=== PATIENT | female | born 1960 | race Caucasian/White ===

== ENCOUNTER 2024-08-19 13:23 | Inpatient (IN) | payer OTHER, SELFPAY ==
[2024-08-19 13:25] VITALS: BP 119/79; PULSE 82; RESP 16; TEMP 37.1; O2SAT 96; BMI 40.3
--- NOTE | 2024-08-19 13:25 | ED_ITS ---
HPI - Psych General Chief Complaint: Psychiatric Symptoms Stated Complaint: depression Time Seen by Provider: 08/19/24 13:39 Source: patient, RN notes reviewed and old records reviewed Mode of arrival: ambulatory History of Present Illness ED Provider: Shirin Santana PA-C [facility] Narrative: 64-year-old female with a past medical history anxiety, asplenia, bipolar, CVA, COPD on chronic 4L NC, depression, DVT, fibromyalgia, GERD, PE, HLD, HTN, presenting to the ED complaining of increasing depression with suicide ideations and plan to overdose on pills x few weeks. Patient was evaluated at [facility] on 08/15/2024, medically cleared, evaluated by CARDIAC EXERCISE PHYSIOLOGIST and made voluntary inpatient bed search, however was bed searching from home and told to come to [facility] as we have a bed available. Denies homicidal ideations, auditory/visual hallucinations, EtOH or illicit drug use. Related Data Allergies Allergy/AdvReac Type Severity Reaction Status Date / Time Penicillins Allergy Mild RASH Unverified 08/19/24 13:28 Review of Systems Review of Systems: Yes all other systems are reviewed and are negative Constitutional: Constitutional: Reports as per HPI [facility] Past Medical History Attestation statement: The following information was validated with the patient. Source: old records reviewed Social History Social History Advance Directives: Yes Advance Directives Information Provided: Yes Advance Directives on File: No Physical Exam Vital Signs: Vital Signs: Last Vital Signs Temp 98.8 F 08/19/24 13:25 Pulse 82 08/19/24 13:25 Resp 16 08/19/24 13:25 BP 119/79 08/19/24 13:25 Pulse Ox 96 08/19/24 13:25 O2 Del Method Nasal Cannula 08/19/24 13:25 Oxygen Flow Rate 4 08/19/24 13:25 BMI result Body Mass Index 40.3 Const: General: cooperative, healthy appearing and no acute distress Orientation/consciousness: patient oriented x3 Limitations: no limitations HEENT: Head: Yes normal to inspection and Yes atraumatic Ears: hearing grossly normal bilaterally General nose exam: Normal external nose present Face and sinus: Yes normal facial exam Eyes: General: appearance normal, both eyes and all related structures EOM: EOMs intact bilaterally Neck: Neck: Yes normal visual inspection and Yes no meningeal signs Resp: Effort & Inspection: normal respiratory effort and no respiratory distress Auscultation: clear to auscultation bilaterally Cardio: Rate: regular rate Heart sounds: S1 normal heart sound present and S2 normal heart sound present Skin: Rashes: no rashes Wounds: no wounds Neuro: General: patient oriented x3, tone normal, no meningeal signs and CN's II-XI intact bilaterally Cranial nerves: Yes CN's II-XII intact bilaterally Gait exam (Neuro): Normal gait present Extrem: General: Yes normal to inspection Psych: Thought content: Suicidality present, no homicidality and Depressive thoughts present Course Course Course Narrative: This is a rapid medical exam performed by Ree Cummings NP: Additional HPI, ROS, PE not included below will be deferred to primary provider. Patient is a 64-year-old female presenting with complaint of depression. Meds managed by PCP. Admits to thoughts of suicidal ideation, denies homicidal ideation. States has been thinking about often recently. On O2 @ 4lpm at baseline. Plan: patient is expected on [facility] psych unit, chargemaster analyst aware of plan -[id number]-- ED care transferred to [facility] pending Inpatient [facility] transfer Medical Decision Making Medical Decision Making [facility] Narrative: 64-year-old female with a past medical history anxiety, asplenia, bipolar, CVA, COPD on chronic 4L NC, depression, DVT, fibromyalgia, GERD, PE, HLD, HTN, presenting to the ED complaining of increasing depression with suicide ideations and plan to overdose on pills x few weeks. On exam vital signs stable, NAD, nontoxic appearing, + SI with plan, depressed. Patient has [facility] psych bed available on our unit. Medically cleared a few days ago at [facility], records reviewed Laura Tran & agree with medical clearance. Low suspicion for organic causes. Plan: Inpatient admission Physician observation initiated at 13:52 pending patient transfer to inpatient unit Please refer to course for remaining clinical decision making, interpretation of labs/imaging results, and discussions with consultants and/or family members. Differential Diagnosis Differential Diagnoses: The differential diagnosis associated with the presentation includes As above Admission/Observation Consideration of admission/observation: Escalation of care including admission/observation considered Consult Healthcare Provider Management of the patient was discussed with: Behavioral Health Provider Lab Data [facility] Lab Attestation statement: I reviewed the patient's lab results. Independent Historian Clinical information obtained from an independent historian. History obtained from or confirmed by: Other External Record Review External record reviewed: Inpatient record, Office record, Outpatient record, Prior outpatient labs, Prior outpatient radiology, Primary care record and Outside ED record Tests considered The following testing was considered but not selected: As above Social Determinants Patient?s care significantly limited by Social Determinants of Health including: Problems related to primary support group and Other Social Determinant of Health Discharge Plan Discharge Clinical Impression: Suicidal ideation, Depression Patient Disposition: Admitted As Inpatient Print Language: Armenian
[2024-08-19 17:14] VITALS: BP 129/74; PULSE 78; RESP 16; TEMP 5445.5; TEMP 9834; O2SAT 94
[2024-08-19 17:16] VITALS: BMI 38.3
--- OUTSIDE RECORDS SUMMARY | 2024-08-19 17:39 | XMS_ITS | Encounter Summary ---
Author Organization [facility] Address [address] [place] [address] Care Team Providers Care Vibratory Pile Driver Name Role Phone Unavailable Primary Care Provider Unavailabl e Encounter Details Date Type Department Care Team (Latest Contact Info) Description 12/09/2021 Abstract [facility] CONVERSIONS Dental, Provider, DDS Social History Tobacco Use Types Packs/Day Years Used Date Smoking Tobacco: Never Assessed Comments Unknown Sex and Gender Information Value Date Recorded Sex Assigned at Choose not to disclose 3:52 PM EST Legal Sex Female 8:33 PM EDT Gender Identity Choose not to disclose 3 3:52 PM EST Sexual Orientation Choose not to disclose 2022 3:52 PM EST documented as of this encounter Plan of Treatment Not on file documented as of this encounter Visit Diagnoses Not on filedocumented in this encounter
--- OUTSIDE RECORDS SUMMARY | 2024-08-19 17:39 | XMS_ITS | Clinical Summary ---
Author Organization [facility] Address [address] [place] [address] Care Team Providers Care Design Verification Engineer Name Role Phone Unavailable Primary Care Provider Unavailabl e Allergies Active Allergy Reactions Criticality Noted Date Comments Penicillins Rash Low 06/02/2024 Medications ASPIRIN 81 MG chewable tablet 1 tablet in the morning. Active atorvastatin (Lipitor) 80 MG tablet 9 Active bumetanide (Bumex) 1 MG tablet 3 Active FLUoxetine (PROzac) 20 MG capsule Take 20 mg by mouth Once per day. 4 Active gabapentin (Neurontin) 300 MG capsule 7 Active melatonin 3 MG tablet Take by mouth. Activ e metFORMIN (Glucophage) 500 MG tablet Take 500 mg by mouth with breakfast and with evening meal. Active metoprolol succinate XL (Toprol-XL) 25 MG 24 hr tablet 4 Active OXcarbazepine (Trileptal) 300 MG tablet Take 300 mg by mouth 2 times daily. 3 Active pantoprazole (ProtoNix) 40 MG EC tablet Take 40 mg by mouth Once per day. 4 Active potassium chloride ER (Micro-K) 10 MEQ ER capsule Take 10 mEq by mouth 2 times daily. Active QUEtiapine XR (SEROquel XR) 200 MG 24 hr tablet 9 Active traMADol (Ultram) 50 MG tablet Take 50 mg by mouth. 4 Active apixaban (Eliquis) 5 MG tablet Take 5 mg by mouth 2 times daily. Active tiZANidine (Zanaflex) 4 MG capsule Take 4 mg by mouth 3 times daily. Active clonazePAM (KlonoPIN) 1 MG tablet Take by mouth 2 times daily. Active phenazopyridine (Pyridium) 200 MG tablet Take 200 mg by mouth if needed in the morning, at noon, and at bedtime for bladder spasms. Active Encounters Date Type Department Care Team Description 06/02/2024 10:00 AM EST Office Visit [facility] [address] [place] [address] Darleen Adams LLD from Last 3 Months Social History Tobacco Use Types Packs/Day Years Used Date Smoking Tobacco: Never Assessed Comments Unknown Sex and Gender Information Value Date Recorded Sex Assigned at Choose not to disclose 3:52 PM EST Legal Sex Female 8:33 PM EDT Gender Identity Choose not to disclose 3:52 PM EST Sexual Orientation Choose not to disclose 2022 3:52 PM EST Last Filed Vital Signs Vital Sign Reading Time Taken Comments Blood Pressure 112/91 09/07/2021 11:00 AM EDT Pulse - - Temperature - - Respiratory Rate - - Oxygen Saturation - - Inhaled Oxygen Concentration - - Weight - - Height - - Body Mass Index - - Plan of Treatment Health Maintenance Due Date Last Done Comments CT Colonography 1962 Colonoscopy 1962 Colorectal Cancer Screening 1962 Depression Screening 1962 FIT DNA/Cologuard 1962 FIT 1962 FOBT 1962 HIV Screening 1962 Lipid Panel 1962 SDOH Screening 1962 Sigmoidoscopy 1962 Meningococcal B Vaccine (1 of 4 - Increased Risk) 1972 Alcohol/Substance Use Screening 1974 Tobacco Screening 1974 Hepatitis C Screening 1980 Pap Smear 1983 Cervical Cancer Screening 1992 HPV/Cotest 1992 Mammogram 2002 Zoster Vaccines (1 of 2) 2012 Dental X-Ray: Full Mouth 04/16/2015 04/15/2012, 11/23 Dental X-Ray: Bitewings 06/09/2022 06/08/20 21, 04/15/2012, 12/11/2003 Dental Oral Exam 06/11/2022 12/09/2021, , 04/23/2012, Additional history exists Dental Prophylaxis 06/11/2022 12/09/2021, 1 08/09/2020, 04/23/2012 RSV Patients and Patients Aged 60 years or older (1 - Risk 60-74 years 1-dose series) 2022 Meningococcal Vaccine (2 - Risk 2-dose series) 06/29/2023 05/04/2023 COVID-19 Vaccine ( season) 2024 04/05/2023, 04/29/2021, 08/03/2020, Additional history exists Influenza Vaccine (#1) 2024 , 04/04/2022, 04/29/2021, Additional history exists DTaP/Tdap/Td Vaccines (3 - Td or Tdap) 08/09/2028 08/09/2018, 05/12/2008 HIB Vaccines Completed 05/04/2023 Pneumococcal Vaccine: 50+ Years Completed 05/04/2023, 04/21/2017, 06/25/2007 Pneumococcal Vaccine: Pediatrics (0 to 5 Years) and At-Risk Patients (6 to 49) Years) Completed 05/04/2023, 04/21/2017, 06/25/2007 HPV Vaccines Aged Out No longer eligi ble based on patient's age to complete this topic Hepatitis A Vaccines Aged Out No long er eligible based on patient's age to complete this topic Hepatitis B Vaccines Aged Out No long er eligible based on patient's age to complete this topic IPV Vaccines Aged Out No longer eligi ble based on patient's age to complete this topic RSV under 20 months Aged Out No longe r eligible based on patient's age to complete this topic Rotavirus Vaccines Aged Out No longer eligible based on patient's age to complete this topic Procedures Procedure Name Priority Date/Time Associated Diagnosis Comments CASE PRESENTATION, DETAILED AND EXTENSIVE TREATMENT PLANNING Routine 06/02/2024 10:00 AM EST LIMITED ORAL EVALUATION - PROBLEM FOCUSED Routine 06/02/2024 10:00 AM EST PROPHYLAXIS - ADULT Routine 12/09/2021 1 2:00 AM EDT PERIODIC ORAL EVALUATION - ESTABLISHED PATIENT Routine 12/09/2021 12:00 AM EDT BITEWINGS - 2 RADIOGRAPHIC IMAGES Routine 06/08/2021 12:00 AM EST INTRAORAL - COMPLETE SERIES OF RADIOGRAPHIC IMAGES Routine 04/15/2012 12:00 AM EDT from Last 3 Months or Most Recently Relevant to Health Maintenance Insurance [facility] MEDICA[facility] STAND ADULT
--- OUTSIDE RECORDS SUMMARY | 2024-08-19 17:39 | XMS_ITS | Encounter Summary ---
Author Organization [facility] Address [address] [place] [address] Care Team Providers Care Director Of Medical Staff Services Name Role Phone Unavailable Primary Care Provider Unavailabl e Encounter Details Date Type Department Care Team (Latest Contact Info) Description 06/08/2021 Abstract [facility] CONVERSIONS Dental, Provider, DDS Social [...]
--- OUTSIDE RECORDS SUMMARY | 2024-08-19 17:39 | XMS_ITS | Clinical Summary ---
Author Organization [facility] Address [address] [place] [address] Care Team Providers Care Interpretive Program Coordinator Name Role Phone Eleazar Gleason MD Primary Care Provider [phone] Allergies Active Allergy Reactions Criticality Noted Date Comments Ciprofloxacin High 06/28/2021 Other reaction(s): OTHER, Rash Skin peeled off back Penicillins Rash High 12/20/2017 remote Sertraline 12/31/2022 Medications Medication Sig Dispensed Refills Start Date End Date Status triamcinolone (KENALOG) 0.5 % cream 0 Active traMADol (ULTRAM) 50 MG tablet Take 50 mg by mouth. 0 01/09/2024 Ac tive terconazole (TERAZOL 3) 0.8 % vaginal cream Insert 1 applicatorful every day by vaginal route as directed for 7 days. 0 Active sucralfate (CARAFATE) 1 g tablet 0 Active QUEtiapine (SEROquel XR) 200 MG 24 hr tablet 0 05/09/2023 Active potassium chloride (MICRO-K) 10 MEQ CR capsule Take 1 capsule (10 mEq total) by mouth. 0 Active polyethylene glycol (GLYCOLAX) 17 GM/SCOOP powder Take 17 g by mouth. 0 11/07/2023 Active pantoprazole (PROTONIX) 40 MG tablet Take 1 tablet (40 mg total) by mouth daily. 0 11/07/2023 Active OXcarbazepine (TRILEPTAL) 300 MG tablet Take 1 tablet (300 mg total) by mouth 2 (two) times a day. 0 01/09/2024 Active nicotine (NICODERM CQ) 21 MG/24HR Place 1 patch onto the skin. 0 11/07/2023 Active metoprolol succinate (TOPROL-XL) 24 hr tablet 25 mg 0 01/09/2024 Active melatonin 3 MG TABS tablet Take by mouth. 0 Active LORazepam (ATIVAN) 1 MG tablet 0 11/06/2023 Active gabapentin (NEURONTIN) 300 MG capsule 0 08/07/2022 Active Fluticasone-Umeclid in-Vilant (Trelegy Ellipta) 100-62.5-25 MCG/ACT AEPB INHALE 1 PUFF INTO THE LUNGS EVERY 24 HOURS. DOSES SHOULD BE TAKEN AT LEAST 24 HOURS APART. 0 09/05/2023 Active acetaminophen (TYLENOL EXTRA STRENGTH) 500 MG tablet Take 1 tablet (500 mg total) by mouth every 6 (six) hours as needed. 0 Active albuterol (Ventolin HFA) 108 (90 Base) MCG/ACT inhaler 0 Active apixaban (Eliquis) 5 MG TABS tablet 0 05/09/2023 Active Aspirin 81 MG CAPS Take 81 mg by mouth. 0 01/09/2024 Active atorvastatin (LIPITOR) tablet 80 mg 0 04/23/2019 Active bumetanide (BUMEX) 1 MG tablet 0 10/19/2022 Active Cholecalciferol 50 MCG (2000 UT) TABS Take by mouth. 0 Ac tive divalproex (DEPAKOTE) 500 MG 24 hr tablet Take 1 tablet (500 mg total) by mouth every night at bedtime. 0 Active FLUoxetine (PROzac) 20 MG capsule Take 1 capsule (20 mg total) by mouth daily. 0 07/29/2023 Active metFORMIN (GLUCOPHAGE) tablet 500 mg Take 1 tablet (500 mg total) by mouth 2 (two) times a day with meals. 0 Active Active Problems Problem Noted Date Diagnosed Date Iron deficiency anemia, unspecified 04/14/2024 Social History Tobacco Use Types Packs/Day Years Used Date Smoking Tobacco: Never Assessed Sex and Gender Information Value Date Recorded Sex Assigned at Not on file Gender Identity Not on file Sexual Orientation Not on file Job Start Date Occupation Industry Not on file Not on file Not on file Last Filed Vital Signs Vital Sign Reading Time Taken Comments Blood Pressure 143/78 04/18/2024 11:10 AM EDT Pulse 88 04/18/2024 11:10 AM EDT Temperature 36.3 ??C (97.3 ??F) 04/18/2024 11:10 AM E DT Respiratory Rate 18 04/18/2024 11:10 AM EDT Oxygen Saturation 96% 04/18/2024 11:10 AM EDT Inhaled Oxygen Concentration - - Weight - - Height - - Body Mass Index - - Plan of Treatment Health Maintenance Due Date Last Done Comments Hepatitis C Screening 1962 COVID-19 Vaccine (#1) 01/05/1963 Depression Screening 1974 Preventative Health Evaluation 1980 Cervical Cancer Screening (Pap Smear) 1983 Colon Cancer Screening (Colonoscopy) 2007 Breast Cancer Screening (Mammogram) 2012 Shingrix-Zoster Vaccine (1 of 2) 2012 DTap / Tdap / Td (2 - Td or Tdap) 05/12/2018 05/12/2008 Influenza Vaccine (#1) 2024 3, 04/04/2022, 04/29/2021, Additional history exists RSV Adult > 60+ Yrs or (1 - 1-dose 75+ series) 2037 Pneumococcal Vaccine Aged Out 05/04/2023, 04/21/2017, 06/25/2007 No longer eligible based on patient's age to complete this topic Hepatitis B Vaccines Aged Out No long er eligible based on patient's age to complete this topic RSV Ped < 20 months Aged Out No longe r eligible based on patient's age to complete this topic Care Teams Interpretive Program Coordinator Relationship Specialty Start Date End Date Eelazar Gleason MD PCP - General Rheumatology 04/11/24
--- OUTSIDE RECORDS SUMMARY | 2024-08-19 17:40 | XMS_ITS ---
Author Organization [facility] Address [address] [place] [address] Care Team Providers Care Hospitality Workers Name Role Phone Dede Pimentel OR FIRST ASSIST REGISTERED NURSE Primary Care Provider [phone] Program of [facility] the Elderly Status:Enrolled (Active) Start date:09/24/2023 Enrollment date:09/24/2023 Related social drivers of health:Housing Instability, Financial Risk, Transportation, Social Isolation, Food Risk Overview This episode will track PACE documentation. Case Team Name Relationship Phone Dede Pimentel OR FIRST ASSIST REGISTERED NURSE Nurse Practitioner [phone] Reji Weems Recreational Therapist Sandy Keith RN Frame Table Operator Jesi Larkin RN Specialty Cook Horace Nagy RD Dietitian Arnav Thomas PT Physical Therapist Ady Briseno [facility] Mariah Le Pan Puller Priyanka Duarte OT Occupational Therapist Charisse Ramos RN Registered Nurse Yaritza Oden MD Primary Care Provider [phone] Continued Care and Services Coordination
--- OUTSIDE RECORDS SUMMARY | 2024-08-19 17:40 | XMS_ITS | Encounter Summary ---
Author Organization [facility] Address [address] [place] [address] Care Team Providers Care Director Of Safety Name Role Phone Eleazar Gleason MD Primary Care Provider [phone]- [phone] Encounter Details Date Type Department Care Team (Latest Contact Info) Description 04/14/2024 10:30 AM EDT Hospital Encounter TH HISTORIC ENCOUNTERS EASTERN CONVERSION ONLY Iron deficiency anemia, unspecified Social History Tobacco Use Types Packs/Day Years Used Date Smoking Tobacco: Every Day Smokeless Tobacco: Never Comments:Packs per day : 6 Calculated quantity/packs per year: 2190 Alcohol Use Standard Drinks/Week Comments Not Currently 1 (1 standard drink = 0.6 oz pur e alcohol) Comments Unknown Sex and Gender Information Value Date Recorded Sex Assigned at Not on file Legal Sex Female 11:06 AM EDT Gender Identity Not on file Sexual Orientation Not on file documented as of this encounter Progress Notes [...] appetite for lunch. Aware of 30minute post internal medicine nurse observation period for first infusion. 1300 - Observation period completed - patient with no issues noted - IV flushed and removed intact - patient has next appt in place. Stable upon discharge - [employer] van here for ride home. documented in this encounter Plan of Treatment Upcoming Encounters Date Type Department Care Team (Late st Contact Info) Description 08/25/2024 9:00 AM EST PACE Attendance/Day Center [facility] [address] [place] [phone] 08/27/2024 9:00 AM EST [facility] Attend[facility] [place] [facility] [address] [place] [phone] 09/01/2024 9:00 AM EDT PACE Attendance[facility] [facility] [place] [facility] [address] [place] [phone] 09/03/2024 9:00 AM EDT [facility] [place] [facility] [address] [place] [phone] 09/08/2024 9:00 AM EDT PACE Attendance/[facility] [place] [facility] [place] [facility] [address] [place] [phone] 09/10/2024 9:00 AM EDT PACE Attendance[facility] [place] [facility] [address] [place] [phone] 09/15/2024 9:00 AM EDT PACE Attendance/Day [facility] [place] [facility] [address] [place] [phone] 09/17/2024 9:00 AM EDT PACE Attendance/Day Center [facility] [address] [place] [phone] 09/22/2024 9:00 AM EDT [facility] [address] [place] [phone] 09/24/2024 9:00 AM EDT [facility] Day Center [address] [place] [address] 09/29/2024 9:00 AM EDT PACE Attendance/Day Center [facility] Day [facility] [address] [place] [address] 09/29/2024 11:00 AM EDT Appointment [facility] CT Scan [address] [place] [address] 10/01/2024 9:00 AM EDT PACE Attendance/Day Center [facility] Day [facility] [address] [place] [address] 10/06/2024 9:00 AM EDT [facility] Day Center [address] [place] [address] 10/06/2024 11:00 AM EDT Appointment [facility] Ultrasound [address] [place] [address] 10/08/2024 9:00 AM EDT [facility] Day Center [address] [place] [address] 10/13/2024 9:00 AM EDT [facility] Day Center [address] [place] [address] 10/15/2024 9:00 AM EDT [facility] Day Center [address] [place] [address] 10/20/2024 9:00 AM EDT PACE Attendance/Day Center [facility] Day Center [address] [place] [address] 10/22/2024 9:00 AM EDT PACE Attendance[facility] [place] [facility] [address] [place] [address] 10/27/2024 9:00 AM EDT P[facility] Attend[facility] [place] [facility] [address] [place] [phone] 10/29/2024 9:00 AM EDT [facility] [place] [facility] [address] [place] [phone] 11/03/2024 9:00 AM EDT [facility] [place] [facility] [address] [place] [phone] 11/05/2024 9:00 AM EDT [facility] [place] [facility] [address] [place] [phone] 11/10/2024 9:00 AM EDT [facility] [place] [facility] [address] [place] [phone] 11/10/2024 9:45 AM EDT Office Visit [facility] [address] [place] [phone] Gemini Simmons MD [address] [facility] [address] [place] [phone] 11/12/2024 9:00 AM EDT PACE Attendance/Day Center [facility] [address] [place] [phone] 11/17/2024 9:00 AM EDT PACE Attendance/Day Center [facility] [address] [place] [phone] 11/19/2024 9:00 AM EDT P[facility] Attendance[facility] [place] [facility] [address] [place] [phone] 11/24/2024 9:00 AM EDT P[facility] Attendance[facility] [place] [facility] [address] [place] [address] 11/26/2024 9:00 AM EDT P[facility] Attendance[facility] [place] [facility] [address] [place] [address] 12/01/2024 9:00 AM EDT [facility] [place] [facility] [address] [place] [phone] 12/03/2024 9:00 AM EDT [facility] Att[facility] [place] [facility] [address] [place] [phone] 12/08/2024 9:00 AM EDT [facility] Att[facility] [place] [facility] [address] [place] [phone] 12/10/2024 9:00 AM EDT [facility] Att[facility] [place] [facility] [address] [place] [phone] 12/15/2024 9:00 AM EDT [facility] Att[facility] [place] [facility] [address] [place] [phone] 12/17/2024 9:00 AM EDT [facility] [place] [facility] [address] [place] [phone] 12/22/2024 9:00 AM EDT [facility] Att[facility] [place] [facility] [address] [place] [phone] 12/24/2024 9:00 AM EDT [facility] Att[facility] [place] [facility] [address] [place] [phone] 12/29/2024 9:00 AM EDT [facility] Att[facility] [place] [facility] [address] [place] [phone] 12/31/2024 9:00 AM EDT P[facility] Attendance[facility] [place] [facility] [facility] [address] [place] [address] 01/05/2025 9:00 AM EDT [facility] [place] [facility] [facility] [address] [place] [address] 01/07/2025 9:00 AM EDT [facility] [place] [facility] [address] [place] [address] 01/12/2025 9:00 AM EDT [facility] Att[facility] [place] [facility] [address] [place] [address] 01/14/2025 9:00 AM EDT [facility] Attend[facility] [place] [facility] [facility] [address] [place] [address] 01/19/2025 9:00 AM EDT [facility] [place] [facility] [address] [place] [phone] 01/21/2025 9:00 AM EDT [facility] Att[facility] [place] [facility] [address] [place] [phone] 01/26/2025 9:00 AM EDT [facility] [place] [facility] [address] [place] [phone] 01/28/2025 9:00 AM EDT [facility] Att[facility] [place] [facility] [address] [place] [phone] 02/02/2025 9:00 AM EDT [facility] Att[facility] [place] [facility] [address] [place] [phone] 02/04/2025 9:00 AM EDT [facility] Attend[facility] [place] [facility] [address] [place] [phone] 02/09/2025 9:00 AM EDT [facility] Attend[facility] [place] [facility] [address] [place] [phone] 02/11/2025 9:00 AM EDT [facility] Attend[facility] [place] [facility] [address] [place] [phone] 02/16/2025 9:00 AM EDT [facility] Att[facility] [place] [facility] [address] [place] [phone] 02/18/2025 9:00 AM EDT [facility] Attend[facility] [place] [facility] [address] [place] [phone] 02/23/2025 9:00 AM EDT [facility] Attend[facility] [place] [facility] [address] [place] [phone] 02/25/2025 9:00 AM EDT [facility] Attend[facility] [place] [facility] [address] [place] [phone] 03/02/2025 9:00 AM EDT [facility] Attend[facility] [place] [facility] [address] [place] [phone] 03/04/2025 9:00 AM EDT [facility] Att[facility] [place] [facility] [address] [place] [phone] 03/09/2025 9:00 AM EDT [facility] Attend[facility] [place] [facility] [address] [place] [phone] 03/11/2025 9:00 AM EDT [facility] Attend[facility] [place] [facility] [address] [place] [phone] 03/16/2025 9:00 AM EDT [facility] Attend[facility] [place] [facility] [address] [place] [phone] 03/18/2025 9:00 AM EDT [facility] Attend[facility] [place] [facility] [address] [place] [phone] 03/23/2025 9:00 AM EDT [facility] Attendance[facility] [place] [facility] [address] [place] [address] 03/25/2025 9:00 AM EDT [facility] Attend[facility] [place] [facility] [address] [place] [address] 03/30/2025 9:00 AM EDT [facility] Attend[facility] [place] [facility] [address] [place] [phone] 04/01/2025 9:00 AM EDT [facility] Att[facility] [place] [facility] [address] [place] [phone] 04/06/2025 9:00 AM EDT [facility] Attend[facility] [place] [facility] [address] [place] [phone] 04/08/2025 9:00 AM EDT [facility] Attend[facility] [place] [facility] [address] [place] [phone] 04/13/2025 9:00 AM EDT [facility] Attend[facility] [place] [facility] [address] [place] [phone] 04/15/2025 9:00 AM EDT [facility] Attend[facility] [place] [facility] [address] [place] [phone] 04/20/2025 9:00 AM EDT [facility] Attend[facility] [place] [facility] [address] [place] [phone] 04/22/2025 9:00 AM EDT [facility] Attend[facility] [place] [facility] [address] [place] [phone] 04/27/2025 9:00 AM EST P[facility] Attendance[facility] [place] [facility] [address] [place] [phone] 04/29/2025 9:00 AM EST P[facility] Attendance[facility] [place] [facility] [address] [place] [address] 05/04/2025 9:00 AM EST [facility] Attend[facility] [place] [facility] [facility] [address] [place] [address] 05/06/2025 9:00 AM EST P[facility] Attend[facility] [place] [facility] [facility] [address] [place] [address] 05/11/2025 9:00 AM EST P[facility] Att[facility] [place] [facility] [address] [place] [phone] 05/13/2025 9:00 AM EST [facility] [place] [facility] [address] [place] [phone] 05/18/2025 9:00 AM EST P[facility] Attend[facility] [place] [facility] [address] [place] [phone] 05/20/2025 9:00 AM EST P[facility] Attend[facility] [place] [facility] [address] [place] [phone] 05/25/2025 9:00 AM EST P[facility] Attend[facility] [place] [facility] [address] [place] [phone] 05/27/2025 9:00 AM EST P[facility] Attend[facility] [place] [facility] [address] [place] [phone] 06/01/2025 9:00 AM EST P[facility] Att[facility] [place] [facility] [address] [place] [phone] 06/03/2025 9:00 AM EST P[facility] Att[facility] [place] [facility] [address] [place] [phone] 06/08/2025 9:00 AM EST [facility] [place] [facility] [address] [place] [address] 06/10/2025 9:00 AM EST P[facility] Attendance[facility] [place] [facility] [facility] [address] [place] [address] 06/15/2025 9:00 AM EST P[facility] Attend[facility] [place] [facility] [address] [place] [address] 06/17/2025 9:00 AM EST P[facility] Attend[facility] [place] [facility] [address] [place] [address] 06/22/2025 9:00 AM EST [facility] Attend[facility] [place] [facility] [address] [place] [phone] 06/24/2025 9:00 AM EST [facility] Att[facility] [place] [facility] [address] [place] [phone] 06/29/2025 9:00 AM EST [facility] Att[facility] [place] [facility] [address] [place] [phone] 07/01/2025 9:00 AM EST [facility] Att[facility] [place] [facility] [address] [place] [phone] 07/06/2025 9:00 AM EST [facility] Att[facility] [place] [facility] [address] [place] [phone] 2025 9:00 AM EST [facility] Attend[facility] [place] [facility] [address] [place] [phone] 07/13/2025 9:00 AM EST [facility] Attend[facility] [place] [facility] [address] [place] [address] 07/15/2025 9:00 AM EST [facility] Attend[facility] [place] [facility] [address] [place] [address] 07/20/2025 9:00 AM EST [facility] [place] [facility] [address] [place] [phone] 07/22/2025 9:00 AM EST P[facility] Attendance[facility] [place] [facility] [address] [place] [phone] 07/27/2025 9:00 AM EST [facility] [place] [facility] [address] [place] [phone] 07/29/2025 9:00 AM EST [facility] [address] [address] 08/03/2025 9:00 AM EST [facility] [address] [phone] documented as of this encounter Procedures Procedure Name Priority Date/Time Associated Diagnosis Comments ..MISCELLANEOUS REFERENCE LAB TEST 04/14/2024 documented in this encounter Results * Miscellaneous reference lab test (04/14/2024) us Provider Onbase LAB BLOOD ORDERABLES Final Re sult documented in this encounter Visit Diagnoses Diagnosis Iron deficiency anemia, unspecified documented in this encounter Care Teams Director Of Safety Relationship Specialty Start Date End Date Eleazar Gleason MD [phone] [address] PCP - General 04/11/24 05/01/24 documented as of this encounter
--- OUTSIDE RECORDS SUMMARY | 2024-08-19 17:40 | XMS_ITS | Encounter Summary ---
Author Organization [facility] Address [address] [place] [address] Care Team Providers Care Bus And Rail Operator Name Role Phone Eleazar Gleason MD Primary Care Provider [phone] Encounter Details Date Type Department Care Team (Late Contact Info) Description 04/16/2024 11:39 AM EDT Hospital Encounter TH HISTORIC ENCOUNTERS EASTERN CONVERSION ONLY Wale Pimentel, TAYA [address] [facility] [address] [place] [address] Social History Tobacco Use Types Packs/Day Years [...] on file documented as of this encounter Plan of Treatment Upcoming Encounters Date Type Department Care Team (Late Contact Info) Description 08/25/2024 9:00 AM EST PACE Attendance/Day Center [employer] [facility] [address] [place] [phone] 08/27/2024 9:00 AM EST PACE Attendance/Day Center [employer] [facility] [address] [place] [address] 09/01/2024 9:00 AM EDT PACE Attendance/Day Center [facility] [place] [facility] [address] [place] [address] 09/03/2024 9:00 AM EDT [facility] [place] [facility] [address] [place] [address] 09/08/2024 9:00 AM EDT [facility] [address] [place] [address] 09/10/2024 9:00 AM EDT [facility] [place] [facility] [address] [place] [phone] 09/15/2024 9:00 AM EDT [facility] [address] [place] [phone] 09/17/2024 9:00 AM EDT [facility] [address] [place] [phone] 09/22/2024 9:00 AM EDT [facility] [place] [facility] [address] [place] [phone] 09/24/2024 9:00 AM EDT [facility] [place] [facility] [address] [place] [phone] 09/29/2024 9:00 AM EDT [facility] [place] [facility] [address] [place] [address] 09/29/2024 11:00 AM EDT Appointment [facility] CT Scan [address] [place] [address] 10/01/2024 9:00 AM EDT [facility] [place] [facility] [address] [place] [phone] 10/06/2024 9:00 AM EDT [facility] [place] [facility] [address] [place] [address] 10/06/2024 11:00 AM EDT Appointment [address] [phone] 10/08/2024 9:00 AM EDT [facility] [address] [place] [phone] 10/13/2024 9:00 AM EDT [facility] [place] [facility] [address] [place] [address] 10/15/2024 9:00 AM EDT [facility] [address] [place] [phone] 10/20/2024 9:00 AM EDT [facility] [address] [place] [phone] 10/22/2024 9:00 AM EDT [facility] [place] [facility] [address] [place] [phone] 10/27/2024 9:00 AM EDT [facility] [place] [facility] [address] [place] [phone] 10/29/2024 9:00 AM EDT [facility] [place] [facility] [address] [place] [phone] 11/03/2024 9:00 AM EDT [place] Att[place] [employer] [facility] [place] [facility] [address] [place] [phone] 11/05/2024 9:00 AM EDT [place] [employer] [facility] [place] [facility] [address] [place] [phone] 11/10/2024 9:00 AM EDT [facility] [place] [facility] [address] [place] [phone] 11/10/2024 9:45 AM EDT Office Visit [facility] [address] [place] [address] Gemini Simmons MD [address] [facility] [address] [place] [address] 11/12/2024 9:00 AM EDT PACE Attendance/[place] [employer] [facility] [place] [facility] [address] [place] [phone] 11/17/2024 9:00 AM EDT [facility] [place] [facility] [address] [place] [phone] 11/19/2024 9:00 AM EDT [facility] [place] [facility] [address] [place] [phone] 11/24/2024 9:00 AM EDT [facility] [place] [facility] [address] [place] [phone] 11/26/2024 9:00 AM EDT [facility] [place] [facility] [address] [place] [phone] 12/01/2024 9:00 AM EDT [facility] [place] [facility] [address] [place] [phone] 12/03/2024 9:00 AM EDT [facility] [place] [facility] [address] [place] [phone] 12/08/2024 9:00 AM EDT [facility] [place] [facility] [address] [place] [phone] 12/10/2024 9:00 AM EDT [facility] [place] [facility] [address] [place] [phone] 12/15/2024 9:00 AM EDT PACE Attendance/[facility] [place] [facility] [place] [facility] [address] [place] [address] 12/17/2024 9:00 AM EDT P[facility] Attendance[facility] [facility] [place] [facility] [address] [place] [address] 12/22/2024 9:00 AM EDT [facility] Attendance[facility] [place] [facility] [place] [facility] [address] [place] [address] 12/24/2024 9:00 AM EDT [facility] Att[facility] [place] [facility] [place] [facility] [address] [place] [phone] 12/29/2024 9:00 AM EDT [facility] Att[facility] [facility] [place] [facility] [address] [place] [phone] 12/31/2024 9:00 AM EDT P[facility] Att[facility]ance[facility] [facility] [place] [facility] [address] [place] [phone] 01/05/2025 9:00 AM EDT P[facility] Attendance[facility] [place] [facility] [address] [place] [phone] 01/07/2025 9:00 AM EDT [facility] Att[facility] [place] [facility] [place] [facility] [address] [place] [phone] 01/12/2025 9:00 AM EDT [facility] Att[facility] [place] [facility] [address] [place] [address] 01/14/2025 9:00 AM EDT P[facility] Attendance[facility] [place] [facility] [address] [place] [address] 01/19/2025 9:00 AM EDT [facility] Att[facility] [place] [facility] [place] [facility] [address] [place] [phone] 01/21/2025 9:00 AM EDT P[facility] Attendance[facility] [place] [facility] [address] [place] [address] 01/26/2025 9:00 AM EDT P[facility] Attendance[facility] [place] [facility] [place] [facility] [address] [place] [address] 01/28/2025 9:00 AM EDT P[facility] Attend[facility] [place] [facility] [place] [facility] [address] [place] [address] 02/02/2025 9:00 AM EDT [facility] Att[facility] [facility] [place] [facility] [address] [place] [phone] 02/04/2025 9:00 AM EDT PACE Attendance[facility] [facility] [place] [facility] [address] [place] [address] 02/09/2025 9:00 AM EDT P[facility] Attendance[facility] [place] [facility] [place] [facility] [address] [place] [phone] 02/11/2025 9:00 AM EDT P[facility] Attend[facility] [place] [facility] [place] [facility] [address] [place] [phone] 02/16/2025 9:00 AM EDT P[facility] Attendance[facility] [facility] [place] [facility] [address] [place] [phone] 02/18/2025 9:00 AM EDT P[facility] Attend[facility] [place] [facility] [place] [facility] [address] [place] [address] 02/23/2025 9:00 AM EDT P[facility] Attendance[facility] [place] [facility] [address] [place] [address] 02/25/2025 9:00 AM EDT P[facility] Att[facility] [place] [facility] [address] [place] [address] 03/02/2025 9:00 AM EDT PACE Attendance[facility] [place] [facility] [place] [facility] [address] [place] [address] 03/04/2025 9:00 AM EDT PACE Attendance[facility] [place] [facility] [place] [facility] [address] [place] [address] 03/09/2025 9:00 AM EDT P[facility] Attendance[facility] [place] [facility] [place] [facility] [address] [place] [address] 03/11/2025 9:00 AM EDT P[facility] Attend[facility] [place] [facility] [place] [facility] [address] [place] [phone] 03/16/2025 9:00 AM EDT P[place] Attendance[facility] [facility] [place] [facility] [address] [place] [address] 03/18/2025 9:00 AM EDT P[facility] Attendance[facility] [facility] [place] [facility] [address] [place] [address] 03/23/2025 9:00 AM EDT PACE Attendance[facility] [facility] [place] [facility] [address] [place] [phone] 03/25/2025 9:00 AM EDT P[place] Attendance[facility] [facility] [place] [facility] [address] [place] [phone] 03/30/2025 9:00 AM EDT PACE Attendance[facility] [facility] [place] [facility] [address] [place] [address] 04/01/2025 9:00 AM EDT P[facility] Attendance[facility] [place] [facility] [address] [place] [address] 04/06/2025 9:00 AM EDT P[facility] Attend[facility] [place] [facility] [address] [place] [phone] 04/08/2025 9:00 AM EDT P[facility] Attend[facility] [place] [facility] [address] [place] [address] 04/13/2025 9:00 AM EDT PACE Attendance[facility] [place] [facility] [address] [place] [address] 04/15/2025 9:00 AM EDT PACE Attendance[facility] [place] [facility] [address] [place] [address] 04/20/2025 9:00 AM EDT P[facility] Attend[facility] [place] [facility] [address] [place] [address] 04/22/2025 9:00 AM EDT P[facility] Attendance[facility] [place] [facility] [address] [place] [address] 04/27/2025 9:00 AM EST PACE Attendance[facility] [place] [facility] [address] [place] [address] 04/29/2025 9:00 AM EST P[facility] Attend[facility] [place] [facility] [place] [facility] [address] [place] [address] 05/04/2025 9:00 AM EST P[facility] Attend[facility] [place] [facility] [address] [place] [phone] 05/06/2025 9:00 AM EST PACE Attendance[facility] [place] [facility] [address] [place] [address] 05/11/2025 9:00 AM EST PACE Attendance[facility] [place] [facility] [address] [place] [address] 05/13/2025 9:00 AM EST PACE Attendance[facility] [place] [facility] [place] [facility] [address] [place] [address] 05/18/2025 9:00 AM EST PACE Attendance[facility] [place] [facility] [address] [place] [address] 05/20/2025 9:00 AM EST PACE Attendance[facility] [place] [facility] [address] [place] [address] 05/25/2025 9:00 AM EST P[facility] Attend[facility] [place] [facility] [place] [facility] [address] [place] [phone] 05/27/2025 9:00 AM EST PACE Attend[facility] [place] [facility] [place] [facility] [address] [place] [phone] 06/01/2025 9:00 AM EST P[facility] Attend[facility] [place] [facility] [place] [facility] [address] [place] [address] 06/03/2025 9:00 AM EST [facility] [place] [facility] [address] [place] [address] 06/08/2025 9:00 AM EST PACE Attendance[facility] [place] [facility] [place] [facility] [address] [place] [phone] 06/10/2025 9:00 AM EST PACE Attend[facility] [place] [facility] [address] [place] [address] 06/15/2025 9:00 AM EST P[facility] Attend[facility] [place] [facility] [address] [place] [address] 06/17/2025 9:00 AM EST PACE Attend[facility] [place] [facility] [place] [facility] [address] [place] [phone] 06/22/2025 9:00 AM EST P[facility] Attend[facility] [place] [facility] [address] [place] [phone] 06/24/2025 9:00 AM EST P[facility] Attend[facility] [place] [facility] [address] [place] [phone] 06/29/2025 9:00 AM EST PACE Attendance[facility] [place] [facility] [address] [place] [address] 07/01/2025 9:00 AM EST PACE Attendance[facility] [place] [facility] [address] [place] [address] 07/06/2025 9:00 AM EST P[facility] Attend[facility] [place] [facility] [address] [place] [address] 2025 9:00 AM EST PACE Attendance[facility] [place] [facility] [address] [place] [address] 07/13/2025 9:00 AM EST P[facility] Att[facility] [place] [facility] [address] [place] [phone] 07/15/2025 9:00 AM EST P[facility] Attend[facility] [place] [facility] [place] [facility] [address] [place] [address] 07/20/2025 9:00 AM EST PACE Attend[facility] [place] [facility] [address] [place] [address] 07/22/2025 9:00 AM EST P[facility] Attend[facility] [place] [facility] [place] [facility] [address] [place] [phone] 07/27/2025 9:00 AM EST PACE Attend[facility] [place] [facility] [address] [place] [address] 07/29/2025 9:00 AM EST PACE Attendance[facility] [place] [facility] [address] [place] [address] 08/03/2025 9:00 AM EST PACE Attend[facility] [place] [facility] [address] [place] [address] documented as of this encounter Procedures Procedure [...] PM EDT Narrative 04/16/2024 3:54 PM EDT [facility] Diagnostic Imaging Department [address] [place] [address] Patient: ??LUCILA GRFIFITHS ?/Age/Sex: 1960 - 63 - F Unit#: ??[id number] ? Location/Status: ??SPDIGEN/REG CLI ? Mnemonic/Ordering Site: ??SPINCERFLX/SPDI Ordering Physician: ??WALE PIMENTEL CR Spine Cervica W Obl Flex [...] C3-4 due to facet hypertrophy. Dictating Physician: ??BERTA MOCK MD Electronically Signed by: ??BERTA MOCK MD Dic Date/Time: ??04/16/24 1549 Sign date/Time: ??04/16/24 1557 Procedure Note Berta Mock MD - 04/22/2024 [facility] Diagnostic Imaging Department [address] [place] [address] Patient: LUCILA GRIFFITHS D.O.B./Age/Sex: 1960 - 63 - F Unit#: [id number] Location/Status: SPDIGEN/REG CLI Mnemonic/Ordering Site: SPINCERFLX/SPDI Ordering [...] Date/Time: 04/16/24 1549 Sign date/Time: 04/16/24 1554 us Wale Pimentel NP IMG XR PROCEDURES Final Resul t * CR SHOULDER LT MIN 2 VIEW (04/16/2024 3:49 PM EDT) Anatomical Region Laterality Modality Radiographic Edith ging 04/16/2024 12:2 2 PM EDT Narrative 04/16/2024 3:49 PM EDT [facility] Diagnostic Imaging Department [address] [place] [address] Patient: ??LUCILA GRIFFITHS ?/Age/Sex: 1960 - 63 - F Unit#: ??[id number] ? Location/Status: ??SPDIGEN/REG CLI ? Mnemonic/Ordering Site: ??SHOULDLT/SPDI Ordering Physician: ??WALE PIMENTEL CR Shoulder LT Min 2 View [...] No evidence of fracture. 2. Calcific tendinitis. [id number] Dictating Physician: ??BERTA MOCK MD Electronically Signed by: ??BERTA MOCK MD Dic Date/Time: ??04/16/24 1548 Sign date/Time: ??04/16/24 1549 Procedure Note Berta Mock MD - 04/22/2024 [facility] Diagnostic Imaging Department [address] [place], [place] [id number] Patient: DOMTYSONLUCILA Pichardo /Age/Sex: 1960 - 63 - F Unit#: [id number] Location/Status: SPDIGEN/REG CLI Mnemonic/Ordering Site: SHOULDLT/SPDI Ordering [...] No evidence of fracture. 2. Calcific tendinitis. [id number] Dictating Physician: BERTA MOCK MD Electronically Signed by: BERTA MOCK MD Dic Date/Time: 04/16/241547 Sign date/Time: 04/16/241548 Wale Pimentel ENGINEER CHIEF IMG XR PROCEDURES Final Resul t documented in this encounter Visit Diagnoses Not on filedocumented in this encounter Care Teams Bus And Rail Operator Relationship Specialty Start Date End Date Eleazar Gleason MD [address] [address] PCP - General 04/11/24 05/01/24 documented as of this encounter
--- OUTSIDE RECORDS SUMMARY | 2024-08-19 17:41 | XMS_ITS | Clinical Summary ---
Author Organization [facility] Address [address] [place] [address] Care Team Providers Care Sanitary Aide Name Role Phone Wale Pimentel FOUNDER / CEO Primary Care Provider [phone] Allergies Active Allergy Reactions Criticality Noted Date Comments Ciprofloxacin Other High 06/28/2021 Skin peeled off back Other reaction(s): OTHER, Rash Skin peeled off back Penicillins Rash High 12/20/2017 remote Sertraline 12/31/2022 Medications acetaminophen (TYLENOL) 500 mg tablet Take 1 tablet (500 mg total) by mouth every 6 hours as needed. Active albuterol HFA (PROAIR HFA ; PROVENTIL HFA ; VENTOLIN HFA) 90 mcg/actuation inhaler 2 inhalation inhaled 4 times per day prn shortness of breath or wheezing Active apixaban (ELIQUIS) 5 mg tablet 1 tab by mouth 2 times per day 3 Active aspirin 81 mg chewable tablet 1 tab chewed in the mouth daily 4 Active atorvastatin (LIPITOR) 80 mg tablet 1 tab by mouth every day at bedtime 9 Active bumetanide (BUMEX) 1 mg tablet 3 Active cholecalcifero l (VITAMIN D-3) 50 mcg (2,000 unit) tablet 3 tabs by mouth daily Active cyclobenzaprin e (FLEXERIL) 10 mg tablet Take 1 tablet (10 mg total) by mouth 3 (three) times a day if needed. Active FLUoxetine (PROzac) 20 mg capsule Take 1 capsule (20 mg total) by mouth 1 (one) time each day. 4 Active fluticasone-um eclidinium-bernardo anterol (Trelegy Ellipta) 100-62.5-25 mcg inhaler INHALE 1 PUFF INTO THE LUNGS EVERY 24 HOURS. DOSES SHOULD BE TAKEN AT LEAST 24 HOURS APART. 4 Active gabapentin (NEURONTIN) 300 mg capsule 3 Active ipratropium-al buteroL (DUONEB) 0.5-2.5 mg/3 mL nebulizer solution Inhale 3 mL by mouth. 4 Active lactulose (CHRONULAC) solution Take by mouth. 4 Active LORazepam (ATIVAN) 1 mg tablet 4 Active melatonin 3 mg tablet 1 tab by mouth every day at bedtime Active metoprolol succinate (TOPROL-XL) 25 mg 24 hr tablet 1 tab by mouth daily 4 Active nicotine (NICODERM CQ) 21 mg/24 hr 1 patch onto the skin every 24 hours, in a.m. 4 Active OXcarbazepine (TRILEPTAL) 300 mg tablet Take 1 tablet (300 mg total) by mouth 2 (two) times a day. 4 Active pantoprazole (PROTONIX) 40 mg EC tablet Take 1 tablet (40 mg total) by mouth 1 (one) time each day. 4 Active polyethylene glycol (MIRALAX) 17 gram packet Take 17 g by mouth daily. 4 Active QUEtiapine (SEROquel) 200 mg tablet Take 1 tablet (200 mg total) by mouth 2 (two) times a day. Active potassium chloride (MICRO-K) 10 mEq CR capsule 1 tab by mouth 2 times per day Active guaiFENesin (MUCINEX) 600 mg 12 hr tablet Take 2 tablets (1,200 mg total) by mouth 2 (two) times a day. Active metFORMIN (GLUCOPHAGE) 500 mg tablet 1 tab by mouth 1 time per day in the evening with meals Active clonazePAM (KlonoPIN) 1 mg tablet 1 tab by mouth every 8 hours 5 Active ferrous sulfate 325 mg (65 mg iron) EC tablet 1 tab by mouth every other day 5 Active traMADoL (ULTRAM) 50 mg tablet every morning and early afternoon 4 Active phenazopyridin e (PYRIDIUM) 100 mg tablet Take 1 tablet (100 mg total) by mouth 3 (three) times a day if needed for bladder spasms. Active acetaminophen (TYLENOL) 500 mg tablet 2 tabs by mouth every 8 hours prn pain Active bumetanide (BUMEX) 2 mg tablet 1 tab QAM Active calcium carbonate-marian thicone (Kayli-[place] Heartburn-Gas) 750-80 mg tablet,chewabl e Chew. chew 2 tabs after mid-day meal, every day Active cyclobenzaprin e (FLEXERIL) 10 mg tablet 1 tab by mouth 2 times per day Active estradioL (ESTRACE) 0.01 % (0.1 mg/gram) vaginal cream 0.5 applicatorful as directed 2 times per week Active gabapentin (NEURONTIN) 600 mg tablet 1 in afternoon, 1 in evening Active lactulose (CHRONULAC) solution lactulose) 20 gram/30 mL solution, oral 30 mL by mouth daily until large bowel movement Active methenamine hippurate (HIPREX) 1 gram tablet 1 tab by mouth every morning Active OXcarbazepine (TRILEPTAL) 300 mg tablet 1.5 tabs by mouth every evening Active prazosin (MINIPRESS) 1 mg capsule 1 cap by mouth every day at bedtime Active QUEtiapine (SEROquel) 100 mg tablet 1.5 tabs each evening Active QUEtiapine XR (SEROquel XR) 200 mg 24 hr tablet 1 tab by mouth every day at bedtime Do not crush, chew, or split. Active Active Problems Problem Noted Date Diagnosed Date Urinary, incontinence, stress female 07/30/2024 Tendonitis of left rotator cuff 07/30/2024 Pain in left shoulder 07/30/2024 Type 2 diabetes mellitus with hypoglycemia 07/30 Osteoarthritis of feet, bilateral 07/30/2024 Overview (07/30/2024): Osteoarthritis, Bilateral Feet Osteoarthritis of ankles, bilateral 07/30/2024 Overview (07/30/2024): Osteoarthritis, Bilateral Feet & Ankles Solitary lung nodule 07/30/2024 Hypertensive heart disease with congestive heart failure 07/30/2024 Overview (07/30/2024): Hypertension with CHF Hematuria, microscopic 07/30/2024 Malabsorption 07/30/2024 Pain in back 07/30/2024 Injury of left rotator cuff 07/30/2024 Plantar fascial fibromatosis 07/30/2024 Bilateral lower extremity edema 07/30/2024 Dysphonia 07/30/2024 Paradoxical vocal fold motion disorder Oral lesion 07/30/2024 DDD (degenerative disc disease), cervical 2024 Radiculopathy, cervical 07/30/2024 Multiple nodules of lung 07/30/2024 Smokes cigarettes 07/30/2024 Overview (07/30/2024): Smoker, Cigarettes, Current Blood in stool 07/30/2024 Dysphagia 07/30/2024 Abdominal pain 07/30/2024 Post-menopause bleeding 07/30/2024 Depression with anxiety 07/30/2024 Conversion disorder 07/30/2024 Overview (07/30/2024): Conversion Disorder with Pseudoseizures Post-traumatic stress disorder, acute 07/30/2024 Sinus tachycardia 07/30/2024 Iron deficiency anemia 07/30/2024 Abnormal mammogram 07/30/2024 Mass of right breast 07/30/2024 Overview (07/30/2024): Nodule, Right Breast Other specified disorders of bone density and structure, multiple sites 07/30/2024 Overview (07/30/2024): DEXA: Z13.820, M85.89 Paroxysmal atrial fibrillation 01/29/2024 Congestive heart failure 01/29/2024 Overview (07/30/2024): CHF, Chronic Diastolic Hypertensive disorder 01/29/2024 Overview (04/17/2024): Last Assessment & Plan: Continue metoprolol with holding parameters. Hyperlipidemia 01/29/2024 Overview (04/17/2024): Last Assessment & Plan: Continue atorvastatin. Obesity 01/29/2024 Overview (07/30/2024): Obesity, Severe Prediabetes 01/29/2024 Edentulous 01/29/2024 Constipation 01/29/2024 GERD (gastroesophageal reflux disease) Schatzki's ring 01/29/2024 Leukocytosis (leucocytosis) 01/29/2024 Recurrent UTI 01/29/2024 Incontinent of urine 01/29/2024 Atrophic vaginitis 01/29/2024 Migraine 01/29/2024 Dementia 01/29/2024 Overview (07/30/2024): Dementia, Mild Bipolar 1 disorder 01/29/2024 Overview (04/17/2024): Last Assessment & Plan: Continue home medication. Anxiety 01/29/2024 Fibromyalgia 01/29/2024 Dupuytren's contracture of right hand 01/29/2024 Trigger finger 01/29/2024 Overview (07/30/2024): Trigger Finger/Flexor Tendonitis, Third Digit, Right Hand Hearing loss 01/29/2024 Chronic respiratory failure with hypoxia 024 Oxygen dependent 01/29/2024 Suicidal ideations 01/29/2024 Conversion disorder with attacks or seizures 11/2023 Vocal cord dysfunction 10/28/2023 Complex regional pain syndrome I 02/05/2023 Overview (04/17/2024): Last Assessment & Plan: Per Ortho: CRPS, Trigger secondary to MCP hyperextension RT On Prednisone 20 mg daily x 30 days until 02/10 Gait instability 02/04/2023 Overview (04/17/2024): Last Assessment & Plan: Obtain PT OT evaluation for the patient. Rehab pending Recurrent bouts of chest pain, no EKG or troponin changes Negative stress test and myocardial perfusion scan 2021, echo done 2022 @ [facility] Tobacco use disorder 11/23/2022 Overview (04/17/2024): Last Assessment & Plan: Recidivism now smoking half pack per day. Approximately 5 minutes of dedicated tobacco cessation counseling provided. Patient will use Nicotrol nicotine replacement therapy but declines use of alternative nicotine replacement modalities and Chantix. JOSEPH (obstructive sleep apnea) 06/28/2021 Overview (04/17/2024): Followed at [facility] sleep program. Last Assessment & Plan: Congratulated on ongoing compliance COPD with acute exacerbation 05/04/2021 Overview (04/17/2024): Last Assessment & Plan: Improving on current treatment. She is status post 3 days of azithromycin 500 mg. Patient presented with acute shortness of breath and productive cough concerning for COPD exacerbation. Breath sounds significantly improved Repeat COVID test negative Respiratory viral panel is pending. Sputum culture, nl vianca Patient anti-coagulated due to history of VTE therefore unlikely that PE is contributing to hypoxia. Repeat chest x-ray showed no pathology Echo showed no evidence for significant systolic dysfunction or other explanation for hypoxia. -Continue DuoNeb's and albuterol nebulizers -Continue prednisone 40 mg p.o. x5 days -S/P azithromycin 500 mg x 3 days. CXR no PNA, so no indication currently to broaden Abx -Cont Mucinex Chronic obstructive pulmonary disease 12/17/2018 Overview (04/17/2024): PFT 08/05/2021: FEV1 1.56 L or 63% predicted Last Assessment & Plan: Continue the inhalers. Smoking cessation encouraged Nicotine patch as well as nicotine gum. Encounters Date Type Department Care Team Description 07/23/2024 Lab Requisition [facility] - Main Lab [address] [facility] [place] [address] Elvira Damon MD Hematuria, unspecified 2024 9:45 AM EST Office Visit [facility] - [place] [address] [facility] [address] [place] [address] Gemini Simmons MD JOSEPH (obstructive sleep apnea) (Primary Dx); Chronic obstructive pulmonary disease, unspecified COPD type ([facility]/HCC); Tobacco use disorder 07/04/2024 Lab Requisition [facility] - Main Lab [address] [place] [address] Wale Pimentel NP Encounter for general adult medical examination without abnormal findings; Encounter for screening mammogram for malignant neoplasm of breast; Encounter for screening for osteoporosis; Other specified disorders of bone density and structure, multiple sites; Encounter for screening for malignant neoplasm of colon from Last 3 Months Immunizations Name Administration Dates Next Due Influenza Quadrivalent, 0.5m l, preservative free (Fluarix; FluLaval; Fluzone) ages 6mo and older (Afluria) 3yo and older 03/21/2023,04/04/2022,04/29/2021,10/16,04/27/2015 Influenza trivalent, 0.5mL, preservative free (Fluarix; FluLaval; Fluzone) ages 6mo and older (Afluria) 3 years and older 05/19/2014,03/26/2013 Influenza trivalent, with pr eservative (Fluzone; Afluria) 6mo and older 04/21/2017,03/20/2012,03/20/2011,04/26 Influenza, Unspecified 06/26/2024 Meningococcal MCV4P 05/04/2023 Pneumococcal conjugate 13 va lent (Prevnar 13, PCV13) 2mo and older 05/04/2023 Pneumococcal conjugate 20 va lent (Prevnar 20, PCV 20) 2mo and older 05/04/2023 Pneumococcal polysaccharide 23 valent (Pneumovax 23) 2yo and older 04/21/2017,06/25/2007 Td Tetanus diptheria (Tdvax) 7yo and older 08/09/2018 Tdap Tetanus diptheria acell ular pertussis (Boostrix; Adacel) 7yo and older 05/12/2008 Medical History Medical History Date Comments History of esophageal stricture Wears dentures History of deep vein thrombosis History of pulmonary embolism History of falling History of CVA (cerebrovascular accident) Social History Tobacco Use Types Packs/Day Years Used Date Smoking Tobacco: Every Day Smokeless Tobacco: Never Tobacco Cessation:Ready to Q uit: Not Asked; Counseling Given: Not Answered Comments:Packs per day : 6 Calculated quantity/packs per year: 2190 Alcohol Use Standard Drinks/Week Comments Not Currently 1 (1 standard drink = 0.6 oz pur e alcohol) Comments Unknown Sex and Gender Information Value Date Recorded Sex Assigned at Not on file Legal Sex Female 11:06 AM EDT Gender Identity Not on file Sexual Orientation Not on file Obstetrics History Last Filed Vital Signs Vital Sign Reading Time Taken Comments Blood Pressure 134/58 07/09/2024 3:16 PM EST Pulse 82 07/09/2024 3:16 PM EST Sitti ng Temperature 36.8 ??C (98.2 ??F) 07/09/2024 3:16 PM ES T Respiratory Rate 18 07/09/2024 3:16 PM EST Oxygen Saturation 90% 07/09/2024 3:16 PM EST Inhaled Oxygen Concentration - - Weight 113 kg (249 lb) 2024 9:56 AM EST Height 168.9 cm (5' 6.5 ) 2024 9:56 AM EST Body Mass Index 39.59 2024 9:56 AM EST Plan of Treatment Upcoming Encounters Date Type Department Care Team (Late st Contact Info) Description 08/25/2024 9:00 AM EST P[facility] Attendance[facility] [place] [facility] [address] [address] 08/27/2024 9:00 AM EST [facility] [address] [address] 09/01/2024 9:00 AM EDT [facility] Attend[facility] [facility] [place] [facility] [address] [place] [phone] 09/03/2024 9:00 AM EDT [place] Attendance[place] [facility] [place] [address] [address] 09/08/2024 9:00 AM EDT [facility] [place] [facility] [address] [address] 09/10/2024 9:00 AM EDT [facility] [place] [facility] [address] [place] [address] 09/15/2024 9:00 AM EDT [facility] [place] [facility] [address] [place] [address] 09/17/2024 9:00 AM EDT [facility] P[facility] Day Center [address] [place] [address] 09/22/2024 9:00 AM EDT [facility] [place] [facility] [address] [place] [address] 09/24/2024 9:00 AM EDT PACE Attendance/Day Center [facility] Day Center [address] [place] [address] 09/29/2024 9:00 AM EDT [facility] PACE Day Center [address] [place] [address] 09/29/2024 11:00 AM EDT Appointment [facility] CT Scan [address] [place] [address] 10/01/2024 9:00 AM EDT PACE Attendance/Day Center [facility] Day Center [address] [place] [address] 10/06/2024 9:00 AM EDT [facility] [place] [facility] [address] [place] [address] 10/06/2024 11:00 AM EDT Appointment [facility] Ultrasound [address] [place] [address] 10/08/2024 9:00 AM EDT [facility] P[facility] Day Center [address] [place] [address] 10/13/2024 9:00 AM EDT PACE Attendance[facility] [facility] [place] [facility] [address] [place] [address] 10/15/2024 9:00 AM EDT PACE Attendance[facility] [facility] [place] [facility] [address] [place] [phone] 10/20/2024 9:00 AM EDT PACE Attendance[facility] [facility] [place] [facility] [address] [place] [phone] 10/22/2024 9:00 AM EDT [facility] [place] [facility] [address] [place] [phone] 10/27/2024 9:00 AM EDT [facility] [place] [facility] [address] [place] [phone] 10/29/2024 9:00 AM EDT [facility] [place] [facility] [address] [place] [phone] 11/03/2024 9:00 AM EDT [facility] [place] [facility] [address] [place] [phone] 11/05/2024 9:00 AM EDT [facility] [place] [facility] [address] [place] [address] 11/10/2024 9:00 AM EDT [facility] [employer] [place] [facility] [address] [place] [phone] 11/10/2024 9:45 AM EDT Office Visit [facility] [address] [address] Gemini Simmons MD [address] [address] 11/12/2024 9:00 AM EDT [facility] [place] [facility] [address] [place] [address] 11/17/2024 9:00 AM EDT PACE Attendance[facility] [facility] [place] [facility] [address] [place] [address] 11/19/2024 9:00 AM EDT PACE Attendance[facility] [facility] [place] [facility] [address] [place] [phone] 11/24/2024 9:00 AM EDT PACE Attendance[facility] [facility] [place] [facility] [address] [place] [address] 11/26/2024 9:00 AM EDT P[facility] Attendance[facility] [facility] [place] [facility] [address] [place] [phone] 12/01/2024 9:00 AM EDT P[facility] Attendance[facility] [facility] [place] [facility] [address] [place] [address] 12/03/2024 9:00 AM EDT PACE Attendance[facility] [facility] [place] [facility] [address] [place] [address] 12/08/2024 9:00 AM EDT P[facility] Attendance[facility] [facility] [place] [facility] [address] [place] [address] 12/10/2024 9:00 AM EDT [facility] Attendance[facility] [place] [facility] [address] [place] [address] 12/15/2024 9:00 AM EDT [facility] Attend[facility] [place] [facility] [address] [place] [phone] 12/17/2024 9:00 AM EDT [facility] Attend[facility] [place] [facility] [address] [place] [phone] 12/22/2024 9:00 AM EDT [facility] Attend[facility] [place] [facility] [address] [place] [address] 12/24/2024 9:00 AM EDT [facility] Attend[facility] [place] [facility] [address] [place] [phone] 12/29/2024 9:00 AM EDT [facility] Attend[facility] [place] [facility] [address] [place] [address] 12/31/2024 9:00 AM EDT PACE Attendance[facility] [place] [facility] [place] [facility] [address] [place] [address] 01/05/2025 9:00 AM EDT P[facility] Attendance[facility] [facility] [place] [facility] [address] [place] [address] 01/07/2025 9:00 AM EDT P[facility] Attendance[facility] [facility] [place] [facility] [address] [place] [phone] 01/12/2025 9:00 AM EDT [facility] Attend[facility] [place] [facility] [address] [place] [phone] 01/14/2025 9:00 AM EDT [facility] Attend[facility] [place] [facility] [address] [place] [phone] 01/19/2025 9:00 AM EDT [facility]end[facility] [place] [facility] [address] [place] [phone] 01/21/2025 9:00 AM EDT [facility] [place] [facility] [address] [place] [address] 01/26/2025 9:00 AM EDT [facility] [place] [facility] [address] [place] [address] 01/28/2025 9:00 AM EDT [facility] [place] [facility] [address] [place] [address] 02/02/2025 9:00 AM EDT [facility] Attend[facility] [place] [facility] [address] [place] [address] 02/04/2025 9:00 AM EDT [facility] [place] [facility] [address] [place] [address] 02/09/2025 9:00 AM EDT [facility] [place] [facility] [address] [place] [address] 02/11/2025 9:00 AM EDT [facility]end[facility] [place] [facility] [address] [place] [address] 02/16/2025 9:00 AM EDT PACE Attendance[facility] [place] [facility] [address] [place] [phone] 02/18/2025 9:00 AM EDT P[facility] Attend[facility] [place] [facility] [address] [place] [phone] 02/23/2025 9:00 AM EDT [facility]end[facility] [place] [facility] [address] [place] [address] 02/25/2025 9:00 AM EDT [facility] [place] [facility] [address] [place] [phone] 03/02/2025 9:00 AM EDT [facility] [place] [facility] [address] [place] [address] 03/04/2025 9:00 AM EDT [facility] Att[facility] [place] [facility] [address] [place] [address] 03/09/2025 9:00 AM EDT [facility] [place] [facility] [address] [place] [phone] 03/11/2025 9:00 AM EDT PACE Attendance[facility] [place] [facility] [address] [place] [address] 03/16/2025 9:00 AM EDT PACE Attendance[facility] [place] [facility] [address] [place] [address] 03/18/2025 9:00 AM EDT P[facility] Attendance[facility] [place] [facility] [address] [place] [address] 03/23/2025 9:00 AM EDT P[facility] Attendance[facility] [facility] [place] [facility] [address] [place] [address] 03/25/2025 9:00 AM EDT P[facility] Attendance[facility] [place] [facility] [address] [place] [address] 03/30/2025 9:00 AM EDT PACE Attendance[facility] [place] [facility] [address] [place] [address] 04/01/2025 9:00 AM EDT PACE Attendance[facility] [place] [facility] [address] [place] [phone] 04/06/2025 9:00 AM EDT P[facility] Attend[facility] [facility] [place] [facility] [address] [place] [phone] 04/08/2025 9:00 AM EDT P[facility] Attend[facility] [facility] [place] [facility] [address] [place] [address] 04/13/2025 9:00 AM EDT P[facility]end[facility] [place] [facility] [address] [place] [address] 04/15/2025 9:00 AM EDT [facility] [place] [facility] [address] [place] [address] 04/20/2025 9:00 AM EDT [facility]end[facility] [place] [facility] [address] [place] [address] 04/22/2025 9:00 AM EDT [facility] Attendance[facility] [place] [facility] [address] [place] [address] 04/27/2025 9:00 AM EST [facility] Attend[facility] [place] [facility] [address] [place] [address] 04/29/2025 9:00 AM EST [facility] [place] [facility] [address] [place] [address] 05/04/2025 9:00 AM EST [facility] [place] [facility] [address] [place] [address] 05/06/2025 9:00 AM EST [facility] [place] [facility] [address] [place] [address] 05/11/2025 9:00 AM EST [facility] [place] [facility] [address] [place] [address] 05/13/2025 9:00 AM EST [facility] [place] [facility] [address] [place] [phone] 05/18/2025 9:00 AM EST [facility] Attend[facility] [place] [facility] [address] [place] [address] 05/20/2025 9:00 AM EST [facility] Attend[facility] [place] [facility] [address] [place] [address] 05/25/2025 9:00 AM EST [facility] Attend[facility] [place] [facility] [address] [place] [address] 05/27/2025 9:00 AM EST [facility] [place] [facility] [address] [place] [address] 06/01/2025 9:00 AM EST [facility] [place] [facility] [address] [place] [address] 06/03/2025 9:00 AM EST [facility] [place] [facility] [address] [place] [phone] 06/08/2025 9:00 AM EST [facility] [place] [facility] [address] [place] [phone] 06/10/2025 9:00 AM EST PACE Attend[facility] [place] [facility] [address] [place] [phone] 06/15/2025 9:00 AM EST [facility] [place] [facility] [address] [place] [phone] 06/17/2025 9:00 AM EST PACE Attend[facility] [place] [facility] [address] [place] [phone] 06/22/2025 9:00 AM EST PACE Attendance[facility] [place] [facility] [address] [place] [phone] 06/24/2025 9:00 AM EST [facility] [place] [facility] [address] [place] [phone] 06/29/2025 9:00 AM EST [facility] [place] [facility] [address] [place] [phone] 07/01/2025 9:00 AM EST PACE Attendance/Day [facility] [address] [place] [phone] 07/06/2025 9:00 AM EST [facility] Attend[facility] [address] [place] [phone] 2025 9:00 AM EST [facility] [address] [place] [phone] 07/13/2025 9:00 AM EST [facility] [address] [place] [phone] 07/15/2025 9:00 AM EST [facility] [address] [place] [phone] 07/20/2025 9:00 AM EST [facility] Att[facility] [address] [place] [phone] 07/22/2025 9:00 AM EST [facility] [address] [place] [phone] 07/27/2025 9:00 AM EST [facility] Att[facility] [address] [place] [phone] 07/29/2025 9:00 AM EST [facility] Att[facility] [address] [place] [phone] 08/03/2025 9:00 AM EST [facility] Att[facility] [place] [facility] [address] [place] [phone] Health Maintenance Due Date Last Done Comments Diabetes: Annual Foot Exam 1972 Diabetes: Annual Retina Eye Exam 1972 Meningococcal B Vacine (1 of 5 - Increased Risk) 1972 Cervical Cancer Screening: Pap Smear 1983 Zoster Vaccines (1 of 2) 2012 RSV Immunization Patients 60+ Years Old (1 - Risk 60-74 years 1-dose series) 2022 Meningococcal ACWY Vaccine (2 - Risk 2-dose series) 06/29/2023 05/04/2023 Colorectal Cancer Screening: Colonoscopy 01/17/2024 HIV Screening 01/17/2024 Hepatitis C Screening 01/17/2024 Lung Cancer Screening (Low Dose CT) 01/17/2024 Social Influencers of Health Screening 01/17/2024 COVID-19 Vaccine ( season) 2024 04/05/2023, 04/29/2021, 08/03/2020, Additional history exists Depression Screening 07/31/2024 07/31/2023 Diabetes: Annual Urine Albumin-Creatinine Ratio (uACR) 07/31/2024 Diabetes: Blood Sugar Control Test (HGBA1C) 09/14/2024 03/17/2024 Diabetes: Annual GFR (Glomerular Filtration Rate) 06/04/2025 06/04/2024, 11/04/2023, 11/03/2023, Additional history exists Hypertension/CHF/CAD Annual BMP Blood Test 06/04/2025 06/04/2024, 11/04/2023, 11/03/2023, Additional history exists Breast Cancer Screening 03/26/2026 03/26/2024 DTaP,Tdap,and Td Vaccines (3 - Td or Tdap) 08/09/2028 08/09/2018, 05/12/2008 Cholesterol Screening (Lipid Panel) 09/25/2028 09/26/2023 HIB Vaccines Completed 05/04/2023 Pneumococcal Vaccine: 50+ Years Completed 05/04/2023, 05/04/2023, 04/21/2017, Additional history exists Pneumococcal Vaccine: Pediatrics (0 to 5 Years) and At-Risk Patients (6 to 64 Years) Completed 05/04/2023, 05/04/2023, 04/21/2017, Additional history exists Influenza Vaccine Completed 06/26/2024, , 04/04/2022, Additional history exists HPV Vaccines Aged Out No longer eligi [...] on patient's age to complete this topic MMR Vaccines Aged Out No longer eligi ble based on patient's age to complete this topic RSV Immunization Patients Under 20 months Aged Out No longer eligible based on patient's age to complete this topic Varicella Vaccines Aged Out No longer eligible based on patient's age to complete this topic Procedures Procedure Name Priority Date/Time Associated Diagnosis Comments TISSUE EXAM Routine 07/22/2024 Hematuria, unspecified FERNANDEZ URINE CULTURE TUBE Routine 07/04/2024 8:00 AM EST Encounter for general adult medical examination without abnormal findings Encounter for screening mammogram for malignant neoplasm of breast Encounter for screening for osteoporosis Other specified disorders of bone density and structure, multiple sites Encounter for screening for malignant neoplasm of colon URINALYSIS WITH REFLEX MICROSCOPIC AND CULTURE Routine 07/04/2024 8:00 AM EST Encounter for general adult medical examination without abnormal findings Encounter for screening mammogram for malignant neoplasm of breast Encounter for screening for osteoporosis Other specified disorders of bone density and structure, multiple sites Encounter for screening for malignant neoplasm of colon URINALYSIS WITH REFLEX MICROSCOPIC AND CULTURE Routine 07/04/2024 8:00 AM EST Encounter for general adult medical examination without abnormal findings Encounter for screening mammogram for malignant neoplasm of breast Encounter for screening for osteoporosis Other specified disorders of bone density and structure, multiple sites Encounter for screening for malignant neoplasm of colon CULTURE URINE Routine 07/04/2024 8:00 AM EST Encounter for general adult medical examination without abnormal findings Encounter for screening mammogram for malignant neoplasm of breast Encounter for screening for osteoporosis Other specified disorders of bone density and structure, multiple sites Encounter for screening for malignant neoplasm of colon HM ANNUAL BMP BLOOD TEST Routine 06/04/2024 SHAHRIAR SCREENING DIGITAL Routine 03/26/2024 3:43 PM EDT Encounter for screening mammogram for malignant neoplasm of breast HEMOGLOBIN A1C Routine 03/17/2024 LIPID PANEL Routine 09/26/2023 from Last 3 Months or Most Recently Relevant to Health Maintenance Results * Tissue Exam (07/22/2024) Final Diagnosis Endometrium, biopsy: - Scant superficial strips of endometrial epithelium with tubal change. (See note.) Note: In the appropriate clinical setting, the morphologic findings in this scant biopsy would support a diagnosis of endometrial atrophy. However, the scant material received may not be fully senior account representative of the endometrium. Clinical correlation is recommended. 07/24/2024 11:07 AM [facility] Clinical Information Hematuria (? PMB) 07/24/2024 11:07 AM [facility] Gross Description A. Endometrium, biopsy: Labeled with the patient's name and information. Received in formalin is an approximately 0.2 x 0.1 x 0.1 cm aggregate of soft to mucoid, white tissue fragments, which is wrapped in paper and submitted in toto in one cassette, multiple pieces, x2. Please note: Small tissue fragments may not survive processing. [email or web address]/[email or web address] 07/24/2024 11:07 AM [facility] Disclaimer Unless otherwise specified, all tissue is 10% NB formalin fixed and paraffin embedded. 07/24/2024 11:07 AM [facility] Tissue Endometrial structure / Unknown 07/22/2024 07/23/2024 7:03 AM EST us Elvira Damon MD LAB PATHOLOGY ORDERABLES Final Result [facility] [address] [place] [address], * (ABNORMAL) Urinalysis with reflex microscopic and culture (07/04/2024 8:00 AM EST) Specific [place] Urine 1.036(H) 1.003 - 1.030 LAB URINALYSIS - AUTOMATED METHOD 07/04/2024 2:20 PM [facility] pH, Urine 8.0 5.0 - 8.0 pH LAB URINALYSIS - AUTOMATED METHOD 07/04/2024 2:20 PM [facility] Leukocytes, Urine Moderate(A) Negative LAB URINALYSIS - AUTOMATED METHOD 07/04/2024 2:20 PM [facility] Nitrite, Urine Positive(A) Negative LAB URINALYSIS - AUTOMATED METHOD 07/04/2024 2:20 PM [facility] Protein, Urine 100(A) <=Trace mg/dL LAB URINALYSIS - AUTOMATED METHOD 07/04/2024 2:20 PM [facility] Glucose, Urine Negative Negative mg/dL LAB URINALYSIS - AUTOMATED METHOD 07/04/2024 2:20 PM [facility] Ketones, Urine Trace(A) Negative mg/dL LAB URINALYSIS - AUTOMATED METHOD 07/04/2024 2:20 PM [facility] Urobilinogen , Urine 1.0 0.2 - 1.0 mg/dL LAB URINALYSIS - AUTOMATED METHOD 07/04/2024 2:20 PM [facility] Bilirubin, Urine Negative Negative LAB URINALYSIS - AUTOMATED METHOD 07/04/2024 2:20 PM [facility] Blood, Urine Trace(A) Negative LAB URINALYSIS - AUTOMATED METHOD 07/04/2024 2:20 PM [facility] RBC, Urine 14.3(H) 0 - 4 /HPF LAB URINALYSIS - AUTOMATED METHOD 07/04/2024 2:20 PM [facility] WBC, Urine 295.7(H) 0 - 4 /HPF LAB URINALYSIS - AUTOMATED METHOD 07/04/2024 2:20 PM [facility] Squamous Epithelial, Urine 64(H) 0 - 60 /LPF LAB URINALYSIS - AUTOMATED METHOD 07/04/2024 2:20 PM [facility] Crystals, Urine LT TRIPLE PHOSPHATE /LPF LAB URINALYSIS - AUTOMATED METHOD 07/04/2024 2:20 PM [facility] Bacteria, Urine Many(A) Negative /HPF LAB URINALYSIS - AUTOMATED METHOD 07/04/2024 2:20 PM [facility] Hyaline Casts, Urine 4.2(H) 0 - 3 /LPF LAB URINALYSIS - AUTOMATED METHOD 07/04/2024 2:20 PM [facility] Urine Urine specimen obtained by clean catch procedure / Unknown 07/04/2024 8:00 AM EST 07/04/2024 1:35 PM EST [facility] LAB URINE ORDERABLES Final Re sult Performing Organization Address [facility]/ZIP Co de Phone Number [facility] [address] [place] [address], [place] [phone] * Fernandez urine culture tube (07/04/2024 8:00 AM EST) Extra Tube Hold for add-ons. 07/04/2024 3:02 PM EST [facility] Comment:Auto resulted. Urine Urine specimen obtained by clean catch procedure / Unknown 07/04/2024 8:00 AM EST 07/04/2024 1:35 PM EST [facility] LAB URINE ORDERABLES Final Re sult Performing Organization Address [facility]/ZIP Co de Phone Number [facility] [address] [place] [address], [place] [phone] * (ABNORMAL) Culture urine (07/04/2024 8:00 AM EST) Culture, Urine >100,000 CFU/mL Proteus mirabilis(A ) ANNETTA 07/06/2024 11:50 AM EST [facility] Comment: Edited result: Previously reported as Proteus species on 07/05/2024 at 0924 EST. Urine Urine specimen obtained by clean catch procedure / Unknown 07/04/2024 8:00 AM EST 07/04/2024 2:20 PM EST Narrative Organism Antibiotic Method Susceptibility Proteus mirabilis Ampicillin/Sulbactam ANNETTA 16 ug/ml: Intermediate Proteus mirabilis Piperacillin/Tazobactam ANNETTA <=4 ug/ml: Susceptible Proteus mirabilis Cefazolin (Urine) ANNETTA 8 ug/ml: Susceptible Proteus mirabilis Cefoxitin ANNETTA 8 ug/ml: Susceptible Proteus mirabilis Ceftazidime ANNETTA <=0.5 ug/ml: Susceptible Proteus mirabilis Ceftriaxone ANNETTA <=0.25 ug/ml: Susceptible Proteus mirabilis Cefepime ANNETTA <=0.12 ug/ml: Susceptible Proteus mirabilis Meropenem ANNETTA 1 ug/ml: Susceptible Proteus mirabilis Amikacin ANNETTA 4 ug/ml: Susceptible Proteus mirabilis Gentamicin ANNETTA <=1 ug/ml: Susceptible Proteus mirabilis Ciprofloxacin ANNETTA <=0.06 ug/ml: Susceptible Proteus mirabilis Levofloxacin ANNETTA <=0.12 ug/ml: Susceptible Proteus mirabilis Nitrofurantoin ANNETTA 128 ug/ml: Resistant Proteus mirabilis Trimethoprim/Sulfamethoxazole ANNETTA >=320 ug/ml: Resistant Wale Pimentel FOUNDER / CEO LAB MICROBIOLOGY - GENERAL OR DERABLES Final Result [facility] [address] [place] [address], * Annual BMP Blood Test (06/04/2024) Annual [facility] Blood Test Abstracted Historical Provider HEALTH MAINTENANCE Final Result * SHAHRIAR SCREENING DIGITAL (03/26/2024 3:43 PM EDT) Anatomical Region Laterality Modality Mammography 03/12/2024 11:1 8 AM EDT Narrative 03/26/2024 3:43 PM EDT [facility] Diagnostic Imaging Department [address] [place] [address] Patient: ??LUCILA GRIFFITHS ?/Age/Sex: 1960 - 63 - F Unit#: ??[id number] ? Location/Status: ??SPDIMAM/REG CLI ? Mnemonic/Ordering Site: ??DIGSC/SPMAM Ordering Physician: ??WALE PIMENTEL [facility] Screening Digital - 03/12/24 - 1133 Report Status:Signed EXAM: [facility] Screening Digital EXAM DATE AND TIME: 03/12/2024 11:34 AM HISTORY: ??Screening. Previous left breast biopsy, pathology benign. Mother had breast carcinoma at age 60. COMPARISON: ??No outside comparison imaging has been located on this patient. TECHNIQUE: Bilateral digital breast tomosynthesis was performed in the CC and MLO projections. Computer aided detection with [employer] 3D 3.1 was employed. TISSUE DENSITY: b. There are scattered areas of fibroglandular density. FINDINGS: An 8 mm circumscribed nodule is seen in the upper outer right breast (9-10:00, approximately 9 cm from nipple) without associated microcalcifications, most likely a lymph node. Targeted ultrasound is recommended to confirm. No grouped microcalcifications or areas of architectural distortion are seen. The skin and vascularity are unremarkable. IMPRESSION: 1. 8 mm right breast nodule, possibly a lymph node, for which targeted ultrasound is recommended. The patient will be called back. 2. No mammographic evidence of malignancy is seen in the left breast. BI-RADS: ??Category 0: Incomplete - Need Additional Imaging Evaluation RECOMMENDATION(S): 1: Ultrasound follow-up RIGHT Mammogram performed at [facility] [place] [address] Dictating Physician: ??BERTA MOCK MD Electronically Signed by: ??BERTA MOCK MD Dic Date/Time: ??03/26/241539 Sign date/Time: ??03/26/24 1543 Procedure Note Berta Mock MD - 04/22/2024 [facility] Diagnostic Imaging Department [address] [place] [id number] Patient: LUCILA GRIFFITHS [place] /Age/Sex: 1960 - 63 - F Unit#: [id number] Location/Status: [facility] CLI Mnemonic/Ordering Site: [facility] Ordering Physician: WALE PIMENTEL [facility] Screening Digital - 03/12/24 - 1133 Report Status:Signed EXAM: [facility] Screening Digital EXAM DATE AND TIME: 03/12/2024 11:34 AM HISTORY: Screening. Previous left breast biopsy, pathology benign. Motherhad breast carcinoma at age 60. COMPARISON: No outside comparison imaging has been located on thispatient. TECHNIQUE: Bilateral digital breast tomosynthesis was performed in the CCand MLO projections. Computer aided detection with [employer] 3D 3.1was employed. TISSUE DENSITY: b. There are scattered areas of fibroglandular density. FINDINGS: An 8 mm circumscribed nodule is seen in the upper outer right breast(9-10:00, approximately 9 cm from nipple) without associated microcalcifications,most likely a lymph node. Targeted ultrasound is recommended to confirm. No grouped microcalcifications or areas of architectural distortion areseen. The skin and vascularity are unremarkable. IMPRESSION: 1. 8 mm right breast nodule, possibly a lymph node, for which targeted ultrasound is recommended. The patient will be called back. 2. No mammographic evidence of malignancy is seen in the left breast. BI-RADS: Category 0: Incomplete - Need Additional Imaging Evaluation RECOMMENDATION(S): 1: Ultrasound follow-up RIGHT Mammogram performed at [facility] [place] [address] Dictating Physician: BERTA MOCK MD Electronically Signed by: BERTA MOCK MD Dic Date/Time: 03/26/241539 Sign date/Time: 03/26/241542 Wale Pimentel FOUNDER / CEO IMG BI PROCEDURES Final Resul t * (ABNORMAL) Hemoglobin A1c (03/17/2024) Pathologist [facility] [place] Hemoglobin A1C 6.7(A) <=5.7 % Blood Venous blood specimen / Unknown Result [facility] Historical Provider LAB BLOOD ORDERABLES Claire l Result * (ABNORMAL) Lipid panel (09/26/2023) Pathologist [facility] [place] LDL/HDL Ratio 2 <=5 Triglycerides 73 <=150 mg/dL Cholesterol 89 <=200 mg/dL HDL 45(A) >=50 mg/dL LDL Cholesterol 29 <=100 mg/dL Blood Venous blood specimen / Unknown Historical Provider LAB BLOOD ORDERABLES Claire l Result from Last 3 Months or Most Recently Relevant to Health Maintenance Insurance [facility] * Guarantor: [employer] Account Type Relation to Patient Date of Phone B[place] [address] [facility] Advance Directives Documents on File Type Date Recorded 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 Do not modify or discontinue any currently active code status orders. Care Teams Sanitary Aide Relationship Specialty Start Date End Date Wale Pimentel NP [address] [address] PCP - General Family Medicine 05/02/24
--- OUTSIDE RECORDS SUMMARY | 2024-08-19 17:41 | XMS_ITS | Encounter Summary ---
Author Organization [facility] Address [address] [place] [address] Care Team Providers Care Hhas Name Role Phone Pimentel, Dedejennifer Lopez CLINICAL DOCUMENTATION SPEC Primary Care Provider [phone] Encounter Details Date Type Department Care Team (Late Contact Info) Description 07/23/2024 Lab Requisition [facility] [address] [facility] [place] [id number] Elvira Damon MD 299 [facility] [address] [place] [id number] Hematuria, unspecified Social History Tobacco Use Types Packs/Day Years Used Date Smoking Tobacco: Every Day Smokeless Tobacco: Never Alcohol Use Standard Drinks/Week [...] 08/25/2024 9:00 AM EST PACE Attendance/Day Center [facility] [address] [place] [phone] 08/27/2024 9:00 AM EST PACE Attendance/Day Center [facility] [address] [phone] 09/01/2024 9:00 AM EDT PACE Attendance/Day Center [facility] [place] [facility] [address] [place] [address] 09/03/2024 9:00 AM EDT [facility] [address] [place] [address] 09/08/2024 9:00 AM EDT [facility] [address] [place] [address] 09/10/2024 9:00 AM EDT [facility] Day [facility] [address] [place] [phone] 09/15/2024 9:00 AM EDT [facility] [address] [place] [phone] 09/17/2024 9:00 AM EDT [facility] [address] [place] [phone] 09/22/2024 9:00 AM EDT [facility] [address] [place] [phone] 09/24/2024 9:00 AM EDT [facility] [address] [place] [phone] 09/29/2024 9:00 AM EDT [facility] [place] [facility] [address] [place] [phone] 09/29/2024 11:00 AM EDT Appointment [facility] CT Scan [address] [place] [address] 10/01/2024 9:00 AM EDT [facility] [address] [place] [phone] 10/06/2024 9:00 AM EDT P[place] Attendance[place] [facility] [place] [facility] [address] [place] [phone] 10/06/2024 11:00 AM EDT Appointment [address] [phone] 10/08/2024 9:00 AM EDT [facility] [address] [place] [phone] 10/13/2024 9:00 AM EDT [facility] [place] [facility] [address] [place] [phone] 10/15/2024 9:00 AM EDT [facility] [place] [facility] [address] [place] [phone] 10/20/2024 9:00 AM EDT [facility] [place] [facility] [address] [place] [phone] 10/22/2024 9:00 AM EDT [facility] [place] [facility] [address] [place] [phone] 10/27/2024 9:00 AM EDT [facility] [place] [facility] [address] [place] [phone] 10/29/2024 9:00 AM EDT [facility] [place] [facility] [address] [place] [phone] 11/03/2024 9:00 AM EDT [facility] [place] [facility] [address] [place] [phone] 11/05/2024 9:00 AM EDT [facility] [facility] [place] [facility] [address] [place] [phone] 11/10/2024 9:00 AM EDT [facility] [place] [facility] [address] [place] [phone] 11/10/2024 9:45 AM EDT Office Visit [facility] [address] [place] [address] Gemini Simmons MD [address] [facility] [address] [place] [address] 11/12/2024 9:00 AM EDT [facility] [place] [facility] [address] [place] [phone] 11/17/2024 9:00 AM EDT [facility] [place] [facility] [address] [place] [phone] 11/19/2024 9:00 AM EDT [facility] [place] [facility] [address] [place] [phone] 11/24/2024 9:00 AM EDT [facility] [place] [facility] [address] [place] [phone] 11/26/2024 9:00 AM EDT [facility] [place] [facility] [address] [place] [phone] 12/01/2024 9:00 AM EDT [facility] [place] [facility] [address] [place] [phone] 12/03/2024 9:00 AM EDT [place] [facility] [place] [facility] [address] [place] [phone] 12/08/2024 9:00 AM EDT PACE Attendance[facility] [place] [facility] [address] [place] [phone] 12/10/2024 9:00 AM EDT [place] [facility] [place] [facility] [address] [place] [phone] 12/15/2024 9:00 AM EDT PACE Attendance[facility] [facility] [place] [facility] [address] [place] [phone] 12/17/2024 9:00 AM EDT [facility] [facility] [place] [facility] [facility] [address] [place] [phone] 12/22/2024 9:00 AM EDT [facility] [place] [facility] [place] [facility] [address] [place] [phone] 12/24/2024 9:00 AM EDT [facility] [place] [facility] [facility] [address] [place] [phone] 12/29/2024 9:00 AM EDT [facility] [facility] [place] [facility] [facility] [address] [place] [phone] 12/31/2024 9:00 AM EDT [facility] [facility] [place] [facility] [facility] [address] [place] [phone] 01/05/2025 9:00 AM EDT [facility] [facility] [place] [facility] [address] [place] [phone] 01/07/2025 9:00 AM EDT [facility] Att[facility] [place] [facility] [address] [place] [phone] 01/12/2025 9:00 AM EDT [facility] [place] [facility] [address] [place] [phone] 01/14/2025 9:00 AM EDT [facility] [place] [facility] [address] [place] [phone] 01/19/2025 9:00 AM EDT [facility] [place] [facility] [address] [place] [phone] 01/21/2025 9:00 AM EDT [facility] [place] [facility] [address] [place] [phone] 01/26/2025 9:00 AM EDT [facility] [place] [facility] [address] [place] [phone] 01/28/2025 9:00 AM EDT [facility] [place] [facility] [address] [place] [phone] 02/02/2025 9:00 AM EDT [facility] Att[facility] [place] [facility] [place] [facility] [address] [place] [phone] 02/04/2025 9:00 AM EDT [facility] [place] [facility] [address] [place] [phone] 02/09/2025 9:00 AM EDT [facility] Att[facility] [place] [facility] [address] [place] [phone] 02/11/2025 9:00 AM EDT [facility] Att[facility] [place] [facility] [address] [place] [phone] 02/16/2025 9:00 AM EDT [facility] [place] [facility] [address] [place] [phone] 02/18/2025 9:00 AM EDT [facility] [place] [facility] [address] [place] [phone] 02/23/2025 9:00 AM EDT [facility] [place] [facility] [address] [place] [phone] 02/25/2025 9:00 AM EDT [facility] [place] [facility] [address] [place] [phone] 03/02/2025 9:00 AM EDT [facility] [place] [facility] [address] [place] [address] 03/04/2025 9:00 AM EDT [facility] [place] [facility] [address] [place] [address] 03/09/2025 9:00 AM EDT [facility] Att[facility] [place] [facility] [address] [place] [phone] 03/11/2025 9:00 AM EDT [facility] Att[facility] [place] [facility] [address] [place] [phone] 03/16/2025 9:00 AM EDT P[facility] Attendance[facility] [place] [facility] [place] [facility] [address] [place] [phone] 03/18/2025 9:00 AM EDT [facility] Att[facility] [place] [facility] [address] [place] [phone] 03/23/2025 9:00 AM EDT [facility] Att[facility] [place] [facility] [address] [place] [phone] 03/25/2025 9:00 AM EDT [facility] [place] [facility] [address] [place] [phone] 03/30/2025 9:00 AM EDT [facility] [place] [facility] [address] [place] [phone] 04/01/2025 9:00 AM EDT [facility] [place] [facility] [address] [place] [phone] 04/06/2025 9:00 AM EDT [facility] [place] [facility] [address] [place] [phone] 04/08/2025 9:00 AM EDT [facility] Att[facility] [place] [facility] [address] [place] [phone] 04/13/2025 9:00 AM EDT [facility] Attend[facility] [place] [facility] [address] [place] [address] 04/15/2025 9:00 AM EDT [facility] Attend[facility] [place] [facility] [address] [place] [address] 04/20/2025 9:00 AM EDT P[facility] Attendance[facility] [place] [facility] [address] [place] [phone] 04/22/2025 9:00 AM EDT [facility] Att[facility] [place] [facility] [address] [place] [phone] 04/27/2025 9:00 AM EST P[facility] Attend[facility] [place] [facility] [address] [place] [phone] 04/29/2025 9:00 AM EST [facility] [place] [facility] [address] [place] [phone] 05/04/2025 9:00 AM EST [facility] [place] [facility] [address] [place] [phone] 05/06/2025 9:00 AM EST [facility] [place] [facility] [address] [place] [address] 05/11/2025 9:00 AM EST [facility] Attend[facility] [place] [facility] [address] [place] [address] 05/13/2025 9:00 AM EST [facility] Att[facility] [place] [facility] [facility] [address] [place] [phone] 05/18/2025 9:00 AM EST [facility] [place] [facility] [address] [place] [phone] 05/20/2025 9:00 AM EST P[facility] Attendance[facility] [place] [facility] [address] [place] [phone] 05/25/2025 9:00 AM EST [facility] Attend[facility] [place] [facility] [address] [place] [phone] 05/27/2025 9:00 AM EST P[facility] Attend[facility] [place] [facility] [address] [place] [address] 06/01/2025 9:00 AM EST [facility] Att[facility] [place] [facility] [address] [place] [phone] 06/03/2025 9:00 AM EST [facility] [place] [facility] [address] [place] [address] 06/08/2025 9:00 AM EST [facility] [place] [facility] [address] [place] [phone] 06/10/2025 9:00 AM EST [facility] Att[facility] [place] [facility] [address] [place] [phone] 06/15/2025 9:00 AM EST [facility] Att[facility] [place] [facility] [address] [place] [address] 06/17/2025 9:00 AM EST P[facility] Attend[facility] [place] [facility] [address] [place] [phone] 06/22/2025 9:00 AM EST P[facility] Attend[facility] [place] [facility] [address] [place] [address] 06/24/2025 9:00 AM EST [facility] Attend[facility] [place] [facility] [address] [place] [address] 06/29/2025 9:00 AM EST P[facility] Attend[facility] [place] [facility] [address] [place] [address] 07/01/2025 9:00 AM EST [facility] [place] [facility] [address] [place] [phone] 07/06/2025 9:00 AM EST [facility] [place] [facility] [address] [place] [phone] 2025 9:00 AM EST [facility] Attend[facility] [place] [facility] [address] [place] [phone] 07/13/2025 9:00 AM EST [facility] [place] [facility] [address] [place] [phone] 07/15/2025 9:00 AM EST P[facility] Attend[facility] [place] [facility] [address] [place] [phone] 07/20/2025 9:00 AM EST [facility] [place] [facility] [address] [place] [phone] 07/22/2025 9:00 AM EST [facility] [place] [facility] [address] [place] [phone] 07/27/2025 9:00 AM EST P[facility] Att[facility] [place] [facility] [address] [place] [phone] 07/29/2025 9:00 AM EST PACE Attendance[facility] [place] [facility] [address] [place] [phone] 08/03/2025 9:00 AM EST P[facility] Attendance[facility] [place] [facility] [address] [place] [phone] documented as of this encounter Procedures Procedure Name Priority Date/Time Associated Diagnosis Comments TISSUE EXAM Routine 07/22/2024 Hematuria, unspecified documented in this encounter Results * Tissue Exam (07/22/2024) Final Diagnosis Endometrium, biopsy: - Scant superficial strips of endometrial epithelium with tubal change. (See note.) Note: In the appropriate clinical setting, the morphologic findings in this scant biopsy would support a diagnosis of endometrial atrophy. However, the scant material received may not be fully customer relations representative of the endometrium. Clinical correlation is recommended. 07/24/2024 11:07 AM [facility] Clinical Information Hematuria (? PMB) 07/24/2024 11:07 AM [facility] Gross Description A. Endometrium, biopsy: Labeled with the patient's name and information. Received in formalin is an approximately 0.2 x 0.1 x 0.1 cm aggregate of soft to mucoid, white tissue fragments, which is wrapped in paper and submitted in toto in one cassette, multiple pieces, x2. Please note: Small tissue fragments may not survive processing. [email or web address] 07/24/2024 11:07 AM [facility] Disclaimer Unless otherwise specified, all tissue is 10% NB formalin fixed and paraffin embedded. 07/24/2024 11:07 AM [facility] Tissue Endometrial structure / Unknown 07/22/2024 07/23/2024 7:03 AM EST us Elvira Damon MD LAB PATHOLOGY ORDERABLES Final Result [facility] [address] [place] [address], documented in this encounter Visit Diagnoses Diagnosis Hematuria, unspecified documented in this encounter Care Teams Hhas Relationship Specialty Start Date End Date Dede Pimentel NP [address] [address] PCP - General Family Medicine 05/02/24 documented as of this encounter
--- OUTSIDE RECORDS SUMMARY | 2024-08-19 17:41 | XMS_ITS | Encounter Summary ---
Author Organization [facility] Address [address] [place] [address] Care Team Providers Care Customer Service Representative Teller Name Role Phone Eleazar Gleason MD Primary Care Provider [phone] Encounter Details Date Type Department Care Team [...] by Dr. Gleason. She was transported by [employer] and arrives three hours early for herappointment. [...] comfortably watching TV in the recliner. 1144- Lisa carrillo, programmed to infuse over 30 minutes per protocol. Patient reminded of signs/symptoms of infusion reaction to be aware of. The call estrada is located in reach. 1228- Patient completed the remainder of the infusion without any difficulty. She is feeling well for discharge. No further appointments booked as the order is now complete. Patient will follow up with Dr. Gleason as scheduled at [facility]. She left the unit stable, ambulatory using rolling walker accompanied by the [facility] staff who has returned to pick patient up. documented in this encounter Plan of Treatment Upcoming Encounters Date Type Department Care Team (Late st Contact Info) Description 08/25/2024 9:00 AM EST PACE Attendance/Day Center [facility] PACE Day Center [address] [place] [address] 08/27/2024 9:00 AM EST PACE Attendance/Day Center [facility] PACE Day Center [address] [place] [address] 09/01/2024 9:00 AM EDT PACE Attendance/Day Center [facility] PACE Day [address] [address] 09/03/2024 9:00 AM EDT PACE Attendance/Day Center [facility] P[facility] Day Center [address] [place] [address] 09/08/2024 9:00 AM EDT PACE Attendance/Day Center [facility] PACE Day Center [address] [place] [address] 09/10/2024 9:00 AM EDT PACE Attendance/Day Center [facility] PACE Day [address] [address] 09/15/2024 9:00 AM EDT PACE Attendance/Day Center [facility] PACE Day [address] [address] 09/17/2024 9:00 AM EDT [facility] Day Center [address] [place] [address] 09/22/2024 9:00 AM EDT [facility] [place] [facility] [address] [place] [address] 09/24/2024 9:00 AM EDT [facility] Day Center [address] [place] [address] 09/29/2024 9:00 AM EDT [facility] P[facility] Day Center [address] [place] [address] 09/29/2024 11:00 AM EDT Appointment [facility] CT Scan [address] [place] [address] 10/01/2024 9:00 AM EDT [facility] P[facility] Day Center [address] [place] [address] 10/06/2024 9:00 AM EDT [facility] PACE Day [address] [address] 10/06/2024 11:00 AM EDT Appointment [facility] Ultrasound [address] [place] [address] 10/08/2024 9:00 AM EDT [facility] Day Center [address] [place] [address] 10/13/2024 9:00 AM EDT [facility] P[facility] Day Center [address] [place] [address] 10/15/2024 9:00 AM EDT [facility] P[facility] Day Center [address] [place] [address] 10/20/2024 9:00 AM EDT [facility] P[facility] Day Center [address] [place] [address] 10/22/2024 9:00 AM EDT [facility] [place] [facility] [address] [place] [address] 10/27/2024 9:00 AM EDT [facility] P[facility] Day Center [address] [place] [address] 10/29/2024 9:00 AM EDT [facility] P[facility] Day Center [address] [place] [address] 11/03/2024 9:00 AM EDT [facility] PACE Day [address] [address] 11/05/2024 9:00 AM EDT [facility] PACE Day [address] [address] 11/10/2024 9:00 AM EDT [facility] PACE Day [address] [address] 11/10/2024 9:45 AM EDT Office Visit [facility] [address] [address] Gemini Simmons MD [address] [address] 11/12/2024 9:00 AM EDT [facility] [place] [facility] [address] [place] [address] 11/17/2024 9:00 AM EDT [facility] [place] [facility] [address] [place] [address] 11/19/2024 9:00 AM EDT [facility] P[facility] Day Center [address] [place] [address] 11/24/2024 9:00 AM EDT PACE Attendance[place] [facility] [place] [address] [place] [address] 11/26/2024 9:00 AM EDT PACE Attendance[place] [facility] [place] [address] [place] [address] 12/01/2024 9:00 AM EDT PACE Attendance[place] [facility] [place] [address] [place] [address] 12/03/2024 9:00 AM EDT PACE Attendance[place] [facility] [place] [address] [place] [address] 12/08/2024 9:00 AM EDT PACE Attendance[place] [facility] [place] [address] [place] [address] 12/10/2024 9:00 AM EDT PACE Attendance[place] [facility] [place] [address] [place] [address] 12/15/2024 9:00 AM EDT PACE Attendance[place] [facility] [place] [address] [place] [address] 12/17/2024 9:00 AM EDT PACE Attendance[place] [facility] [place] [address] [place] [address] 12/22/2024 9:00 AM EDT P[facility] Attendance[facility] [place] [facility] [place] [facility] [address] [place] [address] 12/24/2024 9:00 AM EDT P[facility] Attendance[facility] [place] [facility] [place] [facility] [address] [place] [address] 12/29/2024 9:00 AM EDT PACE Attendance[facility] [facility] [place] [facility] [facility] [address] [place] [address] 12/31/2024 9:00 AM EDT PACE Attendance[facility] [facility] [place] [facility] [facility] [address] [place] [address] 01/05/2025 9:00 AM EDT P[facility] Attendance[facility] [facility] [place] [facility] [facility] [address] [place] [address] 01/07/2025 9:00 AM EDT P[facility] Attendance[facility] [facility] [place] [facility] [facility] [address] [place] [address] 01/12/2025 9:00 AM EDT PACE Attendance[place] [facility] [place] [address] [place] [address] 01/14/2025 9:00 AM EDT PACE Attendance[place] [facility] [place] [facility] [address] [place] [address] 01/19/2025 9:00 AM EDT PACE Attendance[place] [facility] [place] [address] [place] [address] 01/21/2025 9:00 AM EDT P[facility] Attendance[facility] [place] [facility] [place] [facility] [address] [place] [address] 01/26/2025 9:00 AM EDT P[facility] Attendance[facility] [place] [facility] [place] [facility] [address] [place] [address] 01/28/2025 9:00 AM EDT P[facility] Attendance[facility] [facility] [place] [facility] [address] [place] [address] 02/02/2025 9:00 AM EDT P[facility] Attendance[facility] [facility] [place] [facility] [facility] [address] [place] [address] 02/04/2025 9:00 AM EDT PACE Attendance[facility] [facility] [place] [facility] [address] [place] [address] 02/09/2025 9:00 AM EDT PACE Attendance[place] [facility] [place] [address] [place] [address] 02/11/2025 9:00 AM EDT PACE Attendance[place] [facility] [place] [address] [place] [address] 02/16/2025 9:00 AM EDT PACE Attendance[place] [facility] [place] [address] [place] [address] 02/18/2025 9:00 AM EDT PACE Attendance[place] [facility] [place] [address] [place] [address] 02/23/2025 9:00 AM EDT PACE Attendance[place] [facility] [place] [facility] [address] [place] [address] 02/25/2025 9:00 AM EDT PACE Attendance[place] [facility] [place] [address] [place] [address] 03/02/2025 9:00 AM EDT PACE Attendance[place] [facility] [place] [address] [place] [address] 03/04/2025 9:00 AM EDT PACE Attendance[place] [facility] [place] [address] [place] [address] 03/09/2025 9:00 AM EDT PACE Attendance[place] [facility] [place] [address] [place] [address] 03/11/2025 9:00 AM EDT P[facility] Attendance[facility] [place] [facility] [address] [place] [address] 03/16/2025 9:00 AM EDT P[facility] Attendance[facility] [facility] [place] [facility] [address] [place] [address] 03/18/2025 9:00 AM EDT PACE Attendance[facility] [place] [facility] [place] [facility] [address] [place] [address] 03/23/2025 9:00 AM EDT P[facility] Attendance[facility] [place] [facility] [place] [facility] [address] [place] [address] 03/25/2025 9:00 AM EDT P[facility] Attendance[facility] [place] [facility] [place] [facility] [address] [place] [address] 03/30/2025 9:00 AM EDT P[facility] Attendance[facility] [place] [facility] [address] [place] [address] 04/01/2025 9:00 AM EDT PACE Attendance[place] [facility] [place] [address] [place] [address] 04/06/2025 9:00 AM EDT PACE Attendance[place] [facility] [place] [facility] [facility] [address] [place] [address] 04/08/2025 9:00 AM EDT PACE Attendance[facility] [place] [facility] [place] [facility] [address] [place] [address] 04/13/2025 9:00 AM EDT PACE Attendance[facility] [place] [facility] [place] [facility] [address] [place] [address] 04/15/2025 9:00 AM EDT PACE Attendance[facility] [place] [facility] [place] [facility] [facility] [address] [place] [address] 04/20/2025 9:00 AM EDT P[facility] Attendance[facility] [facility] [place] [facility] [facility] [address] [place] [address] 04/22/2025 9:00 AM EDT P[facility] Attendance[facility] [facility] [place] [facility] [facility] [address] [place] [address] 04/27/2025 9:00 AM EST [facility] [place] [facility] [address] [place] [address] 04/29/2025 9:00 AM EST PACE Attendance/[place] [facility] [place] [facility] [facility] [address] [place] [address] 05/04/2025 9:00 AM EST PACE Attendance[facility] [facility] [place] [facility] [address] [place] [address] 05/06/2025 9:00 AM EST PACE Attendance[facility] [place] [facility] [place] [facility] [address] [place] [address] 05/11/2025 9:00 AM EST PACE Attendance[facility] [facility] [place] [facility] [facility] [address] [place] [address] 05/13/2025 9:00 AM EST PACE Attendance[facility] [place] [facility] [facility] [address] [place] [address] 05/18/2025 9:00 AM EST PACE Attendance[facility] [facility] [place] [facility] [facility] [address] [place] [address] 05/20/2025 9:00 AM EST PACE Attendance[facility] [place] [facility] [place] [facility] [facility] [address] [place] [address] 05/25/2025 9:00 AM EST PACE Attendance[facility] [place] [facility] [place] [facility] [facility] [address] [place] [address] 05/27/2025 9:00 AM EST PACE Attendance[facility] [facility] [place] [facility] [facility] [address] [place] [address] 06/01/2025 9:00 AM EST PACE Attendance[facility] [facility] [place] [facility] [facility] [address] [place] [address] 06/03/2025 9:00 AM EST P[place] Attendance[facility] [facility] [place] [facility] [address] [place] [address] 06/08/2025 9:00 AM EST P[place] Attendance[facility] [facility] [place] [facility] [facility] [address] [place] [address] 06/10/2025 9:00 AM EST P[place] Attendance[facility] [facility] [place] [facility] [facility] [address] [place] [address] 06/15/2025 9:00 AM EST [facility] [place] [facility] [address] [place] [address] 06/17/2025 9:00 AM EST PACE Attendance[facility] [facility] [place] [facility] [facility] [address] [place] [address] 06/22/2025 9:00 AM EST [facility] [place] [facility] [address] [place] [address] 06/24/2025 9:00 AM EST PACE Attendance[facility] [facility] [place] [facility] [facility] [address] [place] [address] 06/29/2025 9:00 AM EST [facility] [place] [facility] [address] [place] [address] 07/01/2025 9:00 AM EST [facility] [place] [facility] [address] [place] [address] 07/06/2025 9:00 AM EST PACE Attendance[facility] [facility] [place] [facility] [facility] [address] [place] [address] 2025 9:00 AM EST PACE Attendance[facility] [facility] [place] [facility] [facility] [address] [place] [address] 07/13/2025 9:00 AM EST PACE Attendance/[place] [facility] [place] [facility] [address] [place] [address] 07/15/2025 9:00 AM EST PACE Attendance/Day [place] [email or web address] [place] [facility] [address] [place] [address] 07/20/2025 9:00 AM EST PACE Attendance/[place] [facility] [place] [facility] [address] [place] [address] 07/22/2025 9:00 AM EST PACE Attendance[facility] [facility] [place] [facility] [facility] [address] [place] [address] 07/27/2025 9:00 AM EST PACE Attendance/[place] [email or web address] [place] [facility] [address] [place] [address] 07/29/2025 9:00 AM EST PACE Attendance[place] [email or web address] [place] [facility] [address] [place] [address] 08/03/2025 9:00 AM EST PACE Attendance/Day [place] [facility] [place] [facility] [address] [place] [address] documented as of this encounter Visit Diagnoses Not on filedocumented in this encounter Care Teams Customer Service Representative Teller Relationship Specialty Start Date End Date Eleazar Gleason MD [address] [address] PCP - General 04/11/24 05/01/24 documented as of this encounter
--- OUTSIDE RECORDS SUMMARY | 2024-08-19 17:41 | XMS_ITS | Encounter Summary ---
Author Organization [facility] Address [address] [place] [address] Care Team Providers Care Gem Stone Cutter Name Role Phone Dede Pimentel BANDER OPERATOR Primary Care Provider [phone] Encounter Details Date Type Department Care Team (Late Contact Info) Description 07/04/2024 Lab Requisition [facility] - Main Lab [address] [facility] [place] [address] Dede Pimentel NP [address] [address] Encounter for general adult medical examination without abnormal findings; Encounter for screening mammogram for malignant neoplasm of breast; Encounter for screening for osteoporosis; Other specified disorders of bone density and structure, multiple sites; Encounter for screening for malignant neoplasm of colon Social History Tobacco Use Types Packs/Day Years [...] Description 08/25/2024 9:00 AM EST PACE Attendance/Day [facility] [address] [place] [phone] 08/27/2024 9:00 AM EST PACE Attendance/[place] [facility] [place] [facility] [address] [place] [address] 09/01/2024 9:00 AM EDT PACE Attendance/Day Center [facility] [place] [facility] [address] [place] [address] 09/03/2024 9:00 AM EDT PACE Attendance/[place] [place] [facility] [address] [place] [address] 09/08/2024 9:00 AM EDT [place] Attendance[place] [facility] [facility] [address] [place] [phone] 09/10/2024 9:00 AM EDT [facility] [address] [place] [address] 09/15/2024 9:00 AM EDT PACE Attendance[place] [facility] [facility] [address] [place] [phone] 09/17/2024 9:00 AM EDT PACE Attendance/[place] [facility] [place] [facility] [address] [place] [address] 09/22/2024 9:00 AM EDT PACE Attendance[place] [facility] [facility] [address] [place] [phone] 09/24/2024 9:00 AM EDT PACE Attendance[place] [facility] [facility] [address] [place] [address] 09/29/2024 9:00 AM EDT P[place] Attendance[place] [address] [place] [address] 09/29/2024 11:00 AM EDT Appointment [facility] CT Scan [address] [place] [address] 10/01/2024 9:00 AM EDT PACE Attendance/Day Center [facility] [place] [facility] [address] [place] [address] 10/06/2024 9:00 AM EDT [facility] [place] [facility] [address] [place] [address] 10/06/2024 11:00 AM EDT Appointment [address] [address] 10/08/2024 9:00 AM EDT [facility] [place] [facility] [address] [place] [address] 10/13/2024 9:00 AM EDT [facility] [place] [facility] [address] [place] [phone] 10/15/2024 9:00 AM EDT [facility] [place] [facility] [address] [place] [address] 10/20/2024 9:00 AM EDT [facility] [place] [facility] [address] [place] [phone] 10/22/2024 9:00 AM EDT [facility] [place] [facility] [address] [place] [phone] 10/27/2024 9:00 AM EDT PACE Attendance/Day Center [facility] [place] [facility] [address] [place] [address] 10/29/2024 9:00 AM EDT PACE Attendance[place] [facility] [place] [facility] [address] [place] [address] 11/03/2024 9:00 AM EDT P[place] Att[place] [facility] [address] [place] [address] 11/05/2024 9:00 AM EDT P[place] Att[place] [facility] [address] [place] [phone] 11/10/2024 9:00 AM EDT PACE Attendance/Day [facility] [place] [facility] [address] [place] [phone] 11/10/2024 9:45 AM EDT Office Visit [facility] [address] [place] [address] Gemini Simmons MD [address] [facility] [address] [place] [address] 11/12/2024 9:00 AM EDT PACE Attendance/Day [place] [facility] [place] [address] [place] [phone] 11/17/2024 9:00 AM EDT [facility] [place] [facility] [address] [place] [phone] 11/19/2024 9:00 AM EDT [facility] [place] [address] [place] [phone] 11/24/2024 9:00 AM EDT [facility] [place] [address] [place] [address] 11/26/2024 9:00 AM EDT [facility] [place] [facility] [address] [place] [address] 12/01/2024 9:00 AM EDT [facility] [place] [facility] [address] [place] [address] 12/03/2024 9:00 AM EDT [facility] [place] [facility] [address] [place] [phone] 12/08/2024 9:00 AM EDT [facility] [place] [facility] [address] [place] [address] 12/10/2024 9:00 AM EDT [place] Attendance[place] [facility] [place] [address] [place] [address] 12/15/2024 9:00 AM EDT [place] Attendance[place] [facility] [place] [address] [place] [address] 12/17/2024 9:00 AM EDT P[place] Attendance[place] [facility] [place] [address] [place] [address] 12/22/2024 9:00 AM EDT P[place] Attendance[place] [facility] [place] [address] [place] [address] 12/24/2024 9:00 AM EDT P[place] Attendance[place] [facility] [place] [address] [place] [address] 12/29/2024 9:00 AM EDT P[place] Attendance[place] [facility] [place] [address] [place] [address] 12/31/2024 9:00 AM EDT PACE Attendance[facility] [facility] [place] [address] [place] [address] 01/05/2025 9:00 AM EDT PACE Attendance[place] [facility] [place] [address] [place] [address] 01/07/2025 9:00 AM EDT [place]ACE Attendance[place] [facility] [place] [address] [place] [address] 01/12/2025 9:00 AM EDT PACE Attendance[place] [facility] [place] [address] [place] [address] 01/14/2025 9:00 AM EDT PACE Attendance[facility] [facility] [place] [address] [place] [phone] 01/19/2025 9:00 AM EDT P[place] Attendance[facility] [facility] [place] [address] [place] [address] 01/21/2025 9:00 AM EDT P[place] Attendance[place] [facility] [place] [address] [place] [address] 01/26/2025 9:00 AM EDT PACE Attendance[place] [facility] [place] [address] [place] [address] 01/28/2025 9:00 AM EDT P[place] Attendance[facility] [facility] [place] [address] [place] [address] 02/02/2025 9:00 AM EDT P[place] Attendance[facility] [facility] [place] [address] [place] [address] 02/04/2025 9:00 AM EDT PACE Attendance[facility] [facility] [place] [address] [place] [address] 02/09/2025 9:00 AM EDT PACE Attendance[facility] [facility] [place] [facility] [address] [place] [address] 02/11/2025 9:00 AM EDT PACE Attendance[facility] [facility] [place] [facility] [address] [place] [address] 02/16/2025 9:00 AM EDT PACE Attendance[place] [facility] [place] [address] [place] [address] 02/18/2025 9:00 AM EDT PACE Attendance[facility] [facility] [place] [address] [place] [address] 02/23/2025 9:00 AM EDT PACE Attendance[facility] [facility] [place] [address] [place] [address] 02/25/2025 9:00 AM EDT PACE Attendance/[place] [facility] [place] [address] [place] [address] 03/02/2025 9:00 AM EDT PACE Attendance[facility] [facility] [place] [address] [place] [address] 03/04/2025 9:00 AM EDT P[place] Attendance[facility] [facility] [place] [address] [place] [address] 03/09/2025 9:00 AM EDT PACE Attendance[facility] [facility] [place] [address] [place] [address] 03/11/2025 9:00 AM EDT P[place] Attendance[facility] [facility] [place] [address] [place] [phone] 03/16/2025 9:00 AM EDT PACE Attendance/[place] [facility] [place] [address] [place] [address] 03/18/2025 9:00 AM EDT PACE Attendance[facility] [facility] [place] [address] [place] [address] 03/23/2025 9:00 AM EDT PACE Attendance[facility] [facility] [place] [address] [place] [address] 03/25/2025 9:00 AM EDT PACE Attendance[facility] [facility] [place] [address] [place] [address] 03/30/2025 9:00 AM EDT PACE Attendance[facility] [facility] [place] [address] [place] [address] 04/01/2025 9:00 AM EDT PACE Attendance[facility] [facility] [place] [address] [place] [address] 04/06/2025 9:00 AM EDT PACE Attendance[facility] [facility] [place] [address] [place] [address] 04/08/2025 9:00 AM EDT PACE Attendance[facility] [facility] [place] [address] [place] [address] 04/13/2025 9:00 AM EDT PACE Attendance[facility] [facility] [place] [address] [place] [address] 04/15/2025 9:00 AM EDT PACE Attendance[facility] [facility] [place] [address] [place] [address] 04/20/2025 9:00 AM EDT PACE Attendance[facility] [facility] [place] [address] [place] [address] 04/22/2025 9:00 AM EDT PACE Attendance[facility] [facility] [place] [address] [place] [address] 04/27/2025 9:00 AM EST PACE Attendance[facility] [facility] [place] [address] [place] [address] 04/29/2025 9:00 AM EST PACE Attendance[facility] [facility] [place] [address] [place] [address] 05/04/2025 9:00 AM EST PACE Attendance[facility] [facility] [place] [address] [place] [address] 05/06/2025 9:00 AM EST PACE Attendance/[place] [facility] [place] [address] [place] [address] 05/11/2025 9:00 AM EST PACE Attendance[facility] [facility] [place] [address] [place] [address] 05/13/2025 9:00 AM EST [facility] [place] [facility] [address] [place] [address] 05/18/2025 9:00 AM EST PACE Attendance[facility] [facility] [place] [address] [place] [address] 05/20/2025 9:00 AM EST PACE Attendance[place] [facility] [place] [address] [place] [address] 05/25/2025 9:00 AM EST PACE Attendance[facility] [facility] [place] [address] [place] [address] 05/27/2025 9:00 AM EST PACE Attendance[place] [facility] [place] [facility] [address] [place] [address] 06/01/2025 9:00 AM EST PACE Attendance/[place] [facility] [place] [address] [place] [address] 06/03/2025 9:00 AM EST PACE Attendance[facility] [facility] [place] [address] [place] [address] 06/08/2025 9:00 AM EST PACE Attendance[facility] [facility] [place] [address] [place] [address] 06/10/2025 9:00 AM EST PACE Attend[place] [facility] [place] [address] [place] [address] 06/15/2025 9:00 AM EST PACE Attendance[facility] [facility] [place] [address] [place] [address] 06/17/2025 9:00 AM EST P[place] Attend[place] [facility] [place] [address] [place] [address] 06/22/2025 9:00 AM EST PACE Attendance[place] [facility] [place] [address] [place] [address] 06/24/2025 9:00 AM EST PACE Attendance[place] [facility] [place] [address] [place] [address] 06/29/2025 9:00 AM EST PACE Attendance[facility] [facility] [place] [address] [place] [address] 07/01/2025 9:00 AM EST PACE Attendance[facility] [facility] [place] [address] [place] [address] 07/06/2025 9:00 AM EST [facility] [place] [facility] [address] [place] [phone] 2025 9:00 AM EST P[facility]end[facility] [place] [facility] [address] [place] [address] 07/13/2025 9:00 AM EST PACE Attendance[facility] [facility] [place] [address] [place] [address] 07/15/2025 9:00 AM EST PACE Attendance[facility] [facility] [place] [address] [place] [address] 07/20/2025 9:00 AM EST PACE Attend[place] [facility] [place] [facility] [address] [place] [phone] 07/22/2025 9:00 AM EST PACE Attendance[facility] [facility] [place] [facility] [address] [place] [address] 07/27/2025 9:00 AM EST PACE Attendance[place] [facility] [place] [facility] [address] [place] [address] 07/29/2025 9:00 AM EST PACE Attendance[place] [facility] [place] [address] [place] [address] 08/03/2025 9:00 AM EST PACE Attendance/Day Center [facility] Day Center [address] [place] [address] documented as of this encounter Procedures Procedure Name Priority Date/Time Associated Diagnosis Comments URINALYSIS WITH REFLEX MICROSCOPIC AND CULTURE Routine 07/04/2024 8:00 AM EST Encounter for general adult medical examination without abnormal findings Encounter for screening mammogram for malignant neoplasm of breast Encounter for screening for osteoporosis Other specified disorders of bone density and structure, multiple sites Encounter for screening for malignant neoplasm of colon FERNANDEZ URINE CULTURE TUBE Routine 07/04/2024 8:00 [...] for screening for malignant neoplasm of colon documented in this encounter Results * (ABNORMAL) Culture urine (07/04/2024 8:00 AM EST) Culture, Urine >100,000 CFU/mL Proteus mirabilis(A ) ANNETTA 07/06/2024 11:50 AM EST [facility] Comment: Edited result: Previously reported [...] Proteus mirabilis Trimethoprim/Sulfamethoxazole ANNETTA >=320 ug/ml: Resistant Dede Pimentel LAB MICROBIOLOGY - GENERAL OR DERABLES Final Result Performing Organization Address City/[facility]/ZIP Co de Phone Number [facility] [address] [place] [address], [place] [phone] * Fernandez urine culture tube (07/04/2024 8:00 AM EST) Extra Tube Hold for add-ons. 07/04/2024 3:02 PM EST [facility] Comment:Auto resulted. Urine Urine specimen obtained by clean catch procedure / Unknown 07/04/2024 8:00 AM EST 07/04/2024 1:35 PM EST Dede Pimentel BANDER OPERATOR LAB URINE ORDERABLES Final Re sult Performing Organization Address [facility]/ZIP Co de Phone Number [facility] [address] [place] [address], [place] [phone] * (ABNORMAL) Urinalysis with reflex microscopic and culture (07/04/2024 8:00 AM EST) Specific [place] Urine 1.036(H) 1.003 - 1.030 LAB URINALYSIS - AUTOMATED METHOD 07/04/2024 2:20 PM [facility] pH, Urine 8.0 5.0 - 8.0 pH LAB URINALYSIS - AUTOMATED METHOD 07/04/2024 2:20 PM [facility] Leukocytes, Urine Moderate(A) Negative LAB URINALYSIS - AUTOMATED METHOD 07/04/2024 2:20 PM [facility] Nitrite, Urine Positive(A) Negative LAB URINALYSIS - AUTOMATED METHOD 07/04/2024 2:20 PM [facility] Protein, Urine 100(A) <=Trace mg/dL LAB URINALYSIS - AUTOMATED METHOD 07/04/2024 2:20 PM [facility] Glucose, Urine Negative Negative mg/dL LAB URINALYSIS - AUTOMATED METHOD 07/04/2024 2:20 PM [facility] Ketones, Urine Trace(A) Negative mg/dL LAB URINALYSIS - AUTOMATED METHOD 07/04/2024 2:20 PM [facility] Urobilinogen , Urine 1.0 0.2 - 1.0 mg/dL LAB URINALYSIS - AUTOMATED METHOD 07/04/2024 2:20 PM [facility] Bilirubin, Urine Negative Negative LAB URINALYSIS - AUTOMATED METHOD 07/04/2024 2:20 PM [facility] Blood, Urine Trace(A) Negative LAB URINALYSIS - AUTOMATED METHOD 07/04/2024 2:20 PM [facility] RBC, Urine 14.3(H) 0 - 4 /HPF LAB URINALYSIS - AUTOMATED METHOD 07/04/2024 2:20 PM [facility] WBC, Urine 295.7(H) 0 - 4 /HPF LAB URINALYSIS - AUTOMATED METHOD 07/04/2024 2:20 PM EST [facility] Squamous Epithelial, Urine 64(H) 0 - 60 /LPF LAB URINALYSIS - AUTOMATED METHOD 07/04/2024 2:20 PM [facility] Crystals, Urine LT TRIPLE PHOSPHATE /LPF LAB URINALYSIS - AUTOMATED METHOD 07/04/2024 2:20 PM [facility] Bacteria, Urine Many(A) Negative /HPF LAB URINALYSIS - AUTOMATED METHOD 07/04/2024 2:20 PM [facility] Hyaline Casts, Urine 4.2(H) 0 - 3 /LPF LAB URINALYSIS - AUTOMATED METHOD 07/04/2024 2:20 PM [facility] Urine Urine specimen obtained by clean catch procedure / Unknown 07/04/2024 8:00 AM EST 07/04/2024 1:35 PM EST Dede Pimentel NP LAB URINE ORDERABLES Final Re sult [facility] [address] [place] [address], [place] [phone] documented in this encounter Visit Diagnoses Diagnosis Encounter for general adult medical examination without abnormal findings Encounter for screening mammogram for malignant neoplasm of breast Encounter for screening for osteoporosis Other specified disorders of bone density and structure, multiple sites Encounter for screening for malignant neoplasm of colon documented in this encounter Care Teams Gem Stone Cutter Relationship Specialty Start Date End Date Dede Pimentel NP [address] [place] [phone] PCP - General Family Medicine 05/02/24 documented as of this encounter
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
--- NOTE | 2024-08-19 18:31 | PC.NURSE ---
No nurse to nurse obtained as pt was a direct admit from her home.
[2024-08-19 20:00] VITALS: BP 143/84; PULSE 85; RESP 18; TEMP 35.8; O2SAT 96
[2024-08-19 20:14] LABS: Alanine Aminotransferase 25 U/L (0-31); Albumin Level 4.3 g/dL (3.5-5.0); Alkaline Phosphatase 123 U/L (39-117); Anion Gap 13 (12-20); Aspartate Amino Transferase 33 U/L (5-31); Bilirubin Total 0.5 mg/dL (0.0-1.0); Blood Urea Nitrogen 16 mg/dL (9-16); Calcium 10.2 mg/dL (8.4-10.2); Carbon Dioxide 30 mmol/L (22-29); Chloride 101 mmol/L (96-108); Creatinine Clr Calc Pharmacy 77.9; Estimated Glomerular Filt Rate > 60; Glucose Random 118 mg/dL (60-115); Potassium 3.8 mmol/L (3.3-5.1); Sodium 140 mmol/L (135-145); Total Protein 8.7 g/dL (6.5-8.0)
[2024-08-19] MEDS: Apixaban 5 MG TABLET PO (22:30)
[2024-08-19] MEDS: Gabapentin 300 MG CAPSULE 600 MG PO (22:30)
[2024-08-19] MEDS: OXcarbazepine 300 MG TABLET 600 MG PO (22:30)
[2024-08-19] MEDS: Potassium Chloride ER 10 MEQ TABLET.ER PO (22:30)
[2024-08-19] MEDS: LORazepam 1 MG TABLET PO (22:31)
[2024-08-19] MEDS: Melatonin 3 MG TABLET PO (22:31)
[2024-08-19] MEDS: Atorvastatin Calcium 80 MG TABLET PO (22:31)
[2024-08-19] MEDS: Cyclobenzaprine HCl 10 MG TABLET PO (22:31)
[2024-08-19] MEDS: traZODone HCL 50 MG TABLET PO (22:32)
[2024-08-19] MEDS: QUEtiapine Fumarate 50 MG TABLET 150 MG PO (22:32)
[2024-08-20] MEDS: Omeprazole 20 MG CAPSULE.DR PO (06:04)
[2024-08-20 08:00] VITALS: BP 123/69; PULSE 96; RESP 18; TEMP 36.5; O2SAT 92
[2024-08-20] MEDS: Albuterol/Iprat 2.5/0.5MG 3 ML AMPUL.NEB INHALE ×3 (08:35→20:10)
[2024-08-20 08:36] VITALS: PULSE 85; RESP 18; O2SAT 96
[2024-08-20] MEDS: LORazepam 1 MG TABLET PO ×3 (08:50→20:56)
[2024-08-20] MEDS: Potassium Chloride ER 10 MEQ TABLET.ER PO ×2 (08:50→20:55)
[2024-08-20] MEDS: metFORMIN HCl 500 MG TABLET PO (08:51)
[2024-08-20] MEDS: Gabapentin 300 MG CAPSULE 600 MG PO ×3 (08:51→20:54)
[2024-08-20] MEDS: Metoprolol Succinate ER 25 MG TAB.ER.24H PO (08:51)
[2024-08-20] MEDS: FLUoxetine HCl 20 MG CAPSULE PO (08:52)
[2024-08-20] MEDS: Cholecalciferol (Vitamin D3) 25 MCG TABLET PO (08:52)
[2024-08-20] MEDS: Cyclobenzaprine HCl 10 MG TABLET PO ×2 (08:52→20:54)
[2024-08-20] MEDS: OXcarbazepine 300 MG TABLET 600 MG PO ×2 (08:53→20:53)
[2024-08-20] MEDS: Aspirin 81 MG TAB.CHEW PO (08:53)
[2024-08-20] MEDS: Apixaban 5 MG TABLET PO ×2 (08:55→20:56)
[2024-08-20] MEDS: Bumetanide 1 MG TABLET PO (08:55)
[2024-08-20] MEDS: polyethylene glycoL 3350 17 GM POWD.PACK PO (08:56)
[2024-08-20] MEDS: Nicotine 21 MG PATCH.TD24 TRANSDERMA (08:58)
[2024-08-20] MEDS: Fluticasone/Umeclidinium/Vilanterol 100/62.5/25 BLST.W.DEV 1 PUFF INHALE (08:58)
[2024-08-20 09:34] LABS: Estimated Average Glucose 108 mg/dL; Hemoglobin A1C 134.0252 umol/L; Hemoglobin A1c % 5.4 % (<6.0); Total Hemoglobin (HGBA1C) 3728.0197 umol/L
[2024-08-20 09:49] LABS: Cholesterol 124 mg/dL (<200); HDL Cholesterol 48 mg/dL (>40); LDL Cholesterol Calculated 50 mg/dL (<100); Triglycerides 130 mg/dL (<150)
[2024-08-20 10:02] LABS: Thyroid Stimulating Hormone 0.82 uIU/mL (0.32-4.0)
[2024-08-20 10:20] LABS: Folate 11.2 ng/mL (> or = 4.0); Vitamin B12 365 pg/mL (200-900)
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
[2024-08-20 14:33] VITALS: PULSE 85; RESP 18; O2SAT 92
--- NOTE | 2024-08-20 15:41 | MHC.CLN ---
NUTRITION CONSULT FOR REPORTED WEIGHT LOSS. REPORTS WEIGHT LOSS SINCE JUNE. NO REPORTED CONCERNS WITH CURRENT APPETITE OF INTAKE. LIMITED PO DOC SHOWS GOOD INTAKE AT MEALS. BMI=38.3, OBESE. DIET=DIABETIC 2000 KCALS. NO ADDITIONAL NUTRITION INTERVENTIONS AT THIS TIME.
[2024-08-20 20:00] VITALS: BP 130/77; PULSE 89; RESP 16; TEMP 36.6; O2SAT 92
[2024-08-20 20:12] VITALS: PULSE 76; RESP 18; O2SAT 94
[2024-08-20 20:53] VITALS: BP 130/77
[2024-08-20] MEDS: Prazosin HCL 1 MG CAPSULE 2 MG PO (20:53)
[2024-08-20] MEDS: Atorvastatin Calcium 80 MG TABLET PO (20:55)
[2024-08-20] MEDS: QUEtiapine Fumarate 400 MG TABLET PO (20:56)
[2024-08-20] MEDS: traZODone HCL 50 MG TABLET PO (20:56)
[2024-08-20] MEDS: Melatonin 3 MG TABLET PO (20:57)
[2024-08-21] MEDS: Omeprazole 20 MG CAPSULE.DR PO (06:25)
[2024-08-21 08:00] VITALS: BP 121/69; PULSE 77; RESP 19; TEMP 36.8; O2SAT 94
[2024-08-21] MEDS: Albuterol/Iprat 2.5/0.5MG 3 ML AMPUL.NEB INHALE (08:48)
[2024-08-21 08:51] VITALS: PULSE 76; RESP 16; O2SAT 96
[2024-08-21] MEDS: Fluticasone/Umeclidinium/Vilanterol 100/62.5/25 BLST.W.DEV 1 PUFF INHALE (09:17)
[2024-08-21] MEDS: Cholecalciferol (Vitamin D3) 25 MCG TABLET PO (09:18)
[2024-08-21] MEDS: Nicotine 14 MG PATCH.TD24 TRANSDERMA (09:18)
[2024-08-21] MEDS: Gabapentin 300 MG CAPSULE 600 MG PO ×3 (09:18→20:12)
[2024-08-21] MEDS: Apixaban 5 MG TABLET PO ×2 (09:18→20:11)
[2024-08-21] MEDS: Metoprolol Succinate ER 25 MG TAB.ER.24H PO (09:19)
[2024-08-21] MEDS: Aspirin 81 MG TAB.CHEW PO (09:19)
[2024-08-21] MEDS: metFORMIN HCl 500 MG TABLET PO (09:19)
[2024-08-21] MEDS: OXcarbazepine 300 MG TABLET 600 MG PO ×2 (09:19→20:10)
[2024-08-21] MEDS: Cyclobenzaprine HCl 10 MG TABLET PO ×2 (09:19→20:52)
[2024-08-21] MEDS: FLUoxetine HCl 20 MG CAPSULE PO (09:19)
[2024-08-21] MEDS: Potassium Chloride ER 10 MEQ TABLET.ER PO ×2 (09:20→20:11)
[2024-08-21] MEDS: LORazepam 1 MG TABLET PO ×3 (09:20→20:11)
[2024-08-21] MEDS: Bumetanide 1 MG TABLET PO (09:20)
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
[2024-08-21 13:26] VITALS: BMI 38.9
[2024-08-21 20:00] VITALS: BP 123/71; PULSE 82; RESP 18; TEMP 36.4; O2SAT 94
[2024-08-21] MEDS: QUEtiapine Fumarate 400 MG TABLET PO (20:11)
[2024-08-21 20:12] VITALS: BP 123/71
[2024-08-21] MEDS: Melatonin 3 MG TABLET PO (20:12)
[2024-08-21] MEDS: Prazosin HCL 1 MG CAPSULE 2 MG PO (20:12)
[2024-08-21] MEDS: Atorvastatin Calcium 80 MG TABLET PO (20:12)
[2024-08-21] MEDS: traZODone HCL 50 MG TABLET PO (20:51)
[2024-08-22] MEDS: Omeprazole 20 MG CAPSULE.DR PO (06:12)
[2024-08-22 08:46] VITALS: BP 111/55; PULSE 82; RESP 17; TEMP 36.3; O2SAT 91
[2024-08-22] MEDS: Aspirin 81 MG TAB.CHEW PO (08:56)
[2024-08-22] MEDS: Potassium Chloride ER 10 MEQ TABLET.ER PO ×2 (08:56→20:04)
[2024-08-22] MEDS: Bumetanide 1 MG TABLET PO (08:57)
[2024-08-22] MEDS: OXcarbazepine 300 MG TABLET 600 MG PO ×2 (08:57→20:05)
[2024-08-22] MEDS: Apixaban 5 MG TABLET PO ×2 (08:57→20:05)
[2024-08-22] MEDS: metFORMIN HCl 500 MG TABLET PO (08:57)
[2024-08-22] MEDS: Gabapentin 300 MG CAPSULE 600 MG PO ×2 (08:57→14:16)
[2024-08-22] MEDS: Cyclobenzaprine HCl 10 MG TABLET PO ×2 (08:57→20:04)
[2024-08-22] MEDS: Cholecalciferol (Vitamin D3) 25 MCG TABLET PO (08:58)
[2024-08-22] MEDS: LORazepam 1 MG TABLET PO ×3 (08:58→20:05)
[2024-08-22] MEDS: FLUoxetine HCl 20 MG CAPSULE PO (08:59)
[2024-08-22] MEDS: Fluticasone/Umeclidinium/Vilanterol 100/62.5/25 BLST.W.DEV 1 PUFF INHALE (08:59)
[2024-08-22] MEDS: Nicotine 14 MG PATCH.TD24 TRANSDERMA (09:06)
[2024-08-22] MEDS: polyethylene glycoL 3350 17 GM POWD.PACK PO (09:07)
[2024-08-22] MEDS: Metoprolol Succinate ER 25 MG TAB.ER.24H PO (09:09)
--- NOTE | 2024-08-22 11:13 | PC.RT ---
pt in no resp distres. on oxygen in room sleeping. Pt nebs to be dc'd and only use prn albuterol inhaler as ordered with treangelogy daily. Spoke wit Dr. Walker
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
[2024-08-22] MEDS: Albuterol Sulfate 90 MCG 8 GM INHALER 2 PUFF INHALE (14:54)
[2024-08-22 20:00] VITALS: BP 126/70; PULSE 82; RESP 18; TEMP 36.2; O2SAT 94
[2024-08-22 20:04] VITALS: BP 120/70
[2024-08-22] MEDS: Melatonin 3 MG TABLET PO (20:04)
[2024-08-22] MEDS: Prazosin HCL 1 MG CAPSULE 2 MG PO (20:04)
[2024-08-22] MEDS: traZODone HCL 50 MG TABLET PO (20:04)
[2024-08-22] MEDS: Gabapentin 400 MG CAPSULE 800 MG PO (20:05)
[2024-08-22] MEDS: QUEtiapine Fumarate 400 MG TABLET PO (20:05)
[2024-08-22] MEDS: Atorvastatin Calcium 80 MG TABLET PO (20:05)
[2024-08-23] MEDS: Omeprazole 20 MG CAPSULE.DR PO (06:28)
[2024-08-23 08:00] VITALS: PULSE 77; TEMP 36.6; O2SAT 97
[2024-08-23] MEDS: Fluticasone/Umeclidinium/Vilanterol 100/62.5/25 BLST.W.DEV 1 PUFF INHALE (09:46)
[2024-08-23] MEDS: FLUoxetine HCl 20 MG CAPSULE PO (09:50)
[2024-08-23] MEDS: Gabapentin 400 MG CAPSULE 800 MG PO ×3 (09:50→21:13)
[2024-08-23 09:51] VITALS: BP 111/90
[2024-08-23] MEDS: OXcarbazepine 300 MG TABLET 600 MG PO ×2 (09:51→21:14)
[2024-08-23] MEDS: Cholecalciferol (Vitamin D3) 25 MCG TABLET PO (09:51)
[2024-08-23] MEDS: Bumetanide 1 MG TABLET PO (09:51)
[2024-08-23] MEDS: Cyclobenzaprine HCl 10 MG TABLET PO ×2 (09:51→21:13)
[2024-08-23] MEDS: LORazepam 1 MG TABLET PO ×3 (09:51→21:14)
[2024-08-23 09:52] VITALS: BP 102/60; PULSE 88
[2024-08-23] MEDS: Metoprolol Succinate ER 25 MG TAB.ER.24H PO (09:52)
[2024-08-23] MEDS: Aspirin 81 MG TAB.CHEW PO (09:55)
[2024-08-23] MEDS: metFORMIN HCl 500 MG TABLET PO (09:55)
[2024-08-23] MEDS: Potassium Chloride ER 10 MEQ TABLET.ER PO ×2 (09:55→21:13)
[2024-08-23] MEDS: Apixaban 5 MG TABLET PO ×2 (09:55→21:13)
[2024-08-23] MEDS: polyethylene glycoL 3350 17 GM POWD.PACK PO (09:56)
[2024-08-23] MEDS: Nicotine 14 MG PATCH.TD24 TRANSDERMA (09:56)
[2024-08-23 15:42] VITALS: PULSE 77; RESP 18; TEMP 36.6; O2SAT 97
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
[2024-08-23] MEDS: QUEtiapine Fumarate 400 MG TABLET PO (21:13)
[2024-08-23] MEDS: Prazosin HCL 1 MG CAPSULE 2 MG PO (21:14)
[2024-08-23] MEDS: traZODone HCL 50 MG TABLET PO (21:14)
[2024-08-23] MEDS: Atorvastatin Calcium 80 MG TABLET PO (21:14)
[2024-08-23] MEDS: Melatonin 3 MG TABLET PO (21:14)
[2024-08-24] MEDS: Omeprazole 20 MG CAPSULE.DR PO (06:23)
[2024-08-24 06:25] VITALS: BP 131/71; PULSE 76; RESP 16; TEMP 36.9; O2SAT 92
[2024-08-24 09:00] VITALS: BP 149/84; PULSE 96; RESP 18; TEMP 36.5; O2SAT 90
[2024-08-24 09:12] VITALS: BP 149/84
[2024-08-24] MEDS: Bumetanide 1 MG TABLET PO (09:12)
[2024-08-24 09:13] VITALS: BP 149/84; PULSE 96
[2024-08-24] MEDS: Cyclobenzaprine HCl 10 MG TABLET PO ×2 (09:13→20:26)
[2024-08-24] MEDS: Metoprolol Succinate ER 25 MG TAB.ER.24H PO (09:13)
[2024-08-24] MEDS: OXcarbazepine 300 MG TABLET 600 MG PO ×2 (09:13→20:22)
[2024-08-24] MEDS: metFORMIN HCl 500 MG TABLET PO (09:13)
[2024-08-24] MEDS: LORazepam 1 MG TABLET PO ×3 (09:13→20:22)
[2024-08-24] MEDS: Potassium Chloride ER 10 MEQ TABLET.ER PO ×2 (09:13→20:22)
[2024-08-24] MEDS: Aspirin 81 MG TAB.CHEW PO (09:14)
[2024-08-24] MEDS: Apixaban 5 MG TABLET PO ×2 (09:14→20:22)
[2024-08-24] MEDS: Cholecalciferol (Vitamin D3) 25 MCG TABLET PO (09:14)
[2024-08-24] MEDS: FLUoxetine HCl 20 MG CAPSULE PO (09:14)
[2024-08-24] MEDS: Gabapentin 400 MG CAPSULE 800 MG PO ×3 (09:14→20:22)
[2024-08-24] MEDS: Fluticasone/Umeclidinium/Vilanterol 100/62.5/25 BLST.W.DEV 1 PUFF INHALE (09:17)
[2024-08-24] MEDS: Nicotine 14 MG PATCH.TD24 TRANSDERMA (09:18)
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
[2024-08-24] MEDS: traZODone HCL 25 MG HALFTAB 12.5 MG PO ×2 (15:32→20:22)
[2024-08-24 19:48] VITALS: BP 122/70; PULSE 80; RESP 16; TEMP 36.4; O2SAT 94
[2024-08-24] MEDS: Prazosin HCL 1 MG CAPSULE 2 MG PO (20:22)
[2024-08-24] MEDS: Atorvastatin Calcium 80 MG TABLET PO (20:23)
[2024-08-24] MEDS: Melatonin 3 MG TABLET PO (20:23)
[2024-08-24] MEDS: QUEtiapine Fumarate 400 MG TABLET PO (20:23)
[2024-08-25] MEDS: Omeprazole 20 MG CAPSULE.DR PO (05:56)
[2024-08-25 08:00] VITALS: BP 130/64; PULSE 75; RESP 16; TEMP 36.3; O2SAT 97
[2024-08-25] MEDS: Fluticasone/Umeclidinium/Vilanterol 100/62.5/25 BLST.W.DEV 1 PUFF INHALE (08:00)
[2024-08-25] MEDS: polyethylene glycoL 3350 17 GM POWD.PACK PO (08:02)
[2024-08-25] MEDS: traZODone HCL 25 MG HALFTAB 12.5 MG PO ×3 (08:04→20:25)
[2024-08-25] MEDS: metFORMIN HCl 500 MG TABLET PO (08:04)
[2024-08-25] MEDS: OXcarbazepine 300 MG TABLET 600 MG PO ×2 (08:04→20:25)
[2024-08-25] MEDS: FLUoxetine HCl 20 MG CAPSULE PO (08:04)
[2024-08-25] MEDS: LORazepam 1 MG TABLET PO ×3 (08:04→20:25)
[2024-08-25] MEDS: Gabapentin 400 MG CAPSULE 800 MG PO ×3 (08:04→20:25)
[2024-08-25] MEDS: Cyclobenzaprine HCl 10 MG TABLET PO ×2 (08:04→20:25)
[2024-08-25] MEDS: Aspirin 81 MG TAB.CHEW PO (08:05)
[2024-08-25] MEDS: Metoprolol Succinate ER 25 MG TAB.ER.24H PO (08:05)
[2024-08-25] MEDS: Bumetanide 1 MG TABLET PO (08:05)
[2024-08-25] MEDS: Cholecalciferol (Vitamin D3) 25 MCG TABLET PO (08:05)
[2024-08-25] MEDS: Apixaban 5 MG TABLET PO ×2 (08:05→20:25)
[2024-08-25] MEDS: Potassium Chloride ER 10 MEQ TABLET.ER PO ×2 (08:05→20:25)
[2024-08-25] MEDS: Nicotine 14 MG PATCH.TD24 TRANSDERMA (08:09)
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
[2024-08-25] MEDS: Acetaminophen 325 MG TABLET 650 MG PO ×2 (14:37→20:25)
[2024-08-25 19:50] VITALS: BP 138/80; PULSE 80; RESP 18; TEMP 36.9; O2SAT 96
[2024-08-25] MEDS: Atorvastatin Calcium 80 MG TABLET PO (20:24)
[2024-08-25] MEDS: QUEtiapine Fumarate 400 MG TABLET PO (20:24)
[2024-08-25] MEDS: Prazosin HCL 1 MG CAPSULE 2 MG PO (20:25)
[2024-08-25] MEDS: Melatonin 3 MG TABLET PO (20:26)
[2024-08-26] MEDS: Omeprazole 20 MG CAPSULE.DR PO (06:09)
[2024-08-26 07:55] VITALS: BP 143/78; PULSE 85; RESP 18; TEMP 36.4; O2SAT 94
[2024-08-26] MEDS: traZODone HCL 25 MG HALFTAB 12.5 MG PO ×3 (08:36→21:05)
[2024-08-26] MEDS: FLUoxetine HCl 20 MG CAPSULE PO (08:36)
[2024-08-26] MEDS: metFORMIN HCl 500 MG TABLET PO (08:36)
[2024-08-26] MEDS: Potassium Chloride ER 10 MEQ TABLET.ER PO ×2 (08:36→21:04)
[2024-08-26] MEDS: Apixaban 5 MG TABLET PO ×2 (08:36→21:05)
[2024-08-26] MEDS: Cyclobenzaprine HCl 10 MG TABLET PO ×2 (08:37→21:04)
[2024-08-26] MEDS: Metoprolol Succinate ER 25 MG TAB.ER.24H PO (08:37)
[2024-08-26] MEDS: Aspirin 81 MG TAB.CHEW PO (08:37)
[2024-08-26] MEDS: Bumetanide 1 MG TABLET PO (08:37)
[2024-08-26] MEDS: OXcarbazepine 300 MG TABLET 600 MG PO ×2 (08:37→21:05)
[2024-08-26] MEDS: Nicotine 14 MG PATCH.TD24 TRANSDERMA (08:38)
[2024-08-26] MEDS: LORazepam 1 MG TABLET PO ×3 (08:38→21:05)
[2024-08-26] MEDS: Gabapentin 400 MG CAPSULE 800 MG PO ×3 (08:38→21:04)
[2024-08-26] MEDS: Acetaminophen 325 MG TABLET 650 MG PO ×3 (08:38→21:03)
[2024-08-26] MEDS: Cholecalciferol (Vitamin D3) 25 MCG TABLET PO (08:38)
[2024-08-26] MEDS: polyethylene glycoL 3350 17 GM POWD.PACK PO (08:39)
[2024-08-26] MEDS: Fluticasone/Umeclidinium/Vilanterol 100/62.5/25 BLST.W.DEV 1 PUFF INHALE (08:47)
[2024-08-26 09:37] LABS: Creatinine Clr Calc Pharmacy 94.9; Estimated Glomerular Filt Rate > 60
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
[2024-08-26 20:00] VITALS: BP 124/77; PULSE 72; RESP 18; TEMP 36.4; O2SAT 95
[2024-08-26] MEDS: QUEtiapine Fumarate 400 MG TABLET PO (21:04)
[2024-08-26] MEDS: Prazosin HCL 1 MG CAPSULE 2 MG PO (21:04)
[2024-08-26] MEDS: Atorvastatin Calcium 80 MG TABLET PO (21:05)
[2024-08-26] MEDS: Melatonin 3 MG TABLET PO (21:05)
[2024-08-26] MEDS: Throat Lozenge, Medicated LOZENGE 1 LOZENGE MUCOUS MEM (21:42)
[2024-08-27 07:55] VITALS: BP 145/70; PULSE 75; RESP 18; TEMP 37; O2SAT 94
[2024-08-27] MEDS: Apixaban 5 MG TABLET PO ×2 (08:14→20:37)
[2024-08-27] MEDS: LORazepam 1 MG TABLET PO ×3 (08:15→20:38)
[2024-08-27] MEDS: OXcarbazepine 300 MG TABLET 600 MG PO ×2 (08:15→20:39)
[2024-08-27] MEDS: Metoprolol Succinate ER 25 MG TAB.ER.24H PO (08:15)
[2024-08-27] MEDS: Cyclobenzaprine HCl 10 MG TABLET PO ×2 (08:15→20:38)
[2024-08-27] MEDS: Aspirin 81 MG TAB.CHEW PO (08:15)
[2024-08-27] MEDS: FLUoxetine HCl 20 MG CAPSULE PO (08:15)
[2024-08-27] MEDS: Potassium Chloride ER 10 MEQ TABLET.ER PO ×2 (08:16→20:39)
[2024-08-27] MEDS: metFORMIN HCl 500 MG TABLET PO (08:16)
[2024-08-27] MEDS: Acetaminophen 325 MG TABLET 650 MG PO ×3 (08:16→20:36)
[2024-08-27] MEDS: Gabapentin 400 MG CAPSULE 800 MG PO ×3 (08:16→20:38)
[2024-08-27] MEDS: traZODone HCL 25 MG HALFTAB 12.5 MG PO ×3 (08:16→20:40)
[2024-08-27] MEDS: Cholecalciferol (Vitamin D3) 25 MCG TABLET PO (08:16)
[2024-08-27] MEDS: Fluticasone/Umeclidinium/Vilanterol 100/62.5/25 BLST.W.DEV 1 PUFF INHALE (08:17)
[2024-08-27] MEDS: Bumetanide 1 MG TABLET PO (08:17)
[2024-08-27] MEDS: Nicotine 14 MG PATCH.TD24 TRANSDERMA (08:17)
[2024-08-27] MEDS: polyethylene glycoL 3350 17 GM POWD.PACK PO (08:18)
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
[2024-08-27] MEDS: LORazepam 0.5 MG TABLET PO (12:43)
[2024-08-27 20:00] VITALS: BP 113/64; PULSE 75; RESP 16; TEMP 36.6; O2SAT 95
[2024-08-27] MEDS: Atorvastatin Calcium 80 MG TABLET PO (20:37)
[2024-08-27] MEDS: Prazosin HCL 1 MG CAPSULE 2 MG PO (20:39)
[2024-08-27] MEDS: Melatonin 3 MG TABLET PO (20:39)
[2024-08-27] MEDS: QUEtiapine Fumarate 400 MG TABLET PO (20:40)
[2024-08-27] MEDS: Throat Lozenge, Medicated LOZENGE 1 LOZENGE MUCOUS MEM (21:47)
[2024-08-28] MEDS: Omeprazole 20 MG CAPSULE.DR PO (06:06)
[2024-08-28 08:24] VITALS: BP 141/67; PULSE 82; RESP 18; TEMP 36.8; O2SAT 93
[2024-08-28] MEDS: Nicotine 14 MG PATCH.TD24 TRANSDERMA (08:29)
[2024-08-28] MEDS: polyethylene glycoL 3350 17 GM POWD.PACK PO (08:29)
[2024-08-28] MEDS: LORazepam 1 MG TABLET PO ×3 (08:31→20:11)
[2024-08-28] MEDS: traZODone HCL 25 MG HALFTAB 12.5 MG PO ×3 (08:31→20:12)
[2024-08-28] MEDS: Cholecalciferol (Vitamin D3) 25 MCG TABLET PO (08:32)
[2024-08-28] MEDS: OXcarbazepine 300 MG TABLET 600 MG PO ×2 (08:32→20:11)
[2024-08-28] MEDS: Gabapentin 400 MG CAPSULE 800 MG PO ×3 (08:32→20:10)
[2024-08-28] MEDS: Acetaminophen 325 MG TABLET 650 MG PO ×3 (08:33→20:10)
[2024-08-28] MEDS: Aspirin 81 MG TAB.CHEW PO (08:33)
[2024-08-28] MEDS: Bumetanide 1 MG TABLET PO (08:34)
[2024-08-28] MEDS: FLUoxetine HCl 20 MG CAPSULE PO (08:35)
[2024-08-28] MEDS: Potassium Chloride ER 10 MEQ TABLET.ER PO ×2 (08:35→20:11)
[2024-08-28] MEDS: Apixaban 5 MG TABLET PO ×2 (08:35→20:08)
[2024-08-28] MEDS: Cyclobenzaprine HCl 10 MG TABLET PO ×2 (08:36→20:09)
[2024-08-28] MEDS: Metoprolol Succinate ER 25 MG TAB.ER.24H PO (08:36)
[2024-08-28] MEDS: metFORMIN HCl 500 MG TABLET PO (08:36)
[2024-08-28] MEDS: Fluticasone/Umeclidinium/Vilanterol 100/62.5/25 BLST.W.DEV 1 PUFF INHALE (08:52)
[2024-08-28 10:00] VITALS: BMI 40.2
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
[2024-08-28 20:00] VITALS: BP 122/76; PULSE 74; RESP 16; TEMP 36.8; O2SAT 95
[2024-08-28] MEDS: Atorvastatin Calcium 80 MG TABLET PO (20:08)
[2024-08-28] MEDS: Prazosin HCL 1 MG CAPSULE 2 MG PO (20:11)
[2024-08-28] MEDS: Melatonin 3 MG TABLET PO (20:11)
[2024-08-28] MEDS: QUEtiapine Fumarate 400 MG TABLET PO (20:12)
[2024-08-29] MEDS: Omeprazole 20 MG CAPSULE.DR PO (06:02)
[2024-08-29 08:10] VITALS: BP 131/67; PULSE 82; RESP 16; TEMP 36.5; O2SAT 93
[2024-08-29] MEDS: Nicotine 14 MG PATCH.TD24 TRANSDERMA (08:14)
[2024-08-29] MEDS: polyethylene glycoL 3350 17 GM POWD.PACK PO (08:14)
[2024-08-29] MEDS: Fluticasone/Umeclidinium/Vilanterol 100/62.5/25 BLST.W.DEV 1 PUFF INHALE (08:14)
[2024-08-29] MEDS: traZODone HCL 25 MG HALFTAB 12.5 MG PO ×2 (08:16→14:34)
[2024-08-29] MEDS: Cholecalciferol (Vitamin D3) 25 MCG TABLET PO (08:16)
[2024-08-29] MEDS: OXcarbazepine 300 MG TABLET 600 MG PO ×2 (08:16→20:03)
[2024-08-29] MEDS: Acetaminophen 325 MG TABLET 650 MG PO ×3 (08:16→20:03)
[2024-08-29] MEDS: Gabapentin 400 MG CAPSULE 800 MG PO ×3 (08:18→20:02)
[2024-08-29] MEDS: Potassium Chloride ER 10 MEQ TABLET.ER PO ×2 (08:18→20:03)
[2024-08-29] MEDS: Apixaban 5 MG TABLET PO ×2 (08:19→20:03)
[2024-08-29] MEDS: FLUoxetine HCl 20 MG CAPSULE PO (08:19)
[2024-08-29] MEDS: Cyclobenzaprine HCl 10 MG TABLET PO ×2 (08:19→20:02)
[2024-08-29] MEDS: Aspirin 81 MG TAB.CHEW PO (08:19)
[2024-08-29] MEDS: Metoprolol Succinate ER 25 MG TAB.ER.24H PO (08:20)
[2024-08-29] MEDS: LORazepam 1 MG TABLET PO ×3 (08:20→20:03)
[2024-08-29] MEDS: metFORMIN HCl 500 MG TABLET PO (08:20)
[2024-08-29] MEDS: Bumetanide 1 MG TABLET PO (08:21)
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
[2024-08-29 12:46] LABS: Appearance Urine Clear; Color Urine Yellow; Glucose Urine UA Negative (Negative); Leukocyte Esterase Urine Negative (Negative); Nitrite Urine Negative (Negative); Specific Gravity - Urine 1.015 (1.005-1.025); UMIC TRIGGER UACC YES; Urine Blood Small (1+) (Negative); Urine Ketones Negative (Negative); Urine Protein Negative (Neg-Trace)
[2024-08-29 12:51] LABS: Bacteria Urine Trace (None Seen); Hyaline Casts Urine 0-2 /LPF (0-2); WBC Urine 0-5 /HPF (0-5)
[2024-08-29 19:20] LABS: Influenza A PCR NEGATIVE (Negative); Influenza B PCR NEGATIVE (Negative); Resp Syncy Virus RNA Qual PCR NEGATIVE (Negative); SARS COV2 PCR INHOUSE NEGATIVE (Negative)
[2024-08-29 19:49] VITALS: BP 132/71; PULSE 70; RESP 18; TEMP 36.1; O2SAT 95
[2024-08-29] MEDS: Melatonin 3 MG TABLET PO (20:03)
[2024-08-29] MEDS: QUEtiapine Fumarate 400 MG TABLET PO (20:03)
[2024-08-29] MEDS: traZODone HCL 25 MG HALFTAB PO (20:03)
[2024-08-29] MEDS: Atorvastatin Calcium 80 MG TABLET PO (20:03)
[2024-08-29] MEDS: Prazosin HCL 1 MG CAPSULE 2 MG PO (20:03)
[2024-08-30] MEDS: Omeprazole 20 MG CAPSULE.DR PO (05:39)
[2024-08-30 08:53] VITALS: BP 135/72; PULSE 80; RESP 16; TEMP 37; O2SAT 93
[2024-08-30] MEDS: Nicotine 14 MG PATCH.TD24 TRANSDERMA (08:58)
[2024-08-30] MEDS: Acetaminophen 325 MG TABLET 650 MG PO ×3 (08:59→20:17)
[2024-08-30] MEDS: Metoprolol Succinate ER 25 MG TAB.ER.24H PO (08:59)
[2024-08-30] MEDS: Apixaban 5 MG TABLET PO ×2 (09:00→20:19)
[2024-08-30] MEDS: Bumetanide 1 MG TABLET PO (09:00)
[2024-08-30] MEDS: FLUoxetine HCl 20 MG CAPSULE PO (09:00)
[2024-08-30] MEDS: Potassium Chloride ER 10 MEQ TABLET.ER PO ×2 (09:00→20:16)
[2024-08-30] MEDS: OXcarbazepine 300 MG TABLET 600 MG PO ×2 (09:00→20:19)
[2024-08-30] MEDS: Gabapentin 400 MG CAPSULE 800 MG PO ×3 (09:00→20:19)
[2024-08-30] MEDS: Cholecalciferol (Vitamin D3) 25 MCG TABLET PO (09:00)
[2024-08-30] MEDS: Aspirin 81 MG TAB.CHEW PO (09:00)
[2024-08-30] MEDS: metFORMIN HCl 500 MG TABLET PO (09:01)
[2024-08-30] MEDS: Cyclobenzaprine HCl 10 MG TABLET PO ×2 (09:01→20:20)
[2024-08-30] MEDS: traZODone HCL 25 MG HALFTAB 12.5 MG PO ×2 (09:02→14:38)
[2024-08-30] MEDS: LORazepam 1 MG TABLET PO ×3 (09:02→20:16)
[2024-08-30] MEDS: polyethylene glycoL 3350 17 GM POWD.PACK PO (09:03)
[2024-08-30] MEDS: Fluticasone/Umeclidinium/Vilanterol 100/62.5/25 BLST.W.DEV 1 PUFF INHALE (09:22)
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
[2024-08-30 20:00] VITALS: BP 119/63; PULSE 77; TEMP 36.7; O2SAT 95
[2024-08-30] MEDS: Prazosin HCL 1 MG CAPSULE 2 MG PO (20:19)
[2024-08-30] MEDS: QUEtiapine Fumarate 400 MG TABLET PO (20:19)
[2024-08-30] MEDS: Melatonin 3 MG TABLET PO (20:19)
[2024-08-30] MEDS: traZODone HCL 25 MG HALFTAB PO (20:19)
[2024-08-30] MEDS: Atorvastatin Calcium 80 MG TABLET PO (20:19)
[2024-08-31] MEDS: Omeprazole 20 MG CAPSULE.DR PO (05:56)
[2024-08-31 08:44] VITALS: BP 120/81; PULSE 70; RESP 18; TEMP 36.4; O2SAT 96
[2024-08-31] MEDS: Fluticasone/Umeclidinium/Vilanterol 100/62.5/25 BLST.W.DEV 1 PUFF INHALE (09:05)
[2024-08-31] MEDS: metFORMIN HCl 500 MG TABLET PO (09:07)
[2024-08-31] MEDS: traZODone HCL 25 MG HALFTAB 12.5 MG PO ×2 (09:07→14:05)
[2024-08-31] MEDS: Cholecalciferol (Vitamin D3) 25 MCG TABLET PO (09:08)
[2024-08-31] MEDS: Cyclobenzaprine HCl 10 MG TABLET PO ×2 (09:08→20:06)
[2024-08-31] MEDS: Aspirin 81 MG TAB.CHEW PO (09:08)
[2024-08-31] MEDS: Gabapentin 400 MG CAPSULE 800 MG PO ×3 (09:08→20:07)
[2024-08-31] MEDS: OXcarbazepine 300 MG TABLET 600 MG PO ×2 (09:08→20:08)
[2024-08-31] MEDS: Apixaban 5 MG TABLET PO ×2 (09:08→20:08)
[2024-08-31] MEDS: LORazepam 1 MG TABLET PO ×3 (09:08→20:09)
[2024-08-31] MEDS: FLUoxetine HCl 20 MG CAPSULE PO (09:08)
[2024-08-31] MEDS: Metoprolol Succinate ER 25 MG TAB.ER.24H PO (09:08)
[2024-08-31] MEDS: Acetaminophen 325 MG TABLET 650 MG PO ×3 (09:08→20:09)
[2024-08-31] MEDS: Bumetanide 1 MG TABLET PO (09:09)
[2024-08-31] MEDS: Potassium Chloride ER 10 MEQ TABLET.ER PO ×2 (09:09→20:05)
[2024-08-31] MEDS: Nicotine 14 MG PATCH.TD24 TRANSDERMA (09:12)
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
[2024-08-31 20:00] VITALS: BP 141/62; PULSE 72; RESP 16; TEMP 36.4; O2SAT 93
[2024-08-31] MEDS: Atorvastatin Calcium 80 MG TABLET PO (20:04)
[2024-08-31] MEDS: Prazosin HCL 1 MG CAPSULE 2 MG PO (20:05)
[2024-08-31] MEDS: Melatonin 3 MG TABLET PO (20:05)
[2024-08-31] MEDS: traZODone HCL 25 MG HALFTAB PO (20:09)
[2024-08-31] MEDS: QUEtiapine Fumarate 400 MG TABLET PO (20:10)
[2024-09-01] MEDS: Omeprazole 20 MG CAPSULE.DR PO (05:55)
[2024-09-01 08:33] VITALS: BP 130/63; PULSE 80; RESP 15; TEMP 36.9; O2SAT 94
[2024-09-01] MEDS: Fluticasone/Umeclidinium/Vilanterol 100/62.5/25 BLST.W.DEV 1 PUFF INHALE (08:34)
[2024-09-01] MEDS: Nicotine 14 MG PATCH.TD24 TRANSDERMA (08:34)
[2024-09-01] MEDS: Aspirin 81 MG TAB.CHEW PO (08:35)
[2024-09-01] MEDS: Potassium Chloride ER 10 MEQ TABLET.ER PO (08:35)
[2024-09-01] MEDS: Acetaminophen 325 MG TABLET 650 MG PO (08:35)
[2024-09-01] MEDS: Bumetanide 1 MG TABLET PO (08:35)
[2024-09-01] MEDS: Cholecalciferol (Vitamin D3) 25 MCG TABLET PO (08:36)
[2024-09-01] MEDS: LORazepam 1 MG TABLET PO (08:36)
[2024-09-01] MEDS: traZODone HCL 25 MG HALFTAB 12.5 MG PO (08:36)
[2024-09-01] MEDS: Gabapentin 400 MG CAPSULE 800 MG PO (08:36)
[2024-09-01] MEDS: FLUoxetine HCl 20 MG CAPSULE PO (08:36)
[2024-09-01] MEDS: OXcarbazepine 300 MG TABLET 600 MG PO (08:36)
[2024-09-01] MEDS: Apixaban 5 MG TABLET PO (08:36)
[2024-09-01] MEDS: Cyclobenzaprine HCl 10 MG TABLET PO (08:38)
[2024-09-01] MEDS: Metoprolol Succinate ER 25 MG TAB.ER.24H PO (08:38)
[2024-09-01] MEDS: polyethylene glycoL 3350 17 GM POWD.PACK PO (08:38)
[2024-09-01] MEDS: metFORMIN HCl 500 MG TABLET PO (08:40)
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
== END 2024-09-01 11:00 | DRG 885 ==
LOC: HO.ED 15:26 → HO.PGERI 16:54
PROVIDERS: Psychiatry & Neurology Psychiatry; Registered Nurse; Admitting Provider Social Worker; Emergency Provider Emergency Medicine; PCP Nurse Practitioner Family; Visit Provider Social Worker
DX: F31.9 Bipolar disorder, unspecified (principal); F17.210 Nicotine dependence, cigarettes, uncomplicated; J44.9 Chronic obstructive pulmonary disease, unspecified; M79.7 Fibromyalgia; Z71.6 Tobacco abuse counseling; Z20.822 Contact with and (suspected) exposure to COVID-19; Z79.01 Long term (current) use of anticoagulants; Z99.81 Dependence on supplemental oxygen; Z79.82 Long term (current) use of aspirin; Z79.84 Long term (current) use of oral hypoglycemic drugs; Z79.899 Other long term (current) drug therapy
CPT/HCPCS: 0241U; 36415; 80053; 80061; 81001; 82565; 82607; 82746; 83036; 84443; 99285

== ENCOUNTER → 2024-08-19 16:28 | Outpatient (BNV) | payer OTHER, SELFPAY | PROVIDERS: Admitting Provider Social Worker; Emergency Provider Emergency Medicine; PCP Nurse Practitioner Family; Visit Provider Psychiatry & Neurology Psychiatry | DX: F31.9 Bipolar disorder, unspecified (principal) | CPT/HCPCS: 99222 ==

== ENCOUNTER 2024-09-26 14:00 | Inpatient (IN) | payer OTHER, SELFPAY ==
--- NOTE | ~2024-09-26 | XR_ITS ---
EXAMINATION: XR CHEST CLINICAL INFORMATION: sob COMPARISON: February 10, 2009 is not available on PACS. TECHNIQUE: Frontal view of the chest was obtained. FINDINGS: Blunting of the costophrenic angles bilaterally. Elevated right hemidiaphragm /lung volume loss, right lung. No pneumothorax. Cardiomediastinal silhouette margins are indistinct in the inferior margin. Heart silhouette is not enlarged. Mild multilevel thoracic spondylosis noted fully evaluated due to the patient's body habitus. XR/XR chest 1V IMPRESSION: Bilateral pleural effusions, right greater than left. Electronically signed by: Jacob Suarez MD 10/02/2024 07:14 AM EDT
[2024-09-26 14:08] VITALS: BP 126/78; BP 129/77; PULSE 70; PULSE 84; RESP 14; TEMP 36.8; O2SAT 93; O2SAT 98; BMI 40.4
--- NOTE | 2024-09-26 14:16 | ECG_ITS ---
Test Reason : check qt Blood Pressure : */* mmHG Vent. Rate : 68 BPM Atrial Rate : 68 BPM P-R Int : 176 ms QRS Dur : 92 ms QT Int : 420 ms P-R-T Axes : 58 71 62 degrees QTcB Int : 446 ms Normal sinus rhythm Normal ECG When compared with ECG of 10-Feb-2009 15:22, T wave inversion no longer evident in Inferior leads Referred By: Ama Eastman Electronically Signed By: TYLER العراقي
--- NOTE | 2024-09-26 14:16 | ED_ITS ---
HPI - General Adult General Chief complaint: Psychiatric Symptoms Stated complaint: DEPRESSION,SI,COOPERATIVE PER EMS Time Seen by Provider: 09/26/24 14:08 Source: patient and EMS Mode of arrival: EMS Limitations: no limitations History of Present Illness ED Provider: Ama Eastman PA-C HPI narrative: Patient is a 64 year old assigned female at with a history of bipolar disorder and COPD on oxygen, presenting to the emergency department today with depression and suicidal ideation with a plan. Patient states that she was recently here for depression and discharged to [facility] but she is having even worsening depression and is feeling suicidal now. Patient states that she is having intermittent burning with urination. Patient denies any dizziness, lightheadedness, abdominal pain, nausea, vomiting, fever, chills, blurry vision, double vision, loss of vision, chest pain, difficulty breathing, shortness of breath, back pain, night sweats, increased urinary frequency, increased urinary urgency, blood in her urine or stool, syncope or a near syncopal episode, recent trauma or falls, bowel incontinence, bladder incontinence, or any other complaints at this time. Relieving factors: none Exacerbating factors: none Associated symptoms: denies other symptoms Related Data Home Medications ?Medication ?Instructions ?Recorded ?Confirmed lorazepam 1 mg tablet 1 mg PO TID 08/19/24 09/26/24 atorvastatin 80 mg tablet 40 mg PO BEDTIME 09/26/24 09/26/24 bumetanide 1 mg tablet 2 mg PO DAILY 09/26/24 09/26/24 cefpodoxime 100 mg tablet 100 mg PO BID 09/26/24 09/26/24 cholecalciferol (vitamin D3) 25 50 mcg PO DAILY 09/26/24 09/26/24 mcg (1,000 unit) tablet estradiol 0.01% (0.1 mg/gram) 1 g vaginal 2XW 09/26/24 09/26/24 vaginal cream ferrous sulfate 325 mg (65 mg 325 mg PO DAILY 09/26/24 09/26/24 iron) tablet,delayed release methenamine hippurate 1,000 mg PO DAILY 09/26/24 09/26/24 oxcarbazepine 300 mg tablet 600 mg PO BID 09/26/24 09/26/24 potassium chloride 10 mEq 10 meq PO 1XD 09/26/24 09/26/24 tablet,extended release(part/cryst) trazodone 50 mg tablet 25 mg PO TIDWMEAL 09/26/24 09/26/24 Previous Rx's ?Medication ?Instructions ?Recorded acetaminophen 325 mg tablet 650 mg (2 x 325 mg) PO Q6H PRN 09/01/24 Headache/Pain, Scale 1-10 #0 tabs acetaminophen 325 mg tablet 650 mg (2 x 325 mg) PO TID #0 tabs 09/01/24 albuterol sulfate 90 mcg/actuation 2 puff inhalation Q4H PRN 09/01/24 aerosol inhaler (Ventolin HFA) Shortness Of Breath/Wheezing #0 grams apixaban 5 mg tablet (Eliquis) 5 mg PO BID #0 tabs 09/01/24 aspirin 81 mg chewable tablet 81 mg PO DAILY #0 tabs 09/01/24 cyclobenzaprine 10 mg tablet 10 mg PO BID #0 tabs 09/01/24 fluoxetine 20 mg capsule 20 mg PO DAILY #0 caps 09/01/24 fluticasone fur. 100 mcg-umeclid 1 inh inhalation RDAILY #0 ea 09/01/24 62.5 mcg-vilant 25 mcg inhalat.powder (Trelegy Ellipta) gabapentin 400 mg capsule 800 mg (2 x 400 mg) PO TID #0 caps 09/01/24 melatonin 3 mg tablet 3 mg PO BEDTIME #0 tabs 09/01/24 metformin 500 mg tablet 500 mg PO DAILY #0 tabs 09/01/24 metoprolol succinate 25 mg 25 mg PO DAILY #0 tabs 09/01/24 tablet,extended release 24 hr nicotine 14 mg/24 hr daily 14 mg transdermal DAILY #0 ea 09/01/24 transdermal patch prazosin 1 mg capsule 2 mg PO BEDTIME #0 caps 09/01/24 quetiapine 400 mg tablet 400 mg PO BEDTIME #0 tabs 09/01/24 Allergies Allergy/AdvReac Type Severity Reaction Status Date / Time sertraline [From Zoloft] Allergy Intermediate Nausea and Verified 09/26/24 14:12 Vomiting Penicillins Allergy Mild RASH Verified 09/26/24 14:12 ciprofloxacin AdvReac Intermediate Nausea and Verified 09/26/24 14:12 Vomiting Review of Systems 2 Constitutional: Constitutional: Reports no additional constitutional complaints, Denies chills, Denies fever(s) and Denies night sweats Eyes: Eyes: Reports no additional eye complaints, Denies blurry vision, Denies change in vision, Denies diplopia, Denies eye discharge, Denies loss of vision and Denies eye pain ENT: Denies dizziness Cardiovascular: Cardiovascular: Reports no additional cardiovascular complaints, Denies chest pain, Denies lightheadedness, Denies Loss of Consciousness and Denies dyspnea Respiratory: Respiratory: Reports no additional respiratory complaints and Denies dyspnea Gastrointestinal: Gastrointestinal: Reports no additional gastrointestinal complaints, Denies abdominal pain, Denies melena, Denies hematochezia, Denies change in bowel habits and Denies change in stool character Genitourinary: Genitourinary: Denies hematuria, Denies urinary frequency, Reports dysuria (intermittent), Denies urinary incontinence, Denies urinary hesitancy and Denies urinary urgency Musculoskeletal: Musculoskeletal: Reports no additional musculoskeletal complaints, Denies numbness and Denies tingling Neurologic: Denies dizziness, Denies loss of vision, Denies numbness and Denies tingling Psychiatric: Psychiatric: Reports depression, Denies homicidal ideation and Reports suicidal ideation Endocrine: Endocrine: Reports no additional endocrine complaints Hematologic/Lymphatic: Hematologic/Lymphatic: Reports no additional hematologic/lymphatic complaints Allergic/Immunologic: Allergic/Immunologic: Reports no additional allergic/immunologic complaints PMFSH Past Medical History Attestation statement: The following information was validated with the patient. Source: old records reviewed and nursing notes reviewed Social History Social History Household Members: None Housing: Apartment Do you presently have visiting nurse or other home services: Yes Patient Tobacco Use Status: Current everyday Tobacco user Tobacco use type: Cigarette Cigarette Packs Per Day: 0.5 Cigarettes Per Day: 10.0 Years Smoked: 45 Smoked in Last 30 Days: Yes e-Cigarette/Vaping Use: Never Used Patient Interested in Nicotine Replacement: Yes Patient Given Instructions on How to Stop Smoking: Yes Date Education Initiated: 09/27/24 Second Hand Smoke Exposure: Yes Use of substances other than those prescribed or required for medical reasons: No Substance Use Type: Prescription Drugs Currently Displaying Signs/Symptoms of Drug Intoxication Withdrawal: No Any prior treatment program specific to substance use: No Have you been hit, kicked, punched, or otherwise hurt by someone within the past year? If so, by whom?: No Do you feel safe in your current relationship?: No Current Relationship Is there a partner from a previous relationship who is making you feel unsafe now?: No Are you made to feel afraid or neglected: No Spiritual Healthcare Practices: none reported [facility] Practices: none reported Cultural Healthcare Practices: none reported Advance Directives: Yes Advance Directives Information Provided: Yes Advance Directives on File: Yes Advance Directives Date on File: 09/02/24 Do you have thoughts of harming others: None Do you have a plan to hurt others: No Plan Recently lost weight without trying: No How much weight loss: Not applicable Eating poorly because of decreased appetite: No Nutrition screen score: 0 Nutrition Risks: No Nutritional Risk Patient : No : No Poor oral hygiene: Yes service: No Sexual orientation: Straight/Heterosexual Physical Exam ED Vital Signs: Vital Signs - 24 hr 09/26/24 16:58 09/26/24 20:29 Temperature 97.4 F 97.6 F Pulse Rate 70 70 Respiratory Rate 16 18 Blood Pressure 127/86 124/74 Pulse Oximetry 95 93 Oxygen Delivery Method Nasal Cannula Room Air Oxygen Flow Rate 3 BMI result Body Mass Index 40.4 Const General: cooperative, no acute distress, alert and awake Nutritional Appearance: well nourished Orientation/consciousness: patient oriented x3 Limitations: no limitations HENMT Head: Yes normal to inspection and Yes atraumatic Ears: hearing grossly normal bilaterally and external ears normal General nose exam: Normal external nose present, no nasal discharge noted and no epistaxis Face and sinus: Yes normal facial exam, No abrasion and No laceration Mouth: Normal oral and palatal mucosa present, no drooling and no muffled voice Eyes General: appearance normal, both eyes and all related structures Periorbital: periorbital findings normal Eyelids: Yes eyelids normal Conjunctivae: conjunctivae normal Pupils: Equal, round and reactive pupils present EOM: EOMs intact bilaterally Neck Neck: Yes normal visual inspection, Yes full ROM and Yes no lymphadenopathy Chest Chest palpation & inspection: normal inspection of the chest Resp Effort & Inspection: normal respiratory effort and able to speak in complete sentences GI Inspection: Yes normal to inspection Neuro General: patient oriented x3, moves all extremities and CN's II-XI intact bilaterally Cranial nerves: Yes Equal, round and reactive pupils present Cognition (Neuro): normal cognition Extrem General: Yes normal to inspection, Yes full ROM and Yes capillary refill normal Psych Appearance: grossly normal Mental Status: mental status grossly normal Affect: Sad affect present Attitude: Guarded attititude/behavior present Thought content: Suicidality present Medications Administered Generic Name Dose Route Start Last Admin Trade Name Freq PRN Reason Stop Dose Admin Acetaminophen 650 mg 09/26/24 15:10 09/27/24 09:58 Acetaminophen 325 Mg Tablet PO 650 mg Q6H PRN Administration Headache/Pain, Scale 1-10 Apixaban 5 mg 09/26/24 21:00 09/27/24 09:33 Apixaban 5 Mg Tablet PO 5 mg BID AMIRAH Administration Aspirin 81 mg 09/27/24 09:00 09/27/24 09:29 Aspirin 81 Mg Tab.Chew PO 81 mg DAILY MAIRAH Administration Atorvastatin Calcium 40 mg 09/26/24 21:00 09/26/24 23:46 Atorvastatin Calcium 40 Mg Tablet PO 40 mg BEDTIME AMIRAH Administration Bumetanide 2 mg 09/27/24 09:00 09/27/24 09:32 Bumetanide 1 Mg Tablet PO 2 mg DAILY AMIRAH Administration Protocol Cefuroxime Axetil 250 mg 09/26/24 21:00 09/27/24 09:29 Cefuroxime Axetil 250 Mg Tablet PO 250 mg BID AMIRAH Administration Cyclobenzaprine HCl 10 mg 09/26/24 21:00 09/27/24 09:30 Cyclobenzaprine Hcl 10 Mg Tablet PO 10 mg BID AMIRAH Administration Ferrous Sulfate 324 mg 09/27/24 09:00 09/27/24 09:33 Ferrous Sulfate 324 Mg Tablet.Dr PO 324 mg DAILY AMIRAH Administration Fluoxetine HCl 20 mg 09/27/24 09:00 09/27/24 09:31 Fluoxetine Hcl 20 Mg Capsule PO 20 mg DAILY AMIRAH Administration Fluticasone/Umeclidinium/Vilanterol 1 puff 09/27/24 08:00 09/27/24 09:33 Fluticasone/Umeclidinium/Vilanterol 100/62.5/25 Blst.W.Dev INHALE 1 puff RDAILY AMIRAH Administration Gabapentin 800 mg 09/26/24 21:00 09/27/24 09:29 Gabapentin 400 Mg Capsule PO 800 mg TID AMIRAH Administration Hydroxyzine HCl 25 mg 09/26/24 21:24 09/27/24 10:30 Hydroxyzine Hcl 25 Mg Tablet PO 25 mg Q6H PRN Administration mild anxiety Lorazepam 1 mg 09/26/24 21:00 09/27/24 09:29 Lorazepam 1 Mg Tablet PO 1 mg TID AMIRAH Administration Melatonin 3 mg 09/26/24 21:00 09/26/24 23:42 Melatonin 3 Mg Tablet PO 3 mg BEDTIME AMIRAH Administration Metformin HCl 500 mg 09/27/24 09:00 09/27/24 09:32 Metformin Hcl 500 Mg Tablet PO 500 mg DAILY AMIRAH Administration Methenamine Hippurate 1 gm 09/27/24 09:00 09/27/24 09:32 Methenamine Hippurate 1 Gm Tablet PO 1 gm DAILY AMIRAH Administration Metoprolol Succinate 25 mg 09/27/24 09:00 09/27/24 09:29 Metoprolol Succinate Er 25 Mg Tab.Er.24h PO 25 mg DAILY AMIRAH Administration Protocol Oxcarbazepine 600 mg 09/26/24 21:00 09/27/24 09:28 Oxcarbazepine 300 Mg Tablet PO 600 mg BID AMIRAH Administration Potassium Chloride 10 meq 09/27/24 09:00 09/27/24 09:33 Potassium Chloride Er 10 Meq Tablet.Er PO 10 meq DAILY AMIRAH Administration Prazosin HCl 2 mg 09/26/24 21:00 09/26/24 23:44 Prazosin Hcl 1 Mg Capsule PO 2 mg BEDTIME AMIRAH Administration Protocol Quetiapine Fumarate 400 mg 09/26/24 21:00 09/26/24 23:42 Quetiapine Fumarate 400 Mg Tablet PO 400 mg BEDTIME AMIRAH Administration Trazodone HCl 25 mg 09/26/24 17:00 09/27/24 12:13 Trazodone Hcl 25 Mg Halftab PO 25 mg TIDWM AMIRAH Administration Vitamin D 50 mcg 09/27/24 09:00 09/27/24 09:31 Cholecalciferol (Vitamin D3) 25 Mcg Tablet PO 50 mcg DAILY AMIRAH Administration Discontinued Medications Generic Name Dose Route Start Last Admin Trade Name Freq PRN Reason Stop Dose Admin Influenza Virus Vaccine 0.5 ml 09/27/24 01:03 09/27/24 10:23 Flu Vacc [id number](6mos Up)/Pf 0.5 Ml Syringe IM 09/27/24 01:04 0.5 ml .ONCE ONE Administration Medical Decision Making Medical Decision Making MDM Narrative: Patient is a 64 year old assigned female at with a history of bipolar disorder and COPD on oxygen, presenting to the emergency department today with depression and suicidal ideation with a plan. Patient's physical exam was as noted in the physical exam portion of this note. Patient's blood work was unremarkable. Patient's urine showed no acute process. Patient's EKG was unremarkable. I explained my physical exam findings as well as all test results to the patient. I answered all questions asked by the patient. Patient is awaiting CARE team evaluation. Patient placed in observation pending CARE team evaluation and ultimate disposition decision. Patient was evaluated by the CARE team who recommended psychiatry consult for geriatric psychiatric admission. 09/26/20242114 ---> Psychiatry agreed to admission. Observation ended at 2114 with patient's final disposition of admission to psychiatric inpatient level of care. Differential Diagnosis Differential Diagnoses: The differential diagnosis associated with the presentation includes SI Depression Admission/Observation Consideration of admission/observation: Escalation of care including admission/observation considered Patient admitted to the psychiatric team. Consult Healthcare Provider Management of the patient was discussed with: Behavioral Health Provider (spoke to the CARE team as noted in the MDM Rationale portion of this note. ) Lab Data [facility] Lab Attestation statement: I reviewed the patient's lab results. My interpretation of these results are in the MDM Rationale portion of this note. 09/26/24 14:45 09/26/24 22:14 Labs: Lab Results 09/26/24 09/26/24 09/26/24 Range/Units 14:28 14:36 14:45 WBC 8.4 (4.8-10.8) X10*3/uL RBC 4.42 (4.20-5.50) X10*6/uL Hgb 14.4 (12.0-16.0) g/dl Hct 43.2 (37.0-47.0) % MCV 97.7 (80.0-98.0) fL MCH 32.6 (27.0-33.0) pg MCHC 33.3 (31.0-35.0) g/dl RDW 13.4 (11.0-16.0) % Plt Count 388 (160-400) X10*3/uL MPV 9.2 L (9.4-12.3) fL Immature Gran % (Auto) 0.2 (0.0-0.4) % Neut % (Auto) 63.7 (45-73) % Lymph % (Auto) 25.5 (20-40) % [place] % (Auto) 8.1 (2-11) % Eos % (Auto) 1.7 (0-4) % Baso % (Auto) 0.8 (0-2) % Lymph # (Auto) 2.1 (1.2-4.9) X10*3/uL [place] # (Auto) 0.7 (0.1-1.2) X10*3/uL Eos # (Auto) 0.1 (0.0-0.4) X10*3/uL Baso # (Auto) 0.1 (0.0-0.2) X10*3/uL Abs Immat Gran (auto) 0.02 (0.00-0.03) X10*3/uL Absolute Neuts (auto) 5.3 (2.0-8.3) x10*3/uL Absolute Nucleated RBC 0.000 (0.0-0.012) X10*3/uL Nucleated RBC % (auto) 0.0 (0.0-0.2) /100WBC Sodium 140 (135-145) mmol/L Potassium 4.1 (3.3-5.1) mmol/L Chloride 104 (96-108) mmol/L Carbon Dioxide 29 (22-29) mmol/L Anion Gap 11 L (12-20) BUN 12 (9-16) mg/dL Creatinine 0.85 (0.5-1.4) mg/dL Estim Creat Clear Calc 90.7 Estimated GFR > 60 Random Glucose 95 (60-115) mg/dL Calcium 10.0 (8.4-10.2) mg/dL Total Bilirubin 0.3 (0.0-1.0) mg/dL AST 32 H (5-31) U/L ALT 18 (0-31) U/L Alkaline Phosphatase 111 (39-117) U/L Total Protein 7.8 (6.5-8.0) g/dL Albumin 4.4 (3.5-5.0) g/dL Urine Color Yellow Urine Appearance Clear Urine pH 5.5 (5.0-9.0) Ur Specific [place] 1.010 (1.005-1.025) Urine Protein Negative (Neg-Trace) mg/dL Urine Glucose (UA) Negative (Negative) mg/dL Urine Ketones Negative (Negative) mg/dL Urine Blood Small (1+) H (Negative) Urine Nitrite Negative (Negative) Ur Leukocyte Esterase Negative (Negative) Urine RBC 0-2 (0-2) /HPF Urine WBC 0-5 (0-5) /HPF Ur Squamous Epith Cells 0-2 (0-2) /HPF Urine Bacteria None Seen (None Seen) Hyaline Casts 0-2 (0-2) /LPF Salicylates < 5.0 L (15-30) mg/dL Urine Opiates Screen Not Detected (Not Detect) Ur Buprenorphine Scrn Not Detected (Not Detect) ng/mL Ur Oxycodone Screen Not Detected (Not Detect) ng/mL Urine Methadone Screen Not Detected (Not Detect) ng/mL Urine Fentanyl Screen Not Detected (Not Detect) Acetaminophen < 3 (<30) mcg/mL Ur Barbiturates Screen Not Detected (Not Detect) Ur Phencyclidine Scrn Not Detected (Not Detect) Ur Amphetamines Screen Not Detected (Not Detect) U Benzodiazepines Scrn Not Detected (Not Detect) Urine Cocaine Screen Not Detected (Not Detect) U Marijuana (THC) Screen Not Detected (Not Detect) Ethyl Alcohol < 10 mg/dL COVID-19 (CHRISTINE) Negative (Negative) COVID-19 Clin Com See Note Independent Interpretation I performed an independent interpretation of an: EKG Interpretation: I independently interpreted this EKG and am in agreement with the below findings: Vent. Rate: 68 BPM Atrial Rate: 68 BPM P-R Int: 176 ms QRS Dur: 92 ms QT Int: 420 ms P-R-T Axes: 58 71 62 degrees QTcB Int: 446 ms Normal sinus rhythm When compared with ECG of 10-Feb-2009 15:22, T wave inversion no longer evident in Inferior leads DD/ [id number] Discharge Plan Discharge Clinical Impression: Depression Patient Disposition: Admitted As Inpatient Interventions: Admission Worksheet (ED) Last Done: 09/26/24 23:23 Discharge Date/Time: 09/26/24 23:32
[2024-09-26 14:44] LABS: Appearance Urine Clear; Color Urine Yellow; Glucose Urine UA Negative (Negative); Leukocyte Esterase Urine Negative (Negative); Nitrite Urine Negative (Negative); PH 5.5 (5.0-9.0); UMIC TRIGGER UA YES; Urine Blood Small (1+) (Negative); Urine Ketones Negative (Negative); Urine Protein Negative (Neg-Trace)
[2024-09-26 14:49] LABS: MANUAL DIFF FLAG NO
[2024-09-26 14:50] LABS: Basophils Absolute Auto 0.1 X10*3/uL (0.0-0.2); Basophils Percent Auto 0.8 % (0-2); Eosinophils Absolute Auto 0.1 X10*3/uL (0.0-0.4); Eosinophils Percent Auto 1.7 % (0-4); Hematocrit 43.2 % (37.0-47.0); Hemoglobin 14.4 g/dl (12.0-16.0); Imm Gran Abs Auto 0.02 X10*3/uL (0.00-0.03); Imm Gran Pct Auto 0.2 % (0.0-0.4); Lymphocytes Absolute Auto 2.1 X10*3/uL (1.2-4.9); Lymphocytes Percent Auto 25.5 % (20-40); Mean Corpuscular HGB Conc 33.3 g/dl (31.0-35.0); Mean Corpuscular Hemoglobin 32.6 pg (27.0-33.0); Mean Corpuscular Volume 97.7 fL (80.0-98.0); Mean Platelet Volume 9.2 fL (9.4-12.3); Monocytes Absolute Auto 0.7 X10*3/uL (0.1-1.2); Monocytes Percent Auto 8.1 % (2-11); Neutrophils Absolute Auto 5.3 x10*3/uL (2.0-8.3); Neutrophils Percent Auto 63.7 % (45-73); Platelet Count 388 X10*3/uL (160-400); Red Blood Count 4.42 X10*6/uL (4.20-5.50); Red Cell Distribution Width 13.4 % (11.0-16.0); White Blood Count 8.4 X10*3/uL (4.8-10.8)
[2024-09-26 14:51] LABS: Bacteria Urine None Seen (None Seen); Hyaline Casts Urine 0-2 /LPF (0-2); RBC Urine 0-2 /HPF (0-2); Squamous Epithelial Cell Urine 0-2 /HPF (0-2); WBC Urine 0-5 /HPF (0-5)
[2024-09-26 14:56] LABS: COVID-19 Test Negative (Negative); IDNOW Serial# 58CA691E
[2024-09-26 15:16] LABS: Acetaminophen LAB < 3 mcg/mL (<30); Alanine Aminotransferase 18 U/L (0-31); Albumin Level 4.4 g/dL (3.5-5.0); Alkaline Phosphatase 111 U/L (39-117); Anion Gap 11 (12-20); Aspartate Amino Transferase 32 U/L (5-31); Bilirubin Total 0.3 mg/dL (0.0-1.0); Blood Urea Nitrogen 12 mg/dL (9-16); Carbon Dioxide 29 mmol/L (22-29); Chloride 104 mmol/L (96-108); Creatinine Clr Calc Pharmacy 90.7; Estimated Glomerular Filt Rate > 60; Ethanol < 10 mg/dL; Glucose Random 95 mg/dL (60-115); Potassium 4.1 mmol/L (3.3-5.1); Salicylate < 5.0 mg/dL (15-30); Sodium 140 mmol/L (135-145); Total Protein 7.8 g/dL (6.5-8.0)
[2024-09-26 15:23] LABS: Amphetamine Screen Urine Not Detected (Not Detect); Barbiturates, Urine Not Detected (Not Detect); Benzodiazepines Screen Urine Not Detected (Not Detect); Buprenorphine Scr Not Detected (Not Detect); Cannabinoid Screen Urine Not Detected (Not Detect); Cocaine Screen Urine Not Detected (Not Detect); Fentanyl, urine Not Detected (Not Detect); Methadone Screen, Urine Not Detected (Not Detect); Opiate Screen Urine Not Detected (Not Detect); Oxycodone Screen Urine Not Detected (Not Detect); Phencyclidine Screen Urine Not Detected (Not Detect)
--- OUTSIDE RECORDS SUMMARY | 2024-09-26 16:35 | XMS_ITS | Clinical Summary ---
Author Organization [employer] [facility] Address [address] [place] [address] Care Team Providers Care Pesticide Chemist Name Role Phone Unavailable Primary Care Provider [...] and at bedtime for bladder spasms. Active Social History Tobacco Use Types Packs/Day Years [...] Vaccine: 50+ Years Completed 05/04/2023, 04/21/2017, 06/25/2007 HPV Vaccines Aged [...] Procedure Name Priority Date/Time Associated Diagnosis Comments PROPHYLAXIS - ADULT Routine 12/09/2021 1 2:00 AM EDT PERIODIC ORAL EVALUATION - ESTABLISHED PATIENT Routine 12/09/2021 12:00 AM EDT BITEWINGS - 2 RADIOGRAPHIC IMAGES Routine 06/08/2021 12:00 AM EST INTRAORAL - COMPLETE SERIES OF RADIOGRAPHIC IMAGES Routine 04/15/2012 12:00 AM EDT from Last 3 Months or Most Recently Relevant to Health Maintenance Insurance [facility] MEDICAID STAND ADULT
--- OUTSIDE RECORDS SUMMARY | 2024-09-26 16:36 | XMS_ITS | Encounter Summary ---
Author Organization [facility] Address [address] [place] [address] Care Team Providers Care Asphalt Dauber Name Role Phone Dede Pimentel ARBORIST Primary Care Provider [phone] Encounter Details Date Type Department Care Team (Late Contact Info) Description 07/23/[address] [facility] [address] [facility] [place] [address] Elvira Damon MD 299 [facility] [address] [place] [address] Hematuria, unspecified Social History Tobacco Use Types [...] Department Care Team (Late Contact Info) Description 09/29/2024 9:00 AM EDT PACE Attendance/Day [facility] Day [place] [address] [place] [address] 09/29/2024 11:00 AM EDT Appointment [facility] CT Scan [address] [place] [address] 09/30/2024 10:30 AM EDT PACE Home Care / PACE Home Visit [facility] [address] [place] [address] Cheryle Pryor 10/01/2024 9:00 AM EDT P[facility] Attendance/Day [place] [facility] [place] [facility] [address] [place] [address] 10/03/2024 10:30 AM EDT PACE Home Care / PACE Home Visit [facility] [place] [facility] [address] [place] [address] Jhoana Grijalva 10/06/2024 9:00 AM EDT [facility] [place] [facility] [address] [place] [address] 10/06/2024 11:00 AM EDT Appointment [facility] Ultrasound [address] [place] [address] 10/07/2024 10:30 AM EDT PACE Home Care / PACE Home Visit [facility]nn [facility] [place] [facility] [address] [place] [address] Cheryle Pryor 10/08/2024 9:00 AM EDT P[place] Attendance/[place] [facility] [place] [facility] [facility] [address] [place] [address] 10/10/2024 10:30 AM EDT PACE Home Care / PACE Home Visit [facility] [place] [facility] [address] [place] [phone] Jhoana Grijalva 10/13/2024 9:00 AM EDT P[place] Attendance/[place] [facility] [place] [facility] [address] [place] [address] 10/14/2024 10:30 AM EDT PACE Home Care / PACE Home Visit [facility] [place] [facility] [address] [place] [phone] Cheryle Pryor 10/15/2024 9:00 AM EDT [place] Att[facility] [place] [facility] [address] [place] [address] 10/17/2024 10:30 AM EDT PACE Home Care / PACE Home Visit [facility] [place] [facility] [address] [place] [phone] Jhoana Grijalva 10/20/2024 9:00 AM EDT [place] Att[place] [facility] [place] [facility] [address] [place] [address] 10/21/2024 10:30 AM EDT PACE Home Care / PACE Home Visit [facility] [place] [facility] [address] [place] [address] Cheryle Pryor 10/22/2024 9:00 AM EDT P[place] Attendance[place] [facility] [place] [address] [place] [address] 10/24/2024 10:30 AM EDT PACE Home Care / PACE Home Visit [facility] [place] [facility] [address] [place] [phone] Jhoana Grijalva 10/27/2024 9:00 AM EDT [place] [facility] [place] [facility] [address] [place] [phone] 10/28/2024 10:30 AM EDT PACE Home Care / [facility] [place] [facility] [address] [place] [phone] Cheryle Pryor 10/29/2024 9:00 AM EDT [place] Att[place] [facility] [place] [facility] [facility] [address] [place] [address] 10/31/2024 10:30 AM EDT PACE Home Care / PACE Home Visit [facility] [place] [facility] [address] [place] [address] Jhoana Grijalva 11/03/2024 9:00 AM EDT PACE Attendance[place] [facility] [place] [address] [place] [address] 11/04/2024 10:30 AM EDT PACE Home Care / PACE Home Visit [facility] [place] [facility] [address] [place] [phone] Cheryle Pryor 11/05/2024 9:00 AM EDT PACE Attendance/[place] [facility] [place] Day [address] [address] 11/07/2024 10:30 AM EDT PACE Home Care / PACE Home Visit [facility] [place] [facility] [address] [place] [phone] Jhoana Grijalva 11/10/2024 9:00 AM EDT PACE Attendance/[place] [facility] [place] Day [address] [address] 11/10/2024 9:45 AM EDT Office Visit [facility] [address] [address] Gemini Simmons MD [address] [facility] [address] [address] 11/11/2024 10:30 AM EDT PACE Home Care / PACE Home Visit [facility]nn [facility] [place] [facility] [address] [place] [phone] Cheryle Pryor 11/12/2024 9:00 AM EDT P[place] Attendance[place] [facility] [place] [address] [place] [address] 11/14/2024 10:30 AM EDT PACE Home Care / PACE Home Visit [facility] [place] [facility] [address] [place] [address] Jhoaan Grijalva 11/17/2024 9:00 AM EDT P[place] Attendance[place] [facility] [place] [address] [place] [address] 11/18/2024 10:30 AM EDT PACE Home Care / PACE Home Visit [facility] [place] [facility] [address] [place] [phone] Cheryle Pryor 11/19/2024 9:00 AM EDT [place] Attendance[place] [facility] [place] [address] [place] [address] 11/21/2024 10:30 AM EDT PACE Home Care / PACE Home Visit [facility] [place] [facility] [address] [place] [phone] Jhoana Grijalva 11/24/2024 9:00 AM EDT P[place] Attendance[place] [facility] [place] [address] [place] [address] 11/26/2024 9:00 AM EDT P[place] Attendance[place] [facility] [place] [address] [place] [address] 12/01/2024 9:00 AM EDT [place] [facility] [place] [facility] [facility] [address] [place] [phone] 12/03/2024 9:00 AM EDT [place] [facility] [place] [facility] [address] [place] [address] 12/08/2024 9:00 AM EDT [place] [facility] [place] [facility] [address] [place] [address] 12/10/2024 9:00 AM EDT [facility] Att[place] [facility] [place] [facility] [facility] [address] [place] [address] 12/15/2024 9:00 AM EDT [facility] Att[facility] [facility] [place] [facility] [facility] [address] [place] [address] 12/17/2024 9:00 AM EDT P[place] Attendance/[place] [facility] [place] [address] [place] [address] 12/22/2024 9:00 AM EDT P[place] Attendance[facility] [facility] [place] [facility] [address] [place] [address] 12/24/2024 9:00 AM EDT P[place] Attendance[facility] [facility] [place] [facility] [address] [place] [address] 12/29/2024 9:00 AM EDT P[place] Attendance[facility] [facility] [place] [facility] [address] [place] [address] 12/31/2024 9:00 AM EDT [facility] Att[facility] [facility] [place] [facility] [facility] [address] [place] [address] 01/05/2025 9:00 AM EDT [place] [facility] [place] [facility] [address] [place] [address] 01/07/2025 9:00 AM EDT [place] Att[place] [facility] [place] [facility] [facility] [address] [place] [address] 01/12/2025 9:00 AM EDT [facility] Att[facility] [facility] [place] [facility] [facility] [address] [place] [address] 01/14/2025 9:00 AM EDT [facility] Att[facility] [facility] [place] [facility] [address] [place] [address] 01/19/2025 9:00 AM EDT [facility] Att[facility] [facility] [place] [facility] [facility] [address] [place] [address] 01/21/2025 9:00 AM EDT [facility] Att[facility] [facility] [place] [facility] [facility] [address] [place] [address] 01/26/2025 9:00 AM EDT [place] Att[place] [facility] [place] [facility] [facility] [address] [place] [address] 01/28/2025 9:00 AM EDT [place] [facility] [facility] [place] [facility] [facility] [address] [place] [address] 02/02/2025 9:00 AM EDT [facility] [facility] [place] [facility] [facility] [address] [place] [address] 02/04/2025 9:00 AM EDT [place] [facility] [place] [facility] [facility] [address] [place] [address] 02/09/2025 9:00 AM EDT [place] [facility] [facility] [place] [facility] [address] [place] [address] 02/11/2025 9:00 AM EDT [place] [facility] [facility] [place] [facility] [facility] [address] [place] [address] 02/16/2025 9:00 AM EDT [place] [facility] [facility] [place] [facility] [facility] [address] [place] [address] 02/18/2025 9:00 AM EDT [place] Att[place] [facility] [place] [facility] [address] [place] [address] 02/23/2025 9:00 AM EDT [place] Att[place] [facility] [place] [facility] [address] [place] [address] 02/25/2025 9:00 AM EDT [facility] Att[facility] [place] [facility] [address] [place] [address] 03/02/2025 9:00 AM EDT [facility] Att[facility] [facility] [place] [facility] [facility] [address] [place] [address] 03/04/2025 9:00 AM EDT P[place] Attendance[facility] [facility] [place] [facility] [facility] [address] [place] [address] 03/09/2025 9:00 AM EDT P[place] Attendance[facility] [facility] [place] [facility] [address] [place] [address] 03/11/2025 9:00 AM EDT P[place] Attendance[facility] [facility] [place] [facility] [address] [place] [address] 03/16/2025 9:00 AM EDT P[place] Attendance[facility] [facility] [place] [facility] [address] [place] [address] 03/18/2025 9:00 AM EDT P[place] Attendance[facility] [facility] [place] [facility] [facility] [address] [place] [address] 03/23/2025 9:00 AM EDT P[place] Attendance[facility] [facility] [place] [facility] [address] [place] [address] 03/25/2025 9:00 AM EDT P[facility] Att[facility] [place] [facility] [address] [place] [address] 03/30/2025 9:00 AM EDT [facility] Att[facility] [facility] [place] [facility] [address] [place] [address] 04/01/2025 9:00 AM EDT [facility] Att[facility] [facility] [place] [facility] [facility] [address] [place] [address] 04/06/2025 9:00 AM EDT P[facility] Attendance[facility] [place] [facility] [address] [place] [address] 04/08/2025 9:00 AM EDT P[place] Attendance/[place] [facility] [place] [facility] [facility] [address] [place] [address] 04/13/2025 9:00 AM EDT P[place] Attendance[facility] [facility] [place] [facility] [facility] [address] [place] [address] 04/15/2025 9:00 AM EDT P[place] Attendance[facility] [facility] [place] [facility] [facility] [address] [place] [address] 04/20/2025 9:00 AM EDT P[place] Attendance[facility] [facility] [place] [facility] [address] [place] [address] 04/22/2025 9:00 AM EDT P[place] Attendance/[place] [facility] [place] [facility] [address] [place] [address] 04/27/2025 9:00 AM EST P[place] Attendance[facility] [facility] [place] [facility] [address] [place] [address] 04/29/2025 9:00 AM EST [place] Attendance[facility] [facility] [place] [facility] [address] [place] [address] 05/04/2025 9:00 AM EST P[place] Attendance[facility] [facility] [place] [address] [place] [address] 05/06/2025 9:00 AM EST [facility] [facility] [place] [facility] [address] [place] [address] 05/11/2025 9:00 AM EST [facility] [facility] [place] [facility] [address] [place] [address] 05/13/2025 9:00 AM EST [facility] Attendance[facility] [facility] [place] [facility] [address] [place] [address] 05/18/2025 9:00 AM EST [facility] Att[facility] [facility] [place] [facility] [address] [place] [address] 05/20/2025 9:00 AM EST [place] [facility] [place] [facility] [address] [place] [address] 05/25/2025 9:00 AM EST [place] Att[place] [facility] [place] [facility] [facility] [address] [place] [address] 05/27/2025 9:00 AM EST [place] [facility] [place] [facility] [facility] [address] [place] [address] 06/01/2025 9:00 AM EST [facility] [place] [facility] [address] [place] [address] 06/03/2025 9:00 AM EST [facility] [facility] [place] [facility] [address] [place] [address] 06/08/2025 9:00 AM EST [facility] [facility] [place] [facility] [address] [place] [address] 06/10/2025 9:00 AM EST [facility] [facility] [place] [facility] [address] [place] [address] 06/15/2025 9:00 AM EST [facility] [facility] [place] [facility] [address] [place] [address] 06/17/2025 9:00 AM EST [facility] [facility] [facility] [place] [facility] [address] [place] [address] 06/22/2025 9:00 AM EST [facility] Att[facility] [facility] [place] [facility] [address] [place] [address] 06/24/2025 9:00 AM EST [facility] Att[facility] [facility] [place] [facility] [address] [place] [address] 06/29/2025 9:00 AM EST [facility] Att[facility] [facility] [place] [facility] [address] [place] [address] 07/01/2025 9:00 AM EST [facility] Att[facility] [facility] [place] [facility] [address] [place] [address] 07/06/2025 9:00 AM EST [facility] [place] [facility] [address] [place] [address] 2025 9:00 AM EST P[facility] Att[facility] [place] [facility] [address] [place] [address] 07/13/2025 9:00 AM EST [facility] [place] [facility] [address] [place] [address] 07/15/2025 9:00 AM EST [facility] [place] [facility] [address] [place] [address] 07/20/2025 9:00 AM EST [facility] [place] [facility] [address] [place] [address] 07/22/2025 9:00 AM EST P[facility] Att[facility] [facility] [place] [facility] [address] [place] [address] 07/27/2025 9:00 AM EST P[facility] Att[place] [facility] [place] [facility] [facility] [address] [place] [address] 07/29/2025 9:00 AM EST PACE Attendance/[facility] [place] [facility] [place] [facility] [address] [place] [address] 08/03/2025 9:00 AM EST PACE Attendance/[facility] [place] [facility] [place] [facility] [address] [place] [address] documented as of this encounter Procedures Procedure [...] scant material received may not be fully mortician supplies sales representative of the endometrium. Clinical correlation is recommended. 07/24/2024 11:07 AM [facility] Clinical Information Hematuria (? PMB) 07/24/2024 11:07 AM [facility] Gross Description A. Endometrium, biopsy: Labeled with the patient's name and information. Received in formalin is an approximately 0.2 x 0.1 x 0.1 cm aggregate of soft to mucoid, white tissue fragments, which is wrapped in paper and submitted in toto in one cassette, multiple pieces, x2. Please note: Small tissue fragments may not survive processing. [email or web address] 07/24/2024 11:07 AM [facility] Disclaimer Unless otherwise specified, all tissue is 10% NB formalin fixed and paraffin embedded. 07/24/2024 11:07 AM [facility] Tissue Endometrial structure / Unknown 07/22/2024 07/23/2024 7:03 AM EST us Elvira Damon MD LAB PATHOLOGY ORDERABLES Final Result [facility] [address] [place] [address], documented in this encounter Visit Diagnoses Diagnosis Hematuria, unspecified documented in this encounter Care Teams Asphalt Dauber Relationship Specialty Start Date End Date Dede Pimentel NP [address] [address] PCP - General Family Medicine 05/02/24 documented as of this encounter
--- OUTSIDE RECORDS SUMMARY | 2024-09-26 16:36 | XMS_ITS | Encounter Summary ---
Author Organization [facility] Address [address] [place] [address] Care Team Providers Care Learning Program Manager Name Role Phone Dede Pimentel AUT[employer]TER Primary Care Provider [phone] Reason for Visit * Reason Comments Semi-Annual Assessment Encounter Details Date Type Department Care Team (Late st Contact Info) Description 09/26/2024 12:00 PM EDT PACE Assessment [facility] [address] [place] [phone] Dede Pimentel NP [address] [address] Social History Tobacco Use Types Packs/Day Years [...] on file documented as of this encounter Last Filed Vital Signs Vital Sign Reading Time Taken Comments Blood Pressure - - Pulse - - Temperature - - Respiratory Rate - - Oxygen Saturation - - Inhaled Oxygen Concentration - - Weight 108 kg (238 lb 9.6 oz) 09/26/2024 12:37 P M EDT Height - - Body Mass Index 39.71 09/03/2024 1:00 PM EDT documented in this encounter Plan of Treatment Upcoming Encounters Date Type Department Care Team (Late st Contact Info) Description 09/29/2024 9:00 AM EDT P[facility] Attendance[facility] [place] [facility] [address] [place] [address] 09/29/2024 11:00 AM EDT Appointment [facility] CT Scan [address] [place] [address] 09/30/2024 10:30 AM EDT PACE Home Care / PACE Home Visit [facility] [address] [place] [address] Cheryle Pryor 10/01/2024 9:00 AM EDT [facility] [place] [facility] [address] [place] [address] 10/03/2024 10:30 AM EDT PACE Home Care / PACE Home Visit [facility] [address] [place] [address] Jhoana Grijalva 10/06/2024 9:00 AM EDT [facility] [place] [facility] [address] [place] [address] 10/06/2024 11:00 AM EDT Appointment [facility] Ultrasound [address] [place] [address] 10/07/2024 10:30 AM EDT PACE Home Care / [facility] [address] [place] [address] Cheryle Pryor 10/08/2024 9:00 AM EDT PACE Attendance[facility] [facility] [place] [facility] [address] [place] [address] 10/10/2024 10:30 AM EDT PACE Home Care / PACE Home Visit [facility] [address] [place] [address] Jhoana Grijalva 10/13/2024 9:00 AM EDT P[facility] Attendance[facility] [facility] [place] [facility] [address] [place] [phone] 10/14/2024 10:30 AM EDT PACE Home Care / PACE Home Visit [facility] [address] [place] [address] Cheryle Pryor 10/15/2024 9:00 AM EDT P[facility] Attendance[facility] [facility] [place] [facility] [address] [place] [address] 10/17/2024 10:30 AM EDT PACE Home Care / PACE Home Visit [facility] [address] [place] [phone] Jhoana Grijalva 10/20/2024 9:00 AM EDT P[facility] Attendance[facility] [facility] [place] [facility] [address] [place] [phone] 10/21/2024 10:30 AM EDT PACE Home Care / PACE Home Visit [facility] [address] [place] [address] Cheryle Pryor 10/22/2024 9:00 AM EDT P[facility] Attendance[facility] [facility] [place] [facility] [address] [place] [phone] 10/24/2024 10:30 AM EDT PACE Home Care / PACE Home Visit [facility] [address] [place] [address] Jhoana Grijalva 10/27/2024 9:00 AM EDT [facility] [place] [facility] [address] [place] [phone] 10/28/2024 10:30 AM EDT PACE Home Care / PACE Home Visit [facility] [address] [place] [address] Cheryle Pryor 10/29/2024 9:00 AM EDT P[facility] Attendance[facility] [facility] [place] [facility] [address] [place] [address] 10/31/2024 10:30 AM EDT PACE Home Care / PACE Home Visit [facility] [address] [place] [address] Jhoana Grijalva 11/03/2024 9:00 AM EDT [facility] Attendance[facility] [facility] [place] [facility] [address] [place] [phone] 11/04/2024 10:30 AM EDT PACE Home Care / PACE Home Visit [facility] [address] [place] [address] Cheryle Pryor 11/05/2024 9:00 AM EDT P[facility] Attendance[facility] [facility] [place] [facility] [address] [place] [address] 11/07/2024 10:30 AM EDT PACE Home Care / PACE Home Visit [facility] [address] [place] [phone] Jhoana Grijalva 11/10/2024 9:00 AM EDT P[place] Attendance[facility] [facility] [place] [facility] [address] [place] [phone] 11/10/2024 9:45 AM EDT Office Visit [address] [address] Gemini Simmons MD [address] [facility] [address] [place] [address] 11/11/2024 10:30 AM EDT PACE Home Care / PACE Home Visit [facility] [address] [place] [phone] Cheryle Pryor 11/12/2024 9:00 AM EDT [facility] Attendance[facility] [facility] [place] [facility] [address] [place] [address] 11/14/2024 10:30 AM EDT PACE Home Care / PACE Home Visit [facility] [address] [place] [address] Jhoana Grijavla 11/17/2024 9:00 AM EDT P[facility] Attendance[facility] [facility] [place] [facility] [address] [place] [address] 11/18/2024 10:30 AM EDT PACE Home Care / PACE Home Visit [facility] [address] [place] [phone] Cheryle Pryor 11/19/2024 9:00 AM EDT P[facility] Attendance[facility] [facility] [place] [facility] [address] [place] [phone] 11/21/2024 10:30 AM EDT PACE Home Care / PACE Home Visit [facility] [address] [place] [phone] Jhoana Grijalva 11/24/2024 9:00 AM EDT [facility] [place] [facility] [address] [place] [address] 11/26/2024 9:00 AM EDT [facility] [place] [facility] [address] [place] [address] 12/01/2024 9:00 AM EDT [facility] [place] [facility] [address] [place] [address] 12/03/2024 9:00 AM EDT P[facility] Attendance[facility] [facility] [place] [facility] [address] [place] [address] 12/08/2024 9:00 AM EDT P[facility] Attendance[facility] [place] [facility] [address] [place] [address] 12/10/2024 9:00 AM EDT P[facility] Attendance[facility] [place] [facility] [address] [place] [address] 12/15/2024 9:00 AM EDT P[facility] Attendance[facility] [facility] [place] [facility] [address] [place] [address] 12/17/2024 9:00 AM EDT P[facility] Attendance[facility] [facility] [place] [facility] [address] [place] [phone] 12/22/2024 9:00 AM EDT P[facility] Attendance[facility] [facility] [place] [facility] [address] [place] [address] 12/24/2024 9:00 AM EDT P[facility] Attendance[facility] [facility] [place] [facility] [address] [place] [phone] 12/29/2024 9:00 AM EDT P[facility] Attendance[facility] [place] [facility] [address] [place] [address] 12/31/2024 9:00 AM EDT [facility] [place] [facility] [address] [place] [phone] 01/05/2025 9:00 AM EDT [facility] [place] [facility] [address] [place] [phone] 01/07/2025 9:00 AM EDT [facility] [place] [facility] [address] [place] [phone] 01/12/2025 9:00 AM EDT [facility] [place] [facility] [address] [place] [address] 01/14/2025 9:00 AM EDT [facility] [place] [facility] [address] [place] [address] 01/19/2025 9:00 AM EDT [facility] [place] [facility] [address] [place] [address] 01/21/2025 9:00 AM EDT P[facility] Attendance[facility] [place] [facility] [address] [place] [phone] 01/26/2025 9:00 AM EDT P[facility] Attendance[facility] [place] [facility] [address] [place] [phone] 01/28/2025 9:00 AM EDT P[facility] Attendance[facility] [place] [facility] [address] [place] [address] 02/02/2025 9:00 AM EDT [facility] [place] [facility] [address] [place] [phone] 02/04/2025 9:00 AM EDT [facility] [place] [facility] [address] [place] [address] 02/09/2025 9:00 AM EDT [facility] [place] [facility] [address] [place] [address] 02/11/2025 9:00 AM EDT [facility] [place] [facility] [address] [place] [address] 02/16/2025 9:00 AM EDT [facility] [place] [facility] [address] [place] [address] 02/18/2025 9:00 AM EDT P[facility] Attendance[facility] [place] [facility] [address] [place] [address] 02/23/2025 9:00 AM EDT P[facility] Attendance[facility] [place] [facility] [address] [place] [address] 02/25/2025 9:00 AM EDT P[facility] Attendance[facility] [place] [facility] [address] [place] [address] 03/02/2025 9:00 AM EDT P[facility] Attendance[facility] [place] [facility] [address] [place] [phone] 03/04/2025 9:00 AM EDT P[facility] Attendance[facility] [place] [facility] [address] [place] [address] 03/09/2025 9:00 AM EDT P[facility] Attendance[facility] [place] [facility] [address] [place] [phone] 03/11/2025 9:00 AM EDT P[facility] Attendance[facility] [place] [facility] [address] [place] [address] 03/16/2025 9:00 AM EDT P[facility] Attendance[facility] [place] [facility] [address] [place] [phone] 03/18/2025 9:00 AM EDT P[facility] Attendance[facility] [place] [facility] [address] [place] [address] 03/23/2025 9:00 AM EDT [facility] [place] [facility] [address] [place] [address] 03/25/2025 9:00 AM EDT [facility] [place] [facility] [address] [place] [address] 03/30/2025 9:00 AM EDT [facility] [place] [facility] [address] [place] [address] 04/01/2025 9:00 AM EDT P[facility] Attendance[facility] [place] [facility] [address] [place] [address] 04/06/2025 9:00 AM EDT P[facility] Attendance[facility] [place] [facility] [address] [place] [address] 04/08/2025 9:00 AM EDT P[facility] Attendance[facility] [place] [facility] [address] [place] [address] 04/13/2025 9:00 AM EDT P[facility] Attendance[facility] [place] [facility] [address] [place] [address] 04/15/2025 9:00 AM EDT P[facility] Attendance[facility] [facility] [place] [facility] [address] [place] [address] 04/20/2025 9:00 AM EDT P[facility] Attendance[facility] [facility] [place] [facility] [address] [place] [address] 04/22/2025 9:00 AM EDT P[facility] Attendance[facility] [facility] [place] [facility] [address] [place] [address] 04/27/2025 9:00 AM EST [facility] [place] [facility] [address] [place] [address] 04/29/2025 9:00 AM EST [facility] [place] [facility] [address] [place] [phone] 05/04/2025 9:00 AM EST [facility] [place] [facility] [address] [place] [address] 05/06/2025 9:00 AM EST [facility] [place] [facility] [address] [place] [address] 05/11/2025 9:00 AM EST [facility] [place] [facility] [address] [place] [address] 05/13/2025 9:00 AM EST [facility] [place] [facility] [address] [place] [address] 05/18/2025 9:00 AM EST [facility] [place] [facility] [address] [place] [address] 05/20/2025 9:00 AM EST [facility] [place] [facility] [address] [place] [address] 05/25/2025 9:00 AM EST [facility] [place] [facility] [address] [place] [address] 05/27/2025 9:00 AM EST [facility] [place] [facility] [address] [place] [address] 06/01/2025 9:00 AM EST [facility] [place] [facility] [address] [place] [address] 06/03/2025 9:00 AM EST [facility] [place] [facility] [address] [place] [address] 06/08/2025 9:00 AM EST [facility] [place] [facility] [address] [place] [address] 06/10/2025 9:00 AM EST [facility] [place] [facility] [address] [place] [address] 06/15/2025 9:00 AM EST [facility] [place] [facility] [address] [place] [address] 06/17/2025 9:00 AM EST [facility] Attend[facility] [place] [facility] [address] [place] [address] 06/22/2025 9:00 AM EST [facility] Att[facility] [place] [facility] [address] [place] [address] 06/24/2025 9:00 AM EST [facility] Att[facility] [place] [facility] [address] [place] [address] 06/29/2025 9:00 AM EST [facility] Att[facility] [place] [facility] [address] [place] [address] 07/01/2025 9:00 AM EST [facility] [place] [facility] [address] [place] [phone] 07/06/2025 9:00 AM EST [facility] [place] [facility] [address] [place] [phone] 2025 9:00 AM EST [facility] [place] [facility] [address] [place] [phone] 07/13/2025 9:00 AM EST [facility] [place] [facility] [address] [place] [address] 07/15/2025 9:00 AM EST [facility] [place] [facility] [address] [place] [address] 07/20/2025 9:00 AM EST [facility] Att[facility] [place] [facility] [address] [place] [address] 07/22/2025 9:00 AM EST P[facility] Att[facility] [place] [facility] [address] [place] [address] 07/27/2025 9:00 AM EST PACE Attendance/Day Center [facility] [address] [place] [address] 07/29/2025 9:00 AM EST [facility] [address] [address] 08/03/2025 9:00 AM EST PACE Attendance/Day Center [address] [address] documented as of this encounter Visit Diagnoses Not on filedocumented in this encounter Care Teams Learning Program Manager Relationship Specialty Start Date End Date Dede Pimentel NP [address] [place] [address] PCP - General Family Medicine 05/02/24 documented as of this encounter
--- OUTSIDE RECORDS SUMMARY | 2024-09-26 16:36 | XMS_ITS | Encounter Summary ---
Author Organization [facility] Address [address] [place] [address] Care Team Providers Care Test Skein Winder Name Role Phone Dede Pimentel NP Primary Care Provider [phone] Reason for Referral * Consultation (Routine) - Closed Specialty Diagnoses / Procedures Referred By Genesis gomez Referred To Contact Behavioral Health Diagnoses Suicidal ideation Dede Pimentel NP [address] [facility], [place] [address] [place] [address] Phone: tel: fax: Referral ID Status Reason Start Date Expiration Date V isits Requested Visits Authorized [id number] Closed Consult and Treat 08/26/2024 08/26/2025 1 1 Encounter Details Date Type Department Care Team (Late st Contact Info) Description 08/26/2024 PACE Admissions [facility] [place] [address] [place] [id number] Jennifer Keller, RN Suicidal ideation (Primary Dx) Social History Tobacco Use Types Packs/Day Years [...] as of this encounter Progress Notes * Jennifer Keller RN - 08/26/2024 2:32 PM ESTAddended by: JENNIFER KELLER on: 09/03/2024 04:23 PM Modules accepted: Orders * Jennifer Keller RN - 08/26/2024 2:32 PM ESTAddended by: JENNIFER KELLER on: 09/26/2024 12:01 PM Modules accepted: Orders * Jennifer Keller RN - 08/26/2024 2:32 PM EST Late entry for admission on 08/19/2024. documented in this encounter Plan of Treatment Upcoming Encounters Date Type Department Care Team (Late st Contact Info) Description 09/29/2024 9:00 AM EDT [facility] [address] [place] [phone] 09/29/2024 11:00 AM EDT Appointment [facility] CT Scan [address] [place] [address] 09/30/2024 10:30 AM EDT PACE Home Care / [facility] In Home Nursing and Aide Services [address] [place] [phone] Cheryle Pryor 10/01/2024 9:00 AM EDT [facility] [address] [address] 10/03/2024 10:30 AM EDT PACE Home Care / PACE Home Visit Kaitlynn [facility] In Home Nursing and Aide Services [address] [place] [address] Jhoana Grijalva 10/06/2024 9:00 AM EDT [facility] Att[place]ance[facility] [facility] [place] [facility] [address] [place] [address] 10/06/2024 11:00 AM EDT Appointment [address] [address] 10/07/2024 10:30 AM EDT PACE Home Care / PACE Home [place] [facility] [place] [facility] [address] [place] [address] Cheryle Pryor 10/08/2024 9:00 AM EDT [facility] Attendance[place] [facility] [place] [facility] [address] [place] [address] 10/10/2024 10:30 AM EDT PACE Home Care / PACE Home [place] [facility] [place] [facility] [address] [place] [phone] Jhoana Grijalva 10/13/2024 9:00 AM EDT PACE Attendance/[place] [facility] [place] [facility] [address] [place] [address] 10/14/2024 10:30 AM EDT PACE Home Care / PACE Home [place] [facility] [place] [facility] [address] [place] [phone] Cheryle Pryor 10/15/2024 9:00 AM EDT [facility] Att[facility]ance[facility] [facility] [place] [facility] [address] [place] [address] 10/17/2024 10:30 AM EDT PACE Home Care / [facility] [place] [facility] [place] [facility] [address] [place] [address] Jhoana Grijalva 10/20/2024 9:00 AM EDT [facility] Attendance[place] [facility] [place] [facility] [address] [place] [address] 10/21/2024 10:30 AM EDT PACE Home Care / PACE Home [place] [facility] [place] [facility] [address] [place] [address] Cheryle Pryor 10/22/2024 9:00 AM EDT [facility] Att[facility]ance[place] [facility] [place] [facility] [address] [place] [address] 10/24/2024 10:30 AM EDT PACE Home Care / PACE Home [place] [facility] [place] [facility] [address] [place] [address] Jhoana Grijalva 10/27/2024 9:00 AM EDT [facility] Attendance[place] [facility] [place] [facility] [address] [place] [address] 10/28/2024 10:30 AM EDT PACE Home Care / PACE Home Visit [facility] [place] [facility] [address] [place] [address] Cheryle Pryor 10/29/2024 9:00 AM EDT [place] Att[place]ance[place] [facility] [place] [facility] [address] [place] [phone] 10/31/2024 10:30 AM EDT PACE Home Care / PACE Home [place] [facility] [place] [facility] [address] [place] [phone] Jhoana Grijalva 11/03/2024 9:00 AM EDT [place] Att[place]ance[place] [facility] [place] [facility] [address] [place] [address] 11/04/2024 10:30 AM EDT PACE Home Care / [place] [facility] [place] [facility] [address] [place] [phone] Cheryle Pryor 11/05/2024 9:00 AM EDT [facility] Attendance[facility] [facility] [place] [facility] [address] [place] [address] 11/07/2024 10:30 AM EDT PACE Home Care / PACE Home [place] [facility] [place] [facility] [address] [place] [phone] Jhoana Grijalva 11/10/2024 9:00 AM EDT PACE Attendance[facility] [facility] [place] [facility] [address] [place] [phone] 11/10/2024 9:45 AM EDT Office Visit [facility] [address] [place] [phone] Gemini Simmons MD [address] [facility] [address] [place] [address] 11/11/2024 10:30 AM EDT PACE Home Care / PACE Home [place] [facility] [place] [facility] [address] [place] [phone] Cheryle Pryor 11/12/2024 9:00 AM EDT PACE Attendance[facility] [facility] [place] [facility] [address] [place] [address] 11/14/2024 10:30 AM EDT PACE Home Care / PACE Home [place] [facility] [place] [facility] [address] [place] [phone] Jhoana Grijalva 11/17/2024 9:00 AM EDT P[facility] Attendance[facility] [facility] [place] [facility] [address] [place] [phone] 11/18/2024 10:30 AM EDT PACE Home Care / PACE Home [place] [facility] [place] [facility] [address] [place] [phone] Cheryle Pryor 11/19/2024 9:00 AM EDT P[facility] Attendance[facility] [facility] [place] [facility] [address] [place] [address] 11/21/2024 10:30 AM EDT PACE Home Care / PACE Home [place] [facility] [place] [facility] [address] [place] [address] Jhoana Grijalva 11/24/2024 9:00 AM EDT [facility] Attendance[facility] [facility] [place] [facility] [address] [place] [address] 11/26/2024 9:00 AM EDT [facility] Attendance[place] [facility] [place] [facility] [address] [place] [address] 12/01/2024 9:00 AM EDT [facility] Attendance[place] [facility] [place] [facility] [address] [place] [address] 12/03/2024 9:00 AM EDT [facility] Attendance[facility] [facility] [place] [facility] [address] [place] [address] 12/08/2024 9:00 AM EDT [facility] Attendance[place] [facility] [place] [facility] [address] [place] [phone] 12/10/2024 9:00 AM EDT [facility] Attendance[place] [facility] [place] [facility] [address] [place] [address] 12/15/2024 9:00 AM EDT P[facility] Attendance[facility] [facility] [place] [facility] [address] [place] [address] 12/17/2024 9:00 AM EDT [facility] Attendance[place] [facility] [place] [facility] [address] [place] [phone] 12/22/2024 9:00 AM EDT [facility] Attendance[facility] [facility] [place] [facility] [address] [place] [address] 12/24/2024 9:00 AM EDT [facility] Att[facility]ance[facility] [place] [facility] [address] [place] [address] 12/29/2024 9:00 AM EDT P[facility] Attendance[facility] [facility] [place] [facility] [address] [place] [address] 12/31/2024 9:00 AM EDT [facility] Attendance[facility] [facility] [place] [facility] [place] [facility] [address] [place] [address] 01/05/2025 9:00 AM EDT P[facility] Attendance[facility] [facility] [place] [facility] [address] [place] [address] 01/07/2025 9:00 AM EDT P[facility] Attendance[facility] [facility] [place] [facility] [place] [facility] [address] [place] [address] 01/12/2025 9:00 AM EDT [facility] Attendance[facility] [facility] [place] [facility] [place] [facility] [address] [place] [address] 01/14/2025 9:00 AM EDT P[facility] Attendance[facility] [facility] [place] [address] [place] [address] 01/19/2025 9:00 AM EDT P[facility] Attendance[facility] [facility] [place] [facility] [address] [place] [address] 01/21/2025 9:00 AM EDT [facility] Attendance[facility] [facility] [place] [facility] [place] [facility] [address] [place] [address] 01/26/2025 9:00 AM EDT [facility] Attendance[facility] [place] [facility] [place] [facility] [address] [place] [address] 01/28/2025 9:00 AM EDT P[facility] Attendance[facility] [facility] [place] [facility] [address] [place] [address] 02/02/2025 9:00 AM EDT [facility] Attendance[facility] [facility] [place] [facility] [place] [facility] [address] [place] [address] 02/04/2025 9:00 AM EDT P[facility] Attendance[facility] [facility] [place] [facility] [place] [facility] [address] [place] [address] 02/09/2025 9:00 AM EDT P[facility] Attendance[facility] [place] [facility] [place] [facility] [address] [place] [address] 02/11/2025 9:00 AM EDT P[facility] Attendance[facility] [facility] [place] [facility] [address] [place] [address] 02/16/2025 9:00 AM EDT P[facility] Attendance[facility] [facility] [place] [facility] [place] [facility] [address] [place] [address] 02/18/2025 9:00 AM EDT PACE Attendance[facility] [facility] [place] [facility] [address] [place] [address] 02/23/2025 9:00 AM EDT PACE Attendance/[facility] [place] [facility] [place] [facility] [address] [place] [address] 02/25/2025 9:00 AM EDT PACE Attendance[facility] [facility] [place] [facility] [address] [place] [address] 03/02/2025 9:00 AM EDT P[facility] Attendance[facility] [facility] [place] [facility] [address] [place] [address] 03/04/2025 9:00 AM EDT [facility] Attendance[facility] [facility] [place] [facility] [address] [place] [address] 03/09/2025 9:00 AM EDT [facility] Attendance[facility] [facility] [place] [facility] [address] [place] [address] 03/11/2025 9:00 AM EDT [facility] Attendance[facility] [facility] [place] [facility] [address] [place] [address] 03/16/2025 9:00 AM EDT P[facility] Attendance[facility] [facility] [place] [facility] [address] [place] [address] 03/18/2025 9:00 AM EDT [facility] Attendance[facility] [facility] [place] [facility] [address] [place] [address] 03/23/2025 9:00 AM EDT [facility] Attendance[facility] [facility] [place] [facility] [address] [place] [address] 03/25/2025 9:00 AM EDT [facility] Attendance[facility] [facility] [place] [facility] [address] [place] [address] 03/30/2025 9:00 AM EDT P[facility] Attendance/[place] [facility] [place] [facility] [address] [place] [address] 04/01/2025 9:00 AM EDT [facility] Attendance[facility] [facility] [place] [facility] [address] [place] [address] 04/06/2025 9:00 AM EDT [facility] Attendance[facility] [facility] [place] [facility] [address] [place] [address] 04/08/2025 9:00 AM EDT [facility] Attendance[facility] [facility] [place] [facility] [address] [place] [address] 04/13/2025 9:00 AM EDT [facility] Attendance[facility] [facility] [place] [facility] [address] [place] [address] 04/15/2025 9:00 AM EDT [facility] Attendance[facility] [facility] [place] [facility] [address] [place] [address] 04/20/2025 9:00 AM EDT [facility] Attendance[facility] [facility] [place] [facility] [address] [place] [address] 04/22/2025 9:00 AM EDT [facility] Attendance[facility] [facility] [place] [facility] [place] [facility] [address] [place] [address] 04/27/2025 9:00 AM EST [facility] Attendance[facility] [facility] [place] [facility] [place] [facility] [address] [place] [address] 04/29/2025 9:00 AM EST [facility] Attendance[facility] [facility] [place] [facility] [address] [place] [address] 05/04/2025 9:00 AM EST [facility] Attendance[facility] [facility] [place] [facility] [address] [place] [address] 05/06/2025 9:00 AM EST PACE Attendance/[place] [facility] [place] [address] [place] [address] 05/11/2025 9:00 AM EST P[facility] Attendance[facility] [facility] [place] [facility] [address] [place] [address] 05/13/2025 9:00 AM EST [facility] Attendance[facility] [facility] [place] [facility] [address] [place] [address] 05/18/2025 9:00 AM EST [facility] Attendance[facility] [facility] [place] [facility] [address] [place] [address] 05/20/2025 9:00 AM EST [facility] Attendance[facility] [facility] [place] [facility] [address] [place] [address] 05/25/2025 9:00 AM EST [facility] Attendance[facility] [facility] [place] [facility] [address] [place] [address] 05/27/2025 9:00 AM EST [facility] Attendance[facility] [facility] [place] [facility] [address] [place] [address] 06/01/2025 9:00 AM EST [facility] Attendance[facility] [facility] [place] [facility] [address] [place] [address] 06/03/2025 9:00 AM EST [facility] Attendance[facility] [facility] [place] [facility] [address] [place] [address] 06/08/2025 9:00 AM EST [facility] Attendance[facility] [facility] [place] [facility] [address] [place] [address] 06/10/2025 9:00 AM EST [facility] Attendance[facility] [facility] [place] [facility] [address] [place] [address] 06/15/2025 9:00 AM EST [facility] Attend[facility] [facility] [place] [facility] [address] [place] [address] 06/17/2025 9:00 AM EST [facility] [facility] [place] [facility] [address] [place] [address] 06/22/2025 9:00 AM EST [facility] [facility] [place] [facility] [address] [place] [address] 06/24/2025 9:00 AM EST [facility]end[facility] [place] [facility] [place] [facility] [address] [place] [address] 06/29/2025 9:00 AM EST [facility] Attendance[facility] [facility] [place] [facility] [address] [place] [address] 07/01/2025 9:00 AM EST [facility] Attend[place] [facility] [place] [facility] [address] [place] [address] 07/06/2025 9:00 AM EST [facility] Attend[place] [facility] [place] [facility] [address] [place] [address] 2025 9:00 AM EST [facility] Attend[facility] [facility] [place] [facility] [address] [place] [address] 07/13/2025 9:00 AM EST [facility] Attend[facility] [place] [facility] [place] [facility] [address] [place] [address] 07/15/2025 9:00 AM EST [facility] [place] [facility] [address] [place] [address] 07/20/2025 9:00 AM EST [facility] Attend[facility] [facility] [place] [facility] [address] [place] [address] 07/22/2025 9:00 AM EST [facility] [facility] [place] [facility] [address] [place] [address] 07/27/2025 9:00 AM EST [facility] [place] [facility] [address] [address] 07/29/2025 9:00 AM EST [facility] Attendance[facility] [facility] [place] [facility] [address] [place] [address] 08/03/2025 9:00 AM EST [facility] Attend[facility] [facility] [place] [address] [address] Scheduled Referrals Name Type Priority Associated Diagnoses Orde r Schedule PACE Admisssion Outpatient Referral Routine Suicidal ideation Ordered: 09/03/2024 documented as of this encounter Visit Diagnoses Diagnosis Suicidal ideation- Primary documented in this encounter Orders PACE Service Orderables Count Last Ordered Date First Ordered Date [facility] 1 documented in this encounter Care Teams Test Skein Winder Relationship Specialty Start Date End Date Dede Pimentel NP [address] [place] [address] PCP - General Family Medicine 05/02/24 documented as of this encounter
--- OUTSIDE RECORDS SUMMARY | 2024-09-26 16:36 | XMS_ITS ---
Author Organization [facility] Address [address] [place] [address] Care Team Providers Care Marketing Project Lead Name Role Phone Dede Pimentel AUTHORIZATION REPRESENTATIVE Primary Care Provider [phone] Program of [facility]-Inclusive [facility] for the Elderly Status:Enrolled (Active) Start date:09/24/2023 Enrollment date:09/24/2023 Related social drivers of health:Housing Instability, Financial Risk, Transportation, Social Isolation, Food Risk Related service episodes:[facility] Home Health Aide Services (Active) Overview This episode will track PACE documentation. Case Team Name Relationship Phone Dede Pimentel AUTHORIZATION REPRESENTATIVE Nurse Practitioner Reji Weems Recreational Therapist Sandy Keith RN Health Policy Manager Jesi Larkin FINANCIAL SERVICE REP Wash Tub Machine Operator Horace Nagy RD Dietitian Arnav Thomas PT Physical Therapist Ad[facility] Social Worker Julio CEBALLOSW Condenser Tube Tender Mariah Le Condenser Tube Tender Kenneth Castellon Spiritual Care Priyanka Duarte OT Occupational Therapist Charisse Ramos RN Registered Nurse Yaritza Oden MD Primary Care Provider [phone] Continued Care and Services Coordination
--- OUTSIDE RECORDS SUMMARY | 2024-09-26 16:36 | XMS_ITS | Clinical Summary ---
Author Organization [facility] Address [address] [place] [address] Care Team Providers Care Windows Desktop Support Name Role Phone Wale Pimentel MGMT CONSULTANT Primary Care Provider Allergies Active Allergy Reactions Criticality Noted Date Comments Ciprofloxacin Other High 06/28/2021 Skin peeled off back Other reaction(s): OTHER, Rash Skin peeled off back Penicillins Rash High 12/20/2017 remote Sertraline 12/31/2022 Medications ipratropium-albut Darnell (DUONEB) 0.5-2.5 mg/3 mL nebulizer solution Inhale 3 mL by mouth. 024 Active gabapentin (NEURONTIN) 800 mg tabletIndications :neuropathic pain Take 1 tablet (800 mg total) by mouth 3 (three) times a day for 28 days. 3 TIMES DAILY 84 each 025 2024 Active OXcarbazepine (TRILEPTAL) 300 mg tabletIndications :Conversion disorder with attacks or seizures,Bipolar 1 disorder (CMS/HCC) Take 2 tablets (600 mg total) by mouth 2 (two) times a day for 28 days. 112 each 025 2024 Active QUEtiapine XR (SEROquel XR) 200 mg 24 hr tabletIndications :Bipolar 1 disorder (CMS/HCC) Take 2 tablets (400 mg total) by mouth at bedtime for 28 days. 56 each 2024 Active prazosin (MINIPRESS) 1 mg capsuleIndication s:Post-traumatic stress disorder, acute Take 2 capsules (2 mg total) by mouth at bedtime for 28 days. 1 cap by mouth every day at bedtime 56 each 2024 Active apixaban (ELIQUIS) 5 mg tabletIndications :Sinus tachycardia Take 1 tablet (5 mg total) by mouth 2 (two) times a day for 28 days. 56 each 2024 Active aspirin 81 mg chewable tabletIndications :Congestive heart failure, unspecified HF chronicity, unspecified heart failure type (CMS/HCC),Sinus tachycardia,Cereb rovascular accident (CVA), unspecified mechanism (CMS/HCC) Chew 1 tablet (81 mg total) 1 (one) time each day for 28 days. 1 tab chewed in the mouth daily 28 each 2024 Active metoprolol succinate (TOPROL-XL) 25 mg 24 hr tabletIndications :Sinus tachycardia Take 1 tablet (25 mg total) by mouth 1 (one) time each day for 28 days. Do not crush or chew. 56 tablet 2024 Active melatonin 3 mg tabletIndications :Insomnia, unspecified type Take 1 tablet (3 mg total) by mouth at bedtime for 28 days. 1 tab by mouth every day at bedtime 28 each 2024 Active nicotine (NICODERM CQ) 21 mg/24 hrIndications:Tob acco use disorder Place 1 patch on the skin 1 (one) time each day at the same time for 28 days. 1 patch onto the skin every 24 hours, in a.m. 28 patch 2024 Active potassium chloride (MICRO-K) 10 mEq CR capsuleIndication s:Hypertensive heart disease with congestive heart failure, unspecified heart failure type (CMS/HCC) Take 1 capsule (10 mEq total) by mouth 1 (one) time each day for 28 days. 1 tab by mouth 2 times per day 28 each 2024 Active methenamine hippurate (HIPREX) 1 gram tabletIndications :Recurrent UTI Take 1 tablet (1 g total) by mouth 1 (one) time each day in the morning for 28 days. 1 tab by mouth every morning 28 each 2024 Active FLUoxetine (PROzac) 20 mg capsuleIndication s:Bipolar 1 disorder (CMS/HCC) Take 1 capsule (20 mg total) by mouth 1 (one) time each day for 28 days. 28 capsule 2024 Active ferrous sulfate 325 mg (65 mg iron) EC tabletIndications :Iron deficiency anemia, unspecified iron deficiency anemia type Take 1 tablet (325 mg total) by mouth 1 (one) time each day with breakfast for 28 days. 1 tab by mouth every other day 28 each 2024 Active bumetanide (BUMEX) 2 mg tabletIndications :Congestive heart failure, unspecified HF chronicity, unspecified heart failure type (CMS/HCC) Take 1 tablet (2 mg total) by mouth 1 (one) time each day in the morning for 28 days. 1 tab QAM 28 each 2024 Active atorvastatin (LIPITOR) 40 mg tabletIndications :Cerebrovascular accident (CVA), unspecified mechanism (CMS/HCC) Take 1 tablet (40 mg total) by mouth at bedtime for 28 days. 28 each 2024 Active acetaminophen (TYLENOL) 500 mg tabletIndications :Osteoarthritis of both ankles, unspecified osteoarthritis type Take 1 tablet (500 mg total) by mouth 3 (three) times a day before meals for 28 days. 30 tablet 2024 Active metFORMIN (GLUCOPHAGE) 500 mg tabletIndications :Type 2 diabetes mellitus with hypoglycemia without coma, without long-term current use of insulin (CMS/HCC) Take 1 tablet (500 mg total) by mouth 1 (one) time each day with breakfast for 28 days. 1 tab by mouth 1 time per day in the evening with meals each 5 Active traZODone (DESYREL) 50 mg tabletIndications :I need 11 refills. This is a re-order for a script that did not go through yesterday, for [place]. Please have these mailed to the Center by tomorrow. Attn: Carole Aquino LPN Take 0.5 tablets (25 mg total) by mouth 3 (three) times a day with meals for 28 days. 42 each 025 2024 Active LORazepam (ATIVAN) 1 mg tabletIndications :Bipolar 1 disorder (CMS/HCC),Depress ion with anxiety,Anxiety Take 1 tablet (1 mg total) by mouth 3 (three) times a day before meals for 49 doses. Max Daily Amount: 3 mg 49 each Active cholecalciferol (Vitamin D3) 50 mcg (2,000 unit) capsuleIndication s:Vitamin D deficiency Take 3 capsules (6,000 Units total) by mouth 1 (one) time each day. 84 each 2025 Active estradioL (ESTRACE) 0.01 % (0.1 mg/gram) vaginal creamIndications: Post-menopausal atrophic vaginitis Insert 2 g into the vagina 2 (two) times a week. 0.5 applicatorful as directed 2 times per week 42.5 g Active albuterol HFA (PROAIR HFA ; PROVENTIL HFA ; VENTOLIN HFA) 90 mcg/actuation inhalerIndication s:Chronic respiratory failure with hypoxia Inhale 2 puffs by mouth every 6 (six) hours if needed for wheezing or shortness of breath. 6.7 g 025 2024 Active fluticasone-umecl idinium-vilantero l (Trelegy Ellipta) 100-62.5-25 mcg inhalerIndication s:Chronic respiratory failure with hypoxia Inhale 1 puff (100 mcg total) by mouth 1 (one) time each day. Rinse mouth with water after use to reduce aftertaste and incidence of candidiasis. Do not swallow. 1 each 025 2025 Active cefpodoxime (VANTIN) 100 mg tabletIndications :Dysuria Take 1 tablet (100 mg total) by mouth 2 (two) times a day for 7 days. 14 tablet 025 2024 Active acetaminophen (TYLENOL) 500 mg tablet Take 1 tablet (500 mg total) by mouth every 6 hours as needed. 2024 Discontinued(R eorder) albuterol HFA (PROAIR HFA ; PROVENTIL HFA ; VENTOLIN HFA) 90 mcg/actuation inhaler 2 inhalation inhaled 4 times per day prn shortness of breath or wheezing 2024 Discontinued(R eorder) apixaban (ELIQUIS) 5 mg tablet 1 tab by mouth 2 times per day 023 2024 Discontinued(R eorder) aspirin 81 mg chewable tablet 1 tab chewed in the mouth daily 024 2024 Discontinued(R eorder) atorvastatin (LIPITOR) 80 mg tablet 1 tab by mouth every day at bedtime 019 2024 Discontinued(R eorder) bumetanide (BUMEX) 1 mg tablet 023 2024 Discontinued cholecalciferol (VITAMIN D-3) 50 mcg (2,000 unit) tablet 3 tabs by mouth daily 2024 Discontinued(T herapy completed) cyclobenzaprine (FLEXERIL) 10 mg tablet Take 1 tablet (10 mg total) by mouth 3 (three) times a day if needed. 2024 Discontinued(P rescriber Discontinued) FLUoxetine (PROzac) 20 mg capsule Take 1 capsule (20 mg total) by mouth 1 (one) time each day. 024 2024 Discontinued(R eorder) fluticasone-umecl idinium-vilantero l (Trelegy Ellipta) 100-62.5-25 mcg inhaler INHALE 1 PUFF INTO THE LUNGS EVERY 24 HOURS. DOSES SHOULD BE TAKEN AT LEAST 24 HOURS APART. 024 2024 Discontinued(R eorder) gabapentin (NEURONTIN) 300 mg capsule 023 2024 Discontinued(P rescriber Discontinued) lactulose (CHRONULAC) solution Take by mouth. 2024 Discontinued(T herapy completed) LORazepam (ATIVAN) 1 mg tablet 2024 Discontinued(R eorder) melatonin 3 mg tablet 1 tab by mouth every day at bedtime 2024 Discontinued(R eorder) metoprolol succinate (TOPROL-XL) 25 mg 24 hr tablet 1 tab by mouth daily 2024 Discontinued(R eorder) nicotine (NICODERM CQ) 21 mg/24 hr 1 patch onto the skin every 24 hours, in a.m. 2024 Discontinued(R eorder) OXcarbazepine (TRILEPTAL) 300 mg tablet Take 1 tablet (300 mg total) by mouth 2 (two) times a day. 2024 Discontinued(R eorder) pantoprazole (PROTONIX) 40 mg EC tablet Take 1 tablet (40 mg total) by mouth 1 (one) time each day. 2024 Discontinued(P rescriber Discontinued) polyethylene glycol (MIRALAX) 17 gram packet Take 17 g by mouth daily. 2024 Discontinued(T herapy completed) QUEtiapine (SEROquel) 200 mg tablet Take 1 tablet (200 mg total) by mouth 2 (two) times a day. 2024 Discontinued(P rescriber Discontinued) potassium chloride (MICRO-K) 10 mEq CR capsule 1 tab by mouth 2 times per day 2024 Discontinued(R eorder) guaiFENesin (MUCINEX) 600 mg 12 hr tablet Take 2 tablets (1,200 mg total) by mouth 2 (two) times a day. 2024 Discontinued(T herapy completed) metFORMIN (GLUCOPHAGE) 500 mg tablet 1 tab by mouth 1 time per day in the evening with meals 2024 Discontinued(R eorder) clonazePAM (KlonoPIN) 1 mg tablet 1 tab by mouth every 8 hours 2024 Discontinued(P rescriber Discontinued) ferrous sulfate 325 mg (65 mg iron) EC tablet 1 tab by mouth every other day 025 2024 Discontinued(R eorder) traMADoL (ULTRAM) 50 mg tablet every morning and early afternoon 024 2024 Discontinued(P rescriber Discontinued) phenazopyridine (PYRIDIUM) 100 mg tablet Take 1 tablet (100 mg total) by mouth 3 (three) times a day if needed for bladder spasms. 2024 Discontinued(T herapy completed) acetaminophen (TYLENOL) 500 mg tablet 2 tabs by mouth every 8 hours prn pain 2024 Discontinued(D uplicate order) bumetanide (BUMEX) 2 mg tablet 1 tab QAM 2024 Discontinued(R eorder) calcium carbonate-simethi cone ([place] Heartburn-Gas) 750-80 mg tablet,chewable Chew. chew 2 tabs after mid-day meal, every day 2024 Discontinued(P rescriber Discontinued) cyclobenzaprine (FLEXERIL) 10 mg tablet 1 tab by mouth 2 times per day 2024 Discontinued(P rescriber Discontinued) estradioL (ESTRACE) 0.01 % (0.1 mg/gram) vaginal cream 0.5 applicatorful as directed 2 times per week 2024 Discontinued(R eorder) gabapentin (NEURONTIN) 600 mg tablet 1 in afternoon, 1 in evening 2024 Discontinued(R eorder) lactulose (CHRONULAC) solution lactulose) 20 gram/30 mL solution, oral 30 mL by mouth daily until large bowel movement 2024 Discontinued(P rescriber Discontinued) methenamine hippurate (HIPREX) 1 gram tablet 1 tab by mouth every morning 2024 Discontinued(R eorder) OXcarbazepine (TRILEPTAL) 300 mg tablet 1.5 tabs by mouth every evening 2024 Discontinued(T herapy completed) prazosin (MINIPRESS) 1 mg capsule 1 cap by mouth every day at bedtime 2024 Discontinued(R eorder) QUEtiapine (SEROquel) 100 mg tablet 1.5 tabs each evening 2024 Discontinued(P rescriber Discontinued) QUEtiapine XR (SEROquel XR) 200 mg 24 hr tablet 1 tab by mouth every day at bedtime Do not crush, chew, or split. 2024 Discontinued(R eorder) traZODone (DESYREL) 50 mg tabletIndications :Bipolar 1 disorder (CMS/HCC) Take 1 tablet (50 mg total) by mouth at bedtime for 28 days. 28 each 025 2024 Discontinued(R eorder) LORazepam (ATIVAN) 1 mg tabletIndications :Anxiety Take 1 tablet (1 mg total) by mouth 3 (three) times a day before meals for 28 days. Max Daily Amount: 3 mg 30 tablet 5 025 2024 Discontinued(R eorder) ketorolac 30 mg/mL injectionIndicati ons:Fibromyalgia Inject 1 mL (30 mg total) into the shoulder, thigh, or buttocks 1 (one) time for 1 dose. 1 mL 025 2024 traZODone (DESYREL) 50 mg tabletIndications :Bipolar 1 disorder (CMS/HCC) Take 0.5 tablets (25 mg total) by mouth 2 (two) times daily after breakfast and lunch for 28 days. 30 tablet 025 2024 Discontinued traZODone (DESYREL) 50 mg tabletIndications :Bipolar 1 disorder (CMS/HCC) Take 1 tablet (50 mg total) by mouth at bedtime for 28 days. 28 each 025 2024 Discontinued traZODone (DESYREL) 50 mg tabletIndications :Bipolar 1 disorder (CMS/HCC) Take 0.5 tablets (25 mg total) by mouth 3 (three) times a day with meals for 28 days. 42 each 025 2024 Discontinued(R eorder) phenazopyridine (PYRIDIUM) 100 mg tabletIndications :Dysuria Take 1 tablet (100 mg total) by mouth 3 (three) times a day with meals for 3 days. 9 each 025 2024 Hospital, Clinic, or Other Facility Administered Medication Ordered Dose Route Frequency Start Date End Date Status methylPREDNISolone sodium succ (SOLU-Medrol) injection 125 mgIndications:Fibr omyalgia 125 mg IM Once 09/03/2024 Active traZODone (DESYREL) tablet 25 mgIndications:Bipo lar 1 disorder (CMS/HCC) 25 mg oral 2 times daily with meals 09/02/2024 5 Discontinued Active Problems Problem Noted Date Diagnosed Date Encounter for medication management 09/04/20242023 Assessment & Plan (09/04/2024 3:45 PM EDT): Almost 4 hours spent on getting short-fill and 28-day cycle, with Carole Aquino LPN who does home medication management. Her recent hospital d/c med list was checked and current meds updated. Urinary, incontinence, stress female 07/30/2024 Tendonitis of left rotator cuff 07/30/2024 Pain in left shoulder 07/30/2024 Type 2 diabetes mellitus with hypoglycemia 07/30 Assessment & Plan (09/04/2024 3:45 PM EDT): Fairly well managed A1C, continue current management. Assessment & Plan (09/12/2024 8:30 PM EDT): This is a chronic condition which does not need any change in current symptom management. Continue to monitor, and treat if needed. Orders: metFORMIN (GLUCOPHAGE) 500 mg tablet; Take 1 tablet (500 mg total) by mouth 1 (one) time each day with breakfast for 28 days. 1 tab by mouth 1 time per day in the evening with meals Osteoarthritis of feet, bilateral 07/30/2024 Overview (07/30/2024): Osteoarthritis, Bilateral Feet Osteoarthritis of ankles, bilateral 07/30/2024 Overview (07/30/2024): Osteoarthritis, Bilateral Feet & Ankles Assessment & Plan (09/12/2024 8:30 PM EDT): This is a chronic condition which does not need any current change in symptom management. Continue to monitor, and treat if needed. Orders: acetaminophen (TYLENOL) 500 mg tablet; Take 1 tablet (500 mg total) by mouth 3 (three) times a day before meals for 28 days. Solitary lung nodule 07/30/2024 Hypertensive heart disease with congestive heart failure 07/30/2024 Overview (07/30/2024): Hypertension with CHF Assessment & Plan (09/12/2024 8:30 PM EDT): Patient is currently asymptomatic and stable. Continue current management. Monitor and treat as appropriate. Orders: potassium chloride (MICRO-K) 10 mEq CR capsule; Take 1 capsule (10 mEq total) by mouth 1 (one) time each day for 28 days. 1 tab by mouth 2 times per day Hematuria, microscopic 07/30/2024 Malabsorption 07/30/2024 Pain in back 07/30/2024 Injury of left rotator cuff 07/30/2024 Plantar fascial fibromatosis 07/30/2024 Bilateral lower extremity edema 07/30/2024 Dysphonia 07/30/2024 Paradoxical vocal fold motion disorder Oral lesion 07/30/2024 Assessment & Plan (09/04/2024 3:45 PM EDT): No lesion palpated except normal size sublingual lymphatic tissue, left of lingual frenulum. Lower gum: edentulous. No cervical LAD. DDD (degenerative disc disease), cervical 2024 Radiculopathy, cervical 07/30/2024 Multiple nodules of lung 07/30/2024 Smokes cigarettes 07/30/2024 Overview (07/30/2024): Smoker, Cigarettes, Current Blood in stool 07/30/2024 Dysphagia 07/30/2024 Abdominal pain 07/30/2024 Post-menopause bleeding 07/30/2024 Depression with anxiety 07/30/2024 Assessment & Plan (09/04/2024 3:45 PM EDT): No change in medications. Assessment & Plan (09/12/2024 8:30 PM EDT): Patient is currently asymptomatic and stable. Continue current management. Monitor and treat as appropriate. 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 Continue to monitor. Orders: prazosin (MINIPRESS) 1 mg capsule; Take 2 capsules (2 mg total) by mouth at bedtime for 28 days. 1 cap by mouth every day at bedtime Sinus tachycardia 07/30/2024 Assessment & Plan (09/12/2024 8:30 PM EDT): This condition is part of patient's history. Continue to monitor. Orders: apixaban (ELIQUIS) 5 mg tablet; Take 1 tablet (5 mg total) by mouth 2 (two) times a day for 28 days. aspirin 81 mg chewable tablet; Chew 1 tablet (81 mg total) 1 (one) time each day for 28 days. 1 tab chewed in the mouth daily metoprolol succinate (TOPROL-XL) 25 mg 24 hr tablet; Take 1 tablet (25 mg total) by mouth 1 (one) time each day for 28 days. Do not crush or chew. Iron deficiency anemia 07/30/2024 Assessment & Plan (09/12/2024 8:30 PM EDT): This medical problem is currently asymptomatic, but adequately treated, and closely monitored, with labs and acute visits as needed. Assessment & Plan (09/12/2024 8:30 PM EDT): Patient is currently asymptomatic and stable. Continue current management. Monitor and treat as appropriate. Orders: ferrous sulfate 325 mg (65 mg iron) EC tablet; Take 1 tablet (325 mg total) by mouth 1 (one) time each day with breakfast for 28 days. 1 tab by mouth every other day Abnormal mammogram 07/30/2024 Mass of right breast 07/30/2024 Overview (07/30/2024): Nodule, Right Breast Other specified disorders of bone density and structure, multiple sites 07/30/2024 Overview (07/30/2024): DEXA: Z13.820, M85.89 Paroxysmal atrial fibrillation 01/29/2024 Assessment & Plan (09/12/2024 8:30 PM EDT): Patient is currently asymptomatic and stable. She is anticoagulated and rate controlled. Continue current management. Monitor and change treatment as appropriate. Congestive heart failure 01/29/2024 Overview (07/30/2024): CHF, Chronic Diastolic Assessment & Plan (09/12/2024 8:30 PM EDT): Patient is currently asymptomatic and stable. Continue current management. Monitor and treat as appropriate. Orders: aspirin 81 mg chewable tablet; Chew 1 tablet (81 mg total) 1 (one) time each day for 28 days. 1 tab chewed in the mouth daily bumetanide (BUMEX) 2 mg tablet; Take 1 tablet (2 mg total) by mouth 1 (one) time each day in the morning for 28 days. 1 tab QAM Hypertensive disorder 01/29/2024 Overview (04/17/2024): Last Assessment & Plan: Continue metoprolol with holding parameters. Hyperlipidemia 01/29/2024 Overview (04/17/2024): Last Assessment & Plan: Continue atorvastatin. Assessment & Plan (09/12/2024 8:30 PM EDT): This is a chronic condition which does not need any current change in symptom management. Continue to monitor, and treat if needed. Obesity 01/29/2024 Overview (07/30/2024): Obesity, Severe Prediabetes 01/29/2024 Edentulous 01/29/2024 Constipation 01/29/2024 GERD (gastroesophageal reflux disease) Schatzki's ring 01/29/2024 Leukocytosis (leucocytosis) 01/29/2024 Recurrent UTI 01/29/2024 Assessment & Plan (09/12/2024 8:30 PM EDT): Patient is currently asymptomatic and stable. Continue current management. Monitor and treat as appropriate. Orders: methenamine hippurate (HIPREX) 1 gram tablet; Take 1 tablet (1 g total) by mouth 1 (one) time each day in the morning for 28 days. 1 tab by mouth every morning Incontinent of urine 01/29/2024 Atrophic vaginitis 01/29/2024 Migraine 01/29/2024 Assessment & Plan (09/04/2024 3:45 PM EDT): Requested 'the shots' which worked for her about 6 weeks ago. Dementia 01/29/2024 Overview (07/30/2024): Dementia, Mild Bipolar 1 disorder 01/29/2024 Overview (04/17/2024): Last Assessment & Plan: Continue home medication. Assessment & Plan (09/04/2024 3:45 PM EDT): New dose: Orders: traZODone (DESYREL) 50 mg tablet; Take 0.5 tablets (25 mg total) by mouth 3 (three) times a day with meals for 28 days. Assessment & Plan (09/12/2024 8:30 PM EDT): This medical problem is currently asymptomatic, but adequately treated, and closely monitored, with acute visits as needed. Orders: OXcarbazepine (TRILEPTAL) 300 mg tablet; Take 2 tablets (600 mg total) by mouth 2 (two) times a day for 28 days. QUEtiapine XR (SEROquel XR) 200 mg 24 hr tablet; Take 2 tablets (400 mg total) by mouth at bedtime for 28 days. traZODone (DESYREL) 50 mg tablet; Take 1 tablet (50 mg total) by mouth at bedtime for 28 days. traZODone (DESYREL) tablet 25 mg FLUoxetine (PROzac) 20 mg capsule; Take 1 capsule (20 mg total) by mouth 1 (one) time each day for 28 days. Anxiety 01/29/2024 Assessment & Plan (09/12/2024 8:30 PM EDT): This is a chronic condition which does not need any current change in symptom management. Continue to monitor, and treat if needed. Orders: LORazepam (ATIVAN) 1 mg tablet; Take 1 tablet (1 mg total) by mouth 3 (three) times a day before meals for 28 days. Max Daily Amount: 3 mg Fibromyalgia 01/29/2024 Assessment & Plan (09/03/2024 3:54 PM EDT): Orders: methylPREDNISolone sodium succ (SOLU-Medrol) injection 125 mg ketorolac 30 mg/mL injection; Inject 1 mL (30 mg total) into the shoulder, thigh, or buttocks 1 (one) time for 1 dose. Dupuytren's contracture of right hand 01/29/2024 Trigger finger 01/29/2024 Overview (07/30/2024): Trigger Finger/Flexor Tendonitis, Third Digit, Right Hand Hearing loss 01/29/2024 Chronic respiratory failure with hypoxia 024 Oxygen dependent 01/29/2024 Suicidal ideations 01/29/2024 Assessment & Plan (09/04/2024 3:45 PM EDT): None present currently; will be increasing seroquel dose if needed. Conversion disorder with attacks or seizures 11/2023 Assessment & Plan (09/12/2024 8:30 PM EDT): Patient is currently asymptomatic and stable. Continue current management. Monitor and treat as appropriate. Orders: OXcarbazepine (TRILEPTAL) 300 mg tablet; Take 2 tablets (600 mg total) by mouth 2 (two) times a day for 28 days. Vocal cord dysfunction 10/28/2023 Complex regional pain syndrome I 02/05/2023 Overview (04/17/2024): Last Assessment & Plan: Per Ortho: CRPS, Trigger secondary to MCP hyperextension RT On Prednisone 20 mg daily x 30 days until 02/10 Assessment & Plan (09/12/2024 8:30 PM EDT): Will defer to PCP to manage this if the condition recurs or worsens, in the future. Suggest increasing gabapentin if needed. Orders: gabapentin (NEURONTIN) 800 mg tablet; Take 1 tablet (800 mg total) by mouth 3 (three) times a day for 28 days. 3 TIMES DAILY Gait instability 02/04/2023 Overview (04/17/2024): Last Assessment & Plan: Obtain PT OT evaluation for the patient. Rehab pending Recurrent bouts of chest pain, no EKG or troponin changes Negative stress test and myocardial perfusion scan 2021, echo done 2022 @ [facility] [place] Tobacco use disorder 11/23/2022 Overview (04/17/2024): Last Assessment & Plan: Recidivism now smoking half pack per day. Approximately 5 minutes of dedicated tobacco cessation counseling provided. Patient will use Nicotrol nicotine replacement therapy but declines use of alternative nicotine replacement modalities and Chantix. Assessment & Plan (09/12/2024 8:30 PM EDT): This is a chronic condition which PAR does not wish to stop. Continue to monitor, encourage and treat if she is agreeable. Orders: nicotine (NICODERM CQ) 21 mg/24 hr; Place 1 patch on the skin 1 (one) time each day at the same time for 28 days. 1 patch onto the skin every 24 hours, in a.m. JOSEPH (obstructive sleep apnea) 06/28/2021 Overview (04/17/2024): Followed at [facility] sleep program. Last Assessment & Plan: Congratulated [...] indication currently to broaden Abx -Cont Mucinex Assessment & Plan (09/04/2024 3:45 PM EDT): Quiescent currently. Chronic obstructive pulmonary disease 12/17/2018 Overview (04/17/2024): PFT 08/05/2021: FEV1 1.56 L or 63% predicted Last Assessment & Plan: Continue the inhalers. Smoking cessation encouraged Nicotine patch as well as nicotine gum. Encounters Date Type Department Care Team Description 09/26/2024 12:30 PM EDT [facility]ICO[facility] [address] [place] [phone] Naila Kinney, LOUISE Adult general medical examination (Primary Dx) 09/26/2024 12:00 PM EDT [facility] [address] [place] [phone] Wale Pimentel NP 09/26/2024 10:30 AM EDT [facility] Home Care / [facility] Home Visit Kaitlynn NICOLE [facility] [address] [place] [phone] Jhoana Grijalva 09/25/2024 Telephone Kaitlynn NICOLE MA Social Work [address] [place] [phone] Beverly Loera LCSW 09/19/2024 10:00 AM EDT [facility] / [facility] Home Visit Kaitlynn NICOLE MA [facility] [address] [place] [address] [phone] Jhoana Grijalva 09/17/2024 10:00 AM EDT PACE External Visit Kaitlynn NICOLE [address] [address] Type 2 diabetes mellitus with hypoglycemia without coma, without long-term current use of insulin (CMS/HCC); Edentulous 09/12/2024 10:00 AM EDT PACE Home Care / PACE Home Visit Kaitlynn NICOLE [place] [facility] [address] [place] [phone] Jhoana Grijalva 09/10/2024 [facility]phone [facility] Social Work [address] [place] [phone] Beverly Loera LCSW 09/09/2024 10:00 AM EDT PACE Home Care / PACE Home Visit Kaitlynn NICOLE [place] [facility] [address] [place] [phone] Shawna Lebron 09/08/2024 11:00 AM EDT Clinical Support [facility] [address] [place] [phone] Sandy Keith RN 09/05/2024 10:00 AM EDT PACE Home Care / PACE Home Visit Kaitlynn NICOLE [place] [facility] [address] [place] [phone] Jhoana Grijalva 09/05/2024 [facility]phone [facility] Social Work [address] [place] [phone] Mariah Adams 09/03/2024 1:00 PM EDT PACE [facility] Nutrition Services [address] [place] [phone] Debi Nagy, ROWENA Type 2 diabetes mellitus with hypoglycemia without coma, without long-term current use of insulin (CMS/HCC) (Primary Dx) 09/03/2024 12:00 PM EDT Office Visit [facility] [place] [facility] [address] [place] [phone] Yaritza Oden MD Type 2 diabetes mellitus with hypoglycemia without coma, without long-term current use of insulin (CMS/HCC) (Primary Dx); Oral lesion; Ill-fitting dentures; Chronic migraine with aura without status migrainosus, not intractable; Fibromyalgia; Bipolar 1 disorder (CMS/HCC); COPD with acute exacerbation (CMS/HCC); Suicidal ideations; Depression with anxiety; Encounter for medication management 09/02/2024 10:00 AM EDT PACE Home Care / PACE Home Visit Kaitlynn NICOLE [place] [facility] [address] [place] [phone] Shawna Lebron 09/01/2024 1:30 PM EDT [facility] [address] [place] [phone] Yaritza Oden MD Complex regional pain syndrome type 1 of both lower extremities (Primary Dx); Paroxysmal atrial fibrillation ([facility]); Hypertensive heart disease with congestive heart failure, unspecified heart failure type ([facility]); Conversion disorder with attacks or seizures; Congestive heart failure, unspecified HF chronicity, unspecified heart failure type ([facility]); Bipolar 1 disorder ([facility]); Recurrent UTI; Osteoarthritis of both ankles, unspecified osteoarthritis type; Other iron deficiency anemia; Hyperlipidemia, unspecified hyperlipidemia type; Anxiety; Post-traumatic stress disorder, acute; Tobacco use disorder; Type 2 diabetes mellitus with hypoglycemia without coma, without long-term current use of insulin ([facility]); Depression with anxiety; Sinus tachycardia; Cerebrovascular accident (CVA), unspecified mechanism ([facility]); Insomnia, unspecified type; Iron deficiency anemia, unspecified iron deficiency anemia type 09/01/2024 10:45 AM EDT [facility] Physical Therapy [address] [place] [phone] Arnav Thomas PT 08/29/2024 10:00 AM EST PACE Home Care / PACE Home Visit Kaitlynn [facility] In Home Nursing and Aide Services [address] [place] [phone] Jhoana Grijalva 08/26/2024 PACE Admissions [facility] Clinic [address] [place] [phone] Jennifer Pacheco RN Suicidal ideation (Primary Dx) 08/26/2024 Telephone [facility] [address] [place] [address] Jennifer Pacheco RN 07/23/[address] [facility] [address] [place] [address] Elvira Damon MD Hematuria, unspecified 2024 9:45 AM EST Office Visit Pulmonolgy - [place] [address] [facility] [address] [place] [address] Gemini Simmons MD JOSEPH (obstructive sleep apnea) (Primary Dx); Chronic obstructive pulmonary disease, unspecified COPD type (CMS/HCC); Tobacco use disorder 07/04/[address] [facility] [address] [place] [address] Wale Pimentel NP Encounter for [...] Sign Reading Time Taken Comments Blood Pressure 146/89 09/26/2024 12:20 PM EDT Pulse 75 09/26/2024 12:20 PM EDT Temperature 37 ??C (98.6 ??F) 09/26/2024 12:20 PM EDT Respiratory Rate 18 07/09/2024 3:16 PM EST Oxygen Saturation 92% 09/26/2024 12:48 PM EDT Inhaled Oxygen Concentration - - Weight 108 kg (238 lb 9.6 oz) 09/26/2024 12:37 P M EDT Height 165.1 cm (5' 5 ) 09/03/2024 1:00 PM EDT Body Mass Index 39.71 09/03/2024 1:00 PM EDT Plan of Treatment Upcoming Encounters Date Type Department Care Team (Late st Contact Info) Description 09/29/2024 9:00 AM EDT PACE Attendance/Day Center [facility] [address] [place] [address] 09/29/2024 11:00 AM EDT Appointment [facility] CT Scan [address] [place] [address] 09/30/2024 10:30 AM EDT PACE Home Care / PACE Home Visit Kaitlynn NICOLE [place] [facility] [address] [place] [phone] Cheryle Pryor 10/01/2024 9:00 AM EDT PACE Attendance/Day [place] [facility] [place] [facility] [address] [place] [phone] 10/03/2024 10:30 AM EDT PACE Home Care / PACE Home Visit Kaitlynn NICOLE [place] [facility] [address] [place] [phone] Jhoana Grijalva 10/06/2024 9:00 AM EDT PACE Attendance/[place] [facility] [place] [facility] [address] [place] [phone] 10/06/2024 11:00 AM EDT Appointment [address] [phone] 10/07/2024 10:30 AM EDT PACE Home Care / PACE Home Visit Kaitlynn NICOLE [place] [facility] [address] [place] [phone] Cheryle Pryor 10/08/2024 9:00 AM EDT PACE Attendance/[place] [facility] [place] [facility] [address] [place] [phone] 10/10/2024 10:30 AM EDT PACE Home Care / PACE Home Visit Kaitlynn NICOLE [place] [facility] [address] [place] [phone] Jhoana Grijalva 10/13/2024 9:00 AM EDT PACE Attendance/Day Center [facility] [address] [place] [phone] 10/14/2024 10:30 AM EDT PACE Home Care / PACE Home Visit Kaitlynn NICOLE [place] [facility] [address] [place] [phone] Cheryle Pryor 10/15/2024 9:00 AM EDT PACE Attendance/[place] [facility] [place] [facility] [address] [place] [address] 10/17/2024 10:30 AM EDT PACE Home Care / PACE Home Visit Kaitlynn NICOLE [place] [facility] [address] [place] [phone] Jhoana Grijalva 10/20/2024 9:00 AM EDT PACE Attendance/[place] [facility] [place] [facility] [address] [place] [address] 10/21/2024 10:30 AM EDT PACE Home Care / PACE Home Visit Kaitlynn NICOLE [place] [facility] [address] [place] [phone] Cheryle Pryor 10/22/2024 9:00 AM EDT PACE Attendance/[place] [facility] [place] [facility] [address] [place] [phone] 10/24/2024 10:30 AM EDT PACE Home Care / PACE Home Visit Kaitlynn NICOLE [place] [facility] [address] [place] [phone] Jhoana Grijalva 10/27/2024 9:00 AM EDT P[facility] Attendance/[place] [facility] [place] [facility] [address] [place] [phone] 10/28/2024 10:30 AM EDT PACE Home Care / PACE Home Visit Kaitlynn NICOLE [place] [facility] [address] [place] [phone] Cheryle Pryor 10/29/2024 9:00 AM EDT P[facility] Attendance/[place] [facility] [place] [facility] [address] [place] [phone] 10/31/2024 10:30 AM EDT PACE Home Care / PACE Home Visit Kaitlynn NICOLE [place] [facility] [address] [place] [phone] Jhoana Grijalva 11/03/2024 9:00 AM EDT P[facility] Attendance/[place] [facility] [place] [facility] [address] [place] [address] 11/04/2024 10:30 AM EDT PACE Home Care / PACE Home Visit Kaitlynn NICOLE [place] [facility] [address] [place] [phone] Cheryle Pryor 11/05/2024 9:00 AM EDT PACE Attendance/[place] [facility] [place] [facility] [address] [place] [phone] 11/07/2024 10:30 AM EDT PACE Home Care / PACE Home Visit Kaitlynn NICOLE [place] [facility] [address] [place] [phone] Jhoana Grijalva 11/10/2024 9:00 AM EDT PACE [facility]endance/[facility] [place] [facility] [address] [place] [phone] 11/10/2024 9:45 AM EDT Office Visit [facility] [address] [facility] [address] [phone] Gemini Simmons MD [address] [facility] [address] [address] 11/11/2024 10:30 AM EDT PACE Home Care / PACE Home Visit Kaitlynn NICOLE [place] [facility] [address] [place] [phone] Cheryle Pryor 11/12/2024 9:00 AM EDT PACE Attendance/[place] [facility] [place] [facility] [address] [place] [phone] 11/14/2024 10:30 AM EDT PACE Home Care / PACE Home Visit Kaitlynn NICOLE [place] [facility] [address] [place] [phone] Jhoana Grijalva 11/17/2024 9:00 AM EDT [facility] Att[facility] [place] [facility] [place] [facility] [address] [place] [address] 11/18/2024 10:30 AM EDT PACE Home Care / [facility] Home Visit [facility] [place] [facility] [address] [place] [phone] Cheryle Pryor 11/19/2024 9:00 AM EDT [facility] Att[facility] [facility] [place] [facility] [address] [place] [phone] 11/21/2024 10:30 AM EDT PACE Home Care / [facility] Home Visit [facility] [place] [facility] [address] [place] [phone] Jhoana Grijalva 11/24/2024 9:00 AM EDT [facility] Attendance[facility] [facility] [place] [facility] [address] [place] [phone] 11/26/2024 9:00 AM EDT [facility] Attendance[facility] [facility] [place] [facility] [address] [place] [phone] 12/01/2024 9:00 AM EDT [facility] Att[place] [facility] [place] [facility] [address] [place] [phone] 12/03/2024 9:00 AM EDT [facility] Att[place] [facility] [place] [facility] [address] [place] [phone] 12/08/2024 9:00 AM EDT [facility] Att[place] [facility] [place] [facility] [address] [place] [phone] 12/10/2024 9:00 AM EDT [facility] Att[facility] [facility] [place] [facility] [address] [place] [phone] 12/15/2024 9:00 AM EDT [facility] Att[facility]ance[facility] [place] [facility] [address] [place] [address] 12/17/2024 9:00 AM EDT [facility] Attendance[facility] [facility] [place] [facility] [address] [place] [address] 12/22/2024 9:00 AM EDT [facility] Attendance/[place] [facility] [place] [facility] [address] [place] [address] 12/24/2024 9:00 AM EDT [facility] Attendance/[place] [facility] [place] [facility] [address] [place] [address] 12/29/2024 9:00 AM EDT [facility] Attendance/[place] [facility] [place] [facility] [address] [place] [address] 12/31/2024 9:00 AM EDT [facility] Attendance/[place] [facility] [place] [facility] [address] [place] [address] 01/05/2025 9:00 AM EDT [facility] [place] [facility] [address] [place] [phone] 01/07/2025 9:00 AM EDT [facility] Attendance/[place] [facility] [place] [facility] [address] [place] [phone] 01/12/2025 9:00 AM EDT [facility] Att[facility] [place] [facility] [address] [place] [address] 01/14/2025 9:00 AM EDT [facility] Att[facility] [place] [facility] [place] [facility] [address] [place] [address] 01/19/2025 9:00 AM EDT [facility] Att[facility]ance[facility] [facility] [place] [facility] [address] [place] [address] 01/21/2025 9:00 AM EDT [facility] Att[facility] [place] [facility] [address] [place] [address] 01/26/2025 9:00 AM EDT [facility] Attendance/[place] [facility] [place] [facility] [address] [place] [address] 01/28/2025 9:00 AM EDT [facility] Attendance/[place] [facility] [place] [facility] [address] [place] [address] 02/02/2025 9:00 AM EDT [facility] Attendance/[place] [facility] [place] [facility] [address] [place] [address] 02/04/2025 9:00 AM EDT [facility] Attendance/[place] [facility] [place] [facility] [address] [place] [address] 02/09/2025 9:00 AM EDT P[facility] Attendance/[place] [facility] [place] [facility] [address] [place] [phone] 02/11/2025 9:00 AM EDT P[facility] Attendance/[place] [facility] [place] [facility] [address] [place] [phone] 02/16/2025 9:00 AM EDT P[facility] Attendance/[place] [facility] [place] [facility] [address] [place] [phone] 02/18/2025 9:00 AM EDT P[facility] Attendance/[place] [facility] [place] [facility] [address] [place] [address] 02/23/2025 9:00 AM EDT P[facility] Attendance/[place] [facility] [place] [facility] [address] [place] [address] 02/25/2025 9:00 AM EDT P[facility] Attendance/[place] [facility] [place] [facility] [address] [place] [address] 03/02/2025 9:00 AM EDT P[facility] Attendance/[place] [facility] [place] [facility] [address] [place] [address] 03/04/2025 9:00 AM EDT P[facility] Attendance/[place] [facility] [place] [facility] [address] [place] [address] 03/09/2025 9:00 AM EDT P[facility] Attendance/[place] [facility] [place] [facility] [address] [place] [address] 03/11/2025 9:00 AM EDT P[facility] Attendance/[place] [facility] [place] [facility] [address] [place] [address] 03/16/2025 9:00 AM EDT P[facility] Attendance/[place] [facility] [place] [facility] [address] [place] [address] 03/18/2025 9:00 AM EDT P[facility] Attendance/[place] [facility] [place] [facility] [address] [place] [phone] 03/23/2025 9:00 AM EDT P[facility] Attendance/[place] [facility] [place] [facility] [address] [place] [phone] 03/25/2025 9:00 AM EDT P[facility] Attendance/[place] [facility] [place] [facility] [address] [place] [phone] 03/30/2025 9:00 AM EDT P[facility] Attendance/[place] [facility] [place] [facility] [address] [place] [address] 04/01/2025 9:00 AM EDT P[facility] Attendance/[place] [facility] [place] [facility] [address] [place] [address] 04/06/2025 9:00 AM EDT [facility] Att[facility] [place] [facility] [address] [place] [address] 04/08/2025 9:00 AM EDT P[facility] Attendance/[place] [facility] [place] [facility] [address] [place] [address] 04/13/2025 9:00 AM EDT [facility] Attendance[facility] [facility] [place] [facility] [address] [place] [phone] 04/15/2025 9:00 AM EDT [facility] Att[facility] [facility] [place] [facility] [address] [place] [phone] 04/20/2025 9:00 AM EDT [facility] Att[place] [facility] [place] [facility] [address] [place] [phone] 04/22/2025 9:00 AM EDT [facility] Att[facility] [facility] [place] [facility] [address] [place] [phone] 04/27/2025 9:00 AM EST [facility] [facility] [place] [facility] [address] [place] [phone] 04/29/2025 9:00 AM EST [facility] Att[facility] [facility] [place] [facility] [address] [place] [phone] 05/04/2025 9:00 AM EST P[facility] [place] [facility] [address] [place] [phone] 05/06/2025 9:00 AM EST [facility] Att[facility] [facility] [place] [facility] [address] [place] [phone] 05/11/2025 9:00 AM EST [facility] [place] [facility] [address] [place] [phone] 05/13/2025 9:00 AM EST [facility] [place] [facility] [address] [place] [phone] 05/18/2025 9:00 AM EST [facility] Att[facility] [place] [facility] [address] [place] [phone] 05/20/2025 9:00 AM EST [facility] Att[facility] [place] [facility] [address] [place] [address] 05/25/2025 9:00 AM EST [facility] Att[facility] [place] [facility] [address] [place] [address] 05/27/2025 9:00 AM EST [facility] Att[facility] [place] [facility] [address] [place] [address] 06/01/2025 9:00 AM EST [facility] Attend[facility] [place] [facility] [address] [place] [phone] 06/03/2025 9:00 AM EST P[facility]endance/[facility] [place] [facility] [address] [place] [phone] 06/08/2025 9:00 AM EST [facility] Attend[facility] [place] [facility] [address] [place] [phone] 06/10/2025 9:00 AM EST [facility] [place] [facility] [address] [place] [phone] 06/15/2025 9:00 AM EST [facility] [place] [facility] [address] [place] [address] 06/17/2025 9:00 AM EST [facility] [place] [facility] [address] [place] [phone] 06/22/2025 9:00 AM EST [facility] [place] [facility] [address] [place] [phone] 06/24/2025 9:00 AM EST [facility] [place] [facility] [address] [place] [phone] 06/29/2025 9:00 AM EST [facility] [place] [facility] [address] [place] [address] 07/01/2025 9:00 AM EST [facility] Attend[facility] [place] [facility] [address] [place] [address] 07/06/2025 9:00 AM EST [facility] [place] [facility] [address] [place] [address] 2025 9:00 AM EST [facility] [place] [facility] [address] [place] [phone] 07/13/2025 9:00 AM EST [facility] [place] [facility] [address] [place] [phone] 07/15/2025 9:00 AM EST [facility] [place] [facility] [address] [place] [phone] 07/20/2025 9:00 AM EST [facility] [place] [facility] [address] [place] [phone] 07/22/2025 9:00 AM EST [facility] [place] [facility] [address] [place] [address] 07/27/2025 9:00 AM EST [facility] [place] [facility] [address] [place] [phone] 07/29/2025 9:00 AM EST [facility] [place] [facility] [address] [place] [phone] 08/03/2025 9:00 AM EST [facility] [place] [facility] [address] [place] [address] Health Maintenance Due Date Last Done Comments Diabetes: Annual Foot Exam 1972 Diabetes: Annual Retina Eye Exam 1972 Meningococcal B Vacine (1 of 5 - Increased Risk) 1972 Cervical Cancer Screening: Pap Smear 1983 Zoster Vaccines (1 of 2) 2012 RSV Immunization Adult Patients (1 - Risk 60-74 years 1-dose series) [...] HM ANNUAL BMP BLOOD TEST Routine 06/04/2024 ELLIOT SCREENING DIGITAL Routine 03/26/2024 3:43 PM EDT [...] scant material received may not be fully sales representative door to door of the endometrium. Clinical correlation is recommended. 07/24/2024 11:07 AM [facility] Clinical Information Hematuria (? PMB) 07/24/2024 11:07 AM EST [facility] Gross Description A. Endometrium, biopsy: Labeled with the patient's name and information. Received in formalin is an approximately 0.2 x 0.1 x 0.1 cm aggregate of soft to mucoid, white tissue fragments, which is wrapped in paper and submitted in toto in one cassette, multiple pieces, x2. Please note: Small tissue fragments may not survive processing. [email or web address]/JAYLEEN 07/24/2024 11:07 AM [facility] Disclaimer Unless otherwise specified, all tissue is 10% NB formalin fixed and paraffin embedded. 07/24/2024 11:07 AM [facility] Tissue Endometrial structure / Unknown 07/22/2024 07/23/2024 7:03 AM EST us Elvira Damon MD LAB PATHOLOGY ORDERABLES Final Result [facility] [address] [place] [address], * (ABNORMAL) Urinalysis with reflex microscopic and culture (07/04/2024 8:00 AM EST) Specific [place] Urine 1.036(H) 1.003 - 1.030 LAB URINALYSIS - AUTOMATED METHOD 07/04/2024 2:20 PM [facility] pH, Urine 8.0 5.0 - 8.0 pH LAB URINALYSIS - AUTOMATED METHOD 07/04/2024 2:20 PM [facility] Leukocytes, Urine Moderate(A) Negative LAB URINALYSIS - AUTOMATED METHOD 07/04/2024 2:20 PM [facility] Nitrite, Urine Positive(A) Negative LAB URINALYSIS - AUTOMATED METHOD 07/04/2024 2:20 PM [facility] Protein, Urine 100(A) <=Trace mg/dL LAB URINALYSIS - AUTOMATED METHOD 07/04/2024 2:20 PM [facility] Glucose, Urine Negative Negative mg/dL LAB URINALYSIS - AUTOMATED METHOD 07/04/2024 2:20 PM [facility] Ketones, Urine Trace(A) Negative mg/dL LAB URINALYSIS - AUTOMATED METHOD 07/04/2024 2:20 PM [facility] Urobilinogen , Urine 1.0 0.2 - 1.0 mg/dL LAB URINALYSIS - AUTOMATED METHOD 07/04/2024 2:20 PM [facility] Bilirubin, Urine Negative Negative LAB URINALYSIS - AUTOMATED METHOD 07/04/2024 2:20 PM [facility] Blood, Urine Trace(A) Negative LAB URINALYSIS - AUTOMATED METHOD 07/04/2024 2:20 PM [facility] RBC, Urine 14.3(H) 0 - 4 /HPF LAB URINALYSIS - AUTOMATED METHOD 07/04/2024 2:20 PM [facility] WBC, Urine 295.7(H) 0 - 4 /HPF LAB URINALYSIS - AUTOMATED METHOD 07/04/2024 2:20 PM [facility] Squamous Epithelial, Urine 64(H) 0 - 60 /LPF LAB URINALYSIS - AUTOMATED METHOD 07/04/2024 2:20 PM [facility] Crystals, Urine LT TRIPLE PHOSPHATE /LPF LAB URINALYSIS - AUTOMATED METHOD 07/04/2024 2:20 PM [facility] Bacteria, Urine Many(A) Negative /HPF LAB URINALYSIS - AUTOMATED METHOD 07/04/2024 2:20 PM [facility] Hyaline Casts, Urine 4.2(H) 0 - 3 /LPF LAB URINALYSIS - AUTOMATED METHOD 07/04/2024 2:20 PM [facility] Urine Urine specimen obtained by clean catch procedure / Unknown 07/04/2024 8:00 AM EST 07/04/2024 1:35 PM EST Wale Somersa [employer] CONSULTANT LAB URINE ORDERABLES Final Re sult Performing Organization Address City/[facility]/ZIP Co de Phone Number [facility] [address] [place] [address], [place] [phone] * Fernandez urine culture tube (07/04/2024 8:00 AM EST) Extra Tube Hold for add-ons. 07/04/2024 3:02 PM EST [facility] Comment:Auto resulted. Urine Urine specimen obtained by clean catch procedure / Unknown 07/04/2024 8:00 AM EST 07/04/2024 1:[address] [place] [facility] Pimentel MGMT CONSULTANT LAB URINE ORDERABLES Final Re sult Performing Organization Address City/[facility]/ZIP Co de Phone Number [facility] [address] [place] [address], [place] [phone] * (ABNORMAL) Culture urine (07/04/2024 8:00 AM EST) Culture, Urine >100,000 CFU/mL Proteus mirabilis(A ) ANNETTA 07/06/2024 11:50 AM EST [facility] ([facility]) [facility] Comment: Edited result: Previously reported [...] Trimethoprim/Sulfamethoxazole ANNETTA >=320 ug/ml: Resistant Wale Pimentel MGMT CONSULTANT LAB MICROBIOLOGY - GENERAL OR DERABLES Final Result [facility] [address] [place] [address], [place] [phone] * Annual BMP Blood Test (06/04/2024) [facility] Annual BMP Blood Test Abstracted Historical Provider HEALTH MAINTENANCE Final Result * [facility] SCREENING DIGITAL (03/26/2024 3:43 PM EDT) Anatomical Region Laterality Modality Mammography 03/12/2024 11:1 8 AM EDT Narrative 03/26/2024 3:43 PM EDT [facility] Diagnostic Imaging Department [address] [place] [address] [id number] Patient: ??AYELUCILA Pichardo ?/Age/Sex: 1960 - Unit#: ??[id number] ? Location/Status: ??SPDIMAM/REG CLI ? Mnemonic/Ordering Site: ??DIGSC/SPMAM Ordering Physician: ??WALE PIMENTEL Elliot Screening Digital - 03/12/24 - 1133 Report Status:Signed EXAM: [facility] Screening Digital EXAM DATE AND TIME: 03/12/2024 11:34 AM HISTORY: ??Screening. Previous left breast biopsy, pathology benign. Mother had breast carcinoma at age 60. COMPARISON: ??No outside comparison imaging has been located on this patient. TECHNIQUE: Bilateral digital breast tomosynthesis was performed in the CC and MLO projections. Computer aided detection with Relify 3D 3.1 was employed. TISSUE DENSITY: b. [...] Mammogram performed at [facility] [address] [place] [address] Dictating Physician: ??BERTA MOCK MD Electronically Signed by: ??BERTA MOCK MD Dic Date/Time: ??03/26/24 154 Sign date/Time: ??03/26/24 154 Procedure Note Berta Mock MD - 04/22/2024 [facility] Diagnostic Imaging Department [address] [place] [address] Patient: LUCILA GRIFFITHS Marino Peterson/Age/Sex: 1960 - 63 - F Unit#: [id number] Location/Status: [facility] CLI Mnemonic/[facility]ing [facility]: [facility]ician: WALE PIMENTEL [facility] Screening Digital - 03/12/24 - 1133 Report Status:Signed EXAM: [facility] Screening Digital EXAM DATE AND TIME: 03/12/2024 11:34 AM HISTORY: Screening. Previous left breast biopsy, pathology benign. Motherhad breast carcinoma at age 60. COMPARISON: No outside comparison imaging has been located on thispatient. TECHNIQUE: Bilateral digital breast tomosynthesis was performed in the CCand MLO projections. Computer aided detection with Relify 3D 3.1was employed. TISSUE DENSITY: b. There [...] Mammogram performed at [facility] [place] [address] Dictating Physician: BERTA MOCK MD Electronically Signed by: BERTA MOCK MD Dic Date/Time: 03/26/24 1540 Sign date/Time: 03/26/24 1543 Wale Pimentel NP IMG BI PROCEDURES Final Resul t * (ABNORMAL) Hemoglobin A1c (03/17/2024) Hemoglobin A1C 6.7(A) <=5.7 % Blood Venous blood specimen / Unknown Historical Provider LAB BLOOD ORDERABLES Claire l Result * (ABNORMAL) Lipid panel (09/26/2023) LDL/HDL Ratio 2 <=5 Triglycerides 73 <=150 mg/dL Cholesterol 89 <=200 mg/dL HDL 45(A) >=50 mg/dL LDL Cholesterol 29 <=100 mg/dL Blood Venous blood specimen / Unknown Historical Provider LAB BLOOD ORDERABLES Claire l Result from Last 3 Months or Most Recently Relevant to Health Maintenance Insurance [employer] * Guarantor: PACE Account Type Relation to Patient Date of Phone Billing Address [place] [id number] [place] [address] HEALTH Advance Directives Documents on File Type Date Recorded 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 Care Teams Windows Desktop Support Relationship Specialty Start Date End Date Wale Pimentel NP [address] [address] PCP - General Family Medicine 05/02/24
--- OUTSIDE RECORDS SUMMARY | 2024-09-26 16:36 | XMS_ITS | Encounter Summary ---
Author Organization [facility] Address [address] [place] [address] Care Team Providers Care Makeup Instructor Name Role Phone Dede Pimentel [employer] Primary Care Provider Encounter Details Date Type Department Care Team (Late st Contact Info) Description 09/26/2024 10:30 AM EDT [facility] Home Visit [facility]lynn [facility] [address] [place] [address] Jhoana Grijalva Social History Tobacco Use Types Packs/Day Years [...] [facility]nn [facility] [place] [facility] [address] [place] [address] 09/29/2024 11:00 AM EDT Appointment [facility] CT Scan [address] [place] [address] 09/30/2024 10:30 AM EDT [facility] Home [facility] / [facility] Home Visit Kaitlynn [facility] [place] [facility] [address] [place] [address] Cheryle Pryor 10/01/2024 9:00 AM EDT [facility] Attend[facility] [place] [facility] [place] [facility] [address] [place] [address] 10/03/2024 10:30 AM EDT [facility] / [facility] Home [place] Kaitlynn NICO[facility] [place] [facility] [address] [place] [address] Jhoana Grijalva 10/06/2024 9:00 AM EDT [facility] Att[facility] [facility] [place] [facility] [address] [place] [address] 10/06/2024 11:00 AM EDT Appointment [facility] Ultrasound [address] [place] [address] 10/07/2024 10:30 AM EDT [facility] Home [facility] / [facility] Home [place] Kaitlynn NICO[facility] [place] [facility] [address] [place] [address] Cheryle Pryor 10/08/2024 9:00 AM EDT [facility] Attend[facility] [facility] [place] [facility] [address] [place] [address] 10/10/2024 10:30 AM EDT [facility] Home [facility] / P[facility] Home [place] Kaitlynn [facility] [place] [facility] [address] [place] [address] Jhoana Grijalva 10/13/2024 9:00 AM EDT [facility] [facility] [place] [facility] [address] [place] [address] 10/14/2024 10:30 AM EDT [facility] Home [facility] / [facility] Home [place] Kaitlynn [facility]ICO[facility] [place] [facility] [address] [place] [phone] Cheryle Pryor 10/15/2024 9:00 AM EDT [facility] Att[facility] [facility] [place] [facility] [address] [place] [address] 10/17/2024 10:30 AM EDT [facility] Home [facility] / [facility] Home [place] Kaitlynn [facility]ICO[facility] [place] [facility] [address] [place] [address] Jhoana Grijalva 10/20/2024 9:00 AM EDT [facility] [place] [facility] [address] [place] [address] 10/21/2024 10:30 AM EDT [facility] Home [facility] / P[facility] Home [place] Kaitlynn [facility] [place] [facility] [address] [place] [phone] Cheryle Pryor 10/22/2024 9:00 AM EDT [facility] Attend[facility] [facility] [place] [facility] [address] [place] [address] 10/24/2024 10:30 AM EDT [facility] Home [facility] / P[facility] Home Visit Kaitlynn NICO[facility] [place] [facility] [address] [place] [address] Jhoana Grijalva 10/27/2024 9:00 AM EDT [facility] Attend[facility] [facility] [place] [facility] [address] [place] [address] 10/28/2024 10:30 AM EDT [facility] Home [facility] / [facility] Home [place] Kaitlynn [facility]ICO[facility] [place] [facility] [address] [place] [phone] Cheryle Pryor 10/29/2024 9:00 AM EDT [facility] [facility] [place] [facility] [address] [place] [address] 10/31/2024 10:30 AM EDT [facility] Home [facility] / [facility] Home [place] Kaitlynn [facility] [place] [facility] [address] [place] [phone] Jhoana Grijalva 11/03/2024 9:00 AM EDT [facility] [place] [facility] [address] [place] [address] 11/04/2024 10:30 AM EDT [facility] Home [facility] / [facility] Home Visit Kaitlynn [facility]ICO[facility] [place] [facility] [address] [place] [phone] Cheryle Pryor 11/05/2024 9:00 AM EDT [facility] [place] [facility] [address] [place] [address] 11/07/2024 10:30 AM EDT [facility] Home [facility] / [facility] Home [place] Kaitlynn [facility]ICO[facility] [place] [facility] [address] [place] [phone] Jhoana Grijalva 11/10/2024 9:00 AM EDT [facility] [place] [facility] [address] [address] 11/10/2024 9:45 AM EDT Office Visit [facility] [address] [address] Gemini Simmons MD [address] [facility] [address] [place] [address] 11/11/2024 10:30 AM EDT [facility] Home [facility] / [facility] Home [place] Kaitlynn NICO[facility] [place] [facility] [address] [place] [address] Cheryle Pryor 11/12/2024 9:00 AM EDT [facility] [place] [facility] [address] [place] [address] 11/14/2024 10:30 AM EDT [facility] Home [facility] / [facility] [place] [facility] [address] [place] [address] Jhoana Grijalva 11/17/2024 9:00 AM EDT [facility] [place] [facility] [address] [place] [address] 11/18/2024 10:30 AM EDT [facility] Home [facility] / [facility] [place] [facility] [address] [place] [address] Cheryle Pryor 11/19/2024 9:00 AM EDT [facility] [place] [facility] [address] [place] [address] 11/21/2024 10:30 AM EDT [facility] Home [facility] / P[facility] Home [place] Kaitlynn [facility]ICO[facility] [place] [facility] [address] [place] [phone] Jhoana Grijalva 11/24/2024 9:00 AM EDT [facility] [place] [facility] [address] [place] [address] 11/26/2024 9:00 AM EDT [facility] [place] [facility] [address] [place] [phone] 12/01/2024 9:00 AM EDT [facility] [place] [facility] [address] [place] [address] 12/03/2024 9:00 AM EDT [facility] [place] [facility] [address] [place] [phone] 12/08/2024 9:00 AM EDT [facility] [place] [facility] [address] [place] [address] 12/10/2024 9:00 AM EDT [facility] [place] [facility] [address] [place] [address] 12/15/2024 9:00 AM EDT [facility] Attendance[facility] [place] [facility] [address] [place] [address] 12/17/2024 9:00 AM EDT [facility] Att[facility] [place] [facility] [address] [place] [address] 12/22/2024 9:00 AM EDT [facility] Att[facility] [place] [facility] [place] [facility] [address] [place] [address] 12/24/2024 9:00 AM EDT [facility] Att[facility] [place] [facility] [address] [place] [address] 12/29/2024 9:00 AM EDT [facility] Attend[facility] [place] [facility] [address] [place] [address] 12/31/2024 9:00 AM EDT [facility] [place] [facility] [address] [place] [address] 01/05/2025 9:00 AM EDT [facility] Att[facility] [place] [facility] [address] [place] [address] 01/07/2025 9:00 AM EDT [facility] [place] [facility] [address] [place] [address] 01/12/2025 9:00 AM EDT [facility] Att[facility] [place] [facility] [address] [place] [address] 01/14/2025 9:00 AM EDT [facility] [place] [facility] [place] [facility] [address] [place] [address] 01/19/2025 9:00 AM EDT [facility] Att[facility] [place] [facility] [address] [place] [address] 01/21/2025 9:00 AM EDT [facility] Att[facility] [place] [facility] [address] [place] [address] 01/26/2025 9:00 AM EDT [facility] Att[facility] [place] [facility] [address] [place] [address] 01/28/2025 9:00 AM EDT [facility] Att[facility] [facility] [place] [facility] [address] [place] [address] 02/02/2025 9:00 AM EDT [facility] Attend[facility] [facility] [place] [facility] [address] [place] [address] 02/04/2025 9:00 AM EDT [facility] [facility] [place] [facility] [address] [place] [address] 02/09/2025 9:00 AM EDT [facility] [facility] [place] [facility] [address] [place] [address] 02/11/2025 9:00 AM EDT [facility] [facility] [place] [facility] [address] [place] [address] 02/16/2025 9:00 AM EDT [facility] Attend[facility] [place] [facility] [address] [place] [address] 02/18/2025 9:00 AM EDT [facility] [place] [facility] [address] [place] [address] 02/23/2025 9:00 AM EDT [facility] [place] [facility] [address] [place] [address] 02/25/2025 9:00 AM EDT [facility] [place] [facility] [address] [place] [address] 03/02/2025 9:00 AM EDT [facility] [place] [facility] [address] [place] [address] 03/04/2025 9:00 AM EDT [facility] [place] [facility] [address] [place] [address] 03/09/2025 9:00 AM EDT [facility] [place] [facility] [address] [place] [address] 03/11/2025 9:00 AM EDT [facility] [place] [facility] [address] [place] [address] 03/16/2025 9:00 AM EDT [facility] Attend[facility] [place] [facility] [place] [facility] [address] [place] [address] 03/18/2025 9:00 AM EDT [facility] [place] [facility] [address] [place] [address] 03/23/2025 9:00 AM EDT [facility] [place] [facility] [address] [place] [address] 03/25/2025 9:00 AM EDT [facility] [place] [facility] [address] [place] [address] 03/30/2025 9:00 AM EDT [facility] [place] [facility] [address] [place] [address] 04/01/2025 9:00 AM EDT [facility] [place] [facility] [address] [place] [address] 04/06/2025 9:00 AM EDT [facility] [place] [facility] [address] [place] [address] 04/08/2025 9:00 AM EDT [facility] [place] [facility] [address] [place] [address] 04/13/2025 9:00 AM EDT [facility] Attend[facility] [place] [facility] [address] [place] [address] 04/15/2025 9:00 AM EDT [facility] [place] [place] [facility] [address] [place] [address] 04/20/2025 9:00 AM EDT [facility] [place] [place] [facility] [address] [place] [address] 04/22/2025 9:00 AM EDT [facility] [place] [place] [facility] [address] [place] [address] 04/27/2025 9:00 AM EST [facility] [place] [place] [facility] [address] [place] [address] 04/29/2025 9:00 AM EST [facility] [place] [facility] [address] [place] [address] 05/04/2025 9:00 AM EST [facility] [place] [facility] [address] [place] [address] 05/06/2025 9:00 AM EST [facility] [place] [facility] [address] [place] [address] 05/11/2025 9:00 AM EST [facility] [place] [facility] [address] [place] [address] 05/13/2025 9:00 AM EST [facility] [place] [facility] [address] [place] [address] 05/18/2025 9:00 AM EST [facility] [place] [facility] [address] [place] [address] 05/20/2025 9:00 AM EST [facility] [place] [facility] [address] [place] [address] 05/25/2025 9:00 AM EST [facility] [place] [facility] [address] [place] [address] 05/27/2025 9:00 AM EST [facility] [place] [facility] [address] [place] [address] 06/01/2025 9:00 AM EST [facility] [place] [facility] [address] [place] [address] 06/03/2025 9:00 AM EST [facility] [place] [facility] [address] [place] [address] 06/08/2025 9:00 AM EST [facility] [place] [facility] [address] [place] [address] 06/10/2025 9:00 AM EST [facility] [place] [facility] [address] [place] [address] 06/15/2025 9:00 AM EST [facility] [place] [facility] [address] [place] [address] 06/17/2025 9:00 AM EST [facility] [place] [facility] [address] [place] [address] 06/22/2025 9:00 AM EST [facility] [place] [facility] [address] [place] [address] 06/24/2025 9:00 AM EST [facility] [place] [facility] [address] [place] [address] 06/29/2025 9:00 AM EST [facility] [place] [facility] [address] [place] [address] 07/01/2025 9:00 AM EST [facility] [place] [facility] [address] [place] [address] 07/06/2025 9:00 AM EST [facility] [place] [facility] [address] [place] [address] 2025 9:00 AM EST [facility] [place] [facility] [address] [place] [address] 07/13/2025 9:00 AM EST [facility] [place] [facility] [address] [place] [address] 07/15/2025 9:00 AM EST [facility] [place] [facility] [address] [place] [address] 07/20/2025 9:00 AM EST [facility] [place] [facility] [address] [place] [address] 07/22/2025 9:00 AM EST [facility] [place] [facility] [address] [place] [address] 07/27/2025 9:00 AM EST [facility] [place] [facility] [address] [place] [address] 07/29/2025 9:00 AM EST [facility] [place] [facility] [address] [place] [address] 08/03/2025 9:00 AM EST [facility] [place] [facility] [address] [place] [phone] documented as of this encounter Visit Diagnoses Not on filedocumented in this encounter Care Teams Makeup Instructor Relationship Specialty Start Date End Date Dede Pimentel NP [address] [address] PCP - General Family Medicine 05/02/24 documented as of this encounter
--- OUTSIDE RECORDS SUMMARY | 2024-09-26 16:36 | XMS_ITS | Encounter Summary ---
Author Organization [facility] Address [address] [place] [address] Care Team Providers Care Director Summer Sessions Name Role Phone Dede Pimentel WHOLESALE DIAMOND BROKER Primary Care Provider [phone] Reason for Visit * Reason Comments Semi-Annual Assessment Encounter Details Date Type Department Care Team (Latest Contact Info) Description 09/26/2024 12:30 PM EDT PACE Assessment [facility] [address] [place] [id number] Naila Kinney RN Adult general medical examination (Primary Dx) Social History Tobacco Use Types [...] ??F) 09/26/2024 12:20 PM EDT Respiratory Rate - - Oxygen Saturation 92% 09/26/2024 12:48 PM EDT Inhaled Oxygen Concentration - - Weight 108 kg (238 lb 9.6 oz) 09/26/2024 12:20 P M EDT Height - - Body Mass Index 39.71 09/03/2024 1:00 PM EDT documented in this encounter Progress Notes * Naila Kinney RN - 09/26/2024 12:30 PM EDT Par seen in the clinic with provider, semi-annual assessment completed documented in this encounter Plan of Treatment Upcoming Encounters Date Type Department Care Team (Late st Contact Info) Description 09/29/2024 9:00 AM EDT PACE Attendance/Day Center [facility] [place] [facility] [address] [place] [address] 09/29/2024 11:00 AM EDT Appointment [facility] Scan [address] [place] [address] 09/30/2024 10:30 AM EDT PACE Home Care / P[facility] Home Visit [facility] [address] [place] [address] Cheryle Pryor 10/01/2024 9:00 AM EDT PACE Attendance/Day [facility] [place] [facility] [address] [place] [address] 10/03/2024 10:30 AM EDT PACE Home Care / PACE Home Visit [facility] [place] [facility] [address] [place] [address] Jhoana Grijalva 10/06/2024 9:00 AM EDT PACE Attendance/[place] [employer] [place] [facility] [address] [place] [address] 10/06/2024 11:00 AM EDT Appointment [facility] [address] [place] [address] 10/07/2024 10:30 AM EDT PACE Home Care / [facility] [place] [facility] [address] [place] [address] Cheryle Pryor 10/08/2024 9:00 AM EDT [place] Att[facility]ance[facility] [facility] [place] [facility] [address] [place] [address] 10/10/2024 10:30 AM EDT PACE Home Care / [facility] [place] [facility] [address] [place] [address] Jhoana Grijalva 10/13/2024 9:00 AM EDT [facility] [facility] [place] [facility] [address] [place] [address] 10/14/2024 10:30 AM EDT PACE Home Care / [facility] [place] [facility] [address] [place] [address] Cheryle Pryor 10/15/2024 9:00 AM EDT [facility] [facility] [facility] [place] [facility] [address] [place] [address] 10/17/2024 10:30 AM EDT PACE Home Care / [facility] [place] [facility] [address] [place] [address] Jhoana Grijalva 10/20/2024 9:00 AM EDT [place] Att[place] [facility] [place] [facility] [address] [place] [address] 10/21/2024 10:30 AM EDT PACE Home Care / [facility] [place] [facility] [address] [place] [address] Cheryle Pryor 10/22/2024 9:00 AM EDT [facility] [place] [facility] [address] [place] [address] 10/24/2024 10:30 AM EDT PACE Home Care / PACE Home Visit [facility] [place] [facility] [address] [place] [address] Jhoana Grijalva 10/27/2024 9:00 AM EDT P[place] Attendance[facility] [facility] [place] [facility] [address] [place] [address] 10/28/2024 10:30 AM EDT PACE Home Care / PACE Home Visit [facility] [place] [facility] [address] [place] [address] Cheryle Pryor 10/29/2024 9:00 AM EDT PACE Attendance[facility] [facility] [place] [facility] [address] [place] [address] 10/31/2024 10:30 AM EDT PACE Home Care / P[facility] Home [facility] [place] [facility] [address] [place] [address] Jhoana Grijalva 11/03/2024 9:00 AM EDT P[place] Attendance[facility] [facility] [place] [facility] [address] [place] [address] 11/04/2024 10:30 AM EDT PACE Home Care / PACE Home Visit [facility] [place] [facility] [address] [place] [address] Cheryle Pryor 11/05/2024 9:00 AM EDT [place] Attendance[facility] [facility] [place] [facility] [address] [place] [address] 11/07/2024 10:30 AM EDT PACE Home Care / PACE Home Visit [facility] [place] [facility] [address] [place] [address] Jhoana Grijalva 11/10/2024 9:00 AM EDT [facility] Attendance[facility] [facility] [place] [facility] [address] [place] [address] 11/10/2024 9:45 AM EDT Office Visit [facility] [address] [place] [address] Gemini Simmons MD [address] [facility] [address] [place] [address] 11/11/2024 10:30 AM EDT PACE Home Care / PACE Home Visit [facility] [place] [facility] [address] [place] [address] Cheryle Pryor 11/12/2024 9:00 AM EDT [place] [facility] [place] [facility] [address] [place] [address] 11/14/2024 10:30 AM EDT PACE Home Care / [facility] [place] [facility] [address] [place] [address] Jhoana Grijalva 11/17/2024 9:00 AM EDT [place] Att[facility] [facility] [place] [facility] [address] [place] [address] 11/18/2024 10:30 AM EDT PACE Home Care / [facility] [place] [facility] [address] [place] [address] Cheryle Pryor 11/19/2024 9:00 AM EDT [facility] Att[facility] [place] [facility] [address] [place] [address] 11/21/2024 10:30 AM EDT PACE Home Care / [facility] [place] [facility] [address] [place] [address] Jhoana Grijalva 11/24/2024 9:00 AM EDT [facility] [place] [facility] [address] [place] [address] 11/26/2024 9:00 AM EDT [facility] Att[facility] [place] [facility] [address] [place] [address] 12/01/2024 9:00 AM EDT [facility] Att[facility] [facility] [place] [facility] [address] [place] [address] 12/03/2024 9:00 AM EDT [facility] Att[facility] [facility] [place] [facility] [address] [place] [address] 12/08/2024 9:00 AM EDT [place] Att[facility] [facility] [place] [facility] [address] [place] [address] 12/10/2024 9:00 AM EDT [facility] Att[facility] [facility] [place] [facility] [facility] [address] [place] [address] 12/15/2024 9:00 AM EDT [facility] Att[facility] [place] [facility] [address] [place] [address] 12/17/2024 9:00 AM EDT [facility] Att[facility] [place] [facility] [address] [place] [address] 12/22/2024 9:00 AM EDT [facility] Att[facility] [place] [facility] [address] [place] [address] 12/24/2024 9:00 AM EDT [facility] Att[facility] [facility] [place] [facility] [address] [place] [address] 12/29/2024 9:00 AM EDT [facility] Att[facility] [place] [facility] [address] [place] [address] 12/31/2024 9:00 AM EDT [facility] Att[facility] [place] [facility] [address] [place] [address] 01/05/2025 9:00 AM EDT [facility] Attendance[facility] [place] [facility] [place] [facility] [address] [place] [address] 01/07/2025 9:00 AM EDT [facility] Attendance[facility] [place] [facility] [place] [facility] [address] [place] [address] 01/12/2025 9:00 AM EDT [facility] Attendance[facility] [place] [facility] [address] [place] [address] 01/14/2025 9:00 AM EDT P[facility] Attendance[facility] [place] [facility] [address] [place] [address] 01/19/2025 9:00 AM EDT P[facility] Attendance[facility] [place] [facility] [address] [place] [address] 01/21/2025 9:00 AM EDT P[place] Attendance[facility] [facility] [place] [facility] [address] [place] [address] 01/26/2025 9:00 AM EDT P[facility] Attendance[facility] [place] [facility] [address] [place] [address] 01/28/2025 9:00 AM EDT P[facility] Attendance[facility] [place] [facility] [address] [place] [address] 02/02/2025 9:00 AM EDT [facility] [place] [facility] [address] [place] [address] 02/04/2025 9:00 AM EDT [facility] Att[facility] [place] [facility] [address] [place] [address] 02/09/2025 9:00 AM EDT [facility] Attend[facility] [place] [facility] [address] [place] [address] 02/11/2025 9:00 AM EDT P[facility] Attendance[facility] [place] [facility] [address] [place] [address] 02/16/2025 9:00 AM EDT P[facility] Attendance[facility] [place] [facility] [address] [place] [address] 02/18/2025 9:00 AM EDT P[facility] Attendance[facility] [place] [facility] [address] [place] [address] 02/23/2025 9:00 AM EDT P[facility] Attendance[facility] [place] [facility] [address] [place] [address] 02/25/2025 9:00 AM EDT [facility] Attend[facility] [place] [facility] [address] [place] [address] 03/02/2025 9:00 AM EDT P[facility] Attend[facility] [facility] [place] [facility] [address] [place] [address] 03/04/2025 9:00 AM EDT P[place] Attendance[facility] [facility] [place] [facility] [address] [place] [address] 03/09/2025 9:00 AM EDT P[facility] Attendance[facility] [place] [facility] [address] [place] [address] 03/11/2025 9:00 AM EDT [facility] Att[facility] [place] [facility] [address] [place] [address] 03/16/2025 9:00 AM EDT [facility] Att[facility] [place] [facility] [address] [place] [address] 03/18/2025 9:00 AM EDT [facility] Att[facility] [place] [facility] [address] [place] [address] 03/23/2025 9:00 AM EDT P[facility] Attendance[facility] [place] [facility] [address] [place] [address] 03/25/2025 9:00 AM EDT [facility] Attend[facility] [place] [facility] [address] [place] [address] 03/30/2025 9:00 AM EDT [facility] Att[facility] [place] [facility] [address] [place] [address] 04/01/2025 9:00 AM EDT P[facility] Attendance[facility] [place] [facility] [address] [place] [address] 04/06/2025 9:00 AM EDT P[facility] Attendance[facility] [place] [facility] [address] [place] [address] 04/08/2025 9:00 AM EDT P[facility] Attendance[facility] [place] [facility] [address] [place] [address] 04/13/2025 9:00 AM EDT P[facility] Attendance[facility] [place] [facility] [address] [place] [address] 04/15/2025 9:00 AM EDT [facility] Att[facility] [place] [facility] [address] [place] [address] 04/20/2025 9:00 AM EDT [facility] Attend[facility] [place] [facility] [address] [place] [address] 04/22/2025 9:00 AM EDT [facility] Att[facility] [place] [facility] [address] [place] [address] 04/27/2025 9:00 AM EST [facility] Attend[facility] [place] [facility] [address] [place] [address] 04/29/2025 9:00 AM EST [facility] Att[facility] [place] [facility] [address] [place] [address] 05/04/2025 9:00 AM EST [facility] Att[facility] [place] [facility] [address] [place] [address] 05/06/2025 9:00 AM EST [facility] Att[facility] [place] [facility] [address] [place] [address] 05/11/2025 9:00 AM EST [facility] Att[facility] [place] [facility] [address] [place] [address] 05/13/2025 9:00 AM EST P[facility] Attendance[facility] [place] [facility] [address] [place] [address] 05/18/2025 9:00 AM EST P[facility] Attendance[facility] [place] [facility] [address] [place] [address] 05/20/2025 9:00 AM EST [facility] [place] [facility] [address] [place] [address] 05/25/2025 9:00 AM EST [facility] [place] [facility] [address] [place] [address] 05/27/2025 9:00 AM EST [facility] [place] [facility] [address] [place] [address] 06/01/2025 9:00 AM EST [facility] Att[facility] [place] [facility] [address] [place] [address] 06/03/2025 9:00 AM EST [facility] [place] [facility] [address] [place] [address] 06/08/2025 9:00 AM EST P[facility] Attend[facility] [place] [facility] [address] [place] [address] 06/10/2025 9:00 AM EST P[facility] Attend[facility] [place] [facility] [address] [place] [address] 06/15/2025 9:00 AM EST P[facility] Attend[facility] [place] [facility] [address] [place] [address] 06/17/2025 9:00 AM EST P[facility] Attend[facility] [place] [facility] [address] [place] [address] 06/22/2025 9:00 AM EST P[facility] Att[facility] [place] [facility] [address] [place] [address] 06/24/2025 9:00 AM EST P[facility] Att[facility] [place] [facility] [address] [place] [address] 06/29/2025 9:00 AM EST [facility] Att[facility] [place] [facility] [address] [place] [address] 07/01/2025 9:00 AM EST [facility] [place] [facility] [address] [place] [address] 07/06/2025 9:00 AM EST P[facility] Attend[facility] [place] [facility] [address] [place] [address] 2025 9:00 AM EST P[facility] Attend[facility] [place] [facility] [address] [place] [address] 07/13/2025 9:00 AM EST P[facility] Attendance[facility] [place] [facility] [address] [place] [address] 07/15/2025 9:00 AM EST P[place] Attend[place] [facility] [place] [facility] [facility] [address] [address] 07/20/2025 9:00 AM EST PACE Attendance[facility] [facility] [place] [facility] [address] [place] [address] 07/22/2025 9:00 AM EST PACE Attendance/Day Center [facility] Day [address] [address] 07/27/2025 9:00 AM EST PACE Attendance/Day Center [facility] [place] [facility] [address] [address] 07/29/2025 9:00 AM EST PACE Attendance/Day Center [facility] [address] [address] 08/03/2025 9:00 AM EST PACE Attendance/Day Center [facility] [address] [address] documented as of this encounter Visit Diagnoses Diagnosis Adult general medical examination- Primary Unspecified general medical examination documented in this encounter Care Teams Director Summer Sessions Relationship Specialty Start Date End Date Dede Pimentel NP [address] [place] [address] PCP - General Family Medicine 05/02/24 documented as of this encounter
--- OUTSIDE RECORDS SUMMARY | 2024-09-26 16:36 | XMS_ITS | Encounter Summary ---
Author Organization [facility] Address [address] [place] [address] Care Team Providers Care Certified Medical Assistant Name Role Phone Eleazar Gleason MD Primary Care Provider [phone]- [phone] Encounter Details Date Type Department Care Team (Late st Contact Info) Description 04/16/2024 11:39 AM EDT Hospital Encounter TH HISTORIC ENCOUNTERS EASTERN CONVERSION ONLY Wale Pimentel, TAYA [address] [facility] [address] [place] [address] Social History Tobacco Use Types Packs/Day Years [...] 09/29/2024 9:00 AM EDT [facility] P[facility] Day Center [address] [place] [address] 09/29/2024 11:00 AM EDT Appointment [facility] CT Scan [address] [place] [address] 09/30/2024 10:30 AM EDT PACE Home Care / PACE Home Visit [facility] [address] [place] [address] Cheryle Pryor 10/01/2024 9:00 AM EDT PACE Attendance/[place] [facility] [place] [address] [place] [address] 10/03/2024 10:30 AM EDT PACE Home Care / PACE Home Visit [facility] [place] [facility] [address] [place] [address] Jhoana Girjalva 10/06/2024 9:00 AM EDT [facility] [place] [facility] [address] [place] [address] 10/06/2024 11:00 AM EDT Appointment [facility] Ultrasound [address] [place] [address] 10/07/2024 10:30 AM EDT PACE Home Care / [facility] [address] [place] [address] Cheryle Pryor 10/08/2024 9:00 AM EDT PACE Attendance/[place] [facility] [place] [address] [place] [address] 10/10/2024 10:30 AM EDT PACE Home Care / PACE Home Visit [facility] [place] [facility] [address] [place] [address] Jhoana Grijalva 10/13/2024 9:00 AM EDT PACE Attendance/[place] [facility] [place] [address] [place] [address] 10/14/2024 10:30 AM EDT PACE Home Care / [facility] [place] [facility] [address] [place] [address] Cheryle Pryor 10/15/2024 9:00 AM EDT [facility] [facility] [place] [facility] [address] [place] [address] 10/17/2024 10:30 AM EDT PACE Home Care / PACE Home Visit [facility] [place] [facility] [address] [place] [phone] Jhoana Grijalva 10/20/2024 9:00 AM EDT [facility] [place] [facility] [address] [place] [address] 10/21/2024 10:30 AM EDT PACE Home Care / PACE Home Visit [facility] [place] [facility] [address] [place] [phone] Cheryle Pryor 10/22/2024 9:00 AM EDT PACE Attendance/[place] [facility] [place] [facility] [place] [facility] [address] [place] [phone] 10/24/2024 10:30 AM EDT PACE Home Care / PACE Home Visit [facility] [place] [facility] [address] [place] [phone] Jhoana Grijalva 10/27/2024 9:00 AM EDT [facility] Att[facility] [place] [facility] [address] [place] [address] 10/28/2024 10:30 AM EDT PACE Home Care / [facility] [place] [facility] [address] [place] [phone] Cheryle Pryor 10/29/2024 9:00 AM EDT [facility] Att[facility] [place] [facility] [address] [place] [address] 10/31/2024 10:30 AM EDT PACE Home Care / PACE Home Visit [facility] [place] [facility] [address] [place] [phone] Jhoana Grijalva 11/03/2024 9:00 AM EDT PACE Attendance/[place] [facility] [place] [address] [place] [phone] 11/04/2024 10:30 AM EDT PACE Home Care / PACE Home Visit [facility] [place] [facility] [address] [place] [phone] Cheryle Pryor 11/05/2024 9:00 AM EDT PACE Attendance/Day [place] [facility] [place] Day [address] [address] 11/07/2024 10:30 AM EDT PACE Home Care / PACE Home Visit [facility] [place] [facility] [address] [place] [phone] Jhoana Grijalva 11/10/2024 9:00 AM EDT [facility] [place] [place] [address] [address] 11/10/2024 9:45 AM EDT Office Visit [facility] [address] [address] Gemini Simmons MD [address] [facility] [address] [facility] [address] [place] [address] 11/11/2024 10:30 AM EDT PACE Home Care / PACE Home Visit [facility] [place] [facility] [address] [place] [phone] Cheryle Pryor 11/12/2024 9:00 AM EDT P[place] Attendance/[place] [facility] [place] [address] [place] [phone] 11/14/2024 10:30 AM EDT PACE Home Care / [facility] [place] [facility] [address] [place] [phone] Jhoana Grijalva 11/17/2024 9:00 AM EDT [facility] [facility] [place] [facility] [facility] [address] [place] [phone] 11/18/2024 10:30 AM EDT PACE Home Care / [facility] [place] [facility] [address] [place] [phone] Cheryle Pryor 11/19/2024 9:00 AM EDT [facility] [facility] [facility] [place] [address] [place] [phone] 11/21/2024 10:30 AM EDT PACE Home Care / [facility] [place] [facility] [address] [place] [phone] Jhoana Grijalva 11/24/2024 9:00 AM EDT [facility] Att[facility] [place] [address] [place] [phone] 11/26/2024 9:00 AM EDT [facility] Attendance[facility] [facility] [place] [facility] [address] [place] [phone] 12/01/2024 9:00 AM EDT [place] [facility] [facility] [place] [facility] [address] [place] [phone] 12/03/2024 9:00 AM EDT [facility] [facility] [place] [facility] [address] [place] [phone] 12/08/2024 9:00 AM EDT [facility] [place] [facility] [address] [place] [phone] 12/10/2024 9:00 AM EDT [facility] [place] [facility] [facility] [address] [place] [address] 12/15/2024 9:00 AM EDT [facility] Attend[facility] [place] [facility] [facility] [address] [place] [address] 12/17/2024 9:00 AM EDT PACE Attendance/[place] [facility] [place] [address] [place] [address] 12/22/2024 9:00 AM EDT [facility] [place] [facility] [facility] [address] [place] [address] 12/24/2024 9:00 AM EDT P[facility] Attendance[facility] [facility] [place] [facility] [address] [place] [address] 12/29/2024 9:00 AM EDT P[facility] Attendance[facility] [place] [facility] [facility] [address] [place] [address] 12/31/2024 9:00 AM EDT [facility] [place] [facility] [address] [place] [phone] 01/05/2025 9:00 AM EDT PACE Attendance/[place] [facility] [place] [facility] [address] [place] [address] 01/07/2025 9:00 AM EDT [facility] Att[facility] [place] [facility] [facility] [address] [place] [address] 01/12/2025 9:00 AM EDT [facility] Att[facility] [place] [facility] [address] [place] [address] 01/14/2025 9:00 AM EDT [facility] Att[facility] [place] [facility] [facility] [address] [place] [address] 01/19/2025 9:00 AM EDT [facility] Att[facility] [place] [facility] [facility] [address] [place] [address] 01/21/2025 9:00 AM EDT P[place] Attendance/[place] [facility] [place] [address] [place] [address] 01/26/2025 9:00 AM EDT P[place] Attendance/[place] [facility] [place] [facility] [facility] [address] [place] [address] 01/28/2025 9:00 AM EDT PACE Attendance/[place] [facility] [place] [facility] [address] [place] [address] 02/02/2025 9:00 AM EDT P[place] Attendance/[place] [facility] [place] [facility] [address] [place] [address] 02/04/2025 9:00 AM EDT P[place] Attendance/[place] [facility] [place] [facility] [address] [place] [address] 02/09/2025 9:00 AM EDT P[place] Attendance[facility] [facility] [place] [facility] [address] [place] [phone] 02/11/2025 9:00 AM EDT P[place] Attendance[facility] [facility] [place] [facility] [address] [place] [address] 02/16/2025 9:00 AM EDT P[place] Attendance[facility] [facility] [place] [facility] [facility] [address] [place] [address] 02/18/2025 9:00 AM EDT [facility] Att[facility] [place] [facility] [facility] [address] [place] [address] 02/23/2025 9:00 AM EDT [facility] Att[facility] [place] [facility] [facility] [address] [place] [address] 02/25/2025 9:00 AM EDT [facility] Att[facility] [place] [facility] [facility] [address] [place] [address] 03/02/2025 9:00 AM EDT P[place] Attendance[facility] [facility] [place] [facility] [address] [place] [address] 03/04/2025 9:00 AM EDT P[place] Attendance[facility] [facility] [place] [facility] [address] [place] [address] 03/09/2025 9:00 AM EDT P[place] Attendance/[place] [facility] [place] [facility] [place] [facility] [address] [place] [address] 03/11/2025 9:00 AM EDT P[place] Attendance[facility] [facility] [place] [facility] [address] [place] [address] 03/16/2025 9:00 AM EDT P[place] Attendance[facility] [facility] [place] [facility] [address] [place] [address] 03/18/2025 9:00 AM EDT P[place] Attendance[facility] [place] [facility] [address] [place] [address] 03/23/2025 9:00 AM EDT P[place] Attendance[facility] [place] [facility] [place] [facility] [address] [place] [address] 03/25/2025 9:00 AM EDT P[place] Attendance[facility] [place] [facility] [address] [place] [address] 03/30/2025 9:00 AM EDT P[place] Attendance[facility] [place] [facility] [address] [place] [address] 04/01/2025 9:00 AM EDT P[place] Attendance[facility] [facility] [place] [facility] [place] [facility] [address] [place] [address] 04/06/2025 9:00 AM EDT P[place] Attendance[place] [facility] [place] [facility] [address] [place] [address] 04/08/2025 9:00 AM EDT [facility] Att[facility] [place] [facility] [address] [place] [address] 04/13/2025 9:00 AM EDT [facility] [facility] [place] [facility] [address] [place] [phone] 04/15/2025 9:00 AM EDT [facility] Att[facility] [place] [facility] [facility] [address] [place] [address] 04/20/2025 9:00 AM EDT [facility] Att[facility] [place] [facility] [facility] [address] [place] [address] 04/22/2025 9:00 AM EDT [facility] [place] [facility] [address] [place] [phone] 04/27/2025 9:00 AM EST [facility] [place] [facility] [address] [place] [address] 04/29/2025 9:00 AM EST [facility] [place] [facility] [address] [place] [address] 05/04/2025 9:00 AM EST [facility] [place] [facility] [address] [place] [address] 05/06/2025 9:00 AM EST [facility] [place] [facility] [address] [place] [address] 05/11/2025 9:00 AM EST [facility] [place] [facility] [address] [place] [address] 05/13/2025 9:00 AM EST [facility] [place] [facility] [place] [facility] [address] [place] [address] 05/18/2025 9:00 AM EST [facility] [place] [facility] [address] [place] [address] 05/20/2025 9:00 AM EST [facility] [place] [facility] [facility] [address] [place] [address] 05/25/2025 9:00 AM EST [facility] [place] [facility] [facility] [address] [place] [address] 05/27/2025 9:00 AM EST [facility] [place] [facility] [address] [place] [address] 06/01/2025 9:00 AM EST [facility] [place] [facility] [address] [place] [address] 06/03/2025 9:00 AM EST [facility] [place] [facility] [address] [place] [address] 06/08/2025 9:00 AM EST [facility] [place] [facility] [address] [place] [address] 06/10/2025 9:00 AM EST [facility] [place] [facility] [address] [place] [address] 06/15/2025 9:00 AM EST [facility] [place] [facility] [address] [place] [address] 06/17/2025 9:00 AM EST [facility] [place] [facility] [address] [place] [address] 06/22/2025 9:00 AM EST [facility] [place] [facility] [address] [place] [address] 06/24/2025 9:00 AM EST [facility] [place] [facility] [address] [place] [address] 06/29/2025 9:00 AM EST [facility] Attend[facility] [place] [facility] [address] [place] [address] 07/01/2025 9:00 AM EST [facility] [place] [facility] [address] [place] [address] 07/06/2025 9:00 AM EST [facility] [place] [facility] [address] [place] [phone] 2025 9:00 AM EST [facility] [place] [facility] [address] [place] [address] 07/13/2025 9:00 AM EST [facility] [place] [facility] [address] [place] [phone] 07/15/2025 9:00 AM EST [facility] [place] [facility] [address] [place] [address] 07/20/2025 9:00 AM EST [facility] [place] [facility] [address] [place] [address] 07/22/2025 9:00 AM EST [facility] [place] [facility] [address] [place] [address] 07/27/2025 9:00 AM EST [facility] [place] [facility] [address] [place] [address] 07/29/2025 9:00 AM EST [facility] Att[facility] [facility] [place] [facility] [address] [place] [address] 08/03/2025 9:00 AM EST [facility] [facility] [place] [facility] [address] [place] [address] documented as of this encounter [...] PM EDT Narrative 04/16/2024 3:54 PM EDT [facility] Diagnostic Imaging Department [address] [place] [address] Patient: ??LUCILA GRIFFITHS ?/Age/Sex: 1960 - 63 - F Unit#: ??[id number] ? Location/Status: ??SPDIGEN/REG CLI ? 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 Location/Status: ??SPDIGEN/REG CLI ? Mnemonic/Ordering Site: ??[facility] Ordering Physician: ??WALE PIMENTEL CR Shoulder LT Min 2 View - 04/16/24 - 1230 Report Status:Signed History: Left shoulder pain since [...] No evidence of fracture. 2. Calcific tendinitis. [id number] Dictating Physician: ??BERTA MOCK MD Electronically Signed by: ??BERTA MOCK MD Dic Date/Time: ??04/16/24 1548 Sign date/Time: ??04/16/24 1549 Procedure Note Berta Mock MD - 04/22/2024 [facility] Diagnostic Imaging Department [address] [place], [place] [id number] Patient: LUCILA GRIFFITHS /Age/Sex: 1960 - 63 - F Unit#: [id number] Location/Status: SPDIGEN/REG CLI Mnemonic/Ordering Site: [facility] Ordering [...] No evidence of fracture. 2. Calcific tendinitis. [id number] Dictating Physician: BERTA MOCK MD Electronically Signed by: BERTA MOCK MD Dic Date/Time: 04/16/241547 Sign date/Time: 04/16/241548 Wale Pimentel DIRECTOR OF HOME [employer]CONOM[employer] IMG XR PROCEDURES Final Resul t documented in this encounter Visit Diagnoses Not on filedocumented in this encounter Care Teams Certified Medical Assistant Relationship Specialty Start Date End Date Eleazar Gleason MD [address] [address] PCP - General 04/11/24 05/01/24 documented as of this encounter
--- OUTSIDE RECORDS SUMMARY | 2024-09-26 16:36 | XMS_ITS | Clinical Summary ---
Author Organization [facility] Address [address] [place] [address] Care Team Providers Care Administrative Job Titles Name Role Phone Eleazar Gleason MD Primary Care Provider [phone]- [phone] Allergies Active Allergy Reactions Criticality Noted Date [...] age to complete this topic Care Teams Administrative Job Titles Relationship Specialty Start Date End Date Eleazar Gleason MD PCP - General Rheumatology 04/11/24
--- OUTSIDE RECORDS SUMMARY | 2024-09-26 16:36 | XMS_ITS | Encounter Summary ---
Author Organization [facility] Address [address] [place] [address] Care Team Providers Care Winder Contort Operator Name Role Phone Eleazar Gleason MD Primary Care Provider [phone] Encounter Details Date Type Department Care Team [...] by Dr. Gleason. She was transported by [employer] and arrives three hours early for herappointment. [...] up with Dr. Gleason as scheduled at [facility]. She left the unit stable, ambulatory using rolling walker accompanied by the [facility] staff who has returned to pick patient up. documented in this encounter Plan of Treatment Upcoming Encounters Date Type Department Care Team (Late st Contact Info) Description 09/29/2024 9:00 AM EDT PACE Attendance/Day Center [facility] Day Center [address] [place] [address] 09/29/2024 11:00 AM EDT Appointment [facility] CT Scan [address] [place] [address] 09/30/2024 10:30 AM EDT PACE Home Care / [facility] [address] [place] [address] Cheryle Pryor 10/01/2024 9:00 AM EDT PACE Attendance/Day Center [facility] Day Center [address] [place] [address] 10/03/2024 10:30 AM EDT PACE Home Care / PACE Home Visit [facility] In [facility] [address] [place] [phone] Jhoana Grijalva 10/06/2024 9:00 AM EDT PACE Attendance/[place] [facility] [place] [facility] [facility] [address] [place] [address] 10/06/2024 11:00 AM EDT Appointment [facility] Ultrasound [address] [place], [place] [address] [place] [address] 10/07/2024 10:30 AM EDT PACE Home Care / P[place] [facility] [place] [facility] [place] [facility] [address] [place] [phone] Cheryle Pryor 10/08/2024 9:00 AM EDT PACE Attendance/[place] [facility] [place] [address] [place] [phone] 10/10/2024 10:30 AM EDT PACE Home Care / PACE Home [place] [facility] [place] [facility] [address] [place] [phone] Jhoana Grijalva 10/13/2024 9:00 AM EDT [facility] [place] [facility] [address] [place] [phone] 10/14/2024 10:30 AM EDT PACE Home Care / P[place] Home [place] [facility] [place] [facility] [address] [place] [address] Cheryle Pryor 10/15/2024 9:00 AM EDT PACE Attendance/[place] [facility] [place] [facility] [address] [place] [address] 10/17/2024 10:30 AM EDT PACE Home Care / P[place] Home [place] [facility] [place] [facility] [address] [place] [address] Jhoana Grijalva 10/20/2024 9:00 AM EDT PACE Att[facility]ance[facility] [facility] [place] [facility] [address] [place] [address] 10/21/2024 10:30 AM EDT PACE Home Care / [facility] [place] [facility] [place] [facility] [address] [place] [address] Cheryle Pryor 10/22/2024 9:00 AM EDT PACE Attendance/[place] [facility] [place] [facility] [address] [place] [address] 10/24/2024 10:30 AM EDT PACE Home Care / [facility] [place] [facility] [place] [facility] [address] [place] [phone] Jhoana Grijalva 10/27/2024 9:00 AM EDT PACE Attendance[facility] [facility] [place] [facility] [address] [place] [address] 10/28/2024 10:30 AM EDT PACE Home Care / [facility] [place] [facility] [place] [facility] [address] [place] [phone] Cheryle Pryor 10/29/2024 9:00 AM EDT PACE Attendance[facility] [facility] [place] [facility] [address] [place] [phone] 10/31/2024 10:30 AM EDT PACE Home Care / P[place] Home [place] [facility] [place] [facility] [address] [place] [phone] Jhoana Grijalva 11/03/2024 9:00 AM EDT PACE Att[place]ance[facility] [facility] [place] [facility] [address] [place] [phone] 11/04/2024 10:30 AM EDT PACE Home Care / [place] [facility] [place] [facility] [place] [facility] [address] [place] [phone] Cheryle Pryor 11/05/2024 9:00 AM EDT P[place] Att[place]ance[facility] [facility] [place] [facility] [address] [place] [phone] 11/07/2024 10:30 AM EDT PACE Home Care / PACE Home [place] [facility] [place] [facility] [address] [place] [phone] Jhoana Grijalva 11/10/2024 9:00 AM EDT PACE Attendance/[place] [facility] [place] [address] [place] [phone] 11/10/2024 9:45 AM EDT Office Visit [facility] [address] [place] [address] Gemini Simmons MD [address] [facility] [address] [place] [address] 11/11/2024 10:30 AM EDT PACE Home Care / PACE Home [place] [facility] [place] [facility] [address] [place] [phone] Cheryle Pryor 11/12/2024 9:00 AM EDT PACE Attendance[place] [facility] [place] [facility] [address] [place] [phone] 11/14/2024 10:30 AM EDT PACE Home Care / P[place] Home [place] [facility] [place] [facility] [address] [place] [phone] Jhoana Grijalva 11/17/2024 9:00 AM EDT PACE Attendance/[place] [facility] [place] [facility] [address] [place] [phone] 11/18/2024 10:30 AM EDT PACE Home Care / PACE Home [place] [facility] [place] [facility] [address] [place] [phone] Cheryle Pryor 11/19/2024 9:00 AM EDT PACE Attendance/[place] [facility] [place] [facility] [address] [place] [phone] 11/21/2024 10:30 AM EDT PACE Home Care / [place] [facility] [place] [facility] [place] [facility] [address] [place] [address] Jhoana Grijalva 11/24/2024 9:00 AM EDT P[place] Attendance[place] [facility] [place] [facility] [address] [place] [address] 11/26/2024 9:00 AM EDT PACE Attendance[facility] [facility] [place] [facility] [address] [place] [address] 12/01/2024 9:00 AM EDT P[place] Attendance[place] [facility] [place] [facility] [address] [place] [phone] 12/03/2024 9:00 AM EDT P[facility] Attendance[facility] [facility] [place] [facility] [address] [place] [address] 12/08/2024 9:00 AM EDT P[place] Att[place]ance[facility] [facility] [place] [facility] [address] [place] [address] 12/10/2024 9:00 AM EDT P[place] Attendance[facility] [facility] [place] [facility] [address] [place] [address] 12/15/2024 9:00 AM EDT P[facility] Attendance[facility] [facility] [place] [facility] [address] [place] [phone] 12/17/2024 9:00 AM EDT P[facility] Attendance[facility] [facility] [place] [facility] [facility] [address] [place] [address] 12/22/2024 9:00 AM EDT P[place] Att[place]ance[facility] [facility] [place] [facility] [address] [place] [address] 12/24/2024 9:00 AM EDT [place] Att[place] [facility] [place] [facility] [address] [place] [phone] 12/29/2024 9:00 AM EDT P[facility] Attendance[facility] [facility] [place] [facility] [address] [place] [address] 12/31/2024 9:00 AM EDT P[facility] Attendance[facility] [facility] [place] [facility] [facility] [address] [place] [address] 01/05/2025 9:00 AM EDT PACE Attendance[facility] [facility] [place] [address] [place] [address] 01/07/2025 9:00 AM EDT P[facility] Attendance[facility] [place] [facility] [place] [facility] [facility] [address] [place] [address] 01/12/2025 9:00 AM EDT P[place] Attendance/[place] [facility] [place] [address] [place] [address] 01/14/2025 9:00 AM EDT P[place] Attendance[facility] [facility] [place] [address] [place] [address] 01/19/2025 9:00 AM EDT P[facility] Attendance[facility] [facility] [place] [address] [place] [phone] 01/21/2025 9:00 AM EDT P[facility] Att[place] [facility] [place] [facility] [address] [place] [address] 01/26/2025 9:00 AM EDT P[facility] Attendance[facility] [facility] [place] [facility] [facility] [address] [place] [address] 01/28/2025 9:00 AM EDT P[facility] Attendance[facility] [facility] [place] [facility] [address] [place] [address] 02/02/2025 9:00 AM EDT P[facility] Attendance[facility] [facility] [place] [facility] [facility] [address] [place] [address] 02/04/2025 9:00 AM EDT P[facility] Attendance[facility] [facility] [place] [facility] [facility] [address] [place] [address] 02/09/2025 9:00 AM EDT PACE Attendance/[place] [facility] [place] [facility] [address] [place] [address] 02/11/2025 9:00 AM EDT P[place] Attendance[facility] [facility] [place] [address] [place] [address] 02/16/2025 9:00 AM EDT P[place] Attendance[facility] [facility] [place] [facility] [address] [place] [address] 02/18/2025 9:00 AM EDT P[place] Attendance[facility] [facility] [place] [facility] [address] [place] [address] 02/23/2025 9:00 AM EDT PACE Attendance[facility] [facility] [place] [facility] [address] [place] [address] 02/25/2025 9:00 AM EDT P[place] Attendance[facility] [facility] [place] [facility] [address] [place] [address] 03/02/2025 9:00 AM EDT PACE Attendance[facility] [facility] [place] [facility] [address] [place] [address] 03/04/2025 9:00 AM EDT P[place] Attendance[facility] [facility] [place] [address] [place] [address] 03/09/2025 9:00 AM EDT P[place] Attendance[facility] [facility] [place] [address] [place] [address] 03/11/2025 9:00 AM EDT PACE Attendance/[place] [facility] [place] [facility] [address] [place] [address] 03/16/2025 9:00 AM EDT PACE Attendance/Day [place] [facility] [place] Day [facility] [address] [place] [address] 03/18/2025 9:00 AM EDT P[place] Attendance/[place] [facility] [place] [address] [place] [address] 03/23/2025 9:00 AM EDT P[place] Attendance[facility] [facility] [place] [address] [place] [address] 03/25/2025 9:00 AM EDT P[place] Attendance[facility] [facility] [place] [address] [place] [address] 03/30/2025 9:00 AM EDT P[place] Attendance/[place] [facility] [place] [address] [place] [address] 04/01/2025 9:00 AM EDT PACE Attendance/[place] [facility] [place] [facility] [address] [place] [address] 04/06/2025 9:00 AM EDT PACE Attendance/[place] [facility] [place] [facility] [address] [place] [address] 04/08/2025 9:00 AM EDT PACE Attendance/[place] [facility] [place] [facility] [address] [place] [phone] 04/13/2025 9:00 AM EDT PACE Attendance/[place] [facility] [place] [address] [place] [address] 04/15/2025 9:00 AM EDT PACE Attendance/[place] [facility] [place] [address] [place] [address] 04/20/2025 9:00 AM EDT P[place] Attendance[facility] [place] [facility] [place] [facility] [address] [place] [address] 04/22/2025 9:00 AM EDT PACE Attendance/[place] [facility] [place] [address] [place] [address] 04/27/2025 9:00 AM EST P[facility] Attendance/[facility] [place] [facility] [place] [facility] [address] [place] [address] 04/29/2025 9:00 AM EST P[place] Attendance[facility] [facility] [place] [facility] [address] [place] [address] 05/04/2025 9:00 AM EST [place] Att[place] [facility] [place] [facility] [address] [place] [address] 05/06/2025 9:00 AM EST P[place] Attend[place] [facility] [place] [facility] [address] [place] [address] 05/11/2025 9:00 AM EST PACE Attendance[facility] [place] [facility] [place] [facility] [address] [place] [address] 05/13/2025 9:00 AM EST PACE Attend[facility] [facility] [place] [facility] [address] [place] [address] 05/18/2025 9:00 AM EST [facility] [facility] [place] [address] [place] [address] 05/20/2025 9:00 AM EST P[facility] Attendance[facility] [facility] [place] [facility] [address] [place] [address] 05/25/2025 9:00 AM EST P[place] Att[place] [facility] [place] [facility] [address] [place] [address] 05/27/2025 9:00 AM EST P[place] [facility] [place] [facility] [address] [place] [address] 06/01/2025 9:00 AM EST P[place] Att[place] [facility] [place] [facility] [address] [place] [address] 06/03/2025 9:00 AM EST P[place] Attend[place] [facility] [place] [address] [place] [address] 06/08/2025 9:00 AM EST P[place] Att[place] [facility] [place] [facility] [address] [place] [address] 06/10/2025 9:00 AM EST P[place] Attend[place] [facility] [place] [facility] [address] [place] [address] 06/15/2025 9:00 AM EST P[place] Attend[place] [facility] [place] [facility] [address] [place] [address] 06/17/2025 9:00 AM EST P[place] Attend[place] [facility] [place] [facility] [address] [place] [address] 06/22/2025 9:00 AM EST P[facility] Att[place] [facility] [place] [facility] [address] [place] [address] 06/24/2025 9:00 AM EST [facility] [place] [facility] [address] [place] [address] 06/29/2025 9:00 AM EST [facility] [place] [facility] [address] [place] [address] 07/01/2025 9:00 AM EST P[facility] Attendance[facility] [facility] [place] [facility] [facility] [address] [place] [address] 07/06/2025 9:00 AM EST P[facility] Attend[place] [facility] [place] [facility] [address] [place] [address] 2025 9:00 AM EST P[facility] Att[place] [facility] [place] [facility] [address] [place] [address] 07/13/2025 9:00 AM EST P[facility] [place] [facility] [address] [place] [address] 07/15/2025 9:00 AM EST PACE Attendance[facility] [place] [facility] [address] [place] [address] 07/20/2025 9:00 AM EST PACE [facility] [place] [facility] [address] [place] [address] 07/22/2025 9:00 AM EST PACE Att[facility] [place] [facility] [place] [address] [place] [address] 07/27/2025 9:00 AM EST PACE Attendance[facility] [facility] [place] [address] [address] 07/29/2025 9:00 AM EST P[facility] [place] [facility] [address] [address] 08/03/2025 9:00 AM EST P[facility] [place] [address] [address] documented as of this encounter Visit Diagnoses Not on filedocumented in this encounter Care Teams Winder Contort Operator Relationship Specialty Start Date End Date Eleazar Gleason MD [phone] [id number] PCP - General 04/11/24 05/01/24 documented as of this encounter
--- OUTSIDE RECORDS SUMMARY | 2024-09-26 16:36 | XMS_ITS | Encounter Summary ---
Author Organization [facility] Address [address] [place] [address] Care Team Providers Care City Director Name Role Phone Dede Pimentel FRAME ASSEMBLER Primary Care Provider [phone] Encounter Details Date Type Department Care Team (Late st Contact Info) Description 07/04/[address] [facility] Lab [address] [place] [address] Dede Pimentel NP 200 [facility] [address] [place], [place] [id number] Encounter for general adult medical examination without [...] 09/29/2024 9:00 AM EDT [facility] [place] [facility] [address] [place] [address] 09/29/2024 11:00 AM EDT Appointment [facility] CT Scan [address] [place] [address] 09/30/2024 10:30 AM EDT PACE Home Care / [facility] [place] [facility] [address] [place] [address] Cheryle Pryor 10/01/2024 9:00 AM EDT [facility] [place] [facility] [address] [place] [phone] 10/03/2024 10:30 AM EDT PACE Home Care / [facility] [place] [facility] [place] [facility] [address] [place] [address] Jhoana Grijalva 10/06/2024 9:00 AM EDT PACE [facility] [place] [facility] [address] [place] [address] 10/06/2024 11:00 AM EDT Appointment [facility] Ultrasound [address] [place] [address] 10/07/2024 10:30 AM EDT PACE Home Care / [facility] [place] [facility] [place] [facility] [address] [place] [address] Cheryle Pryor 10/08/2024 9:00 AM EDT [facility]ACE [facility] [place] [facility] [address] [place] [address] 10/10/2024 10:30 AM EDT PACE Home Care / [facility] [place] [facility] [address] [place] [phone] Jhoana Grijalva 10/13/2024 9:00 AM EDT PACE Attendance/Day [place] [facility]nn [place]ICO[place] [address] [place] [address] 10/14/2024 10:30 AM EDT PACE Home Care / PACE Home Visit [facility]aitlynn NICO[facility] [place] [facility] [address] [place] [phone] Cheryle Pryor 10/15/2024 9:00 AM EDT PACE Attendance/[place] [address] [place] [phone] 10/17/2024 10:30 AM EDT PACE Home Care / PACE Home Visit [facility]aitlynn NICO[facility] [place] [facility] [address] [place] [phone] Jhoana Grijalva 10/20/2024 9:00 AM EDT PACE Attendance/[place] [address] [place] [phone] 10/21/2024 10:30 AM EDT PACE Home Care / PACE Home Visit [facility]ait[facility]nn [facility]ICO[facility] [place] [facility] [address] [place] [phone] Cheryle Pryor 10/22/2024 9:00 AM EDT PACE Attendance/[place] [address] [place] [phone] 10/24/2024 10:30 AM EDT PACE Home Care / PACE Home Visit [facility]aitlynn NICO[facility] [place] [facility] [address] [place] [phone] Jhoana Grijalva 10/27/2024 9:00 AM EDT PACE Attendance[facility] [facility] [place] [facility] [address] [place] [phone] 10/28/2024 10:30 AM EDT PACE Home Care / PACE Home Visit [facility]aitlynn NICO[facility] [place] [facility] [address] [place] [phone] Cheryle Pryor 10/29/2024 9:00 AM EDT PACE Attendance/[place] [address] [place] [phone] 10/31/2024 10:30 AM EDT PACE Home Care / PACE Home Visit [facility]ait[facility]nn NICO[facility] [place] [facility] [address] [place] [phone] Jhoana Grijalva 11/03/2024 9:00 AM EDT PACE Attendance/[place] [address] [place] [phone] 11/04/2024 10:30 AM EDT PACE Home Care / PACE Home Visit [place]aitlynn NICO[facility] [place] [facility] [address] [place] [phone] Cheryle Pryor 11/05/2024 9:00 AM EDT PACE Attendance/[place] [address] [place] [phone] 11/07/2024 10:30 AM EDT PACE Home Care / PACE Home Visit [facility] [place] [facility] [address] [place] [phone] Jhoana Grijalva 11/10/2024 9:00 AM EDT PACE Attendance/[place] [address] [place] [phone] 11/10/2024 9:45 AM EDT Office Visit [facility] [address] [address] Gemini Simmons MD [address] [place] [address] 11/11/2024 10:30 AM EDT PACE Home Care / PACE Home Visit [facility]nn [facility]ICO[facility] [place] [facility] [address] [place] [phone] Cheryle Pryor 11/12/2024 9:00 AM EDT PACE Attendance/[place] [address] [place] [address] 11/14/2024 10:30 AM EDT PACE Home Care / PACE Home Visit [facility]nn [place]ICO[facility] [place] [facility] [address] [place] [phone] Jhoana Grijalva 11/17/2024 9:00 AM EDT PACE Attendance/[place] [address] [place] [phone] 11/18/2024 10:30 AM EDT PACE Home Care / PACE Home Visit [facility]nn [place]ICO[facility] [place] [facility] [address] [place] [phone] Cheryle Pryor 11/19/2024 9:00 AM EDT PACE Attendance/[place] [address] [place] [phone] 11/21/2024 10:30 AM EDT PACE Home Care / PACE Home Visit [place]nn [place]ICO[facility] [place] [facility] [address] [place] [phone] Jhoana Grijalva 11/24/2024 9:00 AM EDT PACE Attendance[place] [address] [place] [phone] 11/26/2024 9:00 AM EDT PACE Attendance/[place] [address] [place] [phone] 12/01/2024 9:00 AM EDT PACE Attendance[facility] [facility] [place] [facility] [address] [place] [phone] 12/03/2024 9:00 AM EDT P[place] Attendance[facility] [facility] [place] [facility] [address] [place] [phone] 12/08/2024 9:00 AM EDT P[place] Attendance[facility] [facility] [place] [facility] [address] [place] [address] 12/10/2024 9:00 AM EDT P[place] Attendance[facility] [facility] [place] [address] [place] [address] 12/15/2024 9:00 AM EDT P[place] Attendance[facility] [facility] [place] [facility] [address] [place] [address] 12/17/2024 9:00 AM EDT P[place] Attendance[facility] [facility] [place] [facility] [address] [place] [address] 12/22/2024 9:00 AM EDT PACE Attendance/[place] [address] [place] [address] 12/24/2024 9:00 AM EDT PACE Attendance[facility] [facility] [place] [facility] [address] [place] [address] 12/29/2024 9:00 AM EDT P[place] Attendance[facility] [facility] [place] [facility] [address] [place] [address] 12/31/2024 9:00 AM EDT P[place] Attendance[facility] [facility] [place] [facility] [address] [place] [phone] 01/05/2025 9:00 AM EDT PACE Attendance[facility] [facility] [place] [facility] [facility] [address] [place] [address] 01/07/2025 9:00 AM EDT PACE Attendance[facility] [facility] [place] [facility] [address] [place] [address] 01/12/2025 9:00 AM EDT PACE Attendance[facility] [facility] [place] [facility] [facility] [address] [place] [address] 01/14/2025 9:00 AM EDT P[facility] Attendance[facility] [place] [facility] [facility] [address] [place] [address] 01/19/2025 9:00 AM EDT PACE Attendance[facility] [place] [facility] [facility] [address] [place] [address] 01/21/2025 9:00 AM EDT PACE Attendance/[place] [place] [place] [facility] [address] [place] [address] 01/26/2025 9:00 AM EDT PACE Attendance[facility] [facility] [place] [facility] [facility] [address] [place] [address] 01/28/2025 9:00 AM EDT PACE Attendance/[place] [place] [address] [place] [address] 02/02/2025 9:00 AM EDT PACE Attendance/[place] [address] [place] [address] 02/04/2025 9:00 AM EDT P[place] Attendance[facility] [place] [facility] [place] [facility] [address] [place] [address] 02/09/2025 9:00 AM EDT P[place] Attendance[facility] [facility] [place] [facility] [address] [place] [address] 02/11/2025 9:00 AM EDT PACE Attendance[facility] [place] [facility] [address] [place] [address] 02/16/2025 9:00 AM EDT P[place] Attendance[facility] [place] [facility] [address] [place] [address] 02/18/2025 9:00 AM EDT PACE Attendance[facility] [place] [facility] [place] [facility] [address] [place] [address] 02/23/2025 9:00 AM EDT PACE Attendance[facility] [place] [facility] [address] [place] [address] 02/25/2025 9:00 AM EDT PACE Attendance/[place] [address] [place] [address] 03/02/2025 9:00 AM EDT PACE Attendance/[place] [address] [place] [address] 03/04/2025 9:00 AM EDT PACE Attendance/[place] [address] [place] [address] 03/09/2025 9:00 AM EDT PACE Attendance/[place] [facility] [address] [place] [address] 03/11/2025 9:00 AM EDT PACE Attendance/[place] [place] [place] [facility] [address] [place] [address] 03/16/2025 9:00 AM EDT PACE Attendance/[place] [place] [place] [facility] [address] [place] [address] 03/18/2025 9:00 AM EDT PACE Attendance/[place] [facility] [address] [place] [address] 03/23/2025 9:00 AM EDT PACE Attendance/[place] [facility] [address] [place] [address] 03/25/2025 9:00 AM EDT PACE Attendance/[place] [address] [place] [address] 03/30/2025 9:00 AM EDT PACE Attendance/[facility] [place] [facility] [place] [facility] [address] [place] [phone] 04/01/2025 9:00 AM EDT PACE Attendance/Day Center [facility] [place] [facility] [address] [place] [address] 04/06/2025 9:00 AM EDT PACE Attendance/[facility] [place] [facility] [address] [place] [address] 04/08/2025 9:00 AM EDT PACE Attendance/[facility] [place] [facility] [address] [place] [address] 04/13/2025 9:00 AM EDT P[place] Attendance[facility] [place] [facility] [address] [place] [address] 04/15/2025 9:00 AM EDT PACE Attendance/[facility] [place] [facility] [address] [place] [address] 04/20/2025 9:00 AM EDT [facility] [place] [facility] [address] [place] [address] 04/22/2025 9:00 AM EDT PACE Attendance/Day [place] [place] [facility] [address] [place] [address] 04/27/2025 9:00 AM EST PACE Attendance[facility] [place] [facility] [address] [place] [address] 04/29/2025 9:00 AM EST PACE Attendance[facility] [facility] [place] [facility] [address] [place] [address] 05/04/2025 9:00 AM EST PACE Attendance[facility] [place] [facility] [address] [place] [address] 05/06/2025 9:00 AM EST P[facility] Attendance[facility] [place] [facility] [facility] [address] [place] [address] 05/11/2025 9:00 AM EST P[place] Attendance[facility] [place] [facility] [address] [place] [address] 05/13/2025 9:00 AM EST PACE Attendance[facility] [place] [facility] [facility] [address] [place] [address] 05/18/2025 9:00 AM EST PACE Attendance/[facility] [place] [facility] [address] [place] [address] 05/20/2025 9:00 AM EST PACE Attendance[facility] [place] [facility] [facility] [address] [place] [address] 05/25/2025 9:00 AM EST [facility] [place] [facility] [address] [place] [address] 05/27/2025 9:00 AM EST [facility] [place] [facility] [address] [place] [address] 06/01/2025 9:00 AM EST PACE Attendance[facility] [place] [facility] [address] [place] [address] 06/03/2025 9:00 AM EST P[facility] Attendance[facility] [place] [facility] [address] [place] [address] 06/08/2025 9:00 AM EST PACE Attendance[facility] [place] [facility] [facility] [address] [place] [address] 06/10/2025 9:00 AM EST [facility] Attend[facility] [place] [facility] [address] [place] [address] 06/15/2025 9:00 AM EST P[facility] Attendance[facility] [place] [facility] [address] [place] [address] 06/17/2025 9:00 AM EST PACE Attendance[facility] [place] [facility] [address] [place] [address] 06/22/2025 9:00 AM EST PACE Attendance[facility] [place] [facility] [address] [place] [address] 06/24/2025 9:00 AM EST PACE Attendance[facility] [place] [facility] [facility] [address] [place] [address] 06/29/2025 9:00 AM EST PACE Attendance[facility] [place] [facility] [address] [place] [address] 07/01/2025 9:00 AM EST PACE Attendance[facility] [place] [facility] [address] [place] [address] 07/06/2025 9:00 AM EST PACE Attend[facility] [place] [facility] [address] [place] [address] 2025 9:00 AM EST PACE Attendance[facility] [place] [facility] [address] [place] [address] 07/13/2025 9:00 AM EST PACE Attendance[facility] [place] [facility] [address] [place] [address] 07/15/2025 9:00 AM EST P[facility] Attend[facility] [place] [facility] [address] [place] [address] 07/20/2025 9:00 AM EST PACE Attendance[facility] [place] [facility] [address] [place] [address] 07/22/2025 9:00 AM EST P[facility] Att[facility] [place] [facility] [address] [place] [address] 07/27/2025 9:00 AM EST PACE Attend[facility] [place] [facility] [address] [place] [phone] 07/29/2025 9:00 AM EST P[place] Attend[facility] [facility] [place] [facility] [address] [place] [address] 08/03/2025 9:00 AM EST LOWELL Attendance/Day Center [facility] [address] [place] [phone] documented as of this encounter Procedures Procedure [...] mirabilis(A ) ANNETTA 07/06/2024 11:50 AM EST [facility] Comment: Edited result: Previously reported as [...] Trimethoprim/Sulfamethoxazole ANNETTA >=320 ug/ml: Resistant Dede Pimentel FRAME ASSEMBLER LAB MICROBIOLOGY - GENERAL OR DERABLES Final Result Performing Organization Address City/[facility]/ZIP Co de Phone Number [facility] [address] [place] [address], [place] [phone] * Fernandez urine culture tube (07/04/2024 8:00 AM EST) Extra Tube Hold for add-ons. 07/04/2024 3:02 PM EST [facility] Comment:Auto resulted. Urine Urine specimen obtained by clean catch procedure / Unknown 07/04/2024 8:00 AM EST 07/04/2024 1:35 PM EST Dede Pimentel FRAME ASSEMBLER LAB URINE ORDERABLES Final Re sult Performing Organization Address City/[facility]/ZIP Co de Phone Number [facility] [address] [place] [address], [place] [phone] * (ABNORMAL) Urinalysis with reflex microscopic and culture (07/04/2024 8:00 AM EST) Specific [place] Urine 1.036(H) 1.003 - 1.030 LAB URINALYSIS [...] 2:20 PM [facility] Squamous Epithelial, Urine 64(H) [...] 8:00 AM EST 07/04/2024 1:35 PM EST us Dede Pimentel NP LAB URINE ORDERABLES Final Re sult [facility] [address] [place] [address], documented in this encounter Visit Diagnoses Diagnosis Encounter for general adult medical examination without abnormal findings Encounter for screening mammogram for malignant neoplasm of breast Encounter for screening for osteoporosis Other specified disorders of bone density and structure, multiple sites Encounter for screening for malignant neoplasm of colon documented in this encounter Care Teams City Director Relationship Specialty Start Date End Date Dede Pimentel NP [address] [facility] [address] [place] [address] PCP - General Family Medicine 05/02/24 documented as of this encounter
--- OUTSIDE RECORDS SUMMARY | 2024-09-26 16:36 | XMS_ITS ---
Author Organization [facility] Address [address] [place] [address] Care Team Providers Care Wholesale Loan Processor Name Role Phone Dede Pimentel GEOLOGICAL ENGINEERING TEACHER Primary Care Provider [phone] [facility] Status:Enrolled (Active) Start date:08/23/2024 Related program episode:Program of All-Inclusive Care for the Elderly (Active) Continued Care and Services Coordination
--- OUTSIDE RECORDS SUMMARY | 2024-09-26 16:36 | XMS_ITS | Encounter Summary ---
Author Organization [facility] Address [address] [place] [address] Care Team Providers Care Purchasing Contracting Clerk Name Role Phone Eleazar Gleason MD Primary Care Provider [phone] Encounter Details Date Type Department Care Team [...] appetite for lunch. Aware of 30minute post digital media coordinator observation period for first infusion. 1300 - Observation period completed - patient with no issues noted - IV flushed and removed intact - patient has next appt in place. Stable upon discharge - [employer] transport van here for ride home. documented in this encounter Plan of Treatment Upcoming Encounters Date Type Department Care Team (Late st Contact Info) Description 09/29/2024 9:00 AM EDT [facility] [employer] [facility] [address] [place] [phone] 09/29/2024 11:00 AM EDT Appointment [facility] CT Scan [address] [place] [address] 09/30/2024 10:30 AM EDT PACE Home Care / PACE Home Visit [facility] [place] [facility] [address] [place] [phone] Cheryle Pryor 10/01/2024 9:00 AM EDT [facility] [employer] [place] [employer] Day [address] [address] 10/03/2024 10:30 AM EDT PACE Home Care / [facility] [address] [place] [phone] Jhoana Grijalva 10/06/2024 9:00 AM EDT [facility] [employer] Day [address] [address] 10/06/2024 11:00 AM EDT Appointment [facility] Ultrasound [address] [place] [address] 10/07/2024 10:30 AM EDT PACE Home Care / PACE Home Visit [facility] [place] [facility] [address] [place] [address] Cheryle Pryor 10/08/2024 9:00 AM EDT [facility] Att[facility] [place] [facility] [place] [facility] [address] [place] [phone] 10/10/2024 10:30 AM EDT PACE Home Care / PACE Home Visit [facility] [place] [facility] [address] [place] [phone] Jhaona Grijalva 10/13/2024 9:00 AM EDT [facility] [place] [facility] [address] [place] [address] 10/14/2024 10:30 AM EDT PACE Home Care / PACE Home Visit [facility] [place] [facility] [address] [place] [phone] Cheryle Pryor 10/15/2024 9:00 AM EDT P[facility] Attendance[facility] [facility] [place] [facility] [address] [place] [phone] 10/17/2024 10:30 AM EDT PACE Home Care / PACE Home Visit [facility] [place] [facility] [address] [place] [phone] Jhoana Grijalva 10/20/2024 9:00 AM EDT [facility] [facility] [facility] [place] [facility] [address] [place] [phone] 10/21/2024 10:30 AM EDT PACE Home Care / [facility] [place] [facility] [address] [place] [phone] Cheryle Pryor 10/22/2024 9:00 AM EDT [facility] [facility] [place] [facility] [address] [place] [address] 10/24/2024 10:30 AM EDT PACE Home Care / [facility] [place] [facility] [address] [place] [phone] Jhoana Grijalva 10/27/2024 9:00 AM EDT [facility] [facility] [place] [facility] [address] [place] [phone] 10/28/2024 10:30 AM EDT PACE Home Care / PACE Home Visit [facility] [place] [facility] [address] [place] [phone] Cheryle Pryor 10/29/2024 9:00 AM EDT P[place] Att[place] [facility] [place] [facility] [address] [place] [phone] 10/31/2024 10:30 AM EDT PACE Home Care / PACE Home Visit [facility] [place] [facility] [address] [place] [phone] Jhoana Grijalva 11/03/2024 9:00 AM EDT [facility] Attendance[facility] [facility] [place] [facility] [place] [facility] [address] [place] [phone] 11/04/2024 10:30 AM EDT PACE Home Care / [facility] [place] [facility] [address] [place] [phone] Cheryle Pryor 11/05/2024 9:00 AM EDT [place] [facility] [place] [facility] [address] [place] [address] 11/07/2024 10:30 AM EDT PACE Home Care / [facility] [place] [facility] [address] [place] [phone] Jhoana Grijalva 11/10/2024 9:00 AM EDT [facility] Att[facility] [facility] [place] [facility] [address] [place] [address] 11/10/2024 9:45 AM EDT Office Visit [facility] [address] [place] [address] Gemini Simmons MD [address] [facility] [address] [place] [address] 11/11/2024 10:30 AM EDT PACE Home Care / PACE Home Visit [facility] [place] [facility] [address] [place] [phone] Cheryle Pryor 11/12/2024 9:00 AM EDT [place] [facility] [place] [facility] [address] [place] [phone] 11/14/2024 10:30 AM EDT PACE Home Care / [facility] [place] [facility] [address] [place] [phone] Jhoana Grijalva 11/17/2024 9:00 AM EDT [place] [facility] [place] [facility] [address] [place] [phone] 11/18/2024 10:30 AM EDT PACE Home Care / [facility] [place] [facility] [address] [place] [phone] Cheryle Pryor 11/19/2024 9:00 AM EDT [facility] [facility] [place] [facility] [address] [place] [phone] 11/21/2024 10:30 AM EDT PACE Home Care / [facility] [place] [facility] [address] [place] [phone] Jhoana Grijalva 11/24/2024 9:00 AM EDT [facility] [facility] [place] [facility] [address] [place] [address] 11/26/2024 9:00 AM EDT [facility] [facility] [place] [facility] [address] [place] [address] 12/01/2024 9:00 AM EDT [place] [facility] [facility] [place] [facility] [address] [place] [address] 12/03/2024 9:00 AM EDT [facility] [facility] [place] [facility] [address] [place] [address] 12/08/2024 9:00 AM EDT [facility] [facility] [place] [facility] [address] [place] [address] 12/10/2024 9:00 AM EDT [facility] [facility] [place] [facility] [address] [place] [phone] 12/15/2024 9:00 AM EDT [facility] [facility] [place] [facility] [address] [place] [phone] 12/17/2024 9:00 AM EDT [facility] [facility] [place] [facility] [address] [place] [address] 12/22/2024 9:00 AM EDT [facility] [facility] [place] [facility] [address] [place] [phone] 12/24/2024 9:00 AM EDT [facility] [facility] [facility] [place] [facility] [address] [place] [phone] 12/29/2024 9:00 AM EDT [facility] [facility] [place] [facility] [address] [place] [phone] 12/31/2024 9:00 AM EDT [facility] Attendance[facility] [facility] [place] [facility] [facility] [address] [place] [address] 01/05/2025 9:00 AM EDT [facility] Attendance[facility] [facility] [place] [facility] [place] [facility] [address] [place] [address] 01/07/2025 9:00 AM EDT [facility] Attend[facility] [facility] [place] [facility] [place] [facility] [address] [place] [address] 01/12/2025 9:00 AM EDT [facility] Att[facility] [facility] [place] [facility] [place] [facility] [address] [place] [address] 01/14/2025 9:00 AM EDT [facility] Att[facility] [facility] [place] [facility] [address] [place] [address] 01/19/2025 9:00 AM EDT [facility] Attendance[facility] [facility] [place] [facility] [place] [facility] [address] [place] [address] 01/21/2025 9:00 AM EDT [facility] [place] [facility] [place] [facility] [place] [facility] [address] [place] [address] 01/26/2025 9:00 AM EDT [facility] [place] [facility] [place] [facility] [address] [place] [address] 01/28/2025 9:00 AM EDT [facility] [place] [facility] [place] [facility] [place] [facility] [address] [place] [address] 02/02/2025 9:00 AM EDT [facility] [place] [facility] [address] [place] [address] 02/04/2025 9:00 AM EDT [facility] [facility] [place] [facility] [address] [place] [address] 02/09/2025 9:00 AM EDT [facility] [place] [facility] [address] [place] [address] 02/11/2025 9:00 AM EDT [facility] [place] [facility] [address] [place] [address] 02/16/2025 9:00 AM EDT [facility] [place] [facility] [address] [place] [address] 02/18/2025 9:00 AM EDT [facility] [facility] [place] [facility] [address] [place] [address] 02/23/2025 9:00 AM EDT [facility] [facility] [place] [facility] [address] [place] [address] 02/25/2025 9:00 AM EDT [facility] [facility] [place] [facility] [address] [place] [address] 03/02/2025 9:00 AM EDT [facility] [facility] [facility] [place] [facility] [address] [place] [phone] 03/04/2025 9:00 AM EDT [facility] [facility] [place] [facility] [address] [place] [phone] 03/09/2025 9:00 AM EDT [facility] [place] [facility] [address] [place] [address] 03/11/2025 9:00 AM EDT [facility] [facility] [place] [facility] [address] [place] [phone] 03/16/2025 9:00 AM EDT [facility] [place] [facility] [address] [place] [address] 03/18/2025 9:00 AM EDT [facility] [place] [facility] [address] [place] [address] 03/23/2025 9:00 AM EDT [facility] [place] [facility] [address] [place] [address] 03/25/2025 9:00 AM EDT [facility] [facility] [place] [facility] [address] [place] [address] 03/30/2025 9:00 AM EDT [facility] [facility] [place] [facility] [address] [place] [address] 04/01/2025 9:00 AM EDT [facility] [facility] [place] [facility] [address] [place] [address] 04/06/2025 9:00 AM EDT [facility] [facility] [place] [facility] [address] [place] [address] 04/08/2025 9:00 AM EDT [facility] [facility] [place] [facility] [address] [place] [phone] 04/13/2025 9:00 AM EDT [facility] [facility] [place] [facility] [address] [place] [phone] 04/15/2025 9:00 AM EDT [facility] [facility] [place] [facility] [address] [place] [address] 04/20/2025 9:00 AM EDT [facility] [facility] [place] [facility] [address] [place] [phone] 04/22/2025 9:00 AM EDT [facility] [facility] [place] [facility] [address] [place] [phone] 04/27/2025 9:00 AM EST [facility] [place] [facility] [address] [place] [address] 04/29/2025 9:00 AM EST [facility] [place] [facility] [facility] [address] [place] [address] 05/04/2025 9:00 AM EST [facility] [place] [facility] [address] [place] [phone] 05/06/2025 9:00 AM EST [facility] [facility] [place] [facility] [address] [place] [phone] 05/11/2025 9:00 AM EST [facility] [facility] [place] [facility] [address] [place] [address] 05/13/2025 9:00 AM EST [facility] [place] [facility] [address] [place] [phone] 05/18/2025 9:00 AM EST P[facility] Attendance[facility] [facility] [place] [facility] [address] [place] [phone] 05/20/2025 9:00 AM EST [facility] [place] [facility] [address] [place] [phone] 05/25/2025 9:00 AM EST [facility] [place] [facility] [address] [place] [address] 05/27/2025 9:00 AM EST [facility] [facility] [place] [facility] [address] [place] [address] 06/01/2025 9:00 AM EST [facility] [facility] [place] [facility] [address] [place] [address] 06/03/2025 9:00 AM EST [facility] [place] [facility] [address] [place] [phone] 06/08/2025 9:00 AM EST [facility] [place] [facility] [address] [place] [address] 06/10/2025 9:00 AM EST [facility] [place] [facility] [address] [place] [address] 06/15/2025 9:00 AM EST [facility] [place] [facility] [address] [place] [address] 06/17/2025 9:00 AM EST P[facility] Attendance[facility] [facility] [place] [facility] [address] [place] [address] 06/22/2025 9:00 AM EST P[facility] Attend[facility] [facility] [place] [facility] [address] [place] [address] 06/24/2025 9:00 AM EST P[facility] Attend[facility] [facility] [place] [facility] [address] [place] [address] 06/29/2025 9:00 AM EST P[facility] [place] [facility] [address] [place] [address] 07/01/2025 9:00 AM EST [facility] [place] [facility] [address] [place] [address] 07/06/2025 9:00 AM EST [facility] [place] [facility] [address] [place] [address] 2025 9:00 AM EST [facility] [place] [facility] [address] [place] [address] 07/13/2025 9:00 AM EST [facility] [place] [facility] [address] [place] [address] 07/15/2025 9:00 AM EST [facility] [place] [facility] [address] [place] [address] 07/20/2025 9:00 AM EST [place] [facility] [place] [facility] [address] [place] [address] 07/22/2025 9:00 AM EST [place] [facility] [place] [facility] [address] [place] [address] 07/27/2025 9:00 AM EST [place] [facility] [place] [facility] [address] [place] [address] 07/29/2025 9:00 AM EST [place] [facility] [place] [facility] [address] [place] [phone] 08/03/2025 9:00 AM EST [facility] [employer] [place] [facility] [address] [address] documented as of this encounter Procedures Procedure Name Priority Date/Time Associated Diagnosis Comments ..MISCELLANEOUS REFERENCE LAB TEST 04/14/2024 documented in this encounter Results * Miscellaneous reference lab test (04/14/2024) us Provider Onbase MD LAB BLOOD ORDERABLES Final Re sult documented in this encounter Visit Diagnoses Diagnosis Iron deficiency anemia, unspecified documented in this encounter Care Teams Purchasing Contracting Clerk Relationship Specialty Start Date End Date Eleazar Gleason MD [phone] [address] PCP - General 04/11/24 05/01/24 documented as of this encounter
--- OUTSIDE RECORDS SUMMARY | 2024-09-26 16:36 | XMS_ITS | Encounter Summary ---
Author Organization [facility] Address [address] [place] [address] Care Team Providers Care Machine Sorter Name Role Phone Dede Pimentel NP Primary Care Provider [phone] Encounter Details Date Type Department Care Team (Late st Contact Info) Description 09/25/2024 Telephone Method [place] Social Work [address] [place] [address] Beverly Felix LCSW Social History Tobacco Use Types Packs/Day Years [...] as of this encounter Progress Notes * Beverly Felix LCSW - 09/25/2024 2:34 PM EDT Phone to max after she cancelled the day center this week and missed scheduled counseling session. Max explained that she had been worried upon hearing news of viral infections at the day center (recently) and didn't want to risk getting ill. States she does plan to attend next week (mentioning that she had previously agreed to twice a week attendance) and has a f/u clinic appt tomorrow as well. Max sounded at baseline, no SI elicited and related she is ???hanging in there?? but has been very fatigued and sleeping excessively. Emotional support provided and max expressed appreciation for thecheck-in phone call. documented in this encounter Plan of Treatment Upcoming Encounters Date Type Department Care Team (Late st Contact Info) Description 09/29/2024 9:00 AM EDT [facility] Attendance[facility] [facility] [place] [facility] [address] [place] [address] 09/29/2024 11:00 AM EDT Appointment [facility] CT Scan [address] [place] [address] 09/30/2024 10:30 AM EDT PACE Home Care / [facility] Home [place] [facility] [place] [facility] [address] [place] [address] Cheryle Pryor 10/01/2024 9:00 AM EDT [facility] Att[facility] [place] [facility] [address] [place] [address] 10/03/2024 10:30 AM EDT PACE Home Care / [facility] [place] [facility] [address] [place] [address] Jhoana Grijalva 10/06/2024 9:00 AM EDT [place] Attendance[place] [facility] [place] [facility] [facility] [address] [place] [address] 10/06/2024 11:00 AM EDT Appointment [facility] Ultrasound [address] [place] [address] 10/07/2024 10:30 AM EDT PACE Home Care / [facility] [place] [facility] [address] [place] [address] Cheryle Pryor 10/08/2024 9:00 AM EDT [facility] Attendance[facility] [place] [facility] [address] [place] [address] 10/10/2024 10:30 AM EDT PACE Home Care / [facility] [place] [facility] [address] [place] [address] Jhoana Grijalva 10/13/2024 9:00 AM EDT [facility] Att[facility] [place] [facility] [place] [facility] [address] [place] [address] 10/14/2024 10:30 AM EDT PACE Home Care / [facility] [place] [facility] [address] [place] [phone] Cheryle Pryor 10/15/2024 9:00 AM EDT [facility] Att[facility] [place] [facility] [place] [facility] [address] [place] [address] 10/17/2024 10:30 AM EDT PACE Home Care / [facility] [place] [facility] [address] [place] [phone] Jhoana Grijalva 10/20/2024 9:00 AM EDT [facility] Att[facility] [place] [facility] [address] [place] [phone] 10/21/2024 10:30 AM EDT PACE Home Care / [facility] [address] [place] [phone] Cheryle Pryor 10/22/2024 9:00 AM EDT [facility] Att[facility] [place] [facility] [address] [place] [phone] 10/24/2024 10:30 AM EDT PACE Home Care / [facility] [place] [facility] [address] [place] [phone] Jhoana Grijalva 10/27/2024 9:00 AM EDT [facility] Att[facility] [place] [facility] [address] [place] [phone] 10/28/2024 10:30 AM EDT PACE Home Care / [facility] [address] [place] [phone] Cheryle Pryor 10/29/2024 9:00 AM EDT [facility] Att[facility] [place] [facility] [address] [place] [phone] 10/31/2024 10:30 AM EDT PACE Home Care / [facility] [place] [facility] [address] [place] [phone] Jhoana Grijalva 11/03/2024 9:00 AM EDT [facility] Att[facility] [place] [facility] [address] [place] [phone] 11/04/2024 10:30 AM EDT PACE Home Care / [facility] [address] [place] [phone] Cheryle Pryor 11/05/2024 9:00 AM EDT [facility] Att[facility] [place] [facility] [place] [facility] [address] [place] [phone] 11/07/2024 10:30 AM EDT PACE Home Care / [facility] [address] [place] [phone] Jhoana Grijalva 11/10/2024 9:00 AM EDT [facility] Att[facility] [facility] [place] [facility] [address] [place] [phone] 11/10/2024 9:45 AM EDT Office Visit [facility] [address] [place] [phone] Gemini Simmons MD [address] [place] [address] 11/11/2024 10:30 AM EDT PACE Home Care / [facility] [place] [facility] [address] [place] [phone] Cheryle Pryor 11/12/2024 9:00 AM EDT [facility] [place] [facility] [place] [facility] [address] [place] [phone] 11/14/2024 10:30 AM EDT PACE Home Care / [facility] [place] [facility] [address] [place] [phone] Jhoana Grijalva 11/17/2024 9:00 AM EDT [facility] Att[facility] [facility] [place] [facility] [address] [place] [phone] 11/18/2024 10:30 AM EDT PACE Home Care / [facility] [address] [place] [phone] Cheryle Pryor 11/19/2024 9:00 AM EDT [facility] Att[facility] [facility] [place] [facility] [address] [place] [phone] 11/21/2024 10:30 AM EDT PACE Home Care / [facility] [address] [place] [phone] Jhoana Grijalva 11/24/2024 9:00 AM EDT PACE Attendance/[facility] [address] [place] [phone] 11/26/2024 9:00 AM EDT [facility] Att[facility] [facility] [place] [facility] [address] [place] [address] 12/01/2024 9:00 AM EDT [facility] Att[facility] [facility] [place] [facility] [address] [place] [address] 12/03/2024 9:00 AM EDT [facility] [place] [facility] [address] [place] [address] 12/08/2024 9:00 AM EDT [facility] [place] [facility] [address] [place] [address] 12/10/2024 9:00 AM EDT [facility] [place] [facility] [address] [place] [phone] 12/15/2024 9:00 AM EDT [facility] [place] [facility] [address] [place] [address] 12/17/2024 9:00 AM EDT [facility] Att[facility] [place] [facility] [address] [place] [phone] 12/22/2024 9:00 AM EDT [facility] Att[facility] [facility] [place] [facility] [address] [place] [phone] 12/24/2024 9:00 AM EDT [facility] Att[facility] [place] [facility] [address] [place] [address] 12/29/2024 9:00 AM EDT [facility] [place] [facility] [address] [place] [phone] 12/31/2024 9:00 AM EDT [facility] [place] [facility] [address] [place] [phone] 01/05/2025 9:00 AM EDT [facility] Att[facility] [place] [facility] [address] [place] [address] 01/07/2025 9:00 AM EDT [facility] Att[facility] [place] [facility] [address] [place] [address] 01/12/2025 9:00 AM EDT [facility] Att[facility] [facility] [place] [facility] [address] [place] [address] 01/14/2025 9:00 AM EDT [facility] Att[facility] [facility] [place] [facility] [address] [place] [phone] 01/19/2025 9:00 AM EDT [facility] Att[facility] [place] [facility] [address] [place] [address] 01/21/2025 9:00 AM EDT [facility] Att[facility] [place] [facility] [address] [place] [phone] 01/26/2025 9:00 AM EDT [facility] Att[facility] [place] [facility] [address] [place] [phone] 01/28/2025 9:00 AM EDT [facility] Att[facility] [facility] [place] [facility] [address] [place] [phone] 02/02/2025 9:00 AM EDT [facility] Att[facility] [place] [facility] [address] [place] [address] 02/04/2025 9:00 AM EDT [facility] Att[facility] [place] [facility] [address] [place] [phone] 02/09/2025 9:00 AM EDT [facility] Att[facility] [place] [facility] [address] [place] [phone] 02/11/2025 9:00 AM EDT [facility] Att[facility] [place] [facility] [address] [place] [address] 02/16/2025 9:00 AM EDT [facility] Att[facility] [place] [facility] [address] [place] [address] 02/18/2025 9:00 AM EDT [facility] Att[facility] [place] [facility] [address] [place] [address] 02/23/2025 9:00 AM EDT [facility] Attend[facility] [place] [facility] [address] [place] [address] 02/25/2025 9:00 AM EDT [facility] Att[facility] [place] [facility] [address] [place] [address] 03/02/2025 9:00 AM EDT [facility] Att[facility] [place] [facility] [address] [place] [address] 03/04/2025 9:00 AM EDT [facility] Att[facility] [place] [facility] [address] [place] [address] 03/09/2025 9:00 AM EDT [facility] Att[facility] [place] [facility] [address] [place] [phone] 03/11/2025 9:00 AM EDT [facility] Att[facility] [place] [facility] [address] [place] [address] 03/16/2025 9:00 AM EDT [facility] Attend[facility] [place] [facility] [address] [place] [address] 03/18/2025 9:00 AM EDT [facility] Attendance[facility] [place] [facility] [address] [place] [address] 03/23/2025 9:00 AM EDT [facility] Att[facility] [place] [facility] [address] [place] [address] 03/25/2025 9:00 AM EDT [facility] Attend[facility] [place] [facility] [address] [place] [address] 03/30/2025 9:00 AM EDT [facility] Att[facility] [place] [facility] [address] [place] [address] 04/01/2025 9:00 AM EDT [facility] Att[facility] [place] [facility] [address] [place] [address] 04/06/2025 9:00 AM EDT [facility] [place] [facility] [address] [place] [phone] 04/08/2025 9:00 AM EDT [facility] [place] [facility] [address] [place] [address] 04/13/2025 9:00 AM EDT [facility] Att[facility] [place] [facility] [address] [place] [address] 04/15/2025 9:00 AM EDT [facility] Att[facility] [place] [facility] [address] [place] [address] 04/20/2025 9:00 AM EDT [facility] Attendance[facility] [place] [facility] [address] [place] [address] 04/22/2025 9:00 AM EDT PACE Attendance/Day Center [facility] [address] [place] [address] 04/27/2025 9:00 AM EST PACE Attendance/Day [facility] [address] [place] [address] 04/29/2025 9:00 AM EST PACE Attendance/[facility] [place] [facility] [address] [place] [address] 05/04/2025 9:00 AM EST [facility] Attendance[facility] [place] [facility] [place] [facility] [address] [place] [phone] 05/06/2025 9:00 AM EST [facility] Att[facility] [place] [facility] [address] [place] [address] 05/11/2025 9:00 AM EST [facility] [place] [facility] [address] [place] [address] 05/13/2025 9:00 AM EST [facility] [place] [facility] [address] [place] [address] 05/18/2025 9:00 AM EST [facility] [place] [facility] [address] [place] [phone] 05/20/2025 9:00 AM EST [facility] Att[facility] [place] [facility] [address] [place] [address] 05/25/2025 9:00 AM EST [facility] [place] [facility] [address] [place] [address] 05/27/2025 9:00 AM EST [facility] [place] [facility] [address] [place] [address] 06/01/2025 9:00 AM EST [facility] Att[facility] [place] [facility] [address] [place] [address] 06/03/2025 9:00 AM EST [facility] Att[facility] [place] [facility] [address] [place] [address] 06/08/2025 9:00 AM EST [facility] Att[facility] [place] [facility] [address] [place] [address] 06/10/2025 9:00 AM EST [facility] Att[facility] [place] [facility] [address] [place] [address] 06/15/2025 9:00 AM EST [facility] [place] [facility] [address] [place] [address] 06/17/2025 9:00 AM EST [facility] [place] [facility] [address] [place] [address] 06/22/2025 9:00 AM EST [facility] [place] [facility] [address] [place] [address] 06/24/2025 9:00 AM EST [facility] [place] [facility] [address] [place] [address] 06/29/2025 9:00 AM EST [facility] [place] [facility] [address] [place] [address] 07/01/2025 9:00 AM EST [facility] [place] [facility] [address] [place] [phone] 07/06/2025 9:00 AM EST [facility] [place] [facility] [address] [place] [address] 2025 9:00 AM EST [facility] [place] [facility] [address] [place] [address] 07/13/2025 9:00 AM EST [facility] [place] [facility] [address] [place] [address] 07/15/2025 9:00 AM EST [facility] Attendance[facility] [place] [facility] [address] [place] [address] 07/20/2025 9:00 AM EST [facility] [place] [facility] [address] [place] [address] 07/22/2025 9:00 AM EST [facility] [place] [facility] [address] [place] [address] 07/27/2025 9:00 AM EST [facility] Day [address] [address] 07/29/2025 9:00 AM EST [facility] [place] [facility] [address] [place] [phone] 08/03/2025 9:00 AM EST [facility] [place] [facility] [address] [address] documented as of this encounter Visit Diagnoses Not on filedocumented in this encounter Care Teams Machine Sorter Relationship Specialty Start Date End Date Dede Pimentel NP [address] [place] [phone] PCP - General Family Medicine 05/02/24 documented as of this encounter
--- OUTSIDE RECORDS SUMMARY | 2024-09-26 16:36 | XMS_ITS | Encounter Summary ---
Author Organization [facility] Address [address] [place] [address] Care Team Providers Care Media Center Assistant Name Role Phone Unavailable Primary Care Provider [...]
--- OUTSIDE RECORDS SUMMARY | 2024-09-26 16:36 | XMS_ITS | Encounter Summary ---
Author Organization [employer] [facility] Address [address] [place] [address] Care Team Providers Care Vocational Ed Instructor Name Role Phone Unavailable Primary Care Provider [...]
--- NOTE | 2024-09-26 16:52 | PC.NURSE ---
pt transitioned to ED6 as pt is on 3L via NC baseline making O2 tubing a ligature risk. pt currently speaking w/ care team at this time. 1:1 sitter present.
[2024-09-26 16:58] VITALS: BP 127/86; PULSE 70; RESP 16; TEMP 36.3; O2SAT 95
[2024-09-26] MEDS: traZODone HCL 25 MG HALFTAB PO (17:02)
--- NOTE | 2024-09-26 17:09 | PC.NURSE ---
care team consult evaluation complete. upon assessment, pt a&ox4. vss and up to date. pt currently on 3L via NC. pt reports 3L-4L via NC is her baseline d/t hx COPD. no sob/wob noted. respirations even/unlabored. lung sounds CTA. walker baseline. pt reports increased depression and SI w/ a plan for approximately 3 weeks. pt reports constant thoughts of harming herself recently but overwhelming thoughts have worsened within the past few days. pt reports having a specific plan but declining to tell this RN what specific plan is. denies previous attempts. denies HI/AV/VH/ETOH/substance use. care team report/plan pending. medication administered per provider order. pt calm/cooperative/pleasant. 1:1 sitter present. plan of care ongoing. call estrada placed within reach.
--- NOTE | 2024-09-26 17:22 | PC.NURSE ---
pt pending psychiatry consult at this time - possible [facility] admission. pt notified/aware of plan at this time. 1:1 sitter remains present.
--- NOTE | 2024-09-26 17:37 | MHC.CARE ---
CARE team assessment complete, plan is for inpatient [facility] placement.
[2024-09-26 20:29] VITALS: BP 124/74; PULSE 70; RESP 18; TEMP 36.4; O2SAT 93
[2024-09-26 22:32] LABS: Alanine Aminotransferase 14 U/L (0-31); Alkaline Phosphatase 105 U/L (39-117); Anion Gap 10 (12-20); Aspartate Amino Transferase 23 U/L (5-31); Bilirubin Total 0.2 mg/dL (0.0-1.0); Blood Urea Nitrogen 17 mg/dL (9-16); Calcium 9.7 mg/dL (8.4-10.2); Carbon Dioxide 32 mmol/L (22-29); Chloride 104 mmol/L (96-108); Creatinine Clr Calc Pharmacy 73.4; Estimated Glomerular Filt Rate 53; Glucose Random 93 mg/dL (60-115); Potassium 3.8 mmol/L (3.3-5.1); Sodium 142 mmol/L (135-145); Total Protein 7.2 g/dL (6.5-8.0)
[2024-09-26 23:40] VITALS: BP 154/89; PULSE 75; RESP 16; TEMP 36.6; O2SAT 94
[2024-09-26] MEDS: Melatonin 3 MG TABLET PO (23:42)
[2024-09-26] MEDS: QUEtiapine Fumarate 400 MG TABLET PO (23:42)
[2024-09-26] MEDS: Apixaban 5 MG TABLET PO (23:42)
[2024-09-26] MEDS: LORazepam 1 MG TABLET PO (23:43)
[2024-09-26] MEDS: Gabapentin 400 MG CAPSULE 800 MG PO (23:43)
[2024-09-26] MEDS: OXcarbazepine 300 MG TABLET 600 MG PO (23:44)
[2024-09-26] MEDS: Prazosin HCL 1 MG CAPSULE 2 MG PO (23:44)
[2024-09-26] MEDS: Cyclobenzaprine HCl 10 MG TABLET PO (23:45)
[2024-09-26] MEDS: cefuroxime axetiL 250 MG TABLET PO (23:45)
[2024-09-26] MEDS: Atorvastatin Calcium 40 MG TABLET PO (23:46)
--- NOTE | 2024-09-27 01:55 | PC.ADMIT ---
Pt is a 64 year old , white, Romanian speaking female who was sent to the [facility] for evaluation after disclosing worsening depression and thoughts of suicide to her daughter, who contacted her PACE social media marketer, who passed it along to her PCP, who then questioned the pt about it during their appointment today. Pt is not previously known to the CARE team however has a history of inpatient psychiatric admissions at this facility, most recently in July 2024. She has a documented diagnosis of Bipolar Depression. Patient utilizing oxygen 3l continuously. On arrival to unit patient was pleasant and cooperative. Patient reports anxiety 9/10 with depression 9/10. Patient reporting suicidal ideation with a plan that she states she prefers to not discuss with staff. Patient has been placed on 1:1 due to SI and oxygen tubing/walker. Patient denies any HI or AH/VH. Patient walks ok at home with a walker. Patient does not drink alcohol or use street drugs, Skin check done, patient has bilateral pitting +1 edema in lower extremities. Patient cooperative with nurse with intake questions. Patient signed in CV.
[2024-09-27 09:00] VITALS: BP 138/88; PULSE 69; TEMP 36.4; O2SAT 90
[2024-09-27] MEDS: OXcarbazepine 300 MG TABLET 600 MG PO ×2 (09:28→20:49)
[2024-09-27 09:29] VITALS: BP 138/88; PULSE 69
[2024-09-27] MEDS: Metoprolol Succinate ER 25 MG TAB.ER.24H PO (09:29)
[2024-09-27] MEDS: Gabapentin 400 MG CAPSULE 800 MG PO ×3 (09:29→20:48)
[2024-09-27] MEDS: cefuroxime axetiL 250 MG TABLET PO ×2 (09:29→20:51)
[2024-09-27] MEDS: Aspirin 81 MG TAB.CHEW PO (09:29)
[2024-09-27] MEDS: LORazepam 1 MG TABLET PO ×3 (09:29→20:51)
[2024-09-27] MEDS: Cyclobenzaprine HCl 10 MG TABLET PO ×2 (09:30→20:50)
[2024-09-27] MEDS: FLUoxetine HCl 20 MG CAPSULE PO (09:31)
[2024-09-27] MEDS: Cholecalciferol (Vitamin D3) 25 MCG TABLET 50 MCG PO (09:31)
[2024-09-27] MEDS: metFORMIN HCl 500 MG TABLET PO (09:32)
[2024-09-27] MEDS: traZODone HCL 25 MG HALFTAB PO ×3 (09:32→17:07)
[2024-09-27] MEDS: Methenamine Hippurate 1 GM TABLET PO (09:32)
[2024-09-27] MEDS: Bumetanide 1 MG TABLET 2 MG PO (09:32)
[2024-09-27] MEDS: Ferrous Sulfate 324 MG TABLET.DR PO (09:33)
[2024-09-27] MEDS: Apixaban 5 MG TABLET PO ×2 (09:33→20:52)
[2024-09-27] MEDS: Potassium Chloride ER 10 MEQ TABLET.ER PO (09:33)
[2024-09-27] MEDS: Fluticasone/Umeclidinium/Vilanterol 100/62.5/25 BLST.W.DEV 1 PUFF INHALE (09:33)
[2024-09-27] MEDS: Acetaminophen 325 MG TABLET 650 MG PO (09:58)
[2024-09-27] MEDS: Flu Vacc TS2024-25(6mos up)/PF 0.5 ML SYRINGE IM (10:23)
[2024-09-27] MEDS: hydrOXYzine HCL 25 MG TABLET PO (10:30)
[2024-09-27 13:40] LABS: Estimated Average Glucose 108 mg/dL; Hemoglobin A1C 143.2727 umol/L; Hemoglobin A1c % 5.4 % (<6.0); Total Hemoglobin (HGBA1C) 3977.8649 umol/L
[2024-09-27 13:43] LABS: Cholesterol 136 mg/dL (<200); HDL Cholesterol 49 mg/dL (>40); LDL Cholesterol Calculated 60 mg/dL (<100); Triglycerides 137 mg/dL (<150)
--- NOTE | 2024-09-27 15:55 | HO.PSYADMNOT ---
HPI Date of Service: 09/27/24 Chief Complaint: SI Sources of Information: patient interviewed, chart reviewed and crisis/core team assessment reviewed HPI Subjective Notes: Fall Warning and Conditional Voluntary Narrative: Pt is a 64 yo female, with hx of Bipolar disorder, recently dc'd from , self presents for SI. Pt says she was feeling good when she was discharged a few weeks ago; she's not sure why but started to become depressed with return of negative self talk. Depressed worsened and she developed SI with a plan that she will not reveal. She wanted to stay safe so she self-presented. Pt reports continued adherence with medications. Pt considers it possible she became lonely these past weeks since unable to go to her day program. Denies AVH. patient seen at 4pm on 09/27/24 Past Psychiatric History: She reported that she was diagnosed of bipolar depression in her 20s and she had several admissions into the hospital a certain point she was admitted at [facility] where she received ECT and here more than 25 years ago. She denies substance abuse but she is a heavy smoker half a pack of cigarettes every day. The patient is COPD oxygen dependent. Medical Evaluation Reviewed: Hospitalist Analisaal Pending [facility] Family History: deferred Social History: lives alone with her cat good relationship w/ children Substance History: denies Trauma History: deferred Diagnostics Vital Signs (24Hr): Vital Signs - 24 hr 09/26/24 16:58 09/26/24 20:29 09/26/24 23:40 Temperature 97.4 F 97.6 F 98 F Pulse Rate 70 70 75 Respiratory Rate 16 18 16 Blood Pressure 127/86 124/74 154/89 H Pulse Oximetry 95 93 94 Oxygen Delivery Method Nasal Cannula Room Air Nasal Cannula Oxygen Flow Rate 3 3 09/27/24 09:00 09/27/24 09:29 Temperature 97.6 F Pulse Rate 69 69 Respiratory Rate Blood Pressure 138/88 138/88 Pulse Oximetry 90 L Oxygen Delivery Method Nasal Cannula Oxygen Flow Rate 3 BMI result Body Mass Index 40.4 Labs 09/26/24 14:45 09/26/24 22:14 Labs: Laboratory Results - last 48 hr 09/26/24 09/26/24 09/26/24 14:28 14:36 14:45 WBC 8.4 RBC 4.42 Hgb 14.4 Hct 43.2 MCV 97.7 MCH 32.6 MCHC 33.3 RDW 13.4 Plt Count 388 MPV 9.2 L Immature Gran % (Auto) 0.2 Neut % (Auto) 63.7 Lymph % (Auto) 25.5 [place] % (Auto) 8.1 Eos % (Auto) 1.7 Baso % (Auto) 0.8 Lymph # (Auto) 2.1 Victoria # (Auto) 0.7 Eos # (Auto) 0.1 Baso # (Auto) 0.1 Abs Immat Gran (auto) 0.02 Absolute Neuts (auto) 5.3 Absolute Nucleated RBC 0.000 Nucleated RBC % (auto) 0.0 Sodium 140 Potassium 4.1 Chloride 104 Carbon Dioxide 29 Anion Gap 11 L BUN 12 Creatinine 0.85 Estim Creat Clear Calc 90.7 Estimated GFR > 60 Random Glucose 95 Estimat Average Glucose Hemoglobin A1c % Calcium 10.0 Total Bilirubin 0.3 AST 32 H ALT 18 Alkaline Phosphatase 111 Total Protein 7.8 Albumin 4.4 Triglycerides Cholesterol LDL Cholesterol, Calc HDL Cholesterol Urine Color Yellow Urine Appearance Clear Urine pH 5.5 Ur Specific [place] 1.010 Urine Protein Negative Urine Glucose (UA) Negative Urine Ketones Negative Urine Blood Small (1+) H Urine Nitrite Negative Ur Leukocyte Esterase Negative Urine RBC 0-2 Urine WBC 0-5 Ur Squamous Epith Cells 0-2 Urine Bacteria None Seen Hyaline Casts 0-2 Salicylates < 5.0 L Urine Opiates Screen Not Detected Ur Buprenorphine Scrn Not Detected Ur Oxycodone Screen Not Detected Urine Methadone Screen Not Detected Urine Fentanyl Screen Not Detected Acetaminophen < 3 Ur Barbiturates Screen Not Detected Ur Phencyclidine Scrn Not Detected Ur Amphetamines Screen Not Detected U Benzodiazepines Scrn Not Detected Urine Cocaine Screen Not Detected U Marijuana (THC) Screen Not Detected Ethyl Alcohol < 10 COVID-19 (CHRISTINE) Negative COVID-19 Clin Com See Note 09/26/24 09/27/24 09/27/24 22:14 13:20 13:21 WBC RBC Hgb Hct MCV MCH MCHC RDW Plt Count MPV Immature Gran % (Auto) Neut % (Auto) Lymph % (Auto) Victoria % (Auto) Eos % (Auto) Baso % (Auto) Lymph # (Auto) [place] # (Auto) Eos # (Auto) Baso # (Auto) Abs Immat Gran (auto) Absolute Neuts (auto) Absolute Nucleated RBC Nucleated RBC % (auto) Sodium 142 Potassium 3.8 Chloride 104 Carbon Dioxide 32 H Anion Gap 10 L BUN 17 H Creatinine 1.05 Estim Creat Clear Calc 73.4 Estimated GFR 53 Random Glucose 93 Estimat Average Glucose 108 Hemoglobin A1c % 5.4 Calcium 9.7 Total Bilirubin 0.2 AST 23 ALT 14 Alkaline Phosphatase 105 Total Protein 7.2 Albumin 4.0 Triglycerides 137 Cholesterol 136 LDL Cholesterol, Calc 60 HDL Cholesterol 49 Urine Color Urine Appearance Urine pH Ur Specific [place] Urine Protein Urine Glucose (UA) Urine Ketones Urine Blood Urine Nitrite Ur Leukocyte Esterase Urine RBC Urine WBC Ur Squamous Epith Cells Urine Bacteria Hyaline Casts Salicylates Urine Opiates Screen Ur Buprenorphine Scrn Ur Oxycodone Screen Urine Methadone Screen Urine Fentanyl Screen Acetaminophen Ur Barbiturates Screen Ur Phencyclidine Scrn Ur Amphetamines Screen U Benzodiazepines Scrn Urine Cocaine Screen U Marijuana (THC) Screen Ethyl Alcohol COVID-19 (CHRISTINE) COVID-19 Clin Com Meds/Allergies Meds Home Medications ?Medication ?Instructions ?Recorded ?Confirmed ?Type lorazepam 1 mg tablet 1 mg PO TID 08/19/24 09/26/24 History atorvastatin 80 mg tablet 40 mg PO BEDTIME 09/26/24 09/26/24 History bumetanide 1 mg tablet 2 mg PO DAILY 09/26/24 09/26/24 History cefpodoxime 100 mg tablet 100 mg PO BID 09/26/24 09/26/24 History cholecalciferol (vitamin D3) 25 50 mcg PO DAILY 09/26/24 09/26/24 History mcg (1,000 unit) tablet estradiol 0.01% (0.1 mg/gram) 1 g vaginal 2XW 09/26/24 09/26/24 History vaginal cream ferrous sulfate 325 mg (65 mg 325 mg PO DAILY 09/26/24 09/26/24 History iron) tablet,delayed release methenamine hippurate 1,000 mg PO DAILY 09/26/24 09/26/24 History oxcarbazepine 300 mg tablet 600 mg PO BID 09/26/24 09/26/24 History potassium chloride 10 mEq 10 meq PO 1XD 09/26/24 09/26/24 History tablet,extended release(part/cryst) trazodone 50 mg tablet 25 mg PO TIDWMEAL 09/26/24 09/26/24 History Allergies Allergies Allergy/AdvReac Type Severity Reaction Status Date / Time sertraline [From Zoloft] Allergy Intermediate Nausea and Verified 09/26/24 14:12 Vomiting Penicillins Allergy Mild RASH Verified 09/26/24 14:12 ciprofloxacin AdvReac Intermediate Nausea and Verified 09/26/24 14:12 Vomiting Mental Status Exam Mental Status Exam Narrative: Pt is alert and oriented; behavior is cooperative, friendly and calm; patient is not in distress; dressed in hospital attire with unkempt hair but adequate hygiene; mood is described as depressed and affect congruent, somewhat downcast; eye contact appropriate; Speech is normal rate, volume and prosody and not pressured; some psychomotor retardation present; thought process is organized and goal directed; Thought content is on depression; otherwise pertinent to relevant topics and without any delusional content, paranoid ideations or grandiosity; +SI; no HI; Denies AVH and there is no evidence of perceptual disturbance. Patients insight and judgment impaired. Assessment & Plan Assessment & Plan (1) Bipolar disorder: Status: Acute Code(s): F31.9 - Bipolar disorder, unspecified Plan Pt is a 64 yo female, with hx of Bipolar disorder, recently dc'd from , self presents for SI. Pt says she was feeling good when she was discharged a few weeks ago; she's not sure why but started to become depressed with return of negative self talk. Depressed worsened and she developed SI with a plan that she will not reveal. She wanted to stay safe so she self-presented. Pt reports continued adherence with medications. Pt considers it possible she became lonely these past weeks since unable to go to her day program. Denies AVH. formulation/clinical reasoning: not sure trigger for return of depression discussed medication options, risks/side-effects and pt decided on Wellbutrin trial over prozac increase plan: CV q15 Start Wellbutrin XL 150mg continue home meds on home 02 Patient educated on: diagnosis and medication risk/benefits Informed Consent: understands Reason for continued inpatient stay Substantial Risk for: rapid decompensation Statement Statement: I have reviewed the history and physical and performed a pertinent examination on my patient. No changes have occurred unless specified. If the History and Physical was not performed prior to admission, the Hospitalist's service will be consulted for completing the admission physical. Time Spent With Patient Time: Total time managing care of this patient today ____ minutes.
[2024-09-27] MEDS: Nicotine Polacrilex Lozenge 4 MG LOZENGE BUCCAL (19:12)
[2024-09-27 20:40] VITALS: BP 118/74; PULSE 80; RESP 18; TEMP 36.4; O2SAT 94
[2024-09-27] MEDS: Prazosin HCL 1 MG CAPSULE 2 MG PO (20:49)
[2024-09-27] MEDS: Melatonin 3 MG TABLET PO (20:50)
[2024-09-27] MEDS: Atorvastatin Calcium 40 MG TABLET PO (20:51)
[2024-09-27] MEDS: QUEtiapine Fumarate 400 MG TABLET PO (20:51)
[2024-09-28 09:26] VITALS: BP 136/80; PULSE 85; RESP 16; TEMP 36.4; O2SAT 95
[2024-09-28] MEDS: Fluticasone/Umeclidinium/Vilanterol 100/62.5/25 BLST.W.DEV 1 PUFF INHALE (09:27)
[2024-09-28] MEDS: Bumetanide 1 MG TABLET 2 MG PO (09:28)
[2024-09-28] MEDS: Aspirin 81 MG TAB.CHEW PO (09:28)
[2024-09-28] MEDS: FLUoxetine HCl 20 MG CAPSULE PO (09:29)
[2024-09-28] MEDS: LORazepam 1 MG TABLET PO ×3 (09:29→20:48)
[2024-09-28] MEDS: cefuroxime axetiL 250 MG TABLET PO ×2 (09:29→20:48)
[2024-09-28] MEDS: Methenamine Hippurate 1 GM TABLET PO (09:30)
[2024-09-28] MEDS: Metoprolol Succinate ER 25 MG TAB.ER.24H PO (09:30)
[2024-09-28] MEDS: OXcarbazepine 300 MG TABLET 600 MG PO ×2 (09:31→20:50)
[2024-09-28] MEDS: Apixaban 5 MG TABLET PO ×2 (09:32→20:50)
[2024-09-28] MEDS: traZODone HCL 25 MG HALFTAB PO ×3 (09:32→17:11)
[2024-09-28] MEDS: buPROPion HCl XL 150 MG TAB.ER.24H PO (09:32)
[2024-09-28] MEDS: metFORMIN HCl 500 MG TABLET PO (09:33)
[2024-09-28] MEDS: Cyclobenzaprine HCl 10 MG TABLET PO ×2 (09:34→20:50)
[2024-09-28] MEDS: Cholecalciferol (Vitamin D3) 25 MCG TABLET 50 MCG PO (09:34)
[2024-09-28] MEDS: Potassium Chloride ER 10 MEQ TABLET.ER PO (09:35)
[2024-09-28] MEDS: Gabapentin 400 MG CAPSULE 800 MG PO ×3 (09:35→20:49)
[2024-09-28] MEDS: Ferrous Sulfate 324 MG TABLET.DR PO (09:35)
[2024-09-28] MEDS: Nicotine 21 MG PATCH.TD24 TRANSDERMA (09:49)
[2024-09-28] MEDS: hydrOXYzine HCL 25 MG TABLET PO (12:32)
--- NOTE | 2024-09-28 15:03 | P.PNPSI_ITS ---
Subjective Subjective Date of Service: 09/28/24 Reason For Visit: SI Interim History: Met with patient; discussed with team still depressed but says mood a little better; SI less frequent, waning. Says feeling Jumpy inside today and agrees it might be due to Wellbutrin; however, she wants to remain on it and see if she adjusts to it Mental Status Exam Mental Status Exam Narrative: Pt is alert and oriented; behavior is cooperative, friendly and calm; patient is not in distress; dressed in hospital attire with unkempt hair but adequate hygiene; mood is described as depressed and affect congruent, somewhat downcast; eye contact appropriate; Speech is normal rate, volume and prosody and not pressured; some psychomotor retardation present; thought process is organized and goal directed; Thought content is on depression; otherwise pertinent to relevant topics and without any delusional content, paranoid ideations or grandiosity; +SI, but less; no HI; Denies AVH and there is no evidence of perceptual disturbance. Patients insight and judgment impaired. Diagnostics Vital Signs (24Hr): Vital Signs - 24 hr 09/27/24 20:40 09/28/24 09:26 Temperature 97.5 F 97.6 F Pulse Rate 80 85 Respiratory Rate 18 16 Blood Pressure 118/74 136/80 Pulse Oximetry 94 95 Oxygen Delivery Method Room Air Nasal Cannula Oxygen Flow Rate 3 BMI result Body Mass Index 40.4 Labs 09/26/24 14:45 09/26/24 22:14 Labs: Laboratory Results - last 48 hr 09/26/24 09/26/24 09/26/24 14:28 14:45 22:14 Sodium 140 142 Potassium 4.1 3.8 Chloride 104 104 Carbon Dioxide 29 32 H Anion Gap 11 L 10 L BUN 12 17 H Creatinine 0.85 1.05 Estim Creat Clear Calc 90.7 73.4 Estimated GFR > 60 53 Random Glucose 95 93 Estimat Average Glucose Hemoglobin A1c % Calcium 10.0 9.7 Total Bilirubin 0.3 0.2 AST 32 H 23 ALT 18 14 Alkaline Phosphatase 111 105 Total Protein 7.8 7.2 Albumin 4.4 4.0 Triglycerides Cholesterol LDL Cholesterol, Calc HDL Cholesterol Salicylates < 5.0 L Urine Opiates Screen Not Detected Ur Buprenorphine Scrn Not Detected Ur Oxycodone Screen Not Detected Urine Methadone Screen Not Detected Urine Fentanyl Screen Not Detected Acetaminophen < 3 Ur Barbiturates Screen Not Detected Ur Phencyclidine Scrn Not Detected Ur Amphetamines Screen Not Detected U Benzodiazepines Scrn Not Detected Urine Cocaine Screen Not Detected U Marijuana (THC) Screen Not Detected Ethyl Alcohol < 10 09/27/24 09/27/24 13:20 13:21 Sodium Potassium Chloride Carbon Dioxide Anion Gap BUN Creatinine Estim Creat Clear Calc Estimated GFR Random Glucose Estimat Average Glucose 108 Hemoglobin A1c % 5.4 Calcium Total Bilirubin AST ALT Alkaline Phosphatase Total Protein Albumin Triglycerides 137 Cholesterol 136 LDL Cholesterol, Calc 60 HDL Cholesterol 49 Salicylates Urine Opiates Screen Ur Buprenorphine Scrn Ur Oxycodone Screen Urine Methadone Screen Urine Fentanyl Screen Acetaminophen Ur Barbiturates Screen Ur Phencyclidine Scrn Ur Amphetamines Screen U Benzodiazepines Scrn Urine Cocaine Screen U Marijuana (THC) Screen Ethyl Alcohol Medications Medications Current Medications Acetaminophen (Acetaminophen 325 Mg Tablet) 650 mg PO Q6H PRN PRN Reason: Headache/Pain, Scale 1-10 Last Admin: 09/27/24 09:58 Dose: 650 mg Al Hydroxide/Mg Hydroxide (Magnesium Hydrox/Alum Hydrox 30 Ml Oral.Susp) 30 ml PO Q6H PRN PRN Reason: Heartburn/Nausea Albuterol Sulfate (Albuterol Sulfate 90 Mcg 8 Gm Inhaler) 2 puff INHALE Q4H PRN PRN Reason: Shortness Of Breath/Wheezing Apixaban (Apixaban 5 Mg Tablet) 5 mg PO BID [facility] Last Admin: 09/28/24 09:32 Dose: 5 mg Aspirin (Aspirin 81 Mg Tab.Chew) 81 mg PO DAILY [facility] Last Admin: 09/28/24 09:28 Dose: 81 mg Atorvastatin Calcium (Atorvastatin Calcium 40 Mg Tablet) 40 mg PO BEDTIME [facility] Last Admin: 09/27/24 20:51 Dose: 40 mg Bumetanide (Bumetanide 1 Mg Tablet) 2 mg PO DAILY [facility]; Protocol Last Admin: 09/28/24 09:28 Dose: 2 mg Bupropion HCl (Bupropion Hcl Xl 150 Mg Tab.Er.24h) 150 mg PO DAILY [facility] Last Admin: 09/28/24 09:32 Dose: 150 mg Cefuroxime Axetil (Cefuroxime Axetil 250 Mg Tablet) 250 mg PO BID [facility] Last Admin: 09/28/24 09:29 Dose: 250 mg Cyclobenzaprine HCl (Cyclobenzaprine Hcl 10 Mg Tablet) 10 mg PO BID [facility] Last Admin: 09/28/24 09:34 Dose: 10 mg Ferrous Sulfate (Ferrous Sulfate 324 Mg Tablet.Dr) 324 mg PO DAILY [facility] Last Admin: 09/28/24 09:35 Dose: 324 mg Fluoxetine HCl (Fluoxetine Hcl 20 Mg Capsule) 20 mg PO DAILY [facility] Last Admin: 09/28/24 09:29 Dose: 20 mg Fluticasone/Umeclidinium/Vilanterol (Fluticasone/Umeclidinium/Vilanterol 100/62.5/25 Blst.W.Dev) 1 puff INHALE RDAILY [facility] Last Admin: 09/28/24 09:27 Dose: 1 puff Gabapentin (Gabapentin 400 Mg Capsule) 800 mg PO TID [facility] Last Admin: 09/28/24 14:34 Dose: 800 mg Hydroxyzine HCl (Hydroxyzine Hcl 25 Mg Tablet) 25 mg PO Q6H PRN PRN Reason: mild anxiety Last Admin: 09/28/24 12:32 Dose: 25 mg Lorazepam (Lorazepam 1 Mg Tablet) 1 mg PO TID [facility] Last Admin: 09/28/24 14:34 Dose: 1 mg Magnesium Hydroxide (Milk Of Magnesia 30 Ml Oral.Susp) 30 ml PO DAILY PRN PRN Reason: Constipation Melatonin (Melatonin 3 Mg Tablet) 3 mg PO BEDTIME [facility] Last Admin: 09/27/24 20:50 Dose: 3 mg Metformin HCl (Metformin Hcl 500 Mg Tablet) 500 mg PO DAILY [facility] Last Admin: 09/28/24 09:33 Dose: 500 mg Methenamine Hippurate (Methenamine Hippurate 1 Gm Tablet) 1 gm PO DAILY [facility] Last Admin: 09/28/24 09:30 Dose: 1 gm Metoprolol Succinate (Metoprolol Succinate Er 25 Mg Tab.Er.24h) 25 mg PO DAILY [facility]; Protocol Last Admin: 09/28/24 09:30 Dose: 25 mg Nicotine (Nicotine 21 Mg Patch.Td24) 21 mg TRANSDERMA DAILY PRN PRN Reason: smoking cessation Last Admin: 09/28/24 09:49 Dose: 21 mg Nicotine Polacrilex (Nicotine Polacrilex Lozenge 4 Mg Lozenge) 4 mg BUCCAL Q2H PRN PRN Reason: Nicotine Cravings Last Admin: 09/27/24 19:12 Dose: 4 mg Oxcarbazepine (Oxcarbazepine 300 Mg Tablet) 600 mg PO BID [facility] Last Admin: 09/28/24 09:31 Dose: 600 mg Potassium Chloride (Potassium Chloride Er 10 Meq Tablet.Er) 10 meq PO DAILY [facility] Last Admin: 09/28/24 09:35 Dose: 10 meq Prazosin HCl (Prazosin Hcl 1 Mg Capsule) 2 mg PO BEDTIME [facility]; Protocol Last Admin: 09/27/24 20:49 Dose: 2 mg Quetiapine Fumarate (Quetiapine Fumarate 400 Mg Tablet) 400 mg PO BEDTIME AMIRAH Last Admin: 09/27/24 20:51 Dose: 400 mg Trazodone HCl (Trazodone Hcl 25 Mg Halftab) 25 mg PO TIDWM [facility] Last Admin: 09/28/24 12:22 Dose: 25 mg Vitamin D (Cholecalciferol (Vitamin D3) 25 Mcg Tablet) 50 mcg PO DAILY [facility] Last Admin: 09/28/24 09:34 Dose: 50 mcg Allergies Allergies Allergy/AdvReac Type Severity Reaction Status Date / Time sertraline [From Zoloft] Allergy Intermediate Nausea and Verified 09/26/24 14:12 Vomiting Penicillins Allergy Mild RASH Verified 09/26/24 14:12 ciprofloxacin AdvReac Intermediate Nausea and Verified 09/26/24 14:12 Vomiting Assessment & Plan Assessment & Plan (1) Bipolar disorder: Status: Acute Code(s): F31.9 - Bipolar disorder, unspecified Plan Pt is a 64 yo female, with hx of Bipolar disorder, recently dc'd from , self presents for SI. Pt says she was feeling good when she was discharged a few weeks ago; she's not sure why but started to become depressed with return of negative self talk. Depressed worsened and she developed SI with a plan that she will not reveal. She wanted to stay safe so she self-presented. Pt reports continued adherence with medications. Pt considers it possible she became lonely these past weeks since unable to go to her day program. Denies AVH. formulation/clinical reasoning: not sure trigger for return of depression discussed medication options, risks/side-effects and pt decided on Wellbutrin trial over prozac increase Hospital course: 09/28 still depressed but says mood a little better; SI less frequent, waning. Says feeling Jumpy inside today and agrees it might be due to Wellbutrin; however, she wants to remain on it and see if she adjusts to it plan: CV q15 Continue Wellbutrin XL 150mg continue home meds on home 02 Patient educated on: diagnosis and medication risk/benefits Informed Consent: understands Reason for continued inpatient stay Substantial Risk for: rapid decompensation Time Spent With Patient Time: Total time managing care of this patient today ____ minutes.
[2024-09-28 19:25] VITALS: BP 135/67; PULSE 77; RESP 18; TEMP 36.1; O2SAT 95
[2024-09-28 20:49] VITALS: BP 120/79
[2024-09-28] MEDS: QUEtiapine Fumarate 400 MG TABLET PO (20:49)
[2024-09-28] MEDS: Prazosin HCL 1 MG CAPSULE 2 MG PO (20:49)
[2024-09-28] MEDS: Atorvastatin Calcium 40 MG TABLET PO (20:50)
[2024-09-28] MEDS: Melatonin 3 MG TABLET PO (20:51)
[2024-09-29 07:49] VITALS: BP 118/74; PULSE 83; RESP 16; TEMP 36.4; O2SAT 93
[2024-09-29] MEDS: Fluticasone/Umeclidinium/Vilanterol 100/62.5/25 BLST.W.DEV 1 PUFF INHALE (08:15)
[2024-09-29] MEDS: Gabapentin 400 MG CAPSULE 800 MG PO ×3 (08:15→20:39)
[2024-09-29] MEDS: LORazepam 1 MG TABLET PO ×3 (08:16→20:40)
[2024-09-29] MEDS: Cyclobenzaprine HCl 10 MG TABLET PO ×2 (08:16→20:40)
[2024-09-29] MEDS: Apixaban 5 MG TABLET PO ×2 (08:16→20:40)
[2024-09-29] MEDS: Cholecalciferol (Vitamin D3) 25 MCG TABLET 50 MCG PO (08:16)
[2024-09-29] MEDS: buPROPion HCl XL 150 MG TAB.ER.24H PO (08:16)
[2024-09-29] MEDS: Methenamine Hippurate 1 GM TABLET PO (08:17)
[2024-09-29] MEDS: Ferrous Sulfate 324 MG TABLET.DR PO (08:18)
[2024-09-29] MEDS: OXcarbazepine 300 MG TABLET 600 MG PO ×2 (08:18→20:40)
[2024-09-29] MEDS: traZODone HCL 25 MG HALFTAB PO ×3 (08:18→17:03)
[2024-09-29] MEDS: Aspirin 81 MG TAB.CHEW PO (08:19)
[2024-09-29] MEDS: metFORMIN HCl 500 MG TABLET PO (08:20)
[2024-09-29] MEDS: FLUoxetine HCl 20 MG CAPSULE PO (08:20)
[2024-09-29] MEDS: Metoprolol Succinate ER 25 MG TAB.ER.24H PO (08:21)
[2024-09-29] MEDS: cefuroxime axetiL 250 MG TABLET PO ×2 (08:21→20:39)
[2024-09-29] MEDS: Potassium Chloride ER 10 MEQ TABLET.ER PO (08:22)
[2024-09-29] MEDS: Nicotine 21 MG PATCH.TD24 TRANSDERMA (08:58)
[2024-09-29] MEDS: Lidocaine 4 % Patch ADH..PATCH 1 PATCH TRANSDERMA (11:22)
[2024-09-29] MEDS: hydrOXYzine HCL 25 MG TABLET PO (13:20)
--- NOTE | 2024-09-29 14:54 | P.PNPSI_ITS ---
Subjective Subjective Date of Service: 09/29/24 Reason For Visit: SI Interim History: in bed, 1:1 at bedside. states she is still suicidal, won't divulge plan. c/o low back pain, agreeable to have lidocaine patch added. per staff, taking meds. SI not at this particular moment. social, visible, slept about 7+ hours. Mental Status Exam Mental Status Exam Narrative: calm, cooperative, pleasant. adequately dressed and groomed. no PMA/PMR. speech nml rate, amount, loudness, tone, latency. thoughts linear and logical, affect constricted, normo-intense, non-labile. mood depressed. +SI, refuses to divulge plan. no HI/AVH expressed. Diagnostics Vital Signs (24Hr): Vital Signs - 24 hr 09/28/24 19:25 09/28/24 20:49 09/29/24 07:49 Temperature 96.9 F 97.5 F Pulse Rate 77 83 Respiratory Rate 18 16 Blood Pressure 135/67 120/79 118/74 Pulse Oximetry 95 93 Oxygen Delivery Method Nasal Cannula Room Air Oxygen Flow Rate 3 BMI result Body Mass Index 40.4 Labs 09/26/24 14:45 09/26/24 22:14 Medications Medications Current Medications Acetaminophen (Acetaminophen 325 Mg Tablet) 650 mg PO Q6H PRN PRN Reason: Headache/Pain, Scale 1-10 Last Admin: 09/27/24 09:58 Dose: 650 mg Al Hydroxide/Mg Hydroxide (Magnesium Hydrox/Alum Hydrox 30 Ml Oral.Susp) 30 ml PO Q6H PRN PRN Reason: Heartburn/Nausea Albuterol Sulfate (Albuterol Sulfate 90 Mcg 8 Gm Inhaler) 2 puff INHALE Q4H PRN PRN Reason: Shortness Of Breath/Wheezing Apixaban (Apixaban 5 Mg Tablet) 5 mg PO BID [facility] Last Admin: 09/29/24 08:16 Dose: 5 mg Aspirin (Aspirin 81 Mg Tab.Chew) 81 mg PO DAILY [facility] Last Admin: 09/29/24 08:19 Dose: 81 mg Atorvastatin Calcium (Atorvastatin Calcium 40 Mg Tablet) 40 mg PO BEDTIME [facility] Last Admin: 09/28/24 20:50 Dose: 40 mg Bumetanide (Bumetanide 1 Mg Tablet) 2 mg PO DAILY [facility]; Protocol Last Admin: 09/29/24 08:19 Dose: Not Given Bupropion HCl (Bupropion Hcl Xl 150 Mg Tab.Er.24h) 150 mg PO DAILY [facility] Last Admin: 09/29/24 08:16 Dose: 150 mg Cefuroxime Axetil (Cefuroxime Axetil 250 Mg Tablet) 250 mg PO BID [facility] Last Admin: 09/29/24 08:21 Dose: 250 mg Cyclobenzaprine HCl (Cyclobenzaprine Hcl 10 Mg Tablet) 10 mg PO BID [facility] Last Admin: 09/29/24 08:16 Dose: 10 mg Ferrous Sulfate (Ferrous Sulfate 324 Mg Tablet.Dr) 324 mg PO DAILY [facility] Last Admin: 09/29/24 08:18 Dose: 324 mg Fluoxetine HCl (Fluoxetine Hcl 20 Mg Capsule) 20 mg PO DAILY [facility] Last Admin: 09/29/24 08:20 Dose: 20 mg Fluticasone/Umeclidinium/Vilanterol (Fluticasone/Umeclidinium/Vilanterol 100/62.5/25 Blst.W.Dev) 1 puff INHALE RDAILY [facility] Last Admin: 09/29/24 08:15 Dose: 1 puff Gabapentin (Gabapentin 400 Mg Capsule) 800 mg PO TID [facility] Last Admin: 09/29/24 08:15 Dose: 800 mg Hydroxyzine HCl (Hydroxyzine Hcl 25 Mg Tablet) 25 mg PO Q6H PRN PRN Reason: mild anxiety Last Admin: 09/29/24 13:20 Dose: 25 mg Lidocaine (Lidocaine 4 % Patch Adh..Patch) 1 patch TRANSDERMA DAILY [facility]; Protocol Last Admin: 09/29/24 11:22 Dose: 1 patch Lorazepam (Lorazepam 1 Mg Tablet) 1 mg PO TID [facility] Last Admin: 09/29/24 08:16 Dose: 1 mg Magnesium Hydroxide (Milk Of Magnesia 30 Ml Oral.Susp) 30 ml PO DAILY PRN PRN Reason: Constipation Melatonin (Melatonin 3 Mg Tablet) 3 mg PO BEDTIME [facility] Last Admin: 09/28/24 20:51 Dose: 3 mg Metformin HCl (Metformin Hcl 500 Mg Tablet) 500 mg PO DAILY [facility] Last Admin: 09/29/24 08:20 Dose: 500 mg Methenamine Hippurate (Methenamine Hippurate 1 Gm Tablet) 1 gm PO DAILY [facility] Last Admin: 09/29/24 08:17 Dose: 1 gm Metoprolol Succinate (Metoprolol Succinate Er 25 Mg Tab.Er.24h) 25 mg PO DAILY [facility]; Protocol Last Admin: 09/29/24 08:21 Dose: 25 mg Nicotine (Nicotine 21 Mg Patch.Td24) 21 mg TRANSDERMA DAILY [facility] Nicotine Polacrilex (Nicotine Polacrilex Lozenge 4 Mg Lozenge) 4 mg BUCCAL Q2H PRN PRN Reason: Nicotine Cravings Last Admin: 09/27/24 19:12 Dose: 4 mg Oxcarbazepine (Oxcarbazepine 300 Mg Tablet) 600 mg PO BID [facility] Last Admin: 09/29/24 08:18 Dose: 600 mg Potassium Chloride (Potassium Chloride Er 10 Meq Tablet.Er) 10 meq PO DAILY [facility] Last Admin: 09/29/24 08:22 Dose: 10 meq Prazosin HCl (Prazosin Hcl 1 Mg Capsule) 2 mg PO BEDTIME [facility]; Protocol Last Admin: 09/28/24 20:49 Dose: 2 mg Quetiapine Fumarate (Quetiapine Fumarate 400 Mg Tablet) 400 mg PO BEDTIME [facility] Last Admin: 09/28/24 20:49 Dose: 400 mg Trazodone HCl (Trazodone Hcl 25 Mg Halftab) 25 mg PO TIDWM [facility] Last Admin: 09/29/24 12:05 Dose: 25 mg Vitamin D (Cholecalciferol (Vitamin D3) 25 Mcg Tablet) 50 mcg PO DAILY [facility] Last Admin: 09/29/24 08:16 Dose: 50 mcg Allergies Allergies Allergy/AdvReac Type Severity Reaction Status Date / Time sertraline [From Zoloft] Allergy Intermediate Nausea and Verified 09/26/24 14:12 Vomiting Penicillins Allergy Mild RASH Verified 09/26/24 14:12 ciprofloxacin AdvReac Intermediate Nausea and Verified 09/26/24 14:12 Vomiting Assessment & Plan Assessment & Plan (1) Bipolar disorder: Status: Acute Code(s): F31.9 - Bipolar disorder, unspecified Plan Pt is a 64 yo female, with hx of Bipolar disorder, recently dc'd from , self presents for SI. Pt says she was feeling good when she was discharged a few weeks ago; she's not sure why but started to become depressed with return of negative self talk. Depressed worsened and she developed SI with a plan that she will not reveal. She wanted to stay safe so she self-presented. Pt reports continued adherence with medications. Pt considers it possible she became lonely these past weeks since unable to go to her day program. Denies AVH. formulation/clinical reasoning: not sure trigger for return of depression discussed medication options, risks/side-effects and pt decided on Wellbutrin trial over prozac increase Hospital course: 09/27: start Wellbutrin XL 150mg. continue home meds. on home . 09/28: still depressed but says mood a little better; SI less frequent, waning. Says feeling Jumpy inside today and agrees it might be due to Wellbutrin; however, she wants to remain on it and see if she adjusts to it. 09/29: depressed, endorsing SI but won't divulge plan. continue current mgmt. T/C increase in wellbutrin to 300 mg daily after 3 doses. risk of Sz reviewed with pt. Reason for continued inpatient stay Substantial Risk for: harm to self and inability to function Time Spent With Patient Time: Total time managing care of this patient today __25__ minutes.
[2024-09-29 19:50] VITALS: BP 101/62; PULSE 75; RESP 16; TEMP 36.8; O2SAT 95
[2024-09-29] MEDS: Prazosin HCL 1 MG CAPSULE 2 MG PO (20:39)
[2024-09-29] MEDS: QUEtiapine Fumarate 400 MG TABLET PO (20:40)
[2024-09-29] MEDS: Atorvastatin Calcium 40 MG TABLET PO (20:41)
[2024-09-29] MEDS: Melatonin 3 MG TABLET PO (20:41)
[2024-09-30 07:50] VITALS: BP 111/58; PULSE 69; RESP 18; TEMP 36.4; O2SAT 95
[2024-09-30 09:35] VITALS: BP 111/58
[2024-09-30] MEDS: Bumetanide 1 MG TABLET 2 MG PO (09:35)
[2024-09-30] MEDS: Gabapentin 400 MG CAPSULE 800 MG PO ×3 (09:35→20:07)
[2024-09-30] MEDS: LORazepam 1 MG TABLET PO ×3 (09:36→20:08)
[2024-09-30] MEDS: Apixaban 5 MG TABLET PO ×2 (09:36→20:07)
[2024-09-30] MEDS: Methenamine Hippurate 1 GM TABLET PO (09:36)
[2024-09-30] MEDS: FLUoxetine HCl 20 MG CAPSULE PO (09:36)
[2024-09-30] MEDS: Cyclobenzaprine HCl 10 MG TABLET PO ×2 (09:37→20:08)
[2024-09-30] MEDS: Ferrous Sulfate 324 MG TABLET.DR PO (09:37)
[2024-09-30] MEDS: metFORMIN HCl 500 MG TABLET PO (09:37)
[2024-09-30] MEDS: traZODone HCL 25 MG HALFTAB PO ×3 (09:37→16:33)
[2024-09-30] MEDS: buPROPion HCl XL 150 MG TAB.ER.24H PO (09:38)
[2024-09-30] MEDS: OXcarbazepine 300 MG TABLET 600 MG PO ×2 (09:38→20:09)
[2024-09-30] MEDS: Aspirin 81 MG TAB.CHEW PO (09:38)
[2024-09-30] MEDS: cefuroxime axetiL 250 MG TABLET PO ×2 (09:38→20:08)
[2024-09-30] MEDS: Potassium Chloride ER 10 MEQ TABLET.ER PO (09:38)
[2024-09-30 09:39] VITALS: BP 111/58; PULSE 69
[2024-09-30] MEDS: Cholecalciferol (Vitamin D3) 25 MCG TABLET 50 MCG PO (09:39)
[2024-09-30] MEDS: Metoprolol Succinate ER 25 MG TAB.ER.24H PO (09:39)
[2024-09-30] MEDS: Fluticasone/Umeclidinium/Vilanterol 100/62.5/25 BLST.W.DEV 1 PUFF INHALE (09:40)
[2024-09-30] MEDS: Lidocaine 4 % Patch ADH..PATCH 1 PATCH TRANSDERMA (09:42)
[2024-09-30] MEDS: Nicotine 21 MG PATCH.TD24 TRANSDERMA (09:43)
[2024-09-30] MEDS: hydrOXYzine HCL 25 MG TABLET PO (12:02)
--- NOTE | 2024-09-30 13:49 | P.PNPSI_ITS ---
Subjective Subjective Date of Service: 09/30/24 Reason For Visit: SI Interim History: in bed resting, O2 on, sitter at bedside. remains depressed, no SI today. states her son paid her friends so she no longer has her debts to them hanging over her head. they were paid yesterday. pt unable to link her admission to the pressure she received last week from them for their money back. doesn't know what we can do for her or what needs to change for her to discharge. agreeable to increase wellbutrin to 300 mg daily as of tomorrow. per staff, on 1:1 for O2. anx/dep 7. sedated in afternoon. B/L LE edema, refusing bumex and TEDS. Mental Status Exam Mental Status Exam Narrative: calm, cooperative, pleasant. adequately dressed and groomed. general PMR. speech nml rate, amount, loudness. decr tone, incr latency. thoughts linear and logical, affect constricted, normo-intense, non-labile. mood depressed. no SI. no HI/AVH expressed. Diagnostics Vital Signs (24Hr): Vital Signs - 24 hr 09/29/24 19:50 09/30/24 07:50 09/30/24 09:35 Temperature 98.2 F 97.6 F Pulse Rate 75 69 Respiratory Rate 16 18 Blood Pressure 101/62 111/58 L 111/58 L Pulse Oximetry 95 95 Oxygen Delivery Method Nasal Cannula Room Air 09/30/24 09:39 Temperature Pulse Rate 69 Respiratory Rate Blood Pressure 111/58 L Pulse Oximetry Oxygen Delivery Method BMI result Body Mass Index 40.4 Labs 09/26/24 14:45 09/26/24 22:14 Medications Medications Current Medications Acetaminophen (Acetaminophen 325 Mg Tablet) 650 mg PO Q6H PRN PRN Reason: Headache/Pain, Scale 1-10 Last Admin: 09/27/24 09:58 Dose: 650 mg Al Hydroxide/Mg Hydroxide (Magnesium Hydrox/Alum Hydrox 30 Ml Oral.Susp) 30 ml PO Q6H PRN PRN Reason: Heartburn/Nausea Albuterol Sulfate (Albuterol Sulfate 90 Mcg 8 Gm Inhaler) 2 puff INHALE Q4H PRN PRN Reason: Shortness Of Breath/Wheezing Apixaban (Apixaban 5 Mg Tablet) 5 mg PO BID [facility] Last Admin: 09/30/24 09:36 Dose: 5 mg Aspirin (Aspirin 81 Mg Tab.Chew) 81 mg PO DAILY [facility] Last Admin: 09/30/24 09:38 Dose: 81 mg Atorvastatin Calcium (Atorvastatin Calcium 40 Mg Tablet) 40 mg PO BEDTIME [facility] Last Admin: 09/29/24 20:41 Dose: 40 mg Bumetanide (Bumetanide 1 Mg Tablet) 2 mg PO DAILY [facility]; Protocol Last Admin: 09/30/24 09:35 Dose: 2 mg Bupropion HCl (Bupropion Hcl Xl 300 Mg Tab.Er.24h) 300 mg PO DAILY [facility] Cefuroxime Axetil (Cefuroxime Axetil 250 Mg Tablet) 250 mg PO BID [facility] Last Admin: 09/30/24 09:38 Dose: 250 mg Cyclobenzaprine HCl (Cyclobenzaprine Hcl 10 Mg Tablet) 10 mg PO BID [facility] Last Admin: 09/30/24 09:37 Dose: 10 mg Ferrous Sulfate (Ferrous Sulfate 324 Mg Tablet.Dr) 324 mg PO DAILY [facility] Last Admin: 09/30/24 09:37 Dose: 324 mg Fluoxetine HCl (Fluoxetine Hcl 20 Mg Capsule) 20 mg PO DAILY [facility] Last Admin: 09/30/24 09:36 Dose: 20 mg Fluticasone/Umeclidinium/Vilanterol (Fluticasone/Umeclidinium/Vilanterol 100/62.5/25 Blst.W.Dev) 1 puff INHALE RDAILY [facility] Last Admin: 09/30/24 09:40 Dose: 1 puff Gabapentin (Gabapentin 400 Mg Capsule) 800 mg PO TID [facility] Last Admin: 09/30/24 09:35 Dose: 800 mg Hydroxyzine HCl (Hydroxyzine Hcl 25 Mg Tablet) 25 mg PO Q6H PRN PRN Reason: mild anxiety Last Admin: 09/30/24 12:02 Dose: 25 mg Lidocaine (Lidocaine 4 % Patch Adh..Patch) 1 patch TRANSDERMA DAILY [facility]; Protocol Last Admin: 09/30/24 09:42 Dose: 1 patch Lorazepam (Lorazepam 1 Mg Tablet) 1 mg PO TID [facility] Last Admin: 09/30/24 09:36 Dose: 1 mg Magnesium Hydroxide (Milk Of Magnesia 30 Ml Oral.Susp) 30 ml PO DAILY PRN PRN Reason: Constipation Melatonin (Melatonin 3 Mg Tablet) 3 mg PO BEDTIME [facility] Last Admin: 09/29/24 20:41 Dose: 3 mg Metformin HCl (Metformin Hcl 500 Mg Tablet) 500 mg PO DAILY [facility] Last Admin: 09/30/24 09:37 Dose: 500 mg Methenamine Hippurate (Methenamine Hippurate 1 Gm Tablet) 1 gm PO DAILY [facility] Last Admin: 09/30/24 09:36 Dose: 1 gm Metoprolol Succinate (Metoprolol Succinate Er 25 Mg Tab.Er.24h) 25 mg PO DAILY [facility]; Protocol Last Admin: 09/30/24 09:39 Dose: 25 mg Nicotine (Nicotine 21 Mg Patch.Td24) 21 mg TRANSDERMA DAILY [facility] Last Admin: 09/30/24 09:43 Dose: 21 mg Nicotine Polacrilex (Nicotine Polacrilex Lozenge 4 Mg Lozenge) 4 mg BUCCAL Q2H PRN PRN Reason: Nicotine Cravings Last Admin: 09/27/24 19:12 Dose: 4 mg Oxcarbazepine (Oxcarbazepine 300 Mg Tablet) 600 mg PO BID [facility] Last Admin: 09/30/24 09:38 Dose: 600 mg Potassium Chloride (Potassium Chloride Er 10 Meq Tablet.Er) 10 meq PO DAILY [facility] Last Admin: 09/30/24 09:38 Dose: 10 meq Prazosin HCl (Prazosin Hcl 1 Mg Capsule) 2 mg PO BEDTIME [facility]; Protocol Last Admin: 09/29/24 20:39 Dose: 2 mg Quetiapine Fumarate (Quetiapine Fumarate 400 Mg Tablet) 400 mg PO BEDTIME [facility] Last Admin: 09/29/24 20:40 Dose: 400 mg Trazodone HCl (Trazodone Hcl 25 Mg Halftab) 25 mg PO TIDWM [facility] Last Admin: 09/30/24 12:00 Dose: 25 mg Vitamin D (Cholecalciferol (Vitamin D3) 25 Mcg Tablet) 50 mcg PO DAILY [facility] Last Admin: 09/30/24 09:39 Dose: 50 mcg Allergies Allergies Allergy/AdvReac Type Severity Reaction Status Date / Time sertraline [From Zoloft] Allergy Intermediate Nausea and Verified 09/26/24 14:12 Vomiting Penicillins Allergy Mild RASH Verified 09/26/24 14:12 ciprofloxacin AdvReac Intermediate Nausea and Verified 09/26/24 14:12 Vomiting Assessment & Plan Assessment & Plan (1) Bipolar disorder: Status: Acute Code(s): F31.9 - Bipolar disorder, unspecified Plan Pt is a 64 yo female, with hx of Bipolar disorder, recently dc'd from [facility], self presents for SI. Pt says she was feeling good when she was discharged a few weeks ago; she's not sure why but started to become depressed with return of negative self talk. Depressed worsened and she developed SI with a plan that she will not reveal. She wanted to stay safe so she self-presented. Pt reports continued adherence with medications. Pt considers it possible she became lonely these past weeks since unable to go to her day program. Denies AVH. formulation/clinical reasoning: not sure trigger for return of depression discussed medication options, risks/side-effects and pt decided on Wellbutrin trial over prozac increase Hospital course: 09/27: start Wellbutrin XL 150mg. continue home meds. on home . 09/28: still depressed but says mood a little better; SI less frequent, waning. Says feeling Jumpy inside today and agrees it might be due to Wellbutrin; however, she wants to remain on it and see if she adjusts to it. 09/29: depressed, endorsing SI but won't divulge plan. continue current mgmt. T/C increase in wellbutrin to 300 mg daily after 3 doses. risk of Sz reviewed with pt. 09/30: remains depressed, denies SI. increase wellbutrin tomorrow. unable to identify goals for discharge. sedated in afternoon, per staff. self-defeating behaviors such as refusing diuretic and TEDS while having B/L LE edema. Reason for continued inpatient stay Substantial Risk for: harm to self, inability to function and rapid decompensation Time Spent With Patient Time: Total time managing care of this patient today _25___ minutes.
[2024-09-30 20:00] VITALS: BP 109/67; PULSE 78; RESP 16; TEMP 37.2; O2SAT 96
[2024-09-30] MEDS: Atorvastatin Calcium 40 MG TABLET PO (20:08)
[2024-09-30] MEDS: Prazosin HCL 1 MG CAPSULE 2 MG PO (20:08)
[2024-09-30] MEDS: Melatonin 3 MG TABLET PO (20:08)
[2024-09-30] MEDS: QUEtiapine Fumarate 400 MG TABLET PO (20:09)
[2024-09-30 23:12] VITALS: RESP 16; O2SAT 96
[2024-10-01] VITALS (7 sets, daily range): BP systolic 112–126; BP diastolic 70–71; PULSE 69–72; RESP 14–16; TEMP 36.6–36.9; O2SAT 90–97
[2024-10-01] MEDS: buPROPion HCl XL 300 MG TAB.ER.24H PO (09:25)
[2024-10-01] MEDS: Gabapentin 400 MG CAPSULE 800 MG PO ×3 (09:25→20:37)
[2024-10-01] MEDS: Ferrous Sulfate 324 MG TABLET.DR PO (09:25)
[2024-10-01] MEDS: Bumetanide 1 MG TABLET 2 MG PO (09:25)
[2024-10-01] MEDS: Methenamine Hippurate 1 GM TABLET PO (09:26)
[2024-10-01] MEDS: LORazepam 1 MG TABLET PO ×3 (09:26→20:36)
[2024-10-01] MEDS: Potassium Chloride ER 10 MEQ TABLET.ER PO (09:26)
[2024-10-01] MEDS: FLUoxetine HCl 20 MG CAPSULE PO (09:26)
[2024-10-01] MEDS: Apixaban 5 MG TABLET PO ×2 (09:27→20:39)
[2024-10-01] MEDS: Cholecalciferol (Vitamin D3) 25 MCG TABLET 50 MCG PO (09:27)
[2024-10-01] MEDS: Cyclobenzaprine HCl 10 MG TABLET PO ×2 (09:27→20:37)
[2024-10-01] MEDS: metFORMIN HCl 500 MG TABLET PO (09:28)
[2024-10-01] MEDS: traZODone HCL 25 MG HALFTAB PO ×3 (09:28→17:37)
[2024-10-01] MEDS: Aspirin 81 MG TAB.CHEW PO (09:28)
[2024-10-01] MEDS: Metoprolol Succinate ER 25 MG TAB.ER.24H PO (09:28)
[2024-10-01] MEDS: OXcarbazepine 300 MG TABLET 600 MG PO ×2 (09:29→20:38)
[2024-10-01] MEDS: cefuroxime axetiL 250 MG TABLET PO ×2 (09:29→20:39)
[2024-10-01] MEDS: Fluticasone/Umeclidinium/Vilanterol 100/62.5/25 BLST.W.DEV 1 PUFF INHALE (09:30)
[2024-10-01] MEDS: Nicotine 21 MG PATCH.TD24 TRANSDERMA (09:30)
[2024-10-01] MEDS: Lidocaine 4 % Patch ADH..PATCH 1 PATCH TRANSDERMA (09:30)
--- NOTE | 2024-10-01 09:52 | PC.NURSE ---
Lucila was complaining of squeezing mid epigastric pain radiating to her back. Vitals stable. She denies sweating, nausea, vomiting or diarrhea. 02 92% on 3L. Sylvester Cheng MD made aware. Placed on 4L and 02 94%.
--- NOTE | 2024-10-01 11:24 | HO.PSYCHPN ---
Subjective Subjective Date of Service: 10/01/24 Reason For Visit: SI Interim History: up and about this morning. O2 on, ambulating with walker. reports mood is a little better, denies SI. most recent SI yesterday. planning to attend [facility], considering discharge sometime next week. per staff, remains on 1:1. dep 7 anx 7. taking meds. attending groups. more visible, pleasant, bright. slept 8 hours. how long does someone stay in the hospital when they are suicidal? Mental Status Exam Mental Status Exam Narrative: calm, cooperative, pleasant. adequately dressed and groomed. general PMR. speech nml rate, amount, loudness, latency. decr tone. thoughts linear and logical, affect flexible, normo-intense, non-labile. mood a little better. no SI. no HI/AVH expressed. Diagnostics Vital Signs (24Hr): Vital Signs - 24 hr 09/30/24 20:00 09/30/24 23:12 10/01/24 07:42 Temperature 98.9 F 97.8 F Pulse Rate 78 69 Respiratory Rate 16 16 14 Blood Pressure 109/67 126/70 Pulse Oximetry 96 96 95 Oxygen Delivery Method Nasal Cannula Nasal Cannula Room Air Oxygen Flow Rate 3 10/01/24 09:25 10/01/24 09:28 10/01/24 09:52 Temperature Pulse Rate 69 Respiratory Rate Blood Pressure 126/70 126/70 Pulse Oximetry 92 Oxygen Delivery Method Nasal Cannula Oxygen Flow Rate 3 10/01/24 09:56 Temperature Pulse Rate Respiratory Rate Blood Pressure Pulse Oximetry 94 Oxygen Delivery Method Nasal Cannula Oxygen Flow Rate 4 BMI result Body Mass Index 40.4 Labs 09/26/24 14:45 09/26/24 22:14 Medications Medications Current Medications Acetaminophen (Acetaminophen 325 Mg Tablet) 650 mg PO Q6H PRN PRN Reason: Headache/Pain, Scale 1-10 Last Admin: 09/27/24 09:58 Dose: 650 mg Al Hydroxide/Mg Hydroxide (Magnesium Hydrox/Alum Hydrox 30 Ml Oral.Susp) 30 ml PO Q6H PRN PRN Reason: Heartburn/Nausea Albuterol Sulfate (Albuterol Sulfate 90 Mcg 8 Gm Inhaler) 2 puff INHALE Q4H PRN PRN Reason: Shortness Of Breath/Wheezing Apixaban (Apixaban 5 Mg Tablet) 5 mg PO BID [facility] Last Admin: 10/01/24 09:27 Dose: 5 mg Aspirin (Aspirin 81 Mg Tab.Chew) 81 mg PO DAILY [facility] Last Admin: 10/01/24 09:28 Dose: 81 mg Atorvastatin Calcium (Atorvastatin Calcium 40 Mg Tablet) 40 mg PO BEDTIME [facility] Last Admin: 09/30/24 20:08 Dose: 40 mg Bumetanide (Bumetanide 1 Mg Tablet) 2 mg PO DAILY [facility]; Protocol Last Admin: 10/01/24 09:25 Dose: 2 mg Bupropion HCl (Bupropion Hcl Xl 300 Mg Tab.Er.24h) 300 mg PO DAILY [facility] Last Admin: 10/01/24 09:25 Dose: 300 mg Cefuroxime Axetil (Cefuroxime Axetil 250 Mg Tablet) 250 mg PO BID [facility] Last Admin: 10/01/24 09:29 Dose: 250 mg Cyclobenzaprine HCl (Cyclobenzaprine Hcl 10 Mg Tablet) 10 mg PO BID [facility] Last Admin: 10/01/24 09:27 Dose: 10 mg Ferrous Sulfate (Ferrous Sulfate 324 Mg Tablet.Dr) 324 mg PO DAILY [facility] Last Admin: 10/01/24 09:25 Dose: 324 mg Fluoxetine HCl (Fluoxetine Hcl 20 Mg Capsule) 20 mg PO DAILY [facility] Last Admin: 10/01/24 09:26 Dose: 20 mg Fluticasone/Umeclidinium/Vilanterol (Fluticasone/Umeclidinium/Vilanterol 100/62.5/25 Blst.W.Dev) 1 puff INHALE RDAILY [facility] Last Admin: 10/01/24 09:30 Dose: 1 puff Gabapentin (Gabapentin 400 Mg Capsule) 800 mg PO TID [facility] Last Admin: 10/01/24 09:25 Dose: 800 mg Hydroxyzine HCl (Hydroxyzine Hcl 25 Mg Tablet) 25 mg PO Q6H PRN PRN Reason: mild anxiety Last Admin: 09/30/24 12:02 Dose: 25 mg Lidocaine (Lidocaine 4 % Patch Adh..Patch) 1 patch TRANSDERMA DAILY [facility]; Protocol Last Admin: 10/01/24 09:30 Dose: 1 patch Lorazepam (Lorazepam 1 Mg Tablet) 1 mg PO TID [facility] Last Admin: 10/01/24 09:26 Dose: 1 mg Magnesium Hydroxide (Milk Of Magnesia 30 Ml Oral.Susp) 30 ml PO DAILY PRN PRN Reason: Constipation Melatonin (Melatonin 3 Mg Tablet) 3 mg PO BEDTIME [facility] Last Admin: 09/30/24 20:08 Dose: 3 mg Metformin HCl (Metformin Hcl 500 Mg Tablet) 500 mg PO DAILY [facility] Last Admin: 10/01/24 09:28 Dose: 500 mg Methenamine Hippurate (Methenamine Hippurate 1 Gm Tablet) 1 gm PO DAILY [facility] Last Admin: 10/01/24 09:26 Dose: 1 gm Metoprolol Succinate (Metoprolol Succinate Er 25 Mg Tab.Er.24h) 25 mg PO DAILY [facility]; Protocol Last Admin: 10/01/24 09:28 Dose: 25 mg Nicotine (Nicotine 21 Mg Patch.Td24) 21 mg TRANSDERMA DAILY [facility] Last Admin: 10/01/24 09:30 Dose: 21 mg Nicotine Polacrilex (Nicotine Polacrilex Lozenge 4 Mg Lozenge) 4 mg BUCCAL Q2H PRN PRN Reason: Nicotine Cravings Last Admin: 09/27/24 19:12 Dose: 4 mg Oxcarbazepine (Oxcarbazepine 300 Mg Tablet) 600 mg PO BID [facility] Last Admin: 10/01/24 09:29 Dose: 600 mg Potassium Chloride (Potassium Chloride Er 10 Meq Tablet.Er) 10 meq PO DAILY [facility] Last Admin: 10/01/24 09:26 Dose: 10 meq Prazosin HCl (Prazosin Hcl 1 Mg Capsule) 2 mg PO BEDTIME [facility]; Protocol Last Admin: 09/30/24 20:08 Dose: 2 mg Quetiapine Fumarate (Quetiapine Fumarate 400 Mg Tablet) 400 mg PO BEDTIME [facility] Last Admin: 09/30/24 20:09 Dose: 400 mg Trazodone HCl (Trazodone Hcl 25 Mg Halftab) 25 mg PO TIDWM [facility] Last Admin: 10/01/24 09:28 Dose: 25 mg Vitamin D (Cholecalciferol (Vitamin D3) 25 Mcg Tablet) 50 mcg PO DAILY [facility] Last Admin: 10/01/24 09:27 Dose: 50 mcg Allergies Allergies Allergy/AdvReac Type Severity Reaction Status Date / Time sertraline [From Zoloft] Allergy Intermediate Nausea and Verified 09/26/24 14:12 Vomiting Penicillins Allergy Mild RASH Verified 09/26/24 14:12 ciprofloxacin AdvReac Intermediate Nausea and Verified 09/26/24 14:12 Vomiting Assessment & Plan Assessment & Plan (1) Bipolar disorder: Status: Acute Code(s): F31.9 - Bipolar disorder, unspecified Plan Pt is a 64 yo female, with hx of Bipolar disorder, recently dc'd from [facility], self presents for SI. Pt says she was feeling good when she was discharged a few weeks ago; she's not sure why but started to become depressed with return of negative self talk. Depressed worsened and she developed SI with a plan that she will not reveal. She wanted to stay safe so she self-presented. Pt reports continued adherence with medications. Pt considers it possible she became lonely these past weeks since unable to go to her day program. Denies AVH. formulation/clinical reasoning: not sure trigger for return of depression discussed medication options, risks/side-effects and pt decided on Wellbutrin trial over prozac increase Hospital course: 09/27: start Wellbutrin XL 150mg. continue home meds. on home . 09/28: still depressed but says mood a little better; SI less frequent, waning. Says feeling Jumpy inside today and agrees it might be due to Wellbutrin; however, she wants to remain on it and see if she adjusts to it. 09/29: depressed, endorsing SI but won't divulge plan. continue current mgmt. T/C increase in wellbutrin to 300 mg daily after 3 doses. risk of Sz reviewed with pt. 09/30: remains depressed, denies SI. increase wellbutrin tomorrow. unable to identify goals for discharge. sedated in afternoon, per staff. self-defeating behaviors such as refusing diuretic and TEDS while having B/L LE edema. 10/01: mood a little better, denies SI. no problems with wellbutrin dosing increase today. PHP intake next sunday. planning to DC sometime next week. Reason for continued inpatient stay Substantial Risk for: harm to self, inability to function and rapid decompensation Time Spent With Patient Time: Total time managing care of this patient today _25___ minutes.
[2024-10-01] MEDS: hydrOXYzine HCL 25 MG TABLET PO (12:18)
[2024-10-01] MEDS: Acetaminophen 325 MG TABLET 650 MG PO (15:50)
--- NOTE | 2024-10-01 17:28 | PC.NURSE ---
Lucila was reporting not feeling good. Upon vital assessment, her 02 was 90% on 4L. Jefferson Dennis MD was made aware of 02 and placed a hospitalist consult.
--- NOTE | 2024-10-01 18:37 | PM.EVENT ---
Event Note Date of Service: 10/01/24 Event Note: 64-year-old female with history of COPD with chronic hypoxemic hypercapnic respiratory failure on 3-4 L admitted to adult Psychiatry with consult placed hospitalist service due to shortness of breath. The patient reports for the last several hours, she has been increasingly short of breath both at rest and with exertion. She also has pleuritic chest pain. Denies any chest pressure. She states she has had a dry cough intermittently. No fevers, chills, sore throat, congestion, abdominal pain, nausea, vomiting, diarrhea. She has been increasing her oxygen on her own up to 6 L due to the shortness of breath. She does endorse anxiety. On exam, patient is in no distress, respirations are even and unlabored. There is reproducible tenderness to palpation across the anterior chest. Lungs are clear to auscultation though slightly diminished in the right lower lobe. COPD without any acute exacerbation. Patient should be monitored using retainer protocol for oxygen administration. Discussed with nursing staff and patient that oxygen level should be kept between 88-92% to avoid worsening hypercapnia. We will check chest x-ray though suspect this will be negative for any acute cardiopulmonary abnormality though may have some possible basilar atelectasis. At this time no steroids indicated. Antibiotics not indicated. Recommend incentive spirometry. Time Spent With Patient Time: Total time managing care of this patient today ____ minutes.
[2024-10-01] MEDS: Prazosin HCL 1 MG CAPSULE 2 MG PO (20:36)
[2024-10-01] MEDS: Melatonin 3 MG TABLET PO (20:38)
[2024-10-01] MEDS: QUEtiapine Fumarate 400 MG TABLET PO (20:38)
[2024-10-01] MEDS: Atorvastatin Calcium 40 MG TABLET PO (20:39)
[2024-10-02 07:00] VITALS: BMI 37.6
[2024-10-02] MEDS: Gabapentin 400 MG CAPSULE 800 MG PO ×3 (08:56→20:39)
[2024-10-02] MEDS: Cholecalciferol (Vitamin D3) 25 MCG TABLET 50 MCG PO (08:57)
[2024-10-02] MEDS: Cyclobenzaprine HCl 10 MG TABLET PO ×2 (08:57→20:39)
[2024-10-02] MEDS: Potassium Chloride ER 10 MEQ TABLET.ER PO (08:57)
[2024-10-02] MEDS: metFORMIN HCl 500 MG TABLET PO (08:57)
[2024-10-02] MEDS: OXcarbazepine 300 MG TABLET 600 MG PO ×2 (08:57→20:41)
[2024-10-02] MEDS: cefuroxime axetiL 250 MG TABLET PO ×2 (08:57→20:39)
[2024-10-02] MEDS: FLUoxetine HCl 20 MG CAPSULE PO (08:58)
[2024-10-02] MEDS: traZODone HCL 25 MG HALFTAB PO ×3 (08:58→17:56)
[2024-10-02] MEDS: buPROPion HCl XL 300 MG TAB.ER.24H PO (08:58)
[2024-10-02] MEDS: Methenamine Hippurate 1 GM TABLET PO (08:58)
[2024-10-02] MEDS: Ferrous Sulfate 324 MG TABLET.DR PO (08:58)
[2024-10-02] MEDS: Apixaban 5 MG TABLET PO ×2 (08:58→20:38)
[2024-10-02] MEDS: Aspirin 81 MG TAB.CHEW PO (08:58)
[2024-10-02] MEDS: LORazepam 1 MG TABLET PO ×3 (08:58→20:40)
[2024-10-02 09:00] VITALS: BP 124/79; PULSE 79; RESP 17; TEMP 36.8; O2SAT 90
[2024-10-02 09:02] VITALS: BP 124/79
[2024-10-02] MEDS: Bumetanide 1 MG TABLET 2 MG PO (09:02)
[2024-10-02 09:03] VITALS: BP 124/79; PULSE 79
[2024-10-02] MEDS: Metoprolol Succinate ER 25 MG TAB.ER.24H PO (09:03)
[2024-10-02] MEDS: Fluticasone/Umeclidinium/Vilanterol 100/62.5/25 BLST.W.DEV 1 PUFF INHALE (09:04)
[2024-10-02] MEDS: Lidocaine 4 % Patch ADH..PATCH 1 PATCH TRANSDERMA (09:05)
[2024-10-02] MEDS: Nicotine 21 MG PATCH.TD24 TRANSDERMA (09:07)
--- NOTE | 2024-10-02 10:32 | HO.PSYCHPN ---
Subjective Subjective Date of Service: 10/02/24 Reason For Visit: SI Interim History: in bed with 1:1 at bedside. pleasant, calm, cooperative. reports she slept well last night, no medication side effects. c/o back pain, will put lidocaine patch on this morning. planning for DC next week and to F/U at [facility] next sunday. per staff, taking meds. O2 92% on 4LNC. seen by hospitalist for low O2. c/o SI last night, won't divulge plan. Mental Status Exam Mental Status Exam Narrative: calm, cooperative, pleasant. adequately dressed and groomed. general PMR. speech nml rate, amount, loudness, latency. decr tone. thoughts linear and logical, affect flexible, normo-intense, non-labile. mood not assessed. no SI/HI/AVH expressed to MD; per staff, endorsing SI and refusing to divulge plan last night. Diagnostics Vital Signs (24Hr): Vital Signs - 24 hr 10/01/24 17:28 10/01/24 20:30 10/02/24 09:00 Temperature 98.4 F 98.3 F Pulse Rate 72 79 Respiratory Rate 16 17 Blood Pressure 112/71 124/79 Pulse Oximetry 90 L 97 90 L Oxygen Delivery Method Nasal Cannula Room Air Nasal Cannula Oxygen Flow Rate 4 3 10/02/24 09:02 10/02/24 09:03 Temperature Pulse Rate 79 Respiratory Rate Blood Pressure 124/79 124/79 Pulse Oximetry Oxygen Delivery Method Oxygen Flow Rate BMI result Body Mass Index 40.4 Labs 09/26/24 14:45 09/26/24 22:14 Imaging Radiology Impressions: ITS Impressions Chest X-Ray 10/01/24 19:20 IMPRESSION: Bilateral pleural effusions, right greater than left. Electronically signed by: Jacob Suarez MD 10/02/2024 07:14 AM EDT RP Medications Medications Current Medications Acetaminophen (Acetaminophen 325 Mg Tablet) 650 mg PO Q6H PRN PRN Reason: Headache/Pain, Scale 1-10 Last Admin: 10/01/24 15:50 Dose: 650 mg Al Hydroxide/Mg Hydroxide (Magnesium Hydrox/Alum Hydrox 30 Ml Oral.Susp) 30 ml PO Q6H PRN PRN Reason: Heartburn/Nausea Albuterol Sulfate (Albuterol Sulfate 90 Mcg 8 Gm Inhaler) 2 puff INHALE Q4H PRN PRN Reason: Shortness Of Breath/Wheezing Apixaban (Apixaban 5 Mg Tablet) 5 mg PO BID [facility] Last Admin: 10/02/24 08:58 Dose: 5 mg Aspirin (Aspirin 81 Mg Tab.Chew) 81 mg PO DAILY [facility] Last Admin: 10/02/24 08:58 Dose: 81 mg Atorvastatin Calcium (Atorvastatin Calcium 40 Mg Tablet) 40 mg PO BEDTIME [facility] Last Admin: 10/01/24 20:39 Dose: 40 mg Bumetanide (Bumetanide 1 Mg Tablet) 2 mg PO DAILY [facility]; Protocol Last Admin: 10/02/24 09:02 Dose: 2 mg Bupropion HCl (Bupropion Hcl Xl 300 Mg Tab.Er.24h) 300 mg PO DAILY [facility] Last Admin: 10/02/24 08:58 Dose: 300 mg Cefuroxime Axetil (Cefuroxime Axetil 250 Mg Tablet) 250 mg PO BID [facility] Last Admin: 10/02/24 08:57 Dose: 250 mg Cyclobenzaprine HCl (Cyclobenzaprine Hcl 10 Mg Tablet) 10 mg PO BID [facility] Last Admin: 10/02/24 08:57 Dose: 10 mg Ferrous Sulfate (Ferrous Sulfate 324 Mg Tablet.Dr) 324 mg PO DAILY [facility] Last Admin: 10/02/24 08:58 Dose: 324 mg Fluoxetine HCl (Fluoxetine Hcl 20 Mg Capsule) 20 mg PO DAILY [facility] Last Admin: 10/02/24 08:58 Dose: 20 mg Fluticasone/Umeclidinium/Vilanterol (Fluticasone/Umeclidinium/Vilanterol 100/62.5/25 Blst.W.Dev) 1 puff INHALE RDAILY [facility] Last Admin: 10/02/24 09:04 Dose: 1 puff Gabapentin (Gabapentin 400 Mg Capsule) 800 mg PO TID [facility] Last Admin: 10/02/24 08:56 Dose: 800 mg Hydroxyzine HCl (Hydroxyzine Hcl 25 Mg Tablet) 25 mg PO Q6H PRN PRN Reason: mild anxiety Last Admin: 10/01/24 12:18 Dose: 25 mg Lidocaine (Lidocaine 4 % Patch Adh..Patch) 1 patch TRANSDERMA DAILY [facility]; Protocol Last Admin: 10/02/24 09:05 Dose: 1 patch Lorazepam (Lorazepam 1 Mg Tablet) 1 mg PO TID [facility] Last Admin: 10/02/24 08:58 Dose: 1 mg Magnesium Hydroxide (Milk Of Magnesia 30 Ml Oral.Susp) 30 ml PO DAILY PRN PRN Reason: Constipation Melatonin (Melatonin 3 Mg Tablet) 3 mg PO BEDTIME [facility] Last Admin: 10/01/24 20:38 Dose: 3 mg Metformin HCl (Metformin Hcl 500 Mg Tablet) 500 mg PO DAILY [facility] Last Admin: 10/02/24 08:57 Dose: 500 mg Methenamine Hippurate (Methenamine Hippurate 1 Gm Tablet) 1 gm PO DAILY [facility] Last Admin: 10/02/24 08:58 Dose: 1 gm Metoprolol Succinate (Metoprolol Succinate Er 25 Mg Tab.Er.24h) 25 mg PO DAILY [facility]; Protocol Last Admin: 10/02/24 09:03 Dose: 25 mg Nicotine (Nicotine 21 Mg Patch.Td24) 21 mg TRANSDERMA DAILY [facility] Last Admin: 10/02/24 09:07 Dose: 21 mg Nicotine Polacrilex (Nicotine Polacrilex Lozenge 4 Mg Lozenge) 4 mg BUCCAL Q2H PRN PRN Reason: Nicotine Cravings Last Admin: 09/27/24 19:12 Dose: 4 mg Oxcarbazepine (Oxcarbazepine 300 Mg Tablet) 600 mg PO BID [facility] Last Admin: 10/02/24 08:57 Dose: 600 mg Potassium Chloride (Potassium Chloride Er 10 Meq Tablet.Er) 10 meq PO DAILY [facility] Last Admin: 10/02/24 08:57 Dose: 10 meq Prazosin HCl (Prazosin Hcl 1 Mg Capsule) 2 mg PO BEDTIME [facility]; Protocol Last Admin: 10/01/24 20:36 Dose: 2 mg Quetiapine Fumarate (Quetiapine Fumarate 400 Mg Tablet) 400 mg PO BEDTIME [facility] Last Admin: 10/01/24 20:38 Dose: 400 mg Trazodone HCl (Trazodone Hcl 25 Mg Halftab) 25 mg PO TIDWM [facility] Last Admin: 10/02/24 08:58 Dose: 25 mg Vitamin D (Cholecalciferol (Vitamin D3) 25 Mcg Tablet) 50 mcg PO DAILY [facility] Last Admin: 10/02/24 08:57 Dose: 50 mcg Allergies Allergies Allergy/AdvReac Type Severity Reaction Status Date / Time sertraline [From Zoloft] Allergy Intermediate Nausea and Verified 09/26/24 14:12 Vomiting Penicillins Allergy Mild RASH Verified 09/26/24 14:12 ciprofloxacin AdvReac Intermediate Nausea and Verified 09/26/24 14:12 Vomiting Assessment & Plan Assessment & Plan (1) Bipolar disorder: Status: Acute Code(s): F31.9 - Bipolar disorder, unspecified Plan Pt is a 64 yo female, with hx of Bipolar disorder, recently dc'd from [facility], self presents for SI. Pt says she was feeling good when she was discharged a few weeks ago; she's not sure why but started to become depressed with return of negative self talk. Depressed worsened and she developed SI with a plan that she will not reveal. She wanted to stay safe so she self-presented. Pt reports continued adherence with medications. Pt considers it possible she became lonely these past weeks since unable to go to her day program. Denies AVH. formulation/clinical reasoning: not sure trigger for return of depression discussed medication options, risks/side-effects and pt decided on Wellbutrin trial over prozac increase Hospital course: 09/27: start Wellbutrin XL 150mg. continue home meds. on home . 09/28: still depressed but says mood a little better; SI less frequent, waning. Says feeling Jumpy inside today and agrees it might be due to Wellbutrin; however, she wants to remain on it and see if she adjusts to it. 09/29: depressed, endorsing SI but won't divulge plan. continue current mgmt. T/C increase in wellbutrin to 300 mg daily after 3 doses. risk of Sz reviewed with pt. 09/30: remains depressed, denies SI. increase wellbutrin tomorrow. unable to identify goals for discharge. sedated in afternoon, per staff. self-defeating behaviors such as refusing diuretic and TEDS while having B/L LE edema. 10/01: mood a little better, denies SI. no problems with wellbutrin dosing increase today. PHP intake next sunday. planning to DC sometime next week. 10/02: seen by hospitalist for borderline O2 sats on 4LNC. no evidence of COPD exacerbation, plan made for incentive spirometry. reports slept well last night. plan to continue regimen into next week, then discharge to PHP intake on sunday. per staff, endorsing SI last night and refusing to divulge plan. Reason for continued inpatient stay Substantial Risk for: harm to self, inability to function and rapid decompensation Time Spent With Patient Time: Total time managing care of this patient today __25__ minutes.
[2024-10-02] MEDS: hydrOXYzine HCL 25 MG TABLET PO (14:32)
[2024-10-02 15:58] VITALS: O2SAT 95
[2024-10-02 20:15] VITALS: BP 128/70; PULSE 81; RESP 14; TEMP 36.4; O2SAT 94
[2024-10-02] MEDS: Atorvastatin Calcium 40 MG TABLET PO (20:38)
[2024-10-02] MEDS: Melatonin 3 MG TABLET PO (20:40)
[2024-10-02] MEDS: QUEtiapine Fumarate 400 MG TABLET PO (20:41)
[2024-10-02] MEDS: Prazosin HCL 1 MG CAPSULE 2 MG PO (20:42)
[2024-10-02] MEDS: Acetaminophen 325 MG TABLET 650 MG PO (20:48)
[2024-10-03 07:25] VITALS: BP 105/51; PULSE 69; RESP 14; TEMP 36.6; O2SAT 93
[2024-10-03 08:48] LABS: Creatinine Clr Calc Pharmacy 110.6; Estimated Glomerular Filt Rate > 60
[2024-10-03] MEDS: Fluticasone/Umeclidinium/Vilanterol 100/62.5/25 BLST.W.DEV 1 PUFF INHALE (09:06)
[2024-10-03] MEDS: OXcarbazepine 300 MG TABLET 600 MG PO ×2 (09:08→20:10)
[2024-10-03 09:09] VITALS: BP 125/63
[2024-10-03] MEDS: cefuroxime axetiL 250 MG TABLET PO ×2 (09:09→20:10)
[2024-10-03] MEDS: Cyclobenzaprine HCl 10 MG TABLET PO ×2 (09:09→20:10)
[2024-10-03] MEDS: metFORMIN HCl 500 MG TABLET PO (09:09)
[2024-10-03] MEDS: Bumetanide 1 MG TABLET 2 MG PO (09:09)
[2024-10-03] MEDS: Potassium Chloride ER 10 MEQ TABLET.ER PO (09:09)
[2024-10-03 09:10] VITALS: BP 125/73; PULSE 65
[2024-10-03] MEDS: Ferrous Sulfate 324 MG TABLET.DR PO (09:10)
[2024-10-03] MEDS: Metoprolol Succinate ER 25 MG TAB.ER.24H PO (09:10)
[2024-10-03] MEDS: traZODone HCL 25 MG HALFTAB PO ×3 (09:10→16:59)
[2024-10-03] MEDS: Aspirin 81 MG TAB.CHEW PO (09:10)
[2024-10-03] MEDS: Methenamine Hippurate 1 GM TABLET PO (09:10)
[2024-10-03] MEDS: Apixaban 5 MG TABLET PO ×2 (09:10→20:11)
[2024-10-03] MEDS: LORazepam 1 MG TABLET PO ×3 (09:10→20:11)
[2024-10-03] MEDS: FLUoxetine HCl 20 MG CAPSULE PO (09:10)
[2024-10-03] MEDS: buPROPion HCl XL 300 MG TAB.ER.24H PO (09:10)
[2024-10-03] MEDS: Cholecalciferol (Vitamin D3) 25 MCG TABLET 50 MCG PO (09:10)
[2024-10-03] MEDS: Gabapentin 400 MG CAPSULE 800 MG PO ×3 (09:10→20:09)
[2024-10-03] MEDS: Nicotine 21 MG PATCH.TD24 TRANSDERMA (09:14)
[2024-10-03] MEDS: Lidocaine 4 % Patch ADH..PATCH 1 PATCH TRANSDERMA (09:16)
--- NOTE | 2024-10-03 12:19 | P.PNPSI_ITS ---
Subjective Subjective Date of Service: 10/03/24 Reason For Visit: SI Interim History: in bed, calm, cooperative. asking about sunday discharge. denies SI. mood improving. c/o low back pain, still has lidocaine patch on. instructed to use 12 on and 12 off. willing to try capsaicin. per staff, depression low, anxiety 7. slept 8 hours. Mental Status Exam Mental Status Exam Narrative: calm, cooperative, pleasant. adequately dressed and groomed. general PMR. speech nml rate, amount, loudness, latency. decr tone. thoughts linear and logical, affect flexible, normo-intense, non-labile. mood improved. denies SI. no HI/AVH expressed. Diagnostics Vital Signs (24Hr): Vital Signs - 24 hr 10/02/24 15:58 10/02/24 20:15 10/03/24 07:25 Temperature 97.5 F 97.8 F Pulse Rate 81 69 Respiratory Rate 14 14 Blood Pressure 128/70 105/51 L Pulse Oximetry 95 94 93 Oxygen Delivery Method Nasal Cannula Room Air Room Air Oxygen Flow Rate 3 10/03/24 09:09 10/03/24 09:10 Temperature Pulse Rate 65 Respiratory Rate Blood Pressure 125/63 125/73 Pulse Oximetry Oxygen Delivery Method Oxygen Flow Rate BMI result Body Mass Index 37.6 Labs 09/26/24 14:45 10/03/24 08:08 Labs: Laboratory Results - last 48 hr 10/03/24 08:08 Creatinine 0.67 Estim Creat Clear Calc 110.6 Estimated GFR > 60 Imaging Radiology Impressions: ITS Impressions Chest X-Ray 10/01/24 19:20 IMPRESSION: Bilateral pleural effusions, right greater than left. Electronically signed by: Jacob Suarez MD 10/02/2024 07:14 AM EDT RP Medications Medications Current Medications Acetaminophen (Acetaminophen 325 Mg Tablet) 650 mg PO Q6H PRN PRN Reason: Headache/Pain, Scale 1-10 Last Admin: 10/02/24 20:48 Dose: 650 mg Al Hydroxide/Mg Hydroxide (Magnesium Hydrox/Alum Hydrox 30 Ml Oral.Susp) 30 ml PO Q6H PRN PRN Reason: Heartburn/Nausea Albuterol Sulfate (Albuterol Sulfate 90 Mcg 8 Gm Inhaler) 2 puff INHALE Q4H PRN PRN Reason: Shortness Of Breath/Wheezing Apixaban (Apixaban 5 Mg Tablet) 5 mg PO BID [facility] Last Admin: 10/03/24 09:10 Dose: 5 mg Aspirin (Aspirin 81 Mg Tab.Chew) 81 mg PO DAILY [facility] Last Admin: 10/03/24 09:10 Dose: 81 mg Atorvastatin Calcium (Atorvastatin Calcium 40 Mg Tablet) 40 mg PO BEDTIME [facility] Last Admin: 10/02/24 20:38 Dose: 40 mg Bumetanide (Bumetanide 1 Mg Tablet) 2 mg PO DAILY [facility]; Protocol Last Admin: 10/03/24 09:09 Dose: 2 mg Bupropion HCl (Bupropion Hcl Xl 300 Mg Tab.Er.24h) 300 mg PO DAILY [facility] Last Admin: 10/03/24 09:10 Dose: 300 mg Cefuroxime Axetil (Cefuroxime Axetil 250 Mg Tablet) 250 mg PO BID [facility] Last Admin: 10/03/24 09:09 Dose: 250 mg Cyclobenzaprine HCl (Cyclobenzaprine Hcl 10 Mg Tablet) 10 mg PO BID [facility] Last Admin: 10/03/24 09:09 Dose: 10 mg Ferrous Sulfate (Ferrous Sulfate 324 Mg Tablet.Dr) 324 mg PO DAILY [facility] Last Admin: 10/03/24 09:10 Dose: 324 mg Fluoxetine HCl (Fluoxetine Hcl 20 Mg Capsule) 20 mg PO DAILY [facility] Last Admin: 10/03/24 09:10 Dose: 20 mg Fluticasone/Umeclidinium/Vilanterol (Fluticasone/Umeclidinium/Vilanterol 100/62.5/25 Blst.W.Dev) 1 puff INHALE RDAILY [facility] Last Admin: 10/03/24 09:06 Dose: 1 puff Gabapentin (Gabapentin 400 Mg Capsule) 800 mg PO TID [facility] Last Admin: 10/03/24 09:10 Dose: 800 mg Hydroxyzine HCl (Hydroxyzine Hcl 25 Mg Tablet) 25 mg PO Q6H PRN PRN Reason: mild anxiety Last Admin: 10/02/24 14:32 Dose: 25 mg Lidocaine (Lidocaine 4 % Patch Adh..Patch) 1 patch TRANSDERMA DAILY [facility]; Protocol Last Admin: 10/03/24 09:16 Dose: 1 patch Lorazepam (Lorazepam 1 Mg Tablet) 1 mg PO TID [facility] Last Admin: 10/03/24 09:10 Dose: 1 mg Magnesium Hydroxide (Milk Of Magnesia 30 Ml Oral.Susp) 30 ml PO DAILY PRN PRN Reason: Constipation Melatonin (Melatonin 3 Mg Tablet) 3 mg PO BEDTIME [facility] Last Admin: 10/02/24 20:40 Dose: 3 mg Metformin HCl (Metformin Hcl 500 Mg Tablet) 500 mg PO DAILY [facility] Last Admin: 10/03/24 09:09 Dose: 500 mg Methenamine Hippurate (Methenamine Hippurate 1 Gm Tablet) 1 gm PO DAILY [facility] Last Admin: 10/03/24 09:10 Dose: 1 gm Metoprolol Succinate (Metoprolol Succinate Er 25 Mg Tab.Er.24h) 25 mg PO DAILY [facility]; Protocol Last Admin: 10/03/24 09:10 Dose: 25 mg Nicotine (Nicotine 21 Mg Patch.Td24) 21 mg TRANSDERMA DAILY [facility] Last Admin: 10/03/24 09:14 Dose: 21 mg Nicotine Polacrilex (Nicotine Polacrilex Lozenge 4 Mg Lozenge) 4 mg BUCCAL Q2H PRN PRN Reason: Nicotine Cravings Last Admin: 09/27/24 19:12 Dose: 4 mg Oxcarbazepine (Oxcarbazepine 300 Mg Tablet) 600 mg PO BID [facility] Last Admin: 10/03/24 09:08 Dose: 600 mg Potassium Chloride (Potassium Chloride Er 10 Meq Tablet.Er) 10 meq PO DAILY [facility] Last Admin: 10/03/24 09:09 Dose: 10 meq Prazosin HCl (Prazosin Hcl 1 Mg Capsule) 2 mg PO BEDTIME [facility]; Protocol Last Admin: 10/02/24 20:42 Dose: 2 mg Quetiapine Fumarate (Quetiapine Fumarate 400 Mg Tablet) 400 mg PO BEDTIME [facility] Last Admin: 10/02/24 20:41 Dose: 400 mg Trazodone HCl (Trazodone Hcl 25 Mg Halftab) 25 mg PO TIDWM [facility] Last Admin: 10/03/24 09:10 Dose: 25 mg Vitamin D (Cholecalciferol (Vitamin D3) 25 Mcg Tablet) 50 mcg PO DAILY [facility] Last Admin: 10/03/24 09:10 Dose: 50 mcg Allergies Allergies Allergy/AdvReac Type Severity Reaction Status Date / Time sertraline [From Zoloft] Allergy Intermediate Nausea and Verified 09/26/24 14:12 Vomiting Penicillins Allergy Mild RASH Verified 09/26/24 14:12 ciprofloxacin AdvReac Intermediate Nausea and Verified 09/26/24 14:12 Vomiting Assessment & Plan Assessment & Plan (1) Bipolar disorder: Status: Acute Code(s): F31.9 - Bipolar disorder, unspecified Plan Pt is a 64 yo female, with hx of Bipolar disorder, recently dc'd from [facility], self presents for SI. Pt says she was feeling good when she was discharged a few weeks ago; she's not sure why but started to become depressed with return of negative self talk. Depressed worsened and she developed SI with a plan that she will not reveal. She wanted to stay safe so she self-presented. Pt reports continued adherence with medications. Pt considers it possible she became lonely these past weeks since unable to go to her day program. Denies AVH. formulation/clinical reasoning: not sure trigger for return of depression discussed medication options, risks/side-effects and pt decided on Wellbutrin trial over prozac increase Hospital course: 09/27: start Wellbutrin XL 150mg. continue home meds. on home . 09/28: still depressed but says mood a little better; SI less frequent, waning. Says feeling Jumpy inside today and agrees it might be due to Wellbutrin; however, she wants to remain on it and see if she adjusts to it. 09/29: depressed, endorsing SI but won't divulge plan. continue current mgmt. T/C increase in wellbutrin to 300 mg daily after 3 doses. risk of Sz reviewed with pt. 09/30: remains depressed, denies SI. increase wellbutrin tomorrow. unable to identify goals for discharge. sedated in afternoon, per staff. self-defeating behaviors such as refusing diuretic and TEDS while having B/L LE edema. 10/01: mood a little better, denies SI. no problems with wellbutrin dosing increase today. PHP intake next sunday. planning to DC sometime next week. 10/02: seen by hospitalist for borderline O2 sats on 4LNC. no evidence of COPD exacerbation, plan made for incentive spirometry. reports slept well last night. plan to continue regimen into next week, then discharge to PHP intake on sunday. per staff, endorsing SI last night and refusing to divulge plan. 10/03: denies SI. asking for sunday discharge. sleeping well. will continue current mgmt and plan for sunday. Reason for continued inpatient stay Substantial Risk for: harm to self, inability to function and rapid decompensation Time Spent With Patient Time: Total time managing care of this patient today __25__ minutes.
[2024-10-03] MEDS: hydrOXYzine HCL 25 MG TABLET PO (16:59)
[2024-10-03 19:45] VITALS: BP 118/52; PULSE 78; RESP 18; TEMP 37.3; O2SAT 97
[2024-10-03 20:09] VITALS: BP 118/52
[2024-10-03] MEDS: Prazosin HCL 1 MG CAPSULE 2 MG PO (20:09)
[2024-10-03] MEDS: QUEtiapine Fumarate 400 MG TABLET PO (20:10)
[2024-10-03] MEDS: Melatonin 3 MG TABLET PO (20:10)
[2024-10-03] MEDS: Atorvastatin Calcium 40 MG TABLET PO (20:11)
[2024-10-03] MEDS: Capsaicin 0.025% Cream 60 GM TUBE 1 APPL TOPICAL (20:49)
[2024-10-04 08:35] VITALS: BP 124/63; PULSE 74; RESP 14; TEMP 36.7; O2SAT 92
[2024-10-04] MEDS: Capsaicin 0.025% Cream 60 GM TUBE 1 APPL TOPICAL ×2 (09:58→21:02)
[2024-10-04 09:59] VITALS: BP 124/63
[2024-10-04] MEDS: Cyclobenzaprine HCl 10 MG TABLET PO ×2 (09:59→20:58)
[2024-10-04] MEDS: Methenamine Hippurate 1 GM TABLET PO (09:59)
[2024-10-04] MEDS: Bumetanide 1 MG TABLET 2 MG PO (09:59)
[2024-10-04] MEDS: buPROPion HCl XL 300 MG TAB.ER.24H PO (09:59)
[2024-10-04] MEDS: LORazepam 1 MG TABLET PO ×3 (09:59→20:59)
[2024-10-04] MEDS: Nicotine 21 MG PATCH.TD24 TRANSDERMA (10:01)
[2024-10-04] MEDS: OXcarbazepine 300 MG TABLET 600 MG PO ×2 (10:02→20:57)
[2024-10-04] MEDS: Apixaban 5 MG TABLET PO ×2 (10:02→20:57)
[2024-10-04] MEDS: metFORMIN HCl 500 MG TABLET PO (10:03)
[2024-10-04] MEDS: Potassium Chloride ER 10 MEQ TABLET.ER PO (10:03)
[2024-10-04] MEDS: FLUoxetine HCl 20 MG CAPSULE PO (10:03)
[2024-10-04] MEDS: cefuroxime axetiL 250 MG TABLET PO ×2 (10:03→20:58)
[2024-10-04] MEDS: Gabapentin 400 MG CAPSULE 800 MG PO ×3 (10:03→20:59)
[2024-10-04] MEDS: Ferrous Sulfate 324 MG TABLET.DR PO (10:03)
[2024-10-04] MEDS: Aspirin 81 MG TAB.CHEW PO (10:03)
[2024-10-04 10:04] VITALS: BP 124/63; PULSE 74
[2024-10-04] MEDS: traZODone HCL 25 MG HALFTAB PO ×3 (10:04→16:46)
[2024-10-04] MEDS: Acetaminophen 325 MG TABLET 650 MG PO (10:04)
[2024-10-04] MEDS: Metoprolol Succinate ER 25 MG TAB.ER.24H PO (10:04)
[2024-10-04] MEDS: Cholecalciferol (Vitamin D3) 25 MCG TABLET 50 MCG PO (10:04)
[2024-10-04] MEDS: Fluticasone/Umeclidinium/Vilanterol 100/62.5/25 BLST.W.DEV 1 PUFF INHALE (10:05)
--- NOTE | 2024-10-04 17:27 | HO.PSYCHPN ---
Subjective Subjective Date of Service: 10/04/24 Reason For Visit: SI Interim History: doing well. both son and daughter visited yesterday. they agreed to visit her at her apartment more often after discharge. capsaicin worked well. planning for sunday discharge. Mental Status Exam Mental Status Exam Narrative: calm, cooperative, pleasant. adequately dressed and groomed. less PMR. speech nml rate, amount, loudness, latency. decr tone. thoughts linear and logical, affect flexible, normo-intense, non-labile. mood improved. denies SI. no HI/AVH expressed. Diagnostics Vital Signs (24Hr): Vital Signs - 24 hr 10/03/24 19:45 10/03/24 20:09 10/04/24 08:35 Temperature 99.1 F 98.0 F Pulse Rate 78 74 Respiratory Rate 18 14 Blood Pressure 118/52 L 118/52 L 124/63 Pulse Oximetry 97 92 Oxygen Delivery Method Nasal Cannula Nasal Cannula Oxygen Flow Rate 3 3 10/04/24 09:59 10/04/24 10:04 Temperature Pulse Rate 74 Respiratory Rate Blood Pressure 124/63 124/63 Pulse Oximetry Oxygen Delivery Method Oxygen Flow Rate BMI result Body Mass Index 37.6 Labs 09/26/24 14:45 10/03/24 08:08 Labs: Laboratory Results - last 48 hr 10/03/24 08:08 Creatinine 0.67 Estim Creat Clear Calc 110.6 Estimated GFR > 60 Imaging Radiology Impressions: ITS Impressions Chest X-Ray 10/01/24 19:20 IMPRESSION: Bilateral pleural effusions, right greater than left. Electronically signed by: Jacob Suarez MD 10/02/2024 07:14 AM EDT Medications Medications Current Medications Acetaminophen (Acetaminophen 325 Mg Tablet) 650 mg PO Q6H PRN PRN Reason: Headache/Pain, Scale 1-10 Last Admin: 10/04/24 10:04 Dose: 650 mg Al Hydroxide/Mg Hydroxide (Magnesium Hydrox/Alum Hydrox 30 Ml Oral.Susp) 30 ml PO Q6H PRN PRN Reason: Heartburn/Nausea Albuterol Sulfate (Albuterol Sulfate 90 Mcg 8 Gm Inhaler) 2 puff INHALE Q4H PRN PRN Reason: Shortness Of Breath/Wheezing Apixaban (Apixaban 5 Mg Tablet) 5 mg PO BID PENDING SALE TO [facility] Last Admin: 10/04/24 10:02 Dose: 5 mg Aspirin (Aspirin 81 Mg Tab.Chew) 81 mg PO DAILY PENDING SALE TO [facility] Last Admin: 10/04/24 10:03 Dose: 81 mg Atorvastatin Calcium (Atorvastatin Calcium 40 Mg Tablet) 40 mg PO BEDTIME PENDING SALE TO [facility] Last Admin: 10/03/24 20:11 Dose: 40 mg Bumetanide (Bumetanide 1 Mg Tablet) 2 mg PO DAILY PENDING SALE TO [facility]; Protocol Last Admin: 10/04/24 09:59 Dose: 2 mg Bupropion HCl (Bupropion Hcl Xl 300 Mg Tab.Er.24h) 300 mg PO DAILY PENDING SALE TO [facility] Last Admin: 10/04/24 09:59 Dose: 300 mg Capsaicin (Capsaicin 0.025% Cream 60 Gm Tube) 1 appl TOPICAL QID PRN; Protocol PRN Reason: low back pain Last Admin: 10/04/24 09:58 Dose: 1 appl Cefuroxime Axetil (Cefuroxime Axetil 250 Mg Tablet) 250 mg PO BID PENDING SALE TO [facility] Last Admin: 10/04/24 10:03 Dose: 250 mg Cyclobenzaprine HCl (Cyclobenzaprine Hcl 10 Mg Tablet) 10 mg PO BID PENDING SALE TO [facility] Last Admin: 10/04/24 09:59 Dose: 10 mg Ferrous Sulfate (Ferrous Sulfate 324 Mg Tablet.Dr) 324 mg PO DAILY PENDING SALE TO [facility] Last Admin: 10/04/24 10:03 Dose: 324 mg Fluoxetine HCl (Fluoxetine Hcl 20 Mg Capsule) 20 mg PO DAILY PENDING SALE TO [facility] Last Admin: 10/04/24 10:03 Dose: 20 mg Fluticasone/Umeclidinium/Vilanterol (Fluticasone/Umeclidinium/Vilanterol 100/62.5/25 Blst.W.Dev) 1 puff INHALE RDAILY PENDING SALE TO [facility] Last Admin: 10/04/24 10:05 Dose: 1 puff Gabapentin (Gabapentin 400 Mg Capsule) 800 mg PO TID PENDING SALE TO [facility] Last Admin: 10/04/24 15:26 Dose: 800 mg Hydroxyzine HCl (Hydroxyzine Hcl 25 Mg Tablet) 25 mg PO Q6H PRN PRN Reason: mild anxiety Last Admin: 10/03/24 16:59 Dose: 25 mg Lidocaine (Lidocaine 4 % Patch Adh..Patch) 1 patch TRANSDERMA DAILY PENDING SALE TO [facility]; Protocol Last Admin: 10/04/24 10:05 Dose: Not Given Lorazepam (Lorazepam 1 Mg Tablet) 1 mg PO TID PENDING SALE TO [facility] Last Admin: 10/04/24 15:26 Dose: 1 mg Magnesium Hydroxide (Milk Of Magnesia 30 Ml Oral.Susp) 30 ml PO DAILY PRN PRN Reason: Constipation Melatonin (Melatonin 3 Mg Tablet) 3 mg PO BEDTIME PENDING SALE TO [facility] Last Admin: 10/03/24 20:10 Dose: 3 mg Metformin HCl (Metformin Hcl 500 Mg Tablet) 500 mg PO DAILY PENDING SALE TO [facility] Last Admin: 10/04/24 10:03 Dose: 500 mg Methenamine Hippurate (Methenamine Hippurate 1 Gm Tablet) 1 gm PO DAILY PENDING SALE TO [facility] Last Admin: 10/04/24 09:59 Dose: 1 gm Metoprolol Succinate (Metoprolol Succinate Er 25 Mg Tab.Er.24h) 25 mg PO DAILY PENDING SALE TO [facility]; Protocol Last Admin: 10/04/24 10:04 Dose: 25 mg Nicotine (Nicotine 21 Mg Patch.Td24) 21 mg TRANSDERMA DAILY PENDING SALE TO [facility] Last Admin: 10/04/24 10:01 Dose: 21 mg Nicotine Polacrilex (Nicotine Polacrilex Lozenge 4 Mg Lozenge) 4 mg BUCCAL Q2H PRN PRN Reason: Nicotine Cravings Last Admin: 09/27/24 19:12 Dose: 4 mg Oxcarbazepine (Oxcarbazepine 300 Mg Tablet) 600 mg PO BID PENDING SALE TO [facility] Last Admin: 10/04/24 10:02 Dose: 600 mg Potassium Chloride (Potassium Chloride Er 10 Meq Tablet.Er) 10 meq PO DAILY PENDING SALE TO [facility] Last Admin: 10/04/24 10:03 Dose: 10 meq Prazosin HCl (Prazosin Hcl 1 Mg Capsule) 2 mg PO BEDTIME PENDING SALE TO [facility]; Protocol Last Admin: 10/03/24 20:09 Dose: 2 mg Quetiapine Fumarate (Quetiapine Fumarate 400 Mg Tablet) 400 mg PO BEDTIME PENDING SALE TO [facility] Last Admin: 10/03/24 20:10 Dose: 400 mg Trazodone HCl (Trazodone Hcl 25 Mg Halftab) 25 mg PO TIDWM PENDING SALE TO [facility] Last Admin: 10/04/24 16:46 Dose: 25 mg Vitamin D (Cholecalciferol (Vitamin D3) 25 Mcg Tablet) 50 mcg PO DAILY PENDING SALE TO [facility] Last Admin: 10/04/24 10:04 Dose: 50 mcg Allergies Allergies Allergy/AdvReac Type Severity Reaction Status Date / Time sertraline [From Zoloft] Allergy Intermediate Nausea and Verified 09/26/24 14:12 Vomiting Penicillins Allergy Mild RASH Verified 09/26/24 14:12 ciprofloxacin AdvReac Intermediate Nausea and Verified 09/26/24 14:12 Vomiting Assessment & Plan Assessment & Plan (1) Bipolar disorder: Status: Acute Code(s): F31.9 - Bipolar disorder, unspecified Plan Pt is a 64 yo female, with hx of Bipolar disorder, recently dc'd from [facility], self presents for SI. Pt says she was feeling good when she was discharged a few weeks ago; she's not sure why but started to become depressed with return of negative self talk. Depressed worsened and she developed SI with a plan that she will not reveal. She wanted to stay safe so she self-presented. Pt reports continued adherence with medications. Pt considers it possible she became lonely these past weeks since unable to go to her day program. Denies AVH. formulation/clinical reasoning: not sure trigger for return of depression discussed medication options, risks/side-effects and pt decided on Wellbutrin trial over prozac increase Hospital course: 09/27: start Wellbutrin XL 150mg. continue home meds. on home . 09/28: still depressed but says mood a little better; SI less frequent, waning. Says feeling Jumpy inside today and agrees it might be due to Wellbutrin; however, she wants to remain on it and see if she adjusts to it. 09/29: depressed, endorsing SI but won't divulge plan. continue current mgmt. T/C increase in wellbutrin to 300 mg daily after 3 doses. risk of Sz reviewed with pt. 09/30: remains depressed, denies SI. increase wellbutrin tomorrow. unable to identify goals for discharge. sedated in afternoon, per staff. self-defeating behaviors such as refusing diuretic and TEDS while having B/L LE edema. 10/01: mood a little better, denies SI. no problems with wellbutrin dosing increase today. PHP intake next sunday. planning to DC sometime next week. 10/02: seen by hospitalist for borderline O2 sats on 4LNC. no evidence of COPD exacerbation, plan made for incentive spirometry. reports slept well last night. plan to continue regimen into next week, then discharge to PHP intake on sunday. per staff, endorsing SI last night and refusing to divulge plan. 10/03: denies SI. asking for sunday discharge. sleeping well. will continue current mgmt and plan for sunday. 10/04: continues well. discharge sunday. Reason for continued inpatient stay Substantial Risk for: inability to function and rapid decompensation Time Spent With Patient Time: Total time managing care of this patient today ____ minutes.
--- NOTE | 2024-10-04 17:45 | PC.NURSE ---
Pt reported sneezing and congestion to this automobile service writer, who reported this to Dr. Cheng. Answer pending.
[2024-10-04 18:47] VITALS: BP 111/68; PULSE 80; RESP 16; TEMP 36.7; O2SAT 95
[2024-10-04] MEDS: Melatonin 3 MG TABLET PO (20:57)
[2024-10-04] MEDS: QUEtiapine Fumarate 400 MG TABLET PO (20:57)
[2024-10-04 20:58] VITALS: BP 133/73
[2024-10-04] MEDS: Atorvastatin Calcium 40 MG TABLET PO (20:58)
[2024-10-04] MEDS: Prazosin HCL 1 MG CAPSULE 2 MG PO (20:58)
[2024-10-04] MEDS: hydrOXYzine HCL 25 MG TABLET PO (21:17)
[2024-10-05 07:43] VITALS: BP 105/53; PULSE 65; RESP 16; TEMP 36.5; O2SAT 92
[2024-10-05 09:37] VITALS: BP 124/58
[2024-10-05] MEDS: Potassium Chloride ER 10 MEQ TABLET.ER PO (09:39)
[2024-10-05] MEDS: Cholecalciferol (Vitamin D3) 25 MCG TABLET 50 MCG PO (09:39)
[2024-10-05] MEDS: cefuroxime axetiL 250 MG TABLET PO ×2 (09:39→20:23)
[2024-10-05] MEDS: traZODone HCL 25 MG HALFTAB PO ×3 (09:39→17:03)
[2024-10-05] MEDS: metFORMIN HCl 500 MG TABLET PO (09:40)
[2024-10-05] MEDS: Gabapentin 400 MG CAPSULE 800 MG PO ×3 (09:40→20:23)
[2024-10-05] MEDS: Bumetanide 1 MG TABLET 2 MG PO (09:40)
[2024-10-05] MEDS: Aspirin 81 MG TAB.CHEW PO (09:40)
[2024-10-05] MEDS: Methenamine Hippurate 1 GM TABLET PO (09:40)
[2024-10-05] MEDS: Cyclobenzaprine HCl 10 MG TABLET PO ×2 (09:40→20:23)
[2024-10-05] MEDS: LORazepam 1 MG TABLET PO ×3 (09:40→20:22)
[2024-10-05] MEDS: FLUoxetine HCl 20 MG CAPSULE PO (09:40)
[2024-10-05] MEDS: OXcarbazepine 300 MG TABLET 600 MG PO ×2 (09:40→20:23)
[2024-10-05] MEDS: Metoprolol Succinate ER 25 MG TAB.ER.24H PO (09:41)
[2024-10-05] MEDS: buPROPion HCl XL 300 MG TAB.ER.24H PO (09:41)
[2024-10-05] MEDS: Ferrous Sulfate 324 MG TABLET.DR PO (09:41)
[2024-10-05] MEDS: Apixaban 5 MG TABLET PO ×2 (09:41→20:22)
[2024-10-05] MEDS: Lidocaine 4 % Patch ADH..PATCH 1 PATCH TRANSDERMA (09:44)
[2024-10-05] MEDS: Fluticasone/Umeclidinium/Vilanterol 100/62.5/25 BLST.W.DEV 1 PUFF INHALE (09:44)
[2024-10-05] MEDS: Nicotine 21 MG PATCH.TD24 TRANSDERMA (09:47)
[2024-10-05] MEDS: Capsaicin 0.025% Cream 60 GM TUBE 1 APPL TOPICAL (12:02)
--- NOTE | 2024-10-05 12:05 | PM.PSYDC ---
DS: Providers Provider Date of Service: 10/05/24 Date of admission: 09/26/24 21:25 Date of discharge: 10/06/24 Primary care physician: Kate Omalley Consults: 10/01/24 17:35 Consult to Hospitalist Routine Comment: Consulting Provider: [facility] Hospitalists Reason For Exam: on home 02; destating to 90 DS: Diagnosis Discharge Diagnosis (1) Bipolar disorder: Status: Acute DS: Medications Discharge Medications Home Medications: Home Medications ?Medication ?Instructions ?Recorded ?Confirmed lorazepam 1 mg tablet 1 mg PO TID 08/19/24 09/26/24 atorvastatin 80 mg tablet 40 mg PO BEDTIME 09/26/24 09/26/24 bumetanide 1 mg tablet 2 mg PO DAILY 09/26/24 09/26/24 cefpodoxime 100 mg tablet 100 mg PO BID 09/26/24 09/26/24 cholecalciferol (vitamin D3) 25 50 mcg PO DAILY 09/26/24 09/26/24 mcg (1,000 unit) tablet estradiol 0.01% (0.1 mg/gram) 1 g vaginal 2XW 09/26/24 09/26/24 vaginal cream ferrous sulfate 325 mg (65 mg 325 mg PO DAILY 09/26/24 09/26/24 iron) tablet,delayed release methenamine hippurate 1,000 mg PO DAILY 09/26/24 09/26/24 oxcarbazepine 300 mg tablet 600 mg PO BID 09/26/24 09/26/24 potassium chloride 10 mEq 10 meq PO 1XD 09/26/24 09/26/24 tablet,extended release(part/cryst) trazodone 50 mg tablet 25 mg PO TIDWMEAL 09/26/24 09/26/24 Previous Rx's ?Medication ?Instructions ?Recorded acetaminophen 325 mg tablet 650 mg (2 x 325 mg) PO Q6H PRN 09/01/24 Headache/Pain, Scale 1-10 #0 tabs acetaminophen 325 mg tablet 650 mg (2 x 325 mg) PO TID #0 tabs 09/01/24 albuterol sulfate 90 mcg/actuation 2 puff inhalation Q4H PRN 09/01/24 aerosol inhaler (Ventolin HFA) Shortness Of Breath/Wheezing #0 grams apixaban 5 mg tablet (Eliquis) 5 mg PO BID #0 tabs 09/01/24 aspirin 81 mg chewable tablet 81 mg PO DAILY #0 tabs 09/01/24 cyclobenzaprine 10 mg tablet 10 mg PO BID #0 tabs 09/01/24 fluoxetine 20 mg capsule 20 mg PO DAILY #0 caps 09/01/24 fluticasone fur. 100 mcg-umeclid 1 inh inhalation RDAILY #0 ea 09/01/24 62.5 mcg-vilant 25 mcg inhalat.powder (Trelegy Ellipta) gabapentin 400 mg capsule 800 mg (2 x 400 mg) PO TID #0 caps 09/01/24 melatonin 3 mg tablet 3 mg PO BEDTIME #0 tabs 09/01/24 metformin 500 mg tablet 500 mg PO DAILY #0 tabs 09/01/24 metoprolol succinate 25 mg 25 mg PO DAILY #0 tabs 09/01/24 tablet,extended release 24 hr nicotine 14 mg/24 hr daily 14 mg transdermal DAILY #0 ea 09/01/24 transdermal patch prazosin 1 mg capsule 2 mg PO BEDTIME #0 caps 09/01/24 quetiapine 400 mg tablet 400 mg PO BEDTIME #0 tabs 09/01/24 bupropion HCl 300 mg 24 hr tablet, 300 mg PO DAILY 30 days #30 tabs 10/05/24 extended release capsaicin 0.025 % topical cream 1 appl topical QID PRN low back 10/05/24 pain 30 days #50 grams hydroxyzine HCl 25 mg tablet 25 mg PO BID PRN mild anxiety 30 10/05/24 days #60 tabs lidocaine 4 % topical patch 1 patch transdermal DAILY 30 days 10/05/24 (Lidocaine Pain Relief) #30 ea Mental Status Exam Mental Status Exam Narrative: calm, cooperative, pleasant. adequately dressed and groomed. less PMR. speech nml rate, amount, loudness, latency. decr tone. thoughts linear and logical, affect flexible, normo-intense, non-labile. mood tired. denies SI/HI/AVH. Data Data Completed and Pending Completed studies during hospitalization [Text1]: 10/03/24 08:08 Creatinine 0.67 Estim Creat Clear Calc 110.6 Estimated GFR > 60 Imaging Diagnostic Imaging Impressions Chest X-Ray 10/01/24 19:20 IMPRESSION: Bilateral pleural effusions, right greater than left. Electronically signed by: Jacob Suarez MD 10/02/2024 07:14 AM EDT RP DS: Summary Hospital Course Hospital Course: per 09/27 admission note: HPI Subjective Notes: Fall Warning and Conditional Voluntary Narrative: Pt is a 64 yo female, with hx of Bipolar disorder, recently [facility]'d from [facility], self presents for SI. Pt says she was feeling good when she was discharged a few weeks ago; she's not sure why but started to become depressed with return of negative self talk. Depressed worsened and she developed SI with a plan that she will not reveal. She wanted to stay safe so she self-presented. Pt reports continued adherence with medications. Pt considers it possible she became lonely these past weeks since unable to go to her day program. Denies AVH. patient seen at 4pm on 09/27/24 Past Psychiatric History: She reported that she was diagnosed of bipolar depression in her 20s and she had several admissions into the hospital a certain point she was admitted at [facility] where she received ECT and here more than 25 years ago. She denies substance abuse but she is a heavy smoker half a pack of cigarettes every day. The patient is COPD oxygen dependent. Medical Evaluation Reviewed: Hospitalist Homero Pending [facility] Family History: deferred Social History: lives alone with her cat good relationship w/ children Substance History: denies Trauma History: deferred Precis: Pt is a 64 yo female, with hx of Bipolar disorder, recently dc'd from [facility], self presents for SI. Pt says she was feeling good when she was discharged a few weeks ago; she's not sure why but started to become depressed with return of negative self talk. Depressed worsened and she developed SI with a plan that she will not reveal. She wanted to stay safe so she self-presented. Pt reports continued adherence with medications. Pt considers it possible she became lonely these past weeks since unable to go to her day program. Denies AVH. formulation/clinical reasoning: not sure trigger for return of depression discussed medication options, risks/side-effects and pt decided on Wellbutrin trial over prozac increase Hospital course: 09/27: start Wellbutrin XL 150mg. continue home meds. on home . 09/28: still depressed but says mood a little better; SI less frequent, waning. Says feeling Jumpy inside today and agrees it might be due to Wellbutrin; however, she wants to remain on it and see if she adjusts to it. 09/29: depressed, endorsing SI but won't divulge plan. continue current mgmt. T/C increase in wellbutrin to 300 mg daily after 3 doses. risk of Sz reviewed with pt. 09/30: remains depressed, denies SI. increase wellbutrin tomorrow. unable to identify goals for discharge. sedated in afternoon, per staff. self-defeating behaviors such as refusing diuretic and TEDS while having B/L LE edema. 10/01: mood a little better, denies SI. no problems with wellbutrin dosing increase today. PHP intake next sunday. planning to DC sometime next week. 10/02: seen by hospitalist for borderline O2 sats on 4LNC. no evidence of COPD exacerbation, plan made for incentive spirometry. reports slept well last night. plan to continue regimen into next week, then discharge to PHP intake on sunday. per staff, endorsing SI last night and refusing to divulge plan. 10/03: denies SI. asking for sunday discharge. sleeping well. will continue current mgmt and plan for sunday. 10/04: continues well. discharge sunday. 10/05: meds reviewed and reconciled. safe, stable. discharge tomorrow as per plan. 10/06: stable overnight. discharged as per plan. Time Spent with Patient Time attestation: Total time managing care of this patient today __35__ minutes. Discharge Plan Discharge Anticipated Discharge Date/Time: 10/06/24 11:00 Patient Disposition: Home, Self-Care Discharge Diagnosis: Depressive Disorder Referrals: Partial Hospitalization Program (PHP) [Other] - 10/10/24 8:00 am ([facility] the hospital campus in a building behind the main hospital. Follow the silver signs to Center for and enter the brick building attached to the red trailer from [address]. ) Lina Szymanski (Psychiatry) [Other] - 10/14/24 4:00 pm (TELEHEALTH APPOINTMENT) Visiting Nurse Services [Other] - 1 Week (*You will be set up with a nurse that will come to the home for medication management. Please discuss any questions or concerns with your social services specialist through the program [facility]. ) Dede Pimentel NP [Nurse Practitioner] - 1 Week (10-06-24 Please contact your primary care provider to schedule a follow up appt within 7-10 days of discharge. We attempted to call on your behalf and reached voicemail.) Discharge Medications: New hydroxyzine HCl 25 mg Tablet 25 mg PO BID PRN (Reason: mild anxiety) 30 Days Qty: 60 0RF capsaicin 0.025 % Cream 1 appl topical QID PRN (Reason: low back pain) 30 Days Qty: 50 0RF Protocol: Apply to: Apply to: low back bupropion HCl 300 mg Tablet Extended Release 24 Hr 300 mg PO DAILY 30 Days Qty: 30 0RF lidocaine [Lidocaine Pain Relief] 4 % Adhesive Patch,Medicated 1 patch transdermal DAILY 30 Days Qty: 30 0RF Protocol: Apply to: Apply to: low back Continued lorazepam 1 mg tablet 1 mg PO TID cyclobenzaprine 10 mg Tablet 10 mg PO BID Qty: 0 0RF acetaminophen 325 mg Tablet 650 mg PO TID Qty: 0 0RF nicotine 14 mg/24 hr Patch 24 Hour 14 mg transdermal DAILY Qty: 0 0RF prazosin 1 mg Capsule 2 mg PO BEDTIME Qty: 0 0RF Protocol: Hold for SBP< HOLD for SBP < : 90 gabapentin 400 mg Capsule 800 mg PO TID Qty: 0 0RF aspirin 81 mg Tablet,Chewable 81 mg PO DAILY Qty: 0 0RF metoprolol succinate 25 mg Tablet Extended Release 24 Hr 25 mg PO DAILY Qty: 0 0RF Protocol: Hold for SBP/HR < HOLD for SBP < : 90 HOLD for HR < : 60 albuterol sulfate [Ventolin HFA] 90 mcg/actuation Hfa Aerosol Inhaler 2 puff inhalation Q4H PRN (Reason: Shortness Of Breath/Wheezing) Qty: 0 0RF fluoxetine 20 mg Capsule 20 mg PO DAILY Qty: 0 0RF quetiapine 400 mg Tablet 400 mg PO BEDTIME Qty: 0 0RF Eliquis 5 mg Tablet 5 mg PO BID Qty: 0 0RF Trelegy Ellipta 100-62.5-25 mcg Blister With Device 1 inh inhalation RDAILY Qty: 0 0RF metformin 500 mg Tablet 500 mg PO DAILY Qty: 0 0RF melatonin 3 mg Tablet 3 mg PO BEDTIME Qty: 0 0RF atorvastatin 80 mg tablet 40 mg PO BEDTIME trazodone 50 mg tablet 25 mg PO TIDWMEAL oxcarbazepine 300 mg tablet 600 mg PO BID bumetanide 1 mg tablet 2 mg PO DAILY Protocol: Hold for SBP< HOLD for SBP < : 90 potassium chloride 10 mEq tablet,ER particles/crystals 10 meq PO 1XD cholecalciferol (vitamin D3) 25 mcg (1,000 unit) tablet 50 mcg PO DAILY estradiol 0.01 % (0.1 mg/gram) Cream 1 g VAGINAL 2XW ferrous sulfate 325 mg (65 mg iron) Tablet,Delayed Release (Dr/Ec) 325 mg PO DAILY methenamine hippurate tablet 1,000 mg PO DAILY Discontinued acetaminophen 325 mg Tablet 650 mg PO Q6H PRN (Reason: Headache/Pain, Scale 1-10) Qty: 0 0RF cefpodoxime 100 mg Tablet 100 mg PO BID Rx Instructions: must administer with a meal/food Discharge Orders: Discharge Order (Routine); Ordered 10/06/24 Ordered By: Sylvester Cheng Diet: Diabetic diet Activity on Discharge: As tolerated Stand Alone Forms: Patient Portal Discharge page, Community Support Print Language: Unable To Collect Care Plan Goals: remain safe and stable in the outpatient treatment setting Health Concerns: none Plan of Treatment: take medications as prescribed, attend appointments as scheduled Assessment: not at imminent risk of harm to self or others Discharge Date/Time: 10/06/24 10:57
[2024-10-05] MEDS: hydrOXYzine HCL 25 MG TABLET PO ×2 (17:04→23:18)
[2024-10-05 20:00] VITALS: BP 114/71; PULSE 74; RESP 16; TEMP 37; O2SAT 96
[2024-10-05] MEDS: Melatonin 3 MG TABLET PO (20:22)
[2024-10-05] MEDS: QUEtiapine Fumarate 400 MG TABLET PO (20:22)
[2024-10-05] MEDS: Atorvastatin Calcium 40 MG TABLET PO (20:22)
[2024-10-05] MEDS: Prazosin HCL 1 MG CAPSULE 2 MG PO (20:25)
[2024-10-06 07:33] LABS: Glucose, Whole Blood 96 mg/dL (60-115)
[2024-10-06 08:15] VITALS: BP 131/70; PULSE 65; RESP 16; TEMP 36.6; O2SAT 94
[2024-10-06] MEDS: Fluticasone/Umeclidinium/Vilanterol 100/62.5/25 BLST.W.DEV 1 PUFF INHALE (09:01)
[2024-10-06] MEDS: cefuroxime axetiL 250 MG TABLET PO (09:03)
[2024-10-06] MEDS: FLUoxetine HCl 20 MG CAPSULE PO (09:03)
[2024-10-06] MEDS: Gabapentin 400 MG CAPSULE 800 MG PO (09:03)
[2024-10-06 09:04] VITALS: BP 131/70
[2024-10-06] MEDS: Aspirin 81 MG TAB.CHEW PO (09:04)
[2024-10-06] MEDS: Bumetanide 1 MG TABLET 2 MG PO (09:04)
[2024-10-06 09:05] VITALS: BP 131/70; PULSE 65
[2024-10-06] MEDS: traZODone HCL 25 MG HALFTAB PO (09:05)
[2024-10-06] MEDS: Metoprolol Succinate ER 25 MG TAB.ER.24H PO (09:05)
[2024-10-06] MEDS: Potassium Chloride ER 10 MEQ TABLET.ER PO (09:06)
[2024-10-06] MEDS: Cholecalciferol (Vitamin D3) 25 MCG TABLET 50 MCG PO (09:06)
[2024-10-06] MEDS: OXcarbazepine 300 MG TABLET 600 MG PO (09:06)
[2024-10-06] MEDS: Apixaban 5 MG TABLET PO (09:07)
[2024-10-06] MEDS: Cyclobenzaprine HCl 10 MG TABLET PO (09:07)
[2024-10-06] MEDS: Methenamine Hippurate 1 GM TABLET PO (09:08)
[2024-10-06] MEDS: metFORMIN HCl 500 MG TABLET PO (09:08)
[2024-10-06] MEDS: Ferrous Sulfate 324 MG TABLET.DR PO (09:08)
[2024-10-06] MEDS: LORazepam 1 MG TABLET PO (09:08)
[2024-10-06] MEDS: buPROPion HCl XL 300 MG TAB.ER.24H PO (09:08)
[2024-10-06] MEDS: Nicotine 21 MG PATCH.TD24 TRANSDERMA (09:10)
[2024-10-06] MEDS: Lidocaine 4 % Patch ADH..PATCH 1 PATCH TRANSDERMA (09:11)
[2024-10-06] MEDS: Capsaicin 0.025% Cream 60 GM TUBE 1 APPL TOPICAL (09:18)
[2024-10-06] MEDS: hydrOXYzine HCL 25 MG TABLET PO (10:24)
== END 2024-10-06 10:57 | disposition home or self-care (01) | DRG 885 ==
LOC: HO.ED 16:31 → HO.PADLT16 22:10
PROVIDERS: Physician Assistant Medical; Student in an Organized Health Care Education/Training Program; Admitting Provider Psychiatry & Neurology Psychiatry; Emergency Provider Emergency Medicine; Visit Provider Psychiatry & Neurology Psychiatry
DX: F31.30 Bipolar disorder, current episode depressed, mild or moderate severity, unspecified (principal); R45.851 Suicidal ideations; J96.12 Chronic respiratory failure with hypercapnia; J96.11 Chronic respiratory failure with hypoxia; F17.210 Nicotine dependence, cigarettes, uncomplicated; Z71.6 Tobacco abuse counseling; Z23 Encounter for immunization; Z20.822 Contact with and (suspected) exposure to COVID-19; J44.9 Chronic obstructive pulmonary disease, unspecified; Z99.81 Dependence on supplemental oxygen; Z79.82 Long term (current) use of aspirin; Z79.899 Other long term (current) drug therapy
CPT/HCPCS: 36415; 71045; 80053; 80061; 80143; 80179; 80307; 81001; 82565; 82947; 83036; 85025; 87635; 90656; 93005; 99285; S9485

== ENCOUNTER → 2024-09-26 14:16 | Outpatient (BNV) | payer OTHER, SELFPAY | PROVIDERS: Emergency Provider Emergency Medicine; Visit Provider Internal Medicine | DX: Z13.6 Encounter for screening for cardiovascular disorders (principal) | CPT/HCPCS: 93010 ==

== ENCOUNTER 2024-09-26 21:25 | Outpatient (BNV) | payer OTHER, SELFPAY | END 2024-10-01 19:20 | PROVIDERS: Admitting Provider Psychiatry & Neurology Psychiatry; Emergency Provider Emergency Medicine; Visit Provider Radiology Diagnostic Radiology | DX: J90 Pleural effusion, not elsewhere classified (principal) | CPT/HCPCS: 71045 ==

== ENCOUNTER → 2024-09-26 21:25 | Outpatient (BNV) | payer OTHER, SELFPAY | PROVIDERS: Admitting Provider Psychiatry & Neurology Psychiatry; Emergency Provider Emergency Medicine; Visit Provider Psychiatry & Neurology Psychiatry | DX: F31.4 Bipolar disorder, current episode depressed, severe, without psychotic features (principal) | CPT/HCPCS: 90792; 99231; 99232 ==

== ENCOUNTER 2024-10-16 13:15 | Emergency (ER) | payer OTHER, SELFPAY ==
--- NOTE | ~2024-10-16 | XR_ITS ---
EXAMINATION: XR KNEE, LEFT CLINICAL INFORMATION: fall COMPARISON: None available. TECHNIQUE: Four views of the left knee. FINDINGS: Chondrocalcinosis in the menisci, bilaterally. Joint space narrowing involving the femoral-tibial tibiopatellar joint spaces. Marginal osteophyte formation and medial femoral condyle centimeter. No acute cortical disruption or malalignment. No suprapatellar bursa joint effusion. Osteopenia versus osteoporosis. XR/XR knee LT 3V IMPRESSION: Tricompartmental osteoarthrosis. No acute fracture or dislocation. Consider CPPD. Electronically signed by: Jacob Suarez MD 10/16/2024 02:38 PM EDT
--- NOTE | ~2024-10-16 | XR_ITS ---
EXAMINATION: XR SHOULDER, LEFT CLINICAL INFORMATION: fall COMPARISON: None available. TECHNIQUE: AP external rotation, Grashey, scapular Y, and axillary views of the left shoulder. FINDINGS: Normal bone mineralization. No fracture, dislocation, or suspicious bone lesion. Normal alignment. The glenohumeral joint demonstrates mild degenerative arthritis. The AC joint demonstrates minimal spurring. There is a type II acromion. No undersurface spurring. The subacromial space is preserved. Mild calcification of the infraspinatus tendon abutting the footplate attachment. Remainder of the soft tissue and bony structures appear normal. XR/XR shoulder LT min 2V IMPRESSION: 1. No acute bony abnormality. 2. Mild calcific tendinopathy of the infraspinatus tendon. 3. Mild degenerative arthritis in the common femoral joint. Electronically signed by: Celestine Fischer MD 10/16/2024 02:40 PM EDT
--- NOTE | ~2024-10-16 | CT_ITS ---
EXAMINATION: CT CERVICAL SPINE WITHOUT CONTRAST CLINICAL INFORMATION: Fall, neck pain. COMPARISON: None available. TECHNIQUE: Spiral CT imaging of the cervical spine performed in axial plane without contrast. Multiplanar reformatted images were constructed from the axial data set. This CT examination was performed using dose optimization techniques as appropriate, variously including the following: *Automated exposure control *Adjustment of mA and/or kV according to patient size (this includes techniques or standardized protocols for targeted exams where dose is matched to indication/reason for exam; i.e. extremities or head) *Use of iterative reconstruction technique FINDINGS: CORONAL ALIGNMENT: -There is a mild right convex scoliosis. SAGITTAL ALIGNMENT: -Minimal straightening of the normal lordosis. -No subluxations. C1-C2 AND CRANIOCERVICAL JUNCTION: -Intact and normally aligned. Moderate degenerative arthritis of the atlantoaxial joint. VERTEBRAL BODIES AND FACETS: -No fracture, compression deformity, or traumatic malalignment. No suspicious bone lesion. -Normal facet alignment. There is partial fusion of the left C3-4 facets. Mild multilevel degenerative facet changes bilaterally. DISCS: -Mild to moderate diffuse disc space degeneration most significant at C4-5, C5-6, and C6-7. CENTRAL CANAL: -No evidence of high-grade central canal narrowing or large disc herniation allowing for modality limitations. PREVERTEBRAL AND PARAVERTEBRAL SOFT TISSUES: -No prevertebral or paraspinous soft tissue swelling or abnormal fluid collection. -Normal-appearing thyroid gland. -Mild carotid bulb calcifications bilaterally. -There appears to be some ingested food material within the superior esophagus. This could be on the basis of reflux or obstruction. LUNG APICES: -Clear bilaterally without pneumothorax. CT/CT cervical spine wo IV con IMPRESSION: 1. No CT evidence of acute cervical spine fracture or injury. 2. Mild to moderate degenerative spondylosis, and mild right convex scoliosis. 3. There appears to be retained food within the superior esophagus. This could be on the basis of reflux or obstruction. Electronically signed by: Celestine Fischer MD 10/16/2024 02:50 PM EDT
--- NOTE | ~2024-10-16 | CT_ITS ---
EXAMINATION: CT HEAD WITHOUT CONTRAST CLINICAL INFORMATION: fall ?HS COMPARISON: February 10, 2009 is not available on PACS system. TECHNIQUE: Contiguous axial imaging was performed from the skull base to vertex without intravenous administration of contrast. This CT examination was performed using dose optimization techniques as appropriate, variously including the following: *Automated exposure control *Adjustment of mA and/or kV according to patient size (this includes techniques or standardized protocols for targeted exams where dose is matched to indication/reason for exam; i.e. extremities or head) *Use of iterative reconstruction technique DLP: 1394 mGy-cm FINDINGS: No acute intracranial hemorrhage, mass effect, midline shift, hydrocephalus or herniation. Multifocal old lacunar infarcts, basal ganglia, extracapsular, siddiqui radiata and cerebellar hemispheres. Fernandez-white matter differentiation is normal. Prominence of the extra-axial CSF spaces cerebral sulci and ventricles. No acute fracture, bony calvarium. 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 Retention cysts versus polyp, left ethmoid cells. Tympanic cavities and mastoid cells are aerated. CT/CT head/brain wo IV con IMPRESSION: No acute fracture, calvarium. No acute intracranial hemorrhage. Small vessel occlusive disease. Global cerebral atrophy. Electronically signed by: Jacob Suarez MD 10/16/2024 02:41 PM EDT
--- NOTE | ~2024-10-16 | XR_ITS ---
EXAMINATION: XR RIBS, LEFT CLINICAL INFORMATION: fall COMPARISON: October 01, 2024. TECHNIQUE: 3 views of the left ribs were obtained. FINDINGS: Opacity in the mid to lower right hemithorax with a horizontal line pattern. No pneumothorax. Prominence of the interstitial markings. No cortical disruption in the ribs of the left hemithorax No gross of opacity in the left lung. Cardiomediastinal silhouette size is normal. Mild multilevel thoracic spondylosis. Mild S-shaped curvature of the thoracic spine. Degenerative changes in the right acromioclavicular joint. Elevated left shoulder with respect to the opposite side. Vascular clips in the left upper abdomen and likely right upper quadrant abdomen. XR/XR ribs LT min 3V w CXR1V IMPRESSION: Right-sided pleural effusion, moderate volume with likely associated airspace disease right lower lung lobe/right middle lung lobe. Recommend follow-up until resolution. No acute rib fracture, left hemithorax. No pneumothorax. Electronically signed by: Jacob Suarez MD 10/16/2024 02:36 PM EDT
[2024-10-16 13:23] VITALS: BP 101/53; PULSE 76; RESP 16; TEMP 36.4; O2SAT 96; BMI 38.7
--- NOTE | 2024-10-16 13:23 | ED_ITS ---
HPI - Fall General Chief Complaint: Fall Stated Complaint: Chest Pain, Shortness of Breath Related Data Home Medications ?Medication ?Instructions ?Recorded ?Confirmed lorazepam 1 mg tablet 1 mg PO TID 08/19/24 10/14/24 atorvastatin 80 mg tablet 40 mg PO BEDTIME 09/26/24 10/14/24 estradiol 0.01% (0.1 mg/gram) 1 g vaginal 2XW 09/26/24 10/14/24 vaginal cream ferrous sulfate 325 mg (65 mg 325 mg PO DAILY 09/26/24 10/14/24 iron) tablet,delayed release methenamine hippurate 1 g PO DAILY 09/26/24 10/14/24 oxcarbazepine 300 mg tablet 600 mg PO BID 09/26/24 10/14/24 potassium chloride 10 mEq 10 meq PO BID 09/26/24 10/14/24 tablet,extended release(part/cryst) trazodone 50 mg tablet 25 mg PO TIDWMEAL 09/26/24 10/14/24 acetaminophen 500 mg tablet 500 mg PO TID 10/14/24 10/14/24 albuterol sulfate 90 mcg/actuation 2 puff inhalation Q6H PRN 10/14/24 10/14/24 aerosol inhaler (Ventolin HFA) Shortness Of Breath/Wheezing bumetanide 2 mg tablet 2 mg PO DAILY 10/14/24 10/14/24 cholecalciferol (vitamin D3) 50 50 mcg PO DAILY 10/14/24 10/14/24 mcg (2,000 unit) capsule (Vitamin D3) gabapentin 800 mg tablet 800 mg PO TID 10/14/24 10/14/24 hydroxyzine HCl 25 mg tablet 25 mg PO Q6H PRN Itching 10/14/24 10/14/24 metaxalone 800 mg tablet 800 mg PO TID 10/14/24 10/14/24 nicotine 21 mg/24 hr daily 1 patch transdermal DAILY 10/14/24 10/14/24 transdermal patch ondansetron 4 mg disintegrating 8 mg PO Q8H PRN Nausea 10/14/24 10/14/24 tablet phenazopyridine 99.5 mg tablet 99.5 mg PO TID 10/14/24 10/14/24 polyethylene glycol 3350 17 gram 17 g PO DAILY 10/14/24 10/14/24 oral powder packet Previous Rx's ?Medication ?Instructions ?Recorded apixaban 5 mg tablet (Eliquis) 5 mg PO BID #0 tabs 09/01/24 aspirin 81 mg chewable tablet 81 mg PO DAILY #0 tabs 09/01/24 cyclobenzaprine 10 mg tablet 10 mg PO BID #0 tabs 09/01/24 fluoxetine 20 mg capsule 20 mg PO DAILY #0 caps 09/01/24 fluticasone fur. 100 mcg-umeclid 1 inh inhalation RDAILY #0 ea 09/01/24 62.5 mcg-vilant 25 mcg inhalat.powder (Trelegy Ellipta) melatonin 3 mg tablet 3 mg PO BEDTIME #0 tabs 09/01/24 metformin 500 mg tablet 500 mg PO DAILY #0 tabs 09/01/24 metoprolol succinate 25 mg 25 mg PO DAILY #0 tabs 09/01/24 tablet,extended release 24 hr prazosin 1 mg capsule 2 mg PO BEDTIME #0 caps 09/01/24 quetiapine 400 mg tablet 400 mg PO BEDTIME #0 tabs 09/01/24 bupropion HCl 300 mg 24 hr tablet, 300 mg PO DAILY 30 days #30 tabs 10/05/24 extended release capsaicin 0.025 % topical cream 1 appl topical QID PRN low back 10/05/24 pain 30 days #50 grams lidocaine 4 % topical patch 1 patch transdermal DAILY 30 days 10/05/24 (Lidocaine Pain Relief) #30 ea Allergies Allergy/AdvReac Type Severity Reaction Status Date / Time sertraline [From Zoloft] Allergy Intermediate Nausea and Verified 10/16/24 13:26 Vomiting Penicillins Allergy Mild RASH Verified 10/16/24 13:26 ciprofloxacin AdvReac Intermediate Nausea and Verified 10/16/24 13:26 Vomiting PMFSH Past Medical History Medical History (Updated 10/17/24 @ 09:27 by HALLEY Almeida) Ruptured spleen delivery delivered CHF (congestive heart failure) Type II diabetes mellitus History of falling Fibromyalgia O2 dependent COPD (chronic obstructive pulmonary disease) CVA (cerebral vascular accident) Bipolar disorder Surgical History (Updated 10/14/24 @ 11:56 by Loren Spencer RN) History of cholecystectomy Social History Social History Household Members: None Housing: Apartment Do you presently have visiting nurse or other home services: Yes Comment: 1:1 Patient Tobacco Use Status: Current everyday Tobacco user Tobacco use type: Cigarette Cigarette Packs Per Day: 0.5 Cigarettes Per Day: 8 Years Smoked: 45 e-Cigarette/Vaping Use: Never Used Second Hand Smoke Exposure: Yes Substance Use Type: Prescription Drugs Advance Directives: Yes Advance Directives on File: Yes Advance Directives Date on File: 09/02/24 Do you have a plan to hurt others: No Plan service: No Sexual orientation: Straight/Heterosexual Physical Exam 2 Vital Signs: Vital Signs: Last Vital Signs Temp 97.5 F 10/16/24 13:23 Pulse 76 10/16/24 13:23 Resp 16 10/16/24 13:23 BP 101/53 L 10/16/24 13:23 Pulse Ox 96 10/16/24 13:23 O2 Del Method Room Air 10/16/24 13:23 BMI result Body Mass Index 38.7 Course Course Course Narrative: This is a Rapid Medical Exam performed in triage by Shirin Santana PA-C. Full HPI, ROS and PE to be performed by primary ED provider. 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 Unknown head trauma, denies LOC. Admits to DEJESUS, L breast/chest wall pain, L arm pain & L knee pain. was using walking. Takes Eliquis PE: In wheelchair. No appreciable deformities to extremities. Left arm with reproducible tenderness, limited ROM secondary to pain. Nonfocal. Plan: EKG, labs, UA, orthostatics, CT, x-rays Medical Decision Making Lab Data 10/16/24 13:38 10/16/24 13:38 Labs: Lab Results 10/16/24 Range/Units 13:38 WBC 8.0 (4.8-10.8) X10*3/uL RBC 4.30 (4.20-5.50) X10*6/uL Hgb 13.8 (12.0-16.0) g/dl Hct 41.9 (37.0-47.0) % MCV 97.4 (80.0-98.0) fL MCH 32.1 (27.0-33.0) pg MCHC 32.9 (31.0-35.0) g/dl RDW 13.9 (11.0-16.0) % Plt Count 362 (160-400) X10*3/uL MPV 9.1 L (9.4-12.3) fL Immature Gran % (Auto) 0.4 (0.0-0.4) % Neut % (Auto) 61.4 (45-73) % Lymph % (Auto) 29.5 (20-40) % [place] % (Auto) 5.6 (2-11) % Eos % (Auto) 2.3 (0-4) % Baso % (Auto) 0.8 (0-2) % Lymph # (Auto) 2.4 (1.2-4.9) X10*3/uL [place] # (Auto) 0.5 (0.1-1.2) X10*3/uL Eos # (Auto) 0.2 (0.0-0.4) X10*3/uL Baso # (Auto) 0.1 (0.0-0.2) X10*3/uL Abs Immat Gran (auto) 0.03 (0.00-0.03) X10*3/uL Absolute Neuts (auto) 4.9 (2.0-8.3) x10*3/uL Absolute Nucleated RBC 0.000 (0.0-0.012) X10*3/uL Nucleated RBC % (auto) 0.0 (0.0-0.2) /100WBC Sodium 139 (135-145) mmol/L Potassium 4.0 (3.3-5.1) mmol/L Chloride 106 (96-108) mmol/L Carbon Dioxide 27 (22-29) mmol/L Anion Gap 10 L (12-20) BUN 12 (9-16) mg/dL Creatinine 0.88 (0.5-1.4) mg/dL Estim Creat Clear Calc 82.8 Estimated GFR > 60 Random Glucose 103 (60-115) mg/dL Calcium 9.7 (8.4-10.2) mg/dL Magnesium 1.9 (1.6-2.6) mg/dL Total Bilirubin 0.3 (0.0-1.0) mg/dL Direct Bilirubin 0.1 (0.0-0.5) mg/dL AST 24 (5-31) U/L ALT 20 (0-31) U/L Alkaline Phosphatase 98 (39-117) U/L Troponin I High Sens < 2.7 (<3.5-17.0) ng/L Total Protein 7.2 (6.5-8.0) g/dL Albumin 4.1 (3.5-5.0) g/dL Discharge Plan Discharge Clinical Impression: Dizziness, Fall Patient Disposition: Left W/O Completing Treatment Prescriptions: No Action bumetanide 2 mg Tablet 2 mg PO DAILY gabapentin 800 mg Tablet 800 mg PO TID nicotine 21 mg/24 hr Patch 24 Hour 1 patch TRANSDERMAL DAILY phenazopyridine 99.5 mg Tablet 99.5 mg PO TID Rx Instructions: Take for 5 days for urinary pain. acetaminophen 500 mg Tablet 500 mg PO TID Rx Instructions: Three times a day before meals. metaxalone 800 mg Tablet 800 mg PO TID polyethylene glycol 3350 17 gram Powder In Packet 17 g PO DAILY cholecalciferol (vitamin D3) [Vitamin D3] 50 mcg (2,000 unit) Capsule 50 mcg PO DAILY Rx Instructions: Take three capsules daily for a total dose of 6000 units. hydroxyzine HCl 25 mg tablet 25 mg PO Q6H PRN (Reason: Itching) ondansetron 4 mg Tablet,Disintegrating 8 mg PO Q8H PRN (Reason: Nausea) Rx Instructions: Take 2 tablets every 8 hours if needed for up to 7 days. albuterol sulfate [Ventolin HFA] 90 mcg/actuation HFA aerosol inhaler 2 puff inhalation Q6H PRN (Reason: Shortness Of Breath/Wheezing) lorazepam 1 mg tablet 1 mg PO TID Rx Instructions: Take before meals. Max daily amount 3 mg. cyclobenzaprine 10 mg Tablet 10 mg PO BID Qty: 0 0RF prazosin 1 mg Capsule 2 mg PO BEDTIME Qty: 0 0RF Protocol: Hold for SBP< HOLD for SBP < : 90 aspirin 81 mg Tablet,Chewable 81 mg PO DAILY Qty: 0 0RF metoprolol succinate 25 mg Tablet Extended Release 24 Hr 25 mg PO DAILY Qty: 0 0RF Protocol: Hold for SBP/HR < HOLD for SBP < : 90 HOLD for HR < : 60 fluoxetine 20 mg Capsule 20 mg PO DAILY Qty: 0 0RF quetiapine 400 mg Tablet 400 mg PO BEDTIME Qty: 0 0RF Eliquis 5 mg Tablet 5 mg PO BID Qty: 0 0RF Trelegy Ellipta 100-62.5-25 mcg Blister With Device 1 inh inhalation RDAILY Qty: 0 0RF metformin 500 mg Tablet 500 mg PO DAILY Qty: 0 0RF Rx Instructions: Take with evening meal. melatonin 3 mg Tablet 3 mg PO BEDTIME Qty: 0 0RF atorvastatin 80 mg tablet 40 mg PO BEDTIME trazodone 50 mg tablet 25 mg PO TIDWMEAL oxcarbazepine 300 mg tablet 600 mg PO BID potassium chloride 10 mEq tablet,ER particles/crystals 10 meq PO BID estradiol 0.01 % (0.1 mg/gram) Cream 1 g VAGINAL 2XW Rx Instructions: Apply as directed 2 times a week. ferrous sulfate 325 mg (65 mg iron) Tablet,Delayed Release (Dr/Ec) 325 mg PO DAILY methenamine hippurate tablet 1 g PO DAILY capsaicin 0.025 % Cream 1 appl topical QID PRN (Reason: low back pain) 30 Days Qty: 50 0RF Protocol: Apply to: Apply to: low back bupropion HCl 300 mg Tablet Extended Release 24 Hr 300 mg PO DAILY 30 Days Qty: 30 0RF lidocaine [Lidocaine Pain Relief] 4 % Adhesive Patch,Medicated 1 patch transdermal DAILY 30 Days Qty: 30 0RF Protocol: Apply to: Apply to: low back Discharge Date/Time: 10/16/24 21:31
--- NOTE | 2024-10-16 13:25 | ECG_ITS ---
Test Reason : CP Blood Pressure : */* mmHG Vent. Rate : 68 BPM Atrial Rate : 68 BPM P-R Int : 182 ms QRS Dur : 100 ms QT Int : 402 ms P-R-T Axes : 49 19 16 degrees QTcB Int : 427 ms Normal sinus rhythm Inferior infarct , age undetermined Cannot rule out Anterior infarct , age undetermined Abnormal ECG When compared with ECG of 26-Sep-2024 14:56, Minimal criteria for Anterior infarct are now Present Inferior infarct is now Present Nonspecific T wave abnormality, worse in Anterolateral leads Referred By: Shirin Santana Electronically Signed By: TYLER العراقي
[2024-10-16 13:45] LABS: MANUAL DIFF FLAG NO
[2024-10-16 13:50] LABS: Basophils Absolute Auto 0.1 X10*3/uL (0.0-0.2); Basophils Percent Auto 0.8 % (0-2); Eosinophils Absolute Auto 0.2 X10*3/uL (0.0-0.4); Eosinophils Percent Auto 2.3 % (0-4); Hematocrit 41.9 % (37.0-47.0); Hemoglobin 13.8 g/dl (12.0-16.0); Imm Gran Abs Auto 0.03 X10*3/uL (0.00-0.03); Imm Gran Pct Auto 0.4 % (0.0-0.4); Lymphocytes Absolute Auto 2.4 X10*3/uL (1.2-4.9); Lymphocytes Percent Auto 29.5 % (20-40); Mean Corpuscular HGB Conc 32.9 g/dl (31.0-35.0); Mean Corpuscular Hemoglobin 32.1 pg (27.0-33.0); Mean Corpuscular Volume 97.4 fL (80.0-98.0); Mean Platelet Volume 9.1 fL (9.4-12.3); Monocytes Absolute Auto 0.5 X10*3/uL (0.1-1.2); Monocytes Percent Auto 5.6 % (2-11); Neutrophils Absolute Auto 4.9 x10*3/uL (2.0-8.3); Neutrophils Percent Auto 61.4 % (45-73); Platelet Count 362 X10*3/uL (160-400); Red Cell Distribution Width 13.9 % (11.0-16.0)
[2024-10-16 14:02] LABS: Alanine Aminotransferase 20 U/L (0-31); Albumin Level 4.1 g/dL (3.5-5.0); Alkaline Phosphatase 98 U/L (39-117); Anion Gap 10 (12-20); Aspartate Amino Transferase 24 U/L (5-31); Bilirubin Direct 0.1 mg/dL (0.0-0.5); Bilirubin Total 0.3 mg/dL (0.0-1.0); Blood Urea Nitrogen 12 mg/dL (9-16); Calcium 9.7 mg/dL (8.4-10.2); Carbon Dioxide 27 mmol/L (22-29); Chloride 106 mmol/L (96-108); Creatinine Clr Calc Pharmacy 82.8; Estimated Glomerular Filt Rate > 60; Glucose Random 103 mg/dL (60-115); Magnesium 1.9 mg/dL (1.6-2.6); Sodium 139 mmol/L (135-145); Total Protein 7.2 g/dL (6.5-8.0)
[2024-10-16 14:09] LABS: Troponin-I High Sensitivity < 2.7 ng/L (<3.5-17.0)
--- NOTE | 2024-10-16 14:56 | MHC.CM.ED ---
Received telephone call from Juan C Ramos. Priyanka letting ER know patient is active with their program. Priyanka can be reached via telephone at [phone] with any questions or concerns.
--- OUTSIDE RECORDS SUMMARY | 2024-10-16 21:18 | XMS_ITS | Encounter Summary ---
Author Organization [facility] Address [address] [place] [address] Care Team Providers Care Engineering Tech Name Role Phone Dede Pimentel GANG DRILL OPERATOR Primary Care Provider [phone] Encounter Details Date Type Department Care Team (Late st Contact Info) Description 10/14/2024 Community Care Management [facility] [address] [place] [phone] Carole Aquino LPN Social History Tobacco Use Types Packs/Day Years [...] as of this encounter Progress Notes * Carole Aquino LPN - 10/14/2024 2:24 PM EDT Received call from Loren at partial inpt program inquiring reconciliation of PAR's current medications. Noting that PAR has had multiple medication changes over past few weeks with in patient stay and discharge. This nurse printed medication schedule from [facility], reconciled with [facility] then confirmed with PCP. After reviewing with PCP faxed as requested to [phone] documented in this encounter Plan of Treatment Upcoming Encounters Date Type Department Care Team (Late st Contact Info) Description 10/17/2024 7:30 AM EDT PACE Home Care / [facility] [address] [place] [phone] Shawna Lebron 10/17/2024 9:00 AM EDT Consult [facility] [place] [address] [place] [phone] 10/18/2024 7:30 AM EDT PACE Home Care / [facility] [address] [place] [phone] Jhoana Grijalva 10/19/2024 7:30 AM EDT PACE Home Care / [facility] [place] [facility] [address] [place] [phone] Jhoana Grijalva 10/20/2024 7:30 AM EDT PACE Home Care / [facility] [place] [facility] [address] [place] [phone] Cheryle Pryor 10/20/2024 9:00 AM EDT [facility] [facility] [place] [facility] [address] [place] [phone] 10/20/2024 9:00 AM EDT Consult [facility] [place] [address] [place] [phone] 10/21/2024 7:30 AM EDT PACE Home Care / [facility] [place] [facility] [address] [place] [phone] Cheryle Pryor 10/21/2024 9:00 AM EDT Consult [facility] [place] [address] [place] [address] 10/21/2024 10:30 AM EDT PACE Home Care / [facility] [place] [facility] [address] [place] [address] Cheryle Pryor 10/22/2024 7:30 AM EDT PACE Home Care / [facility] [place] [facility] [address] [place] [address] Shawna Lebron 10/22/2024 9:00 AM EDT P[facility] Att[facility] [facility] [place] [facility] [address] [place] [address] 10/22/2024 9:00 AM EDT Consult [facility] [place] [address] [place] [phone] 10/23/2024 7:30 AM EDT PACE Home Care / [facility] [place] [facility] [address] [place] [phone] Cheryle Pryor 10/23/2024 9:00 AM EDT Consult [facility] [place] [address] [place] [phone] 10/24/2024 7:30 AM EDT PACE Home Care / [facility] [place] [facility] [address] [place] [address] Shawna Lebron 10/24/2024 9:00 AM EDT Consult [facility] [place] [address] [place] [phone] 10/25/2024 7:30 AM EDT PACE Home Care / [facility] [place] [facility] [address] [place] [address] Cheryle Pryor 10/26/2024 7:15 AM EDT PACE Home Care / [facility] [place] [facility] [address] [place] [address] Cheryle Pryor 10/27/2024 7:30 AM EDT PACE Home Care / [facility] [address] [place] [phone] Cheryle Pryor 10/27/2024 9:00 AM EDT P[facility] [place] [facility] [address] [place] [phone] 10/28/2024 7:30 AM EDT PACE Home Care / [facility] [address] [place] [phone] Cheryle Pryor 10/28/2024 10:30 AM EDT PACE Home Care / [facility] [place] [facility] [address] [place] [phone] Cheryle Pryor 10/29/2024 7:30 AM EDT PACE Home Care / [facility] [place] [facility] [address] [place] [phone] Shawna Lebron 10/29/2024 9:00 AM EDT [facility] [place] [facility] [address] [place] [phone] 10/30/2024 7:30 AM EDT PACE Home Care / [facility] [address] [place] [phone] Cheryle Pryor 10/31/2024 7:30 AM EDT PACE Home Care / [facility] [place] [facility] [address] [place] [phone] Shawna Lebron 10/31/2024 10:30 AM EDT PACE Home Care / [facility] [place] [facility] [address] [place] [phone] Jhoana Grijalva 11/01/2024 7:30 AM EDT PACE Home Care / [facility] [place] [facility] [address] [place] [phone] Jhoana Grijalva 11/02/2024 7:30 AM EDT PACE Home Care / [facility] [place] [facility] [address] [place] [phone] Jhoana Grijalva 11/03/2024 7:30 AM EDT PACE Home Care / [facility] [facility] [place] [facility] [address] [place] [phone] Cheryle Pryor 11/03/2024 9:00 AM EDT [facility] [facility] [place] [facility] [address] [place] [phone] 11/04/2024 7:30 AM EDT PACE Home Care / [facility] [place] [facility] [address] [place] [phone] Cheryle Pryor 11/04/2024 10:30 AM EDT PACE Home Care / [facility] [place] [facility] [address] [place] [phone] Cheryle Pryor 11/05/2024 7:30 AM EDT PACE Home Care / [facility] [place] [facility] [address] [place] [phone] Shawna Lebron 11/05/2024 9:00 AM EDT [facility] [facility] [place] [facility] [address] [place] [phone] 11/06/2024 7:30 AM EDT PACE Home Care / [facility] [place] [facility] [address] [place] [phone] Cheryle Pryor 11/06/2024 10:00 AM EDT Clinical Support [facility] [address] [place] [address] 11/07/2024 7:30 AM EDT PACE Home Care / [facility] [address] [place] [phone] Shawna Lebron 11/07/2024 10:30 AM EDT PACE Home Care / [facility] [address] [place] [phone] Jhoana Grijalva 11/08/2024 7:30 AM EDT PACE Home Care / [facility] [address] [place] [phone] Cheryle Pryor 11/09/2024 7:30 AM EDT PACE Home Care / [facility] [address] [place] [phone] Cheryle Pryor 11/10/2024 7:30 AM EDT PACE Home Care / [facility] [address] [place] [phone] Cheryle Pryor 11/10/2024 9:00 AM EDT P[facility] [place] [facility] [address] [place] [phone] 11/10/2024 9:45 AM EDT Office Visit [facility] [address] [phone] Gemini Simmons MD [address] [facility] [address] [facility] [address] [place] [phone] 11/11/2024 7:30 AM EDT PACE Home Care / [facility] [address] [place] [address] Cheryle Pryor 11/11/2024 10:30 AM EDT PACE Home Care / [facility] [place] [facility] [address] [place] [phone] Cheryle Pryor 11/12/2024 7:30 AM EDT PACE Home Care / [facility] [place] [facility] [address] [place] [address] Shawna Lebron 11/12/2024 9:00 AM EDT P[facility] Att[facility] [place] [facility] [address] [place] [phone] 11/13/2024 7:30 AM EDT PACE Home Care / [facility] [place] [facility] [address] [place] [phone] Cheryle Pryor 11/14/2024 7:30 AM EDT PACE Home Care / [facility] [place] [facility] [address] [place] [phone] Shawna Lebron 11/14/2024 10:30 AM EDT PACE Home Care / [facility] [place] [facility] [address] [place] [phone] Jhoana Grijalva 11/15/2024 7:30 AM EDT PACE Home Care / [facility] [place] [facility] [address] [place] [phone] Jhoana Grijalva 11/16/2024 7:30 AM EDT PACE Home Care / [facility] [place] [facility] [address] [place] [phone] Jhoana Grijalva 11/17/2024 7:30 AM EDT PACE Home Care / [facility] [place] [facility] [address] [place] [phone] Cheryle Pryor 11/17/2024 9:00 AM EDT [facility] [facility] [place] [facility] [address] [place] [phone] 11/18/2024 7:30 AM EDT PACE Home Care / [facility] [place] [facility] [address] [place] [phone] Cheryle Pryor 11/18/2024 10:30 AM EDT PACE Home Care / [facility] [place] [facility] [address] [place] [phone] Cheryle Pryor 11/19/2024 7:30 AM EDT PACE Home Care / [facility] [place] [facility] [address] [place] [phone] Shawna Lebron 11/19/2024 9:00 AM EDT [facility] [place] [facility] [address] [place] [phone] 11/20/2024 7:30 AM EDT PACE Home Care / [facility] [place] [facility] [address] [place] [phone] Cheryle Pryor 11/21/2024 7:30 AM EDT PACE Home Care / [facility] [place] [facility] [address] [place] [phone] Shawna Lebron 11/21/2024 10:30 AM EDT PACE Home Care / [facility] [place] [facility] [address] [place] [phone] Jhoana Grijalva 11/22/2024 7:30 AM EDT PACE Home Care / [facility] [place] [facility] [address] [place] [phone] Cheryle Pryor 11/23/2024 7:30 AM EDT PACE Home Care / [facility] [place] [facility] [address] [place] [phone] Cheryle Pryor 11/24/2024 7:30 AM EDT PACE Home Care / [facility] [place] [facility] [address] [place] [phone] Cheryle Pryor 11/24/2024 9:00 AM EDT P[facility] [place] [facility] [address] [place] [phone] 11/25/2024 7:30 AM EDT PACE Home Care / [facility] [place] [facility] [address] [place] [phone] Cheryle Pryor 11/25/2024 10:30 AM EDT PACE Home Care / [facility] [place] [facility] [address] [place] [phone] Cheryle Pryor 11/26/2024 7:30 AM EDT PACE Home Care / [facility] [place] [facility] [address] [place] [phone] Shawna Lebron 11/26/2024 9:00 AM EDT [facility] [place] [facility] [address] [place] [phone] 11/27/2024 7:30 AM EDT PACE Home Care / [facility] [place] [facility] [address] [place] [phone] Cheryle Pryor 11/28/2024 7:30 AM EDT PACE Home Care / [facility] [place] [facility] [address] [place] [phone] Shawna Lebron 11/28/2024 10:30 AM EDT PACE Home Care / [facility] [place] [facility] [address] [place] [phone] Jhoana Grijalva 11/29/2024 7:30 AM EDT PACE Home Care / [facility] [place] [facility] [address] [place] [phone] Jhoana Grijalva 11/30/2024 7:30 AM EDT PACE Home Care / [facility] [place] [facility] [address] [place] [phone] Jhoana Grijalva 12/01/2024 7:30 AM EDT PACE Home Care / [facility] [place] [facility] [address] [place] [phone] Cheryle Pryor 12/01/2024 9:00 AM EDT [facility] [facility] [place] [facility] [address] [place] [phone] 12/02/2024 7:30 AM EDT PACE Home Care / [facility] [place] [facility] [address] [place] [phone] Cheryle Pryor 12/03/2024 7:30 AM EDT PACE Home Care / [facility] [place] [facility] [address] [place] [phone] Shawna Lebron 12/03/2024 9:00 AM EDT [facility] [facility] [place] [facility] [address] [place] [phone] 12/04/2024 7:30 AM EDT PACE Home Care / [facility] [place] [facility] [address] [place] [phone] Cheryle Pryor 12/05/2024 7:30 AM EDT PACE Home Care / [facility] [place] [facility] [address] [place] [address] Shawna Lebron 12/05/2024 10:30 AM EDT PACE Home Care / [facility] [place] [facility] [address] [place] [address] Jhoana Grijalva 12/06/2024 7:30 AM EDT PACE Home Care / [facility] [address] [place] [address] Cheryle Pryor 12/07/2024 7:30 AM EDT PACE Home Care / [facility] [place] [facility] [address] [place] [address] Cheryle Pryor 12/08/2024 9:00 AM EDT [facility] [place] [facility] [address] [place] [phone] 12/10/2024 9:00 AM EDT [facility] [place] [facility] [address] [place] [phone] 12/15/2024 9:00 AM EDT [facility] [place] [facility] [address] [place] [phone] 12/17/2024 9:00 AM EDT [facility] [place] [facility] [address] [place] [phone] 12/22/2024 9:00 AM EDT [facility] [place] [facility] [address] [place] [phone] 12/24/2024 9:00 AM EDT [facility] [place] [facility] [address] [place] [phone] 12/29/2024 9:00 AM EDT P[facility] [place] [facility] [address] [place] [address] 12/31/2024 9:00 AM EDT [facility] [place] [facility] [address] [place] [address] 01/05/2025 9:00 AM EDT [facility] [place] [facility] [address] [place] [address] 01/07/2025 9:00 AM EDT P[facility] [place] [facility] [address] [place] [address] 01/12/2025 9:00 AM EDT P[facility] [place] [facility] [address] [place] [phone] 01/14/2025 9:00 AM EDT P[facility] [place] [facility] [address] [place] [address] 01/19/2025 9:00 AM EDT P[facility] [place] [facility] [address] [place] [phone] 01/21/2025 9:00 AM EDT P[facility] [place] [facility] [address] [place] [phone] 01/26/2025 9:00 AM EDT P[facility] [place] [facility] [address] [place] [address] 01/28/2025 9:00 AM EDT P[facility] [place] [facility] [address] [place] [address] 02/02/2025 9:00 AM EDT [facility] [place] [facility] [address] [place] [phone] 02/04/2025 9:00 AM EDT P[facility] [place] [facility] [address] [place] [address] 02/09/2025 9:00 AM EDT P[facility] Att[facility] [place] [facility] [address] [place] [address] 02/11/2025 9:00 AM EDT [facility] [place] [facility] [address] [place] [address] 02/16/2025 9:00 AM EDT [facility] [place] [facility] [address] [place] [phone] 02/18/2025 9:00 AM EDT [facility] Att[facility] [place] [facility] [address] [place] [phone] 02/23/2025 9:00 AM EDT [facility] [place] [facility] [address] [place] [phone] 02/25/2025 9:00 AM EDT [facility] [place] [facility] [address] [place] [phone] 03/02/2025 9:00 AM EDT [facility] [place] [facility] [address] [place] [phone] 03/04/2025 9:00 AM EDT P[facility] Att[facility] [place] [facility] [address] [place] [phone] 03/09/2025 9:00 AM EDT P[facility] [place] [facility] [address] [place] [phone] 03/11/2025 9:00 AM EDT P[facility] Att[facility] [place] [facility] [address] [place] [phone] 03/16/2025 9:00 AM EDT P[facility] Att[facility] [place] [facility] [address] [place] [address] 03/18/2025 9:00 AM EDT P[facility] Attend[facility] [place] [facility] [address] [place] [address] 03/23/2025 9:00 AM EDT P[facility] Attend[facility] [place] [facility] [address] [place] [address] 03/25/2025 9:00 AM EDT P[facility] [place] [facility] [address] [place] [address] 03/30/2025 9:00 AM EDT P[facility] [place] [facility] [address] [place] [address] 04/01/2025 9:00 AM EDT P[facility] [place] [facility] [address] [place] [address] 04/06/2025 9:00 AM EDT P[facility] [place] [facility] [address] [place] [phone] 04/08/2025 9:00 AM EDT P[facility] [place] [facility] [address] [place] [address] 04/13/2025 9:00 AM EDT P[facility] [place] [facility] [address] [place] [address] 04/15/2025 9:00 AM EDT P[facility] Att[facility] [place] [facility] [address] [place] [address] 04/20/2025 9:00 AM EDT [facility] Att[facility] [place] [facility] [address] [place] [address] 04/22/2025 9:00 AM EDT [facility] Att[facility] [place] [facility] [address] [place] [address] 04/27/2025 9:00 AM EST [facility] [place] [facility] [address] [place] [address] 04/29/2025 9:00 AM EST [facility] Att[facility] [place] [facility] [address] [place] [address] 05/04/2025 9:00 AM EST [facility] [place] [facility] [address] [place] [address] 05/06/2025 9:00 AM EST [facility] [place] [facility] [address] [place] [phone] 05/11/2025 9:00 AM EST [facility] [place] [facility] [address] [place] [phone] 05/13/2025 9:00 AM EST [facility] [place] [facility] [address] [place] [phone] 05/18/2025 9:00 AM EST [facility] [place] [facility] [address] [place] [phone] 05/20/2025 9:00 AM EST [facility] [place] [facility] [address] [place] [phone] 05/25/2025 9:00 AM EST [facility] [place] [facility] [address] [place] [phone] 05/27/2025 9:00 AM EST [facility] [place] [facility] [address] [place] [phone] 06/01/2025 9:00 AM EST [facility] [place] [facility] [address] [place] [address] 06/03/2025 9:00 AM EST [facility] [place] [facility] [address] [place] [address] 06/08/2025 9:00 AM EST [facility] [place] [facility] [address] [place] [address] 06/10/2025 9:00 AM EST [facility] Att[facility] [place] [facility] [address] [place] [address] 06/15/2025 9:00 AM EST [facility] Att[facility] [place] [facility] [address] [place] [phone] 06/17/2025 9:00 AM EST PACE Attendance/[facility] [place] [facility] [address] [place] [phone] 06/22/2025 9:00 AM EST PACE Att[facility] [place] [facility] [address] [place] [phone] 06/24/2025 9:00 AM EST P[facility] [place] [facility] [address] [place] [phone] 06/29/2025 9:00 AM EST P[facility] [place] [facility] [address] [place] [phone] 07/01/2025 9:00 AM EST [facility] [place] [facility] [address] [place] [phone] 07/06/2025 9:00 AM EST [facility] [place] [facility] [address] [place] [phone] 2025 9:00 AM EST [facility] [place] [facility] [address] [place] [address] 07/13/2025 9:00 AM EST [facility] [place] [facility] [address] [place] [phone] 07/15/2025 9:00 AM EST [facility] [place] [facility] [address] [place] [phone] 07/20/2025 9:00 AM EST P[facility] [place] [facility] [address] [place] [phone] 07/22/2025 9:00 AM EST PACE Att[facility] [facility] [place] [facility] [address] [place] [phone] 07/27/2025 9:00 AM EST P[facility] [place] [facility] [place] [facility] [address] [place] [phone] 07/29/2025 9:00 AM EST P[facility] [place] [facility] [place] [facility] [address] [place] [phone] 08/03/2025 9:00 AM EST PACE Attendance/Day [place] [email or web address] [place] [facility] [address] [place] [phone] documented as of this encounter Visit Diagnoses Not on filedocumented in this encounter Care Teams Engineering Tech Relationship Specialty Start Date End Date Dede Pimentel NP [address] [place] [phone] PCP - General Family Medicine 05/02/24 documented as of this encounter
--- OUTSIDE RECORDS SUMMARY | 2024-10-16 21:18 | XMS_ITS | Encounter Summary ---
Author Organization [facility] Address [address] [place] [address] Care Team Providers Care Adobe Layer Name Role Phone Dede Pimentel INTER[employer] MARKETING INTERN Primary Care Provider [phone] Encounter Details Date Type Department Care Team (Late Contact Info) Description 10/06/2024 Telephone [facility] [place] [facility] [address] [place] [address] Dede Pimentel NP 200 [facility] 1 [place], [place] [id number] Social History Tobacco Use Types Packs/Day Years [...] Department Care Team (Late Contact Info) Description 10/17/2024 7:30 AM EDT PACE Home Care / [facility] [address] [place] [address] Shawna Lebron 10/17/2024 9:00 AM EDT Consult [facility] [address] [place] [address] 10/18/2024 7:30 AM EDT PACE Home Care / [facility] [address] [place] [phone] Jhoana Grijalva 10/19/2024 7:30 AM EDT PACE Home Care / [facility] [place] [facility] [address] [place] [phone] Jhoana Grijalva 10/20/2024 7:30 AM EDT PACE Home Care / [facility] [address] [place] [phone] Cheryle Pryor 10/20/2024 9:00 AM EDT [facility] [place] [facility] [address] [place] [address] 10/20/2024 9:00 AM EDT Consult [facility] [place] [address] [place] [phone] 10/21/2024 7:30 AM EDT PACE Home Care / [facility] [address] [place] [phone] Cheryle Pryor 10/21/2024 9:00 AM EDT Consult [facility] [place] [address] [place] [phone] 10/21/2024 10:30 AM EDT PACE Home Care / [facility] [address] [place] [address] Cheryle Pryor 10/22/2024 7:30 AM EDT PACE Home Care / [facility] [address] [place] [address] Shawna Lebron 10/22/2024 9:00 AM EDT P[facility] [facility] [place] [facility] [address] [place] [address] 10/22/2024 9:00 AM EDT Consult [facility] [place] [address] [place] [phone] 10/23/2024 7:30 AM EDT PACE Home Care / [facility] [place] [facility] [address] [place] [phone] Cheryle Pryor 10/23/2024 9:00 AM EDT Consult [facility] [address] [place] [phone] 10/24/2024 7:30 AM EDT PACE Home Care / [facility] [address] [place] [phone] Shawna Lebron 10/24/2024 9:00 AM EDT Consult [facility] [place] [address] [place] [phone] 10/25/2024 7:30 AM EDT PACE Home Care / [facility] [place] [facility] [address] [place] [phone] Cheryle Pryor 10/26/2024 7:15 AM EDT PACE Home Care / [facility] [address] [place] [phone] Cheryle Pryor 10/27/2024 7:30 AM EDT PACE Home Care / [facility] [place] [facility] [address] [place] [phone] Cheryle Pryor 10/27/2024 9:00 AM EDT [facility] [facility] [place] [facility] [address] [place] [address] 10/28/2024 7:30 AM EDT PACE Home Care / [facility] [address] [place] [address] Cheryle Pryor 10/28/2024 10:30 AM EDT PACE Home Care / [facility] [address] [place] [address] Cheryle Pryor 10/29/2024 7:30 AM EDT PACE Home Care / [facility] [address] [place] [address] Shawna Lebron 10/29/2024 9:00 AM EDT [facility] [place] [facility] [address] [place] [address] 10/30/2024 7:30 AM EDT PACE Home Care / [facility] [address] [place] [phone] Cheryle Pryor 10/31/2024 7:30 AM EDT PACE Home Care / [facility] [address] [place] [phone] Shawna Lebron 10/31/2024 10:30 AM EDT PACE Home Care / [facility] [address] [place] [address] Jhoana Grijalva 11/01/2024 7:30 AM EDT PACE Home Care / [facility] [address] [place] [address] Jhoana Grijalva 11/02/2024 7:30 AM EDT PACE Home Care / [facility] [address] [place] [phone] Jhoana Grijalva 11/03/2024 7:30 AM EDT PACE Home Care / [facility] [address] [place] [phone] Cheryle Pryor 11/03/2024 9:00 AM EDT [facility] [facility] [place] [facility] [address] [place] [phone] 11/04/2024 7:30 AM EDT PACE Home Care / [facility] [address] [place] [phone] Cheryle Pryor 11/04/2024 10:30 AM EDT PACE Home Care / [facility] [address] [place] [phone] Cheryle Pryor 11/05/2024 7:30 AM EDT PACE Home Care / [facility] [address] [place] [phone] Shawna Lebron 11/05/2024 9:00 AM EDT [facility] [place] [facility] [address] [place] [phone] 11/06/2024 7:30 AM EDT PACE Home Care / [facility] [address] [place] [phone] Cheryle Pryor 11/06/2024 10:00 AM EDT Clinical Support [facility] [address] [place] [phone] 11/07/2024 7:30 AM EDT PACE Home Care / [facility] [address] [place] [phone] Shawna Lebron 11/07/2024 10:30 AM EDT PACE Home Care / [facility] [address] [place] [phone] Jhoana Grijalva 11/08/2024 7:30 AM EDT PACE Home Care / [facility] [address] [place] [phone] Cheryle Pryor 11/09/2024 7:30 AM EDT PACE Home Care / [facility] [place] [facility] [address] [place] [phone] Cheryle Pryor 11/10/2024 7:30 AM EDT PACE Home Care / [facility] [place] [facility] [address] [place] [phone] Cheryle Pryor 11/10/2024 9:00 AM EDT [facility] [facility] [place] [facility] [address] [place] [phone] 11/10/2024 9:45 AM EDT Office Visit [facility] [address] [facility] [address] [address] [place] [phone] Gemini Simmons MD [address] [facility] [address] [address] 11/11/2024 7:30 AM EDT PACE Home Care / [facility] [place] [facility] [address] [place] [phone] Cheryle Pryor 11/11/2024 10:30 AM EDT PACE Home Care / [facility] [address] [place] [phone] Cheryle Pryor 11/12/2024 7:30 AM EDT PACE Home Care / [facility] [address] [place] [address] Shawna Lebron 11/12/2024 9:00 AM EDT P[facility] Att[facility] [place] [facility] [address] [place] [address] 11/13/2024 7:30 AM EDT PACE Home Care / [facility] [address] [place] [phone] Cheryle Pryor 11/14/2024 7:30 AM EDT PACE Home Care / [facility] [address] [place] [phone] Shawna Lebron 11/14/2024 10:30 AM EDT PACE Home Care / [facility] [address] [place] [phone] Jhoana Grijalva 11/15/2024 7:30 AM EDT PACE Home Care / [facility] [address] [place] [phone] Jhoana Grijalva 11/16/2024 7:30 AM EDT PACE Home Care / [facility] [address] [place] [phone] Jhoana Grijalva 11/17/2024 7:30 AM EDT PACE Home Care / [facility] [address] [place] [phone] Cheryle Pryor 11/17/2024 9:00 AM EDT P[facility] [facility] [place] [facility] [address] [place] [phone] 11/18/2024 7:30 AM EDT PACE Home Care / [facility] [address] [place] [phone] Cheryle Pryor 11/18/2024 10:30 AM EDT PACE Home Care / [facility] [address] [place] [phone] Cheryle Pryor 11/19/2024 7:30 AM EDT PACE Home Care / [facility] [address] [place] [phone] Shawna Lebron 11/19/2024 9:00 AM EDT P[place] Att[facility] [facility] [place] [facility] [address] [place] [phone] 11/20/2024 7:30 AM EDT PACE Home Care / [facility] [address] [place] [phone] Cheryle Pryor 11/21/2024 7:30 AM EDT PACE Home Care / [facility] [address] [place] [phone] Shawna Lebron 11/21/2024 10:30 AM EDT PACE Home Care / [facility] [address] [place] [phone] Jhoana Grijalva 11/22/2024 7:30 AM EDT PACE Home Care / [facility] [facility] [place] [facility] [address] [place] [phone] Cheryle Pryor 11/23/2024 7:30 AM EDT PACE Home Care / [facility] [address] [place] [phone] Cheryle Pryor 11/24/2024 7:30 AM EDT PACE Home Care / [facility] [facility] Visit [facility] [address] [place] [phone] Cheryle Pryor 11/24/2024 9:00 AM EDT [facility] [facility] [place] [facility] [address] [place] [address] 11/25/2024 7:30 AM EDT PACE Home Care / [facility] [address] [place] [phone] Cheryle Pryor 11/25/2024 10:30 AM EDT PACE Home Care / [facility] [address] [place] [phone] Cheryle Pryor 11/26/2024 7:30 AM EDT PACE Home Care / [facility] [address] [place] [phone] Shawna Lebron 11/26/2024 9:00 AM EDT P[facility] Attendance[facility] [facility] [place] [facility] [address] [place] [phone] 11/27/2024 7:30 AM EDT PACE Home Care / [facility] [address] [place] [phone] Cheryle Pryor 11/28/2024 7:30 AM EDT PACE Home Care / [facility] [address] [place] [phone] Shawna Lebron 11/28/2024 10:30 AM EDT PACE Home Care / [facility] [address] [place] [phone] Jhoana Grijalva 11/29/2024 7:30 AM EDT PACE Home Care / [facility] [address] [place] [phone] Jhoana Grijalva 11/30/2024 7:30 AM EDT PACE Home Care / [facility] [address] [place] [phone] Jhoana Grijalva 12/01/2024 7:30 AM EDT PACE Home Care / [facility] [address] [place] [phone] Cheryle Pryor 12/01/2024 9:00 AM EDT [facility] [place] [facility] [address] [place] [phone] 12/02/2024 7:30 AM EDT PACE Home Care / [facility] [address] [place] [phone] Cheryle Pryor 12/03/2024 7:30 AM EDT PACE Home Care / [facility] [address] [place] [phone] Shawna Lebron 12/03/2024 9:00 AM EDT [facility] [facility] [place] [facility] [address] [place] [phone] 12/04/2024 7:30 AM EDT PACE Home Care / [facility] [address] [place] [phone] Cheryle Pryor 12/05/2024 7:30 AM EDT PACE Home Care / [facility] [address] [place] [phone] Shawna Lebron 12/05/2024 10:30 AM EDT PACE Home Care / [facility] [address] [place] [phone] Jhoana Grijalva 12/06/2024 7:30 AM EDT PACE Home Care / [facility] [address] [place] [address] Cheryle Pryor 12/07/2024 7:30 AM EDT PACE Home Care / [facility] [address] [place] [address] Cheryle Pryor 12/08/2024 9:00 AM EDT [facility] [facility] [place] [facility] [address] [place] [address] 12/10/2024 9:00 AM EDT [facility] [facility] [facility] [place] [facility] [address] [place] [address] 12/15/2024 9:00 AM EDT P[place] Att[facility] [facility] [place] [facility] [address] [place] [phone] 12/17/2024 9:00 AM EDT P[place] [facility] [facility] [place] [facility] [address] [place] [phone] 12/22/2024 9:00 AM EDT [facility] [facility] [facility] [place] [facility] [address] [place] [phone] 12/24/2024 9:00 AM EDT P[facility] Att[facility] [facility] [place] [facility] [address] [place] [address] 12/29/2024 9:00 AM EDT P[facility] Att[facility] [place] [facility] [address] [place] [phone] 12/31/2024 9:00 AM EDT P[facility] Att[facility] [place] [facility] [address] [place] [address] 01/05/2025 9:00 AM EDT [facility] Att[facility] [place] [facility] [address] [place] [address] 01/07/2025 9:00 AM EDT [facility] [place] [facility] [address] [place] [address] 01/12/2025 9:00 AM EDT [facility] [place] [facility] [address] [place] [address] 01/14/2025 9:00 AM EDT [facility] [place] [facility] [address] [place] [phone] 01/19/2025 9:00 AM EDT [facility] [place] [facility] [address] [place] [phone] 01/21/2025 9:00 AM EDT [facility] [place] [facility] [address] [place] [phone] 01/26/2025 9:00 AM EDT [facility] [place] [facility] [address] [place] [phone] 01/28/2025 9:00 AM EDT [facility] [place] [facility] [address] [place] [phone] 02/02/2025 9:00 AM EDT [facility] [place] [facility] [address] [place] [phone] 02/04/2025 9:00 AM EDT [facility] [place] [facility] [address] [place] [phone] 02/09/2025 9:00 AM EDT [facility] [place] [facility] [address] [place] [phone] 02/11/2025 9:00 AM EDT P[facility] Attend[facility] [facility] [place] [facility] [address] [place] [phone] 02/16/2025 9:00 AM EDT [facility] [place] [facility] [address] [place] [phone] 02/18/2025 9:00 AM EDT [facility] [place] [facility] [address] [place] [phone] 02/23/2025 9:00 AM EDT [facility] [place] [facility] [address] [place] [address] 02/25/2025 9:00 AM EDT [facility] [place] [facility] [address] [place] [phone] 03/02/2025 9:00 AM EDT [facility] [place] [facility] [address] [place] [phone] 03/04/2025 9:00 AM EDT [facility] [place] [facility] [address] [place] [phone] 03/09/2025 9:00 AM EDT [facility] [place] [facility] [address] [place] [phone] 03/11/2025 9:00 AM EDT [facility] [place] [facility] [address] [place] [phone] 03/16/2025 9:00 AM EDT [facility] [place] [facility] [address] [place] [phone] 03/18/2025 9:00 AM EDT [facility] [place] [facility] [address] [place] [phone] 03/23/2025 9:00 AM EDT [facility] [place] [facility] [address] [place] [phone] 03/25/2025 9:00 AM EDT [facility] [place] [facility] [address] [place] [address] 03/30/2025 9:00 AM EDT [facility] [place] [facility] [address] [place] [phone] 04/01/2025 9:00 AM EDT [facility] [place] [facility] [address] [place] [phone] 04/06/2025 9:00 AM EDT [facility] [place] [facility] [address] [place] [phone] 04/08/2025 9:00 AM EDT [facility] [place] [facility] [address] [place] [phone] 04/13/2025 9:00 AM EDT [facility] [place] [facility] [address] [place] [phone] 04/15/2025 9:00 AM EDT [facility] [place] [facility] [address] [place] [phone] 04/20/2025 9:00 AM EDT [facility] [place] [facility] [address] [place] [phone] 04/22/2025 9:00 AM EDT [facility] [place] [facility] [address] [place] [phone] 04/27/2025 9:00 AM EST [facility] [place] [facility] [address] [place] [phone] 04/29/2025 9:00 AM EST [facility] [place] [facility] [address] [place] [phone] 05/04/2025 9:00 AM EST [facility] [place] [facility] [address] [place] [address] 05/06/2025 9:00 AM EST [facility] [place] [facility] [address] [place] [address] 05/11/2025 9:00 AM EST [facility] [place] [facility] [address] [place] [address] 05/13/2025 9:00 AM EST P[facility] [place] [facility] [address] [place] [phone] 05/18/2025 9:00 AM EST [facility] [place] [facility] [address] [place] [phone] 05/20/2025 9:00 AM EST PACE Att[facility] [place] [facility] [address] [place] [phone] 05/25/2025 9:00 AM EST P[facility] [place] [facility] [address] [place] [phone] 05/27/2025 9:00 AM EST P[facility] [place] [facility] [address] [place] [phone] 06/01/2025 9:00 AM EST P[facility] [place] [facility] [address] [place] [phone] 06/03/2025 9:00 AM EST PACE [facility] [place] [facility] [address] [place] [phone] 06/08/2025 9:00 AM EST P[facility] [place] [facility] [address] [place] [phone] 06/10/2025 9:00 AM EST P[facility] [place] [facility] [address] [place] [address] 06/15/2025 9:00 AM EST [facility] [place] [facility] [address] [place] [address] 06/17/2025 9:00 AM EST P[facility] [place] [facility] [address] [place] [address] 06/22/2025 9:00 AM EST P[facility] [place] [facility] [address] [place] [address] 06/24/2025 9:00 AM EST P[facility] [place] [facility] [address] [place] [phone] 06/29/2025 9:00 AM EST P[facility] [place] [facility] [address] [place] [phone] 07/01/2025 9:00 AM EST P[facility] [place] [facility] [address] [place] [phone] 07/06/2025 9:00 AM EST P[facility] [facility] [place] [facility] [address] [place] [phone] 2025 9:00 AM EST [facility] [place] [facility] [address] [place] [address] 07/13/2025 9:00 AM EST P[facility] [place] [facility] [address] [place] [address] 07/15/2025 9:00 AM EST PACE Att[facility] [place] [facility] [address] [place] [address] 07/20/2025 9:00 AM EST PACE Attend[facility] [place] [facility] [address] [place] [address] 07/22/2025 9:00 AM EST PACE Attendance/Day Center [facility] [place] [facility] [address] [place] [phone] 07/27/2025 9:00 AM EST PACE [facility] [address] [place] [phone] 07/29/2025 9:00 AM EST PACE [facility] [place] [facility] [address] [address] 08/03/2025 9:00 AM EST PACE Att[facility]ance[facility] [place] [employer] [address] [address] documented as of this encounter Visit Diagnoses Not on filedocumented in this encounter Care Teams Adobe Layer Relationship Specialty Start Date End Date Dede Pimentel NP [address] [place] [id number] PCP - General Family Medicine 05/02/24 documented as of this encounter
--- OUTSIDE RECORDS SUMMARY | 2024-10-16 21:18 | XMS_ITS | Encounter Summary ---
Author Organization [facility] Address [address] [place] [address] Care Team Providers Care [employer] Hand Name Role Phone Dede Pimentel [employer] Primary Care Provider [phone] Encounter Details Date Type Department Care Team (Late st Contact Info) Description 10/13/2024 7:30 AM EDT PACE Home Care / P[facility] Home Visit [facility] [address] [place] [phone] Cheryle Pryor Social History Tobacco Use Types Packs/Day Years [...] [place] [facility] [address] [place] [phone] Shawna Lebron 10/17/2024 9:00 AM EDT Consult [facility] [place] [address] [place] [address] 10/18/2024 7:30 AM EDT PACE Home Care / [facility] [address] [place] [phone] Jhoana Grijalva 10/19/2024 7:30 AM EDT PACE Home Care / [facility] Home Visit [facility] [place] [facility] [address] [place] [phone] Jhoana Grijalva 10/20/2024 7:30 AM EDT PACE Home Care / [facility] Home Visit [facility] [place] [facility] [address] [place] [phone] Cheryle Pryor 10/20/2024 9:00 AM EDT P[facility] Attend[facility] [address] [place] [phone] 10/20/2024 9:00 AM EDT Consult [facility] [place] [address] [place] [phone] 10/21/2024 7:30 AM EDT PACE Home Care / [facility] Home Visit [facility] [address] [place] [phone] Cheryle Pryor 10/21/2024 9:00 AM EDT Consult [facility] [place] [address] [place] [phone] 10/21/2024 10:30 AM EDT PACE Home Care / [facility] [address] [place] [phone] Cheryle Pryor 10/22/2024 7:30 AM EDT PACE Home Care / [facility] Visit [facility] [place] [facility] [address] [place] [phone] Shawna Lebron 10/22/2024 9:00 AM EDT PACE Attendance[facility] [place] [facility] [address] [place] [address] 10/22/2024 9:00 AM EDT Consult [facility] [place] [address] [place] [phone] 10/23/2024 7:30 AM EDT PACE Home Care / PACE Home Visit [facility] [place] [facility] [address] [place] [phone] Cheryle Pryor 10/23/2024 9:00 AM EDT Consult [facility] [place] [address] [place] [phone] 10/24/2024 7:30 AM EDT PACE Home Care / PACE Home Visit [facility] [place] [facility] [address] [place] [phone] Shawna Lebron 10/24/2024 9:00 AM EDT Consult [facility] [address] [place] [phone] 10/25/2024 7:30 AM EDT PACE Home Care / PACE Home Visit [facility] [place] [facility] [address] [place] [phone] Cheryle Pryor 10/26/2024 7:15 AM EDT PACE Home Care / PACE Home Visit [facility] [place] [facility] [address] [place] [phone] Cheryle Pryor 10/27/2024 7:30 AM EDT PACE Home Care / [facility] [address] [place] [phone] Cheryle Pryor 10/27/2024 9:00 AM EDT PACE Attendance[facility] [place] [facility] [address] [place] [phone] 10/28/2024 7:30 AM EDT PACE Home Care / [facility] Visit [facility] [address] [place] [phone] Cheryle Pryor 10/28/2024 10:30 AM EDT PACE Home Care / [facility] [place] [facility] [address] [place] [phone] Cheryle Pryor 10/29/2024 7:30 AM EDT PACE Home Care / [facility] Home Visit [facility] [place] [facility] [address] [place] [phone] Shawna Lebron 10/29/2024 9:00 AM EDT PACE Attendance[facility] [place] [facility] [address] [place] [phone] 10/30/2024 7:30 AM EDT PACE Home Care / [facility] [address] [place] [phone] Cheryle Pryor 10/31/2024 7:30 AM EDT PACE Home Care / [facility] [address] [place] [phone] Shawna Lebron 10/31/2024 10:30 AM EDT PACE Home Care / [facility] Home Visit [facility] [place] [facility] [address] [place] [phone] Jhoana Grijalva 11/01/2024 7:30 AM EDT PACE Home Care / [facility] Visit [facility] [address] [place] [phone] Jhoana Grijalva 11/02/2024 7:30 AM EDT PACE Home Care / [facility] Visit [facility] [address] [place] [phone] Jhoana Grijalva 11/03/2024 7:30 AM EDT PACE Home Care / PACE Home Visit [facility] [address] [place] [phone] Cheryle Pryor 11/03/2024 9:00 AM EDT P[facility] Attendance[facility] [place] [facility] [address] [place] [address] 11/04/2024 7:30 AM EDT PACE Home Care / PACE Home Visit [facility] [address] [place] [phone] Cheryle Pryor 11/04/2024 10:30 AM EDT PACE Home Care / PACE Home Visit [facility] [address] [place] [phone] Cheryle Pryor 11/05/2024 7:30 AM EDT PACE Home Care / PACE Home Visit [facility] [place] [facility] [address] [place] [phone] Shawna Lebron 11/05/2024 9:00 AM EDT PACE Attendance[facility] [place] [facility] [address] [place] [phone] 11/06/2024 7:30 AM EDT PACE Home Care / PACE Home Visit [facility] [address] [place] [phone] Cheryle Pryor 11/06/2024 10:00 AM EDT Clinical Support [facility] [place] [address] [place] [address] 11/07/2024 7:30 AM EDT PACE Home Care / PACE Home Visit [facility] [address] [place] [phone] Shawna Lebron 11/07/2024 10:30 AM EDT PACE Home Care / PACE Home Visit [facility] [address] [place] [address] Jhoana Grijalva 11/08/2024 7:30 AM EDT PACE Home Care / PACE Home Visit [facility] [address] [place] [address] Cheryle Pryor 11/09/2024 7:30 AM EDT PACE Home Care / PACE Home Visit [facility] [address] [place] [phone] Cheryle Pryor 11/10/2024 7:30 AM EDT PACE Home Care / PACE Home Visit [facility] [address] [place] [phone] Cheryle Pryor 11/10/2024 9:00 AM EDT PACE Attendance[facility] [place] [facility] [address] [place] [phone] 11/10/2024 9:45 AM EDT Office Visit [facility] [address] [place] [phone] Gemini Simmons MD [address] [address] 11/11/2024 7:30 AM EDT PACE Home Care / PACE Home Visit [facility] [address] [place] [phone] Cheryle Pryor 11/11/2024 10:30 AM EDT PACE Home Care / PACE Home Visit [facility] [place] [facility] [address] [place] [phone] Cheryle Pryor 11/12/2024 7:30 AM EDT PACE Home Care / PACE Home Visit [facility] [address] [place] [phone] Shawna Lebron 11/12/2024 9:00 AM EDT PACE Attendance[facility] [place] [facility] [address] [place] [phone] 11/13/2024 7:30 AM EDT PACE Home Care / PACE Home Visit [facility] [address] [place] [phone] Cheryle Pryor 11/14/2024 7:30 AM EDT PACE Home Care / PACE Home Visit [facility] [address] [place] [phone] Shawna Lebron 11/14/2024 10:30 AM EDT PACE Home Care / PACE Home Visit [facility] [address] [place] [phone] Jhoana Grijalva 11/15/2024 7:30 AM EDT PACE Home Care / PACE Home Visit [facility] [address] [place] [phone] Jhoana Grijalva 11/16/2024 7:30 AM EDT PACE Home Care / PACE Home Visit [facility] [address] [place] [phone] Jhoana Grijalva 11/17/2024 7:30 AM EDT PACE Home Care / [facility] [address] [place] [phone] Cheryle Pryor 11/17/2024 9:00 AM EDT PACE Attendance[facility] [place] [facility] [address] [place] [phone] 11/18/2024 7:30 AM EDT PACE Home Care / [facility] [address] [place] [phone] Cheryle Pryor 11/18/2024 10:30 AM EDT PACE Home Care / [facility] [place] [facility] [address] [place] [phone] Cheryle Pryor 11/19/2024 7:30 AM EDT PACE Home Care / [facility] Visit [facility] [place] [facility] [address] [place] [phone] Shawna Lebron 11/19/2024 9:00 AM EDT PACE Attendance[facility] [place] [facility] [address] [place] [phone] 11/20/2024 7:30 AM EDT PACE Home Care / [facility] Visit [facility] [place] [facility] [address] [place] [phone] Cheryle Pryor 11/21/2024 7:30 AM EDT PACE Home Care / [facility] Visit [facility] [address] [place] [phone] Shawna Lebron 11/21/2024 10:30 AM EDT PACE Home Care / [facility] Visit [facility] [place] [facility] [address] [place] [phone] Jhoana Grijalva 11/22/2024 7:30 AM EDT PACE Home Care / [facility] Visit [facility] [place] [facility] [address] [place] [phone] Cheryle Pryor 11/23/2024 7:30 AM EDT PACE Home Care / [facility] Visit [facility] [address] [place] [phone] Cheryle Pryor 11/24/2024 7:30 AM EDT PACE Home Care / [facility] Visit [facility] [place] [facility] [address] [place] [phone] Cheryle Pryor 11/24/2024 9:00 AM EDT PACE Attendance[facility] [place] [facility] [address] [place] [address] 11/25/2024 7:30 AM EDT PACE Home Care / PACE Home Visit [facility] [address] [place] [phone] Cheryle Pryor 11/25/2024 10:30 AM EDT PACE Home Care / PACE Home Visit [facility] [address] [place] [phone] Cheryle Pryor 11/26/2024 7:30 AM EDT PACE Home Care / PACE Home Visit [facility] [address] [place] [phone] Shawna Lebron 11/26/2024 9:00 AM EDT PACE Attendance/[facility] [place] [facility] [address] [place] [phone] 11/27/2024 7:30 AM EDT PACE Home Care / PACE Home Visit [facility] [address] [place] [phone] Cheryle Pryor 11/28/2024 7:30 AM EDT PACE Home Care / PACE Home Visit [facility] [address] [place] [phone] Shawna Lebron 11/28/2024 10:30 AM EDT PACE Home Care / PACE Home Visit [facility] [address] [place] [phone] Jhoana Grijalva 11/29/2024 7:30 AM EDT PACE Home Care / PACE Home Visit [facility] [address] [place] [phone] Jhoana Grijalva 11/30/2024 7:30 AM EDT PACE Home Care / [facility] Visit [facility] [address] [place] [address] Jhoana Grijalva 12/01/2024 7:30 AM EDT PACE Home Care / [facility] Visit [facility] [address] [place] [address] Cheryle Pryor 12/01/2024 9:00 AM EDT [facility] Attend[facility] [place] [facility] [address] [place] [address] 12/02/2024 7:30 AM EDT PACE Home Care / [facility] Visit [facility] [address] [place] [phone] Cheryle Pryor 12/03/2024 7:30 AM EDT PACE Home Care / [facility] Home Visit [facility] [address] [place] [phone] Shawna Lebron 12/03/2024 9:00 AM EDT PACE Attendance[facility] [place] [facility] [address] [place] [address] 12/04/2024 7:30 AM EDT PACE Home Care / [facility] Visit [facility] [address] [place] [phone] Cheryle Pryor 12/05/2024 7:30 AM EDT PACE Home Care / [facility] Home Visit [facility] [address] [place] [phone] Shawna Lebron 12/05/2024 10:30 AM EDT PACE Home Care / [facility] [address] [place] [phone] Jhoana Grijalva 12/06/2024 7:30 AM EDT PACE Home Care / [facility] [address] [place] [address] Cheryle Pryor 12/07/2024 7:30 AM EDT PACE Home Care / PACE Home Visit [facility] [address] [place] [address] Cheryle Pryor 12/08/2024 9:00 AM EDT [facility] Att[facility] [place] [facility] [address] [place] [address] 12/10/2024 9:00 AM EDT P[facility] Att[facility] [place] [facility] [address] [place] [phone] 12/15/2024 9:00 AM EDT P[facility] [address] [place] [phone] 12/17/2024 9:00 AM EDT [facility] [place] [facility] [address] [place] [phone] 12/22/2024 9:00 AM EDT P[facility] [place] [facility] [address] [place] [address] 12/24/2024 9:00 AM EDT P[facility] Att[facility] [place] [facility] [address] [place] [phone] 12/29/2024 9:00 AM EDT P[facility] Att[facility] [place] [facility] [address] [place] [phone] 12/31/2024 9:00 AM EDT P[facility] Att[facility] [place] [facility] [address] [place] [phone] 01/05/2025 9:00 AM EDT P[facility] Attend[facility] [place] [facility] [address] [place] [phone] 01/07/2025 9:00 AM EDT PACE Attendance[facility] [place] [facility] [address] [place] [address] 01/12/2025 9:00 AM EDT P[facility] Att[facility] [place] [facility] [address] [place] [address] 01/14/2025 9:00 AM EDT PACE Attendance[facility] [place] [facility] [address] [place] [address] 01/19/2025 9:00 AM EDT PACE Attendance[facility] [place] [facility] [address] [place] [phone] 01/21/2025 9:00 AM EDT PACE Attendance[facility] [place] [facility] [address] [place] [address] 01/26/2025 9:00 AM EDT PACE Attendance[facility] [place] [facility] [address] [place] [address] 01/28/2025 9:00 AM EDT P[facility] [place] [facility] [address] [place] [address] 02/02/2025 9:00 AM EDT P[facility] Att[facility] [place] [facility] [address] [place] [phone] 02/04/2025 9:00 AM EDT P[facility] Att[facility] [place] [facility] [address] [place] [address] 02/09/2025 9:00 AM EDT P[facility] Attend[facility] [place] [facility] [address] [place] [address] 02/11/2025 9:00 AM EDT P[facility] Att[facility] [place] [facility] [address] [place] [phone] 02/16/2025 9:00 AM EDT P[facility] Attendance[facility] [place] [facility] [address] [place] [address] 02/18/2025 9:00 AM EDT P[facility] Attend[facility] [place] [facility] [address] [place] [address] 02/23/2025 9:00 AM EDT P[facility] Attend[facility] [place] [facility] [address] [place] [address] 02/25/2025 9:00 AM EDT P[facility] Attend[facility] [place] [facility] [address] [place] [address] 03/02/2025 9:00 AM EDT P[facility] Attendance[facility] [place] [facility] [address] [place] [phone] 03/04/2025 9:00 AM EDT P[facility] Attend[facility] [place] [facility] [address] [place] [address] 03/09/2025 9:00 AM EDT P[facility] Attend[facility] [place] [facility] [address] [place] [address] 03/11/2025 9:00 AM EDT P[facility] Attend[facility] [place] [facility] [address] [place] [address] 03/16/2025 9:00 AM EDT [facility] [place] [facility] [address] [place] [address] 03/18/2025 9:00 AM EDT [facility] [place] [facility] [address] [place] [address] 03/23/2025 9:00 AM EDT [facility] Att[facility] [place] [facility] [address] [place] [address] 03/25/2025 9:00 AM EDT [facility] Att[facility] [place] [facility] [address] [place] [address] 03/30/2025 9:00 AM EDT P[facility] Attendance[facility] [place] [facility] [address] [place] [address] 04/01/2025 9:00 AM EDT P[facility] Attend[facility] [place] [facility] [address] [place] [address] 04/06/2025 9:00 AM EDT P[facility] Attend[facility] [place] [facility] [address] [place] [address] 04/08/2025 9:00 AM EDT P[facility] Attend[facility] [place] [facility] [address] [place] [address] 04/13/2025 9:00 AM EDT P[facility] Attend[facility] [place] [facility] [address] [place] [address] 04/15/2025 9:00 AM EDT P[facility] Attend[facility] [place] [facility] [address] [place] [address] 04/20/2025 9:00 AM EDT P[facility] Attend[facility] [place] [facility] [address] [place] [address] 04/22/2025 9:00 AM EDT [facility] [place] [facility] [address] [place] [address] 04/27/2025 9:00 AM EST [facility] [place] [facility] [address] [place] [address] 04/29/2025 9:00 AM EST [facility] [place] [facility] [address] [place] [address] 05/04/2025 9:00 AM EST [facility] [place] [facility] [address] [place] [address] 05/06/2025 9:00 AM EST [facility] [place] [facility] [address] [place] [address] 05/11/2025 9:00 AM EST [facility] [place] [facility] [address] [place] [address] 05/13/2025 9:00 AM EST [facility] [place] [facility] [address] [place] [address] 05/18/2025 9:00 AM EST [facility] [place] [facility] [address] [place] [address] 05/20/2025 9:00 AM EST [facility] [place] [facility] [address] [place] [address] 05/25/2025 9:00 AM EST [facility] [place] [facility] [address] [place] [address] 05/27/2025 9:00 AM EST [facility] [place] [facility] [address] [place] [phone] 06/01/2025 9:00 AM EST [facility] [place] [facility] [address] [place] [address] 06/03/2025 9:00 AM EST [facility] [place] [facility] [address] [place] [address] 06/08/2025 9:00 AM EST [facility] Att[facility] [place] [facility] [address] [place] [address] 06/10/2025 9:00 AM EST [facility] Att[facility] [place] [facility] [address] [place] [address] 06/15/2025 9:00 AM EST P[facility] Attend[facility] [place] [facility] [address] [place] [address] 06/17/2025 9:00 AM EST P[facility] Attend[facility] [place] [facility] [address] [place] [address] 06/22/2025 9:00 AM EST P[facility] Att[facility] [place] [facility] [address] [place] [address] 06/24/2025 9:00 AM EST P[facility] Att[facility] [place] [facility] [address] [place] [address] 06/29/2025 9:00 AM EST [facility] [place] [facility] [address] [place] [address] 07/01/2025 9:00 AM EST [facility] [place] [facility] [address] [place] [address] 07/06/2025 9:00 AM EST [facility] [place] [facility] [address] [place] [address] 2025 9:00 AM EST P[facility] Attend[facility] [place] [facility] [address] [place] [phone] 07/13/2025 9:00 AM EST P[facility] Att[facility] [place] [facility] [address] [place] [address] 07/15/2025 9:00 AM EST P[facility] Att[facility] [facility] [place] [facility] [address] [place] [address] 07/20/2025 9:00 AM EST PACE Attend[facility] [facility] [place] [facility] [address] [place] [address] 07/22/2025 9:00 AM EST PACE Attendance/Day Center [facility] [place] [facility] [address] [place] [address] 07/27/2025 9:00 AM EST [facility] [place] [facility] [address] [place] [address] 07/29/2025 9:00 AM EST [facility] [place] [facility] [address] [address] 08/03/2025 9:00 AM EST P[facility] Day [address] [address] documented as of this encounter Visit Diagnoses Not on filedocumented in this encounter Care Teams [employer] Hand Relationship Specialty Start Date End Date Dede Pimentel NP [address] [place] [id number] PCP - General Family Medicine 05/02/24 documented as of this encounter
--- OUTSIDE RECORDS SUMMARY | 2024-10-16 21:18 | XMS_ITS | Encounter Summary ---
Author Organization [employer] [facility] Address [address] [place] [address] Care Team Providers Care Deputy Court Clerk Name Role Phone Unavailable Primary Care Provider [...]
--- OUTSIDE RECORDS SUMMARY | 2024-10-16 21:18 | XMS_ITS | Encounter Summary ---
Author Organization [employer] [facility] Address [address] [place] [address] Care Team Providers Care Toll Testboard Worker Name Role Phone Unavailable Primary Care Provider [...]
--- OUTSIDE RECORDS SUMMARY | 2024-10-16 21:18 | XMS_ITS | Encounter Summary ---
Author Organization [facility] Address [address] [place] [address] Care Team Providers Care Retail Zone Specialist Name Role Phone Dede Pimentel WAREHOUSE ASSISTANT Primary Care Provider [phone] Encounter Details Date Type Department Care Team (Late st Contact Info) Description 10/14/2024 7:30 AM EDT PACE Home Care / PACE Home Visit [facility] [address] [place] [phone] Cheryle Pryor Social History Tobacco Use Types [...] [place] [facility] [address] [place] [phone] Shawna Lebron 10/17/2024 9:00 AM EDT Consult [facility] [place] [address] [place] [address] 10/18/2024 7:30 AM EDT PACE Home Care / [facility] Home Visit [facility] [place] [facility] [address] [place] [phone] Jhoana Grijalva 10/19/2024 7:30 AM EDT PACE Home Care / [facility] Home Visit [facility] [place] [facility] [address] [place] [phone] Jhoana Grijalva 10/20/2024 7:30 AM EDT PACE Home Care / [facility] Home Visit [facility] [place] [facility] [address] [place] [phone] Cheryle Pryor 10/20/2024 9:00 AM EDT [facility] Att[facility] [facility] [place] [facility] [address] [place] [phone] 10/20/2024 9:00 AM EDT Consult [facility] [place] [address] [place] [phone] 10/21/2024 7:30 AM EDT PACE Home Care / [facility] Visit [facility] [place] [facility] [address] [place] [phone] Cheryle Pryor 10/21/2024 9:00 AM EDT Consult [facility] [place] [address] [place] [phone] 10/21/2024 10:30 AM EDT PACE Home Care / [facility] [place] [facility] [address] [place] [phone] Cheryle Pryor 10/22/2024 7:30 AM EDT PACE Home Care / [facility] Home Visit [facility] [place] [facility] [address] [place] [phone] Shawna Lebron 10/22/2024 9:00 AM EDT PACE Attendance[facility] [place] [facility] [address] [place] [address] 10/22/2024 9:00 AM EDT Consult [facility] [place] [address] [place] [phone] 10/23/2024 7:30 AM EDT PACE Home Care / PACE Home Visit [facility] [place] [facility] [address] [place] [phone] Cheryle Pryor 10/23/2024 9:00 AM EDT Consult [facility] [place] [address] [place] [phone] 10/24/2024 7:30 AM EDT PACE Home Care / PACE Home Visit [facility] [place] [facility] [address] [place] [phone] Shawna Lebron 10/24/2024 9:00 AM EDT Consult [facility] [address] [place] [phone] 10/25/2024 7:30 AM EDT PACE Home Care / PACE Home Visit [facility] [place] [facility] [address] [place] [phone] Cheryle Pryor 10/26/2024 7:15 AM EDT PACE Home Care / PACE Home Visit [facility] [place] [facility] [address] [place] [phone] Cheryle Pryor 10/27/2024 7:30 AM EDT PACE Home Care / [facility] [place] [facility] [address] [place] [phone] Cheryle Pryor 10/27/2024 9:00 AM EDT PACE Attendance[facility] [place] [facility] [address] [place] [phone] 10/28/2024 7:30 AM EDT PACE Home Care / [facility] Home Visit [facility] [place] [facility] [address] [place] [phone] Cheryle Pryor 10/28/2024 10:30 AM EDT PACE Home Care / [facility] [place] [facility] [address] [place] [phone] Cheryle Pryor 10/29/2024 7:30 AM EDT PACE Home Care / [facility] Home Visit [facility] [place] [facility] [address] [place] [phone] Shawna Lebron 10/29/2024 9:00 AM EDT PACE Attendance[facility] [place] [facility] [address] [place] [phone] 10/30/2024 7:30 AM EDT PACE Home Care / [facility] [place] [facility] [address] [place] [phone] Cheryle Pryor 10/31/2024 7:30 AM EDT PACE Home Care / [facility] [place] [facility] [address] [place] [phone] Shawna Lebron 10/31/2024 10:30 AM EDT PACE Home Care / [facility] Home Visit [facility] [place] [facility] [address] [place] [phone] Jhoana Grijalva 11/01/2024 7:30 AM EDT PACE Home Care / [facility] Visit [facility] [place] [facility] [address] [place] [phone] Jhoana Grijalva 11/02/2024 7:30 AM EDT PACE Home Care / [facility] Visit [facility] [place] [facility] [address] [place] [phone] Jhoana Grijalva 11/03/2024 7:30 AM EDT PACE Home Care / PACE Home Visit [facility] [place] [facility] [address] [place] [phone] Cheryle Pryor 11/03/2024 9:00 AM EDT P[facility] Attendance[facility] [facility] [place] [facility] [address] [place] [address] 11/04/2024 7:30 AM EDT PACE Home Care / PACE Home Visit [facility] [place] [facility] [address] [place] [phone] Cheryle Pryor 11/04/2024 10:30 AM EDT PACE Home Care / PACE Home Visit [facility] [place] [facility] [address] [place] [phone] Cheryle Pryor 11/05/2024 7:30 AM EDT PACE Home Care / PACE Home Visit [facility] [place] [facility] [address] [place] [phone] Shawna Lebron 11/05/2024 9:00 AM EDT P[facility] Attend[facility] [place] [facility] [address] [place] [phone] 11/06/2024 7:30 AM EDT PACE Home Care / PACE Home Visit [facility] [place] [facility] [address] [place] [phone] Cheryle Pryor 11/06/2024 10:00 AM EDT Clinical Support [facility] [place] [address] [place] [address] 11/07/2024 7:30 AM EDT PACE Home Care / PACE Home Visit [facility] [place] [facility] [address] [place] [phone] Shawna Lebron 11/07/2024 10:30 AM EDT PACE Home Care / PACE Home Visit [facility] [place] [facility] [address] [place] [address] Jhoana Grijalva 11/08/2024 7:30 AM EDT PACE Home Care / PACE Home Visit [facility] [place] [facility] [address] [place] [address] Cheryle Pryor 11/09/2024 7:30 AM EDT PACE Home Care / PACE Home Visit [facility] [place] [facility] [address] [place] [phone] Cheryle Pryor 11/10/2024 7:30 AM EDT PACE Home Care / PACE Home Visit [facility] [place] [facility] [address] [place] [phone] Cheryle Pryor 11/10/2024 9:00 AM EDT PACE Attendance[facility] [place] [facility] [address] [place] [phone] 11/10/2024 9:45 AM EDT Office Visit [facility] [address] [place] [phone] Gemini Simmons MD [address] [address] 11/11/2024 7:30 AM EDT PACE Home Care / PACE Home Visit [facility] [place] [facility] [address] [place] [phone] Cheryle Pryor 11/11/2024 10:30 AM EDT PACE Home Care / PACE Home Visit [facility] [place] [facility] [address] [place] [phone] Cheryle Pryor 11/12/2024 7:30 AM EDT PACE Home Care / PACE Home Visit [facility] [place] [facility] [address] [place] [phone] Shawna Lebron 11/12/2024 9:00 AM EDT PACE Attendance[facility] [place] [facility] [address] [place] [phone] 11/13/2024 7:30 AM EDT PACE Home Care / PACE Home Visit [facility] [place] [facility] [address] [place] [phone] Cheryle Pryor 11/14/2024 7:30 AM EDT PACE Home Care / PACE Home Visit [facility] [place] [facility] [address] [place] [phone] Shawna Lebron 11/14/2024 10:30 AM EDT PACE Home Care / PACE Home Visit [facility] [place] [facility] [address] [place] [phone] Jhoana Grijalva 11/15/2024 7:30 AM EDT PACE Home Care / PACE Home Visit [facility] [place] [facility] [address] [place] [phone] Jhoana Grijalva 11/16/2024 7:30 AM EDT PACE Home Care / PACE Home Visit [facility] [place] [facility] [address] [place] [phone] Jhoana Grijalav 11/17/2024 7:30 AM EDT PACE Home Care / [facility] [place] [facility] [address] [place] [phone] Cheryle Pryor 11/17/2024 9:00 AM EDT PACE Attendance[facility] [facility] [place] [facility] [address] [place] [phone] 11/18/2024 7:30 AM EDT PACE Home Care / [facility] [place] [facility] [address] [place] [phone] Cheryle Pryor 11/18/2024 10:30 AM EDT PACE Home Care / [facility] Visit [facility] [place] [facility] [address] [place] [phone] Cheryle Pryor 11/19/2024 7:30 AM EDT PACE Home Care / [facility] Visit [facility] [place] [facility] [address] [place] [phone] Shawna Lebron 11/19/2024 9:00 AM EDT PACE Attendance[facility] [facility] [place] [address] [place] [phone] 11/20/2024 7:30 AM EDT PACE Home Care / [facility] Home Visit [facility] [place] [facility] [address] [place] [phone] Cheryle Pryor 11/21/2024 7:30 AM EDT PACE Home Care / [facility] Visit [facility] [place] [facility] [address] [place] [phone] Shawna Lebron 11/21/2024 10:30 AM EDT PACE Home Care / [facility] Visit [facility] [place] [facility] [address] [place] [phone] Jhoana Grijalva 11/22/2024 7:30 AM EDT PACE Home Care / [facility] Visit [facility] [place] [facility] [address] [place] [phone] Cheryle Pryor 11/23/2024 7:30 AM EDT PACE Home Care / [facility] Visit [facility] [place] [facility] [address] [place] [phone] Cheryle Pryor 11/24/2024 7:30 AM EDT PACE Home Care / [facility] Visit [facility] [place] [facility] [address] [place] [phone] Cheryle Pryor 11/24/2024 9:00 AM EDT PACE Attendance[facility] [facility] [place] [address] [place] [address] 11/25/2024 7:30 AM EDT PACE Home Care / PACE Home Visit [facility] [place] [facility] [address] [place] [phone] Cheryle Pryor 11/25/2024 10:30 AM EDT PACE Home Care / PACE Home Visit [facility] [place] [facility] [address] [place] [phone] Cheryle Pryor 11/26/2024 7:30 AM EDT PACE Home Care / PACE Home Visit [facility] [place] [facility] [address] [place] [phone] Shawna Lebron 11/26/2024 9:00 AM EDT PACE Attendance/[place] [facility] [place] [facility] [address] [place] [phone] 11/27/2024 7:30 AM EDT PACE Home Care / PACE Home Visit [facility] [place] [facility] [address] [place] [phone] Cheryle Pryor 11/28/2024 7:30 AM EDT PACE Home Care / PACE Home Visit [facility] [place] [facility] [address] [place] [phone] Shawna Lebron 11/28/2024 10:30 AM EDT PACE Home Care / PACE Home Visit [facility] [place] [facility] [address] [place] [phone] Jhoana Grijalva 11/29/2024 7:30 AM EDT PACE Home Care / PACE Home Visit [facility] [place] [facility] [address] [place] [phone] Jhoana Grijalva 11/30/2024 7:30 AM EDT PACE Home Care / [facility] [place] [facility] [address] [place] [address] Jhoana Grijalva 12/01/2024 7:30 AM EDT PACE Home Care / [facility] Visit [facility] [place] [facility] [address] [place] [address] Cheryle Pryor 12/01/2024 9:00 AM EDT P[facility] Attend[facility] [place] [facility] [address] [place] [address] 12/02/2024 7:30 AM EDT PACE Home Care / [facility] Visit [facility] [place] [facility] [address] [place] [phone] Cheryle Pryor 12/03/2024 7:30 AM EDT PACE Home Care / [facility] Home Visit [facility] [place] [facility] [address] [place] [phone] Shawna Lebron 12/03/2024 9:00 AM EDT PACE Attendance[facility] [place] [facility] [place] [facility] [address] [place] [address] 12/04/2024 7:30 AM EDT PACE Home Care / [facility] Visit [facility] [place] [facility] [address] [place] [phone] Cheryle Pryor 12/05/2024 7:30 AM EDT PACE Home Care / [facility] Home Visit [facility] [place] [facility] [address] [place] [phone] Shawna Lebron 12/05/2024 10:30 AM EDT PACE Home Care / [facility] Visit [facility] [place] [facility] [address] [place] [phone] Jhoana Grijalva 12/06/2024 7:30 AM EDT PACE Home Care / [facility] [place] [facility] [address] [place] [address] Cheryle Pryor 12/07/2024 7:30 AM EDT PACE Home Care / PACE Home Visit [facility] [address] [place] [address] Cheryle Pryor 12/08/2024 9:00 AM EDT [facility] Att[facility] [place] [facility] [address] [place] [address] 12/10/2024 9:00 AM EDT P[facility] [place] [facility] [address] [place] [phone] 12/15/2024 9:00 AM EDT P[facility] Attend[facility] [place] [facility] [address] [place] [address] 12/17/2024 9:00 AM EDT P[facility] Att[facility] [place] [facility] [address] [place] [address] 12/22/2024 9:00 AM EDT P[facility] Att[facility] [place] [facility] [address] [place] [phone] 12/24/2024 9:00 AM EDT P[facility] Attend[facility] [place] [facility] [address] [place] [address] 12/29/2024 9:00 AM EDT P[facility] Att[facility] [place] [facility] [address] [place] [address] 12/31/2024 9:00 AM EDT P[facility] Attend[facility] [place] [facility] [address] [place] [address] 01/05/2025 9:00 AM EDT P[facility] Att[facility] [place] [facility] [address] [place] [address] 01/07/2025 9:00 AM EDT PACE Attendance[facility] [place] [facility] [address] [place] [address] 01/12/2025 9:00 AM EDT P[facility] Attend[facility] [place] [facility] [address] [place] [address] 01/14/2025 9:00 AM EDT PACE Attendance[facility] [place] [facility] [address] [place] [address] 01/19/2025 9:00 AM EDT PACE Attendance[facility] [place] [facility] [address] [place] [address] 01/21/2025 9:00 AM EDT PACE Attendance[facility] [place] [facility] [address] [place] [address] 01/26/2025 9:00 AM EDT PACE Attendance[facility] [place] [facility] [address] [place] [address] 01/28/2025 9:00 AM EDT P[facility] Att[facility] [place] [facility] [address] [place] [address] 02/02/2025 9:00 AM EDT P[facility] [place] [facility] [address] [place] [address] 02/04/2025 9:00 AM EDT P[facility] Att[facility] [place] [facility] [address] [place] [address] 02/09/2025 9:00 AM EDT P[facility] Attend[facility] [place] [facility] [address] [place] [address] 02/11/2025 9:00 AM EDT P[facility] Att[facility] [place] [facility] [address] [place] [address] 02/16/2025 9:00 AM EDT PACE Attendance[facility] [place] [facility] [address] [place] [address] 02/18/2025 9:00 AM EDT PACE Attendance[facility] [place] [facility] [address] [place] [address] 02/23/2025 9:00 AM EDT PACE Attendance[facility] [place] [facility] [address] [place] [address] 02/25/2025 9:00 AM EDT P[facility] Attendance[facility] [place] [facility] [address] [place] [address] 03/02/2025 9:00 AM EDT PACE Attendance[facility] [place] [facility] [address] [place] [address] 03/04/2025 9:00 AM EDT PACE Attendance[facility] [place] [facility] [address] [place] [address] 03/09/2025 9:00 AM EDT PACE Attendance[facility] [place] [facility] [address] [place] [address] 03/11/2025 9:00 AM EDT PACE Attendance[facility] [place] [facility] [address] [place] [address] 03/16/2025 9:00 AM EDT P[facility] Att[facility] [place] [facility] [address] [place] [address] 03/18/2025 9:00 AM EDT P[facility] Attend[facility] [place] [facility] [address] [place] [address] 03/23/2025 9:00 AM EDT P[facility] Attend[facility] [place] [facility] [address] [place] [address] 03/25/2025 9:00 AM EDT P[facility] Attend[facility] [place] [facility] [address] [place] [address] 03/30/2025 9:00 AM EDT PACE Attendance[facility] [place] [facility] [address] [place] [address] 04/01/2025 9:00 AM EDT PACE Attendance[facility] [place] [facility] [address] [place] [address] 04/06/2025 9:00 AM EDT PACE Attendance[facility] [place] [facility] [address] [place] [address] 04/08/2025 9:00 AM EDT PACE Attend[facility] [place] [facility] [address] [place] [address] 04/13/2025 9:00 AM EDT PACE Attendance[facility] [place] [facility] [address] [place] [address] 04/15/2025 9:00 AM EDT PACE Attendance[facility] [place] [facility] [address] [place] [address] 04/20/2025 9:00 AM EDT PACE Attendance[facility] [place] [facility] [address] [place] [address] 04/22/2025 9:00 AM EDT P[facility] Att[facility] [place] [facility] [address] [place] [address] 04/27/2025 9:00 AM EST PACE Attend[facility] [place] [facility] [address] [place] [address] 04/29/2025 9:00 AM EST PACE Att[facility] [place] [facility] [address] [place] [address] 05/04/2025 9:00 AM EST P[facility] [place] [facility] [address] [place] [address] 05/06/2025 9:00 AM EST P[facility] [place] [facility] [address] [place] [address] 05/11/2025 9:00 AM EST P[facility] [place] [facility] [address] [place] [address] 05/13/2025 9:00 AM EST P[facility] [place] [facility] [address] [place] [address] 05/18/2025 9:00 AM EST P[facility] [place] [facility] [address] [place] [address] 05/20/2025 9:00 AM EST P[facility] Attend[facility] [place] [facility] [address] [place] [address] 05/25/2025 9:00 AM EST P[facility] [place] [facility] [address] [place] [address] 05/27/2025 9:00 AM EST P[facility] Att[facility] [place] [facility] [address] [place] [address] 06/01/2025 9:00 AM EST P[facility] Attend[facility] [place] [facility] [address] [place] [address] 06/03/2025 9:00 AM EST PACE Attend[facility] [place] [facility] [address] [place] [address] 06/08/2025 9:00 AM EST PACE Attend[facility] [place] [facility] [address] [place] [address] 06/10/2025 9:00 AM EST PACE Attend[facility] [place] [facility] [address] [place] [address] 06/15/2025 9:00 AM EST PACE Attendance[facility] [place] [facility] [address] [place] [address] 06/17/2025 9:00 AM EST PACE Attend[facility] [place] [facility] [address] [place] [address] 06/22/2025 9:00 AM EST PACE Attend[facility] [place] [facility] [address] [place] [address] 06/24/2025 9:00 AM EST PACE Attend[facility] [place] [facility] [address] [place] [address] 06/29/2025 9:00 AM EST PACE Att[facility] [place] [facility] [address] [place] [address] 07/01/2025 9:00 AM EST PACE Att[facility] [place] [facility] [address] [place] [address] 07/06/2025 9:00 AM EST PACE Att[facility] [place] [facility] [address] [place] [address] 2025 9:00 AM EST PACE Attend[facility] [facility] [place] [facility] [address] [place] [address] 07/13/2025 9:00 AM EST PACE Attend[facility] [facility] [place] [facility] [address] [place] [address] 07/15/2025 9:00 AM EST PACE Attend[facility] [facility] [place] [facility] [address] [place] [address] 07/20/2025 9:00 AM EST PACE Attend[place] [facility] [place] [facility] [address] [place] [address] 07/22/2025 9:00 AM EST PACE Attendance/Day Center [facility] [employer] [facility] [place] [facility] [address] [place] [address] 07/27/2025 9:00 AM EST P[facility] [place] [facility] [address] [place] [address] 07/29/2025 9:00 AM EST PACE [facility]end[facility] [place] [facility] [address] [address] 08/03/2025 9:00 AM EST PACE [facility] Day [address] [address] documented as of this encounter Visit Diagnoses Not on filedocumented in this encounter Care Teams Retail Zone Specialist Relationship Specialty Start Date End Date Dede Pimentel NP [address] [place] [id number] PCP - General Family Medicine 05/02/24 documented as of this encounter
--- OUTSIDE RECORDS SUMMARY | 2024-10-16 21:18 | XMS_ITS | Encounter Summary ---
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 DRIER OPERATOR Primary Care Provider [phone] Encounter Details Date Type Department Care Team (Late st Contact Info) Description 10/11/2024 7:00 AM EDT PACE Home Care / P[facility] Home Visit [facility] [address] [place] [phone] Cheryle Pryor Social History Tobacco Use Types [...] [place] [facility] [address] [place] [phone] Shawna Lebron 10/17/2024 9:00 AM EDT Consult [facility] [address] [place] [address] 10/18/2024 7:30 AM EDT PACE Home Care / [facility] Home Visit [facility] [address] [place] [phone] Jhoana Grijalva 10/19/2024 7:30 AM EDT PACE Home Care / [facility] Home Visit [facility] [address] [place] [phone] Jhoana Grijalva 10/20/2024 7:30 AM EDT PACE Home Care / [facility] Home Visit [facility] [address] [place] [phone] Cheryle Pryor 10/20/2024 9:00 AM EDT P[facility] Attend[facility] [place] [facility] [address] [place] [phone] 10/20/2024 9:00 AM EDT Consult [facility] [place] [address] [place] [phone] 10/21/2024 7:30 AM EDT PACE Home Care / [facility] Home Visit [facility] [address] [place] [phone] Cheryle Pryor 10/21/2024 9:00 AM EDT Consult [facility] [place] [address] [place] [phone] 10/21/2024 10:30 AM EDT PACE Home Care / [facility] Visit [facility] [place] [facility] [address] [place] [phone] Cheryle Pryor 10/22/2024 7:30 AM EDT PACE Home Care / [facility] Visit [facility] [address] [place] [phone] Shawna Lebron 10/22/2024 9:00 AM EDT PACE Attendance[facility] [place] [facility] [address] [place] [address] 10/22/2024 9:00 AM EDT Consult [facility] [place] [address] [place] [phone] 10/23/2024 7:30 AM EDT PACE Home Care / PACE Home Visit [facility] [address] [place] [phone] Cheryle Pryor 10/23/2024 9:00 AM EDT Consult [facility] [place] [address] [place] [phone] 10/24/2024 7:30 AM EDT PACE Home Care / PACE Home Visit [facility] [address] [place] [phone] Shawna Lebron 10/24/2024 9:00 AM EDT Consult [facility] [address] [place] [phone] 10/25/2024 7:30 AM EDT PACE Home Care / PACE Home Visit [facility] [address] [place] [phone] Cheryle Pryor 10/26/2024 7:15 AM EDT PACE Home Care / PACE Home Visit [facility] [address] [place] [phone] Cheryle Pryor 10/27/2024 7:30 AM EDT PACE Home Care / [facility] [address] [place] [phone] Cheryle Pryor 10/27/2024 9:00 AM EDT PACE Attendance[facility] [place] [facility] [address] [place] [phone] 10/28/2024 7:30 AM EDT PACE Home Care / [facility] Visit [facility] [place] [facility] [address] [place] [phone] Cheryle Pryor 10/28/2024 10:30 AM EDT PACE Home Care / [facility] [address] [place] [phone] Cheryle Pryor 10/29/2024 7:30 AM EDT PACE Home Care / [facility] Home Visit [facility] [place] [facility] [address] [place] [phone] Shawna Lebron 10/29/2024 9:00 AM EDT PACE Attendance[facility] [place] [facility] [address] [place] [phone] 10/30/2024 7:30 AM EDT PACE Home Care / [facility] [address] [place] [phone] Cheryle Pryor 10/31/2024 7:30 AM EDT PACE Home Care / [facility] Visit [facility] [place] [facility] [address] [place] [phone] Shawna Lebron 10/31/2024 10:30 AM EDT PACE Home Care / [facility] Home Visit [facility] [place] [facility] [address] [place] [phone] Jhoana Grijalva 11/01/2024 7:30 AM EDT PACE Home Care / [facility] Visit [facility] [place] [facility] [address] [place] [phone] Jhoana Grijalva 11/02/2024 7:30 AM EDT PACE Home Care / [facility] Visit [facility] [place] [facility] [address] [place] [phone] Jhoana Grijalva 11/03/2024 7:30 AM EDT PACE Home Care / PACE Home Visit [facility] [place] [facility] [address] [place] [phone] Cheryle Pryor 11/03/2024 9:00 AM EDT P[facility] Attendance[facility] [place] [facility] [address] [place] [address] 11/04/2024 7:30 AM EDT PACE Home Care / PACE Home Visit [facility] [address] [place] [phone] Cheryle Pryor 11/04/2024 10:30 AM EDT PACE Home Care / PACE Home Visit [facility] [place] [facility] [address] [place] [phone] Cheryle Pryor 11/05/2024 7:30 AM EDT PACE Home Care / PACE Home Visit [facility] [place] [facility] [address] [place] [phone] Shawna Lebron 11/05/2024 9:00 AM EDT P[facility] Attend[facility] [place] [facility] [address] [place] [phone] 11/06/2024 7:30 AM EDT PACE Home Care / PACE Home Visit [facility] [address] [place] [phone] Cheryle Pryor 11/06/2024 10:00 AM EDT Clinical Support [facility] [place] [address] [place] [address] 11/07/2024 7:30 AM EDT PACE Home Care / PACE Home Visit [facility] [address] [place] [phone] Shawna Lebron 11/07/2024 10:30 AM EDT PACE Home Care / PACE Home Visit [facility] [address] [place] [address] Jhoana Grijalva 11/08/2024 7:30 AM EDT PACE Home Care / PACE Home Visit [facility] [address] [place] [address] Cheryle Pryor 11/09/2024 7:30 AM EDT PACE Home Care / PACE Home Visit [facility] [address] [place] [phone] Cheryle Pryor 11/10/2024 7:30 AM EDT PACE Home Care / PACE Home Visit [facility] [address] [place] [phone] Cheryle Pryor 11/10/2024 9:00 AM EDT P[facility] Attend[facility] [place] [facility] [address] [place] [phone] 11/10/2024 9:45 AM EDT Office Visit [facility] [address] [place] [phone] Gemini Simmons MD [address] [address] 11/11/2024 7:30 AM EDT PACE Home Care / PACE Home Visit [facility] [address] [place] [phone] Cheryle Pryor 11/11/2024 10:30 AM EDT PACE Home Care / PACE Home Visit [facility] [address] [place] [phone] Cheryle Pryor 11/12/2024 7:30 AM EDT PACE Home Care / PACE Home Visit [facility] [address] [place] [phone] Shawna Lebron 11/12/2024 9:00 AM EDT PACE Attendance[facility] [place] [facility] [address] [place] [phone] 11/13/2024 7:30 AM EDT PACE Home Care / PACE Home Visit [facility] [address] [place] [phone] Cheryle Pryor 11/14/2024 7:30 AM EDT PACE Home Care / PACE Home Visit [facility] [address] [place] [phone] Shawna Lebron 11/14/2024 10:30 AM EDT PACE Home Care / PACE Home Visit [facility] [address] [place] [phone] Jhoana Grijalva 11/15/2024 7:30 AM EDT PACE Home Care / PACE Home Visit [facility] [address] [place] [phone] Jhoana Grijalva 11/16/2024 7:30 AM EDT PACE Home Care / PACE Home Visit [facility] [place] [facility] [address] [place] [phone] Jhoana Grijalva 11/17/2024 7:30 AM EDT PACE Home Care / [facility] [address] [place] [phone] Cheryle Pryor 11/17/2024 9:00 AM EDT PACE Attendance[facility] [place] [facility] [address] [place] [phone] 11/18/2024 7:30 AM EDT PACE Home Care / [facility] [address] [place] [phone] Cheryle Pryor 11/18/2024 10:30 AM EDT PACE Home Care / [facility] Visit [facility] [place] [facility] [address] [place] [phone] Cheryle Pryor 11/19/2024 7:30 AM EDT PACE Home Care / [facility] Home Visit [facility] [place] [facility] [address] [place] [phone] Shawna Lebron 11/19/2024 9:00 AM EDT P[facility] Attendance[facility] [place] [facility] [address] [place] [phone] 11/20/2024 7:30 AM EDT PACE Home Care / P[facility] Home Visit [facility] [place] [facility] [address] [place] [phone] Cheryle Pryor 11/21/2024 7:30 AM EDT PACE Home Care / [facility] Home Visit [facility] [place] [facility] [address] [place] [phone] Shawna Lebron 11/21/2024 10:30 AM EDT PACE Home Care / [facility] Home Visit [facility] [place] [facility] [address] [place] [phone] Jhoana Grijalva 11/22/2024 7:30 AM EDT PACE Home Care / [facility] Home Visit [facility] [place] [facility] [address] [place] [phone] Cheryle Pryor 11/23/2024 7:30 AM EDT PACE Home Care / [facility] Home Visit [facility] [place] [facility] [address] [place] [phone] Cheryle Pryor 11/24/2024 7:30 AM EDT PACE Home Care / P[facility] Home Visit [facility] [place] [facility] [address] [place] [phone] Cheryle Pryor 11/24/2024 9:00 AM EDT PACE Attendance[facility] [place] [facility] [address] [place] [address] 11/25/2024 7:30 AM EDT PACE Home Care / PACE Home Visit [facility] [address] [place] [phone] Cheryle Pryor 11/25/2024 10:30 AM EDT PACE Home Care / PACE Home Visit [facility] [address] [place] [phone] Cheryle Pryor 11/26/2024 7:30 AM EDT PACE Home Care / PACE Home Visit [facility] [address] [place] [phone] Shawna Lebron 11/26/2024 9:00 AM EDT P[facility] Attendance[facility] [place] [facility] [address] [place] [phone] 11/27/2024 7:30 AM EDT PACE Home Care / PACE Home Visit [facility] [address] [place] [phone] Cheryle Pryor 11/28/2024 7:30 AM EDT PACE Home Care / PACE Home Visit [facility] [address] [place] [phone] Shawna Lebron 11/28/2024 10:30 AM EDT PACE Home Care / PACE Home Visit [facility] [address] [place] [phone] Jhoana Grijalva 11/29/2024 7:30 AM EDT PACE Home Care / PACE Home Visit [facility] [address] [place] [phone] Jhoana Grijalva 11/30/2024 7:30 AM EDT PACE Home Care / [facility] Visit [facility] [address] [place] [address] Jhoana Grijalva 12/01/2024 7:30 AM EDT PACE Home Care / [facility] Visit [facility] [address] [place] [address] Cheryle Pryor 12/01/2024 9:00 AM EDT P[facility] Att[facility] [place] [facility] [address] [place] [address] 12/02/2024 7:30 AM EDT PACE Home Care / [facility] Home Visit [facility] [address] [place] [phone] Cheryle Pryor 12/03/2024 7:30 AM EDT PACE Home Care / [facility] Home Visit [facility] [address] [place] [phone] Shawna Lebron 12/03/2024 9:00 AM EDT P[facility] Attendance[facility] [place] [facility] [address] [place] [address] 12/04/2024 7:30 AM EDT PACE Home Care / [facility] Home Visit [facility] [address] [place] [phone] Cheryle Pryor 12/05/2024 7:30 AM EDT PACE Home Care / [facility] Home Visit [facility] [address] [place] [phone] Shawna Lebron 12/05/2024 10:30 AM EDT PACE Home Care / [facility] Visit [facility] [address] [place] [phone] Jhoana Grijalva 12/06/2024 7:30 AM EDT PACE Home Care / [facility] Visit [facility] [address] [place] [address] Cheryle Pryor 12/07/2024 7:30 AM EDT PACE Home Care / PACE Home Visit [facility] [address] [place] [address] Cheryle Pryor 12/08/2024 9:00 AM EDT [facility] [place] [facility] [address] [place] [address] 12/10/2024 9:00 AM EDT P[facility] [place] [facility] [address] [place] [phone] 12/15/2024 9:00 AM EDT P[facility] [place] [facility] [address] [place] [phone] 12/17/2024 9:00 AM EDT P[facility] Att[facility] [place] [facility] [address] [place] [phone] 12/22/2024 9:00 AM EDT P[facility] Att[facility] [place] [facility] [address] [place] [phone] 12/24/2024 9:00 AM EDT P[facility] Att[facility] [place] [facility] [address] [place] [phone] 12/29/2024 9:00 AM EDT P[facility] [place] [facility] [address] [place] [phone] 12/31/2024 9:00 AM EDT P[facility] [place] [facility] [address] [place] [phone] 01/05/2025 9:00 AM EDT P[facility] [place] [facility] [address] [place] [phone] 01/07/2025 9:00 AM EDT P[facility] Attend[facility] [place] [facility] [address] [place] [address] 01/12/2025 9:00 AM EDT P[facility] Att[facility] [place] [facility] [address] [place] [address] 01/14/2025 9:00 AM EDT P[facility] Attendance[facility] [place] [facility] [address] [place] [address] 01/19/2025 9:00 AM EDT P[facility] Attend[facility] [place] [facility] [address] [place] [phone] 01/21/2025 9:00 AM EDT P[facility] Attend[facility] [place] [facility] [address] [place] [address] 01/26/2025 9:00 AM EDT P[facility] Attend[facility] [place] [facility] [address] [place] [phone] 01/28/2025 9:00 AM EDT P[facility] [place] [facility] [address] [place] [phone] 02/02/2025 9:00 AM EDT [facility] [place] [facility] [address] [place] [phone] 02/04/2025 9:00 AM EDT [facility] [place] [facility] [address] [place] [address] 02/09/2025 9:00 AM EDT [facility] [place] [facility] [address] [place] [address] 02/11/2025 9:00 AM EDT [facility] [place] [facility] [address] [place] [phone] 02/16/2025 9:00 AM EDT P[facility] Attendance[facility] [place] [facility] [address] [place] [address] 02/18/2025 9:00 AM EDT P[facility] Attend[facility] [place] [facility] [address] [place] [address] 02/23/2025 9:00 AM EDT P[facility] Attend[facility] [place] [facility] [address] [place] [address] 02/25/2025 9:00 AM EDT P[facility] [place] [facility] [address] [place] [address] 03/02/2025 9:00 AM EDT P[facility] Attend[facility] [place] [facility] [address] [place] [phone] 03/04/2025 9:00 AM EDT P[facility] Attend[facility] [place] [facility] [address] [place] [address] 03/09/2025 9:00 AM EDT P[facility] Attend[facility] [place] [facility] [address] [place] [phone] 03/11/2025 9:00 AM EDT PACE Attendance[facility] [place] [facility] [address] [place] [phone] 03/16/2025 9:00 AM EDT P[facility] Att[facility] [place] [facility] [address] [place] [address] 03/18/2025 9:00 AM EDT P[facility] Att[facility] [place] [facility] [address] [place] [address] 03/23/2025 9:00 AM EDT P[facility] Att[facility] [place] [facility] [address] [place] [address] 03/25/2025 9:00 AM EDT P[facility] [place] [facility] [address] [place] [address] 03/30/2025 9:00 AM EDT P[facility] Attend[facility] [place] [facility] [address] [place] [address] 04/01/2025 9:00 AM EDT P[facility] Att[facility] [place] [facility] [address] [place] [address] 04/06/2025 9:00 AM EDT P[facility] Att[facility] [place] [facility] [address] [place] [address] 04/08/2025 9:00 AM EDT P[facility] Att[facility] [place] [facility] [address] [place] [phone] 04/13/2025 9:00 AM EDT P[facility] Att[facility] [place] [facility] [address] [place] [address] 04/15/2025 9:00 AM EDT P[facility] Att[facility] [place] [facility] [address] [place] [phone] 04/20/2025 9:00 AM EDT P[facility] Attend[facility] [place] [facility] [address] [place] [address] 04/22/2025 9:00 AM EDT [facility] [place] [facility] [address] [place] [phone] 04/27/2025 9:00 AM EST P[facility] [place] [facility] [address] [place] [address] 04/29/2025 9:00 AM EST [facility] [place] [facility] [address] [place] [phone] 05/04/2025 9:00 AM EST P[facility] [place] [facility] [address] [place] [address] 05/06/2025 9:00 AM EST [facility] [place] [facility] [address] [place] [address] 05/11/2025 9:00 AM EST P[facility] [place] [facility] [address] [place] [address] 05/13/2025 9:00 AM EST P[facility] [place] [facility] [address] [place] [address] 05/18/2025 9:00 AM EST P[facility] Att[facility] [place] [facility] [address] [place] [address] 05/20/2025 9:00 AM EST P[facility] Attend[facility] [place] [facility] [address] [place] [address] 05/25/2025 9:00 AM EST P[facility] Attend[facility] [place] [facility] [address] [place] [phone] 05/27/2025 9:00 AM EST P[facility] [place] [facility] [address] [place] [phone] 06/01/2025 9:00 AM EST PACE Attend[facility] [place] [facility] [address] [place] [address] 06/03/2025 9:00 AM EST PACE Att[facility] [place] [facility] [address] [place] [address] 06/08/2025 9:00 AM EST PACE Attend[facility] [place] [facility] [address] [place] [address] 06/10/2025 9:00 AM EST PACE Att[facility] [place] [facility] [address] [place] [address] 06/15/2025 9:00 AM EST PACE Attend[facility] [place] [facility] [address] [place] [address] 06/17/2025 9:00 AM EST PACE Attend[facility] [place] [facility] [address] [place] [address] 06/22/2025 9:00 AM EST PACE Attend[facility] [place] [facility] [address] [place] [address] 06/24/2025 9:00 AM EST PACE Att[facility] [place] [facility] [address] [place] [address] 06/29/2025 9:00 AM EST P[facility] [place] [facility] [address] [place] [address] 07/01/2025 9:00 AM EST PACE [facility] [place] [facility] [address] [place] [address] 07/06/2025 9:00 AM EST P[facility] [place] [facility] [address] [place] [phone] 2025 9:00 AM EST P[facility] Att[facility] [place] [facility] [address] [place] [phone] 07/13/2025 9:00 AM EST PACE Att[facility] [facility] [place] [facility] [address] [place] [address] 07/15/2025 9:00 AM EST PACE Att[facility] [place] [facility] [address] [place] [address] 07/20/2025 9:00 AM EST PACE Att[facility] [facility] [place] [facility] [address] [place] [address] 07/22/2025 9:00 AM EST PACE Attendance/Day [place] [employer] [place] [facility] [address] [place] [address] 07/27/2025 9:00 AM EST P[facility] [place] [facility] [address] [place] [address] 07/29/2025 9:00 AM EST PACE [facility] [place] [facility] [address] [address] 08/03/2025 9:00 AM EST PACE Attendance/[facility] Day [address] [address] documented as of this encounter Visit Diagnoses Not on filedocumented in this encounter Care Teams Laborer Tin Can Relationship Specialty Start Date End Date Dede Pimentel NP [address] [place] [id number] PCP - General Family Medicine 05/02/24 documented as of this encounter
--- OUTSIDE RECORDS SUMMARY | 2024-10-16 21:18 | XMS_ITS | Encounter Summary ---
Author Organization [facility] Address [address] [place] [address] Care Team Providers Care Cosmetic Chemist Name Role Phone Dede Pimentel CHIEF ENGINEER Primary Care Provider Reason for Visit * Reason Comments Diarrhea Nausea Encounter Details Date Type Department Care Team (Late st Contact Info) Description 10/13/2024 11:00 AM EDT [facility] [address] [place] [address] Sandy Keith RN Arrived Social History Tobacco Use Types Packs/Day Years [...] Sign Reading Time Taken Comments Blood Pressure 142/86 10/13/2024 8:15 PM EDT Pulse 82 10/13/2024 8:15 PM EDT Temperature 36.7 ??C (98 ??F) 10/13/2024 8:15 PM EDT Respiratory Rate 16 10/13/2024 8:15 PM EDT Oxygen Saturation 95% 10/13/2024 8:15 PM EDT Inhaled Oxygen Concentration - - Weight - - Height - - Body Mass Index - - documented in this encounter Progress Notes * Sandy Keith RN - 10/13/2024 11:00 AM EDT Par seen in home for assessment and to deliver Zofran. Daughter called clinic to report NVD. Par reports NVD since yesterday. Vomited x4 since yesterday. Able to keep fluids down this morning. [id number] qh x2 days left with par. Educated on med indications and instructions on times to take. Verbalized understanding. Flat affect but answering questions appropriately. Educated on importance of keeping hydrated, bland diet and when to contact clinic. Verbalized understanding. Par reports not getting any sleep last night dt frequent bathroom trips. Plan was to rest today. VSS. Denies pain. Wearing 02 as ordered. Using RW with steady gait. Denies dizziness, SOB. VSS. Plan to continue monitoringat MLOM. documented in this encounter Plan of Treatment Upcoming Encounters Date Type Department Care Team (Late st Contact Info) Description 10/17/2024 7:30 AM EDT PACE Home Care / PACE Home Visit [facility] [address] [place] [phone] Shawna Lebron 10/17/2024 9:00 AM EDT Consult [facility] [place] [address] [place] [phone] 10/18/2024 7:30 AM EDT PACE Home Care / PACE Home Visit [facility] [address] [place] [phone] Jhoana Grijalva 10/19/2024 7:30 AM EDT PACE Home Care / PACE Home Visit [facility] [address] [place] [phone] Jhoana Grijalva 10/20/2024 7:30 AM EDT PACE Home [facility] / [facility] [address] [place] [address] Cheryle Pryor 10/20/2024 9:00 AM EDT [facility] [place] [facility] [address] [place] [address] 10/20/2024 9:00 AM EDT Consult [facility] [address] [place] [address] 10/21/2024 7:30 AM EDT PACE Home Care / [facility] [address] [place] [phone] Cheryle Pryor 10/21/2024 9:00 AM EDT Consult [facility] [place] [address] [place] [phone] 10/21/2024 10:30 AM EDT PACE Home Care / [facility] [place] [facility] [address] [place] [phone] Cheryle Pryor 10/22/2024 7:30 AM EDT PACE Home Care / [facility] [place] [facility] [address] [place] [phone] Shawna Lebron 10/22/2024 9:00 AM EDT [facility] [facility] [place] [facility] [address] [place] [address] 10/22/2024 9:00 AM EDT Consult [facility] [place] [address] [place] [phone] 10/23/2024 7:30 AM EDT PACE Home Care / [facility] [address] [place] [phone] Cheryle Pryor 10/23/2024 9:00 AM EDT Consult [facility] [place] [address] [place] [address] 10/24/2024 7:30 AM EDT PACE Home Care / [facility] [facility] [address] [place] [address] Shawna Lebron 10/24/2024 9:00 AM EDT Consult [facility] [address] [place] [address] 10/25/2024 7:30 AM EDT PACE Home Care / [facility] [facility] [place] [facility] [address] [place] [phone] Cheryle Pryor 10/26/2024 7:15 AM EDT PACE Home Care / [facility] [place] [facility] [address] [place] [phone] Cheryle Pryor 10/27/2024 7:30 AM EDT PACE Home Care / [facility] [facility] [address] [place] [phone] Cheryle Pryor 10/27/2024 9:00 AM EDT [facility] [place] [facility] [place] [facility] [address] [place] [phone] 10/28/2024 7:30 AM EDT PACE Home Care / [facility] [facility] [place] [facility] [address] [place] [phone] Cheryle Pryor 10/28/2024 10:30 AM EDT PACE Home Care / [facility] [facility] [place] [facility] [address] [place] [phone] Cheryle Pryor 10/29/2024 7:30 AM EDT PACE Home Care / [facility] [address] [place] [phone] Shawna Lebron 10/29/2024 9:00 AM EDT [facility] [facility] [place] [facility] [address] [place] [phone] 10/30/2024 7:30 AM EDT PACE Home Care / [facility] [facility] [address] [place] [phone] Cheryle Pryor 10/31/2024 7:30 AM EDT PACE Home Care / [place] [facility] [address] [place] [phone] Shawna Lebron 10/31/2024 10:30 AM EDT PACE Home Care / [place] [facility] [address] [place] [phone] Jhoana Grijalva 11/01/2024 7:30 AM EDT PACE Home Care / [facility] [address] [place] [phone] Jhoana Grijalva 11/02/2024 7:30 AM EDT PACE Home Care / [facility] [address] [place] [phone] Jhoana Grijalva 11/03/2024 7:30 AM EDT PACE Home Care / [facility] [facility] [address] [place] [phone] Cheryle Pryor 11/03/2024 9:00 AM EDT [facility] [facility] [place] [facility] [address] [place] [phone] 11/04/2024 7:30 AM EDT PACE Home [facility] / [facility] [facility] [place] [facility] [address] [place] [phone] Cheryle Pryor 11/04/2024 10:30 AM EDT PACE Home Care / [facility] [address] [place] [phone] Cheryle Pryor 11/05/2024 7:30 AM EDT PACE Home Care / [facility] [place] [facility] [address] [place] [phone] Shawna Lebron 11/05/2024 9:00 AM EDT [facility] Att[facility] [place] [facility] [address] [place] [phone] 11/06/2024 7:30 AM EDT PACE Home Care / [facility] [place] [facility] [address] [place] [phone] Cheryle Pryor 11/06/2024 10:00 AM EDT Clinical Support [facility] [place] [address] [place] [address] 11/07/2024 7:30 AM EDT PACE Home Care / [facility] Home [facility] [place] [facility] [address] [place] [phone] Shawna Lebron 11/07/2024 10:30 AM EDT PACE Home Care / [facility] Home [facility] [place] [facility] [address] [place] [phone] Jhoana Grijalva 11/08/2024 7:30 AM EDT PACE Home Care / [facility] Home [facility] [place] [facility] [address] [place] [phone] Cheryle Pryor 11/09/2024 7:30 AM EDT PACE Home Care / [facility] Home [facility] [place] [facility] [address] [place] [phone] Cheryle Pryor 11/10/2024 7:30 AM EDT PACE Home Care / [facility] [address] [place] [address] Cheryle Pryor 11/10/2024 9:00 AM EDT [facility] Att[facility] [facility] [place] [facility] [address] [place] [address] 11/10/2024 9:45 AM EDT Office Visit [facility] [address] [place] [phone] Gemini Simmons MD [address] [place] [address] [place] [address] 11/11/2024 7:30 AM EDT PACE Home Care / P[facility] [address] [place] [phone] Cheryle Pryor 11/11/2024 10:30 AM EDT PACE Home Care / [facility] [address] [place] [phone] Cheryle Pryor 11/12/2024 7:30 AM EDT PACE Home Care / [facility] [place] [facility] [address] [place] [phone] Shawna Lebron 11/12/2024 9:00 AM EDT [facility] Att[facility] [facility] [place] [facility] [address] [place] [address] 11/13/2024 7:30 AM EDT PACE Home Care / [facility] [address] [place] [phone] Cheryle Pryor 11/14/2024 7:30 AM EDT PACE Home Care / [facility] [address] [place] [phone] Shawna Lebron 11/14/2024 10:30 AM EDT PACE Home Care / [facility] [address] [place] [phone] Jhoana Grijalva 11/15/2024 7:30 AM EDT PACE Home Care / [facility] [address] [place] [phone] Jhoana Grijalva 11/16/2024 7:30 AM EDT PACE Home Care / [facility] [address] [place] [phone] Jhoana Grijalva 11/17/2024 7:30 AM EDT PACE Home Care / [facility] [address] [place] [phone] Cheryle Pryor 11/17/2024 9:00 AM EDT [facility] [facility] [place] [facility] [address] [place] [phone] 11/18/2024 7:30 AM EDT PACE Home Care / [facility] [address] [place] [phone] Cheryle Pryor 11/18/2024 10:30 AM EDT PACE Home Care / [facility] [address] [place] [phone] Cheryle Pryor 11/19/2024 7:30 AM EDT PACE Home Care / [facility] [address] [place] [phone] Shawna Lebron 11/19/2024 9:00 AM EDT [facility] [facility] [place] [facility] [address] [place] [phone] 11/20/2024 7:30 AM EDT PACE Home Care / [facility] [address] [place] [phone] Cheryle Pryor 11/21/2024 7:30 AM EDT PACE Home Care / [facility] [facility] [address] [place] [phone] Shawna Lebron 11/21/2024 10:30 AM EDT PACE Home Care / [place] [facility] [address] [place] [phone] Jhoana Grijalva 11/22/2024 7:30 AM EDT PACE Home Care / [facility] [facility] [address] [place] [phone] Cheryle Pryor 11/23/2024 7:30 AM EDT PACE Home Care / [facility] [facility] [address] [place] [phone] Cheryle Pryor 11/24/2024 7:30 AM EDT PACE Home Care / [facility] [facility] [address] [place] [phone] Cheryle Pryor 11/24/2024 9:00 AM EDT [facility] [facility] [facility] [place] [facility] [address] [place] [address] 11/25/2024 7:30 AM EDT PACE Home Care / [facility] [facility] [address] [place] [phone] Cheryle Pryor 11/25/2024 10:30 AM EDT PACE Home Care / [facility] [facility] [address] [place] [phone] Cheryle Pryor 11/26/2024 7:30 AM EDT PACE Home Care / [facility] [address] [place] [phone] Shawna Lebron 11/26/2024 9:00 AM EDT P[facility] Attend[facility] [place] [facility] [address] [place] [phone] 11/27/2024 7:30 AM EDT PACE Home Care / [facility] [place] [facility] [address] [place] [phone] Cheryle Pryor 11/28/2024 7:30 AM EDT PACE Home Care / [facility] [place] [facility] [address] [place] [phone] Shawna Lebron 11/28/2024 10:30 AM EDT PACE Home Care / [facility] [place] [facility] [address] [place] [phone] Jhoana Grijalva 11/29/2024 7:30 AM EDT PACE Home Care / [facility] [place] [facility] [address] [place] [phone] Jhoana Grijalva 11/30/2024 7:30 AM EDT PACE Home Care / [facility] [address] [place] [phone] Jhoana Grijalva 12/01/2024 7:30 AM EDT PACE Home Care / [facility] [address] [place] [phone] Cheryle Pryor 12/01/2024 9:00 AM EDT P[facility] Att[facility] [place] [facility] [address] [place] [phone] 12/02/2024 7:30 AM EDT PACE Home Care / [facility] [address] [place] [phone] Cheryle Pryor 12/03/2024 7:30 AM EDT PACE Home Care / [facility] [address] [place] [phone] Shawna Lebron 12/03/2024 9:00 AM EDT [facility] [facility] [place] [facility] [address] [place] [phone] 12/04/2024 7:30 AM EDT PACE Home Care / [facility] [address] [place] [phone] Cheryle Pryor 12/05/2024 7:30 AM EDT PACE Home Care / [facility] [facility] [address] [place] [phone] Shawna Lebron 12/05/2024 10:30 AM EDT PACE Home Care / [facility] [address] [place] [phone] Jhoana Grijalva 12/06/2024 7:30 AM EDT PACE Home Care / [facility] [address] [place] [phone] Cheryle Pryor 12/07/2024 7:30 AM EDT PACE Home Care / [facility] [address] [place] [phone] Cheryle Pryor 12/08/2024 9:00 AM EDT [facility] [facility] [place] [facility] [address] [place] [phone] 12/10/2024 9:00 AM EDT [facility] Att[facility] [facility] [place] [facility] [address] [place] [address] 12/15/2024 9:00 AM EDT [facility] [place] [facility] [address] [place] [address] 12/17/2024 9:00 AM EDT [facility] [place] [facility] [address] [place] [address] 12/22/2024 9:00 AM EDT [facility] Att[facility] [place] [facility] [address] [place] [address] 12/24/2024 9:00 AM EDT P[facility] Att[facility] [place] [facility] [address] [place] [address] 12/29/2024 9:00 AM EDT [facility] [place] [facility] [address] [place] [address] 12/31/2024 9:00 AM EDT [facility] [place] [facility] [address] [place] [phone] 01/05/2025 9:00 AM EDT [facility] [place] [facility] [address] [place] [phone] 01/07/2025 9:00 AM EDT [facility] [place] [facility] [address] [place] [address] 01/12/2025 9:00 AM EDT [facility] [place] [facility] [address] [place] [address] 01/14/2025 9:00 AM EDT [facility] Att[facility] [place] [facility] [address] [place] [address] 01/19/2025 9:00 AM EDT [facility] [place] [facility] [address] [place] [address] 01/21/2025 9:00 AM EDT P[facility] Att[facility] [place] [facility] [address] [place] [address] 01/26/2025 9:00 AM EDT P[facility] [place] [facility] [address] [place] [address] 01/28/2025 9:00 AM EDT P[facility] Att[facility] [place] [facility] [address] [place] [address] 02/02/2025 9:00 AM EDT P[facility] Att[facility] [place] [facility] [address] [place] [address] 02/04/2025 9:00 AM EDT P[facility] [place] [facility] [address] [place] [phone] 02/09/2025 9:00 AM EDT P[facility]end[facility] [place] [facility] [address] [place] [address] 02/11/2025 9:00 AM EDT P[facility] Attend[facility] [place] [facility] [address] [place] [phone] 02/16/2025 9:00 AM EDT P[facility] Att[facility] [place] [facility] [address] [place] [address] 02/18/2025 9:00 AM EDT [facility] [place] [facility] [address] [place] [address] 02/23/2025 9:00 AM EDT [facility] [place] [facility] [address] [place] [address] 02/25/2025 9:00 AM EDT [facility] [place] [facility] [address] [place] [address] 03/02/2025 9:00 AM EDT P[facility] Attend[facility] [place] [facility] [address] [place] [address] 03/04/2025 9:00 AM EDT P[facility] [place] [facility] [address] [place] [address] 03/09/2025 9:00 AM EDT [facility] Att[facility] [place] [facility] [address] [place] [address] 03/11/2025 9:00 AM EDT P[facility] [place] [facility] [address] [place] [address] 03/16/2025 9:00 AM EDT P[facility] [place] [facility] [address] [place] [address] 03/18/2025 9:00 AM EDT P[facility] [place] [facility] [address] [place] [address] 03/23/2025 9:00 AM EDT P[facility] [place] [facility] [address] [place] [address] 03/25/2025 9:00 AM EDT P[facility] [place] [facility] [address] [place] [phone] 03/30/2025 9:00 AM EDT [facility] [place] [facility] [address] [place] [address] 04/01/2025 9:00 AM EDT [facility] [place] [facility] [address] [place] [address] 04/06/2025 9:00 AM EDT P[facility] [place] [facility] [address] [place] [address] 04/08/2025 9:00 AM EDT [facility] [place] [facility] [address] [place] [address] 04/13/2025 9:00 AM EDT [facility] [place] [facility] [address] [place] [address] 04/15/2025 9:00 AM EDT [facility] [place] [facility] [address] [place] [address] 04/20/2025 9:00 AM EDT [facility] [place] [facility] [address] [place] [address] 04/22/2025 9:00 AM EDT [facility] [place] [facility] [address] [place] [address] 04/27/2025 9:00 AM EST [facility] [place] [facility] [address] [place] [address] 04/29/2025 9:00 AM EST [facility] [place] [facility] [address] [place] [address] 05/04/2025 9:00 AM EST [facility] [place] [facility] [address] [place] [address] 05/06/2025 9:00 AM EST [facility] [place] [facility] [address] [place] [address] 05/11/2025 9:00 AM EST [facility] [place] [facility] [address] [place] [address] 05/13/2025 9:00 AM EST [facility] [place] [facility] [address] [place] [phone] 05/18/2025 9:00 AM EST [facility] [place] [facility] [address] [place] [address] 05/20/2025 9:00 AM EST [facility] [place] [facility] [address] [place] [address] 05/25/2025 9:00 AM EST [facility] [place] [facility] [address] [place] [address] 05/27/2025 9:00 AM EST [facility] [place] [facility] [address] [place] [address] 06/01/2025 9:00 AM EST [facility] [place] [facility] [address] [place] [address] 06/03/2025 9:00 AM EST [facility] [place] [facility] [address] [place] [address] 06/08/2025 9:00 AM EST [facility] [place] [facility] [address] [place] [address] 06/10/2025 9:00 AM EST [facility] [place] [facility] [address] [place] [address] 06/15/2025 9:00 AM EST [facility] [place] [facility] [address] [place] [address] 06/17/2025 9:00 AM EST P[facility] [place] [facility] [address] [place] [phone] 06/22/2025 9:00 AM EST P[facility] [place] [facility] [address] [place] [address] 06/24/2025 9:00 AM EST [facility] [place] [facility] [address] [place] [address] 06/29/2025 9:00 AM EST [facility] [place] [facility] [address] [place] [address] 07/01/2025 9:00 AM EST [facility] [place] [facility] [address] [place] [address] 07/06/2025 9:00 AM EST [facility] [place] [facility] [address] [place] [phone] 2025 9:00 AM EST [facility] [place] [facility] [address] [place] [address] 07/13/2025 9:00 AM EST P[facility] [place] [facility] [address] [place] [address] 07/15/2025 9:00 AM EST [facility] [place] [facility] [address] [place] [address] 07/20/2025 9:00 AM EST P[facility] [place] [facility] [address] [place] [address] 07/22/2025 9:00 AM EST P[facility] [place] [facility] [address] [place] [address] 07/27/2025 9:00 AM EST P[facility] [place] [facility] [address] [place] [address] 07/29/2025 9:00 AM EST P[facility] [place] [facility] [address] [place] [address] 08/03/2025 9:00 AM EST [facility] [place] [facility] [address] [place] [address] documented as of this encounter Visit Diagnoses Not on filedocumented in this encounter Care Teams Cosmetic Chemist Relationship Specialty Start Date End Date Dede Pimentel NP [address] [place] [address] PCP - General Family Medicine 05/02/24 documented as of this encounter
--- OUTSIDE RECORDS SUMMARY | 2024-10-16 21:19 | XMS_ITS | Encounter Summary ---
Author Organization [facility] Address [address] [place] [address] Care Team Providers Care Tufting Machine Operator Single Needle Name Role Phone Dede Pimentel RETAIL PRICING COORDINATOR Primary Care Provider [phone] Encounter Details Date Type Department Care Team (Late st Contact Info) Description 07/04/2024 Lab Requisition [facility] - Main Lab [address] [place] [address] Dede Pimentel NP [address] [facility] [address] [place], [place] [id number] Encounter for general adult medical examination without [...] [place] [facility] [address] [place] [phone] Shawna Lebron 10/17/2024 9:00 AM EDT Consult [facility] [place] [address] [place] [address] 10/18/2024 7:30 AM EDT PACE Home Care / [facility] Home [facility] [place] [facility] [address] [place] [phone] Jhoana Grijalva 10/19/2024 7:30 AM EDT PACE Home Care / PACE Home Visit [facility] [place] [facility] [address] [place] [phone] Jhoana Grijalva 10/20/2024 7:30 AM EDT PACE Home Care / [facility] Home [facility] [place] [facility] [address] [place] [phone] Cheryle Pryor 10/20/2024 9:00 AM EDT PACE Attend[facility]/[place] [facility] [place] [facility] [address] [place] [phone] 10/20/2024 9:00 AM EDT Consult [facility] [place] [address] [place] [phone] 10/21/2024 7:30 AM EDT PACE Home Care / [facility] [place] [facility] [address] [place] [phone] Cheryle Pryor 10/21/2024 9:00 AM EDT Consult [facility] [place] [address] [place] [phone] 10/21/2024 10:30 AM EDT PACE Home Care / [facility] [place] [facility] [address] [place] [phone] Cheryle Pryor 10/22/2024 7:30 AM EDT PACE Home Care / [facility] Home Visit [facility] [place] [facility] [address] [place] [phone] Shawna Lebron 10/22/2024 9:00 AM EDT PACE Attend[facility] [place] [facility] [address] [place] [phone] 10/22/2024 9:00 AM EDT Consult [facility] [place] [address] [place] [phone] 10/23/2024 7:30 AM EDT PACE Home Care / P[facility] Home Visit [facility] [place] [facility] [address] [place] [phone] Cheryle Pryor 10/23/2024 9:00 AM EDT Consult [facility] [address] [place] [phone] 10/24/2024 7:30 AM EDT PACE Home Care / PACE Home Visit [facility] [place] [facility] [address] [place] [phone] Shawna Lebron 10/24/2024 9:00 AM EDT Consult [facility] [address] [place] [phone] 10/25/2024 7:30 AM EDT PACE Home Care / PACE Home Visit [facility] [place] [facility] [address] [place] [phone] Cheryle Pryor 10/26/2024 7:15 AM EDT PACE Home Care / [facility] Visit [facility] [place] [facility] [address] [place] [phone] Cheryle Pryor 10/27/2024 7:30 AM EDT PACE Home Care / PACE Home Visit [facility] [place] [facility] [address] [place] [phone] Cheryle Pryor 10/27/2024 9:00 AM EDT PACE Attend[facility] [place] [facility] [address] [place] [address] 10/28/2024 7:30 AM EDT PACE Home Care / PACE Home Visit [facility] [place] [facility] [address] [place] [phone] Cheryle Pryor 10/28/2024 10:30 AM EDT PACE Home Care / PACE Home Visit [facility] [place] [facility] [address] [place] [phone] Cheryle Pryor 10/29/2024 7:30 AM EDT PACE Home Care / PACE Home Visit [facility] [place] [facility] [address] [place] [phone] Shawna Lebron 10/29/2024 9:00 AM EDT PACE Attend[facility] [place] [facility] [address] [place] [address] 10/30/2024 7:30 AM EDT PACE Home Care / PACE Home Visit [facility] [place] [facility] [address] [place] [phone] Cheryle Pryor 10/31/2024 7:30 AM EDT PACE Home Care / PACE Home Visit [facility] [place] [facility] [address] [place] [phone] Shawna Lebron 10/31/2024 10:30 AM EDT PACE Home Care / [facility] Home Visit [facility] [place] [facility] [address] [place] [phone] Jhoana Grijalva 11/01/2024 7:30 AM EDT PACE Home Care / [facility] [place] [facility] [address] [place] [phone] Jhoana Grijalva 11/02/2024 7:30 AM EDT PACE Home Care / PACE Home Visit [facility] [place] [facility] [address] [place] [phone] Jhoana Grijalva 11/03/2024 7:30 AM EDT PACE Home Care / PACE Home Visit [facility] [place] [facility] [address] [place] [phone] Cheryle Pryor 11/03/2024 9:00 AM EDT PACE Attend[facility] [place] [facility] [address] [place] [phone] 11/04/2024 7:30 AM EDT PACE Home Care / PACE Home Visit [facility] [place] [facility] [address] [place] [phone] Cheryle Pryor 11/04/2024 10:30 AM EDT PACE Home Care / PACE Home Visit [facility] [place] [facility] [address] [place] [phone] Cheryle Pryor 11/05/2024 7:30 AM EDT PACE Home Care / PACE Home Visit [facility] [place] [facility] [address] [place] [phone] Shawna Lebron 11/05/2024 9:00 AM EDT PACE Attend[facility] [place] [facility] [address] [place] [phone] 11/06/2024 7:30 AM EDT PACE Home Care / PACE Home Visit [facility] [place] [facility] [address] [place] [phone] Cheryle Pryor 11/06/2024 10:00 AM EDT Clinical Support [facility] [place] [address] [place] [address] 11/07/2024 7:30 AM EDT PACE Home Care / [facility] [place] [facility] [address] [place] [phone] Shawna Lebron 11/07/2024 10:30 AM EDT PACE Home Care / PACE Home Visit [facility] [place] [facility] [address] [place] [phone] Jhoana Grijalva 11/08/2024 7:30 AM EDT PACE Home Care / [facility] Home Visit [facility] [place] [facility] [address] [place] [phone] Cheryle Pryor 11/09/2024 7:30 AM EDT PACE Home Care / P[facility] Home Visit [facility] [place] [facility] [address] [place] [phone] Cheryle Pryor 11/10/2024 7:30 AM EDT PACE Home Care / PACE Home Visit [facility] [place] [facility] [address] [place] [phone] Cheryle Pryor 11/10/2024 9:00 AM EDT PACE Attend[facility] [place] [facility] [address] [place] [phone] 11/10/2024 9:45 AM EDT Office Visit [facility] [address] [address] Gemini Simmons MD [address] [place] [address] 11/11/2024 7:30 AM EDT PACE Home Care / PACE Home Visit [facility] [place] [facility] [address] [place] [phone] Cheryle Pryor 11/11/2024 10:30 AM EDT PACE Home Care / PACE Home Visit [facility] [place] [facility] [address] [place] [phone] Cheryle Pryor 11/12/2024 7:30 AM EDT PACE Home Care / [facility] [place] [facility] [address] [place] [phone] Shawna Lebron 11/12/2024 9:00 AM EDT PACE Attendance[facility] [place] [facility] [address] [place] [phone] 11/13/2024 7:30 AM EDT PACE Home Care / PACE Home Visit [facility] [place] [facility] [address] [place] [phone] Cheryle Pryor 11/14/2024 7:30 AM EDT PACE Home Care / PACE Home Visit [facility] [place] [facility] [address] [place] [phone] Shawna Lebron 11/14/2024 10:30 AM EDT PACE Home Care / PACE Home Visit [facility] [place] [facility] [address] [place] [phone] Jhoana Grijalva 11/15/2024 7:30 AM EDT PACE Home Care / PACE Home Visit [facility] [place] [facility] [address] [place] [phone] Jhoana Grijalva 11/16/2024 7:30 AM EDT PACE Home Care / [facility] Visit [facility] [place] [facility] [address] [place] [phone] Jhoana Grijalva 11/17/2024 7:30 AM EDT PACE Home Care / [facility] Visit [facility] [place] [facility] [address] [place] [phone] Cheryle Pryor 11/17/2024 9:00 AM EDT PACE Attend[facility] [place] [facility] [address] [place] [phone] 11/18/2024 7:30 AM EDT PACE Home Care / [facility] [place] [facility] [address] [place] [address] Cheryle Pryor 11/18/2024 10:30 AM EDT PACE Home Care / PACE Home Visit [facility] [place] [facility] [address] [place] [address] Cheryle Pryor 11/19/2024 7:30 AM EDT PACE Home Care / PACE Home Visit [facility] [place] [facility] [address] [place] [address] Shawna Lebron 11/19/2024 9:00 AM EDT PACE Attendance[facility] [place] [facility] [address] [place] [address] 11/20/2024 7:30 AM EDT PACE Home Care / PACE Home Visit [facility] [place] [facility] [address] [place] [address] Cheryle Pryor 11/21/2024 7:30 AM EDT PACE Home Care / PACE Home Visit [facility] [place] [facility] [address] [place] [phone] Shawna Lebron 11/21/2024 10:30 AM EDT PACE Home Care / [facility] Visit [facility] [place] [facility] [address] [place] [phone] Jhoana Grijalva 11/22/2024 7:30 AM EDT PACE Home Care / [facility] Visit [facility] [place] [facility] [address] [place] [phone] Cheryle Pryor 11/23/2024 7:30 AM EDT PACE Home Care / [facility] Visit [facility] [place] [facility] [address] [place] [phone] Cheryle Pryor 11/24/2024 7:30 AM EDT PACE Home Care / [facility] Visit [facility] [place] [facility] [address] [place] [phone] Cheryle Pryor 11/24/2024 9:00 AM EDT PACE Attendance[facility] [place] [facility] [address] [place] [phone] 11/25/2024 7:30 AM EDT PACE Home Care / [facility] Visit [facility] [place] [facility] [address] [place] [phone] Cheryle Pryor 11/25/2024 10:30 AM EDT PACE Home Care / [facility] Visit [facility] [place] [facility] [address] [place] [phone] Cheryle Pryor 11/26/2024 7:30 AM EDT PACE Home Care / [facility] [place] [facility] [address] [place] [phone] Shawna Lebron 11/26/2024 9:00 AM EDT PACE Attendance[facility] [place] [facility] [address] [place] [phone] 11/27/2024 7:30 AM EDT PACE Home Care / [facility] [place] [facility] [address] [place] [phone] Cheryle Pryor 11/28/2024 7:30 AM EDT PACE Home Care / [facility] Visit [facility] [place] [facility] [address] [place] [phone] Shawna Lebron 11/28/2024 10:30 AM EDT PACE Home Care / [facility] Visit [facility] [place] [facility] [address] [place] [phone] Jhoana Grijalva 11/29/2024 7:30 AM EDT PACE Home Care / [facility] Visit [facility] [place] [facility] [address] [place] [address] Jhoana Grijalva 11/30/2024 7:30 AM EDT PACE Home Care / [facility] Visit [facility] [place] [facility] [address] [place] [address] Jhoana Grijalva 12/01/2024 7:30 AM EDT PACE Home Care / PACE Home Visit [facility] [place] [facility] [address] [place] [address] Cheryle Pryor 12/01/2024 9:00 AM EDT PACE Attendance[facility] [place] [facility] [address] [place] [phone] 12/02/2024 7:30 AM EDT PACE Home Care / PACE Home Visit [facility] [place] [facility] [address] [place] [phone] Cheryle Pryor 12/03/2024 7:30 AM EDT PACE Home Care / PACE Home Visit [facility] [place] [facility] [address] [place] [phone] Shawna Lebron 12/03/2024 9:00 AM EDT PACE Attendance[facility] [place] [facility] [address] [place] [address] 12/04/2024 7:30 AM EDT PACE Home Care / [facility] [place] [facility] [address] [place] [phone] Cheryle Pryor 12/05/2024 7:30 AM EDT PACE Home Care / [facility] [place] [facility] [address] [place] [phone] Shawna Lebron 12/05/2024 10:30 AM EDT PACE Home Care / [facility] [place] [facility] [address] [place] [address] Jhoana Grijalva 12/06/2024 7:30 AM EDT PACE Home Care / PACE Home Visit [facility] [place] [facility] [address] [place] [address] Cheryle Pryor 12/07/2024 7:30 AM EDT PACE Home Care / PACE Home Visit [facility] [place] [facility] [address] [place] [address] Cheryle Pryor 12/08/2024 9:00 AM EDT [facility] [place] [facility] [address] [place] [phone] 12/10/2024 9:00 AM EDT P[facility] Attend[facility] [place] [facility] [address] [place] [address] 12/15/2024 9:00 AM EDT P[facility] Att[facility] [place] [facility] [address] [place] [address] 12/17/2024 9:00 AM EDT P[facility] Attend[facility] [place] [facility] [address] [place] [address] 12/22/2024 9:00 AM EDT P[facility] Attend[facility] [place] [facility] [address] [place] [address] 12/24/2024 9:00 AM EDT P[facility] Attend[facility] [place] [facility] [address] [place] [phone] 12/29/2024 9:00 AM EDT PACE Attendance[facility] [place] [facility] [address] [place] [address] 12/31/2024 9:00 AM EDT P[facility] Attend[facility] [place] [facility] [address] [place] [address] 01/05/2025 9:00 AM EDT PACE Attendance[facility] [place] [facility] [address] [place] [address] 01/07/2025 9:00 AM EDT PACE Attendance[facility] [place] [facility] [address] [place] [address] 01/12/2025 9:00 AM EDT PACE Attendance[facility] [place] [facility] [address] [place] [address] 01/14/2025 9:00 AM EDT PACE Attendance[facility] [place] [facility] [address] [place] [address] 01/19/2025 9:00 AM EDT PACE Attendance[facility] [place] [facility] [address] [place] [address] 01/21/2025 9:00 AM EDT PACE Attendance[facility] [place] [facility] [address] [place] [address] 01/26/2025 9:00 AM EDT PACE Attendance[facility] [place] [facility] [address] [place] [phone] 01/28/2025 9:00 AM EDT PACE Attendance[facility] [place] [facility] [address] [place] [address] 02/02/2025 9:00 AM EDT P[facility] Att[facility] [place] [facility] [address] [place] [address] 02/04/2025 9:00 AM EDT P[facility] Attend[facility] [place] [facility] [address] [place] [address] 02/09/2025 9:00 AM EDT PACE Attend[facility] [place] [facility] [address] [place] [phone] 02/11/2025 9:00 AM EDT P[facility] Attend[facility] [place] [facility] [address] [place] [address] 02/16/2025 9:00 AM EDT P[facility] Attend[facility] [place] [facility] [address] [place] [address] 02/18/2025 9:00 AM EDT P[facility] Attend[facility] [place] [facility] [address] [place] [address] 02/23/2025 9:00 AM EDT PACE Attendance[facility] [place] [facility] [address] [place] [address] 02/25/2025 9:00 AM EDT PACE Attendance[facility] [place] [facility] [address] [place] [address] 03/02/2025 9:00 AM EDT PACE Attendance[facility] [place] [facility] [address] [place] [address] 03/04/2025 9:00 AM EDT P[facility] Att[facility] [place] [facility] [address] [place] [address] 03/09/2025 9:00 AM EDT PACE Attend[facility] [place] [facility] [address] [place] [address] 03/11/2025 9:00 AM EDT P[facility] Attend[facility] [place] [facility] [address] [place] [address] 03/16/2025 9:00 AM EDT P[facility] Attendance[facility] [place] [facility] [address] [place] [address] 03/18/2025 9:00 AM EDT P[facility] Attend[facility] [place] [facility] [address] [place] [address] 03/23/2025 9:00 AM EDT PACE Attendance[facility] [place] [facility] [address] [place] [address] 03/25/2025 9:00 AM EDT PACE Attendance[facility] [place] [facility] [address] [place] [address] 03/30/2025 9:00 AM EDT PACE Attendance[facility] [place] [facility] [address] [place] [address] 04/01/2025 9:00 AM EDT PACE Attend[facility] [place] [facility] [address] [place] [address] 04/06/2025 9:00 AM EDT PACE Attendance[facility] [place] [facility] [address] [place] [address] 04/08/2025 9:00 AM EDT PACE Attendance[facility] [place] [facility] [address] [place] [address] 04/13/2025 9:00 AM EDT PACE Attendance[facility] [place] [facility] [address] [place] [address] 04/15/2025 9:00 AM EDT PACE Attendance[facility] [place] [facility] [address] [place] [phone] 04/20/2025 9:00 AM EDT PACE Attendance[facility] [place] [facility] [address] [place] [address] 04/22/2025 9:00 AM EDT P[facility] Att[facility] [place] [facility] [address] [place] [address] 04/27/2025 9:00 AM EST PACE Attendance[facility] [place] [facility] [address] [place] [address] 04/29/2025 9:00 AM EST [facility]ACE Attend[facility] [place] [facility] [address] [place] [address] 05/04/2025 9:00 AM EST P[facility] Attend[facility] [place] [facility] [address] [place] [address] 05/06/2025 9:00 AM EST PACE Attend[facility] [place] [facility] [address] [place] [address] 05/11/2025 9:00 AM EST P[facility] Attend[facility] [place] [facility] [address] [place] [address] 05/13/2025 9:00 AM EST P[facility] Att[facility] [place] [facility] [address] [place] [address] 05/18/2025 9:00 AM EST [facility] Att[facility] [place] [facility] [address] [place] [address] 05/20/2025 9:00 AM EST P[facility] [place] [facility] [address] [place] [address] 05/25/2025 9:00 AM EST PACE [facility] [place] [facility] [address] [place] [address] 05/27/2025 9:00 AM EST PACE Attend[facility] [place] [facility] [address] [place] [address] 06/01/2025 9:00 AM EST PACE Attend[facility] [place] [facility] [address] [place] [address] 06/03/2025 9:00 AM EST PACE Attend[facility] [place] [facility] [address] [place] [address] 06/08/2025 9:00 AM EST PACE Attend[facility] [place] [facility] [address] [place] [address] 06/10/2025 9:00 AM EST P[facility] Att[facility] [place] [facility] [address] [place] [address] 06/15/2025 9:00 AM EST PACE [facility] [place] [facility] [address] [place] [address] 06/17/2025 9:00 AM EST PACE Attend[facility] [place] [facility] [address] [place] [address] 06/22/2025 9:00 AM EST [facility] [place] [facility] [address] [place] [address] 06/24/2025 9:00 AM EST [facility] [place] [facility] [address] [place] [address] 06/29/2025 9:00 AM EST [facility] [place] [facility] [address] [place] [address] 07/01/2025 9:00 AM EST PACE Attend[facility] [place] [facility] [address] [place] [address] 07/06/2025 9:00 AM EST PACE [facility] [place] [facility] [address] [place] [address] 2025 9:00 AM EST PACE Attend[facility] [place] [facility] [address] [place] [address] 07/13/2025 9:00 AM EST PACE Attend[facility] [place] [facility] [address] [place] [address] 07/15/2025 9:00 AM EST PACE Attend[facility] [place] [facility] [address] [place] [address] 07/20/2025 9:00 AM EST PACE Att[facility] [place] [facility] [address] [place] [address] 07/22/2025 9:00 AM EST PACE Attend[facility] [place] [facility] [address] [place] [address] 07/27/2025 9:00 AM EST PACE [facility] [place] [facility] [address] [place] [address] 07/29/2025 9:00 AM EST P[facility] [place] [facility] [address] [place] [address] 08/03/2025 9:00 AM EST PACE Attendance/[facility] [place] [facility] [address] [place] [phone] documented as of this encounter Procedures Procedure [...] mirabilis(A ) ANNETTA 07/06/2024 11:50 AM EST [facility] Comment: Edited result: Previously reported [...] Proteus mirabilis Trimethoprim/Sulfamethoxazole ANNETTA >=320 ug/ml: Resistant us Dede Pimentel NP LAB MICROBIOLOGY - GENERAL OR DERABLES Final Result [facility] [address] [place] [address], [place] [phone] * Fernandez urine culture tube (07/04/2024 8:00 AM EST) Extra Tube Hold for add-ons. 07/04/2024 3:[address] [facility] Comment:Auto resulted. Urine Urine specimen obtained by clean catch procedure / Unknown 07/04/2024 8:00 AM EST 07/04/2024 1:35 PM EST us Dede Pimentel RETAIL PRICING COORDINATOR LAB URINE ORDERABLES Final Re sult [facility] [address] [place] [address], [place] [phone] * (ABNORMAL) Urinalysis with reflex microscopic and culture (07/04/2024 8:00 AM EST) [facility] Specific [place] Urine 1.036(H) 1.003 - 1.030 LAB URINALYSIS - AUTOMATED METHOD 07/04/2024 2:[address] [facility] pH, Urine 8.0 5.0 - 8.0 pH LAB URINALYSIS - AUTOMATED METHOD 07/04/2024 2:[address] [facility] Leukocytes, Urine Moderate(A) Negative LAB URINALYSIS - AUTOMATED METHOD 07/04/2024 2:[address] [facility] Nitrite, Urine Positive(A) Negative LAB URINALYSIS - AUTOMATED METHOD 07/04/2024 2:[address] [facility] Protein, Urine 100(A) <=Trace mg/dL LAB URINALYSIS - AUTOMATED METHOD 07/04/2024 2:[address] [facility] Glucose, Urine Negative Negative mg/dL LAB URINALYSIS - AUTOMATED METHOD 07/04/2024 2:[address] [facility] Ketones, Urine Trace(A) Negative mg/dL LAB URINALYSIS - AUTOMATED METHOD 07/04/2024 2:[address] [facility] Urobilinogen , Urine 1.0 0.2 - 1.0 mg/dL LAB URINALYSIS - AUTOMATED METHOD 07/04/2024 2:[address] [facility] Bilirubin, Urine Negative Negative LAB URINALYSIS - AUTOMATED METHOD 07/04/2024 2:[address] [facility] Blood, Urine Trace(A) Negative LAB URINALYSIS - AUTOMATED METHOD 07/04/2024 2:[address] [facility] RBC, Urine 14.3(H) 0 - 4 /HPF LAB URINALYSIS - AUTOMATED METHOD 07/04/2024 2:[address] [facility] WBC, Urine 295.7(H) 0 - 4 /HPF LAB URINALYSIS - AUTOMATED METHOD 07/04/2024 2:[address] [facility] Squamous Epithelial, Urine 64(H) 0 - 60 /LPF LAB URINALYSIS - AUTOMATED METHOD 07/04/2024 2:[address] [facility] Crystals, Urine LT TRIPLE PHOSPHATE /LPF LAB URINALYSIS - AUTOMATED METHOD 07/04/2024 2:[address] [facility] Bacteria, Urine Many(A) Negative /HPF LAB URINALYSIS - AUTOMATED METHOD 07/04/2024 2:[address] [facility] Hyaline Casts, Urine 4.2(H) 0 - 3 /LPF LAB URINALYSIS - AUTOMATED METHOD 07/04/2024 2:[address] [facility] Urine Urine specimen obtained by clean catch procedure / Unknown 07/04/2024 8:00 AM EST 07/04/2024 1:35 PM EST us Dede Pimentel NP LAB URINE ORDERABLES Final Re sult [facility] [address] [place] [address], documented in this encounter Visit Diagnoses Diagnosis Encounter for general adult medical examination without abnormal findings Encounter for screening mammogram for malignant neoplasm of breast Encounter for screening for osteoporosis Other specified disorders of bone density and structure, multiple sites Encounter for screening for malignant neoplasm of colon documented in this encounter 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
--- OUTSIDE RECORDS SUMMARY | 2024-10-16 21:19 | XMS_ITS | Clinical Summary ---
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 11/06/19 24 Active prazosin (MINIPRESS) 1 mg capsuleIndications :Post-traumatic stress disorder, acute Take 2 capsules (2 mg total) by mouth at bedtime for 28 days. 1 cap by mouth every day at bedtime 56 each 09/02/19 25 Active cholecalciferol (Vitamin D3) 50 mcg (2,000 unit) capsuleIndications :Vitamin D deficiency Take 3 capsules (6,000 Units total) by mouth 1 (one) time each day. 84 each 09/13/19 25 2025 Active estradioL (ESTRACE) 0.01 % (0.1 mg/gram) vaginal creamIndications:P ost-menopausal atrophic vaginitis Insert 2 g into the vagina 2 (two) times a week. 0.5 applicatorful as directed 2 times per week 42.5 g 09/16/19 Active albuterol HFA (PROAIR HFA ; PROVENTIL HFA ; VENTOLIN HFA) 90 mcg/actuation inhalerIndications :Chronic respiratory failure with hypoxia ([facility] V24, [facility] V28) Inhale 2 puffs by mouth every 6 (six) hours if needed for wheezing or shortness of breath. 6.7 g 09/13/19 25 2024 Active fluticasone-umecli dinium-vilanterol (Trelegy Ellipta) 100-62.5-25 mcg inhalerIndications :Chronic respiratory failure with hypoxia ([facility] V24, [facility] V28) Inhale 1 puff (100 mcg total) by mouth 1 (one) time each day. Rinse mouth with water after use to reduce aftertaste and incidence of candidiasis. Do not swallow. 1 each 09/13/19 25 2025 Active apixaban (ELIQUIS) 5 mg tabletIndications: Sinus tachycardia Take 1 tablet (5 mg total) by mouth 2 (two) times a day. 56 each 10/04/19 25 2025 Active metFORMIN (GLUCOPHAGE) 500 mg tabletIndications: Type 2 diabetes mellitus with hypoglycemia without coma, without long-term current use of insulin [place] [place] [facility] V28) Take 1 tablet (500 mg total) by mouth 1 (one) time each day with breakfast. 1 tab by mouth 1 time per day in the evening with meals 28 each 10/04/19 25 2025 Active potassium chloride (MICRO-K) 10 mEq CR capsuleIndications :Hypertensive heart disease with congestive heart failure, unspecified heart failure type ([facility] V24, [facility] V28) Take 1 capsule (10 mEq total) by mouth 1 (one) time each day. 1 tab by mouth 2 times per day 28 each 10/04/19 25 2025 Active OXcarbazepine (TRILEPTAL) 300 mg tabletIndications: Conversion disorder with attacks or seizures,Bipolar 1 disorder ([facility] V24, [facility] V28) Take 2 tablets (600 mg total) by mouth 2 (two) times a day. 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 1 patch onto the skin every 24 hours, in a.m. 28 patch 10/04/192024 Active metoprolol succinate (TOPROL-XL) 25 mg 24 hr tabletIndications: Sinus tachycardia Take 1 tablet (25 mg total) by mouth 1 (one) time each day. Do not crush or chew. 28 tablet 10/04/192025 Active methenamine hippurate (HIPREX) 1 gram tabletIndications: Recurrent UTI Take 1 tablet (1 g total) by mouth 1 (one) time each day in the morning. 1 tab by mouth every morning 28 each 10/04/192025 Active melatonin 3 mg tabletIndications: Insomnia, unspecified type Take 1 tablet (3 mg total) by mouth at bedtime. 1 tab by mouth every day at bedtime 28 each 10/04/192025 Active LORazepam (ATIVAN) 1 mg tabletIndications: Bipolar 1 disorder ([facility] V24, [facility] V28),Depression with anxiety,Anxiety Take 1 tablet (1 mg total) by mouth 3 (three) times a day before meals. Max Daily Amount: 3 mg 84 each 10/04/19 25 2024 Active lidocaine (Aspercreme, lidocaine,) 4 % patchIndications:F ibromyalgia Apply 1 patch topically 1 (one) time each day. 28 each 10/04/19 25 2024 Active hydrOXYzine HCL (ATARAX) 25 mg tabletIndications: Anxiety Take 1 tablet (25 mg total) by mouth every 6 (six) hours if needed for itching. 84 each 10/04/19 25 2024 Active gabapentin (NEURONTIN) 800 mg tabletIndications: neuropathic pain Take 1 tablet (800 mg total) by mouth 3 (three) times a day. 3 TIMES DAILY 84 each 10/04/19 25 2025 Active FLUoxetine (PROzac) 20 mg capsuleIndications :Bipolar 1 disorder (CMS/HCC V24, CMS/HCC V28) Take 1 capsule (20 mg total) by mouth 1 (one) time each day. 28 capsule 10/04/19 25 2025 Active ferrous sulfate 325 mg (65 mg iron) EC tabletIndications: Iron deficiency Take 1 tablet (325 mg total) by mouth 1 (one) time each day with breakfast. Do not crush, chew, or split. 28 each 10/04/19 25 2025 Active cyclobenzaprine (FLEXERIL) 10 mg tabletIndications: Fibromyalgia Take 1 tablet (10 mg total) by mouth 2 (two) times a day. 56 tablet 10/04/19 25 2024 Active bumetanide (BUMEX) 2 mg tabletIndications: Congestive heart failure, unspecified HF chronicity, unspecified heart failure type (CMS/HCC V24, CMS/HCC V28) Take 1 tablet (2 mg total) by mouth 1 (one) time each day in the morning. 1 tab QAM 28 each 10/04/19 25 2025 Active aspirin 81 mg chewable tabletIndications: Sinus tachycardia,Conges tive heart failure, unspecified HF chronicity, unspecified heart failure type (CMS/HCC V24, CMS/HCC V28),Cerebrovascul ar accident (CVA), unspecified mechanism (CMS/HCC V24, CMS/HCC V28) Chew 1 tablet (81 mg total) 1 (one) time each day. 1 tab chewed in the mouth daily 28 each 10/04/19 25 2025 Active atorvastatin (LIPITOR) 40 mg tabletIndications: Cerebrovascular accident (CVA), unspecified mechanism (CMS/HCC V24, CMS/HCC V28) Take 1 tablet (40 mg total) by mouth at bedtime. 28 each 10/04/19 25 2025 Active QUEtiapine (SeroqueL) 400 mg tabletIndications: Bipolar 1 disorder (CMS/HCC V24, CMS/HCC V28) Take 1 tablet (400 mg total) by mouth at bedtime. [facility] ([facility]) 28 each 10/04/19 25 2025 Active capsaicin (ZOSTRIX) 0.025 % creamIndications:C hronic bilateral low back pain without sciatica Apply topically 4 (four) times a day if needed for mild pain. 60 g 10/07/19 25 2025 Active buPROPion XL (WELLBUTRIN XL) 300 mg 24 hr tabletIndications: Post-traumatic stress disorder, acute,Bipolar 1 disorder (CMS/HCC V24, CMS/HCC V28) Take 1 tablet (300 mg total) by mouth 1 (one) time each day in the morning. Do not crush, chew, or split. 28 each 10/10/19 25 2025 Active traZODone (DESYREL) 50 mg tabletIndications: I need 11 refills. This is a re-order for a script that did not go through yesterday, for [place]. Please have these mailed to the [facility] by tomorrow. Attn: Carole Aquino LPN Take 0.5 tablets (25 mg total) by mouth 3 (three) times a day with meals for 28 days. 42 each 10/10/19 25 2024 Active ondansetron ODT (ZOFRAN-ODT) 8 mg disintegrating tabletIndications: Nausea and vomiting in adult Dissolve 1 tablet (8 mg total) on top of the tongue every 8 (eight) hours if needed for nausea or vomiting for up to 7 days. 6 tablet 10/14/19 25 2024 Active gabapentin (NEURONTIN) 800 mg tabletIndications: neuropathic pain Take 1 tablet (800 mg total) by mouth 3 (three) times a day for 28 days. 3 TIMES DAILY 84 each 09/02/19 25 2024 Discontin ued(Reord er) OXcarbazepine (TRILEPTAL) 300 mg tabletIndications: Conversion disorder with attacks or seizures,Bipolar 1 disorder (CMS/HCC V24, CMS/HCC V28) Take 2 tablets (600 mg total) by mouth 2 (two) times a day for 28 days. 112 each 09/02/19 25 2024 Discontin ued(Reord er) QUEtiapine XR (SEROquel XR) 200 mg 24 hr tabletIndications: Bipolar 1 disorder (CMS/HCC V24, CMS/HCC V28) Take 2 tablets (400 mg total) by mouth at bedtime for 28 days. 56 each 09/02/19 25 2024 Discontin ued(Disco ntinued by another clinician ) apixaban (ELIQUIS) 5 mg tabletIndications: Sinus tachycardia Take 1 tablet (5 mg total) by mouth 2 (two) times a day for 28 days. 56 each 09/02/19 25 2024 Discontin ued(Reord er) aspirin 81 mg chewable tabletIndications: Congestive heart failure, unspecified HF chronicity, unspecified heart failure type (CMS/HCC V24, CMS/HCC V28),Sinus tachycardia,Cerebr ovascular accident (CVA), unspecified mechanism (CMS/HCC V24, CMS/HCC V28) Chew 1 tablet (81 mg total) 1 (one) time each day for 28 days. 1 tab chewed in the mouth daily 28 each 09/02/19 25 2024 Discontin ued(Reord er) metoprolol succinate (TOPROL-XL) 25 mg 24 hr tabletIndications: Sinus tachycardia Take 1 tablet (25 mg total) by mouth 1 (one) time each day for 28 days. Do not crush or chew. 56 tablet 09/02/19 25 2024 Discontin ued(Reord er) melatonin 3 mg tabletIndications: Insomnia, unspecified type Take 1 tablet (3 mg total) by mouth at bedtime for 28 days. 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 1 patch onto the skin every 24 hours, in a.m. 28 patch 09/02/19 25 2024 Discontin ued(Reord er) potassium chloride (MICRO-K) 10 mEq CR capsuleIndications :Hypertensive heart disease with congestive heart failure, unspecified heart failure type (CMS/HCC V24, CMS/HCC V28) Take 1 capsule (10 mEq total) by mouth 1 (one) time each day for 28 days. 1 tab by mouth 2 times per day 28 each 09/02/19 25 2024 Discontin ued(Reord er) methenamine hippurate (HIPREX) 1 gram tabletIndications: Recurrent UTI Take 1 tablet (1 g total) by mouth 1 (one) time each day in the morning for 28 days. 1 tab by mouth every morning 28 each 09/02/19 25 2024 Discontin ued(Reord er) FLUoxetine (PROzac) 20 mg capsuleIndications :Bipolar 1 disorder ([facility] V24, [facility] V28) Take 1 capsule (20 mg total) by mouth 1 (one) time each day for 28 days. 28 capsule 09/02/19 25 2024 Discontin ued(Reord er) ferrous sulfate 325 mg (65 mg iron) EC tabletIndications: Iron deficiency anemia, unspecified iron deficiency anemia type Take 1 tablet (325 mg total) by mouth 1 (one) time each day with breakfast for 28 days. 1 tab by mouth every other day 28 each 09/02/19 25 2024 bumetanide (BUMEX) 2 mg tabletIndications: Congestive heart failure, unspecified HF chronicity, unspecified heart failure type ([facility] V24, [facility] V28) Take 1 tablet (2 mg total) by mouth 1 (one) time each day in the morning for 28 days. 1 tab QAM 28 each 09/02/192024 Discontin ued(Reord er) atorvastatin (LIPITOR) 40 mg tabletIndications: Cerebrovascular accident (CVA), unspecified mechanism ([facility] V24, [facility] V28) Take 1 tablet (40 mg total) by mouth at bedtime for 28 days. 28 each 09/02/19 25 2024 Discontin ued(Reord er) acetaminophen (TYLENOL) 500 mg tabletIndications: Osteoarthritis of both ankles, unspecified osteoarthritis type Take 1 tablet (500 mg total) by mouth 3 (three) times a day before meals for 28 days. 30 tablet 09/02/19 25 2024 metFORMIN (GLUCOPHAGE) 500 mg tabletIndications: Type 2 diabetes mellitus with hypoglycemia without coma, without long-term current use of insulin ([facility] V24, [facility] V28) Take 1 tablet (500 mg total) by mouth 1 (one) time each day with breakfast for 28 days. 1 tab by mouth 1 time per day in the evening with meals 28 each 11 09/02/19 25 2024 Discontin ued(Reord er) traZODone (DESYREL) 50 mg tabletIndications: I need 11 refills. This is a re-order for a script that did not go through yesterday, for [place]. Please have these mailed to the [facility] by tomorrow. Attn: Carole Aquino LPN Take 0.5 tablets (25 mg total) by mouth 3 (three) times a day with meals for 28 days. 42 each 09/05/19 25 2024 Discontin ued(Reord er) LORazepam (ATIVAN) 1 mg tabletIndications: Bipolar 1 disorder ([facility] V24, [facility] V28),Depression with anxiety,Anxiety Take 1 tablet (1 mg total) by mouth 3 (three) times a day before meals for 49 doses. Max Daily Amount: 3 mg 49 each 09/05/19 25 2024 Discontin ued(Reord er) phenazopyridine (PYRIDIUM) 100 mg tabletIndications: Dysuria Take 1 tablet (100 mg total) by mouth 3 (three) times a day with meals for 3 days. 9 each 09/21/19 25 2024 cefpodoxime (VANTIN) 100 mg tabletIndications: Dysuria Take 1 tablet (100 mg total) by mouth 2 (two) times a day for 7 days. 14 tablet 09/21/19 25 2024 Discontin ued(Disco ntinued by another clinician ) clonazePAM (KlonoPIN) 1 mg tabletIndications: Anxiety,Bipolar 1 disorder ([facility] V24, [facility] V28) Take 1 tablet (1 mg total) by mouth 1 (one) time for 1 dose. Take 1 tab 1 hr prior to biopsy. May repeat x 1, for severe anxiety. Max Daily Amount: 2 mg 2 tablet 10/08/19 25 04/11/ 2025 Discontin ued(Disco ntinued by another clinician ) traZODone (DESYREL) 50 mg tabletIndications: I need 11 refills. This is a re-order for a script that did not go through yesterday, for [place]. Please have these mailed to the [facility] by tomorrow. Attn: Carole Aquino LPN Take 0.5 tablets (25 mg total) by mouth 3 (three) times a day with meals for 28 days. 42 each 10/04/19 25 2024 Discontin ued(Reord er) buPROPion XL (WELLBUTRIN XL) 300 mg 24 hr tabletIndications: Bipolar 1 disorder (CMS/HCC V24, CMS/HCC V28) Take 1 tablet (300 mg total) by mouth 1 (one) time each day in the morning. Do not crush, chew, or split. 28 each 10/04/19 25 2024 Discontin ued(Reord er) cefuroxime (CEFTIN) 250 mg tabletIndications: Acute cystitis without hematuria Take 1 tablet (250 mg total) by mouth 2 (two) times a day for 3 days. 6 each 10/04/19 25 2024 phenazopyridine (PYRIDIUM) 100 mg tabletIndications: Dysuria Take 1 tablet (100 mg total) by mouth 3 (three) times a day with meals for 5 days. 15 tablet 10/09/19 25 2024 cefpodoxime (VANTIN) 200 mg tabletIndications: Acute cystitis without hematuria Take 1 tablet (200 mg total) by mouth 2 (two) times a day for 5 days. 10 each 10/11/19 25 2024 Hospital, Clinic, or Other Facility Administered Medication Ordered Dose Route Frequency Start Date End Date Status methylPREDNISolone sodium succ (SOLU-Medrol) injection 125 mgIndications:Fibromy algia 125 mg IM Once 09/03/2024 10/03/2024 Discontinued Active Problems Problem Noted Date Diagnosed Date Dysuria 10/08/2024 Assessment & Plan (10/08/2024 1:54 PM EDT): Collect urine and send for urinalysis and culture. Participant finished antibiotic for UTI that ended last week. Starting Pyridium for symptoms. Mild dementia with mood dist urbance, unspecified dementia type [place] [place] [facility] [place]) 09/27/2024 Assessment & Plan (09/27/2024 6:42 PM EDT): Chronic condition; stable. Continue to monitor for progression. Continue to treat mood disorder. History of DVT (deep vein thrombosis) 09/27/2024 Assessment & Plan (09/27/2024 7:33 PM EDT): Chronic condition; continue oral anticoagulant. Impacted cerumen of right ear 09/27/2024 Assessment & Plan (09/27/2024 6:44 PM EDT): PAR will need to have this addressed in the near future. Being sent out today via EMS for suicidal ideation. Encounter for medication management 09/04/20242023 Assessment & Plan (09/27/2024 7:33 PM EDT): PAR needs further medication adjustment. Not safe to be home alone. EMS contacted. Assessment & Plan (09/04/2024 3:45 PM EDT): Almost 4 hours spent on getting short-fill and 28-day cycle, with Carole Aquino LPN who does home medication management. Her recent hospital d/c med list was checked and current meds updated. Urinary, incontinence, stress female 07/30/2024 Assessment & Plan (09/27/2024 7:05 PM EDT): Chronic condition; stable. Continue use of DME products. Tendonitis of left rotator cuff 07/30/2024 Assessment & Plan (09/27/2024 7:08 PM EDT): Chronic condition; continues to have limited ROM and pain of left shoulder. Does not use shoulder much. Has undergone PT in the past. Encouraged mild stretching exercises. Type 2 diabetes mellitus wit h hypoglycemia [place] [place], [facility] [place]) 07/30/2024 Assessment & Plan (10/07/2024 3:43 PM EDT): Chronic condition; no recent episodes of hypoglycemia. Continue to monitor blood sugars. Avoid skipping meals. Assessment & Plan (09/04/2024 3:45 PM EDT): [...] meals Osteoarthritis of feet, bilateral 07/30/2024 Overview (09/27/2024): Osteoarthritis, Bilateral Feet >>OVERVIEW FOR OSTEOARTHRITIS OF ANKLES, BILATERAL WRITTEN ON 07/30/2024 3:39 PM BY DAMIEN IBARRA Osteoarthritis, Bilateral Feet & Ankles Assessment & Plan (09/27/2024 7:09 PM EDT): >>ASSESSMENT AND PLAN FOR OSTEOARTHRITIS OF ANKLES, BILATERAL WRITTEN ON 09/12/2024 8:30 PM BY YARITZA LEVINE MD This is a chronic condition which does not need any current change in symptom management. Continue to monitor, and treat if needed. Orders: ? ? acetaminophen (TYLENOL) 500 mg tablet; Take 1 tablet (500 mg total) by mouth 3 (three) times a day before meals for 28 days. Assessment & Plan (09/27/2024 7:09 PM EDT): Chronic condition; intermittent pain. Continue APAP and proper shoe support. Hematuria, microscopic 07/30/2024 Assessment & Plan (09/27/2024 7:06 PM EDT): Chronic condition; stable. Urine cytology previosuly done was negative for malignant cells. Most likely due to oral anticoagulant use. Pain in back 07/30/2024 Assessment & Plan (09/27/2024 6:41 PM EDT): Most likely musculoskeletal pain. Encourage stretching exercises. Continues use of APAP as needed. Plantar fascial fibromatosis 07/30/2024 Assessment & Plan (09/27/2024 7:10 PM EDT): Chronic condition; stable. Intermittent pain. Treat as needed. Oral lesion 07/30/2024 Assessment & Plan (09/27/2024 7:02 PM EDT): PAR recently seen by dentist. Plan to to either return to dentist for removal of lesion or be referred to a Oral surgeon. Assessment & Plan (09/04/2024 3:45 PM EDT): No lesion palpated except normal size sublingual lymphatic tissue, left of lingual frenulum. Lower gum: edentulous. No cervical LAD. DDD (degenerative disc disease), cervical 2024 Assessment & Plan (09/27/2024 7:11 PM EDT): Chronic condition; labile. Continues with intermittent pain. Continue APAP as prescribed. Encourage PAR to resume stretching exercises. Multiple nodules of lung 07/30/2024 Assessment & Plan (09/27/2024 6:47 PM EDT): Chronic condition; continue to monitor with year CT chest. Encourage smoking cessation. Blood in stool 07/30/2024 Assessment & Plan (10/08/2024 1:46 PM EDT): Refer again to gastroenterology. Possible need for upper endoscopy and colonoscopy. Assessment & Plan (09/27/2024 7:25 PM EDT): May be related to oral anticoagulation. Referral to GI made for possible colonoscopy. May have missed appt in [id number]. Will attempt to obtain progress note; if appt missed, will make another referral. Dysphagia 07/30/2024 Assessment & Plan (09/27/2024 7:02 PM EDT): Chronic condition; stable. No acute concerns at this time. Previously seen by speech therapy. Post-traumatic stress disorder, acute 07/30/2024 Assessment & Plan (09/27/2024 7:27 PM EDT): Condition not improving. PAR isolating self. Not attending day center. Has not been meeting with therapist. Had a brief telephone visit yesterday. Assessment & Plan (09/12/2024 8:30 PM EDT): This condition is part of patient's history. Continue to monitor. Orders: prazosin (MINIPRESS) 1 mg capsule; Take 2 capsules (2 mg total) by mouth at bedtime for 28 days. 1 cap by mouth every day at bedtime Iron deficiency anemia 07/30/2024 Assessment & Plan (09/27/2024 7:13 PM EDT): Chronic condition. Continue to monitor H/H and iron levels. Continue iron supplementation. Assessment & Plan (09/12/2024 8:30 PM EDT): [...] mouth every other day Abnormal mammogram 07/30/2024 Overview (09/27/2024): >>OVERVIEW FOR MASS OF RIGHT BREAST WRITTEN ON 07/30/2024 3:52 PM BY DAMIEN IBARRA Nodule, Right Breast Assessment & Plan (09/27/2024 7:31 PM EDT): Chronic condition; plan to for repeat u/s of right breast. Place new order. Other specified disorders of bone density and structure, multiple sites 07/30/2024 Overview (07/30/2024): DEXA: Z13.820, M85.89 Assessment & Plan (09/27/2024 7:12 PM EDT): Chronic condition; goal to maintain Vitamin D level > 30. Encourage weight bearing exercises. Paroxysmal atrial fibrillation ([facility] V24, [facility] V28) 01/29/2024 Assessment & Plan (09/27/2024 6:49 PM EDT): Chronic condition; stable. Continue beta donna and oral anticoagulant. Monitor for s/s of acute bleeding. Assessment & Plan (09/27/2024 6:50 PM EDT): >>ASSESSMENT AND PLAN FOR PAROXYSMAL ATRIAL FIBRILLATION ([facility]) WRITTEN ON 09/12/2024 8:30 PM BY YARITZA LEVINE MD Patient is currently asymptomatic and stable. She is anticoagulated and rate controlled. Continue current management. Monitor and change treatment as appropriate. >>ASSESSMENT AND PLAN FOR SINUS TACHYCARDIA WRITTEN ON 09/12/2024 8:30 PM BY YARITZA LEVINE MD This condition is part of patient's history. Continue to monitor. Orders: ? ? apixaban (ELIQUIS) 5 mg tablet; Take 1 tablet (5 mg total) by mouth 2 (two) times a day for 28 days. ? ? aspirin 81 mg chewable tablet; Chew 1 tablet (81 mg total) 1 (one) time each day for 28 days. 1 tab chewed in the mouth daily ? ? metoprolol succinate (TOPROL-XL) 25 mg 24 hr tablet; Take 1 tablet (25 mg total) by mouth 1 (one) time each day for 28 days. Do not crush or chew. Congestive heart failure ([facility] V24, [facility] V 28) 01/29/2024 Overview (09/27/2024): CHF, Chronic Diastolic >>OVERVIEW FOR HYPERTENSIVE HEART DISEASE WITH CONGESTIVE HEART FAILURE ([facility]) WRITTEN ON 07/30/2024 3:40 PM BY DAMIEN IBARRA Hypertension with CHF Assessment & Plan (09/27/2024 6:52 PM EDT): Chronic condition; stable. Euvolemic. Admits to non compliance with diuretic. Educated on the importance of medication compliance. Monitor. Assessment & Plan (09/27/2024 6:53 PM EDT): >>ASSESSMENT AND PLAN FOR CONGESTIVE HEART FAILURE ([facility]) WRITTEN ON 09/12/2024 8:30 PM BY YARITZA LEVINE MD Patient is currently asymptomatic and stable. Continue current management. Monitor and treat as appropriate. Orders: ? ? aspirin 81 mg chewable tablet; Chew 1 tablet (81 mg total) 1 (one) time each day for 28 days. 1 tab chewed in the mouth daily ? ? bumetanide (BUMEX) 2 mg tablet; Take 1 tablet (2 mg total) by mouth 1 (one) time each day in the morning for 28 days. 1 tab QAM >>ASSESSMENT AND PLAN FOR HYPERTENSIVE HEART DISEASE WITH CONGESTIVE HEART FAILURE ([facility]) WRITTEN ON 09/12/2024 8:30 PM BY YARITZA LEVINE MD Patient is currently asymptomatic and stable. Continue current management. Monitor and treat as appropriate. Orders: ? ? potassium chloride (MICRO-K) 10 mEq CR capsule; Take 1 capsule (10 mEq total) by mouth 1 (one) time each day for 28 days. 1 tab by mouth 2 times per day Hypertensive disorder 01/29/2024 Overview (04/17/2024): Last Assessment & Plan: Continue metoprolol with holding parameters. Assessment & Plan (09/27/2024 6:48 PM EDT): Chronic condition; stable. BP at goal. Continue daily metoprolol. Hyperlipidemia 01/29/2024 Overview (04/17/2024): Last Assessment & Plan: Continue atorvastatin. Assessment & Plan (10/07/2024 3:44 PM EDT): Chronic condition; no on statin therapy. Continue to encourage following a low cholesterol diet. Monitor. Assessment & Plan (09/12/2024 8:30 PM EDT): This is a chronic condition which does not need any current change in symptom management. Continue to monitor, and treat if needed. Severe obesity (CMS/HCC V24, CMS/HCC V28) 2023 Overview (07/30/2024): Obesity, Severe Assessment & Plan (09/27/2024 6:53 PM EDT): Chronic condition; weight improving. BMI down to 39. Continue to monitor. Edentulous 01/29/2024 Assessment & Plan (09/27/2024 6:54 PM EDT): Does not own dentures. Denies any acute problems chewing or swallowing. Constipation 01/29/2024 Assessment & Plan (09/27/2024 6:55 PM EDT): Chronic condition; no current concerns. Monitor and treat as needed. Leukocytosis (leucocytosis) 01/29/2024 Assessment & Plan (09/27/2024 7:13 PM EDT): Chronic condition; stable. Continue to monitor. Recurrent UTI 01/29/2024 Assessment & Plan (09/27/2024 7:04 PM EDT): Currently with UTI symptoms. Was started on empiric antibiotic last week, but still with dysuria. PAR needs U/a and urine culture. Being send to [facility] ED for suicidal ideation. Assessment & Plan (09/12/2024 8:30 PM EDT): Patient is currently asymptomatic and stable. Continue current management. Monitor and treat as appropriate. Orders: methenamine hippurate (HIPREX) 1 gram tablet; Take 1 tablet (1 g total) by mouth 1 (one) time each day in the morning for 28 days. 1 tab by mouth every morning Atrophic vaginitis 01/29/2024 Assessment & Plan (09/27/2024 7:04 PM EDT): Chronic condition; continue use of estrace cream as prescribed. Migraine 01/29/2024 Assessment & Plan (09/27/2024 6:37 PM EDT): Chronic condition; stable. Continue to monitor and treat as needed. Assessment & Plan (09/04/2024 3:45 PM EDT): Requested 'the shots' which worked for her about 6 weeks ago. Bipolar 1 disorder ([facility] V24, [facility] V28) Overview (04/17/2024): Last Assessment & Plan: Continue home medication. Assessment & Plan (10/08/2024 1:47 PM EDT): Chronic condition. Continue current medications. Continue intensive outpatient program on Sunday. Follow-up with psychiatry as well. Assessment & Plan (09/27/2024 7:15 PM EDT): Chronic condition; unstable. Very depressed with sucidial ideation. May need meds adjusted. EMS called to take PAR to [facility]. Assessment & Plan (09/04/2024 3:45 PM EDT): [...] 28 days. Anxiety 01/29/2024 Assessment & Plan (09/27/2024 7:16 PM EDT): Chronic condition; no well controlled. On Lorazepam TID. Needs psychiatric evaluation. EMS contacted due to suicidal ideations. Assessment & Plan (09/12/2024 8:30 PM EDT): This is a chronic condition which does not need any current change in symptom management. Continue to monitor, and treat if needed. Orders: LORazepam (ATIVAN) 1 mg tablet; Take 1 tablet (1 mg total) by mouth 3 (three) times a day before meals for 28 days. Max Daily Amount: 3 mg Fibromyalgia 01/29/2024 Assessment & Plan (09/27/2024 6:38 PM EDT): Chronic condition; labile. PAR to continue gabapentin 3 times a day. Continue supportive measures. Assessment & Plan (09/03/2024 3:54 PM EDT): Orders: methylPREDNISolone sodium succ (SOLU-Medrol) injection 125 mg ketorolac 30 mg/mL injection; Inject 1 mL (30 mg total) into the shoulder, thigh, or buttocks 1 (one) time for 1 dose. Dupuytren's contracture of right hand 01/29/2024 Assessment & Plan (09/27/2024 7:07 PM EDT): Chronic condition; stable. Unchanged. Continue to monitor for progression and refer to hand specialist when indicated. Trigger finger 01/29/2024 Overview (07/30/2024): Trigger Finger/Flexor Tendonitis, Third Digit, Right Hand Assessment & Plan (09/27/2024 7:07 PM EDT): Chronic condition; intermittently bothersome. Not of much concern at this time. Monitor and treat as needed. Hearing loss 01/29/2024 Assessment & Plan (09/27/2024 6:38 PM EDT): PAR with chronic condition; needs follow up with audiology. Needs to have cerumen removed from right ear. Chronic respiratory failure with hypoxia (CMS/HCC V24, CMS/HCC V28) 01/29/2024 Assessment & Plan (09/27/2024 6:46 PM EDT): Chronic condition; stable. Continue on O2 at 3 l/min via NC. Monitor. Suicidal ideations 01/29/2024 Assessment & Plan (09/27/2024 7:17 PM EDT): Having active toughts and plan. EMS called and PAR taken to [facility]. Assessment & Plan (09/04/2024 3:45 PM EDT): None present currently; will be increasing seroquel dose if needed. Conversion disorder with attacks or seizures 11/2023 Assessment & Plan (09/27/2024 6:39 PM EDT): Chronic condition; stable. No acute episodes. Continue current medication. Assessment & Plan (09/12/2024 8:30 PM EDT): Patient is currently asymptomatic and stable. Continue current management. Monitor and treat as appropriate. Orders: OXcarbazepine (TRILEPTAL) 300 mg tablet; Take 2 tablets (600 mg total) by mouth 2 (two) times a day for 28 days. Gastroesophageal reflux disease without esophagi tis 01/29/2024 Assessment & Plan (09/27/2024 7:36 PM EDT): >>ASSESSMENT AND PLAN FOR SCHATZKI'S RING WRITTEN ON 09/27/2024 6:58 PM BY WALE PIMENTEL NP Chronic condition; stable. Avoid trigger foods. Vocal cord dysfunction 10/28/2023 Assessment & Plan (09/27/2024 6:46 PM EDT): Chronic condition; improved. Referred in the past to speech therapy. Complex regional pain syndrome I 02/05/2023 Overview (04/17/2024): Last Assessment & Plan: Per Ortho: CRPS, Trigger secondary to MCP hyperextension RT On Prednisone 20 mg daily x 30 days until 02/10 Assessment & Plan (09/27/2024 6:43 PM EDT): Chronic condition; stable. Continue gabapentin and APAP as prescribed. Assessment & Plan (09/12/2024 8:30 PM EDT): [...] perfusion scan 2021, echo done 2022 @ [facility] Assessment & Plan (09/27/2024 7:16 PM EDT): Chronic condition; stable. Continues use of rollator during ambulation. Continue fall precautions. Tobacco use disorder 11/23/2022 Overview (04/17/2024): Last Assessment & Plan: Recidivism now smoking half pack per day. Approximately 5 minutes of dedicated tobacco cessation counseling provided. Patient will use Nicotrol nicotine replacement therapy but declines use of alternative nicotine replacement modalities and Chantix. Assessment & Plan (09/27/2024 7:14 PM EDT): Chronic condition; Reports cutting back on smoking and contemplating on quitting. Unclear if still using nicotine patches. Assessment & Plan (09/12/2024 8:30 PM EDT): [...] sleep apnea) 06/28/2021 Overview (04/17/2024): Followed at [facility] sleep program. Last Assessment & Plan: Congratulated on ongoing compliance Assessment & Plan (09/27/2024 6:44 PM EDT): Chronic condition; stable. Continue to encourage use of CPAP. Chronic obstructive pulmonar y disease ([facility] V24, [facility] V28) 12/17/2018 Overview (04/17/2024): PFT 08/05/2021: FEV1 1.56 L or 63% predicted Last Assessment & Plan: Continue the inhalers. Smoking cessation encouraged Nicotine patch as well as nicotine gum. Assessment & Plan (09/27/2024 6:45 PM EDT): Chronic condition; stable. Continues to smoke. Wants to quit on her own. Unclear if still using Nicotine patches. Resolved Problems Problem Noted Date Diagnosed Date Resolved Date Smokes cigarettes 07/30/2024 09/27/2024 Overview (07/30/2024): Smoker, Cigarettes, Current Abdominal pain 07/30/2024 09/27/2024 Incontinent of urine 01/29/2024 025 COPD with acute exacerbation ([facility] V24, [facility] V28) 05/04/2021 09/27/2024 Overview (04/17/2024): Last Assessment & Plan: Improving [...] Plan (09/04/2024 3:45 PM EDT): Quiescent currently. Encounters Date Type Department Care Team Description 10/16/2024 7:30 AM EDT P[facility] Home Care / [facility] Home Visit [facility] [address] [place] [phone] Cheryle Pryor 10/16/2024 [facility] [address] [place] [phone] Wale Pimentel NP Fall, initial encounter (Primary Dx) 10/15/2024 7:00 AM EDT PACE Home Care / PACE Home Visit [facility] [address] [place] [phone] Cheryle Pryor 10/14/2024 7:30 AM EDT PACE Home Care / PACE Home Visit [facility] [address] [place] [phone] Cheryle Pryor 10/14/2024 Community Care Management [facility]nn [facility] [place] [facility] [address] [phone] Carole Aquino LPN 10/13/2024 11:00 AM EDT Clinical Support [facility] [address] [place] [phone] Sandy Keith, LOUISE Arrived 10/13/2024 7:30 AM EDT P[facility] Home Care / PACE Home Visit [facility] [address] [place] [phone] Cheryle Pryor 10/11/2024 7:00 AM EDT PACE Home Care / PACE Home Visit [facility] [address] [place] [phone] Cheryle Pryor 10/10/2024 6:30 AM EDT P[facility] Home Care / PACE Home Visit [facility] [address] [place] [phone] Shawna Lebron 10/09/2024 7:30 AM EDT P[facility] Home Care / PACE Home Visit [facility] [address] [place] [phone] Cheryle Pryor 10/08/2024 10:30 AM EDT Office Visit [facility] [address] [place] [phone] Wale Pimentel, TAYA Bipolar 1 disorder (CMS/HCC V24, CMS/HCC V28) (Primary Dx); Dysuria; Blood in stool 10/08/2024 7:30 AM EDT P[facility] Home Care / PACE Home Visit [facility] [address] [place] [phone] Shawna Lebron 10/07/2024 11:00 AM EDT PACE Home Care / PACE Home Visit [facility] [address] [place] [phone] Cheryle Pryor 10/07/2024 7:30 AM EDT PACE Home Care / PACE Home Visit [facility] [address] [place] [phone] Cheryle Pryor 10/06/2024 Telephone [facility] [address] [place] [phone] Wale Pimentel, TAYA 10/01/2024 Telephone [facility] [address] [place] [phone] Wale Pimentel NP 09/30/2024 Plan of Care Documentation [address] [phone] 09/26/2024 12:30 PM EDT PACE Assessment [address] [phone] Naila Kinney RN Adult general medical examination (Primary Dx) 09/26/2024 12:00 PM EDT PACE Assessment [address] [phone] Wale Pimentel NP Mild dementia with mood disturbance, unspecified dementia type ([facility] V24, [facility] V28) (Primary Dx); History of DVT (deep vein thrombosis); Chronic respiratory failure with hypoxia ([facility] V24, [facility] V28); Severe obesity ([facility] V24, [facility] V28); Abnormal mammogram; Migraine without status migrainosus, not intractable, unspecified migraine type; Fibromyalgia; Bilateral hearing loss, unspecified hearing loss type; Conversion disorder with attacks or seizures; Chronic bilateral low back pain without sciatica; Complex regional pain syndrome type 1 of upper extremity, unspecified laterality; Impacted cerumen of right ear; JOSEPH (obstructive sleep apnea); Chronic obstructive pulmonary disease, unspecified COPD type ([facility] V24, [facility] V28); Vocal cord dysfunction; Multiple nodules of lung; Primary hypertension; Paroxysmal atrial fibrillation ([facility] V24, [facility] V28); Chronic diastolic congestive heart failure ([facility]24, [facility] V28); Edentulous; Constipation, unspecified constipation type; Gastroesophageal reflux disease without esophagitis; Oral lesion; Dysphagia, unspecified type; Recurrent UTI; Atrophic vaginitis; Urinary, incontinence, stress female; Hematuria, microscopic; Dupuytren's contracture of right hand; Trigger ring finger of right hand; Tendonitis of left rotator cuff; Primary osteoarthritis of both feet; Plantar fascial fibromatosis; DDD (degenerative disc disease), cervical; Other specified disorders of bone density and structure, multiple sites; Leukocytosis, unspecified type; Other iron deficiency anemia; Tobacco use disorder; Bipolar 1 disorder ([facility] V24, [facility] V28); Gait instability; Anxiety; Suicidal ideations; Blood in stool; Post-traumatic stress disorder, acute; Encounter for medication management; Type 2 diabetes mellitus with hypoglycemia without coma, without long-term current use of insulin (CMS/HCC V24, [facility] V28); Moderate mixed hyperlipidemia not requiring statin therapy 09/26/2024 10:30 AM EDT P[facility] Home Care / PACE Home Visit [facility] [address] [place] [phone] Jhoana Grijalva 09/26/2024 [facility] Ad[facility] [address] [place] [phone] Jennifer Pacheco, RN Suicidal ideation (Primary Dx) 09/25/2024 Telephone [facility] Social Work [address] [place] [phone] Beverly Griffin LCSW 09/19/2024 10:00 AM EDT PACE Home Care / PACE Home Visit [facility] [address] [place] [phone] Jhoana Grijalva 09/17/2024 10:00 AM EDT PACE External Visit Kaitlynn NICOLE [facility] [address] [place] [phone] Type 2 diabetes mellitus with hypoglycemia without coma, without long-term current use of insulin (CMS/HCC V24, [facility] V28); Edentulous 09/12/2024 10:00 AM EDT PACE Home Care / PACE Home Visit [facility] [address] [place] [phone] Jhoana Grijalva 09/10/2024 Telephone [facility] Social Work [address] [place] [phone] Beverly Griffin LCSW 09/09/2024 10:00 AM EDT PACE Home Care / PACE Home Visit [facility] [address] [place] [phone] Shawna Lebron 09/08/2024 11:00 AM EDT Clinical Support [facility] [address] [phone] Sandy Keith RN 09/05/2024 10:00 AM EDT P[facility] [address] [place] [phone] Jhoana Grijalva 09/05/2024 Telephone [facility] Social Work [address] [place] [phone] Mariah Adams 09/03/2024 1:00 PM EDT PACE Assessment [facility] Nutrition Services [address] [place] [phone] Debi Nagy, ROWENA Type 2 diabetes mellitus with hypoglycemia without coma, without long-term current use of insulin ([facility] V24, [facility] V28) (Primary Dx) 09/03/2024 12:00 PM EDT Office Visit [address] [phone] Yaritza Levine MD Type 2 diabetes mellitus with hypoglycemia without coma, without long-term current use of insulin ([facility] V24, [facility] V28) (Primary Dx); Oral lesion; Ill-fitting dentures; Chronic migraine with aura without status migrainosus, not intractable; Fibromyalgia; Bipolar 1 disorder (CMS/HCC V24, CMS/HCC V28); COPD with acute exacerbation (CMS/HCC V24, CMS/HCC V28); Suicidal ideations; Depression with anxiety; Encounter for medication management 09/02/2024 10:00 AM EDT [facility] [address] [place] [phone] Shawna Lebron 09/01/2024 1:30 PM EDT Office Visit [facility] PACE [address] [phone] Yaritza Levine MD Complex regional pain syndrome type 1 of both lower extremities (Primary Dx); Paroxysmal atrial fibrillation ([facility] V24, CMS/HCC V28); Hypertensive heart disease with congestive heart failure, unspecified heart failure type ([facility], [facility] V28); Conversion disorder with attacks or seizures; Congestive heart failure, unspecified HF chronicity, unspecified heart failure type ([facility] V24, [facility] V28); Bipolar 1 disorder ([facility] V24, [facility] V28); Recurrent UTI; Osteoarthritis of both ankles, unspecified osteoarthritis type; Other iron deficiency anemia; Hyperlipidemia, unspecified hyperlipidemia type; Anxiety; Post-traumatic stress disorder, acute; Tobacco use disorder; Type 2 diabetes mellitus with hypoglycemia without coma, without long-term current use of insulin ([facility] V24, [facility] V28); Depression with anxiety; Sinus tachycardia; Cerebrovascular accident (CVA), unspecified mechanism ([facility] V24, [facility] V28); Insomnia, unspecified type; Iron deficiency anemia, unspecified iron deficiency anemia type 09/01/2024 10:45 AM EDT Evaluation [facility] Physical Therapy [address] [place] [phone] Arnav Thomas, PT 08/29/2024 10:00 AM EST P[facility] Home Care / PACE Home Visit [facility] [address] [place] [phone] Jhoana Grijalva 08/26/2024 PACE Admissions [address] [phone] Jennifer Pacheco, RN Suicidal ideation (Primary Dx) 08/26/2024 Telephone [facility] [address] [place] [phone] Jennifer Pacheco, RN 07/23/2024 Lab Requisition [facility] - Main Lab [address] [facility] [place] [phone] Elvira Damon MD Hematuria, unspecified from Last 3 Months Immunizations Name Administration [...] of falling History of CVA (cerebrovascular accident) Abdominal pain 07/30/2024 Social History Tobacco Use Types Packs/Day Years [...] EDT Inhaled Oxygen Concentration - - Weight 109 kg (239 lb 6.4 oz) 10/08/2024 1:43 PM EDT Height 165.1 cm (5' 5 ) 09/03/2024 1:00 PM EDT Body Mass Index 39.84 09/03/2024 1:00 PM EDT Plan of Treatment Upcoming Encounters Date Type Department Care Team (Late st Contact Info) Description 10/17/2024 7:30 AM EDT P[facility] Home Care / PACE Home Visit [facility] [address] [place] [phone] Shawna Lebron 10/17/2024 9:00 AM EDT Consult [facility] [address] [place] [phone] 10/18/2024 7:30 AM EDT PACE Home Care / PACE Home Visit [facility] [address] [place] [phone] Jhoana Grijalva 10/19/2024 7:30 AM EDT PACE Home Care / PACE Home Visit [facility] [address] [place] [phone] Jhoana Grijalva 10/20/2024 7:30 AM EDT PACE Home Care / PACE Home Visit [facility] [address] [place] [phone] Cheryle Pryor 10/20/2024 9:00 AM EDT P[facility] Attendance/Day Center [facility] [address] [place] [phone] 10/20/2024 9:00 AM EDT Consult [facility] [address] [place] [phone] 10/21/2024 7:30 AM EDT PACE Home Care / PACE Home Visit [facility] [address] [place] [phone] Cheryle Pryor 10/21/2024 9:00 AM EDT Consult [facility] [address] [place] [phone] 10/21/2024 10:30 AM EDT P[facility] Home Care / PACE Home Visit [facility] [address] [place] [phone] Cheryle Pryor 10/22/2024 7:30 AM EDT PACE Home Care / PACE Home Visit [facility] [address] [place] [phone] Shawna Lebron 10/22/2024 9:00 AM EDT P[facility] Attendance/Day Center [facility] [address] [place] [phone] 10/22/2024 9:00 AM EDT Consult [facility] [address] [place] [phone] 10/23/2024 7:30 AM EDT PACE Home Care / P[facility] Home Visit [facility] [address] [place] [phone] Cheryle Pryor 10/23/2024 9:00 AM EDT Consult [facility] [address] [place] [phone] 10/24/2024 7:30 AM EDT P[facility] Home Care / [facility] Home Visit [facility] [address] [place] [phone] Shawna Lebron 10/24/2024 9:00 AM EDT Consult [facility] [address] [place] [phone] 10/25/2024 7:30 AM EDT P[facility] Home Care / [facility] Home [facility] [address] [place] [phone] Cheryle Pryor 10/26/2024 7:15 AM EDT PACE Home Care / PACE Home Visit [facility] [address] [place] [phone] Cheryel Pryor 10/27/2024 7:30 AM EDT PACE Home Care / PACE Home Visit [facility] [address] [place] [phone] Cheryle Pryor 10/27/2024 9:00 AM EDT P[facility] Attendance/Day [facility] [address] [place] [phone] 10/28/2024 7:30 AM EDT PACE Home Care / PACE Home Visit [facility] [address] [place] [phone] Cheryle Pryor 10/28/2024 10:30 AM EDT PACE Home Care / PACE Home Visit [facility] [address] [place] [phone] Cheryle Pryor 10/29/2024 7:30 AM EDT PACE Home Care / PACE Home Visit [facility] [address] [place] [phone] Shawna Lebron 10/29/2024 9:00 AM EDT [facility] Attendance/[facility] [address] [place] [phone] 10/30/2024 7:30 AM EDT PACE Home Care / PACE Home Visit [facility] [address] [place] [phone] Cheryle Pryor 10/31/2024 7:30 AM EDT PACE Home Care / PACE Home Visit [facility] [address] [place] [phone] Shawna Lebron 10/31/2024 10:30 AM EDT P[facility] Home Care / [facility] [address] [place] [phone] Jhoana Grijalva 11/01/2024 7:30 AM EDT PACE Home Care / PACE Home Visit [facility] [address] [place] [phone] Jhoana Grijalva 11/02/2024 7:30 AM EDT PACE Home Care / P[facility] Home Visit [facility] [address] [place] [phone] Jhoana Grijalva 11/03/2024 7:30 AM EDT PACE Home Care / P[facility] Home Visit [facility] [address] [place] [phone] Cheryle Pryor 11/03/2024 9:00 AM EDT [facility] Attendance/Day Center [facility] [address] [place] [phone] 11/04/2024 7:30 AM EDT PACE Home Care / P[facility] Home Visit [facility] [address] [place] [phone] Cheryle Pryor 11/04/2024 10:30 AM EDT PACE Home Care / P[facility] Home Visit [facility] [address] [place] [phone] Cheryle Pryor 11/05/2024 7:30 AM EDT P[facility] Home Care / [facility] [address] [place] [phone] Shawna Lebron 11/05/2024 9:00 AM EDT [facility] [place] [facility] [address] [place] [phone] 11/06/2024 7:30 AM EDT PACE Home Care / PACE Home Visit [facility] [address] [place] [phone] Cheryle Pryor 11/06/2024 10:00 AM EDT Clinical Support [facility] [place] [address] [place] [address] 11/07/2024 7:30 AM EDT PACE Home Care / [facility] Home Visit [facility] [place] [facility] [address] [place] [phone] Shawna Lebron 11/07/2024 10:30 AM EDT PACE Home Care / [facility] Home [facility] [place] [facility] [address] [place] [phone] Jhoana Grijalva 11/08/2024 7:30 AM EDT PACE Home Care / [facility] Home Visit [facility] [place] [facility] [address] [place] [phone] Cheryle Pryor 11/09/2024 7:30 AM EDT PACE Home Care / [facility] Home Visit [facility] [place] [facility] [address] [place] [phone] Cheryle Pryor 11/10/2024 7:30 AM EDT PACE Home Care / [facility] Home Visit [facility] [place] [facility] [address] [place] [phone] Cheryle Pryor 11/10/2024 9:00 AM EDT [facility] Att[facility] [place] [facility] [address] [place] [phone] 11/10/2024 9:45 AM EDT Office Visit [facility] [address] [phone] Gemini Simmons MD [address] [address] 11/11/2024 7:30 AM EDT [facility] Home [facility] / [facility] [place] [facility] [address] [place] [address] Cheryle Pryor 11/11/2024 10:30 AM EDT P[facility] Home [facility] / [facility] [place] [facility] [address] [place] [phone] Cheryle Pryor 11/12/2024 7:30 AM EDT PACE Home Care / [facility] [place] [facility] [address] [place] [phone] Shawna Lebron 11/12/2024 9:00 AM EDT [facility] Att[facility] [place] [facility] [address] [place] [phone] 11/13/2024 7:30 AM EDT P[facility] Home [facility] / [facility] [place] [facility] [address] [place] [phone] Cheryle Pryor 11/14/2024 7:30 AM EDT PACE Home Care / [facility] Home Visit [facility] [place] [facility] [address] [place] [phone] Shawna Lebron 11/14/2024 10:30 AM EDT PACE Home Care / [facility] [place] [facility] [address] [place] [phone] Jhoana Grijalva 11/15/2024 7:30 AM EDT P[facility] Home Care / [facility] [place] [facility] [address] [place] [phone] hJoana Grijalva 11/16/2024 7:30 AM EDT [facility] Home [facility] / [facility] [place] [facility] [address] [place] [phone] Jhoana Grijalva 11/17/2024 7:30 AM EDT P[facility] Home [facility] / [facility] [place] [facility] [address] [place] [phone] Cheryle Pryor 11/17/2024 9:00 AM EDT [facility] [place] [facility] [address] [place] [phone] 11/18/2024 7:30 AM EDT P[facility] Home Care / [facility] [place] [facility] [address] [place] [phone] Cheryle Pryor 11/18/2024 10:30 AM EDT P[facility] Home Care / [facility] [place] [facility] [address] [place] [phone] Cheryle Pryor 11/19/2024 7:30 AM EDT P[facility] Home [facility] / [facility] [place] [facility] [address] [place] [phone] Shawna Lebron 11/19/2024 9:00 AM EDT [facility] [place] [facility] [address] [place] [phone] 11/20/2024 7:30 AM EDT P[facility] Home [facility] / [facility] [place] [facility] [address] [place] [phone] Cheryle Pryor 11/21/2024 7:30 AM EDT P[facility] Home [facility] / [facility] [place] [facility] [address] [place] [phone] Shawna Lebron 11/21/2024 10:30 AM EDT [facility] Home [facility] / [facility] [place] [facility] [address] [place] [phone] Jhoana Grijalva 11/22/2024 7:30 AM EDT PACE Home Care / [facility] Home [facility] [place] [facility] [address] [place] [address] Cheryle Pryor 11/23/2024 7:30 AM EDT PACE Home Care / [facility] Home [facility] [place] [facility] [address] [place] [address] Cheryle Pryor 11/24/2024 7:30 AM EDT PACE Home Care / [facility] Home Visit [facility] [place] [facility] [address] [place] [phone] Cheryle Pryor 11/24/2024 9:00 AM EDT [facility] [place] [facility] [place] [facility] [address] [place] [phone] 11/25/2024 7:30 AM EDT PACE Home Care / [facility] Home [facility] [place] [facility] [address] [place] [phone] Cheryle Pryor 11/25/2024 10:30 AM EDT PACE Home Care / [facility] Home [facility] [place] [facility] [address] [place] [phone] Cheryle Pryor 11/26/2024 7:30 AM EDT PACE Home Care / [facility] Home [facility] [place] [facility] [address] [place] [phone] Shawna Lebron 11/26/2024 9:00 AM EDT [facility] [place] [facility] [address] [place] [address] 11/27/2024 7:30 AM EDT PACE Home Care / [facility] Home Visit [facility] [place] [facility] [address] [place] [phone] Cheryle Pryor 11/28/2024 7:30 AM EDT P[facility] Home Care / [facility] [place] [facility] [address] [place] [address] Shawna Lebron 11/28/2024 10:30 AM EDT P[facility] Home [facility] / [facility] [address] [place] [phone] Jhoana Grijalva 11/29/2024 7:30 AM EDT P[facility] Home [facility] / [facility] [address] [place] [phone] Jhoana Grijalva 11/30/2024 7:30 AM EDT P[facility] Home [facility] / [facility] [address] [place] [phone] Jhoana Grijalva 12/01/2024 7:30 AM EDT P[facility] Home Care / [facility] [place] [facility] [address] [place] [phone] Cheryle Pryor 12/01/2024 9:00 AM EDT [facility] [facility] [place] [facility] [address] [place] [phone] 12/02/2024 7:30 AM EDT P[facility] Home Care / [facility] [place] [facility] [address] [place] [phone] Cheryle Pryor 12/03/2024 7:30 AM EDT P[facility] Home [facility] / [facility] [place] [facility] [address] [place] [phone] Shawna Lebron 12/03/2024 9:00 AM EDT [facility] [facility] [place] [facility] [address] [place] [phone] 12/04/2024 7:30 AM EDT P[facility] Home Care / [facility] [address] [place] [phone] Cheryle Pryor 12/05/2024 7:30 AM EDT P[facility] Home [facility] / [facility] [place] [facility] [address] [place] [phone] Shawna Lebron 12/05/2024 10:30 AM EDT P[facility] Home Care / [facility] [place] [facility] [address] [place] [address] Jhoana Grijalva 12/06/2024 7:30 AM EDT P[facility] Home [facility] / [facility] [place] [facility] [address] [place] [phone] Cheryle Pryor 12/07/2024 7:30 AM EDT [facility] Home [facility] / [facility] [place] [facility] [address] [place] [phone] Cheryle Pryor 12/08/2024 9:00 AM EDT [facility] [facility] [place] [facility] [address] [place] [phone] 12/10/2024 9:00 AM EDT [facility] [facility] [place] [facility] [address] [place] [phone] 12/15/2024 9:00 AM EDT [facility] [place] [facility] [address] [place] [phone] 12/17/2024 9:00 AM EDT [facility] [facility] [place] [facility] [address] [place] [phone] 12/22/2024 9:00 AM EDT [facility] [place] [facility] [address] [place] [phone] 12/24/2024 9:00 AM EDT [facility] [place] [facility] [address] [place] [address] 12/29/2024 9:00 AM EDT [facility] [place] [facility] [address] [place] [address] 12/31/2024 9:00 AM EDT [facility] [place] [facility] [address] [place] [address] 01/05/2025 9:00 AM EDT [facility] [place] [facility] [address] [place] [address] 01/07/2025 9:00 AM EDT [facility] [place] [facility] [address] [place] [address] 01/12/2025 9:00 AM EDT [facility] [place] [facility] [address] [place] [address] 01/14/2025 9:00 AM EDT [facility] [place] [facility] [address] [place] [phone] 01/19/2025 9:00 AM EDT [facility] [place] [facility] [address] [place] [phone] 01/21/2025 9:00 AM EDT [facility] [place] [facility] [address] [place] [address] 01/26/2025 9:00 AM EDT [facility] [place] [facility] [address] [place] [address] 01/28/2025 9:00 AM EDT [facility] [place] [facility] [address] [place] [address] 02/02/2025 9:00 AM EDT [facility] [place] [facility] [address] [place] [address] 02/04/2025 9:00 AM EDT [facility] [place] [facility] [address] [place] [address] 02/09/2025 9:00 AM EDT [facility] [place] [facility] [address] [place] [address] 02/11/2025 9:00 AM EDT [facility] [place] [facility] [address] [place] [phone] 02/16/2025 9:00 AM EDT [facility] Att[facility] [place] [facility] [address] [place] [phone] 02/18/2025 9:00 AM EDT [facility] [place] [facility] [address] [place] [phone] 02/23/2025 9:00 AM EDT [facility] [place] [facility] [address] [place] [phone] 02/25/2025 9:00 AM EDT [facility] [place] [facility] [address] [place] [phone] 03/02/2025 9:00 AM EDT [facility] [place] [facility] [address] [place] [phone] 03/04/2025 9:00 AM EDT [facility] [place] [facility] [address] [place] [phone] 03/09/2025 9:00 AM EDT [facility] [place] [facility] [address] [place] [phone] 03/11/2025 9:00 AM EDT [facility] Att[facility] [place] [facility] [address] [place] [address] 03/16/2025 9:00 AM EDT [facility] Att[facility] [place] [facility] [address] [place] [address] 03/18/2025 9:00 AM EDT [facility] [place] [facility] [address] [place] [address] 03/23/2025 9:00 AM EDT [facility] [place] [facility] [address] [place] [address] 03/25/2025 9:00 AM EDT [facility] [place] [facility] [facility] [address] [place] [address] 03/30/2025 9:00 AM EDT [facility] [place] [facility] [address] [place] [phone] 04/01/2025 9:00 AM EDT [facility] [place] [facility] [address] [place] [phone] 04/06/2025 9:00 AM EDT [facility] [place] [facility] [address] [place] [phone] 04/08/2025 9:00 AM EDT [facility] [place] [facility] [address] [place] [phone] 04/13/2025 9:00 AM EDT [facility] [place] [facility] [address] [place] [phone] 04/15/2025 9:00 AM EDT [facility] [place] [facility] [address] [place] [phone] 04/20/2025 9:00 AM EDT [facility] [place] [facility] [address] [place] [phone] 04/22/2025 9:00 AM EDT [facility] [place] [facility] [address] [place] [address] 04/27/2025 9:00 AM EST [facility] [place] [facility] [address] [place] [phone] 04/29/2025 9:00 AM EST [facility] [place] [facility] [address] [place] [phone] 05/04/2025 9:00 AM EST [facility] [place] [facility] [address] [place] [phone] 05/06/2025 9:00 AM EST [facility] [place] [facility] [address] [place] [phone] 05/11/2025 9:00 AM EST [facility] [place] [facility] [address] [place] [phone] 05/13/2025 9:00 AM EST [facility] [place] [facility] [address] [place] [phone] 05/18/2025 9:00 AM EST [facility] [place] [facility] [address] [place] [phone] 05/20/2025 9:00 AM EST [facility] [place] [facility] [address] [place] [phone] 05/25/2025 9:00 AM EST [facility] [place] [facility] [address] [place] [phone] 05/27/2025 9:00 AM EST [facility] [place] [facility] [address] [place] [address] 06/01/2025 9:00 AM EST [facility] [place] [facility] [address] [place] [address] 06/03/2025 9:00 AM EST [facility] [place] [facility] [address] [place] [address] 06/08/2025 9:00 AM EST [facility] [place] [facility] [address] [place] [address] 06/10/2025 9:00 AM EST [facility] [place] [facility] [address] [place] [address] 06/15/2025 9:00 AM EST [facility] [place] [facility] [address] [place] [address] 06/17/2025 9:00 AM EST [facility] [place] [facility] [address] [place] [address] 06/22/2025 9:00 AM EST [facility] [place] [facility] [address] [place] [phone] 06/24/2025 9:00 AM EST [facility] [place] [facility] [address] [place] [phone] 06/29/2025 9:00 AM EST [facility] [place] [facility] [address] [place] [address] 07/01/2025 9:00 AM EST [facility] [place] [facility] [address] [place] [address] 07/06/2025 9:00 AM EST [facility] [place] [facility] [address] [place] [address] 2025 9:00 AM EST [facility] [place] [facility] [address] [place] [address] 07/13/2025 9:00 AM EST [facility] [place] [facility] [address] [place] [address] 07/15/2025 9:00 AM EST [facility] [place] [facility] [address] [place] [phone] 07/20/2025 9:00 AM EST [facility] [address] [place] [address] 07/22/2025 9:00 AM EST [facility] [address] [place] [phone] 07/27/2025 9:00 AM EST [facility] [place] [facility] [address] [place] [phone] 07/29/2025 9:00 AM EST [facility] [place] [facility] [address] [place] [phone] 08/03/2025 9:00 AM EST [facility] [place] [facility] [address] [place] [phone] Health Maintenance Due Date Last Done Comments Diabetes: Annual Foot Exam 1972 Diabetes: Annual Retina Eye Exam 1972 Meningococcal B Vaccine (1 of 5 - Increased Risk) 1972 [...] 04/21/2017, Additional history exists Influenza Vaccine Completed 09/27/2024, , 03/21/2023, Additional history exists HPV Vaccines Aged Out [...] URINALYSIS WITH REFLEX MICROSCOPIC AND CULTURE Routine 10/08/2024 12:09 PM EDT Recurrent UTI CULTURE URINE Routine 10/08/2024 12:09 PM EDT Recurrent UTI TISSUE EXAM Routine 07/22/2024 Hematuria, unspecified ANNUAL BMP BLOOD TEST Routine 06/04/2024 SHAHRIAR SCREENING DIGITAL Routine 03/26/2024 3:43 PM EDT Encounter for screening mammogram for malignant neoplasm of breast HEMOGLOBIN A1C Routine 03/17/2024 LIPID PANEL Routine 09/26/2023 from Last 3 Months or Most Recently Relevant to Health Maintenance Results * (ABNORMAL) Urinalysis with reflex microscopic and culture (10/08/2024 12:09 PM EDT) Specific [place] Urine 1.028 1.003 - 1.030 LAB URINALYSIS - AUTOMATED METHOD 10/08/2024 7:41 PM [facility] pH, Urine 6.5 5.0 - 8.0 pH LAB URINALYSIS - AUTOMATED METHOD 10/08/2024 7:41 PM [facility] Leukocytes, Urine Moderate(A) Negative LAB URINALYSIS - AUTOMATED METHOD 10/08/2024 7:41 PM [facility] Nitrite, Urine Positive(A) Negative LAB URINALYSIS - AUTOMATED METHOD 10/08/2024 7:41 PM [facility] Protein, Urine Trace <=Trace mg/dL LAB URINALYSIS - AUTOMATED METHOD 10/08/2024 7:41 PM [facility] Glucose, Urine Negative Negative mg/dL LAB URINALYSIS - AUTOMATED METHOD 10/08/2024 7:41 PM [facility] Ketones, Urine Trace(A) Negative mg/dL LAB URINALYSIS - AUTOMATED METHOD 10/08/2024 7:41 PM [facility] Urobilinogen , Urine 1.0 0.2 - 1.0 mg/dL LAB URINALYSIS - AUTOMATED METHOD 10/08/2024 7:41 PM [facility] Bilirubin, Urine Negative Negative LAB URINALYSIS - AUTOMATED METHOD 10/08/2024 7:41 PM [facility] Blood, Urine Moderate(A) Negative LAB URINALYSIS - AUTOMATED METHOD 10/08/2024 7:41 PM [facility] RBC, Urine 7.6(H) 0 - 4 /HPF LAB URINALYSIS - AUTOMATED METHOD 10/08/2024 7:41 PM [facility] WBC, Urine 23.0(H) 0 - 4 /HPF LAB URINALYSIS - AUTOMATED METHOD 10/08/2024 7:41 PM [facility] Squamous Epithelial, Urine 96(H) 0 - 60 /LPF LAB URINALYSIS - AUTOMATED METHOD 10/08/2024 7:41 PM [facility] Bacteria, Urine Moderate(A) Negative /HPF LAB URINALYSIS - AUTOMATED METHOD 10/08/2024 7:41 PM [facility] Hyaline Casts, Urine 2.0 0 - 3 /LPF LAB URINALYSIS - AUTOMATED METHOD 10/08/2024 7:41 PM [facility] Other Casts, Urine Rare Fine Granular casts. /LPF 10/08/2024 7:41 PM [facility] Urine Urine specimen obtained by clean catch procedure / Unknown Non-blood Collection / Unknown 10/08/2024 12:09 PM EDT 10/08/2024 12:09 PM EDT us Wale Pimentel NP LAB URINE ORDERABLES Final Re sult [facility] [address] [place] [address], [place] [phone] * (ABNORMAL) Culture urine (10/08/2024 12:09 PM EDT) Culture, Urine >100,000 CFU/mL Pseudomonas aeruginosa(A) ANNETTA 10/11/2024 7:24 AM EDT [facility] Urine Urine specimen obtained by clean catch procedure / Unknown Non-blood Collection / Unknown 10/08/2024 12:09 PM EDT 10/08/2024 7:41 PM EDT Narrative Organism Antibiotic Method Susceptibility Pseudomonas aeruginosa Ceftazidime ANNETTA 4 ug/ml: Susceptible Pseudomonas aeruginosa Cefepime ANNETTA 4 ug/ml: Susceptible Pseudomonas aeruginosa Meropenem ANNETTA <=0.25 ug/ml: Susceptible Pseudomonas aeruginosa Amikacin ANNETTA 4 ug/ml: Susceptible Pseudomonas aeruginosa Ciprofloxacin ANNETTA 0.25 ug/ml: Susceptible Pseudomonas aeruginosa Levofloxacin ANNETTA 1 ug/ml: Susceptible Pseudomonas aeruginosa Piperacillin/Tazobactam DISK DI FFUSION Susceptible Wale Jessica Pimentel SALES LEDGER CLERK LAB MICROBIOLOGY - GENERAL OR DERABLES Final Result [facility] [address] [place] [address], [place] [phone] * Tissue Exam (07/22/2024) Final Diagnosis Endometrium, biopsy: - Scant superficial strips of endometrial epithelium with tubal change. (See note.) Note: In the appropriate clinical setting, the morphologic findings in this scant biopsy would support a diagnosis of endometrial atrophy. However, the scant material received may not be fully associate sales representative of the endometrium. Clinical correlation is recommended. 07/24/2024 11:07 AM EST [facility] Clinical Information Hematuria [...] Small tissue fragments may not survive processing. [email or web address] 07/24/2024 11:07 AM EST [facility] Disclaimer Unless otherwise specified, all tissue is 10% NB formalin fixed and paraffin embedded. 07/24/2024 11:07 AM EST [facility] Tissue Endometrial structure / Unknown 07/22/2024 07/23/2024 7:03 AM EST Elvira Damon MD LAB PATHOLOGY ORDERABLES Final Result [facility] [address] [place] [address], * Annual BMP Blood Test (06/04/2024) Annual BMP Blood Test Abstracted Historical Provider HEALTH MAINTENANCE Final Result * SHAHRIAR SCREENING DIGITAL (03/26/2024 3:43 PM EDT) Anatomical Region Laterality Modality Mammography 03/12/2024 11:1 8 AM EDT Narrative 03/26/2024 3:43 PM EDT [facility] Diagnostic Imaging Department [address] [place] [address] Patient: ??LUCILA GRIFFITHS ?/Age/Sex: 1960 - 63 - F Unit#: ??[id number] ? Location/Status: ??SPDIMAM/REG CLI ? Mnemonic/Ordering Site: ??DIGSC/SPMAM Ordering Physician: ??PIMENTEL,WALE GUTIERREZP [facility] Screening Digital - 03/12/24 - 1133 Report Status:Signed EXAM: [facility] Screening Digital EXAM DATE AND TIME: 03/12/2024 11:34 AM HISTORY: ??Screening. Previous left breast biopsy, pathology benign. Mother had breast carcinoma at age 60. COMPARISON: ??No outside comparison imaging has been located on this patient. TECHNIQUE: Bilateral digital breast tomosynthesis was performed in the CC and MLO projections. Computer aided detection with Fairphone 3D 3.1 was employed. TISSUE DENSITY: b. [...] Mammogram performed at [facility] [place] [address] Dictating Physician: ??BERTA MOCK MD Electronically Signed by: ??BERTA MOCK MD Dic Date/Time: ??03/26/24 1540 Sign date/Time: ??03/26/24 1543 Procedure Note Berta Mock MD - 04/22/2024 [facility] Diagnostic Imaging Department [address] [place] [id number] Patient: AYELUCILAShama Concepcion./Age/Sex: 1960 - 63 - F Unit#: [id number] Location/Status: SPDIMAM/REG CLI Mnemonic/Ordering Site: [facility] Ordering Physician: WALE PIMENTEL [facility] Screening Digital - 03/12/24 - 1133 Report Status:Signed EXAM: [facility] Screening Digital EXAM DATE AND TIME: 03/12/2024 11:34 AM HISTORY: Screening. Previous left breast biopsy, pathology benign. Motherhad breast carcinoma at age 60. COMPARISON: No outside comparison imaging has been located on thispatient. TECHNIQUE: Bilateral digital breast tomosynthesis was performed in the CCand MLO projections. Computer aided detection with Fairphone 3D 3.1was employed. TISSUE DENSITY: b. There [...] Mammogram performed at [facility] at [address] [address] Dictating Physician: BERTA MOCK MD Electronically Signed by: BERTA MOCK MD Dic Date/Time: 03/26/24 154 Sign date/Time: 03/26/241542 Wale Pimentel SALES LEDGER CLERK IMG BI PROCEDURES Final Resul t * (ABNORMAL) Hemoglobin A1c (03/17/2024) Hemoglobin A1C 6.7(A) <=5.7 % Blood Venous blood specimen / Unknown Result [facility] Historical Provider LAB BLOOD ORDERABLES Claire l Result * (ABNORMAL) Lipid panel (09/26/2023) LDL/HDL Ratio 2 <=5 Triglycerides 73 <=150 mg/dL Cholesterol 89 <=200 mg/dL HDL 45(A) >=50 mg/dL LDL Cholesterol 29 <=100 mg/dL Blood Venous blood specimen / Unknown Result [facility] Historical Provider LAB BLOOD ORDERABLES Claire l Result from Last 3 Months or Most Recently Relevant to Health Maintenance Insurance [facility] * Guarantor: MACHO Account Type Relation to Patient Date of Phone Billing Address [place] [address] [facility] Advance Directives Documents on File Type Date Recorded Patient Statement Clerks Supervisor Expl anation Advance Directives and Living Will 07/30/2024 3:54 PM ADV DIR-Healthcare Proxy [email or web address] Advance Directives and Living Will 07/30/2024 3:54 [...] currently active code status orders. Care Teams Clinical Product Manager Relationship Specialty Start Date End Date Wale Pimentel NP [address] [place] [id number] PCP - General Family Medicine 05/02/24
--- OUTSIDE RECORDS SUMMARY | 2024-10-16 21:19 | XMS_ITS | Encounter Summary ---
Author Organization [facility] Address [address] [place] [address] Care Team Providers Care Sterile Technician Name Role Phone Dede Pimentel NP Primary Care Provider [phone] Reason for Referral * Consultation (Routine) - Authorized Specialty Diagnoses / Procedures Referred By Genesis gomez Referred To Contact Acute Care Hospital Diagnoses Fall, initial encounter Dede Pimentel NP [address] [place] [address] Phone: tel: fax: Referral ID Status Reason Start Date Expiration Date Visits Requested Visits Authorized [id number] Authorized Consult and Treat 10/16/2024 10/16/2025 1 1 Encounter Details Date Type Department Care Team (Late st Contact Info) Description 10/16/2024 PACE [facility] [address] [place] [address] Dede Pimentel NP [address] [address] Fall, initial encounter (Primary Dx) Social History Tobacco Use Types [...] as of this encounter Progress Notes * Priyanka Duarte OT - 10/16/2024 2:59 PM EDT Par reported fall and [place] [facility] [place] work [place]. clinical assessment manager has this verse writer's cell phone to provide updates as they arise. documented in this encounter Plan of Treatment Upcoming Encounters Date Type Department Care Team (Late st Contact Info) Description 10/17/2024 7:30 AM EDT PACE Home [facility] / [place] [facility] [address] [place] [phone] Shawna Lebron 10/17/2024 9:00 AM EDT Consult [facility] [place] [address] [place] [phone] 10/18/2024 7:30 AM EDT PACE Home Care / [facility] [place] [facility] [place] [facility] [address] [place] [phone] Jhoana Grijalva 10/19/2024 7:30 AM EDT PACE Home Care / [facility] [facility] [place] [facility] [address] [place] [phone] Jhoana Grijalva 10/20/2024 7:30 AM EDT PACE Home Care / [facility] [facility] [place] [facility] [address] [place] [phone] Cheryle Pryor 10/20/2024 9:00 AM EDT [facility] [facility] [place] [facility] [address] [place] [address] 10/20/2024 9:00 AM EDT Consult [facility] [place] [address] [place] [address] 10/21/2024 7:30 AM EDT PACE Home Care / [facility] [facility] [place] [facility] [address] [place] [phone] Cheryle Pryor 10/21/2024 9:00 AM EDT Consult [facility] [place] [address] [place] [phone] 10/21/2024 10:30 AM EDT PACE Home Care / [facility] [place] [facility] [address] [place] [phone] Cheryle Pryor 10/22/2024 7:30 AM EDT PACE Home Care / [facility] [place] [facility] [address] [place] [phone] Shawna Lebron 10/22/2024 9:00 AM EDT [facility] [place] [facility] [address] [place] [address] 10/22/2024 9:00 AM EDT Consult [facility] [place] [address] [place] [phone] 10/23/2024 7:30 AM EDT PACE Home Care / [facility] [place] [facility] [address] [place] [phone] hCeryle Pryor 10/23/2024 9:00 AM EDT Consult [facility] [place] [address] [place] [phone] 10/24/2024 7:30 AM EDT PACE Home Care / [facility] [place] [facility] [place] [facility] [address] [place] [phone] Shawna Lebron 10/24/2024 9:00 AM EDT Consult [facility] [place] [address] [place] [phone] 10/25/2024 7:30 AM EDT PACE Home Care / [facility] [place] [facility] [address] [place] [phone] Cheryle Pryor 10/26/2024 7:15 AM EDT PACE Home Care / [facility] [place] [facility] [address] [place] [phone] Cheryle Pryor 10/27/2024 7:30 AM EDT PACE Home Care / [facility] [place] [facility] [address] [place] [phone] Cheryle Pryor 10/27/2024 9:00 AM EDT [facility] [place] [facility] [address] [place] [phone] 10/28/2024 7:30 AM EDT PACE Home Care / [facility] [address] [place] [phone] Cheryle Pryor 10/28/2024 10:30 AM EDT PACE Home Care / [facility] [place] [facility] [address] [place] [phone] Cheryle Pryor 10/29/2024 7:30 AM EDT PACE Home Care / [facility] [place] [facility] [address] [place] [phone] Shawna Lebron 10/29/2024 9:00 AM EDT [facility] [place] [facility] [address] [place] [phone] 10/30/2024 7:30 AM EDT PACE Home Care / [facility] [place] [facility] [address] [place] [address] Cheryle Pryor 10/31/2024 7:30 AM EDT PACE Home Care / [facility] [facility] [place] [facility] [place] [facility] [address] [place] [phone] Shawna Lebron 10/31/2024 10:30 AM EDT PACE Home Care / [place] [facility] [place] [facility] [place] [facility] [address] [place] [phone] Jhoana Grijalva 11/01/2024 7:30 AM EDT PACE Home Care / [place] [facility] [place] [facility] [place] [facility] [address] [place] [phone] Jhoana Grijalva 11/02/2024 7:30 AM EDT PACE Home Care / [facility] [facility] [place] [facility] [place] [facility] [address] [place] [phone] Jhoana Grijalva 11/03/2024 7:30 AM EDT PACE Home Care / [facility] [facility] [place] [facility] [place] [facility] [address] [place] [phone] Cheryle Pryor 11/03/2024 9:00 AM EDT [facility] [place] [facility] [address] [place] [phone] 11/04/2024 7:30 AM EDT PACE Home Care / [facility] [facility] [place] [facility] [place] [facility] [address] [place] [phone] Cheryle Pryor 11/04/2024 10:30 AM EDT PACE Home Care / [facility] [facility] [place] [facility] [address] [place] [phone] Cheryle Pryor 11/05/2024 7:30 AM EDT PACE Home Care / [facility] [address] [place] [address] Shawna Lebron 11/05/2024 9:00 AM EDT [facility] [place] [facility] [address] [place] [address] 11/06/2024 7:30 AM EDT PACE Home Care / [facility] [address] [place] [phone] Cheryle Pryor 11/06/2024 10:00 AM EDT Clinical Support [facility] [place] [address] [place] [phone] 11/07/2024 7:30 AM EDT PACE Home Care / [facility] [address] [place] [phone] Shawna Lebron 11/07/2024 10:30 AM EDT PACE Home Care / [facility] [address] [place] [phone] Jhoana Grijalva 11/08/2024 7:30 AM EDT PACE Home Care / [facility] [address] [place] [phone] Cheryle Pryor 11/09/2024 7:30 AM EDT PACE Home Care / [facility] [address] [place] [phone] Cheryle Pryor 11/10/2024 7:30 AM EDT PACE Home Care / [facility] [address] [place] [phone] Cheryle Pryor 11/10/2024 9:00 AM EDT [facility] [place] [facility] [address] [place] [address] [place] [address] 11/10/2024 9:45 AM EDT Office Visit [facility] [address] [place] [phone] Gemini Simmons MD [address] [place] [address] [place] [address] 11/11/2024 7:30 AM EDT PACE Home Care / [facility] [place] [facility] [address] [place] [phone] Cheryle Pryor 11/11/2024 10:30 AM EDT PACE Home Care / [facility] [address] [place] [phone] Cheryle Pryor 11/12/2024 7:30 AM EDT PACE Home Care / [facility] [place] [facility] [place] [facility] [address] [place] [phone] Shawna Lebron 11/12/2024 9:00 AM EDT [facility] [place] [facility] [address] [place] [phone] 11/13/2024 7:30 AM EDT PACE Home Care / [facility] [facility] [place] [facility] [place] [facility] [address] [place] [phone] Cheryle Pryor 11/14/2024 7:30 AM EDT PACE Home Care / [facility] [place] [facility] [address] [place] [phone] Shawna Lebron 11/14/2024 10:30 AM EDT PACE Home Care / [facility] [place] [facility] [address] [place] [phone] Jhoana Grijalva 11/15/2024 7:30 AM EDT PACE Home Care / [facility] [address] [place] [address] Jhoana Grijalva 11/16/2024 7:30 AM EDT PACE Home Care / [facility] [address] [place] [address] Jhoana Grijalva 11/17/2024 7:30 AM EDT PACE Home Care / [facility] [address] [place] [address] Cheryle Pryor 11/17/2024 9:00 AM EDT [facility] [place] [facility] [address] [place] [address] 11/18/2024 7:30 AM EDT PACE Home Care / [facility] [address] [place] [address] Cheryle Pryor 11/18/2024 10:30 AM EDT PACE Home Care / [facility] [address] [place] [phone] Cheryle Pryor 11/19/2024 7:30 AM EDT PACE Home Care / [facility] [address] [place] [phone] Shawna Lebron 11/19/2024 9:00 AM EDT [facility] [facility] [place] [facility] [place] [facility] [address] [place] [address] 11/20/2024 7:30 AM EDT PACE Home Care / [facility] [place] [facility] [place] [facility] [address] [place] [address] Cheryle Pryor 11/21/2024 7:30 AM EDT PACE Home Care / [facility] [place] [facility] [address] [place] [address] Shawna Lebron 11/21/2024 10:30 AM EDT PACE Home Care / [facility] [place] [facility] [address] [place] [phone] Jhoana Grijalva 11/22/2024 7:30 AM EDT PACE Home Care / [facility] [place] [facility] [address] [place] [phone] Cheryle Pryor 11/23/2024 7:30 AM EDT PACE Home Care / [facility] [place] [facility] [address] [place] [phone] Cheryle Pryor 11/24/2024 7:30 AM EDT PACE Home Care / [facility] [address] [place] [phone] Cheryle Pryor 11/24/2024 9:00 AM EDT [facility] [place] [facility] [address] [place] [phone] 11/25/2024 7:30 AM EDT PACE Home Care / [facility] [address] [place] [phone] Cheryle Pryor 11/25/2024 10:30 AM EDT PACE Home Care / [facility] [address] [place] [phone] Cheryle Pryor 11/26/2024 7:30 AM EDT PACE Home Care / [facility] [address] [place] [phone] Shawna Lebron 11/26/2024 9:00 AM EDT [facility] [facility] [place] [facility] [address] [place] [address] 11/27/2024 7:30 AM EDT PACE Home Care / [facility] [place] [facility] [place] [facility] [address] [place] [address] Cheryle Pryor 11/28/2024 7:30 AM EDT PACE Home Care / [facility] [address] [place] [phone] Shawna Lebron 11/28/2024 10:30 AM EDT PACE Home Care / [facility] [place] [facility] [address] [place] [phone] Jhoana Grijalva 11/29/2024 7:30 AM EDT PACE Home Care / [facility] [address] [place] [phone] Jhoana Grijalva 11/30/2024 7:30 AM EDT PACE Home Care / [facility] [address] [place] [phone] Jhoana Grijalva 12/01/2024 7:30 AM EDT PACE Home Care / [facility] [address] [place] [phone] Cheryle Pryor 12/01/2024 9:00 AM EDT [facility] [facility] [place] [facility] [address] [place] [address] 12/02/2024 7:30 AM EDT PACE Home Care / [facility] [place] [facility] [address] [place] [phone] Cheryle Pryor 12/03/2024 7:30 AM EDT PACE Home Care / [facility] [place] [facility] [address] [place] [address] Shawna Lebron 12/03/2024 9:00 AM EDT [facility] Att[facility] [facility] [place] [facility] [address] [place] [address] 12/04/2024 7:30 AM EDT PACE Home Care / [facility] [place] [facility] [address] [place] [phone] Cheryle Pryor 12/05/2024 7:30 AM EDT PACE Home Care / [facility] [place] [facility] [place] [facility] [address] [place] [phone] Shawna Lebron 12/05/2024 10:30 AM EDT PACE Home Care / [facility] [place] [facility] [place] [facility] [address] [place] [phone] Jhoana Grijalva 12/06/2024 7:30 AM EDT PACE Home Care / [facility] [place] [facility] [address] [place] [phone] Cheryle Pryor 12/07/2024 7:30 AM EDT PACE Home Care / [facility] [place] [facility] [address] [place] [phone] Cheryle Pryor 12/08/2024 9:00 AM EDT [facility] [facility] [place] [facility] [address] [place] [address] 12/10/2024 9:00 AM EDT [facility] Att[facility] [facility] [place] [facility] [address] [place] [address] 12/15/2024 9:00 AM EDT [facility] Att[facility] [facility] [place] [facility] [address] [place] [address] 12/17/2024 9:00 AM EDT [facility] [place] [facility] [address] [place] [address] 12/22/2024 9:00 AM EDT [facility] [place] [facility] [address] [place] [address] 12/24/2024 9:00 AM EDT [facility] [place] [facility] [address] [place] [address] 12/29/2024 9:00 AM EDT [facility] [place] [facility] [address] [place] [address] 12/31/2024 9:00 AM EDT [facility] [place] [facility] [address] [place] [address] 01/05/2025 9:00 AM EDT [facility] [place] [facility] [address] [place] [address] 01/07/2025 9:00 AM EDT [facility] [place] [facility] [address] [place] [phone] 01/12/2025 9:00 AM EDT [facility] [place] [facility] [address] [place] [address] 01/14/2025 9:00 AM EDT [facility] [place] [facility] [address] [place] [phone] 01/19/2025 9:00 AM EDT [facility] [place] [facility] [address] [place] [address] 01/21/2025 9:00 AM EDT [facility] [place] [facility] [address] [place] [phone] 01/26/2025 9:00 AM EDT [facility] [place] [facility] [address] [place] [address] 01/28/2025 9:00 AM EDT [facility] [place] [facility] [address] [place] [address] 02/02/2025 9:00 AM EDT [facility] [place] [facility] [address] [place] [address] 02/04/2025 9:00 AM EDT [facility] [place] [facility] [address] [place] [address] 02/09/2025 9:00 AM EDT [facility] [place] [facility] [address] [place] [address] 02/11/2025 9:00 AM EDT [facility] [place] [facility] [address] [place] [address] 02/16/2025 9:00 AM EDT [facility] [place] [facility] [address] [place] [address] 02/18/2025 9:00 AM EDT [facility] [place] [facility] [address] [place] [phone] 02/23/2025 9:00 AM EDT [facility] [place] [facility] [address] [place] [address] 02/25/2025 9:00 AM EDT [facility] [place] [facility] [address] [place] [address] 03/02/2025 9:00 AM EDT [facility] [place] [facility] [address] [place] [address] 03/04/2025 9:00 AM EDT [facility] [place] [facility] [address] [place] [address] 03/09/2025 9:00 AM EDT [facility] [place] [facility] [address] [place] [address] 03/11/2025 9:00 AM EDT [facility] [place] [facility] [address] [place] [address] 03/16/2025 9:00 AM EDT [facility] [place] [facility] [address] [place] [address] 03/18/2025 9:00 AM EDT [facility] [place] [facility] [address] [place] [address] 03/23/2025 9:00 AM EDT [facility] [place] [facility] [address] [place] [address] 03/25/2025 9:00 AM EDT [facility] [place] [facility] [address] [place] [address] 03/30/2025 9:00 AM EDT [facility] [place] [facility] [address] [place] [phone] 04/01/2025 9:00 AM EDT [facility] [place] [facility] [address] [place] [address] 04/06/2025 9:00 AM EDT [facility] [place] [facility] [address] [place] [address] 04/08/2025 9:00 AM EDT [facility] [place] [facility] [address] [place] [address] 04/13/2025 9:00 AM EDT [facility] [place] [facility] [address] [place] [address] 04/15/2025 9:00 AM EDT [facility] [place] [facility] [address] [place] [address] 04/20/2025 9:00 AM EDT [facility] [place] [facility] [address] [place] [address] 04/22/2025 9:00 AM EDT [facility] [place] [facility] [address] [place] [address] 04/27/2025 9:00 AM EST [facility] [place] [facility] [address] [place] [address] 04/29/2025 9:00 AM EST [facility] [place] [facility] [address] [place] [phone] 05/04/2025 9:00 AM EST [facility] [place] [facility] [address] [place] [address] 05/06/2025 9:00 AM EST [facility] [place] [facility] [address] [place] [address] 05/11/2025 9:00 AM EST [facility] [place] [facility] [address] [place] [address] 05/13/2025 9:00 AM EST [facility] [place] [facility] [address] [place] [address] 05/18/2025 9:00 AM EST [facility] [place] [facility] [address] [place] [address] 05/20/2025 9:00 AM EST [facility] [place] [facility] [address] [place] [address] 05/25/2025 9:00 AM EST [facility] [place] [facility] [address] [place] [address] 05/27/2025 9:00 AM EST [facility] [place] [facility] [address] [place] [address] 06/01/2025 9:00 AM EST [facility] [place] [facility] [address] [place] [address] 06/03/2025 9:00 AM EST [facility] [place] [facility] [address] [place] [address] 06/08/2025 9:00 AM EST [facility] [place] [facility] [address] [place] [address] 06/10/2025 9:00 AM EST [facility] [place] [facility] [address] [place] [address] 06/15/2025 9:00 AM EST [facility] [place] [facility] [address] [place] [address] 06/17/2025 9:00 AM EST [facility] [place] [facility] [address] [place] [address] 06/22/2025 9:00 AM EST [facility] [place] [facility] [address] [place] [address] 06/24/2025 9:00 AM EST [facility] [place] [facility] [address] [place] [address] 06/29/2025 9:00 AM EST [facility] [place] [facility] [address] [place] [address] 07/01/2025 9:00 AM EST [facility] [place] [facility] [address] [place] [phone] 07/06/2025 9:00 AM EST [facility] [facility] [place] [facility] [address] [place] [address] 2025 9:00 AM EST [facility] [facility] [place] [facility] [address] [place] [address] 07/13/2025 9:00 AM EST [facility] [facility] [place] [facility] [address] [place] [address] 07/15/2025 9:00 AM EST [facility] [place] [facility] [address] [place] [address] 07/20/2025 9:00 AM EST [facility] [facility] [place] [facility] [address] [place] [address] 07/22/2025 9:00 AM EST [facility] [facility] [place] [facility] [address] [place] [address] 07/27/2025 9:00 AM EST [facility] [place] [facility] [address] [place] [address] 07/29/2025 9:00 AM EST [facility] [place] [facility] [address] [place] [address] 08/03/2025 9:00 AM EST P[facility] Attendance[facility] [facility] [place] [facility] [address] [place] [phone] Scheduled Referrals Name Type Priority Associated Diagnoses Orde r Schedule PACE Admisssion Outpatient Referral Routine Fall, initial encounter Ordered: 10/16/2024 documented as of this encounter Visit Diagnoses Diagnosis Fall, initial encounter- Primary documented in this encounter Care Teams Sterile Technician Relationship Specialty Start Date End Date Dede Pimentel NP [address] [address] PCP - General Family Medicine 05/02/24 documented as of this encounter
--- OUTSIDE RECORDS SUMMARY | 2024-10-16 21:19 | XMS_ITS ---
Author Organization [facility] Address [address] [place] [address] Care Team Providers Care Train Starter Name Role Phone Dede Pimentel UTILITY TRACTOR OPERATOR Primary Care Provider [phone] Program of [facility]-In[facility] Care for the Elderly Status:Enrolled (Active) Start date:09/24/2023 Enrollment date:09/24/2023 Related social drivers of health:Housing Instability, Financial Risk, Transportation, Social Isolation, Food Risk Related service episodes:[facility] (Active) Overview This episode will track [facility] documentation. Case Team Name Relationship Phone Dede Pimentel UTILITY TRACTOR OPERATOR Nurse Practitioner Reji Weems Recreational Therapist Sandy Keith RN Tallow Refiner Jesi Larkin IT SUPPORT TECHNICIAN Escrow Manager Horace Nagy RD Dietitian Arnav Thomas PT Physical Therapist Ady Briseno [facility] Julio CEBALLOSW Psychology Tech Mariah Le Psychology Tech Kenneth Castellon Spiritual Care Priyanka Duarte OT Occupational Therapist Charisse Ramos RN Registered Nurse Yaritza Oden MD Primary Care Provider Continued Care and Services Coordination
--- OUTSIDE RECORDS SUMMARY | 2024-10-16 21:19 | XMS_ITS ---
Author Organization [facility] Address [address] [place] [address] Care Team Providers Care Seat Joiner Name Role Phone Dede Pimentel STRAIN TECHNICIAN Primary Care Provider [phone] [facility] Status:Enrolled (Active) Start date:08/23/2024 Related program episode:Program of [facility]-In[facility] Care for the Elderly (Active) Continued Care and Services Coordination
--- OUTSIDE RECORDS SUMMARY | 2024-10-16 21:19 | XMS_ITS | Clinical Summary ---
Author Organization [facility] Address [address] [place] [address] Care Team Providers Care Pile Driving Superintendent Name Role Phone Eleazar Gleason MD Primary Care Provider [phone] Allergies Active Allergy Reactions Criticality Noted Date [...] age to complete this topic Care Teams Pile Driving Superintendent Relationship Specialty Start Date End Date Eleazar Gleason MD PCP - General Rheumatology 04/11/24
--- OUTSIDE RECORDS SUMMARY | 2024-10-16 21:19 | XMS_ITS | Encounter Summary ---
Author Organization [facility] Address [address] [place] [address] Care Team Providers Care Windows Server Architect Name Role Phone Dede Pimentel SALES APPRENTICE Primary Care Provider [phone] Encounter Details Date Type Department Care Team (Late st Contact Info) Description 10/16/2024 7:30 AM EDT PACE Home Care / P[facility] Home Visit [facility] [address] [place] [phone] Cheryle Pryor Social History Tobacco Use Types [...] [place] [facility] [address] [place] [phone] Shawna Lebron 10/17/2024 9:00 AM EDT Consult [facility] [address] [place] [phone] 10/18/2024 7:30 AM EDT PACE Home Care / [facility] [address] [place] [phone] Jhoana Grijalva 10/19/2024 7:30 AM EDT PACE Home Care / [facility] Home Visit [facility] [address] [place] [phone] Jhoana Grijalva 10/20/2024 7:30 AM EDT PACE Home Care / [facility] Visit [facility] [place] [facility] [address] [place] [phone] Cheryle Pryor 10/20/2024 9:00 AM EDT [facility] Att[facility] [place] [facility] [address] [place] [phone] 10/20/2024 9:00 AM EDT Consult [facility] [place] [address] [place] [phone] 10/21/2024 7:30 AM EDT PACE Home Care / [facility] [address] [place] [phone] Cheryle Pryor 10/21/2024 9:00 AM EDT Consult [facility] [place] [address] [place] [phone] 10/21/2024 10:30 AM EDT PACE Home Care / [facility] [address] [place] [phone] Cheryle Pryor 10/22/2024 7:30 AM EDT PACE Home Care / [facility] [place] [facility] [address] [place] [phone] Shawna Lebron 10/22/2024 9:00 AM EDT P[facility] Attendance[facility] [place] [facility] [address] [place] [address] 10/22/2024 9:00 AM EDT Consult [facility] [place] [address] [place] [phone] 10/23/2024 7:30 AM EDT PACE Home Care / PACE Home Visit [facility] [place] [facility] [address] [place] [phone] Cheryle Pryor 10/23/2024 9:00 AM EDT Consult [facility] [place] [address] [place] [phone] 10/24/2024 7:30 AM EDT PACE Home Care / PACE Home Visit [facility] [place] [facility] [address] [place] [phone] Shawna Lebron 10/24/2024 9:00 AM EDT Consult [facility] [address] [place] [phone] 10/25/2024 7:30 AM EDT PACE Home Care / PACE Home Visit [facility] [place] [facility] [address] [place] [phone] Cheryle Pryor 10/26/2024 7:15 AM EDT PACE Home Care / PACE Home Visit [facility] [address] [place] [phone] Cheryle Pryor 10/27/2024 7:30 AM EDT PACE Home Care / [facility] [address] [place] [phone] Cheryle Pryor 10/27/2024 9:00 AM EDT PACE Attendance[facility] [place] [facility] [address] [place] [phone] 10/28/2024 7:30 AM EDT PACE Home Care / [facility] Visit [facility] [place] [facility] [address] [place] [phone] Cheryle Pryor 10/28/2024 10:30 AM EDT PACE Home Care / [facility] [place] [facility] [address] [place] [phone] Cheryle Pryor 10/29/2024 7:30 AM EDT PACE Home Care / [facility] Home Visit [facility] [place] [facility] [address] [place] [phone] Shawna Lebron 10/29/2024 9:00 AM EDT P[facility] Attend[facility] [place] [facility] [address] [place] [phone] 10/30/2024 7:30 AM EDT PACE Home Care / [facility] [place] [facility] [address] [place] [phone] Cheryle Pryor 10/31/2024 7:30 AM EDT PACE Home Care / [facility] [place] [facility] [address] [place] [phone] Shawna Lebron 10/31/2024 10:30 AM EDT PACE Home Care / [facility] Home Visit [facility] [place] [facility] [address] [place] [phone] Jhoana Grijalva 11/01/2024 7:30 AM EDT PACE Home Care / [facility] [place] [facility] [address] [place] [phone] Jhoana Grijalva 11/02/2024 7:30 AM EDT PACE Home Care / [facility] [place] [facility] [address] [place] [phone] Jhoana Grijalva 11/03/2024 7:30 AM EDT PACE Home Care / PACE Home Visit [facility] [place] [facility] [address] [place] [phone] Cheryle Pryor 11/03/2024 9:00 AM EDT [facility] Attend[facility] [place] [facility] [address] [place] [address] 11/04/2024 7:30 AM EDT PACE Home Care / PACE Home Visit [facility] [place] [facility] [address] [place] [phone] Cheryle Pryor 11/04/2024 10:30 AM EDT PACE Home Care / P[facility] Home Visit [facility] [place] [facility] [address] [place] [phone] Cheryle Pryor 11/05/2024 7:30 AM EDT PACE Home Care / PACE Home Visit [facility] [place] [facility] [address] [place] [phone] Shawna Lebron 11/05/2024 9:00 AM EDT P[facility] Attend[facility] [place] [facility] [address] [place] [phone] 11/06/2024 7:30 AM EDT PACE Home Care / PACE Home Visit [facility] [address] [place] [phone] Cheryle Pryor 11/06/2024 10:00 AM EDT Clinical Support [facility] [place] [address] [place] [address] 11/07/2024 7:30 AM EDT PACE Home Care / PACE Home Visit [facility] [place] [facility] [address] [place] [phone] Shawna Lebron 11/07/2024 10:30 AM EDT PACE Home Care / PACE Home Visit [facility] [place] [facility] [address] [place] [address] Jhoana Grijalva 11/08/2024 7:30 AM EDT PACE Home Care / PACE Home Visit [facility] [address] [place] [phone] Cheryle Pryor 11/09/2024 7:30 AM EDT PACE Home Care / PACE Home Visit [facility] [place] [facility] [address] [place] [phone] Cheryle Pryor 11/10/2024 7:30 AM EDT PACE Home Care / PACE Home Visit [facility] [place] [facility] [address] [place] [phone] Cheryle Pryor 11/10/2024 9:00 AM EDT P[facility] Attendance[facility] [place] [facility] [address] [place] [phone] 11/10/2024 9:45 AM EDT Office Visit [facility] [address] [place] [phone] Gemini Simmons MD [address] [address] 11/11/2024 7:30 AM EDT PACE Home Care / PACE Home Visit [facility] [place] [facility] [address] [place] [phone] Cheryle Pryor 11/11/2024 10:30 AM EDT PACE Home Care / PACE Home Visit [facility] [place] [facility] [address] [place] [phone] Cheryle Pryor 11/12/2024 7:30 AM EDT PACE Home Care / PACE Home Visit [facility] [address] [place] [phone] Shawna Lebron 11/12/2024 9:00 AM EDT PACE Attend[facility] [place] [facility] [address] [place] [phone] 11/13/2024 7:30 AM EDT PACE Home Care / PACE Home Visit [facility] [place] [facility] [address] [place] [phone] Cheryle Pryor 11/14/2024 7:30 AM EDT PACE Home Care / PACE Home Visit [facility] [address] [place] [phone] Shawna Lebron 11/14/2024 10:30 AM EDT PACE Home Care / PACE Home Visit [facility] [place] [facility] [address] [place] [phone] Jhoana Grijalva 11/15/2024 7:30 AM EDT PACE Home Care / PACE Home Visit [facility] [place] [facility] [address] [place] [phone] Jhoana Grijalva 11/16/2024 7:30 AM EDT PACE Home Care / PACE Home Visit [facility] [place] [facility] [address] [place] [phone] Jhoana Grijalva 11/17/2024 7:30 AM EDT PACE Home Care / [facility] [address] [place] [phone] Cheryle Pryor 11/17/2024 9:00 AM EDT P[facility] Attendance[facility] [place] [facility] [address] [place] [phone] 11/18/2024 7:30 AM EDT PACE Home Care / [facility] [place] [facility] [address] [place] [phone] Cheryle Pryor 11/18/2024 10:30 AM EDT PACE Home Care / [facility] [place] [facility] [address] [place] [phone] Cheryle Pryor 11/19/2024 7:30 AM EDT PACE Home Care / [facility] Visit [facility] [place] [facility] [address] [place] [phone] Shawna Lebron 11/19/2024 9:00 AM EDT P[facility] Attendance[facility] [place] [facility] [address] [place] [phone] 11/20/2024 7:30 AM EDT PACE Home Care / [facility] Home Visit [facility] [place] [facility] [address] [place] [phone] Cheryle Pryor 11/21/2024 7:30 AM EDT PACE Home Care / [facility] [place] [facility] [address] [place] [phone] Shawna Lebron 11/21/2024 10:30 AM EDT PACE Home Care / [facility] Visit [facility] [place] [facility] [address] [place] [phone] Jhoana Grijalva 11/22/2024 7:30 AM EDT PACE Home Care / [facility] [place] [facility] [address] [place] [phone] Cheryle Pryor 11/23/2024 7:30 AM EDT PACE Home Care / [facility] [place] [facility] [address] [place] [phone] Cheryle Pryor 11/24/2024 7:30 AM EDT PACE Home Care / [facility] [place] [facility] [address] [place] [phone] Cheryle Pryor 11/24/2024 9:00 AM EDT P[facility] Attendance[facility] [place] [facility] [facility] [address] [place] [phone] 11/25/2024 7:30 AM EDT PACE Home Care / PACE Home Visit [facility] [place] [facility] [address] [place] [phone] Cheryle Pryor 11/25/2024 10:30 AM EDT PACE Home Care / PACE Home Visit [facility] [place] [facility] [address] [place] [phone] Cheryle Pryor 11/26/2024 7:30 AM EDT PACE Home Care / PACE Home Visit [facility] [place] [facility] [address] [place] [phone] Shawna Lebron 11/26/2024 9:00 AM EDT P[facility] Attendance[facility] [place] [facility] [address] [place] [phone] 11/27/2024 7:30 AM EDT PACE Home Care / PACE Home Visit [facility] [address] [place] [phone] Cheryle Pryor 11/28/2024 7:30 AM EDT PACE Home Care / PACE Home Visit [facility] [place] [facility] [address] [place] [phone] Shawna Lebron 11/28/2024 10:30 AM EDT PACE Home Care / PACE Home Visit [facility] [place] [facility] [address] [place] [phone] Jhoana Grijalva 11/29/2024 7:30 AM EDT PACE Home Care / PACE Home Visit [facility] [address] [place] [phone] Jhoana Grijalva 11/30/2024 7:30 AM EDT PACE Home Care / [facility] [address] [place] [phone] Jhoana Grijalva 12/01/2024 7:30 AM EDT PACE Home Care / [facility] [address] [place] [phone] Cheryle Pryor 12/01/2024 9:00 AM EDT [facility] Att[facility] [place] [facility] [address] [place] [address] 12/02/2024 7:30 AM EDT PACE Home Care / [facility] Visit [facility] [address] [place] [phone] Cheryle Pryor 12/03/2024 7:30 AM EDT PACE Home Care / [facility] Visit [facility] [place] [facility] [address] [place] [phone] Shawna Lebron 12/03/2024 9:00 AM EDT P[facility] Attendance[facility] [place] [facility] [address] [place] [address] 12/04/2024 7:30 AM EDT PACE Home Care / [facility] Visit [facility] [place] [facility] [address] [place] [phone] Cheryle Pryor 12/05/2024 7:30 AM EDT PACE Home Care / [facility] Home Visit [facility] [place] [facility] [address] [place] [phone] Shawna Lebron 12/05/2024 10:30 AM EDT PACE Home Care / [facility] [place] [facility] [address] [place] [phone] Jhoana Grijalva 12/06/2024 7:30 AM EDT PACE Home Care / [facility] [place] [facility] [address] [place] [phone] Cheryle Pryor 12/07/2024 7:30 AM EDT PACE Home Care / PACE Home Visit [facility] [address] [place] [phone] Cheryle Pryor 12/08/2024 9:00 AM EDT [facility] [place] [facility] [address] [place] [address] 12/10/2024 9:00 AM EDT [facility] [place] [facility] [address] [place] [phone] 12/15/2024 9:00 AM EDT [facility] [place] [facility] [address] [place] [phone] 12/17/2024 9:00 AM EDT [facility] [place] [facility] [address] [place] [phone] 12/22/2024 9:00 AM EDT [facility] [place] [facility] [address] [place] [phone] 12/24/2024 9:00 AM EDT [facility] [place] [facility] [address] [place] [phone] 12/29/2024 9:00 AM EDT [facility] [place] [facility] [address] [place] [phone] 12/31/2024 9:00 AM EDT [facility] [place] [facility] [address] [place] [phone] 01/05/2025 9:00 AM EDT P[facility] [place] [facility] [address] [place] [phone] 01/07/2025 9:00 AM EDT P[facility] Attend[facility] [place] [facility] [address] [place] [address] 01/12/2025 9:00 AM EDT P[facility] [place] [facility] [address] [place] [address] 01/14/2025 9:00 AM EDT P[facility] Attend[facility] [place] [facility] [address] [place] [address] 01/19/2025 9:00 AM EDT P[facility] Attend[facility] [place] [facility] [address] [place] [phone] 01/21/2025 9:00 AM EDT P[facility] Attend[facility] [place] [facility] [address] [place] [address] 01/26/2025 9:00 AM EDT P[facility] Attend[facility] [place] [facility] [address] [place] [phone] 01/28/2025 9:00 AM EDT [facility] [place] [facility] [address] [place] [phone] 02/02/2025 9:00 AM EDT [facility] [place] [facility] [address] [place] [phone] 02/04/2025 9:00 AM EDT [facility] [place] [facility] [address] [place] [address] 02/09/2025 9:00 AM EDT [facility] [place] [facility] [address] [place] [address] 02/11/2025 9:00 AM EDT [facility] [place] [facility] [address] [place] [phone] 02/16/2025 9:00 AM EDT [facility] Attend[facility] [place] [facility] [address] [place] [address] 02/18/2025 9:00 AM EDT P[facility] Attend[facility] [place] [facility] [address] [place] [address] 02/23/2025 9:00 AM EDT [facility] Attend[facility] [place] [facility] [address] [place] [address] 02/25/2025 9:00 AM EDT [facility] Attend[facility] [place] [facility] [address] [place] [address] 03/02/2025 9:00 AM EDT [facility] Att[facility] [place] [facility] [address] [place] [phone] 03/04/2025 9:00 AM EDT P[facility] Attend[facility] [place] [facility] [address] [place] [address] 03/09/2025 9:00 AM EDT P[facility] Attend[facility] [place] [facility] [address] [place] [phone] 03/11/2025 9:00 AM EDT P[facility] Attend[facility] [place] [facility] [address] [place] [phone] 03/16/2025 9:00 AM EDT [facility] [place] [facility] [address] [place] [address] 03/18/2025 9:00 AM EDT [facility] [place] [facility] [address] [place] [address] 03/23/2025 9:00 AM EDT [facility] [place] [facility] [address] [place] [address] 03/25/2025 9:00 AM EDT [facility] [place] [facility] [address] [place] [address] 03/30/2025 9:00 AM EDT [facility] Attend[facility] [place] [facility] [address] [place] [address] 04/01/2025 9:00 AM EDT P[facility] Attend[facility] [place] [facility] [address] [place] [address] 04/06/2025 9:00 AM EDT [facility] Attend[facility] [place] [facility] [address] [place] [address] 04/08/2025 9:00 AM EDT P[facility] Attend[facility] [place] [facility] [address] [place] [phone] 04/13/2025 9:00 AM EDT P[facility] Attend[facility] [place] [facility] [address] [place] [phone] 04/15/2025 9:00 AM EDT [facility] Attend[facility] [place] [facility] [address] [place] [phone] 04/20/2025 9:00 AM EDT P[facility] Attend[facility] [place] [facility] [address] [place] [phone] 04/22/2025 9:00 AM EDT [facility] [place] [facility] [address] [place] [phone] 04/27/2025 9:00 AM EST [facility] [place] [facility] [address] [place] [phone] 04/29/2025 9:00 AM EST [facility] [place] [facility] [address] [place] [phone] 05/04/2025 9:00 AM EST [facility] [place] [facility] [address] [place] [address] 05/06/2025 9:00 AM EST [facility] [place] [facility] [address] [place] [address] 05/11/2025 9:00 AM EST [facility] [place] [facility] [address] [place] [address] 05/13/2025 9:00 AM EST [facility] [place] [facility] [address] [place] [address] 05/18/2025 9:00 AM EST [facility] [place] [facility] [address] [place] [address] 05/20/2025 9:00 AM EST [facility] [place] [facility] [address] [place] [address] 05/25/2025 9:00 AM EST [facility] [place] [facility] [address] [place] [phone] 05/27/2025 9:00 AM EST [facility] [place] [facility] [address] [place] [phone] 06/01/2025 9:00 AM EST [facility] [place] [facility] [address] [place] [address] 06/03/2025 9:00 AM EST [facility] [place] [facility] [address] [place] [address] 06/08/2025 9:00 AM EST [facility] [place] [facility] [address] [place] [address] 06/10/2025 9:00 AM EST [facility] [place] [facility] [address] [place] [address] 06/15/2025 9:00 AM EST [facility] [place] [facility] [address] [place] [address] 06/17/2025 9:00 AM EST [facility] [place] [facility] [address] [place] [address] 06/22/2025 9:00 AM EST [facility] [place] [facility] [address] [place] [address] 06/24/2025 9:00 AM EST [facility] [place] [facility] [address] [place] [address] 06/29/2025 9:00 AM EST [facility] [place] [facility] [address] [place] [phone] 07/01/2025 9:00 AM EST [facility] [place] [facility] [address] [place] [phone] 07/06/2025 9:00 AM EST [facility] [place] [facility] [address] [place] [phone] 2025 9:00 AM EST [facility] [place] [facility] [address] [place] [phone] 07/13/2025 9:00 AM EST [facility] [place] [facility] [address] [place] [address] 07/15/2025 9:00 AM EST [facility] [place] [facility] [address] [place] [address] 07/20/2025 9:00 AM EST [facility] [place] [facility] [address] [place] [address] 07/22/2025 9:00 AM EST PACE Attendance/Day Center [facility] [address] [place] [address] 07/27/2025 9:00 AM EST [facility] [address] [place] [phone] 07/29/2025 9:00 AM EST [facility] [address] [address] 08/03/2025 9:00 AM EST [facility] Day [address] [address] documented as of this encounter Visit Diagnoses Not on filedocumented in this encounter Care Teams Windows Server Architect Relationship Specialty Start Date End Date Dede Pimentel NP [address] [place] [phone] PCP - General Family Medicine 05/02/24 documented as of this encounter
--- OUTSIDE RECORDS SUMMARY | 2024-10-16 21:19 | XMS_ITS | Encounter Summary ---
Author Organization [facility] Address [address] [place] [address] Care Team Providers Care Janitor Supervisor Name Role Phone Dede Pimentel ALARM SIGNALER Primary Care Provider [phone] Encounter Details Date Type Department Care Team (Late st Contact Info) Description 10/15/2024 7:00 AM EDT PACE Home Care / PACE Home Visit [facility] [address] [place] [phone] Cheryle Pryor Social History Tobacco Use Types [...] [place] [facility] [address] [place] [phone] Shawna Lebron 10/17/2024 9:00 AM EDT Consult [facility] [place] [address] [place] [phone] 10/18/2024 7:30 AM EDT PACE Home Care / [facility] Home Visit [facility] [address] [place] [phone] Jhoana Grijalva 10/19/2024 7:30 AM EDT PACE Home Care / [facility] Home Visit [facility] [place] [facility] [address] [place] [phone] Jhoana Grijalva 10/20/2024 7:30 AM EDT PACE Home Care / [facility] Home Visit [facility] [place] [facility] [address] [place] [phone] Cheryle Pryor 10/20/2024 9:00 AM EDT P[facility] Attendance[facility] [address] [place] [phone] 10/20/2024 9:00 AM EDT Consult [facility] [place] [address] [place] [phone] 10/21/2024 7:30 AM EDT PACE Home Care / [facility] Home Visit [facility] [address] [place] [phone] Cheryle Pryor 10/21/2024 9:00 AM EDT Consult [facility] [place] [address] [place] [phone] 10/21/2024 10:30 AM EDT PACE Home Care / [facility] Visit [facility] [address] [place] [phone] Cheryle Pryor 10/22/2024 7:30 AM EDT PACE Home Care / [facility] Home Visit [facility] [address] [place] [phone] Shawna Lebron 10/22/2024 9:00 AM EDT PACE Attendance/[facility] [place] [facility] [address] [place] [address] 10/22/2024 9:00 AM EDT Consult [facility] [place] [address] [place] [phone] 10/23/2024 7:30 AM EDT PACE Home Care / PACE Home Visit [facility] [place] [facility] [address] [place] [phone] Cheryle Pryor 10/23/2024 9:00 AM EDT Consult [facility] [place] [address] [place] [phone] 10/24/2024 7:30 AM EDT PACE Home Care / PACE Home Visit [facility] [place] [facility] [address] [place] [phone] Shawna Lebron 10/24/2024 9:00 AM EDT Consult [facility] [address] [place] [phone] 10/25/2024 7:30 AM EDT PACE Home Care / PACE Home Visit [facility] [address] [place] [phone] Cheryle Pryor 10/26/2024 7:15 AM EDT PACE Home Care / PACE Home Visit [facility] [address] [place] [phone] Cheryle Pryor 10/27/2024 7:30 AM EDT PACE Home Care / [facility] [address] [place] [phone] Cheryle Pryor 10/27/2024 9:00 AM EDT PACE Attendance/[facility] [place] [facility] [address] [place] [phone] 10/28/2024 7:30 AM EDT PACE Home Care / [facility] Home Visit [facility] [place] [facility] [address] [place] [phone] Cheryle Pryor 10/28/2024 10:30 AM EDT PACE Home Care / [facility] Home Visit [facility] [place] [facility] [address] [place] [phone] Cheryle Pryor 10/29/2024 7:30 AM EDT PACE Home Care / [facility] Home Visit [facility] [place] [facility] [address] [place] [phone] Shawna Lebron 10/29/2024 9:00 AM EDT PACE Attendance/[facility] [place] [facility] [address] [place] [phone] 10/30/2024 7:30 AM EDT PACE Home Care / [facility] [address] [place] [phone] Cheryle Pryor 10/31/2024 7:30 AM EDT PACE Home Care / [facility] Visit [facility] [address] [place] [phone] Shawna Lebron 10/31/2024 10:30 AM EDT PACE Home Care / [facility] Home Visit [facility] [place] [facility] [address] [place] [phone] Jhoana Grijalva 11/01/2024 7:30 AM EDT PACE Home Care / [facility] Visit [facility] [address] [place] [phone] Jhoana Grijalva 11/02/2024 7:30 AM EDT PACE Home Care / [facility] Visit [facility] [address] [place] [phone] Jhoana Grijalva 11/03/2024 7:30 AM EDT PACE Home Care / PACE Home Visit [facility] [address] [place] [phone] Cheryle Pryor 11/03/2024 9:00 AM EDT PACE Attendance[facility] [place] [facility] [address] [place] [address] 11/04/2024 7:30 AM EDT PACE Home Care / PACE Home Visit [facility] [address] [place] [phone] Cheryle Pryor 11/04/2024 10:30 AM EDT PACE Home Care / PACE Home Visit [facility] [address] [place] [phone] Cheryle Pryor 11/05/2024 7:30 AM EDT PACE Home Care / PACE Home Visit [facility] [address] [place] [phone] Shawna Lebron 11/05/2024 9:00 AM EDT PACE Attendance[facility] [place] [facility] [address] [place] [phone] 11/06/2024 7:30 AM EDT PACE Home Care / PACE Home Visit [facility] [address] [place] [phone] Cheryle Pryor 11/06/2024 10:00 AM EDT Clinical Support [facility] [place] [address] [place] [address] 11/07/2024 7:30 AM EDT PACE Home Care / PACE Home Visit [facility] [address] [place] [phone] Shawna Lebron 11/07/2024 10:30 AM EDT PACE Home Care / PACE Home Visit [facility] [address] [place] [address] Jhoana Grijalva 11/08/2024 7:30 AM EDT PACE Home Care / PACE Home Visit [facility] [address] [place] [phone] Cheryle Pryor 11/09/2024 7:30 AM EDT PACE Home Care / PACE Home Visit [facility] [address] [place] [phone] Cheryle Pryor 11/10/2024 7:30 AM EDT PACE Home Care / PACE Home Visit [facility] [address] [place] [phone] Cheryle Pryor 11/10/2024 9:00 AM EDT PACE Attendance[facility] [place] [facility] [address] [place] [phone] 11/10/2024 9:45 AM EDT Office Visit [facility] [address] [place] [phone] Gemini Simmons MD [address] [address] 11/11/2024 7:30 AM EDT PACE Home Care / PACE Home Visit [facility] [address] [place] [phone] Cheryle Pryor 11/11/2024 10:30 AM EDT PACE Home Care / PACE Home Visit [facility] [address] [place] [phone] Cheryle Pryor 11/12/2024 7:30 AM EDT PACE Home Care / PACE Home Visit [facility] [address] [place] [phone] Shawna Lebron 11/12/2024 9:00 AM EDT PACE Attendance/[facility] [place] [facility] [address] [place] [phone] 11/13/2024 7:30 AM EDT PACE Home Care / PACE Home Visit [facility] [address] [place] [phone] Cheryle Pryor 11/14/2024 7:30 AM EDT PACE Home Care / PACE Home Visit [facility] [address] [place] [phone] Shawna Lebron 11/14/2024 10:30 AM EDT PACE Home Care / PACE Home Visit [facility] [address] [place] [phone] Jhoana Grijalva 11/15/2024 7:30 AM EDT PACE Home Care / PACE Home Visit [facility] [address] [place] [phone] Jhoana Grijalva 11/16/2024 7:30 AM EDT PACE Home Care / PACE Home Visit [facility] [address] [place] [phone] Jhoana Grijalva 11/17/2024 7:30 AM EDT PACE Home Care / [facility] [address] [place] [phone] Cheryle Pryor 11/17/2024 9:00 AM EDT PACE Attendance/[facility] [place] [facility] [address] [place] [phone] 11/18/2024 7:30 AM EDT PACE Home Care / [facility] [address] [place] [phone] Cheryle Pryor 11/18/2024 10:30 AM EDT PACE Home Care / [facility] Visit [facility] [address] [place] [phone] Cheryle Pryor 11/19/2024 7:30 AM EDT PACE Home Care / [facility] Home Visit [facility] [place] [facility] [address] [place] [phone] Shawna Lebron 11/19/2024 9:00 AM EDT PACE Attendance/[facility] [place] [facility] [address] [place] [phone] 11/20/2024 7:30 AM EDT PACE Home Care / [facility] Home Visit [facility] [place] [facility] [address] [place] [phone] Cheryle Pryor 11/21/2024 7:30 AM EDT PACE Home Care / [facility] Visit [facility] [place] [facility] [address] [place] [phone] Shawna Lebron 11/21/2024 10:30 AM EDT PACE Home Care / [facility] Visit [facility] [place] [facility] [address] [place] [phone] Jhoana Grijalva 11/22/2024 7:30 AM EDT PACE Home Care / [facility] Home Visit [facility] [place] [facility] [address] [place] [phone] Cheryle Pryor 11/23/2024 7:30 AM EDT PACE Home Care / [facility] Visit [facility] [place] [facility] [address] [place] [phone] Cheryle Pryor 11/24/2024 7:30 AM EDT PACE Home Care / [facility] Home Visit [facility] [place] [facility] [address] [place] [phone] Cheryle Pryor 11/24/2024 9:00 AM EDT PACE Attendance[facility] [place] [facility] [address] [place] [phone] 11/25/2024 7:30 AM EDT PACE Home Care / PACE Home Visit [facility] [address] [place] [phone] Cheryle Pryor 11/25/2024 10:30 AM EDT PACE Home Care / PACE Home Visit [facility] [address] [place] [phone] Cheryle Pryor 11/26/2024 7:30 AM EDT PACE Home Care / PACE Home Visit [facility] [address] [place] [phone] Shawna Lebron 11/26/2024 9:00 AM EDT PACE Attendance/[facility] [place] [facility] [address] [place] [phone] 11/27/2024 7:30 AM EDT PACE Home Care / PACE Home Visit [facility] [address] [place] [phone] Cheryle Pryor 11/28/2024 7:30 AM EDT PACE Home Care / PACE Home Visit [facility] [address] [place] [phone] Shawna Lebron 11/28/2024 10:30 AM EDT PACE Home Care / PACE Home Visit [facility] [address] [place] [phone] Jhoana Grijalva 11/29/2024 7:30 AM EDT PACE Home Care / PACE Home Visit [facility] [address] [place] [phone] Jhoana Grijalva 11/30/2024 7:30 AM EDT PACE Home Care / [facility] Visit [facility] [address] [place] [address] Jhoana Grijalva 12/01/2024 7:30 AM EDT PACE Home Care / [facility] Visit [facility] [address] [place] [address] Cheryle Pryor 12/01/2024 9:00 AM EDT PACE Attendance[facility] [place] [facility] [address] [place] [address] 12/02/2024 7:30 AM EDT PACE Home Care / [facility] Visit [facility] [address] [place] [phone] Cheryle Pryor 12/03/2024 7:30 AM EDT PACE Home Care / [facility] Home Visit [facility] [place] [facility] [address] [place] [phone] Shawna Lebron 12/03/2024 9:00 AM EDT PACE Attendance/[facility] [place] [facility] [address] [place] [address] 12/04/2024 7:30 AM EDT PACE Home Care / [facility] Visit [facility] [address] [place] [phone] Cheryle Pryor 12/05/2024 7:30 AM EDT PACE Home Care / [facility] Home Visit [facility] [address] [place] [phone] Shawna Lebron 12/05/2024 10:30 AM EDT PACE Home Care / [facility] Visit [facility] [address] [place] [phone] Jhoana Grijalva 12/06/2024 7:30 AM EDT PACE Home Care / [facility] Visit [facility] [address] [place] [address] Cheryle Pryor 12/07/2024 7:30 AM EDT PACE Home Care / PACE Home Visit [facility] [address] [place] [phone] Cheryle Pryor 12/08/2024 9:00 AM EDT P[facility] Attendance[facility] [place] [facility] [address] [place] [address] 12/10/2024 9:00 AM EDT P[facility] Attend[facility] [place] [facility] [address] [place] [phone] 12/15/2024 9:00 AM EDT P[facility] Attend[facility] [place] [facility] [address] [place] [phone] 12/17/2024 9:00 AM EDT P[facility] Attend[facility] [place] [facility] [address] [place] [phone] 12/22/2024 9:00 AM EDT P[facility] Attend[facility] [place] [facility] [address] [place] [phone] 12/24/2024 9:00 AM EDT P[facility] Attend[facility] [place] [facility] [address] [place] [phone] 12/29/2024 9:00 AM EDT P[facility] Attend[facility] [place] [facility] [address] [place] [phone] 12/31/2024 9:00 AM EDT P[facility] Attend[facility] [place] [facility] [address] [place] [phone] 01/05/2025 9:00 AM EDT PACE Attendance[facility] [place] [facility] [address] [place] [phone] 01/07/2025 9:00 AM EDT PACE Attendance[facility] [place] [facility] [address] [place] [address] 01/12/2025 9:00 AM EDT PACE Attendance[facility] [place] [facility] [address] [place] [address] 01/14/2025 9:00 AM EDT PACE Attendance[facility] [place] [facility] [address] [place] [address] 01/19/2025 9:00 AM EDT PACE Attendance[facility] [place] [facility] [address] [place] [phone] 01/21/2025 9:00 AM EDT PACE Attendance[facility] [place] [facility] [address] [place] [address] 01/26/2025 9:00 AM EDT PACE Attendance[facility] [place] [facility] [address] [place] [phone] 01/28/2025 9:00 AM EDT P[facility] Att[facility] [place] [facility] [address] [place] [phone] 02/02/2025 9:00 AM EDT P[facility] Attend[facility] [place] [facility] [address] [place] [phone] 02/04/2025 9:00 AM EDT P[facility] Attendance[facility] [place] [facility] [address] [place] [address] 02/09/2025 9:00 AM EDT P[facility] Attend[facility] [place] [facility] [address] [place] [address] 02/11/2025 9:00 AM EDT P[facility] Attend[facility] [place] [facility] [address] [place] [phone] 02/16/2025 9:00 AM EDT PACE Attendance[facility] [place] [facility] [address] [place] [address] 02/18/2025 9:00 AM EDT PACE Attendance[facility] [place] [facility] [address] [place] [address] 02/23/2025 9:00 AM EDT PACE Attendance[facility] [place] [facility] [address] [place] [address] 02/25/2025 9:00 AM EDT P[facility] Attendance[facility] [place] [facility] [address] [place] [address] 03/02/2025 9:00 AM EDT PACE Attendance[facility] [place] [facility] [address] [place] [phone] 03/04/2025 9:00 AM EDT PACE Attendance[facility] [place] [facility] [address] [place] [address] 03/09/2025 9:00 AM EDT PACE Attendance[facility] [place] [facility] [address] [place] [address] 03/11/2025 9:00 AM EDT PACE Attendance[facility] [place] [facility] [address] [place] [phone] 03/16/2025 9:00 AM EDT P[facility] Att[facility] [place] [facility] [address] [place] [address] 03/18/2025 9:00 AM EDT P[facility] Attend[facility] [place] [facility] [address] [place] [address] 03/23/2025 9:00 AM EDT P[facility] Attend[facility] [place] [facility] [address] [place] [address] 03/25/2025 9:00 AM EDT P[facility] Attend[facility] [place] [facility] [address] [place] [address] 03/30/2025 9:00 AM EDT PACE Attendance[facility] [place] [facility] [address] [place] [address] 04/01/2025 9:00 AM EDT P[facility] Attendance[facility] [place] [facility] [address] [place] [address] 04/06/2025 9:00 AM EDT PACE Attendance[facility] [place] [facility] [address] [place] [address] 04/08/2025 9:00 AM EDT PACE Attendance[facility] [place] [facility] [address] [place] [phone] 04/13/2025 9:00 AM EDT PACE Attendance[facility] [place] [facility] [address] [place] [phone] 04/15/2025 9:00 AM EDT PACE Attendance[facility] [place] [facility] [address] [place] [phone] 04/20/2025 9:00 AM EDT PACE Attendance[facility] [place] [facility] [address] [place] [address] 04/22/2025 9:00 AM EDT P[facility] Att[facility] [place] [facility] [address] [place] [phone] 04/27/2025 9:00 AM EST PACE Attend[facility] [place] [facility] [address] [place] [phone] 04/29/2025 9:00 AM EST PACE Attend[facility] [place] [facility] [address] [place] [phone] 05/04/2025 9:00 AM EST PACE Attendance[facility] [place] [facility] [address] [place] [address] 05/06/2025 9:00 AM EST PACE Attend[facility] [place] [facility] [address] [place] [address] 05/11/2025 9:00 AM EST PACE Attend[facility] [place] [facility] [address] [place] [address] 05/13/2025 9:00 AM EST PACE Attend[facility] [place] [facility] [address] [place] [address] 05/18/2025 9:00 AM EST P[facility] Attend[facility] [place] [facility] [address] [place] [address] 05/20/2025 9:00 AM EST P[facility] Attend[facility] [place] [facility] [address] [place] [address] 05/25/2025 9:00 AM EST P[facility] Attend[facility] [place] [facility] [address] [place] [phone] 05/27/2025 9:00 AM EST PACE Attend[facility] [place] [facility] [address] [place] [phone] 06/01/2025 9:00 AM EST PACE Attend[facility] [place] [facility] [address] [place] [address] 06/03/2025 9:00 AM EST PACE Attend[facility] [place] [facility] [address] [place] [address] 06/08/2025 9:00 AM EST PACE Attend[facility] [place] [facility] [address] [place] [address] 06/10/2025 9:00 AM EST PACE Attendance[facility] [place] [facility] [address] [place] [address] 06/15/2025 9:00 AM EST PACE Attendance[facility] [place] [facility] [address] [place] [address] 06/17/2025 9:00 AM EST PACE Attendance[facility] [place] [facility] [address] [place] [address] 06/22/2025 9:00 AM EST PACE Attend[facility] [place] [facility] [address] [place] [address] 06/24/2025 9:00 AM EST PACE Attend[facility] [place] [facility] [address] [place] [address] 06/29/2025 9:00 AM EST PACE Attend[facility] [place] [facility] [address] [place] [phone] 07/01/2025 9:00 AM EST PACE Att[facility] [place] [facility] [address] [place] [phone] 07/06/2025 9:00 AM EST PACE Att[facility] [place] [facility] [address] [place] [phone] 2025 9:00 AM EST PACE Attendance[facility] [place] [facility] [address] [place] [phone] 07/13/2025 9:00 AM EST PACE Attend[facility] [place] [facility] [address] [place] [address] 07/15/2025 9:00 AM EST PACE Attend[facility] [place] [facility] [address] [place] [address] 07/20/2025 9:00 AM EST PACE Attend[facility] [facility] [place] [facility] [address] [place] [address] 07/22/2025 9:00 AM EST PACE Attendance/[place] [facility] [place] [facility] [address] [place] [address] 07/27/2025 9:00 AM EST [facility] [place] [facility] [address] [place] [phone] 07/29/2025 9:00 AM EST PACE [facility] [place] [facility] [address] [address] 08/03/2025 9:00 AM EST PACE Att[facility] Day [address] [address] documented as of this encounter Visit Diagnoses Not on filedocumented in this encounter Care Teams Janitor Supervisor Relationship Specialty Start Date End Date Dede Pimentel NP [address] [place] [id number] PCP - General Family Medicine 05/02/24 documented as of this encounter
--- OUTSIDE RECORDS SUMMARY | 2024-10-16 21:19 | XMS_ITS | Encounter Summary ---
Author Organization [facility] Address [address] [place] [address] Care Team Providers [place] Nurse Name Role Phone Dede Pimentel COUPLER Primary Care Provider [phone] Encounter Details Date Type Department Care Team (Late st Contact Info) Description 07/23/2024 Lab Requisition [facility] - Main Lab [address] [place] [address] Elvira Damon MD [address] [facility] [address] [place] [address] Hematuria, unspecified Social History Tobacco [...] [facility] [address] [place] [address] Shawna Lebron 10/17/2024 9:00 AM EDT Consult [facility] [address] [place] [address] 10/18/2024 7:30 AM EDT PACE Home Care / PACE Home Visit [facility] [place] [facility] [address] [place] [address] Jhoana Grijalva 10/19/2024 7:30 AM EDT PACE Home Care / [facility] Home Visit [facility] [place] [facility] [address] [place] [phone] Jhoana Grijalva 10/20/2024 7:30 AM EDT PACE Home Care / [facility] Home Visit [facility] [place] [facility] [address] [place] [phone] Cheryle Pryor 10/20/2024 9:00 AM EDT [facility] Att[facility] [facility] [place] [facility] [address] [place] [address] 10/20/2024 9:00 AM EDT Consult [facility] [place] [address] [place] [address] 10/21/2024 7:30 AM EDT PACE Home Care / [facility] Home Visit [facility] [place] [facility] [address] [place] [phone] Cheryle Pryor 10/21/2024 9:00 AM EDT Consult [facility] [place] [address] [place] [address] 10/21/2024 10:30 AM EDT PACE Home Care / [facility] Home Visit [facility] [place] [facility] [address] [place] [address] Cheryle Pryor 10/22/2024 7:30 AM EDT PACE Home Care / [facility] Home Visit [facility] [place] [facility] [address] [place] [address] Shawna Lebron 10/22/2024 9:00 AM EDT PACE Attendance[facility] [place] [facility] [address] [place] [address] 10/22/2024 9:00 AM EDT Consult [facility] [place] [address] [place] [address] 10/23/2024 7:30 AM EDT PACE Home Care / PACE Home Visit [facility] [place] [facility] [address] [place] [address] Cheryle Pryor 10/23/2024 9:00 AM EDT Consult [facility] [place] [address] [place] [address] 10/24/2024 7:30 AM EDT PACE Home Care / PACE Home Visit [facility] [place] [facility] [address] [place] [address] Shawna Lebron 10/24/2024 9:00 AM EDT Consult [facility] [place] [address] [place] [address] 10/25/2024 7:30 AM EDT PACE Home Care / PACE Home Visit [facility] [place] [facility] [address] [place] [address] Cheryle Pryor 10/26/2024 7:15 AM EDT PACE Home Care / PACE Home Visit [facility] [place] [facility] [address] [place] [phone] Cheryle Pryor 10/27/2024 7:30 AM EDT PACE Home Care / PACE Home Visit [facility] [place] [facility] [address] [place] [address] Cheryle Pryor 10/27/2024 9:00 AM EDT PACE Attendance[facility] [place] [facility] [address] [place] [address] 10/28/2024 7:30 AM EDT PACE Home Care / PACE Home Visit [facility] [place] [facility] [address] [place] [address] Cheryle Pryor 10/28/2024 10:30 AM EDT PACE Home Care / PACE Home Visit [facility] [place] [facility] [address] [place] [address] Cheryle Pryor 10/29/2024 7:30 AM EDT PACE Home Care / PACE Home Visit [facility] [place] [facility] [address] [place] [phone] Shawna Lebron 10/29/2024 9:00 AM EDT PACE Attendance/[facility] [place] [facility] [facility] [address] [place] [address] 10/30/2024 7:30 AM EDT PACE Home Care / PACE Home Visit [facility] [place] [facility] [address] [place] [phone] Cheryle Pryor 10/31/2024 7:30 AM EDT PACE Home Care / PACE Home Visit [facility] [place] [facility] [address] [place] [phone] Shawna Lebron 10/31/2024 10:30 AM EDT PACE Home Care / PACE Home Visit [facility] [place] [facility] [address] [place] [phone] Jhoana Grijalva 11/01/2024 7:30 AM EDT PACE Home Care / PACE Home Visit [facility] [place] [facility] [address] [place] [address] Jhoana Grijalva 11/02/2024 7:30 AM EDT PACE Home Care / PACE Home Visit [facility] [place] [facility] [address] [place] [phone] Jhoana Grijalva 11/03/2024 7:30 AM EDT PACE Home Care / PACE Home Visit [facility] [place] [facility] [address] [place] [phone] Cheryle Pryor 11/03/2024 9:00 AM EDT P[facility] Attendance[facility] [facility] [place] [facility] [address] [place] [phone] 11/04/2024 7:30 AM EDT PACE Home Care / PACE Home Visit [facility] [place] [facility] [address] [place] [phone] Cheryle Pryor 11/04/2024 10:30 AM EDT PACE Home Care / PACE Home Visit [facility] [place] [facility] [address] [place] [phone] Cheryle Pryor 11/05/2024 7:30 AM EDT PACE Home Care / PACE Home Visit [facility] [place] [facility] [address] [place] [phone] Shawna Lebron 11/05/2024 9:00 AM EDT PACE Attendance[facility] [facility] [place] [facility] [address] [place] [phone] 11/06/2024 7:30 AM EDT PACE Home Care / PACE Home Visit [facility] [place] [facility] [address] [place] [phone] Cheryle Pryor 11/06/2024 10:00 AM EDT Clinical Support [facility] [place] [address] [place] [phone] 11/07/2024 7:30 AM EDT PACE Home Care / PACE Home Visit [facility] [place] [facility] [address] [place] [phone] Shawna Lebron 11/07/2024 10:30 AM EDT PACE Home Care / [facility] Home Visit [facility] [place] [facility] [address] [place] [phone] Jhoana Grijalva 11/08/2024 7:30 AM EDT PACE Home Care / [facility] Visit [facility] [place] [facility] [address] [place] [phone] Cheryle Pryor 11/09/2024 7:30 AM EDT PACE Home Care / [facility] [place] [facility] [address] [place] [phone] Cheryle Pryor 11/10/2024 7:30 AM EDT PACE Home Care / [facility] Home Visit [facility] [place] [facility] [address] [place] [phone] Cheryle Pryor 11/10/2024 9:00 AM EDT [facility] Att[facility] [facility] [place] [facility] [address] [place] [phone] 11/10/2024 9:45 AM EDT Office Visit [facility] [address] [facility] [address] [address] Gemini Simmons MD [address] [facility] [address] [address] 11/11/2024 7:30 AM EDT PACE Home Care / [facility] Home Visit [facility] [place] [facility] [address] [place] [phone] Cheryle Pryor 11/11/2024 10:30 AM EDT PACE Home Care / [facility] Home Visit [facility] [place] [facility] [address] [place] [phone] Cheryle Pryor 11/12/2024 7:30 AM EDT PACE Home Care / [facility] Home Visit [facility] [place] [facility] [address] [place] [phone] Shawna Lebron 11/12/2024 9:00 AM EDT [facility] Att[facility] [facility] [place] [facility] [address] [place] [phone] 11/13/2024 7:30 AM EDT PACE Home Care / [place] Home Visit [facility] [place] [facility] [address] [place] [phone] Cheryle Pryor 11/14/2024 7:30 AM EDT PACE Home Care / [place] Home Visit [facility] [place] [facility] [address] [place] [phone] Shawna Lebron 11/14/2024 10:30 AM EDT PACE Home Care / P[place] Home Visit [facility] [place] [facility] [address] [place] [phone] Jhoana Grijalva 11/15/2024 7:30 AM EDT PACE Home Care / P[place] Home Visit [facility] [place] [facility] [address] [place] [phone] Jhoana Grijalva 11/16/2024 7:30 AM EDT PACE Home Care / P[place] Home Visit [facility] [place] [facility] [address] [place] [phone] Jhoana Grijalva 11/17/2024 7:30 AM EDT PACE Home Care / [facility] Home Visit [facility] [place] [facility] [address] [place] [phone] Cheryle Pryor 11/17/2024 9:00 AM EDT PACE Attendance[place] [facility] [place] [facility] [address] [place] [phone] 11/18/2024 7:30 AM EDT PACE Home Care / [place] Home Visit [facility] [place] [facility] [address] [place] [phone] Cheryle Pryor 11/18/2024 10:30 AM EDT PACE Home Care / PACE Home Visit [facility] [place] [facility] [address] [place] [phone] Cheryle Pryor 11/19/2024 7:30 AM EDT PACE Home Care / PACE Home Visit [facility] [place] [facility] [address] [place] [phone] Shawna Lebron 11/19/2024 9:00 AM EDT PACE Attendance[facility] [facility] [place] [address] [place] [phone] 11/20/2024 7:30 AM EDT PACE Home Care / PACE Home Visit [facility] [place] [facility] [address] [place] [phone] Cheryle Pryor 11/21/2024 7:30 AM EDT PACE Home Care / PACE Home Visit [facility] [place] [facility] [address] [place] [phone] Shawna Lebron 11/21/2024 10:30 AM EDT PACE Home Care / PACE Home Visit [facility] [place] [facility] [address] [place] [phone] Jhoana Grijalva 11/22/2024 7:30 AM EDT PACE Home Care / [facility] Visit [facility] [place] [facility] [address] [place] [phone] Cheryle Pryor 11/23/2024 7:30 AM EDT PACE Home Care / [facility] Home Visit [facility] [place] [facility] [address] [place] [phone] Cheryle Pryor 11/24/2024 7:30 AM EDT PACE Home Care / [facility] Visit [facility] [place] [facility] [address] [place] [phone] Cheryle Pryor 11/24/2024 9:00 AM EDT PACE Attendance[facility] [facility] [place] [facility] [facility] [address] [place] [address] 11/25/2024 7:30 AM EDT PACE Home Care / [facility] Home Visit [facility] [place] [facility] [address] [place] [phone] Cheryle Pryor 11/25/2024 10:30 AM EDT PACE Home Care / [facility] Home Visit [facility] [place] [facility] [address] [place] [phone] Cheryle Pryor 11/26/2024 7:30 AM EDT PACE Home Care / P[facility] Home Visit [facility] [place] [facility] [address] [place] [phone] Shawna Lebron 11/26/2024 9:00 AM EDT PACE Attendance/[place] [facility] [place] [address] [place] [phone] 11/27/2024 7:30 AM EDT PACE Home Care / PACE Home Visit [facility] [place] [facility] [address] [place] [phone] Cheryle Pryor 11/28/2024 7:30 AM EDT PACE Home Care / [facility] Home Visit [facility] [place] [facility] [address] [place] [phone] Shawna Lebron 11/28/2024 10:30 AM EDT PACE Home Care / [facility] Home Visit [facility] [place] [facility] [address] [place] [phone] Jhoana Grijalva 11/29/2024 7:30 AM EDT PACE Home Care / [place] Home Visit [facility] [place] [facility] [address] [place] [phone] Jhoana Grijalva 11/30/2024 7:30 AM EDT PACE Home Care / [place] Home Visit [facility] [place] [facility] [address] [place] [phone] Jhoana Grijalva 12/01/2024 7:30 AM EDT PACE Home Care / [place] [facility] Visit [facility] [place] [facility] [address] [place] [phone] Cheryle Pryor 12/01/2024 9:00 AM EDT PACE Attendance[facility] [facility] [place] [facility] [address] [place] [address] 12/02/2024 7:30 AM EDT PACE Home Care / [place] Home Visit [facility] [place] [facility] [address] [place] [phone] Cheryle Pryor 12/03/2024 7:30 AM EDT PACE Home Care / [place] Home Visit [facility] [place] [facility] [address] [place] [phone] Shawna Lebron 12/03/2024 9:00 AM EDT P[place] Attendance[place] [facility] [place] [facility] [address] [place] [phone] 12/04/2024 7:30 AM EDT PACE Home Care / [facility] [facility] Visit [facility] [place] [facility] [address] [place] [phone] Cheryle Pryor 12/05/2024 7:30 AM EDT PACE Home Care / [place] [facility] Visit [facility] [place] [facility] [address] [place] [phone] Shawna Lebron 12/05/2024 10:30 AM EDT PACE Home Care / [place] [facility] [place] [facility] [address] [place] [phone] Jhoana Grijalva 12/06/2024 7:30 AM EDT PACE Home Care / PACE Home Visit [facility] [place] [facility] [address] [place] [phone] Cheryle Pryor 12/07/2024 7:30 AM EDT PACE Home Care / PACE Home Visit [facility] [place] [facility] [address] [place] [phone] Cheryle Pryor 12/08/2024 9:00 AM EDT [facility] Att[facility]ance[facility] [place] [facility] [place] [facility] [address] [place] [phone] 12/10/2024 9:00 AM EDT P[facility] Att[facility] [facility] [place] [facility] [address] [place] [phone] 12/15/2024 9:00 AM EDT P[facility] Att[facility] [place] [facility] [address] [place] [phone] 12/17/2024 9:00 AM EDT P[facility] Attend[facility] [place] [facility] [address] [place] [phone] 12/22/2024 9:00 AM EDT P[facility] Att[facility] [place] [facility] [address] [place] [phone] 12/24/2024 9:00 AM EDT P[facility] Attend[facility] [place] [facility] [address] [place] [phone] 12/29/2024 9:00 AM EDT P[facility] Attend[facility] [place] [facility] [address] [place] [phone] 12/31/2024 9:00 AM EDT P[facility] [place] [facility] [address] [place] [phone] 01/05/2025 9:00 AM EDT P[facility] Att[facility] [place] [facility] [address] [place] [phone] 01/07/2025 9:00 AM EDT PACE Attendance/[facility] [place] [facility] [address] [place] [phone] 01/12/2025 9:00 AM EDT PACE Attendance[facility] [place] [facility] [address] [place] [phone] 01/14/2025 9:00 AM EDT PACE Attendance[facility] [place] [facility] [address] [place] [address] 01/19/2025 9:00 AM EDT PACE Attendance[facility] [place] [facility] [address] [place] [phone] 01/21/2025 9:00 AM EDT PACE Attendance[facility] [place] [facility] [address] [place] [phone] 01/26/2025 9:00 AM EDT PACE Attendance[facility] [place] [facility] [address] [place] [phone] 01/28/2025 9:00 AM EDT PACE Attendance[facility] [place] [facility] [address] [place] [phone] 02/02/2025 9:00 AM EDT P[facility] Att[facility] [place] [facility] [address] [place] [phone] 02/04/2025 9:00 AM EDT P[facility] Attend[facility] [place] [facility] [address] [place] [phone] 02/09/2025 9:00 AM EDT P[place] Attend[facility] [place] [facility] [address] [place] [phone] 02/11/2025 9:00 AM EDT P[facility] Attend[facility] [place] [facility] [address] [place] [phone] 02/16/2025 9:00 AM EDT P[facility] Attend[facility] [place] [facility] [address] [place] [address] 02/18/2025 9:00 AM EDT P[facility] Attend[facility] [place] [facility] [address] [place] [phone] 02/23/2025 9:00 AM EDT P[facility] Attend[facility] [place] [facility] [address] [place] [phone] 02/25/2025 9:00 AM EDT PACE Attendance[facility] [place] [facility] [address] [place] [phone] 03/02/2025 9:00 AM EDT PACE Attendance[facility] [place] [facility] [address] [place] [phone] 03/04/2025 9:00 AM EDT P[facility] Attend[facility] [place] [facility] [address] [place] [phone] 03/09/2025 9:00 AM EDT P[facility] Attend[facility] [place] [facility] [address] [place] [phone] 03/11/2025 9:00 AM EDT P[facility] Attend[facility] [place] [facility] [address] [place] [phone] 03/16/2025 9:00 AM EDT P[facility] Attend[facility] [place] [facility] [address] [place] [phone] 03/18/2025 9:00 AM EDT P[facility] Attend[facility] [place] [facility] [address] [place] [phone] 03/23/2025 9:00 AM EDT P[facility] Att[facility] [place] [facility] [address] [place] [phone] 03/25/2025 9:00 AM EDT PACE Attendance[facility] [place] [facility] [address] [place] [phone] 03/30/2025 9:00 AM EDT P[facility] Att[facility] [place] [facility] [address] [place] [address] 04/01/2025 9:00 AM EDT PACE Attendance[facility] [place] [facility] [address] [place] [address] 04/06/2025 9:00 AM EDT PACE Attendance[facility] [place] [facility] [address] [place] [phone] 04/08/2025 9:00 AM EDT PACE Attendance[facility] [place] [facility] [address] [place] [address] 04/13/2025 9:00 AM EDT PACE Attendance[facility] [place] [facility] [address] [place] [phone] 04/15/2025 9:00 AM EDT PACE Attendance[facility] [place] [facility] [address] [place] [phone] 04/20/2025 9:00 AM EDT P[facility] Att[facility] [place] [facility] [address] [place] [phone] 04/22/2025 9:00 AM EDT P[facility] Attend[facility] [place] [facility] [address] [place] [address] 04/27/2025 9:00 AM EST PACE Attendance[facility] [place] [facility] [address] [place] [address] 04/29/2025 9:00 AM EST PACE Attend[facility] [place] [facility] [address] [place] [phone] 05/04/2025 9:00 AM EST PACE Attendance[facility] [place] [facility] [address] [place] [address] 05/06/2025 9:00 AM EST PACE Attendance[facility] [facility] [place] [facility] [address] [place] [address] 05/11/2025 9:00 AM EST PACE Attendance[facility] [place] [facility] [address] [place] [address] 05/13/2025 9:00 AM EST PACE Attend[facility] [place] [facility] [address] [place] [phone] 05/18/2025 9:00 AM EST [facility] [place] [facility] [address] [place] [phone] 05/20/2025 9:00 AM EST PACE Attend[facility] [place] [facility] [address] [place] [phone] 05/25/2025 9:00 AM EST [facility] [place] [facility] [address] [place] [phone] 05/27/2025 9:00 AM EST [facility] [place] [facility] [address] [place] [phone] 06/01/2025 9:00 AM EST P[facility] Attend[facility] [place] [facility] [address] [place] [phone] 06/03/2025 9:00 AM EST P[facility] [facility] [place] [facility] [address] [place] [phone] 06/08/2025 9:00 AM EST P[facility] Attend[facility] [facility] [place] [facility] [address] [place] [phone] 06/10/2025 9:00 AM EST P[facility] Attendance[facility] [place] [facility] [address] [place] [address] 06/15/2025 9:00 AM EST PACE Attend[facility] [place] [facility] [address] [place] [address] 06/17/2025 9:00 AM EST P[facility] [place] [facility] [address] [place] [phone] 06/22/2025 9:00 AM EST PACE Attendance[facility] [place] [facility] [address] [place] [phone] 06/24/2025 9:00 AM EST PACE Attendance[facility] [place] [facility] [address] [place] [phone] 06/29/2025 9:00 AM EST PACE Attendance[facility] [place] [facility] [address] [place] [phone] 07/01/2025 9:00 AM EST PACE Attend[facility] [place] [facility] [address] [place] [phone] 07/06/2025 9:00 AM EST PACE Attendance[facility] [place] [facility] [address] [place] [phone] 2025 9:00 AM EST [facility] [place] [facility] [address] [place] [phone] 07/13/2025 9:00 AM EST [facility] [place] [facility] [address] [place] [phone] 07/15/2025 9:00 AM EST P[facility] [place] [facility] [address] [place] [phone] 07/20/2025 9:00 AM EST PACE [facility] [place] [facility] [address] [place] [phone] 07/22/2025 9:00 AM EST [facility] [place] [facility] [address] [place] [phone] 07/27/2025 9:00 AM EST PACE [facility] Day [address] [address] 07/29/2025 9:00 AM EST PACE [facility]endance[facility] Day [address] [phone] 08/03/2025 9:00 AM EST PACE [facility] [address] [phone] documented as of this encounter Procedures Procedure [...] scant material received may not be fully life assurance representative of the endometrium. Clinical correlation is recommended. 07/24/2024 11:07 AM [facility] Clinical Information Hematuria (? PMB) 07/24/2024 11:07 AM [facility] Gross Description A. Endometrium, biopsy: Labeled with the patient's name and information. Received in formalin is an approximately 0.2 x 0.1 x 0.1 cm aggregate of soft to mucoid, white tissue fragments, which is wrapped in paper and submitted in toto in one cassette, multiple pieces, x2. Please note: Small tissue fragments may not survive processing. [email or web address] 07/24/2024 11:07 AM EST [facility] Disclaimer Unless otherwise specified, all tissue is 10% NB formalin fixed and paraffin embedded. 07/24/2024 11:07 AM EST [facility] Tissue Endometrial structure / Unknown 07/22/2024 07/23/2024 7:03 AM EST us Elvira Damon MD LAB PATHOLOGY ORDERABLES Final Result [facility] [address] [place] [address], documented in this encounter Visit Diagnoses Diagnosis Hematuria, unspecified documented in this encounter Care Teams County Nurse Relationship Specialty Start Date End Date Dede Pimentel NP [address] [place] [id number] PCP - General Family Medicine 05/02/24 documented as of this encounter
--- OUTSIDE RECORDS SUMMARY | 2024-10-16 21:19 | XMS_ITS | Encounter Summary ---
Author Organization [facility] Address [address] [place] [address] Care Team Providers Care Child Development Specialist Name Role Phone Eleazar Gleason MD Primary Care Provider [phone] Encounter Details Date Type Department Care Team (Late st Contact Info) Description 04/16/2024 11:39 AM EDT Hospital Encounter TH HISTORIC ENCOUNTERS EASTERN CONVERSION ONLY Wale Pimentel, TAYA [address] [facility] 1 [place] [address] Social History Tobacco Use Types Packs/Day Years [...] [facility] [address] [place] [address] Shawna Lebron 10/17/2024 9:00 AM EDT Consult [facility] [address] [place] [address] 10/18/2024 7:30 AM EDT P[facility] Home Care / [facility] Home Visit [facility] [place] [facility] [address] [place] [address] Jhoana Grijalva 10/19/2024 7:30 AM EDT PACE Home Care / [facility] Home Visit [facility] [place] [facility] [address] [place] [address] Jhoana Grijalva 10/20/2024 7:30 AM EDT PACE Home Care / [facility] Home Visit [facility] [place] [facility] [address] [place] [address] Cheryle Pryor 10/20/2024 9:00 AM EDT [facility] [facility] [place] [facility] [address] [place] [address] 10/20/2024 9:00 AM EDT Consult [facility] [place] [address] [place] [address] 10/21/2024 7:30 AM EDT PACE Home Care / [facility] [place] [facility] [address] [place] [address] Cheryle Pryor 10/21/2024 9:00 AM EDT Consult [facility] [place] [address] [place] [address] 10/21/2024 10:30 AM EDT PACE Home Care / [facility] [place] [facility] [address] [place] [address] Cheryle Pryor 10/22/2024 7:30 AM EDT PACE Home Care / [facility] [place] [facility] [address] [place] [address] Shawna Lebron 10/22/2024 9:00 AM EDT [facility] Att[facility] [facility] [place] [facility] [address] [place] [address] 10/22/2024 9:00 AM EDT Consult [facility] [place] [address] [place] [address] 10/23/2024 7:30 AM EDT PACE Home Care / [facility] Home Visit [facility] [place] [facility] [address] [place] [address] Cheryle Pryor 10/23/2024 9:00 AM EDT Consult [facility] [place] [address] [place] [address] 10/24/2024 7:30 AM EDT PACE Home Care / [facility] [place] [facility] [address] [place] [address] Shawna Lebron 10/24/2024 9:00 AM EDT Consult [facility] [place] [address] [place] [address] 10/25/2024 7:30 AM EDT PACE Home Care / [facility] [place] [facility] [address] [place] [address] Cheryle Pryor 10/26/2024 7:15 AM EDT PACE Home Care / [facility] Home Visit [facility] [place] [facility] [address] [place] [address] Cheryle Pryor 10/27/2024 7:30 AM EDT PACE Home Care / [facility] Home Visit [facility] [place] [facility] [address] [place] [address] Cheryle Pryor 10/27/2024 9:00 AM EDT [facility] [facility] [place] [facility] [address] [place] [address] 10/28/2024 7:30 AM EDT PACE Home Care / [facility] [place] [facility] [address] [place] [address] Cheryle Pryor 10/28/2024 10:30 AM EDT PACE Home Care / [facility] [place] [facility] [address] [place] [address] Cheryle Pryor 10/29/2024 7:30 AM EDT PACE Home Care / [facility] [place] [facility] [address] [place] [address] Shawna Lebron 10/29/2024 9:00 AM EDT [facility] [place] [facility] [address] [place] [address] 10/30/2024 7:30 AM EDT PACE Home Care / [facility] [address] [place] [address] Cheryle Pryor 10/31/2024 7:30 AM EDT PACE Home Care / [facility] [place] [facility] [address] [place] [address] Shawna Lebron 10/31/2024 10:30 AM EDT PACE Home Care / [facility] [place] [facility] [address] [place] [address] Jhoana Grijalva 11/01/2024 7:30 AM EDT PACE Home Care / [facility] [place] [facility] [address] [place] [address] Jhoana Grijalva 11/02/2024 7:30 AM EDT PACE Home Care / [facility] [place] [facility] [address] [place] [address] Jhoana Grijalva 11/03/2024 7:30 AM EDT PACE Home Care / [facility] [place] [facility] [address] [place] [address] Cheryle Pryor 11/03/2024 9:00 AM EDT [facility] [place] [facility] [address] [place] [address] 11/04/2024 7:30 AM EDT PACE Home Care / [facility] [place] [facility] [address] [place] [address] Cheryle Pryor 11/04/2024 10:30 AM EDT PACE Home Care / [facility] [place] [facility] [address] [place] [address] Cheryle Pryor 11/05/2024 7:30 AM EDT PACE Home Care / [facility] [place] [facility] [address] [place] [address] Shawna Lebron 11/05/2024 9:00 AM EDT [facility] [place] [facility] [address] [place] [address] 11/06/2024 7:30 AM EDT PACE Home Care / [facility] [place] [facility] [address] [place] [address] Cheryle Pryor 11/06/2024 10:00 AM EDT Clinical Support [facility] [place] [address] [place] [address] 11/07/2024 7:30 AM EDT PACE Home Care / [facility] [place] [facility] [address] [place] [address] Shawna Lebron 11/07/2024 10:30 AM EDT PACE Home Care / [facility] [place] [facility] [address] [place] [address] Jhoana Grijalva 11/08/2024 7:30 AM EDT PACE Home Care / [facility] [place] [facility] [address] [place] [address] Cheryle Pryor 11/09/2024 7:30 AM EDT PACE Home Care / [facility] [place] [facility] [address] [place] [address] Cheryle Pryor 11/10/2024 7:30 AM EDT PACE Home Care / [facility] [place] [facility] [address] [place] [address] Cheryle Pryor 11/10/2024 9:00 AM EDT [facility] [place] [facility] [address] [place] [address] 11/10/2024 9:45 AM EDT Office Visit [facility] [address] [address] Gemini Simmons MD [address] [address] 11/11/2024 7:30 AM EDT PACE Home Care / [facility] [place] [facility] [address] [place] [address] Cheryle Pryor 11/11/2024 10:30 AM EDT PACE Home Care / [facility] [place] [facility] [address] [place] [address] Cheryle Pryor 11/12/2024 7:30 AM EDT PACE Home Care / [facility] [place] [facility] [address] [place] [address] Shawna Lebron 11/12/2024 9:00 AM EDT [facility] [place] [facility] [address] [place] [address] 11/13/2024 7:30 AM EDT PACE Home Care / [facility] Visit [facility] [place] [facility] [address] [place] [address] Cheryle Pryor 11/14/2024 7:30 AM EDT PACE Home Care / [facility] [place] [facility] [address] [place] [address] Shawna Lebron 11/14/2024 10:30 AM EDT PACE Home Care / [facility] [place] [facility] [address] [place] [address] Jhoana Grijalva 11/15/2024 7:30 AM EDT PACE Home Care / [facility] [place] [facility] [address] [place] [address] Jhoana Grijalva 11/16/2024 7:30 AM EDT PACE Home Care / [facility] [place] [facility] [address] [place] [address] Jhoana Grijalva 11/17/2024 7:30 AM EDT PACE Home Care / [facility] [place] [facility] [address] [place] [address] Cheryle Pryor 11/17/2024 9:00 AM EDT [facility] [facility] [place] [facility] [address] [place] [address] 11/18/2024 7:30 AM EDT PACE Home Care / [facility] Home Visit [facility] [place] [facility] [address] [place] [address] Cheryle Pryor 11/18/2024 10:30 AM EDT PACE Home Care / [facility] Visit [facility] [place] [facility] [address] [place] [address] Cheryle Pryor 11/19/2024 7:30 AM EDT PACE Home Care / [facility] Visit [facility] [place] [facility] [address] [place] [address] Shawna Lebron 11/19/2024 9:00 AM EDT [facility] Att[facility] [facility] [place] [facility] [address] [place] [address] 11/20/2024 7:30 AM EDT PACE Home Care / [facility] Visit [facility] [place] [facility] [address] [place] [address] Cheryle Pryor 11/21/2024 7:30 AM EDT PACE Home Care / [facility] Home Visit [facility] [place] [facility] [address] [place] [address] Shawna Lebron 11/21/2024 10:30 AM EDT PACE Home Care / [facility] Visit [facility] [place] [facility] [address] [place] [address] Jhoana Grijalva 11/22/2024 7:30 AM EDT PACE Home Care / [facility] Visit [facility] [place] [facility] [address] [place] [address] Cheryle Pryor 11/23/2024 7:30 AM EDT PACE Home Care / [facility] Visit [facility] [place] [facility] [address] [place] [address] Cheryle Pryor 11/24/2024 7:30 AM EDT PACE Home Care / [facility] Visit [facility] [place] [facility] [address] [place] [address] Cheryle Pryor 11/24/2024 9:00 AM EDT [facility] Att[facility] [facility] [place] [facility] [address] [place] [address] 11/25/2024 7:30 AM EDT PACE Home Care / [facility] [place] [facility] [address] [place] [address] Cheryle Pryor 11/25/2024 10:30 AM EDT PACE Home Care / [facility] Visit [facility] [place] [facility] [address] [place] [address] Cheryle Pryor 11/26/2024 7:30 AM EDT PACE Home Care / [facility] [place] [facility] [address] [place] [address] Shawna Lebron 11/26/2024 9:00 AM EDT [facility] [place] [facility] [address] [place] [address] 11/27/2024 7:30 AM EDT PACE Home Care / [facility] [address] [place] [address] Cheryle Pryor 11/28/2024 7:30 AM EDT PACE Home Care / [facility] [place] [facility] [address] [place] [address] Shawna Lebron 11/28/2024 10:30 AM EDT PACE Home Care / [facility] Visit [facility] [place] [facility] [address] [place] [address] Jhoana Grijalva 11/29/2024 7:30 AM EDT PACE Home Care / [facility] Visit [facility] [place] [facility] [address] [place] [address] Jhoana Grijalva 11/30/2024 7:30 AM EDT PACE Home Care / [facility] Home Visit [facility] [place] [facility] [address] [place] [address] Jhoana Grijalva 12/01/2024 7:30 AM EDT PACE Home Care / [facility] Home Visit [facility] [place] [facility] [address] [place] [address] Cheryle Pryor 12/01/2024 9:00 AM EDT [facility] [facility] [place] [facility] [address] [place] [address] 12/02/2024 7:30 AM EDT PACE Home Care / [facility] [place] [facility] [address] [place] [address] Cheryle Pryor 12/03/2024 7:30 AM EDT PACE Home Care / [facility] [place] [facility] [address] [place] [address] Shawna Lebron 12/03/2024 9:00 AM EDT [facility] [place] [facility] [address] [place] [address] 12/04/2024 7:30 AM EDT PACE Home Care / [facility] [place] [facility] [address] [place] [address] Cheryle Pryor 12/05/2024 7:30 AM EDT PACE Home Care / [facility] Visit [facility] [place] [facility] [address] [place] [address] Shawna Lebron 12/05/2024 10:30 AM EDT PACE Home Care / [facility] Visit [facility] [place] [facility] [address] [place] [address] Jhoana Grijalva 12/06/2024 7:30 AM EDT PACE Home Care / [facility] [place] [facility] [address] [place] [address] Cheryle Pryor 12/07/2024 7:30 AM EDT PACE Home Care / [facility] [address] [place] [address] Cheryle Pryor 12/08/2024 9:00 AM EDT [facility] [place] [facility] [address] [place] [address] 12/10/2024 9:00 AM EDT [facility] [place] [facility] [address] [place] [address] 12/15/2024 9:00 AM EDT [facility] [place] [facility] [address] [place] [address] 12/17/2024 9:00 AM EDT [facility] Att[facility] [place] [facility] [address] [place] [address] 12/22/2024 9:00 AM EDT [facility] [place] [facility] [address] [place] [address] 12/24/2024 9:00 AM EDT [facility] Att[facility] [place] [facility] [address] [place] [address] 12/29/2024 9:00 AM EDT [facility] [place] [facility] [address] [place] [address] 12/31/2024 9:00 AM EDT [facility] [place] [facility] [address] [place] [address] 01/05/2025 9:00 AM EDT [facility] Attend[facility] [place] [facility] [address] [place] [address] 01/07/2025 9:00 AM EDT [facility] [place] [facility] [address] [place] [address] 01/12/2025 9:00 AM EDT [facility] [place] [facility] [address] [place] [address] 01/14/2025 9:00 AM EDT [facility] [place] [facility] [address] [place] [address] 01/19/2025 9:00 AM EDT [facility] [place] [facility] [address] [place] [address] 01/21/2025 9:00 AM EDT [facility] [place] [facility] [address] [place] [address] 01/26/2025 9:00 AM EDT [facility] [place] [facility] [address] [place] [address] 01/28/2025 9:00 AM EDT [facility] [place] [facility] [address] [place] [address] 02/02/2025 9:00 AM EDT P[facility] [place] [facility] [address] [place] [address] 02/04/2025 9:00 AM EDT [facility] [place] [facility] [address] [place] [address] 02/09/2025 9:00 AM EDT [facility] [place] [facility] [address] [place] [address] 02/11/2025 9:00 AM EDT [facility] [place] [facility] [address] [place] [address] 02/16/2025 9:00 AM EDT [facility] [place] [facility] [address] [place] [address] 02/18/2025 9:00 AM EDT [facility] [place] [facility] [address] [place] [address] 02/23/2025 9:00 AM EDT [facility] Att[facility] [place] [facility] [address] [place] [address] 02/25/2025 9:00 AM EDT [facility] [place] [facility] [address] [place] [address] 03/02/2025 9:00 AM EDT [facility] [place] [facility] [address] [place] [address] 03/04/2025 9:00 AM EDT [facility] [place] [facility] [address] [place] [address] 03/09/2025 9:00 AM EDT [facility] Att[facility] [place] [facility] [address] [place] [address] 03/11/2025 9:00 AM EDT [facility] Att[facility] [place] [facility] [address] [place] [address] 03/16/2025 9:00 AM EDT [facility] Att[facility] [place] [facility] [address] [place] [address] 03/18/2025 9:00 AM EDT [facility] Att[facility] [place] [facility] [address] [place] [address] 03/23/2025 9:00 AM EDT [facility] Attend[facility] [place] [facility] [address] [place] [address] 03/25/2025 9:00 AM EDT [facility] [place] [facility] [address] [place] [address] 03/30/2025 9:00 AM EDT [facility] [place] [facility] [address] [place] [address] 04/01/2025 9:00 AM EDT [facility] [place] [facility] [address] [place] [address] 04/06/2025 9:00 AM EDT [facility]end[facility] [place] [facility] [address] [place] [address] 04/08/2025 9:00 AM EDT [facility] [place] [facility] [address] [place] [address] 04/13/2025 9:00 AM EDT [facility] [place] [facility] [address] [place] [address] 04/15/2025 9:00 AM EDT [facility] [place] [facility] [address] [place] [address] 04/20/2025 9:00 AM EDT [facility] [place] [facility] [address] [place] [address] 04/22/2025 9:00 AM EDT [facility] [place] [facility] [address] [place] [address] 04/27/2025 9:00 AM EST [facility] [place] [facility] [address] [place] [address] 04/29/2025 9:00 AM EST [facility] Att[facility] [place] [facility] [address] [place] [address] 05/04/2025 9:00 AM EST [facility] Attend[facility] [place] [facility] [address] [place] [address] 05/06/2025 9:00 AM EST [facility] Attend[facility] [place] [facility] [address] [place] [address] 05/11/2025 9:00 AM EST [facility] Attend[facility] [place] [facility] [address] [place] [address] 05/13/2025 9:00 AM EST [facility] Attend[facility] [place] [facility] [address] [place] [address] 05/18/2025 9:00 AM EST [facility] [place] [facility] [address] [place] [address] 05/20/2025 9:00 AM EST [facility] [place] [facility] [address] [place] [address] 05/25/2025 9:00 AM EST [facility] [place] [facility] [address] [place] [address] 05/27/2025 9:00 AM EST [facility] [place] [facility] [address] [place] [address] 06/01/2025 9:00 AM EST P[facility] Attend[facility] [place] [facility] [address] [place] [address] 06/03/2025 9:00 AM EST [facility] Attend[facility] [place] [facility] [address] [place] [address] 06/08/2025 9:00 AM EST [facility] [place] [facility] [address] [place] [address] 06/10/2025 9:00 AM EST [facility] Attend[facility] [place] [facility] [address] [place] [address] 06/15/2025 9:00 AM EST [facility] Attend[facility] [place] [facility] [address] [place] [address] 06/17/2025 9:00 AM EST P[facility] Attend[facility] [place] [facility] [address] [place] [address] 06/22/2025 9:00 AM EST P[facility] Attend[facility] [place] [facility] [address] [place] [address] 06/24/2025 9:00 AM EST P[facility] Att[facility] [place] [facility] [address] [place] [address] 06/29/2025 9:00 AM EST P[facility] Attend[facility] [place] [facility] [address] [place] [address] 07/01/2025 9:00 AM EST [facility] [place] [facility] [address] [place] [address] 07/06/2025 9:00 AM EST [facility] [place] [facility] [address] [place] [address] 2025 9:00 AM EST PACE Attendance[facility] [place] [facility] [address] [place] [address] 07/13/2025 9:00 AM EST P[facility] Att[facility] [place] [facility] [address] [place] [address] 07/15/2025 9:00 AM EST P[facility] Att[facility] [place] [facility] [address] [place] [address] 07/20/2025 9:00 AM EST P[facility] Att[facility] [place] [facility] [address] [place] [address] 07/22/2025 9:00 AM EST PACE Attendance/Day Center [facility] [address] [place] [address] 07/27/2025 9:00 AM EST PACE Attendance/Day Center [address] [address] 07/29/2025 9:00 AM EST PACE Attendance/Day Center [address] [address] 08/03/2025 9:00 AM EST PACE Attendance/Day Center [address] [address] documented as of this encounter Procedures Procedure [...] PM EDT Narrative 04/16/2024 3:54 PM EDT [facility] Diagnostic Imaging Department [address] [place] [address] [id number] Patient: ??LUCILA GRIFFITHS ?/Age/Sex: 1960 - 63 - F Unit#: ??[id number] ? Location/Status: ??SPDIGEN/REG CLI ? Mnemonic/Ordering Site: [...] Dic Date/Time: ??04/16/24 1549 Sign date/Time: ??04/16/24 1551 Procedure Note Berta Mock MD - 04/22/2024 [facility] Diagnostic Imaging Department [address] [place] [address] Patient: LUCILA GRIFFITHS Marino FoyB./Age/Sex: 1960 - 63 - F Unit#: [id number] Location/Status: SPDIGEN/REG CLI Mnemonic/Ordering Site: [facility]/SPDI Ordering [...] by: BERTA MOCK MD Dic Date/Time: 04/16/24 0399 Sign date/Time: 04/16/24 1468 us Wale Pimentel BOOKKEEPER ASSISTANT IMG XR PROCEDURES Final Resul t * CR SHOULDER LT MIN 2 VIEW (04/16/2024 3:49 PM EDT) Anatomical Region Laterality Modality Radiographic Edith ging 04/16/2024 12:2 2 PM EDT Narrative 04/16/2024 3:49 PM EDT [facility] Diagnostic Imaging Department [address] [place] [id number] Patient: ??LUCILA GRIFFITHS ?/Age/Sex: 1960 - 63 - F Unit#: ??[id number] ? Location/Status: ??SPDIGEN/REG CLI ? Mnemonic/Ordering Site: ??[facility]/SPDI Ordering Physician: ??WALE PIMENTEL CR Shoulder LT Min 2 View - 04/16/24 - 1238 Report Status:Signed History: Left shoulder pain since [...] No evidence of fracture. 2. Calcific tendinitis. [id number] Dictating Physician: ??BERTA MOCK MD Electronically Signed by: ??BERTA MOCK MD Dic Date/Time: ??04/16/24 1548 Sign date/Time: ??04/16/24 154 Procedure Note Berta Mock MD - 04/22/2024 [facility] Diagnostic Imaging Department [address] [place] [id number] Patient: LUCILA GRIFFITHS Marino Peterson/Age/Sex: 1960 - 63 - F Unit#: [id number] Location/Status: SPDIGEN/REG CLI Mnemonic/Ordering Site: [facility]/SPDI Ordering [...] No evidence of fracture. 2. Calcific tendinitis. [id number] Dictating Physician: BERTA MOCK MD Electronically Signed by: BERTA MOCK MD Dic Date/Time: 04/16/24 1548 Sign date/Time: 04/16/24 154 us Wale Pimentel BOOKKEEPER ASSISTANT IMG XR PROCEDURES Final Resul t documented in this encounter Visit Diagnoses Not on filedocumented in this encounter Care Teams Child Development Specialist Relationship Specialty Start Date End Date Eleazar Gleason MD [address] [address] PCP - General 04/11/24 05/01/24 documented as of this encounter
--- OUTSIDE RECORDS SUMMARY | 2024-10-16 21:19 | XMS_ITS | Encounter Summary ---
Author Organization [facility] Address [address] [place] [address] Care Team Providers Care Pants Maker Name Role Phone Eleazar Gleason MD Primary Care Provider [phone] Encounter Details Date Type Department Care Team [...] by Dr. Gleason. She was transported by [employer] and arrives three hours early for herappointment. [...] up with Dr. Gleason as scheduled at [facility]. She left the unit stable, ambulatory using rolling walker accompanied by the [facility] staff who has returned to pick patient up. documented in this encounter Plan of Treatment Upcoming Encounters Date Type Department Care Team (Late st Contact Info) Description 10/17/2024 7:30 AM EDT PACE Home Care / [facility] [address] [place] [phone] Shawna Lebron 10/17/2024 9:00 AM EDT Consult [facility] [address] [place] [phone] 10/18/2024 7:30 AM EDT PACE Home Care / [facility] [address] [place] [phone] Jhoana Grijalva 10/19/2024 7:30 AM EDT PACE Home Care / [facility] [address] [place] [phone] Jhoana Grijalva 10/20/2024 7:30 AM EDT PACE Home Care / [facility] [address] [place] [phone] Cheryle Pryor 10/20/2024 9:00 AM EDT [facility] [place] [facility] [address] [place] [address] 10/20/2024 9:00 AM EDT Consult [facility] [place] [address] [place] [address] 10/21/2024 7:30 AM EDT PACE Home Care / [facility] [address] [place] [address] Cheryle Pryor 10/21/2024 9:00 AM EDT Consult [facility] [address] [place] [phone] 10/21/2024 10:30 AM EDT PACE Home Care / [facility] [address] [place] [phone] Cheryle Pryor 10/22/2024 7:30 AM EDT PACE Home Care / [facility] [address] [place] [phone] Shawna Lebron 10/22/2024 9:00 AM EDT [facility] [facility] [place] [facility] [address] [place] [address] 10/22/2024 9:00 AM EDT Consult [facility] [place] [address] [place] [phone] 10/23/2024 7:30 AM EDT PACE Home Care / [facility] [address] [place] [phone] Cheryle Pryor 10/23/2024 9:00 AM EDT Consult [facility] [address] [place] [phone] 10/24/2024 7:30 AM EDT PACE Home Care / [facility] [address] [place] [phone] Shawna Lebron 10/24/2024 9:00 AM EDT Consult [facility] [place] [address] [place] [address] 10/25/2024 7:30 AM EDT PACE Home Care / [facility] [address] [place] [phone] Cheryle Pryor 10/26/2024 7:15 AM EDT PACE Home Care / [facility] [address] [place] [phone] Cheryle Pryor 10/27/2024 7:30 AM EDT PACE Home Care / [facility] [address] [place] [phone] Cheryle Pryor 10/27/2024 9:00 AM EDT P[facility] [place] [facility] [address] [place] [phone] 10/28/2024 7:30 AM EDT PACE Home Care / [facility] [address] [place] [phone] Cheryle Pryor 10/28/2024 10:30 AM EDT PACE Home Care / [facility] [address] [place] [phone] Cheryle Pryor 10/29/2024 7:30 AM EDT PACE Home Care / [facility] [address] [place] [phone] Shawna Lebron 10/29/2024 9:00 AM EDT [facility] [place] [facility] [address] [place] [phone] 10/30/2024 7:30 AM EDT PACE Home Care / [facility] [address] [place] [phone] Cheryle Pryor 10/31/2024 7:30 AM EDT PACE Home Care / [facility] [address] [place] [phone] Shawna Lebron 10/31/2024 10:30 AM EDT PACE Home Care / [facility] [address] [place] [phone] Jhoana Grijalva 11/01/2024 7:30 AM EDT PACE Home Care / [facility] [address] [place] [phone] Jhoana Grijalva 11/02/2024 7:30 AM EDT PACE Home Care / [facility] [address] [place] [phone] Jhoana Grijalva 11/03/2024 7:30 AM EDT PACE Home Care / [facility] [address] [place] [phone] Cheryle Pryor 11/03/2024 9:00 AM EDT [facility] [facility] [place] [facility] [address] [place] [address] 11/04/2024 7:30 AM EDT PACE Home Care / [facility] [address] [place] [phone] Cheryle Pryor 11/04/2024 10:30 AM EDT PACE Home Care / [facility] [address] [place] [phone] Cheryle Pryor 11/05/2024 7:30 AM EDT PACE Home Care / [facility] [address] [place] [phone] Shawna Lebron 11/05/2024 9:00 AM EDT [facility] [place] [facility] [address] [place] [phone] 11/06/2024 7:30 AM EDT PACE Home Care / [facility] [address] [place] [phone] Cheryle Pryor 11/06/2024 10:00 AM EDT Clinical Support [facility] [address] [place] [phone] 11/07/2024 7:30 AM EDT PACE Home Care / P[facility] [address] [place] [phone] Shawna Lebron 11/07/2024 10:30 AM EDT PACE Home Care / [facility] [address] [place] [phone] Jhoana Grijalva 11/08/2024 7:30 AM EDT PACE Home Care / [facility] [address] [place] [phone] Cheryle Pryor 11/09/2024 7:30 AM EDT PACE Home Care / [facility] [address] [place] [phone] Cheryle Pryor 11/10/2024 7:30 AM EDT PACE Home Care / [facility] [address] [place] [phone] Cheryle Pryor 11/10/2024 9:00 AM EDT [facility] [facility] [place] [facility] [address] [place] [address] 11/10/2024 9:45 AM EDT Office Visit [facility] [address] [place] [phone] Gemini Simmons MD [address] [facility] [address] [place] [address] 11/11/2024 7:30 AM EDT PACE Home Care / [facility] [address] [place] [phone] Cheryle Pryor 11/11/2024 10:30 AM EDT PACE Home Care / [facility] [address] [place] [phone] Cheryle Pryor 11/12/2024 7:30 AM EDT PACE Home Care / [facility] [address] [place] [phone] Shawna Lebron 11/12/2024 9:00 AM EDT [facility] [place] [facility] [address] [place] [phone] 11/13/2024 7:30 AM EDT PACE Home Care / [facility] [address] [place] [phone] Cheryle Pryor 11/14/2024 7:30 AM EDT PACE Home Care / [facility] [address] [place] [phone] Shawna Lebron 11/14/2024 10:30 AM EDT PACE Home Care / [facility] [address] [place] [phone] Jhoana Grijalva 11/15/2024 7:30 AM EDT PACE Home Care / [facility] [address] [place] [phone] Jhoana Grijalva 11/16/2024 7:30 AM EDT PACE Home Care / [facility] [address] [place] [phone] Jhoana Grijalva 11/17/2024 7:30 AM EDT PACE Home Care / [facility] [address] [place] [phone] Cheryle Pryor 11/17/2024 9:00 AM EDT [facility] [facility] [place] [facility] [address] [place] [phone] 11/18/2024 7:30 AM EDT PACE Home Care / [facility] [address] [place] [phone] Cheryle Pryor 11/18/2024 10:30 AM EDT PACE Home Care / [facility] [address] [place] [phone] Cheryle Pryor 11/19/2024 7:30 AM EDT PACE Home Care / [facility] [address] [place] [phone] Shawna Lebron 11/19/2024 9:00 AM EDT [facility] [facility] [place] [facility] [address] [place] [phone] 11/20/2024 7:30 AM EDT PACE Home Care / [facility] [address] [place] [phone] Cheryle Pryor 11/21/2024 7:30 AM EDT PACE Home Care / [facility] [address] [place] [address] Shawna Lebron 11/21/2024 10:30 AM EDT PACE Home Care / [facility] [address] [place] [phone] Jhoana Grijalva 11/22/2024 7:30 AM EDT PACE Home Care / [facility] [address] [place] [phone] Cheryle Pryor 11/23/2024 7:30 AM EDT PACE Home Care / [facility] [address] [place] [phone] Cheryle Pryor 11/24/2024 7:30 AM EDT PACE Home Care / [facility] [place] [facility] [address] [place] [phone] Cheryle Pryor 11/24/2024 9:00 AM EDT [facility] [place] [facility] [address] [place] [address] 11/25/2024 7:30 AM EDT PACE Home Care / [facility] [place] [facility] [address] [place] [address] Cheryle Pryor 11/25/2024 10:30 AM EDT PACE Home Care / [facility] [address] [place] [phone] Cheryle Pryor 11/26/2024 7:30 AM EDT PACE Home Care / [facility] [place] [facility] [address] [place] [address] Shawna Lebron 11/26/2024 9:00 AM EDT P[facility] Attendance[facility] [place] [facility] [address] [place] [address] 11/27/2024 7:30 AM EDT PACE Home Care / PACE [facility] [address] [place] [phone] Cheryle Pryor 11/28/2024 7:30 AM EDT PACE Home Care / PACE [facility] [address] [place] [phone] Shawna Lebron 11/28/2024 10:30 AM EDT PACE Home Care / PACE [facility] Visit [facility] [address] [place] [phone] Jhoana Grijalva 11/29/2024 7:30 AM EDT PACE Home Care / PACE [facility] Visit [facility] [address] [place] [phone] Jhoana Grijalva 11/30/2024 7:30 AM EDT PACE Home Care / P[facility] [address] [place] [phone] Jhoana Grijalva 12/01/2024 7:30 AM EDT PACE Home Care / PACE [facility] [address] [place] [phone] Cheryle Pryor 12/01/2024 9:00 AM EDT [facility] [place] [facility] [address] [place] [phone] 12/02/2024 7:30 AM EDT PACE Home Care / [facility] [address] [place] [phone] Cheryle Pryor 12/03/2024 7:30 AM EDT PACE Home Care / P[facility] [address] [place] [phone] Shawna Lebron 12/03/2024 9:00 AM EDT [facility] Att[facility] [place] [facility] [address] [place] [address] 12/04/2024 7:30 AM EDT PACE Home Care / P[facility] [address] [place] [phone] Cheryle Pryor 12/05/2024 7:30 AM EDT PACE Home Care / P[facility] [address] [place] [phone] Shawna Lebron 12/05/2024 10:30 AM EDT PACE Home Care / P[facility] [address] [place] [phone] Jhoana Grijalva 12/06/2024 7:30 AM EDT PACE Home Care / [facility] [address] [place] [phone] Cheryle Pryor 12/07/2024 7:30 AM EDT PACE Home Care / [facility] [address] [place] [phone] Cheryle Pryor 12/08/2024 9:00 AM EDT [facility] [place] [facility] [address] [place] [phone] 12/10/2024 9:00 AM EDT [facility] [place] [facility] [address] [place] [phone] 12/15/2024 9:00 AM EDT [facility] [place] [facility] [address] [place] [phone] 12/17/2024 9:00 AM EDT [facility] [place] [facility] [address] [place] [phone] 12/22/2024 9:00 AM EDT P[facility] [place] [facility] [address] [place] [phone] 12/24/2024 9:00 AM EDT P[facility] [place] [facility] [address] [place] [phone] 12/29/2024 9:00 AM EDT P[facility] [place] [facility] [address] [place] [phone] 12/31/2024 9:00 AM EDT P[facility] [place] [facility] [address] [place] [phone] 01/05/2025 9:00 AM EDT [facility] [place] [facility] [address] [place] [phone] 01/07/2025 9:00 AM EDT [facility] [place] [facility] [address] [place] [phone] 01/12/2025 9:00 AM EDT [facility] [place] [facility] [address] [place] [phone] 01/14/2025 9:00 AM EDT [facility] [place] [facility] [address] [place] [phone] 01/19/2025 9:00 AM EDT [facility] [place] [facility] [address] [place] [phone] 01/21/2025 9:00 AM EDT P[facility] [place] [facility] [address] [place] [phone] 01/26/2025 9:00 AM EDT P[facility] [place] [facility] [address] [place] [address] 01/28/2025 9:00 AM EDT P[facility] Att[facility] [place] [facility] [address] [place] [address] 02/02/2025 9:00 AM EDT P[facility] Att[facility] [place] [facility] [address] [place] [address] 02/04/2025 9:00 AM EDT P[facility] [place] [facility] [address] [place] [address] 02/09/2025 9:00 AM EDT P[facility] Att[facility] [place] [facility] [address] [place] [phone] 02/11/2025 9:00 AM EDT P[facility] [place] [facility] [address] [place] [phone] 02/16/2025 9:00 AM EDT P[facility] [place] [facility] [address] [place] [phone] 02/18/2025 9:00 AM EDT P[facility] [place] [facility] [address] [place] [phone] 02/23/2025 9:00 AM EDT [facility] [place] [facility] [address] [place] [address] 02/25/2025 9:00 AM EDT P[facility] [place] [facility] [address] [place] [address] 03/02/2025 9:00 AM EDT [facility] [place] [facility] [address] [place] [phone] 03/04/2025 9:00 AM EDT P[facility] [place] [facility] [address] [place] [address] 03/09/2025 9:00 AM EDT P[facility] [place] [facility] [address] [place] [address] 03/11/2025 9:00 AM EDT P[facility] Att[facility] [place] [facility] [address] [place] [address] 03/16/2025 9:00 AM EDT P[facility] [place] [facility] [address] [place] [address] 03/18/2025 9:00 AM EDT P[facility] [place] [facility] [address] [place] [phone] 03/23/2025 9:00 AM EDT P[facility] [place] [facility] [address] [place] [phone] 03/25/2025 9:00 AM EDT P[facility] Att[facility] [place] [facility] [address] [place] [phone] 03/30/2025 9:00 AM EDT P[facility] [place] [facility] [address] [place] [phone] 04/01/2025 9:00 AM EDT P[facility] [place] [facility] [address] [place] [address] 04/06/2025 9:00 AM EDT P[facility] [place] [facility] [address] [place] [address] 04/08/2025 9:00 AM EDT [facility] [place] [facility] [address] [place] [address] 04/13/2025 9:00 AM EDT [facility] [place] [facility] [address] [place] [address] 04/15/2025 9:00 AM EDT [facility] [place] [facility] [address] [place] [address] 04/20/2025 9:00 AM EDT [facility] [place] [facility] [address] [place] [address] 04/22/2025 9:00 AM EDT P[facility] [place] [facility] [address] [place] [address] 04/27/2025 9:00 AM EST [facility] [place] [facility] [address] [place] [phone] 04/29/2025 9:00 AM EST [facility] [place] [facility] [address] [place] [address] 05/04/2025 9:00 AM EST [facility] [place] [facility] [address] [place] [phone] 05/06/2025 9:00 AM EST [facility] [place] [facility] [address] [place] [address] 05/11/2025 9:00 AM EST [facility] [place] [facility] [address] [place] [address] 05/13/2025 9:00 AM EST [facility] [place] [facility] [address] [place] [address] 05/18/2025 9:00 AM EST [facility] [place] [facility] [address] [place] [phone] 05/20/2025 9:00 AM EST [facility] [place] [facility] [address] [place] [address] 05/25/2025 9:00 AM EST [facility] [place] [facility] [address] [place] [address] 05/27/2025 9:00 AM EST [facility] [place] [facility] [address] [place] [address] 06/01/2025 9:00 AM EST [facility] [place] [facility] [address] [place] [address] 06/03/2025 9:00 AM EST [facility] [place] [facility] [address] [place] [phone] 06/08/2025 9:00 AM EST [facility] [place] [facility] [address] [place] [address] 06/10/2025 9:00 AM EST [facility] [place] [facility] [address] [place] [phone] 06/15/2025 9:00 AM EST [facility] [place] [facility] [address] [place] [phone] 06/17/2025 9:00 AM EST [facility] [place] [facility] [address] [place] [phone] 06/22/2025 9:00 AM EST [facility] [place] [facility] [address] [place] [address] 06/24/2025 9:00 AM EST [facility] [place] [facility] [address] [place] [address] 06/29/2025 9:00 AM EST [facility] [place] [facility] [address] [place] [address] 07/01/2025 9:00 AM EST [facility] [place] [facility] [address] [place] [address] 07/06/2025 9:00 AM EST [facility] [place] [facility] [address] [place] [phone] 2025 9:00 AM EST [facility] [place] [facility] [address] [place] [address] 07/13/2025 9:00 AM EST P[facility] Att[facility] [place] [facility] [address] [place] [address] 07/15/2025 9:00 AM EST PACE [facility] [place] [facility] [address] [place] [address] 07/20/2025 9:00 AM EST P[facility] [place] [facility] [address] [place] [address] 07/22/2025 9:00 AM EST P[facility] [place] [facility] [address] [place] [phone] 07/27/2025 9:00 AM EST P[facility] [facility] [place] [facility] [address] [place] [address] 07/29/2025 9:00 AM EST PACE [facility] [place] [facility] [address] [place] [phone] 08/03/2025 9:00 AM EST PACE Attend[place] [facility] [place] [facility] [address] [place] [phone] documented as of this encounter Visit Diagnoses Not on filedocumented in this encounter Care Teams Pants Maker Relationship Specialty Start Date End Date Eleazar Gleason MD [address] [place] [id number] PCP - General 04/11/24 05/01/24 documented as of this encounter
--- OUTSIDE RECORDS SUMMARY | 2024-10-16 21:19 | XMS_ITS | Encounter Summary ---
Author Organization [facility] Address [address] [place] [address] Care Team Providers Care Tanning Wheel Operator Name Role Phone Eleazar Gleason MD Primary Care Provider [phone] Encounter Details Date Type Department Care Team [...] appetite for lunch. Aware of 30minute post emergency medicine medical director observation period for first infusion. 1300 - Observation period completed - patient with no issues noted - IV flushed and removed intact - patient has next appt in place. Stable upon discharge - [employer] transport van here for ride home. documented in this encounter Plan of Treatment Upcoming Encounters Date Type Department Care Team (Late st Contact Info) Description 10/17/2024 7:30 AM EDT PACE Home Care / P[facility] [address] [place] [phone] Shawna Lebron 10/17/2024 9:00 AM EDT Consult [facility] [place] [address] [place] [phone] 10/18/2024 7:30 AM EDT PACE Home Care / PACE Home Visit [facility] [address] [place] [phone] Jhoana Grijalva 10/19/2024 7:30 AM EDT PACE Home Care / PACE Home Visit [facility] [address] [place] [phone] Jhoana Grijalva 10/20/2024 7:30 AM EDT PACE Home Care / PACE Home Visit [facility] [address] [place] [phone] Cheryle Pryor 10/20/2024 9:00 AM EDT PACE Attendance/[facility] [place] [facility] [address] [place] [phone] 10/20/2024 9:00 AM EDT Consult [facility] [address] [place] [phone] 10/21/2024 7:30 AM EDT PACE Home Care / [facility] [address] [place] [phone] Cheryle Pryor 10/21/2024 9:00 AM EDT Consult [facility] [place] [address] [place] [phone] 10/21/2024 10:30 AM EDT PACE Home Care / PACE Home Visit [facility] [address] [place] [phone] Cheryle Pryor 10/22/2024 7:30 AM EDT PACE Home Care / [facility] [address] [place] [phone] Shawna Lebron 10/22/2024 9:00 AM EDT PACE Attendance/[facility] [place] [facility] [address] [place] [address] 10/22/2024 9:00 AM EDT Consult [facility] [place] [address] [place] [phone] 10/23/2024 7:30 AM EDT PACE Home Care / [facility] [address] [place] [phone] Cheryle Pryor 10/23/2024 9:00 AM EDT Consult [facility] [place] [address] [place] [phone] 10/24/2024 7:30 AM EDT PACE Home Care / [facility] [address] [place] [phone] Shawna Lebron 10/24/2024 9:00 AM EDT Consult [facility] [place] [address] [place] [address] 10/25/2024 7:30 AM EDT PACE Home Care / [facility] [address] [place] [address] Cheryle Pryor 10/26/2024 7:15 AM EDT PACE Home Care / PACE Home Visit [facility] [address] [place] [address] Cheryle Pryor 10/27/2024 7:30 AM EDT PACE Home Care / PACE Home Visit [facility] [address] [place] [address] Cheryle Pryor 10/27/2024 9:00 AM EDT [facility] [place] [facility] [address] [place] [address] 10/28/2024 7:30 AM EDT PACE Home Care / PACE Home Visit [facility] [address] [place] [address] Cheryle Pryor 10/28/2024 10:30 AM EDT PACE Home Care / PACE Home Visit [facility] [address] [place] [address] Cheryle Pryor 10/29/2024 7:30 AM EDT PACE Home Care / [facility] [address] [place] [address] Shawna Lebron 10/29/2024 9:00 AM EDT [facility] Att[facility] [place] [facility] [address] [place] [address] 10/30/2024 7:30 AM EDT PACE Home Care / [facility] [address] [place] [address] Cheryle Pryor 10/31/2024 7:30 AM EDT PACE Home Care / [facility] [address] [place] [phone] Shawna Lebron 10/31/2024 10:30 AM EDT PACE Home Care / [facility] [address] [place] [phone] Jhoana Grijalva 11/01/2024 7:30 AM EDT PACE Home Care / [facility] [address] [place] [phone] Jhoana Grijalva 11/02/2024 7:30 AM EDT PACE Home Care / [facility] [place] [facility] [address] [place] [phone] Jhoana Grijalva 11/03/2024 7:30 AM EDT PACE Home Care / [facility] [place] [facility] [address] [place] [phone] Cheryle Pryor 11/03/2024 9:00 AM EDT PACE Attendance[facility] [place] [facility] [address] [place] [phone] 11/04/2024 7:30 AM EDT PACE Home Care / [facility] [place] [facility] [address] [place] [phone] Cheryle Pryor 11/04/2024 10:30 AM EDT PACE Home Care / [facility] [place] [facility] [address] [place] [phone] Cheryle Pryor 11/05/2024 7:30 AM EDT PACE Home Care / [facility] [place] [facility] [address] [place] [address] Shawna Lebron 11/05/2024 9:00 AM EDT PACE Attendance[facility] [place] [facility] [address] [place] [phone] 11/06/2024 7:30 AM EDT PACE Home Care / PACE Home Visit [facility] [address] [place] [phone] Cheryle Pryor 11/06/2024 10:00 AM EDT Clinical Support [facility] [place] [address] [place] [phone] 11/07/2024 7:30 AM EDT PACE Home Care / PACE Home Visit [facility] [address] [place] [phone] Shawna Lebron 11/07/2024 10:30 AM EDT PACE Home Care / PACE Home Visit [facility] [address] [place] [phone] Jhoana Grijalva 11/08/2024 7:30 AM EDT PACE Home Care / PACE Home Visit [facility] [address] [place] [phone] Cheryle Pryor 11/09/2024 7:30 AM EDT PACE Home Care / PACE Home Visit [facility] [address] [place] [phone] Cheryle Pryor 11/10/2024 7:30 AM EDT PACE Home Care / PACE Home Visit [facility] [address] [place] [phone] Cheryle Pryor 11/10/2024 9:00 AM EDT PACE Attend[facility] [place] [facility] [address] [place] [phone] 11/10/2024 9:45 AM EDT Office Visit [facility] [address] [place] [phone] Gemini Simmons MD [address] [place] [address] 11/11/2024 7:30 AM EDT PACE Home Care / PACE Home Visit [facility] [address] [place] [address] Cheryle Pryor 11/11/2024 10:30 AM EDT PACE Home Care / PACE Home Visit [facility] [address] [place] [address] Cheryle Pryor 11/12/2024 7:30 AM EDT PACE Home Care / [facility] [address] [place] [address] Shawna Lebron 11/12/2024 9:00 AM EDT [facility] Att[facility] [place] [facility] [address] [place] [address] 11/13/2024 7:30 AM EDT PACE Home Care / [facility] [address] [place] [address] Cheryle Pryor 11/14/2024 7:30 AM EDT PACE Home Care / [facility] [address] [place] [phone] Shawna Lebron 11/14/2024 10:30 AM EDT PACE Home Care / [facility] [address] [place] [address] Jhoana Grijalva 11/15/2024 7:30 AM EDT PACE Home Care / [facility] [address] [place] [address] Jhoana Grijalva 11/16/2024 7:30 AM EDT PACE Home Care / PACE Home Visit [facility] [address] [place] [phone] Jhoana Grijalva 11/17/2024 7:30 AM EDT PACE Home Care / PACE Home Visit [facility] [address] [place] [phone] Cheryle Pryor 11/17/2024 9:00 AM EDT [facility] [place] [facility] [address] [place] [phone] 11/18/2024 7:30 AM EDT PACE Home Care / PACE Home Visit [facility] [address] [place] [phone] Cheryle Pryor 11/18/2024 10:30 AM EDT PACE Home Care / PACE Home Visit [facility] [address] [place] [phone] Cheryle Pryor 11/19/2024 7:30 AM EDT PACE Home Care / PACE Home Visit [facility] [address] [place] [phone] Shawna Lebron 11/19/2024 9:00 AM EDT [facility] [place] [facility] [address] [place] [phone] 11/20/2024 7:30 AM EDT PACE Home Care / [facility] [address] [place] [phone] Cheryle Pryor 11/21/2024 7:30 AM EDT PACE Home Care / [facility] [address] [place] [phone] Shawna Lebron 11/21/2024 10:30 AM EDT PACE Home Care / [facility] [address] [place] [phone] Jhoana Grijalva 11/22/2024 7:30 AM EDT PACE Home Care / [facility] [address] [place] [phone] Cheryle Pryor 11/23/2024 7:30 AM EDT PACE Home Care / [facility] [place] [facility] [address] [place] [phone] Cheryle Pryor 11/24/2024 7:30 AM EDT PACE Home Care / PACE Home Visit [facility] [address] [place] [phone] Cheryle Pryor 11/24/2024 9:00 AM EDT [facility] Att[facility] [place] [facility] [address] [place] [phone] 11/25/2024 7:30 AM EDT PACE Home Care / [facility] [address] [place] [phone] Cheryle Pryor 11/25/2024 10:30 AM EDT PACE Home Care / [facility] [address] [place] [phone] Cheryle Pryor 11/26/2024 7:30 AM EDT PACE Home Care / [facility] Visit [facility] [address] [place] [phone] Shawna Lebron 11/26/2024 9:00 AM EDT [facility] Att[facility] [place] [facility] [address] [place] [phone] 11/27/2024 7:30 AM EDT PACE Home Care / [facility] [address] [place] [phone] Cheryle Pryor 11/28/2024 7:30 AM EDT PACE Home Care / [facility] [address] [place] [phone] Shawna Lebron 11/28/2024 10:30 AM EDT PACE Home Care / [facility] [address] [place] [phone] Jhoana Grijalva 11/29/2024 7:30 AM EDT PACE Home Care / [facility] [address] [place] [phone] Jhoana Grijalva 11/30/2024 7:30 AM EDT PACE Home Care / [facility] [address] [place] [phone] Jhoana Grijalva 12/01/2024 7:30 AM EDT PACE Home Care / [facility] [address] [place] [phone] Cheryle Pryor 12/01/2024 9:00 AM EDT [facility] [place] [facility] [address] [place] [address] 12/02/2024 7:30 AM EDT PACE Home Care / [facility] [address] [place] [phone] Cheryle Pryor 12/03/2024 7:30 AM EDT PACE Home Care / [facility] [address] [place] [phone] Shawna Lebron 12/03/2024 9:00 AM EDT [facility] [place] [facility] [address] [place] [address] 12/04/2024 7:30 AM EDT PACE Home Care / [facility] [address] [place] [phone] Cheryle Pryor 12/05/2024 7:30 AM EDT PACE Home Care / [facility] [address] [place] [phone] Shawna Lebron 12/05/2024 10:30 AM EDT PACE Home Care / [facility] [address] [place] [phone] Jhoana Grijalva 12/06/2024 7:30 AM EDT PACE Home Care / [facility] [address] [place] [phone] Cheryle Pryor 12/07/2024 7:30 AM EDT PACE Home Care / [facility] [address] [place] [phone] Cheryle Pryor 12/08/2024 9:00 AM EDT [facility] Attend[facility] [place] [facility] [address] [place] [address] 12/10/2024 9:00 AM EDT P[facility] Att[facility] [place] [facility] [address] [place] [phone] 12/15/2024 9:00 AM EDT [facility] Att[facility] [place] [facility] [address] [place] [address] 12/17/2024 9:00 AM EDT P[facility] Attend[facility] [place] [facility] [address] [place] [address] 12/22/2024 9:00 AM EDT P[facility] Attendance[facility] [place] [facility] [address] [place] [address] 12/24/2024 9:00 AM EDT P[facility] Attend[facility] [place] [facility] [address] [place] [address] 12/29/2024 9:00 AM EDT P[facility] Attendance[facility] [place] [facility] [address] [place] [address] 12/31/2024 9:00 AM EDT P[facility] Attend[facility] [place] [facility] [address] [place] [address] 01/05/2025 9:00 AM EDT P[facility] Attend[facility] [place] [facility] [address] [place] [address] 01/07/2025 9:00 AM EDT P[facility] Attend[facility] [place] [facility] [address] [place] [phone] 01/12/2025 9:00 AM EDT P[facility] Attend[facility] [place] [facility] [address] [place] [phone] 01/14/2025 9:00 AM EDT P[facility] Attend[facility] [place] [facility] [address] [place] [address] 01/19/2025 9:00 AM EDT P[facility] Attend[facility] [place] [facility] [address] [place] [address] 01/21/2025 9:00 AM EDT P[facility] Attendance[facility] [place] [facility] [address] [place] [address] 01/26/2025 9:00 AM EDT P[facility] Attendance[facility] [place] [facility] [address] [place] [address] 01/28/2025 9:00 AM EDT P[facility] Attendance[facility] [place] [facility] [address] [place] [address] 02/02/2025 9:00 AM EDT P[facility] Attend[facility] [place] [facility] [address] [place] [address] 02/04/2025 9:00 AM EDT P[facility] Attend[facility] [place] [facility] [address] [place] [address] 02/09/2025 9:00 AM EDT P[facility] Attendance[facility] [place] [facility] [address] [place] [address] 02/11/2025 9:00 AM EDT P[facility] Attend[facility] [place] [facility] [address] [place] [address] 02/16/2025 9:00 AM EDT P[facility] Attend[facility] [place] [facility] [address] [place] [address] 02/18/2025 9:00 AM EDT P[facility] Attendance[facility] [place] [facility] [address] [place] [address] 02/23/2025 9:00 AM EDT P[facility] Attendance[facility] [place] [facility] [address] [place] [address] 02/25/2025 9:00 AM EDT [facility] [place] [facility] [address] [place] [address] 03/02/2025 9:00 AM EDT P[facility] [place] [facility] [address] [place] [address] 03/04/2025 9:00 AM EDT [facility] [place] [facility] [address] [place] [address] 03/09/2025 9:00 AM EDT [facility] [place] [facility] [address] [place] [address] 03/11/2025 9:00 AM EDT PACE Attendance[facility] [place] [facility] [address] [place] [address] 03/16/2025 9:00 AM EDT [facility] [place] [facility] [address] [place] [phone] 03/18/2025 9:00 AM EDT PACE Attendance[facility] [place] [facility] [address] [place] [phone] 03/23/2025 9:00 AM EDT P[facility] Attendance[facility] [place] [facility] [address] [place] [address] 03/25/2025 9:00 AM EDT [facility] [place] [facility] [address] [place] [address] 03/30/2025 9:00 AM EDT [facility] [place] [facility] [address] [place] [address] 04/01/2025 9:00 AM EDT [facility] [place] [facility] [address] [place] [address] 04/06/2025 9:00 AM EDT [facility] [place] [facility] [address] [place] [address] 04/08/2025 9:00 AM EDT [facility] [place] [facility] [address] [place] [address] 04/13/2025 9:00 AM EDT [facility] [place] [facility] [address] [place] [phone] 04/15/2025 9:00 AM EDT [facility] [place] [facility] [address] [place] [address] 04/20/2025 9:00 AM EDT [facility] [place] [facility] [address] [place] [address] 04/22/2025 9:00 AM EDT [facility] Att[facility] [place] [facility] [address] [place] [address] 04/27/2025 9:00 AM EST [facility] [place] [facility] [address] [place] [address] 04/29/2025 9:00 AM EST [facility] Att[facility] [place] [facility] [address] [place] [address] 05/04/2025 9:00 AM EST [facility] [place] [facility] [address] [place] [address] 05/06/2025 9:00 AM EST [facility] [place] [facility] [address] [place] [address] 05/11/2025 9:00 AM EST [facility] [place] [facility] [address] [place] [address] 05/13/2025 9:00 AM EST [facility] [place] [facility] [address] [place] [address] 05/18/2025 9:00 AM EST [facility] [place] [facility] [address] [place] [address] 05/20/2025 9:00 AM EST [facility] [place] [facility] [address] [place] [address] 05/25/2025 9:00 AM EST [facility] Attend[facility] [place] [facility] [address] [place] [address] 05/27/2025 9:00 AM EST [facility] [place] [facility] [address] [place] [address] 06/01/2025 9:00 AM EST [facility] Att[facility] [place] [facility] [address] [place] [address] 06/03/2025 9:00 AM EST [facility] Att[facility] [place] [facility] [address] [place] [address] 06/08/2025 9:00 AM EST P[facility] Attend[facility] [place] [facility] [address] [place] [address] 06/10/2025 9:00 AM EST P[facility] Att[facility] [place] [facility] [address] [place] [address] 06/15/2025 9:00 AM EST P[facility] [place] [facility] [address] [place] [address] 06/17/2025 9:00 AM EST PACE Attend[facility] [place] [facility] [address] [place] [address] 06/22/2025 9:00 AM EST P[facility] Att[facility] [place] [facility] [address] [place] [address] 06/24/2025 9:00 AM EST P[facility] [place] [facility] [address] [place] [address] 06/29/2025 9:00 AM EST P[facility] Att[facility] [place] [facility] [address] [place] [address] 07/01/2025 9:00 AM EST P[facility] Att[facility] [place] [facility] [address] [place] [address] 07/06/2025 9:00 AM EST P[facility] Att[facility] [place] [facility] [address] [place] [address] 2025 9:00 AM EST P[facility] [place] [facility] [address] [place] [address] 07/13/2025 9:00 AM EST P[facility] [place] [facility] [address] [place] [address] 07/15/2025 9:00 AM EST P[facility] [place] [facility] [address] [place] [address] 07/20/2025 9:00 AM EST P[facility] [place] [facility] [address] [place] [address] 07/22/2025 9:00 AM EST P[facility] [place] [facility] [address] [place] [address] 07/27/2025 9:00 AM EST P[facility] [place] [facility] [address] [place] [phone] 07/29/2025 9:00 AM EST P[facility] [place] [facility] [address] [place] [address] 08/03/2025 9:00 AM EST P[facility] Attend[facility] [place] [facility] [address] [place] [phone] documented as of this encounter Procedures Procedure Name Priority Date/Time Associated Diagnosis Comments ..MISCELLANEOUS REFERENCE LAB TEST 04/14/2024 documented in this encounter Results * Miscellaneous reference lab test (04/14/2024) us Provider Onbase MD LAB BLOOD ORDERABLES Final Re sult documented in this encounter Visit Diagnoses Diagnosis Iron deficiency anemia, unspecified documented in this encounter Care Teams Tanning Wheel Operator Relationship Specialty Start Date End Date Eleazar Gleason MD [address] [address] PCP - General 04/11/24 05/01/24 documented as of this encounter
--- NOTE | 2024-10-17 08:37 | PC.NURSE ---
I spoke with this patient this am and asked her to return to the ED for further testing based on her findings from yesterdays imaging results and risks related to Eliquis. She is agreeable to return to the ED, states she will find a ride.
== END 2024-10-16 21:31 | disposition left against medical advice (07) ==
PROVIDERS: Physician Assistant; Emergency Provider Emergency Medicine; PCP Nurse Practitioner Family
DX: R07.89 Other chest pain (principal); R42 Dizziness and giddiness; R51.9 Headache, unspecified; M79.602 Pain in left arm; M25.562 Pain in left knee; Z91.81 History of falling; R06.02 Shortness of breath; I50.9 Heart failure, unspecified; I11.0 Hypertensive heart disease with heart failure; E11.9 Type 2 diabetes mellitus without complications; J44.9 Chronic obstructive pulmonary disease, unspecified; Z99.81 Dependence on supplemental oxygen; F17.210 Nicotine dependence, cigarettes, uncomplicated; Z86.73 Personal history of transient ischemic attack (TIA), and cerebral infarction without residual deficits; Z79.899 Other long term (current) drug therapy; Z79.02 Long term (current) use of antithrombotics/antiplatelets; Z79.01 Long term (current) use of anticoagulants; Z79.82 Long term (current) use of aspirin
CPT/HCPCS: 36415; 70450; 71101; 72125; 73030; 73562; 80048; 80076; 83735; 84484; 85025; 93005; 99283; 99284

== ENCOUNTER → 2024-10-16 13:24 | Outpatient (BNV) | payer OTHER, SELFPAY | PROVIDERS: PCP Nurse Practitioner Family; Visit Provider Radiology Diagnostic Radiology | DX: M41.86 Other forms of scoliosis, lumbar region (principal); M47.811 Spondylosis without myelopathy or radiculopathy, occipito-atlanto-axial region; J98.11 Atelectasis; J90 Pleural effusion, not elsewhere classified; J94.2 Hemothorax; M17.12 Unilateral primary osteoarthritis, left knee; W19.XXXA Unspecified fall, initial encounter | CPT/HCPCS: 70450; 71101; 72125; 73030; 73562 ==

== ENCOUNTER → 2024-10-16 13:25 | Outpatient (BNV) | payer OTHER, SELFPAY | PROVIDERS: PCP Nurse Practitioner Family; Visit Provider Internal Medicine | DX: R94.31 Abnormal electrocardiogram [ECG] [EKG] (principal); R07.9 Chest pain, unspecified | CPT/HCPCS: 93010 ==

== ENCOUNTER 2024-10-17 11:25 | Emergency (ER) | payer OTHER, SELFPAY ==
--- NOTE | ~2024-10-17 | CT_ITS ---
EXAMINATION: CT CHEST WITH IV CONTRAST INDICATION: fall, abnormal CXR, dyspnea, contusion on L chest COMPARISON: Correlation is made with a PA view of the chest dated 10/16/2024. TECHNIQUE: Helical CT scan of the chest was performed following administration of intravenous contrast. Coronal and sagittal reformatted images were generated and reviewed. This CT exam was performed with one or more of the following dose reduction techniques: automated exposure control, adjustment of the mA and/or kV according to patient size, use of iterative reconstruction technique. DLP: 396 mGy-cm CHEST: THYROID: The thyroid is unremarkable. LUNGS: There is bandlike atelectasis in the right lower lobe with moderate elevation of the right hemidiaphragm. There is some linear subsegmental atelectasis in the left lower lobe. MEDIASTINUM: There is no mediastinal lymphadenopathy. ANNALISE: There is no hilar lymphadenopathy. CARDIOVASCULATURE: The heart is normal in size. There is no pericardial effusion. The thoracic aorta is normal in caliber. DEGREE OF CORONARY CALCIFICATION: none PLEURA: There is no pleural effusion. No pneumothorax. MAIN AIRWAYS: The mainstem bronchi and proximal branches are patent. AXILLA: There is no axillary lymphadenopathy. BONES AND SOFT TISSUES: There is degenerative disc disease of the spine. UPPER ABDOMEN: The visualized portions of the liver, spleen, and adrenals are unremarkable. CT/CT chest w IV con IMPRESSION: Bandlike atelectasis in the right lower lobe with elevation of the right hemidiaphragm. Electronically signed by: Jose Lang MD 10/17/2024 02:16 PM EDT
[2024-10-17 11:27] VITALS: BP 142/74; PULSE 83; RESP 18; TEMP 37.2; O2SAT 93; BMI 40.4
--- NOTE | 2024-10-17 11:33 | ED_ITS ---
HPI - General Adult General Chief complaint: Recheck/Abnormal Lab/Rx Stated complaint: Told To Come Back In For A Scan Time Seen by Provider: 10/17/24 11:41 Source: patient and old records reviewed Mode of arrival: ambulatory Limitations: no limitations History of Present Illness ED Provider: SANDEEP MONTES DE OCA narrative: 64 yo female with PMH of CHF, CVA, bipolar, COPD on 2L NC, PAF and DVT on eliquis, fibromyalgia seen yesterday in triage for cough, dizzines and fall - had normal CT head/cspine, CXR showed R sided pleural effusion and possible airspace disease, R shoulder negative xray she comes back today with c/o increasing shortness of breath, brown sputum. She notes she felt worse last night. She denies fevers. She states she tripped yesterday when her walker gave out. Her pain is on the L side ribs. She did not have LOC with the fall MD complaint: rib pain, cough, dyspnea Onset (ago): day(s) (1) Location: chest Radiation: non-radiation Severity: moderate Quality: aching Pain Consistency: constant Relieving factors: rest Exacerbating factors: movement and other (breathing) Associated symptoms: chest pain, cough, shortness of breath and weakness Treatments prior to arrival: none Related Data Home Medications ?Medication ?Instructions ?Recorded ?Confirmed lorazepam 1 mg tablet 1 mg PO TID 08/19/24 10/14/24 atorvastatin 80 mg tablet 40 mg PO BEDTIME 09/26/24 10/14/24 estradiol 0.01% (0.1 mg/gram) 1 g vaginal 2XW 09/26/24 10/14/24 vaginal cream ferrous sulfate 325 mg (65 mg 325 mg PO DAILY 09/26/24 10/14/24 iron) tablet,delayed release methenamine hippurate 1 g PO DAILY 09/26/24 10/14/24 oxcarbazepine 300 mg tablet 600 mg PO BID 09/26/24 10/14/24 potassium chloride 10 mEq 10 meq PO BID 09/26/24 10/14/24 tablet,extended release(part/cryst) trazodone 50 mg tablet 25 mg PO TIDWMEAL 09/26/24 10/14/24 acetaminophen 500 mg tablet 500 mg PO TID 10/14/24 10/14/24 albuterol sulfate 90 mcg/actuation 2 puff inhalation Q6H PRN 10/14/24 10/14/24 aerosol inhaler (Ventolin HFA) Shortness Of Breath/Wheezing bumetanide 2 mg tablet 2 mg PO DAILY 10/14/24 10/14/24 cholecalciferol (vitamin D3) 50 50 mcg PO DAILY 10/14/24 10/14/24 mcg (2,000 unit) capsule (Vitamin D3) gabapentin 800 mg tablet 800 mg PO TID 10/14/24 10/14/24 hydroxyzine HCl 25 mg tablet 25 mg PO Q6H PRN Itching 10/14/24 10/14/24 metaxalone 800 mg tablet 800 mg PO TID 10/14/24 10/14/24 nicotine 21 mg/24 hr daily 1 patch transdermal DAILY 10/14/24 10/14/24 transdermal patch ondansetron 4 mg disintegrating 8 mg PO Q8H PRN Nausea 10/14/24 10/14/24 tablet phenazopyridine 99.5 mg tablet 99.5 mg PO TID 10/14/24 10/14/24 polyethylene glycol 3350 17 gram 17 g PO DAILY 10/14/24 10/14/24 oral powder packet Previous Rx's ?Medication ?Instructions ?Recorded apixaban 5 mg tablet (Eliquis) 5 mg PO BID #0 tabs 09/01/24 aspirin 81 mg chewable tablet 81 mg PO DAILY #0 tabs 09/01/24 cyclobenzaprine 10 mg tablet 10 mg PO BID #0 tabs 09/01/24 fluoxetine 20 mg capsule 20 mg PO DAILY #0 caps 09/01/24 fluticasone fur. 100 mcg-umeclid 1 inh inhalation RDAILY #0 ea 09/01/24 62.5 mcg-vilant 25 mcg inhalat.powder (Trelegy Ellipta) melatonin 3 mg tablet 3 mg PO BEDTIME #0 tabs 09/01/24 metformin 500 mg tablet 500 mg PO DAILY #0 tabs 09/01/24 metoprolol succinate 25 mg 25 mg PO DAILY #0 tabs 09/01/24 tablet,extended release 24 hr prazosin 1 mg capsule 2 mg PO BEDTIME #0 caps 09/01/24 quetiapine 400 mg tablet 400 mg PO BEDTIME #0 tabs 09/01/24 bupropion HCl 300 mg 24 hr tablet, 300 mg PO DAILY 30 days #30 tabs 10/05/24 extended release capsaicin 0.025 % topical cream 1 appl topical QID PRN low back 10/05/24 pain 30 days #50 grams lidocaine 4 % topical patch 1 patch transdermal DAILY 30 days 10/05/24 (Lidocaine Pain Relief) #30 ea lidocaine 5 % topical patch 1 patch topical DAILY #30 ea 10/17/24 prednisone 20 mg tablet 40 mg (2 x 20 mg) PO DAILY 5 days 10/17/24 #10 tabs Allergies Allergy/AdvReac Type Severity Reaction Status Date / Time sertraline [From Zoloft] Allergy Intermediate Nausea and Verified 10/17/24 11:32 Vomiting Penicillins Allergy Mild RASH Verified 10/17/24 11:32 ciprofloxacin AdvReac Intermediate Nausea and Verified 10/17/24 11:32 Vomiting Review of Systems 2 Review of Systems: Constitutional : No Fever, No Chills ENT/Mouth : No sore throat, No Rhinorrhea, No Swallowing Difficulty Eyes: No Eye Pain, No Swelling, No Redness Cardiovascular : pos Chest Pain, positive SOB, No Orthopnea, no Edema Respiratory : pos Cough, pos Sputum, No Wheezing, positive dyspnea Gastrointestinal : No Nausea, No Vomiting, No Diarrhea, No abdominal Pain, No Hematochezia, No Melena Genitourinary : No Dysuria, No Urinary Frequency, No Hematuria Musculoskeletal : No joint pain, No Myalgias Skin : No Skin Lesions, No rash Neuro : No Weakness, No Numbness, No Dizziness, No Headache Psych : No Anxiety/Panic, No Depression Heme/Lymph: No Bruising, No Lymphadenopathy Endocrine : No Polyuria, No Polydipsia All other systems reviewed and are negative [facility] Past Medical History Attestation statement: The following information was validated with the patient. Source: old records reviewed Medical History Ruptured spleen delivery delivered CHF (congestive heart failure) Type II diabetes mellitus History of falling Fibromyalgia O2 dependent COPD (chronic obstructive pulmonary disease) CVA (cerebral vascular accident) Bipolar disorder Surgical History History of cholecystectomy Social History Social History Household Members: None Housing: Apartment Do you presently have visiting nurse or other home services: Yes Comment: 1:1 Patient Tobacco Use Status: Current everyday Tobacco user Tobacco use type: Cigarette Cigarette Packs Per Day: 0.5 Cigarettes Per Day: 8 Years Smoked: 45 Smoked in Last 30 Days: Yes e-Cigarette/Vaping Use: Never Used Second Hand Smoke Exposure: Yes Use of substances other than those prescribed or required for medical reasons: No Substance Use Type: Prescription Drugs Advance Directives: Yes Advance Directives on File: Yes Advance Directives Date on File: 09/02/24 Patient : No service: No Sexual orientation: Straight/Heterosexual Physical Exam ED Vital Signs: Vital Signs - 24 hr 10/17/24 11:27 10/17/24 14:07 Temperature 98.9 F 97.6 F Pulse Rate 83 65 Respiratory Rate 18 16 Blood Pressure 142/74 H 117/59 L Pulse Oximetry 93 94 Oxygen Delivery Method Room Air BMI result Body Mass Index 40.4 Appearance: Alert. Oriented X3. No acute distress. Eyes: Pupils equal, round and reactive to light. ENT: Pharynx normal. Neck: Normal inspection. Neck supple. CVS: Normal heart rate and rhythm. Pulses normal. Respiratory: No respiratory distress. Breath sounds diminished both bases as she is splinting Chest wall: no deformity but ttp along lateral left ribs Abdomen: Soft and nontender. Skin: Skin warm and dry. Normal skin color. Normal skin turgor. Extremities: No lower extremity edema. No calf ttp Neuro: Oriented X 3. No motor deficit. No sensory deficit. CN2-12 intact Course Course Course Narrative: This is a Rapid Medical Examination (RME) performed by Janny Ma PA-C in triage. Full HPI, ROS, assessment and treatment plan per primary provider in the Main ED. 10/17/24 1135 HALLEY Barnes Hx: 64 yo F w/PMHx CHF, DM, Fibromyalgia, COPD, CVA, bipolar presenting to the ED after leaving T yesterday. reports fall yest. cxr noted moderate right pleural effusion. on thinners. was called and told to come back for further eval/imaging. reports increasing SOB, pain worse in left shift. reprots brown sputum production over night. PE/vitals: 92% on RA, appears uncomfortable. Plan: repeat labs, coags will needs imaging w/ con Charge nurse aware at [id number] Medications Administered Discontinued Medications Generic Name Dose Route Start Last Admin Trade Name Deidra PRN Reason Stop Dose Admin Ceftriaxone Sodium 1 gm 10/17/24 11:46 10/17/24 12:55 Ceftriaxone Sodium 1 Gm Vial IVPUSH 10/17/24 11:47 1 gm ONCE ONE Administration Acetaminophen 1,000 mg in 100 mls @ 400 mls/hr 10/17/24 12:12 10/17/24 13:10 Ofirmev IV 10/17/24 12:26 Infused ONCE ONE Infusion Iohexol 100 ml 10/17/24 13:42 10/17/24 13:43 Iohexol 350 Mg/Ml 100 Ml Infus..Btl IV 10/17/24 13:43 65 ml ONCE ONE Administration Morphine Sulfate 4 mg 10/17/24 12:12 10/17/24 13:02 Morphine Sulfate 4 Mg/Ml Cartridge IVPUSH 10/17/24 12:13 4 mg ONCE ONE Administration Protocol Medical Decision Making Medical Decision Making [facility] Narrative: 64 yo female with PMH of CHF, CVA, bipolar, COPD on 2L NC, PAF and DVT on eliquis, fibromyalgia here with c/o L sided rib pain reproduceable to palpation but also c/o cough and dyspnea at this time will treat her pain, start on antibiotics given possible consolidation. She will be given IV pain medications. She will also get CT scan of chest for fracture, effusion, hemothorax and infection. She took her eliquis this AM. Differential Diagnosis Differential Diagnoses: The differential diagnosis associated with the presentation includes rib fracture, pneumonia, contusion, effusion Admission/Observation Consideration of admission/observation: Escalation of care including admission/observation considered no O2 requirements, CT scan negative labs stable at this time can be DC as rib contusion Lab Data [facility] Lab Attestation statement: I reviewed the patient's lab results. 10/17/24 11:46 10/17/24 11:46 Labs: Lab Results 10/17/24 10/17/24 10/17/24 Range/Units 11:46 12:03 12:47 WBC 7.7 (4.8-10.8) X10*3/uL RBC 4.21 (4.20-5.50) X10*6/uL Hgb 13.6 (12.0-16.0) g/dl Hct 40.7 (37.0-47.0) % MCV 96.7 (80.0-98.0) fL MCH 32.3 (27.0-33.0) pg MCHC 33.4 (31.0-35.0) g/dl RDW 14.0 (11.0-16.0) % Plt Count 363 (160-400) X10*3/uL MPV 9.1 L (9.4-12.3) fL Immature Gran % (Auto) 0.3 (0.0-0.4) % Neut % (Auto) 62.4 (45-73) % Lymph % (Auto) 26.5 (20-40) % [place] % (Auto) 8.6 (2-11) % Eos % (Auto) 1.4 (0-4) % Baso % (Auto) 0.8 (0-2) % Lymph # (Auto) 2.0 (1.2-4.9) X10*3/uL [place] # (Auto) 0.7 (0.1-1.2) X10*3/uL Eos # (Auto) 0.1 (0.0-0.4) X10*3/uL Baso # (Auto) 0.1 (0.0-0.2) X10*3/uL Abs Immat Gran (auto) 0.02 (0.00-0.03) X10*3/uL Absolute Neuts (auto) 4.8 (2.0-8.3) x10*3/uL Absolute Nucleated RBC 0.000 (0.0-0.012) X10*3/uL Nucleated RBC % (auto) 0.0 (0.0-0.2) /100WBC PT 17.5 H (10.9-12.4) SEC INR 1.5 H (0.9-1.1) APTT 34.1 (26.0-36.8) SEC VBG pH 7.36 (7.32-7.43) VBG pCO2 55 mmHg VBG pO2 44 mmHg VBG HCO3 31 H (22-26) mmol/L VBG O2 Saturation 69.0 % VBG Base Excess 4.8 mmol/L Sodium 139 (135-145) mmol/L Potassium 4.1 (3.3-5.1) mmol/L Chloride 106 (96-108) mmol/L Carbon Dioxide 28 (22-29) mmol/L Anion Gap 9 L (12-20) BUN 11 (9-16) mg/dL Creatinine 0.77 (0.5-1.4) mg/dL Estim Creat Clear Calc 96.8 Estimated GFR > 60 Random Glucose 135 H (60-115) mg/dL Lactic Acid 1.9 (0.5-2.0) mmol/L Calcium 9.6 (8.4-10.2) mg/dL Magnesium 1.8 (1.6-2.6) mg/dL Total Bilirubin 0.3 (0.0-1.0) mg/dL AST 22 (5-31) U/L ALT 19 (0-31) U/L Alkaline Phosphatase 104 (39-117) U/L Troponin I High Sens < 2.7 (<3.5-17.0) ng/L C-Reactive Protein 0.39 (< or = 0.50) mg/dL B-Natriuretic Peptide 55 (<100) pg/mL Total Protein 7.3 (6.5-8.0) g/dL Albumin 4.1 (3.5-5.0) g/dL Independent Interpretation I performed an independent interpretation of an: EKG and CT Scan (no acute cause) Interpretation: Rate: 67 Rhythm: NSR [place]: normal Normal P waves. Normal JONI. Normal QRS complex. ST T wave : inverted t wave V1, no CRYSTAL qTC: 407 prior studies: no acute ischemia The study has been interpreted contemporaneously by me. . Radiology Impression Discussion of test interpretation with radiology: I have reviewed the radiologist's reading. External Record Review External record reviewed: Outpatient record, Prior outpatient labs and Prior outpatient radiology Prescription Management I considered prescription management with: Pain Medication Discharge Plan Discharge Clinical Impression: Acute exacerbation of chronic obstructive pulmonary disease Contusion of rib on left side Qualifiers: Encounter type: initial encounter Qualified Code(s): S20.212A - Contusion of left front wall of thorax, initial encounter Patient Disposition: Home, Self-Care Instructions: COPD (Chronic Obstructive Pulmonary Disease) (ED), Rib Contusion (ED) Additional Instructions: no acute findings on CT scan no fluid, no pneumonia, no broken ribs labs reassuring normal oxygen level make sure you are taking big breaths through pain 5 times an hour while awake return for worsening pain, difficulty breathing, bloody sputum or any other concerns. Prescriptions: New prednisone 20 mg tablet 40 mg PO DAILY 5 Days Qty: 10 0RF lidocaine 5 % adhesive patch,medicated 1 patch topical DAILY Qty: 30 0RF Rx Instructions: leave on most painful area for up to 12 hrs No Action bumetanide 2 mg Tablet 2 mg PO DAILY gabapentin 800 mg Tablet 800 mg PO TID nicotine 21 mg/24 hr Patch 24 Hour 1 patch TRANSDERMAL DAILY phenazopyridine 99.5 mg Tablet 99.5 mg PO TID Rx Instructions: Take for 5 days for urinary pain. acetaminophen 500 mg Tablet 500 mg PO TID Rx Instructions: Three times a day before meals. metaxalone 800 mg Tablet 800 mg PO TID polyethylene glycol 3350 17 gram Powder In Packet 17 g PO DAILY cholecalciferol (vitamin D3) [Vitamin D3] 50 mcg (2,000 unit) Capsule 50 mcg PO DAILY Rx Instructions: Take three capsules daily for a total dose of 6000 units. hydroxyzine HCl 25 mg tablet 25 mg PO Q6H PRN (Reason: Itching) ondansetron 4 mg Tablet,Disintegrating 8 mg PO Q8H PRN (Reason: Nausea) Rx Instructions: Take 2 tablets every 8 hours if needed for up to 7 days. albuterol sulfate [Ventolin HFA] 90 mcg/actuation HFA aerosol inhaler 2 puff inhalation Q6H PRN (Reason: Shortness Of Breath/Wheezing) lorazepam 1 mg tablet 1 mg PO TID Rx Instructions: Take before meals. Max daily amount 3 mg. cyclobenzaprine 10 mg Tablet 10 mg PO BID Qty: 0 0RF prazosin 1 mg Capsule 2 mg PO BEDTIME Qty: 0 0RF Protocol: Hold for SBP< HOLD for SBP < : 90 aspirin 81 mg Tablet,Chewable 81 mg PO DAILY Qty: 0 0RF metoprolol succinate 25 mg Tablet Extended Release 24 Hr 25 mg PO DAILY Qty: 0 0RF Protocol: Hold for SBP/HR < HOLD for SBP < : 90 HOLD for HR < : 60 fluoxetine 20 mg Capsule 20 mg PO DAILY Qty: 0 0RF quetiapine 400 mg Tablet 400 mg PO BEDTIME Qty: 0 0RF Eliquis 5 mg Tablet 5 mg PO BID Qty: 0 0RF Trelegy Ellipta 100-62.5-25 mcg Blister With Device 1 inh inhalation RDAILY Qty: 0 0RF metformin 500 mg Tablet 500 mg PO DAILY Qty: 0 0RF Rx Instructions: Take with evening meal. melatonin 3 mg Tablet 3 mg PO BEDTIME Qty: 0 0RF atorvastatin 80 mg tablet 40 mg PO BEDTIME trazodone 50 mg tablet 25 mg PO TIDWMEAL oxcarbazepine 300 mg tablet 600 mg PO BID potassium chloride 10 mEq tablet,ER particles/crystals 10 meq PO BID estradiol 0.01 % (0.1 mg/gram) Cream 1 g VAGINAL 2XW Rx Instructions: Apply as directed 2 times a week. ferrous sulfate 325 mg (65 mg iron) Tablet,Delayed Release (Dr/Ec) 325 mg PO DAILY methenamine hippurate tablet 1 g PO DAILY capsaicin 0.025 % Cream 1 appl topical QID PRN (Reason: low back pain) 30 Days Qty: 50 0RF Protocol: Apply to: Apply to: low back bupropion HCl 300 mg Tablet Extended Release 24 Hr 300 mg PO DAILY 30 Days Qty: 30 0RF lidocaine [Lidocaine Pain Relief] 4 % Adhesive Patch,Medicated 1 patch transdermal DAILY 30 Days Qty: 30 0RF Protocol: Apply to: Apply to: low back Print Language: Unable To Collect
[2024-10-17 11:53] LABS: MANUAL DIFF FLAG NO
[2024-10-17 11:56] LABS: Basophils Absolute Auto 0.1 X10*3/uL (0.0-0.2); Basophils Percent Auto 0.8 % (0-2); Eosinophils Absolute Auto 0.1 X10*3/uL (0.0-0.4); Eosinophils Percent Auto 1.4 % (0-4); Hematocrit 40.7 % (37.0-47.0); Hemoglobin 13.6 g/dl (12.0-16.0); Imm Gran Abs Auto 0.02 X10*3/uL (0.00-0.03); Imm Gran Pct Auto 0.3 % (0.0-0.4); Lymphocytes Percent Auto 26.5 % (20-40); Mean Corpuscular HGB Conc 33.4 g/dl (31.0-35.0); Mean Corpuscular Hemoglobin 32.3 pg (27.0-33.0); Mean Corpuscular Volume 96.7 fL (80.0-98.0); Mean Platelet Volume 9.1 fL (9.4-12.3); Monocytes Absolute Auto 0.7 X10*3/uL (0.1-1.2); Monocytes Percent Auto 8.6 % (2-11); Neutrophils Absolute Auto 4.8 x10*3/uL (2.0-8.3); Neutrophils Percent Auto 62.4 % (45-73); Platelet Count 363 X10*3/uL (160-400); Red Blood Count 4.21 X10*6/uL (4.20-5.50); White Blood Count 7.7 X10*3/uL (4.8-10.8)
[2024-10-17 12:00] LABS: INTERNATIONAL NORM RATIO 1.5 (0.9-1.1); Prothrombin Time 17.5 SEC (10.9-12.4)
[2024-10-17 12:03] LABS: Partial Thromboplastin Time 34.1 SEC (26.0-36.8)
[2024-10-17 12:09] LABS: Alanine Aminotransferase 19 U/L (0-31); Albumin Level 4.1 g/dL (3.5-5.0); Alkaline Phosphatase 104 U/L (39-117); Anion Gap 9 (12-20); Aspartate Amino Transferase 22 U/L (5-31); Bilirubin Total 0.3 mg/dL (0.0-1.0); Blood Urea Nitrogen 11 mg/dL (9-16); Calcium 9.6 mg/dL (8.4-10.2); Carbon Dioxide 28 mmol/L (22-29); Chloride 106 mmol/L (96-108); Creatinine Clr Calc Pharmacy 96.8; Estimated Glomerular Filt Rate > 60; Glucose Random 135 mg/dL (60-115); Magnesium 1.8 mg/dL (1.6-2.6); Potassium 4.1 mmol/L (3.3-5.1); Sodium 139 mmol/L (135-145); Total Protein 7.3 g/dL (6.5-8.0)
--- NOTE | 2024-10-17 12:17 | ECG_ITS ---
Test Reason : CHEST PAIN Blood Pressure : */* mmHG Vent. Rate : 67 BPM Atrial Rate : 67 BPM P-R Int : 180 ms QRS Dur : 98 ms QT Int : 386 ms P-R-T Axes : 45 64 48 degrees QTcB Int : 407 ms Normal sinus rhythm Normal ECG When compared with ECG of 16-Oct-2024 13:31, Minimal criteria for Anterior infarct are no longer Present Criteria for Inferior infarct are no longer Present Referred By: Ivette Montenegro Electronically Signed By: TYLER العراقي
--- NOTE | 2024-10-17 12:21 | PC.NURSE ---
patient is a very difficult stick- able to get basic labs but IV sites have blown. US IV is being attempted by [facility].
[2024-10-17 12:25] LABS: C Reactive Protein 0.39 mg/dL (< or = 0.50)
[2024-10-17 12:26] LABS: Lactic Acid 1.9 mmol/L (0.5-2.0)
[2024-10-17 12:32] LABS: B Type Natriuretic Peptide 55 pg/mL (<100)
--- OUTSIDE RECORDS SUMMARY | 2024-10-17 12:45 | XMS_ITS | Encounter Summary ---
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
--- OUTSIDE RECORDS SUMMARY | 2024-10-17 12:45 | XMS_ITS | Encounter Summary ---
Author Organization [facility] Address [address] [place] [address] Care Team Providers Care Accounts Receivable Assistant Name Role Phone Dede Pimentel NURSING HOME ADMINISTRATOR Primary Care Provider [phone] Encounter Details Date Type Department Care Team (Late st Contact Info) Description 10/13/2024 7:30 AM EDT PACE Home Care / P[facility] Home Visit [facility] [address] [place] [phone] Cheryle Pryor Social History Tobacco Use Types [...] Care Team (Late st Contact Info) Description 10/18/2024 7:30 AM EDT PACE Home Care / PACE Home Visit [facility] [address] [place] [phone] Jhoana Grijalva 10/19/2024 7:30 AM EDT PACE Home Care / [facility] [address] [place] [phone] Jhoana Grijalva 10/20/2024 7:30 AM EDT PACE Home Care / [facility] Visit [facility] [address] [place] [phone] Cheryle Pryor 10/20/2024 9:00 AM EDT [facility] [address] [place] [phone] 10/20/2024 9:00 AM EDT Consult [facility] [address] [place] [phone] 10/21/2024 7:30 AM EDT PACE Home Care / [facility] [address] [place] [phone] Cheryle Pryor 10/21/2024 9:00 AM EDT Consult [facility] [address] [place] [phone] 10/21/2024 10:30 AM EDT PACE Home Care / [facility] [address] [place] [phone] Cheryle Pryor 10/22/2024 7:30 AM EDT PACE Home Care / [facility] Home Visit [facility] [address] [place] [phone] Shawna Lebron 10/22/2024 9:00 AM EDT P[facility] Att[facility] [place] [facility] [address] [place] [phone] 10/22/2024 9:00 AM EDT Consult [facility] [place] [address] [place] [phone] 10/23/2024 7:30 AM EDT PACE Home Care / P[facility] Home Visit [facility] [address] [place] [phone] Cheryle Pryor 10/23/2024 9:00 AM EDT Consult [facility] [address] [place] [phone] 10/24/2024 7:30 AM EDT PACE Home Care / [facility] [address] [place] [phone] Shawna Lebron 10/24/2024 9:00 AM EDT Consult [facility] [place] [address] [place] [phone] 10/25/2024 7:30 AM EDT PACE Home Care / [facility] [address] [place] [phone] Cheryle Pryor 10/26/2024 7:15 AM EDT PACE Home Care / [facility] [address] [place] [phone] Cheryle Pryor 10/27/2024 7:30 AM EDT PACE Home Care / [facility] [address] [place] [phone] Cheryle Pryor 10/27/2024 9:00 AM EDT [facility] [place] [facility] [address] [place] [address] 10/28/2024 7:30 AM EDT PACE Home Care / [facility] Home Visit [facility] [address] [place] [phone] Cheryle Pryor 10/28/2024 10:30 AM EDT PACE Home Care / [facility] [address] [place] [phone] Cheryle Pryor 10/29/2024 7:30 AM EDT PACE Home Care / PACE Home Visit [facility] [address] [place] [phone] Shawna Lebron 10/29/2024 9:00 AM EDT PACE Attendance[facility] [place] [facility] [address] [place] [address] 10/30/2024 7:30 AM EDT PACE Home Care / PACE Home Visit [facility] [address] [place] [phone] Cheryle Pryor 10/31/2024 7:30 AM EDT PACE Home Care / PACE Home Visit [facility] [address] [place] [phone] Shawna Lebron 10/31/2024 10:30 AM EDT PACE Home Care / PACE Home Visit [facility] [address] [place] [phone] Jhoana Grijalva 11/01/2024 7:30 AM EDT PACE Home Care / PACE Home Visit [facility] [address] [place] [phone] Jhoana Grijalva 11/02/2024 7:30 AM EDT PACE Home Care / PACE Home Visit [facility] [address] [place] [phone] Jhoana Grijalva 11/03/2024 7:30 AM EDT PACE Home Care / [facility] [address] [place] [phone] Cheryle Pryor 11/03/2024 9:00 AM EDT PACE Attendance[facility] [place] [facility] [address] [place] [address] 11/04/2024 7:30 AM EDT PACE Home Care / PACE Home Visit [facility] [address] [place] [phone] Cheryle Pryor 11/04/2024 10:30 AM EDT PACE Home Care / PACE Home Visit [facility] [address] [place] [phone] Cheryle Pryor 11/05/2024 7:30 AM EDT PACE Home Care / PACE Home Visit [facility] [address] [place] [phone] Shawna Lebron 11/05/2024 9:00 AM EDT PACE Attendance[facility] [place] [facility] [address] [place] [phone] 11/06/2024 7:30 AM EDT PACE Home Care / PACE Home Visit [facility] [address] [place] [phone] Cheryle Pryor 11/06/2024 10:00 AM EDT Clinical Support [facility] [address] [place] [phone] 11/07/2024 7:30 AM EDT PACE Home Care / PACE Home Visit [facility] [address] [place] [phone] Shawna Lebron 11/07/2024 10:30 AM EDT PACE Home Care / PACE Home Visit [facility] [address] [place] [phone] Jhoana Grijalva 11/08/2024 7:30 AM EDT PACE Home Care / PACE Home Visit [facility] [address] [place] [phone] Cheryle Pryor 11/09/2024 7:30 AM EDT PACE Home Care / [facility] [address] [place] [phone] Cheryle Pryor 11/10/2024 7:30 AM EDT PACE Home Care / [facility] [address] [place] [phone] Cheryle Pryor 11/10/2024 9:00 AM EDT [facility] Att[facility] [place] [facility] [address] [place] [phone] 11/10/2024 9:45 AM EDT Office Visit [facility] [address] [place] [phone] Gemini Simmons MD [address] Boyd [address] [place] [phone] 11/11/2024 7:30 AM EDT PACE Home Care / [facility] Visit [facility] [address] [place] [phone] Cheryle Pryor 11/11/2024 10:30 AM EDT PACE Home Care / [facility] Visit [facility] [address] [place] [phone] Cheryle Pryor 11/12/2024 7:30 AM EDT PACE Home Care / PACE Home Visit [facility] [address] [place] [phone] Shawna Lebron 11/12/2024 9:00 AM EDT P[facility] Attend[facility] [facility] [place] [facility] [address] [place] [address] 11/13/2024 7:30 AM EDT PACE Home Care / PACE Home Visit [facility] [address] [place] [phone] Cheryle Pryor 11/14/2024 7:30 AM EDT PACE Home Care / [facility] Visit [facility] [address] [place] [phone] Shawna Lebron 11/14/2024 10:30 AM EDT PACE Home Care / [facility] Visit [facility] [address] [place] [phone] Jhoana Grijalva 11/15/2024 7:30 AM EDT PACE Home Care / [facility] Visit [facility] [address] [place] [phone] Jhoana Grijalva 11/16/2024 7:30 AM EDT PACE Home Care / P[facility] Visit [facility] [address] [place] [phone] Jhoana Grijalva 11/17/2024 7:30 AM EDT PACE Home Care / PACE [facility] Visit [facility] [address] [place] [phone] Cheryle Pryor 11/17/2024 9:00 AM EDT PACE Att[facility] [place] [facility] [address] [place] [phone] 11/18/2024 7:30 AM EDT PACE Home Care / P[facility] Visit [facility] [address] [place] [phone] Cheryle Pryor 11/18/2024 10:30 AM EDT PACE Home Care / P[facility] Visit [facility] [address] [place] [phone] Cheryle Pryor 11/19/2024 7:30 AM EDT PACE Home Care / PACE [facility] Visit [facility] [address] [place] [phone] Shawna Lebron 11/19/2024 9:00 AM EDT [facility] Att[facility] [place] [facility] [address] [place] [phone] 11/20/2024 7:30 AM EDT PACE Home Care / PACE [facility] Visit [facility] [address] [place] [phone] Cheryle Pryor 11/21/2024 7:30 AM EDT PACE Home Care / PACE [facility] Visit [facility] [address] [place] [phone] Shawna Lebron 11/21/2024 10:30 AM EDT PACE Home Care / P[facility] Visit [facility] [address] [place] [phone] Jhoana Grijalva 11/22/2024 7:30 AM EDT PACE Home Care / PACE Home Visit [facility] [address] [place] [phone] Cheryle Pryor 11/23/2024 7:30 AM EDT PACE Home Care / PACE [facility] Visit [facility] [address] [place] [phone] Cheryle Pryor 11/24/2024 7:30 AM EDT PACE Home Care / PACE [facility] Visit [facility] [address] [place] [phone] Cheryle Pryor 11/24/2024 9:00 AM EDT [facility] Att[facility] [place] [facility] [address] [place] [phone] 11/25/2024 7:30 AM EDT PACE Home Care / PACE Home Visit [facility] [address] [place] [phone] Cheryle Pryor 11/25/2024 10:30 AM EDT PACE Home Care / P[facility] Visit [facility] [address] [place] [phone] Cheryle Pryor 11/26/2024 7:30 AM EDT PACE Home Care / PACE [facility] Visit [facility] [address] [place] [phone] Shawna Lebron 11/26/2024 9:00 AM EDT PACE Attendance/[facility] [place] [facility] [address] [place] [phone] 11/27/2024 7:30 AM EDT PACE Home Care / [facility] [address] [place] [phone] Cheryle Pryor 11/28/2024 7:30 AM EDT PACE Home Care / [facility] Visit [facility] [address] [place] [phone] Shawna Lebron 11/28/2024 10:30 AM EDT PACE Home Care / PACE Home Visit [facility] [address] [place] [phone] Jhoana Grijalva 11/29/2024 7:30 AM EDT PACE Home Care / P[facility] Visit [facility] [address] [place] [phone] Jhoana Grijalva 11/30/2024 7:30 AM EDT PACE Home Care / PACE [facility] Visit [facility] [address] [place] [phone] Jhoana Grijalva 12/01/2024 7:30 AM EDT PACE Home Care / PACE [facility] Visit [facility] [address] [place] [phone] Cheryle Pryor 12/01/2024 9:00 AM EDT P[facility] Att[facility] [place] [facility] [address] [place] [phone] 12/02/2024 7:30 AM EDT PACE Home Care / [facility] Visit [facility] [address] [place] [phone] Cheryle Pryor 12/03/2024 7:30 AM EDT PACE Home Care / PACE [facility] Visit [facility] [address] [place] [phone] Shawna Lebron 12/03/2024 9:00 AM EDT PACE Attendance/[facility] [place] [facility] [address] [place] [phone] 12/04/2024 7:30 AM EDT PACE Home Care / P[facility] Visit [facility] [address] [place] [phone] Cheryle Pryor 12/05/2024 7:30 AM EDT PACE Home Care / PACE Home Visit [facility] [address] [place] [phone] Shawna Lebron 12/05/2024 10:30 AM EDT PACE Home Care / [facility] [address] [place] [phone] Jhoana Grijalva 12/06/2024 7:30 AM EDT PACE Home Care / P[facility] Visit [facility] [address] [place] [phone] Cheryle Pryor 12/07/2024 7:30 AM EDT PACE Home Care / P[facility] [address] [place] [phone] Cheryle Gordon 12/08/2024 9:00 AM EDT [facility] Att[facility] [place] [facility] [address] [place] [address] 12/10/2024 9:00 AM EDT [facility] Att[facility] [place] [facility] [address] [place] [address] 12/15/2024 9:00 AM EDT P[facility] Attend[facility] [place] [facility] [address] [place] [address] 12/17/2024 9:00 AM EDT [facility] [address] [place] [phone] 12/22/2024 9:00 AM EDT P[facility] Att[facility] [place] [facility] [address] [place] [phone] 12/24/2024 9:00 AM EDT P[facility] Att[facility] [place] [facility] [address] [place] [phone] 12/29/2024 9:00 AM EDT P[facility] Att[facility] [place] [facility] [address] [place] [phone] 12/31/2024 9:00 AM EDT P[facility] Att[facility] [place] [facility] [address] [place] [phone] 01/05/2025 9:00 AM EDT [facility] Att[facility] [place] [facility] [address] [place] [address] 01/07/2025 9:00 AM EDT P[facility] Attend[facility] [place] [facility] [address] [place] [address] 01/12/2025 9:00 AM EDT P[facility] Attend[facility] [place] [facility] [address] [place] [phone] 01/14/2025 9:00 AM EDT PACE Attendance[facility] [place] [facility] [address] [place] [address] 01/19/2025 9:00 AM EDT P[facility] Attendance[facility] [place] [facility] [address] [place] [address] 01/21/2025 9:00 AM EDT P[facility] Attendance[facility] [place] [facility] [address] [place] [address] 01/26/2025 9:00 AM EDT PACE Attendance[facility] [place] [facility] [address] [place] [phone] 01/28/2025 9:00 AM EDT PACE Attendance[facility] [place] [facility] [address] [place] [phone] 02/02/2025 9:00 AM EDT PACE Attendance[facility] [place] [facility] [address] [place] [phone] 02/04/2025 9:00 AM EDT PACE Attendance[facility] [place] [facility] [address] [place] [phone] 02/09/2025 9:00 AM EDT PACE Attendance[facility] [place] [facility] [address] [place] [phone] 02/11/2025 9:00 AM EDT PACE Attendance[facility] [place] [facility] [address] [place] [address] 02/16/2025 9:00 AM EDT P[facility] Att[facility] [place] [facility] [address] [place] [address] 02/18/2025 9:00 AM EDT P[facility] Att[facility] [place] [facility] [address] [place] [phone] 02/23/2025 9:00 AM EDT [facility] Att[facility] [place] [facility] [address] [place] [address] 02/25/2025 9:00 AM EDT [facility] [place] [facility] [address] [place] [address] 03/02/2025 9:00 AM EDT PACE Attendance[facility] [place] [facility] [address] [place] [address] 03/04/2025 9:00 AM EDT P[facility] Attendance[facility] [place] [facility] [address] [place] [address] 03/09/2025 9:00 AM EDT P[facility] Attendance[facility] [place] [facility] [address] [place] [address] 03/11/2025 9:00 AM EDT PACE Attendance[facility] [place] [facility] [address] [place] [phone] 03/16/2025 9:00 AM EDT PACE Attendance[facility] [place] [facility] [address] [place] [phone] 03/18/2025 9:00 AM EDT [facility] [place] [facility] [address] [place] [phone] 03/23/2025 9:00 AM EDT [facility] [place] [facility] [address] [place] [address] 03/25/2025 9:00 AM EDT [facility] Att[facility] [place] [facility] [address] [place] [address] 03/30/2025 9:00 AM EDT [facility] Att[facility] [place] [facility] [address] [place] [address] 04/01/2025 9:00 AM EDT [facility] [place] [facility] [address] [place] [address] 04/06/2025 9:00 AM EDT [facility] Att[facility] [place] [facility] [address] [place] [address] 04/08/2025 9:00 AM EDT [facility] [place] [facility] [address] [place] [address] 04/13/2025 9:00 AM EDT [facility] [place] [facility] [address] [place] [phone] 04/15/2025 9:00 AM EDT [facility] [place] [facility] [address] [place] [address] 04/20/2025 9:00 AM EDT [facility] Att[facility] [place] [facility] [address] [place] [address] 04/22/2025 9:00 AM EDT [facility] [place] [facility] [address] [place] [address] 04/27/2025 9:00 AM EST [facility] Attend[facility] [place] [facility] [address] [place] [phone] 04/29/2025 9:00 AM EST [facility] [place] [facility] [address] [place] [address] 05/04/2025 9:00 AM EST [facility] [place] [facility] [address] [place] [address] 05/06/2025 9:00 AM EST [facility] [place] [facility] [address] [place] [address] 05/11/2025 9:00 AM EST [facility] [place] [facility] [address] [place] [address] 05/13/2025 9:00 AM EST [facility] [place] [facility] [address] [place] [address] 05/18/2025 9:00 AM EST [facility] [place] [facility] [address] [place] [phone] 05/20/2025 9:00 AM EST [facility] [place] [facility] [address] [place] [address] 05/25/2025 9:00 AM EST [facility] [place] [facility] [address] [place] [address] 05/27/2025 9:00 AM EST [facility] [address] [place] [phone] 06/01/2025 9:00 AM EST [facility] [place] [facility] [address] [place] [address] 06/03/2025 9:00 AM EST [facility] [place] [facility] [address] [place] [address] 06/08/2025 9:00 AM EST [facility] [place] [facility] [address] [place] [address] 06/10/2025 9:00 AM EST [facility] [place] [facility] [address] [place] [address] 06/15/2025 9:00 AM EST [facility] [place] [facility] [address] [place] [address] 06/17/2025 9:00 AM EST [facility] [place] [facility] [address] [place] [address] 06/22/2025 9:00 AM EST [facility] [place] [facility] [address] [place] [address] 06/24/2025 9:00 AM EST [facility] [place] [facility] [address] [place] [address] 06/29/2025 9:00 AM EST [facility] [place] [facility] [address] [place] [address] 07/01/2025 9:00 AM EST [facility] [place] [facility] [address] [place] [phone] 07/06/2025 9:00 AM EST P[facility] [place] [facility] [address] [place] [address] 2025 9:00 AM EST [facility] [place] [facility] [address] [place] [address] 07/13/2025 9:00 AM EST [facility] [place] [facility] [address] [place] [address] 07/15/2025 9:00 AM EST [facility] [place] [facility] [address] [place] [address] 07/20/2025 9:00 AM EST [facility] [place] [facility] [address] [place] [address] 07/22/2025 9:00 AM EST [facility] [place] [facility] [address] [place] [address] 07/27/2025 9:00 AM EST [facility] Att[facility] [place] [facility] [address] [place] [address] 07/29/2025 9:00 AM EST PACE Attendance/Day Center [employer] [facility] [address] [place] [address] 08/03/2025 9:00 AM EST P[facility] [place] [employer] [address] [address] documented as of this encounter Visit Diagnoses Not on filedocumented in this encounter Care Teams Accounts Receivable Assistant Relationship Specialty Start Date End Date Dede Pimentel NP [address] [place] [id number] PCP - General Family Medicine 05/02/24 documented as of this encounter
--- OUTSIDE RECORDS SUMMARY | 2024-10-17 12:45 | XMS_ITS | Encounter Summary ---
Author Organization [facility] Address [address] [place] [address] Care Team Providers Care Engraver [employer] Name Role Phone Unavailable Primary Care Provider [...]
--- OUTSIDE RECORDS SUMMARY | 2024-10-17 12:45 | XMS_ITS | Encounter Summary ---
Author Organization [facility] Address [address] [place] [address] Care Team Providers Care Research/Program Director Name Role Phone Dede Pimentel RADIOLOGY ORDERLY Primary Care Provider Reason for Visit * Reason Comments Diarrhea Nausea Encounter Details Date Type Department Care Team (Late st Contact Info) Description 10/13/2024 11:00 AM EDT Clinical Support [facility] [address] [place] [address] Sandy Keith RN Social History Tobacco Use Types Packs/Day Years [...] Able to keep fluids down this morning. [id number] qh x2 days left with par. Educated [...] [facility] [address] [place] [phone] Jhoana Grijalva 10/19/2024 7:30 AM EDT PACE Home Care / PACE Home Visit [facility] [address] [place] [phone] Jhoana Grijalva 10/20/2024 7:30 AM EDT PACE Home Care / PACE Home Visit [facility] [address] [place] [phone] Cheryle Pryor 10/20/2024 9:00 AM EDT PACE Attendance/[facility] [place] [facility] [address] [place] [address] 10/20/2024 9:00 AM EDT Consult [facility] [place] [address] [place] [phone] 10/21/2024 7:30 AM EDT PACE Home Care / PACE Home Visit [facility] [address] [place] [phone] Cheryle Pryor 10/21/2024 9:00 AM EDT Consult [facility] [place] [address] [place] [phone] 10/21/2024 10:30 AM EDT PACE Home Care / PACE Home Visit [facility] [address] [place] [phone] Cheryle Pryor 10/22/2024 7:30 AM EDT PACE Home Care / [facility] [address] [place] [phone] Shawna Lebron 10/22/2024 9:00 AM EDT PACE Attendance/[facility] [place] [facility] [address] [place] [phone] 10/22/2024 9:00 AM EDT Consult [facility] [address] [place] [phone] 10/23/2024 7:30 AM EDT PACE Home Care / [facility] [place] [facility] [address] [place] [phone] Cheryle Pryor 10/23/2024 9:00 AM EDT Consult [facility] [place] [address] [place] [phone] 10/24/2024 7:30 AM EDT PACE Home Care / [facility] [address] [place] [phone] Shawna Lebron 10/24/2024 9:00 AM EDT Consult [facility] [place] [address] [place] [address] 10/25/2024 7:30 AM EDT PACE Home Care / [facility] Visit [facility] [place] [facility] [address] [place] [address] Cheryle Pryor 10/26/2024 7:15 AM EDT PACE Home Care / PACE Home Visit [facility] [place] [facility] [address] [place] [address] Cheryle Pryor 10/27/2024 7:30 AM EDT PACE Home Care / P[facility] Home Visit [facility] [place] [facility] [address] [place] [phone] Cheryle Pryor 10/27/2024 9:00 AM EDT PACE Attendance[facility] [place] [facility] [address] [place] [phone] 10/28/2024 7:30 AM EDT PACE Home Care / [facility] [place] [facility] [address] [place] [phone] Cheryle Pryor 10/28/2024 10:30 AM EDT PACE Home Care / [facility] [place] [facility] [address] [place] [phone] Cheryle Proyr 10/29/2024 7:30 AM EDT PACE Home Care / [facility] Home Visit [facility] [place] [facility] [address] [place] [phone] Shawna Lebron 10/29/2024 9:00 AM EDT PACE Attendance[facility] [place] [facility] [address] [place] [address] 10/30/2024 7:30 AM EDT PACE Home Care / [facility] Visit [facility] [place] [facility] [address] [place] [address] Cheryle Pryor 10/31/2024 7:30 AM EDT PACE Home Care / PACE Home Visit [facility] [place] [facility] [address] [place] [phone] Shawna Lebron 10/31/2024 10:30 AM EDT PACE Home Care / PACE Home Visit [facility] [place] [facility] [address] [place] [phone] Jhoana Grijalva 11/01/2024 7:30 AM EDT PACE Home Care / PACE Home Visit [facility] [address] [place] [phone] Jhoana Grijalva 11/02/2024 7:30 AM EDT PACE Home Care / PACE Home Visit [facility] [place] [facility] [address] [place] [phone] Jhoana Grijalva 11/03/2024 7:30 AM EDT PACE Home Care / PACE Home Visit [facility] [place] [facility] [address] [place] [phone] Cheryle Pryor 11/03/2024 9:00 AM EDT PACE Attendance/[facility] [place] [facility] [address] [place] [phone] 11/04/2024 7:30 AM EDT PACE Home Care / [facility] Visit [facility] [place] [facility] [address] [place] [phone] Cheryle Pryor 11/04/2024 10:30 AM EDT PACE Home Care / [facility] Visit [facility] [place] [facility] [address] [place] [phone] Cheryle Pryor 11/05/2024 7:30 AM EDT PACE Home Care / [facility] Visit [facility] [place] [facility] [address] [place] [phone] Shawna Lebron 11/05/2024 9:00 AM EDT PACE Attendance/[facility] [place] [facility] [address] [place] [phone] 11/06/2024 7:30 AM EDT PACE Home Care / PACE Home Visit [facility] [place] [facility] [address] [place] [phone] Cheryle Pryor 11/06/2024 10:00 AM EDT Clinical Support [facility] [place] [address] [place] [phone] 11/07/2024 7:30 AM EDT PACE Home Care / PACE Home Visit [facility] [place] [facility] [address] [place] [phone] Shawna Lebron 11/07/2024 10:30 AM EDT PACE Home Care / PACE Home Visit [facility] [place] [facility] [address] [place] [phone] Jhoana Grijalva 11/08/2024 7:30 AM EDT PACE Home Care / PACE Home Visit [facility] [place] [facility] [address] [place] [phone] Cheryle Pryor 11/09/2024 7:30 AM EDT PACE Home Care / PACE Home Visit [facility] [place] [facility] [address] [place] [phone] Cheryle Pryor 11/10/2024 7:30 AM EDT PACE Home Care / PACE Home Visit [facility] [place] [facility] [address] [place] [phone] Cheryle Pryor 11/10/2024 9:00 AM EDT PACE Attendance[facility] [place] [facility] [address] [place] [phone] 11/10/2024 9:45 AM EDT Office Visit [facility] [address] [place] [phone] Gemini Simmons MD [address] [facility] [address] [place] [address] 11/11/2024 7:30 AM EDT PACE Home Care / PACE Home Visit [facility] [place] [facility] [address] [place] [phone] Cheryle Pryor 11/11/2024 10:30 AM EDT PACE Home Care / PACE Home Visit [facility] [place] [facility] [address] [place] [phone] Cheryle Pryor 11/12/2024 7:30 AM EDT PACE Home Care / PACE Home Visit [facility] [place] [facility] [address] [place] [phone] Shawna Lebron 11/12/2024 9:00 AM EDT PACE Attendance/[facility] [place] [facility] [address] [place] [phone] 11/13/2024 7:30 AM EDT PACE Home Care / PACE Home Visit [facility] [address] [place] [phone] Cheryle Pryor 11/14/2024 7:30 AM EDT PACE Home Care / [facility] Visit [facility] [address] [place] [phone] Shawna Lebron 11/14/2024 10:30 AM EDT PACE Home Care / P[facility] Home Visit [facility] [place] [facility] [address] [place] [phone] Jhoana Grijalva 11/15/2024 7:30 AM EDT PACE Home Care / [facility] Visit [facility] [place] [facility] [address] [place] [address] Jhoana Grijalva 11/16/2024 7:30 AM EDT PACE Home Care / PACE Home Visit [facility] [place] [facility] [address] [place] [phone] Jhoana Grijalva 11/17/2024 7:30 AM EDT PACE Home Care / PACE Home Visit [facility] [address] [place] [phone] Cheryle Pryor 11/17/2024 9:00 AM EDT PACE Attendance/[facility] [place] [facility] [address] [place] [phone] 11/18/2024 7:30 AM EDT PACE Home Care / PACE Home Visit [facility] [address] [place] [phone] Cheryle Pryor 11/18/2024 10:30 AM EDT PACE Home Care / PACE Home Visit [facility] [place] [facility] [address] [place] [phone] Cheryle Pryor 11/19/2024 7:30 AM EDT PACE Home Care / PACE Home Visit [facility] [place] [facility] [address] [place] [phone] Shawna Lebron 11/19/2024 9:00 AM EDT PACE Attendance/[facility] [place] [facility] [address] [place] [phone] 11/20/2024 7:30 AM EDT PACE Home Care / PACE Home Visit [facility] [place] [facility] [address] [place] [phone] Cheryle Pryor 11/21/2024 7:30 AM EDT PACE Home Care / PACE Home Visit [facility] [place] [facility] [address] [place] [phone] Shawna Lebron 11/21/2024 10:30 AM EDT PACE Home Care / P[facility] Visit [facility] [address] [place] [phone] Jhoana Grijalva 11/22/2024 7:30 AM EDT PACE Home Care / [facility] Visit [facility] [place] [facility] [address] [place] [phone] Cheryle Pryor 11/23/2024 7:30 AM EDT PACE Home Care / [facility] Visit [facility] [place] [facility] [address] [place] [phone] Cheryle Pryor 11/24/2024 7:30 AM EDT PACE Home Care / PACE Home Visit [facility] [place] [facility] [address] [place] [phone] Cheryle Pryor 11/24/2024 9:00 AM EDT PACE Attendance[facility] [place] [facility] [address] [place] [phone] 11/25/2024 7:30 AM EDT PACE Home Care / PACE [facility] Visit [facility] [place] [facility] [address] [place] [phone] Cheryle Pryor 11/25/2024 10:30 AM EDT PACE Home Care / [facility] Visit [facility] [address] [place] [phone] Cheryle Pryor 11/26/2024 7:30 AM EDT PACE Home Care / [facility] Visit [facility] [address] [place] [phone] Shawna Lebron 11/26/2024 9:00 AM EDT PACE Attendance[facility] [place] [facility] [address] [place] [phone] 11/27/2024 7:30 AM EDT PACE Home Care / [facility] Visit [facility] [address] [place] [phone] Cheryle Pryor 11/28/2024 7:30 AM EDT PACE Home Care / [facility] Visit [facility] [address] [place] [phone] Shawna Lebron 11/28/2024 10:30 AM EDT PACE Home Care / [facility] Visit [facility] [address] [place] [phone] Jhoana Grijalva 11/29/2024 7:30 AM EDT PACE Home Care / [facility] Visit [facility] [address] [place] [phone] Jhoana Grijalva 11/30/2024 7:30 AM EDT PACE Home Care / [facility] Visit [facility] [address] [place] [phone] Jhoana Grijalva 12/01/2024 7:30 AM EDT PACE Home Care / [facility] Visit [facility] [address] [place] [phone] Cheryle Pryor 12/01/2024 9:00 AM EDT PACE Attendance[facility] [place] [facility] [address] [place] [address] 12/02/2024 7:30 AM EDT PACE Home Care / [facility] Visit [facility] [address] [place] [phone] Cheryle Pryor 12/03/2024 7:30 AM EDT PACE Home Care / [facility] [address] [place] [phone] Shawna Lebron 12/03/2024 9:00 AM EDT PACE Attendance[facility] [place] [facility] [address] [place] [address] 12/04/2024 7:30 AM EDT PACE Home Care / [facility] Visit [facility] [address] [place] [address] Cheryle Pryor 12/05/2024 7:30 AM EDT PACE Home Care / [facility] Visit [facility] [address] [place] [phone] Shawna Lebron 12/05/2024 10:30 AM EDT PACE Home Care / [facility] [address] [place] [phone] Jhoana Grijalva 12/06/2024 7:30 AM EDT PACE Home Care / [facility] [address] [place] [phone] Cheryle Pryor 12/07/2024 7:30 AM EDT PACE Home Care / [facility] [address] [place] [phone] Cheryle Pryor 12/08/2024 9:00 AM EDT PACE Attendance[facility] [place] [facility] [address] [place] [address] 12/10/2024 9:00 AM EDT PACE Attendance[facility] [place] [facility] [address] [place] [phone] 12/15/2024 9:00 AM EDT P[facility] Att[facility] [place] [facility] [address] [place] [address] 12/17/2024 9:00 AM EDT P[facility] Attendance[facility] [place] [facility] [address] [place] [address] 12/22/2024 9:00 AM EDT PACE Attendance[facility] [place] [facility] [address] [place] [address] 12/24/2024 9:00 AM EDT PACE Attendance[facility] [place] [facility] [address] [place] [address] 12/29/2024 9:00 AM EDT PACE Attendance[facility] [place] [facility] [address] [place] [address] 12/31/2024 9:00 AM EDT PACE Attendance[facility] [place] [facility] [address] [place] [address] 01/05/2025 9:00 AM EDT PACE Attend[facility] [place] [facility] [address] [place] [address] 01/07/2025 9:00 AM EDT PACE Attendance[facility] [place] [facility] [address] [place] [phone] 01/12/2025 9:00 AM EDT PACE Attendance[facility] [place] [facility] [address] [place] [address] 01/14/2025 9:00 AM EDT PACE Attendance[facility] [place] [facility] [address] [place] [address] 01/19/2025 9:00 AM EDT PACE Attend[facility] [place] [facility] [address] [place] [address] 01/21/2025 9:00 AM EDT PACE Attend[facility] [place] [facility] [address] [place] [address] 01/26/2025 9:00 AM EDT PACE Attend[facility] [place] [facility] [address] [place] [address] 01/28/2025 9:00 AM EDT PACE Attendance[facility] [place] [facility] [address] [place] [address] 02/02/2025 9:00 AM EDT PACE Attend[facility] [place] [facility] [address] [place] [address] 02/04/2025 9:00 AM EDT PACE Attend[facility] [place] [facility] [address] [place] [address] 02/09/2025 9:00 AM EDT PACE Attendance[facility] [place] [facility] [address] [place] [phone] 02/11/2025 9:00 AM EDT PACE Attendance[facility] [place] [facility] [address] [place] [phone] 02/16/2025 9:00 AM EDT PACE Attendance[facility] [place] [facility] [address] [place] [phone] 02/18/2025 9:00 AM EDT PACE Attendance[facility] [place] [facility] [address] [place] [phone] 02/23/2025 9:00 AM EDT PACE Attendance[facility] [place] [facility] [address] [place] [phone] 02/25/2025 9:00 AM EDT PACE Att[facility] [place] [facility] [address] [place] [phone] 03/02/2025 9:00 AM EDT PACE Att[facility] [place] [facility] [address] [place] [phone] 03/04/2025 9:00 AM EDT PACE Att[facility] [place] [facility] [address] [place] [phone] 03/09/2025 9:00 AM EDT PACE Attendance[facility] [place] [facility] [address] [place] [address] 03/11/2025 9:00 AM EDT PACE Attendance[facility] [place] [facility] [address] [place] [address] 03/16/2025 9:00 AM EDT PACE Attendance[facility] [place] [facility] [address] [place] [phone] 03/18/2025 9:00 AM EDT PACE Attendance[facility] [place] [facility] [address] [place] [phone] 03/23/2025 9:00 AM EDT PACE Attendance[facility] [place] [facility] [address] [place] [address] 03/25/2025 9:00 AM EDT PACE Attendance[facility] [place] [facility] [address] [place] [address] 03/30/2025 9:00 AM EDT PACE Attendance[facility] [place] [facility] [address] [place] [phone] 04/01/2025 9:00 AM EDT P[facility] [place] [facility] [address] [place] [address] 04/06/2025 9:00 AM EDT PACE Att[facility] [place] [facility] [address] [place] [address] 04/08/2025 9:00 AM EDT P[facility] Att[facility] [place] [facility] [address] [place] [address] 04/13/2025 9:00 AM EDT P[facility] [place] [facility] [address] [place] [phone] 04/15/2025 9:00 AM EDT P[facility] Att[facility] [place] [facility] [address] [place] [address] 04/20/2025 9:00 AM EDT P[facility] Att[facility] [place] [facility] [address] [place] [phone] 04/22/2025 9:00 AM EDT P[facility] [place] [facility] [address] [place] [address] 04/27/2025 9:00 AM EST PACE Attend[facility] [place] [facility] [address] [place] [address] 04/29/2025 9:00 AM EST PACE Att[facility] [place] [facility] [address] [place] [address] 05/04/2025 9:00 AM EST PACE Attend[facility] [place] [facility] [address] [place] [phone] 05/06/2025 9:00 AM EST PACE Att[facility] [place] [facility] [address] [place] [address] 05/11/2025 9:00 AM EST P[facility] Att[facility] [place] [facility] [address] [place] [address] 05/13/2025 9:00 AM EST P[facility] Att[facility] [place] [facility] [address] [place] [address] 05/18/2025 9:00 AM EST PACE Attend[facility] [place] [facility] [address] [place] [address] 05/20/2025 9:00 AM EST PACE Att[facility] [place] [facility] [address] [place] [address] 05/25/2025 9:00 AM EST P[facility] Att[facility] [place] [facility] [address] [place] [address] 05/27/2025 9:00 AM EST PACE Attend[facility] [place] [facility] [address] [place] [address] 06/01/2025 9:00 AM EST PACE Attend[facility] [place] [facility] [address] [place] [address] 06/03/2025 9:00 AM EST PACE Attend[facility] [place] [facility] [address] [place] [address] 06/08/2025 9:00 AM EST PACE Attend[facility] [place] [facility] [address] [place] [address] 06/10/2025 9:00 AM EST PACE Attend[facility] [place] [facility] [address] [place] [address] 06/15/2025 9:00 AM EST PACE Att[facility] [place] [facility] [address] [place] [phone] 06/17/2025 9:00 AM EST PACE Attendance/[facility] [place] [facility] [address] [place] [address] 06/22/2025 9:00 AM EST PACE Attend[facility] [place] [facility] [address] [place] [address] 06/24/2025 9:00 AM EST PACE Attend[facility] [place] [facility] [address] [place] [address] 06/29/2025 9:00 AM EST PACE Attend[facility] [place] [facility] [address] [place] [address] 07/01/2025 9:00 AM EST PACE Attend[facility] [place] [facility] [address] [place] [address] 07/06/2025 9:00 AM EST PACE Attend[facility] [place] [facility] [address] [place] [phone] 2025 9:00 AM EST PACE Attend[facility] [place] [facility] [address] [place] [phone] 07/13/2025 9:00 AM EST PACE Attend[facility] [place] [facility] [address] [place] [address] 07/15/2025 9:00 AM EST PACE Attend[facility] [place] [facility] [address] [place] [phone] 07/20/2025 9:00 AM EST PACE Attendance/[facility] [place] [facility] [address] [place] [address] 07/22/2025 9:00 AM EST PACE Attendance/[facility] [place] [facility] [address] [place] [phone] 07/27/2025 9:00 AM EST PACE Attend[facility] [place] [facility] [address] [place] [phone] 07/29/2025 9:00 AM EST PACE Attendance/[facility] [place] [facility] [address] [place] [phone] 08/03/2025 9:00 AM EST PACE Attendance/[facility] [place] [facility] [address] [place] [phone] documented as of this encounter Visit Diagnoses Not on filedocumented in this encounter Care Teams Research/Program Director Relationship Specialty Start Date End Date Dede Pimentel NP [address] [place] [id number] PCP - General Family Medicine 05/02/24 documented as of this encounter
--- OUTSIDE RECORDS SUMMARY | 2024-10-17 12:46 | XMS_ITS ---
Author Organization [facility] Address [address] [place] [address] Care Team Providers Care Rib Cutter Name Role Phone Dede Pimentel HARDWARE SALES ASSISTANT Primary Care Provider [phone] [facility] Status:Enrolled (Active) Start date:09/24/2023 Enrollment date:09/24/2023 Related social drivers of health:Housing Instability, Financial Risk, Transportation, Social Isolation, Food Risk Related service episodes:[facility] (Active) Overview This episode will track [facility] documentation. Case Team Name Relationship Phone Dede Pimentel HARDWARE SALES ASSISTANT Nurse Practitioner Reji Weems Recreational Therapist Sandy Keith RN Bank Accountant Jesi Larkin ETL MANAGER Molding Cutter Horace Nagy RD Dietitian Arnav Thomas PT Physical Therapist Ad[facility]o [facility] Econom[facility] Julio CEBALLOSW Platform Operations Director Mariah Le Platform Operations Director Kenneth Castellon Spiritual Care Priyanka Duarte OT Occupational Therapist Charisse Ramos RN Registered Nurse Yaritza Oden MD Primary Care Provider Continued Care and Services Coordination
--- OUTSIDE RECORDS SUMMARY | 2024-10-17 12:46 | XMS_ITS | Clinical Summary ---
Author Organization [facility] Address [address] [place] [address] Care Team Providers Care Public Health Nutritionist Name Role Phone Wale Pimentel TOP CARRIER Primary Care Provider [phone] Allergies Active Allergy Reactions Criticality Noted Date [...] mcg/actuation inhalerIndications :Chronic respiratory failure with hypoxia ([facility] V24, [facility] V28) Inhale 2 puffs by mouth every 6 (six) hours if needed for wheezing or shortness of breath. 6.7 g 09/13/19 25 2024 Active fluticasone-umecli dinium-vilanterol (Trelegy Ellipta) 100-62.5-25 mcg inhalerIndications :Chronic respiratory failure with hypoxia ([facility] V24, [facility] V28) Inhale 1 puff (100 mcg total) [...] coma, without long-term current use of insulin ([facility] V24, [facility] V28) Take 1 tablet (500 mg total) by mouth 1 (one) time each day with breakfast. 1 tab by mouth 1 time per day in the evening with meals 28 each 10/04/19 25 2025 Active potassium chloride (MICRO-K) 10 mEq CR capsuleIndications :Hypertensive heart disease with congestive heart failure, unspecified heart failure type ([facility] V24, [facility] V28) Take 1 capsule (10 mEq total) by mouth 1 (one) time each day. 1 tab by mouth 2 times per day 28 each 10/04/19 25 2025 Active OXcarbazepine (TRILEPTAL) 300 mg tabletIndications: Conversion disorder with attacks or seizures,Bipolar 1 disorder ([facility] V24, [facility] V28) Take 2 tablets (600 mg total) by mouth 2 (two) times a day. 112 each 10/04/192025 Active nicotine (NICODERM CQ) 21 mg/24 hrIndications:Toba accountant auditor use disorder Place 1 patch on the [...] (ATIVAN) 1 mg tabletIndications: Bipolar 1 disorder ([facility] V24, [facility] V28),Depression with anxiety,Anxiety Take 1 tablet (1 [...] total) by mouth at bedtime. Center ([facility] [place]) 28 each 10/04/19 25 2025 Active capsaicin [...] [place]. Please have these mailed to the [place] by tomorrow. Attn: Carole Aquino LPN Take [...] er) nicotine (NICODERM CQ) 21 mg/24 hrIndications:Toba accountant auditor use disorder Place 1 patch on the [...] (PROzac) 20 mg capsuleIndications :Bipolar 1 disorder ([facility] V24, [facility] V28) Take 1 capsule (20 mg total) [...] unspecified HF chronicity, unspecified heart failure type ([facility] V24, [facility] V28) Take 1 tablet (2 mg total) by mouth 1 (one) time each day in the morning for 28 days. 1 tab QAM 28 each 09/02/192024 Discontin ued(Reord er) atorvastatin (LIPITOR) 40 mg tabletIndications: Cerebrovascular accident (CVA), unspecified mechanism ([facility] V24, [facility] V28) Take 1 tablet (40 mg total) [...] coma, without long-term current use of insulin ([facility] V24, [facility] V28) Take 1 tablet (500 mg total) [...] (ATIVAN) 1 mg tabletIndications: Bipolar 1 disorder ([facility] V24, [facility] V28),Depression with anxiety,Anxiety Take 1 tablet (1 [...] (KlonoPIN) 1 mg tabletIndications: Anxiety,Bipolar 1 disorder ([facility] V24, [facility] V28) Take 1 tablet (1 mg total) [...] with mood dist urbance, unspecified dementia type ([facility] V24, [facility] V28) 09/27/2024 Assessment & Plan (09/27/2024 6:42 [...] Type 2 diabetes mellitus wit h hypoglycemia ([facility] V24, [facility] V28) 07/30/2024 Assessment & Plan (10/07/2024 3:43 [...] Encourage weight bearing exercises. Paroxysmal atrial fibrillation ([facility] V24, [facility] V28) 01/29/2024 Assessment & Plan (09/27/2024 6:49 PM EDT): Chronic condition; stable. Continue beta donna and oral anticoagulant. Monitor for s/s of acute bleeding. Assessment & Plan (09/27/2024 6:50 PM EDT): >>ASSESSMENT AND PLAN FOR PAROXYSMAL ATRIAL FIBRILLATION ([facility]) WRITTEN ON 09/12/2024 8:30 PM BY YARITZA [...] not crush or chew. Congestive heart failure ([facility] V24, [facility] V 28) 01/29/2024 Overview (09/27/2024): CHF, Chronic Diastolic >>OVERVIEW FOR HYPERTENSIVE HEART DISEASE WITH CONGESTIVE HEART FAILURE ([facility]) WRITTEN ON 07/30/2024 3:40 PM BY DAMIEN IBARRA Hypertension with CHF Assessment & Plan (09/27/2024 6:52 PM EDT): Chronic condition; stable. Euvolemic. Admits to non compliance with diuretic. Educated on the importance of medication compliance. Monitor. Assessment & Plan (09/27/2024 6:53 PM EDT): >>ASSESSMENT AND PLAN FOR CONGESTIVE HEART FAILURE ([facility]) WRITTEN ON 09/12/2024 8:30 PM BY YARITZA [...] HYPERTENSIVE HEART DISEASE WITH CONGESTIVE HEART FAILURE ([facility]) WRITTEN ON 09/12/2024 8:30 PM BY YARITZA [...] U/a and urine culture. Being send to [facility] ED for suicidal ideation. Assessment & Plan [...] about 6 weeks ago. Bipolar 1 disorder ([facility] V24, [facility] V28) Overview (04/17/2024): Last Assessment & Plan: Continue home medication. Assessment & Plan (10/08/2024 1:47 PM EDT): Chronic condition. Continue current medications. Continue intensive outpatient program on Sunday. Follow-up with psychiatry as well. Assessment & Plan (09/27/2024 7:15 PM EDT): Chronic condition; unstable. Very depressed with sucidial ideation. May need meds adjusted. EMS called to take PAR to [facility]. Assessment & Plan (09/04/2024 3:45 PM EDT): [...] plan. EMS called and PAR taken to [facility]. Assessment & Plan (09/04/2024 3:45 PM EDT): [...] perfusion scan 2021, echo done 2022 @ [facility] Assessment & Plan (09/27/2024 7:16 PM EDT): [...] sleep apnea) 06/28/2021 Overview (04/17/2024): Followed at [facility] sleep program. Last Assessment & Plan: Congratulated on ongoing compliance Assessment & Plan (09/27/2024 6:44 PM EDT): Chronic condition; stable. Continue to encourage use of CPAP. Chronic obstructive pulmonar y disease ([facility] V24, [facility] V28) 12/17/2018 Overview (04/17/2024): PFT 08/05/2021: FEV1 [...] urine 01/29/2024 025 COPD with acute exacerbation ([facility] V24, [facility] V28) 05/04/2021 09/27/2024 Overview (04/17/2024): Last Assessment [...] Encounters Date Type Department Care Team Description 10/17/2024 7:30 AM EDT PACE Home Care / PACE Home Visit Kaitlynn NICOLE [facility] [address] [place] [phone] Shawna Lebron 10/16/2024 7:30 AM EDT P[facility] Home Care / PACE Home Visit Kaitlynn NICOLE [facility] [address] [place] [phone] Cheryle Pryor 10/16/2024 [facility] [address] [phone] Wale Pimentel, TAYA Fall, initial encounter (Primary Dx) 10/15/2024 7:00 AM EDT PACE Home Care / PACE Home Visit Kaitlynn NICOLE [facility] [address] [place] [phone] Cheryle Pryor 10/14/2024 7:30 AM EDT PACE Home Care / PACE Home Visit Kaitlynn NICOLE [facility] [address] [place] [phone] Cheryle Pryor 10/14/2024 [facility] [address] [phone] Carole Aquino LPN 10/13/2024 11:00 AM EDT [facility] [address] [phone] Sandy Keith, LOUISE 10/13/2024 7:30 AM EDT PACE Home Care / PACE Home Visit Kaitlynn NICOLE [facility] [address] [place] [phone] Cheryle Pryor 10/11/2024 7:00 AM EDT PACE Home Care / PACE Home Visit Kaitlynn NICOLE [facility] [address] [place] [phone] Cheryle Pryor 10/10/2024 6:30 AM EDT PACE Home Care / PACE Home Visit Kaitlynn NICOLE [facility] [address] [place] [phone] Shawna Lebron 10/09/2024 7:30 AM EDT PACE Home Care / PACE Home Visit Kaitlynn NICOLE [facility] [address] [place] [phone] Cheryle Pryor 10/08/2024 10:30 AM EDT Office Visit Kaitlynn NICOLE [facility] [address] [place] [phone] Wale Pimentel, TAYA Bipolar 1 disorder ([facility] V24, [facility] V28) (Primary Dx); Dysuria; Blood in stool 10/08/2024 7:30 AM EDT P[facility] Home Care / PACE Home Visit Kaitlynn NICOLE [facility] [address] [place] [phone] Shawna Lebron 10/07/2024 11:00 AM EDT PACE Home Care / PACE Home Visit Kaitlynn NICOLE [facility] [address] [place] [phone] Cheryle Pryor 10/07/2024 7:30 AM EDT PACE Home Care / PACE Home Visit Kaitlynn NICOLE [facility] [address] [place] [phone] Cheryle Pryor 10/01/2024 Telephone K[facility]nn NICOLE [facility] [address] [place] [phone] Wale Pimentel NP 09/30/2024 Plan of Care Documentation [address] [phone] 09/26/2024 12:30 PM EDT PACE Assessment [address] [phone] Naila Kinney RN Adult general medical examination (Primary Dx) 09/26/2024 12:00 PM EDT PACE Assessment [address] [phone] Wale Pimentel NP Mild dementia with mood disturbance, unspecified dementia type ([facility] V24, [facility] V28) (Primary Dx); History of DVT (deep vein thrombosis); Chronic respiratory failure with hypoxia ([facility] V24, [facility] V28); Severe obesity ([facility] V24, [facility] V28); Abnormal mammogram; Migraine without status migrainosus, not intractable, unspecified migraine type; Fibromyalgia; Bilateral hearing loss, unspecified hearing loss type; Conversion disorder with attacks or seizures; Chronic bilateral low back pain without sciatica; Complex regional pain syndrome type 1 of upper extremity, unspecified laterality; Impacted cerumen of right ear; JOSEPH (obstructive sleep apnea); Chronic obstructive pulmonary disease, unspecified COPD type ([facility] V24, [facility] V28); Vocal cord dysfunction; Multiple nodules of lung; Primary hypertension; Paroxysmal atrial fibrillation ([facility] V24, [facility] V28); Chronic diastolic congestive heart failure ([facility] V24, [facility] V28); Edentulous; Constipation, unspecified constipation type; Gastroesophageal [...] anemia; Tobacco use disorder; Bipolar 1 disorder ([facility] V24, [facility] V28); Gait instability; Anxiety; Suicidal ideations; Blood in stool; Post-traumatic stress disorder, acute; Encounter for medication management; Type 2 diabetes mellitus with hypoglycemia without coma, without long-term current use of insulin ([facility] V24, [facility] V28); Moderate mixed hyperlipidemia not requiring statin therapy 09/26/2024 10:30 AM EDT [facility] [address] [place] [phone] Jhoana Grijalva 09/26/2024 PACE Admissions [facility] Clinic [address] [place] [phone] Jennifer Pacheco RN Suicidal ideation (Primary Dx) 09/25/2024 Telephone [facility] Social Work [address] [place] [phone] Beverly Griffin LCSW 09/19/2024 10:00 AM EDT [facility] [address] [place] [phone] Jhoana Grijalva 09/17/2024 10:00 AM EDT [facility] [address] [phone] Type 2 diabetes mellitus with hypoglycemia without coma, without long-term current use of insulin ([facility] V24, [facility] V28); Edentulous 09/12/2024 10:00 AM EDT [facility] [address] [place] [phone] Jhoana Grijalva 09/10/2024 Telephone [facility] Social Work [address] [place] [phone] Beverly Griffin LCSW 09/09/2024 10:00 AM EDT PACE Home Care / PACE Home Visit Kaitlynn [facility] [address] [place] [phone] Shawna Lebron 09/08/2024 11:00 AM EDT [facility] PACE [address] [phone] Sandy Keith RN 09/05/2024 10:00 AM EDT PACE Home Care / PACE Home Visit Kaitlynn NICOLE [facility] [address] [place] [phone] Jhoana Grijalva 09/05/2024 Telephone [facility] Social Work [address] [place] [phone] Mariah Adams 09/03/2024 1:00 PM EDT PACE Assessment [facility] Nutrition Services [address] [place] [phone] Debi Nagy, ROWENA Type 2 diabetes mellitus with hypoglycemia without coma, without long-term current use of insulin ([facility] V24, [facility] V28) (Primary Dx) 09/03/2024 12:00 PM EDT [facility] [address] [phone] Yaritza Levine MD Type 2 diabetes mellitus with hypoglycemia without coma, without long-term current use of insulin ([facility] V24, [facility] V28) (Primary Dx); Oral lesion; Ill-fitting dentures; Chronic migraine with aura without status migrainosus, not intractable; Fibromyalgia; Bipolar 1 disorder ([facility] V24, [facility] V28); COPD with acute exacerbation ([facility] V24, [facility] V28); Suicidal ideations; Depression with anxiety; Encounter for medication management 09/02/2024 10:00 AM EDT P[facility] Home Care / PACE Home Visit Kaitlynn NICOLE [facility] [address] [place] [phone] Shawna Lebron 09/01/2024 1:30 PM EDT [facility] [address] [phone] Yaritza Levine MD Complex regional pain syndrome type 1 of both lower extremities (Primary Dx); Paroxysmal atrial fibrillation ([facility] V24, [facility] V28); Hypertensive heart disease with congestive heart failure, unspecified heart failure type ([facility] V24, [facility] V28); Conversion disorder with attacks or seizures; Congestive heart failure, unspecified HF chronicity, unspecified heart failure type ([facility] V24, [facility] V28); Bipolar 1 disorder ([facility] V24, [facility] V28); Recurrent UTI; Osteoarthritis of both ankles, unspecified osteoarthritis type; Other iron deficiency anemia; Hyperlipidemia, unspecified hyperlipidemia type; Anxiety; Post-traumatic stress disorder, acute; Tobacco use disorder; Type 2 diabetes mellitus with hypoglycemia without coma, without long-term current use of insulin ([facility] V24, [facility] V28); Depression with anxiety; Sinus tachycardia; Cerebrovascular accident (CVA), unspecified mechanism ([facility] V24, [facility] V28); Insomnia, unspecified type; Iron deficiency anemia, unspecified iron deficiency anemia type 09/01/2024 10:45 AM EDT Evaluation [facility] Physical Therapy [address] [place] [phone] Arnav Thomas, PT 08/29/2024 10:00 AM EST P[facility] Home Care / PACE Home Visit [facility] In [facility] [address] [place] [address] [phone] Jhoana Grijalva 08/26/2024 PACE Admissions [facility] [address] [place] [phone] Jennifer Pacheco, RN Suicidal ideation (Primary Dx) 08/26/2024 Telephone [facility] [address] [place] [phone] Jennifer Pacheco, RN 07/23/[address] [facility] [address] [facility] [place] [phone] Elvira Damon MD Hematuria, unspecified [...] [facility] [address] [place] [phone] Jhoana Grijalva 10/19/2024 7:30 AM EDT P[facility] Home Care / PACE Home Visit Kaitlynn NICOLE [facility] [address] [place] [phone] Jhoana Grijalva 10/20/2024 7:30 AM EDT PACE Home Care / PACE Home Visit Kaitlynn NICOLE [facility] [address] [place] [phone] Cheryle Pryor 10/20/2024 9:00 AM EDT P[facility] Attendance/Day Center [facility] [address] [place] [phone] 10/20/2024 9:00 AM EDT Consult [facility] [address] [place] [phone] 10/21/2024 7:30 AM EDT PACE Home Care / P[facility] Home Visit [facility] [address] [place] [phone] Cheryle Pryor 10/21/2024 9:00 AM EDT Consult [facility] [address] [place] [phone] 10/21/2024 10:30 AM EDT PACE Home Care / P[facility] Home Visit [facility] [address] [place] [phone] Cheryle Pryor 10/22/2024 7:30 AM EDT PACE Home Care / PACE Home Visit Kaitlynn NICOLE [facility] [address] [place] [phone] Shawna Lebron 10/22/2024 9:00 AM EDT PACE Attendance/Day [facility] [address] [place] [phone] 10/22/2024 9:00 AM EDT Consult [facility] [address] [place] [phone] 10/23/2024 7:30 AM EDT PACE Home Care / PACE Home Visit Kaitlynn NICOLE [facility] [address] [place] [phone] Cheryle Pryor 10/23/2024 9:00 AM EDT Consult [facility] [address] [place] [phone] 10/24/2024 7:30 AM EDT PACE Home Care / PACE Home Visit Kaitlynn NICOLE [facility] [address] [place] [phone] Shawna Lebron 10/24/2024 9:00 AM EDT Consult [facility] [address] [place] [phone] 10/25/2024 7:30 AM EDT PACE Home Care / P[facility] Home Visit [facility] [address] [place] [phone] Cheryle Pryor 10/26/2024 7:15 AM EDT PACE Home Care / [facility] Home Visit [facility] [address] [place] [phone] Cheryle Pryor 10/27/2024 7:30 AM EDT PACE Home Care / PACE Home Visit Kaitlynn NICOLE [facility] [address] [place] [phone] Cheryle Pryor 10/27/2024 9:00 AM EDT PACE Attendance/Day Center Kait[facility]nn [facility]ICOLE [place] [facility] [address] [place] [phone] 10/28/2024 7:30 AM EDT PACE Home Care / PACE Home Visit Kaitlynn NICOLE [place] [facility] [address] [place] [phone] Cheryle Pryor 10/28/2024 10:30 AM EDT PACE Home Care / PACE Home Visit Kaitlynn NICOLE [place] [facility] [address] [place] [phone] Cheryle Pryor 10/29/2024 7:30 AM EDT PACE Home Care / PACE Home Visit Kaitlynn NICOLE [place] [facility] [address] [place] [phone] Shawna Lebron 10/29/2024 9:00 AM EDT PACE Attendance/Day Center Kait[facility]nn [facility]ICOLE [place] [facility] [address] [place] [phone] 10/30/2024 7:30 AM EDT PACE Home Care / PACE Home Visit Kaitlynn NICOLE [facility] [address] [place] [phone] Cheryle Pryor 10/31/2024 7:30 AM EDT PACE Home Care / P[facility] Home Visit [facility] [address] [place] [phone] Shawna Lebron 10/31/2024 10:30 AM EDT PACE Home Care / P[facility] Home Visit [facility] [address] [place] [phone] Jhoana Grijalva 11/01/2024 7:30 AM EDT P[facility] Home Care / [facility] Visit [facility] [address] [place] [phone] Jhoana Grijalva 11/02/2024 7:30 AM EDT PACE Home Care / PACE Home Visit Kaitlynn NICOLE [place] [facility] [address] [place] [phone] Jhoana Grijalva 11/03/2024 7:30 AM EDT PACE Home Care / PACE Home Visit Kaitlynn NICOLE [place] [facility] [address] [place] [phone] Cheryle Pryor 11/03/2024 9:00 AM EDT PACE Attendance/Day Center [facility]nn [facility] [place] [facility] [address] [place] [phone] 11/04/2024 7:30 AM EDT PACE Home Care / PACE Home Visit Kaitlynn NICOLE [facility] [address] [place] [phone] Cheryle Pryor 11/04/2024 10:30 AM EDT [facility] / [facility] [address] [place] [phone] Cheryle Pryor 11/05/2024 7:30 AM EDT PACE Home Care / PACE [facility] Visit [facility] [address] [place] [phone] Shawna Lebron 11/05/2024 9:00 AM EDT PACE Attendance[facility] [place] [facility] [address] [place] [phone] 11/06/2024 7:30 AM EDT PACE Home Care / PACE Home Visit [facility] [address] [place] [phone] Cheryle Pryor 11/06/2024 10:00 AM EDT Clinical Support [facility] MA [address] [place] [phone] 11/07/2024 7:30 AM EDT PACE Home [facility] / [facility] [address] [place] [address] Shawna Lebron 11/07/2024 10:30 AM EDT PACE Home Care / [facility] [address] [place] [phone] Jhoana Grijalva 11/08/2024 7:30 AM EDT PACE Home Care / [facility] [address] [place] [phone] Cheryle Pryor 11/09/2024 7:30 AM EDT PACE Home Care / [facility] [address] [place] [phone] Cheryle Pryor 11/10/2024 7:30 AM EDT PACE Home Care / [facility] [address] [place] [phone] Cheryle Pryor 11/10/2024 9:00 AM EDT [facility] [place] [facility] [address] [place] [address] 11/10/2024 9:45 AM EDT Office Visit [facility] [address] [place] [phone] Gemini Simmons MD [address] [facility] [address] [place] [phone] 11/11/2024 7:30 AM EDT PACE Home Care / [facility] Visit [facility] [address] [place] [address] Cheryle Pryor 11/11/2024 10:30 AM EDT PACE Home Care / [facility] [address] [place] [address] Cheryle Pryor 11/12/2024 7:30 AM EDT PACE Home Care / PACE [facility] Visit [facility] [address] [place] [address] Shawna Lebron 11/12/2024 9:00 AM EDT PACE Attendance[facility] [place] [facility] [address] [place] [address] 11/13/2024 7:30 AM EDT PACE Home Care / P[facility] Visit [facility] [address] [place] [phone] Cheryle Pryor 11/14/2024 7:30 AM EDT PACE Home Care / PACE Home Visit [facility] [address] [place] [phone] Shawna Lebron 11/14/2024 10:30 AM EDT PACE Home Care / PACE Home Visit [facility] [address] [place] [phone] Jhoana Grijalva 11/15/2024 7:30 AM EDT PACE Home Care / P[facility] Visit [facility] [address] [place] [phone] Jhoana Grijalva 11/16/2024 7:30 AM EDT PACE Home Care / P[facility] Visit [facility] [address] [place] [phone] Jhoana Grijalva 11/17/2024 7:30 AM EDT PACE Home Care / PACE Home Visit [facility] [address] [place] [phone] Cheryle Pryor 11/17/2024 9:00 AM EDT PACE Attendance[facility] [place] [facility] [address] [place] [address] 11/18/2024 7:30 AM EDT PACE Home Care / PACE Home Visit [facility] [address] [place] [phone] Cheryle Pryor 11/18/2024 10:30 AM EDT PACE Home Care / PACE Home Visit [facility] [address] [place] [phone] Cheryle Pryor 11/19/2024 7:30 AM EDT PACE Home Care / PACE Home Visit [facility] [address] [place] [phone] Shawna Lebron 11/19/2024 9:00 AM EDT [facility] Attendance[facility] [place] [facility] [address] [place] [phone] 11/20/2024 7:30 AM EDT PACE Home Care / PACE Home Visit [facility] [address] [place] [phone] Cheryle Pryor 11/21/2024 7:30 AM EDT PACE Home Care / PACE Home Visit [facility] [address] [place] [phone] Shawna Lebron 11/21/2024 10:30 AM EDT PACE Home Care / PACE Home Visit [facility] [address] [place] [phone] Jhoana Grijalva 11/22/2024 7:30 AM EDT PACE Home Care / PACE [facility] Visit [facility] [address] [place] [phone] Cheryle Pryor 11/23/2024 7:30 AM EDT PACE Home Care / PACE Home Visit [facility] [address] [place] [phone] Cheryle Pryor 11/24/2024 7:30 AM EDT PACE Home Care / PACE Home Visit [facility] [address] [place] [phone] Cheryle Pryor 11/24/2024 9:00 AM EDT P[facility] Attend[facility] [place] [facility] [address] [place] [phone] 11/25/2024 7:30 AM EDT PACE Home Care / PACE Home Visit [facility] [address] [place] [phone] Cheryle Pryor 11/25/2024 10:30 AM EDT PACE Home Care / PACE Home Visit [facility] [address] [place] [phone] Cheryle Pryor 11/26/2024 7:30 AM EDT PACE Home Care / PACE Home Visit [facility] [address] [place] [phone] Shawna Lebron 11/26/2024 9:00 AM EDT PACE Attendance[facility] [place] [facility] [address] [place] [phone] 11/27/2024 7:30 AM EDT PACE Home Care / PACE Home Visit [facility] [address] [place] [phone] Cheryle Pryor 11/28/2024 7:30 AM EDT PACE Home Care / [facility] [address] [place] [phone] Shawna Lebron 11/28/2024 10:30 AM EDT PACE Home Care / [facility] [address] [place] [phone] Jhoana Grijalva 11/29/2024 7:30 AM EDT PACE Home Care / [facility] Visit [facility] [address] [place] [phone] Jhoana Grijalva 11/30/2024 7:30 AM EDT PACE Home Care / [facility] Visit [facility] [address] [place] [phone] Jhoana Grijalva 12/01/2024 7:30 AM EDT PACE Home Care / [facility] [address] [place] [phone] Cheryle Pryor 12/01/2024 9:00 AM EDT [facility] [place] [facility] [address] [place] [phone] 12/02/2024 7:30 AM EDT PACE Home Care / [facility] [address] [place] [phone] Cheryle Pryor 12/03/2024 7:30 AM EDT PACE Home Care / [facility] [address] [place] [phone] Shawna Lebron 12/03/2024 9:00 AM EDT [facility] Att[facility] [place] [facility] [address] [place] [phone] 12/04/2024 7:30 AM EDT PACE Home Care / [facility] [address] [place] [phone] Cheryle Pryor 12/05/2024 7:30 AM EDT PACE Home Care / [facility] [address] [place] [phone] Shawna Lebron 12/05/2024 10:30 AM EDT PACE Home Care / [facility] [address] [place] [address] Jhoana Grijalva 12/06/2024 7:30 AM EDT PACE Home Care / [facility] [address] [place] [address] Cheryle Pryor 12/07/2024 7:30 AM EDT PACE Home Care / [facility] [address] [place] [address] Cheryle Pryor 12/08/2024 9:00 AM EDT [facility] Attend[facility] [place] [facility] [address] [place] [phone] 12/10/2024 9:00 AM EDT [facility] Attend[facility] [place] [facility] [address] [place] [phone] 12/15/2024 9:00 AM EDT [facility] Att[facility] [place] [facility] [address] [place] [phone] 12/17/2024 9:00 AM EDT [facility] Attend[facility] [place] [facility] [address] [place] [phone] 12/22/2024 9:00 AM EDT [facility] Att[facility] [place] [facility] [address] [place] [phone] 12/24/2024 9:00 AM EDT [facility] Attend[facility] [place] [facility] [address] [place] [phone] 12/29/2024 9:00 AM EDT [facility] Attend[facility] [place] [facility] [address] [place] [phone] 12/31/2024 9:00 AM EDT [facility] Att[facility] [place] [facility] [address] [place] [address] 01/05/2025 9:00 AM EDT [facility] [place] [facility] [address] [place] [address] 01/07/2025 9:00 AM EDT [facility] [place] [facility] [address] [place] [address] 01/12/2025 9:00 AM EDT [facility] [place] [facility] [address] [place] [address] 01/14/2025 9:00 AM EDT PACE Attendance/[facility] [place] [facility] [address] [place] [address] 01/19/2025 9:00 AM EDT [facility] [place] [facility] [address] [place] [phone] 01/21/2025 9:00 AM EDT [facility] [place] [facility] [address] [place] [phone] 01/26/2025 9:00 AM EDT [facility] [place] [facility] [address] [place] [phone] 01/28/2025 9:00 AM EDT [facility] [place] [facility] [address] [place] [phone] 02/02/2025 9:00 AM EDT [facility] [place] [facility] [address] [place] [phone] 02/04/2025 9:00 AM EDT [facility] [place] [facility] [address] [place] [phone] 02/09/2025 9:00 AM EDT [facility] [place] [facility] [address] [place] [address] 02/11/2025 9:00 AM EDT [facility] [place] [facility] [address] [place] [address] 02/16/2025 9:00 AM EDT PACE Attendance[facility] [place] [facility] [address] [place] [address] 02/18/2025 9:00 AM EDT [facility] [place] [facility] [address] [place] [address] 02/23/2025 9:00 AM EDT P[facility] Attendance[facility] [place] [facility] [address] [place] [address] 02/25/2025 9:00 AM EDT PACE Attendance[facility] [place] [facility] [address] [place] [address] 03/02/2025 9:00 AM EDT [facility] [place] [facility] [address] [place] [phone] 03/04/2025 9:00 AM EDT P[facility] Attendance[facility] [place] [facility] [address] [place] [address] 03/09/2025 9:00 AM EDT [facility] [place] [facility] [address] [place] [address] 03/11/2025 9:00 AM EDT [facility] [place] [facility] [address] [place] [address] 03/16/2025 9:00 AM EDT [facility] [place] [facility] [address] [place] [address] 03/18/2025 9:00 AM EDT [facility] Att[facility] [place] [facility] [address] [place] [address] 03/23/2025 9:00 AM EDT PACE Attendance[facility] [place] [facility] [address] [place] [address] 03/25/2025 9:00 AM EDT P[facility] Attendance[facility] [place] [facility] [address] [place] [address] 03/30/2025 9:00 AM EDT P[facility] Attendance[facility] [place] [facility] [address] [place] [address] 04/01/2025 9:00 AM EDT P[facility] Attendance[facility] [place] [facility] [address] [place] [phone] 04/06/2025 9:00 AM EDT PACE Attendance[facility] [place] [facility] [address] [place] [phone] 04/08/2025 9:00 AM EDT PACE Attendance[facility] [place] [facility] [address] [place] [phone] 04/13/2025 9:00 AM EDT PACE Attendance[facility] [place] [facility] [address] [place] [phone] 04/15/2025 9:00 AM EDT PACE Attendance/[facility] [place] [facility] [address] [place] [address] 04/20/2025 9:00 AM EDT [facility] [place] [facility] [address] [place] [phone] 04/22/2025 9:00 AM EDT [facility] Att[facility] [place] [facility] [address] [place] [phone] 04/27/2025 9:00 AM EST [facility] [place] [facility] [address] [place] [address] 04/29/2025 9:00 AM EST [facility] Attend[facility] [place] [facility] [address] [place] [address] 05/04/2025 9:00 AM EST [facility]end[facility] [place] [facility] [address] [place] [phone] 05/06/2025 9:00 AM EST P[facility] Attend[facility] [place] [facility] [address] [place] [phone] 05/11/2025 9:00 AM EST P[facility]end[facility] [place] [facility] [address] [place] [phone] 05/13/2025 9:00 AM EST P[facility] Attend[facility] [place] [facility] [address] [place] [phone] 05/18/2025 9:00 AM EST [facility] [place] [facility] [address] [place] [phone] 05/20/2025 9:00 AM EST P[facility] Attend[facility] [place] [facility] [address] [place] [phone] 05/25/2025 9:00 AM EST P[facility] Attend[facility] [place] [facility] [address] [place] [address] 05/27/2025 9:00 AM EST P[facility] Attend[facility] [place] [facility] [address] [place] [phone] 06/01/2025 9:00 AM EST P[facility] Attend[facility] [place] [facility] [address] [place] [phone] 06/03/2025 9:00 AM EST P[facility] Attend[facility] [place] [facility] [address] [place] [phone] 06/08/2025 9:00 AM EST P[facility] [place] [facility] [address] [place] [address] 06/10/2025 9:00 AM EST [facility]end[facility] [place] [facility] [address] [place] [address] 06/15/2025 9:00 AM EST [facility] [place] [facility] [address] [place] [address] 06/17/2025 9:00 AM EST [facility] [place] [facility] [address] [place] [phone] 06/22/2025 9:00 AM EST [facility] [place] [facility] [address] [place] [phone] 06/24/2025 9:00 AM EST [facility] [place] [facility] [address] [place] [address] 06/29/2025 9:00 AM EST P[facility] [place] [facility] [address] [place] [address] 07/01/2025 9:00 AM EST [facility] [place] [facility] [address] [place] [phone] 07/06/2025 9:00 AM EST [facility] [place] [facility] [address] [place] [phone] 2025 9:00 AM EST [facility] [place] [facility] [address] [place] [phone] 07/13/2025 9:00 AM EST [facility] [place] [facility] [address] [place] [phone] 07/15/2025 9:00 AM EST P[facility]end[facility] [address] [place] [address] 07/20/2025 9:00 AM EST PACE Attendance[facility] [place] [facility] [address] [place] [phone] 07/22/2025 9:00 AM EST PACE Attend[facility] [place] [facility] [address] [place] [phone] 07/27/2025 9:00 AM EST PACE Attendance[facility] [place] [facility] [address] [place] [phone] 07/29/2025 9:00 AM EST PACE Attendance[facility] [place] [facility] [address] [place] [phone] 08/03/2025 9:00 AM EST PACE Attendance/[facility] [place] [facility] [address] [place] [phone] Health Maintenance Due Date Last Done Comments [...] unspecified ANNUAL BMP BLOOD TEST Routine 06/04/2024 [facility] SCREENING DIGITAL Routine 03/26/2024 3:43 PM EDT Encounter for screening mammogram for malignant neoplasm of breast HEMOGLOBIN A1C Routine 03/17/2024 LIPID PANEL Routine 09/26/2023 from Last 3 Months or Most Recently Relevant to Health Maintenance Results * (ABNORMAL) Urinalysis with reflex microscopic and culture (10/08/2024 12:09 PM EDT) Specific [place] Urine 1.028 1.003 - 1.030 LAB URINALYSIS - AUTOMATED METHOD 10/08/2024 7:[address] [facility] pH, Urine 6.5 5.0 - 8.0 pH LAB URINALYSIS - AUTOMATED METHOD 10/08/2024 7:[address] [facility] Leukocytes, Urine Moderate(A) Negative LAB URINALYSIS - AUTOMATED METHOD 10/08/2024 7:[address] [facility] Nitrite, Urine Positive(A) Negative LAB URINALYSIS - AUTOMATED METHOD 10/08/2024 7:[address] [facility] Protein, Urine Trace <=Trace mg/dL LAB URINALYSIS - AUTOMATED METHOD 10/08/2024 7:[address] [facility] Glucose, Urine Negative Negative mg/dL LAB URINALYSIS - AUTOMATED METHOD 10/08/2024 7:[address] [facility] Ketones, Urine Trace(A) Negative mg/dL LAB URINALYSIS - AUTOMATED METHOD 10/08/2024 7:[address] [facility] Urobilinogen , Urine 1.0 0.2 - 1.0 mg/dL LAB URINALYSIS - AUTOMATED METHOD 10/08/2024 7:[address] [facility] Bilirubin, Urine Negative Negative LAB URINALYSIS - AUTOMATED METHOD 10/08/2024 7:41 PM EDT [facility] Blood, Urine Moderate(A) Negative LAB URINALYSIS - AUTOMATED METHOD 10/08/2024 7:41 PM T [facility] RBC, Urine 7.6(H) 0 - 4 /HPF LAB URINALYSIS - AUTOMATED METHOD 10/08/2024 7:41 PM T [facility] WBC, Urine 23.0(H) 0 - 4 /HPF LAB URINALYSIS - AUTOMATED METHOD 10/08/2024 7:[address] [facility] Squamous Epithelial, Urine 96(H) 0 - 60 /LPF LAB URINALYSIS - AUTOMATED METHOD 10/08/2024 7:[address] [facility] Bacteria, Urine Moderate(A) Negative /HPF LAB URINALYSIS - AUTOMATED METHOD 10/08/2024 7:[address] [facility] Hyaline Casts, Urine 2.0 0 - 3 /LPF LAB URINALYSIS - AUTOMATED METHOD [facility] Other Casts, Urine Rare Fine Granular casts. /LPF 10/08/2024 7:[address] [facility] Urine Urine specimen obtained by clean catch procedure / Unknown Non-blood Collection / Unknown 10/08/2024 12:09 PM EDT 10/08/2024 12:09 PM EDT us W[facility] URINE ORDERABLES Final Re sult [facility] [address] [place] [address], * (ABNORMAL) Culture urine (10/08/2024 12:09 PM EDT) Culture, Urine >100,000 CFU/mL Pseudomonas aeruginosa(A) ANNETTA 10/11/2024 7:24 AM EDT [facility] Urine Urine specimen obtained by [...] Pseudomonas aeruginosa Piperacillin/Tazobactam DISK DI FFUSION Susceptible us [facility] MICROBIOLOGY - GENERAL OR DERABLES Final Result [facility] [address] [place] [address], * Tissue Exam (07/22/2024) Final Diagnosis Endometrium, biopsy: - Scant superficial strips of endometrial epithelium with tubal change. (See note.) Note: In the appropriate clinical setting, the morphologic findings in this scant biopsy would support a diagnosis of endometrial atrophy. However, the scant material received may not be fully rental sales representative of the endometrium. Clinical correlation is recommended. 07/24/2024 11:07 AM [facility] Clinical Information Hematuria (? PMB) 07/24/2024 11:07 AM [facility] Gross Description A. Endometrium, biopsy: Labeled with the patient's name and information. Received in formalin is an approximately 0.2 x 0.1 x 0.1 cm aggregate of soft to mucoid, white tissue fragments, which is wrapped in paper and submitted in toto in one cassette, multiple pieces, x2. Please note: Small tissue fragments may not survive processing. [email or web address] 07/24/2024 11:07 AM [facility] Disclaimer Unless otherwise specified, all tissue is 10% NB formalin fixed and paraffin embedded. 07/24/2024 11:07 AM EST [facility] Tissue Endometrial structure / Unknown 07/22/2024 07/23/2024 7:03 AM EST Elvira Damon MD LAB PATHOLOGY ORDERABLES Final Result [facility] [address] [place] [address], * Annual BMP Blood Test (06/04/2024) Annual BMP Blood Test Abstracted Historical Provider HEALTH MAINTENANCE Final Result * [facility] SCREENING DIGITAL (03/26/2024 3:43 PM EDT) Anatomical Region Laterality Modality Mammography 03/12/2024 11:1 8 AM EDT Narrative 03/26/2024 3:[address] [facility] Diagnostic Imaging Department [address] [place] [address] Patient: ??LUCILA GRIFFITHS ?/Age/Sex: 1960 - 63 - F Unit#: ??[id number] ? Location/Status: ??SPDIMAM/REG CLI ? Mnemonic/Ordering Site: ??DIGSC/SPMAM Ordering Physician: ??WALE PIMENTEL [facility] Screening Digital - 03/12/24 - 1133 Report Status:Signed EXAM: [facility] Screening Digital EXAM DATE AND TIME: 03/12/2024 11:34 AM HISTORY: ??Screening. Previous left breast biopsy, pathology benign. Mother had breast carcinoma at age 60. COMPARISON: ??No outside comparison imaging has been located on this patient. TECHNIQUE: Bilateral digital breast tomosynthesis was performed in the CC and MLO projections. Computer aided detection with Revo Round 3D 3.1 was employed. TISSUE DENSITY: b. [...] Mammogram performed at [facility] [place] [address] Dictating Physician: ??BERTA MOCK MD Electronically Signed by: ??BERTA MOCK MD Dic Date/Time: ??03/26/24 1540 Sign date/Time: ??03/26/24 1543 Procedure Note Berta Mock MD - 04/22/2024 [facility] Diagnostic Imaging Department [address] [place] [address] Patient: LUCILA GRIFFITHS /Age/Sex: 1960 - 63 - F Unit#: [id number] Location/Status: SPDIMAM/REG CLI Mnemonic/Ordering Site: [facility] Ordering Physician: WALE PIMENTEL [facility] Screening Digital - 03/12/24 - 1133 Report Status:Signed EXAM: [facility] Screening Digital EXAM DATE AND TIME: 03/12/2024 11:34 AM HISTORY: Screening. Previous left breast biopsy, pathology benign. Motherhad breast carcinoma at age 60. COMPARISON: No outside comparison imaging has been located on thispatient. TECHNIQUE: Bilateral digital breast tomosynthesis was performed in the CCand MLO projections. Computer aided detection with Revo Round 3D 3.1was employed. TISSUE DENSITY: b. There [...] Mammogram performed at [facility] [place] [address] Dictating Physician: BERTA MOCK MD Electronically Signed by: BERTA MOCK MD Dic Date/Time: 03/26/24 1540 Sign date/Time: 03/26/24 1543 Wale Pimentel [facility] BI PROCEDURES Final Resul t * (ABNORMAL) Hemoglobin A1c (03/17/2024) Hemoglobin A1C 6.7(A) <=5.7 % Blood Venous blood specimen / Unknown Result [facility] Historical Provider LAB BLOOD ORDERABLES Claire l Result * (ABNORMAL) Lipid panel (09/26/2023) LDL/HDL Ratio 2 <=5 Triglycerides 73 <=150 mg/dL Cholesterol 89 <=200 mg/dL HDL 45(A) >=50 mg/dL LDL Cholesterol 29 <=100 mg/dL Blood Venous blood specimen / Unknown Result [facility] Historical Provider LAB BLOOD ORDERABLES Claire l Result from Last 3 Months or Most Recently Relevant to Health Maintenance Insurance [employer] * Guarantor: MACHO Account Type Relation to Patient Date of Phone Billing Address [address] [address] [place] [address] [facility] Advance Directives Documents on File Type Date Recorded Patient Uat Tester Expl anation Advance 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 Care Teams Public Health Nutritionist Relationship Specialty Start Date End Date Wale Pimentel NP [address] [place] [id number] PCP - General Family Medicine 05/02/24
--- OUTSIDE RECORDS SUMMARY | 2024-10-17 12:46 | XMS_ITS | Encounter Summary ---
Author Organization [facility] Address [address] [place] [address] Care Team Providers Care Tea Taster Name Role Phone Eleazar Glesaon MD Primary Care Provider [phone] Encounter Details Date Type Department Care Team (Late st Contact Info) Description 04/16/2024 11:39 AM EDT Hospital Encounter TH HISTORIC ENCOUNTERS EASTERN CONVERSION ONLY Wale Pimentel, TAYA [address] [facility] [address] [place] [address] Social History Tobacco Use Types Packs/Day Years [...] [place] [facility] [address] [place] [phone] Jhoana Grijalva 10/19/2024 7:30 AM EDT PACE Home Care / [facility] [place] [facility] [address] [place] [phone] Jhoana Grijalva 10/20/2024 7:30 AM EDT PACE Home Care / [facility] Home Visit [facility] [place] [facility] [address] [place] [phone] Cheryle Pryor 10/20/2024 9:00 AM EDT P[facility] Attend[facility] [facility] [place] [facility] [address] [place] [phone] 10/20/2024 9:00 AM EDT Consult [facility] [place] [address] [place] [phone] 10/21/2024 7:30 AM EDT PACE Home Care / [facility] Home Visit [facility] [place] [facility] [address] [place] [phone] Cheryle Pryor 10/21/2024 9:00 AM EDT Consult [facility] [place] [address] [place] [phone] 10/21/2024 10:30 AM EDT PACE Home Care / [facility] Home Visit [facility] [place] [facility] [address] [place] [phone] Cheryle Pryor 10/22/2024 7:30 AM EDT PACE Home Care / [facility] Home Visit [facility] [place] [facility] [address] [place] [phone] Shawna Lebron 10/22/2024 9:00 AM EDT P[facility] Attend[facility] [facility] [place] [facility] [address] [place] [phone] 10/22/2024 9:00 AM EDT Consult [facility] [place] [address] [place] [phone] 10/23/2024 7:30 AM EDT PACE Home Care / [facility] [address] [place] [phone] Cheryle Pryor 10/23/2024 9:00 AM EDT Consult [facility] [place] [address] [place] [address] 10/24/2024 7:30 AM EDT PACE Home Care / [facility] [place] [facility] [address] [place] [phone] Shawna Lebron 10/24/2024 9:00 AM EDT Consult [facility] [place] [address] [place] [phone] 10/25/2024 7:30 AM EDT PACE Home Care / P[facility] [place] [facility] [address] [place] [phone] Cheryle Pryor 10/26/2024 7:15 AM EDT PACE Home Care / P[facility] [place] [facility] [address] [place] [phone] Cheryle Pryor 10/27/2024 7:30 AM EDT PACE Home Care / [facility] [place] [facility] [address] [place] [phone] Cheryle Pryor 10/27/2024 9:00 AM EDT P[facility] Att[facility] [place] [facility] [address] [place] [phone] 10/28/2024 7:30 AM EDT PACE Home Care / [facility] [place] [facility] [address] [place] [phone] Cheryle Pryor 10/28/2024 10:30 AM EDT PACE Home Care / [facility] [place] [facility] [address] [place] [address] Cheryle Pryor 10/29/2024 7:30 AM EDT PACE Home Care / P[facility] Home Visit [facility] [place] [facility] [address] [place] [address] Shawna Lebron 10/29/2024 9:00 AM EDT P[facility] Attend[facility] [place] [facility] [address] [place] [address] 10/30/2024 7:30 AM EDT PACE Home Care / P[facility] Home Visit [facility] [place] [facility] [address] [place] [address] Cheryle Pryor 10/31/2024 7:30 AM EDT PACE Home Care / P[facility] Home [facility] [place] [facility] [address] [place] [address] Shawna Lebron 10/31/2024 10:30 AM EDT PACE Home Care / [facility] [place] [facility] [address] [place] [phone] Jhoana Grijalva 11/01/2024 7:30 AM EDT PACE Home Care / P[facility] Visit [facility] [place] [facility] [address] [place] [phone] Jhoana Grijalva 11/02/2024 7:30 AM EDT PACE Home Care / [facility] [place] [facility] [address] [place] [phone] Jhoana Grijalva 11/03/2024 7:30 AM EDT PACE Home Care / [facility] [place] [facility] [address] [place] [address] Cheryle Pryor 11/03/2024 9:00 AM EDT [facility] Att[facility] [facility] [place] [facility] [address] [place] [address] 11/04/2024 7:30 AM EDT PACE Home Care / PACE Home Visit [facility] [place] [facility] [address] [place] [address] Cheryle Pryor 11/04/2024 10:30 AM EDT PACE Home Care / PACE Home Visit [facility] [place] [facility] [address] [place] [phone] Cheryle Pryor 11/05/2024 7:30 AM EDT PACE Home Care / [facility] [place] [facility] [address] [place] [phone] Shawna Lebron 11/05/2024 9:00 AM EDT PACE Attendance[facility] [place] [facility] [address] [place] [phone] 11/06/2024 7:30 AM EDT PACE Home Care / P[facility] Home Visit [facility] [place] [facility] [address] [place] [phone] Cheryle Pryor 11/06/2024 10:00 AM EDT Clinical Support [facility] [place] [address] [place] [phone] 11/07/2024 7:30 AM EDT PACE Home Care / PACE Home Visit [facility] [place] [facility] [address] [place] [phone] Shawna Lebron 11/07/2024 10:30 AM EDT PACE Home Care / P[facility] Home Visit [facility] [place] [facility] [address] [place] [phone] Jhoana Grijalva 11/08/2024 7:30 AM EDT PACE Home Care / P[facility] Home Visit [facility] [place] [facility] [address] [place] [phone] Cheryle Pryor 11/09/2024 7:30 AM EDT PACE Home Care / [facility] Visit [facility] [place] [facility] [address] [place] [phone] Cheryle Pryor 11/10/2024 7:30 AM EDT PACE Home Care / [facility] Visit [facility] [place] [facility] [address] [place] [phone] Cheryle Pryor 11/10/2024 9:00 AM EDT P[facility] Att[facility] [place] [facility] [address] [place] [phone] 11/10/2024 9:45 AM EDT Office Visit [facility] [address] [place] [phone] Gemini Simmons MD [address] [address] 11/11/2024 7:30 AM EDT PACE Home Care / [facility] Home Visit [facility] [place] [facility] [address] [place] [phone] Cheryle Pryor 11/11/2024 10:30 AM EDT PACE Home Care / [facility] Home Visit [facility] [place] [facility] [address] [place] [phone] Cheryle Pryor 11/12/2024 7:30 AM EDT PACE Home Care / PACE Home Visit [facility] [place] [facility] [address] [place] [phone] Shawna Lebron 11/12/2024 9:00 AM EDT P[facility] Attendance[facility] [facility] [place] [facility] [address] [place] [address] 11/13/2024 7:30 AM EDT PACE Home Care / [facility] Visit [facility] [place] [facility] [address] [place] [phone] Cheryle Pryor 11/14/2024 7:30 AM EDT PACE Home Care / [facility] Home Visit [facility] [place] [facility] [address] [place] [phone] Sahwna Lebron 11/14/2024 10:30 AM EDT PACE Home Care / [facility] Home Visit [facility] [place] [facility] [address] [place] [phone] Jhoana Grijalva 11/15/2024 7:30 AM EDT PACE Home Care / [facility] Home Visit [facility] [place] [facility] [address] [place] [phone] Jhoana Grijalva 11/16/2024 7:30 AM EDT PACE Home Care / [facility] Home Visit [facility] [place] [facility] [address] [place] [phone] Jhoana Grijalva 11/17/2024 7:30 AM EDT PACE Home Care / [facility] Home Visit [facility] [place] [facility] [address] [place] [phone] Cheryle Pryor 11/17/2024 9:00 AM EDT PACE Attendance[facility] [facility] [place] [facility] [address] [place] [phone] 11/18/2024 7:30 AM EDT PACE Home Care / [facility] Home Visit [facility] [place] [facility] [address] [place] [phone] Cheryle Pryor 11/18/2024 10:30 AM EDT PACE Home Care / PACE Home Visit [facility] [place] [facility] [address] [place] [phone] Cheryle Pryor 11/19/2024 7:30 AM EDT PACE Home Care / [facility] Home Visit [facility] [place] [facility] [address] [place] [phone] Shawna Lebron 11/19/2024 9:00 AM EDT [facility] Att[facility] [facility] [place] [facility] [address] [place] [phone] 11/20/2024 7:30 AM EDT PACE Home Care / [facility] Home Visit [facility] [place] [facility] [address] [place] [phone] Cheryle Pryor 11/21/2024 7:30 AM EDT PACE Home Care / P[facility] Home Visit [facility] [address] [place] [phone] Shawna Lebron 11/21/2024 10:30 AM EDT PACE Home Care / [facility] Home Visit [facility] [place] [facility] [address] [place] [phone] Jhoana Grijalva 11/22/2024 7:30 AM EDT PACE Home Care / [facility] Home Visit [facility] [place] [facility] [address] [place] [phone] Cheryle Pryor 11/23/2024 7:30 AM EDT PACE Home Care / [facility] Home Visit [facility] [place] [facility] [address] [place] [phone] Cheryle Pryor 11/24/2024 7:30 AM EDT PACE Home Care / [facility] Visit [facility] [place] [facility] [address] [place] [phone] Cheryle Pryor 11/24/2024 9:00 AM EDT P[place] Attend[place] [facility] [place] [facility] [address] [place] [phone] 11/25/2024 7:30 AM EDT PACE Home Care / P[facility] Home Visit [facility] [place] [facility] [address] [place] [phone] Cheryle Pryor 11/25/2024 10:30 AM EDT PACE Home Care / PACE Home Visit [facility] [place] [facility] [address] [place] [phone] Cheryle Pyror 11/26/2024 7:30 AM EDT PACE Home Care / PACE Home Visit [facility] [place] [facility] [address] [place] [phone] Shawna Lebron 11/26/2024 9:00 AM EDT PACE Attendance[facility] [place] [facility] [address] [place] [phone] 11/27/2024 7:30 AM EDT PACE Home Care / PACE Home Visit [facility] [place] [facility] [address] [place] [phone] Cheryle Pryor 11/28/2024 7:30 AM EDT PACE Home Care / PACE [facility] Visit [facility] [place] [facility] [address] [place] [phone] Shawna Lebron 11/28/2024 10:30 AM EDT PACE Home Care / P[facility] Home Visit [facility] [place] [facility] [address] [place] [phone] Jhoana Grijalva 11/29/2024 7:30 AM EDT PACE Home Care / [facility] [address] [place] [phone] Jhoana Grijalva 11/30/2024 7:30 AM EDT PACE Home Care / PACE Home Visit [facility] [place] [facility] [address] [place] [phone] Jhoana Grijalva 12/01/2024 7:30 AM EDT PACE Home Care / PACE Home Visit [facility] [place] [facility] [address] [place] [phone] Cheryle Pryor 12/01/2024 9:00 AM EDT P[facility] Attend[facility] [place] [facility] [address] [place] [phone] 12/02/2024 7:30 AM EDT PACE Home Care / [facility] Home Visit [facility] [place] [facility] [address] [place] [phone] Cheryle Pryor 12/03/2024 7:30 AM EDT PACE Home Care / [facility] Visit [facility] [place] [facility] [address] [place] [phone] Shawna Lebron 12/03/2024 9:00 AM EDT P[facility] Attend[facility] [place] [facility] [address] [place] [phone] 12/04/2024 7:30 AM EDT PACE Home Care / P[facility] Home Visit [facility] [place] [facility] [address] [place] [phone] Cheryle Pryor 12/05/2024 7:30 AM EDT PACE Home Care / [facility] Home Visit [facility] [place] [facility] [address] [place] [phone] Shawna Lebron 12/05/2024 10:30 AM EDT PACE Home Care / [facility] Visit [facility] [place] [facility] [address] [place] [phone] Jhoana Grijalva 12/06/2024 7:30 AM EDT PACE Home Care / [facility] Visit [facility] [place] [facility] [address] [place] [phone] Cheryle Pryor 12/07/2024 7:30 AM EDT PACE Home Care / [facility] [place] [facility] [address] [place] [phone] Cheryle Pryor 12/08/2024 9:00 AM EDT [facility] Attend[facility] [place] [facility] [address] [place] [address] 12/10/2024 9:00 AM EDT [facility] Attend[facility] [place] [facility] [address] [place] [phone] 12/15/2024 9:00 AM EDT [facility] Att[facility] [place] [facility] [address] [place] [address] 12/17/2024 9:00 AM EDT P[facility] Attend[facility] [place] [facility] [address] [place] [phone] 12/22/2024 9:00 AM EDT [facility] Attend[facility] [place] [facility] [address] [place] [phone] 12/24/2024 9:00 AM EDT P[facility] Attend[facility] [place] [facility] [address] [place] [phone] 12/29/2024 9:00 AM EDT [facility] Att[facility] [place] [facility] [address] [place] [phone] 12/31/2024 9:00 AM EDT P[facility] Att[facility] [place] [facility] [address] [place] [phone] 01/05/2025 9:00 AM EDT P[facility] Att[facility] [place] [facility] [address] [place] [phone] 01/07/2025 9:00 AM EDT P[facility] Attend[facility] [place] [facility] [address] [place] [phone] 01/12/2025 9:00 AM EDT P[facility] Attend[facility] [place] [facility] [address] [place] [phone] 01/14/2025 9:00 AM EDT P[facility] Attend[facility] [place] [facility] [address] [place] [address] 01/19/2025 9:00 AM EDT P[facility] Attend[facility] [place] [facility] [address] [place] [address] 01/21/2025 9:00 AM EDT P[facility] Att[facility] [place] [facility] [address] [place] [address] 01/26/2025 9:00 AM EDT PACE Attendance[facility] [place] [facility] [address] [place] [phone] 01/28/2025 9:00 AM EDT PACE Attendance[facility] [place] [facility] [address] [place] [phone] 02/02/2025 9:00 AM EDT P[facility] Attendance[facility] [place] [facility] [address] [place] [phone] 02/04/2025 9:00 AM EDT P[facility] Att[facility] [place] [facility] [address] [place] [phone] 02/09/2025 9:00 AM EDT P[facility] Att[facility] [place] [facility] [address] [place] [phone] 02/11/2025 9:00 AM EDT P[facility] Attend[facility] [place] [facility] [address] [place] [address] 02/16/2025 9:00 AM EDT P[facility] Attend[facility] [place] [facility] [address] [place] [address] 02/18/2025 9:00 AM EDT P[facility] Att[facility] [place] [facility] [address] [place] [phone] 02/23/2025 9:00 AM EDT P[facility] Attendance[facility] [place] [facility] [address] [place] [address] 02/25/2025 9:00 AM EDT P[facility] Attend[facility] [place] [facility] [address] [place] [address] 03/02/2025 9:00 AM EDT P[facility] Attend[facility] [place] [facility] [address] [place] [address] 03/04/2025 9:00 AM EDT P[facility] Attend[facility] [place] [facility] [address] [place] [phone] 03/09/2025 9:00 AM EDT P[facility] Attend[facility] [place] [facility] [address] [place] [phone] 03/11/2025 9:00 AM EDT P[facility] Attend[facility] [place] [facility] [address] [place] [phone] 03/16/2025 9:00 AM EDT P[facility] Attend[facility] [place] [facility] [address] [place] [phone] 03/18/2025 9:00 AM EDT P[facility] Attendance[facility] [place] [facility] [address] [place] [phone] 03/23/2025 9:00 AM EDT P[facility] Attendance[facility] [place] [facility] [address] [place] [address] 03/25/2025 9:00 AM EDT P[facility] Attend[facility] [place] [facility] [address] [place] [address] 03/30/2025 9:00 AM EDT P[facility] Attend[facility] [place] [facility] [address] [place] [phone] 04/01/2025 9:00 AM EDT [facility] Att[facility] [place] [facility] [address] [place] [address] 04/06/2025 9:00 AM EDT [facility] Attend[facility] [place] [facility] [address] [place] [address] 04/08/2025 9:00 AM EDT P[facility] Attend[facility] [place] [facility] [address] [place] [address] 04/13/2025 9:00 AM EDT P[facility] Attend[facility] [place] [facility] [address] [place] [address] 04/15/2025 9:00 AM EDT P[facility] Attend[facility] [place] [facility] [address] [place] [phone] 04/20/2025 9:00 AM EDT [facility] Att[facility] [place] [facility] [address] [place] [phone] 04/22/2025 9:00 AM EDT [facility] [place] [facility] [address] [place] [phone] 04/27/2025 9:00 AM EST [facility] Attend[facility] [place] [facility] [address] [place] [phone] 04/29/2025 9:00 AM EST [facility] Attend[facility] [place] [facility] [address] [place] [address] 05/04/2025 9:00 AM EST P[facility] Attend[facility] [place] [facility] [address] [place] [phone] 05/06/2025 9:00 AM EST P[facility] Attend[facility] [place] [facility] [address] [place] [address] 05/11/2025 9:00 AM EST [facility] Att[facility] [place] [facility] [address] [place] [address] 05/13/2025 9:00 AM EST P[facility] Attend[facility] [place] [facility] [address] [place] [address] 05/18/2025 9:00 AM EST [facility] Attend[facility] [place] [facility] [address] [place] [address] 05/20/2025 9:00 AM EST [facility] Attend[facility] [place] [facility] [address] [place] [address] 05/25/2025 9:00 AM EST [facility] Att[facility] [place] [facility] [address] [place] [address] 05/27/2025 9:00 AM EST [facility] Att[facility] [place] [facility] [address] [place] [address] 06/01/2025 9:00 AM EST [facility] [place] [facility] [address] [place] [address] 06/03/2025 9:00 AM EST [facility] [place] [facility] [address] [place] [address] 06/08/2025 9:00 AM EST [facility] Att[facility] [place] [facility] [address] [place] [address] 06/10/2025 9:00 AM EST [facility] [place] [facility] [address] [place] [address] 06/15/2025 9:00 AM EST [facility] Attend[facility] [place] [facility] [address] [place] [address] 06/17/2025 9:00 AM EST [facility] Attend[facility] [place] [facility] [address] [place] [address] 06/22/2025 9:00 AM EST P[facility] Attend[facility] [place] [facility] [address] [place] [address] 06/24/2025 9:00 AM EST P[facility] Attend[facility] [facility] [place] [facility] [address] [place] [address] 06/29/2025 9:00 AM EST P[facility] Attend[facility] [place] [facility] [address] [place] [phone] 07/01/2025 9:00 AM EST [facility] [place] [facility] [address] [place] [address] 07/06/2025 9:00 AM EST P[facility] [place] [facility] [address] [place] [phone] 2025 9:00 AM EST [facility] Attend[facility] [place] [facility] [address] [place] [address] 07/13/2025 9:00 AM EST [facility] [place] [facility] [address] [place] [phone] 07/15/2025 9:00 AM EST P[facility] Att[facility] [place] [facility] [address] [place] [address] 07/20/2025 9:00 AM EST P[facility] Att[facility] [place] [facility] [address] [place] [phone] 07/22/2025 9:00 AM EST P[facility] Att[facility] [facility] [place] [facility] [address] [place] [address] 07/27/2025 9:00 AM EST P[facility] Att[facility] [facility] [place] [facility] [address] [place] [address] 07/29/2025 9:00 AM EST PACE Attendance/Day Center [facility] [address] [place] [address] 08/03/2025 9:00 AM EST PACE Attendance/Day Center [facility] [address] [place] [address] documented as of this encounter Procedures Procedure [...] PM EDT Narrative 04/16/2024 3:[address] [facility] Diagnostic Imaging Department [address] [place] [address] [id number] Patient: ??LUCILA GRIFFITHS ?/Age/Sex: 1960 - 63 - F Unit#: ??[id number] ? Location/Status: ??SPDIGEN/REG CLI ? Mnemonic/Ordering Site: ??SPINCERFLX/SPDI Ordering Physician: ??WALE PIMENTEL CR Spine Cervica W Obl Flex Ex - 04/16/24 - 1230 Report Status:Signed History: Neck pain since fall [...] by: ??BERTA MOCK MD Dic Date/Time: ??04/16/24 1544 Sign date/Time: ??04/16/24 9238 Procedure Note Berta Mock MD - 04/22/2024 [facility] Diagnostic Imaging Department [address] [place] [address] Patient: DOMTYSONLUCILA Pichardo D.O.B./Age/Sex: 1960 - 63 - F Unit#: [id number] Location/Status: [facility]/REG CLI Mnemonic/Ordering Site: SPINCERFLX/SPDI Ordering Physician: WALE [...] Sign date/Time: 04/16/24 1554 us Wale Pimentel BILLPOSTING SUPERVISOR IMG XR PROCEDURES Final Resul t * CR SHOULDER LT MIN 2 VIEW (04/16/2024 3:49 PM EDT) Anatomical Region Laterality Modality Radiographic Edith ging 04/16/2024 12:2 2 PM EDT Narrative 04/16/2024 3:[address] [facility] Diagnostic Imaging Department [address] [place] [address] Patient: ??LUCILA GRIFFITHS ?/Age/Sex: 1960 - 63 - F Unit#: ??[id number] ? Location/Status: ??SPDIGEN/REG CLI ? Mnemonic/Ordering Site: ??SHOULDLT/SPDI Ordering Physician: ??WALE PIMENTEL BREAD WRAPPING MACHINE FEEDER CR Shoulder LT Min 2 View - 04/16/24 - 3338 Report Status:Signed History: Left shoulder pain since [...] No evidence of fracture. 2. Calcific tendinitis. [address] Dictating Physician: ??BERTA MOCK MD Electronically Signed by: ??BERTA MOCK MD Dic Date/Time: ??04/16/24 1544 Sign date/Time: ??04/16/24 5078 Procedure Note Berta Mock MD - 04/22/2024 [facility] Diagnostic Imaging Department [address] [place] [address] [id number] Patient: LUCILA GRIFFITHS /Age/Sex: 1960 - 63 - F Unit#: [id number] Location/Status: SPDIGEN/REG CLI Mnemonic/Ordering Site: [facility] Ordering [...] No evidence of fracture. 2. Calcific tendinitis. [id number] Dictating Physician: BERTA MOCK MD Electronically Signed by: BERTA MOCK MD Dic Date/Time: 04/16/24 1548 Sign date/Time: 04/16/24 1549 us Wale Pimentel BILLPOSTING SUPERVISOR IMG XR PROCEDURES Final Resul t documented in this encounter Visit Diagnoses Not on filedocumented in this encounter Care Teams Tea Taster Relationship Specialty Start Date End Date Eleazar Gleason MD [address] [address] PCP - General 04/11/24 05/01/24 documented as of this encounter
--- OUTSIDE RECORDS SUMMARY | 2024-10-17 12:46 | XMS_ITS | Encounter Summary ---
Author Organization [facility] Address [address] [place] [address] Care Team Providers Care Marine Fireman Name Role Phone Dede Pimentel GEOGRAPHIC INFORMATION SCIENTIST Primary Care Provider [phone] Encounter Details Date Type Department Care Team (Late st Contact Info) Description 10/14/2024 Community Care Management [facility] [address] [place] [phone] Carole Aquino LPN Social History Tobacco Use [...] discharge. This nurse printed medication schedule from [facility], reconciled with [facility] then confirmed with PCP. After reviewing with PCP faxed as requested to [phone] documented in this encounter Plan of Treatment Upcoming Encounters Date Type Department Care Team (Late st Contact Info) Description 10/18/2024 7:30 AM EDT PACE Home Care / [facility] [address] [place] [phone] Jhoana Grijalva 10/19/2024 7:30 AM EDT PACE Home Care / PACE Home Visit [facility] [place] [facility] [address] [place] [phone] Jhoana Grijalva 10/20/2024 7:30 AM EDT PACE Home Care / PACE Home Visit [facility] [place] [facility] [address] [place] [phone] Cheryle Pryor 10/20/2024 9:00 AM EDT PACE Attendance/[facility] [place] [facility] [address] [place] [phone] 10/20/2024 9:00 AM EDT Consult [facility] [address] [place] [phone] 10/21/2024 7:30 AM EDT PACE Home Care / PACE Home Visit [facility] [address] [place] [phone] Cheryle Pryor 10/21/2024 9:00 AM EDT Consult [facility] [address] [place] [phone] 10/21/2024 10:30 AM EDT PACE Home Care / P[facility] Visit [facility] [address] [place] [phone] Cheryle Pryor 10/22/2024 7:30 AM EDT PACE Home Care / [facility] [address] [place] [address] Shawna Lebron 10/22/2024 9:00 AM EDT [facility] Att[facility] [place] [facility] [address] [place] [address] 10/22/2024 9:00 AM EDT Consult [facility] [place] [address] [place] [address] 10/23/2024 7:30 AM EDT PACE Home Care / [facility] [place] [facility] [address] [place] [phone] Cheryle Pryor 10/23/2024 9:00 AM EDT Consult [facility] [place] [address] [place] [phone] 10/24/2024 7:30 AM EDT PACE Home Care / [facility] [place] [facility] [address] [place] [phone] Shawna Lebron 10/24/2024 9:00 AM EDT Consult [facility] [place] [address] [place] [phone] 10/25/2024 7:30 AM EDT PACE Home Care / [facility] Home Visit [facility] [place] [facility] [address] [place] [phone] Cheryle Pryor 10/26/2024 7:15 AM EDT PACE Home Care / [facility] [place] [facility] [address] [place] [phone] Cheryle Pryor 10/27/2024 7:30 AM EDT PACE Home Care / [facility] Home Visit [facility] [place] [facility] [address] [place] [phone] Cheryle Pryor 10/27/2024 9:00 AM EDT PACE Attendance[facility] [place] [facility] [address] [place] [address] 10/28/2024 7:30 AM EDT PACE Home Care / PACE Home Visit [facility] [place] [facility] [address] [place] [address] Cheryle Pryor 10/28/2024 10:30 AM EDT PACE Home Care / PACE Home Visit [facility] [place] [facility] [address] [place] [phone] Cheryle Pryor 10/29/2024 7:30 AM EDT PACE Home Care / PACE Home Visit [facility] [place] [facility] [address] [place] [phone] Shawna Lebron 10/29/2024 9:00 AM EDT PACE Attendance[facility] [place] [facility] [address] [place] [address] 10/30/2024 7:30 AM EDT PACE Home Care / PACE Home Visit [facility] [address] [place] [phone] Cheryle Pryor 10/31/2024 7:30 AM EDT PACE Home Care / PACE Home Visit [facility] [place] [facility] [address] [place] [phone] Shawna Lebron 10/31/2024 10:30 AM EDT PACE Home Care / PACE Home Visit [facility] [place] [facility] [address] [place] [phone] Jhoana Grijalva 11/01/2024 7:30 AM EDT PACE Home Care / P[facility] Home [facility] [place] [facility] [address] [place] [phone] Jhoana Grijalva 11/02/2024 7:30 AM EDT PACE Home Care / PACE Home Visit [facility] [place] [facility] [address] [place] [phone] Jhoana Grijalva 11/03/2024 7:30 AM EDT PACE Home Care / PACE Home Visit [facility] [place] [facility] [address] [place] [phone] Cheryle Pryor 11/03/2024 9:00 AM EDT PACE Attendance[facility] [place] [facility] [address] [place] [address] 11/04/2024 7:30 AM EDT PACE Home Care / PACE Home Visit [facility] [place] [facility] [address] [place] [phone] Cheryle Pryor 11/04/2024 10:30 AM EDT PACE Home Care / PACE Home Visit [facility] [place] [facility] [address] [place] [phone] Cheryle Pryor 11/05/2024 7:30 AM EDT PACE Home Care / PACE Home Visit [facility] [place] [facility] [address] [place] [phone] Shawna Lebron 11/05/2024 9:00 AM EDT PACE Attendance[facility] [place] [facility] [address] [place] [phone] 11/06/2024 7:30 AM EDT PACE Home Care / PACE Home Visit [facility] [place] [facility] [address] [place] [phone] Cheryle Pryor 11/06/2024 10:00 AM EDT Clinical Support [facility] [place] [address] [place] [phone] 11/07/2024 7:30 AM EDT PACE Home Care / PACE Home Visit [facility] [place] [facility] [address] [place] [phone] Shawna Lebron 11/07/2024 10:30 AM EDT PACE Home Care / [facility] [address] [place] [phone] Jhoana Grijalva 11/08/2024 7:30 AM EDT PACE Home Care / PACE Home Visit [facility] [place] [facility] [address] [place] [phone] Cheryle Pryor 11/09/2024 7:30 AM EDT PACE Home Care / PACE Home Visit [facility] [place] [facility] [address] [place] [phone] Cheryle Pryor 11/10/2024 7:30 AM EDT PACE Home Care / PACE Home Visit [facility] [place] [facility] [address] [place] [phone] Cheryle Pryor 11/10/2024 9:00 AM EDT PACE Attendance[facility] [place] [facility] [address] [place] [phone] 11/10/2024 9:45 AM EDT Office Visit [facility] [address] [phone] Gemini Simmons MD [address] [address] 11/11/2024 7:30 AM EDT PACE Home Care / PACE Home Visit [facility] [place] [facility] [address] [place] [phone] Cheryle Pryor 11/11/2024 10:30 AM EDT PACE Home Care / PACE Home Visit [facility] [place] [facility] [address] [place] [phone] Cheryle Pryor 11/12/2024 7:30 AM EDT PACE Home Care / [facility] [place] [facility] [address] [place] [address] Shawna Lebron 11/12/2024 9:00 AM EDT P[facility] Att[facility] [facility] [place] [facility] [address] [place] [address] 11/13/2024 7:30 AM EDT PACE Home Care / [facility] [place] [facility] [address] [place] [phone] Cheryle Pryor 11/14/2024 7:30 AM EDT PACE Home Care / PACE Home Visit [facility] [place] [facility] [address] [place] [phone] Shawna Lebron 11/14/2024 10:30 AM EDT PACE Home Care / PACE Home Visit [facility] [place] [facility] [address] [place] [phone] Jhoana Grijalva 11/15/2024 7:30 AM EDT PACE Home Care / PACE Home Visit [facility] [place] [facility] [address] [place] [phone] Jhoana Grijalva 11/16/2024 7:30 AM EDT PACE Home Care / [facility] [address] [place] [phone] Jhoana Grijalva 11/17/2024 7:30 AM EDT PACE Home Care / [facility] [place] [facility] [address] [place] [phone] Cheryle Pryor 11/17/2024 9:00 AM EDT P[facility] Att[facility] [facility] [place] [facility] [address] [place] [address] 11/18/2024 7:30 AM EDT PACE Home Care / [facility] [place] [facility] [address] [place] [address] Cheryle Pryor 11/18/2024 10:30 AM EDT PACE Home Care / PACE Home Visit [facility] [place] [facility] [address] [place] [address] Cheryle Pryor 11/19/2024 7:30 AM EDT PACE Home Care / PACE Home Visit [facility] [place] [facility] [address] [place] [address] Shawna Lebron 11/19/2024 9:00 AM EDT PACE Attendance[facility] [place] [facility] [address] [place] [address] 11/20/2024 7:30 AM EDT PACE Home Care / PACE Home Visit [facility] [address] [place] [phone] Cheryle Pryor 11/21/2024 7:30 AM EDT PACE Home Care / PACE Home Visit [facility] [place] [facility] [address] [place] [phone] Shawna Lebron 11/21/2024 10:30 AM EDT PACE Home Care / [facility] [address] [place] [phone] Jhoana Grijalva 11/22/2024 7:30 AM EDT PACE Home Care / [facility] [address] [place] [phone] Cheryle Pryor 11/23/2024 7:30 AM EDT PACE Home Care / [facility] Home Visit [facility] [place] [facility] [address] [place] [phone] Cheryle Pryor 11/24/2024 7:30 AM EDT PACE Home Care / [facility] [place] [facility] [address] [place] [address] Cheryle Pryor 11/24/2024 9:00 AM EDT PACE Attendance[facility] [place] [facility] [address] [place] [phone] 11/25/2024 7:30 AM EDT PACE Home Care / PACE Home Visit [facility] [place] [facility] [address] [place] [phone] Cheryle Pryor 11/25/2024 10:30 AM EDT PACE Home Care / PACE Home Visit [facility] [place] [facility] [address] [place] [phone] Cheryle Pryor 11/26/2024 7:30 AM EDT PACE Home Care / PACE Home Visit [facility] [place] [facility] [address] [place] [phone] Shawna Lebron 11/26/2024 9:00 AM EDT PACE Attendance[facility] [place] [facility] [address] [place] [phone] 11/27/2024 7:30 AM EDT PACE Home Care / PACE Home Visit [facility] [place] [facility] [address] [place] [phone] Cheryle Pryor 11/28/2024 7:30 AM EDT PACE Home Care / [facility] [address] [place] [phone] Shawna Lebron 11/28/2024 10:30 AM EDT PACE Home Care / [facility] [address] [place] [phone] Jhoana Grijalva 11/29/2024 7:30 AM EDT PACE Home Care / PACE Home Visit [facility] [place] [facility] [address] [place] [phone] Jhoana Grijalva 11/30/2024 7:30 AM EDT PACE Home Care / PACE Home Visit [facility] [place] [facility] [address] [place] [phone] Jhoana Grijalva 12/01/2024 7:30 AM EDT PACE Home Care / PACE Home Visit [facility] [place] [facility] [address] [place] [phone] Cheryle Pryor 12/01/2024 9:00 AM EDT PACE Attendance[facility] [place] [facility] [address] [place] [phone] 12/02/2024 7:30 AM EDT PACE Home Care / PACE Home Visit [facility] [address] [place] [phone] Cheryle Pryor 12/03/2024 7:30 AM EDT PACE Home Care / PACE Home Visit [facility] [address] [place] [phone] Shawna Lebron 12/03/2024 9:00 AM EDT PACE Attendance[facility] [place] [facility] [address] [place] [phone] 12/04/2024 7:30 AM EDT PACE Home Care / PACE Home Visit [facility] [address] [place] [phone] Cheryle Pryor 12/05/2024 7:30 AM EDT PACE Home Care / PACE Home Visit [facility] [place] [facility] [address] [place] [phone] Shawna Lebron 12/05/2024 10:30 AM EDT PACE Home Care / PACE Home Visit [facility] [address] [place] [phone] Jhoana Grijalva 12/06/2024 7:30 AM EDT PACE Home Care / [facility] [address] [place] [phone] Cheryle Pryor 12/07/2024 7:30 AM EDT PACE Home Care / PACE Home Visit [facility] [address] [place] [phone] Cheryle Pryor 12/08/2024 9:00 AM EDT [facility] [place] [facility] [address] [place] [phone] 12/10/2024 9:00 AM EDT P[facility] [place] [facility] [address] [place] [phone] 12/15/2024 9:00 AM EDT P[facility] [place] [facility] [address] [place] [phone] 12/17/2024 9:00 AM EDT P[facility] [place] [facility] [address] [place] [phone] 12/22/2024 9:00 AM EDT P[facility] [place] [facility] [address] [place] [phone] 12/24/2024 9:00 AM EDT P[facility] [place] [facility] [address] [place] [phone] 12/29/2024 9:00 AM EDT P[facility] [place] [facility] [address] [place] [phone] 12/31/2024 9:00 AM EDT P[facility] [place] [facility] [address] [place] [phone] 01/05/2025 9:00 AM EDT P[facility] [place] [facility] [address] [place] [address] 01/07/2025 9:00 AM EDT P[facility] Att[facility] [place] [facility] [address] [place] [address] 01/12/2025 9:00 AM EDT PACE Attendance[facility] [place] [facility] [address] [place] [address] 01/14/2025 9:00 AM EDT PACE Attendance[facility] [place] [facility] [address] [place] [address] 01/19/2025 9:00 AM EDT PACE Attend[facility] [place] [facility] [address] [place] [phone] 01/21/2025 9:00 AM EDT PACE Attendance[facility] [place] [facility] [address] [place] [address] 01/26/2025 9:00 AM EDT P[facility] [place] [facility] [address] [place] [phone] 01/28/2025 9:00 AM EDT P[facility] [place] [facility] [address] [place] [phone] 02/02/2025 9:00 AM EDT P[facility] [place] [facility] [address] [place] [phone] 02/04/2025 9:00 AM EDT P[facility] [place] [facility] [address] [place] [phone] 02/09/2025 9:00 AM EDT P[facility] [place] [facility] [address] [place] [phone] 02/11/2025 9:00 AM EDT P[facility] [place] [facility] [address] [place] [address] 02/16/2025 9:00 AM EDT P[facility] Att[facility] [place] [facility] [address] [place] [address] 02/18/2025 9:00 AM EDT P[facility] Attend[facility] [place] [facility] [address] [place] [address] 02/23/2025 9:00 AM EDT P[facility] Attend[facility] [place] [facility] [address] [place] [address] 02/25/2025 9:00 AM EDT PACE Attendance[facility] [place] [facility] [address] [place] [address] 03/02/2025 9:00 AM EDT P[facility] Att[facility] [place] [facility] [address] [place] [address] 03/04/2025 9:00 AM EDT P[facility] [place] [facility] [address] [place] [phone] 03/09/2025 9:00 AM EDT P[facility] [place] [facility] [address] [place] [phone] 03/11/2025 9:00 AM EDT PACE Attend[facility] [place] [facility] [address] [place] [address] 03/16/2025 9:00 AM EDT PACE Attendance[facility] [place] [facility] [address] [place] [address] 03/18/2025 9:00 AM EDT PACE Att[facility] [place] [facility] [address] [place] [address] 03/23/2025 9:00 AM EDT P[facility] Attend[facility] [place] [facility] [address] [place] [address] 03/25/2025 9:00 AM EDT PACE Attendance[facility] [place] [facility] [address] [place] [address] 03/30/2025 9:00 AM EDT P[facility] Attend[facility] [place] [facility] [address] [place] [address] 04/01/2025 9:00 AM EDT P[facility] Attend[facility] [place] [facility] [address] [place] [address] 04/06/2025 9:00 AM EDT P[facility] Attend[facility] [place] [facility] [address] [place] [address] 04/08/2025 9:00 AM EDT PACE Attend[facility] [place] [facility] [address] [place] [address] 04/13/2025 9:00 AM EDT PACE Attendance[facility] [place] [facility] [address] [place] [address] 04/15/2025 9:00 AM EDT PACE Attend[facility] [place] [facility] [address] [place] [phone] 04/20/2025 9:00 AM EDT PACE Attend[facility] [place] [facility] [address] [place] [address] 04/22/2025 9:00 AM EDT P[facility] Att[facility] [place] [facility] [address] [place] [address] 04/27/2025 9:00 AM EST P[facility] Att[facility] [place] [facility] [address] [place] [address] 04/29/2025 9:00 AM EST [facility] [place] [facility] [address] [place] [address] 05/04/2025 9:00 AM EST [facility] Att[facility] [place] [facility] [address] [place] [address] 05/06/2025 9:00 AM EST P[facility] [place] [facility] [address] [place] [phone] 05/11/2025 9:00 AM EST P[facility] [place] [facility] [address] [place] [phone] 05/13/2025 9:00 AM EST P[facility] Att[facility] [place] [facility] [address] [place] [phone] 05/18/2025 9:00 AM EST PACE Att[facility] [place] [facility] [address] [place] [phone] 05/20/2025 9:00 AM EST [facility] [place] [facility] [address] [place] [address] 05/25/2025 9:00 AM EST PACE Attend[facility] [place] [facility] [address] [place] [address] 05/27/2025 9:00 AM EST PACE Att[facility] [place] [facility] [address] [place] [address] 06/01/2025 9:00 AM EST P[facility] Att[facility] [place] [facility] [address] [place] [phone] 06/03/2025 9:00 AM EST PACE Attend[facility] [place] [facility] [address] [place] [address] 06/08/2025 9:00 AM EST PACE [facility] [place] [facility] [address] [place] [address] 06/10/2025 9:00 AM EST PACE Attend[facility] [place] [facility] [address] [place] [address] 06/15/2025 9:00 AM EST P[facility] Att[facility] [place] [facility] [address] [place] [address] 06/17/2025 9:00 AM EST PACE Att[facility] [place] [facility] [address] [place] [address] 06/22/2025 9:00 AM EST PACE [facility] [place] [facility] [address] [place] [phone] 06/24/2025 9:00 AM EST [facility] [place] [facility] [address] [place] [address] 06/29/2025 9:00 AM EST PACE [facility] [place] [facility] [address] [place] [address] 07/01/2025 9:00 AM EST PACE [facility] [place] [facility] [address] [place] [address] 07/06/2025 9:00 AM EST PACE [facility] [place] [facility] [address] [place] [address] 2025 9:00 AM EST PACE [facility] [place] [facility] [address] [place] [address] 07/13/2025 9:00 AM EST PACE [facility] [place] [facility] [address] [place] [address] 07/15/2025 9:00 AM EST PACE Attend[facility] [place] [facility] [address] [place] [address] 07/20/2025 9:00 AM EST PACE Attendance/Day Center [facility] [address] [place] [address] 07/22/2025 9:00 AM EST PACE Attendance/Day Center [facility] [place] [facility] [address] [place] [phone] 07/27/2025 9:00 AM EST [facility] [place] [facility] [address] [address] 07/29/2025 9:00 AM EST PACE Attendance/[place] [facility] [place] [facility] [address] [place] [address] 08/03/2025 9:00 AM EST PACE Attendance[facility] [facility] [place] [facility] [address] [place] [phone] documented as of this encounter Visit Diagnoses Not on filedocumented in this encounter Care Teams Marine Fireman Relationship Specialty Start Date End Date Dede Pimentel NP [address] [place] [id number] PCP - General Family Medicine 05/02/24 documented as of this encounter
--- OUTSIDE RECORDS SUMMARY | 2024-10-17 12:46 | XMS_ITS | Encounter Summary ---
Author Organization [facility] Address [address] [place] [address] Care Team Providers Care Multimedia Project Manager Name Role Phone Dede Pimentel SCRIP CLERK Primary Care Provider [phone] Encounter Details Date Type Department Care Team (Late st Contact Info) Description 10/14/2024 7:30 AM EDT PACE Home Care / P[facility] Home Visit [facility] [address] [place] [phone] Cheryle Pryor Social History Tobacco Use Types [...] [facility] [address] [place] [phone] Jhoana Grijalva 10/19/2024 7:30 AM EDT PACE Home Care / [facility] [address] [place] [phone] Jhoana Grijalva 10/20/2024 7:30 AM EDT PACE Home Care / [facility] Visit [facility] [address] [place] [phone] Cheryle Pryor 10/20/2024 9:00 AM EDT [facility] Attend[facility] [place] [facility] [address] [place] [phone] 10/20/2024 9:00 AM EDT Consult [facility] [place] [address] [place] [phone] 10/21/2024 7:30 AM EDT PACE Home Care / [facility] Visit [facility] [address] [place] [phone] Cheryle Pryor 10/21/2024 9:00 AM EDT Consult [facility] [place] [address] [place] [phone] 10/21/2024 10:30 AM EDT PACE Home Care / [facility] Home Visit [facility] [address] [place] [phone] Cheryle Pryor 10/22/2024 7:30 AM EDT PACE Home Care / [facility] Home Visit [facility] [address] [place] [phone] Shawna Lebron 10/22/2024 9:00 AM EDT P[facility] Att[facility] [place] [facility] [address] [place] [phone] 10/22/2024 9:00 AM EDT Consult [facility] [place] [address] [place] [phone] 10/23/2024 7:30 AM EDT PACE Home Care / [facility] Home Visit [facility] [address] [place] [phone] Cheryle Pryor 10/23/2024 9:00 AM EDT Consult [facility] [place] [address] [place] [phone] 10/24/2024 7:30 AM EDT PACE Home Care / [facility] [address] [place] [phone] Shawna Lebron 10/24/2024 9:00 AM EDT Consult [facility] [place] [address] [place] [phone] 10/25/2024 7:30 AM EDT PACE Home Care / [facility] Visit [facility] [address] [place] [phone] Cheryle Pryor 10/26/2024 7:15 AM EDT PACE Home Care / [facility] [address] [place] [phone] Cheryle Pryor 10/27/2024 7:30 AM EDT PACE Home Care / [facility] [address] [place] [phone] Cheryle Pryor 10/27/2024 9:00 AM EDT [facility] Att[facility] [place] [facility] [address] [place] [phone] 10/28/2024 7:30 AM EDT PACE Home Care / P[facility] Home Visit [facility] [address] [place] [phone] Cheryle Pryor 10/28/2024 10:30 AM EDT PACE Home Care / [facility] Home Visit [facility] [address] [place] [phone] Cehryle Pryor 10/29/2024 7:30 AM EDT PACE Home Care / PACE Home Visit [facility] [address] [place] [phone] Shawna Lebron 10/29/2024 9:00 AM EDT PACE Attendance[facility] [place] [facility] [address] [place] [address] 10/30/2024 7:30 AM EDT PACE Home Care / PACE Home Visit [facility] [address] [place] [phone] Cheryle Pryor 10/31/2024 7:30 AM EDT PACE Home Care / PACE Home Visit [facility] [address] [place] [phone] Shawna Lebron 10/31/2024 10:30 AM EDT PACE Home Care / PACE Home Visit [facility] [address] [place] [phone] Jhoana Grijalva 11/01/2024 7:30 AM EDT PACE Home Care / PACE Home Visit [facility] [address] [place] [phone] Jhoana Grijalva 11/02/2024 7:30 AM EDT PACE Home Care / PACE Home Visit [facility] [address] [place] [phone] Jhoana Grijalva 11/03/2024 7:30 AM EDT PACE Home Care / [facility] Visit [facility] [address] [place] [phone] Cheryle Pryor 11/03/2024 9:00 AM EDT PACE Attendance[facility] [place] [facility] [address] [place] [address] 11/04/2024 7:30 AM EDT PACE Home Care / PACE Home Visit [facility] [address] [place] [phone] Cheryle Pryor 11/04/2024 10:30 AM EDT PACE Home Care / PACE Home Visit [facility] [address] [place] [phone] Cheryle Pryor 11/05/2024 7:30 AM EDT PACE Home Care / PACE Home Visit [facility] [address] [place] [phone] Shawna Lebron 11/05/2024 9:00 AM EDT PACE Attendance[facility] [place] [facility] [address] [place] [phone] 11/06/2024 7:30 AM EDT PACE Home Care / PACE Home Visit [facility] [address] [place] [phone] Cheryle Pryor 11/06/2024 10:00 AM EDT Clinical Support [facility] [address] [place] [phone] 11/07/2024 7:30 AM EDT PACE Home Care / PACE Home Visit [facility] [address] [place] [phone] Shawna Lebron 11/07/2024 10:30 AM EDT PACE Home Care / PACE Home Visit [facility] [address] [place] [phone] Jhoana Grijalva 11/08/2024 7:30 AM EDT PACE Home Care / PACE Home Visit [facility] [address] [place] [phone] Cheryle Pryor 11/09/2024 7:30 AM EDT PACE Home Care / [facility] [address] [place] [phone] Cheryle Pryor 11/10/2024 7:30 AM EDT PACE Home Care / [facility] Visit [facility] [address] [place] [phone] Cheryle Pryor 11/10/2024 9:00 AM EDT [facility] Att[facility] [place] [facility] [address] [place] [phone] 11/10/2024 9:45 AM EDT Office Visit [facility] [address] [place] [phone] Gemini Simmons MD [address] Boyd [address] [place] [phone] 11/11/2024 7:30 AM EDT PACE Home Care / [facility] Visit [facility] [address] [place] [phone] Cheryle Pryor 11/11/2024 10:30 AM EDT PACE Home Care / [facility] Visit [facility] [address] [place] [phone] Cheryle Pryor 11/12/2024 7:30 AM EDT PACE Home Care / P[facility] Home Visit [facility] [address] [place] [phone] Shawna Lebron 11/12/2024 9:00 AM EDT P[facility] Attend[facility] [facility] [place] [facility] [address] [place] [address] 11/13/2024 7:30 AM EDT PACE Home Care / PACE Home Visit [facility] [address] [place] [phone] Cheryle Pryor 11/14/2024 7:30 AM EDT PACE Home Care / [facility] Visit [facility] [address] [place] [phone] Shawna Lebron 11/14/2024 10:30 AM EDT PACE Home Care / [facility] Home Visit [facility] [address] [place] [phone] Jhoana Grijalva 11/15/2024 7:30 AM EDT PACE Home Care / [facility] Visit [facility] [address] [place] [phone] Jhoana Grijalva 11/16/2024 7:30 AM EDT PACE Home Care / [facility] Visit [facility] [address] [place] [phone] Jhoana Grijalva 11/17/2024 7:30 AM EDT PACE Home Care / [facility] Visit [facility] [address] [place] [phone] Cheryle Pryor 11/17/2024 9:00 AM EDT [facility] [place] [facility] [address] [place] [phone] 11/18/2024 7:30 AM EDT PACE Home Care / [facility] Visit [facility] [address] [place] [phone] Cheryle Pryor 11/18/2024 10:30 AM EDT PACE Home Care / P[facility] Home Visit [facility] [address] [place] [phone] Cheryle Pryor 11/19/2024 7:30 AM EDT PACE Home Care / P[facility] Home Visit [facility] [address] [place] [phone] Shawna Lebron 11/19/2024 9:00 AM EDT [facility] Att[facility] [place] [facility] [address] [place] [phone] 11/20/2024 7:30 AM EDT PACE Home Care / P[facility] Visit [facility] [address] [place] [phone] Cheryle Pryor 11/21/2024 7:30 AM EDT PACE Home Care / P[facility] Home Visit [facility] [address] [place] [phone] Shawna Lebron 11/21/2024 10:30 AM EDT PACE Home Care / [facility] Visit [facility] [address] [place] [phone] Jhoana Grijalva 11/22/2024 7:30 AM EDT PACE Home Care / PACE Home Visit [facility] [address] [place] [phone] Cheryle Pryor 11/23/2024 7:30 AM EDT PACE Home Care / P[facility] Visit [facility] [address] [place] [phone] Cheryle Pryor 11/24/2024 7:30 AM EDT PACE Home Care / [facility] Visit [facility] [address] [place] [phone] Cheryle Pryor 11/24/2024 9:00 AM EDT [facility] Att[facility] [facility] [place] [facility] [address] [place] [phone] 11/25/2024 7:30 AM EDT PACE Home Care / P[facility] Visit [facility] [address] [place] [phone] Cheryle Pryor 11/25/2024 10:30 AM EDT PACE Home Care / PACE [facility] Visit [facility] [address] [place] [phone] Cheryle Pryor 11/26/2024 7:30 AM EDT PACE Home Care / P[facility] Visit [facility] [address] [place] [phone] Shawna Lebron 11/26/2024 9:00 AM EDT PACE Attendance/[facility] [place] [facility] [address] [place] [phone] 11/27/2024 7:30 AM EDT PACE Home Care / [facility] Visit [facility] [address] [place] [phone] Cheryle Pryor 11/28/2024 7:30 AM EDT PACE Home Care / [facility] Visit [facility] [address] [place] [phone] Shawan Lebron 11/28/2024 10:30 AM EDT PACE Home Care / PACE Home Visit [facility] [address] [place] [phone] Jhoana Grijalva 11/29/2024 7:30 AM EDT PACE Home Care / [facility] Visit [facility] [address] [place] [phone] Jhoana Grijalva 11/30/2024 7:30 AM EDT PACE Home Care / P[facility] Visit [facility] [address] [place] [phone] Jhoana Grijalva 12/01/2024 7:30 AM EDT PACE Home Care / P[facility] Visit [facility] [address] [place] [phone] Cheryle Pryor 12/01/2024 9:00 AM EDT P[facility] Att[facility] [place] [facility] [address] [place] [phone] 12/02/2024 7:30 AM EDT PACE Home Care / [facility] Visit [facility] [address] [place] [phone] Cheryle Pryor 12/03/2024 7:30 AM EDT PACE Home Care / [facility] Visit [facility] [address] [place] [phone] Shawna Lebron 12/03/2024 9:00 AM EDT PACE Attendance/[facility] [place] [facility] [address] [place] [phone] 12/04/2024 7:30 AM EDT PACE Home Care / P[facility] Visit [facility] [address] [place] [phone] Cheryle Pryor 12/05/2024 7:30 AM EDT PACE Home Care / PACE Home Visit [facility] [address] [place] [phone] Shawna Lebron 12/05/2024 10:30 AM EDT PACE Home Care / [facility] Visit [facility] [address] [place] [phone] Jhoana Grijalva 12/06/2024 7:30 AM EDT PACE Home Care / [facility] [address] [place] [phone] Cheryle Pryor 12/07/2024 7:30 AM EDT PACE Home Care / [facility] Visit [facility] [address] [place] [phone] Cheryle Gordon 12/08/2024 9:00 AM EDT [facility] Att[facility] [place] [facility] [address] [place] [address] 12/10/2024 9:00 AM EDT P[facility] Att[facility] [place] [facility] [address] [place] [address] 12/15/2024 9:00 AM EDT P[facility] Att[facility] [place] [facility] [address] [place] [address] 12/17/2024 9:00 AM EDT [facility] [address] [place] [phone] 12/22/2024 9:00 AM EDT P[facility] Attend[facility] [place] [facility] [address] [place] [phone] 12/24/2024 9:00 AM EDT P[facility] Att[facility] [place] [facility] [address] [place] [phone] 12/29/2024 9:00 AM EDT P[facility] Att[facility] [place] [facility] [address] [place] [phone] 12/31/2024 9:00 AM EDT P[facility] Attend[facility] [place] [facility] [address] [place] [phone] 01/05/2025 9:00 AM EDT P[facility] Att[facility] [place] [facility] [address] [place] [address] 01/07/2025 9:00 AM EDT P[facility] Attend[facility] [place] [facility] [address] [place] [address] 01/12/2025 9:00 AM EDT P[facility] Attend[facility] [place] [facility] [address] [place] [phone] 01/14/2025 9:00 AM EDT PACE Attendance[facility] [place] [facility] [address] [place] [address] 01/19/2025 9:00 AM EDT PACE Attendance[facility] [place] [facility] [address] [place] [address] 01/21/2025 9:00 AM EDT PACE Attendance[facility] [place] [facility] [address] [place] [address] 01/26/2025 9:00 AM EDT PACE Attendance[facility] [place] [facility] [address] [place] [phone] 01/28/2025 9:00 AM EDT PACE Attendance[facility] [place] [facility] [address] [place] [phone] 02/02/2025 9:00 AM EDT PACE Attendance[facility] [place] [facility] [address] [place] [phone] 02/04/2025 9:00 AM EDT PACE Attendance[facility] [place] [facility] [address] [place] [phone] 02/09/2025 9:00 AM EDT PACE Attendance[facility] [place] [facility] [address] [place] [phone] 02/11/2025 9:00 AM EDT PACE Attendance[facility] [place] [facility] [address] [place] [address] 02/16/2025 9:00 AM EDT P[facility] [place] [facility] [address] [place] [address] 02/18/2025 9:00 AM EDT P[facility] [place] [facility] [address] [place] [phone] 02/23/2025 9:00 AM EDT [facility] [place] [facility] [address] [place] [address] 02/25/2025 9:00 AM EDT P[facility] Att[facility] [place] [facility] [address] [place] [address] 03/02/2025 9:00 AM EDT PACE Attendance[facility] [place] [facility] [address] [place] [address] 03/04/2025 9:00 AM EDT PACE Attendance[facility] [place] [facility] [address] [place] [address] 03/09/2025 9:00 AM EDT PACE Attendance[facility] [place] [facility] [address] [place] [address] 03/11/2025 9:00 AM EDT PACE Attendance[facility] [place] [facility] [address] [place] [phone] 03/16/2025 9:00 AM EDT PACE Attendance[facility] [place] [facility] [address] [place] [phone] 03/18/2025 9:00 AM EDT P[facility] Att[facility] [place] [facility] [address] [place] [phone] 03/23/2025 9:00 AM EDT P[facility] Att[facility] [place] [facility] [address] [place] [address] 03/25/2025 9:00 AM EDT P[facility] Att[facility] [place] [facility] [address] [place] [address] 03/30/2025 9:00 AM EDT P[facility] Att[facility] [place] [facility] [address] [place] [phone] 04/01/2025 9:00 AM EDT P[facility] Attend[facility] [place] [facility] [address] [place] [address] 04/06/2025 9:00 AM EDT P[facility] Attend[facility] [place] [facility] [address] [place] [address] 04/08/2025 9:00 AM EDT P[facility] Attend[facility] [place] [facility] [address] [place] [address] 04/13/2025 9:00 AM EDT P[facility] Att[facility] [place] [facility] [address] [place] [phone] 04/15/2025 9:00 AM EDT P[facility] Att[facility] [place] [facility] [address] [place] [address] 04/20/2025 9:00 AM EDT P[facility] Att[facility] [place] [facility] [address] [place] [address] 04/22/2025 9:00 AM EDT P[facility] Att[facility] [place] [facility] [address] [place] [phone] 04/27/2025 9:00 AM EST [facility] [place] [facility] [address] [place] [phone] 04/29/2025 9:00 AM EST [facility] Attend[facility] [place] [facility] [address] [place] [address] 05/04/2025 9:00 AM EST [facility] Attend[facility] [place] [facility] [address] [place] [phone] 05/06/2025 9:00 AM EST [facility] Attend[facility] [place] [facility] [address] [place] [phone] 05/11/2025 9:00 AM EST [facility] [place] [facility] [address] [place] [address] 05/13/2025 9:00 AM EST [facility] [place] [facility] [address] [place] [address] 05/18/2025 9:00 AM EST [facility] [place] [facility] [address] [place] [phone] 05/20/2025 9:00 AM EST [facility] [place] [facility] [address] [place] [phone] 05/25/2025 9:00 AM EST [facility] [place] [facility] [address] [place] [phone] 05/27/2025 9:00 AM EST [facility] [place] [facility] [address] [place] [phone] 06/01/2025 9:00 AM EST P[facility] Attend[facility] [place] [facility] [address] [place] [phone] 06/03/2025 9:00 AM EST P[facility] Att[facility] [place] [facility] [address] [place] [phone] 06/08/2025 9:00 AM EST P[facility] [place] [facility] [address] [place] [phone] 06/10/2025 9:00 AM EST P[facility] Att[facility] [place] [facility] [address] [place] [phone] 06/15/2025 9:00 AM EST [facility] Att[facility] [place] [facility] [address] [place] [phone] 06/17/2025 9:00 AM EST [facility] [place] [facility] [address] [place] [phone] 06/22/2025 9:00 AM EST [facility] [place] [facility] [address] [place] [address] 06/24/2025 9:00 AM EST [facility] [place] [facility] [address] [place] [address] 06/29/2025 9:00 AM EST [facility] [place] [facility] [address] [place] [address] 07/01/2025 9:00 AM EST [facility] [place] [facility] [address] [place] [phone] 07/06/2025 9:00 AM EST P[facility] [place] [facility] [address] [place] [phone] 2025 9:00 AM EST P[facility] Attend[facility] [place] [facility] [address] [place] [phone] 07/13/2025 9:00 AM EST [facility] [place] [facility] [address] [place] [phone] 07/15/2025 9:00 AM EST P[facility] Att[facility] [place] [facility] [address] [place] [phone] 07/20/2025 9:00 AM EST [facility] [place] [facility] [address] [place] [address] 07/22/2025 9:00 AM EST P[facility] [place] [facility] [address] [place] [address] 07/27/2025 9:00 AM EST [facility] [place] [facility] [address] [place] [address] 07/29/2025 9:00 AM EST PACE Attendance/Day Center [employer] [facility] [place] [address] [place] [address] 08/03/2025 9:00 AM EST PACE [facility] [address] [phone] documented as of this encounter Visit Diagnoses Not on filedocumented in this encounter Care Teams Multimedia Project Manager Relationship Specialty Start Date End Date Dede Pimentel NP [address] [place] [phone] PCP - General Family Medicine 05/02/24 documented as of this encounter
--- OUTSIDE RECORDS SUMMARY | 2024-10-17 12:46 | XMS_ITS | Encounter Summary ---
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 Care Provider Encounter Details Date Type Department Care Team (Late st Contact Info) Description 10/15/2024 7:00 AM EDT PACE Home Care / PACE Home Visit [facility] [address] [place] [phone] Cheryle Pryor Social History Tobacco Use Types [...] [facility] [address] [place] [phone] Jhoana Grijalva 10/19/2024 7:30 AM EDT PACE Home Care / [facility] [address] [place] [phone] Jhoana Grijalva 10/20/2024 7:30 AM EDT PACE Home Care / [facility] Visit [facility] [address] [place] [phone] Cheryle Pryor 10/20/2024 9:00 AM EDT P[facility] Attendance[facility] [place] [facility] [address] [place] [phone] 10/20/2024 9:00 AM EDT Consult [facility] [place] [address] [place] [phone] 10/21/2024 7:30 AM EDT PACE Home Care / [facility] Visit [facility] [address] [place] [phone] Cheryle Pryor 10/21/2024 9:00 AM EDT Consult [facility] [place] [address] [place] [phone] 10/21/2024 10:30 AM EDT PACE Home Care / P[facility] Visit [facility] [address] [place] [phone] Cheryle Pryor 10/22/2024 7:30 AM EDT PACE Home Care / PACE Home Visit [facility] [address] [place] [phone] Shawna Lebron 10/22/2024 9:00 AM EDT PACE Att[facility] [place] [facility] [address] [place] [phone] 10/22/2024 9:00 AM EDT Consult [facility] [place] [address] [place] [phone] 10/23/2024 7:30 AM EDT PACE Home Care / [facility] Visit [facility] [address] [place] [phone] Cheryle Pryor 10/23/2024 9:00 AM EDT Consult [facility] [place] [address] [place] [phone] 10/24/2024 7:30 AM EDT PACE Home Care / [facility] [address] [place] [phone] Shawna Lebron 10/24/2024 9:00 AM EDT Consult [facility] [place] [address] [place] [phone] 10/25/2024 7:30 AM EDT PACE Home Care / [facility] Visit [facility] [address] [place] [phone] Cheryle Pryor 10/26/2024 7:15 AM EDT PACE Home Care / [facility] Visit [facility] [address] [place] [phone] Cheryle Pryor 10/27/2024 7:30 AM EDT PACE Home Care / [facility] [address] [place] [phone] Cheryle Pryor 10/27/2024 9:00 AM EDT PACE Att[facility] [place] [facility] [address] [place] [address] 10/28/2024 7:30 AM EDT PACE Home Care / PACE Home Visit [facility] [address] [place] [phone] Cheryle Pryor 10/28/2024 10:30 AM EDT PACE Home Care / [facility] Visit [facility] [address] [place] [phone] Cheryle Pryor 10/29/2024 7:30 AM EDT PACE Home Care / PACE Home Visit [facility] [address] [place] [phone] Shawna Lebron 10/29/2024 9:00 AM EDT PACE Attendance/[facility] [place] [facility] [address] [place] [address] 10/30/2024 7:30 AM EDT PACE Home Care / PACE Home Visit [facility] [address] [place] [phone] Cheryle Pryor 10/31/2024 7:30 AM EDT PACE Home Care / PACE Home Visit [facility] [address] [place] [phone] Shawna Lebron 10/31/2024 10:30 AM EDT PACE Home Care / PACE Home Visit [facility] [address] [place] [phone] Jhoana Grijalva 11/01/2024 7:30 AM EDT PACE Home Care / PACE Home Visit [facility] [address] [place] [phone] Jhoana Grijalva 11/02/2024 7:30 AM EDT PACE Home Care / PACE Home Visit [facility] [address] [place] [phone] Jhoana Grijavla 11/03/2024 7:30 AM EDT PACE Home Care / [facility] Visit [facility] [address] [place] [phone] Cheryle Pryor 11/03/2024 9:00 AM EDT PACE Attendance/[facility] [place] [facility] [address] [place] [address] 11/04/2024 7:30 AM EDT PACE Home Care / PACE Home Visit [facility] [address] [place] [phone] Cheryle Pryor 11/04/2024 10:30 AM EDT PACE Home Care / PACE Home Visit [facility] [address] [place] [phone] Cheryle Pryor 11/05/2024 7:30 AM EDT PACE Home Care / PACE Home Visit [facility] [address] [place] [phone] Shawna Lebron 11/05/2024 9:00 AM EDT PACE Attendance/[facility] [place] [facility] [address] [place] [phone] 11/06/2024 7:30 AM EDT PACE Home Care / PACE Home Visit [facility] [address] [place] [phone] Cheryle Pryor 11/06/2024 10:00 AM EDT Clinical Support [facility] [place] [address] [place] [phone] 11/07/2024 7:30 AM EDT PACE Home Care / PACE Home Visit [facility] [place] [facility] [address] [place] [phone] Shawna Lebron 11/07/2024 10:30 AM EDT PACE Home Care / PACE Home Visit [facility] [address] [place] [phone] Jhoana Grijalva 11/08/2024 7:30 AM EDT PACE Home Care / PACE Home Visit [facility] [address] [place] [phone] Cheryle Pryor 11/09/2024 7:30 AM EDT PACE Home Care / [facility] Visit [facility] [address] [place] [phone] Cheryle Pryor 11/10/2024 7:30 AM EDT PACE Home Care / P[facility] Visit [facility] [address] [place] [phone] Cheryle Pryor 11/10/2024 9:00 AM EDT PACE Att[facility] [place] [facility] [address] [place] [phone] 11/10/2024 9:45 AM EDT Office Visit [facility] [address] [place] [phone] Gemini Simmons MD [address] Boyd [address] [place] [address] 11/11/2024 7:30 AM EDT PACE Home Care / P[facility] Visit [facility] [address] [place] [phone] Cheryle Pryor 11/11/2024 10:30 AM EDT PACE Home Care / PACE [facility] Visit [facility] [address] [place] [phone] Cheryle Pryor 11/12/2024 7:30 AM EDT PACE Home Care / PACE Home Visit [facility] [address] [place] [phone] Shawna Lebron 11/12/2024 9:00 AM EDT PACE Attendance[facility] [facility] [place] [facility] [address] [place] [address] 11/13/2024 7:30 AM EDT PACE Home Care / PACE Home Visit [facility] [address] [place] [phone] Cheryle Pryor 11/14/2024 7:30 AM EDT PACE Home Care / [facility] Visit [facility] [address] [place] [phone] Shawna Lebron 11/14/2024 10:30 AM EDT PACE Home Care / P[facility] Visit [facility] [address] [place] [phone] Jhoana Grijalva 11/15/2024 7:30 AM EDT PACE Home Care / P[facility] Visit [facility] [address] [place] [phone] Jhoana Grijalva 11/16/2024 7:30 AM EDT PACE Home Care / P[facility] Visit [facility] [address] [place] [phone] Jhoana Grijalva 11/17/2024 7:30 AM EDT PACE Home Care / P[facility] Visit [facility] [address] [place] [phone] Cheryle Pryor 11/17/2024 9:00 AM EDT PACE Att[facility] [place] [facility] [address] [place] [phone] 11/18/2024 7:30 AM EDT PACE Home Care / P[facility] Visit [facility] [address] [place] [phone] Cheryle Pryor 11/18/2024 10:30 AM EDT PACE Home Care / P[facility] Visit [facility] [address] [place] [phone] Cheryle Pryor 11/19/2024 7:30 AM EDT PACE Home Care / PACE [facility] Visit [facility] [address] [place] [phone] Shawna Lebron 11/19/2024 9:00 AM EDT P[facility] Att[facility] [place] [facility] [address] [place] [phone] 11/20/2024 7:30 AM EDT PACE Home Care / P[facility] Visit [facility] [address] [place] [phone] Cheryle Pryor 11/21/2024 7:30 AM EDT PACE Home Care / P[facility] Visit [facility] [address] [place] [phone] Shawna Lebron 11/21/2024 10:30 AM EDT PACE Home Care / P[facility] Visit [facility] [address] [place] [phone] Jhoana Grijalva 11/22/2024 7:30 AM EDT PACE Home Care / PACE Home Visit [facility] [address] [place] [phone] Cheryle Pryor 11/23/2024 7:30 AM EDT PACE Home Care / P[facility] Visit [facility] [address] [place] [phone] Cheryle Pryor 11/24/2024 7:30 AM EDT PACE Home Care / P[facility] Visit [facility] [address] [place] [phone] Cheryle Pryor 11/24/2024 9:00 AM EDT P[facility] Att[facility] [place] [facility] [address] [place] [phone] 11/25/2024 7:30 AM EDT PACE Home Care / PACE [facility] Visit [facility] [address] [place] [phone] Cheryle Pryor 11/25/2024 10:30 AM EDT PACE Home Care / PACE Home Visit [facility] [address] [place] [phone] Cheryle Pryor 11/26/2024 7:30 AM EDT PACE Home Care / PACE [facility] Visit [facility] [address] [place] [phone] Shawna Lebron 11/26/2024 9:00 AM EDT PACE Attendance/Day [facility] [place] [facility] [address] [place] [phone] 11/27/2024 7:30 AM EDT PACE Home Care / [facility] [address] [place] [phone] Cheryle Pryor 11/28/2024 7:30 AM EDT PACE Home Care / [facility] Visit [facility] [address] [place] [phone] Shawna Lebron 11/28/2024 10:30 AM EDT PACE Home Care / P[facility] Home Visit [facility] [address] [place] [phone] Jhoana Grijalva 11/29/2024 7:30 AM EDT PACE Home Care / P[facility] Visit [facility] [address] [place] [phone] Jhoana Grijalva 11/30/2024 7:30 AM EDT PACE Home Care / P[facility] Visit [facility] [address] [place] [phone] Jhoana Grijalva 12/01/2024 7:30 AM EDT PACE Home Care / [facility] Visit [facility] [address] [place] [phone] Cheryle Pryor 12/01/2024 9:00 AM EDT PACE Attendance[facility] [place] [facility] [address] [place] [phone] 12/02/2024 7:30 AM EDT PACE Home Care / P[facility] Visit [facility] [address] [place] [phone] Cheryle Pryor 12/03/2024 7:30 AM EDT PACE Home Care / PACE [facility] Visit [facility] [address] [place] [phone] Shawna Lebron 12/03/2024 9:00 AM EDT PACE Attendance/Day [facility] [place] [facility] [address] [place] [phone] 12/04/2024 7:30 AM EDT PACE Home Care / [facility] Visit [facility] [address] [place] [phone] Cheryle Pryor 12/05/2024 7:30 AM EDT PACE Home Care / PACE Home Visit [facility] [address] [place] [phone] Shawna Lebron 12/05/2024 10:30 AM EDT PACE Home Care / [facility] Visit [facility] [address] [place] [phone] Jhoana Grijalva 12/06/2024 7:30 AM EDT PACE Home Care / [facility] [address] [place] [phone] Cheryle Pryor 12/07/2024 7:30 AM EDT PACE Home Care / [facility] [address] [place] [phone] Cheryle Gordon 12/08/2024 9:00 AM EDT PACE Att[facility] [place] [facility] [address] [place] [address] 12/10/2024 9:00 AM EDT PACE Attend[facility] [place] [facility] [address] [place] [address] 12/15/2024 9:00 AM EDT PACE Att[facility] [place] [facility] [address] [place] [address] 12/17/2024 9:00 AM EDT PACE [facility] [place] [facility] [address] [place] [phone] 12/22/2024 9:00 AM EDT PACE Attend[facility] [place] [facility] [address] [place] [phone] 12/24/2024 9:00 AM EDT PACE Attend[facility] [place] [facility] [address] [place] [phone] 12/29/2024 9:00 AM EDT PACE Att[facility] [place] [facility] [address] [place] [phone] 12/31/2024 9:00 AM EDT PACE Att[facility] [place] [facility] [address] [place] [phone] 01/05/2025 9:00 AM EDT PACE Attend[facility] [place] [facility] [address] [place] [address] 01/07/2025 9:00 AM EDT PACE Attendance[facility] [place] [facility] [address] [place] [address] 01/12/2025 9:00 AM EDT PACE Attend[facility] [place] [facility] [address] [place] [phone] 01/14/2025 9:00 AM EDT PACE Attendance/[facility] [place] [facility] [address] [place] [address] 01/19/2025 9:00 AM EDT PACE Attendance[facility] [place] [facility] [address] [place] [address] 01/21/2025 9:00 AM EDT PACE Attendance[facility] [place] [facility] [address] [place] [address] 01/26/2025 9:00 AM EDT PACE Attendance/[facility] [place] [facility] [address] [place] [phone] 01/28/2025 9:00 AM EDT PACE Attendance/[facility] [place] [facility] [address] [place] [phone] 02/02/2025 9:00 AM EDT PACE Attendance/[facility] [place] [facility] [address] [place] [phone] 02/04/2025 9:00 AM EDT PACE Attendance/[facility] [place] [facility] [address] [place] [phone] 02/09/2025 9:00 AM EDT PACE Attendance/[facility] [place] [facility] [address] [place] [phone] 02/11/2025 9:00 AM EDT PACE Attendance/[facility] [place] [facility] [address] [place] [address] 02/16/2025 9:00 AM EDT PACE Att[facility] [place] [facility] [address] [place] [address] 02/18/2025 9:00 AM EDT PACE Att[facility] [place] [facility] [address] [place] [phone] 02/23/2025 9:00 AM EDT PACE Attend[facility] [place] [facility] [address] [place] [address] 02/25/2025 9:00 AM EDT PACE Attend[facility] [place] [facility] [address] [place] [address] 03/02/2025 9:00 AM EDT PACE Attendance/[facility] [place] [facility] [address] [place] [address] 03/04/2025 9:00 AM EDT PACE Attendance[facility] [place] [facility] [address] [place] [address] 03/09/2025 9:00 AM EDT PACE Attendance/[facility] [place] [facility] [address] [place] [address] 03/11/2025 9:00 AM EDT PACE Attendance/[facility] [place] [facility] [address] [place] [phone] 03/16/2025 9:00 AM EDT PACE Attendance/[facility] [place] [facility] [address] [place] [phone] 03/18/2025 9:00 AM EDT PACE Att[facility] [place] [facility] [address] [place] [phone] 03/23/2025 9:00 AM EDT PACE Attend[facility] [place] [facility] [address] [place] [address] 03/25/2025 9:00 AM EDT PACE Attend[facility] [place] [facility] [address] [place] [address] 03/30/2025 9:00 AM EDT PACE Attend[facility] [place] [facility] [address] [place] [phone] 04/01/2025 9:00 AM EDT PACE Att[facility] [place] [facility] [address] [place] [address] 04/06/2025 9:00 AM EDT PACE Att[facility] [place] [facility] [address] [place] [address] 04/08/2025 9:00 AM EDT PACE Att[facility] [place] [facility] [address] [place] [address] 04/13/2025 9:00 AM EDT PACE Att[facility] [place] [facility] [address] [place] [phone] 04/15/2025 9:00 AM EDT PACE Att[facility] [place] [facility] [address] [place] [address] 04/20/2025 9:00 AM EDT PACE Attend[facility] [place] [facility] [address] [place] [address] 04/22/2025 9:00 AM EDT PACE Att[facility] [place] [facility] [address] [place] [phone] 04/27/2025 9:00 AM EST PACE Attendance[facility] [place] [facility] [address] [place] [phone] 04/29/2025 9:00 AM EST PACE Attend[facility] [place] [facility] [address] [place] [address] 05/04/2025 9:00 AM EST PACE Attend[facility] [place] [facility] [address] [place] [phone] 05/06/2025 9:00 AM EST PACE Attend[facility] [place] [facility] [address] [place] [phone] 05/11/2025 9:00 AM EST PACE [facility] [place] [facility] [address] [place] [address] 05/13/2025 9:00 AM EST PACE Att[facility] [place] [facility] [address] [place] [address] 05/18/2025 9:00 AM EST PACE Attend[facility] [place] [facility] [address] [place] [phone] 05/20/2025 9:00 AM EST PACE Att[facility] [place] [facility] [address] [place] [phone] 05/25/2025 9:00 AM EST PACE Attend[facility] [place] [facility] [address] [place] [phone] 05/27/2025 9:00 AM EST PACE [facility] [place] [facility] [address] [place] [phone] 06/01/2025 9:00 AM EST PACE Attend[facility] [place] [facility] [address] [place] [phone] 06/03/2025 9:00 AM EST PACE Attend[facility] [place] [facility] [address] [place] [phone] 06/08/2025 9:00 AM EST PACE Att[facility] [place] [facility] [address] [place] [phone] 06/10/2025 9:00 AM EST PACE Att[facility] [place] [facility] [address] [place] [phone] 06/15/2025 9:00 AM EST PACE Attend[facility] [place] [facility] [address] [place] [phone] 06/17/2025 9:00 AM EST PACE Attend[facility] [place] [facility] [address] [place] [phone] 06/22/2025 9:00 AM EST PACE Att[facility] [place] [facility] [address] [place] [address] 06/24/2025 9:00 AM EST PACE Attend[facility] [place] [facility] [address] [place] [address] 06/29/2025 9:00 AM EST PACE Attend[facility] [place] [facility] [address] [place] [address] 07/01/2025 9:00 AM EST PACE Attendance/[facility] [place] [facility] [address] [place] [phone] 07/06/2025 9:00 AM EST PACE Attendance/[facility] [place] [facility] [address] [place] [phone] 2025 9:00 AM EST PACE Attend[facility] [place] [facility] [address] [place] [phone] 07/13/2025 9:00 AM EST PACE Att[facility] [place] [facility] [address] [place] [phone] 07/15/2025 9:00 AM EST PACE Att[facility] [place] [facility] [address] [place] [phone] 07/20/2025 9:00 AM EST PACE [facility] [place] [facility] [address] [place] [address] 07/22/2025 9:00 AM EST PACE Attend[facility] [place] [facility] [address] [place] [address] 07/27/2025 9:00 AM EST PACE Attend[facility] [place] [facility] [address] [place] [address] 07/29/2025 9:00 AM EST PACE Attendance/Day Center [employer] [place] [employer] [place] [address] [place] [address] 08/03/2025 9:00 AM EST PACE Attendance/Day [facility] [place] [employer] [address] [address] documented as of this encounter Visit Diagnoses Not on filedocumented in this encounter Care Teams Operations And Intelligence Assistant Relationship Specialty Start Date End Date Dede Pimentel NP [address] [place] [phone] PCP - General Family Medicine 05/02/24 documented as of this encounter
--- OUTSIDE RECORDS SUMMARY | 2024-10-17 12:46 | XMS_ITS | Encounter Summary ---
Author Organization [facility] Address [address] [place] [address] Care Team Providers Care Youtuber Name Role Phone Eleazar Gleason MD Primary Care Provider [phone] Encounter Details Date Type Department Care Team [...] appetite for lunch. Aware of 30minute post medical attendant observation period for first infusion. 1300 - Observation period completed - patient with no issues noted - IV flushed and removed intact - patient has next appt in place. Stable upon discharge - [facility] transport van here for ride home. documented in this encounter Plan of Treatment Upcoming Encounters Date Type Department Care Team (Late st Contact Info) Description 10/18/2024 7:30 AM EDT PACE Home Care / [facility] [address] [place] [phone] Jhoana Grijalva 10/19/2024 7:30 AM EDT PACE Home Care / P[facility] Home [facility] [address] [place] [phone] Jhoana Grijalva 10/20/2024 7:30 AM EDT PACE Home Care / P[facility] Home Visit [facility] [address] [place] [address] Cheryle Pryor 10/20/2024 9:00 AM EDT P[facility] Attendance[facility] [address] [place] [address] 10/20/2024 9:00 AM EDT Consult [facility] [address] [place] [phone] 10/21/2024 7:30 AM EDT PACE Home Care / PACE Home Visit [facility] [address] [place] [address] Cheryle Pryor 10/21/2024 9:00 AM EDT Consult [facility] [place] [address] [place] [address] 10/21/2024 10:30 AM EDT PACE Home Care / PACE Home Visit [facility] [address] [place] [phone] Cheryle Pryor 10/22/2024 7:30 AM EDT PACE Home Care / PACE Home Visit [facility] [address] [place] [phone] Shawna Lebron 10/22/2024 9:00 AM EDT PACE Attend[facility] [address] [place] [phone] 10/22/2024 9:00 AM EDT Consult [facility] [place] [address] [place] [address] 10/23/2024 7:30 AM EDT PACE Home Care / PACE Home Visit [facility] [address] [place] [address] Cheryle Pryor 10/23/2024 9:00 AM EDT Consult [facility] [place] [address] [place] [address] 10/24/2024 7:30 AM EDT PACE Home Care / [facility] [address] [place] [phone] Shawna Lebron 10/24/2024 9:00 AM EDT Consult [facility] [place] [address] [place] [address] 10/25/2024 7:30 AM EDT PACE Home Care / [facility] [address] [place] [address] Cheryle Pryor 10/26/2024 7:15 AM EDT PACE Home Care / P[facility] Home [facility] [address] [place] [phone] Cheryle Pryor 10/27/2024 7:30 AM EDT PACE Home Care / PACE Home Visit [facility] [address] [place] [phone] Cheryle Pryor 10/27/2024 9:00 AM EDT PACE Attendance[facility] [place] [facility] [address] [place] [address] 10/28/2024 7:30 AM EDT PACE Home Care / PACE Home Visit [facility] [address] [place] [phone] Cheryle Pryor 10/28/2024 10:30 AM EDT PACE Home Care / PACE Home Visit [facility] [address] [place] [phone] Cheryle Pryor 10/29/2024 7:30 AM EDT PACE Home Care / PACE Home Visit [facility] [address] [place] [phone] Shawna Lebron 10/29/2024 9:00 AM EDT [facility] Attend[facility] [address] [place] [address] 10/30/2024 7:30 AM EDT PACE Home Care / [facility] [address] [place] [phone] Cheryle Pryor 10/31/2024 7:30 AM EDT PACE Home Care / [facility] [address] [place] [phone] Shawna Lebron 10/31/2024 10:30 AM EDT PACE Home Care / [facility] [address] [place] [address] Jhoana Grijalva 11/01/2024 7:30 AM EDT PACE Home Care / [facility] [address] [place] [phone] Jhoana Grijalva 11/02/2024 7:30 AM EDT PACE Home Care / [facility] [address] [place] [address] Jhoana Grijalva 11/03/2024 7:30 AM EDT PACE Home Care / [facility] Visit [facility] [address] [place] [phone] Cheryle Pryor 11/03/2024 9:00 AM EDT [facility] [place] [facility] [address] [place] [phone] 11/04/2024 7:30 AM EDT PACE Home Care / [facility] [address] [place] [phone] Cheryle Pryor 11/04/2024 10:30 AM EDT PACE Home Care / [facility] Home Visit [facility] [address] [place] [phone] Cheryle Pryor 11/05/2024 7:30 AM EDT PACE Home Care / [facility] [address] [place] [phone] Shawna Lebron 11/05/2024 9:00 AM EDT [facility] [place] [facility] [address] [place] [address] 11/06/2024 7:30 AM EDT PACE Home Care / [facility] [address] [place] [address] Cheryle Pryor 11/06/2024 10:00 AM EDT Clinical Support [facility] [place] [address] [place] [address] 11/07/2024 7:30 AM EDT PACE Home Care / PACE Home Visit [facility] [address] [place] [phone] Shawna Lebron 11/07/2024 10:30 AM EDT PACE Home Care / PACE Home Visit [facility] [address] [place] [phone] Jhoana Grijalva 11/08/2024 7:30 AM EDT PACE Home Care / PACE Home Visit [facility] [address] [place] [address] Cheryle Pryor 11/09/2024 7:30 AM EDT PACE Home Care / PACE Home Visit [facility] [address] [place] [phone] Cheryle Pryor 11/10/2024 7:30 AM EDT PACE Home Care / PACE Home Visit [facility] [address] [place] [phone] Cheryle Pryor 11/10/2024 9:00 AM EDT P[facility] Att[facility] [place] [facility] [address] [place] [address] 11/10/2024 9:45 AM EDT Office Visit [facility] [address] [address] Gemini Simmons MD [address] [address] 11/11/2024 7:30 AM EDT PACE Home Care / [facility] [address] [place] [address] Cheryle Pryor 11/11/2024 10:30 AM EDT PACE Home Care / PACE Home Visit [facility] [address] [place] [phone] Cheryle Pryor 11/12/2024 7:30 AM EDT PACE Home Care / PACE Home Visit [facility] [address] [place] [phone] Shawna Lebron 11/12/2024 9:00 AM EDT P[facility] Att[facility] [place] [facility] [address] [place] [phone] 11/13/2024 7:30 AM EDT PACE Home Care / PACE Home Visit [facility] [address] [place] [phone] Cheryle Pryor 11/14/2024 7:30 AM EDT PACE Home Care / PACE Home Visit [facility] [address] [place] [phone] Shawna Lebron 11/14/2024 10:30 AM EDT PACE Home Care / PACE Home Visit [facility] [address] [place] [phone] Jhoana Grijalva 11/15/2024 7:30 AM EDT PACE Home Care / [facility] [address] [place] [phone] Jhoana Grijalva 11/16/2024 7:30 AM EDT PACE Home Care / [facility] [address] [place] [phone] Jhoana Grijalva 11/17/2024 7:30 AM EDT PACE Home Care / [facility] Visit [facility] [address] [place] [phone] Cheryle Pryor 11/17/2024 9:00 AM EDT P[facility] Attend[facility] [place] [facility] [address] [place] [address] 11/18/2024 7:30 AM EDT PACE Home Care / [facility] [address] [place] [phone] Cheryle Pryor 11/18/2024 10:30 AM EDT PACE Home Care / PACE Home Visit [facility] [address] [place] [phone] Cheryle Pryor 11/19/2024 7:30 AM EDT PACE Home Care / [facility] [address] [place] [phone] Shawna Lebron 11/19/2024 9:00 AM EDT P[facility] Attend[facility] [place] [facility] [address] [place] [address] 11/20/2024 7:30 AM EDT PACE Home Care / [facility] [address] [place] [phone] Cheryle Pryor 11/21/2024 7:30 AM EDT PACE Home Care / [facility] [address] [place] [phone] Shawna Lebron 11/21/2024 10:30 AM EDT PACE Home Care / [facility] [address] [place] [phone] Jhoana Grijalva 11/22/2024 7:30 AM EDT PACE Home Care / [facility] [address] [place] [address] Cheryle Pryor 11/23/2024 7:30 AM EDT PACE Home Care / PACE Home Visit [facility] [address] [place] [address] Cheryle Pryor 11/24/2024 7:30 AM EDT PACE Home Care / PACE Home Visit [facility] [address] [place] [address] Cheryle Pryor 11/24/2024 9:00 AM EDT P[facility] Attend[facility] [place] [facility] [address] [place] [address] 11/25/2024 7:30 AM EDT PACE Home Care / PACE Home Visit [facility] [address] [place] [phone] Cheryle Pryor 11/25/2024 10:30 AM EDT PACE Home Care / PACE Home Visit [facility] [address] [place] [phone] Cheryle Pryor 11/26/2024 7:30 AM EDT PACE Home Care / PACE Home Visit [facility] [address] [place] [phone] Shawna Lebron 11/26/2024 9:00 AM EDT [facility] Att[facility] [place] [facility] [address] [place] [address] 11/27/2024 7:30 AM EDT PACE Home Care / PACE Home Visit [facility] [address] [place] [address] Cheryle Pryor 11/28/2024 7:30 AM EDT PACE Home Care / [facility] [address] [place] [address] Shawna Lebron 11/28/2024 10:30 AM EDT PACE Home Care / [facility] Visit [facility] [address] [place] [phone] Jhoana Grijalva 11/29/2024 7:30 AM EDT PACE Home Care / [facility] [address] [place] [phone] Jhoana Grijalva 11/30/2024 7:30 AM EDT PACE Home Care / PACE Home Visit [facility] [address] [place] [phone] Jhoana Grijalva 12/01/2024 7:30 AM EDT PACE Home Care / [facility] [address] [place] [address] Cheryle Pryor 12/01/2024 9:00 AM EDT [facility] [place] [facility] [address] [place] [address] 12/02/2024 7:30 AM EDT PACE Home Care / [facility] [address] [place] [phone] Cheryle Pryor 12/03/2024 7:30 AM EDT PACE Home Care / [facility] [address] [place] [phone] Shawna Lebron 12/03/2024 9:00 AM EDT [facility] [place] [facility] [address] [place] [address] 12/04/2024 7:30 AM EDT PACE Home Care / [facility] [address] [place] [address] Cheryle Pryor 12/05/2024 7:30 AM EDT PACE Home Care / [facility] [address] [place] [address] Shawna Lebron 12/05/2024 10:30 AM EDT PACE Home Care / [facility] [address] [place] [address] Jhoana Grijalva 12/06/2024 7:30 AM EDT PACE Home Care / [facility] [address] [place] [address] Cheryle Pryor 12/07/2024 7:30 AM EDT PACE Home Care / [facility] [address] [place] [address] Cheryle Pryor 12/08/2024 9:00 AM EDT [facility] [place] [facility] [address] [place] [address] 12/10/2024 9:00 AM EDT [facility] [place] [facility] [address] [place] [address] 12/15/2024 9:00 AM EDT [facility] [place] [facility] [address] [place] [address] 12/17/2024 9:00 AM EDT [facility] Att[facility] [place] [facility] [address] [place] [address] 12/22/2024 9:00 AM EDT [facility] Att[facility] [place] [facility] [address] [place] [address] 12/24/2024 9:00 AM EDT [facility] Att[facility] [place] [facility] [address] [place] [address] 12/29/2024 9:00 AM EDT P[facility] Attend[facility] [place] [facility] [address] [place] [address] 12/31/2024 9:00 AM EDT P[facility] Attend[facility] [address] [place] [address] 01/05/2025 9:00 AM EDT P[facility] Attend[facility] [address] [place] [address] 01/07/2025 9:00 AM EDT P[facility] Attend[facility] [place] [facility] [address] [place] [address] 01/12/2025 9:00 AM EDT P[facility] Att[facility] [place] [facility] [address] [place] [address] 01/14/2025 9:00 AM EDT P[facility] Attend[facility] [address] [place] [address] 01/19/2025 9:00 AM EDT P[facility] Attend[facility] [address] [place] [address] 01/21/2025 9:00 AM EDT P[facility] Attend[facility] [address] [place] [address] 01/26/2025 9:00 AM EDT P[facility] Att[facility] [place] [facility] [address] [place] [address] 01/28/2025 9:00 AM EDT P[facility] Att[facility] [place] [facility] [address] [place] [address] 02/02/2025 9:00 AM EDT P[facility] [place] [facility] [address] [place] [address] 02/04/2025 9:00 AM EDT P[facility] [place] [facility] [address] [place] [address] 02/09/2025 9:00 AM EDT [facility] [place] [facility] [address] [place] [address] 02/11/2025 9:00 AM EDT P[facility] [place] [facility] [address] [place] [address] 02/16/2025 9:00 AM EDT [facility] [address] [place] [address] 02/18/2025 9:00 AM EDT [facility] Att[facility] [address] [place] [address] 02/23/2025 9:00 AM EDT [facility] [address] [place] [address] 02/25/2025 9:00 AM EDT [facility] [place] [facility] [address] [place] [address] 03/02/2025 9:00 AM EDT P[facility] Att[facility] [place] [facility] [address] [place] [address] 03/04/2025 9:00 AM EDT P[facility] [place] [facility] [address] [place] [address] 03/09/2025 9:00 AM EDT P[facility] Att[facility] [place] [facility] [address] [place] [address] 03/11/2025 9:00 AM EDT P[facility] [address] [place] [address] 03/16/2025 9:00 AM EDT P[facility] Attend[facility] [address] [place] [address] 03/18/2025 9:00 AM EDT P[facility] Attend[facility] [place] [facility] [address] [place] [address] 03/23/2025 9:00 AM EDT P[facility] Attend[facility] [place] [facility] [address] [place] [address] 03/25/2025 9:00 AM EDT P[facility] Attend[facility] [place] [facility] [address] [place] [address] 03/30/2025 9:00 AM EDT P[facility] Attend[facility] [address] [place] [address] 04/01/2025 9:00 AM EDT P[facility] Attend[facility] [address] [place] [address] 04/06/2025 9:00 AM EDT P[facility] Attend[facility] [address] [place] [address] 04/08/2025 9:00 AM EDT P[facility] Attend[facility] [address] [place] [address] 04/13/2025 9:00 AM EDT P[facility] [place] [facility] [address] [place] [address] 04/15/2025 9:00 AM EDT P[facility] [place] [facility] [address] [place] [address] 04/20/2025 9:00 AM EDT [facility] [place] [facility] [address] [place] [address] 04/22/2025 9:00 AM EDT [facility] Att[facility] [place] [facility] [address] [place] [address] 04/27/2025 9:00 AM EST [facility] Attend[facility] [place] [facility] [address] [place] [address] 04/29/2025 9:00 AM EST [facility] Att[facility] [place] [facility] [address] [place] [address] 05/04/2025 9:00 AM EST [facility] Att[facility] [place] [facility] [address] [place] [address] 05/06/2025 9:00 AM EST [facility] [address] [place] [address] 05/11/2025 9:00 AM EST [facility] [place] [facility] [address] [place] [address] 05/13/2025 9:00 AM EST [facility] [place] [facility] [address] [place] [address] 05/18/2025 9:00 AM EST [facility] [address] [place] [address] 05/20/2025 9:00 AM EST [facility] [place] [facility] [address] [place] [address] 05/25/2025 9:00 AM EST [facility] [address] [place] [address] 05/27/2025 9:00 AM EST [facility] [address] [place] [address] 06/01/2025 9:00 AM EST [facility] [address] [place] [address] 06/03/2025 9:00 AM EST [facility] Att[facility] [place] [facility] [address] [place] [address] 06/08/2025 9:00 AM EST [facility] Att[facility] [place] [facility] [address] [place] [address] 06/10/2025 9:00 AM EST [facility] Att[facility] [place] [facility] [address] [place] [address] 06/15/2025 9:00 AM EST [facility] [place] [facility] [address] [place] [address] 06/17/2025 9:00 AM EST [facility] [place] [facility] [address] [place] [address] 06/22/2025 9:00 AM EST [facility] [place] [facility] [address] [place] [address] 06/24/2025 9:00 AM EST [facility] [place] [facility] [address] [place] [address] 06/29/2025 9:00 AM EST [facility] [place] [facility] [address] [place] [address] 07/01/2025 9:00 AM EST P[facility] Att[facility] [place] [facility] [address] [place] [address] 07/06/2025 9:00 AM EST [facility] Att[facility] [place] [facility] [address] [place] [address] 2025 9:00 AM EST P[facility] Att[facility] [place] [facility] [address] [place] [address] 07/13/2025 9:00 AM EST P[facility] Att[facility] [place] [facility] [address] [place] [address] 07/15/2025 9:00 AM EST P[facility] Att[facility] [place] [facility] [address] [place] [address] 07/20/2025 9:00 AM EST P[facility] [place] [facility] [address] [place] [address] 07/22/2025 9:00 AM EST P[facility] Att[facility] [place] [facility] [address] [place] [address] 07/27/2025 9:00 AM EST [facility] [place] [facility] [address] [address] 07/29/2025 9:00 AM EST P[facility] Att[facility] [place] [facility] [address] [place] [address] 08/03/2025 9:00 AM EST [facility] [place] [facility] [address] [place] [address] documented as of this encounter Procedures Procedure Name Priority Date/Time Associated Diagnosis Comments ..MISCELLANEOUS REFERENCE LAB TEST 04/14/2024 documented in this encounter Results * Miscellaneous reference lab test (04/14/2024) us Provider Onbase MD LAB BLOOD ORDERABLES Final Re sult documented in this encounter Visit Diagnoses Diagnosis Iron deficiency anemia, unspecified documented in this encounter Care Teams Youtuber Relationship Specialty Start Date End Date Eleazar Gleason MD [address] [address] PCP - General 04/11/24 05/01/24 documented as of this encounter
--- OUTSIDE RECORDS SUMMARY | 2024-10-17 12:46 | XMS_ITS | Encounter Summary ---
Author Organization [facility] Address [address] [place] [address] Care Team Providers Care Roll Examiner Name Role Phone Dede Pimentel EVP SALES Primary Care Provider [phone] Encounter Details Date Type Department Care Team (Late st Contact Info) Description 10/16/2024 7:30 AM EDT PACE Home Care / P[facility] [address] [place] [phone] Cheryle Pryor Social History Tobacco Use Types [...] [place] [facility] [address] [place] [phone] Jhoana Grijavla 10/19/2024 7:30 AM EDT PACE Home Care / [facility] [address] [place] [phone] Jhoana Grijalva 10/20/2024 7:30 AM EDT PACE Home Care / [facility] [address] [place] [phone] Cheryle Pryor 10/20/2024 9:00 AM EDT [facility] Att[facility] [facility] [place] [facility] [address] [place] [phone] 10/20/2024 9:00 AM EDT Consult [facility] [place] [address] [place] [phone] 10/21/2024 7:30 AM EDT PACE Home Care / [facility] [address] [place] [phone] Cheryle Pryor 10/21/2024 9:00 AM EDT Consult [facility] [place] [address] [place] [phone] 10/21/2024 10:30 AM EDT PACE Home Care / [facility] [address] [place] [phone] Cheryle Pryor 10/22/2024 7:30 AM EDT PACE Home Care / [facility] Visit [facility] [address] [place] [phone] Shawna Lebron 10/22/2024 9:00 AM EDT P[facility] Att[facility] [facility] [place] [facility] [address] [place] [phone] 10/22/2024 9:00 AM EDT Consult [facility] [place] [address] [place] [phone] 10/23/2024 7:30 AM EDT PACE Home Care / [facility] [address] [place] [phone] Cheryle Pryor 10/23/2024 9:00 AM EDT Consult [facility] [place] [address] [place] [phone] 10/24/2024 7:30 AM EDT PACE Home Care / [facility] [address] [place] [phone] Shawna Lebron 10/24/2024 9:00 AM EDT Consult [facility] [place] [address] [place] [phone] 10/25/2024 7:30 AM EDT PACE Home Care / [facility] [address] [place] [phone] Cheryle Pryor 10/26/2024 7:15 AM EDT PACE Home Care / [facility] [address] [place] [phone] Cheryle Pryor 10/27/2024 7:30 AM EDT PACE Home Care / [facility] [address] [place] [phone] Cheryle Pryor 10/27/2024 9:00 AM EDT [facility] [place] [facility] [address] [place] [address] 10/28/2024 7:30 AM EDT PACE Home Care / [facility] [place] [facility] [address] [place] [phone] Cheryle Pryor 10/28/2024 10:30 AM EDT PACE Home Care / [facility] [place] [facility] [address] [place] [address] Cheryle Pryor 10/29/2024 7:30 AM EDT PACE Home Care / PACE Home Visit [facility] [place] [facility] [address] [place] [address] Shawna Lebron 10/29/2024 9:00 AM EDT PACE Attendance[facility] [place] [facility] [address] [place] [address] 10/30/2024 7:30 AM EDT PACE Home Care / PACE Home Visit [facility] [place] [facility] [address] [place] [phone] Cheryle Pryor 10/31/2024 7:30 AM EDT PACE Home Care / P[facility] Home Visit [facility] [place] [facility] [address] [place] [phone] Shawna Lebron 10/31/2024 10:30 AM EDT PACE Home Care / P[facility] Home Visit [facility] [place] [facility] [address] [place] [phone] Jhoana Grijalva 11/01/2024 7:30 AM EDT PACE Home Care / P[facility] Home Visit [facility] [place] [facility] [address] [place] [phone] Jhoana Grijalva 11/02/2024 7:30 AM EDT PACE Home Care / PACE Home Visit [facility] [place] [facility] [address] [place] [phone] Jhoana Grijalva 11/03/2024 7:30 AM EDT PACE Home Care / [facility] [address] [place] [phone] Cheryle Pryor 11/03/2024 9:00 AM EDT PACE Attendance[facility] [place] [facility] [address] [place] [address] 11/04/2024 7:30 AM EDT PACE Home Care / PACE Home Visit [facility] [place] [facility] [address] [place] [address] Cheryle Pryor 11/04/2024 10:30 AM EDT PACE Home Care / PACE Home Visit [facility] [place] [facility] [address] [place] [phone] Cheryle Pryor 11/05/2024 7:30 AM EDT PACE Home Care / PACE Home Visit [facility] [place] [facility] [address] [place] [phone] Shawna Lebron 11/05/2024 9:00 AM EDT P[facility] Attend[facility] [place] [facility] [address] [place] [phone] 11/06/2024 7:30 AM EDT PACE Home Care / PACE Home Visit [facility] [place] [facility] [address] [place] [phone] Cheryle Pryor 11/06/2024 10:00 AM EDT Clinical Support [facility] [place] [address] [place] [phone] 11/07/2024 7:30 AM EDT PACE Home Care / PACE Home Visit [facility] [place] [facility] [address] [place] [phone] Shawna Lebron 11/07/2024 10:30 AM EDT PACE Home Care / PACE Home Visit [facility] [place] [facility] [address] [place] [phone] Jhoana Grijalva 11/08/2024 7:30 AM EDT PACE Home Care / PACE Home Visit [facility] [place] [facility] [address] [place] [phone] Cheryle Pryor 11/09/2024 7:30 AM EDT PACE Home Care / [facility] [address] [place] [phone] Cheryle Pryor 11/10/2024 7:30 AM EDT PACE Home Care / [facility] [place] [facility] [address] [place] [phone] Cheryle Pryor 11/10/2024 9:00 AM EDT [facility] [place] [facility] [address] [place] [phone] 11/10/2024 9:45 AM EDT Office Visit [facility] [address] [place] [phone] Gemini Simmons MD [address] Boyd [address] [place] [address] 11/11/2024 7:30 AM EDT PACE Home Care / [facility] [address] [place] [phone] Cheryle Pryor 11/11/2024 10:30 AM EDT PACE Home Care / [facility] [place] [facility] [address] [place] [phone] Cheryle Pryor 11/12/2024 7:30 AM EDT PACE Home Care / [facility] Visit [facility] [place] [facility] [address] [place] [phone] Shawna Lebron 11/12/2024 9:00 AM EDT P[place] Attend[place] [facility] [place] [facility] [address] [place] [address] 11/13/2024 7:30 AM EDT PACE Home Care / [facility] Home Visit [facility] [place] [facility] [address] [place] [phone] Cheryle Pryor 11/14/2024 7:30 AM EDT PACE Home Care / [facility] Visit [facility] [address] [place] [phone] Shawna Lebron 11/14/2024 10:30 AM EDT PACE Home Care / [facility] [place] [facility] [address] [place] [phone] Jhoana Grijalva 11/15/2024 7:30 AM EDT PACE Home Care / [facility] Visit [facility] [place] [facility] [address] [place] [phone] Jhoana Grijalva 11/16/2024 7:30 AM EDT PACE Home Care / [facility] [place] [facility] [address] [place] [phone] Jhoana Grijalva 11/17/2024 7:30 AM EDT PACE Home Care / [facility] [address] [place] [phone] Cheryle Pryor 11/17/2024 9:00 AM EDT P[facility] [place] [facility] [address] [place] [phone] 11/18/2024 7:30 AM EDT PACE Home Care / [facility] Visit [facility] [address] [place] [phone] Cheryel Pryor 11/18/2024 10:30 AM EDT PACE Home Care / [facility] [place] [facility] [address] [place] [phone] Cheryle Pryor 11/19/2024 7:30 AM EDT PACE Home Care / [facility] [place] [facility] [address] [place] [phone] Shawna Lebron 11/19/2024 9:00 AM EDT [facility] [facility] [place] [facility] [address] [place] [phone] 11/20/2024 7:30 AM EDT PACE Home Care / [facility] [place] [facility] [address] [place] [phone] Cheryle Pryor 11/21/2024 7:30 AM EDT PACE Home Care / [facility] [address] [place] [phone] Shawna Lebron 11/21/2024 10:30 AM EDT PACE Home Care / [facility] [place] [facility] [address] [place] [phone] Jhoana Grijalva 11/22/2024 7:30 AM EDT PACE Home Care / [facility] Visit [facility] [place] [facility] [address] [place] [phone] Cheryle Pryor 11/23/2024 7:30 AM EDT PACE Home Care / [facility] [place] [facility] [address] [place] [phone] Cheryle Pryor 11/24/2024 7:30 AM EDT PACE Home Care / [facility] [address] [place] [phone] Cheryle Pryor 11/24/2024 9:00 AM EDT [facility] [facility] [facility] [place] [facility] [address] [place] [phone] 11/25/2024 7:30 AM EDT PACE Home Care / [facility] [address] [place] [phone] Cheryle Pryor 11/25/2024 10:30 AM EDT PACE Home Care / [facility] Visit [facility] [address] [place] [phone] Cheryle Pryor 11/26/2024 7:30 AM EDT PACE Home Care / [facility] [place] [facility] [address] [place] [phone] Shawna Lebron 11/26/2024 9:00 AM EDT PACE Attendance/[facility] [place] [facility] [address] [place] [phone] 11/27/2024 7:30 AM EDT PACE Home Care / [facility] [address] [place] [phone] Cheryle Pryor 11/28/2024 7:30 AM EDT PACE Home Care / [facility] [address] [place] [phone] Shawna Lebron 11/28/2024 10:30 AM EDT PACE Home Care / [facility] Visit [facility] [place] [facility] [address] [place] [phone] Jhoana Grijalva 11/29/2024 7:30 AM EDT PACE Home Care / [facility] Visit [facility] [place] [facility] [address] [place] [phone] Jhoana Grijalva 11/30/2024 7:30 AM EDT PACE Home Care / [facility] Visit [facility] [place] [facility] [address] [place] [phone] Jhoana Grijalva 12/01/2024 7:30 AM EDT PACE Home Care / [facility] [address] [place] [phone] Cheryle Pryor 12/01/2024 9:00 AM EDT P[facility] [place] [facility] [address] [place] [phone] 12/02/2024 7:30 AM EDT PACE Home Care / [facility] [address] [place] [phone] Cheryle Pryor 12/03/2024 7:30 AM EDT PACE Home Care / [facility] [address] [place] [phone] Shawna Lebron 12/03/2024 9:00 AM EDT PACE Attendance[facility] [place] [facility] [address] [place] [phone] 12/04/2024 7:30 AM EDT PACE Home Care / [facility] [address] [place] [phone] Cheryle Pryor 12/05/2024 7:30 AM EDT PACE Home Care / PACE Home Visit [facility] [address] [place] [phone] Shawna Lebron 12/05/2024 10:30 AM EDT PACE Home Care / [facility] [address] [place] [phone] Jhoana Grijalva 12/06/2024 7:30 AM EDT PACE Home Care / [facility] [address] [place] [phone] Cheryle Pryor 12/07/2024 7:30 AM EDT PACE Home Care / [facility] [place] [facility] [address] [place] [phone] Cheryle Gordon 12/08/2024 9:00 AM EDT P[facility] Att[facility] [place] [facility] [address] [place] [address] 12/10/2024 9:00 AM EDT P[facility] Att[facility] [place] [facility] [address] [place] [address] 12/15/2024 9:00 AM EDT P[facility] Att[facility] [place] [facility] [address] [place] [address] 12/17/2024 9:00 AM EDT [facility] [place] [facility] [address] [place] [phone] 12/22/2024 9:00 AM EDT P[facility] Att[facility] [place] [facility] [address] [place] [phone] 12/24/2024 9:00 AM EDT P[facility] Att[facility] [place] [facility] [address] [place] [phone] 12/29/2024 9:00 AM EDT P[facility] [place] [facility] [address] [place] [phone] 12/31/2024 9:00 AM EDT P[facility] [place] [facility] [address] [place] [phone] 01/05/2025 9:00 AM EDT P[facility] Att[facility] [place] [facility] [address] [place] [address] 01/07/2025 9:00 AM EDT PACE Attend[facility] [place] [facility] [address] [place] [address] 01/12/2025 9:00 AM EDT P[facility] Att[facility] [place] [facility] [address] [place] [phone] 01/14/2025 9:00 AM EDT PACE Attendance[facility] [place] [facility] [address] [place] [address] 01/19/2025 9:00 AM EDT PACE Attendance[facility] [place] [facility] [address] [place] [address] 01/21/2025 9:00 AM EDT PACE Attendance[facility] [place] [facility] [address] [place] [address] 01/26/2025 9:00 AM EDT PACE Attendance[facility] [place] [facility] [address] [place] [phone] 01/28/2025 9:00 AM EDT PACE Attend[facility] [place] [facility] [address] [place] [phone] 02/02/2025 9:00 AM EDT PACE Attendance[facility] [place] [facility] [address] [place] [phone] 02/04/2025 9:00 AM EDT PACE Attendance[facility] [place] [facility] [address] [place] [phone] 02/09/2025 9:00 AM EDT PACE Attendance[facility] [place] [facility] [address] [place] [phone] 02/11/2025 9:00 AM EDT PACE Attendance[facility] [place] [facility] [address] [place] [address] 02/16/2025 9:00 AM EDT P[facility] [place] [facility] [address] [place] [address] 02/18/2025 9:00 AM EDT P[facility] [place] [facility] [address] [place] [phone] 02/23/2025 9:00 AM EDT P[facility] Att[facility] [place] [facility] [address] [place] [address] 02/25/2025 9:00 AM EDT P[facility] Att[facility] [place] [facility] [address] [place] [address] 03/02/2025 9:00 AM EDT PACE Attendance[facility] [place] [facility] [address] [place] [address] 03/04/2025 9:00 AM EDT PACE Attendance[facility] [place] [facility] [address] [place] [address] 03/09/2025 9:00 AM EDT PACE Attendance[facility] [place] [facility] [address] [place] [address] 03/11/2025 9:00 AM EDT PACE Attend[facility] [place] [facility] [address] [place] [phone] 03/16/2025 9:00 AM EDT PACE Attendance[facility] [place] [facility] [address] [place] [phone] 03/18/2025 9:00 AM EDT P[facility] [place] [facility] [address] [place] [phone] 03/23/2025 9:00 AM EDT P[facility] Att[facility] [place] [facility] [address] [place] [address] 03/25/2025 9:00 AM EDT P[facility] Att[facility] [place] [facility] [address] [place] [address] 03/30/2025 9:00 AM EDT P[facility] [place] [facility] [address] [place] [phone] 04/01/2025 9:00 AM EDT P[facility] Att[facility] [place] [facility] [address] [place] [address] 04/06/2025 9:00 AM EDT P[facility] Att[facility] [place] [facility] [address] [place] [address] 04/08/2025 9:00 AM EDT P[facility] Att[facility] [place] [facility] [address] [place] [address] 04/13/2025 9:00 AM EDT P[facility] [place] [facility] [address] [place] [phone] 04/15/2025 9:00 AM EDT P[facility] Att[facility] [place] [facility] [address] [place] [address] 04/20/2025 9:00 AM EDT P[facility] [place] [facility] [address] [place] [address] 04/22/2025 9:00 AM EDT P[facility] [place] [facility] [address] [place] [phone] 04/27/2025 9:00 AM EST P[facility] [place] [facility] [address] [place] [phone] 04/29/2025 9:00 AM EST PACE Attend[facility] [place] [facility] [address] [place] [address] 05/04/2025 9:00 AM EST P[facility] [place] [facility] [address] [place] [phone] 05/06/2025 9:00 AM EST P[facility] [place] [facility] [address] [place] [phone] 05/11/2025 9:00 AM EST P[facility] [place] [facility] [address] [place] [address] 05/13/2025 9:00 AM EST P[facility] [place] [facility] [address] [place] [address] 05/18/2025 9:00 AM EST P[facility] [place] [facility] [address] [place] [phone] 05/20/2025 9:00 AM EST P[facility] [place] [facility] [address] [place] [phone] 05/25/2025 9:00 AM EST P[facility] [place] [facility] [address] [place] [phone] 05/27/2025 9:00 AM EST [facility] [place] [facility] [address] [place] [phone] 06/01/2025 9:00 AM EST PACE Att[facility] [place] [facility] [address] [place] [phone] 06/03/2025 9:00 AM EST P[facility] [place] [facility] [address] [place] [phone] 06/08/2025 9:00 AM EST PACE [facility] [place] [facility] [address] [place] [phone] 06/10/2025 9:00 AM EST PACE [facility] [place] [facility] [address] [place] [phone] 06/15/2025 9:00 AM EST PACE Att[facility] [place] [facility] [address] [place] [phone] 06/17/2025 9:00 AM EST PACE Att[facility] [place] [facility] [address] [place] [phone] 06/22/2025 9:00 AM EST PACE Attend[facility] [place] [facility] [address] [place] [address] 06/24/2025 9:00 AM EST PACE Att[facility] [place] [facility] [address] [place] [address] 06/29/2025 9:00 AM EST PACE Att[facility] [place] [facility] [address] [place] [address] 07/01/2025 9:00 AM EST PACE [facility] [place] [facility] [address] [place] [phone] 07/06/2025 9:00 AM EST PACE [facility] [place] [facility] [address] [place] [phone] 2025 9:00 AM EST PACE Attend[facility] [place] [facility] [address] [place] [phone] 07/13/2025 9:00 AM EST PACE [facility] [place] [facility] [address] [place] [phone] 07/15/2025 9:00 AM EST PACE [facility] [place] [facility] [address] [place] [phone] 07/20/2025 9:00 AM EST PACE Att[facility] [place] [facility] [address] [place] [address] 07/22/2025 9:00 AM EST PACE Att[facility] [place] [facility] [address] [place] [address] 07/27/2025 9:00 AM EST PACE Attend[facility] [place] [facility] [address] [place] [address] 07/29/2025 9:00 AM EST PACE Attendance/Day Center [employer] [facility] [employer] [facility] [place] [address] [place] [address] 08/03/2025 9:00 AM EST PACE Attendance/[facility] [employer] [address] [address] documented as of this encounter Visit Diagnoses Not on filedocumented in this encounter Care Teams Roll Examiner Relationship Specialty Start Date End Date Dede Pimentel NP [address] [place] [address] PCP - General Family Medicine 05/02/24 documented as of this encounter
--- OUTSIDE RECORDS SUMMARY | 2024-10-17 12:46 | XMS_ITS | Encounter Summary ---
Author Organization [facility] Address [address] [place] [address] Care Team Providers Care Welder Tech Name Role Phone Dede Pimentel NP Primary Care Provider [phone] Reason for Referral * Consultation (Routine) - Authorized Specialty Diagnoses / Procedures Referred By Genesis gomez Referred To Contact Acute Care Hospital Diagnoses Fall, initial encounter Dede Pimentel NP [address] [place] [address] Phone: tel: fax: Referral ID Status Reason Start Date Expiration Date Visits Requested Visits Authorized [id number] Authorized Consult and Treat 10/16/2024 10/16/2025 1 1 Encounter Details Date Type Department Care Team (Late st Contact Info) Description 10/16/[address] [facility] [address] [place] [address] Dede Pimentel NP [address] [address] Fall, initial encounter (Primary Dx) Social History [...] EDT Par reported fall and is at [facility] ED awaiting work up. recreation manager has this handbook writer's cell phone to provide updates as they arise. documented in this encounter Plan of Treatment Upcoming Encounters Date Type Department Care Team (Late st Contact Info) Description 10/18/2024 7:30 AM EDT PACE Home Care / [facility] [address] [place] [phone] Jhoana Grijalva 10/19/2024 7:30 AM EDT PACE Home Care / P[facility] [address] [place] [phone] Jhoana Grijalva 10/20/2024 7:30 AM EDT PACE Home Care / P[facility] [address] [place] [phone] Cheryle Pryor 10/20/2024 9:00 AM EDT PACE Attendance/[facility] [address] [place] [phone] 10/20/2024 9:00 AM EDT Consult [facility] [address] [place] [phone] 10/21/2024 7:30 AM EDT PACE Home Care / [facility] [address] [place] [address] Chreyle Pryor 10/21/2024 9:00 AM EDT Consult [facility] [address] [place] [address] 10/21/2024 10:30 AM EDT PACE Home Care / [facility] [address] [place] [phone] Cheryle Pryor 10/22/2024 7:30 AM EDT PACE Home Care / P[facility] [address] [place] [phone] Shawna Lebron 10/22/2024 9:00 AM EDT [facility] [place] [facility] [address] [place] [phone] 10/22/2024 9:00 AM EDT Consult [facility] [address] [place] [address] 10/23/2024 7:30 AM EDT PACE Home Care / [facility] [address] [place] [phone] Cheryle Pryor 10/23/2024 9:00 AM EDT Consult [facility] [address] [place] [phone] 10/24/2024 7:30 AM EDT PACE Home Care / [facility] [address] [place] [phone] Shawna Lebron 10/24/2024 9:00 AM EDT Consult [facility] [address] [place] [phone] 10/25/2024 7:30 AM EDT PACE Home Care / [facility] [address] [place] [phone] Cheryle Pryor 10/26/2024 7:15 AM EDT PACE Home Care / [facility] [address] [place] [phone] Cheryle Pryor 10/27/2024 7:30 AM EDT PACE Home Care / P[facility] [address] [place] [phone] Cheryle Pryor 10/27/2024 9:00 AM EDT PACE Attend[facility] [place] [facility] [address] [place] [phone] 10/28/2024 7:30 AM EDT PACE Home Care / P[facility] [address] [place] [phone] Cheryle Pryor 10/28/2024 10:30 AM EDT PACE Home Care / [facility] [address] [place] [phone] Cheryle Pryor 10/29/2024 7:30 AM EDT PACE Home Care / P[facility] [address] [place] [phone] Shawna Lebron 10/29/2024 9:00 AM EDT PACE Attend[facility] [place] [facility] [address] [place] [phone] 10/30/2024 7:30 AM EDT PACE Home Care / [facility] [address] [place] [phone] Cheryle Pryor 10/31/2024 7:30 AM EDT PACE Home Care / P[facility] [address] [place] [phone] Shawna Lebron 10/31/2024 10:30 AM EDT PACE Home Care / [facility] [address] [place] [phone] Jhoana Grijalva 11/01/2024 7:30 AM EDT PACE Home Care / [facility] [place] [facility] [address] [place] [phone] Jhoana Grijalva 11/02/2024 7:30 AM EDT PACE Home Care / [facility] [address] [place] [phone] Jhoana Grijalva 11/03/2024 7:30 AM EDT PACE Home Care / [facility] [address] [place] [phone] Cheryle Pryor 11/03/2024 9:00 AM EDT [facility] [facility] [place] [facility] [address] [place] [phone] 11/04/2024 7:30 AM EDT PACE Home Care / [facility] [place] [facility] [address] [place] [phone] Cheryle Pryor 11/04/2024 10:30 AM EDT PACE Home Care / [facility] [place] [facility] [address] [place] [phone] Cheryle Pryor 11/05/2024 7:30 AM EDT PACE Home Care / [facility] [place] [facility] [address] [place] [phone] Shawna Lebron 11/05/2024 9:00 AM EDT [facility] [place] [facility] [address] [place] [phone] 11/06/2024 7:30 AM EDT PACE Home Care / P[facility] [address] [place] [phone] Cheryle Pryor 11/06/2024 10:00 AM EDT Clinical Support [facility] [address] [place] [address] 11/07/2024 7:30 AM EDT PACE Home Care / P[facility] [address] [place] [phone] Shawna Lebron 11/07/2024 10:30 AM EDT PACE Home Care / P[facility] Visit [facility] [address] [place] [phone] Jhoana Grijalva 11/08/2024 7:30 AM EDT PACE Home Care / P[facility] [address] [place] [phone] Cheryle Pryor 11/09/2024 7:30 AM EDT PACE Home Care / P[facility] [address] [place] [phone] Cheryle Pryor 11/10/2024 7:30 AM EDT PACE Home Care / P[facility] [address] [place] [phone] Cheryle Pryor 11/10/2024 9:00 AM EDT PACE Attendance[facility] [place] [facility] [address] [place] [phone] 11/10/2024 9:45 AM EDT Office Visit [address] [address] Gemini Simmons MD [address] [address] 11/11/2024 7:30 AM EDT PACE Home Care / P[facility] [address] [place] [phone] Cheryle Pryor 11/11/2024 10:30 AM EDT PACE Home Care / P[facility] [address] [place] [phone] Cheryle Pryor 11/12/2024 7:30 AM EDT PACE Home Care / [facility] [address] [place] [phone] Shawna Lebron 11/12/2024 9:00 AM EDT PACE Attendance[facility] [place] [facility] [address] [place] [phone] 11/13/2024 7:30 AM EDT PACE Home Care / PACE [facility] Visit [facility] [address] [place] [phone] Cheryle Pryor 11/14/2024 7:30 AM EDT PACE Home Care / P[facility] [address] [place] [phone] Shawna Lebron 11/14/2024 10:30 AM EDT PACE Home Care / [facility] [address] [place] [phone] Jhoana Grijalva 11/15/2024 7:30 AM EDT PACE Home Care / [facility] [address] [place] [phone] Jhoana Grijalva 11/16/2024 7:30 AM EDT PACE Home Care / [facility] [address] [place] [phone] Jhoana Grijalva 11/17/2024 7:30 AM EDT PACE Home Care / [facility] [address] [place] [phone] Cheryle Pryor 11/17/2024 9:00 AM EDT [facility] [place] [facility] [address] [place] [phone] 11/18/2024 7:30 AM EDT PACE Home Care / [facility] [address] [place] [phone] Cheryle Pryor 11/18/2024 10:30 AM EDT PACE Home Care / [facility] [address] [place] [phone] Cheryle Pryor 11/19/2024 7:30 AM EDT PACE Home Care / [facility] [address] [place] [phone] Shawna Lebron 11/19/2024 9:00 AM EDT [facility] [place] [facility] [address] [place] [phone] 11/20/2024 7:30 AM EDT PACE Home Care / [facility] [address] [place] [phone] Cheryle Pryor 11/21/2024 7:30 AM EDT PACE Home Care / [facility] [address] [place] [phone] Shawna Lebron 11/21/2024 10:30 AM EDT PACE Home Care / [facility] [address] [place] [phone] Jhoana Grijalva 11/22/2024 7:30 AM EDT PACE Home Care / [facility] [address] [place] [address] Cheryle Pryor 11/23/2024 7:30 AM EDT PACE Home Care / P[facility] [address] [place] [phone] Cheryle Pryor 11/24/2024 7:30 AM EDT PACE Home Care / P[facility] Visit [facility] [address] [place] [phone] Cheryle Pryor 11/24/2024 9:00 AM EDT P[facility] Attendance[facility] [place] [facility] [address] [place] [phone] 11/25/2024 7:30 AM EDT PACE Home Care / PACE [facility] [address] [place] [phone] Cheryle Pryor 11/25/2024 10:30 AM EDT PACE Home Care / PACE [facility] Visit [facility] [address] [place] [phone] Cheryle Pryor 11/26/2024 7:30 AM EDT PACE Home Care / PACE [facility] [address] [place] [phone] Shawna Lebron 11/26/2024 9:00 AM EDT [facility] [place] [facility] [address] [place] [phone] 11/27/2024 7:30 AM EDT PACE Home Care / [facility] [address] [place] [phone] Cheryle Pryor 11/28/2024 7:30 AM EDT PACE Home Care / [facility] [address] [place] [address] Shawna Lebron 11/28/2024 10:30 AM EDT PACE Home Care / [facility] [address] [place] [address] Jhoana Grijalva 11/29/2024 7:30 AM EDT PACE Home Care / [facility] [address] [place] [address] Jhoana Grijalva 11/30/2024 7:30 AM EDT PACE Home Care / [facility] [address] [place] [address] Jhoana Grijalva 12/01/2024 7:30 AM EDT PACE Home Care / [facility] [address] [place] [address] Cheryle Pryor 12/01/2024 9:00 AM EDT [facility] [place] [facility] [address] [place] [address] 12/02/2024 7:30 AM EDT PACE Home Care / [facility] [address] [place] [phone] Cheryle Pryor 12/03/2024 7:30 AM EDT PACE Home Care / [facility] [address] [place] [phone] Shawna Lebron 12/03/2024 9:00 AM EDT [facility] [place] [facility] [address] [place] [address] 12/04/2024 7:30 AM EDT PACE Home Care / [facility] [address] [place] [address] Cheryle Pryor 12/05/2024 7:30 AM EDT PACE Home Care / P[facility] [address] [place] [address] Shawna Lebron 12/05/2024 10:30 AM EDT PACE Home Care / P[facility] [address] [place] [phone] Jhoana Grijalva 12/06/2024 7:30 AM EDT PACE Home Care / P[facility] [address] [place] [address] Cheryle Pryor 12/07/2024 7:30 AM EDT PACE Home Care / P[facility] [address] [place] [phone] Cheryle Pryor 12/08/2024 9:00 AM EDT [facility] [place] [facility] [address] [place] [address] 12/10/2024 9:00 AM EDT P[facility] [place] [facility] [address] [place] [phone] 12/15/2024 9:00 AM EDT [facility] [place] [facility] [address] [place] [address] 12/17/2024 9:00 AM EDT [facility] [place] [facility] [address] [place] [address] 12/22/2024 9:00 AM EDT [facility] [place] [facility] [address] [place] [address] 12/24/2024 9:00 AM EDT [facility] [place] [facility] [address] [place] [address] 12/29/2024 9:00 AM EDT [facility] [place] [facility] [address] [place] [address] 12/31/2024 9:00 AM EDT [facility] [place] [facility] [address] [place] [address] 01/05/2025 9:00 AM EDT [facility] [place] [facility] [address] [place] [address] 01/07/2025 9:00 AM EDT [facility] [place] [facility] [address] [place] [address] 01/12/2025 9:00 AM EDT P[facility] [place] [facility] [address] [place] [address] 01/14/2025 9:00 AM EDT P[facility] [place] [facility] [address] [place] [address] 01/19/2025 9:00 AM EDT [facility] [place] [facility] [address] [place] [address] 01/21/2025 9:00 AM EDT P[facility] [place] [facility] [address] [place] [address] 01/26/2025 9:00 AM EDT P[facility] [place] [facility] [address] [place] [address] 01/28/2025 9:00 AM EDT P[facility] [place] [facility] [address] [place] [address] 02/02/2025 9:00 AM EDT P[facility] [place] [facility] [address] [place] [address] 02/04/2025 9:00 AM EDT P[facility] [place] [facility] [address] [place] [address] 02/09/2025 9:00 AM EDT P[facility] [place] [facility] [address] [place] [address] 02/11/2025 9:00 AM EDT P[facility] [place] [facility] [address] [place] [address] 02/16/2025 9:00 AM EDT P[facility] Attend[facility] [place] [facility] [address] [place] [address] 02/18/2025 9:00 AM EDT P[facility] Attend[facility] [place] [facility] [address] [place] [address] 02/23/2025 9:00 AM EDT P[facility] [place] [facility] [address] [place] [address] 02/25/2025 9:00 AM EDT P[facility] [place] [facility] [address] [place] [address] 03/02/2025 9:00 AM EDT [facility] [place] [facility] [address] [place] [address] 03/04/2025 9:00 AM EDT P[facility] [place] [facility] [address] [place] [address] 03/09/2025 9:00 AM EDT [facility] [place] [facility] [address] [place] [address] 03/11/2025 9:00 AM EDT [facility] [place] [facility] [address] [place] [address] 03/16/2025 9:00 AM EDT P[facility] [place] [facility] [address] [place] [address] 03/18/2025 9:00 AM EDT P[facility]end[facility] [place] [facility] [address] [place] [address] 03/23/2025 9:00 AM EDT P[facility] Attend[facility] [place] [facility] [address] [place] [address] 03/25/2025 9:00 AM EDT P[facility] [place] [facility] [address] [place] [address] 03/30/2025 9:00 AM EDT P[facility]end[facility] [place] [facility] [address] [place] [address] 04/01/2025 9:00 AM EDT P[facility] Attend[facility] [place] [facility] [address] [place] [address] 04/06/2025 9:00 AM EDT P[facility] [place] [facility] [address] [place] [address] 04/08/2025 9:00 AM EDT P[facility]end[facility] [place] [facility] [address] [place] [address] 04/13/2025 9:00 AM EDT P[facility] [place] [facility] [address] [place] [address] 04/15/2025 9:00 AM EDT P[facility] Attend[facility] [place] [facility] [address] [place] [address] 04/20/2025 9:00 AM EDT PACE Attendance/[facility] [place] [facility] [address] [place] [address] 04/22/2025 9:00 AM EDT P[facility] [place] [facility] [address] [place] [address] 04/27/2025 9:00 AM EST [facility] [place] [facility] [address] [place] [address] 04/29/2025 9:00 AM EST [facility] [place] [facility] [address] [place] [address] 05/04/2025 9:00 AM EST P[facility] [place] [facility] [address] [place] [address] 05/06/2025 9:00 AM EST [facility] [place] [facility] [address] [place] [address] 05/11/2025 9:00 AM EST [facility] [place] [facility] [address] [place] [address] 05/13/2025 9:00 AM EST [facility] [place] [facility] [address] [place] [address] 05/18/2025 9:00 AM EST P[facility] [place] [facility] [address] [place] [address] 05/20/2025 9:00 AM EST [facility] [place] [facility] [address] [place] [address] 05/25/2025 9:00 AM EST [facility] [place] [facility] [address] [place] [address] 05/27/2025 9:00 AM EST [facility] [place] [facility] [address] [place] [address] 06/01/2025 9:00 AM EST [facility] [place] [facility] [address] [place] [address] 06/03/2025 9:00 AM EST [facility] [place] [facility] [address] [place] [address] 06/08/2025 9:00 AM EST [facility] [place] [facility] [address] [place] [address] 06/10/2025 9:00 AM EST [facility] [place] [facility] [address] [place] [address] 06/15/2025 9:00 AM EST [facility] [place] [facility] [address] [place] [address] 06/17/2025 9:00 AM EST [facility] [place] [facility] [address] [place] [address] 06/22/2025 9:00 AM EST [facility] [place] [facility] [address] [place] [address] 06/24/2025 9:00 AM EST [facility] [place] [facility] [address] [place] [address] 06/29/2025 9:00 AM EST [facility] [place] [facility] [address] [place] [address] 07/01/2025 9:00 AM EST [facility] [place] [facility] [address] [place] [address] 07/06/2025 9:00 AM EST P[facility] [place] [facility] [address] [place] [address] 2025 9:00 AM EST [facility] [place] [facility] [address] [place] [address] 07/13/2025 9:00 AM EST P[facility] [place] [facility] [address] [place] [address] 07/15/2025 9:00 AM EST P[facility] [place] [facility] [address] [place] [address] 07/20/2025 9:00 AM EST P[facility] [place] [facility] [address] [place] [address] 07/22/2025 9:00 AM EST P[facility] [place] [facility] [address] [place] [address] 07/27/2025 9:00 AM EST P[facility] [place] [facility] [address] [place] [address] 07/29/2025 9:00 AM EST P[facility] [place] [facility] [address] [place] [address] 08/03/2025 9:00 AM EST [facility] [place] [facility] [address] [place] [phone] Scheduled Referrals Name Type Priority Associated Diagnoses Orde r Schedule PACE Admisssion Outpatient Referral Routine Fall, initial encounter Ordered: 10/16/2024 documented as of this encounter Visit Diagnoses Diagnosis Fall, initial encounter- Primary documented in this encounter Care Teams Welder Tech Relationship Specialty Start Date End Date Dede Pimentel NP [address] [place] [id number] PCP - General Family Medicine 05/02/24 documented as of this encounter
--- OUTSIDE RECORDS SUMMARY | 2024-10-17 12:46 | XMS_ITS | Encounter Summary ---
Author Organization [facility] Address [address] [place] [address] Care Team Providers Care State Comptroller Name Role Phone Dede Pimentel SENIOR CONTRACTS MANAGER Primary Care Provider [phone] Encounter Details Date Type Department Care Team (Late st Contact Info) Description 07/23/2024 Lab Requisition [facility] - Main Lab [address] [place] [address] Elvira Damon MD [address] [facility] [address] [place] [address] Hematuria, unspecified Social History Tobacco [...] Department Care Team (Late Contact Info) Description 10/18/2024 7:30 AM EDT PACE Home Care / [facility] [facility] [place] [facility] [address] [place] [address] Jhoana Grijalva 10/19/2024 7:30 AM EDT PACE Home Care / [place] [place] [facility] [place] [facility] [address] [place] [phone] Jhoana Grijalva 10/20/2024 7:30 AM EDT PACE Home Care / [place] [facility] [place] [facility] [place] [facility] [address] [place] [phone] Cheryle Pryor 10/20/2024 9:00 AM EDT [facility] [facility] [place] [facility] [address] [place] [phone] 10/20/2024 9:00 AM EDT Consult [facility] [place] [address] [place] [phone] 10/21/2024 7:30 AM EDT PACE Home Care / [facility] [facility] [place] [facility] [place] [facility] [address] [place] [phone] Cheryle Pryor 10/21/2024 9:00 AM EDT Consult [facility] [place] [address] [place] [phone] 10/21/2024 10:30 AM EDT PACE Home Care / [facility] [place] [facility] [place] [facility] [address] [place] [phone] Cheryle Pryor 10/22/2024 7:30 AM EDT PACE Home Care / [place] [facility] [place] [facility] [address] [place] [phone] Shawna Lebron 10/22/2024 9:00 AM EDT [facility] [facility] [place] [facility] [address] [place] [phone] 10/22/2024 9:00 AM EDT Consult [facility] [place] [address] [place] [phone] 10/23/2024 7:30 AM EDT PACE Home Care / [facility] [address] [place] [phone] Cheryle Pryor 10/23/2024 9:00 AM EDT Consult [facility] [place] [address] [place] [phone] 10/24/2024 7:30 AM EDT PACE Home Care / [facility] [place] [facility] [address] [place] [phone] Shawna Lebron 10/24/2024 9:00 AM EDT Consult [facility] [place] [address] [place] [phone] 10/25/2024 7:30 AM EDT PACE Home Care / [facility] [place] [facility] [address] [place] [phone] Cheryle Pryor 10/26/2024 7:15 AM EDT PACE Home Care / [facility] [place] [facility] [address] [place] [phone] Cheryle Pryor 10/27/2024 7:30 AM EDT PACE Home Care / [facility] [place] [facility] [address] [place] [phone] Cheryle Pryor 10/27/2024 9:00 AM EDT P[facility] [facility] [place] [facility] [address] [place] [phone] 10/28/2024 7:30 AM EDT PACE Home Care / [facility] [place] [facility] [address] [place] [phone] Cheryle Pryor 10/28/2024 10:30 AM EDT PACE Home Care / [facility] [place] [facility] [address] [place] [address] Cheryle Pryor 10/29/2024 7:30 AM EDT PACE Home Care / [facility] [place] [facility] [address] [place] [phone] Shawna Lebron 10/29/2024 9:00 AM EDT [facility] [place] [facility] [address] [place] [phone] 10/30/2024 7:30 AM EDT PACE Home Care / [facility] [address] [place] [phone] Cheryle Pryor 10/31/2024 7:30 AM EDT PACE Home Care / [facility] [address] [place] [phone] Shawna Lebron 10/31/2024 10:30 AM EDT PACE Home Care / [facility] [place] [facility] [address] [place] [phone] Jhoana Grijalva 11/01/2024 7:30 AM EDT PACE Home Care / [facility] [place] [facility] [address] [place] [phone] Jhoana Grijalva 11/02/2024 7:30 AM EDT PACE Home Care / [place] [facility] [place] [facility] [address] [place] [phone] Jhoana Grijalva 11/03/2024 7:30 AM EDT PACE Home Care / [place] [facility] [place] [facility] [address] [place] [phone] Cheryle Pryor 11/03/2024 9:00 AM EDT [facility] [place] [facility] [address] [place] [address] 11/04/2024 7:30 AM EDT PACE Home Care / [facility] [place] [facility] [address] [place] [phone] Cheryle Pryor 11/04/2024 10:30 AM EDT PACE Home Care / [facility] [place] [facility] [address] [place] [phone] Cheryle Pryor 11/05/2024 7:30 AM EDT PACE Home Care / [facility] [facility] [place] [facility] [address] [place] [phone] Shawna Lebron 11/05/2024 9:00 AM EDT [facility] [facility] [place] [facility] [address] [place] [phone] 11/06/2024 7:30 AM EDT PACE Home Care / [facility] [address] [place] [phone] Cheryle Pryor 11/06/2024 10:00 AM EDT Clinical Support [facility] [address] [place] [phone] 11/07/2024 7:30 AM EDT PACE Home Care / [facility] [place] [facility] [address] [place] [phone] Shawna Lebron 11/07/2024 10:30 AM EDT PACE Home Care / [facility] [place] [facility] [address] [place] [phone] Jhoana Grijalva 11/08/2024 7:30 AM EDT PACE Home Care / [facility] [place] [facility] [address] [place] [phone] Cheryle Pryor 11/09/2024 7:30 AM EDT PACE Home Care / [facility] [address] [place] [phone] Cheryle Pryor 11/10/2024 7:30 AM EDT PACE Home Care / [facility] [address] [place] [phone] Cheryle Pryor 11/10/2024 9:00 AM EDT [facility] [place] [facility] [address] [place] [phone] 11/10/2024 9:45 AM EDT Office Visit [facility] [address] [place] [phone] Gemini Simmons MD [address] [facility] [address] [place] [phone] 11/11/2024 7:30 AM EDT PACE Home Care / [facility] [address] [place] [phone] Cheryle Pryor 11/11/2024 10:30 AM EDT PACE Home Care / [facility] [address] [place] [phone] Cheryle Pryor 11/12/2024 7:30 AM EDT PACE Home Care / [facility] [place] [facility] [address] [place] [phone] Shawna Lebron 11/12/2024 9:00 AM EDT [facility] [facility] [place] [facility] [address] [place] [address] 11/13/2024 7:30 AM EDT PACE Home Care / [facility] [place] [facility] [address] [place] [phone] Cheryle Pryor 11/14/2024 7:30 AM EDT PACE Home Care / [facility] [place] [facility] [address] [place] [phone] Shawna Lebron 11/14/2024 10:30 AM EDT PACE Home Care / [facility] [place] [facility] [address] [place] [phone] Jhoana Grijalva 11/15/2024 7:30 AM EDT PACE Home Care / [facility] [address] [place] [phone] Jhoana Grijalva 11/16/2024 7:30 AM EDT PACE Home Care / [facility] [address] [place] [phone] Jhoana Grijalva 11/17/2024 7:30 AM EDT PACE Home Care / [facility] [place] [facility] [address] [place] [phone] Cheryle Pryor 11/17/2024 9:00 AM EDT [facility] [facility] [place] [facility] [address] [place] [phone] 11/18/2024 7:30 AM EDT PACE Home Care / [facility] [address] [place] [phone] Cheryle Pryor 11/18/2024 10:30 AM EDT PACE Home Care / [facility] [place] [facility] [address] [place] [phone] Cheryle Pryor 11/19/2024 7:30 AM EDT PACE Home Care / [place] [facility] [place] [facility] [address] [place] [address] Shawna Lebron 11/19/2024 9:00 AM EDT [facility] [place] [facility] [address] [place] [address] 11/20/2024 7:30 AM EDT PACE Home Care / [facility] [address] [place] [address] Cheryle Pryor 11/21/2024 7:30 AM EDT PACE Home Care / [facility] [place] [facility] [address] [place] [phone] Shawna Lebron 11/21/2024 10:30 AM EDT PACE Home Care / [facility] [place] [facility] [address] [place] [phone] Jhoana Grijalva 11/22/2024 7:30 AM EDT PACE Home Care / [facility] [address] [place] [phone] Cheryle Pryor 11/23/2024 7:30 AM EDT PACE Home Care / [facility] [place] [facility] [address] [place] [phone] Cheryle Pryor 11/24/2024 7:30 AM EDT PACE Home Care / [facility] [address] [place] [phone] Cheryle Pryor 11/24/2024 9:00 AM EDT PACE [facility] [facility] [place] [facility] [address] [place] [address] 11/25/2024 7:30 AM EDT PACE Home Care / [facility] [address] [place] [address] Cheryle Pryor 11/25/2024 10:30 AM EDT PACE Home Care / [facility] [address] [place] [address] Cheryle Pryor 11/26/2024 7:30 AM EDT PACE Home Care / [facility] [address] [place] [address] Shawna Lebron 11/26/2024 9:00 AM EDT [facility] [place] [facility] [address] [place] [phone] 11/27/2024 7:30 AM EDT PACE Home Care / [facility] [facility] [address] [place] [phone] Cheryle Pryor 11/28/2024 7:30 AM EDT PACE Home Care / [facility] [address] [place] [phone] Shawna Lebron 11/28/2024 10:30 AM EDT PACE Home Care / [facility] [facility] [place] [facility] [address] [place] [phone] Jhoana Grijalva 11/29/2024 7:30 AM EDT PACE Home Care / [facility] [facility] [place] [facility] [address] [place] [phone] Jhoana Grijalva 11/30/2024 7:30 AM EDT PACE Home Care / [place] [facility] [place] [facility] [place] [facility] [address] [place] [phone] Jhoana Grijalva 12/01/2024 7:30 AM EDT PACE Home Care / [facility] [facility] [place] [facility] [address] [place] [phone] Cheryle Pryor 12/01/2024 9:00 AM EDT [facility] [facility] [place] [facility] [address] [place] [phone] 12/02/2024 7:30 AM EDT PACE Home Care / [place] [facility] [address] [place] [phone] Cheryle Pryor 12/03/2024 7:30 AM EDT PACE Home Care / [place] [facility] [address] [place] [phone] Shawna Lebron 12/03/2024 9:00 AM EDT P[place] Attendance[place] [facility] [place] [facility] [address] [place] [phone] 12/04/2024 7:30 AM EDT PACE Home Care / [place] [facility] [address] [place] [phone] Cheryle Pryor 12/05/2024 7:30 AM EDT PACE Home Care / [place] [facility] [address] [place] [phone] Shawna Lebron 12/05/2024 10:30 AM EDT PACE Home Care / [place] [facility] [address] [place] [phone] Jhoana Grijalva 12/06/2024 7:30 AM EDT PACE Home Care / [place] [facility] [address] [place] [phone] Cheryle Pryor 12/07/2024 7:30 AM EDT PACE Home Care / [place] [facility] [place] [facility] [address] [place] [phone] Cheryle Pryor 12/08/2024 9:00 AM EDT P[facility] Attendance[facility] [facility] [place] [facility] [address] [place] [phone] 12/10/2024 9:00 AM EDT [facility] [place] [facility] [address] [place] [phone] 12/15/2024 9:00 AM EDT P[facility] [place] [facility] [address] [place] [phone] 12/17/2024 9:00 AM EDT P[facility] [place] [facility] [address] [place] [phone] 12/22/2024 9:00 AM EDT P[facility] [place] [facility] [address] [place] [phone] 12/24/2024 9:00 AM EDT P[facility] Attend[facility] [place] [facility] [address] [place] [phone] 12/29/2024 9:00 AM EDT P[facility] [place] [facility] [address] [place] [phone] 12/31/2024 9:00 AM EDT P[place] Att[facility] [facility] [place] [facility] [address] [place] [phone] 01/05/2025 9:00 AM EDT P[place] Attend[facility] [facility] [place] [facility] [address] [place] [phone] 01/07/2025 9:00 AM EDT P[place] Attend[place] [place] [facility] [address] [place] [phone] 01/12/2025 9:00 AM EDT P[place] Att[facility] [facility] [place] [facility] [address] [place] [phone] 01/14/2025 9:00 AM EDT P[place] Att[facility] [facility] [place] [facility] [address] [place] [phone] 01/19/2025 9:00 AM EDT P[place] Att[facility] [facility] [place] [facility] [address] [place] [phone] 01/21/2025 9:00 AM EDT P[place] Att[facility] [facility] [place] [facility] [address] [place] [phone] 01/26/2025 9:00 AM EDT P[place] Attend[facility] [place] [facility] [address] [place] [phone] 01/28/2025 9:00 AM EDT P[place] Att[facility] [facility] [place] [facility] [address] [place] [phone] 02/02/2025 9:00 AM EDT P[place] Att[place] [facility] [place] [facility] [address] [place] [phone] 02/04/2025 9:00 AM EDT P[place] Att[place] [facility] [place] [facility] [address] [place] [phone] 02/09/2025 9:00 AM EDT P[place] Att[facility] [facility] [place] [facility] [address] [place] [phone] 02/11/2025 9:00 AM EDT P[place] Attend[place] [facility] [place] [facility] [address] [place] [phone] 02/16/2025 9:00 AM EDT P[place] Attend[place] [facility] [place] [facility] [address] [place] [phone] 02/18/2025 9:00 AM EDT P[place] Att[place] [facility] [place] [facility] [address] [place] [phone] 02/23/2025 9:00 AM EDT P[facility] [place] [facility] [address] [place] [address] 02/25/2025 9:00 AM EDT P[facility] [place] [facility] [address] [place] [address] 03/02/2025 9:00 AM EDT P[facility] [place] [facility] [address] [place] [address] 03/04/2025 9:00 AM EDT P[facility] [place] [facility] [address] [place] [phone] 03/09/2025 9:00 AM EDT P[facility] [place] [facility] [address] [place] [phone] 03/11/2025 9:00 AM EDT P[facility] [place] [facility] [address] [place] [phone] 03/16/2025 9:00 AM EDT P[place] Att[facility] [place] [facility] [address] [place] [phone] 03/18/2025 9:00 AM EDT P[place] Att[facility] [facility] [place] [facility] [address] [place] [phone] 03/23/2025 9:00 AM EDT P[place] Attend[place] [facility] [place] [facility] [address] [place] [address] 03/25/2025 9:00 AM EDT P[place] Attend[place] [facility] [place] [facility] [address] [place] [address] 03/30/2025 9:00 AM EDT P[place] Att[facility] [facility] [place] [facility] [address] [place] [phone] 04/01/2025 9:00 AM EDT P[facility] Attend[facility] [place] [facility] [address] [place] [address] 04/06/2025 9:00 AM EDT P[facility] Att[facility] [place] [facility] [address] [place] [address] 04/08/2025 9:00 AM EDT P[facility] [place] [facility] [address] [place] [address] 04/13/2025 9:00 AM EDT P[facility] Att[facility] [place] [facility] [address] [place] [address] 04/15/2025 9:00 AM EDT P[facility] [place] [facility] [address] [place] [phone] 04/20/2025 9:00 AM EDT P[facility] [place] [facility] [address] [place] [phone] 04/22/2025 9:00 AM EDT P[facility] Att[facility] [place] [facility] [address] [place] [phone] 04/27/2025 9:00 AM EST [facility]ACE Attend[facility] [place] [facility] [address] [place] [phone] 04/29/2025 9:00 AM EST [facility] [place] [facility] [address] [place] [address] 05/04/2025 9:00 AM EST [facility] [place] [facility] [address] [place] [address] 05/06/2025 9:00 AM EST [facility] [place] [facility] [address] [place] [address] 05/11/2025 9:00 AM EST P[facility] Attend[facility] [place] [facility] [address] [place] [address] 05/13/2025 9:00 AM EST P[facility] Att[facility] [facility] [place] [facility] [address] [place] [address] 05/18/2025 9:00 AM EST P[facility] [facility] [place] [facility] [address] [place] [address] 05/20/2025 9:00 AM EST [facility] [place] [facility] [address] [place] [address] 05/25/2025 9:00 AM EST [facility] [place] [facility] [address] [place] [address] 05/27/2025 9:00 AM EST [facility] [place] [facility] [address] [place] [address] 06/01/2025 9:00 AM EST [facility] [place] [facility] [address] [place] [phone] 06/03/2025 9:00 AM EST [facility] [place] [facility] [address] [place] [phone] 06/08/2025 9:00 AM EST P[facility] Att[facility] [facility] [place] [facility] [address] [place] [address] 06/10/2025 9:00 AM EST P[facility] [facility] [place] [facility] [address] [place] [phone] 06/15/2025 9:00 AM EST P[facility] [facility] [place] [facility] [address] [place] [address] 06/17/2025 9:00 AM EST [facility] [place] [facility] [place] [facility] [address] [place] [phone] 06/22/2025 9:00 AM EST [facility] [place] [facility] [address] [place] [address] 06/24/2025 9:00 AM EST [facility] [place] [facility] [address] [place] [phone] 06/29/2025 9:00 AM EST [facility] [place] [facility] [address] [place] [phone] 07/01/2025 9:00 AM EST [facility] [place] [facility] [address] [place] [phone] 07/06/2025 9:00 AM EST PACE [facility]end[facility] [place] [facility] [address] [place] [phone] 2025 9:00 AM EST PACE [facility] [place] [facility] [address] [place] [phone] 07/13/2025 9:00 AM EST [facility] [place] [facility] [address] [place] [address] 07/15/2025 9:00 AM EST [facility] [place] [facility] [address] [place] [phone] 07/20/2025 9:00 AM EST [facility] [place] [facility] [place] [facility] [address] [place] [phone] 07/22/2025 9:00 AM EST [facility] [place] [facility] [place] [facility] [address] [place] [phone] 07/27/2025 9:00 AM EST [facility] [place] [facility] [place] [facility] [address] [place] [phone] 07/29/2025 9:00 AM EST PACE [facility] [address] [place] [address] 08/03/2025 9:00 AM EST PACE [facility]end[facility] [address] [place] [address] documented as of this encounter Procedures Procedure [...] scant material received may not be fully termite control service representative of the endometrium. Clinical correlation is recommended. 07/24/2024 11:07 AM [facility] Clinical Information Hematuria (? PMB) 07/24/2024 11:07 AM [facility] Gross Description A. Endometrium, biopsy: Labeled with the patient's name and information. Received in formalin is an approximately 0.2 x 0.1 x 0.1 cm aggregate of soft to mucoid, white tissue fragments, which is wrapped in paper and submitted in toto in one cassette, multiple pieces, x2. Please note: Small tissue fragments may not survive processing. dvb/JAYLEEN 07/24/2024 11:07 AM [facility] Disclaimer Unless otherwise specified, all tissue is 10% NB formalin fixed and paraffin embedded. 07/24/2024 11:07 AM [facility] Tissue Endometrial structure / Unknown 07/22/2024 07/23/2024 7:03 AM EST Elvira Damon MD LAB PATHOLOGY ORDERABLES Final Result [facility] [address] [place] [address], documented in this encounter Visit Diagnoses Diagnosis Hematuria, unspecified documented in this encounter Care Teams State Comptroller Relationship Specialty Start Date End Date Dede Pimentel NP [address] [place] [id number] PCP - General Family Medicine 05/02/24 documented as of this encounter
--- OUTSIDE RECORDS SUMMARY | 2024-10-17 12:47 | XMS_ITS | Clinical Summary ---
Author Organization [facility] Address [address] [place] [address] Care Team Providers Care Rose Grading Supervisor Name Role Phone Eleazar Gleason MD Primary Care Provider [phone] Allergies Active Allergy Reactions Criticality Noted Date [...] age to complete this topic Care Teams Rose Grading Supervisor Relationship Specialty Start Date End Date Eleazar Gleason MD PCP - General Rheumatology 04/11/24
--- OUTSIDE RECORDS SUMMARY | 2024-10-17 12:47 | XMS_ITS | Encounter Summary ---
Author Organization [facility] Address [address] [place] [address] Care Team Providers Care Cleaner And Dyer Name Role Phone Dede Pimentel FLAP CURER Primary Care Provider [phone] Encounter Details Date Type Department Care Team (Late st Contact Info) Description 07/04/2024 Lab Requisition [facility] - Main Lab [address] [place] [address] Dede Pimentel NP [address] [facility] [address] [place], [place] [id number] Encounter for general adult medical examination without [...] In [facility] [address] [place] [address] Jhoana Grijalva 10/19/2024 7:30 AM EDT PACE Home Care / P[facility] Home Visit [facility] [place] [facility] [address] [place] [address] Jhoana Grijalva 10/20/2024 7:30 AM EDT PACE Home Care / [facility] Home Visit [facility] [place] [facility] [address] [place] [phone] Cheryle Pryor 10/20/2024 9:00 AM EDT P[place] Attendance/[place] [facility] [place] [facility] [address] [place] [address] 10/20/2024 9:00 AM EDT Consult [facility] [place] [address] [place] [address] 10/21/2024 7:30 AM EDT PACE Home Care / [place] Home Visit [facility] [place] [facility] [address] [place] [phone] Cheryle Pryor 10/21/2024 9:00 AM EDT Consult [facility] [place] [address] [place] [phone] 10/21/2024 10:30 AM EDT PACE Home Care / [place] Home Visit [facility] [place] [facility] [address] [place] [phone] Cheryle Pryor 10/22/2024 7:30 AM EDT PACE Home Care / [facility] Home Visit [facility] [place] [facility] [address] [place] [phone] Shawna Lebron 10/22/2024 9:00 AM EDT PACE Attendance/[place] [facility] [place] [facility] [address] [place] [address] 10/22/2024 9:00 AM EDT Consult [facility] [place] [address] [place] [address] 10/23/2024 7:30 AM EDT PACE Home Care / [facility] Home Visit [facility] [place] [facility] [address] [place] [phone] Cheryle Pryor 10/23/2024 9:00 AM EDT Consult [facility] [place] [address] [place] [address] 10/24/2024 7:30 AM EDT PACE Home Care / PACE Home Visit [facility] [place] [facility] [address] [place] [phone] Shawna Lebron 10/24/2024 9:00 AM EDT Consult [facility] [place] [address] [place] [phone] 10/25/2024 7:30 AM EDT PACE Home Care / P[facility] [place] [facility] [address] [place] [phone] Cheryle Pryor 10/26/2024 7:15 AM EDT PACE Home Care / P[facility] [place] [facility] [address] [place] [phone] Cheryle Pryor 10/27/2024 7:30 AM EDT PACE Home Care / P[facility] Home Visit [facility] [place] [facility] [address] [place] [phone] Cheryle Pryor 10/27/2024 9:00 AM EDT PACE Attendance[facility] [facility] [place] [facility] [address] [place] [address] 10/28/2024 7:30 AM EDT PACE Home Care / P[place] Home Visit [facility] [place] [facility] [address] [place] [address] Cheryle Pryor 10/28/2024 10:30 AM EDT PACE Home Care / P[facility] [place] [facility] [address] [place] [address] Cheryle Pryor 10/29/2024 7:30 AM EDT PACE Home Care / P[facility] Home [facility] [place] [facility] [address] [place] [address] Shawna Lebron 10/29/2024 9:00 AM EDT PACE Attendance[facility] [place] [facility] [address] [place] [phone] 10/30/2024 7:30 AM EDT PACE Home Care / [facility] [facility] Visit [facility] [place] [facility] [address] [place] [phone] Cheryle Pryor 10/31/2024 7:30 AM EDT PACE Home Care / P[facility] [place] [facility] [address] [place] [phone] Shawna Lebron 10/31/2024 10:30 AM EDT PACE Home Care / [facility] Visit [facility] [place] [facility] [address] [place] [phone] Jhoana Grijalva 11/01/2024 7:30 AM EDT PACE Home Care / [place] Home Visit [facility] [place] [facility] [address] [place] [phone] Jhoana Grijalva 11/02/2024 7:30 AM EDT PACE Home Care / [facility] [facility] Visit [facility] [place] [facility] [address] [place] [phone] Jhoana Grijalva 11/03/2024 7:30 AM EDT PACE Home Care / [place] Home Visit [facility] [place] [facility] [address] [place] [phone] Cheryle Pryor 11/03/2024 9:00 AM EDT PACE Attendance[facility] [place] [facility] [address] [place] [address] 11/04/2024 7:30 AM EDT PACE Home Care / P[facility] [place] [facility] [address] [place] [phone] Cheryle Pryor 11/04/2024 10:30 AM EDT PACE Home Care / P[facility] [place] [facility] [address] [place] [phone] Cheryle Pryor 11/05/2024 7:30 AM EDT PACE Home Care / P[facility] [place] [facility] [address] [place] [phone] Shawna Lebron 11/05/2024 9:00 AM EDT PACE Attendance[facility] [facility] [place] [facility] [address] [place] [phone] 11/06/2024 7:30 AM EDT PACE Home Care / P[facility] [place] [facility] [address] [place] [phone] Cheryle Pryor 11/06/2024 10:00 AM EDT Clinical Support [facility] [place] [address] [place] [phone] 11/07/2024 7:30 AM EDT PACE Home Care / [facility] Home Visit [facility] [place] [facility] [address] [place] [phone] Shawna Lebron 11/07/2024 10:30 AM EDT PACE Home Care / P[facility] [place] [facility] [address] [place] [phone] Jhoana Grijalva 11/08/2024 7:30 AM EDT PACE Home Care / [facility] [place] [facility] [address] [place] [phone] Cheryle Pryor 11/09/2024 7:30 AM EDT PACE Home Care / [facility] [place] [facility] [address] [place] [phone] Cheryle Pryor 11/10/2024 7:30 AM EDT PACE Home Care / [facility] [place] [facility] [address] [place] [phone] Cheryle Pryor 11/10/2024 9:00 AM EDT PACE Attendance[facility] [place] [facility] [address] [place] [phone] 11/10/2024 9:45 AM EDT Office Visit [facility] [address] [place] [phone] Gemini Simmons MD [address] [place] [address] 11/11/2024 7:30 AM EDT PACE Home Care / P[facility] [place] [facility] [address] [place] [phone] Cheryle Pryor 11/11/2024 10:30 AM EDT PACE Home Care / [facility] [place] [facility] [address] [place] [phone] Cheryle Pryor 11/12/2024 7:30 AM EDT PACE Home Care / P[facility] [place] [facility] [address] [place] [phone] Shawna Lebron 11/12/2024 9:00 AM EDT PACE Attendance[place] [facility] [place] [facility] [address] [place] [phone] 11/13/2024 7:30 AM EDT PACE Home Care / [facility] Visit [facility] [place] [facility] [address] [place] [address] Cheryle Pryor 11/14/2024 7:30 AM EDT PACE Home Care / [place] Home Visit [facility] [place] [facility] [address] [place] [address] Shawna Lebron 11/14/2024 10:30 AM EDT PACE Home Care / [facility] Home Visit [facility] [place] [facility] [address] [place] [address] Jhoana Grijalva 11/15/2024 7:30 AM EDT PACE Home Care / PACE Home Visit [facility] [place] [facility] [address] [place] [address] Jhoana Grijalva 11/16/2024 7:30 AM EDT PACE Home Care / [place] Home Visit [facility] [place] [facility] [address] [place] [address] Jhoana Grijalva 11/17/2024 7:30 AM EDT PACE Home Care / [place] Home Visit [facility] [place] [facility] [address] [place] [address] Cheryle Pryor 11/17/2024 9:00 AM EDT PACE Attendance/[place] [facility] [place] [facility] [address] [place] [address] 11/18/2024 7:30 AM EDT PACE Home Care / [facility] Home Visit [facility] [place] [facility] [address] [place] [address] Cheryle Pryor 11/18/2024 10:30 AM EDT PACE Home Care / [place] [facility] Visit [facility] [place] [facility] [address] [place] [phone] Cheryle Pryor 11/19/2024 7:30 AM EDT PACE Home Care / P[facility] [place] [facility] [address] [place] [phone] Shawna Lebron 11/19/2024 9:00 AM EDT PACE Attendance[facility] [place] [facility] [address] [place] [phone] 11/20/2024 7:30 AM EDT PACE Home Care / P[facility] [place] [facility] [address] [place] [phone] Cheryle Pryor 11/21/2024 7:30 AM EDT PACE Home Care / [facility] [place] [facility] [address] [place] [phone] Shawna Lebron 11/21/2024 10:30 AM EDT PACE Home Care / P[facility] [place] [facility] [address] [place] [phone] Jhoana Grijalva 11/22/2024 7:30 AM EDT PACE Home Care / P[facility] [place] [facility] [address] [place] [phone] Cheryle Pryor 11/23/2024 7:30 AM EDT PACE Home Care / [facility] Visit [facility] [place] [facility] [address] [place] [phone] Cheryle Pryor 11/24/2024 7:30 AM EDT PACE Home Care / [facility] [facility] Visit [facility] [place] [facility] [address] [place] [phone] Cheryle Pryor 11/24/2024 9:00 AM EDT PACE Attendance/[facility] [place] [facility] [address] [place] [phone] 11/25/2024 7:30 AM EDT PACE Home Care / P[facility] Visit [facility] [place] [facility] [address] [place] [phone] Cheryle Pryor 11/25/2024 10:30 AM EDT PACE Home Care / PACE [facility] Visit [facility] [place] [facility] [address] [place] [phone] Cheryle Pryor 11/26/2024 7:30 AM EDT PACE Home Care / [facility] [facility] Visit [facility] [place] [facility] [address] [place] [phone] Shawan Lebron 11/26/2024 9:00 AM EDT PACE Attendance/[facility] [place] [facility] [address] [place] [phone] 11/27/2024 7:30 AM EDT PACE Home Care / PACE [facility] [place] [facility] [address] [place] [phone] Cheryle Pryor 11/28/2024 7:30 AM EDT PACE Home Care / PACE [facility] Visit [facility] [place] [facility] [address] [place] [phone] Shawna Lebron 11/28/2024 10:30 AM EDT PACE Home Care / [facility] Visit [facility] [place] [facility] [address] [place] [phone] Jhoana Grijalva 11/29/2024 7:30 AM EDT PACE Home Care / [facility] Home Visit [facility] [place] [facility] [address] [place] [phone] Jhoana Grijalva 11/30/2024 7:30 AM EDT PACE Home Care / [place] Home Visit [facility] [place] [facility] [address] [place] [phone] Jhoana Grijalva 12/01/2024 7:30 AM EDT PACE Home Care / [facility] [place] [facility] [address] [place] [phone] Cheryle Pryor 12/01/2024 9:00 AM EDT PACE Attendance[facility] [place] [facility] [address] [place] [phone] 12/02/2024 7:30 AM EDT PACE Home Care / PACE [facility] [place] [facility] [address] [place] [phone] Cheryle Pryor 12/03/2024 7:30 AM EDT PACE Home Care / P[facility] [place] [facility] [address] [place] [phone] Shawna Lebron 12/03/2024 9:00 AM EDT PACE Attendance[facility] [place] [facility] [address] [place] [phone] 12/04/2024 7:30 AM EDT PACE Home Care / P[facility] [place] [facility] [address] [place] [phone] Cheryle Pryor 12/05/2024 7:30 AM EDT PACE Home Care / P[facility] [place] [facility] [address] [place] [phone] Shawna Lebron 12/05/2024 10:30 AM EDT PACE Home Care / P[facility] [place] [facility] [address] [place] [phone] Jhoana Grijalva 12/06/2024 7:30 AM EDT PACE Home Care / [facility] [place] [facility] [address] [place] [phone] Cheryle Pryor 12/07/2024 7:30 AM EDT PACE Home Care / P[facility] [place] [facility] [address] [place] [address] Cheryle Pryor 12/08/2024 9:00 AM EDT PACE Attendance[facility] [place] [facility] [address] [place] [address] 12/10/2024 9:00 AM EDT PACE Attendance[facility] [place] [facility] [address] [place] [address] 12/15/2024 9:00 AM EDT PACE Attendance[facility] [facility] [place] [facility] [address] [place] [phone] 12/17/2024 9:00 AM EDT PACE Attendance[facility] [place] [facility] [address] [place] [phone] 12/22/2024 9:00 AM EDT PACE Attendance[facility] [place] [facility] [address] [place] [phone] 12/24/2024 9:00 AM EDT PACE Attendance[facility] [place] [facility] [address] [place] [phone] 12/29/2024 9:00 AM EDT PACE Attendance[facility] [place] [facility] [address] [place] [phone] 12/31/2024 9:00 AM EDT PACE Attendance[facility] [place] [facility] [address] [place] [phone] 01/05/2025 9:00 AM EDT PACE Attendance[facility] [place] [facility] [address] [place] [phone] 01/07/2025 9:00 AM EDT PACE Attendance[facility] [place] [facility] [address] [place] [phone] 01/12/2025 9:00 AM EDT PACE Attendance[facility] [place] [facility] [address] [place] [address] 01/14/2025 9:00 AM EDT PACE Attendance[facility] [place] [facility] [address] [place] [address] 01/19/2025 9:00 AM EDT PACE Attendance[facility] [place] [facility] [address] [place] [address] 01/21/2025 9:00 AM EDT PACE Attendance[facility] [place] [facility] [address] [place] [phone] 01/26/2025 9:00 AM EDT PACE Attendance/[facility] [place] [facility] [address] [place] [phone] 01/28/2025 9:00 AM EDT PACE Attendance[facility] [place] [facility] [address] [place] [phone] 02/02/2025 9:00 AM EDT PACE Attendance[facility] [place] [facility] [address] [place] [phone] 02/04/2025 9:00 AM EDT PACE Attendance[facility] [place] [facility] [address] [place] [phone] 02/09/2025 9:00 AM EDT PACE Attendance[facility] [place] [facility] [address] [place] [address] 02/11/2025 9:00 AM EDT PACE Attendance[facility] [place] [facility] [address] [place] [address] 02/16/2025 9:00 AM EDT PACE Attendance[facility] [place] [facility] [address] [place] [phone] 02/18/2025 9:00 AM EDT PACE Attendance[facility] [place] [facility] [address] [place] [address] 02/23/2025 9:00 AM EDT PACE Attendance[facility] [place] [facility] [address] [place] [address] 02/25/2025 9:00 AM EDT PACE Attendance[facility] [place] [facility] [address] [place] [address] 03/02/2025 9:00 AM EDT PACE Attendance[facility] [place] [facility] [address] [place] [address] 03/04/2025 9:00 AM EDT PACE Attendance[facility] [place] [facility] [address] [place] [address] 03/09/2025 9:00 AM EDT PACE Attendance[facility] [place] [facility] [address] [place] [address] 03/11/2025 9:00 AM EDT PACE Attendance[facility] [place] [facility] [address] [place] [phone] 03/16/2025 9:00 AM EDT PACE Attendance[facility] [place] [facility] [address] [place] [phone] 03/18/2025 9:00 AM EDT PACE Attendance[facility] [place] [facility] [address] [place] [address] 03/23/2025 9:00 AM EDT PACE Attendance[facility] [place] [facility] [address] [place] [address] 03/25/2025 9:00 AM EDT PACE Attendance[facility] [place] [facility] [address] [place] [address] 03/30/2025 9:00 AM EDT PACE Attendance[facility] [place] [facility] [address] [place] [address] 04/01/2025 9:00 AM EDT PACE Attendance[facility] [place] [facility] [address] [place] [address] 04/06/2025 9:00 AM EDT PACE Attendance[facility] [place] [facility] [address] [place] [address] 04/08/2025 9:00 AM EDT PACE Attendance[facility] [place] [facility] [address] [place] [address] 04/13/2025 9:00 AM EDT PACE Attendance[facility] [place] [facility] [address] [place] [phone] 04/15/2025 9:00 AM EDT PACE Attendance[facility] [place] [facility] [address] [place] [address] 04/20/2025 9:00 AM EDT PACE Attendance[facility] [place] [facility] [address] [place] [phone] 04/22/2025 9:00 AM EDT PACE Attendance[facility] [place] [facility] [address] [place] [phone] 04/27/2025 9:00 AM EST PACE Attendance[facility] [place] [facility] [address] [place] [address] 04/29/2025 9:00 AM EST PACE Attendance[facility] [place] [facility] [address] [place] [phone] 05/04/2025 9:00 AM EST PACE Attendance[facility] [place] [facility] [address] [place] [address] 05/06/2025 9:00 AM EST PACE Attendance[facility] [place] [facility] [address] [place] [address] 05/11/2025 9:00 AM EST PACE Attendance[facility] [place] [facility] [address] [place] [address] 05/13/2025 9:00 AM EST PACE Attendance[facility] [place] [facility] [address] [place] [address] 05/18/2025 9:00 AM EST PACE Attend[facility] [place] [facility] [address] [place] [address] 05/20/2025 9:00 AM EST PACE Attend[facility] [place] [facility] [address] [place] [address] 05/25/2025 9:00 AM EST PACE Attend[facility] [place] [facility] [address] [place] [address] 05/27/2025 9:00 AM EST PACE Attendance[facility] [place] [facility] [address] [place] [phone] 06/01/2025 9:00 AM EST PACE Attendance[facility] [place] [facility] [address] [place] [phone] 06/03/2025 9:00 AM EST PACE Attend[facility] [place] [facility] [address] [place] [address] 06/08/2025 9:00 AM EST PACE Attend[facility] [place] [facility] [address] [place] [address] 06/10/2025 9:00 AM EST PACE Attend[facility] [place] [facility] [address] [place] [address] 06/15/2025 9:00 AM EST PACE Attend[facility] [place] [facility] [address] [place] [address] 06/17/2025 9:00 AM EST PACE Attendance[facility] [place] [facility] [address] [place] [address] 06/22/2025 9:00 AM EST PACE Attendance[facility] [place] [facility] [address] [place] [address] 06/24/2025 9:00 AM EST PACE Attendance/Day [facility] [place] [facility] [address] [place] [address] 06/29/2025 9:00 AM EST PACE Attendance/Day Center [facility] [place] [facility] [address] [place] [phone] 07/01/2025 9:00 AM EST PACE Attendance[facility] [place] [facility] [address] [place] [address] 07/06/2025 9:00 AM EST PACE Attend[facility] [place] [facility] [address] [place] [address] 2025 9:00 AM EST PACE Attend[facility] [place] [facility] [address] [place] [phone] 07/13/2025 9:00 AM EST PACE Attendance[facility] [place] [facility] [address] [place] [address] 07/15/2025 9:00 AM EST PACE Attend[facility] [facility] [place] [facility] [address] [place] [address] 07/20/2025 9:00 AM EST PACE Attendance[facility] [facility] [place] [facility] [address] [place] [address] 07/22/2025 9:00 AM EST PACE Attend[place] [facility] [place] [facility] [address] [place] [phone] 07/27/2025 9:00 AM EST PACE Attendance/Day Center [address] [address] 07/29/2025 9:00 AM EST PACE Attendance/Day Center [address] [address] 08/03/2025 9:00 AM EST PACE Attendance/Day [address] [address] documented as of this encounter Procedures Procedure [...] mirabilis(A ) ANNETTA 07/06/2024 11:50 AM EST [facility] Comment: Edited result: Previously reported as [...] MICROBIOLOGY - GENERAL OR DERABLES Final Result [facility] [address] [place] [address], * Fernandez urine culture tube (07/04/2024 8:00 AM EST) Extra Tube Hold for add-ons. 07/04/2024 3:02 PM EST [facility] Comment:Auto resulted. Urine Urine specimen obtained by clean catch procedure / Unknown 07/04/2024 8:00 AM EST 07/04/2024 1:35 PM EST us Dede Jessica Pimentel FLAP CURER LAB URINE ORDERABLES Final Re sult [facility] [address] [place] [address], [place] [phone] * (ABNORMAL) Urinalysis with reflex microscopic and culture (07/04/2024 8:00 AM EST) Specific Pace Urine 1.036(H) 1.003 - 1.030 LAB URINALYSIS - AUTOMATED METHOD 07/04/2024 2:20 PM [facility] pH, Urine 8.0 5.0 - 8.0 pH LAB URINALYSIS - AUTOMATED METHOD 07/04/2024 2:20 PM [facility] Leukocytes, Urine Moderate(A) Negative LAB URINALYSIS - AUTOMATED METHOD 07/04/2024 2:20 PM [facility] Nitrite, Urine Positive(A) Negative LAB URINALYSIS - AUTOMATED METHOD 07/04/2024 2:20 PM [facility] Protein, Urine 100(A) <=Trace mg/dL LAB URINALYSIS - AUTOMATED METHOD 07/04/2024 2:20 PM [facility] Glucose, Urine Negative Negative mg/dL LAB URINALYSIS - AUTOMATED METHOD 07/04/2024 2:20 PM [facility] Ketones, Urine Trace(A) Negative mg/dL LAB URINALYSIS - AUTOMATED METHOD 07/04/2024 2:20 PM [facility] Urobilinogen , Urine 1.0 0.2 - 1.0 mg/dL LAB URINALYSIS - AUTOMATED METHOD 07/04/2024 2:20 PM [facility] Bilirubin, Urine Negative Negative LAB URINALYSIS - AUTOMATED METHOD 07/04/2024 2:20 PM [facility] Blood, Urine Trace(A) Negative LAB URINALYSIS - AUTOMATED METHOD 07/04/2024 2:20 PM [facility] RBC, Urine 14.3(H) 0 - 4 /HPF LAB URINALYSIS - AUTOMATED METHOD 07/04/2024 2:20 PM [facility] WBC, Urine 295.7(H) 0 - 4 /HPF LAB URINALYSIS - AUTOMATED METHOD 07/04/2024 2:20 PM [facility] Squamous Epithelial, Urine 64(H) 0 - 60 /LPF LAB URINALYSIS - AUTOMATED METHOD 07/04/2024 2:20 PM [facility] LAB Crystals, Urine LT TRIPLE PHOSPHATE /LPF LAB URINALYSIS - AUTOMATED METHOD 07/04/2024 2:20 PM [facility] LAB Bacteria, Urine Many(A) Negative /HPF LAB URINALYSIS - AUTOMATED METHOD 07/04/2024 2:20 PM [facility] LAB Hyaline Casts, Urine 4.2(H) 0 - 3 /LPF LAB URINALYSIS - AUTOMATED METHOD 07/04/2024 2:20 PM [facility] LAB Urine Urine specimen obtained by clean catch procedure / Unknown 07/04/2024 8:00 AM EST 07/04/2024 1:35 PM EST Dede Pimentel NP LAB URINE ORDERABLES Final Re sult [facility] [address] [place] [address], documented in this encounter Visit Diagnoses Diagnosis Encounter for general adult medical examination without abnormal findings Encounter for screening mammogram for malignant neoplasm of breast Encounter for screening for osteoporosis Other specified disorders of bone density and structure, multiple sites Encounter for screening for malignant neoplasm of colon documented in this encounter Care Teams Cleaner And Dyer Relationship Specialty Start Date End Date Dede Pimentel NP [address] [address] PCP - General Family Medicine 05/02/24 documented as of this encounter
--- OUTSIDE RECORDS SUMMARY | 2024-10-17 12:47 | XMS_ITS ---
Author Organization [facility] Address [address] [place] [address] Care Team Providers Care Orthopedic Mechanic Name Role Phone Dede Pimentel MACHINING ENGINEER Primary Care Provider [phone] [facility] Status:Enrolled (Active) Start date:08/23/2024 Related program episode:Program of [facility] Care for the Elderly (Active) Continued Care and Services Coordination
--- OUTSIDE RECORDS SUMMARY | 2024-10-17 12:47 | XMS_ITS | Encounter Summary ---
Author Organization [facility] Address [address] [place] [address] Care Team Providers Care Mysql Dba Name Role Phone Dede Pimentel PEARL MAKER Primary Care Provider Encounter Details Date Type Department Care Team (Late st Contact Info) Description 10/17/2024 7:30 AM EDT [facility] / [facility] [place] [facility] [address] [place] [address] Shawna Lebron Social History Tobacco Use Types Packs/Day Years [...] [place] [facility] [address] [place] [address] Jhoana Grijalva 10/19/2024 7:30 AM EDT [facility] / [facility] [place] [facility] [address] [place] [address] Jhoana Grijalva 10/20/2024 7:30 AM EDT P[facility] Home Care / [facility] Home Visit [facility] [place] [facility] [address] [place] [address] Cheryle Pryor 10/20/2024 9:00 AM EDT [facility] [place] [facility] [address] [place] [address] 10/20/2024 9:00 AM EDT Consult [facility] [place] [address] [place] [address] 10/21/2024 7:30 AM EDT P[facility] Home Care / [facility] Home Visit [facility] [place] [facility] [address] [place] [address] Cheryle Pryor 10/21/2024 9:00 AM EDT Consult [facility] [place] [address] [place] [address] 10/21/2024 10:30 AM EDT PACE Home Care / [facility] Home Visit [facility] [place] [facility] [address] [place] [address] Cheryle Pryor 10/22/2024 7:30 AM EDT PACE Home Care / [facility] Home Visit [facility] [place] [facility] [address] [place] [address] Shawna Lebron 10/22/2024 9:00 AM EDT [facility] Att[facility] [facility] [place] [facility] [address] [place] [address] 10/22/2024 9:00 AM EDT Consult [facility] [place] [address] [place] [address] 10/23/2024 7:30 AM EDT PACE Home Care / P[facility] Home Visit [facility] [place] [facility] [address] [place] [address] Cheryle Pryor 10/23/2024 9:00 AM EDT Consult [facility] [place] [address] [place] [address] 10/24/2024 7:30 AM EDT PACE Home Care / [facility] Home Visit [facility] [place] [facility] [address] [place] [address] Shawna Lebron 10/24/2024 9:00 AM EDT Consult [facility] [place] [address] [place] [address] 10/25/2024 7:30 AM EDT PACE Home Care / [facility] Home Visit [facility] [place] [facility] [address] [place] [address] Cheryle Pryor 10/26/2024 7:15 AM EDT PACE Home Care / [facility] Home Visit [facility] [place] [facility] [address] [place] [address] Cheryle Pryor 10/27/2024 7:30 AM EDT PACE Home Care / [facility] Home Visit [facility] [place] [facility] [address] [place] [address] Cheryle Pryor 10/27/2024 9:00 AM EDT [facility] Att[facility] [facility] [place] [facility] [address] [place] [address] 10/28/2024 7:30 AM EDT PACE Home Care / [facility] Home Visit [facility] [place] [facility] [address] [place] [address] Cheryle Pryor 10/28/2024 10:30 AM EDT PACE Home Care / [facility] Home Visit [facility] [place] [facility] [address] [place] [address] Cheryle Pryor 10/29/2024 7:30 AM EDT PACE Home Care / [facility] Home Visit [facility] [place] [facility] [address] [place] [address] Shawna Lebron 10/29/2024 9:00 AM EDT [facility] Att[facility] [place] [facility] [address] [place] [address] 10/30/2024 7:30 AM EDT PACE Home Care / [facility] Visit [facility] [place] [facility] [address] [place] [address] Cheryle Pryor 10/31/2024 7:30 AM EDT PACE Home Care / P[facility] Home Visit [facility] [place] [facility] [address] [place] [address] Shawna Lebron 10/31/2024 10:30 AM EDT PACE Home Care / [facility] [place] [facility] [address] [place] [address] Jhoana Grijalva 11/01/2024 7:30 AM EDT PACE Home Care / P[facility] Home Visit [facility] [place] [facility] [address] [place] [address] Jhoana Grijalva 11/02/2024 7:30 AM EDT PACE Home Care / [facility] Visit [facility] [place] [facility] [address] [place] [address] Jhoana Grijalva 11/03/2024 7:30 AM EDT PACE Home Care / [facility] Home Visit [facility] [place] [facility] [address] [place] [address] Cheryle Pryor 11/03/2024 9:00 AM EDT [facility] Att[facility] [facility] [place] [facility] [address] [place] [address] [place] [address] 11/04/2024 7:30 AM EDT PACE Home Care / PACE Home Visit [facility] [place] [facility] [address] [place] [address] Cheryle Pryor 11/04/2024 10:30 AM EDT PACE Home Care / P[facility] Home Visit [facility] [place] [facility] [address] [place] [address] Cheryle Pryor 11/05/2024 7:30 AM EDT PACE Home Care / P[facility] Home Visit [facility] [place] [facility] [address] [place] [address] Shawna Lebron 11/05/2024 9:00 AM EDT [facility] Attend[facility] [place] [facility] [address] [place] [address] 11/06/2024 7:30 AM EDT PACE Home Care / PACE Home Visit [facility] [place] [facility] [address] [place] [address] Cheryle Pryor 11/06/2024 10:00 AM EDT Clinical Support [facility] [place] [address] [place] [address] 11/07/2024 7:30 AM EDT PACE Home Care / PACE Home Visit [facility] [place] [facility] [address] [place] [address] Shawna Lebron 11/07/2024 10:30 AM EDT PACE Home Care / P[facility] Home Visit [facility] [place] [facility] [address] [place] [address] Jhoana Grijalva 11/08/2024 7:30 AM EDT PACE Home Care / PACE Home Visit [facility] [place] [facility] [address] [place] [address] Cheryle Pryor 11/09/2024 7:30 AM EDT PACE Home Care / [facility] [place] [facility] [address] [place] [address] Cheryle Pryor 11/10/2024 7:30 AM EDT PACE Home Care / [facility] [place] [facility] [address] [place] [address] Cheryle Pryor 11/10/2024 9:00 AM EDT P[facility] Attendance[facility] [facility] [place] [facility] [address] [place] [address] 11/10/2024 9:45 AM EDT Office Visit [facility] [address] [place] [phone] Gemini Simmons MD [address] [facility] [address] [place] [address] 11/11/2024 7:30 AM EDT PACE Home Care / [facility] [place] [facility] [address] [place] [address] Cheryle Pryor 11/11/2024 10:30 AM EDT PACE Home Care / [facility] [place] [facility] [address] [place] [address] Cheryle Pryor 11/12/2024 7:30 AM EDT PACE Home Care / P[facility] Visit [facility] [place] [facility] [address] [place] [address] Shawna Lebron 11/12/2024 9:00 AM EDT P[facility] Attend[facility] [facility] [place] [facility] [address] [place] [address] 11/13/2024 7:30 AM EDT PACE Home Care / [facility] Home Visit [facility] [place] [facility] [address] [place] [address] Cheryle Pryor 11/14/2024 7:30 AM EDT PACE Home Care / [facility] Visit [facility] [place] [facility] [address] [place] [address] Shawna Lebron 11/14/2024 10:30 AM EDT PACE Home Care / [facility] Visit [facility] [place] [facility] [address] [place] [address] Jhoana Grijalva 11/15/2024 7:30 AM EDT PACE Home Care / [facility] Visit [facility] [place] [facility] [address] [place] [address] Jhoana Grijalva 11/16/2024 7:30 AM EDT PACE Home Care / [facility] Visit [facility] [place] [facility] [address] [place] [address] Jhoana Grijalva 11/17/2024 7:30 AM EDT PACE Home Care / [facility] Visit [facility] [place] [facility] [address] [place] [address] Cheryle Pryor 11/17/2024 9:00 AM EDT P[facility] Attend[facility] [facility] [place] [facility] [address] [place] [address] 11/18/2024 7:30 AM EDT PACE Home Care / [facility] Visit [facility] [place] [facility] [address] [place] [address] Cheryle Pryor 11/18/2024 10:30 AM EDT PACE Home Care / [facility] Visit [facility] [place] [facility] [address] [place] [address] Cheryle Pryor 11/19/2024 7:30 AM EDT PACE Home Care / [facility] Visit [facility] [place] [facility] [address] [place] [address] hSawna Lebron 11/19/2024 9:00 AM EDT [facility] Attend[facility] [place] [facility] [address] [place] [address] 11/20/2024 7:30 AM EDT PACE Home Care / [facility] Visit [facility] [place] [facility] [address] [place] [address] Cheryle Pryor 11/21/2024 7:30 AM EDT PACE Home Care / [facility] Visit [facility] [place] [facility] [address] [place] [address] Shawna Lebron 11/21/2024 10:30 AM EDT PACE Home Care / P[facility] Visit [facility] [place] [facility] [address] [place] [address] Jhoana Grijalva 11/22/2024 7:30 AM EDT PACE Home Care / P[facility] Home Visit [facility] [place] [facility] [address] [place] [address] Cheryle Pryor 11/23/2024 7:30 AM EDT PACE Home Care / P[facility] Home Visit [facility] [place] [facility] [address] [place] [address] Cheryle Pryor 11/24/2024 7:30 AM EDT PACE Home Care / [facility] Visit [facility] [place] [facility] [address] [place] [address] Cheryle Pryor 11/24/2024 9:00 AM EDT [facility] Attend[facility] [facility] [place] [facility] [address] [place] [address] 11/25/2024 7:30 AM EDT PACE Home Care / [facility] Visit [facility] [place] [facility] [address] [place] [address] Cheryle Pryor 11/25/2024 10:30 AM EDT PACE Home Care / [facility] Visit [facility] [place] [facility] [address] [place] [address] Cheryle Pryor 11/26/2024 7:30 AM EDT PACE Home Care / [facility] Visit [facility] [place] [facility] [address] [place] [address] Shawna Lebron 11/26/2024 9:00 AM EDT P[facility] Attend[facility] [place] [facility] [address] [place] [address] 11/27/2024 7:30 AM EDT PACE Home Care / [facility] Visit [facility] [place] [facility] [address] [place] [address] Cheryle Pryor 11/28/2024 7:30 AM EDT PACE Home Care / [facility] Visit [facility] [place] [facility] [address] [place] [address] Shawna Lebron 11/28/2024 10:30 AM EDT PACE Home Care / [facility] [place] [facility] [address] [place] [address] Jhoana Grijalva 11/29/2024 7:30 AM EDT PACE Home Care / [facility] Visit [facility] [place] [facility] [address] [place] [address] Jhoana Grijalva 11/30/2024 7:30 AM EDT PACE Home Care / [facility] Visit [facility] [place] [facility] [address] [place] [address] Jhoana Grijalva 12/01/2024 7:30 AM EDT PACE Home Care / [facility] Visit [facility] [place] [facility] [address] [place] [address] Cheryle Pryor 12/01/2024 9:00 AM EDT [facility] Att[facility] [place] [facility] [address] [place] [address] 12/02/2024 7:30 AM EDT PACE Home Care / [facility] [place] [facility] [address] [place] [address] Cheryle Pryor 12/03/2024 7:30 AM EDT PACE Home Care / P[facility] Home Visit [facility] [place] [facility] [address] [place] [address] Shawna Lebron 12/03/2024 9:00 AM EDT P[facility] Attendance[facility] [place] [facility] [address] [place] [address] 12/04/2024 7:30 AM EDT PACE Home Care / [facility] [place] [facility] [address] [place] [address] Cheryle Pryor 12/05/2024 7:30 AM EDT PACE Home Care / PACE Home Visit [facility] [place] [facility] [address] [place] [address] Shawna Lebron 12/05/2024 10:30 AM EDT PACE Home Care / [facility] [place] [facility] [address] [place] [address] Jhoana Grijalva 12/06/2024 7:30 AM EDT PACE Home Care / [facility] [place] [facility] [address] [place] [address] Cheryle Pryor 12/07/2024 7:30 AM EDT PACE Home Care / [facility] [place] [facility] [address] [place] [address] Cheryle Pryor 12/08/2024 9:00 AM EDT [facility] Att[facility] [place] [facility] [address] [place] [address] 12/10/2024 9:00 AM EDT [facility] Att[facility] [place] [facility] [address] [place] [address] 12/15/2024 9:00 AM EDT [facility] Att[facility] [place] [facility] [address] [place] [address] 12/17/2024 9:00 AM EDT [facility] Att[facility] [place] [facility] [address] [place] [address] 12/22/2024 9:00 AM EDT [facility] Att[facility] [place] [facility] [address] [place] [address] 12/24/2024 9:00 AM EDT P[facility] Att[facility] [place] [facility] [address] [place] [address] 12/29/2024 9:00 AM EDT [facility] Att[facility] [place] [facility] [address] [place] [address] 12/31/2024 9:00 AM EDT [facility] Att[facility] [place] [facility] [address] [place] [address] 01/05/2025 9:00 AM EDT [facility] Attend[facility] [place] [facility] [address] [place] [address] 01/07/2025 9:00 AM EDT P[facility] Attend[facility] [place] [facility] [address] [place] [address] 01/12/2025 9:00 AM EDT P[facility] Attend[facility] [place] [facility] [address] [place] [address] 01/14/2025 9:00 AM EDT P[facility] Attendance[facility] [place] [facility] [address] [place] [address] 01/19/2025 9:00 AM EDT P[facility] Attend[facility] [place] [facility] [address] [place] [address] 01/21/2025 9:00 AM EDT P[facility] Attend[facility] [place] [facility] [address] [place] [address] 01/26/2025 9:00 AM EDT P[facility] Attend[facility] [place] [facility] [address] [place] [address] 01/28/2025 9:00 AM EDT P[facility] Attend[facility] [place] [facility] [address] [place] [address] 02/02/2025 9:00 AM EDT P[facility] Attend[facility] [place] [facility] [address] [place] [address] 02/04/2025 9:00 AM EDT P[facility] Attend[facility] [place] [facility] [address] [place] [address] 02/09/2025 9:00 AM EDT P[facility] Attend[facility] [place] [facility] [address] [place] [address] 02/11/2025 9:00 AM EDT P[facility] Attend[facility] [place] [facility] [address] [place] [address] 02/16/2025 9:00 AM EDT [facility] [place] [facility] [address] [place] [address] 02/18/2025 9:00 AM EDT [facility] [place] [facility] [address] [place] [address] 02/23/2025 9:00 AM EDT [facility] [place] [facility] [address] [place] [address] 02/25/2025 9:00 AM EDT [facility] [place] [facility] [address] [place] [address] 03/02/2025 9:00 AM EDT P[facility] Attend[facility] [place] [facility] [address] [place] [address] 03/04/2025 9:00 AM EDT [facility] Attend[facility] [place] [facility] [address] [place] [address] 03/09/2025 9:00 AM EDT [facility]end[facility] [place] [facility] [address] [place] [address] 03/11/2025 9:00 AM EDT P[facility] Attend[facility] [place] [facility] [address] [place] [address] 03/16/2025 9:00 AM EDT [facility] [place] [facility] [address] [place] [address] 03/18/2025 9:00 AM EDT [facility] [place] [facility] [address] [place] [address] 03/23/2025 9:00 AM EDT [facility] [place] [facility] [address] [place] [address] 03/25/2025 9:00 AM EDT [facility] [place] [facility] [address] [place] [address] 03/30/2025 9:00 AM EDT [facility] [place] [facility] [address] [place] [address] 04/01/2025 9:00 AM EDT [facility] [place] [facility] [address] [place] [address] 04/06/2025 9:00 AM EDT [facility] [place] [facility] [address] [place] [address] 04/08/2025 9:00 AM EDT [facility] [place] [facility] [address] [place] [address] 04/13/2025 9:00 AM EDT [facility] [place] [facility] [address] [place] [address] 04/15/2025 9:00 AM EDT P[facility] Attend[facility] [place] [facility] [address] [place] [address] 04/20/2025 9:00 AM EDT [facility] [place] [facility] [address] [place] [address] 04/22/2025 9:00 AM EDT [facility] [place] [facility] [address] [place] [address] 04/27/2025 9:00 AM EST [facility] [place] [facility] [address] [place] [address] 04/29/2025 9:00 AM EST [facility] [place] [facility] [address] [place] [address] 05/04/2025 9:00 AM EST [facility] [place] [facility] [address] [place] [address] 05/06/2025 9:00 AM EST [facility] [place] [facility] [address] [place] [address] 05/11/2025 9:00 AM EST [facility] [place] [facility] [address] [place] [address] 05/13/2025 9:00 AM EST [facility] [place] [facility] [address] [place] [address] 05/18/2025 9:00 AM EST [facility] [place] [facility] [address] [place] [address] 05/20/2025 9:00 AM EST [facility] [place] [facility] [address] [place] [address] 05/25/2025 9:00 AM EST [facility] [place] [facility] [address] [place] [address] 05/27/2025 9:00 AM EST [facility] [place] [facility] [address] [place] [address] 06/01/2025 9:00 AM EST P[facility] Attend[facility] [place] [facility] [address] [place] [address] 06/03/2025 9:00 AM EST [facility] [place] [facility] [address] [place] [address] 06/08/2025 9:00 AM EST [facility] [place] [facility] [address] [place] [address] 06/10/2025 9:00 AM EST [facility] [place] [facility] [address] [place] [address] 06/15/2025 9:00 AM EST [facility] [place] [facility] [address] [place] [address] 06/17/2025 9:00 AM EST [facility] [place] [facility] [address] [place] [address] 06/22/2025 9:00 AM EST [facility] [place] [facility] [address] [place] [address] 06/24/2025 9:00 AM EST [facility] [place] [facility] [address] [place] [address] 06/29/2025 9:00 AM EST [facility] [place] [facility] [address] [place] [address] 07/01/2025 9:00 AM EST [facility] [place] [facility] [address] [place] [address] 07/06/2025 9:00 AM EST [facility] [place] [facility] [address] [place] [address] 2025 9:00 AM EST [facility] [place] [facility] [address] [place] [address] 07/13/2025 9:00 AM EST [facility] [place] [facility] [address] [place] [address] 07/15/2025 9:00 AM EST [facility] [place] [facility] [address] [place] [address] 07/20/2025 9:00 AM EST [facility] [place] [facility] [address] [place] [address] 07/22/2025 9:00 AM EST [facility] [place] [facility] [address] [place] [address] 07/27/2025 9:00 AM EST [facility] [place] [facility] [address] [place] [address] 07/29/2025 9:00 AM EST PACE Attendance/Day Center [employer] [facility] [address] [place] [address] 08/03/2025 9:00 AM EST [facility] [address] [address] [address] documented as of this encounter Visit Diagnoses Not on filedocumented in this encounter Care Teams Mysql Dba Relationship Specialty Start Date End Date Dede Pimentel NP [address] [place] [id number] PCP - General Family Medicine 05/02/24 documented as of this encounter
--- OUTSIDE RECORDS SUMMARY | 2024-10-17 12:47 | XMS_ITS | Encounter Summary ---
Author Organization [facility] Address [address] [place] [address] Care Team Providers Care Trencher Driver Name Role Phone Eleazar Gleason MD Primary Care Provider [phone] Encounter Details Date Type Department Care Team [...] by Dr. Gleason. She was transported by [employer] and arrives three hours early for herappointment. [...] up with Dr. Gleason as scheduled at [facility]. She left the unit stable, ambulatory using rolling walker accompanied by the [facility] staff who has returned to pick patient up. documented in this encounter Plan of Treatment Upcoming Encounters Date Type Department Care Team (Late st Contact Info) Description 10/18/2024 7:30 AM EDT PACE Home Care / [facility] and [facility] [address] [place] [phone] Jhoana Grijalva 10/19/2024 7:30 AM EDT PACE Home Care / PACE Home Visit [facility] In Home Nursing and Aide Services [address] [place] [phone] Jhoana Grijalva 10/20/2024 7:30 AM EDT PACE Home Care / PACE Home [facility] In Home [facility] and Aide Services [address] [place] [phone] Cheryle Pryor 10/20/2024 9:00 AM EDT PACE Attendance/Day Center [facility] P[facility] Day Center [address] [place] [phone] 10/20/2024 9:00 AM EDT Consult [address] [phone] 10/21/2024 7:30 AM EDT PACE Home Care / [place] [facility] [place] [facility] [address] [place] [address] Cheryle Pryor 10/21/2024 9:00 AM EDT Consult [facility] [address] [place] [address] 10/21/2024 10:30 AM EDT PACE Home Care / [facility] [facility] [place] [facility] [address] [place] [phone] Cheryle Pryor 10/22/2024 7:30 AM EDT PACE Home Care / [facility] [facility] [place] [facility] [place] [facility] [address] [place] [phone] Shawna Lebron 10/22/2024 9:00 AM EDT P[facility] [facility] [place] [facility] [address] [place] [phone] 10/22/2024 9:00 AM EDT Consult [facility] [address] [place] [phone] 10/23/2024 7:30 AM EDT PACE Home Care / [facility] [facility] [place] [facility] [address] [place] [phone] Cheryle Pryor 10/23/2024 9:00 AM EDT Consult [facility] [address] [place] [phone] 10/24/2024 7:30 AM EDT PACE Home Care / [place] [facility] [place] [facility] [address] [place] [phone] Shawna Lebron 10/24/2024 9:00 AM EDT Consult [facility] [address] [place] [phone] 10/25/2024 7:30 AM EDT PACE Home Care / [place] [facility] [place] [facility] [address] [place] [address] Cheryle Pryor 10/26/2024 7:15 AM EDT PACE Home Care / P[place] Home [place] [facility] [place] [facility] [address] [place] [phone] Cheryle Pryor 10/27/2024 7:30 AM EDT PACE Home Care / P[place] Home [place] [facility] [place] [facility] [address] [place] [phone] Cheryle Pryor 10/27/2024 9:00 AM EDT PACE [place] [facility] [place] [facility] [address] [place] [phone] 10/28/2024 7:30 AM EDT PACE Home Care / P[place] Home [place] [facility] [place] [facility] [address] [place] [phone] Cheryle Pryor 10/28/2024 10:30 AM EDT PACE Home Care / P[place] Home Visit [facility] [place] [facility] [address] [place] [phone] Cheryle Pryor 10/29/2024 7:30 AM EDT PACE Home Care / P[place] Home Visit [facility] [place] [facility] [address] [place] [phone] Shawna Lebron 10/29/2024 9:00 AM EDT PACE [place] [facility] [place] [facility] [address] [place] [phone] 10/30/2024 7:30 AM EDT PACE Home Care / [place] [facility] [place] [facility] [address] [place] [phone] Cheryle Pryor 10/31/2024 7:30 AM EDT PACE Home Care / P[place] Home [place] [facility] [place] [facility] [address] [place] [phone] Shawna Lebron 10/31/2024 10:30 AM EDT PACE Home Care / [place] [facility] [place] [facility] [place] [facility] [address] [place] [phone] Jhoana Grijalva 11/01/2024 7:30 AM EDT PACE Home Care / [place] [facility] [place] [facility] [place] [facility] [address] [place] [phone] Jhoana Grijalva 11/02/2024 7:30 AM EDT PACE Home Care / [place] [facility] [place] [facility] [address] [place] [phone] Jhoana Grijalva 11/03/2024 7:30 AM EDT PACE Home Care / [place] [facility] [place] [facility] [address] [place] [phone] Cheryle Pryor 11/03/2024 9:00 AM EDT P[place] [facility] [place] [facility] [address] [place] [phone] 11/04/2024 7:30 AM EDT PACE Home Care / [place] [facility] [place] [facility] [address] [place] [phone] Cheryle Pryor 11/04/2024 10:30 AM EDT PACE Home Care / [place] [facility] [place] [facility] [address] [place] [phone] Cheryle Pryor 11/05/2024 7:30 AM EDT PACE Home Care / [place] [facility] [place] [facility] [address] [place] [phone] Shawna Lebron 11/05/2024 9:00 AM EDT [place] [facility] [place] [facility] [address] [place] [phone] 11/06/2024 7:30 AM EDT PACE Home Care / P[place] Home [facility] [place] [facility] [address] [place] [phone] Cheryle Pryor 11/06/2024 10:00 AM EDT Clinical Support [facility] [place] [address] [place] [phone] 11/07/2024 7:30 AM EDT PACE Home Care / PACE Home Visit [facility] [place] [facility] [address] [place] [phone] Shawna Lebron 11/07/2024 10:30 AM EDT PACE Home Care / P[place] Home Visit [facility] [place] [facility] [address] [place] [phone] Jhoana Grijalva 11/08/2024 7:30 AM EDT PACE Home Care / P[place] Home [facility] [place] [facility] [address] [place] [phone] Cheryle Pryor 11/09/2024 7:30 AM EDT PACE Home Care / P[place] Home [facility] [place] [facility] [address] [place] [phone] Cheryle Pryor 11/10/2024 7:30 AM EDT PACE Home Care / P[place] Home [facility] [place] [facility] [address] [place] [phone] Cheryle Pryor 11/10/2024 9:00 AM EDT PACE Attendance[facility] [facility] [place] [address] [place] [phone] 11/10/2024 9:45 AM EDT Office Visit [facility] [address] [phone] Gemini Simmons MD [address] [facility] [address] [address] 11/11/2024 7:30 AM EDT PACE Home Care / P[place] Home Visit [facility] [place] [facility] [address] [place] [address] Cheryle Pryor 11/11/2024 10:30 AM EDT PACE Home Care / P[place] [facility] Visit [facility] [place] [facility] [address] [place] [phone] Cheryle Pryor 11/12/2024 7:30 AM EDT PACE Home Care / P[place] Home [facility] [place] [facility] [address] [place] [phone] Shawna Lebron 11/12/2024 9:00 AM EDT PACE Attendance[facility] [facility] [place] [address] [place] [phone] 11/13/2024 7:30 AM EDT PACE Home Care / P[place] [facility] Visit [facility] [place] [facility] [address] [place] [phone] Cheryle Pryor 11/14/2024 7:30 AM EDT PACE Home Care / P[place] Home Visit [facility] [place] [facility] [address] [place] [phone] Shawna Lebron 11/14/2024 10:30 AM EDT PACE Home Care / P[place] Home [facility] [place] [facility] [address] [place] [phone] Jhoana Grijalva 11/15/2024 7:30 AM EDT PACE Home Care / [place] [facility] [address] [place] [phone] Jhoana Grijalva 11/16/2024 7:30 AM EDT PACE Home Care / P[place] Home Visit [facility] [place] [facility] [address] [place] [phone] Jhoana Grijalva 11/17/2024 7:30 AM EDT PACE Home Care / [place] [facility] [address] [place] [phone] Cheryle Pryor 11/17/2024 9:00 AM EDT PACE Attendance[facility] [facility] [place] [address] [place] [phone] 11/18/2024 7:30 AM EDT PACE Home Care / [place] [facility] [address] [place] [phone] Cheryle Pryor 11/18/2024 10:30 AM EDT PACE Home Care / P[place] Home Visit [facility] [place] [facility] [address] [place] [phone] Cheryle Pryor 11/19/2024 7:30 AM EDT PACE Home Care / [place] [facility] [address] [place] [phone] Shawan Lebron 11/19/2024 9:00 AM EDT PACE Attendance[place] [facility] [place] [address] [place] [phone] 11/20/2024 7:30 AM EDT PACE Home Care / [place] [facility] [address] [place] [phone] Cheryle Pryor 11/21/2024 7:30 AM EDT PACE Home Care / [place] [facility] [place] [facility] [place] [facility] [address] [place] [phone] Shawna Lebron 11/21/2024 10:30 AM EDT PACE Home Care / [place] [facility] [place] [facility] [place] [facility] [address] [place] [phone] Jhoana Grijalva 11/22/2024 7:30 AM EDT PACE Home Care / P[place] Home Visit [facility] [place] [facility] [address] [place] [phone] Cheryle Pryor 11/23/2024 7:30 AM EDT PACE Home Care / P[place] Home Visit [facility] [place] [facility] [address] [place] [phone] Cheryle Pryor 11/24/2024 7:30 AM EDT PACE Home Care / PACE Home Visit [facility] [place] [facility] [address] [place] [phone] Cheryle Pryor 11/24/2024 9:00 AM EDT PACE Attendance[place] [facility] [place] [address] [place] [phone] 11/25/2024 7:30 AM EDT PACE Home Care / PACE Home Visit [facility] [place] [facility] [address] [place] [phone] Cheryle Pryor 11/25/2024 10:30 AM EDT PACE Home Care / PACE Home Visit [facility] [place] [facility] [address] [place] [phone] Cheryle Pryor 11/26/2024 7:30 AM EDT PACE Home Care / [place] [facility] [address] [place] [phone] Shawna Lebron 11/26/2024 9:00 AM EDT [place] [facility] [place] [facility] [address] [place] [phone] 11/27/2024 7:30 AM EDT PACE Home Care / [place] [facility] [address] [place] [phone] Cheryle Pryor 11/28/2024 7:30 AM EDT PACE Home Care / [place] [facility] [place] [facility] [address] [place] [phone] Shawna Lebron 11/28/2024 10:30 AM EDT PACE Home Care / [place] [facility] [address] [place] [phone] Jhoana Grijalva 11/29/2024 7:30 AM EDT PACE Home Care / [place] [facility] [address] [place] [phone] Jhoana Grijalva 11/30/2024 7:30 AM EDT PACE Home Care / [place] [facility] [address] [place] [phone] Jhoana Grijalva 12/01/2024 7:30 AM EDT PACE Home Care / [place] [facility] [address] [place] [phone] Cheryle Pryor 12/01/2024 9:00 AM EDT [place] [facility] [place] [address] [place] [address] 12/02/2024 7:30 AM EDT PACE Home Care / [place] [facility] [address] [place] [address] Cheryle Pryor 12/03/2024 7:30 AM EDT PACE Home Care / [place] [facility] [address] [place] [phone] Shawna Lebron 12/03/2024 9:00 AM EDT P[place] [facility] [place] [facility] [address] [place] [phone] 12/04/2024 7:30 AM EDT PACE Home Care / [place] [facility] [address] [place] [address] Cheryle Pryor 12/05/2024 7:30 AM EDT PACE Home Care / [place] [facility] [place] [facility] [address] [place] [address] Shawna Lebron 12/05/2024 10:30 AM EDT PACE Home Care / [place] [facility] [address] [place] [address] Jhoana Grijalva 12/06/2024 7:30 AM EDT PACE Home Care / [place] [facility] [place] [facility] [address] [place] [phone] Cheryle Pryor 12/07/2024 7:30 AM EDT PACE Home Care / [facility] [facility] [address] [place] [address] Cheryle Pryor 12/08/2024 9:00 AM EDT P[place] [facility] [place] [facility] [address] [place] [phone] 12/10/2024 9:00 AM EDT P[place] [facility] [place] [facility] [address] [place] [phone] 12/15/2024 9:00 AM EDT P[place] [facility] [place] [facility] [address] [place] [phone] 12/17/2024 9:00 AM EDT P[place] [facility] [place] [address] [place] [phone] 12/22/2024 9:00 AM EDT P[place] [facility] [place] [address] [place] [phone] 12/24/2024 9:00 AM EDT PACE Attendance[facility] [facility] [place] [facility] [address] [place] [address] 12/29/2024 9:00 AM EDT P[place] Attendance[facility] [facility] [place] [facility] [address] [place] [address] 12/31/2024 9:00 AM EDT P[place] Attend[place] [facility] [place] [facility] [address] [place] [address] 01/05/2025 9:00 AM EDT P[place] Att[facility] [facility] [place] [facility] [address] [place] [phone] 01/07/2025 9:00 AM EDT PACE Attendance/[facility] [place] [facility] [place] [address] [place] [phone] 01/12/2025 9:00 AM EDT PACE Attend[facility] [facility] [place] [facility] [address] [place] [phone] 01/14/2025 9:00 AM EDT PACE Attend[place] [facility] [place] [facility] [address] [place] [phone] 01/19/2025 9:00 AM EDT P[place] Attend[place] [facility] [place] [facility] [address] [place] [phone] 01/21/2025 9:00 AM EDT PACE Attendance[place] [facility] [place] [facility] [address] [place] [address] 01/26/2025 9:00 AM EDT P[place] Attend[place] [facility] [place] [facility] [address] [place] [phone] 01/28/2025 9:00 AM EDT PACE Attend[place] [facility] [place] [facility] [address] [place] [phone] 02/02/2025 9:00 AM EDT PACE Attendance[facility] [facility] [place] [facility] [address] [place] [address] 02/04/2025 9:00 AM EDT PACE Attend[facility] [facility] [place] [facility] [address] [place] [address] 02/09/2025 9:00 AM EDT PACE Attend[facility] [facility] [place] [facility] [address] [place] [address] 02/11/2025 9:00 AM EDT P[place] Attend[place] [facility] [place] [facility] [address] [place] [phone] 02/16/2025 9:00 AM EDT PACE Attendance/[place] [facility] [place] [facility] [address] [place] [phone] 02/18/2025 9:00 AM EDT PACE Attend[facility] [facility] [place] [facility] [address] [place] [phone] 02/23/2025 9:00 AM EDT P[place] [facility] [place] [facility] [address] [place] [phone] 02/25/2025 9:00 AM EDT P[place] Att[facility] [facility] [place] [address] [place] [phone] 03/02/2025 9:00 AM EDT P[place] Attend[facility] [facility] [place] [address] [place] [phone] 03/04/2025 9:00 AM EDT PACE Attend[place] [facility] [place] [address] [place] [address] 03/09/2025 9:00 AM EDT P[place] Attend[place] [facility] [place] [facility] [address] [place] [phone] 03/11/2025 9:00 AM EDT PACE Attendance/[facility] [place] [facility] [address] [place] [address] 03/16/2025 9:00 AM EDT PACE Attendance/[facility] [place] [facility] [address] [place] [address] 03/18/2025 9:00 AM EDT PACE Attendance/[facility] [place] [facility] [address] [place] [address] 03/23/2025 9:00 AM EDT PACE Attendance/[facility] [place] [facility] [address] [place] [address] 03/25/2025 9:00 AM EDT P[place] Attendance[facility] [place] [address] [place] [phone] 03/30/2025 9:00 AM EDT PACE Attendance[facility] [place] [address] [place] [address] 04/01/2025 9:00 AM EDT PACE Attendance/[facility] [place] [facility] [address] [place] [phone] 04/06/2025 9:00 AM EDT PACE Attendance[facility] [place] [facility] [address] [place] [phone] 04/08/2025 9:00 AM EDT PACE Attendance[facility] [place] [facility] [address] [place] [address] 04/13/2025 9:00 AM EDT P[place] Attend[facility] [place] [facility] [facility] [address] [place] [address] 04/15/2025 9:00 AM EDT P[place] Attend[facility] [facility] [place] [facility] [address] [place] [phone] 04/20/2025 9:00 AM EDT PACE Attendance[facility] [facility] [place] [facility] [facility] [address] [place] [address] 04/22/2025 9:00 AM EDT PACE Attendance[facility] [facility] [place] [facility] [address] [place] [address] 04/27/2025 9:00 AM EST PACE Attendance/[place] [facility] [place] [facility] [facility] [address] [place] [address] 04/29/2025 9:00 AM EST PACE Attendance[facility] [facility] [place] [facility] [facility] [address] [place] [address] 05/04/2025 9:00 AM EST PACE Attend[facility] [facility] [place] [facility] [address] [place] [address] 05/06/2025 9:00 AM EST P[facility] Attend[facility] [facility] [place] [facility] [address] [place] [phone] 05/11/2025 9:00 AM EST PACE Attend[facility] [facility] [place] [facility] [address] [place] [phone] 05/13/2025 9:00 AM EST PACE Attend[facility] [facility] [place] [facility] [address] [place] [phone] 05/18/2025 9:00 AM EST PACE Attend[facility] [facility] [place] [facility] [facility] [address] [place] [address] 05/20/2025 9:00 AM EST PACE Attend[place] [facility] [place] [facility] [address] [place] [phone] 05/25/2025 9:00 AM EST PACE Attend[place] [facility] [place] [facility] [address] [place] [address] 05/27/2025 9:00 AM EST PACE Attend[place] [facility] [place] [facility] [facility] [address] [place] [address] 06/01/2025 9:00 AM EST PACE Attend[facility] [facility] [place] [facility] [address] [place] [address] 06/03/2025 9:00 AM EST PACE Attend[facility] [facility] [place] [facility] [address] [place] [address] 06/08/2025 9:00 AM EST PACE Attend[facility] [facility] [place] [facility] [address] [place] [address] 06/10/2025 9:00 AM EST PACE Attendance[facility] [facility] [place] [facility] [address] [place] [phone] 06/15/2025 9:00 AM EST PACE Attendance/[facility] [place] [facility] [address] [place] [phone] 06/17/2025 9:00 AM EST PACE Attendance/[facility] [place] [facility] [address] [place] [phone] 06/22/2025 9:00 AM EST PACE Attendance[facility] [place] [facility] [address] [place] [phone] 06/24/2025 9:00 AM EST PACE Attend[facility] [facility] [place] [facility] [address] [place] [phone] 06/29/2025 9:00 AM EST PACE Attend[facility] [facility] [place] [facility] [address] [place] [phone] 07/01/2025 9:00 AM EST PACE Attend[place] [facility] [place] [facility] [address] [place] [address] 07/06/2025 9:00 AM EST PACE Attendance[facility] [facility] [place] [facility] [address] [place] [phone] 2025 9:00 AM EST P[facility] [place] [facility] [address] [place] [phone] 07/13/2025 9:00 AM EST PACE [place] [facility] [place] [facility] [address] [place] [phone] 07/15/2025 9:00 AM EST PACE [place] [facility] [place] [facility] [address] [place] [phone] 07/20/2025 9:00 AM EST PACE [place] [facility] [place] [facility] [address] [place] [phone] 07/22/2025 9:00 AM EST PACE [place] [facility] [place] [facility] [address] [place] [phone] 07/27/2025 9:00 AM EST PACE [place] [facility] [place] [facility] [address] [place] [phone] 07/29/2025 9:00 AM EST PACE [place] [facility] [place] [facility] [address] [place] [phone] 08/03/2025 9:00 AM EST PACE Attend[place] [facility] [place] [facility] [address] [place] [phone] documented as of this encounter Visit Diagnoses Not on filedocumented in this encounter Care Teams Trencher Driver Relationship Specialty Start Date End Date Eleazar Gleason MD [address] [address] PCP - General 04/11/24 05/01/24 documented as of this encounter
[2024-10-17 12:50] LABS: Venous Blood Gas Refer to POC result
[2024-10-17 12:52] LABS: VBG Base Excess 4.8 mmol/L; VBG HCO3 31 mmol/L (22-26); VBG pCO2 55 mmHg; VBG pH 7.36 (7.32-7.43); VBG pO2 44 mmHg
[2024-10-17] MEDS: cefTRIAXone sodium 1 GM VIAL IVPUSH (12:55)
[2024-10-17] MEDS: Acetaminophen 1,000 MG/100 ML PIGGYBACK 400 MG IV (12:55)
[2024-10-17] MEDS: Morphine Sulfate 4 MG/ML CARTRIDGE IVPUSH (13:02)
--- NOTE | 2024-10-17 13:03 | PC.NURSE ---
delay in giving medications due to inability to gain iv access, [place] trained nurse was finally able to obtain it, the medication was administered, pt awaiting ct scan, plan of care ongoing
[2024-10-17 13:06] LABS: Troponin-I High Sensitivity < 2.7 ng/L (<3.5-17.0)
[2024-10-17] MEDS: iohexoL 350 MG/ML 100 ML INFUS..BTL IV (13:43)
[2024-10-17 14:07] VITALS: BP 117/59; PULSE 65; RESP 16; TEMP 36.4; O2SAT 94
--- NOTE | 2024-10-17 15:01 | PC.NURSE ---
upon patient request, this nurse spoke with case management to obtain a number to call for the patients medications to be picked up through [facility]. Jennifer ramsey was the contact give [phone], upon calling there was no pickup and there was not a answering machine to leave a message. additionally calling [facility] itself there was no pickup. the patient was told this and they will attempt to call themselves as well. pt to discharge home with family who is coming to pick her up, pt ambulating to waiting room with steady gait and her wheeled walker to wait for her ride.
[2024-10-17 15:03] VITALS: BP 125/69; PULSE 70; RESP 16; TEMP 36.5; O2SAT 94
== END 2024-10-17 15:04 | disposition home or self-care (01) ==
PROVIDERS: Physician Assistant Medical; Emergency Provider Emergency Medicine; PCP Nurse Practitioner Family
DX: J44.1 Chronic obstructive pulmonary disease with (acute) exacerbation (principal); S20.212A Contusion of left front wall of thorax, initial encounter; W01.0XXA Fall on same level from slipping, tripping and stumbling without subsequent striking against object, initial encounter; R05.9 Cough, unspecified; R06.02 Shortness of breath; F17.210 Nicotine dependence, cigarettes, uncomplicated; Y93.9 Activity, unspecified; Y92.9 Unspecified place or not applicable; Y99.9 Unspecified external cause status
CPT/HCPCS: 36415; 71260; 80053; 82803; 83605; 83735; 83880; 84484; 85025; 85610; 85730; 86140; 87040; 93005; 96374; 96375; 99284; 99285; J0131; J0696; J2270; Q9967

== ENCOUNTER → 2024-10-17 11:41 | Outpatient (BNV) | payer OTHER, SELFPAY | PROVIDERS: Emergency Provider Emergency Medicine; PCP Nurse Practitioner Family; Visit Provider Radiology Diagnostic Radiology | DX: S20.20XA Contusion of thorax, unspecified, initial encounter (principal); R06.00 Dyspnea, unspecified | CPT/HCPCS: 71260 ==

== ENCOUNTER → 2024-10-17 12:17 | Outpatient (BNV) | payer OTHER, SELFPAY | PROVIDERS: Emergency Provider Emergency Medicine; PCP Nurse Practitioner Family; Visit Provider Internal Medicine | DX: R07.9 Chest pain, unspecified (principal) | CPT/HCPCS: 93010 ==

== ENCOUNTER 2024-10-22 12:15 | Outpatient (RCR) | payer OTHER, SELFPAY ==
[2024-10-14 12:02] VITALS: BMI 38.9
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
--- NOTE | 2024-10-16 13:51 | PC.NURSE ---
This automobile and property underwriter found patient outside on the side walk with other patients from the program surrounding her. She reports she fell and stated she was able to get up on her own. This automobile and property underwriter did not witness the fall or patient getting up from the fall. I did witness the patient ambulating with her walker and stating she felt ok to ambulate. She was alert and oriented x4. Patient reports she went outside to make a phone call and fell on her left side. Grass stains noted on the left side of her knee and dirt noted on the left side of her jacket. She stated she fell on her left side. On further inspection patient stated that her chest hurt and thinks she hit her head unsure of which side. Outpatient response team on the scene. Patient escorted by Outpatient Response team and driven to the [facility] ER for further evaluation. Dr. Flores is aware.
--- NOTE | 2024-10-17 08:59 | PC.NURSE ---
Trina called [facility] staff to state that she would not be in today as she has to return to the hospital today. Reports she will be here on Sunday.
--- NOTE | 2024-10-17 09:19 | PC.NURSE ---
I spoke to Trina, she stated the hospital called her and asked her to come back. She is unclear why. She stated her friend is bringing her to the hospital today. She stated she will be in on Sunday.
--- NOTE | 2024-10-20 08:34 | PC.NURSE ---
Trina called out of the program today. C/O pain on left side of her body were she fell. Stated she has a f/u appointment with her PCP today, stated she is waiting for her ride to pick her up. Stated she will call us tomorrow with an update.
--- NOTE | 2024-10-21 09:18 | PC.NURSE ---
Addendum entered by Loren Spencer RN 10/21/24 09:22: Patient also stated she has to go back to the doctors on . Original Note: Patient did not show up to the program this morning. I called and spoke to Trina. She stated she is currently resting. Denied any safety concerns, no SI. She stated she went to her doctors appointment yesterday and stated, I got some shots. I told her one of the program staff would be contacting her and following up with her regarding attendance in the program.
--- NOTE | 2024-10-21 12:20 | HO.PHP ---
This clinician received a message from the nurse requesting to replied to a call from social Mariah worker (phone number [phone]) and this clinician called and left a voice message requesting a call back because no response was received.
== END 2024-10-22 23:59 | disposition home or self-care (01) ==
LOC: HO.PHPA 12:15
PROVIDERS: Visit Provider Psychiatry & Neurology Psychiatry
DX: F31.81 Bipolar II disorder (principal); G31.84 Mild cognitive impairment of uncertain or unknown etiology
CPT/HCPCS: 90791; 90853

== ENCOUNTER → 2024-10-22 12:15 | Outpatient (BNV) | payer OTHER, SELFPAY | PROVIDERS: Visit Provider Psychiatry & Neurology Psychiatry | DX: F31.81 Bipolar II disorder (principal); G31.84 Mild cognitive impairment of uncertain or unknown etiology | CPT/HCPCS: 99499 ==

== ENCOUNTER 2025-02-09 15:51 | Inpatient (IN) | payer OTHER, SELFPAY ==
--- NOTE | ~2025-02-09 | XR_ITS ---
CLINICAL HISTORY: sternal pain 1 view chest Comparison: CT/KY - CT CHEST WITH IV CONTRAST - 10/17/24 13:23 EDT CR/KY/SR - XR CHEST 1V - 10/01/24 19:10 EDT Findings: Low inspiration. Resultant mild vascular crowding centrally with subsegmental atelectasis. Eventration right hemidiaphragm. Worsening right basilar atelectasis versus infiltrate. Heart size normal. No evidence of heart failure. No acute fractures. Impression: 1. Low inspiration with central vascular crowding and subsegmental atelectasis. 2. Eventration right hemidiaphragm. Worsening right basilar atelectasis versus infiltrate. Stable left basilar atelectasis. This document has been electronically signed by: Parker Carpio MD on 02/15/2025 14:33:42
--- NOTE | ~2025-02-09 | XR_ITS ---
CLINICAL HISTORY: s p fall, pain 2 views left hip. Single AP pelvis. Comparison: None Findings: No fractures, subluxations or dislocations. Normal congruency of the hip joint. SI joints pubic rami and symphysis pubis intact. No bony arthritic changes. Bone mineralization and soft tissues within normal limits. No radiopaque foreign body. Impression: 1. No acute fractures or malalignment This document has been electronically signed by: Parker Carpio MD on 02/15/2025 14:28:42
--- NOTE | ~2025-02-09 | XR_ITS ---
CLINICAL HISTORY: pain 2 views sternum Comparison: CR - XR CHEST 1V - 02/15/25 13:33 EDT Findings: No fractures or dislocations. No radiopaque foreign body. Impression: 1. Normal sternum. This document has been electronically signed by: Parker Carpio MD on 02/15/2025 14:30:58
[2025-02-09 16:03] VITALS: BP 135/70; BP 145/78; PULSE 62; PULSE 74; RESP 20; TEMP 36.8; O2SAT 94; BMI 39.9
--- NOTE | 2025-02-09 16:06 | MHC.CARE ---
Assessed by [facility] in the community and is an inpatient bedsearch due to SI with plan. Will be sent on a section 12A. [facility] to fax the assessment to the CARE Team when complete.
--- NOTE | 2025-02-09 16:06 | ED.PSYCH ---
HPI - Psych General Chief Complaint: Psychiatric Symptoms Stated Complaint: SI WITH PLAN Time Seen by Provider: 02/09/25 16:05 Source: patient and RN notes reviewed Mode of arrival: ambulatory Limitations: no limitations History of Present Illness ED Provider: Priyanka Vila PA-C HPI Narrative: This is a 64-year-old female, with a past medical history of bipolar 2, depression, hypertension, hyperlipidemia, CHF, COPD, CVA, who presents emergency department on section 12 for evaluation of suicidal ideation with plan to walk into traffic. Patient reports that she has had these thoughts for several weeks now. She denies any alcohol or drug use. Denies any thoughts of harming anyone else. No auditory or visual hallucinations. She denies being any current pain. No recent injuries. No current chest pain or shortness of breath. She has been compliant on all of her medications. She reports a 35 pack year history. No other complaints or concerns at this time. MD complaint: suicidal ideation and feels depressed Onset (ago): week(s) Duration: constant History of same: Yes Relieving factors: none Exacerbating factors: none Associated psychiatric symptoms: depression and suicidal ideation Associated symptoms: denies other symptoms Treatments prior to arrival: none If self harm: admits thoughts of self harm and has plan Details of plan: Walk out into traffic. Related Data Home Medications ?Medication ?Instructions ?Recorded ?Confirmed lorazepam 1 mg tablet 1 mg PO TID 08/19/24 02/10/25 atorvastatin 80 mg tablet 40 mg PO BEDTIME 09/26/24 02/10/25 ferrous sulfate 325 mg (65 mg 325 mg PO DAILY 09/26/24 02/10/25 iron) tablet,delayed release methenamine hippurate 1 g PO DAILY 09/26/24 02/10/25 oxcarbazepine 300 mg tablet 600 mg PO BID 09/26/24 02/10/25 potassium chloride 10 mEq 10 meq PO BID 09/26/24 02/10/25 tablet,extended release(part/cryst) trazodone 50 mg tablet 25 mg PO TIDWMEAL 09/26/24 02/10/25 albuterol sulfate 90 mcg/actuation 2 puff inhalation Q6H PRN 10/14/24 02/10/25 aerosol inhaler (Ventolin HFA) Shortness Of Breath/Wheezing bumetanide 2 mg tablet 2 mg PO DIRECTED 10/14/24 02/10/25 gabapentin 800 mg tablet 800 mg PO TID 10/14/24 02/10/25 hydroxyzine HCl 25 mg tablet 25 mg PO BID 10/14/24 02/10/25 nicotine 21 mg/24 hr daily 1 patch transdermal DAILY PRN 10/14/24 02/10/25 transdermal patch Nicotine Cravings famotidine 40 mg tablet 40 mg PO BEDTIME 02/10/25 02/10/25 fluoxetine 20 mg capsule 40 mg PO DAILY 02/10/25 02/10/25 prazosin 1 mg capsule 3 mg PO BEDTIME 02/10/25 02/10/25 sennosides 8.6 mg tablet (senna) 8.6 mg PO DAILY 02/10/25 02/10/25 Previous Rx's ?Medication ?Instructions ?Recorded apixaban 5 mg tablet (Eliquis) 5 mg PO BID #0 tabs 09/01/24 aspirin 81 mg chewable tablet 81 mg PO DAILY #0 tabs 09/01/24 fluticasone fur. 100 mcg-umeclid 1 inh inhalation RDAILY #0 ea 09/01/24 62.5 mcg-vilant 25 mcg inhalat.powder (Trelegy Ellipta) metoprolol succinate 25 mg 25 mg PO DAILY #0 tabs 09/01/24 tablet,extended release 24 hr quetiapine 400 mg tablet 400 mg PO BEDTIME #0 tabs 09/01/24 bupropion HCl 300 mg 24 hr tablet, 300 mg PO DAILY 30 days #30 tabs 10/05/24 extended release Allergies Allergy/AdvReac Type Severity Reaction Status Date / Time sertraline (From Zoloft) Allergy Intermediate Nausea and Verified 02/09/25 16:25 Vomiting Penicillins Allergy Mild RASH Verified 02/09/25 16:25 ciprofloxacin AdvReac Intermediate Nausea and Verified 02/09/25 16:25 Vomiting Review of Systems Review of Systems: Yes all other systems are reviewed and are negative Constitutional: Constitutional: Reports as per [facility] Past Medical History Attestation statement: The following information was validated with the patient. Medical History Ruptured spleen delivery delivered CHF (congestive heart failure) Type II diabetes mellitus History of falling Fibromyalgia O2 dependent COPD (chronic obstructive pulmonary disease) CVA (cerebral vascular accident) Bipolar disorder Surgical History History of cholecystectomy Social History Social History Household Members: None Housing: Apartment Do you presently have visiting nurse or other home services: Yes Alcohol intake: current Alcohol intake frequency: holidays/special occasions only Comment: 1:1 Patient Tobacco Use Status: Current everyday Tobacco user Tobacco use type: Cigarette Cigarette Packs Per Day: 0.5 Cigarettes Per Day: 8 Years Smoked: 45 Smoked in Last 30 Days: Yes e-Cigarette/Vaping Use: Never Used Second Hand Smoke Exposure: Yes Use of substances other than those prescribed or required for medical reasons: No Substance Use Type: Prescription Drugs Advance Directives: Yes Advance Directives on File: Yes Advance Directives Date on File: 09/02/24 Patient : No service: No Sexual orientation: Straight/Heterosexual Physical Exam Vital Signs: Vital Signs: Last Vital Signs Temp 98.2 F 02/09/25 16:03 Pulse 72 02/09/25 16:28 Resp 20 02/09/25 16:28 BP 145/78 H 02/09/25 16:03 Pulse Ox 96 02/09/25 16:28 O2 Del Method Room Air 02/09/25 16:28 BMI result Body Mass Index 39.9 Const: General: cooperative, comfortable and no acute distress Orientation/consciousness: patient oriented x3 Limitations: no limitations HEENT: Head: Yes normal to inspection, Yes normocephalic and Yes atraumatic Ears: hearing grossly normal bilaterally General nose exam: Normal external nose present Face and sinus: Yes normal facial exam Mouth: Normal oral and palatal mucosa present, oropharynx normal and moist mucous membranes Throat: Yes posterior oropharynx normal Eyes: General: appearance normal, both eyes and all related structures Eyelids: Yes eyelids normal Conjunctivae: conjunctivae normal Sclerae: sclerae normal Pupils: Equal, round and reactive pupils present EOM: EOMs intact bilaterally Neck: Neck: Yes normal visual inspection, Yes full ROM and Yes no lymphadenopathy Lymphatic: no lymphadenopathy noted Chest: Chest palpation & inspection: normal inspection of the chest Resp: Effort & Inspection: normal respiratory effort and able to speak in complete sentences Auscultation: clear to auscultation bilaterally, no crackles, no rales, no rhonchi and no wheezes Cardio: Rate: regular rate Rhythm: regular rhythm Heart sounds: S1 normal heart sound present and S2 normal heart sound present GI: Other: Abdomen is soft, nontender, nondistended Inspection: Yes normal to inspection Skin: General skin exam: no rashes or lesions noted Trauma: no lacerations or abrasions Wounds: no wounds Neuro: General: patient oriented x3 and moves all extremities Cranial nerves: Yes Equal, round and reactive pupils present Extrem: General: Yes normal to inspection Right upper extremity: normal to inspection Left upper extremity: normal to inspection Right lower extremity: normal to inspection Left lower extremity: normal to inspection Psych: Appearance: disheveled Mental Status: mental status grossly normal Speech and movement: Slowed speech present (Psych) Affect: Labile affect present and Sad affect present Attitude: Guarded attititude/behavior present and Avoids eye contact (attititude/behavior) Thought process: Normal thought process present Thought content: Suicidality present Insight: Limited insight present (Psych) Judgement: Limited judgement present (Psych) Course Reevaluation(s) Reevaluation #1: DR. Esposito's progress note; 02/10/2025. 10;00. VSS, no events overnight reported by by the nurse, under section 12, continue physician observation. bed search is underway. Time: 10:00 Reevaluation #2: Discontinue physician observation, patient has been admitted to . Time: 12:53 Medications Administered Discontinued Medications Generic Name Dose Route Start Last Admin Trade Name Freq PRN Reason Stop Dose Admin Acetaminophen 975 mg 02/10/25 03:23 02/10/25 03:38 Acetaminophen 325 Mg Tablet PO 02/10/25 03:24 975 mg ONCE ONE Administration Lorazepam 1 mg 02/10/25 03:23 02/10/25 03:38 Lorazepam 1 Mg Tablet PO 02/10/25 03:24 1 mg ONCE ONE Administration Melatonin 6 mg 02/10/25 03:23 02/10/25 03:38 Melatonin 3 Mg Tablet PO 02/10/25 03:24 6 mg ONCE ONE Administration Medical Decision Making Medical Decision Making MDM Narrative: This is a 64-year-old female, with a past medical history of bipolar 2, depression, hypertension, hyperlipidemia, CHF, COPD, CVA, who presents emergency department on section 12 for evaluation of suicidal ideation with plan to walk into traffic. On arrival, blood pressure mildly elevated 145/78, oxygen saturation 94% on room air. She is speaking full sentences under no acute distress. Differential diagnoses include depression, anxiety, suicidal ideation, homicidal ideation. Will obtain labs to rule out any electrolyte derangement, as well as urinalysis. 6:11 PM 02/09/2025 (Priyanka Vila PA-C): Labs returned, she has no leukocytosis, stable H&H, chemistry revealing no significant electrolyte derangement. Urine with high specific gravity, hematuria, small leuk esterases. She has no urinary symptoms, this urine appears to be contaminated therefore we will wait for urine culture to return. Awaiting care team consult. Differential Diagnosis Differential Diagnoses: The differential diagnosis associated with the presentation includes See above Admission/Observation Consideration of admission/observation: Escalation of care including admission/observation considered Lab Data [facility] Lab Attestation statement: I reviewed the patient's lab results. See MDM and course 02/09/25 17:02 02/09/25 17:02 Labs: Lab Results 02/09/25 02/09/25 Range/Units 16:24 17:02 WBC 8.9 (4.8-10.8) X10*3/uL RBC 4.40 (4.20-5.50) X10*6/uL Hgb 14.6 (12.0-16.0) g/dl Hct 42.3 (37.0-47.0) % MCV 96.1 (80.0-98.0) fL MCH 33.2 H (27.0-33.0) pg MCHC 34.5 (31.0-35.0) g/dl RDW 14.9 (11.0-16.0) % Plt Count 354 (160-400) X10*3/uL MPV 9.5 (9.4-12.3) fL Immature Gran % (Auto) 0.1 (0.0-0.4) % Neut % (Auto) 89.0 H (45-73) % Lymph % (Auto) 10.2 L (20-40) % [place] % (Auto) 0.4 L (2-11) % Eos % (Auto) 0.0 (0-4) % Baso % (Auto) 0.3 (0-2) % Lymph # (Auto) 0.9 L (1.2-4.9) X10*3/uL [place] # (Auto) 0.0 L (0.1-1.2) X10*3/uL Eos # (Auto) 0.0 (0.0-0.4) X10*3/uL Baso # (Auto) 0.0 (0.0-0.2) X10*3/uL Abs Immat Gran (auto) 0.01 (0.00-0.03) X10*3/uL Absolute Neuts (auto) 7.9 (2.0-8.3) x10*3/uL Absolute Nucleated RBC 0.000 (0.0-0.012) X10*3/uL Nucleated RBC % (auto) 0.0 (0.0-0.2) /100WBC Sodium 138 (135-145) mmol/L Potassium 4.6 (3.3-5.1) mmol/L Chloride 104 (96-108) mmol/L Carbon Dioxide 26 (22-29) mmol/L Anion Gap 13 (12-20) BUN 20 H (9-16) mg/dL Creatinine 1.08 (0.5-1.4) mg/dL Estim Creat Clear Calc 70.9 Estimated GFR 51 Random Glucose 140 H (60-115) mg/dL Calcium 9.9 (8.4-10.2) mg/dL Total Bilirubin 0.3 (0.0-1.0) mg/dL AST 26 (5-31) U/L ALT 18 (0-31) U/L Alkaline Phosphatase 104 (39-117) U/L Total Protein 7.3 (6.5-8.0) g/dL Albumin 4.6 (3.5-5.0) g/dL Urine Color Dark Yellow Urine Appearance Clear Urine pH 6.0 (5.0-9.0) Ur Specific [place] >= 1.030 H (1.005-1.025) Urine Protein 30 (1+) H (Neg-Trace) mg/dL Urine Glucose (UA) Negative (Negative) mg/dL Urine Ketones Trace (Negative) mg/dL Urine Blood Moderate (2+) H (Negative) Urine Nitrite Negative (Negative) Ur Leukocyte Esterase Small (1+) H (Negative) Urine RBC >20 H (0-2) /HPF Urine WBC 0-5 (0-5) /HPF Ur Squamous Epith Cells >20 (0-2) /HPF Urine Bacteria Trace (None Seen) Hyaline Casts 0-2 (0-2) /LPF Urine Opiates Screen Not Detected (Not Detect) Ur Buprenorphine Scrn Not Detected (Not Detect) ng/mL Ur Oxycodone Screen Not Detected (Not Detect) ng/mL Urine Methadone Screen Not Detected (Not Detect) ng/mL Urine Fentanyl Screen Not Detected (Not Detect) Ur Barbiturates Screen Not Detected (Not Detect) Ur Phencyclidine Scrn Not Detected (Not Detect) Ur Amphetamines Screen Not Detected (Not Detect) U Benzodiazepines Scrn Not Detected (Not Detect) Urine Cocaine Screen Not Detected (Not Detect) U Marijuana (THC) Screen POSITIVE H (Not Detect) Ethyl Alcohol < 10 mg/dL Discharge Plan Discharge Clinical Impression: Suicidal ideation Interventions: [place]-Suicide Risk Severity Scale Last Done: 02/09/25 16:27
[2025-02-09 16:28] VITALS: PULSE 72; RESP 20; O2SAT 96
[2025-02-09 16:32] LABS: Appearance Urine Clear; Glucose Urine UA Negative (Negative); PH 6.0 (5.0-9.0); Specific Gravity - Urine >= 1.030 (1.005-1.025); UMIC TRIGGER UACC YES
[2025-02-09 16:43] LABS: Cannabinoid Screen Urine POSITIVE (Not Detect)
--- OUTSIDE RECORDS SUMMARY | 2025-02-09 16:46 | XMS_ITS | Clinical Summary ---
Author Organization [employer] [facility] Address [address] [place] [address] Care Team Providers Care Director Safety Name Role Phone Unavailable Primary Care Provider [...] Panel 1962 SDOH Screening 1960 Sigmoidoscopy 1962 Disability Screening 1962 Meningococcal B Vaccine (1 of 5 - Increased Risk) 1972 Alcohol/Substance Use Screening [...] 08/03/2020, Additional history exists Influenza Vaccine (#1) 2025 , 04/04/2022, 04/29/2021, Additional history exists DTaP/Tdap/Td [...] Most Recently Relevant to Health Maintenance Insurance [facility] MEDICAID STAND ADULT
--- OUTSIDE RECORDS SUMMARY | 2025-02-09 16:46 | XMS_ITS | Clinical Summary ---
Author Organization [facility] Address [address] [place] [address] Care Team Providers Care Residential Leasing Manager Name Role Phone Eleazar Gleason MD Primary Care Provider [phone] Allergies Active Allergy Reactions Criticality Noted Date [...] 88 04/18/2024 11:10 AM EDT Temperature 36.3 C (97.3 F) 04/18/2024 11:10 AM EDT Respiratory Rate 18 04/18/2024 11:10 AM EDT [...] or Tdap) 05/12/2018 05/12/2008 Influenza Vaccine (#1) 2025 3, 04/04/2022, 04/29/2021, Additional history exists RSV [...] age to complete this topic Care Teams Residential Leasing Manager Relationship Specialty Start Date End Date Eleazar Gleason MD PCP - General Rheumatology 04/11/24
[2025-02-09 16:49] LABS: UACC Culture Trigger YES
[2025-02-09 17:08] LABS: MANUAL DIFF FLAG NO
[2025-02-09 17:26] LABS: Alanine Aminotransferase 18 U/L (0-31); Albumin Level 4.6 g/dL (3.5-5.0); Alkaline Phosphatase 104 U/L (39-117); Anion Gap 13 (12-20); Aspartate Amino Transferase 26 U/L (5-31); Blood Urea Nitrogen 20 mg/dL (9-16); Calcium 9.9 mg/dL (8.4-10.2); Carbon Dioxide 26 mmol/L (22-29); Chloride 104 mmol/L (96-108); Creatinine Clr Calc Pharmacy 70.9; Estimated Glomerular Filt Rate 51; Potassium 4.6 mmol/L (3.3-5.1); Sodium 138 mmol/L (135-145); Total Protein 7.3 g/dL (6.5-8.0)
[2025-02-09 17:38] LABS: Hematocrit 42.3 % (37.0-47.0); Hemoglobin 14.6 g/dl (12.0-16.0); Imm Gran Abs Auto 0.01 X10*3/uL (0.00-0.03); Imm Gran Pct Auto 0.1 % (0.0-0.4); Lymphocytes Absolute Auto 0.9 X10*3/uL (1.2-4.9); Mean Corpuscular HGB Conc 34.5 g/dl (31.0-35.0); Mean Corpuscular Hemoglobin 33.2 pg (27.0-33.0); Mean Corpuscular Volume 96.1 fL (80.0-98.0); NRBC Abs Auto 0.000 X10*3/uL (0.0-0.012); NRBC Pct Auto 0.0 /100WBC (0.0-0.2); Platelet Count 354 X10*3/uL (160-400); Red Blood Count 4.40 X10*6/uL (4.20-5.50); White Blood Count 8.9 X10*3/uL (4.8-10.8)
--- NOTE | 2025-02-09 19:22 | PC.NURSE ---
Addendum entered by Savita Spence RN 02/09/25 20:13: attempted pt med rec, pt unable to state the names of medication she takes, states there is a list of the meds she takes but no list was found in chart or belongings. Spoke with pharmacy they will send a lens coating technician down to attempt to med rec. Original Note: assumed care for pt at this time. pt awake and alert in bed watching tv, calm and cooperative. removed pts dinner tray from room per request, pt noted to eat 100% of dinner. pts needs met at this time. plan of care ongoing.
--- NOTE | 2025-02-10 | ECG_ITS ---
Test Reason : RO PROLONG QTC Blood Pressure : */* mmHG Vent. Rate : 78 BPM Atrial Rate : 78 BPM P-R Int : 172 ms QRS Dur : 92 ms QT Int : 398 ms P-R-T Axes : 72 80 63 degrees QTcB Int : 453 ms Normal sinus rhythm Normal ECG When compared with ECG of 17-Oct-2024 12:22, No significant change was found Referred By: Priyanka Vila Electronically Signed By: KAN HINES MD
--- NOTE | 2025-02-10 07:10 | PC.NURSE ---
Assumed care of patient at 0645, patient appears to be in no apparent this am, calm and cooperative, ambulated to bathroom with steady gait. Continue plan of care for IPLOC
--- NOTE | 2025-02-10 08:08 | PC.NURSE ---
Attempted to call [facility] in [place] to verify patient medications ([phone]), spoke with customer service receptionist who stated nurse is Naila and she will return our call to verify medications after a meeting. this RN left message on voicemail with callback number
--- NOTE | 2025-02-10 09:37 | MHC.CARE ---
Pt will be a bedsearch
--- NOTE | 2025-02-10 11:22 | MHC.CARE ---
When pt is accepted to a facility, or discharged please contact her family preservation caseworker Ms. Jennifer Pacheco ([phone]) at the [email or web address] Program.
--- NOTE | 2025-02-10 11:45 | PC.NURSE ---
RE: Med Rec This RN completed pts med rec by calling [facility] and speaking with LOUISE Yoo. All medications and dosages reviewed. Pt verbalizes that she took her medications yesterday
[2025-02-10 14:01] VITALS: BP 120/93; PULSE 72; RESP 18; TEMP 36.4; O2SAT 93; BMI 35.9
[2025-02-10] MEDS: Metoprolol Succinate ER 25 MG TAB.ER.24H PO (14:12)
[2025-02-10] MEDS: Ferrous Sulfate 324 MG TABLET.DR PO (14:13)
--- NOTE | 2025-02-10 15:37 | PC.ADMIT ---
Lucila arrived from the pod at 1315 on a CV for SI. Per the crisis report she was planning to walk into traffic or overdose on her medications. Her son recently moved out and she is estranged from her other children, who do not allow her to see her grandkids. She lives in an apartment in [place] specifically for elderly and disabled residents. Her medical history includes bipolar 2, depression, hypertension, hyperlipidemia, CHF, COPD, and CVA x2. Tox screen was positive for THC only. She states that she uses THC rarely in the form of edibles. She is a smoker for the past 35 years and uses the nicotine patch while in the hospital. She uses a walker and intermittent oxygen, necessitating 5 minute checks. Her own walker is not currently here and she is unable to use our oxygen and walker at the same time. She has an oxygen concentrator in her room. She is a fall risk, with last reported fall about 2 months ago. She has recently lost about 30 lbs due to low appetite and difficulty with chewing. During her last fall there was likely some damage to her dentures. She was pleasant throughout the admission process with slow calm speech and some latency between hearing and answering questions. She is ambivalent about being in the hospital and states ?maybe I should just go home then? whenever a challenge arises like not being able to fit the walker through the bathroom door. She is adherent to her many medications at home and has many services in place including [facility] who provides meds daily to prevent OD, homemaker, and an aid that helps her shower. She works with [employer] for the majority of her services.
[2025-02-10] MEDS: Fluticasone/Umeclidinium/Vilanterol 100/62.5/25 BLST.W.DEV 1 PUFF INHALE (17:39)
[2025-02-10] MEDS: traZODone HCL 25 MG HALFTAB PO (17:39)
[2025-02-10 20:00] VITALS: BP 124/86; PULSE 86; RESP 16; TEMP 36.6; O2SAT 95
[2025-02-10] MEDS: Potassium Chloride ER 10 MEQ TABLET.ER PO (20:39)
[2025-02-11 08:40] VITALS: BP 132/80; PULSE 73; RESP 18; O2SAT 93
[2025-02-11] MEDS: Ferrous Sulfate 324 MG TABLET.DR PO (08:44)
[2025-02-11] MEDS: Metoprolol Succinate ER 25 MG TAB.ER.24H PO (08:44)
[2025-02-11] MEDS: Potassium Chloride ER 10 MEQ TABLET.ER PO ×2 (08:44→21:22)
[2025-02-11] MEDS: buPROPion HCl XL 300 MG TAB.ER.24H PO (08:44)
[2025-02-11] MEDS: traZODone HCL 25 MG HALFTAB PO ×3 (08:44→17:49)
[2025-02-11 08:54] LABS: Cholesterol 134 mg/dL (<200); HDL Cholesterol 51 mg/dL (>40); Magnesium 1.9 mg/dL (1.6-2.6); Triglycerides 150 mg/dL (<150)
[2025-02-11] MEDS: Fluticasone/Umeclidinium/Vilanterol 100/62.5/25 BLST.W.DEV 1 PUFF INHALE (08:54)
[2025-02-11 09:02] LABS: Hemoglobin A1C 142.4877 umol/L; Total Hemoglobin (HGBA1C) 3928.6537 umol/L
[2025-02-11 09:08] LABS: Free T4 (Free Thyroxine) 0.81 ng/dL (0.71-1.85); Thyroid Stimulating Hormone 1.96 uIU/mL (0.32-4.0)
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
[2025-02-11 09:26] LABS: Folate 6.3 ng/mL (> or = 4.0); Vitamin B12 354 pg/mL (200-900)
[2025-02-11 20:00] VITALS: BP 118/66; PULSE 74; RESP 18; TEMP 36.3; O2SAT 93
[2025-02-11 21:17] VITALS: BP 118/66
[2025-02-12 08:00] VITALS: BP 109/53; O2SAT 92
[2025-02-12] MEDS: traZODone HCL 25 MG HALFTAB PO ×3 (08:34→17:58)
[2025-02-12] MEDS: buPROPion HCl XL 150 MG TAB.ER.24H 450 MG PO (08:35)
[2025-02-12] MEDS: Ferrous Sulfate 324 MG TABLET.DR PO (08:36)
[2025-02-12] MEDS: Potassium Chloride ER 10 MEQ TABLET.ER PO ×2 (08:36→20:23)
[2025-02-12] MEDS: Fluticasone/Umeclidinium/Vilanterol 100/62.5/25 BLST.W.DEV 1 PUFF INHALE (08:42)
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
[2025-02-12 20:00] VITALS: BP 134/89; PULSE 72; RESP 18; TEMP 36.3; O2SAT 95
[2025-02-12 20:22] VITALS: BP 134/89
[2025-02-13 08:00] VITALS: BP 110/52; PULSE 83; TEMP 36.4; O2SAT 97
[2025-02-13] MEDS: buPROPion HCl XL 150 MG TAB.ER.24H 450 MG PO (09:00)
[2025-02-13] MEDS: Metoprolol Succinate ER 25 MG TAB.ER.24H PO (09:00)
[2025-02-13] MEDS: Ferrous Sulfate 324 MG TABLET.DR PO (09:01)
[2025-02-13] MEDS: traZODone HCL 25 MG HALFTAB PO ×3 (09:01→16:16)
[2025-02-13] MEDS: Potassium Chloride ER 10 MEQ TABLET.ER PO ×2 (09:01→20:46)
[2025-02-13] MEDS: Fluticasone/Umeclidinium/Vilanterol 100/62.5/25 BLST.W.DEV 1 PUFF INHALE (09:02)
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
[2025-02-13 20:41] VITALS: BP 124/100; PULSE 91; RESP 16; TEMP 36.2; O2SAT 93
[2025-02-13 20:47] VITALS: BP 124/100
[2025-02-14 08:57] VITALS: BP 126/73; PULSE 67; RESP 16; TEMP 36.2; O2SAT 93
[2025-02-14] MEDS: Metoprolol Succinate ER 25 MG TAB.ER.24H PO (08:59)
[2025-02-14] MEDS: Ferrous Sulfate 324 MG TABLET.DR PO (08:59)
[2025-02-14] MEDS: Fluticasone/Umeclidinium/Vilanterol 100/62.5/25 BLST.W.DEV 1 PUFF INHALE (08:59)
[2025-02-14] MEDS: buPROPion HCl XL 150 MG TAB.ER.24H 450 MG PO (09:00)
[2025-02-14] MEDS: traZODone HCL 25 MG HALFTAB PO ×3 (09:00→17:17)
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
[2025-02-14 20:00] VITALS: BP 107/61; PULSE 73; RESP 16; TEMP 37; O2SAT 95
[2025-02-14] MEDS: Potassium Chloride ER 10 MEQ TABLET.ER PO (21:13)
[2025-02-15 08:00] VITALS: BP 120/75; PULSE 66; RESP 16; TEMP 36.4; O2SAT 94
[2025-02-15] MEDS: Ferrous Sulfate 324 MG TABLET.DR PO (08:30)
[2025-02-15] MEDS: traZODone HCL 25 MG HALFTAB PO ×3 (08:31→16:12)
[2025-02-15] MEDS: buPROPion HCl XL 150 MG TAB.ER.24H 450 MG PO (08:31)
[2025-02-15] MEDS: Metoprolol Succinate ER 25 MG TAB.ER.24H PO (08:32)
[2025-02-15] MEDS: Fluticasone/Umeclidinium/Vilanterol 100/62.5/25 BLST.W.DEV 1 PUFF INHALE (08:38)
[2025-02-15 11:28] LABS: Anion Gap 15 (12-20); Blood Urea Nitrogen 14 mg/dL (9-16); Calcium 9.8 mg/dL (8.4-10.2); Carbon Dioxide 27 mmol/L (22-29); Chloride 102 mmol/L (96-108); Creatinine Clr Calc Pharmacy 80.4; Estimated Glomerular Filt Rate > 60; Potassium 4.4 mmol/L (3.3-5.1); Sodium 140 mmol/L (135-145)
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
[2025-02-15 19:44] VITALS: BP 128/76; PULSE 74; TEMP 36.4; O2SAT 94
[2025-02-15] MEDS: Potassium Chloride ER 10 MEQ TABLET.ER PO (21:58)
[2025-02-16 08:00] VITALS: BP 123/60; PULSE 60; RESP 16; TEMP 36.2; O2SAT 90
[2025-02-16] MEDS: Potassium Chloride ER 10 MEQ TABLET.ER PO ×2 (08:56→21:13)
[2025-02-16] MEDS: buPROPion HCl XL 150 MG TAB.ER.24H 450 MG PO (08:57)
[2025-02-16] MEDS: traZODone HCL 25 MG HALFTAB PO ×3 (08:57→17:49)
[2025-02-16] MEDS: Metoprolol Succinate ER 25 MG TAB.ER.24H PO (08:57)
[2025-02-16] MEDS: Ferrous Sulfate 324 MG TABLET.DR PO (08:57)
[2025-02-16] MEDS: Fluticasone/Umeclidinium/Vilanterol 100/62.5/25 BLST.W.DEV 1 PUFF INHALE (09:31)
[2025-02-16 09:46] VITALS: O2SAT 94
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
[2025-02-16 20:00] VITALS: BP 118/68; PULSE 70; RESP 16; TEMP 36.6; O2SAT 94
[2025-02-16 21:10] VITALS: BP 118/68
[2025-02-17 08:00] VITALS: BP 118/73; PULSE 68; TEMP 36.2; O2SAT 92
[2025-02-17] MEDS: buPROPion HCl XL 150 MG TAB.ER.24H 450 MG PO (08:57)
[2025-02-17] MEDS: Metoprolol Succinate ER 25 MG TAB.ER.24H PO (08:58)
[2025-02-17] MEDS: Ferrous Sulfate 324 MG TABLET.DR PO (08:58)
[2025-02-17] MEDS: Potassium Chloride ER 10 MEQ TABLET.ER PO ×2 (08:58→20:32)
[2025-02-17] MEDS: Fluticasone/Umeclidinium/Vilanterol 100/62.5/25 BLST.W.DEV 1 PUFF INHALE (08:59)
[2025-02-17] MEDS: traZODone HCL 25 MG HALFTAB PO ×3 (08:59→17:49)
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
[2025-02-17 13:00] VITALS: O2SAT 91
[2025-02-17 13:15] VITALS: O2SAT 95
[2025-02-17 20:00] VITALS: BP 121/59; PULSE 63; RESP 16; TEMP 36.3; O2SAT 97
[2025-02-17 20:27] VITALS: BP 121/59
[2025-02-18 08:00] VITALS: BP 117/65; PULSE 60; RESP 16; TEMP 36.3; O2SAT 94
[2025-02-18] MEDS: Fluticasone/Umeclidinium/Vilanterol 100/62.5/25 BLST.W.DEV 1 PUFF INHALE (09:52)
[2025-02-18] MEDS: Ferrous Sulfate 324 MG TABLET.DR PO (09:52)
[2025-02-18] MEDS: buPROPion HCl XL 150 MG TAB.ER.24H 450 MG PO (09:52)
[2025-02-18] MEDS: Potassium Chloride ER 10 MEQ TABLET.ER PO ×2 (09:53→20:57)
[2025-02-18] MEDS: Metoprolol Succinate ER 25 MG TAB.ER.24H PO (09:53)
[2025-02-18] MEDS: traZODone HCL 25 MG HALFTAB PO ×3 (09:53→17:33)
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
[2025-02-18 12:29] LABS: Vitamin D 25-OH, D2 <4 ng/mL; Vitamin D 25-OH, D3 47 ng/mL; Vitamin D 25-OH, Total 47 ng/mL (30-100)
[2025-02-18 20:58] VITALS: BP 156/107
[2025-02-18 23:35] VITALS: BP 156/107; PULSE 96; RESP 16; TEMP 36.4; O2SAT 96
[2025-02-19 07:00] VITALS: BMI 36.3
[2025-02-19 08:00] VITALS: BP 140/63; PULSE 65; RESP 16; TEMP 36.4; O2SAT 97
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
[2025-02-19] MEDS: buPROPion HCl XL 150 MG TAB.ER.24H 450 MG PO (09:55)
[2025-02-19] MEDS: traZODone HCL 25 MG HALFTAB PO ×2 (09:55→12:25)
[2025-02-19] MEDS: Ferrous Sulfate 324 MG TABLET.DR PO (09:56)
[2025-02-19] MEDS: Metoprolol Succinate ER 25 MG TAB.ER.24H PO (09:56)
[2025-02-19] MEDS: Potassium Chloride ER 10 MEQ TABLET.ER PO ×2 (09:57→20:17)
[2025-02-19] MEDS: Fluticasone/Umeclidinium/Vilanterol 100/62.5/25 BLST.W.DEV 1 PUFF INHALE (09:58)
[2025-02-20 08:00] VITALS: BP 127/72; PULSE 63; RESP 16; TEMP 36.2; O2SAT 94
[2025-02-20] MEDS: traZODone HCL 25 MG HALFTAB PO ×2 (09:22→17:36)
[2025-02-20] MEDS: buPROPion HCl XL 150 MG TAB.ER.24H 450 MG PO (09:23)
[2025-02-20 09:24] VITALS: BP 127/62; PULSE 63
[2025-02-20] MEDS: Ferrous Sulfate 324 MG TABLET.DR PO (09:24)
[2025-02-20] MEDS: Metoprolol Succinate ER 25 MG TAB.ER.24H PO (09:24)
[2025-02-20] MEDS: Fluticasone/Umeclidinium/Vilanterol 100/62.5/25 BLST.W.DEV 1 PUFF INHALE (09:44)
[2025-02-20] MEDS: Potassium Chloride ER 10 MEQ TABLET.ER PO ×2 (09:45→21:34)
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
--- NOTE | 2025-02-20 18:38 | PC.NURSE ---
Lucila is a 64 year old female being treated for Bipolar disorder and SI with a plan to walk in front of traffic who was transferred from [facility] M5 to [facility] S1 on 02/20/25 at 1800. Upon arrival to the unit pt displayed a constricted affect with a calm, pleasant mood. Pt VS WNL and skin check was unremarkable. Pt has COPD and is currently utilizing 3L during the day and 4L at bedtime. Pt is on 5 minute checks d/t O2 tank and personal rolliad walker. Pt is in the milieu sitting by herself at this time.
[2025-02-20 20:00] VITALS: BP 162/71; PULSE 73; RESP 17; TEMP 36.6; O2SAT 94
[2025-02-20 21:33] VITALS: BP 162/71
[2025-02-21 09:00] VITALS: BP 114/57; PULSE 70; RESP 18; TEMP 36.5; O2SAT 94
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
[2025-02-21] MEDS: Fluticasone/Umeclidinium/Vilanterol 100/62.5/25 BLST.W.DEV 1 PUFF INHALE (09:21)
[2025-02-21] MEDS: buPROPion HCl XL 150 MG TAB.ER.24H 450 MG PO (09:22)
[2025-02-21] MEDS: traZODone HCL 25 MG HALFTAB PO ×3 (09:23→16:21)
[2025-02-21] MEDS: Ferrous Sulfate 324 MG TABLET.DR PO (09:23)
[2025-02-21] MEDS: Metoprolol Succinate ER 25 MG TAB.ER.24H PO (09:23)
[2025-02-21] MEDS: Potassium Chloride ER 10 MEQ TABLET.ER PO ×2 (09:24→20:52)
[2025-02-21 20:00] VITALS: BP 109/56; PULSE 68; RESP 18; TEMP 36.2; O2SAT 98
[2025-02-22 08:25] VITALS: BP 106/59; PULSE 66; RESP 16; TEMP 36.3; O2SAT 95
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
[2025-02-22] MEDS: Fluticasone/Umeclidinium/Vilanterol 100/62.5/25 BLST.W.DEV 1 PUFF INHALE (09:14)
[2025-02-22] MEDS: buPROPion HCl XL 150 MG TAB.ER.24H 450 MG PO (09:15)
[2025-02-22] MEDS: Potassium Chloride ER 10 MEQ TABLET.ER PO ×2 (09:17→20:46)
[2025-02-22] MEDS: Metoprolol Succinate ER 25 MG TAB.ER.24H PO (09:18)
[2025-02-22] MEDS: Ferrous Sulfate 324 MG TABLET.DR PO (09:18)
[2025-02-22] MEDS: traZODone HCL 25 MG HALFTAB PO ×3 (09:19→16:24)
[2025-02-22 20:00] VITALS: BP 105/65; PULSE 65; RESP 18; TEMP 36.2; O2SAT 95
[2025-02-23 08:00] VITALS: BP 140/71; PULSE 66; RESP 16; TEMP 35.9; O2SAT 96
[2025-02-23] MEDS: Potassium Chloride ER 10 MEQ TABLET.ER PO ×2 (08:51→19:37)
[2025-02-23 08:52] VITALS: BP 140/71
[2025-02-23] MEDS: Metoprolol Succinate ER 25 MG TAB.ER.24H PO (08:52)
[2025-02-23] MEDS: buPROPion HCl XL 150 MG TAB.ER.24H 450 MG PO (08:53)
[2025-02-23] MEDS: Ferrous Sulfate 324 MG TABLET.DR PO (08:53)
[2025-02-23] MEDS: traZODone HCL 25 MG HALFTAB PO ×3 (08:54→16:46)
[2025-02-23] MEDS: Fluticasone/Umeclidinium/Vilanterol 100/62.5/25 BLST.W.DEV 1 PUFF INHALE (08:55)
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
[2025-02-23] MEDS: Throat Lozenge, Medicated LOZENGE 1 LOZENGE MUCOUS MEM ×2 (12:03→17:15)
[2025-02-23 19:35] VITALS: BP 123/60; PULSE 65; RESP 16; TEMP 36.3; O2SAT 95
[2025-02-23 19:38] VITALS: BP 123/60
[2025-02-24 08:20] VITALS: BP 111/75; PULSE 69; RESP 16; TEMP 36.4; O2SAT 95
[2025-02-24] MEDS: Albuterol Sulfate 90 MCG 8 GM INHALER 2 PUFF INHALE (09:09)
[2025-02-24] MEDS: buPROPion HCl XL 150 MG TAB.ER.24H 450 MG PO (09:12)
[2025-02-24] MEDS: Ferrous Sulfate 324 MG TABLET.DR PO (09:13)
[2025-02-24] MEDS: Metoprolol Succinate ER 25 MG TAB.ER.24H PO (09:15)
[2025-02-24] MEDS: Potassium Chloride ER 10 MEQ TABLET.ER PO ×2 (09:16→20:11)
[2025-02-24] MEDS: traZODone HCL 25 MG HALFTAB PO ×3 (09:17→16:40)
[2025-02-24] MEDS: Fluticasone/Umeclidinium/Vilanterol 100/62.5/25 BLST.W.DEV 1 PUFF INHALE (10:21)
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
[2025-02-24 16:24] VITALS: BP 136/76; PULSE 63; RESP 16; TEMP 36.4; O2SAT 96
--- NOTE | 2025-02-24 16:27 | PC.NURSE ---
Pt c/o chest pain 03/04. Pt is asymptomatic and denies nausea, L arm and jaw pain, or dizziness. Pt reports feeling anxious. VS WNL. Pt stated I believe this is anxiety. Provider notified via [employer] pending response.
[2025-02-24 19:54] VITALS: BP 107/62; PULSE 64; RESP 16; TEMP 36.8; O2SAT 92
[2025-02-24 19:58] VITALS: BP 107/62
[2025-02-25 08:00] VITALS: BP 133/70; PULSE 61; RESP 18; TEMP 36.5; O2SAT 95
[2025-02-25] MEDS: Fluticasone/Umeclidinium/Vilanterol 100/62.5/25 BLST.W.DEV 1 PUFF INHALE (08:46)
[2025-02-25] MEDS: traZODone HCL 25 MG HALFTAB PO ×3 (08:50→16:53)
[2025-02-25] MEDS: buPROPion HCl XL 150 MG TAB.ER.24H 450 MG PO (08:50)
[2025-02-25] MEDS: Metoprolol Succinate ER 25 MG TAB.ER.24H PO (08:51)
[2025-02-25] MEDS: Ferrous Sulfate 324 MG TABLET.DR PO (08:52)
[2025-02-25] MEDS: Potassium Chloride ER 10 MEQ TABLET.ER PO ×2 (08:53→20:20)
--- NOTE | 2025-02-25 10:43 | MHC.CLN ---
NUTRITION REPORTED HX 30# WEIGHT LOSS. REVIEW OF WEIGHT HX SHOWS VARIABLE WEIGHT HX WITH LIKELY REPORTED RATHER THAN ACTUAL WEIGHT. CURRENT NLZBTT=659 KG, BMI=36.3. DIET=REGULAR. PO MOST MEALS AT LEAST 50%. NO ADDITIONAL NUTRITION INTERVENTIONS AT THIS TIME.
[2025-02-25] MEDS: Albuterol Sulfate 90 MCG 8 GM INHALER 2 PUFF INHALE (11:26)
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
[2025-02-25 20:09] VITALS: BP 112/58; PULSE 67; RESP 18; TEMP 36.8; O2SAT 95
[2025-02-25 20:21] VITALS: BP 112/58
[2025-02-26 08:00] VITALS: BP 115/65; PULSE 70; RESP 18; TEMP 36.5; O2SAT 91
[2025-02-26] MEDS: Fluticasone/Umeclidinium/Vilanterol 100/62.5/25 BLST.W.DEV 1 PUFF INHALE (09:01)
[2025-02-26] MEDS: buPROPion HCl XL 150 MG TAB.ER.24H 450 MG PO (09:02)
[2025-02-26 09:03] VITALS: BP 115/65; PULSE 70
[2025-02-26] MEDS: Metoprolol Succinate ER 25 MG TAB.ER.24H PO (09:03)
[2025-02-26] MEDS: Potassium Chloride ER 10 MEQ TABLET.ER PO (09:03)
[2025-02-26] MEDS: Ferrous Sulfate 324 MG TABLET.DR PO (09:03)
[2025-02-26] MEDS: traZODone HCL 25 MG HALFTAB PO (09:03)
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
--- NOTE | 2025-02-26 11:14 | PC.NURSE ---
Patient was aware of her discharge today, verbalized readiness for discharge. D/C information, appointments list with medications list given to the patient. Lucila took her belongings with her. Left he unit at 11:10 via [facility] transport.
== END 2025-02-26 11:10 | disposition home or self-care (01) | DRG 885 ==
LOC: HO.ED 02-10 12:45 → HO.PM5 02-10 12:51 → HO.PGERI 02-20 18:28
PROVIDERS: Nurse Practitioner Family; Admitting Provider Clinical Nurse Specialist Psychiatric/Mental Health, Adult; Emergency Provider Emergency Medicine; Visit Provider Clinical Nurse Specialist Psychiatric/Mental Health, Adult
DX: F31.81 Bipolar II disorder (principal); R45.851 Suicidal ideations; J44.1 Chronic obstructive pulmonary disease with (acute) exacerbation; G31.84 Mild cognitive impairment of uncertain or unknown etiology; I11.0 Hypertensive heart disease with heart failure; E78.5 Hyperlipidemia, unspecified; I50.9 Heart failure, unspecified; F43.10 Post-traumatic stress disorder, unspecified; F12.90 Cannabis use, unspecified, uncomplicated; F17.210 Nicotine dependence, cigarettes, uncomplicated; Z71.6 Tobacco abuse counseling; Z79.82 Long term (current) use of aspirin; Z79.899 Other long term (current) drug therapy
CPT/HCPCS: 36415; 71045; 71120; 73502; 80048; 80053; 80061; 80307; 81001; 82306; 82607; 82746; 83036; 83735; 84439; 84443; 85025; 87086; 93005; 99285; S9485

== ENCOUNTER → 2025-02-10 10:37 | Outpatient (BNV) | payer MEDICARE, MEDICAID, SELFPAY | PROVIDERS: Emergency Provider Emergency Medicine; Visit Provider Internal Medicine Cardiovascular Disease | DX: Z13.6 Encounter for screening for cardiovascular disorders (principal) | CPT/HCPCS: 93010 ==

== ENCOUNTER 2025-02-10 12:07 | Outpatient (BNV) | payer OTHER, SELFPAY | END 2025-02-15 13:25 | PROVIDERS: Admitting Provider Clinical Nurse Specialist Psychiatric/Mental Health, Adult; Emergency Provider Emergency Medicine; Visit Provider Radiology Diagnostic Radiology | DX: M25.552 Pain in left hip (principal); R07.2 Precordial pain; R91.8 Other nonspecific abnormal finding of lung field; J98.11 Atelectasis; W19.XXXA Unspecified fall, initial encounter | CPT/HCPCS: 71045; 71120; 73502 ==

== ENCOUNTER → 2025-02-10 12:07 | Outpatient (BNV) | payer OTHER, SELFPAY | PROVIDERS: Admitting Provider Clinical Nurse Specialist Psychiatric/Mental Health, Adult; Emergency Provider Emergency Medicine; Visit Provider Nurse Practitioner Family | DX: J44.9 Chronic obstructive pulmonary disease, unspecified (principal) | CPT/HCPCS: 99222 ==

== ENCOUNTER → 2025-02-10 12:07 | Outpatient (BNV) | payer OTHER, SELFPAY | PROVIDERS: Admitting Provider Clinical Nurse Specialist Psychiatric/Mental Health, Adult; Emergency Provider Emergency Medicine; Visit Provider Nurse Practitioner Family | DX: F31.81 Bipolar II disorder (principal); R45.851 Suicidal ideations; F43.11 Post-traumatic stress disorder, acute; F12.90 Cannabis use, unspecified, uncomplicated | CPT/HCPCS: 90792; 99231; 99232 ==

== ENCOUNTER → 2025-02-10 12:07 | Outpatient (BNV) | payer OTHER, SELFPAY | PROVIDERS: Admitting Provider Clinical Nurse Specialist Psychiatric/Mental Health, Adult; Emergency Provider Emergency Medicine; Visit Provider Psychiatry & Neurology Psychiatry | DX: F31.81 Bipolar II disorder (principal); J44.9 Chronic obstructive pulmonary disease, unspecified; F43.10 Post-traumatic stress disorder, unspecified; F12.90 Cannabis use, unspecified, uncomplicated; G31.84 Mild cognitive impairment of uncertain or unknown etiology | CPT/HCPCS: 99232 ==

== ENCOUNTER 2025-03-30 03:23 | Emergency (ER) | payer OTHER, SELFPAY ==
[2025-03-30] VITALS (8 sets, daily range): BP systolic 113–157; BP diastolic 64–91; PULSE 57–80; RESP 15–20; TEMP 36.1–37.1; O2SAT 90–97; BMI 33.5
--- NOTE | ~2025-03-30 | XR_ITS ---
EXAMINATION: XR KNEE, RIGHT CLINICAL INFORMATION: fall, pain COMPARISON: None TECHNIQUE: 2 views of the right knee. FINDINGS: Bone alignment is normal. No fracture or dislocation. Moderate tricompartmental arthritis. No joint effusion. Normal soft tissues. XR/XR knee RT 2V IMPRESSION: Arthritis. No fracture or dislocation. Electronically signed by: Liza Armas MD 03/30/2025 09:43 AM EDT
--- NOTE | ~2025-03-30 | CT_ITS ---
CLINICAL HISTORY: fall, neck pain CT cervical spine without contrast Comparison: CT/MA/SR - CT CERVICAL SPINE WO IV CON - 10/16/24 14:06 EDT Findings: Mild multilevel marginal osteophyte formation is present. Mild multilevel facet arthropathy is also noted. Vertebral body heights are well-maintained. No acute fracture is identified. There is mild grade 1 anterolisthesis of C3, similar to prior exam. There is no canal stenosis. The thyroid gland appears normal. The lung apices are clear. IMPRESSION: 1. No acute osseous abnormality is identified. 2. Mild degenerative changes in the cervical spine. This document has been electronically signed by: Cm Beltre on 03/30/2025 06:24:11
--- NOTE | ~2025-03-30 | CT_ITS ---
CLINICAL HISTORY: fall, headstrike, on DOAC CT head without contrast Comparison: CT/SR - CT HEAD/BRAIN WO IV CON - 10/16/24 14:06 EDT Findings: Mild bilateral periventricular hypodensities are present. Remote right basal ganglia lacunar infarcts are present. There is no evidence of hemorrhage, mass, mass effect, or hydrocephalus. There is opacification of a left posterior ethmoid air cell. The orbits are unremarkable. There is no acute fracture. IMPRESSION: 1. No acute intracranial findings. 2. Mild chronic microvascular ischemic disease. This document has been electronically signed by: Cm Beltre on 03/30/2025 06:31:06
--- NOTE | ~2025-03-30 | XR_ITS ---
EXAMINATION: XR CHEST CLINICAL INFORMATION: cough, fever COMPARISON: Previous chest x-ray January 2025 TECHNIQUE: Frontal view of the chest was obtained. FINDINGS: Elevated right hemidiaphragm. Subsegmental atelectasis or scarring at the right lung base. Lungs are otherwise clear. No pleural effusion or pneumothorax. Cardiac and mediastinal contours are stable. Degenerative changes of the spine. XR/XR chest 1V IMPRESSION: Elevated right hemidiaphragm and at subsegmental atelectasis or scarring at the right lung base similar to previous exam. Electronically signed by: Liza Armas MD 03/30/2025 09:46 AM EDT
[2025-03-30 03:48] LABS: Hematocrit 43.0 % (37.0-47.0); Hemoglobin 14.5 g/dl (12.0-16.0); Imm Gran Abs Auto 0.01 X10*3/uL (0.00-0.03); Imm Gran Pct Auto 0.1 % (0.0-0.4); Lymphocytes Absolute Auto 3.1 X10*3/uL (1.2-4.9); MANUAL DIFF FLAG NO; Mean Corpuscular HGB Conc 33.7 g/dl (31.0-35.0); Mean Corpuscular Hemoglobin 32.5 pg (27.0-33.0); Mean Corpuscular Volume 96.4 fL (80.0-98.0); NRBC Abs Auto 0.000 X10*3/uL (0.0-0.012); NRBC Pct Auto 0.0 /100WBC (0.0-0.2); Platelet Count 333 X10*3/uL (160-400); Red Blood Count 4.46 X10*6/uL (4.20-5.50); White Blood Count 7.3 X10*3/uL (4.8-10.8)
--- NOTE | 2025-03-30 03:51 | PC.NURSE ---
kenny from home, medical alert alarm triggered EMS, found on the floor, pt states took sleep aid and fell, pt confirms HS, denies LOC, on thinners. pt confirms neck pain 9/10, unsure what sleep aid she took. ambulates at baseline with walker, was trying out get a candy bar and was walking around the bed w/out her walker and fell. she denies dizziness prior to falling.
[2025-03-30 03:54] LABS: INTERNATIONAL NORM RATIO 1.6 (0.9-1.1); Prothrombin Time 18.0 SEC (10.9-12.4)
[2025-03-30 04:05] LABS: Alanine Aminotransferase 14 U/L (0-31); Albumin Level 4.3 g/dL (3.5-5.0); Alkaline Phosphatase 102 U/L (39-117); Anion Gap 14 (12-20); Aspartate Amino Transferase 26 U/L (5-31); Blood Urea Nitrogen 13 mg/dL (9-16); Calcium 9.6 mg/dL (8.4-10.2); Carbon Dioxide 27 mmol/L (22-29); Chloride 107 mmol/L (96-108); Creatinine Clr Calc Pharmacy 77.5; Estimated Glomerular Filt Rate > 60; Potassium 4.2 mmol/L (3.3-5.1); Sodium 144 mmol/L (135-145); Total Protein 7.3 g/dL (6.5-8.0)
--- NOTE | 2025-03-30 06:22 | ED.FALL ---
HPI - Fall General Chief Complaint: Fall Stated Complaint: Fall, Headstrike Time Seen by Provider: 03/30/25 04:02 Source: patient, EMS, RN notes reviewed and old records reviewed Mode of arrival: EMS Limitations: no limitations History of Present Illness ED Provider: Dr. Lucrecia Colin HPI Narrative: 64-year-old female with history of diabetes, oxygen-dependent COPD, fibromyalgia, bipolar disorder presenting via EMS from home after a fall in the bedroom. Was able to press her medical alert button to call EMS. She lives at home alone. Reportedly uses blood thinners but can not tell me which. Patient reports she got up to go to the bathroom and tripped and fell in the bedroom. Confirms hitting her head on the floor but denies LOC. describes some back and neck pain but no headache. Also describing some right knee discomfort. She is normally ambulatory without assistance of a walker or cane. Denies numbness/tingling/weakness of the extremities. Admits to history of COPD. She does occasionally wear oxygen. Describes a cough that is nonproductive and is close to her baseline. No reported fevers. Denies nausea, vomiting, bowel changes or urinary complaints. Related Data Home Medications ?Medication ?Instructions ?Recorded ?Confirmed lorazepam 1 mg tablet 1 mg PO TID 08/19/24 03/30/25 atorvastatin 80 mg tablet 40 mg PO BEDTIME 09/26/24 03/30/25 ferrous sulfate 325 mg (65 mg 325 mg PO DAILY 09/26/24 03/30/25 iron) tablet,delayed release oxcarbazepine 300 mg tablet 600 mg PO BID 09/26/24 03/30/25 potassium chloride 10 mEq 10 meq PO BID 09/26/24 03/30/25 tablet,extended release(part/cryst) trazodone 50 mg tablet 25 mg PO TIDWMEAL 09/26/24 03/30/25 albuterol sulfate 90 mcg/actuation 2 puff inhalation Q6H PRN 10/14/24 03/30/25 aerosol inhaler (Ventolin HFA) Shortness Of Breath/Wheezing bumetanide 2 mg tablet 2 mg PO MOWEFR 10/14/24 03/30/25 gabapentin 800 mg tablet 800 mg PO TID 10/14/24 03/30/25 hydroxyzine HCl 25 mg tablet 25 mg PO BID 10/14/24 03/30/25 nicotine 21 mg/24 hr daily 1 patch transdermal DAILY PRN 10/14/24 03/30/25 transdermal patch Nicotine Cravings famotidine 40 mg tablet 40 mg PO BEDTIME 02/10/25 03/30/25 prazosin 1 mg capsule 3 mg PO BEDTIME 02/10/25 03/30/25 sennosides 8.6 mg tablet (senna) 8.6 mg PO DAILY 02/10/25 03/30/25 methenamine hippurate 1 gram tablet 1 g PO DAILY 03/30/25 03/30/25 Previous Rx's ?Medication ?Instructions ?Recorded apixaban 5 mg tablet (Eliquis) 5 mg PO BID #0 tabs 09/01/24 aspirin 81 mg chewable tablet 81 mg PO DAILY #0 tabs 09/01/24 fluticasone fur. 100 mcg-umeclid 1 inh inhalation RDAILY #0 ea 09/01/24 62.5 mcg-vilant 25 mcg inhalat.powder (Trelegy Ellipta) metoprolol succinate 25 mg 25 mg PO DAILY #0 tabs 09/01/24 tablet,extended release 24 hr quetiapine 400 mg tablet 400 mg PO BEDTIME #0 tabs 09/01/24 acetaminophen 325 mg tablet 650 mg (2 x 325 mg) PO Q6H PRN 02/26/25 Headache/Pain, Scale 1-10 #0 tabs benzocaine 15 mg-menthol 3.6 mg 1 mau mucous membrane Q2H PRN Sore 02/26/25 lozenges (Sore Throat (benzocaine Throat #0 ea with menthol)) bupropion HCl 150 mg 24 hr tablet, 450 mg (3 x 150 mg) PO DAILY #0 02/26/25 extended release tabs fluoxetine 10 mg capsule 50 mg (5 x 10 mg) PO DAILY #0 caps 02/26/25 tramadol 50 mg tablet 50 mg PO Q6H PRN back pain #0 tabs 02/26/25 Allergies Allergy/AdvReac Type Severity Reaction Status Date / Time sertraline (From Zoloft) Allergy Intermediate Nausea and Verified 03/30/25 03:31 Vomiting Penicillins Allergy Mild RASH Verified 03/30/25 03:31 ciprofloxacin AdvReac Intermediate Nausea and Verified 03/30/25 03:31 Vomiting Review of Systems Review of Systems: as per HPI, full review of systems performed and negative but for the above mentioned pertinent positives and negatives. [facility] Past Medical History Medical History Ruptured spleen delivery delivered CHF (congestive heart failure) Type II diabetes mellitus History of falling Fibromyalgia O2 dependent COPD (chronic obstructive pulmonary disease) CVA (cerebral vascular accident) Bipolar disorder Surgical History History of cholecystectomy Social History Social History Household Members: None Housing: Apartment Do you presently have visiting nurse or other home services: Yes Alcohol intake: current Alcohol intake frequency: holidays/special occasions only Comment: 5 min check Patient Tobacco Use Status: Current everyday Tobacco user Tobacco use type: Cigarette Cigarette Packs Per Day: 0.5 Cigarettes Per Day: 8 Years Smoked: 35 e-Cigarette/Vaping Use: Former Use Second Hand Smoke Exposure: No Substance Use Type: Prescription Drugs Advance Directives: Yes Advance Directives on File: Yes Advance Directives Date on File: 09/02/24 Patient : No service: No Sexual orientation: Straight/Heterosexual Physical Exam Exam: Exam: GENERAL: Uncomfortable-Appearing, conversant, mild distress due to pain. SKIN: Normal skin color for ethnicity, warm, dry, intact, no rashes noted. HEENT:? Normocephalic, atraumatic, no stridor, airway patent, no raccoon's eyes, no Mascorro sign, dentition intact, EOMI. NECK: Soft, supple, full ROM, midline structures nontender, no step-offs, no deformities, no lymphadenopathy. CHEST: Heart regular rate and rhythm, no murmurs, symmetric chest rise and fall, no crepitus. PULMONARY: Clear to auscultation bilaterally, no labored breathing, no wheezes/rhales/rhonchi. ABDOMINAL: Soft, nondistended, nontender, positive bowel sounds in all quadrants. : Deferred. MUSCULOSKELETAL: Normal tone, full active range of motion, no deformities, no contusions, no joint effusions in the knees, neurovascularly intact distally, hypertonicity of the bilateral trapezius musculature. NEURO: Alert and oriented x3, CN II through XII intact, equal strength and sensation bilateral upper and lower extremities, no focal neurologic deficits.? PSYCHIATRIC: Anxious affect, fluid speech, good eye contact and appropriate demeanor. Vital Signs: Vital Signs: Last Vital Signs Temp 97.4 F 03/31/25 05:53 Pulse 71 03/31/25 08:44 Resp 18 03/31/25 08:44 BP 106/69 03/31/25 09:16 Pulse Ox 91 L 03/31/25 05:53 O2 Del Method Room Air 03/31/25 05:53 O2 Flow Rate 2 03/30/25 06:36 BMI result Body Mass Index 33.5 Course Course Course Narrative: 03/31/25 08:20 TAYA Cummings: Physician observation continued, no overnight events reported by nursing. STR recommended, following for disposition. Time: 09:48 Date: 03/31/25 Provider: Lyn Cummings NP Per Isabel from , patient will be discharged home with therapy. Observation care revealed that patient does not meet medical necessity for hospitalization. Final disposition discussed with patient. The patient completed observation care at 10:30 on 03/31/25. Medications Administered Generic Name Dose Route Start Last Admin Trade Name Freq PRN Reason Stop Dose Admin Apixaban 5 mg 03/30/25 21:30 03/31/25 09:19 Apixaban 5 Mg Tablet PO 5 mg BID AMIRAH Administration Aspirin 81 mg 03/31/25 09:00 03/31/25 09:19 Aspirin 81 Mg Tab.Chew PO 81 mg DAILY AMIRAH Administration Atorvastatin Calcium 40 mg 03/30/25 21:30 03/30/25 22:25 Atorvastatin Calcium 40 Mg Tablet PO 40 mg BEDTIME AMIRAH Administration Bumetanide 2 mg 03/30/25 21:30 03/30/25 22:36 Bumetanide 1 Mg Tablet PO Not Given [facility] Protocol Bupropion HCl 450 mg 03/31/25 09:00 03/31/25 09:00 Bupropion Hcl Xl 150 Mg Tab.Er.24h PO 450 mg DAILY AMIRAH Administration Famotidine 40 mg 03/30/25 21:30 03/30/25 22:24 Famotidine 20 Mg Tablet PO 40 mg BEDTIME AMIRAH Administration Ferrous Sulfate 324 mg 03/31/25 09:00 03/31/25 09:20 Ferrous Sulfate 324 Mg Tablet.Dr PO 324 mg DAILY AMIRAH Administration Fluoxetine HCl 50 mg 03/31/25 09:00 03/31/25 09:16 Fluoxetine Hcl 10 Mg Capsule PO 50 mg DAILY AMIRAH Administration Fluticasone/Umeclidinium/Vilanterol 1 puff 03/31/25 08:00 03/31/25 08:41 Fluticasone/Umeclidinium/Vilanterol 100/62.5/25 Blst.W.Dev INHALE 1 puff RDAILY AMIRAH Administration Gabapentin 800 mg 03/30/25 21:30 03/31/25 09:34 Gabapentin 400 Mg Capsule PO 800 mg TID AMIRAH Administration Hydroxyzine HCl 25 mg 03/30/25 21:30 03/30/25 22:26 Hydroxyzine Hcl 25 Mg Tablet PO 25 mg BID AMIRAH Administration Lorazepam 1 mg 03/30/25 21:30 03/31/25 09:16 Lorazepam 1 Mg Tablet PO 1 mg TID AMIRAH Administration Metoprolol Succinate 25 mg 03/31/25 09:00 03/31/25 09:16 Metoprolol Succinate Er 25 Mg Tab.Er.24h PO 25 mg DAILY AMIRAH Administration Protocol Oxcarbazepine 600 mg 03/30/25 21:30 03/31/25 09:16 Oxcarbazepine 300 Mg Tablet PO 600 mg BID AMIRAH Administration Potassium Chloride 10 meq 03/30/25 21:30 03/31/25 09:16 Potassium Chloride Er 10 Meq Tablet.Er PO 10 meq BID AMIRAH Administration Prazosin HCl 3 mg 03/30/25 21:30 03/30/25 22:26 Prazosin Hcl 1 Mg Capsule PO 3 mg BEDTIME AMIRAH Administration Protocol Quetiapine Fumarate 400 mg 03/30/25 21:30 03/30/25 22:26 Quetiapine Fumarate 400 Mg Tablet PO 400 mg BEDTIME AMIRAH Administration Senna 8.6 mg 03/31/25 09:00 03/31/25 09:19 Sennosides 8.6 Mg Tablet PO 8.6 mg DAILY AMIRAH Administration Tramadol HCl 50 mg 03/30/25 21:25 03/30/25 23:30 Tramadol Hcl 50 Mg Tablet PO 50 mg Q6H PRN Administration back pain Trazodone HCl 25 mg 03/30/25 21:30 03/31/25 09:20 Trazodone Hcl 25 Mg Halftab PO 25 mg TIDWM AMIRAH Administration Discontinued Medications Generic Name Dose Route Start Last Admin Trade Name Deidra PRN Reason Stop Dose Admin Acetaminophen 650 mg 03/30/25 06:17 03/30/25 06:47 Acetaminophen 325 Mg Tablet PO 03/30/25 06:18 650 mg ONCE ONE Administration Medical Decision Making Medical Decision Making [facility] Narrative: Patient presents today with chief complaint of trauma. Different diagnosis on this patient includes intracranial hemorrhage, skull fracture, neck injury including fracture or spinal cord pathology. Other diagnoses considered would include chest or abdominal trauma as well as long bone fractures. Based on my physical exam, the ordered imaging modalities are indicated. The patient specifically does not show any signs of central cord syndrome as evidenced by equal strength in the upper extremities with normal two-point discrimination. Sensation is not altered. GCS is appropriate. Patient is neurovascularly intact. There are no signs of vascular emergency. No signs of shock. No respiratory distress. Patient was given Tylenol for pain control. CT head and neck are negative for fracture or intracranial process. Patient remains slightly somnolent, resting in bed. She is shaky and I feel she could benefit from a PT and case management consult. Signing out to oncoming provider pending consults and final disposition. Differential Diagnosis Differential Diagnoses: The differential diagnosis associated with the presentation includes (as above) Admission/Observation Consideration of admission/observation: Escalation of care including admission/observation considered Lab Data [facility] Lab Attestation statement: I reviewed the patient's lab results. 03/30/25 03:43 03/30/25 03:43 Labs: Lab Results 03/30/25 03/30/25 03/30/25 Range/Units 03:43 03:44 09:40 WBC 7.3 (4.8-10.8) X10*3/uL RBC 4.46 (4.20-5.50) X10*6/uL Hgb 14.5 (12.0-16.0) g/dl Hct 43.0 (37.0-47.0) % MCV 96.4 (80.0-98.0) fL MCH 32.5 (27.0-33.0) pg MCHC 33.7 (31.0-35.0) g/dl RDW 13.4 (11.0-16.0) % Plt Count 333 (160-400) X10*3/uL MPV 9.0 L (9.4-12.3) fL Immature Gran % (Auto) 0.1 (0.0-0.4) % Neut % (Auto) 41.9 L (45-73) % Lymph % (Auto) 41.9 H (20-40) % Fajardo % (Auto) 11.7 H (2-11) % Eos % (Auto) 3.3 (0-4) % Baso % (Auto) 1.1 (0-2) % Lymph # (Auto) 3.1 (1.2-4.9) X10*3/uL Fajardo # (Auto) 0.9 (0.1-1.2) X10*3/uL Eos # (Auto) 0.2 (0.0-0.4) X10*3/uL Baso # (Auto) 0.1 (0.0-0.2) X10*3/uL Abs Immat Gran (auto) 0.01 (0.00-0.03) X10*3/uL Absolute Neuts (auto) 3.1 (2.0-8.3) x10*3/uL Absolute Nucleated RBC 0.000 (0.0-0.012) X10*3/uL Nucleated RBC % (auto) 0.0 (0.0-0.2) /100WBC PT 18.0 H (10.9-12.4) SEC INR 1.6 H (0.9-1.1) Sodium 144 (135-145) mmol/L Potassium 4.2 (3.3-5.1) mmol/L Chloride 107 (96-108) mmol/L Carbon Dioxide 27 (22-29) mmol/L Anion Gap 14 (12-20) BUN 13 (9-16) mg/dL Creatinine 0.93 (0.5-1.4) mg/dL Estim Creat Clear Calc 77.5 Estimated GFR > 60 Random Glucose 94 (60-115) mg/dL Calcium 9.6 (8.4-10.2) mg/dL Total Bilirubin 0.3 (0.0-1.0) mg/dL AST 26 (5-31) U/L ALT 14 (0-31) U/L Alkaline Phosphatase 102 (39-117) U/L Total Protein 7.3 (6.5-8.0) g/dL Albumin 4.3 (3.5-5.0) g/dL Influenza Type A (PCR) NEGATIVE (Negative) Influenza Type B (PCR) NEGATIVE (Negative) RSV RNA Qual (PCR) NEGATIVE (Negative) SARS-CoV-2 RNA (RT-PCR) NEGATIVE (Negative) Radiology Impression Discussion of test interpretation with radiology: I have reviewed the radiologist's reading. Radiologist Impression: CT head without contrast Comparison: CT/SR - CT HEAD/BRAIN WO IV CON - 10/16/24 14:06 EDT Findings: Mild bilateral periventricular hypodensities are present. Remote right basal ganglia lacunar infarcts are present. There is no evidence of hemorrhage, mass, mass effect, or hydrocephalus. There is opacification of a left posterior ethmoid air cell. The orbits are unremarkable. There is no acute fracture. IMPRESSION: 1. No acute intracranial findings. 2. Mild chronic microvascular ischemic disease. This document has been electronically signed by: Cm Beltre on 03/30/2025 06:31:06 CT cervical spine without contrast Comparison: CT/MA/SR - CT CERVICAL SPINE WO IV CON - 10/16/24 14:06 EDT Findings: Mild multilevel marginal osteophyte formation is present. Mild multilevel facet arthropathy is also noted. Vertebral body heights are well-maintained. No acute fracture is identified. There is mild grade 1 anterolisthesis of C3, similar to prior exam. There is no canal stenosis. The thyroid gland appears normal. The lung apices are clear. IMPRESSION: 1. No acute osseous abnormality is identified. 2. Mild degenerative changes in the cervical spine. This document has been electronically signed by: Cm Beltre on 03/30/2025 06:24:11 Independent Historian Clinical information obtained from an independent historian. History obtained from or confirmed by: EMS External Record Review External record reviewed: Inpatient record Prescription Management I considered prescription management with: Pain Medication Chronic Conditions Patient?s care impacted by: Diabetes and Other (COPD) Social Determinants Patient?s care significantly limited by Social Determinants of Health including: Problems related to primary support group Discharge Plan Discharge Clinical Impression: Unwitnessed fall, On continuous oral anticoagulation, Contusion of right knee Patient Disposition: Home, Self-Care Instructions: Contusion in Adults (ED) Additional Instructions: You have been evaluated in the emergency department today for injuries after a fall. Your imaging and evaluation did not show evidence of any emergent medical conditions. We recommend you take Tylenol 650 mg every 6 hours as needed for pain. [facility]ora will be providing in-home therapy. Please schedule an appointment with for follow-up with your primary care provider as soon as possible. Return to the emergency department if you experience worsening or uncontrolled pain, vision changes, recurrent vomiting, difficulty with normal activities, abnormal behavior, difficulty walking, numbness, weakness, or any other concerning symptoms. Prescriptions: No Action bumetanide 2 mg Tablet 2 mg PO Rx Instructions: Sunday, Sunday, Sunday gabapentin 800 mg Tablet 800 mg PO TID nicotine 21 mg/24 hr Patch 24 Hour 1 patch TRANSDERMAL DAILY PRN (Reason: Nicotine Cravings) hydroxyzine HCl 25 mg tablet 25 mg PO BID albuterol sulfate [Ventolin HFA] 90 mcg/actuation HFA aerosol inhaler 2 puff inhalation Q6H PRN (Reason: Shortness Of Breath/Wheezing) lorazepam 1 mg tablet 1 mg PO TID Rx Instructions: Take before meals. Max daily amount 3 mg. aspirin 81 mg Tablet,Chewable 81 mg PO DAILY Qty: 0 0RF metoprolol succinate 25 mg Tablet Extended Release 24 Hr 25 mg PO DAILY Qty: 0 0RF Protocol: Hold for SBP/HR < HOLD for SBP < : 90 HOLD for HR < : 60 quetiapine 400 mg Tablet 400 mg PO BEDTIME Qty: 0 0RF Eliquis 5 mg Tablet 5 mg PO BID Qty: 0 0RF Trelegy Ellipta 100-62.5-25 mcg Blister With Device 1 inh inhalation RDAILY Qty: 0 0RF atorvastatin 80 mg tablet 40 mg PO BEDTIME trazodone 50 mg tablet 25 mg PO TIDWMEAL oxcarbazepine 300 mg tablet 600 mg PO BID potassium chloride 10 mEq tablet,ER particles/crystals 10 meq PO BID ferrous sulfate 325 mg (65 mg iron) Tablet,Delayed Release (Dr/Ec) 325 mg PO DAILY prazosin 1 mg capsule 3 mg PO BEDTIME Protocol: Hold for SBP< HOLD for SBP < : 90 sennosides [senna] 8.6 mg Tablet 8.6 mg PO DAILY famotidine 40 mg Tablet 40 mg PO BEDTIME acetaminophen 325 mg Tablet 650 mg PO Q6H PRN (Reason: Headache/Pain, Scale 1-10) Qty: 0 0RF tramadol 50 mg Tablet 50 mg PO Q6H PRN (Reason: back pain) Qty: 0 0RF fluoxetine 10 mg Capsule 50 mg PO DAILY Qty: 0 0RF bupropion HCl 150 mg Tablet Extended Release 24 Hr 450 mg PO DAILY Qty: 0 0RF Sore Throat (benzocaine-menth) 15-3.6 mg Lozenge 1 mau mucous membrane Q2H PRN (Reason: Sore Throat) Qty: 0 0RF methenamine hippurate 1 gram Tablet 1 g PO DAILY Referrals: DORA PRITCHARD [Other] Referral Note: [facility] will not authorize short term rehab and will arrange physical therapy at home. Print Language: Omani
--- NOTE | 2025-03-30 08:43 | PC.NURSE ---
resumed care of pt at 0700, she is resting in bed, C-collar has been removed. Pt continues to be lethargic and not answering staff questions fully. aware, in agreement pt is not safe for RN/tech to attempt to get up and walk with walker. PT order at this time.
[2025-03-30 10:20] LABS: Resp Syncy Virus RNA Qual PCR NEGATIVE (Negative); SARS COV2 PCR INHOUSE NEGATIVE (Negative)
--- NOTE | 2025-03-30 12:17 | MHC.CM.ED ---
Addendum entered by Isabel Rios 03/30/25 15:52: Physical therapy eval completed. Short term rehab is recommended. Attempted to speak with Jennifer of [facility]. Jennifer is out today. Spoke with Tory. ER H&P and PT eval sent to [facility] for review. Original Note: Received case management consult overnight. Patient came to the ER due to a fall. Work up essentially negative. Physical therapy eval attempted. However patient was too somnolent to participate. Patient is active with [facility]. ER H&P sent to Jennifer of [facility]. Continue to monitor for d/c needs.
--- NOTE | 2025-03-30 16:41 | MHC.EDTECH ---
Patient was freshened up and asking for pain meds. Nurse aware. Patient 1 assist to the commode
--- NOTE | 2025-03-30 16:44 | PC.NURSE ---
Patient transferred to Overflow Bed 5 Patient able to stand 1 assist with walker and take couple steps to bed, Gait appeared steady Denies SOB Patient noted to use occasional O2, patient on RA at this time Call estrada in reach, bed alarm on
--- NOTE | 2025-03-30 19:53 | PC.NURSE ---
unable to view home meds filled. pt states she gave a person her med list. not in overflow chart. pharmacist Ari called, stated he can send staff for med rec
--- NOTE | 2025-03-30 20:18 | PHA.MEDREC ---
Addendum entered by Ari Garcia, Chirag 03/30/25 20:50: MED REC CHECKED BY [facility] Original Note: Pharmacy Consult ? Medication Reconciliation Pharmacy has completed the medication reconciliation. Patient is a poor historian. patient had a list, however no list in chart. Utilized discharge packet from 02/26/25 to confirm med list.
[2025-03-30] MEDS: Potassium Chloride ER 10 MEQ TABLET.ER PO (22:23)
[2025-03-30] MEDS: traZODone HCL 25 MG HALFTAB PO (22:24)
--- NOTE | 2025-03-30 23:00 | PC.NURSE ---
full bed change, purewick failed, large amount of yellow nonodorous urine. meds given whole with water. call estrada in reach
[2025-03-31 00:30] VITALS: RESP 18
[2025-03-31 05:53] VITALS: BP 106/69; PULSE 67; RESP 18; TEMP 36.3; O2SAT 91
--- NOTE | 2025-03-31 06:41 | PC.NURSE ---
pt encouraged this morning to get OOB. up to commode with walker, moderate assist, voided urine, purewick previously failed twice overnight with large volumes of yellow non odorous urine on pads. now pt is in bed with call estrada in reach fall precautions in place
[2025-03-31] MEDS: Fluticasone/Umeclidinium/Vilanterol 100/62.5/25 BLST.W.DEV 1 PUFF INHALE (08:41)
[2025-03-31 08:44] VITALS: PULSE 71; RESP 18; O2SAT 90
[2025-03-31] MEDS: buPROPion HCl XL 150 MG TAB.ER.24H 450 MG PO (09:00)
[2025-03-31 09:16] VITALS: BP 106/69
[2025-03-31] MEDS: Metoprolol Succinate ER 25 MG TAB.ER.24H PO (09:16)
[2025-03-31] MEDS: Potassium Chloride ER 10 MEQ TABLET.ER PO (09:16)
[2025-03-31] MEDS: traZODone HCL 25 MG HALFTAB PO (09:20)
[2025-03-31] MEDS: Ferrous Sulfate 324 MG TABLET.DR PO (09:20)
[2025-03-31 11:48] VITALS: BP 106/69; PULSE 70; RESP 16; TEMP 36.1; O2SAT 94
== END 2025-03-31 11:51 | disposition home or self-care (01) ==
PROVIDERS: Physician Assistant Medical; Emergency Provider Emergency Medicine; PCP Nurse Practitioner Family
DX: S80.01XA Contusion of right knee, initial encounter (principal); S09.90XA Unspecified injury of head, initial encounter; W01.0XXA Fall on same level from slipping, tripping and stumbling without subsequent striking against object, initial encounter; Y93.89 Activity, other specified; Y92.9 Unspecified place or not applicable; Y99.9 Unspecified external cause status; R05.9 Cough, unspecified; R50.9 Fever, unspecified; M54.2 Cervicalgia; M25.561 Pain in right knee; E11.9 Type 2 diabetes mellitus without complications; I50.9 Heart failure, unspecified; J44.9 Chronic obstructive pulmonary disease, unspecified; Z79.01 Long term (current) use of anticoagulants; Z79.899 Other long term (current) drug therapy; Z03.818 Encounter for observation for suspected exposure to other biological agents ruled out
CPT/HCPCS: 36415; 70450; 71045; 72125; 73560; 80053; 85025; 85610; 87637; 94640; 97162; 99285

== ENCOUNTER → 2025-03-30 05:15 | Outpatient (BNV) | payer OTHER, SELFPAY | PROVIDERS: Emergency Provider Emergency Medicine; PCP Nurse Practitioner Family; Visit Provider Radiology Vascular & Interventional Radiology | DX: M54.2 Cervicalgia (principal); J98.6 Disorders of diaphragm; M25.561 Pain in right knee; M17.11 Unilateral primary osteoarthritis, right knee; W19.XXXA Unspecified fall, initial encounter | CPT/HCPCS: 71045; 73560 ==

== ENCOUNTER 2025-04-08 12:14 | Emergency (ER) | payer OTHER, SELFPAY ==
--- OUTSIDE RECORDS SUMMARY | 2011-11-27 | XMS_ITS | Encounter Summary ---
Author Organization [facility] Address [address] [place] [address] Phone Care Team Providers Care Surveillance Director Name Role Phone Unavailable Primary Care Provider Unavailabl e Encounter Details Date Type Department Care Team (Late st Contact Info) Description 11/27/2011 Hospital Encounter [facility],Outside Imaging [address] [place], [place] [phone] System, Provider Not In, PhD [address] [id number] Social History Tobacco Use Types Packs/Day Years Used Date Smoking Tobacco: Every Day Cigarettes 1 40 Started: 06/25/1980; Last attempted to quit: 06/25/2020 Smokeless Tobacco: Never Alcohol Use Standard Drinks/Week Comments Not Currently 0 (1 standard drink = 0.6 oz pur e alcohol) Rare, monthly Education Answer Date Recorded Are you interested in more education? Not on eric e 10/19/2022 Are you concerned about learning? Not on file 10/19/2022 No 10/19/2022 No 10/19/2022 Digital Access Answer Date Recorded No 11/19/2022 No 11/19/2022 Reliable internet access at home? Not on file 11/19/2022 Device with a working camera? Not on file Intimate Partner Violence Answer Date R ecorded Are you denied basic needs s uch as food, clothing, or medical care? Patient unable to respond 03/16/2025 In the past 12 months have y ou been in a relationship with a person who hurts, threatens, or tries to control you? Patient unable to respond 03/16/2025 Are you denied basic needs s uch as food, clothing, or medical care? Patient unable to respond 03/16/2025 In the past 12 months have y ou been in a relationship with a person who hurts, threatens, or tries to control you? Patient unable to respond 03/16/2025 Comments Unknown Sex and Gender Information Value Date Recorded Sex Assigned at Female 12/20/2017 4:36 PM EDT Legal Sex Female 7:59 PM EST Gender Identity Female 12/20/2017 4:36 PM EDT Sexual Orientation Straight 12/20/2017 4: 36 PM EDT documented as of this encounter Functional Status * Calculated C-SSRS Risk Score (Lifetime/Recent) Answer Date of Assessment Author Low Risk 08/15/2024 6:29 PM Mahogany Osullivan RN * [place] Suicide Severity Rating Scale (Screener/Recent Self-Report) Question Answer Date of Assessment Author 1. Wish to be (Past 1 Month) Yes 025 6:29 PM Louann Osullivan RN 2. Non-Specific Active Suici mimi Thoughts (Past 1 Month) No 08/15/2024 6:29 PM Louann Osullivan RN 6. Suicidal Behavior (Lifetime) No 5 6:29 PM Louann Osullivan RN documented as of this encounter Plan of Treatment Not on file documented as of this encounter Procedures Procedure Name Priority Date/Time Associated Diagnosis Comments BI MAMMOGRAM OUTSIDE (NO INTERPRETATION) Routine 11/27/2011 12:00 AM EDT documented in this encounter Results * Mammogram Outside (No Interpretation) (11/27/2011 12:00 AM EDT) Narrative SYSTEMGENERATED, DOCUMENTATION - 11/13/2019 2:35 PM EDT This study is for PACS storage only and not for interpretation. us Provider Not In System PhD IMG OUTSIDE IMAGING W /OUT INTERPRETATION Final Result documented in this encounter Visit Diagnoses Not on filedocumented in this encounter Additional Health Concerns Infection Onset Date Last Indicated Resolved Time CoV-Risk Comment:Per note documentation 10/11/2020 10/11/2020 9:12 AM EDT CoV-Risk Comment:Per note documentation 05/03/2021 05/03/2021 12:38 PM EST CoV-Risk Comment:Neg covid 08/24/2022 08/24/2022 08/25/2022 6:[address] CoV-Risk 04/22/2023 04/22/2023 05/03/2023 1:22 AM EST CoV-Risk Comment:Per note documentation 10/25/2023 10/25/2023 8:32 AM EDT Influenza A 10/25/2023 10/25/2023 11/08/2023 1:21 AM EDT CoV-Risk 08/15/2024 08/15/2024 08/26/2024 1:24 AM EST documented as of this encounter Additional Source Comments The information contained in this document represents components of the legal health record. It is not the complete legal health record.[facility]
--- OUTSIDE RECORDS SUMMARY | 2017-12-20 16:45 | XMS_ITS | Encounter Summary ---
Author Organization Located [facility] Address [address] [facility] [address] [place] [phone] Phone Care Team Providers Care Junior Architect Name Role Phone June Rodriguez DYE MACHINE TENDER Primary Care Provider Encounter Details Date Type Department Care Team (Late st Contact Info) Description 12/20/2017 4:45 PM EDT Hospital Encounter [address] [phone] Luz Lezama MD, PhD [address] [place], [place] [id number] [email or web address] Social History Tobacco Use Types Packs/Day Years [...] 08/15/2024 6:29 PM Mahogany Osullivan RN * [place] Suicide Severity Rating Scale (Screener/Recent Self-Report) Question [...] Procedure Name Priority Date/Time Associated Diagnosis Comments US LOWER EXTREMITY VEINS DUPLEX COMPLETE (BILATERAL) Routine 12/20/2017 5:15 PM EDT Pain documented in this encounter Results * US Lower Extremity Veins Duplex (Bilateral) (12/20/2017 5:15 PM EDT) Anatomical Region Laterality Modality Ultrasound 12/21/2017 9:39 AM EDT Impressions 12/21/2017 9:48 AM EDT Limited by habitus. No definite evidence of bilateral lower extremity deep venous thrombosis. POS [id number] Edited by: Eve Woods on 12/21/2017 9:41 AM Narrative 12/21/2017 9:48 AM EDT COMPARISON: 07/20/2009. BILATERAL LOWER EXTREMITY DOPPLER VENOUS ULTRASOUND FINDINGS: Limited by body habitus. The distal femoral veins are less than optimally visualized. There is no definite evidence of bilateral lower extremity deep venous thrombosis from the common femoral vein to the trifurcation veins. Deep veins are compressible with normal color flow and augmentation. No popliteal cyst. Procedure Note Estefany Veloz MD - 12/21/2017 COMPARISON: 07/20/2009. BILATERAL LOWER EXTREMITY DOPPLER VENOUS ULTRASOUND FINDINGS: Limited by body habitus. The distal femoral veins are less than optimallyvisualized. There is no definite evidence of bilateral lower extremitydeep venous thrombosis from the common femoral vein to the trifurcationveins. Deep veins are compressible with normal color flow andaugmentation. No popliteal cyst. IMPRESSION: Limited by habitus. No definite evidence of bilateral lower extremitydeep venous thrombosis. POS [id number] Edited by: Eve Woods on 12/21/2017 9:41 AM us Luz Lezama MD, PhD CV US VASCULAR Fin al Result documented in this encounter Visit Diagnoses Diagnosis Pain Generalized pain documented in this encounter Additional Health Concerns Infection [...] AM EST documented as of this encounter Care Teams Junior Architect Relationship Specialty Start Date End Date June Rodriguez NP [address] [place] [phone] [email or web address] PCP - General Family Medicine 12/20/17 01/02/22 documented as of this encounter Additional Source Comments The information contained in this document represents components of the legal health record. It is not the complete legal health record.[facility]
--- OUTSIDE RECORDS SUMMARY | 2022-12-11 18:00 | XMS_ITS | Encounter Summary ---
Author Organization [facility] Address [address] [place] [address] Phone Care Team Providers Care Body Mechanic Apprentice Name Role Phone June Rodriguez JAVA WEB ENGINEER Primary Care Provider Encounter Details Date Type Department Care Team (Late st Contact Info) Description 12/11/2022 6:00 PM EDT Hospital Encounter [facility] [address] [place] [phone] Shu Barnett, JAVA WEB ENGINEER [address] [place] [address] [email or web address] Social History Tobacco Use Types Packs/Day Years [...] 08/15/2024 6:29 PM Mahogany Osullivan RN * [place] Suicide Severity Rating Scale (Screener/Recent Self-Report) Question [...] Procedure Name Priority Date/Time Associated Diagnosis Comments XR HAND 3 OR MORE VIEWS (RIGHT) Urgent/patient waiting 12/11/2022 6:08 PM EDT Right hand pain documented in this encounter Results * XR HAND 3 OR MORE VIEWS (RIGHT) (12/11/2022 6:08 PM EDT) Anatomical Region Laterality Modality Hand Right Computed Radiogr aphy 12/11/2022 6:09 PM EDT Impressions 12/11/2022 6:13 PM EDT Flexion deformity long finger PIP joint without franki dislocation. Finding could reflect injury to the dorsal schreiber if injury is acute. Follow-up with hand specialists and further assessment with MR imaging (if clinical picture is indeterminate) may prove useful. Narrative 12/11/2022 6:13 PM EDT XR HAND 3 OR MORE VIEWS (RIGHT) Hand: Right hand pain post injury sustained in a fall. Flexion deformity long finger. COMPARISON: None. FINDINGS: 3 view right hand series notable for a long finger PIP joint flexion deformity. Base of the middle phalanx has intimate contact with the mid to volar aspect of the proximal phalanx distal articular surface. No fracture or dislocation revealed at this site nor elsewhere. Procedure Note Cruz Crowell MD - 12/11/2022 XR HAND 3 OR MORE VIEWS (RIGHT) Hand: Right hand pain post injury sustained in a fall. Flexion deformitylong finger. COMPARISON: None. FINDINGS: 3 view right hand series notable for a long finger PIP joint flexiondeformity. Base of the middle phalanx has intimate contact with the mid tovolar aspect of the proximal phalanx distal articular surface. No fractureor dislocation revealed at this site nor elsewhere. IMPRESSION: Flexion deformity long finger PIP joint without franki dislocation. Findingcould reflect injury to the dorsal schreiber if injury is acute. Follow-up withhand specialists and further assessment with MR imaging (if clinicalpicture is indeterminate) may prove useful. us Shu B Ericka JAVA WEB ENGINEER IMG XR UPPER EXTREMITY Claire l Result documented in this encounter Visit Diagnoses Not on filedocumented in this encounter Additional Health Concerns Infection Onset Date Last Indicated Resolved Time CoV-Risk 04/22/2023 04/22/2023 05/03/2023 1:22 AM EST CoV-Risk Comment:Per note documentation 10/25/2023 10/25/2023 8:32 AM EDT Influenza A 10/25/2023 10/25/2023 11/08/2023 1:21 AM EDT CoV-Risk 08/15/2024 08/15/2024 08/26/2024 1:24 AM EST documented as of this encounter Care Teams Body Mechanic Apprentice Relationship Specialty Start Date End Date June Rodriguez NP [address] [place] [phone] [email or web address] PCP - General Family Medicine 01/03/22 01/01/23 documented as of this encounter Additional Source Comments The information contained in this document represents components of the legal health record. It is not the complete legal health record.[facility]
--- OUTSIDE RECORDS SUMMARY | 2024-04-14 10:30 | XMS_ITS | Encounter Summary ---
Author Organization [facility] [address] Address [address] [place] [address] Care Team Providers Care Signal Worker Name Role Phone Eleazar Gleason MD Primary Care Provider [phone] Encounter Details Date Type Department Care Team (Latest Contact Info) Description 04/14/2024 10:30 AM EDT Hospital Encounter TH HISTORIC ENCOUNTERS EASTERN CONVERSION ONLY Iron deficiency anemia, unspecified Social History Tobacco Use Types Packs/Day Years Used Date Smoking Tobacco: Every Day Cigarettes 0.5 45.8 Started: 1979 Smokeless Tobacco: Current Comments:cigs per day : 6 Calculated quantity/packs per year: 2190 Alcohol Use Standard Drinks/Week Comments Not Currently 1 (1 standard drink = 0.6 oz pur e alcohol) Interpersonal Safety Answer Date Record ed Physical Abuse Unrecognized value 04/06/2025 Verbal Abuse Unrecognized value 04/06/2025 Education Answer Date Recorded What is the highest level of school you have completed or the highest degree you have received? Some college, no degree 03/04/2025 Comments No Sex and Gender Information Value Date Recorded Sex Assigned at Female 12/29/2024 10:33 AM EDT Legal Sex Female 11:06 AM EDT Gender Identity Female 12/29/2024 10:33 AM EDT Sexual Orientation Not on file documented as of this encounter Functional Status * Calculated C-SSRS Risk Score (Lifetime/Recent) Answer Date of Assessment Author No Risk Indicated 04/06/2025 8:29 AM EDT Chris Moya RN * [place] Suicide Severity Rating Scale (Screener/Recent Self-Report) Question Answer Date of Assessment Author 1. Wish to be (Past 1 Month) No 8:29 AM EDT Jayshree Moya RN 2. Non-Specific Active Suici mimi Thoughts (Past 1 Month) No 04/06/2025 8:29 AM EDT Jayshree Moya RN 6. Suicidal Behavior (Lifetime) No 8:29 AM EDT Jayshree Moya RN * Geriatric Depression Scale (Short Version) Question Answer Date of Assessment Author Are you basically satisfied with your life? Yes 03/19/2025 2:21 PM EDT Mariah Adams Have you dropped many of you r activities and interests? No 03/19/2025 2:21 PM EDT Mariah Alcantara Do you feel that your life i s empty? No 03/19/2025 2:21 PM EDT Mariah Adams Do you often get bored? No 03/19/2025 2:21 P M EDT Mariah Adams Are you in good spirits most of the time? Yes 03/19/2025 2:21 PM EDT Mariah Adams Are you afraid that somethin g bad is going to happen to you? No 03/19/2025 2:21 PM EDT Mariah Adams Do you feel happy most of th e time? Yes 03/19/2025 2:21 PM EDT Mariah Adams Do you often feel helpless? Yes 03/19/2025 2: 21 PM EDT Mariah Adams Do you prefer to stay at home, rather than going out and doing new things? No 03/19/2025 2:21 PM EDT Mariah Justin Do you feel you have more problems with memory than most? Yes 03/19/2025 2:21 PM EDT Mariah Adams Do you think it is wonderful to be alive now? Yes 03/19/2025 2:21 PM EDT Mariah Carrillo Do you feel pretty worthless the way you are now? No 03/19/2025 2:21 PM EDT Mariah Carrillo Do you feel full of energy? Yes 03/19/2025 2: 21 PM EDT Mariah Adams Do you feel that your situation is hopeless? No 03/19/2025 2:21 PM EDT Mariah Fong Do you think that most peopl e are better off than you are? No 03/19/2025 2:21 PM EDT Mariah Adams Geriatric Depression Scale (Short Version) Total 2 03/19/2025 2:21 PM EDT Mariah Justin documented as of this encounter Progress Notes * Historical, Notes Results - 04/14/2024 10:30 AM EDT Lucila arrives ambulatory with push walker for her first of two feraheme infusions today - was given information from her doctor - no current questions. She lives alone and has help 2 days a week from health care agency for house cleaning and personal care - she has extensive medical history including multiple strokes, COPD & CHF. Stable initial assessment completed - IV placed to right arm,+brisk blood return noted. Med released to pharmacy - meds/allergies reviewed to the best of the patient's ability. Patient resting in recliner with call estrada in reach - wears home o2 @ 4 lpm at baseline. No voiced needs currently. 1147 - Feraheme infusion up on pump as ordered. 1224 - Iron infusion completed - well tolerated - patient with good appetite for lunch. Aware of 30minute post manager multimedia observation period for first infusion. 1300 - Observation period completed - patient with no issues noted - IV flushed and removed intact- patient has next appt in place. Stable upon discharge - [employer] transport van here for ride home. documented in this encounter Plan of Treatment Upcoming Encounters Date Type Department Care Team (Late st Contact Info) Description 04/09/2025 11:30 AM EDT Clinical Support [facility] [address] [address] 04/13/2025 [facility] [place] [facility] [address] [place] [address] 04/13/2025 7:30 AM EDT P[facility] Home Care / [facility] [address] [place] [address] Cheryle Pryor 04/13/2025 9:00 AM EDT [facility] [place] [facility] [address] [place] [address] 04/14/2025 7:30 AM EDT PACE Home Care / [facility] [address] [place] [address] Cheryle Pryor 04/14/2025 10:30 AM EDT P[facility] Home [facility] / [facility] [address] [place] [address] Cheryle Pryor 04/14/2025 1:00 PM EDT Clinical Support Lung Screening Program - [address] [address] 04/15/2025 7:30 AM EDT PACE Home Care / [facility] [address] [place] [address] Cheryle Pryor 04/15/2025 9:00 AM EDT [facility] Attend[facility] [place] [facility] [address] [place] [address] 04/16/2025 7:30 AM EDT PACE Home Care / [facility] [place] [facility] [address] [place] [address] Cheryle Pryor 04/17/2025 7:30 AM EDT PACE Home Care / [facility] [place] [facility] [address] [place] [address] Shawna Lebron 04/17/2025 10:30 AM EDT [facility] [place] [facility] [address] [place] [phone] Jhoana Grijalva 04/18/2025 7:30 AM EDT P[facility] Home [facility] / [facility] [place] [facility] [address] [place] [phone] Jhoana Grijalva 04/19/2025 7:30 AM EDT P[facility] Home [facility] / [facility] [place] [facility] [address] [place] [phone] Jhoana Grijalva 04/20/2025 [facility] Attend[facility] [facility] [place] [facility] [address] [place] [phone] 04/20/2025 7:30 AM EDT P[facility] Home [facility] / [facility] [place] [facility] [address] [place] [phone] Cheryle Pryor 04/20/2025 9:00 AM EDT [facility] [facility] [place] [facility] [address] [place] [phone] 04/21/2025 7:30 AM EDT P[facility] Home [facility] / [facility] [place] [facility] [address] [place] [phone] Cheryle Pryor 04/21/2025 10:30 AM EDT [facility] [place] [facility] [address] [place] [phone] Cheryle Pryor 04/22/2025 7:30 AM EDT P[facility] [place] [facility] [address] [place] [phone] Cheryle Pryor 04/22/2025 9:00 AM EDT [facility] [facility] [place] [facility] [address] [place] [address] 04/23/2025 7:30 AM EDT P[facility] Home [facility] / [facility] [place] [facility] [address] [place] [phone] Cheryle Pryor 04/24/2025 11:30 AM EDT [facility] / [facility] [place] [facility] [address] [place] [phone] Juanito Wasserman 04/25/2025 7:30 AM EDT [facility] / [facility] [place] [facility] [address] [place] [phone] Cheryle Pryor 04/26/2025 7:30 AM EST [facility] Home [facility] / [facility] [place] [facility] [address] [place] [phone] Cheryle Pryor 04/27/2025 [facility] Att[facility] [facility] [place] [facility] [address] [place] [address] 04/27/2025 7:30 AM EST [facility] Home [facility] / [facility] [place] [facility] [address] [place] [phone] Cheryle Pryor 04/27/2025 9:00 AM EST [facility] [facility] [place] [facility] [address] [place] [address] 04/28/2025 7:30 AM EST P[facility] Home Care / [facility] [place] [facility] [address] [place] [address] Cheryle Pryor 04/28/2025 10:30 AM EST P[facility] Home [facility] / [facility] [place] [facility] [address] [place] [address] Cheryle Pryor 04/29/2025 7:30 AM EST P[facility] / [facility] [place] [facility] [address] [place] [phone] Cheryle Pryor 04/29/2025 9:00 AM EST [facility] [facility] [place] [facility] [address] [place] [phone] 04/30/2025 7:30 AM EST P[facility] Home [facility] / [place] [place] [facility] [place] [facility] [address] [place] [phone] Cheryle Pryor 05/01/2025 7:30 AM EST P[facility] Home [facility] / [facility] [place] [facility] [address] [place] [phone] Shawna Lebron 05/01/2025 10:30 AM EST P[facility] Home [facility] / [facility] [place] [facility] [address] [place] [phone] Jhoana Grijalva 05/02/2025 7:30 AM EST P[facility] Home [facility] / [facility] [place] [facility] [address] [place] [phone] Jhoana Grijalva 05/03/2025 7:30 AM EST P[facility] Home [facility] / [facility] [place] [facility] [address] [place] [phone] Jhoana Grijalva 05/04/2025 [facility] [place] [facility] [place] [facility] [address] [place] [phone] 05/04/2025 7:30 AM EST P[facility] Home [facility] / [facility] [place] [facility] [address] [place] [phone] Cheryle Pryor 05/04/2025 9:00 AM EST [facility] [facility] [place] [facility] [address] [place] [address] 05/05/2025 7:30 AM EST PACE Home Care / [facility] [place] [facility] [address] [place] [phone] Cheryle Pryor 05/05/2025 10:30 AM EST PACE Home Care / [facility] [place] [facility] [address] [place] [phone] Cheryle Pryor 05/06/2025 7:30 AM EST PACE Home Care / [facility] [place] [facility] [address] [place] [phone] Cheryle Pryor 05/06/2025 9:00 AM EST [facility] [place] [facility] [address] [place] [phone] 05/07/2025 7:30 AM EST PACE Home Care / [facility] [place] [facility] [address] [place] [phone] Cheryle Pryor 05/07/2025 9:00 AM EST Appointment [facility] [address] [place] [address] Rambo Barlow MD [address] [address] 05/08/2025 7:30 AM EST PACE Home Care / [facility] [place] [facility] [address] [place] [phone] Shawna Lebron 05/08/2025 10:30 AM EST PACE Home Care / [facility] [place] [facility] [address] [place] [phone] Jhoana Grijalva 05/09/2025 7:30 AM EST PACE Home [facility] / [facility] [place] [facility] [address] [place] [phone] Cheryle Pryor 05/10/2025 7:30 AM EST PACE Home [facility] / [facility] [place] [facility] [address] [place] [phone] Cheryle Pryor 05/11/2025 [facility] [facility] [place] [facility] [address] [place] [phone] 05/11/2025 7:30 AM EST [facility] Home [facility] / [facility] [place] [facility] [address] [place] [phone] Cheryle Pryor 05/11/2025 9:00 AM EST [facility] [facility] [place] [facility] [address] [place] [phone] 05/12/2025 7:30 AM EST P[facility] / [facility] [place] [facility] [address] [place] [phone] Cheryle Pryor 05/12/2025 10:30 AM EST P[facility] / [facility] [place] [facility] [address] [place] [phone] Cheryle Pryor 05/13/2025 7:30 AM EST [facility] / [facility] [place] [facility] [address] [place] [phone] Cheryle Pryor 05/13/2025 9:00 AM EST [facility] [facility] [place] [facility] [address] [place] [phone] 05/14/2025 7:30 AM EST [facility] Home [facility] / [facility] [place] [facility] [address] [place] [address] Cheryle Pryor 05/15/2025 7:30 AM EST [facility] Home [facility] / [facility] [place] [facility] [address] [place] [address] Shawna Lebron 05/15/2025 10:30 AM EST [facility] Home [facility] / [facility] [place] [facility] [address] [place] [phone] Jhoana Grijalva 05/16/2025 7:30 AM EST P[facility] Home [facility] / [facility] [place] [facility] [address] [place] [phone] Jhoana Grijalva 05/17/2025 7:30 AM EST P[facility] Home [facility] / [facility] [place] [facility] [address] [place] [phone] Jhoana Grijalva 05/18/2025 [facility] [facility] [place] [facility] [address] [place] [phone] 05/18/2025 7:30 AM EST P[facility] Home [facility] / [facility] [place] [facility] [address] [place] [phone] Cheryle Pryor 05/18/2025 9:00 AM EST [facility] [facility] [place] [facility] [address] [place] [phone] 05/19/2025 7:30 AM EST [facility] Home [facility] / [facility] [place] [facility] [address] [place] [phone] Cheryle Pryor 05/19/2025 10:30 AM EST [facility] / [facility] [place] [facility] [address] [place] [phone] Cheryle Pryor 05/20/2025 7:30 AM EST P[facility] Home [facility] / [facility] [place] [facility] [address] [place] [phone] Cheryle Pryor 05/20/2025 9:00 AM EST [facility] [facility] [place] [facility] [address] [place] [phone] 05/21/2025 7:30 AM EST [facility] Home [facility] / [facility] [place] [facility] [address] [place] [phone] Cheryle Pryor 05/22/2025 7:30 AM EST [facility] Home [facility] / [facility] [place] [facility] [address] [place] [phone] Shawna Lebron 05/22/2025 10:30 AM EST [facility] Home [facility] / [facility] [place] [facility] [address] [place] [phone] Jhoana Grijalva 05/23/2025 7:30 AM EST [facility] Home [facility] / [facility] [place] [facility] [address] [place] [phone] Cheryle Pryor 05/24/2025 7:30 AM EST P[facility] Home [facility] / [facility] [place] [facility] [address] [place] [phone] Cheryle Pryor 05/25/2025 [facility] [facility] [place] [facility] [address] [place] [phone] 05/25/2025 7:30 AM EST P[facility] Home [facility] / [facility] [place] [facility] [address] [place] [phone] Cheryle Pryor 05/25/2025 9:00 AM EST [facility] [facility] [place] [facility] [address] [place] [address] 05/26/2025 7:30 AM EST [facility] Home [facility] / [facility] [place] [facility] [address] [place] [address] Cheryle Pryor 05/26/2025 10:30 AM EST [facility] Home [facility] / [facility] [place] [facility] [address] [place] [address] Cheryle Pryor 05/27/2025 7:30 AM EST P[facility] Home [facility] / [facility] [place] [facility] [address] [place] [address] Cheryle Pryor 05/27/2025 9:00 AM EST [facility] [facility] [place] [facility] [address] [place] [address] 05/28/2025 7:30 AM EST P[facility] Home [facility] / [facility] [place] [facility] [address] [place] [phone] Cheryle Pryor 05/29/2025 7:30 AM EST P[facility] Home [facility] / [facility] [place] [facility] [address] [place] [phone] Shawna Lebron 05/29/2025 10:30 AM EST P[facility] Home [facility] / [facility] [place] [facility] [address] [place] [address] Jhoana Grijalva 05/30/2025 7:30 AM EST P[facility] Home [facility] / [facility] [place] [facility] [address] [place] [phone] Jhoana Grijalva 05/31/2025 7:30 AM EST P[facility] Home [facility] / [facility] [place] [facility] [address] [place] [address] Jhoana Grijalva 06/01/2025 [facility] [facility] [place] [facility] [address] [place] [address] 06/01/2025 7:30 AM EST P[facility] Home [facility] / [facility] [place] [facility] [address] [place] [phone] Cheryle Pryor 06/01/2025 9:00 AM EST [facility] [facility] [place] [facility] [address] [place] [address] 06/02/2025 7:30 AM EST P[facility] Home [facility] / [facility] [place] [facility] [address] [place] [phone] Cheryle Pryor 06/02/2025 10:30 AM EST P[facility] Home [facility] / [facility] [place] [facility] [address] [place] [phone] Cheryle Pryor 06/03/2025 7:30 AM EST P[facility] Home [facility] / [facility] [place] [facility] [address] [place] [phone] Cheryle Pryor 06/03/2025 9:00 AM EST [facility] [facility] [place] [facility] [address] [place] [address] 06/04/2025 7:30 AM EST P[facility] Home [facility] / [facility] [place] [facility] [address] [place] [phone] Cheryle Pryor 06/05/2025 7:30 AM EST P[facility] Home [facility] / [facility] [place] [facility] [address] [place] [phone] Shawna Lebron 06/05/2025 10:30 AM EST P[facility] Home [facility] / [facility] [place] [facility] [address] [place] [address] Jhoana Grijalva 06/06/2025 7:30 AM EST P[facility] Home [facility] / [facility] [place] [facility] [address] [place] [address] Cheryle Pryor 06/07/2025 7:30 AM EST P[facility] Home [facility] / [facility] [place] [facility] [address] [place] [address] Cheryle Pryor 06/08/2025 [facility] Attendance[facility] [facility] [place] [facility] [address] [place] [address] 06/08/2025 9:00 AM EST [facility] [facility] [place] [facility] [address] [place] [address] 06/10/2025 9:00 AM EST [facility] [facility] [place] [facility] [address] [place] [address] 06/15/2025 [facility] Attend[facility] [place] [facility] [address] [place] [address] 06/15/2025 9:00 AM EST [facility] [place] [facility] [address] [place] [address] 06/17/2025 9:00 AM EST [facility] [place] [facility] [address] [place] [address] 06/22/2025 [facility] [place] [facility] [address] [place] [address] 06/22/2025 9:00 AM EST [facility] [place] [facility] [address] [place] [address] 06/24/2025 9:00 AM EST [facility] [place] [facility] [address] [place] [address] 06/29/2025 [facility] [place] [facility] [address] [place] [phone] 06/29/2025 9:00 AM EST [facility] [place] [facility] [address] [place] [address] 07/01/2025 9:00 AM EST [facility] [place] [facility] [address] [place] [phone] 07/06/2025 [facility] [address] [place] [phone] 07/06/2025 9:00 AM EST [facility] [place] [facility] [address] [place] [phone] 2025 9:00 AM EST [facility] [place] [facility] [address] [place] [phone] 07/13/2025 [facility] [place] [facility] [address] [place] [phone] 07/13/2025 9:00 AM EST [facility] [place] [facility] [address] [place] [address] 07/15/2025 9:00 AM EST [facility] [place] [facility] [address] [place] [phone] 07/20/2025 [facility] [place] [facility] [address] [place] [phone] 07/20/2025 9:00 AM EST [facility] [place] [facility] [address] [place] [phone] 07/22/2025 9:00 AM EST [facility] [place] [facility] [address] [place] [address] 07/27/2025 [facility] Att[facility] [place] [facility] [address] [place] [address] 07/27/2025 9:00 AM EST [facility] [place] [facility] [address] [place] [address] 07/29/2025 9:00 AM EST [facility] [place] [facility] [address] [place] [phone] 08/03/2025 [facility] [place] [facility] [address] [place] [phone] 08/03/2025 9:00 AM EST [facility] [place] [facility] [address] [place] [phone] 08/05/2025 9:00 AM EST [facility] [place] [facility] [address] [place] [phone] 08/10/2025 [facility] [place] [facility] [address] [place] [phone] 08/12/2025 9:00 AM EST [facility] [place] [facility] [address] [place] [phone] 08/17/2025 [facility] [place] [facility] [address] [place] [phone] 08/19/2025 9:00 AM EST [facility] [place] [facility] [address] [place] [phone] 08/24/2025 [facility] [place] [facility] [address] [place] [phone] 08/26/2025 9:00 AM EST [facility] [place] [facility] [address] [place] [phone] 08/31/2025 [facility] [place] [facility] [address] [place] [phone] 09/02/2025 9:00 AM EDT [facility] [place] [facility] [address] [place] [phone] 09/07/2025 [facility] [place] [facility] [address] [place] [phone] 09/09/2025 9:00 AM EDT [facility] [place] [facility] [address] [place] [phone] 09/14/2025 [facility] [place] [facility] [address] [place] [phone] 09/16/2025 9:00 AM EDT [facility] [place] [facility] [address] [place] [phone] 09/21/2025 [facility] [place] [facility] [address] [place] [phone] 09/23/2025 9:00 AM EDT [facility] [place] [facility] [address] [place] [phone] 09/28/2025 [facility] [place] [facility] [address] [place] [phone] 09/30/2025 9:00 AM EDT [facility] [place] [facility] [address] [place] [phone] 10/05/2025 [facility] [address] [place] [phone] 10/07/2025 9:00 AM EDT [facility] [place] [facility] [address] [place] [address] 10/12/2025 [facility] [address] [place] [phone] 10/14/2025 9:00 AM EDT [facility] [address] [place] [address] 10/19/2025 [facility] [address] [place] [phone] 10/21/2025 9:00 AM EDT [facility] [address] [place] [phone] 10/26/2025 [facility] [address] [place] [phone] 10/28/2025 9:00 AM EDT [facility] [address] [place] [phone] 11/02/2025 [facility] [address] [place] [phone] 11/04/2025 9:00 AM EDT [facility] [address] [place] [phone] 11/09/2025 [facility] [place] [facility] [address] [place] [phone] 11/11/2025 9:00 AM EDT [facility] [address] [place] [phone] 11/16/2025 [facility] [address] [place] [address] 11/18/2025 9:00 AM EDT [facility] [address] [place] [address] 11/23/2025 [facility] [address] [place] [address] 11/25/2025 9:00 AM EDT [facility] [address] [place] [address] 11/30/2025 [facility] [address] [place] [address] 12/02/2025 9:00 AM EDT [facility] [address] [place] [address] 12/07/2025 [facility] [address] [place] [phone] 12/09/2025 9:00 AM EDT [facility] [address] [place] [address] 12/14/2025 [facility] [address] [place] [address] 12/16/2025 9:00 AM EDT [facility] [address] [place] [address] 12/21/2025 [facility] [address] [place] [address] 12/23/2025 9:00 AM EDT [facility] [address] [place] [address] 12/28/2025 [facility] [place] [facility] [address] [place] [address] 12/30/2025 9:00 AM EDT [facility] [address] [place] [address] 01/04/2026 [facility] [address] [place] [address] 01/06/2026 9:00 AM EDT [facility] [address] [place] [address] 01/11/2026 [facility] [address] [place] [address] 01/13/2026 9:00 AM EDT [facility] [address] [place] [phone] 01/18/2026 [facility] [address] [place] [phone] 01/20/2026 9:00 AM EDT [facility] [address] [place] [address] 01/25/2026 [facility] [address] [place] [address] 01/27/2026 9:00 AM EDT [facility] [address] [place] [address] 02/01/2026 [facility] [address] [place] [address] 02/03/2026 9:00 AM EDT [facility] [address] [place] [address] 02/08/2026 [facility] [address] [place] [address] 02/10/2026 9:00 AM EDT [facility] [address] [place] [address] 02/15/2026 [facility] [address] [place] [address] 02/17/2026 9:00 AM EDT [facility] [address] [place] [address] 02/22/2026 [facility] [address] [place] [address] 02/24/2026 9:00 AM EDT [facility] [address] [place] [phone] 03/03/2026 9:00 AM EDT [facility] [address] [place] [phone] 03/10/2026 9:00 AM EDT [facility] [address] [place] [phone] 03/17/2026 9:00 AM EDT [facility] [address] [place] [phone] 03/24/2026 9:00 AM EDT [facility] [address] [place] [phone] 03/31/2026 9:00 AM EDT [facility] [address] [place] [phone] 04/07/2026 9:00 AM EDT [facility] [place] [facility] [address] [place] [phone] 04/14/2026 9:00 AM EDT [facility] [address] [place] [address] 04/21/2026 9:00 AM EDT [facility] [address] [place] [address] documented as of this encounter Procedures Procedure Name Priority Date/Time Associated Diagnosis Comments ..MISCELLANEOUS REFERENCE LAB TEST 04/14/2024 documented in this encounter Results * Miscellaneous reference lab test (04/14/2024) us Provider Onbase MD LAB BLOOD ORDERABLES Final Re sult documented in this encounter Visit Diagnoses Diagnosis Iron deficiency anemia, unspecified documented in this encounter Care Teams Signal Worker Relationship Specialty Start Date End Date Eleazar Gleason MD [phone] [address] PCP - General 04/11/24 05/01/24 documented as of this encounter
--- OUTSIDE RECORDS SUMMARY | 2024-04-16 11:39 | XMS_ITS | Encounter Summary ---
Author Organization [facility] Address [address] [place] [address] Care Team Providers Care Recycling Crew Supervisor Name Role Phone Eleazar Gleason MD Primary Care Provider [phone] Encounter Details Date Type Department Care Team (Late st Contact Info) Description 04/16/2024 11:39 AM EDT Hospital Encounter TH HISTORIC ENCOUNTERS EASTERN CONVERSION ONLY Wale Pimentel, TAYA [address] [facility] [address] [place] [address] Social History Tobacco Use Types Packs/Day Years [...] 8:29 AM EDT Chris Moya RN * [place] Suicide Severity Rating Scale (Screener/Recent Self-Report) Question [...] you? No 03/19/2025 2:21 PM EDT Mariah Padron Do you feel happy most of th e time? Yes 03/19/2025 2:21 PM EDT Mariah Adams Do you often feel helpless? Yes 03/19/2025 2: 21 PM EDT Mariah Adams Do you prefer to stay at [facility], rather than going out and doing new things? No 03/19/2025 2:21 PM EDT Mariah Adams Do you feel you have more problems with memory than most? Yes 03/19/2025 2:21 PM EDT Mariah Adams Do you think it is wonderful to be alive now? Yes 03/19/2025 2:21 PM EDT Maraih Adams Do you feel pretty worthless the way [...] Mariah Justin documented as of this encounter Plan of Treatment Upcoming Encounters Date Type Department Care Team (Late st Contact Info) Description 04/09/2025 11:30 AM EDT Clinical Support [facility] [place] [address] [place] [phone] 04/13/2025 PACE Attendance[facility] [place] [facility] [address] [place] [phone] 04/13/2025 7:30 AM EDT PACE Home Care / P[facility] Home [facility] [address] [place] [phone] Cheryle Pryor 04/13/2025 9:00 AM EDT P[facility] Attend[facility] [place] [facility] [address] [place] [phone] 04/14/2025 7:30 AM EDT PACE Home Care / P[facility] [address] [place] [phone] Cheryle Pryor 04/14/2025 10:30 AM EDT PACE Home Care / PACE Home Visit [facility] [place] [facility] [address] [place] [phone] Cheryle Pryor 04/14/2025 1:00 PM EDT Clinical Support Lung Screening Program - [address] [place] [address] 04/15/2025 7:30 AM EDT PACE Home Care / [facility] [place] [facility] [address] [place] [address] Cheryle Pryor 04/15/2025 9:00 AM EDT [facility] [facility] [place] [facility] [address] [place] [address] 04/16/2025 7:30 AM EDT PACE Home Care / [facility] [place] [facility] [address] [place] [address] Cheryle Pryor 04/17/2025 7:30 AM EDT PACE Home Care / [facility] [place] [facility] [address] [place] [address] Shawna Lebron 04/17/2025 10:30 AM EDT PACE Home Care / [facility] [place] [facility] [address] [place] [address] Jhoana Grijalva 04/18/2025 7:30 AM EDT PACE Home Care / [facility] [facility] [place] [facility] [address] [place] [address] Jhoana Grijalva 04/19/2025 7:30 AM EDT PACE Home Care / [place] [facility] [place] [facility] [place] [facility] [address] [place] [address] Jhoana Grijalva 04/20/2025 [place] [facility] [place] [facility] [address] [place] [address] 04/20/2025 7:30 AM EDT PACE Home Care / [place] [facility] [place] [facility] [address] [place] [phone] Cheryle Pryor 04/20/2025 9:00 AM EDT [facility] Att[facility] [facility] [place] [facility] [address] [place] [address] 04/21/2025 7:30 AM EDT PACE Home Care / [facility] [facility] [place] [facility] [address] [place] [address] Cheryle Pryor 04/21/2025 10:30 AM EDT PACE Home Care / [facility] [place] [facility] [address] [place] [address] Cheryle Pryor 04/22/2025 7:30 AM EDT PACE Home Care / [facility] [facility] [place] [facility] [address] [place] [phone] Cheryle Pryor 04/22/2025 9:00 AM EDT [facility] [place] [facility] [address] [place] [phone] 04/23/2025 7:30 AM EDT PACE Home Care / [facility] [facility] [place] [facility] [address] [place] [address] Cheryle Pryor 04/24/2025 11:30 AM EDT PACE Home Care / [facility] [place] [facility] [address] [place] [phone] Juanito Wasserman 04/25/2025 7:30 AM EDT PACE Home Care / [facility] [place] [facility] [address] [place] [address] Cheryle Pryor 04/26/2025 7:30 AM EST PACE Home Care / [facility] [place] [facility] [address] [place] [phone] Cheryle Pryor 04/27/2025 [facility] Att[facility] [facility] [place] [facility] [address] [place] [phone] 04/27/2025 7:30 AM EST PACE Home Care / [facility] [place] [facility] [address] [place] [address] Cheryle Pryor 04/27/2025 9:00 AM EST [facility] [place] [facility] [place] [facility] [address] [place] [phone] 04/28/2025 7:30 AM EST PACE Home Care / [place] [facility] [place] [facility] [address] [place] [phone] Cheryle Pryor 04/28/2025 10:30 AM EST PACE Home Care / [place] [facility] [place] [facility] [address] [place] [address] Cheryle Pryor 04/29/2025 7:30 AM EST PACE Home Care / [facility] [place] [facility] [address] [place] [phone] Cheryle Pryor 04/29/2025 9:00 AM EST [facility] [facility] [place] [facility] [address] [place] [phone] 04/30/2025 7:30 AM EST PACE Home Care / [facility] [place] [facility] [address] [place] [address] Cheryle Pryor 05/01/2025 7:30 AM EST PACE Home Care / [place] [facility] [place] [facility] [address] [place] [phone] Shawna Lebron 05/01/2025 10:30 AM EST PACE Home Care / [facility] [place] [facility] [address] [place] [address] Jhoana Grijalva 05/02/2025 7:30 AM EST PACE Home Care / [facility] [place] [facility] [address] [place] [address] Jhoana Grijalva 05/03/2025 7:30 AM EST PACE Home Care / [facility] [place] [facility] [address] [place] [phone] Jhoana Grijalva 05/04/2025 [facility] Att[facility] [facility] [place] [facility] [address] [place] [phone] 05/04/2025 7:30 AM EST PACE Home Care / [facility] [facility] [place] [facility] [address] [place] [phone] Cheryle Pryor 05/04/2025 9:00 AM EST [facility] [place] [facility] [place] [facility] [address] [place] [address] 05/05/2025 7:30 AM EST PACE Home Care / [facility] [place] [facility] [address] [place] [phone] Cheryle Pryor 05/05/2025 10:30 AM EST PACE Home Care / [facility] [place] [facility] [address] [place] [address] Cheryle Pryor 05/06/2025 7:30 AM EST PACE Home Care / [place] [facility] [place] [facility] [address] [place] [phone] Cheryle Pryor 05/06/2025 9:00 AM EST [facility] [place] [facility] [place] [facility] [address] [place] [address] 05/07/2025 7:30 AM EST PACE Home Care / [facility] [place] [facility] [address] [place] [address] Cheryle Pryor 05/07/2025 9:00 AM EST Appointment [facility] [address] [place] [address] Rambo Barlow MD [address] [address] 05/08/2025 7:30 AM EST PACE Home Care / [facility] [place] [facility] [address] [place] [phone] Shawna Lebron 05/08/2025 10:30 AM EST PACE Home Care / [facility] [place] [facility] [address] [place] [phone] Jhoana Grijalva 05/09/2025 7:30 AM EST PACE Home Care / [facility] [place] [facility] [address] [place] [phone] Cheryle Pryor 05/10/2025 7:30 AM EST PACE Home Care / [facility] [facility] [place] [facility] [address] [place] [phone] Cheryle Pryor 05/11/2025 PACE Attendance[place] [facility] [place] [facility] [address] [place] [address] 05/11/2025 7:30 AM EST PACE Home Care / [facility] [place] [facility] [address] [place] [phone] Cheryle Pryor 05/11/2025 9:00 AM EST [facility] [facility] [place] [facility] [address] [place] [address] 05/12/2025 7:30 AM EST PACE Home Care / [facility] [place] [facility] [address] [place] [address] Cheryle Pryor 05/12/2025 10:30 AM EST PACE Home Care / [facility] [address] [place] [address] Cheryle Pryor 05/13/2025 7:30 AM EST PACE Home Care / [facility] [place] [facility] [address] [place] [phone] Cheryle Pryor 05/13/2025 9:00 AM EST PACE Attendance[facility] [place] [facility] [address] [place] [address] 05/14/2025 7:30 AM EST PACE Home Care / [facility] [place] [facility] [address] [place] [phone] Cheryle Pryor 05/15/2025 7:30 AM EST PACE Home Care / [facility] [place] [facility] [address] [place] [phone] Shawna Lebron 05/15/2025 10:30 AM EST PACE Home Care / [facility] [place] [facility] [address] [place] [address] Jhoana Grijalva 05/16/2025 7:30 AM EST PACE Home Care / [facility] [place] [facility] [address] [place] [phone] Jhoana Grijalva 05/17/2025 7:30 AM EST PACE Home Care / [facility] [facility] [place] [facility] [address] [place] [phone] Jhoana Grijalva 05/18/2025 [place] [facility] [place] [facility] [address] [place] [address] 05/18/2025 7:30 AM EST PACE Home Care / [facility] [address] [place] [phone] Cheryle Pryor 05/18/2025 9:00 AM EST [facility] [place] [facility] [place] [facility] [address] [place] [address] 05/19/2025 7:30 AM EST PACE Home Care / [facility] [place] [facility] [address] [place] [phone] Cheryle Pryor 05/19/2025 10:30 AM EST PACE Home Care / [facility] [place] [facility] [address] [place] [phone] Cheryle Pryor 05/20/2025 7:30 AM EST PACE Home Care / [facility] [place] [facility] [address] [place] [phone] Cheryle Pryor 05/20/2025 9:00 AM EST [facility] [facility] [place] [facility] [address] [place] [address] 05/21/2025 7:30 AM EST PACE Home Care / [facility] [place] [facility] [address] [place] [phone] Cheryle Pryor 05/22/2025 7:30 AM EST PACE Home Care / [facility] [place] [facility] [address] [place] [phone] Shawna Lebron 05/22/2025 10:30 AM EST PACE Home Care / [facility] [place] [facility] [address] [place] [address] Jhoana Grijalva 05/23/2025 7:30 AM EST PACE Home Care / [facility] [place] [facility] [address] [place] [address] Cheryle Pryor 05/24/2025 7:30 AM EST PACE Home Care / [facility] [place] [facility] [address] [place] [address] Cheryle Pryor 05/25/2025 [facility] [facility] [place] [facility] [address] [place] [address] 05/25/2025 7:30 AM EST PACE Home Care / [facility] [address] [place] [phone] Cheryle Pryor 05/25/2025 9:00 AM EST [facility] [facility] [place] [facility] [address] [place] [address] 05/26/2025 7:30 AM EST PACE Home Care / [facility] [address] [place] [phone] Cheryle Pryor 05/26/2025 10:30 AM EST PACE Home Care / [facility] [facility] [place] [facility] [address] [place] [address] Cheryle Pryor 05/27/2025 7:30 AM EST PACE Home Care / [facility] [address] [place] [phone] Cheryle Pryor 05/27/2025 9:00 AM EST [facility] [facility] [place] [facility] [address] [place] [address] 05/28/2025 7:30 AM EST PACE Home Care / [facility] [address] [place] [address] Cheryle Pryor 05/29/2025 7:30 AM EST PACE Home Care / [facility] [address] [place] [address] Shawna Lebron 05/29/2025 10:30 AM EST PACE Home Care / [facility] [address] [place] [address] Jhoana Grijalva 05/30/2025 7:30 AM EST PACE Home Care / [facility] [address] [place] [phone] Jhoana Grijalva 05/31/2025 7:30 AM EST PACE Home Care / [facility] [address] [place] [phone] Jhoana Grijalva 06/01/2025 [facility] [place] [facility] [place] [facility] [address] [place] [address] 06/01/2025 7:30 AM EST PACE Home Care / [facility] [address] [place] [phone] Cheryle Pryor 06/01/2025 9:00 AM EST [facility] [facility] [place] [facility] [address] [place] [address] 06/02/2025 7:30 AM EST PACE Home Care / [facility] [address] [place] [phone] Cheryle Pryor 06/02/2025 10:30 AM EST PACE Home Care / [facility] [address] [place] [address] Cheryle Pryor 06/03/2025 7:30 AM EST PACE Home Care / [facility] [place] [facility] [address] [place] [address] Cheryle Pryor 06/03/2025 9:00 AM EST [facility] [facility] [place] [facility] [address] [place] [address] 06/04/2025 7:30 AM EST PACE Home Care / [facility] [address] [place] [address] Cheryle Pryor 06/05/2025 7:30 AM EST PACE Home Care / [facility] [address] [place] [phone] Shawna Lebron 06/05/2025 10:30 AM EST PACE Home Care / [facility] [address] [place] [address] Jhoana Grijalva 06/06/2025 7:30 AM EST PACE Home Care / [facility] [address] [place] [phone] Cheryle Pryor 06/07/2025 7:30 AM EST PACE Home Care / [facility] [place] [facility] [address] [place] [phone] Cheryle Pryor 06/08/2025 [facility] Att[facility] [facility] [place] [facility] [address] [place] [address] 06/08/2025 9:00 AM EST [facility] [facility] [place] [facility] [address] [place] [address] 06/10/2025 9:00 AM EST [facility] [place] [facility] [address] [place] [address] 06/15/2025 [facility] Att[facility] [place] [facility] [address] [place] [address] 06/15/2025 9:00 AM EST [facility] [place] [facility] [address] [place] [address] 06/17/2025 9:00 AM EST [facility] [place] [facility] [address] [place] [address] 06/22/2025 P[facility] Att[facility] [place] [facility] [address] [place] [address] 06/22/2025 9:00 AM EST [facility] [place] [facility] [address] [place] [address] 06/24/2025 9:00 AM EST [facility] [place] [facility] [address] [place] [address] 06/29/2025 P[facility] Att[facility] [place] [facility] [address] [place] [address] 06/29/2025 9:00 AM EST [facility] [place] [facility] [address] [place] [address] 07/01/2025 9:00 AM EST [facility] [place] [facility] [address] [place] [address] 07/06/2025 P[facility] Attend[facility] [place] [facility] [address] [place] [address] 07/06/2025 9:00 AM EST [facility] [place] [facility] [address] [place] [address] 2025 9:00 AM EST [facility] [place] [facility] [address] [place] [address] 07/13/2025 [facility] [place] [facility] [address] [place] [address] 07/13/2025 9:00 AM EST [facility] [place] [facility] [address] [place] [phone] 07/15/2025 9:00 AM EST [facility] [place] [facility] [address] [place] [address] 07/20/2025 [facility] [place] [facility] [address] [place] [address] 07/20/2025 9:00 AM EST [facility] [place] [facility] [address] [place] [address] 07/22/2025 9:00 AM EST [facility] [place] [facility] [address] [place] [address] 07/27/2025 [facility] [place] [facility] [address] [place] [address] 07/27/2025 9:00 AM EST [facility] [place] [facility] [address] [place] [address] 07/29/2025 9:00 AM EST [facility] [place] [facility] [address] [place] [address] 08/03/2025 [facility] Attend[facility] [place] [facility] [address] [place] [address] 08/03/2025 9:00 AM EST [facility] [place] [facility] [address] [place] [address] 08/05/2025 9:00 AM EST [facility] [place] [facility] [address] [place] [address] 08/10/2025 [facility] Att[facility] [place] [facility] [address] [place] [address] 08/12/2025 9:00 AM EST [facility] [place] [facility] [address] [place] [address] 08/17/2025 [facility] Att[facility] [place] [facility] [address] [place] [address] 08/19/2025 9:00 AM EST P[facility] Attend[facility] [place] [facility] [address] [place] [address] 08/24/2025 PACE Attend[facility] [place] [facility] [address] [place] [address] 08/26/2025 9:00 AM EST [facility] [place] [facility] [address] [place] [address] 08/31/2025 P[facility] Attend[facility] [place] [facility] [address] [place] [address] 09/02/2025 9:00 AM EDT [facility] [place] [facility] [address] [place] [address] 09/07/2025 [facility] [place] [facility] [address] [place] [address] 09/09/2025 9:00 AM EDT [facility] [place] [facility] [address] [place] [address] 09/14/2025 [facility] [place] [facility] [address] [place] [address] 09/16/2025 9:00 AM EDT [facility] Att[facility] [place] [facility] [address] [place] [address] 09/21/2025 P[facility] Att[facility] [place] [facility] [address] [place] [address] 09/23/2025 9:00 AM EDT [facility] Att[facility] [place] [facility] [address] [place] [address] 09/28/2025 P[facility] Att[facility] [place] [facility] [address] [place] [address] 09/30/2025 9:00 AM EDT P[facility] Att[facility] [place] [facility] [address] [place] [address] 10/05/2025 P[facility] Att[facility] [place] [facility] [address] [place] [address] 10/07/2025 9:00 AM EDT [facility] [place] [facility] [address] [place] [address] 10/12/2025 P[facility] [place] [facility] [address] [place] [address] 10/14/2025 9:00 AM EDT P[facility] Att[facility] [place] [facility] [address] [place] [address] 10/19/2025 PACE Attendance[facility] [address] [place] [address] 10/21/2025 9:00 AM EDT [facility] [place] [facility] [address] [place] [address] 10/26/2025 [facility] [place] [facility] [address] [place] [address] 10/28/2025 9:00 AM EDT [facility] [place] [facility] [address] [place] [address] 11/02/2025 [facility] [place] [facility] [address] [place] [address] 11/04/2025 9:00 AM EDT [facility] [place] [facility] [address] [place] [address] 11/09/2025 [facility] [place] [facility] [address] [place] [address] 11/11/2025 9:00 AM EDT [facility] [place] [facility] [address] [place] [address] 11/16/2025 [facility] [place] [facility] [address] [place] [address] 11/18/2025 9:00 AM EDT [facility] [place] [facility] [address] [place] [address] 11/23/2025 [facility] [place] [facility] [address] [place] [address] 11/25/2025 9:00 AM EDT [facility] [place] [facility] [address] [place] [address] 11/30/2025 P[facility] Att[facility] [place] [facility] [address] [place] [address] 12/02/2025 9:00 AM EDT [facility] [place] [facility] [address] [place] [address] 12/07/2025 [facility] Att[facility] [place] [facility] [address] [place] [address] 12/09/2025 9:00 AM EDT [facility] Att[facility] [place] [facility] [address] [place] [address] 12/14/2025 P[facility] Att[facility] [place] [facility] [address] [place] [address] 12/16/2025 9:00 AM EDT P[facility] Att[facility] [place] [facility] [address] [place] [address] 12/21/2025 PACE Attend[facility] [place] [facility] [address] [place] [address] 12/23/2025 9:00 AM EDT [facility] [place] [facility] [address] [place] [address] 12/28/2025 PACE Attendance/Day [facility] [address] [place] [phone] 12/30/2025 9:00 AM EDT [facility] Att[facility] [address] [place] [address] 01/04/2026 [facility] [address] [place] [address] 01/06/2026 9:00 AM EDT [facility] [address] [place] [address] 01/11/2026 [facility] [address] [place] [address] 01/13/2026 9:00 AM EDT [facility] [address] [place] [address] 01/18/2026 [facility] [address] [place] [address] 01/20/2026 9:00 AM EDT [facility] [address] [place] [address] 01/25/2026 [facility] [address] [place] [address] 01/27/2026 9:00 AM EDT [facility] [address] [place] [phone] 02/01/2026 [facility] [address] [place] [phone] 02/03/2026 9:00 AM EDT [facility] [address] [place] [phone] 02/08/2026 [facility] [address] [place] [phone] 02/10/2026 9:00 AM EDT [facility] [address] [place] [address] 02/15/2026 [facility] [address] [place] [address] 02/17/2026 9:00 AM EDT [facility] [address] [place] [address] 02/22/2026 [facility] [address] [place] [phone] 02/24/2026 9:00 AM EDT [facility] [address] [place] [phone] 03/03/2026 9:00 AM EDT [facility] [address] [place] [address] 03/10/2026 9:00 AM EDT [facility] [address] [place] [address] 03/17/2026 9:00 AM EDT [facility] [address] [place] [address] 03/24/2026 9:00 AM EDT [facility] [address] [place] [phone] 03/31/2026 9:00 AM EDT [facility] [address] [place] [phone] 04/07/2026 9:00 AM EDT [facility] [address] [place] [phone] 04/14/2026 9:00 AM EDT [facility] [address] [place] [phone] 04/21/2026 9:00 AM EDT [facility] [address] [place] [phone] documented as of this encounter Procedures Procedure Name Priority Date/Time Associated Diagnosis Comments CR SPINE CERVICA W OBL FLEX EX Routine 04/16/2024 3:54 PM EDT CR SHOULDER LT MIN 2 VIEW Routine 04/16/2024 3:49 PM EDT documented in this encounter Results * CR SPINE CERVICA W OBL FLEX EX (04/16/2024 3:54 PM EDT) Anatomical Region Laterality Modality Radiographic Edith ging 04/16/2024 12:1 3 PM EDT Narrative 04/16/2024 3:54 PM EDT [facility] Diagnostic Imaging Department [address] [place] [id number] Patient: LUCILA GRIFFITHS Marino FoyB./Age/Sex: 1960 - 63 - F Unit#: [id number] Location/Status: SPDIGEN/REG CLI Mnemonic/Ordering Site: [facility] Ordering Physician: WALE PIMENTEL CR Spine Cervica W Obl Flex Ex - 04/16/24 - 1235 Report Status:Signed History: Neck pain since fall 3 weeks ago. Findings: AP, oblique, lateral and open-mouth odontoid views are supplemented with lateral flexion and extension views. Straightening of the normal cervical lordosis is seen and flexion and extension are limited. Vertebral alignment is normal. No abnormal movement of the cervical vertebra is seen with flexion and extension positioning. A corticated ossicle is seen at the tip of the C7 spinous process, compatible with an unfused apophysis. The vertebral bodies maintain normal height. The disc spaces are preserved. Anterior vertebral endplate spurring is noted from C4 through C7. The apophyseal joints are intact, with scattered arthritic changes. There is bony neural foraminal narrowing on the left at C3-4 due to predominantly to facet hypertrophy. The prevertebral soft tissues, predental distance and odontoid process appear normal. Impression: 1. Straightened cervical lordosis, possibly due to muscle spasm. 2. No acute cervical spine fracture or subluxation. 3. Bony neural foraminal narrowing on the left at C3-4 due to facet hypertrophy. Dictating Physician: BERTA MOCK MD Electronically Signed by: BERTA MOCK MD Dic Date/Time: 04/16/24 1549 Sign date/Time: 04/16/24 1554 Procedure Note Berta Mock MD - 04/22/2024 [facility] Diagnostic Imaging Department [address] [place] [id number] Patient: LUCILA GRIFFITHS Marino FoyB./Age/Sex: 1960 - 63 - F Unit#: [id number] Location/Status: SPDIGEN/REG CLI Mnemonic/Ordering Site: [facility] Ordering Physician: WALE PIMENTEL CR Spine Cervica W Obl Flex Ex - 04/16/24 - 1235 Report Status:Signed History: Neck pain since fall 3 weeks ago. Findings: AP, oblique, lateral and open-mouth odontoid views are supplemented with lateral flexion and extension views. Straightening of the normal cervical lordosis is seen and flexion andextension are limited. Vertebral alignment is normal. No abnormal movement of thecervical vertebra is seen with flexion and extension positioning. A corticated ossicle is seen at the tip of the C7 spinous process,compatible with an unfused apophysis. The vertebral bodies maintain normal height. The disc spaces arepreserved. Anterior vertebral endplate spurring is noted from C4 through C7. Theapophyseal joints are intact, with scattered arthritic changes. There is bonyneural foraminal narrowing on the left at C3-4 due to predominantly to facet hypertrophy. The prevertebral soft tissues, predental distance and odontoid processappear normal. Impression: 1. Straightened cervical lordosis, possibly due to muscle spasm. 2. No acute cervical spine fracture or subluxation. 3. Bony neural foraminal narrowing on the left at C3-4 due to facet hypertrophy. Dictating Physician: BERTA MOCK MD Electronically Signed by: BERTA MOCK MD Dic Date/Time: 04/16/24 1543 Sign date/Time: 04/16/24 9476 us Wale Pimentel [facility] IMG XR PROCEDURES Final Resul t * CR SHOULDER LT MIN 2 VIEW (04/16/2024 3:49 PM EDT) Anatomical Region Laterality Modality Radiographic Edith ging 04/16/2024 12:2 2 PM EDT Narrative 04/16/2024 3:49 PM EDT [facility] Diagnostic Imaging Department [address] [place] [address] Patient: LUCILA GRIFFITHS Marino /Age/Sex: 1960 - 63 - F Unit#: [id number] Location/Status: SPDIGEN/REG CLI Mnemonic/Ordering Site: [facility] Ordering Physician: WALE PIMENTEL CR Shoulder LT Min 2 View - 04/16/24 - 1235 Report Status:Signed History: Left shoulder pain since fall 3 weeks ago. Findings: 3 views of the left shoulder. No fracture or dislocation is identified. The glenohumeral and acromioclavicular joints are well-maintained. A group of amorphous calcifications is seen in the soft tissues adjacent to the greater tuberosity of the humerus, measuring 6 mm in aggregate, consistent with calcific tendinitis. Impression: 1. No evidence of fracture. 2. Calcific tendinitis. [id number] Dictating Physician: BERTA MOCK MD Electronically Signed by: BERTA MOCK MD Dic Date/Time: 04/16/241547 Sign date/Time: 04/16/241548 Procedure Note Berta Mock MD - 04/22/2024 [facility] Diagnostic Imaging Department [address] [place], [place] [id number] Patient: ROSALBA GRIFFITHSShama Pichardo /Age/Sex: 1960 - 63 - F Unit#: [id number] Location/Status: SPDIGEN/REG CLI Mnemonic/Ordering Site: [facility] Ordering Physician: WALE PIMENTEL CR Shoulder LT Min 2 View - 04/16/24 - 3535 Report Status:Signed History: Left shoulder pain since fall 3 weeks ago. Findings: 3 views of the left shoulder. No fracture or dislocation is identified.The glenohumeral and acromioclavicular joints are well-maintained. A groupof amorphous calcifications is seen in the soft tissues adjacent to thegreater tuberosity of the humerus, measuring 6 mm in aggregate, consistent withcalcific tendinitis. Impression: 1. No evidence of fracture. 2. Calcific tendinitis. [id number] Dictating Physician: BERTA MOCK MD Electronically Signed by: BERTA MOCK MD Dic Date/Time: 04/16/241547 Sign date/Time: 04/16/241548 Wale Pimentel [facility] IMG XR PROCEDURES Final Resul t documented in this encounter Visit Diagnoses Not on filedocumented in this encounter Care Teams Recycling Crew Supervisor Relationship Specialty Start Date End Date Eleazar Gleason MD [address] [id number] PCP - General 04/11/24 05/01/24 documented as of this encounter
--- OUTSIDE RECORDS SUMMARY | 2024-04-18 10:57 | XMS_ITS | Encounter Summary ---
Author Organization [facility] Address [address] [place] [address] Care Team Providers Care Medical Accounts Receivable Specialist Name Role Phone Eleazar Gleason MD Primary Care Provider [phone] Encounter Details Date Type Department Care Team (Late st Contact Info) Description 04/18/2024 10:57 AM EDT Hospital Encounter TH HISTORIC ENCOUNTERS EASTERN CONVERSION ONLY Social History Tobacco Use Types Packs/Day Years [...] 8:29 AM EDT Chris Moya RN * [place] Suicide Severity Rating Scale (Screener/Recent Self-Report) Question Answer Date of Assessment Author 1. Wish to be (Past 1 Month) No 8:29 AM [facility] Jayshree Moya RN 2. Non-Specific Active Suici mimi Thoughts (Past 1 Month) No 04/06/2025 8:29 AM EDT Jayshree Moya RN 6. Suicidal Behavior (Lifetime) No 8:29 AM [facility]OT Jayshree Moya RN * Geriatric Depression Scale [...] Adams Do you prefer to stay at [facility], rather than going out and doing new things? No 03/19/2025 2:21 PM EDT Mariah Adams Do you feel you have more problems with memory than most? Yes 03/19/2025 2:21 PM EDT Mariah Adams Do you think it is wonderful to be alive now? Yes 03/19/2025 2:21 PM EDT Mariah Adams Do you feel pretty worthless the [...] Progress Notes * Historical, Notes Results - 04/18/2024 11:27 AM EDT 1127- Patient arrives, ambulatory using rolling walker for her second and final dose of Feraheme, prescribed by Dr. Gleason. She was transported by [facility] and arrives three hours early for herappointment. She says she tolerated the first dose of Feraheme without any difficulty. She reports occasional dizziness and shortness of breath with exertion. Her chief complaint is moderate fatigue.She has no questions or concerns for this nurse. Treatment plan reviewed and medication released from plan to pharmacy. Peripheral IV established without difficulty and NS flush bag hung in preparation for infusion. Patient has the call estrada in reach and is comfortably watching TV in the recliner. 1144- Feraheme hung, programmed to infuse over 30 minutes per protocol. Patient reminded of signs/symptoms of infusion reaction to be aware of. The call estrada is located in reach. 1228- Patient completed the remainder of the infusion without any difficulty. She is feeling well for discharge. No further appointments booked as the order is now complete. Patient will follow up with Dr. Gleason as scheduled at [facility]. She left the unit stable, ambulatory using rolling walker accompanied by the [facility] staff who has returned to pick patient up. documented in this encounter Plan of Treatment Upcoming Encounters Date Type Department Care Team (Late st Contact Info) Description 04/09/2025 11:30 AM EDT Clinical [facility] [address] [place] [address] 04/13/2025 [facility] Attend[facility] [place] [facility] [address] [place] [address] 04/13/2025 7:30 AM EDT PACE Home Care / PACE Home Visit [facility] [address] [place] [address] Cheryle Pryor 04/13/2025 9:00 AM EDT P[facility] Attendance[facility] [place] [facility] [address] [place] [phone] 04/14/2025 7:30 AM EDT PACE Home Care / P[facility] [address] [place] [phone] Cheryle Pryor 04/14/2025 10:30 AM EDT PACE Home Care / [facility] [address] [place] [phone] Cheryle Pryor 04/14/2025 1:00 PM EDT Clinical Support Lung Screening Program - [address] [phone] 04/15/2025 7:30 AM EDT PACE Home Care / PACE [facility] [address] [place] [address] Cheryle Pryor 04/15/2025 9:00 AM EDT P[facility] Attendance[facility] [place] [facility] [address] [place] [address] 04/16/2025 7:30 AM EDT PACE Home Care / P[facility] [address] [place] [phone] Cheryle Pryor 04/17/2025 7:30 AM EDT PACE Home Care / [facility] [address] [place] [address] Shawna Lebron 04/17/2025 10:30 AM EDT PACE Home Care / [facility] [address] [place] [phone] Jhoana Grijalva 04/18/2025 7:30 AM EDT PACE Home Care / [facility] [place] [facility] [address] [place] [phone] Jhoana Grijalva 04/19/2025 7:30 AM EDT PACE Home Care / [facility] [address] [place] [phone] Jhoana Grijalva 04/20/2025 [facility] [facility] [place] [facility] [address] [place] [phone] 04/20/2025 7:30 AM EDT PACE Home Care / [facility] [address] [place] [phone] Cheryle Pryor 04/20/2025 9:00 AM EDT [facility] [place] [facility] [address] [place] [address] 04/21/2025 7:30 AM EDT PACE Home Care / [facility] [address] [place] [phone] Cheryle Pryor 04/21/2025 10:30 AM EDT PACE Home Care / [facility] [address] [place] [phone] Cheryle Pryor 04/22/2025 7:30 AM EDT PACE Home Care / [facility] [place] [facility] [address] [place] [address] Cheryle Pryor 04/22/2025 9:00 AM EDT [facility] [place] [facility] [address] [place] [address] 04/23/2025 7:30 AM EDT PACE Home Care / [facility] [address] [place] [phone] Cheryle Pryor 04/24/2025 11:30 AM EDT PACE Home Care / [facility] [place] [facility] [address] [place] [phone] Juanito Wasserman 04/25/2025 7:30 AM EDT PACE Home Care / [facility] [address] [place] [phone] Cheryle Pryor 04/26/2025 7:30 AM EST PACE Home Care / [facility] [address] [place] [phone] Cheryle Pryor 04/27/2025 [facility] Att[facility]ance[facility] [facility] [place] [facility] [address] [place] [phone] 04/27/2025 7:30 AM EST PACE Home Care / [facility] [place] [facility] [address] [place] [phone] Cheryle Pryor 04/27/2025 9:00 AM EST [facility] [place] [facility] [address] [place] [phone] 04/28/2025 7:30 AM EST PACE Home Care / [facility] [address] [place] [phone] Cheryle Pryor 04/28/2025 10:30 AM EST PACE Home Care / [facility] [address] [place] [phone] Cheryle Pryor 04/29/2025 7:30 AM EST PACE Home Care / [facility] [place] [facility] [address] [place] [phone] Cheryle Pryor 04/29/2025 9:00 AM EST [facility] [place] [facility] [address] [place] [phone] 04/30/2025 7:30 AM EST PACE Home Care / [facility] [place] [facility] [address] [place] [phone] Cheryle Pryor 05/01/2025 7:30 AM EST PACE Home Care / [facility] [address] [place] [phone] Shawna Lebron 05/01/2025 10:30 AM EST PACE Home Care / [facility] [address] [place] [phone] Jhoana Grijalva 05/02/2025 7:30 AM EST PACE Home Care / [facility] [place] [facility] [address] [place] [phone] Jhoana Grijalva 05/03/2025 7:30 AM EST PACE Home Care / [facility] [place] [facility] [address] [place] [phone] Jhoana Grijalva 05/04/2025 [facility] [facility] [place] [facility] [address] [place] [address] 05/04/2025 7:30 AM EST PACE Home Care / [facility] [place] [facility] [address] [place] [phone] Cheryle Pryor 05/04/2025 9:00 AM EST [facility] [place] [facility] [address] [place] [address] 05/05/2025 7:30 AM EST PACE Home Care / [facility] [place] [facility] [address] [place] [phone] Cheryle Pryor 05/05/2025 10:30 AM EST PACE Home Care / [facility] Visit [facility] [place] [facility] [address] [place] [phone] Cheryle Pryor 05/06/2025 7:30 AM EST PACE Home Care / [facility] [place] [facility] [address] [place] [phone] Cheryle Pryor 05/06/2025 9:00 AM EST [facility] Attend[facility] [place] [facility] [address] [address] 05/07/2025 7:30 AM EST PACE Home Care / [facility] [place] [facility] [address] [place] [phone] Cheryle Pryor 05/07/2025 9:00 AM EST Appointment [facility] [address] [place] [address] Rambo Barlow MD [address] [address] 05/08/2025 7:30 AM EST PACE Home Care / [facility] [place] [facility] [address] [place] [phone] Shawna Lebron 05/08/2025 10:30 AM EST PACE Home Care / [facility] [place] [facility] [address] [place] [address] Jhoana Grijalva 05/09/2025 7:30 AM EST PACE Home Care / [facility] [place] [facility] [address] [place] [address] Cheryle Pryor 05/10/2025 7:30 AM EST PACE Home Care / [facility] [address] [place] [address] Cheryle Pryor 05/11/2025 [facility] Att[facility] [place] [facility] [address] [place] [phone] 05/11/2025 7:30 AM EST PACE Home Care / [facility] [address] [place] [phone] Cheryle Pryor 05/11/2025 9:00 AM EST [facility] [place] [facility] [address] [place] [phone] 05/12/2025 7:30 AM EST PACE Home Care / [facility] [address] [place] [phone] Cheyrle Pryor 05/12/2025 10:30 AM EST PACE Home Care / [facility] [address] [place] [phone] Cheryle Pryor 05/13/2025 7:30 AM EST PACE Home Care / [facility] [place] [facility] [address] [place] [phone] Cheryle Pryor 05/13/2025 9:00 AM EST [facility] [place] [facility] [address] [place] [phone] 05/14/2025 7:30 AM EST PACE Home Care / [facility] [address] [place] [phone] Cheryle Pryor 05/15/2025 7:30 AM EST PACE Home Care / [facility] [address] [place] [phone] Shawna Lebron 05/15/2025 10:30 AM EST PACE Home Care / [facility] [place] [facility] [address] [place] [phone] Jhoana Grijalva 05/16/2025 7:30 AM EST PACE Home Care / [facility] [place] [facility] [address] [place] [phone] Jhoana Grijalva 05/17/2025 7:30 AM EST PACE Home Care / [facility] [address] [place] [phone] Jhoana Grijalva 05/18/2025 [facility] [place] [facility] [address] [place] [phone] 05/18/2025 7:30 AM EST PACE Home Care / [facility] [address] [place] [phone] Cheryle Pryor 05/18/2025 9:00 AM EST [facility] [place] [facility] [address] [place] [phone] 05/19/2025 7:30 AM EST PACE Home Care / [facility] [address] [place] [phone] Cheryle Pryor 05/19/2025 10:30 AM EST PACE Home Care / [facility] [place] [facility] [address] [place] [address] Cheryle Pryor 05/20/2025 7:30 AM EST PACE Home Care / [facility] [place] [facility] [address] [place] [phone] Cheryle Pryor 05/20/2025 9:00 AM EST [facility] [facility] [place] [facility] [address] [place] [address] 05/21/2025 7:30 AM EST PACE Home Care / [facility] [address] [place] [phone] Cheryle Pryor 05/22/2025 7:30 AM EST PACE Home Care / [facility] [address] [place] [phone] Shawna Lebron 05/22/2025 10:30 AM EST PACE Home Care / [facility] [address] [place] [phone] Jhoana Grijalva 05/23/2025 7:30 AM EST PACE Home Care / [facility] [address] [place] [phone] Cheryle Pryor 05/24/2025 7:30 AM EST PACE Home Care / [facility] [address] [place] [phone] Cheryle Pryor 05/25/2025 [facility] [place] [facility] [address] [place] [address] 05/25/2025 7:30 AM EST PACE Home Care / [facility] [address] [place] [phone] Cheryle Pryor 05/25/2025 9:00 AM EST [facility] [place] [facility] [address] [place] [address] 05/26/2025 7:30 AM EST PACE Home Care / [facility] [address] [place] [address] Cheryle Pryor 05/26/2025 10:30 AM EST PACE Home Care / [facility] [address] [place] [address] Cheryle Pryor 05/27/2025 7:30 AM EST PACE Home Care / [facility] [address] [place] [address] Cheryle Pryor 05/27/2025 9:00 AM EST [facility] [place] [facility] [address] [place] [address] 05/28/2025 7:30 AM EST PACE Home Care / [facility] [address] [place] [address] Cheryle Pryor 05/29/2025 7:30 AM EST PACE Home Care / [facility] [address] [place] [address] Shawna Lebron 05/29/2025 10:30 AM EST PACE Home Care / [facility] [address] [place] [phone] Jhoana Grijalva 05/30/2025 7:30 AM EST PACE Home Care / [facility] [address] [place] [phone] Jhoana Grijalva 05/31/2025 7:30 AM EST PACE Home Care / [facility] [address] [place] [address] Jhoana Grijalva 06/01/2025 [facility] [place] [facility] [address] [place] [address] 06/01/2025 7:30 AM EST PACE Home Care / [facility] [address] [place] [phone] Cheryle Pryor 06/01/2025 9:00 AM EST [facility] [place] [facility] [address] [place] [phone] 06/02/2025 7:30 AM EST PACE Home Care / [facility] [address] [place] [phone] Cheryle Pryor 06/02/2025 10:30 AM EST PACE Home Care / [facility] [address] [place] [phone] Cheryle Pryor 06/03/2025 7:30 AM EST PACE Home Care / [facility] [address] [place] [phone] Cheryle Pryor 06/03/2025 9:00 AM EST [facility] [place] [facility] [address] [place] [phone] 06/04/2025 7:30 AM EST PACE Home Care / [facility] [address] [place] [phone] Cheryle Pryor 06/05/2025 7:30 AM EST PACE Home Care / [facility] [address] [place] [address] Shawna Lebron 06/05/2025 10:30 AM EST PACE Home Care / [facility] [address] [place] [address] Jhoana Grijalva 06/06/2025 7:30 AM EST PACE Home Care / [facility] [address] [place] [address] Cheryle Pryor 06/07/2025 7:30 AM EST PACE Home Care / [facility] [place] [facility] [address] [place] [address] Cheryle Pryor 06/08/2025 [facility] Att[facility] [facility] [place] [facility] [address] [place] [address] 06/08/2025 9:00 AM EST [facility] [place] [facility] [address] [place] [address] 06/10/2025 9:00 AM EST [facility] [place] [facility] [address] [place] [phone] 06/15/2025 [facility] Att[facility] [place] [facility] [address] [place] [phone] 06/15/2025 9:00 AM EST [facility] [place] [facility] [address] [place] [address] 06/17/2025 9:00 AM EST [facility] [place] [facility] [address] [place] [address] 06/22/2025 [facility] [place] [facility] [address] [place] [address] 06/22/2025 9:00 AM EST [facility] [place] [facility] [address] [place] [address] 06/24/2025 9:00 AM EST [facility] Att[facility] [place] [facility] [address] [place] [phone] 06/29/2025 P[facility] Attendance[facility] [place] [facility] [address] [place] [phone] 06/29/2025 9:00 AM EST [facility] [place] [facility] [address] [place] [phone] 07/01/2025 9:00 AM EST [facility] [place] [facility] [address] [place] [address] 07/06/2025 [facility] [place] [facility] [address] [place] [phone] 07/06/2025 9:00 AM EST [facility] Att[facility] [place] [facility] [address] [place] [phone] 2025 9:00 AM EST [facility] [place] [facility] [address] [place] [phone] 07/13/2025 P[facility] Attend[facility] [place] [facility] [address] [place] [phone] 07/13/2025 9:00 AM EST [facility] [place] [facility] [address] [place] [phone] 07/15/2025 9:00 AM EST [facility] [place] [facility] [address] [place] [phone] 07/20/2025 P[facility] Attend[facility] [place] [facility] [address] [place] [phone] 07/20/2025 9:00 AM EST [facility] [place] [facility] [address] [place] [address] 07/22/2025 9:00 AM EST [facility] [place] [facility] [address] [place] [phone] 07/27/2025 [facility] Attend[facility] [place] [facility] [address] [place] [phone] 07/27/2025 9:00 AM EST [facility] [place] [facility] [address] [place] [phone] 07/29/2025 9:00 AM EST [facility] [place] [facility] [address] [place] [address] 08/03/2025 [facility] [place] [facility] [address] [place] [phone] 08/03/2025 9:00 AM EST [facility] [place] [facility] [address] [place] [address] 08/05/2025 9:00 AM EST [facility] [place] [facility] [address] [place] [phone] 08/10/2025 [facility] Attend[facility] [place] [facility] [address] [place] [phone] 08/12/2025 9:00 AM EST [facility] [place] [facility] [address] [place] [phone] 08/17/2025 [facility] Attend[facility] [place] [facility] [address] [place] [address] 08/19/2025 9:00 AM EST [facility] [place] [facility] [address] [place] [phone] 08/24/2025 P[facility] Attend[facility] [place] [facility] [address] [place] [phone] 08/26/2025 9:00 AM EST [facility] [place] [facility] [address] [place] [address] 08/31/2025 [facility] Attend[facility] [place] [facility] [address] [place] [address] 09/02/2025 9:00 AM EDT [facility] Att[facility] [place] [facility] [address] [place] [phone] 09/07/2025 [facility] Att[facility] [place] [facility] [address] [place] [address] 09/09/2025 9:00 AM EDT [facility] Att[facility] [place] [facility] [address] [place] [phone] 09/14/2025 P[facility] Attendance[facility] [place] [facility] [address] [place] [address] 09/16/2025 9:00 AM EDT [facility] Att[facility] [place] [facility] [address] [place] [phone] 09/21/2025 P[facility] Attend[facility] [place] [facility] [address] [place] [phone] 09/23/2025 9:00 AM EDT [facility] Attend[facility] [place] [facility] [address] [place] [phone] 09/28/2025 [facility] Att[facility] [place] [facility] [address] [place] [phone] 09/30/2025 9:00 AM EDT [facility] Att[facility] [place] [facility] [address] [place] [phone] 10/05/2025 [facility] Attend[facility] [place] [facility] [address] [place] [address] 10/07/2025 9:00 AM EDT [facility] [place] [facility] [address] [place] [address] 10/12/2025 [facility] Att[facility] [place] [facility] [address] [place] [address] 10/14/2025 9:00 AM EDT [facility] Att[facility] [place] [facility] [address] [place] [phone] 10/19/2025 [facility] Att[facility] [place] [facility] [address] [place] [phone] 10/21/2025 9:00 AM EDT [facility] [place] [facility] [address] [place] [phone] 10/26/2025 P[facility] Attend[facility] [place] [facility] [address] [place] [phone] 10/28/2025 9:00 AM EDT [facility] Att[facility] [place] [facility] [address] [place] [phone] 11/02/2025 P[facility] Att[facility] [place] [facility] [address] [place] [address] 11/04/2025 9:00 AM EDT [facility] Att[facility] [place] [facility] [address] [place] [phone] 11/09/2025 P[facility] Attend[facility] [place] [facility] [address] [place] [phone] 11/11/2025 9:00 AM EDT [facility] Att[facility] [place] [facility] [address] [place] [phone] 11/16/2025 P[facility] Attend[facility] [place] [facility] [address] [place] [address] 11/18/2025 9:00 AM EDT [facility] Att[facility] [place] [facility] [address] [place] [address] 11/23/2025 [facility] [address] [place] [address] 11/25/2025 9:00 AM EDT [facility] [address] [place] [phone] 11/30/2025 [facility] [address] [place] [phone] 12/02/2025 9:00 AM EDT [facility] [address] [place] [phone] 12/07/2025 [facility] [address] [place] [phone] 12/09/2025 9:00 AM EDT [facility] [address] [place] [phone] 12/14/2025 [facility] [address] [place] [phone] 12/16/2025 9:00 AM EDT [facility] [address] [place] [phone] 12/21/2025 [facility] [address] [place] [phone] 12/23/2025 9:00 AM EDT [facility] [address] [place] [phone] 12/28/2025 [facility] [address] [place] [phone] 12/30/2025 9:00 AM EDT [facility] [address] [place] [phone] 01/04/2026 [facility] [address] [place] [phone] 01/06/2026 9:00 AM EDT [facility] [place] [facility] [address] [place] [phone] 01/11/2026 [facility] [address] [place] [phone] 01/13/2026 9:00 AM EDT [facility] [place] [facility] [address] [place] [phone] 01/18/2026 [facility] [address] [place] [phone] 01/20/2026 9:00 AM EDT [facility] [place] [facility] [address] [place] [phone] 01/25/2026 [facility] [address] [place] [phone] 01/27/2026 9:00 AM EDT [facility] [address] [place] [phone] 02/01/2026 [facility] [address] [place] [phone] 02/03/2026 9:00 AM EDT [facility] [address] [place] [phone] 02/08/2026 [facility] [address] [place] [phone] 02/10/2026 9:00 AM EDT [facility] [address] [place] [phone] 02/15/2026 [facility] [address] [place] [phone] 02/17/2026 9:00 AM EDT [facility] [address] [place] [phone] 02/22/2026 [facility] [address] [place] [phone] 02/24/2026 9:00 AM EDT [facility] [address] [place] [phone] 03/03/2026 9:00 AM EDT [facility] [address] [place] [phone] 03/10/2026 9:00 AM EDT [facility] [address] [place] [phone] 03/17/2026 9:00 AM EDT [facility] [address] [place] [phone] 03/24/2026 9:00 AM EDT [facility] [address] [place] [phone] 03/31/2026 9:00 AM EDT [facility] [address] [place] [phone] 04/07/2026 9:00 AM EDT [facility] [address] [phone] 04/14/2026 9:00 AM EDT [facility] [address] [phone] 04/21/2026 9:00 AM EDT [facility] [address] [phone] documented as of this encounter Visit Diagnoses Not on filedocumented in this encounter Care Teams Medical Accounts Receivable Specialist Relationship Specialty Start Date End Date Eleazar Gleason MD [address] [address] PCP - General 04/11/24 05/01/24 documented as of this encounter
--- OUTSIDE RECORDS SUMMARY | 2025-03-31 21:43 | XMS_ITS | Encounter Summary ---
Author Organization [facility] Address [address] [place] [address] Care Team Providers Care Buggy Runner Name Role Phone Dede Pimentel PHOTOCOPYING EQUIPMENT MECHANIC Primary Care Provider [phone] Reason for Visit * Reason Comments Fall * Auth/Cert (Routine) Specialty Diagnoses / Procedures Referred By Genesis t Referred To Contact Diagnoses Neck pain Polypharmacy Physical deconditioning Closed head injury, initial encounter Fall, initial encounter Acute midline thoracic back pain Procedures . Mariano Galindo MD [address] [place] [address] Phone: tel: fax: [facility] [address] [place] [address] Phone: tel: Referral ID Status Reason Start Date Expiration Date Visits Re quested Visits Authorized [id number] 1 1 Encounter Details Date Type Department Care Team (Latest Contact Info) Description 03/31/2025 9:43 PM EDT - 04/07/2025 4:38 PM EDT Hospital Encounter [facility] [address] [place] [address] Evelia Lopez MD [address] [place] [address] Gregorio Mcgregor MD [address] [place] [address] Prieto Baldwin MD [address] [place] [id number] Ester Swift DO [address] [place] [address] Amrita Duke MD [address] [place] [id number] Sebastian Buck MD [address] [place] [id number] Ac Salamanca MD [address] [place] [id number] Deacon Olivera MD [address] [place] [id number] Mariano Galindo MD [address] [place] [address] Leighton Bonilla MD [address] [place] [id number] Fall, initial encounter (Primary Dx); Closed head injury, initial encounter; Neck pain; Acute midline thoracic back pain; Polypharmacy [facility]charge Disposition: [facility] Social History Tobacco Use Types Packs/Day Years [...] Sign Reading Time Taken Comments Blood Pressure 124/82 04/07/2025 2:46 PM EDT Pulse 63 04/07/2025 2:46 PM EDT Temperature 36.3 C (97.3 F) 04/07/2025 2:46 PM EDT Respiratory Rate 16 04/07/2025 2:46 PM EDT Oxygen Saturation 94% 04/07/2025 2:46 PM EDT Inhaled Oxygen Concentration - - Weight 100 kg (220 lb 7.4 oz) 04/07/2025 3:54 PM EDT Height 167.6 cm (5' 5.98 ) 04/07/2025 3:54 PM ED T Body Mass Index 35.6 04/07/2025 3:54 PM EDT documented in this encounter Functional Status * Are you deaf or do you have serious difficulty hearing? Answer Date of Assessment Author No 04/01/2025 8:17 PM EDT Macrina Lezama RN * Are you blind or do you have serious difficulty seeing, even when wearing glasses? Answer Date of Assessment Author No 04/01/2025 8:17 PM EDT Macrina Lezama RN * Do you have serious difficulty walking or climbing stairs? Answer Date of Assessment Author Yes 04/01/2025 8:17 PM EDT Macrina Lezama RN * Do you have serious difficulty dressing or bathing? Answer Date of Assessment Author Yes 04/01/2025 8:17 PM EDT Macrina Lezama RN * Because of a physical, mental, or emotional condition, do you have serious difficulty doing errandsalone such as visiting the doctor? Answer Date of Assessment Author Yes 04/01/2025 8:17 PM EDT Macrina Lezama RN * Calculated C-SSRS Risk Score (Lifetime/Recent) Answer Date of Assessment Author No Risk Indicated 04/06/2025 8:29 AM EDT Chris Moya RN * [place] Suicide Severity Rating Scale (Screener/Recent Self-Report) Question Answer Date of Assessment Author 1. Wish to be (Past 1 Month) No 025 8:29 AM EDT Jayshree Moya RN 2. Non-Specific Active Suici mimi Thoughts (Past 1 Month) No 04/06/2025 8:29 AM EDT Jayshree Moya RN 6. Suicidal Behavior (Lifetime) No 8:29 AM EDT Jayshree Moya RN documented as of this encounter Mental Status * Because of a physical, mental, or emotional condition, do you have serious difficulty concentrating, remembering, or making decisions? (5 years old or older) Answer Entry Date Author No 04/01/2025 8:17 PM EDT Macrina Lezama RN documented in this encounter Discharge Summaries * Ana Maria Gardner NP - 04/07/2025 3:27 PM EDT Images from the original note were not included. [facility] DISCHARGE SUMMARY Patient Information Lucila Cruz : 1960 [64 y.o.] Admitting Provider Mariano Galindo MD Discharge Provider Ana Maria Gardner NP, Leighton Bonilla MD Primary Care Physician Dede Pimentel NP Admission Date 03/31/2025 Discharge Date 04/07/2025 Summary of Hospital Problems Presenting Chief Complaint: Deconditioning and needs inpatient rehabilitation Primary Discharge Diagnosis: UTI Constipation Paroxysmal atrial fibrillation Hypercoagulable state due to Paroxysmal atrial fibrillation Hypertension Hyperlipidemia Nicotine dependence Bipolar Disorder Major Neuocognitive disorder Discharge Destination: Less than 30 day stay at detention facility Code Status at Discharge: FULL CODE Inpatient Consultants: See inpatient consult with Dr. Munoz Pertinent Imaging Findings: Lab Results Component Value Date WBC 5.6 04/07/2025 HGB 14.1 04/07/2025 HCT 42.4 04/07/2025 MCV 95.1 04/07/2025 PLT 302 04/07/2025 Lab Results Component Value Date GLUCOSE 90 04/07/2025 CALCIUM 9.4 04/07/2025 NA 134 04/07/2025 K 3.9 04/07/2025 CO2 26 04/07/2025 CL 100 04/07/2025 BUN 15 04/07/2025 CREATININE 0.80 04/07/2025 XR Knee 4+ Views Right ED Interpretation No acute osseous abnormality Final Result Impression: 1. No evidence of fracture. 2. Moderate tricompartmental arthritic change. Telerad HALLEY ([id number]) -------- FINAL REPORT -------- Dictated By: Berta Mock Dictated Date: 04/01/2025 09:13 ET Assigned Physician: Berta Mcok Reviewed and Electronically Signed By: Berta Mock Signed Date: 04/01/2025 09:14 ET Workstation ID: [id number] Transcribed By: Self Edit Transcribed Date: 04/01/2025 09:[address] Head wo Contrast Final Result No acute intracranial abnormality. This document has been electronically signed by: Radhames Hinds MD on 04/01/2025 03:28:45 CT Cervical Spine wo Contrast Final Result No evidence of cervical spine injury. This document has been electronically signed by: Radhames Hinds MD on 04/01/2025 03:26:31 CT Thoracic Spine wo Contrast Final Result No evidence of thoracic spine injury. This document has been electronically signed by: Radhames Hinds MD on 04/01/2025 03:26:49 Procedures Performed: None Please see chief complaint and history of present illness from history and physical by Dr. Mateo ISLAS from 04/06/2025 below: CHIEF COMPLAINT Patient referred for admission because of increased deconditioning and inability to find rehabilitation center. HISTORY OF PRESENT ILLNESS This is a 64-year-old female with history of bipolar disorder who has spent several days in emergency room awaiting awaiting placement in psych. This resulted in development of deconditioning to thepoint where she now needs physical Occupational Therapy and placement in rehab. Patient has very poor sleep which has been even worse while she was sitting here in the emergency room. I have reviewed her EKG from March 31 that shows normal sinus rhythm no ST segment elevations or depressions and no QTc prolongation. CT imaging of the chest from April 01 did not show any pulmonary vascular congestion or infiltrates. X-ray of the knee is negative. She was seen by crisis and her medications have been managed. Patient has been having frequent falls. While spending time in emergency room she has had multiple episodes of agitation requiring to leaveAGAINST MEDICAL ADVICE. She is expecting to be placed at [facility] rehab facility. No having worsening delirium and presence of severe urinary tract infection. For this reason after conversation with social work program coordinator and emergency room department final decision has been made to admit the patient to the hospital and treat Hospital Course Summary UTI Final urine culture is pending at the time of patient discharge Preliminary grew gram negative bacilli S/P IV ceftriaxone Will discharge on Cefpodoxime 200 mg BID for 7 days 2. Constipation Continue senna, colace and Miralax 3. Paroxysmal atrial fibrillation 4. Secondary hypercoagulable state due to Paroxysmal atrial fibrillation Continue Eliquis and Metoprolol 5. Hypertension Continue metoprolol 6. Hyperlipidemia Continue statin 7. Nicotine Dependence Continue nicotine patch Smoking cessation encouraged 8. Bipolar Disorder 9. Major Neuocognitive disorder Taper medications per psych recommendations 10. Full Code Follow-Up Instructions and Recommendations [facility] [address] [facility] [id number] Pending Labs at Discharge: Pending Labs Order Current Status Culture urine Preliminary result Discharge Medications Home Medications After Discharge Scheduled acetaminophen (TYLENOL) 500 mg tablet, Take 2 tablets (1,000 mg total) by mouth every 8 (eight) hours for 10 days. apixaban (ELIQUIS) 5 mg tablet, Take 1 tablet (5 mg total) by mouth 2 (two) times a day. aspirin 81 mg chewable tablet, Chew 1 tablet (81 mg total) at bedtime. 1 tab chewed in the mouth daily atorvastatin (LIPITOR) 40 mg tablet, Take 1 tablet (40 mg total) by mouth at bedtime. bumetanide (BUMEX) 2 mg tablet, Take 1 tablet (2 mg total) by mouth 3 (three) times a week. Sunday,Sunday, Sunday. buPROPion XL (WELLBUTRIN XL) 150 mg 24 hr tablet, Take 1 tablet (150 mg total) by mouth 1 (one) time each day in the morning for 3 doses. Do not crush, chew, or split. cefpodoxime (VANTIN) 200 mg tablet, Take 1 tablet (200 mg total) by mouth 2 (two) times a day for 7days. docusate sodium (COLACE) 100 mg capsule, Take 1 capsule (100 mg total) by mouth 2 (two) times a dayfor 10 days. estradioL (ESTRACE) 0.01 % (0.1 mg/gram) vaginal cream, Insert 2 g into the vagina 2 (two) times a week. 0.5 applicatorful as directed 2 times per week famotidine (Pepcid) 40 mg tablet, Take 1 tablet (40 mg total) by mouth at bedtime. ferrous sulfate 325 mg (65 mg iron) EC tablet, Take 1 tablet (325 mg total) by mouth 1 (one) time each day with breakfast. Do not crush, chew, or split. FLUoxetine (PROzac) 40 mg capsule, Take 1 capsule (40 mg total) by mouth 1 (one) time each day. rpbfektwyzv-fimamqjatjyn-gidxvitswt (Trelegy Ellipta) 100-62.5-25 mcg inhaler, Inhale 1 puff (100 mcg total) by mouth 1 (one) time each day. Rinse mouth with water after use to reduce aftertaste and incidence of candidiasis. Do not swallow. lidocaine 4 % patch, Apply 1 patch topically 1 (one) time each day. LORazepam (ATIVAN) 1 mg tablet, Take 1 tablet (1 mg total) by mouth every 8 (eight) hours. Max Daily Amount: 3 mg metoprolol succinate (TOPROL-XL) 25 mg 24 hr tablet, Take 1 tablet (25 mg total) by mouth 1 (one) time each day. Do not crush or chew. polyethylene glycol (MIRALAX) 17 gram packet, Take 17 g by mouth 1 (one) time each day for 3 days. prazosin (MINIPRESS) 1 mg capsule, Take 1 capsule (1 mg total) by mouth at bedtime for 7 doses. Start: 04/09/25 prazosin (MINIPRESS) 2 mg capsule, Take 1 capsule (2 mg total) by mouth at bedtime for 2 doses. pregabalin (LYRICA) 200 mg capsule, Take 1 capsule (200 mg total) by mouth 2 (two) times a day. MaxDaily Amount: 400 mg QUEtiapine (SeroqueL) 400 mg tablet, Take 1 tablet (400 mg total) by mouth at bedtime. senna (Senna Lax) 8.6 mg tablet, Take 2 tablets (17.2 mg total) by mouth 1 (one) time each day. PRN albuterol HFA (PROAIR HFA ; PROVENTIL HFA ; VENTOLIN HFA) 90 mcg/actuation inhaler, Inhale 2 puffs by mouth every 6 (six) hours if needed for wheezing or shortness of breath. capsaicin (ZOSTRIX) 0.025 % cream, Apply topically 4 (four) times a day if needed for mild pain. Physical Exam Awake and alert HEENT- PERRLA CARDIAC- S1 and S2 no murmur rub or gallops LUNGS- clear bilaterally ABD soff non distended, non tender, + bs Ext- no edema Psych calm and cooperative Vitals Visit Vitals BP 124/82 Pulse 63 Temp 36.3 ??C (97.3 ??F) Resp 16 Temp (24hrs), Av.5 ??C (97.7 ??F), Min:36.3 ??C (97.3 ??F), Max:36.8 ??C (98.2 ??F) Body mass index is 35.58 kg/m??. No results found for: PTWT , PTHT Greater than 45 minutes spent on day of discharge. Discharge planning was discussed with my attending physician Dr. Bonilla who agrees With the above assessment and plan. Cosigned by Leighton Bonilla MD at 04/08/2025 9:47 AM EDT Associated attestation - Leighton Bonilla MD - 04/08/2025 9:47 AM EDT This is a split/shared visit with Ana Maria Gardner NP. I personally performed the medical decision making (MDM) for the care of this patient on 04/07/2025s documented below 64-year-old female with bipolar disorder presented to emergency department with UTI and worsening confusion and started on ceftriaxone. She had initial concern of delirium requiring sitter which was eventually removed. She will be discharged on cefpodoxime 200 mg twice daily. She will continue other medications as prior. Leighton Bonilla MD 04/08/25 9:46 AM EDT documented in this encounter Medications at Time of Discharge acetaminophen (TYLENOL) 500 mg tablet Take 2 tablets (1,000 mg total) by mouth every 8 (eight) hours for 10 days. 04/07/2025 04/17/20 25 apixaban (ELIQUIS) 5 mg tabletIndications :Sinus tachycardia Take 1 tablet (5 mg total) by mouth 2 (two) times a day. 56 each 10/03/2024 10/04/19 26 aspirin 81 mg chewable tabletIndications :Congestive heart failure, unspecified HF chronicity, unspecified heart failure type (CMS/HCC V24, CMS/HCC V28) Chew 1 tablet (81 mg total) at bedtime. 1 tab chewed in the mouth daily 28 each 02/26/2025 02/27/20 26 atorvastatin (LIPITOR) 40 mg tabletIndications :Cerebrovascular accident (CVA), unspecified mechanism (CMS/HCC V24, CMS/HCC V28) Take 1 tablet (40 mg total) by mouth at bedtime. 28 each 10/03/2024 10/04/19 26 bumetanide (BUMEX) 2 mg tabletIndications :Congestive heart failure, unspecified HF chronicity, unspecified heart failure type (CMS/HCC V24, CMS/HCC V28) Take 1 tablet (2 mg total) by mouth 3 (three) times a week. Sunday, Sunday, Sunday. 12 each 01/12/2025 01/13/20 26 buPROPion XL (WELLBUTRIN XL) 150 mg 24 hr tablet Take 1 tablet (150 mg total) by mouth 1 (one) time each day in the morning for 3 doses. Do not crush, chew, or split. 3 each 04/08/2025 04/11/20 25 capsaicin (ZOSTRIX) 0.025 % creamIndications: Chronic bilateral low back pain without sciatica Apply topically 4 (four) times a day if needed for mild pain. 60 g 10/06/2024 10/07/19 26 cefpodoxime (VANTIN) 200 mg tablet Take 1 tablet (200 mg total) by mouth 2 (two) times a day for 7 days. 04/07/2025 04/14/20 25 docusate sodium (COLACE) 100 mg capsule Take 1 capsule (100 mg total) by mouth 2 (two) times a day for 10 days. 04/07/2025 04/17/20 25 estradioL (ESTRACE) 0.01 % (0.1 mg/gram) vaginal creamIndications: Post-menopausal atrophic vaginitis Insert 2 g into the vagina 2 (two) times a week. 0.5 applicatorful as directed 2 times per week 42.5 g 09/15/2024 famotidine (Pepcid) 40 mg tabletIndications :Dyspepsia Take 1 tablet (40 mg total) by mouth at bedtime. 28 each 02/09/2025 02/10/20 26 ferrous sulfate 325 mg (65 mg iron) EC tabletIndications :Iron deficiency Take 1 tablet (325 mg total) by mouth 1 (one) time each day with breakfast. Do not crush, chew, or split. 28 each 10/03/2024 10/04/19 26 FLUoxetine (PROzac) 40 mg capsuleIndication s:Bipolar 1 disorder (CMS/[facility] V24, CMS/[facility] V28) Take 1 capsule (40 mg total) by mouth 1 (one) time each day. 28 capsule 01/12/2025 01/13/20 26 fluticasone-umecl idinium-vilantero l (Trelegy Ellipta) 100-62.5-25 mcg inhalerIndication s:Chronic respiratory failure with hypoxia (CMS/HCC V24, CMS/[facility] V28) Inhale 1 puff (100 mcg total) by mouth 1 (one) time each day. Rinse mouth with water after use to reduce aftertaste and incidence of candidiasis. Do not swallow. 1 each 09/12/2024 09/13/19 26 lidocaine 4 % patch Apply 1 patch topically 1 (one) time each day. 04/08/2025 05/08/20 25 LORazepam (ATIVAN) 1 mg tabletIndications :Bipolar 1 disorder (CMS/HCC V24, [facility] V28),Anxiety Take 1 tablet (1 mg total) by mouth every 8 (eight) hours. Max Daily Amount: 3 mg 84 each 02/26/2025 08/26/19 26 metoprolol succinate (TOPROL-XL) 25 mg 24 hr tablet Take 1 tablet (25 mg total) by mouth 1 (one) time each day. Do not crush or chew. 30 each 04/08/2025 04/08/20 26 polyethylene glycol (MIRALAX) 17 gram packet Take 17 g by mouth 1 (one) time each day for 3 days. 04/08/2025 04/11/20 25 prazosin (MINIPRESS) 1 mg capsule Take 1 capsule (1 mg total) by mouth at bedtime for 7 doses. 7 each 04/09/2025 04/16/20 25 prazosin (MINIPRESS) 2 mg capsule Take 1 capsule (2 mg total) by mouth at bedtime for 2 doses. 2 each 04/07/2025 04/09/20 25 pregabalin (LYRICA) 200 mg capsule Take 1 capsule (200 mg total) by mouth 2 (two) times a day. Max Daily Amount: 400 mg 04/08/2025 04/08/20 26 QUEtiapine (SeroqueL) 400 mg tablet Take 1 tablet (400 mg total) by mouth at bedtime. 30 each 04/07/2025 05/07/20 25 senna (Senna Lax) 8.6 mg tabletIndications :Chronic idiopathic constipation Take 2 tablets (17.2 mg total) by mouth 1 (one) time each day. 60 each 01/12/2025 01/13/20 26 documented as of this encounter Ordered Prescriptions Prescription Sig Dispense Quantity Refills Last Filled Start Date End Date pregabalin (LYRICA) 200 mg capsule Take 1 capsule (200 mg total) by mouth 2 (two) times a day. Max Daily Amount: 400 mg 04/08/2025 6 cefpodoxime (VANTIN) 200 mg tablet Take 1 tablet (200 mg total) by mouth 2 (two) times a day for 7 days. 04/07/2025 polyethylene glycol (MIRALAX) 17 gram packet Take 17 g by mouth 1 (one) time each day for 3 days. 04/08/2025 docusate sodium (COLACE) 100 mg capsule Take 1 capsule (100 mg total) by mouth 2 (two) times a day for 10 days. 04/07/2025 acetaminophen (TYLENOL) 500 mg tablet Take 2 tablets (1,000 mg total) by mouth every 8 (eight) hours for 10 days. 04/07/2025 buPROPion XL (WELLBUTRIN XL) 150 mg 24 hr tablet Take 1 tablet (150 mg total) by mouth 1 (one) time each day in the morning for 3 doses. Do not crush, chew, or split. 3 each 04/08/2025 5 QUEtiapine (SeroqueL) 400 mg tablet Take 1 tablet (400 mg total) by mouth at bedtime. 30 each 04/07/2025 5 prazosin (MINIPRESS) 2 mg capsule Take 1 capsule (2 mg total) by mouth at bedtime for 2 doses. 2 each 04/07/2025 5 prazosin (MINIPRESS) 1 mg capsule Take 1 capsule (1 mg total) by mouth at bedtime for 7 doses. 7 each 04/09/2025 5 metoprolol succinate (TOPROL-XL) 25 mg 24 hr tablet Take 1 tablet (25 mg total) by mouth 1 (one) time each day. Do not crush or chew. 30 each 11 04/08/2025 6 lidocaine 4 % patch Apply 1 patch topically 1 (one) time each day. 04/08/2025 cefpodoxime (VANTIN) 200 mg tablet Take 1 tablet (200 mg total) by mouth 2 (two) times a day for 7 days. 04/07/2025 polyethylene glycol (MIRALAX) 17 gram packet Take 17 g by mouth 1 (one) time each day for 3 days. 51 g 04/08/2025 docusate sodium (COLACE) 100 mg capsule Take 1 capsule (100 mg total) by mouth 2 (two) times a day for 10 days. 20 each 04/07/2025 10/14/202 5 acetaminophen (TYLENOL) 500 mg tablet Take 2 tablets (1,000 mg total) by mouth every 8 (eight) hours for 10 days. 30 tablet 04/07/2025 pregabalin (Lyrica) 200 mg capsule Take 1 capsule (200 mg total) by mouth 2 (two) times a day. Max Daily Amount: 400 mg 04/07/2025 5 documented in this encounter Discharge Disposition Disposition Code Departure Means Destination Comment s [facility] documented in this encounter Progress Notes * YEYO Phipps - 04/07/2025 4:00 PM EDT Yan Cabrales at bedside, aware of discharge. * YEYO Phipps - 04/07/2025 3:42 PM EDT Discharge: 04/07/25 1540 Transportation Transportation at discharge [facility] providing transportation [facility] What day is the transport expected? 04/07/25 What time is the transport expected? 1645 Final Discharge Disposition [facility] ([facility] Patient aware and in agreement with discharge. * Melody Lucsa, PT - 04/07/2025 2:07 PM EDT [facility] Physical Therapy Re-Evaluation & Treatment PT Discharge Recommendations: shelter facility placement Staff Recommendations for safe patient handlin person CGA with wwalker for about 50-60 ft AM-PAC 6 Clicks Scoring Form: Unable: 1 A Lot: 2 A Little: 3 None: 4 How much difficulty does the patient currently have? Turning over in bed (including adjustment of bedclothes, sheets, and blankets) [] [] [] [x] Sitting down on and standing up from a chair with arms (wheelchair, bedside commode etc [] [] [] [x] Moving from lying on back to sitting on the side of the bed [] [] [x] [] How much help from another person does the patient currently need? Moving to and from a bed to a chair ( including a wheelchair) [] [] [x] [] To walk in hospital room [] [] [x] [] Climbing 3-5 steps with a railing [x] [] [] [] Score: 18 /24 score indicates the pt would benefit from STR after acute discharge Precautions Medical Precautions: Fall Risk Safety Interventions: Call estrada within reach, ID band on, Bed alarm, Side rails up x1 RUE Weight Bearing Status: Full LUE Weight Bearing Status: Full RLE Weight Bearing Status: Full LLE Weight Bearing Status: Full Fall prevention education provided including use of call light in hospital, use of appropriate assistive device, safe mobility techniques, and safety measures at home. PT Received On: 04/07/25 PT Start Time: 0930 PT Stop Time: 1000 PT Time Calculation (min): 30 min General Family/Caregiver Present: No Precautions Medical Precautions: Fall Risk Safety Interventions: Call estrada within reach, ID band on, Bed alarm, Side rails up x1 RUE Weight Bearing Status: Full LUE Weight Bearing Status: Full RLE Weight Bearing Status: Full LLE Weight Bearing Status: Full Cognition Overall Cognitive Status: Within Functional Limits Arousal/Alertness: Appropriate responses to stimuli Orientation Level: Able to orient with prompts Hearing: Intact Vision: Intact Speech: Intact Integumentary: NT History of Present Illness: Patient is a 64 y.o. female admitted to [facility] on 03/31/2025. Problem List[1] Medical History[2] Surgical History[3] Social History Home Living Environment: Home Living Type of Home: Apartment Lives With: Alone Home Adaptive Equipment: Rollator Home Layout: One level Home Access: Elevator Prior Function Level of [place]: Independent with mobility and functional transfers Ambulation Status: Household ambulator Indoor Mobility Assistance: Independent Prior Device Use: Walker, Rollator Do you drive?: No Which is your dominant hand?: Right General Assessment Dressmaker Or Tailor Services Is an doctor of dental medicine used? : No 04/07/25 0930 PT Last Visit PT Received On 04/07/25 General Family/Caregiver Present No PT Time Calculation PT Start Time 0930 PT Stop Time 1000 PT Time Calculation (min) 30 min Precautions Medical Precautions Fall Risk Safety Interventions Call estrada within reach;ID band on;Bed alarm;Side rails up x1 RUE Weight Bearing Status Full LUE Weight Bearing Status Full RLE Weight Bearing Status Full LLE Weight Bearing Status Full Vital Signs Patient Identification Yes Oxygen Therapy Oxygen Therapy None (Room air) Pain Assessment Pain Assessment 0-10 Pain Score 5 - Moderate pain Pain Type Acute pain Pain Location Shoulder Pain Orientation Left Activities/Procedures Causing Pain Activity (Up to chair, ambulation) Cognition Overall Cognitive Status WFL Arousal/Alertness Appropriate responses to stimuli Orientation Level Able to orient with prompts Home Living Type of Home Apartment Lives With Alone Home Adaptive Equipment Rollator Prior Function Level of [place] Independent with mobility and functional transfers Ambulation Status Household ambulator Indoor Mobility Assistance Independent Prior Device Use Walker;Rollator Activity Tolerance Endurance Tolerates 10 - 20 min exercise with multiple rests Sensation Light Touch No apparent deficits Coordination Coordination Functional Static Standing Balance Static Standing-Level of Assistance Standby assistance;Contact guard Bed Mobility Rolling Left and Right Assistance Contact guard Rolling Left and Right Deficit Steadying;Verbal cueing Lying to Sitting Assistance Contact guard Lying to Sitting Deficit Steadying;Verbal cueing;Supervision/safety awareness;Increased time to complete Transfers Sit to Stand Assistance Contact guard Sit to Stand Deficit Steadying;Verbal cueing;Supervision/safety awareness;Increased time to complete Transfer Comments ref to sit up in chair Ambulation Walking Assistance Contact guard Walking Deficit Steadying;Verbal cueing;Supervision/safety awareness;Increased time to complete;Limited endurance;Impaired balance;LE weakness Device Rolling walker Distance Ambulated (ft) 60 Comments pt had no overt LOB but stated her legs felt wobbly and weak RUE Assessment RUE Assessment Within Functional Limits LUE Assessment LUE Assessment Impaired LUE Assessment Comments limited by pain from recent falls RLE Assessment RLE Assessment Within Functional Limits RLE Assessment Comments 3/5 LLE Assessment LLE Assessment Within Functional Limits LLE Assessment Comments 3/5 PT Assessment PT Assessment Results Decreased strength;Impaired balance;Decreased endurance;Impaired gait;Decreased mobility Prognosis Good Evaluation/Treatment Tolerance Patient tolerated treatment well Medical Staff Made Aware Yes Plan Treatment/Interventions Functional transfer training;LE strengthening/ROM;Gait training;Bed mobility PT Plan Skilled PT PT Frequency 2-5 days per week PT Duration of Sessions 15-30 min per session PT Treatments per day 1 time per day PT Discharge Recommendations shelter facility placement PT - Evaluation Status Re-Eval Complete PT Evaluation Time Entry PT Re-Evaluation Time Entry 30 Treatment performed during evaluation: None performed ADDITIONAL COMMENTS: Chart reviewed. RN clears pt for session. Pt agrees to participate and presented in bed upon PT arrival. All lines in place. Gait belt utilized throughout treatment to maximize safety. Medical precautions observed appropriately. Initiated education on the importance of PT, bed mobility safety, Transfer Safety, Ambulation Safety , Therapy Plan of Care, Home Safety, Energy Conservations strategies, and importance of OOB activity . Pt verbalized understanding. EXIT STATUS: Session ended with patient in bed, tray table and call light within reach, and RN made aware. Physical Therapy Assessment/Plan Lucila Cruz is a 64 y.o. female admitted to [facility] on 03/31/2025 for Neck pain [M54.2] Polypharmacy [Z79.899] Physical deconditioning [R53.81] Closed head injury, initial encounter [S09.90XA] Fall, initial encounter [W19.XXXA] Acute midline thoracic back pain [M54.6] . Pt presents with decreased BLE strength, balance deficits, decreased activity tolerance, and far below functional baseline. Pt performed bed mobility Contact guard, Bedrail and HOB elevated, Transfers with Contact guard, FWW and ambulates Contact guard with FWW 60 ft . Pt will benefit from skilled acute PT during hospital stay to improve the deficits listed above and optimize function. PT recommends shelter facility placement when medically stable for safe discharge and to optimize functional mobility and independence. Goals Encounter Problems Encounter Problems (Active) Template: Physical Therapy Problem: PT Short Term Goals Dates: Start: 04/07/25 Goal: Pt will ambulate up to 150ft with RW with Supervision Dates: Start: 04/07/25 Expected End: 04/14/25 Encounter Problems (Resolved) There are no resolved problems. Education Documentation Home Exercise Program, taught by Melody Lucas PT at 04/07/2025 2:07 PM. Learner: Patient Readiness: Eager Method: Explanation, Demonstration Response: Verbalizes Understanding, Demonstrated Understanding, Needs Reinforcement Mobility Training, taught by Melody Lucas PT at 04/07/2025 2:07 PM. Learner: Patient Readiness: Eager Method: Explanation, Demonstration Response: Verbalizes Understanding, Demonstrated Understanding, Needs Reinforcement Education Comments No comments found. Melody Lucas PT [1] Patient Active Problem List Diagnosis Paroxysmal atrial fibrillation ([facility]/HCC V24, CMS/HCC V28) Chronic diastolic congestive heart failure (CMS/HCC V24, CMS/HCC V28) Hypertensive disorder Hyperlipidemia Severe [place] [place], [facility] V28) Edentulous Constipation Recurrent UTI Atrophic vaginitis Migraine JOSEPH (obstructive sleep apnea) Complex regional pain syndrome I Tobacco use disorder Bipolar 1 disorder ([facility] V24, [facility] V28) Anxiety Gait instability Fibromyalgia Dupuytren's contracture of right hand Trigger finger Hearing loss Vocal cord dysfunction Chronic respiratory failure with hypoxia ([facility] V24, [facility] V28) Suicidal ideation Conversion disorder with attacks or seizures Chronic obstructive pulmonary disease ([facility] V24, [facility] V28) Urinary, incontinence, stress female Tendonitis of left rotator cuff Type 2 diabetes mellitus with hypoglycemia ([facility] V24, [facility] V28) Osteoarthritis of feet, bilateral Hematuria, microscopic Pain in back Plantar fascial fibromatosis DDD (degenerative disc disease), cervical Multiple nodules of lung Blood in stool Dysphagia Post-traumatic stress disorder, acute Iron deficiency anemia Abnormal mammogram Other specified disorders of bone density and structure, multiple sites Encounter for medication management Mild dementia with mood disturbance, unspecified dementia type [place] [place], [facility] V28) History of DVT (deep vein thrombosis) Gastroesophageal reflux disease without esophagitis Costochondritis Other chest pain Physical deconditioning [2] Past Medical History: Diagnosis Date A-fib [place] [place], [facility] [place]) Abdominal pain 07/30/2024 CHF (congestive heart failure) [place] [place] [facility] [place]28) Chronic kidney disease COPD (chronic obstructive pulmonary disease) ([facility] [place], [facility] V28) DVT of proximal leg (deep vein thrombosis) [place] [place], [facility] [place]28) History of CVA (cerebrovascular accident) History of deep vein thrombosis History of esophageal stricture History of falling History of pulmonary embolism Hyperlipidemia Hypertension Leukocytosis (leucocytosis) 01/29/2024 Migraine Oral lesion 07/30/2024 Pneumonia of right lower lobe due to infectious organism 11/21/2024 Pulmonary embolism [place] [place], [facility] [place]) Sleep apnea Wears dentures [3] Past Surgical History: Procedure Laterality Date SECTION CHOLECYSTECTOMY COLONOSCOPY SPLENECTOMY, TOTAL STEREOTACTIC CORE BIOPSY Left TONSILLECTOMY * Kaylan Munoz MD - 04/07/2025 8:34 AM EDT Connected to patient's room via I-pad with help from polysomnographic technician; assistance much appreciated. Patient consented verbally to visit via Telehealth video conferencing modality. Patient educated asto likely differences between Telehealth care and face to face care. Patient informed of the risks and benefits of using Telehealth services and procedures and likely risks and benefits of using alternatives to Telehealth services. Patient informed of the right to refuse Telehealth services at any time without jeopardizing his/her right to future care, services or benefits. Patient was informed that he/she is being seen solely by Kaylan Munoz MD today via secure audio/visual connection in alocked virtual exam room. Persons present on patient's end: Patient Persons present on provider's end in [place]: Kaylan Munoz MD CHART REVIEWED, PATIENT INTERVIEWED. CHIEF COMPLAINT: Bipolar disorder Time spent on encounter: 16 min (6 min face to face, 10 min in chart review and documentation) Billing: [facility] HISTORY OF PRESENT ILLNESS Lucila Cruz is a 64 y.o. 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 Psychiatry was consulted for evaluation of the patient's psychotropic medications d/t concern for polypharmacy. The patient states that she is feeling okay this morning but doesn't know exactly why sheis in the hospital. She states, I guess I have to get some tests. She is hoping to get stabilizedand then go to a medical rehab facility. She feels that her mental health is currently stable. She doesn't feel depressed, but she is a little anxious about being in the hospital. She denies any symptoms of nicolas/hypomania. The patient denies any suicidal ideations, plan, or intent. REVIEW OF SYSTEMS CONSTITUTIONAL: The patient denies fevers, chills, sweats and body ache. HEENT: Denies DEJESUS, blurry vision, eye pain, tinnitus, vertigo, gingival bleeding, sore throat, neck or thyroid masses. RESPIRATORY: Denies cough, sputum, hemoptysis. CARDIAC: Denies chest pain, pressure, palpitations, irregular heartbeats. Denies lower extremity edema. GASTROINTESTINAL: Denies abdominal pain, changes in bowel habits or any bleeding on toilet paper. GENITOURINARY: Denies dysuria, hematuria, nocturia or frequency. NEUROLOGIC: Denies headaches, dizziness, syncope. MUSCULOSKELETAL: Negative for arthritis. Denies muscle weakness. No limitation in range of motion. VASCULAR: Denies claudication and cramping. ENDOCRINOLOGY: Denies heat or cold intolerance. HEMATOLOGY: Denies easy bleeding or blood transfusion. DERMATOLOGY: Denies changes in moles or pigmentation changes. Psychiatric ROS: Depression: See HPI. Nicolas: See HPI. Psychosis: The patient denies audio or visual hallucinations, delusions, thought broadcasting, thought insertion, delusions of reference, catatonia, or disorganized speech or behavior. Anxiety: The patient denies any excessive worry, restlessness, fatigue, poor concentration, irritability, muscle tension, or anxiety-related sleep changes. Panic: The patient denies any recent panic episodes. PTSD: The patient does not endorse any current s/s related to PTSD. OCD: The patient denies intrusive thoughts, repetitive behaviors, counting, checking, washing, symmetry, or grouping and ordering that take up more than 1 hour of the day. Eating Disorder: The patient denies feeling overweight, excessive dieting or exercise to lose weight, overuse of laxatives, binging/purging behaviors, and amenorrhea. MEDICAL HISTORY Non-psychiatric medical history: Medical History[1] Current medications: MEDSSCHEDULED[2] ALLERGIES: Current Allergies[3] MSE: Appearance: AOx4. Appears stated age, well groomed. Pleasant and cooperative. Adequate eye contact.No psychomotor agitation or retardation. No evidence of EPS. Muscle tone/station: WNL. Orientation: To person, place, time, and situation. Attention and Concentration: No deficits in attention and concentration. Speech: Normal rate, rhythm, volume, and tone. Mood: Okay. Affect: Mostly euthymic with access to full range, mood congruent. No lability noted. Thought Process: Coherent, linear, logical, and goal-directed. No FOI or [place]. No thought blocking. Thought Content: Denies suicidal/homicidal ideation. Denies auditory/visual hallucinations. No delusions. No paranoia. Perception/associations: Denies hallucinations, somatic complaints, or tactile disturbances Suicidal Ideations: Pt denies SI, intent, or plan. Low acute risk. Currently is future oriented, motivated for treatment, and compliant with medications. Homicidal Ideations: Pt denies HI, intent, or plan. Low acute risk. No history of violence. No access to firearms. Behavior: No abnormal behavior during interview. Fund of Knowledge: Appropriate for age and level of education Intellect/Memory: Estimated as average based on interview. Immediate, recent, and remote memory is grossly intact. Language: No deficits Judgment/Insight: fair at present. Musculoskeletal Exam: Movement: [x]normal []abnormal [-]dyskinesias [-]tremors [-]tics Station: [x]upright []hyperflexed/stooped []hyperextended Muscle strength [x]appears normal [-]appears abnormal Muscle tone: [x]normal [-]muscle rigidity LABS: Admission on 03/31/2025 Component Date Value Ref Range Status Ventricular Rate ECG 03/31/2025 73 BPM Final Atrial Rate 03/31/2025 73 BPM Final P-R Interval 03/31/2025 194 ms Final QRS Duration 03/31/2025 90 ms Final Q-T Interval 03/31/2025 436 ms Final QTc 03/31/2025 480 ms Final P Wave [place] 03/31/2025 39 degrees Final R [place] 03/31/2025 77 degrees Final T [place] 03/31/2025 69 degrees Final ECG Interpretation 03/31/2025 Final Value:Normal sinus rhythm Normal ECG No previous ECGs available Confirmed by Roger MCKAY JAMES ([id number]) on 04/01/2025 12:30:35 PM Sodium 03/31/2025 136 133 - 145 mmol/L Final Potassium 03/31/2025 4.4 3.5 - 5.5 mmol/L Final Chloride 03/31/2025 105 96 - 110 mmol/L Final CO2 03/31/2025 28 21 - 32 mmol/L Final Anion Gap 03/31/2025 3 3 - 11 Final Glucose 03/31/2025 99 70 - 100 mg/dL Final BUN 03/31/2025 20 5 - 25 mg/dL Final Creatinine 03/31/2025 1.07 0.50 - 1.10 mg/dL Final eGFR 03/31/2025 59 (L) >=60 mL/min/1.73m2 Final Calculation based on the Chronic Kidney Disease Epidemiology Collaboration (CKD- EPI) equation refitwithout adjustment for race. BUN/Creatinine Ratio 03/31/2025 18.7 Final Calcium 03/31/2025 9.4 8.5 - 10.5 mg/dL Final Magnesium 03/31/2025 1.9 1.9 - 2.6 mg/dL Final WBC 03/31/2025 13.9 (H) 4.8 - 10.8 K/mcL Final RBC 03/31/2025 4.70 3.80 - 4.80 M/mcL Final Hemoglobin 03/31/2025 14.7 11.5 - 16.0 g/dL Final Hematocrit 03/31/2025 44.9 35.0 - 47.0 % Final MCV 03/31/2025 95.9 79.0 - 98.0 FL Final MCH 03/31/2025 31.4 27.0 - 32.0 pcg Final MCHC 03/31/2025 32.7 32.0 - 37.0 g/dL Final RDW 03/31/2025 13.3 11.0 - 15.0 % Final Platelets 03/31/2025 372 130 - 400 K/mcL Final MPV 03/31/2025 10.0 7.0 - 11.0 FL Final NRBC 03/31/2025 0.0 <1.0 % Final NRBC Absolute 03/31/2025 0.00 <0.10 K/mcL Final Neutrophils Relative 03/31/2025 75.4 % Final Lymphocytes Relative 03/31/2025 14.5 % Final Monocytes Relative 03/31/2025 8.4 % Final Eosinophils Relative 03/31/2025 0.8 % Final Basophils Relative 03/31/2025 0.5 % Final Immature Granulocytes Relative 03/31/2025 0.4 % Final Neutrophils Absolute 03/31/2025 10.49 (H) 1.50 - 7.00 K/mcL Final Lymphocytes Absolute 03/31/2025 2.01 1.00 - 5.00 K/mcL Final Monocytes Absolute 03/31/2025 1.17 (H) 0.20 - 1.00 K/mcL Final Eosinophils Absolute 03/31/2025 0.11 0.00 - 0.50 K/mcL Final Basophils Absolute 03/31/2025 0.07 0.00 - 0.20 K/mcL Final Immature Granulocytes Absolute 03/31/2025 0.06 (H) 0.00 - 0.03 K/mcL Final Specific [place] Urine 04/01/2025 1.024 1.003 - 1.030 Final pH, Urine 04/01/2025 7.0 5.0 - 8.0 pH Final Leukocytes, Urine 04/01/2025 Small (A) Negative Final Nitrite, Urine 04/01/2025 Negative Negative Final Protein, Urine 04/01/2025 Trace <=Trace mg/dL Final Glucose, Urine 04/01/2025 Negative Negative mg/dL Final Ketones, Urine 04/01/2025 Trace (A) Negative mg/dL Final Urobilinogen, Urine 04/01/2025 1.0 0.2 - 1.0 mg/dL Final Bilirubin, Urine 04/01/2025 Negative Negative Final Blood, Urine 04/01/2025 Small (A) Negative Final RBC, Urine 04/01/2025 37.9 (H) 0 - 4 /HPF Final WBC, Urine 04/01/2025 2.9 0 - 4 /HPF Final Squamous Epithelial, Urine 04/01/2025 79 (H) 0 - 60 /LPF Final Bacteria, Urine 04/01/2025 Negative Negative /HPF Final Hyaline Casts, Urine 04/01/2025 2.0 0 - 3 /LPF Final Extra Tube 04/01/2025 Hold for add-ons. Final Auto resulted. Glucose POCT 03/31/2025 110 (H) 70 - 100 mg/dL Final Culture, Urine 04/01/2025 10,000-49,000 CFU/mL Proteus mirabilis (A) Final Comment: Edited result: Previously reported as Proteus species on 04/02/2025 at 1005 EDT. Glucose POCT 04/01/2025 89 70 - 100 mg/dL Final Specific [place] Urine 04/06/2025 1.020 1.003 - 1.030 Final pH, Urine 04/06/2025 6.0 5.0 - 8.0 pH Final Leukocytes, Urine 04/06/2025 Large (A) Negative Final Nitrite, Urine 04/06/2025 Positive (A) Negative Final Protein, Urine 04/06/2025 30 (A) <=Trace mg/dL Final Glucose, Urine 04/06/2025 Negative Negative mg/dL Final Ketones, Urine 04/06/2025 Negative Negative mg/dL Final Urobilinogen, Urine 04/06/2025 1.0 0.2 - 1.0 mg/dL Final Bilirubin, Urine 04/06/2025 Negative Negative Final Blood, Urine 04/06/2025 Moderate (A) Negative Final RBC, Urine 04/06/2025 20.3 (H) 0 - 4 /HPF Final WBC, Urine 04/06/2025 824.0 (H) 0 - 4 /HPF Final Squamous Epithelial, Urine 04/06/2025 31 0 - 60 /LPF Final Bacteria, Urine 04/06/2025 Many (A) Negative /HPF Final Hyaline Casts, Urine 04/06/2025 0.8 0 - 3 /LPF Final Sodium 04/06/2025 136 133 - 145 mmol/L Final Potassium 04/06/2025 4.0 3.5 - 5.5 mmol/L Final Chloride 04/06/2025 103 96 - 110 mmol/L Final CO2 04/06/2025 27 21 - 32 mmol/L Final Anion Gap 04/06/2025 6 3 - 11 Final Glucose 04/06/2025 85 70 - 100 mg/dL Final BUN 04/06/2025 16 5 - 25 mg/dL Final Creatinine 04/06/2025 0.82 0.50 - 1.10 mg/dL Final eGFR 04/06/2025 81 >=60 mL/min/1.73m2 Final Calculation based on the Chronic Kidney Disease Epidemiology Collaboration (CKD- EPI) equation refitwithout adjustment for race. BUN/Creatinine Ratio 04/06/2025 19.5 Final Calcium 04/06/2025 9.4 8.5 - 10.5 mg/dL Final AST (SGOT) 04/06/2025 30 10 - 42 unit/L Final ALT (SGPT) 04/06/2025 29 10 - 60 unit/L Final Alkaline Phosphatase 04/06/2025 119 42 - 121 unit/L Final Total Protein 04/06/2025 6.6 6.0 - 8.0 g/dL Final Albumin 04/06/2025 3.3 3.2 - 5.0 g/dL Final Total Bilirubin 04/06/2025 0.4 0.0 - 1.4 mg/dL Final BNP 04/06/2025 23 <=100 pcg/mL Final High Sensitivity Troponin I 04/06/2025 6 <=54 ng/L Final WBC 04/06/2025 9.5 4.8 - 10.8 K/mcL Final RBC 04/06/2025 4.70 3.80 - 4.80 M/mcL Final Hemoglobin 04/06/2025 15.0 11.5 - 16.0 g/dL Final Hematocrit 04/06/2025 44.9 35.0 - 47.0 % Final MCV 04/06/2025 96.1 79.0 - 98.0 FL Final MCH 04/06/2025 32.1 (H) 27.0 - 32.0 pcg Final MCHC 04/06/2025 33.4 32.0 - 37.0 g/dL Final RDW 04/06/2025 12.9 11.0 - 15.0 % Final Platelets 04/06/2025 326 130 - 400 K/mcL Final MPV 04/06/2025 9.4 7.0 - 11.0 FL Final NRBC 04/06/2025 0.0 <1.0 % Final NRBC Absolute 04/06/2025 0.00 <0.10 K/mcL Final Neutrophils Relative 04/06/2025 60.3 % Final Lymphocytes Relative 04/06/2025 26.4 % Final Monocytes Relative 04/06/2025 10.7 % Final Eosinophils Relative 04/06/2025 1.8 % Final Basophils Relative 04/06/2025 0.6 % Final Immature Granulocytes Relative 04/06/2025 0.2 % Final Neutrophils Absolute 04/06/2025 5.73 1.50 - 7.00 K/mcL Final Lymphocytes Absolute 04/06/2025 2.51 1.00 - 5.00 K/mcL Final Monocytes Absolute 04/06/2025 1.02 (H) 0.20 - 1.00 K/mcL Final Eosinophils Absolute 04/06/2025 0.17 0.00 - 0.50 K/mcL Final Basophils Absolute 04/06/2025 0.06 0.00 - 0.20 K/mcL Final Immature Granulocytes Absolute 04/06/2025 0.02 0.00 - 0.03 K/mcL Final Specific [place] Urine 04/06/2025 1.020 1.003 - 1.030 Final pH, Urine 04/06/2025 6.0 5.0 - 8.0 pH Final Leukocytes, Urine 04/06/2025 Large (A) Negative Final Nitrite, Urine 04/06/2025 Positive (A) Negative Final Protein, Urine 04/06/2025 30 (A) <=Trace mg/dL Final Glucose, Urine 04/06/2025 Negative Negative mg/dL Final Ketones, Urine 04/06/2025 Negative Negative mg/dL Final Urobilinogen, Urine 04/06/2025 1.0 0.2 - 1.0 mg/dL Final Bilirubin, Urine 04/06/2025 Negative Negative Final Blood, Urine 04/06/2025 Moderate (A) Negative Final RBC, Urine 04/06/2025 20.3 (H) 0 - 4 /HPF Final WBC, Urine 04/06/2025 824.0 (H) 0 - 4 /HPF Final Squamous Epithelial, Urine 04/06/2025 31 0 - 60 /LPF Final Bacteria, Urine 04/06/2025 Many (A) Negative /HPF Final Hyaline Casts, Urine 04/06/2025 0.8 0 - 3 /LPF Final Extra Tube 04/06/2025 Hold for add-ons. Final Auto resulted. Culture, Urine 04/06/2025 50,000-100,000 CFU/mL Gram negative bacilli (A) Preliminary VITALS: BP: 110/64 (04/07 735) Heart Rate: 58 (04/07 735) Heart Rate Source: Left (04/06 600) Temp: 36.4 ??C (97.5 ??F) (04/07 735) Temp Source: Temporal (04/07 735) SpO2: 92 % (04/07 735) O2 Delivery Method: Other (Comment) (04/07 353) ASSESSMENT: Lucila Cruz is a 64 y.o. 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 Psychiatry was consulted for evaluation of the patient's psychotropic medications d/t concern for polypharmacy. DSM-5 DIAGNOSIS: Bipolar disorder, unspecified Nicotine use disorder DM, HLD, DVT, HTN, hearing loss, urinary incontinence, recurrent UTI, obesity, paroxysmal atrial fibrillation, plantar fascial fibromatosis, OA, and JOSEPH In ED following multiple falls TREATMENT PLAN: Pt has verbalized understanding and given consent/agreement with medications and plan offered. LEVEL OF CARE: Continue current level of treatment. RECOMMENDATIONS: Of note, the patient does not meet criteria for psychiatric admission to hospital or Section 12 at present. Also of note, the patient retains medical decision-making capacity at this time and can make her own medical decisions so long as her options are adequately explained to her. Taper and discontinue prazosin - 2 mg PO qHS x 7 days total (through 04/08/25), then 1 mg PO qHS x 7 days, then discontinue. Cautiously continue Prozac 40 mg PO daily for now; taper and d/c once prazosin and Wellbutrin XL have been addressed. Discussed/Reviewed mechanism of action of SSRIs, expected benefits and time to response, common SEs including GI, DEJESUS, drowsiness or activation, sexual SEs, and more rare but seriousadverse effects including agitation, nicolas, suicidal thoughts and behaviors. Since patient is currently admitted, she is amenable to a more aggressive rate of regimen simplification than was planned during psychiatric consultation last week. Taper and d/c Wellbutrin XL - 150 mg PO qAM x 3 days, then discontinue. Continue Trileptal 600 mg PO BID for mood stability. Discussed/Reviewed potential adverse effects of Trileptal including rash/Francisco-Lux syndrome, leukopenia, thrombocytopenia, hyponatremia, andmore common side effects such as somnolence, dizziness, diplopia, GI upset, LFT elevations, impaired cognition and coordination. Continue Seroquel 400 mg PO qHS for mood stability and sleep. Discussed/Reviewed mechanism of action of antipsychotics, expected benefits and time to response, common SEs including sedation, orthostatic hypotension, glucose dysregulation, dyslipidemias, EPS side effects, and weight gain. Limit Ativan as much as possible. Discontinue hydroxyzine again; this medication should not be administered in a patient taking Seroquel. Please do not restart this medication. Medication Education: Risks, benefits, alternatives, and potential side effects were discussed withthe patient. Patient voiced understanding and agreed with medication regimen described above. LABS: Reviewed and discussed most recent labs results. MEDICATION CONTRACT: Patient agreed to take medication only as prescribed and acknowledges that services may be terminated if prescription abuse is observed. SAFETY PLAN: Patient is to alert team if symptoms worsen. Team will monitor for development of suicidal ideations or an acute medication reaction. - Call 911 or present to nearest Emergency Room in case of crisis / suicidal thoughts upon discharge. EDUCATION/CONSENT: Discussed and explained all diagnoses including differential diagnosis and treatment options. Discussed risks, benefits, potential side effects, contraindications, potential drug-drug interactions, alternatives to current medications and medication allergies as noted above. Discussed continuing to monitor for side effects and treatment efficacy prospectively and delineated patient's involvement and responsibility in monitoring for side effects and efficacy. [place] expressed understanding of these recommendations. BARRIERS TO LEARNING: Patient demonstrates a readiness to learn. Patient verbalizes understanding and agrees to plan. No barriers to communication noted. MEDICATION RECONCILIATION: Medications were reviewed and reconciled with the patient. PREVENTATIVE RECOMMENDATIONS: Preventative Health Education Counseling: discussed proper diet/nutrition, exercise, and sleep hygiene. The patient was encouraged to avoid nicotine, alcohol and illicitdrugs at all times. The patient was made aware that records from the u/s can be sent to his/her PCP at any time that he/she requests. [1] Past Medical History: Diagnosis Date A-fib ([facility] V24, [facility] V28) Abdominal pain 07/30/2024 CHF (congestive heart failure) ([facility] V24, [facility] V28) Chronic kidney disease COPD (chronic obstructive pulmonary disease) ([facility] V24, [facility] V28) DVT of proximal leg (deep vein thrombosis) ([facility] V24, [facility] V28) History of CVA (cerebrovascular accident) History of deep vein thrombosis History of esophageal stricture History of falling History of pulmonary embolism Hyperlipidemia Hypertension Leukocytosis (leucocytosis) 01/29/2024 Migraine Oral lesion 07/30/2024 Pneumonia of right lower lobe due to infectious organism 11/21/2024 Pulmonary embolism [place] [place], [facility] V28) Sleep apnea Wears dentures [2] apixaban, 5 mg, oral, BID aspirin, 81 mg, oral, Nightly atorvastatin, 40 mg, oral, Nightly formoterol, 20 mcg, nebulization, BID And budesonide, 1 mg, nebulization, Daily And revefenacin, 175 mcg, nebulization, Daily buPROPion XL, 300 mg, oral, q AM cefTRIAXone, 1 g, intravenous, q24h famotidine, 40 mg, oral, Nightly FLUoxetine, 40 mg, oral, Daily hydrOXYzine HCL, 25 mg, oral, TID [Held by provider] ketorolac, 30 mg, intramuscular, Once [Held by provider] lidocaine, 1 patch, Topical, Daily metoprolol succinate, 25 mg, oral, Daily OXcarbazepine, 600 mg, oral, BID prazosin, 2 mg, oral, Nightly [Held by provider] prazosin, 3 mg, oral, Nightly pregabalin, 200 mg, oral, BID QUEtiapine, 400 mg, oral, Nightly senna, 2 tablet, oral, Daily [3] Allergies Allergen Reactions Ciprofloxacin Other Skin peeled off back Other reaction(s): OTHER, Rash Skin peeled off back Penicillins Rash remote Sertraline * Ana Maria Gardner NP - 04/07/2025 7:44 AM EDT Images from the original note were not included. PRIETO PROGRESS NOTE Date: 04/07/2025 Author: Ana Maria Gardner NP Patient ID: Lucila Cruz is a 64 y.o. female : 1960 MR#: [id number] SUBJECTIVE Subjective Patient seen and examined in room 534 bed 2 Calm and cooperative Reporting pain left shoulder Continue Lidoderm patch and tylenol Being followed by Psych Continues on IV ceftriaxone Preliminary urine culture grew gram negative bacilli Final urine culture is pending Case discussed with patient, nursing staff, ICC nurse and attending MD Dr. Bonilla Allergies: Ciprofloxacin, Penicillins, and Sertraline Current Medications: MEDSSCHEDULED[1] MEDSCONTINUOUS[2] MEDSPRN[3] OBJECTIVE Vitals: 04/07/25 0353 04/07/25 0400 04/07/25 0700 04/07/25 0735 BP: 123/77 110/64 BP Location: Right arm Patient Position: Lying Pulse: 62 58 Resp: 16 20 Temp: 36.5 ??C (97.7 ??F) 36.4 ??C (97.5 ??F) TempSrc: Temporal SpO2: (!) 89% 93% 95% 92% Weight: Height: Physical Exam LABS HEMATOLOGY Lab Results Component Value Date WBC 5.6 04/07/2025 HGB 14.1 04/07/2025 HCT 42.4 04/07/2025 MCV 95.1 04/07/2025 PLT 302 04/07/2025 CHEMISTRY Lab Results Component Value Date GLUCOSE 90 04/07/2025 NA 134 04/07/2025 K 3.9 04/07/2025 CO2 26 04/07/2025 CL 100 04/07/2025 BUN 15 04/07/2025 CREATININE 0.80 04/07/2025 EGFR 83 04/07/2025 CALCIUM 9.4 04/07/2025 MG 2.1 04/07/2025 ANIONGAP 8 04/07/2025 Imaging: XR Knee 4+ Views Right Narrative: History: Right knee pain after fall. Findings: AP, oblique and lateral views of the right knee. No fracture or dislocation is seen. There is mild narrowing of the patellofemoral and femorotibial joint spaces. Bony hypertrophy of the tibial spinesis noted and there are marginal osteophytes throughout the knee. No joint effusion is identified. Impression: Impression: 1. No evidence of fracture. 2. Moderate tricompartmental arthritic change. Telerad HALLEY ([id number]) -------- FINAL REPORT -------- Dictated By: Berta Mock Dictated Date: 04/01/2025 09:13 ET Assigned Physician: Berta Mock Reviewed and Electronically Signed By: Berta Mock Signed Date: 04/01/2025 09:14 ET Workstation ID: [id number] Transcribed By: Self Edit Transcribed Date: 04/01/2025 09:[address] Head wo Contrast Narrative: INDICATION: fall with head strike on anticoagulation CT head without contrast Comparison: CT/UT/SR - CT HEAD WO CONTRAST - 12/30/24 15:10 EDT Findings: There is no acute intracranial hemorrhage. There is stable mild ex vacuo dilation of the ventricles. No mass effect or midline shift is present. The fernandez-white matter differentiation appears normal. There is mild generalized cerebral atrophy. There is an unchanged chronic lacunar infarct in the right caudate. There is an unchanged chronic lacunar infarct versus prominent perivascular space within the right basal ganglia inferiorly. The visualized portions of the orbits, paranasal sinuses, and mastoids are unremarkable. No fractures are identified. Impression: No acute intracranial abnormality. This document has been electronically signed by: Radhames Hinds MD on 04/01/2025 03:28:45 CT Thoracic Spine wo Contrast Narrative: INDICATION: fall, midline thoracic pain CT thoracic spine without contrast Comparison: None provided Findings: The alignment of the thoracic spine is normal. There is no fracture. Disc heights are preserved. There are multiple anterior osteophytes. There is multilevel facet osteoarthritis. There is no evidence of significant central canal or neuroforaminal stenosis. There is mild bilateral atelectasis. Impression: No evidence of thoracic spine injury. This document has been electronically signed by: Radhames Hinds MD on 04/01/2025 03:26:49 CT Cervical Spine wo Contrast Narrative: INDICATION: fall, midline neck pain CT cervical spine without contrast Comparison: None provided Findings: The alignment of the cervical spine is normal. There is no fracture. Disc heights are preserved. There are multiple anterior osteophytes. There are multilevel mild neuroforaminal stenoses due to facet and uncovertebral joint osteoarthritis. There is mild carotid artery calcification. Impression: No evidence of cervical spine injury. This document has been electronically signed by: Radhames Hinds MD on 04/01/2025 03:26:31 ASSESSMENT & PLAN UTI Urine culture growing gram negative bacilli Continue IV ceftriaxone Awaiting final urine culture Constipation Continue colace, senna, and Miralax Paroxysmal atrial fibrillation Secondary hypercoagulable state due to paroxysmal atrial fibrillation HR stable Continue Metoprolol and Eliquis Hypertension Continue Metoprolol Hyperlipidemia Continue statin Nicotine dependence Add nicotine patch Smoking cessation encouraged Bipolar disorder Major neurocognitive disorder Taper medications per Psych recommendations DVT prophylaxis Continue Eliquis FULL CODE My total time spent was 60 minutes I have discussed the above assessment and plan with my attending physician Dr. Bonilla who agrees withthe above assessment and plan. [1] acetaminophen, 1,000 mg, oral, q8h AMIRAH apixaban, 5 mg, oral, BID aspirin, 81 mg, oral, Nightly atorvastatin, 40 mg, oral, Nightly formoterol, 20 mcg, nebulization, BID And budesonide, 1 mg, nebulization, Daily And revefenacin, 175 mcg, nebulization, Daily [START ON 04/08/2025] buPROPion XL, 150 mg, oral, q AM cefTRIAXone, 1 g, intravenous, q24h famotidine, 40 mg, oral, Nightly FLUoxetine, 40 mg, oral, Daily lidocaine, 1 patch, Topical, Daily metoprolol succinate, 25 mg, oral, Daily OXcarbazepine, 600 mg, oral, BID [START ON 04/09/2025] prazosin, 1 mg, oral, Nightly prazosin, 2 mg, oral, Nightly pregabalin, 200 mg, oral, BID QUEtiapine, 400 mg, oral, Nightly senna, 2 tablet, oral, Daily [2] [3] PRN medications: albuterol, ipratropium-albuteroL, LORazepam, sodium phosphate Cosigned by Leighton Bonilla MD at 04/08/2025 10:02 AM EDT * YEYO Sandoval - 04/06/2025 10:38 AM EDT Per record, pt to be admitted/observation status. Secondary to behavior[facility]ag[facility] until pt is behavior and sitter free for 24 hours. Pasrr/level 2 screen in process, as coordinated by SNF requesting provisional emergency exemption. Social work to follow. * Lesa James RN - 04/06/2025 9:40 AM EDT Sitter now to be discontinued. Request for [facility] Pasrr[facility] the [facility] 48 [facility]. * Jayshree Moya RN - 04/06/2025 9:30 AM EDT Per , dr. Galindo, no need for patient to have sitter upstairs. * Jayshree Moya RN - 04/06/2025 9:17 AM EDT ED RN HANDOFF (All [facility] Must Be Completed) Reason/Diagnosis for Admission: weakness, need intensive inpatient PT but also med adjustment for psych medication. Been in er for 6 days and altered mental status. Type of Admission: [x] Medsurg, [] Telemetry Already in a Hospital Bed: [x] Yes / [] No Room Considerations/Precautions (ex: fever, diarrhea, or any infectious concerns): [] Yes / [x] No Abalone Sheller: [] Yes / [x] No If YES, Cardiac Rhythm: [] NSR, [] SB, [] ST, [] A-FIB, [] A-Flutter, [] Pacemaker, [] 1st Degree HB, [] 2nd Degree HB, [] 3rd Degree HB Reason for Abalone Sheller: VS: Visit Vitals BP 111/63 Pulse 64 Temp 36.6 ??C (97.8 ??F) (Oral) Resp 16 Ht 1.676 m (66 ) Wt 100 kg (220 lb 7.4 oz) SpO2 94% BMI 35.58 kg/m?? OB Status Postmenopausal Smoking Status Every Day BSA 2.08 m?? Current Mental Status: A/O x [x]4, []3, []2, []1 Current Ambulation Status: IV Access: [x] Yes / [] No Field IV present: [] Yes / [x] No Hx of Violence: [] Yes / [x] No / [] Unknown Fall Risk:[x] Yes / [] No Yellow Bracelet Applied [x] Yes / [] No Yellow Socks Applied [x] Yes / [] No Patient Belongings inventoried and BL completed: [x] Yes / [] No Patient belongings stored in the security closet: [] Yes (If Yes please supply Security bag #): [x] No Patient Medications stored in Pharmacy: [] Yes (If Yes please supply Medication Security bag #): [x] No ED Summary of Care: pt needs intensive inpatient PT- increased weakness. Family brought in for multiple falls and med adjustments. Patient has been in er for 6 days. Declining mentally, confused thisweekend- assist x at least 1. Submitted by and Phone Extension:[phone] * Tessa Gonzalez - 04/06/2025 9:13 AM EDT Images from the original note were not included. Medication History Information Assurance Manager Medication history has been obtained for Lucila Cruz (1960) by a Medication Historian and the home med list has been updated. History obtained from conversation with: Unable to obtain direct contact Additional Source(s) of History: Dispense history (no discrepancy between med list and fill history) []Updated Patient Preferred Pharmacy The Patient's Home Medications include: HOME MEDICATIONS INSTRUCTIONS NOTES albuterol HFA (PROAIR HFA ; PROVENTIL HFA ; VENTOLIN HFA) 90 mcg/actuation inhaler Inhale 2 puffs by mouth every 6 (six) hours if needed for wheezing or shortness of breath. apixaban (ELIQUIS) 5 mg tablet Take 1 tablet (5 mg total) by mouth 2 (two) times a day. aspirin 81 mg chewable tablet Chew 1 tablet (81 mg total) at bedtime. 1 tab chewed in the mouth daily atorvastatin (LIPITOR) 40 mg tablet Take 1 tablet (40 mg total) by mouth at bedtime. bumetanide (BUMEX) 2 mg tablet Take 1 tablet (2 mg total) by mouth 3 (three) times a week. Sunday, Sunday, Sunday. buPROPion XL (WELLBUTRIN XL) 150 mg 24 hr tablet Take 1 tablet (150 mg total) by mouth 1 (one) timeeach day in the morning. Do not crush, chew, or split. To total 450 mg daily. buPROPion XL (WELLBUTRIN XL) 300 mg 24 hr tablet Take 1 tablet (300 mg total) by mouth 1 (one) timeeach day in the morning. Do not crush, chew, or split. capsaicin (ZOSTRIX) 0.025 % cream Apply topically 4 (four) times a day if needed for mild pain. estradioL (ESTRACE) 0.01 % (0.1 mg/gram) vaginal cream Insert 2 g into the vagina 2 (two) times a week. 0.5 applicatorful as directed 2 times per week famotidine (Pepcid) 40 mg tablet Take 1 tablet (40 mg total) by mouth at bedtime. ferrous sulfate 325 mg (65 mg iron) EC tablet Take 1 tablet (325 mg total) by mouth 1 (one) time each day with breakfast. Do not crush, chew, or split. FLUoxetine (PROzac) 40 mg capsule Take 1 capsule (40 mg total) by mouth 1 (one) time each day. jdhkbayjiux-szoinbjuyhta-qsvfarniva (Trelegy Ellipta) 100-62.5-25 mcg inhaler Inhale 1 puff (100 mcg total) by mouth 1 (one) time each day. Rinse mouth with water after use to reduce aftertaste and incidence of candidiasis. Do not swallow. hydrOXYzine HCL (ATARAX) 25 mg tablet Take 1 tablet (25 mg total) by mouth 3 (three) times a day. ipratropium-albuteroL (DUONEB) 0.5-2.5 mg/3 mL nebulizer solution Take 3 mL by nebulization 3 (three) times a day if needed for wheezing. lidocaine (Aspercreme, lidocaine,) 4 % patch () Apply 1 patch topically 1 (one) time each day. LORazepam (ATIVAN) 1 mg tablet Take 1 tablet (1 mg total) by mouth every 8 (eight) hours. Max DailyAmount: 3 mg methenamine hippurate (HIPREX) 1 gram tablet Take 1 tablet (1 g total) by mouth 1 (one) time each day in the morning. 1 tab by mouth every morning metoprolol succinate (TOPROL-XL) 25 mg 24 hr tablet Take 1 tablet (25 mg total) by mouth 1 (one) time each day. Do not crush or chew. OXcarbazepine (TRILEPTAL) 300 mg tablet Take 2 tablets (600 mg total) by mouth 2 (two) times a day. potassium chloride (MICRO-K) 10 mEq CR capsule Take 1 capsule (10 mEq total) by mouth 2 (two) timesa day. prazosin (MINIPRESS) 1 mg capsule Take 3 capsules (3 mg total) by mouth at bedtime. pregabalin (Lyrica) 200 mg capsule Take 1 capsule (200 mg total) by mouth 2 (two) times a day. Max Daily Amount: 400 mg QUEtiapine (SeroqueL) 400 mg tablet Take 1 tablet (400 mg total) by mouth at bedtime. Center ([facility]) senna (Senna Lax) 8.6 mg tablet Take 2 tablets (17.2 mg total) by mouth 1 (one) time each day. sodium,potassium,mag sulfates (Suprep Bowel Prep Kit) 17.5-3.13-1.6 gram recon soln bowel prep kit oral solution Take 177ML by mouth for 2 doses. SEE INSTRUCTIONS PROVIDED BY OFFICE. Patient not taking. Reported on 04/06/2025 traZODone (DESYREL) 50 mg tablet Take 0.5 tablets (25 mg total) by mouth every 8 (eight) hours. Thank you, Tessa Gonzalez Medication Historian W: [phone] * Lesa James RN - 04/06/2025 9:13 AM EDT Patient remains with 1:1 sitter. [facility] referral is canceled and Jennifer Calderón Pace updated. * Jayhsree Moya RN - 04/06/2025 7:38 AM EDT Assumed care of patien. 1:1 patient observer at bedside and patient is sleeping. Rr:16 and equal appears comfortable and is snoring. * Amrita Duke MD - 04/06/2025 2:25 AM EDT Patient signed out to me with ongoing observation in the emergency department while awaiting a bed at a facility to care for this patient. She had some delirium as she had not been sleeping for the last few days while waiting in the emergency department for placement. However she was able to sleep comfortably with no distress and a private room here in the emergency department and has been sleeping throughout the shift on multiple reevaluations. ED Course as of 04/06/25 0225 Tue Mar 31, 2025 2240 EKG 2210 shows normal sinus rhythm with a rate of 73, normal axis, no STEMI. QTc 480. No priorfor comparison [EK] Wed Apr 01, [address] imaging and XR knee negative. [EK] 0333 Patient clear for PT eval, discharge planning [EK] 0416 Home meds ordered [EK] 1740 Patient signed out to me pending PT evaluation for placement for frequent falls [MZ] 2310 Received in signout. Patient awaiting safe discharge planning, was recommended to detention facility by PT. Per nursing note, patient becomes agitated and wants to leave, we are to call her daughters to have them come pick her up. [EK] Andressa Apr 02, 2025 0653 No acute needs during my shift. Patient's care was handed over to the oncoming provider. [EK] 2114 Received in signout. Continues to await ELIZABETH. [EK] Fri Apr 03, 2025 0502 No acute needs during my shift. Patient's care was handed over to the oncoming provider. [EK] 1348 Patient bed placement still in progress. Patient may be possibly referred for placement in psychiatric facility to stabilize her medication dosing/avoid over medication [AK] 1406 After discussion with consultants, we are referring the patient to [facility] for medication management. Patient is having recurrent falls. These may be related toovermedication/psychotropic medication dosing. Therefore the patient would benefit for medication ma nagement/stabilization/adjustments in a specialized facility. The patient has been medically cleared/determined medically safe for departure from the emergency department. Case management assisting in transfer planning. [AK] 2227 Received pt in signout, no issues during my shift, awaiting placement due to psyche issues andweaknesss will likely be here over weekend. [JL] Sat Apr 04, 2025 0740 S/o 64 you female with frequent falls. Using a walker, PT eval/CM. Concern for polypharmacy with psychotropic meds. Pending placement at [facility]. [BM] Shania Apr 05, 2025 0730 No acute needs during my shift. Patient became agitated and wanted to leave the department multiple times, was verbally redirected and as needed anxiety medications administered. Continues to [facility]. Will likely be in our ED until 04/07 due to holiday weekend. Patient's care was handed over to the oncoming provider. [EK] 0853 S/o pending behavioral health placement. Frequent falls. Possibly polypharmacy. [BM] Mon Apr 06, 2025 0221 Patient received in signout pending placement. Initially declined for psychiatric facility placement and declined from short-term rehab for prior psychiatric history. Patient with frequent falls and generalized weakness. Now having worsening delirium. Patient has not been sleeping well/overstimulated in ED. Placed in more peaceful room and now sleeping comfortably. No distress. Await social work assistance for placement. [AK] ED Course User Index [AK] Amrita Duke MD [BM] Ac Salamanca MD [EK] Evelia Lopez MD [JL] Sebastian Buck MD [MZ] Prieto Baldwin MD Clinical Impressions as of 04/06/25 0225 Fall, initial encounter Closed head injury, initial encounter Neck pain Acute midline thoracic back pain Polypharmacy Transfer to Another Facility 1. Fall, initial encounter 2. Closed head injury, initial encounter 3. Neck pain 4. Acute midline thoracic back pain 5. Polypharmacy Procedures * Ac Salamanca MD - 04/05/2025 1:46 PM EDT This patient's care was signed out to me by the offgoing provider. Please see her/his note for further details regarding initial presentation, history of present illness, physical exam, and medical decision making. Sign out: See ED course below Vitals: 04/07/25 1446 BP: 124/82 Pulse: 63 Resp: 16 Temp: 36.3 ??C (97.3 ??F) SpO2: 94% ED Course as of 04/07/254 Tue Mar 31, 2025 2240 EKG 2210 shows normal sinus rhythm with a rate of 73, normal axis, no STEMI. QTc 480. No priorfor comparison [EK] Wed Apr 01, [address] imaging and XR knee negative. [EK] 0333 Patient clear for PT eval, discharge planning [EK] 0416 Home meds ordered [EK] 1740 Patient signed out to me pending PT evaluation for placement for frequent falls [MZ] 2310 Received in signout. Patient awaiting safe discharge planning, was recommended to detention facility by PT. Per nursing note, patient becomes agitated and wants to leave, we are to call her daughters to have them come pick her up. [EK] Andressa Apr 02, 2025 0653 No acute needs during my shift. Patient's care was handed over to the oncoming provider. [EK] 2114 Received in signout. Continues to await ELIZABETH. [EK] Fri Apr 03, 2025 0502 No acute needs during my shift. Patient's care was handed over to the oncoming provider. [EK] 1348 Patient bed placement still in progress. Patient may be possibly referred for placement in psychiatric facility to stabilize her medication dosing/avoid over medication [AK] 1406 After discussion with consultants, we are referring the patient to [facility] for medication management. Patient is having recurrent falls. These may be related toovermedication/psychotropic medication dosing. Therefore the patient would benefit for medication ma nagement/stabilization/adjustments in a specialized facility. The patient has been medically cleared/determined medically safe for departure from the emergency department. Case management assisting in transfer planning. [AK] 2227 Received pt in signout, no issues during my shift, awaiting placement due to psyche issues andweaknesss will likely be here over weekend. [JL] Sat Apr 04, 2025 0740 S/o 64 you female with frequent falls. Using a walker, PT eval/CM. Concern for polypharmacy with psychotropic meds. Pending placement at [facility]. [BM] Sun Apr 05, 2025 0730 No acute needs during my shift. Patient became agitated and wanted to leave the department multiple times, was verbally redirected and as needed anxiety medications administered. Continues to await [facility] at [facility]. Will likely be in our ED until 04/07 due to holiday weekend. Patient's care was handed over to the oncoming provider. [EK] 0853 S/o pending behavioral health placement. Frequent falls. Possibly polypharmacy. [BM] Mon Apr 06, 2025 0221 Patient received in signout pending placement. Initially declined for psychiatric facility placement and declined from short-term rehab for prior psychiatric history. Patient with frequent falls and generalized weakness. Now having worsening delirium. Patient has not been sleeping well/overstimulated in ED. Placed in more peaceful room and now sleeping comfortably. No distress. Await social work assistance for placement. [AK] 0706 Assumed care pending disposition care home and/or psychiatric care [WG] 0819 Patient she is lying in bed. She is oriented to place, month and year. Stated disposition is pending. Consideration for admission to the hospital and the hospitalist team requested blood work which was ordered. Patient is amenable to blood work and urinalysis. [WG] 0932 Urinalysis with reflex microscopic ([id number])(!) [WG] ED Course User Index [AK] Amrita Duke MD [BM] Ac Salamanca MD [EK] Evelia Lopez MD [JL] Sebastian Buck MD [MZ] Prieto Baldwin MD [WG] Deacon Olivera MD Clinical Impressions as of 04/07/25 2214 Fall, initial encounter Closed head injury, initial encounter Neck pain Acute midline thoracic back pain Polypharmacy * Craol Roman LCSW - 04/05/2025 8:16 AM EDT Per review of chart pt is waiting for a level 2 PASSR to be completed by the facility pt [facility] d[facility] will continue to follow * Landen Garcia RN - 04/04/2025 9:57 PM EDT Pt ambulated out of room using walker when this RN asked if she was going to the bathroom to which the pt stated I'm leaving I'm getting out of here this RN tried to redirect pt by attempting to walk pt to her room but pt grew agitated claiming she wants to leave and that someone has a bomb here and that the place will get blown up. Attempted to reassure pt that there was no bomb but pt was consistent that there is and that she would like to go outside to smoke a cigarette. clean up person told pt that this was a no smoking facility and that she cannot go outside to smoke. This RN and EDT Eleazar redirected pt to pt room and offered pt to watch movie, read magazine, and color to which pt declined. Pt requesting anti-anxiety medication. Pt has PRN refer to MAR. * Delisa Dobbs RN - 04/04/2025 9:48 PM EDT Pt was resting in bed when she over heard a pt talking about people breaking into his home with weapons. Pt became anxious thinking that another pt had a gun. Pt attempted to elope via walker. LOUISE Schuster offered to assist pt to bathroom, pt stated I'm out of here! I'm leaving this place! Pt continued to walk toward exit. Additional staff, including this RN, Eleazar GILES, and clean up person Jeannine responded. Pt stated that she needed to go outside to smoke a cigarette. Pt educated that she is not allowedto leave the department while she is a patient. Pt became agitated. Security responded, and pt was escorted back to her room. clean up person assigned PO to observe pt, pt's bed alarm on. * Evelia Lopez MD - 04/04/2025 9:29 PM EDT Lucila Cruz This patient's care was signed out to me by the offgoing provider. Please see her/his note for further details regarding initial presentation, history of present illness, physical exam, and medical decision making. At time of signout, the following was pending: continues to [facility] Will likely be in our ED until 04/07 due to holiday weekend ED Course as of 04/05/25 0927 Tue Mar 31, 2025 2240 EKG 2210 shows normal sinus rhythm with a rate of 73, normal axis, no STEMI. QTc 480. No priorfor comparison [EK] Wed Apr 01, [address] imaging and XR knee negative. [EK] 0333 Patient clear for PT eval, discharge planning [EK] 0416 Home meds ordered [EK] 1740 Patient signed out to me pending PT evaluation for placement for frequent falls [MZ] 2310 Received in signout. Patient awaiting safe discharge planning, was recommended to detention facility by PT. Per nursing note, patient becomes agitated and wants to leave, we are to call her daughters to have them come pick her up. [EK] Andressa Apr 02, 2025 0653 No acute needs during my shift. Patient's care was handed over to the oncoming provider. [EK] 2114 Received in signout. Continues to await ELIZABETH. [EK] Fri Apr 03, 2025 0502 No acute needs during my shift. Patient's care was handed over to the oncoming provider. [EK] 1348 Patient bed placement still in progress. Patient may be possibly referred for placement in psychiatric facility to stabilize her medication dosing/avoid over medication [AK] 1406 After discussion with consultants, we are referring the patient to [facility] for medication management. Patient is having recurrent falls. These may be related toovermedication/psychotropic medication dosing. Therefore the patient would benefit for medication ma nagement/stabilization/adjustments in a specialized facility. The patient has been medically cleared/determined medically safe for departure from the emergency department. Case management assisting in transfer planning. [AK] 2227 Received pt in signout, no issues during my shift, awaiting placement due to psyche issues andweaknesss will likely be here over weekend. [JL] Sat Apr 04, 2025 0740 S/o 64 you female with frequent falls. Using a walker, PT eval/CM. Concern for polypharmacy with psychotropic meds. Pending placement at [facility]. [BM] Sun Apr 05, 2025 0730 No acute needs during my shift. Patient became agitated and wanted to leave the department multiple times, was verbally redirected and as needed anxiety medications administered. Continues to [facility]. Will likely be in our ED until 04/07 due to holiday weekend. Patient's care was handed over to the oncoming provider. [EK] 0853 S/o pending behavioral health placement. Frequent falls. Possibly polypharmacy. [BM] ED Course User Index [AK] Amrita Duke MD [BM] Ac Salamanca MD [EK] Evelia Lopez MD [JL] Sebastian Buck MD [MZ] Prieto Baldwin MD Clinical Impressions as of 04/05/25 0927 Fall, initial encounter Closed head injury, initial encounter Neck pain Acute midline thoracic back pain Polypharmacy XR Knee 4+ Views Right ED Interpretation No acute osseous abnormality Final Result Impression: 1. No evidence of fracture. 2. Moderate tricompartmental arthritic change. Telerad HALLEY ([id number]) -------- FINAL REPORT -------- Dictated By: Berta Mock Dictated Date: 04/01/2025 09:13 ET Assigned Physician: Berta Mock Reviewed and Electronically Signed By: Berta Mock Signed Date: 04/01/2025 09:14 ET Workstation ID: [id number] Transcribed By: Self Edit Transcribed Date: 04/01/2025 09:[address] Head wo Contrast Final Result No acute intracranial abnormality. This document has been electronically signed by: Radhames Hinds MD on 04/01/2025 03:28:45 CT Cervical Spine wo Contrast Final Result No evidence of cervical spine injury. This document has been electronically signed by: Radhames Hinds MD on 04/01/2025 03:26:31 CT Thoracic Spine wo Contrast Final Result No evidence of thoracic spine injury. This document has been electronically signed by: Radhames Hinds MD on 04/01/2025 03:26:49 Labs Reviewed CULTURE URINE - Abnormal Result Value Culture, Urine 10,000-49,000 CFU/mL Proteus mirabilis (*) Narrative: Additional colony types present in insignificant amounts. BASIC METABOLIC PANEL - Abnormal Sodium 136 Potassium 4.4 Chloride 105 CO2 28 Anion Gap 3 Glucose 99 BUN 20 Creatinine 1.07 eGFR 59 (*) BUN/Creatinine Ratio 18.7 Calcium 9.4 CBC WITH AUTO DIFFERENTIAL - Abnormal WBC 13.9 (*) RBC 4.70 Hemoglobin 14.7 Hematocrit 44.9 MCV 95.9 MCH 31.4 MCHC 32.7 RDW 13.3 Platelets 372 MPV 10.0 NRBC 0.0 NRBC Absolute 0.00 Neutrophils Relative 75.4 Lymphocytes Relative 14.5 Monocytes Relative 8.4 Eosinophils Relative 0.8 Basophils Relative 0.5 Immature Granulocytes Relative 0.4 Neutrophils Absolute 10.49 (*) Lymphocytes Absolute 2.01 Monocytes Absolute 1.17 (*) Eosinophils Absolute 0.11 Basophils Absolute 0.07 Immature Granulocytes Absolute 0.06 (*) URINALYSIS WITH REFLEX MICROSCOPIC AND CULTURE - Abnormal Specific [place] Urine 1.024 pH, Urine 7.0 Leukocytes, Urine Small (*) Nitrite, Urine Negative Protein, Urine Trace Glucose, Urine Negative Ketones, Urine Trace (*) Urobilinogen, Urine 1.0 Bilirubin, Urine Negative Blood, Urine Small (*) RBC, Urine 37.9 (*) WBC, Urine 2.9 Squamous Epithelial, Urine 79 (*) Bacteria, Urine Negative Hyaline Casts, Urine 2.0 POCT GLUCOSE, BLOOD - Abnormal Glucose POCT 110 (*) MAGNESIUM - Normal Magnesium 1.9 POCT GLUCOSE, BLOOD - Normal Glucose POCT 89 CBC AND DIFFERENTIAL Narrative: The following orders were created for panel order CBC and differential. Procedure Abnormality Status --------- ------ CBC auto differential[[id number]] Abnormal Final result Please view results for these tests on the individual orders. URINALYSIS WITH REFLEX MICROSCOPIC AND CULTURE Narrative: The following orders were created for panel order Urinalysis with reflex microscopic and culture. Procedure Abnormality Status --------- ------ Urinalysis with reflex ...[[id number]] Abnormal Final result Fernandez urine culture tube[[id number]] Final result Please view results for these tests on the individual orders. POCT GLUCOSE, BLOOD Clinical Impression(s): Final diagnoses: [W19.XXXA] Fall, initial encounter [S09.90XA] Closed head injury, initial encounter [M54.2] Neck pain [M54.6] Acute midline thoracic back pain [Z79.899] Polypharmacy Transfer to Another Facility Previous Medications ALBUTEROL HFA (PROAIR HFA ; PROVENTIL HFA ; VENTOLIN HFA) 90 MCG/ACTUATION INHALER Inhale 2 puffs by mouth every 6 (six) hours if needed for wheezing or shortness of breath. APIXABAN (ELIQUIS) 5 MG TABLET Take 1 tablet (5 mg total) by mouth 2 (two) times a day. ASPIRIN 81 MG CHEWABLE TABLET Chew 1 tablet (81 mg total) at bedtime. 1 tab chewed in the mouth daily ATORVASTATIN (LIPITOR) 40 MG TABLET Take 1 tablet (40 mg total) by mouth at bedtime. BUMETANIDE (BUMEX) 2 MG TABLET Take 1 tablet (2 mg total) by mouth 3 (three) times a week. Sunday, Sunday, Sunday. BUPROPION XL (WELLBUTRIN XL) 150 MG 24 HR TABLET Take 1 tablet (150 mg total) by mouth 1 (one) timeeach day in the morning. Do not crush, chew, or split. To total 450 mg daily. BUPROPION XL (WELLBUTRIN XL) 300 MG 24 HR TABLET Take 1 tablet (300 mg total) by mouth 1 (one) timeeach day in the morning. Do not crush, chew, or split. CAPSAICIN (ZOSTRIX) 0.025 % CREAM Apply topically 4 (four) times a day if needed for mild pain. ESTRADIOL (ESTRACE) 0.01 % (0.1 MG/GRAM) VAGINAL CREAM Insert 2 g into the vagina 2 (two) times a week. 0.5 applicatorful as directed 2 times per week FAMOTIDINE (PEPCID) 40 MG TABLET Take 1 tablet (40 mg total) by mouth at bedtime. FERROUS SULFATE 325 MG (65 MG IRON) EC TABLET Take 1 tablet (325 mg total) by mouth 1 (one) time each day with breakfast. Do not crush, chew, or split. FLUOXETINE (PROZAC) 40 MG CAPSULE Take 1 capsule (40 mg total) by mouth 1 (one) time each day. OHZJCARONJN-KFYSYJOJOZBC-AOEGQPCXVP (TRELEGY ELLIPTA) 100-62.5-25 MCG INHALER Inhale 1 puff (100 mcg total) by mouth 1 (one) time each day. Rinse mouth with water after use to reduce aftertaste and incidence of candidiasis. Do not swallow. HYDROXYZINE HCL (ATARAX) 25 MG TABLET Take 1 tablet (25 mg total) by mouth 3 (three) times a day. IPRATROPIUM-ALBUTEROL (DUONEB) 0.5-2.5 MG/3 ML NEBULIZER SOLUTION Take 3 mL by nebulization 3 (three) times a day if needed for wheezing. LORAZEPAM (ATIVAN) 1 MG TABLET Take 1 tablet (1 mg total) by mouth every 8 (eight) hours. Max DailyAmount: 3 mg METHENAMINE HIPPURATE (HIPREX) 1 GRAM TABLET Take 1 tablet (1 g total) by mouth 1 (one) time each day in the morning. 1 tab by mouth every morning METOPROLOL SUCCINATE (TOPROL-XL) 25 MG 24 HR TABLET Take 1 tablet (25 mg total) by mouth 1 (one) time each day. Do not crush or chew. OXCARBAZEPINE (TRILEPTAL) 300 MG TABLET Take 2 tablets (600 mg total) by mouth 2 (two) times a day. POTASSIUM CHLORIDE (MICRO-K) 10 MEQ CR CAPSULE Take 1 capsule (10 mEq total) by mouth 2 (two) timesa day. PRAZOSIN (MINIPRESS) 1 MG CAPSULE Take 3 capsules (3 mg total) by mouth at bedtime. PREGABALIN (LYRICA) 200 MG CAPSULE Take 1 capsule (200 mg total) by mouth 2 (two) times a day. Max Daily Amount: 400 mg QUETIAPINE (SEROQUEL) 400 MG TABLET Take 1 tablet (400 mg total) by mouth at bedtime. Center ([facility]) SENNA (SENNA LAX) 8.6 MG TABLET Take 2 tablets (17.2 mg total) by mouth 1 (one) time each day. SODIUM,POTASSIUM,MAG SULFATES (SUPREP BOWEL PREP KIT) 17.5-3.13-1.6 GRAM RECON SOLN BOWEL PREP KIT ORAL SOLUTION Take 177ML by mouth for 2 doses. SEE INSTRUCTIONS PROVIDED BY OFFICE. TRAZODONE (DESYREL) 50 MG TABLET Take 0.5 tablets (25 mg total) by mouth every 8 (eight) hours. ED Medication Administration from 03/31/2025 2140 to 04/05/2025 0927 Date/Time Order Dose Route Action Action by 04/01/2025 0120 EDT acetaminophen (TYLENOL) tablet 1,000 mg 1,000 mg oral Given Lea, Jasmyn 04/01/2025 0849 EDT bumetanide (BUMEX) tablet 2 mg 2 mg oral Given Jass, R 04/01/2025 0847 EDT buPROPion XL (WELLBUTRIN XL) 24 hr tablet 300 mg 300 mg oral Given Jass, R 04/02/2025 0847 EDT buPROPion XL (WELLBUTRIN XL) 24 hr tablet 300 mg 300 mg oral Given Sokolov, S 04/03/2025 0847 EDT buPROPion XL (WELLBUTRIN XL) 24 hr tablet 300 mg 300 mg oral Given Vat Washer, K 04/04/2025 0849 EDT buPROPion XL (WELLBUTRIN XL) 24 hr tablet 300 mg 300 mg oral Given Hayden, A 04/05/2025 0818 EDT buPROPion XL (WELLBUTRIN XL) 24 hr tablet 300 mg 300 mg oral Given Vaughn, R 04/01/2025 0849 EDT FLUoxetine (PROzac) capsule 40 mg 40 mg oral Given Benson, R 04/02/2025 0847 EDT FLUoxetine (PROzac) capsule 40 mg 40 mg oral Given Sokolov, S 04/03/2025 0846 EDT FLUoxetine (PROzac) capsule 40 mg 40 mg oral Given Vat Washer, K 04/04/2025 0850 EDT FLUoxetine (PROzac) capsule 40 mg 40 mg oral Given Hayden, A 04/05/2025 0818 EDT FLUoxetine (PROzac) capsule 40 mg 40 mg oral Given Vaughn, R 04/01/2025 0427 EDT LORazepam (ATIVAN) tablet 1 mg 1 mg oral Given Tate, N 04/01/2025 1406 EDT LORazepam (ATIVAN) tablet 1 mg 1 mg oral Given Angulo, L 04/02/2025 2122 EDT LORazepam (ATIVAN) tablet 1 mg 1 mg oral Given Lapalm, M 04/03/2025 1425 EDT LORazepam (ATIVAN) tablet 1 mg 1 mg oral Given Vat Washer, K 04/04/2025 0220 EDT LORazepam (ATIVAN) tablet 1 mg 1 mg oral Given Buck, M 04/04/2025 1407 EDT LORazepam (ATIVAN) tablet 1 mg 1 mg oral Given Dilia, K 04/04/2025 2202 EDT LORazepam (ATIVAN) tablet 1 mg 1 mg oral Given Dilia, K 04/05/2025 0659 EDT LORazepam (ATIVAN) tablet 1 mg 1 mg oral Given Robert Le 04/01/2025 1406 EDT methenamine hippurate (HIPREX) tablet 1 g 1 g oral Given Angulo, L 04/02/2025 0854 EDT methenamine hippurate (HIPREX) tablet 1 g 1 g oral Given Sokolov, S 04/03/2025 0848 EDT methenamine hippurate (HIPREX) tablet 1 g 1 g oral Given Vat Washer, K 04/01/2025 0850 EDT metoprolol succinate (TOPROL-XL) 24 Hour tablet 25 mg 25 mg oral Given Benson, R 04/02/2025 0847 EDT metoprolol succinate (TOPROL-XL) 24 Hour tablet 25 mg 25 mg oral Given Sokolov,S 04/03/2025 0847 EDT metoprolol succinate (TOPROL-XL) 24 Hour tablet 25 mg 25 mg oral Given Vat Washer, K 04/04/2025 0849 EDT metoprolol succinate (TOPROL-XL) 24 Hour tablet 25 mg 25 mg oral Given Hayden, A 04/05/2025 0819 EDT metoprolol succinate (TOPROL-XL) 24 Hour tablet 25 mg 25 mg oral Given Vaughn,R 04/01/2025 0847 EDT OXcarbazepine (TRILEPTAL) tablet 600 mg 600 mg oral Given Benson, R 04/01/20252015 EDT OXcarbazepine (TRILEPTAL) tablet 600 mg 600 mg oral Given Teja, F 04/02/2025 0847 EDT OXcarbazepine (TRILEPTAL) tablet 600 mg 600 mg oral Given Sokolov, S 04/02/20252114 EDT OXcarbazepine (TRILEPTAL) tablet 600 mg 600 mg oral Given Lapalm, M 04/03/2025 0847 EDT OXcarbazepine (TRILEPTAL) tablet 600 mg 600 mg oral Given Vat Washer, K 04/03/20252019 EDT OXcarbazepine (TRILEPTAL) tablet 600 mg 600 mg oral Given Saykin, S 04/04/2025 0850 EDT OXcarbazepine (TRILEPTAL) tablet 600 mg 600 mg oral Given Hayden, A 04/04/20252043 EDT OXcarbazepine (TRILEPTAL) tablet 600 mg 600 mg oral Given Dilia, K 04/05/2025 0819 EDT OXcarbazepine (TRILEPTAL) tablet 600 mg 600 mg oral Given Vaughn, R 04/01/2025 0846 EDT pregabalin (LYRICA) capsule 200 mg 200 mg oral Not Given Benson, R 04/01/20252015 EDT pregabalin (LYRICA) capsule 200 mg 200 mg oral Given Teja, F 04/02/2025 0847 EDT pregabalin (LYRICA) capsule 200 mg 200 mg oral Given Sokolov, S 04/02/20252115 EDT pregabalin (LYRICA) capsule 200 mg 200 mg oral Given Lapalm, M 04/03/2025 0846 EDT pregabalin (LYRICA) capsule 200 mg 200 mg oral Given Vat Washer, K 04/03/20252019 EDT pregabalin (LYRICA) capsule 200 mg 200 mg oral Given Saykin, S 04/04/2025 0850 EDT pregabalin (LYRICA) capsule 200 mg 200 mg oral Given Hayden, A 04/04/20252042 EDT pregabalin (LYRICA) capsule 200 mg 200 mg oral Given Dilia, K 04/05/2025 0819 EDT pregabalin (LYRICA) capsule 200 mg 200 mg oral Given Vaughn, R 04/01/2025 0846 EDT potassium chloride (KLOR-CON M10) CR tablet 10 mEq 10 mEq oral Given Benson, R 04/01/20252014 EDT potassium chloride (KLOR-CON M10) CR tablet 10 mEq 10 mEq oral Given Teja, F 04/02/2025 0847 EDT potassium chloride (KLOR-CON M10) CR tablet 10 mEq 10 mEq oral Given Sokolov, S 04/01/2025 0847 EDT apixaban (ELIQUIS) tablet 5 mg 5 mg oral Given Benson, R 04/01/2025 2016 EDT apixaban (ELIQUIS) tablet 5 mg 5 mg oral Given Teja, F 04/02/2025 0847 EDT apixaban (ELIQUIS) tablet 5 mg 5 mg oral Given Sokolov, S 04/02/20252117 EDT apixaban (ELIQUIS) tablet 5 mg 5 mg oral Given Lapalm, M 04/03/2025 0847 EDT apixaban (ELIQUIS) tablet 5 mg 5 mg oral Given Vat Washer, K 04/03/20252019 EDT apixaban (ELIQUIS) tablet 5 mg 5 mg oral Given Saykin, S 04/04/2025 0849 EDT apixaban (ELIQUIS) tablet 5 mg 5 mg oral Given Hayden, A 04/04/20252044 EDT apixaban (ELIQUIS) tablet 5 mg 5 mg oral Given Dilia, K 04/05/2025 0819 EDT apixaban (ELIQUIS) tablet 5 mg 5 mg oral Given Vaughn, R 04/01/20252014 EDT prazosin (MINIPRESS) capsule 3 mg 3 mg oral Given Teja, F 04/01/20252015 EDT QUEtiapine (SEROquel) tablet 400 mg 400 mg oral Given Teja, F 04/02/20252116 EDT QUEtiapine (SEROquel) tablet 400 mg 400 mg oral Given Lapalm, M 04/03/20252019 EDT QUEtiapine (SEROquel) tablet 400 mg 400 mg oral Given Saykin, S 04/04/20252045 EDT QUEtiapine (SEROquel) tablet 400 mg 400 mg oral Given Dilia, K 04/02/20252117 EDT prazosin (MINIPRESS) capsule 2 mg 2 mg oral Given Lapalm, M 04/03/20252019 EDT prazosin (MINIPRESS) capsule 2 mg 2 mg oral Given Saykin, S 04/04/20252044 EDT prazosin (MINIPRESS) capsule 2 mg 2 mg oral Given Dilia, K 04/02/2025 1823 EDT acetaminophen (TYLENOL) tablet 500 mg 500 mg oral Given Petschke, M 04/03/20252019 EDT acetaminophen (TYLENOL) tablet 500 mg 500 mg oral Given Saykin, S 04/05/2025 0659 EDT acetaminophen (TYLENOL) tablet 500 mg 500 mg oral Given Robert Le 04/04/2025 1624 EDT nicotine (NICODERM CQ) 7 mg/24 hr 1 patch 1 patch transdermal Patch Applied Dilia, K 04/05/2025 0046 EDT aspirin chewable tablet 81 mg 81 mg oral Not Given Robert Le 04/05/2025 004 EDT atorvastatin (LIPITOR) tablet 40 mg 40 mg oral Not Given Robert Le 04/05/2025 0046 EDT famotidine (PEPCID) tablet 40 mg 40 mg oral Not Given Robert Le 04/05/2025 0819 EDT hydrOXYzine HCL (ATARAX) tablet 25 mg 25 mg oral Given Karl Vaughn 04/05/2025 0013 EDT traZODone (DESYREL) tablet 25 mg 25 mg oral Not Given Robert Le 04/05/2025 0659 EDT traZODone (DESYREL) tablet 25 mg 25 mg oral Given Robert Le * Delisa Dobbs RN - 04/04/2025 9:00 PM EDT Pt ambulated to bathroom with walker and standby assist. Pt tolerated well and denied dizziness, weakness. Pt assisted back to bed. Bed locked in lowest position, 2/4 siderails up for pt safety, callbell within reach. * YEYO Sandoval - 04/04/2025 11:01 AM EDT Confirmed with liaison, [facility]; request for [employer] exemption delayed until Sunday, April 06, 2025. ED notified of reason for delay. Pt to be updated. * Ac Salamanca MD - 04/04/2025 10:15 AM EDT Received sign out from Dr. lopez Sign out: See ED course Vitals: 04/07/25 1446 BP: 124/82 Pulse: 63 Resp: 16 Temp: 36.3 ??C (97.3 ??F) SpO2: 94% ED Course as of 04/07/254 Tue Mar 31, 2025 2240 EKG 2210 shows normal sinus rhythm with a rate of 73, normal axis, no STEMI. QTc 480. No priorfor comparison [EK] Wed Apr 01, [address] imaging and XR knee negative. [EK] 0333 Patient clear for PT eval, discharge planning [EK] 0416 Home meds ordered [EK] 1740 Patient signed out to me pending PT evaluation for placement for frequent falls [MZ] 2310 Received in signout. Patient awaiting safe discharge planning, was recommended to detention facility by PT. Per nursing note, patient becomes agitated and wants to leave, we are to call her daughters to have them come pick her up. [EK] Andressa Apr 02, 2025 0653 No acute needs during my shift. Patient's care was handed over to the oncoming provider. [EK] 2114 Received in signout. Continues to await ELIZABETH. [EK] Fri Apr 03, 2025 0502 No acute needs during my shift. Patient's care was handed over to the oncoming provider. [EK] 1348 Patient bed placement still in progress. Patient may be possibly referred for placement in psychiatric facility to stabilize her medication dosing/avoid over medication [AK] 1406 After discussion with consultants, we are referring the patient to [facility] for medication management. Patient is having recurrent falls. These may be related toovermedication/psychotropic medication dosing. Therefore the patient would benefit for medication ma nagement/stabilization/adjustments in a specialized facility. The patient has been medically cleared/determined medically safe for departure from the emergency department. Case management assisting in transfer planning. [AK] 2227 Received pt in signout, no issues during my shift, awaiting placement due to psyche issues andweaknesss will likely be here over weekend. [JL] Sat Apr 04, 2025 0740 S/o 64 you female with frequent falls. Using a walker, PT eval/CM. Concern for polypharmacy with psychotropic meds. Pending placement at [facility]. [BM] Shania Apr 05, 2025 0730 No acute needs during my shift. Patient became agitated and wanted to leave the department multiple times, was verbally redirected and as needed anxiety medications administered. [facility]. Will likely be in our ED until 04/07 due to holiday weekend. Patient's care was handed over to the oncoming provider. [EK] 0853 S/o pending behavioral health placement. Frequent falls. Possibly polypharmacy. [BM] Mon Apr 06, 2025 0221 Patient received in signout pending placement. Initially declined for psychiatric facility placement and declined from short-term rehab for prior psychiatric history. Patient with frequent falls and generalized weakness. Now having worsening delirium. Patient has not been sleeping well/overstimulated in ED. Placed in more peaceful room and now sleeping comfortably. No distress. Await social work assistance for placement. [AK] 0706 Assumed care pending disposition care home and/or psychiatric care [WG] 0819 Patient she is lying in bed. She is oriented to place, month and year. Stated disposition is pending. Consideration for admission to the hospital and the hospitalist team requested blood work which was ordered. Patient is amenable to blood work and urinalysis. [WG] 0932 Urinalysis with reflex microscopic ([id number])(!) [WG] ED Course User Index [AK] Amrita Duke MD [BM] Ac Salamanca MD [EK] Evelia Lopez MD [JL] Sebastian Buck MD [MZ] Prieto Baldwin MD [WG] Deacon Olivera MD Clinical Impressions as of 04/07/252213 Fall, initial encounter Closed head injury, initial encounter Neck pain Acute midline thoracic back pain Polypharmacy * Sebastian Buck MD - 04/03/2025 10:27 PM EDT ED Course as of 04/03/25 2353 Tue Mar 31, 2025 2240 EKG 2210 shows normal sinus rhythm with a rate of 73, normal axis, no STEMI. QTc 480. No priorfor comparison [EK] Wed Apr 01, [address] imaging and XR knee negative. [EK] 0333 Patient clear for PT eval, discharge planning [EK] 0416 Home meds ordered [EK] 1740 Patient signed out to me pending PT evaluation for placement for frequent falls [MZ] 2310 Received in signout. Patient awaiting safe discharge planning, was recommended to detention facility by PT. Per nursing note, patient becomes agitated and wants to leave, we are to call her daughters to have them come pick her up. [EK] Andressa Apr 02, 2025 0653 No acute needs during my shift. Patient's care was handed over to the oncoming provider. [EK] 2114 Received in signout. Continues to await ELIZABETH. [EK] Fri Apr 03, 2025 0502 No acute needs during my shift. Patient's care was handed over to the oncoming provider. [EK] 1348 Patient bed placement still in progress. Patient may be possibly referred for placement in psychiatric facility to stabilize her medication dosing/avoid over medication [AK] 1406 After discussion with consultants, we are referring the patient to [facility] for medication management. Patient is having recurrent falls. These may be related toovermedication/psychotropic medication dosing. Therefore the patient would benefit for medication ma nagement/stabilization/adjustments in a specialized facility. The patient has been medically cleared/determined medically safe for departure from the emergency department. Case management assisting in transfer planning. [AK] 2227 Received pt in signout, no issues during my shift, awaiting placement due to psyche issues andweaknesss will likely be here over weekend. [JL] ED Course User Index [AK] Amrita Duke MD [EK] Evelia Lopez MD [JL] Sebastian Buck MD [MZ] Prieto Baldwin MD Clinical Impressions as of 04/03/25 5972 Fall, initial encounter Closed head injury, initial encounter Neck pain Acute midline thoracic back pain Polypharmacy Transfer to Another Facility 1. Fall, initial encounter 2. Closed head injury, initial encounter 3. Neck pain 4. Acute midline thoracic back pain 5. Polypharmacy Procedures * Evelia Lopez MD - 04/03/2025 9:07 PM EDT Lucila Cruz This patient's care was signed out to me by the offgoing provider. Please see her/his note for further details regarding initial presentation, history of present illness, physical exam, and medical decision making. At time of signout, the following was pending: acceptance/transfer to [facility]. Will be in our department through the weekend (until at least 04/06) ED Course as of 04/05/25 0927 Tue Mar 31, 2025 2240 EKG 2210 shows normal sinus rhythm with a rate of 73, normal axis, no STEMI. QTc 480. No priorfor comparison [EK] Wed Apr 01, [address] imaging and XR knee negative. [EK] 0333 Patient clear for PT eval, discharge planning [EK] 0416 Home meds ordered [EK] 1740 Patient signed out to me pending PT evaluation for placement for frequent falls [MZ] 2310 Received in signout. Patient awaiting safe discharge planning, was recommended to detention facility by PT. Per nursing note, patient becomes agitated and wants to leave, we are to call her daughters to have them come pick her up. [EK] Andressa Apr 02, 2025 0653 No acute needs during my shift. Patient's care was handed over to the oncoming provider. [EK] 2114 Received in signout. Continues to await ELIZABETH. [EK] Fri Apr 03, 2025 0502 No acute needs during my shift. Patient's care was handed over to the oncoming provider. [EK] 1348 Patient bed placement still in progress. Patient may be possibly referred for placement in psychiatric facility to stabilize her medication dosing/avoid over medication [AK] 1406 After discussion with consultants, we are referring the patient to [facility] for medication management. Patient is having recurrent falls. These may be related toovermedication/psychotropic medication dosing. Therefore the patient would benefit for medication ma nagement/stabilization/adjustments in a specialized facility. The patient has been medically cleared/determined medically safe for departure from the emergency department. Case management assisting in transfer planning. [AK] 2227 Received pt in signout, no issues during my shift, awaiting placement due to psyche issues andweaknesss will likely be here over weekend. [JL] Sat Apr 04, 2025 0740 S/o 64 you female with frequent falls. Using a walker, PT eval/CM. Concern for polypharmacy with psychotropic meds. Pending placement at [facility]. [BM] Sun Apr 05, 2025 0730 No acute needs during my shift. Patient became agitated and wanted to leave the department multiple times, was verbally redirected and as needed anxiety medications administered. Continues to await placement at [facility]. Will likely be in our ED until 04/07 due to holiday weekend. Patient's care was handed over to the oncoming provider. [EK] 0853 S/o pending behavioral health placement. Frequent falls. Possibly polypharmacy. [BM] ED Course User Index [AK] Amrita Duke MD [BM] Ac Salamanca MD [EK] Evelia Lopez MD [JL] Sebastian Buck MD [MZ] Prieto Baldwin MD Clinical Impressions as of 04/05/25926 Fall, initial encounter Closed head injury, initial encounter Neck pain Acute midline thoracic back pain Polypharmacy XR Knee 4+ Views Right ED Interpretation No acute osseous abnormality Final Result Impression: 1. No evidence of fracture. 2. Moderate tricompartmental arthritic change. Telerad HALLEY ([id number]) -------- FINAL REPORT -------- Dictated By: Berta Mock Dictated Date: 04/01/2025 09:13 ET Assigned Physician: Berta Mock Reviewed and Electronically Signed By: Berta Mock Signed Date: 04/01/2025 09:14 ET Workstation ID: [id number] Transcribed By: Self Edit Transcribed Date: 04/01/2025 09:[address] Head wo Contrast Final Result No acute intracranial abnormality. This document has been electronically signed by: Radhames Hinds MD on 04/01/2025 03:28:45 CT Cervical Spine wo Contrast Final Result No evidence of cervical spine injury. This document has been electronically signed by: Radhames Hinds MD on 04/01/2025 03:26:31 CT Thoracic Spine wo Contrast Final Result No evidence of thoracic spine injury. This document has been electronically signed by: Radhames Hinds MD on 04/01/2025 03:26:49 Labs Reviewed CULTURE URINE - Abnormal Result Value Culture, Urine 10,000-49,000 CFU/mL Proteus mirabilis (*) Narrative: Additional colony types present in insignificant amounts. BASIC METABOLIC PANEL - Abnormal Sodium 136 Potassium 4.4 Chloride 105 CO2 28 Anion Gap 3 Glucose 99 BUN 20 Creatinine 1.07 eGFR 59 (*) BUN/Creatinine Ratio 18.7 Calcium 9.4 CBC WITH AUTO DIFFERENTIAL - Abnormal WBC 13.9 (*) RBC 4.70 Hemoglobin 14.7 Hematocrit 44.9 MCV 95.9 MCH 31.4 MCHC 32.7 RDW 13.3 Platelets 372 MPV 10.0 NRBC 0.0 NRBC Absolute 0.00 Neutrophils Relative 75.4 Lymphocytes Relative 14.5 Monocytes Relative 8.4 Eosinophils Relative 0.8 Basophils Relative 0.5 Immature Granulocytes Relative 0.4 Neutrophils Absolute 10.49 (*) Lymphocytes Absolute 2.01 Monocytes Absolute 1.17 (*) Eosinophils Absolute 0.11 Basophils Absolute 0.07 Immature Granulocytes Absolute 0.06 (*) URINALYSIS WITH REFLEX MICROSCOPIC AND CULTURE - Abnormal Specific [place] Urine 1.024 pH, Urine 7.0 Leukocytes, Urine Small (*) Nitrite, Urine Negative Protein, Urine Trace Glucose, Urine Negative Ketones, Urine Trace (*) Urobilinogen, Urine 1.0 Bilirubin, Urine Negative Blood, Urine Small (*) RBC, Urine 37.9 (*) WBC, Urine 2.9 Squamous Epithelial, Urine 79 (*) Bacteria, Urine Negative Hyaline Casts, Urine 2.0 POCT GLUCOSE, BLOOD - Abnormal Glucose POCT 110 (*) MAGNESIUM - Normal Magnesium 1.9 POCT GLUCOSE, BLOOD - Normal Glucose POCT 89 CBC AND DIFFERENTIAL Narrative: The following orders were created for panel order CBC and differential. Procedure Abnormality Status --------- ------ CBC auto differential[[id number]] Abnormal Final result Please view results for these tests on the individual orders. URINALYSIS WITH REFLEX MICROSCOPIC AND CULTURE Narrative: The following orders were created for panel order Urinalysis with reflex microscopic and culture. Procedure Abnormality Status --------- ------ Urinalysis with reflex ...[[id number]] Abnormal Final result Fernandez urine culture tube[[id number]] Final result Please view results for these tests on the individual orders. POCT GLUCOSE, BLOOD Clinical Impression(s): Final diagnoses: [W19.XXXA] Fall, initial encounter [S09.90XA] Closed head injury, initial encounter [M54.2] Neck pain [M54.6] Acute midline thoracic back pain [Z79.899] Polypharmacy Transfer to Another Facility Previous Medications ALBUTEROL HFA (PROAIR HFA ; PROVENTIL HFA ; VENTOLIN HFA) 90 MCG/ACTUATION INHALER Inhale 2 puffs by mouth every 6 (six) hours if needed for wheezing or shortness of breath. APIXABAN (ELIQUIS) 5 MG TABLET Take 1 tablet (5 mg total) by mouth 2 (two) times a day. ASPIRIN 81 MG CHEWABLE TABLET Chew 1 tablet (81 mg total) at bedtime. 1 tab chewed in the mouth daily ATORVASTATIN (LIPITOR) 40 MG TABLET Take 1 tablet (40 mg total) by mouth at bedtime. BUMETANIDE (BUMEX) 2 MG TABLET Take 1 tablet (2 mg total) by mouth 3 (three) times a week. Sunday, Sunday, Sunday. BUPROPION XL (WELLBUTRIN XL) 150 MG 24 HR TABLET Take 1 tablet (150 mg total) by mouth 1 (one) timeeach day in the morning. Do not crush, chew, or split. To total 450 mg daily. BUPROPION XL (WELLBUTRIN XL) 300 MG 24 HR TABLET Take 1 tablet (300 mg total) by mouth 1 (one) timeeach day in the morning. Do not crush, chew, or split. CAPSAICIN (ZOSTRIX) 0.025 % CREAM Apply topically 4 (four) times a day if needed for mild pain. ESTRADIOL (ESTRACE) 0.01 % (0.1 MG/GRAM) VAGINAL CREAM Insert 2 g into the vagina 2 (two) times a week. 0.5 applicatorful as directed 2 times per week FAMOTIDINE (PEPCID) 40 MG TABLET Take 1 tablet (40 mg total) by mouth at bedtime. FERROUS SULFATE 325 MG (65 MG IRON) EC TABLET Take 1 tablet (325 mg total) by mouth 1 (one) time each day with breakfast. Do not crush, chew, or split. FLUOXETINE (PROZAC) 40 MG CAPSULE Take 1 capsule (40 mg total) by mouth 1 (one) time each day. [id number] (TRELEGY ELLIPTA) 100-62.5-25 MCG INHALER Inhale 1 puff (100 mcg total) by mouth 1 (one) time each day. Rinse mouth with water after use to reduce aftertaste and incidence of candidiasis. Do not swallow. HYDROXYZINE HCL (ATARAX) 25 MG TABLET Take 1 tablet (25 mg total) by mouth 3 (three) times a day. IPRATROPIUM-ALBUTEROL (DUONEB) 0.5-2.5 MG/3 ML NEBULIZER SOLUTION Take 3 mL by nebulization 3 (three) times a day if needed for wheezing. LORAZEPAM (ATIVAN) 1 MG TABLET Take 1 tablet (1 mg total) by mouth every 8 (eight) hours. Max DailyAmount: 3 mg METHENAMINE HIPPURATE (HIPREX) 1 GRAM TABLET Take 1 tablet (1 g total) by mouth 1 (one) time each day in the morning. 1 tab by mouth every morning METOPROLOL SUCCINATE (TOPROL-XL) 25 MG 24 HR TABLET Take 1 tablet (25 mg total) by mouth 1 (one) time each day. Do not crush or chew. OXCARBAZEPINE (TRILEPTAL) 300 MG TABLET Take 2 tablets (600 mg total) by mouth 2 (two) times a day. POTASSIUM CHLORIDE (MICRO-K) 10 MEQ CR CAPSULE Take 1 capsule (10 mEq total) by mouth 2 (two) timesa day. PRAZOSIN (MINIPRESS) 1 MG CAPSULE Take 3 capsules (3 mg total) by mouth at bedtime. PREGABALIN (LYRICA) 200 MG CAPSULE Take 1 capsule (200 mg total) by mouth 2 (two) times a day. Max Daily Amount: 400 mg QUETIAPINE (SEROQUEL) 400 MG TABLET Take 1 tablet (400 mg total) by mouth at bedtime. Center ([facility]) SENNA (SENNA LAX) 8.6 MG TABLET Take 2 tablets (17.2 mg total) by mouth 1 (one) time each day. SODIUM,POTASSIUM,MAG SULFATES (SUPREP BOWEL PREP KIT) 17.5-3.13-1.6 GRAM RECON SOLN BOWEL PREP KIT ORAL SOLUTION Take 177ML by mouth for 2 doses. SEE INSTRUCTIONS PROVIDED BY OFFICE. TRAZODONE (DESYREL) 50 MG TABLET Take 0.5 tablets (25 mg total) by mouth every 8 (eight) hours. ED Medication Administration from 03/31/2025 2140 to 04/03/2025 210 Date/Time Order Dose Route Action Action by 04/01/2025 0120 EDT acetaminophen (TYLENOL) tablet 1,000 mg 1,000 mg oral Given Tate, N 04/01/2025 0849 EDT bumetanide (BUMEX) tablet 2 mg 2 mg oral Given Jass, R 04/01/2025 0847 EDT buPROPion XL (WELLBUTRIN XL) 24 hr tablet 300 mg 300 mg oral Given Benson, R 04/02/2025 0847 EDT buPROPion XL (WELLBUTRIN XL) 24 hr tablet 300 mg 300 mg oral Given Sokolov, S 04/03/2025 0847 EDT buPROPion XL (WELLBUTRIN XL) 24 hr tablet 300 mg 300 mg oral Given Vat Washer, K 04/01/2025 0849 EDT FLUoxetine (PROzac) capsule 40 mg 40 mg oral Given Jass, R 04/02/2025 0847 EDT FLUoxetine (PROzac) capsule 40 mg 40 mg oral Given Sokolov, S 04/03/2025 0846 EDT FLUoxetine (PROzac) capsule 40 mg 40 mg oral Given Vat Washer, K 04/01/2025 0427 EDT LORazepam (ATIVAN) tablet 1 mg 1 mg oral Given Tate, N 04/01/2025 1406 EDT LORazepam (ATIVAN) tablet 1 mg 1 mg oral Given Angulo, L 04/02/2025 2122 EDT LORazepam (ATIVAN) tablet 1 mg 1 mg oral Given [facility], M 04/03/2025 1425 EDT LORazepam (ATIVAN) tablet 1 mg 1 mg oral Given Vat Washer, K 04/01/2025 1406 EDT methenamine hippurate (HIPREX) tablet 1 g 1 g oral Given Angulo, L 04/02/2025 0854 EDT methenamine hippurate (HIPREX) tablet 1 g 1 g oral Given Sokolov, S 04/03/2025 0848 EDT methenamine hippurate (HIPREX) tablet 1 g 1 g oral Given Vat Washer, K 04/01/2025 0850 EDT metoprolol succinate (TOPROL-XL) 24 Hour tablet 25 mg 25 mg oral Given Jass, R 04/02/2025 0847 EDT metoprolol succinate (TOPROL-XL) 24 Hour tablet 25 mg 25 mg oral Given Sokolov,S 04/03/2025 0847 EDT metoprolol succinate (TOPROL-XL) 24 Hour tablet 25 mg 25 mg oral Given Vat Washer, K 04/01/2025 0847 EDT OXcarbazepine (TRILEPTAL) tablet 600 mg 600 mg oral Given Benson, R 04/01/20252015 EDT OXcarbazepine (TRILEPTAL) tablet 600 mg 600 mg oral Given Teja, F 04/02/2025 0847 EDT OXcarbazepine (TRILEPTAL) tablet 600 mg 600 mg oral Given Sokolov, S 04/02/20252114 EDT OXcarbazepine (TRILEPTAL) tablet 600 mg 600 mg oral Given Lapalm, M 04/03/2025 0847 EDT OXcarbazepine (TRILEPTAL) tablet 600 mg 600 mg oral Given Vat Washer, K 04/03/20252019 EDT OXcarbazepine (TRILEPTAL) tablet 600 mg 600 mg oral Given Saykin, S 04/01/2025 0846 EDT pregabalin (LYRICA) capsule 200 mg 200 mg oral Not Given Benson, R 04/01/20252015 EDT pregabalin (LYRICA) capsule 200 mg 200 mg oral Given Teja, F 04/02/2025 0847 EDT pregabalin (LYRICA) capsule 200 mg 200 mg oral Given Sokolov, S 04/02/20252115 EDT pregabalin (LYRICA) capsule 200 mg 200 mg oral Given Lapalm, M 04/03/2025 0846 EDT pregabalin (LYRICA) capsule 200 mg 200 mg oral Given Vat Washer, K 04/03/20252019 EDT pregabalin (LYRICA) capsule 200 mg 200 mg oral Given Saykin, S 04/01/2025 0846 EDT potassium chloride (KLOR-CON M10) CR tablet 10 mEq 10 mEq oral Given Benson, R 04/01/20252014 EDT potassium chloride (KLOR-CON M10) CR tablet 10 mEq 10 mEq oral Given Teja, F 04/02/2025 0847 EDT potassium chloride (KLOR-CON M10) CR tablet 10 mEq 10 mEq oral Given Sokolov, S 04/01/2025 0847 EDT apixaban (ELIQUIS) tablet 5 mg 5 mg oral Given Benson, R 04/01/20252015 EDT apixaban (ELIQUIS) tablet 5 mg 5 mg oral Given Teja, F 04/02/2025 0847 EDT apixaban (ELIQUIS) tablet 5 mg 5 mg oral Given Sokolov, S 04/02/20252117 EDT apixaban (ELIQUIS) tablet 5 mg 5 mg oral Given Lapalm, M 04/03/2025 0847 EDT apixaban (ELIQUIS) tablet 5 mg 5 mg oral Given Vat Washer, K 04/03/20252019 EDT apixaban (ELIQUIS) tablet 5 mg 5 mg oral Given Saykin, S 04/01/20252014 EDT prazosin (MINIPRESS) capsule 3 mg 3 mg oral Given Teja, F 04/01/20252015 EDT QUEtiapine (SEROquel) tablet 400 mg 400 mg oral Given Teja, F 04/02/20252116 EDT QUEtiapine (SEROquel) tablet 400 mg 400 mg oral Given Lapalm, M 04/03/20252019 EDT QUEtiapine (SEROquel) tablet 400 mg 400 mg oral Given Saykin, S 04/02/20252117 EDT prazosin (MINIPRESS) capsule 2 mg 2 mg oral Given Lapalm, M 04/03/20252019 EDT prazosin (MINIPRESS) capsule 2 mg 2 mg oral Given Saykin, S 04/02/2025 1823 EDT acetaminophen (TYLENOL) tablet 500 mg 500 mg oral Given Petschke, M 04/03/20252019 EDT acetaminophen (TYLENOL) tablet 500 mg 500 mg oral Given Saykin, S * YEYO Sandoval - 04/03/2025 5:21 PM EDT Social Work consult received relative to disposition--detention facility and [facility] consideration. Accepting facility, [facility] liaison reports unable to complete [facility] for social work program coordinator at facility is not present for submission. This television writer forwarded message via [employer] to liaison inquiring about facilities ability to complete/submit to [facility] in am requesting provisional emergency exemption. To follow in am. ED nursing updated relative to delay. * Lesa James RN - 04/03/2025 2:49 PM EDT Patient declined by [facility]. Request from Kaitlynn Ramos to update liaison from [facility] to call Jennifer for auth. Patient and provider updated. * Lesa James RN - 04/03/2025 1:46 PM EDT Release of psychiatric medical record form signed by patient. Lucila and her daughter updated on potential discharge plan which includes [facility] first choice and [facility] second choice per Kaitlynn Ramos. * Amrita Duke MD - 04/03/2025 9:13 AM EDT Patient received in signout at change of shift pending facility placement. Multiple attempts throughout the day between myself, the patient's outpatient physician and case management to attempt to find appropriate placement for this patient. Initial plan was for behavioral health facility as the patient is on multiple psychotropic medications and that could be causing her weakness. However they declined due to her needs. Case management now working on alternate facility possibilities. ED Course as of 04/06/25 0222 Tue Mar 31, 2025 2240 EKG 2210 shows normal sinus rhythm with a rate of 73, normal axis, no STEMI. QTc 480. No priorfor comparison [EK] Wed Apr 01, [address] imaging and XR knee negative. [EK] 0333 Patient clear for PT eval, discharge planning [EK] 0416 Home meds ordered [EK] 1740 Patient signed out to me pending PT evaluation for placement for frequent falls [MZ] 2310 Received in signout. Patient awaiting safe discharge planning, was recommended to detention facility by PT. Per nursing note, patient becomes agitated and wants to leave, we are to call her daughters to have them come pick her up. [EK] Andressa Apr 02, 2025 0653 No acute needs during my shift. Patient's care was handed over to the oncoming provider. [EK] 2114 Received in signout. Continues to await ELIZABETH. [EK] Fri Apr 03, 2025 0502 No acute needs during my shift. Patient's care was handed over to the oncoming provider. [EK] 1348 Patient bed placement still in progress. Patient may be possibly referred for placement in psychiatric facility to stabilize her medication dosing/avoid over medication [AK] 1406 After discussion with consultants, we are referring the patient to [facility] for medication management. Patient is having recurrent falls. These may be related toovermedication/psychotropic medication dosing. Therefore the patient would benefit for medication ma nagement/stabilization/adjustments in a specialized facility. The patient has been medically cleared/determined medically safe for departure from the emergency department. Case management assisting in transfer planning. [AK] 2227 Received pt in signout, no issues during my shift, awaiting placement due to psyche issues andweaknesss will likely be here over weekend. [JL] Sat Apr 04, 2025 0740 S/o 64 you female with frequent falls. Using a walker, PT eval/CM. Concern for polypharmacy with psychotropic meds. Pending placement at [facility]. [BM] Sun Apr 05, 2025 0730 No acute needs during my shift. Patient became agitated and wanted to leave the department multiple times, was verbally redirected and as needed anxiety medications administered. [facility] Will likely be in our ED until 04/07 due to holiday weekend. Patient's care was handed over to the oncoming provider. [EK] 0853 S/o pending behavioral health placement. Frequent falls. Possibly polypharmacy. [BM] Mon Apr 06, 2025 0221 Patient received in signout pending placement. Initially declined for psychiatric facility placement and declined from short-term rehab for prior psychiatric history. Patient with frequent falls and generalized weakness. Now having worsening delirium. Patient has not been sleeping well/overstimulated in ED. Placed in more peaceful room and now sleeping comfortably. No distress. Await social work assistance for placement. [AK] ED Course User Index [AK] Amrita Duke MD [BM] Ac Salamanca MD [EK] Evelia Lopez MD [JL] Sebastian Buck MD [MZ] Prieto Baldwin MD Clinical Impressions as of 04/06/25 0222 Fall, initial encounter Closed head injury, initial encounter Neck pain Acute midline thoracic back pain Polypharmacy Transfer to Another Facility 1. Fall, initial encounter 2. Closed head injury, initial encounter 3. Neck pain 4. Acute midline thoracic back pain 5. Polypharmacy Procedures * Evelia Lopez MD - 04/02/2025 10:12 PM EDT Lucila Cruz This patient's care was signed out to me by the offgoing provider. Please see her/his note for further details regarding initial presentation, history of present illness, physical exam, and medical decision making. At time of signout, the following was pending: ED Course as of 04/05/25 0927 Tue Mar 31, 2025 2240 EKG 2210 shows normal sinus rhythm with a rate of 73, normal axis, no STEMI. QTc 480. No priorfor comparison [EK] Wed Apr 01, [address] imaging and XR knee negative. [EK] 0333 Patient clear for PT eval, discharge planning [EK] 0416 Home meds ordered [EK] 1740 Patient signed out to me pending PT evaluation for placement for frequent falls [MZ] 2310 Received in signout. Patient awaiting safe discharge planning, was recommended to detention facility by PT. Per nursing note, patient becomes agitated and wants to leave, we are to call her daughters to have them come pick her up. [EK] Andressa Apr 02, 2025 0653 No acute needs during my shift. Patient's care was handed over to the oncoming provider. [EK] 2114 Received in signout. Continues to await ELIZABETH. [EK] Fri Apr 03, 2025 0502 No acute needs during my shift. Patient's care was handed over to the oncoming provider. [EK] 1348 Patient bed placement still in progress. Patient may be possibly referred for placement in psychiatric facility to stabilize her medication dosing/avoid over medication [AK] 1406 After discussion with consultants, we are referring the patient to [facility] for medication management. Patient is having recurrent falls. These may be related toovermedication/psychotropic medication dosing. Therefore the patient would benefit for medication ma nagement/stabilization/adjustments in a specialized facility. The patient has been medically cleared/determined medically safe for departure from the emergency department. Case management assisting in transfer planning. [AK] 2227 Received pt in signout, no issues during my shift, awaiting placement due to psyche issues andweaknesss will likely be here over weekend. [JL] Sat Apr 04, 2025 0740 S/o 64 you female with frequent falls. Using a walker, PT eval/CM. Concern for polypharmacy with psychotropic meds. Pending placement at [facility]. [BM] Sun Apr 05, 2025 0730 No acute needs during my shift. Patient became agitated and wanted to leave the department multiple times, was verbally redirected and as needed anxiety medications administered. Continues to await placement at [facility]. Will likely be in our ED until 04/07 due to holiday weekend. Patient's care was handed over to the oncoming provider. [EK] 0853 S/o pending behavioral health placement. Frequent falls. Possibly polypharmacy. [BM] ED Course User Index [AK] Amrita Duke MD [BM] Ac Salamanca MD [EK] Evelia Lopez MD [JL] Sebastian Buck MD [MZ] Prieto Baldwin MD Clinical Impressions as of 04/05/25 0927 Fall, initial encounter Closed head injury, initial encounter Neck pain Acute midline thoracic back pain Polypharmacy XR Knee 4+ Views Right ED Interpretation No acute osseous abnormality Final Result Impression: 1. No evidence of fracture. 2. Moderate tricompartmental arthritic change. Telerad HALLEY ([id number]) -------- FINAL REPORT -------- Dictated By: Berta Mock Dictated Date: 04/01/2025 09:13 ET Assigned Physician: Berta Mock Reviewed and Electronically Signed By: Berta Mock Signed Date: 04/01/2025 09:14 ET Workstation ID: [id number] Transcribed By: Self Edit Transcribed Date: 04/01/2025 09:[address] Head wo Contrast Final Result No acute intracranial abnormality. This document has been electronically signed by: Radhames Hinds MD on 04/01/2025 03:28:45 CT Cervical Spine wo Contrast Final Result No evidence of cervical spine injury. This document has been electronically signed by: Radhames Hinds MD on 04/01/2025 03:26:31 CT Thoracic Spine wo Contrast Final Result No evidence of thoracic spine injury. This document has been electronically signed by: Radhames Hinds MD on 04/01/2025 03:26:49 Labs Reviewed CULTURE URINE - Abnormal Result Value Culture, Urine 10,000-49,000 CFU/mL Proteus species (*) Narrative: Additional colony types present in insignificant amounts. BASIC METABOLIC PANEL - Abnormal Sodium 136 Potassium 4.4 Chloride 105 CO2 28 Anion Gap 3 Glucose 99 BUN 20 Creatinine 1.07 eGFR 59 (*) BUN/Creatinine Ratio 18.7 Calcium 9.4 CBC WITH AUTO DIFFERENTIAL - Abnormal WBC 13.9 (*) RBC 4.70 Hemoglobin 14.7 Hematocrit 44.9 MCV 95.9 MCH 31.4 MCHC 32.7 RDW 13.3 Platelets 372 MPV 10.0 NRBC 0.0 NRBC Absolute 0.00 Neutrophils Relative 75.4 Lymphocytes Relative 14.5 Monocytes Relative 8.4 Eosinophils Relative 0.8 Basophils Relative 0.5 Immature Granulocytes Relative 0.4 Neutrophils Absolute 10.49 (*) Lymphocytes Absolute 2.01 Monocytes Absolute 1.17 (*) Eosinophils Absolute 0.11 Basophils Absolute 0.07 Immature Granulocytes Absolute 0.06 (*) URINALYSIS WITH REFLEX MICROSCOPIC AND CULTURE - Abnormal Specific [place] Urine 1.024 pH, Urine 7.0 Leukocytes, Urine Small (*) Nitrite, Urine Negative Protein, Urine Trace Glucose, Urine Negative Ketones, Urine Trace (*) Urobilinogen, Urine 1.0 Bilirubin, Urine Negative Blood, Urine Small (*) RBC, Urine 37.9 (*) WBC, Urine 2.9 Squamous Epithelial, Urine 79 (*) Bacteria, Urine Negative Hyaline Casts, Urine 2.0 POCT GLUCOSE, BLOOD - Abnormal Glucose POCT 110 (*) MAGNESIUM - Normal Magnesium 1.9 POCT GLUCOSE, BLOOD - Normal Glucose POCT 89 CBC AND DIFFERENTIAL Narrative: The following orders were created for panel order CBC and differential. Procedure Abnormality Status --------- ------ CBC auto differential[[id number]] Abnormal Final result Please view results for these tests on the individual orders. URINALYSIS WITH REFLEX MICROSCOPIC AND CULTURE Narrative: The following orders were created for panel order Urinalysis with reflex microscopic and culture. Procedure Abnormality Status --------- ------ Urinalysis with reflex ...[[id number]] Abnormal Final result Fernandez urine culture tube[[id number]] Final result Please view results for these tests on the individual orders. POCT GLUCOSE, BLOOD Clinical Impression(s): Final diagnoses: [W19.XXXA] Fall, initial encounter [S09.90XA] Closed head injury, initial encounter [M54.2] Neck pain [M54.6] Acute midline thoracic back pain [Z79.899] Polypharmacy Transfer to Another Facility Previous Medications ALBUTEROL HFA (PROAIR HFA ; PROVENTIL HFA ; VENTOLIN HFA) 90 MCG/ACTUATION INHALER Inhale 2 puffs by mouth every 6 (six) hours if needed for wheezing or shortness of breath. APIXABAN (ELIQUIS) 5 MG TABLET Take 1 tablet (5 mg total) by mouth 2 (two) times a day. ASPIRIN 81 MG CHEWABLE TABLET Chew 1 tablet (81 mg total) at bedtime. 1 tab chewed in the mouth daily ATORVASTATIN (LIPITOR) 40 MG TABLET Take 1 tablet (40 mg total) by mouth at bedtime. BUMETANIDE (BUMEX) 2 MG TABLET Take 1 tablet (2 mg total) by mouth 3 (three) times a week. Sunday, Sunday, Sunday. BUPROPION XL (WELLBUTRIN XL) 150 MG 24 HR TABLET Take 1 tablet (150 mg total) by mouth 1 (one) timeeach day in the morning. Do not crush, chew, or split. To total 450 mg daily. BUPROPION XL (WELLBUTRIN XL) 300 MG 24 HR TABLET Take 1 tablet (300 mg total) by mouth 1 (one) timeeach day in the morning. Do not crush, chew, or split. CAPSAICIN (ZOSTRIX) 0.025 % CREAM Apply topically 4 (four) times a day if needed for mild pain. ESTRADIOL (ESTRACE) 0.01 % (0.1 MG/GRAM) VAGINAL CREAM Insert 2 g into the vagina 2 (two) times a week. 0.5 applicatorful as directed 2 times per week FAMOTIDINE (PEPCID) 40 MG TABLET Take 1 tablet (40 mg total) by mouth at bedtime. FERROUS SULFATE 325 MG (65 MG IRON) EC TABLET Take 1 tablet (325 mg total) by mouth 1 (one) time each day with breakfast. Do not crush, chew, or split. FLUOXETINE (PROZAC) 40 MG CAPSULE Take 1 capsule (40 mg total) by mouth 1 (one) time each day. [id number] (TRELEGY ELLIPTA) 100-62.5-25 MCG INHALER Inhale 1 puff (100 mcg total) by mouth 1 (one) time each day. Rinse mouth with water after use to reduce aftertaste and incidence of candidiasis. Do not swallow. HYDROXYZINE HCL (ATARAX) 25 MG TABLET Take 1 tablet (25 mg total) by mouth 3 (three) times a day. IPRATROPIUM-ALBUTEROL (DUONEB) 0.5-2.5 MG/3 ML NEBULIZER SOLUTION Take 3 mL by nebulization 3 (three) times a day if needed for wheezing. LORAZEPAM (ATIVAN) 1 MG TABLET Take 1 tablet (1 mg total) by mouth every 8 (eight) hours. Max DailyAmount: 3 mg METHENAMINE HIPPURATE (HIPREX) 1 GRAM TABLET Take 1 tablet (1 g total) by mouth 1 (one) time each day in the morning. 1 tab by mouth every morning METOPROLOL SUCCINATE (TOPROL-XL) 25 MG 24 HR TABLET Take 1 tablet (25 mg total) by mouth 1 (one) time each day. Do not crush or chew. OXCARBAZEPINE (TRILEPTAL) 300 MG TABLET Take 2 tablets (600 mg total) by mouth 2 (two) times a day. POTASSIUM CHLORIDE (MICRO-K) 10 MEQ CR CAPSULE Take 1 capsule (10 mEq total) by mouth 2 (two) timesa day. PRAZOSIN (MINIPRESS) 1 MG CAPSULE Take 3 capsules (3 mg total) by mouth at bedtime. PREGABALIN (LYRICA) 200 MG CAPSULE Take 1 capsule (200 mg total) by mouth 2 (two) times a day. Max Daily Amount: 400 mg QUETIAPINE (SEROQUEL) 400 MG TABLET Take 1 tablet (400 mg total) by mouth at bedtime. Center (Next Day Center) SENNA (SENNA LAX) 8.6 MG TABLET Take 2 tablets (17.2 mg total) by mouth 1 (one) time each day. SODIUM,POTASSIUM,MAG SULFATES (SUPREP BOWEL PREP KIT) 17.5-3.13-1.6 GRAM RECON SOLN BOWEL PREP KIT ORAL SOLUTION Take 177ML by mouth for 2 doses. SEE INSTRUCTIONS PROVIDED BY OFFICE. TRAZODONE (DESYREL) 50 MG TABLET Take 0.5 tablets (25 mg total) by mouth every 8 (eight) hours. ED Medication Administration from 03/31/2025 2140 to 04/03/2025 0748 Date/Time Order Dose Route Action Action by 04/01/2025 0120 EDT acetaminophen (TYLENOL) tablet 1,000 mg 1,000 mg oral Given Tate, N 04/01/2025 0849 EDT bumetanide (BUMEX) tablet 2 mg 2 mg oral Given Jass, R 04/01/2025 0847 EDT buPROPion XL (WELLBUTRIN XL) 24 hr tablet 300 mg 300 mg oral Given Benson, R 04/02/2025 0847 EDT buPROPion XL (WELLBUTRIN XL) 24 hr tablet 300 mg 300 mg oral Given Sokolov, S 04/01/2025 0849 EDT FLUoxetine (PROzac) capsule 40 mg 40 mg oral Given Jass, R 04/02/2025 0847 EDT FLUoxetine (PROzac) capsule 40 mg 40 mg oral Given Sokolov, S 04/01/2025 0427 EDT LORazepam (ATIVAN) tablet 1 mg 1 mg oral Given Tate, N 04/01/2025 1406 EDT LORazepam (ATIVAN) tablet 1 mg 1 mg oral Given Angulo, L 04/02/2025 2122 EDT LORazepam (ATIVAN) tablet 1 mg 1 mg oral Given Lapa, M 04/01/2025 1406 EDT methenamine hippurate (HIPREX) tablet 1 g 1 g oral Given Angulo, L 04/02/2025 0854 EDT methenamine hippurate (HIPREX) tablet 1 g 1 g oral Given Sokolov, S 04/01/2025 0850 EDT metoprolol succinate (TOPROL-XL) 24 Hour tablet 25 mg 25 mg oral Given Jass, R 04/02/2025 0847 EDT metoprolol succinate (TOPROL-XL) 24 Hour tablet 25 mg 25 mg oral Given Sokolov,S 04/01/2025 0847 EDT OXcarbazepine (TRILEPTAL) tablet 600 mg 600 mg oral Given Benson, R 04/01/20252015 EDT OXcarbazepine (TRILEPTAL) tablet 600 mg 600 mg oral Given Teja, F 04/02/2025 0847 EDT OXcarbazepine (TRILEPTAL) tablet 600 mg 600 mg oral Given Sokolov, S 04/02/20252114 EDT OXcarbazepine (TRILEPTAL) tablet 600 mg 600 mg oral Given Lapa, M 04/01/2025 0846 EDT pregabalin (LYRICA) capsule 200 mg 200 mg oral Not Given Benson, R 04/01/20252015 EDT pregabalin (LYRICA) capsule 200 mg 200 mg oral Given Teja, F 04/02/2025 0847 EDT pregabalin (LYRICA) capsule 200 mg 200 mg oral Given Sokolov, S 04/02/20252115 EDT pregabalin (LYRICA) capsule 200 mg 200 mg oral Given Lapa, M 04/01/2025 0846 EDT potassium chloride (KLOR-CON M10) CR tablet 10 mEq 10 mEq oral Given Jass, R 04/01/20252014 EDT potassium chloride (KLOR-CON M10) CR tablet 10 mEq 10 mEq oral Given Teja, F 04/02/2025 0847 EDT potassium chloride (KLOR-CON M10) CR tablet 10 mEq 10 mEq oral Given Sokolov, S 04/01/2025 0847 EDT apixaban (ELIQUIS) tablet 5 mg 5 mg oral Given Benson, R 04/01/20252015 EDT apixaban (ELIQUIS) tablet 5 mg 5 mg oral Given Teja, F 04/02/2025 0847 EDT apixaban (ELIQUIS) tablet 5 mg 5 mg oral Given Sokolov, S 04/02/20258 EDT apixaban (ELIQUIS) tablet 5 mg 5 mg oral Given Lapalm, M 04/01/20252014 EDT prazosin (MINIPRESS) capsule 3 mg 3 mg oral Given Teja, F 04/01/20252015 EDT QUEtiapine (SEROquel) tablet 400 mg 400 mg oral Given Teja, F 04/02/20252116 EDT QUEtiapine (SEROquel) tablet 400 mg 400 mg oral Given Lapa, M 04/02/20252117 EDT prazosin (MINIPRESS) capsule 2 mg 2 mg oral Given Lapa, M 04/02/2025 182 EDT acetaminophen (TYLENOL) tablet 500 mg 500 mg oral Given Tomás, Chris * Lesa James RN - 04/02/2025 3:48 PM EDT Per conversation with Dr. San and Jennifer from [facility] request to place referrals to contracted facilities. First choice is [place] is second and last [facility]. Dr. San will do medication management in the facility based on psychiatrist recommendations. 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 Oden. Request for psychiatric consultdue to polypharmacy(see order). Dr. Munoz notified. * Gregorio Mcgregor MD - 04/02/2025 8:35 AM EDT Previous Provider: Dr. Lopez Time of Signout: 04/02 at 0800 Basic Information 64-year-old female presents with multiple falls. Patient has apparently been seen in multiple separate occasions at different hospitals for similar presentations. Workup at this time is benign. Patient has been approved for home health services. Pending discharge in the morning. [facility] Patient waiting overnight pending home health services in the morning. 1011: Spoke with Dr. 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 She had been reviewing the chart. It seems that the patient is likely overmedicated due to recent psychiatric stay, which may be thereason she is falling frequently. The fiberglass ski maker states that she was able to decrease some of hermedications previously, however became suicidal as a result. Her primary care is concerned the patient needs to go to a psychiatric facility for medical detox. Requesting the patient be transferred to [facility] for psychiatric detox. Referring fiberglass ski maker to our case management for further discussion. Patient initially declined for transfer to psychiatric facility. Pending further evaluation. Disposition Disposition/Signout: Signed out to Dr. Swift Time: 04/02 at 1446 * Evelia Lopez MD - 04/01/2025 11:11 PM EDT Lucila Cruz This patient's care was signed out to me by the offgoing provider. Please see her/his note for further details regarding initial presentation, history of present illness, physical exam, and medical decision making. At time of signout, the following was pending: ED Course as of 04/05/25 0927 Tue Mar 31, 2025 2240 EKG 2210 shows normal sinus rhythm with a rate of 73, normal axis, no STEMI. QTc 480. No priorfor comparison [EK] Wed Apr 01, [address] imaging and XR knee negative. [EK] 0333 Patient clear for PT eval, discharge planning [EK] 0416 Home meds ordered [EK] 1740 Patient signed out to me pending PT evaluation for placement for frequent falls [MZ] 2310 Received in signout. Patient awaiting safe discharge planning, was recommended to detention facility by PT. Per nursing note, patient becomes agitated and wants to leave, we are to call her daughters to have them come pick her up. [EK] Andressa Apr 02, 2025 0653 No acute needs during my shift. Patient's care was handed over to the oncoming provider. [EK] 2114 Received in signout. Continues to await ELIZABETH. [EK] Fri Apr 03, 2025 0502 No acute needs during my shift. Patient's care was handed over to the oncoming provider. [EK] 1348 Patient bed placement still in progress. Patient may be possibly referred for placement in psychiatric facility to stabilize her medication dosing/avoid over medication [AK] 1406 After discussion with consultants, we are referring the patient to [facility] for medication management. Patient is having recurrent falls. These may be related toovermedication/psychotropic medication dosing. Therefore the patient would benefit for medication ma nagement/stabilization/adjustments in a specialized facility. The patient has been medically cleared/determined medically safe for departure from the emergency department. Case management assisting in transfer planning. [AK] 2227 Received pt in signout, no issues during my shift, awaiting placement due to psyche issues andweaknesss will likely be here over weekend. [JL] Sat Apr 04, 2025 0740 S/o 64 you female with frequent falls. Using a walker, PT eval/CM. Concern for polypharmacy with psychotropic meds. Pending [facility] at [facility]. [BM] Shania Apr 05, 2025 0730 No acute needs during my shift. Patient became agitated and wanted to leave the department multiple times, was verbally redirected and as needed anxiety medications administered. [facility] Will likely be in our ED until 04/07 due to holiday weekend. Patient's care was handed over to the oncoming provider. [EK] 0853 S/o pending behavioral health placement. Frequent falls. Possibly polypharmacy. [BM] ED Course User Index [AK] Amrita Duke MD [BM] Ac Salamanca MD [EK] Evelia Lopez MD [JL] Sebastian Buck MD [MZ] Prieto Baldwin MD Clinical Impressions as of 04/05/25 09 Fall, initial encounter Closed head injury, initial encounter Neck pain Acute midline thoracic back pain Polypharmacy XR Knee 4+ Views Right ED Interpretation No acute osseous abnormality Final Result Impression: 1. No evidence of fracture. 2. Moderate tricompartmental arthritic change. Telerad HALLEY ([id number]) -------- FINAL REPORT -------- Dictated By: Berta Mock Dictated Date: 04/01/2025 09:13 ET Assigned Physician: Berta Mock Reviewed and Electronically Signed By: Berta Mock Signed Date: 04/01/2025 09:14 ET Workstation ID: [id number] Transcribed By: Self Edit Transcribed Date: 04/01/2025 09:[address] Head wo Contrast Final Result No acute intracranial abnormality. This document has been electronically signed by: Radhames Hinds MD on 04/01/2025 03:28:45 CT Cervical Spine wo Contrast Final Result No evidence of cervical spine injury. This document has been electronically signed by: Radhames Hinds MD on 04/01/2025 03:26:31 CT Thoracic Spine wo Contrast Final Result No evidence of thoracic spine injury. This document has been electronically signed by: Radhames Hinds MD on 04/01/2025 03:26:49 Labs Reviewed BASIC METABOLIC PANEL - Abnormal Result Value Sodium 136 Potassium 4.4 Chloride 105 CO2 28 Anion Gap 3 Glucose 99 BUN 20 Creatinine 1.07 eGFR 59 (*) BUN/Creatinine Ratio 18.7 Calcium 9.4 CBC WITH AUTO DIFFERENTIAL - Abnormal WBC 13.9 (*) RBC 4.70 Hemoglobin 14.7 Hematocrit 44.9 MCV 95.9 MCH 31.4 MCHC 32.7 RDW 13.3 Platelets 372 MPV 10.0 NRBC 0.0 NRBC Absolute 0.00 Neutrophils Relative 75.4 Lymphocytes Relative 14.5 Monocytes Relative 8.4 Eosinophils Relative 0.8 Basophils Relative 0.5 Immature Granulocytes Relative 0.4 Neutrophils Absolute 10.49 (*) Lymphocytes Absolute 2.01 Monocytes Absolute 1.17 (*) Eosinophils Absolute 0.11 Basophils Absolute 0.07 Immature Granulocytes Absolute 0.06 (*) URINALYSIS WITH REFLEX MICROSCOPIC AND CULTURE - Abnormal Specific [place] Urine 1.024 pH, Urine 7.0 Leukocytes, Urine Small (*) Nitrite, Urine Negative Protein, Urine Trace Glucose, Urine Negative Ketones, Urine Trace (*) Urobilinogen, Urine 1.0 Bilirubin, Urine Negative Blood, Urine Small (*) RBC, Urine 37.9 (*) WBC, Urine 2.9 Squamous Epithelial, Urine 79 (*) Bacteria, Urine Negative Hyaline Casts, Urine 2.0 POCT GLUCOSE, BLOOD - Abnormal Glucose POCT 110 (*) MAGNESIUM - Normal Magnesium 1.9 POCT GLUCOSE, BLOOD - Normal Glucose POCT 89 CULTURE URINE CBC AND DIFFERENTIAL Narrative: The following orders were created for panel order CBC and differential. Procedure Abnormality Status --------- ------ CBC auto differential[[id number]] Abnormal Final result Please view results for these tests on the individual orders. URINALYSIS WITH REFLEX MICROSCOPIC AND CULTURE Narrative: The following orders were created for panel order Urinalysis with reflex microscopic and culture. Procedure Abnormality Status --------- ------ Urinalysis with reflex ...[[id number]] Abnormal Final result Fernandez urine culture tube[[id number]] Final result Please view results for these tests on the individual orders. POCT GLUCOSE, BLOOD Clinical Impression(s): Final diagnoses: [W19.XXXA] Fall, initial encounter [S09.90XA] Closed head injury, initial encounter [M54.2] Neck pain [M54.6] Acute midline thoracic back pain Data Unavailable Previous Medications ALBUTEROL HFA (PROAIR HFA ; PROVENTIL HFA ; VENTOLIN HFA) 90 MCG/ACTUATION INHALER Inhale 2 puffs by mouth every 6 (six) hours if needed for wheezing or shortness of breath. APIXABAN (ELIQUIS) 5 MG TABLET Take 1 tablet (5 mg total) by mouth 2 (two) times a day. ASPIRIN 81 MG CHEWABLE TABLET Chew 1 tablet (81 mg total) at bedtime. 1 tab chewed in the mouth daily ATORVASTATIN (LIPITOR) 40 MG TABLET Take 1 tablet (40 mg total) by mouth at bedtime. BUMETANIDE (BUMEX) 2 MG TABLET Take 1 tablet (2 mg total) by mouth 3 (three) times a week. Sunday, Sunday, Sunday. BUPROPION XL (WELLBUTRIN XL) 150 MG 24 HR TABLET Take 1 tablet (150 mg total) by mouth 1 (one) timeeach day in the morning. Do not crush, chew, or split. To total 450 mg daily. BUPROPION XL (WELLBUTRIN XL) 300 MG 24 HR TABLET Take 1 tablet (300 mg total) by mouth 1 (one) timeeach day in the morning. Do not crush, chew, or split. CAPSAICIN (ZOSTRIX) 0.025 % CREAM Apply topically 4 (four) times a day if needed for mild pain. ESTRADIOL (ESTRACE) 0.01 % (0.1 MG/GRAM) VAGINAL CREAM Insert 2 g into the vagina 2 (two) times a week. 0.5 applicatorful as directed 2 times per week FAMOTIDINE (PEPCID) 40 MG TABLET Take 1 tablet (40 mg total) by mouth at bedtime. FERROUS SULFATE 325 MG (65 MG IRON) EC TABLET Take 1 tablet (325 mg total) by mouth 1 (one) time each day with breakfast. Do not crush, chew, or split. FLUOXETINE (PROZAC) 40 MG CAPSULE Take 1 capsule (40 mg total) by mouth 1 (one) time each day. [id number] (TRELEGY ELLIPTA) 100-62.5-25 MCG INHALER Inhale 1 puff (100 mcg total) by mouth 1 (one) time each day. Rinse mouth with water after use to reduce aftertaste and incidence of candidiasis. Do not swallow. HYDROXYZINE HCL (ATARAX) 25 MG TABLET Take 1 tablet (25 mg total) by mouth 3 (three) times a day. IPRATROPIUM-ALBUTEROL (DUONEB) 0.5-2.5 MG/3 ML NEBULIZER SOLUTION Take 3 mL by nebulization 3 (three) times a day if needed for wheezing. LORAZEPAM (ATIVAN) 1 MG TABLET Take 1 tablet (1 mg total) by mouth every 8 (eight) hours. Max DailyAmount: 3 mg METHENAMINE HIPPURATE (HIPREX) 1 GRAM TABLET Take 1 tablet (1 g total) by mouth 1 (one) time each day in the morning. 1 tab by mouth every morning METOPROLOL SUCCINATE (TOPROL-XL) 25 MG 24 HR TABLET Take 1 tablet (25 mg total) by mouth 1 (one) time each day. Do not crush or chew. OXCARBAZEPINE (TRILEPTAL) 300 MG TABLET Take 2 tablets (600 mg total) by mouth 2 (two) times a day. POTASSIUM CHLORIDE (MICRO-K) 10 MEQ CR CAPSULE Take 1 capsule (10 mEq total) by mouth 2 (two) timesa day. PRAZOSIN (MINIPRESS) 1 MG CAPSULE Take 3 capsules (3 mg total) by mouth at bedtime. PREGABALIN (LYRICA) 200 MG CAPSULE Take 1 capsule (200 mg total) by mouth 2 (two) times a day. Max Daily Amount: 400 mg QUETIAPINE (SEROQUEL) 400 MG TABLET Take 1 tablet (400 mg total) by mouth at bedtime. Center ( Day Center) SENNA (SENNA LAX) 8.6 MG TABLET Take 2 tablets (17.2 mg total) by mouth 1 (one) time each day. SODIUM,POTASSIUM,MAG SULFATES (SUPREP BOWEL PREP KIT) 17.5-3.13-1.6 GRAM RECON SOLN BOWEL PREP KIT ORAL SOLUTION Take 177ML by mouth for 2 doses. SEE INSTRUCTIONS PROVIDED BY OFFICE. TRAZODONE (DESYREL) 50 MG TABLET Take 0.5 tablets (25 mg total) by mouth every 8 (eight) hours. ED Medication Administration from 03/31/2025 2140 to 04/02/2025 0711 Date/Time Order Dose Route Action Action by 04/01/2025 0120 EDT acetaminophen (TYLENOL) tablet 1,000 mg 1,000 mg oral Given Lea, N 04/01/2025 0849 EDT bumetanide (BUMEX) tablet 2 mg 2 mg oral Given Benson, R 04/01/2025 0847 EDT buPROPion XL (WELLBUTRIN XL) 24 hr tablet 300 mg 300 mg oral Given Jass, R 04/01/2025 0849 EDT FLUoxetine (PROzac) capsule 40 mg 40 mg oral Given Jass, R 04/01/2025 0427 EDT LORazepam (ATIVAN) tablet 1 mg 1 mg oral Given Lea, N 04/01/2025 1406 EDT LORazepam (ATIVAN) tablet 1 mg 1 mg oral Given Angulo, L 04/01/2025 1406 EDT methenamine hippurate (HIPREX) tablet 1 g 1 g oral Given Angulo, L 04/01/2025 0850 EDT metoprolol succinate (TOPROL-XL) 24 Hour tablet 25 mg 25 mg oral Given Jass, R 04/01/2025 0847 EDT OXcarbazepine (TRILEPTAL) tablet 600 mg 600 mg oral Given Jass, R 04/01/20252015 EDT OXcarbazepine (TRILEPTAL) tablet 600 mg 600 mg oral Given Teja, F 04/01/2025 0846 EDT pregabalin (LYRICA) capsule 200 mg 200 mg oral Not Given Jass, R 04/01/20252015 EDT pregabalin (LYRICA) capsule 200 mg 200 mg oral Given Teja, F 04/01/2025 0846 EDT potassium chloride (KLOR-CON M10) CR tablet 10 mEq 10 mEq oral Given Benson, R 04/01/20252014 EDT potassium chloride (KLOR-CON M10) CR tablet 10 mEq 10 mEq oral Given Teja, F 04/01/2025 0847 EDT apixaban (ELIQUIS) tablet 5 mg 5 mg oral Given Jass, R 04/01/20252015 EDT apixaban (ELIQUIS) tablet 5 mg 5 mg oral Given Teja, F 04/01/20252014 EDT prazosin (MINIPRESS) capsule 3 mg 3 mg oral Given Teja, F 04/01/20252015 EDT QUEtiapine (SEROquel) tablet 400 mg 400 mg oral Given Teja, F * Rafaela Encarnacion RN - 04/01/2025 4:32 PM EDT Patient's two daughters are: Jayda Márquez [phone] Rita Escudero [phone] If patient gets agitated and says she wants to leave call them. * Lesa James RN - 04/01/2025 4:08 PM EDT Per franklin with [facility] liaison patient will remain overnight as they still need to determine a safe discharge plan. Concerns that patient will fall again if sent home. * Lesa James RN - 04/01/2025 1:54 PM EDT 04/01/25 1351 Initial Transition Plan Initial Transition Plan Other(Comment) ([facility]) Back up Transition Plan Back up Transition plan [facility] Facility Discharge Planning Contact (Name, Phone #, Relationship) for DC Planning Jayda Styles daughter [phone] Living Arrangements Alone Type of Residence Private residence (first floor apartment with no stairs) Assistive Devices Toilet riser;Walker;Other (Comment);Oxygen (bars in bathroom) Support Systems Home care staff;Caregiver;Children Medication Coverage Has Med Coverage Under Insurance Plan Yes Anticipated Discharge Needs Home Health RN;Aide;PT Discipline following for SNF placement Change Management Analyst Informed Choice Informed Choice Given? Yes Patient is with [facility] and is s/p fall at home. States recently discharged from home PT but gets nursing services weekly and 1.5 hours of IMPROVEMENT NURSE services as well each week. She is not a vet and presently not needing her 02 for My COPD. PT with recommendation intensive therapy. Awaiting response with liaison as informed their head PT therapist will be coming into the hospital to review plan of care. * Melody Lucas PT - 04/01/2025 11:58 AM EDT [facility] Physical Therapy Evaluation & Treatment PT Discharge Recommendations: shelter facility placement Staff Recommendations for safe patient handlin person Corazon with gian AM-PAC 6 Clicks Scoring Form: Unable: 1 A Lot: 2 A Little: 3 None: 4 How much difficulty does the patient currently have? Turning over in bed (including adjustment of bedclothes, sheets, and blankets) [] [] [] [x] Sitting down on and standing up from a chair with arms (wheelchair, bedside commode etc [] [] [x] [] Moving from lying on back to sitting on the side of the bed [] [] [x] [] How much help from another person does the patient currently need? Moving to and from a bed to a chair ( including a wheelchair) [] [] [x] [] To walk in hospital room [] [] [x] [] Climbing 3-5 steps with a railing [x] [] [] [] Score: 17 24 score indicates the pt would benefit from STR after acute discharge Precautions Medical Precautions: Fall Risk Safety Interventions: Call estrada within reach, ID band on, Bed alarm, Side rails up x1 RUE Weight Bearing Status: Full LUE Weight Bearing Status: Full RLE Weight Bearing Status: Full LLE Weight Bearing Status: Full Fall prevention education provided including use of call light in hospital, use of appropriate assistive device, safe mobility techniques, and safety measures at home. PT Received On: 04/01/25 PT Start Time: 09 PT Stop Time: 929 PT Time Calculation (min): 30 min General Family/Caregiver Present: No Precautions Medical Precautions: Fall Risk Safety Interventions: Call estrada within reach, ID band on, Bed alarm, Side rails up x1 RUE Weight Bearing Status: Full LUE Weight Bearing Status: Full RLE Weight Bearing Status: Full LLE Weight Bearing Status: Full Cognition Overall Cognitive Status: Impaired Arousal/Alertness: Appropriate responses to stimuli Orientation Level: Oriented X4 (couldnt remember if she had MS) Hearing: Intact Vision: Intact Speech: Intact Integumentary: NT History of Present Illness: Patient is a 64 y.o. female admitted to [facility] on 03/31/2025. Problem List[1] Medical History[2] Surgical History[3] Social History Home Living Environment: Home Living Type of Home: Apartment Lives With: Alone Home Adaptive Equipment: Rollator Home Layout: One level Home Access: Elevator Prior Function Level of [place]: Independent with mobility and functional transfers Ambulation Status: Household ambulator Indoor Mobility Assistance: Independent Prior Device Use: Walker Do you drive?: No General Assessment Dressmaker Or Tailor Services Is an doctor of dental medicine used? : No 04/01/25 0900 PT Last Visit PT Received On 04/01/25 General Family/Caregiver Present No PT Time Calculation PT Start Time 0900 PT Stop Time 0930 PT Time Calculation (min) 30 min Precautions Medical Precautions Fall Risk Safety Interventions Call estrada within reach;ID band on;Bed alarm;Side rails up x1 RUE Weight Bearing Status Full LUE Weight Bearing Status Full RLE Weight Bearing Status Full LLE Weight Bearing Status Full Oxygen Therapy Oxygen Therapy None (Room air) Pain Assessment Pain Assessment No/denies pain Pain Score 0 - No pain Cognition Overall Cognitive Status Impaired Arousal/Alertness Appropriate responses to stimuli Orientation Level Oriented X4 (couldnt remember if she had MS) Home Living Type of Home Apartment Lives With Alone Home Adaptive Equipment Rollator Home Layout One level Home Access Elevator Prior Function Level of [place] Independent with mobility and functional transfers Ambulation Status Household ambulator Indoor Mobility Assistance Independent Prior Device Use Walker Do you drive? No Activity Tolerance Endurance Tolerates 10 - 20 min exercise with multiple rests Sensation Light Touch No apparent deficits Coordination Coordination Functional Static Sitting Balance Static Sitting-Level of Assistance Supervision Static Standing Balance Static Standing-Level of Assistance Contact guard Bed Mobility Bed Mobility Comments pt was sitting up EOB eating breakfast Transfers Sit to Stand Assistance Contact guard Sit to Stand Deficit Steadying;Verbal cueing;Supervision/safety awareness;Increased time to complete Toilet Transfer Assistance Contact guard Toilet Transfer Deficit Steadying;Verbal cueing;Supervision/safety awareness;Increased time to complete Transfer Comments stands with about 10-15 deg of flex in knees Ambulation Walking Assistance Contact guard;Minimum assistance Walking Deficit Steadying;Verbal cueing;Supervision/safety awareness;Increased time to complete;Assist for foot placement;Assist for trunk control;Limited endurance;LE weakness;Gait deviation Device Rolling walker Distance Ambulated (ft) 5 Comments 2 x 5 ft pt fearful of falling states she has fallen 3 x in last week and stated she was at [employer] yesterday and they said she was supposed to go to rehab but pt states they sent her home again and she fell again, amb with about 10-15 deg of flexion in B knees RUE Assessment RUE Assessment Within Functional Limits LUE Assessment LUE Assessment Within Functional Limits RLE Assessment RLE Assessment Impaired RLE Assessment Comments 3/5 LLE Assessment LLE Assessment Impaired LLE Assessment Comments 3/5 PT Assessment PT Assessment Results Decreased strength;Decreased endurance;Impaired balance;Impaired gait;Decreased mobility Prognosis Good Evaluation/Treatment Tolerance Patient limited by fatigue Comments limited by fear of falling Plan PT Discharge Recommendations shelter facility placement PT Evaluation Time Entry PT Evaluation (Moderate) Time Entry 30 Treatment performed during evaluation: None performed ADDITIONAL COMMENTS: Chart reviewed. RN clears pt for session. Pt agrees to participate and presented in bed upon PT arrival. All lines in place. Gait belt utilized throughout treatment to maximize safety. Medical precautions observed appropriately. Initiated education on the importance of PT, bed mobility safety, Transfer Safety, Ambulation Safety , Therapy Plan of Care, Home Safety, Energy Conservations strategies, and importance of OOB activity . Pt verbalized understanding. EXIT STATUS: Session ended with patient in bed, tray table and call light within reach, and RN made aware. Physical Therapy Assessment/Plan Lucila Cruz is a 64 y.o. female admitted to [facility] on 03/31/2025 for No admission diagnoses are documented for this encounter. . Pt presents with decreased BLE strength, balance deficits, decreased activity tolerance, and far below functional baseline. Pt performed bed mobility Minimal assist, Bedrail and HOB elevated, Transfers with Contact guard, FWW and ambulates Contact guard and Minimal assist with FWW 5 ft . Pt will benefit from skilled acute PT during hospital stay to improve the deficits listed above and optimize function. PT recommends shelter facility placement when medically stable for safe discharge and to optimize functional mobility and independence. Goals Education Documentation Home Exercise Program, taught by Melody Lucas PT at 04/01/2025 11:57 AM. Learner: Patient Readiness: Eager Method: Explanation, Demonstration Response: Verbalizes Understanding, Demonstrated Understanding Mobility Training, taught by Melody Lucas PT at 04/01/2025 11:57 AM. Learner: Patient Readiness: Eager Method: Explanation, Demonstration Response: Verbalizes Understanding, Demonstrated Understanding Education Comments No comments found. Melody Lucas, PT [1] Patient Active Problem List Diagnosis Paroxysmal atrial fibrillation ([facility] V24, [facility] V28) Chronic diastolic congestive heart failure ([facility] V24, [facility] V28) Hypertensive disorder Hyperlipidemia Severe obesity ([facility] V24, [facility] V28) Edentulous Constipation Recurrent UTI Atrophic vaginitis Migraine JOSEPH (obstructive sleep apnea) Complex regional pain syndrome I Tobacco use disorder Bipolar 1 disorder ([facility] V24, [facility] V28) Anxiety Gait instability Fibromyalgia Dupuytren's contracture of right hand Trigger finger Hearing loss Vocal cord dysfunction Chronic respiratory failure with hypoxia ([facility] V24, [facility] V28) Suicidal ideation Conversion disorder with attacks or seizures Chronic obstructive pulmonary disease ([facility] V24, [facility] V28) Urinary, incontinence, stress female Tendonitis of left rotator cuff Type 2 diabetes mellitus with hypoglycemia ([facility] V24, [facility] V28) Osteoarthritis of feet, bilateral Hematuria, microscopic Pain in back Plantar fascial fibromatosis DDD (degenerative disc disease), cervical Multiple nodules of lung Blood in stool Dysphagia Post-traumatic stress disorder, acute Iron deficiency anemia Abnormal mammogram Other specified disorders of bone density and structure, multiple sites Encounter for medication management Mild dementia with mood disturbance, unspecified dementia type ([facility] V24, [facility] V28) History of DVT (deep vein thrombosis) Gastroesophageal reflux disease without esophagitis Costochondritis Other chest pain [2] Past Medical History: Diagnosis Date A-fib ([facility] V24, [facility] V28) Abdominal pain 07/30/2024 CHF (congestive heart failure) ([facility] V24, [facility] V28) Chronic kidney disease COPD (chronic obstructive pulmonary disease) ([facility] V24, [facility] V28[facility] DVT of proximal leg (deep vein thrombosis) ([facility] V24, [facility] V28) History of CVA (cerebrovascular accident) History of deep vein thrombosis History of esophageal stricture History of falling History of pulmonary embolism Hyperlipidemia Hypertension Leukocytosis (leucocytosis) 01/29/2024 Migraine Oral lesion 07/30/2024 Pneumonia of right lower lobe due to infectious organism 11/21/2024 Pulmonary embolism ([facility] V24, [facility] V28) Sleep apnea Wears dentures [3] Past Surgical History: Procedure Laterality Date SECTION CHOLECYSTECTOMY COLONOSCOPY SPLENECTOMY, TOTAL STEREOTACTIC CORE BIOPSY Left TONSILLECTOMY * Gregorio Mcgregor MD - 04/01/2025 8:50 AM EDT Previous Provider: Dr. Lopez Time of Signout: 04/01 at 0830 Basic Information 64-year-old female presents with multiple falls. Patient has apparently been seen in multiple separate occasions at different hospitals for similar presentations. Workup at this time is benign. Patient is pending physical therapy and case management evaluation. MDM Patient waiting overnight pending home health services in the morning. Disposition Disposition/Signout: Signed out to Dr. Baldwin Time: 04/01 at 1700 * Azra Tate RN - 04/01/2025 6:50 AM EDT Patient was transferred to hospital bed for comfort. Safety and comfort measures have been in place. Azra Tate RN 04/01/25 0651 * Azra Tate RN - 03/31/2025 9:47 PM EDT BIBA, from home, per EMS, patient had a fall earlier, patient stated that my knees gave out . Patient denies head strike/LOC. Patient is on Eliquis. Patient has multiple falls recently. Patient has another fall yesterday and went to [facility], had CT of the head and then left AMA. Patient denies other complains. Per EMS, patient was reported to have possible early onset of dementia. * Evelia Lopez MD - 03/31/2025 9:40 PM EDT EMERGENCY DEPARTMENT Provider Note Room: [facility] Patient: Lucila Cruz PCP: Dede Pimentel NP Patient : [id number] Patient Department: [facility] [address] [id number] Dept: [phone] Triage Chief Complaint: Fall History of Present Illness: History difficult to obtain as patient does not provide clear history and timeline of events. Tellsme she is here due to recurrent falls. States she was seen in [facility] yesterday following a fall, was told she needs to stay to be placed in a rehab facility, then states she was discharged to her home with home health [facility], no longer placed in rehab. Patient reports she went home and fell again. States she was walking with her walker and just tipped over, hitting her head on the floor. She is on anticoagulation for history of VTE. Did not lose consciousness. Neighbor called for EMS. Denies any new numbness or weakness. Unable to tell me why she requires a walker to ambulate at her age. States she has discussed her recurrent falls with her PCP. Denies any significant alcohol use, does have significant psychiatric history on multiple medications. Complaining of neck pain and upper back pain as well as right knee pain. ED Course / Medications given / MDM: 64-year-old female presenting for evaluation following a fall, head strike without loss of consciousness on anticoagulation. She is well-appearing, no neurologic deficits on my exam though patient does have significant difficulty lifting her legs off of the stretcher. Will obtain imaging of head, C-spine, thoracic spine as well as right knee based on my physical exam. Discussed PT evaluation withpatient if imaging is normal, patient states she would like to be discharged home with a wheelchair, would not like to be placed in a rehab facility Patient's imaging is unremarkable. Home meds ordered. She is awaiting PT evaluation and recommendations. Care was handed over to the [facility] provider. ED Course as of 04/05/25 0927 Tue Mar 31, 2025 2240 EKG 2210 shows normal sinus rhythm with a rate of 73, normal axis, no STEMI. QTc 480. No priorfor comparison [EK] Wed Apr 01, [address] imaging and XR knee negative. [EK] 0333 Patient clear for PT eval, discharge planning [EK] 0416 Home meds ordered [EK] 1740 Patient signed out to me pending PT evaluation for placement for frequent falls [MZ] 2310 Received in signout. Patient awaiting safe discharge planning, was recommended to detention facility by PT. Per nursing note, patient becomes agitated and wants to leave, we are to call her daughters to have them come pick her up. [EK] Andressa Apr 02, 2025 0653 No acute needs during my shift. [facility]. [EK] 2114 Received in signout. Continues to await ELIZABETH. [EK] Fri Apr 03, 2025 0502 No acute needs during my shift. Patient's care was handed over to the oncoming provider. [EK] 1348 Patient bed placement still in progress. Patient may be possibly referred for placement in psychiatric facility to stabilize her medication dosing/avoid over medication [AK] 1406 After discussion with consultants, we are referring the patient to [facility] facility for medication management. Patient is having recurrent falls. These may be related toovermedication/psychotropic medication dosing. Therefore the patient would benefit for medication ma nagement/stabilization/adjustments in a specialized facility. The patient has been medically cleared/determined medically safe for departure from the emergency department. Case management assisting in transfer planning. [AK] 2227 Received pt in signout, no issues during my shift, awaiting placement due to psyche issues andweaknesss will likely be here over weekend. [JL] Sat Apr 04, 2025 0740 S/o 64 you female with frequent falls. Using a walker, PT eval/CM. Concern for polypharmacy with psychotropic meds. Pending placement at [facility]. [BM] Sun Apr 05, 2025 0730 No acute needs during my shift. Patient became agitated and wanted to leave the department multiple times, was verbally redirected and as needed anxiety medications administered. [facility] Will likely be in our ED until 04/07 due to holiday weekend. Patient's care was handed over to the oncoming provider. [EK] 0853 S/o pending behavioral health placement. Frequent falls. Possibly polypharmacy. [BM] ED Course User Index [AK] Amrita Duke MD [BM] Ac Salamanca MD [EK] Evelia Lopez MD [JL] Sebastian Buck MD [MZ] Prieto Baldwin MD Clinical Impressions as of 04/05/25 0927 Fall, initial encounter Closed head injury, initial encounter Neck pain Acute midline thoracic back pain Polypharmacy Medications buPROPion XL (WELLBUTRIN XL) 24 hr tablet 300 mg (300 mg oral Given 04/01/25 0847) FLUoxetine (PROzac) capsule 40 mg (40 mg oral Given 04/01/25 0849) hydrOXYzine pamoate (VISTARIL) capsule 25 mg (has no administration in time range) LORazepam (ATIVAN) tablet 1 mg (1 mg oral Given 04/01/25 0427) methenamine hippurate (HIPREX) tablet 1 g (has no administration in time range) metoprolol succinate (TOPROL-XL) 24 Hour tablet 25 mg (25 mg oral Given 04/01/25 0850) OXcarbazepine (TRILEPTAL) tablet 600 mg (600 mg oral Given 04/01/25 0847) pregabalin (LYRICA) capsule 200 mg (200 mg oral Not Given 04/01/25 0846) potassium chloride (KLOR-CON M10) CR tablet 10 mEq (10 mEq oral Given 04/01/25 0846) apixaban (ELIQUIS) tablet 5 mg (5 mg oral Given 04/01/25 0847) prazosin (MINIPRESS) capsule 3 mg (has no administration in time range) QUEtiapine (SEROquel) tablet 400 mg (has no administration in time range) acetaminophen (TYLENOL) tablet 1,000 mg (1,000 mg oral Given 04/01/25 0120) bumetanide (BUMEX) tablet 2 mg (2 mg oral Given 04/01/25 0849) Clinical Impression(s): Final diagnoses: [W19.XXXA] Fall, initial encounter [S09.90XA] Closed head injury, initial encounter [M54.2] Neck pain [M54.6] Acute midline thoracic back pain Disposition: Data Unavailable Physical Examination: Temp: 36.8 ??C (98.2 ??F) BP: 130/71 Heart Rate: 76 Resp: 20 SpO2: 91 % Nursing notes and vital signs reviewed. General: Well-appearing, no distress. Speech non-labored, able to speak in complete sentences and answering questions appropriately. HENT: No significant deformities of skull, skin or soft tissue were noted visually or by palpation.No chapman sign, no raccoon eyes. Eyes: PERRL, extraocular movement intact, sclerae anicteric, noninjected conjunctiva. Neck: No soft tissue injuries of the anterior, lateral, or posterior neck. +midline C-spine tenderness. Full ROM. Chest: Normal chest rise and fall observed. Clavicles intact and nontender to palpation. No chest wall deformity. CV: Normal rate, regular rhythm. Extremities well-perfused and distal pulses palpable. Pulm: Clear to auscultation bilaterally. Normal work of breathing on room air. Abd: Abdomen non-distended, non-tender to palpation, no rebound tenderness. No significant bruisingnoted externally. Extremities: No significant deformity over the joints or long bones. Mild TTP of R knee. No cyanosis, no edema. Neuro: Alert and oriented x3. Follows commands. Sensation to light touch intact in upper and lower extremities bilaterally, 5/5 strength with hand cessation systems outreach specialist bilaterally. Able to lift bilateral lower extremities off stretcher but not by much. Back: + Midline thoracic spinal tenderness. No step-offs, deformities appreciated. No significant external soft tissue injuries of thoracic or lumbar back. Skin: Clean, dry, intact. No lacerations. No rash noted. No mottling. Lab & Imaging Results: Encounter Date: 03/31/25 ECG 12 lead Result Value Ventricular Rate ECG 73 Atrial Rate 73 P-R Interval 194 QRS Duration 90 Q-T Interval 436 QTc 480 P Wave [place] 39 R [place] 77 T [place] 69 ECG Interpretation Normal sinus rhythm Normal ECG No previous ECGs available *Note: Due to a large number of results and/or encounters for the requested time period, some results have not been displayed. A complete set of results can be found in Results Review. If an EKG was performed on today's visit and is documented above I independently interpreted/read the EKG as noted above at the time of service as above. Labs Reviewed BASIC METABOLIC PANEL - Abnormal Result Value Sodium 136 Potassium 4.4 Chloride 105 CO2 28 Anion Gap 3 Glucose 99 BUN 20 Creatinine 1.07 eGFR 59 (*) BUN/Creatinine Ratio 18.7 Calcium 9.4 CBC WITH AUTO DIFFERENTIAL - Abnormal WBC 13.9 (*) RBC 4.70 Hemoglobin 14.7 Hematocrit 44.9 MCV 95.9 MCH 31.4 MCHC 32.7 RDW 13.3 Platelets 372 MPV 10.0 NRBC 0.0 NRBC Absolute 0.00 Neutrophils Relative 75.4 Lymphocytes Relative 14.5 Monocytes Relative 8.4 Eosinophils Relative 0.8 Basophils Relative 0.5 Immature Granulocytes Relative 0.4 Neutrophils Absolute 10.49 (*) Lymphocytes Absolute 2.01 Monocytes Absolute 1.17 (*) Eosinophils Absolute 0.11 Basophils Absolute 0.07 Immature Granulocytes Absolute 0.06 (*) URINALYSIS WITH REFLEX MICROSCOPIC AND CULTURE - Abnormal Specific [place] Urine 1.024 pH, Urine 7.0 Leukocytes, Urine Small (*) Nitrite, Urine Negative Protein, Urine Trace Glucose, Urine Negative Ketones, Urine Trace (*) Urobilinogen, Urine 1.0 Bilirubin, Urine Negative Blood, Urine Small (*) RBC, Urine 37.9 (*) WBC, Urine 2.9 Squamous Epithelial, Urine 79 (*) Bacteria, Urine Negative Hyaline Casts, Urine 2.0 POCT GLUCOSE, BLOOD - Abnormal Glucose POCT 110 (*) MAGNESIUM - Normal Magnesium 1.9 POCT GLUCOSE, BLOOD - Normal Glucose POCT 89 CULTURE URINE CBC AND DIFFERENTIAL Narrative: The following orders were created for panel order CBC and differential. Procedure Abnormality Status --------- ------ CBC auto differential[[id number]] Abnormal Final result Please view results for these tests on the individual orders. URINALYSIS WITH REFLEX MICROSCOPIC AND CULTURE Narrative: The following orders were created for panel order Urinalysis with reflex microscopic and culture. Procedure Abnormality Status --------- ------ Urinalysis with reflex ...[[id number]] Abnormal Final result Fernandez urine culture tube[[id number]] Final result Please view results for these tests on the individual orders. POCT GLUCOSE, BLOOD XR Knee 4+ Views Right ED Interpretation No acute osseous abnormality Final Result Impression: 1. No evidence of fracture. 2. Moderate tricompartmental arthritic change. [place] ([id number]) -------- FINAL REPORT -------- Dictated By: Berta Mock Dictated Date: 04/01/2025 09:13 ET Assigned Physician: Berta Mock Reviewed and Electronically Signed By: Berta Mock Signed Date: 04/01/2025 09:14 ET Workstation ID: [id number] Transcribed By: Self Edit Transcribed Date: 04/01/2025 09:[address] Head wo Contrast Final Result No acute intracranial abnormality. This document has been electronically signed by: Radhames Hinds MD on 04/01/2025 03:28:45 CT Cervical Spine wo Contrast Final Result No evidence of cervical spine injury. This document has been electronically signed by: Radhames Hinds MD on 04/01/2025 03:26:31 CT Thoracic Spine wo Contrast Final Result No evidence of thoracic spine injury. This document has been electronically signed by: Radhames Hinds MD on 04/01/2025 03:26:49 I personally reviewed the patient's images and agree with radiologist interpretation unless otherwise noted here or in ED course or MDM section Procedures: Procedures Previous Medications ALBUTEROL HFA (PROAIR HFA ; PROVENTIL HFA ; VENTOLIN HFA) 90 MCG/ACTUATION INHALER Inhale 2 puffs by mouth every 6 (six) hours if needed for wheezing or shortness of breath. APIXABAN (ELIQUIS) 5 MG TABLET Take 1 tablet (5 mg total) by mouth 2 (two) times a day. ASPIRIN 81 MG CHEWABLE TABLET Chew 1 tablet (81 mg total) at bedtime. 1 tab chewed in the mouth daily ATORVASTATIN (LIPITOR) 40 MG TABLET Take 1 tablet (40 mg total) by mouth at bedtime. BUMETANIDE (BUMEX) 2 MG TABLET Take 1 tablet (2 mg total) by mouth 3 (three) times a week. Sunday, Sunday, Sunday. BUPROPION XL (WELLBUTRIN XL) 150 MG 24 HR TABLET Take 1 tablet (150 mg total) by mouth 1 (one) timeeach day in the morning. Do not crush, chew, or split. To total 450 mg daily. BUPROPION XL (WELLBUTRIN XL) 300 MG 24 HR TABLET Take 1 tablet (300 mg total) by mouth 1 (one) timeeach day in the morning. Do not crush, chew, or split. CAPSAICIN (ZOSTRIX) 0.025 % CREAM Apply topically 4 (four) times a day if needed for mild pain. ESTRADIOL (ESTRACE) 0.01 % (0.1 MG/GRAM) VAGINAL CREAM Insert 2 g into the vagina 2 (two) times a week. 0.5 applicatorful as directed 2 times per week FAMOTIDINE (PEPCID) 40 MG TABLET Take 1 tablet (40 mg total) by mouth at bedtime. FERROUS SULFATE 325 MG (65 MG IRON) EC TABLET Take 1 tablet (325 mg total) by mouth 1 (one) time each day with breakfast. Do not crush, chew, or split. FLUOXETINE (PROZAC) 40 MG CAPSULE Take 1 capsule (40 mg total) by mouth 1 (one) time each day. HCWSROLKSXE-XSQQEBKDETOE-RTVQWSOVJY (TRELEGY ELLIPTA) 100-62.5-25 MCG INHALER Inhale 1 puff (100 mcg total) by mouth 1 (one) time each day. Rinse mouth with water after use to reduce aftertaste and incidence of candidiasis. Do not swallow. HYDROXYZINE HCL (ATARAX) 25 MG TABLET Take 1 tablet (25 mg total) by mouth 3 (three) times a day. IPRATROPIUM-ALBUTEROL (DUONEB) 0.5-2.5 MG/3 ML NEBULIZER SOLUTION Take 3 mL by nebulization 3 (three) times a day if needed for wheezing. LIDOCAINE (ASPERCREME, LIDOCAINE,) 4 % PATCH Apply 1 patch topically 1 (one) time each day. LORAZEPAM (ATIVAN) 1 MG TABLET Take 1 tablet (1 mg total) by mouth every 8 (eight) hours. Max DailyAmount: 3 mg METHENAMINE HIPPURATE (HIPREX) 1 GRAM TABLET Take 1 tablet (1 g total) by mouth 1 (one) time each day in the morning. 1 tab by mouth every morning METOPROLOL SUCCINATE (TOPROL-XL) 25 MG 24 HR TABLET Take 1 tablet (25 mg total) by mouth 1 (one) time each day. Do not crush or chew. OXCARBAZEPINE (TRILEPTAL) 300 MG TABLET Take 2 tablets (600 mg total) by mouth 2 (two) times a day. POTASSIUM CHLORIDE (MICRO-K) 10 MEQ CR CAPSULE Take 1 capsule (10 mEq total) by mouth 2 (two) timesa day. PRAZOSIN (MINIPRESS) 1 MG CAPSULE Take 3 capsules (3 mg total) by mouth at bedtime. PREGABALIN (LYRICA) 200 MG CAPSULE Take 1 capsule (200 mg total) by mouth 2 (two) times a day. Max Daily Amount: 400 mg QUETIAPINE (SEROQUEL) 400 MG TABLET Take 1 tablet (400 mg total) by mouth at bedtime. Center ([facility]) SENNA (SENNA LAX) 8.6 MG TABLET Take 2 tablets (17.2 mg total) by mouth 1 (one) time each day. SODIUM,POTASSIUM,MAG SULFATES (SUPREP BOWEL PREP KIT) 17.5-3.13-1.6 GRAM RECON SOLN BOWEL PREP KIT ORAL SOLUTION Take 177ML by mouth for 2 doses. SEE INSTRUCTIONS PROVIDED BY OFFICE. TRAZODONE (DESYREL) 50 MG TABLET Take 0.5 tablets (25 mg total) by mouth every 8 (eight) hours. Allergies: Ciprofloxacin, Penicillins, and Sertraline Medical History[1] Surgical History[2] Social History[3] Evelia Lopez MD 04/01/25 0348 Evelia Lopez MD 04/01/25 1128 [1] Past Medical History: Diagnosis Date ??? A-fib (CMS/[facility] V24, CMS/[facility] V28) ??? Abdominal pain 07/30/2024 ??? CHF (congestive heart failure) (CMS/[facility] V24, CMS/HCC V28) ??? Chronic kidney disease ??? COPD (chronic obstructive pulmonary disease) ([facility] V24, [facility] V28) ??? DVT of proximal leg (deep vein thrombosis) ([facility] V24, [facility] V28) ??? History of CVA (cerebrovascular accident) ??? History of deep vein thrombosis ??? History of esophageal stricture ??? History of falling ??? History of pulmonary embolism ??? Hyperlipidemia ??? Hypertension ??? Leukocytosis (leucocytosis) 01/29/2024 ??? Migraine ??? Oral lesion 07/30/2024 ??? Pneumonia of right lower lobe due to infectious organism 11/21/2024 ??? Pulmonary embolism ([facility] V24, [facility] V28) ??? Sleep apnea ??? Wears dentures [2] Past Surgical History: Procedure Laterality Date ??? SECTION ??? CHOLECYSTECTOMY ??? COLONOSCOPY ??? SPLENECTOMY, TOTAL ??? STEREOTACTIC CORE BIOPSY Left ??? TONSILLECTOMY [3] Social History Tobacco Use ??? Smoking status: Every Day Current packs/day: 0.50 Average packs/day: 0.5 packs/day for 45.8 years (22.9 ttl pk-yrs) Types: Cigarettes Start date: 1979 ??? Smokeless tobacco: Current ??? Tobacco comments: cigs per day : 6 Calculated quantity/packs per year: 2189 Substance Use Topics ??? Alcohol use: Not Currently Alcohol/week: 1.0 standard drink of alcohol ??? Drug use: Yes Types: Marijuana/Cannabis Comment: THC gummies on ocassion * Prieto Baldwin MD - 03/31/2025 9:40 PM EDT HPI Chief Complaint Patient presents with ??? Fall HPI [place] Coma Scale Score: 15 Patient History Medical History[1] Surgical History[2] Family History[3] Social History Tobacco Use ??? Smoking status: Every Day Current packs/day: 0.50 Average packs/day: 0.5 packs/day for 45.8 years (22.9 ttl pk-yrs) Types: Cigarettes Start date: 1979 ??? Smokeless tobacco: Current ??? Tobacco comments: cigs per day : 6 Calculated quantity/packs per year: 2189 Substance Use Topics ??? Alcohol use: Not Currently Alcohol/week: 1.0 standard drink of alcohol ??? Drug use: Yes Types: Marijuana/Cannabis Comment: THC gummies on ocassion Review of Systems Review of Systems Physical Exam ED Triage Vitals Temp Heart Rate Resp BP 03/31/25 2202 03/31/25 2202 03/31/25 2202 03/31/25 2202 36.8 ??C (98.2 ??F) 76 20 130/71 SpO2 Temp Source Heart Rate Source Patient Position 03/31/25 2202 03/31/25 2202 04/01/25 0717 03/31/25 220 91 % Oral Monitor Sitting BP Location FiO2 (%) 03/31/25 220 -- Left arm Physical Exam ED Course & MDM ED Course as of 04/03/25 1734 Tue Mar 31, 2025 2240 EKG 2210 shows normal sinus rhythm with a rate of 73, normal axis, no STEMI. QTc 480. No priorfor comparison [EK] Wed Apr 01, [address] imaging and XR knee negative. [EK] 0333 Patient clear for PT eval, discharge planning [EK] 0416 Home meds ordered [EK] 1740 Patient signed out to me pending PT evaluation for placement for frequent falls [MZ] 2310 Received in signout. Patient awaiting safe discharge planning, was recommended to detention facility by PT. Per nursing note, patient becomes agitated and wants to leave, we are to call her daughters to have them come pick her up. [EK] Andressa Apr 02, 2025 0653 No acute needs during my shift. Patient's care was handed over to the oncoming provider. [EK] 2114 Received in signout. Continues to await ELIZABETH. [EK] Fri Apr 03, 2025 0502 No acute needs during my shift. Patient's care was handed over to the oncoming provider. [EK] 1348 Patient bed placement still in progress. Patient may be possibly referred for placement in psychiatric facility to stabilize her medication dosing/avoid over medication [AK] 1406 After discussion with consultants, we are referring the patient to [facility] for medication management. Patient is having recurrent falls. These may be related toovermedication/psychotropic medication dosing. Therefore the patient would benefit for medication ma nagement/stabilization/adjustments in a specialized facility. The patient has been medically cleared/determined medically safe for departure from the emergency department. Case management assisting in transfer planning. [AK] ED Course User Index [AK] Amrita Duke MD [EK] Evelia Lopez MD [MZ] Prieto Baldwin MD Clinical Impressions as of 04/03/25 1734 Fall, initial encounter Closed head injury, initial encounter Neck pain Acute midline thoracic back pain Polypharmacy Medical Decision Making Procedures Prieto Baldwin MD 04/01/25 1812 [1] Past Medical History: Diagnosis Date ??? A-fib (CMS/HCC V24, CMS/HCC V28) ??? Abdominal pain 07/30/2024 ??? CHF (congestive heart failure) (CMS/HCC V24, CMS/HCC V28) ??? Chronic kidney disease ??? COPD (chronic obstructive pulmonary disease) (CMS/HCC V24, CMS/HCC V28) ??? DVT of proximal leg (deep vein thrombosis) (CMS/HCC V24, CMS/HCC V28) ??? History of CVA (cerebrovascular accident) ??? History of deep vein thrombosis ??? History of esophageal stricture ??? History of falling ??? History of pulmonary embolism ??? Hyperlipidemia ??? Hypertension ??? Leukocytosis (leucocytosis) 01/29/2024 ??? Migraine ??? Oral lesion 07/30/2024 ??? Pneumonia of right lower lobe due to infectious organism 11/21/2024 ??? Pulmonary embolism (CMS/HCC V24, CMS/HCC V28) ??? Sleep apnea ??? Wears dentures [2] Past Surgical History: Procedure Laterality Date ??? SECTION ??? CHOLECYSTECTOMY ??? COLONOSCOPY ??? SPLENECTOMY, TOTAL ??? STEREOTACTIC CORE BIOPSY Left ??? TONSILLECTOMY [3] Family History Problem Relation Name Age of Onset ??? Breast cancer Mother Lung cancer ??? Kidney failure Father Lung cancer Prieto Baldwin MD 04/03/25 1734 documented in this encounter H&P Notes * Mariano Galindo MD - 04/06/2025 10:47 AM EDT Images from the original note were not included. PRIETO HISTORY AND PHYSICAL Please contact author [Mariano Galindo MD] via [employer]/T-Quad [employer]. Patient: Lucila Cruz Admission Date/Time: 03/31/2025 9:43 PM : 1960 [64 y.o.] Patient's PCP: Dede Pimentel NP Attending Provider: Mariano Galindo MD CHIEF COMPLAINT Patient referred for admission because of increased deconditioning and inability to find rehabilitation center. HISTORY OF PRESENT ILLNESS This is a 64-year-old female with history of bipolar disorder who has spent several days in emergency room awaiting awaiting placement in psych. This resulted in development of deconditioning to the point where she now needs physical Occupational Therapy and placement in rehab. Patient has very poor sleep which has been even worse while she was sitting here in the emergency room. I have reviewed her EKG from March 31 that shows normal sinus rhythm no ST segment elevations or depressions and no QTc prolongation. CT imaging of the chest from April 01 did not show any pulmonary vascular congestion or infiltrates. X-ray of the knee is negative. She was seen by crisis and her medications have been managed. Patient has been having frequent falls. While spending time in emergency room she has had multiple episodes of agitation requiring to leaveAGAINST MEDICAL ADVICE. She is expecting to be placed at [facility] rehab facility. No having worsening delirium and presence of severe urinary tract infection. For this reason after conversation with social work program coordinator and emergency room department final decision has been made to admit the patient to the hospital and treat Review of Systems Review of Systems 12 systems negative for any chest pain palpitation shortness of breath no abdominal pain but does she does complain of urgency. MEDICAL HISTORY Past Medical History Medical History[1] Past Surgical History Surgical History[2] Social History reports that she has been smoking cigarettes. She started smoking about 45 years ago. She has a 22.9 pack-year smoking history. She uses smokeless tobacco. She reports that she does not currently usealcohol after a past usage of about 1.0 standard drink of alcohol per week. She reports current drug use. Drug: Marijuana/Cannabis. Family History family history includes Breast cancer in her mother; Kidney failure in her father. Allergies is allergic to ciprofloxacin, penicillins, and sertraline. Home Medications Medications Ordered Prior to Encounter[3] OBJECTIVE Vitals Visit Vitals BP 107/60 (BP Location: Left arm, Patient Position: Lying) Pulse 58 Temp 36.4 ??C (97.5 ??F) (Temporal) Resp 18 Temp (24hrs), Av.4 ??C (97.6 ??F), Min:36.3 ??C (97.3 ??F), Max:36.7 ??C (98 ??F) Body mass index is 35.58 kg/m??. No results found for: PTWT , PTHT Physical Examination Physical Exam Patient in no apparent distress alert and oriented to person place but not to time. Neurologically grossly nonfocal. Lungs clear to auscultation on both sides Heart exam reveals S1-S2 with regular rate and rhythm no murmurs rubs gallops Abdomen soft nontender nondistended with normal bowel sounds without any masses Extremities perfused LAB RESULTS (most recent) HEMATOLOGY Lab Results Component Value Date WBC 9.5 04/06/2025 HGB 15.0 04/06/2025 HCT 44.9 04/06/2025 MCV 96.1 04/06/2025 PLT 326 04/06/2025 CHEMISTRY Lab Results Component Value Date GLUCOSE 85 04/06/2025 NA 136 04/06/2025 K 4.0 04/06/2025 CO2 27 04/06/2025 CL 103 04/06/2025 BUN 16 04/06/2025 CREATININE 0.82 04/06/2025 EGFR 81 04/06/2025 CALCIUM 9.4 04/06/2025 MG 1.9 03/31/2025 ANIONGAP 6 04/06/2025 Radiology XR Knee 4+ Views Right ED Interpretation No acute osseous abnormality Final Result Impression: 1. No evidence of fracture. 2. Moderate tricompartmental arthritic change. Telerad HALLEY ([id number]) -------- FINAL REPORT -------- Dictated By: Berta Mock Dictated Date: 04/01/2025 09:13 ET Assigned Physician: Berta Mock Reviewed and Electronically Signed By: Berta Mock Signed Date: 04/01/2025 09:14 ET Workstation ID: [id number] Transcribed By: Self Edit Transcribed Date: 04/01/2025 09:[address] Head wo Contrast Final Result No acute intracranial abnormality. This document has been electronically signed by: Radhames Hinds MD on 04/01/2025 03:28:45 CT Cervical Spine wo Contrast Final Result No evidence of cervical spine injury. This document has been electronically signed by: Radhames Hinds MD on 04/01/2025 03:26:31 CT Thoracic Spine wo Contrast Final Result No evidence of thoracic spine injury. This document has been electronically signed by: Radhames Hinds MD on 04/01/2025 03:26:49 ASSESSMENT & PLAN #1 urinary tract infection. Start gentle hydration Rocephin. #2 constipation. Start Senokot and MiraLAX as needed #3 atrial fibrillation. Rate controlled with beta-donna. She is currently on metoprolol 25 mg daily #4 secondary hypercoagulable state. Continue Eliquis. 5. Bipolar disorder. Per psychiatric recommendation prazosin will be decreased 2 mg PO qHS x 7 days, then 1 mg PO qHS x 7 days, then discontinue. Recommend patient to work with outpatient provider to taper and discontinue Prozac and then Wellbutrin XL, once the patient has tapered and discontinued prazosin. Continue Trileptal 600 mg PO BID for mood stability. Patient is also on Seroquel Discontinuation of hydroxyzine has been recommended due to drug-drug interaction with Seroquel. Ativan should be limited. #6 hyperlipidemia. Continue atorvastatin. #7 insomnia continue trazodone Admission checklist [] Code status: Prior [] VTE Prophylaxis: Eliquis [] Diet order on admission: Dietary Orders (From admission, onward) Start Ordered 04/01/25 1622 Adult diet [facility]; Cardiac; Sodium 2 gm Restriction Diet effective now Question Answer Comment Location [facility] Diet Type (req) Cardiac Diet Type (cardiac) Sodium 2 gm Restriction 04/01/25 1622 [] Lines, tubes, drains: [x] Medication reconciliation Health Care proxy with Phone number [employer] +4 more Jayda Styles (Daughter) [phone] (Home Phone) [1] Past Medical History: Diagnosis Date A-fib (CMS/HCC V24, CMS/HCC V28) Abdominal pain 07/30/2024 CHF (congestive heart failure) (CMS/HCC V24, CMS/HCC V28) Chronic kidney disease COPD (chronic obstructive pulmonary disease) (CMS/HCC V24, CMS/HCC V28) DVT of proximal leg (deep vein thrombosis) (CMS/HCC V24, CMS/HCC V28) History of CVA (cerebrovascular accident) History of deep vein thrombosis History of esophageal stricture History of falling History of pulmonary embolism Hyperlipidemia Hypertension Leukocytosis (leucocytosis) 01/29/2024 Migraine Oral lesion 07/30/2024 Pneumonia of right lower lobe due to infectious organism 11/21/2024 Pulmonary embolism (CMS/HCC V24, CMS/HCC V28) Sleep apnea Wears dentures [2] Past Surgical History: Procedure Laterality Date SECTION CHOLECYSTECTOMY COLONOSCOPY SPLENECTOMY, TOTAL STEREOTACTIC CORE BIOPSY Left TONSILLECTOMY [3] No current facility-administered medications on file prior to encounter. Current Outpatient Medications on File Prior to Encounter Medication Sig Dispense Refill apixaban (ELIQUIS) 5 mg tablet Take 1 tablet (5 mg total) by mouth 2 (two) times a day. 56 each 11 aspirin 81 mg chewable tablet Chew 1 tablet (81 mg total) at bedtime. 1 tab chewed in the mouth daily 28 each 11 atorvastatin (LIPITOR) 40 mg tablet Take 1 tablet (40 mg total) by mouth at bedtime. 28 each 11 buPROPion XL (WELLBUTRIN XL) 150 mg 24 hr tablet Take 1 tablet (150 mg total) by mouth 1 (one) timeeach day in the morning. Do not crush, chew, or split. To total 450 mg daily. 30 each 5 buPROPion XL (WELLBUTRIN XL) 300 mg 24 hr tablet Take 1 tablet (300 mg total) by mouth 1 (one) timeeach day in the morning. Do not crush, chew, or split. 30 each 5 famotidine (Pepcid) 40 mg tablet Take 1 tablet (40 mg total) by mouth at bedtime. 28 each 11 ferrous sulfate 325 mg (65 mg iron) EC tablet Take 1 tablet (325 mg total) by mouth 1 (one) time each day with breakfast. Do not crush, chew, or split. 28 each 11 FLUoxetine (PROzac) 40 mg capsule Take 1 capsule (40 mg total) by mouth 1 (one) time each day. 28 capsule 11 hydrOXYzine HCL (ATARAX) 25 mg tablet Take 1 tablet (25 mg total) by mouth 3 (three) times a day. 56 each 11 LORazepam (ATIVAN) 1 mg tablet Take 1 tablet (1 mg total) by mouth every 8 (eight) hours. Max DailyAmount: 3 mg 84 each 5 methenamine hippurate (HIPREX) 1 gram tablet Take 1 tablet (1 g total) by mouth 1 (one) time each day in the morning. 1 tab by mouth every morning 28 each 11 metoprolol succinate (TOPROL-XL) 25 mg 24 hr tablet Take 1 tablet (25 mg total) by mouth 1 (one) time each day. Do not crush or chew. 28 tablet 11 OXcarbazepine (TRILEPTAL) 300 mg tablet Take 2 tablets (600 mg total) by mouth 2 (two) times a day.112 each 11 potassium chloride (MICRO-K) 10 mEq CR capsule Take 1 capsule (10 mEq total) by mouth 2 (two) timesa day. 28 each 11 prazosin (MINIPRESS) 1 mg capsule Take 3 capsules (3 mg total) by mouth at bedtime. 84 each 11 pregabalin (Lyrica) 200 mg capsule Take 1 capsule (200 mg total) by mouth 2 (two) times a day. Max Daily Amount: 400 mg 56 each 1 QUEtiapine (SeroqueL) 400 mg tablet Take 1 tablet (400 mg total) by mouth at bedtime. Center ( Center) 28 each 11 senna (Senna Lax) 8.6 mg tablet Take 2 tablets (17.2 mg total) by mouth 1 (one) time each day. 60 each 11 traZODone (DESYREL) 50 mg tablet Take 0.5 tablets (25 mg total) by mouth every 8 (eight) hours. 42 each 11 albuterol HFA (PROAIR HFA ; PROVENTIL HFA ; VENTOLIN HFA) 90 mcg/actuation inhaler Inhale 2 puffs by mouth every 6 (six) hours if needed for wheezing or shortness of breath. 6.7 g 3 bumetanide (BUMEX) 2 mg tablet Take 1 tablet (2 mg total) by mouth 3 (three) times a week. Sunday, Sunday, Sunday. 12 each 11 capsaicin (ZOSTRIX) 0.025 % cream Apply topically 4 (four) times a day if needed for mild pain. 60 g 0 estradioL (ESTRACE) 0.01 % (0.1 mg/gram) vaginal cream Insert 2 g into the vagina 2 (two) times a week. 0.5 applicatorful as directed 2 times per week 42.5 g 11 oryzrkgmtdb-kwrsoamcjfzq-gssenjzksa (Trelegy Ellipta) 100-62.5-25 mcg inhaler Inhale 1 puff (100 mcg total) by mouth 1 (one) time each day. Rinse mouth with water after use to reduce aftertaste and incidence of candidiasis. Do not swallow. 1 each 11 ipratropium-albuteroL (DUONEB) 0.5-2.5 mg/3 mL nebulizer solution Take 3 mL by nebulization 3 (three) times a day if needed for wheezing. 60 mL 3 [] lidocaine (Aspercreme, lidocaine,) 4 % patch Apply 1 patch topically 1 (one) time each day. 28 each 5 sodium,potassium,mag sulfates (Suprep Bowel Prep Kit) 17.5-3.13-1.6 gram recon soln bowel prep kit oral solution Take 177ML by mouth for 2 doses. SEE INSTRUCTIONS PROVIDED BY OFFICE. (Patient not taking: Reported on 04/06/2025) 1 kit 0 documented in this encounter Consult Notes * Kaylan Munoz MD - 04/02/2025 2:38 PM EDTAssociated Order(s): IP CONSULT TO PSYCHIATRY Connected to patient's room via I-pad with help from polysomnographic technician; assistance much appreciated. Patient consented verbally to visit via Telehealth video conferencing modality. Patient educated asto likely differences between Telehealth care and face to face care. Patient informed of the risks and benefits of using Telehealth services and procedures and likely risks and benefits of using alternatives to Telehealth services. Patient informed of the right to refuse Telehealth services at any time without jeopardizing his/her right to future care, services or benefits. Patient was informed that he/she is being seen solely by Kaylan Munoz MD today via secure audio/visual connection in alocked virtual exam room. Persons present on patient's end: Patient Persons present on provider's end in [place]: Kaylan Munoz MD CHART REVIEWED, PATIENT INTERVIEWED. CHIEF COMPLAINT: Concern for polypharmacy Time spent on encounter: 40 min (30 min face to face, 10 min in chart review and documentation) Billing: [facility] HISTORY OF PRESENT ILLNESS Lucila Cruz is a 64 y.o. 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 Psychiatry was consulted for evaluation of the patient's psychotropic medications d/t concern for polypharmacy. The patient states that she was brought to the hospital because she had another fall. Shestates that she had been in the hospital somewhere else and was discharged to home for only a few hours before she had another fall and had to be brought to [facility]. She was trying to get up because she didn't want her kids to get involved and for her to have to come back to the hospital, but she couldn't get up and her neighbor found her down and called for an ambulance. She reports that her outpatient psychiatrist has been trying to simplify her psychotropic medication regimen, but she notes that she developed suicidal ideations when those changes were made. She reports that that doctor actually added medication (Wellbutrin XL and Paxil) and didn't take anything else away. Her children haveaccused her of pill- seeking, but she is just trying to do what her doctors are telling her to do. Th e patient denies any suicidal or homicidal ideations, plan, or intent. She is not really wanting togo to a nursing facility or to a psychiatric unit voluntarily. She doesn't get confused at home about her medications and reports that she always takes them as she is told to do. Her medications are bubble- packed from the pharmacy. She agrees that she is on too much medication at present. She denies any current symptoms of depression/nicolas/hypomania. REVIEW OF SYSTEMS CONSTITUTIONAL: The patient denies fevers, chills, sweats and body ache. HEENT: Denies DEJESUS, blurry vision, eye pain, tinnitus, vertigo, gingival bleeding, sore throat, neck or thyroid masses. RESPIRATORY: Denies cough, sputum, hemoptysis. CARDIAC: Denies chest pain, pressure, palpitations, irregular heartbeats. Denies lower extremity edema. GASTROINTESTINAL: Denies abdominal pain, changes in bowel habits or any bleeding on toilet paper. GENITOURINARY: Denies dysuria, hematuria, nocturia or frequency. NEUROLOGIC: Denies headaches, dizziness, syncope. MUSCULOSKELETAL: Negative for arthritis. Denies muscle weakness. No limitation in range of motion. VASCULAR: Denies claudication and cramping. ENDOCRINOLOGY: Denies heat or cold intolerance. HEMATOLOGY: Denies easy bleeding or blood transfusion. DERMATOLOGY: Denies changes in moles or pigmentation changes. Psychiatric ROS: Depression: See HPI. Nicolas: See HPI. Psychosis: The patient denies audio or visual hallucinations, delusions, thought broadcasting, thought insertion, delusions of reference, catatonia, or disorganized speech or behavior. Anxiety: The patient denies any excessive worry, restlessness, fatigue, poor concentration, irritability, muscle tension, or anxiety-related sleep changes. Panic: The patient denies any recent panic episodes. PTSD: The patient does not endorse any current s/s related to PTSD. OCD: The patient denies intrusive thoughts, repetitive behaviors, counting, checking, washing, symmetry, or grouping and ordering that take up more than 1 hour of the day. Eating Disorder: The patient denies feeling overweight, excessive dieting or exercise to lose weight, overuse of laxatives, binging/purging behaviors, and amenorrhea. SOCIAL HISTORY : The patient was born in [place], [place] and was raised there by her mother and father. She has abrother and a sister. She describes her childhood as dysfunctional because her father left the family and her mother struggled to support them. She graduated HS and took some college classes. Marital Status: for the past 13 years. She has five adult children. Orthodoxy: None. Housing: Lives in an apartment alone. Work: On disability at present. 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 Legal: Denies any h/o legal issues. Trauma: Admits to h/o neglect in childhood. PSYCHIATRIC HISTORY Diagnosis: Bipolar disorder, neurocognitive disorder. Outpatient treatment: The patient is currently linked with an outpatient psychiatrist. She is also linked with an individual therapist. Residential treatment: Denies any h/o residential admissions. Inpatient admissions: Has been admitted to a psychiatric unit multiple times in the past, most recently a few weeks or months ago. Suicidal self-directed violence: Denies any h/o suicide attempts. Non-suicidal self-directed violence: Denies any h/o self-harming behaviors. Violence history: Denies any h/o violence. Psychotropic medication trials: Currently on Wellbutrin XL, Prozac, Trileptal, prazosin, Seroquel, and Hydroxyzine SUBSTANCE USE HISTORY Alcohol: Denies any recent use. She drank socially in the remote past at times. Illicit Substances: Denies any current or past illicit drug use. Denies any h/o IVDU. Nicotine: Smokes cigarettes - 10 cigarettes per day x many years. Caffeine: Drinks 2 servings of coffee per day. MEDICAL HISTORY Non-psychiatric medical history: Medical History[1] Current medications: MEDSSCHEDULED[2] ALLERGIES: Current Allergies[3] FAMILY HISTORY: Family History[4] MSE: Appearance: AOx4. Appears stated age, well groomed. Pleasant and cooperative. Adequate eye contact.No psychomotor agitation or retardation. No evidence of EPS. Muscle tone/station: WNL. Orientation: To person, place, time, and situation. Attention and Concentration: No deficits in attention and concentration. Speech: Normal rate, rhythm, volume, and tone. Mood: It's fine. Affect: Euthymic with access to full range, mood congruent. No lability noted. Thought Process: Coherent, linear, logical, and goal-directed. No FOI or MODESTO. No thought blocking. Thought Content: Denies suicidal/homicidal ideation. Denies auditory/visual hallucinations. No delusions. No paranoia. Perception/associations: Denies hallucinations, somatic complaints, or tactile disturbances Suicidal Ideations: Pt denies SI, intent, or plan. Low acute risk. Currently is future oriented, motivated for treatment, and compliant with medications. Homicidal Ideations: Pt denies HI, intent, or plan. Low acute risk. No history of violence. No access to firearms. Behavior: No abnormal behavior during interview. Fund of Knowledge: Appropriate for age and level of education Intellect/Memory: Estimated as average based on interview. Immediate, recent, and remote memory is grossly intact. Language: No deficits Judgment/Insight: fair at present. Musculoskeletal Exam: Movement: [x]normal []abnormal [-]dyskinesias [-]tremors [-]tics Station: [x]upright []hyperflexed/stooped []hyperextended Muscle strength [x]appears normal [-]appears abnormal Muscle tone: [x]normal [-]muscle rigidity LABS: Admission on 03/31/2025 Component Date Value Ref Range Status Ventricular Rate ECG 03/31/2025 73 BPM Final Atrial Rate 03/31/2025 73 BPM Final P-R Interval 03/31/2025 194 ms Final QRS Duration 03/31/2025 90 ms Final Q-T Interval 03/31/2025 436 ms Final QTc 03/31/2025 480 ms Final P Wave [place] 03/31/2025 39 degrees Final R [place] 03/31/2025 77 degrees Final T [place] 03/31/2025 69 degrees Final ECG Interpretation 03/31/2025 Final Value:Normal sinus rhythm Normal ECG No previous ECGs available Confirmed by Roger MCKAY JAMES ([id number]) on 04/01/2025 12:30:35 PM Sodium 03/31/2025 136 133 - 145 mmol/L Final Potassium 03/31/2025 4.4 3.5 - 5.5 mmol/L Final Chloride 03/31/2025 105 96 - 110 mmol/L Final CO2 03/31/2025 28 21 - 32 mmol/L Final Anion Gap 03/31/2025 3 3 - 11 Final Glucose 03/31/2025 99 70 - 100 mg/dL Final BUN 03/31/2025 20 5 - 25 mg/dL Final Creatinine 03/31/2025 1.07 0.50 - 1.10 mg/dL Final eGFR 03/31/2025 59 (L) >=60 mL/min/1.73m2 Final Calculation based on the Chronic Kidney Disease Epidemiology Collaboration (CKD- EPI) equation refitwithout adjustment for race. BUN/Creatinine Ratio 03/31/2025 18.7 Final Calcium 03/31/2025 9.4 8.5 - 10.5 mg/dL Final Magnesium 03/31/2025 1.9 1.9 - 2.6 mg/dL Final WBC 03/31/2025 13.9 (H) 4.8 - 10.8 K/mcL Final RBC 03/31/2025 4.70 3.80 - 4.80 M/mcL Final Hemoglobin 03/31/2025 14.7 11.5 - 16.0 g/dL Final Hematocrit 03/31/2025 44.9 35.0 - 47.0 % Final MCV 03/31/2025 95.9 79.0 - 98.0 FL Final MCH 03/31/2025 31.4 27.0 - 32.0 pcg Final MCHC 03/31/2025 32.7 32.0 - 37.0 g/dL Final RDW 03/31/2025 13.3 11.0 - 15.0 % Final Platelets 03/31/2025 372 130 - 400 K/mcL Final MPV 03/31/2025 10.0 7.0 - 11.0 FL Final NRBC 03/31/2025 0.0 <1.0 % Final NRBC Absolute 03/31/2025 0.00 <0.10 K/mcL Final Neutrophils Relative 03/31/2025 75.4 % Final Lymphocytes Relative 03/31/2025 14.5 % Final Monocytes Relative 03/31/2025 8.4 % Final Eosinophils Relative 03/31/2025 0.8 % Final Basophils Relative 03/31/2025 0.5 % Final Immature Granulocytes Relative 03/31/2025 0.4 % Final Neutrophils Absolute 03/31/2025 10.49 (H) 1.50 - 7.00 K/mcL Final Lymphocytes Absolute 03/31/2025 2.01 1.00 - 5.00 K/mcL Final Monocytes Absolute 03/31/2025 1.17 (H) 0.20 - 1.00 K/mcL Final Eosinophils Absolute 03/31/2025 0.11 0.00 - 0.50 K/mcL Final Basophils Absolute 03/31/2025 0.07 0.00 - 0.20 K/mcL Final Immature Granulocytes Absolute 03/31/2025 0.06 (H) 0.00 - 0.03 K/mcL Final Specific [place] Urine 04/01/2025 1.024 1.003 - 1.030 Final pH, Urine 04/01/2025 7.0 5.0 - 8.0 pH Final Leukocytes, Urine 04/01/2025 Small (A) Negative Final Nitrite, Urine 04/01/2025 Negative Negative Final Protein, Urine 04/01/2025 Trace <=Trace mg/dL Final Glucose, Urine 04/01/2025 Negative Negative mg/dL Final Ketones, Urine 04/01/2025 Trace (A) Negative mg/dL Final Urobilinogen, Urine 04/01/2025 1.0 0.2 - 1.0 mg/dL Final Bilirubin, Urine 04/01/2025 Negative Negative Final Blood, Urine 04/01/2025 Small (A) Negative Final RBC, Urine 04/01/2025 37.9 (H) 0 - 4 /HPF Final WBC, Urine 04/01/2025 2.9 0 - 4 /HPF Final Squamous Epithelial, Urine 04/01/2025 79 (H) 0 - 60 /LPF Final Bacteria, Urine 04/01/2025 Negative Negative /HPF Final Hyaline Casts, Urine 04/01/2025 2.0 0 - 3 /LPF Final Extra Tube 04/01/2025 Hold for add-ons. Final Auto resulted. Glucose POCT 03/31/2025 110 (H) 70 - 100 mg/dL Final Culture, Urine 04/01/2025 10,000-49,000 CFU/mL Proteus species (A) Preliminary Glucose POCT 04/01/2025 89 70 - 100 mg/dL Final VITALS: BP: 120/77 (04/02 633) Heart Rate: 63 (04/02 633) Heart Rate Source: Monitor (04/01 2017) Temp: 36.4 ??C (97.5 ??F) (04/02 633) Temp Source: Oral (04/01 2017) SpO2: 92 % (04/02 633) ASSESSMENT: Lucila Cruz is a 64 y.o. 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 Psychiatry was consulted for evaluation of the patient's psychotropic medications d/t concern for polypharmacy. DSM-5 DIAGNOSIS: Bipolar disorder, unspecified Major vs minor neurocognitive disorder (per chart) Nicotine use disorder DM, HLD, DVT, HTN, hearing loss, urinary incontinence, recurrent UTI, obesity, paroxysmal atrial fibrillation, plantar fascial fibromatosis, OA, and JOSEPH In ED following multiple falls TREATMENT PLAN: Pt has verbalized understanding and given consent/agreement with medications and plan offered. LEVEL OF CARE: Continue current level of treatment. RECOMMENDATIONS: Of note, the patient does not meet criteria for psychiatric admission to hospital at present. She does not meet criteria for a Section 12, and she is not willing to go to a psychiatric unit voluntarily at this time. Also of note, the patient retains medical decision-making capacity at this time and can make her own medical decisions. The u/s did not uncover any s/s of dementia during interview today. The patient reports that most of her falls have been within the past year, and they started around the time when she started taking prazosin for nightmares. Taper and discontinue prazosin - 2 mg PO qHS x 7 days, then 1 mg PO qHS x 7 days, then discontinue. Recommend patient to work with outpatient provider to taper and discontinue Prozac and then Wellbutrin XL, once the patient has tapered and discontinued prazosin. Continue Trileptal 600 mg PO BID for mood stability. Discussed/Reviewed potential adverse effects of Trileptal including rash/Francisco-Lux syndrome, leukopenia, thrombocytopenia, hyponatremia, andmore common side effects such as somnolence, dizziness, diplopia, GI upset, LFT elevations, impaired cognition and coordination. Continue Seroquel 400 mg PO qHS for mood stability and sleep. Discussed/Reviewed mechanism of action of antipsychotics, expected benefits and time to response, common SEs including sedation, orthostatic hypotension, glucose dysregulation, dyslipidemias, EPS side effects, and weight gain. Discontinue Hydroxyzine d/t concern for drug/drug interaction with Seroquel. Limit Ativan as much as possible. Recommend patient to f/u with outpatient psychiatrist early next week. The u/s attempted to call the patient's daughter (Jayda, ) per the patient's request, but there was no answer. Medication Education: Risks, benefits, alternatives, and potential side effects were discussed withthe patient. Patient voiced understanding and agreed with medication regimen described above. LABS: Reviewed and discussed most recent labs results. MEDICATION CONTRACT: Patient agreed to take medication only as prescribed and acknowledges that services may be terminated if prescription abuse is observed. SAFETY PLAN: Patient is to alert team if symptoms worsen. Team will monitor for development of suicidal ideations or an acute medication reaction. - Call 911 or present to nearest Emergency Room in case of crisis / suicidal thoughts upon discharge. EDUCATION/CONSENT: Discussed and explained all diagnoses including differential diagnosis and treatment options. Discussed risks, benefits, potential side effects, contraindications, potential drug-drug interactions, alternatives to current medications and medication allergies as noted above. Discussed continuing to monitor for side effects and treatment efficacy prospectively and delineated patient's involvement and responsibility in monitoring for side effects and efficacy. [place] expressed understanding of these recommendations. BARRIERS TO LEARNING: Patient demonstrates a readiness to learn. Patient verbalizes understanding and agrees to plan. No barriers to communication noted. MEDICATION RECONCILIATION: Medications were reviewed and reconciled with the patient. PREVENTATIVE RECOMMENDATIONS: Preventative Health Education Counseling: discussed proper diet/nutrition, exercise, and sleep hygiene. The patient was encouraged to avoid nicotine, alcohol and illicitdrugs at all times. The patient was made aware that records from the /s can be sent to his/her PCP at any time that he/she requests. [1] Past Medical History: Diagnosis Date A-fib ([facility] V24, [facility] V28) Abdominal pain 07/30/2024 CHF (congestive heart failure) ([facility] V24, [facility] V28) Chronic kidney disease COPD (chronic obstructive pulmonary disease) ([facility] V24, [facility] V28) DVT of proximal leg (deep vein thrombosis) ([facility] V24, [facility] V28) History of CVA (cerebrovascular accident) History of deep vein thrombosis History of esophageal stricture History of falling History of pulmonary embolism Hyperlipidemia Hypertension Leukocytosis (leucocytosis) 01/29/2024 Migraine Oral lesion 07/30/2024 Pneumonia of right lower lobe due to infectious organism 11/21/2024 Pulmonary embolism ([facility] V24, [facility] V28) Sleep apnea Wears dentures [2] apixaban, 5 mg, oral, BID buPROPion XL, 300 mg, oral, Daily FLUoxetine, 40 mg, oral, Daily methenamine hippurate, 1 g, oral, Daily metoprolol succinate, 25 mg, oral, Daily OXcarbazepine, 600 mg, oral, BID prazosin, 3 mg, oral, Nightly pregabalin, 200 mg, oral, BID QUEtiapine, 400 mg, oral, Nightly [3] Allergies Allergen Reactions Ciprofloxacin Other Skin peeled off back Other reaction(s): OTHER, Rash Skin peeled off back Penicillins Rash remote Sertraline [4] Family History Problem Relation Name Age of Onset Breast cancer Mother Lung cancer Kidney failure Father Lung cancer documented in this encounter Plan of Treatment Upcoming Encounters Date Type Department Care Team (Late st Contact Info) Description 04/09/2025 11:30 AM EDT Clinical Support Kaitlynn NICOLE [place] [address] [place] [phone] 04/13/2025 PACE Attendance/Day [place] [facility] [place] [facility] [address] [place] [phone] 04/13/2025 7:30 AM EDT PACE Home Care / PACE Home Visit [facility]ait[facility]nn NICO[facility] [address] [place] [phone] Cheryle Pryor 04/13/2025 9:00 AM EDT PACE Attendance/Day Center [facility]ait[facility] NICO[facility] [place] [facility] [address] [place] [phone] 04/14/2025 7:30 AM EDT PACE Home Care / PACE Home Visit [facility]nn NICO[facility] [place] [facility] [address] [place] [phone] Cheryle Pryor 04/14/2025 10:30 AM EDT PACE Home Care / PACE Home Visit [facility]ait[facility]nn NICO[facility] [place] [facility] [address] [place] [phone] Cheryle Pryor 04/14/2025 1:00 PM EDT Clinical Support Lung Screening Program - [address] [place] [address] 04/15/2025 7:30 AM EDT PACE Home Care / P[facility] Home Visit [facility]ait[facility]nn NICO[facility] [place] [facility] [address] [place] [phone] Cheryle Pryor 04/15/2025 9:00 AM EDT [facility] Att[facility] [facility] [place] [facility] [address] [place] [phone] 04/16/2025 7:30 AM EDT P[facility] Home Care / [facility] [place] [facility] [place] [facility] [address] [place] [phone] Cheryle Pryor 04/17/2025 7:30 AM EDT P[facility] Home Care / [place] [place] [facility] [place] [facility] [address] [place] [phone] Shawna Lebron 04/17/2025 10:30 AM EDT P[facility] Home Care / [place] [place] [facility] [place] [facility] [address] [place] [phone] Jhoana Grijalva 04/18/2025 7:30 AM EDT [facility] Home Care / [facility] [place] [facility] [place] [facility] [address] [place] [phone] Jhoana Grijalva 04/19/2025 7:30 AM EDT [facility] Home Care / [facility] [place] [facility] [place] [facility] [address] [place] [phone] Jhoana Grijalva 04/20/2025 [facility] Att[place] [facility] [place] [facility] [address] [place] [phone] 04/20/2025 7:30 AM EDT [facility] Home [facility] / [facility] [place] [facility] [place] [facility] [address] [place] [phone] Cheryle Pryor 04/20/2025 9:00 AM EDT [facility] Att[place] [facility] [place] [facility] [address] [place] [phone] 04/21/2025 7:30 AM EDT [facility] Home Care / [facility] [place] [facility] [place] [facility] [address] [place] [address] Cheryle Pryor 04/21/2025 10:30 AM EDT [facility] Home [facility] / [facility] [place] [facility] [place] [facility] [address] [place] [phone] Cheryle Pryor 04/22/2025 7:30 AM EDT [facility] Home [facility] / [place] [place] [facility] [place] [facility] [address] [place] [phone] Cheryle Pryor 04/22/2025 9:00 AM EDT [facility] [place] [facility] [place] [facility] [address] [place] [phone] 04/23/2025 7:30 AM EDT [facility] Home Care / [facility] [place] [facility] [place] [facility] [address] [place] [phone] Cheryle Pryor 04/24/2025 11:30 AM EDT [facility] Home [facility] / [facility] [place] [facility] [place] [facility] [address] [place] [phone] Juanito Wasserman 04/25/2025 7:30 AM EDT [facility] Home [facility] / [facility] [place] [facility] [place] [facility] [address] [place] [phone] Cheryle Pryor 04/26/2025 7:30 AM EST [facility] Home [facility] / [facility] [place] [facility] [place] [facility] [address] [place] [phone] Cheryle Pryor 04/27/2025 [facility] Att[place] [facility] [place] [facility] [address] [place] [address] 04/27/2025 7:30 AM EST [facility] Home [facility] / [facility] [place] [facility] [place] [facility] [address] [place] [phone] Cheryle Pryor 04/27/2025 9:00 AM EST [facility] Attend[facility] [facility] [place] [facility] [address] [place] [phone] 04/28/2025 7:30 AM EST [facility] Home Care / [facility] [place] [facility] [place] [facility] [address] [place] [phone] Cheryle Pryor 04/28/2025 10:30 AM EST [facility] Home [facility] / [facility] [place] [facility] [place] [facility] [address] [place] [phone] Cheryle Pryor 04/29/2025 7:30 AM EST [facility] Home [facility] / [facility] [place] [facility] [place] [facility] [address] [place] [phone] Cheryle Pryor 04/29/2025 9:00 AM EST [facility] [facility] [place] [facility] [address] [place] [phone] 04/30/2025 7:30 AM EST [facility] Home [facility] / [facility] [place] [facility] [place] [facility] [address] [place] [phone] Cheryle Pryor 05/01/2025 7:30 AM EST [facility] Home [facility] / [facility] [place] [facility] [place] [facility] [address] [place] [phone] Shawna Lebron 05/01/2025 10:30 AM EST [facility] Home [facility] / [facility] [place] [facility] [place] [facility] [address] [place] [phone] Jhoana Grijalva 05/02/2025 7:30 AM EST [facility] Home [facility] / [facility] [place] [facility] [place] [facility] [address] [place] [phone] Jhoana Grijalva 05/03/2025 7:30 AM EST [facility] Home [facility] / [facility] [place] [facility] [place] [facility] [address] [place] [address] Jhoana Grijalva 05/04/2025 [facility] Att[facility] [facility] [place] [facility] [address] [place] [phone] 05/04/2025 7:30 AM EST [facility] Home [facility] / [facility] [place] [facility] [place] [facility] [address] [place] [phone] Cheryle Pryor 05/04/2025 9:00 AM EST [facility] Att[facility] [facility] [place] [facility] [address] [place] [phone] 05/05/2025 7:30 AM EST [facility] Home Care / [facility] [place] [facility] [place] [facility] [address] [place] [phone] Cheryle Pryor 05/05/2025 10:30 AM EST [facility] Home Care / [facility] [place] [facility] [address] [place] [phone] Cheryle Pryor 05/06/2025 7:30 AM EST [facility] Home Care / [facility] [place] [facility] [address] [place] [phone] Cheryle Pryor 05/06/2025 9:00 AM EST [facility] Att[facility] [facility] [place] [facility] [address] [place] [phone] 05/07/2025 7:30 AM EST [facility] Home [facility] / [facility] [place] [facility] [place] [facility] [address] [place] [phone] Cheryle Pryor 05/07/2025 9:00 AM EST Appointment [facility] [address] [place] [address] Rambo Barlow MD [address] [address] 05/08/2025 7:30 AM EST [facility] Home Care / [facility] [place] [facility] [place] [facility] [address] [place] [phone] Shawna Lebron 05/08/2025 10:30 AM EST [facility] Home [facility] / [facility] [place] [facility] [place] [facility] [address] [place] [phone] Jhoana Grijalva 05/09/2025 7:30 AM EST [facility] Home [facility] / [facility] [place] [facility] [place] [facility] [address] [place] [phone] Cheryle Pryor 05/10/2025 7:30 AM EST [facility] Home [facility] / [facility] [place] [facility] [place] [facility] [address] [place] [phone] Cheryle Pryor 05/11/2025 [facility] Attend[place] [facility] [place] [facility] [address] [place] [phone] 05/11/2025 7:30 AM EST [facility] Home [facility] / [facility] [place] [facility] [place] [facility] [address] [place] [phone] Cheryle Pryor 05/11/2025 9:00 AM EST [facility] Att[facility] [facility] [place] [facility] [address] [place] [phone] 05/12/2025 7:30 AM EST [facility] Home [facility] / [facility] [place] [facility] [place] [facility] [address] [place] [phone] Cheryle Pryor 05/12/2025 10:30 AM EST [facility] Home [facility] / [facility] [place] [facility] [place] [facility] [address] [place] [phone] Cheryle Pryor 05/13/2025 7:30 AM EST [facility] Home Care / [facility] [place] [facility] [place] [facility] [address] [place] [phone] Cheryle Pryor 05/13/2025 9:00 AM EST [facility] Att[facility] [facility] [place] [facility] [address] [place] [address] 05/14/2025 7:30 AM EST [facility] Home Care / [facility] [place] [facility] [place] [facility] [address] [place] [phone] Cheryle Pryor 05/15/2025 7:30 AM EST [facility] Home Care / [facility] [place] [facility] [place] [facility] [address] [place] [phone] Shawna Lebron 05/15/2025 10:30 AM EST [facility] Home Care / [facility] [place] [facility] [place] [facility] [address] [place] [phone] Jhoana Grijalva 05/16/2025 7:30 AM EST [facility] Home Care / [facility] [place] [facility] [place] [facility] [address] [place] [phone] Jhoana Grijalva 05/17/2025 7:30 AM EST [facility] Home Care / [facility] [place] [facility] [place] [facility] [address] [place] [phone] Jhoana Grijalva 05/18/2025 [facility] Att[facility] [facility] [place] [facility] [address] [place] [address] 05/18/2025 7:30 AM EST [facility] Home [facility] / [facility] [place] [facility] [place] [facility] [address] [place] [phone] Cheryle Pryor 05/18/2025 9:00 AM EST [facility] Att[facility] [facility] [place] [facility] [address] [place] [phone] 05/19/2025 7:30 AM EST [facility] Home [facility] / [facility] [place] [facility] [place] [facility] [address] [place] [phone] Cheryle Pryor 05/19/2025 10:30 AM EST [facility] Home [facility] / [facility] [place] [facility] [place] [facility] [address] [place] [phone] Cheryle Pryor 05/20/2025 7:30 AM EST [facility] Home [facility] / [facility] [place] [facility] [place] [facility] [address] [place] [phone] Cheryle Pryor 05/20/2025 9:00 AM EST [facility] Att[facility] [facility] [place] [facility] [address] [place] [address] 05/21/2025 7:30 AM EST [facility] Home [facility] / [facility] [place] [facility] [place] [facility] [address] [place] [phone] Cheryle Pryor 05/22/2025 7:30 AM EST [facility] Home [facility] [place] [facility] Services [address] [place] [phone] Shawna Lebron 05/22/2025 10:30 AM EST [facility] / [place] [facility] [place] [facility] [address] [place] [phone] Jhoana Grijalva 05/23/2025 7:30 AM EST [facility] Home [facility] [place] [facility] [place] [facility] [address] [place] [phone] Cheryle Pryor 05/24/2025 7:30 AM EST [facility] Home [facility] [place] [facility] [place] [facility] [address] [place] [phone] Cheryle Pryor 05/25/2025 [place] Att[place] [facility] [place] [facility] [address] [place] [phone] 05/25/2025 7:30 AM EST [facility] Home [facility] [place] [facility] [place] [facility] [address] [place] [phone] Cheryle Pryor 05/25/2025 9:00 AM EST [place] [facility] [place] [facility] [address] [place] [phone] 05/26/2025 7:30 AM EST [facility] Home [facility] [place] [facility] [place] [facility] [address] [place] [phone] Cheryle Pryor 05/26/2025 10:30 AM EST [facility] Home [facility] [place] [facility] [place] [facility] [address] [place] [phone] Cheryle Pryor 05/27/2025 7:30 AM EST [facility] Home [facility] [place] [facility] [place] [facility] [address] [place] [phone] Cheryle Pryor 05/27/2025 9:00 AM EST [place] [facility] [place] [facility] [address] [place] [phone] 05/28/2025 7:30 AM EST [facility] Home [facility] [place] [facility] [place] [facility] [address] [place] [phone] Cheryle Pryor 05/29/2025 7:30 AM EST [facility] Home [facility] [place] [facility] [place] [facility] [address] [place] [address] Shawna Lebron 05/29/2025 10:30 AM EST [facility] [place] [facility] [place] [facility] [address] [place] [address] Jhoana Grijalva 05/30/2025 7:30 AM EST [facility] Home [facility] [place] [facility] [place] [facility] [address] [place] [phone] Jhoana Grijalva 05/31/2025 7:30 AM EST [facility] [place] [facility] [place] [facility] [address] [place] [phone] Jhoana Grijalva 06/01/2025 [place] [facility] [place] [facility] [address] [place] [phone] 06/01/2025 7:30 AM EST [facility] Home [facility] [place] [facility] [place] [facility] [address] [place] [phone] Cheryle Pryor 06/01/2025 9:00 AM EST [place] [facility] [place] [facility] [address] [place] [phone] 06/02/2025 7:30 AM EST [facility] Home [facility] [place] [facility] [place] [facility] [address] [place] [phone] Cheryle Pryor 06/02/2025 10:30 AM EST [facility] Home [facility] [place] [facility] [place] [facility] [address] [place] [phone] Cheryle Pryor 06/03/2025 7:30 AM EST [facility] Home [facility] [place] [facility] [place] [facility] [address] [place] [phone] Cheryle Pryor 06/03/2025 9:00 AM EST [place] [facility] [place] [facility] [address] [place] [address] 06/04/2025 7:30 AM EST [facility] Home [facility] [place] [facility] [place] [facility] [address] [place] [address] Cheryle Pryor 06/05/2025 7:30 AM EST [facility] Home [facility] [place] [facility] [place] [facility] [address] [place] [address] Shawna Lebron 06/05/2025 10:30 AM EST [facility] Home [facility] [place] [facility] [place] [facility] [address] [place] [phone] Jhoana Grijalva 06/06/2025 7:30 AM EST [facility] [place] [facility] [place] [facility] [address] [place] [phone] Cheryle Pryor 06/07/2025 7:30 AM EST [facility] [place] [facility] [place] [facility] [address] [place] [phone] Cheryle Pryor 06/08/2025 [place] [facility] [place] [facility] [address] [place] [phone] 06/08/2025 9:00 AM EST [place] [facility] [place] [facility] [address] [place] [address] 06/10/2025 9:00 AM EST [place] [facility] [place] [facility] [facility] [address] [place] [address] 06/15/2025 [place] [facility] [place] [facility] [address] [place] [address] 06/15/2025 9:00 AM EST [place] Att[place] [facility] [place] [facility] [address] [place] [phone] 06/17/2025 9:00 AM EST [place] [facility] [place] [facility] [facility] [address] [place] [phone] 06/22/2025 [place] [facility] [place] [facility] [facility] [address] [place] [phone] 06/22/2025 9:00 AM EST [place] [facility] [place] [facility] [address] [place] [phone] 06/24/2025 9:00 AM EST [place] [facility] [place] [facility] [facility] [address] [place] [phone] 06/29/2025 [facility] [place] [facility] [address] [place] [phone] 06/29/2025 9:00 AM EST [facility] [facility] [place] [facility] [facility] [address] [place] [phone] 07/01/2025 9:00 AM EST [place] [facility] [place] [facility] [address] [place] [phone] 07/06/2025 [place] [facility] [place] [facility] [facility] [address] [place] [phone] 07/06/2025 9:00 AM EST [place] [facility] [place] [facility] [address] [place] [phone] 2025 9:00 AM EST [facility] [facility] [place] [facility] [facility] [address] [place] [phone] 07/13/2025 [place] [facility] [place] [facility] [address] [place] [phone] 07/13/2025 9:00 AM EST [place] [facility] [place] [facility] [address] [place] [address] 07/15/2025 9:00 AM EST [facility] [facility] [place] [facility] [address] [place] [address] 07/20/2025 [facility] [facility] [facility] [place] [facility] [facility] [address] [place] [address] 07/20/2025 9:00 AM EST [facility] [facility] [place] [facility] [facility] [address] [place] [phone] 07/22/2025 9:00 AM EST [facility] [facility] [place] [facility] [address] [place] [phone] 07/27/2025 [facility] [place] [facility] [address] [place] [phone] 07/27/2025 9:00 AM EST [facility] [facility] [place] [facility] [address] [place] [phone] 07/29/2025 9:00 AM EST [facility] [facility] [place] [facility] [address] [place] [phone] 08/03/2025 [place] [facility] [place] [facility] [facility] [address] [place] [phone] 08/03/2025 9:00 AM EST [facility] [facility] [place] [facility] [address] [place] [phone] 08/05/2025 9:00 AM EST [facility] [facility] [place] [facility] [address] [place] [phone] 08/10/2025 [facility] [facility] [place] [facility] [facility] [address] [place] [phone] 08/12/2025 9:00 AM EST [facility] [facility] [place] [facility] [address] [place] [address] 08/17/2025 [facility] [facility] [place] [facility] [address] [place] [phone] 08/19/2025 9:00 AM EST [facility] [facility] [place] [facility] [facility] [address] [place] [address] 08/24/2025 [facility] [facility] [place] [facility] [address] [place] [phone] 08/26/2025 9:00 AM EST [facility] [facility] [place] [facility] [address] [place] [phone] 08/31/2025 [facility] [facility] [place] [facility] [address] [place] [phone] 09/02/2025 9:00 AM EDT [facility] [place] [address] [place] [phone] 09/07/2025 [facility] Att[facility] [facility] [place] [facility] [address] [place] [phone] 09/09/2025 9:00 AM EDT [facility] [facility] [place] [facility] [address] [place] [phone] 09/14/2025 [place] [facility] [place] [facility] [address] [place] [phone] 09/16/2025 9:00 AM EDT [facility] [facility] [facility] [place] [facility] [address] [place] [phone] 09/21/2025 [place] [facility] [place] [facility] [facility] [address] [place] [phone] 09/23/2025 9:00 AM EDT [facility] [facility] [place] [facility] [address] [place] [address] 09/28/2025 [facility] [facility] [place] [facility] [facility] [address] [place] [address] 09/30/2025 9:00 AM EDT [facility] [facility] [place] [facility] [facility] [address] [place] [address] 10/05/2025 [facility] [facility] [place] [facility] [address] [place] [phone] 10/07/2025 9:00 AM EDT [facility] [place] [facility] [address] [place] [phone] 10/12/2025 [facility] [place] [facility] [address] [place] [phone] 10/14/2025 9:00 AM EDT [facility] [place] [facility] [address] [place] [phone] 10/19/2025 [facility] [facility] [place] [facility] [address] [place] [phone] 10/21/2025 9:00 AM EDT [facility] [facility] [place] [facility] [address] [place] [phone] 10/26/2025 [place] [facility] [place] [facility] [address] [place] [phone] 10/28/2025 9:00 AM EDT [facility] [facility] [facility] [place] [facility] [address] [place] [phone] 11/02/2025 [facility] [facility] [place] [facility] [address] [place] [phone] 11/04/2025 9:00 AM EDT [facility] [facility] [place] [facility] [address] [place] [phone] 11/09/2025 [facility] [facility] [facility] [place] [facility] [address] [place] [phone] 11/11/2025 9:00 AM EDT [facility] [place] [facility] [address] [place] [phone] 11/16/2025 [facility] [facility] [facility] [place] [facility] [address] [place] [phone] 11/18/2025 9:00 AM EDT [facility] [place] [address] [place] [phone] 11/23/2025 [facility] [facility] [place] [facility] [address] [place] [phone] 11/25/2025 9:00 AM EDT [facility] [place] [facility] [address] [place] [phone] 11/30/2025 [facility] [facility] [place] [facility] [address] [place] [phone] 12/02/2025 9:00 AM EDT [facility] [facility] [facility] [place] [address] [place] [phone] 12/07/2025 [place] [facility] [place] [facility] [address] [place] [phone] 12/09/2025 9:00 AM EDT [facility] [facility] [facility] [place] [facility] [address] [place] [phone] 12/14/2025 [facility] [facility] [place] [facility] [address] [place] [address] [place] [phone] 12/16/2025 9:00 AM EDT [facility] [place] [facility] [facility] [address] [place] [address] 12/21/2025 [facility] [place] [facility] [address] [place] [phone] 12/23/2025 9:00 AM EDT [facility] [place] [facility] [address] [place] [address] 12/28/2025 [facility] [facility] [place] [facility] [address] [place] [phone] 12/30/2025 9:00 AM EDT [facility] [place] [facility] [address] [place] [phone] 01/04/2026 [facility] [facility] [place] [facility] [address] [place] [phone] 01/06/2026 9:00 AM EDT [facility] [place] [facility] [address] [place] [phone] 01/11/2026 [facility] [place] [facility] [address] [place] [phone] 01/13/2026 9:00 AM EDT [facility] [place] [facility] [address] [place] [address] 01/18/2026 [facility] [facility] [facility] [place] [facility] [address] [place] [phone] 01/20/2026 9:00 AM EDT [facility] [facility] [place] [facility] [address] [place] [phone] 01/25/2026 [facility] Att[facility] [facility] [place] [facility] [facility] [address] [place] [address] 01/27/2026 9:00 AM EDT [facility] [place] [facility] [address] [place] [address] 02/01/2026 [facility] [facility] [place] [facility] [address] [place] [phone] 02/03/2026 9:00 AM EDT [facility] [place] [facility] [address] [place] [address] 02/08/2026 [facility] [place] [facility] [address] [place] [address] 02/10/2026 9:00 AM EDT [facility] [place] [facility] [address] [place] [phone] 02/15/2026 [facility] [place] [facility] [address] [place] [phone] 02/17/2026 9:00 AM EDT [facility] [place] [facility] [address] [place] [phone] 02/22/2026 [facility] [place] [facility] [address] [place] [phone] 02/24/2026 9:00 AM EDT [facility] [place] [facility] [address] [place] [phone] 03/03/2026 9:00 AM EDT [facility] [place] [facility] [address] [place] [address] 03/10/2026 9:00 AM EDT [facility] [place] [facility] [address] [place] [phone] 03/17/2026 9:00 AM EDT [facility] [place] [facility] [address] [place] [address] 03/24/2026 9:00 AM EDT [facility] [place] [facility] [address] [place] [phone] 03/31/2026 9:00 AM EDT [facility] [place] [facility] [address] [place] [address] 04/07/2026 9:00 AM EDT [facility] [place] [facility] [address] [place] [phone] 04/14/2026 9:00 AM EDT [facility] [place] [facility] [address] [place] [phone] 04/21/2026 9:00 AM EDT [facility] [place] [facility] [address] [place] [phone] documented as of this encounter Procedures Procedure Name Priority Date/Time Associated Diagnosis Comments ECG ANNOTATED 04/08/2025 CBC WITH AUTO DIFFERENTIAL Routine 04/07/2025 8:04 AM EDT CBC AND DIFFERENTIAL Routine 04/07/2025 8:04 AM EDT MAGNESIUM Routine 04/07/2025 8:04 AM EDT BASIC METABOLIC PANEL Routine 04/07/2025 8:04 AM EDT URINALYSIS WITH REFLEX MICROSCOPIC STAT 04/06/2025 9:02 AM EDT URINALYSIS WITH REFLEX MICROSCOPIC AND CULTURE STAT 04/06/2025 9:02 AM EDT FERNANDEZ URINE CULTURE TUBE STAT 04/06/2025 9:02 AM EDT URINALYSIS WITH REFLEX MICROSCOPIC STAT 04/06/2025 9:02 AM EDT URINALYSIS WITH REFLEX MICROSCOPIC AND CULTURE STAT 04/06/2025 9:02 AM EDT CULTURE URINE STAT 04/06/2025 9:02 AM EDT TROPONIN I HIGH SENSITIVITY STAT 04/06/2025 8:24 AM EDT CBC WITH AUTO DIFFERENTIAL STAT 04/06/2025 8:24 AM EDT CBC AND DIFFERENTIAL STAT 04/06/2025 8:24 AM EDT B-TYPE NATRIURETIC PEPTIDE STAT 04/06/2025 8:24 AM EDT COMPREHENSIVE METABOLIC PANEL STAT 04/06/2025 8:24 AM EDT POCT GLUCOSE BLOOD Routine 04/01/2025 8: 46 AM EDT XR KNEE 4+ VIEWS RIGHT STAT 2:[address] THORACIC SPINE WO CONTRAST STAT 04/01/2025 2:[address] CERVICAL SPINE WO CONTRAST STAT 04/01/2025 2:[address] HEAD WO CONTRAST STAT 04/01/2025 2 :23 AM EDT URINALYSIS WITH REFLEX MICROSCOPIC AND CULTURE STAT 04/01/2025 12:02 AM EDT FERNANDEZ URINE CULTURE TUBE STAT 04/01/2025 12:02 AM EDT URINALYSIS WITH REFLEX MICROSCOPIC AND CULTURE STAT 04/01/2025 12:02 AM EDT CULTURE URINE STAT 04/01/2025 12:02 AM EDT CBC WITH AUTO DIFFERENTIAL STAT 03/31/2025 10:20 PM EDT CBC AND DIFFERENTIAL STAT 03/31/2025 10:20 PM EDT MAGNESIUM STAT 03/31/2025 10:20 PM EDT BASIC METABOLIC PANEL STAT 03/31/2025 10:20 PM EDT POCT GLUCOSE BLOOD Routine 03/31/2025 10 :15 PM EDT ECG 12-LEAD STAT 03/31/2025 10:10 PM EDT documented in this encounter Results * ECG-Annotated (04/08/2025) us Provider Onbase MD ECG ORDERABLES Final Result * Magnesium (04/07/2025 8:04 AM EDT) [facility] Magnesium 2.1 1.9 - 2.6 mg/dL LAB CHEMISTRY METHOD 04/07/2025 9:04 AM EDT [facility] Blood Venous blood specimen / Unknown Venipuncture / Unknown 04/07/2025 8:04 AM EDT 04/07/2025 8:18 AM EDT us Ana Maria Gardner NP LAB BLOOD ORDERABLES Final Resul t [facility] [address] [place] [address], [place] [phone] * Basic metabolic panel (04/07/2025 8:04 AM EDT) [facility] Sodium 134 133 - 145 mmol/L LAB CHEMISTRY METHOD 04/07/2025 9:04 AM EDT [facility] Potassium 3.9 3.5 - 5.5 mmol/L LAB CHEMISTRY METHOD 04/07/2025 9:04 AM EDT [facility] Chloride 100 96 - 110 mmol/L LAB CHEMISTRY METHOD 04/07/2025 9:04 AM [facility] CO2 26 21 - 32 mmol/L LAB CHEMISTRY METHOD 04/07/2025 9:04 AM [facility] Anion Gap 8 3 - 11 LAB CHEMISTRY METHOD 04/07/2025 9:04 AM [facility] Glucose 90 70 - 100 mg/dL LAB CHEMISTRY METHOD 04/07/2025 9:04 AM [facility] BUN 15 5 - 25 mg/dL LAB CHEMISTRY METHOD 04/07/2025 9:04 AM [facility] Creatinine 0.80 0.50 - 1.10 mg/dL LAB CHEMISTRY METHOD 04/07/2025 9:04 AM [facility] eGFR 83 >=60 mL/min/1. 73m2 LAB CHEMISTRY METHOD 04/07/2025 9:04 AM [facility] Comment:Calculation based on the Chronic Kidney Disease Epidemiology Collaboration (CKD-EPI) equation refit without adjustment for race. BUN/Creatinine Ratio 18.8 LAB CHEMISTRY METHOD 04/07/2025 9:04 AM [facility] Calcium 9.4 8.5 - 10.5 mg/dL LAB CHEMISTRY METHOD 04/07/2025 9:04 AM [facility] Blood Venous blood specimen / Unknown Venipuncture / Unknown 04/07/2025 8:04 AM EDT 04/07/2025 8:18 AM EDT us Ana Maria Gardner NP LAB BLOOD ORDERABLES Final Resul t [facility] [address] [place] [address], * CBC auto differential (04/07/2025 8:04 AM EDT) WBC 5.6 4.8 - 10.8 K/mcL LAB [facility] 04/07/2025 8:27 AM [facility] RBC 4.50 3.80 - 4.80 M/mcL LAB HEMETOLOGY METHOD 04/07/2025 8:27 AM [facility] Hemoglobin 14.1 11.5 - 16.0 g/dL LAB HEMETOLOGY METHOD 04/07/2025 8:27 AM [facility] Hematocrit 42.4 35.0 - 47.0 % LAB HEMETOLOGY METHOD 04/07/2025 8:27 AM [facility] MCV 95.1 79.0 - 98.0 FL LAB HEMETOLOGY METHOD 04/07/2025 8:27 AM [facility] MCH 31.6 27.0 - 32.0 pcg LAB HEMETOLOGY METHOD 04/07/2025 8:27 AM [facility] MCHC 33.3 32.0 - 37.0 g/dL LAB HEMETOLOGY METHOD 04/07/2025 8:27 AM [facility] RDW 12.9 11.0 - 15.0 % LAB HEMETOLOGY METHOD 04/07/2025 8:27 AM [facility] Platelets 302 130 - 400 K/mcL LAB HEMETOLOGY METHOD 04/07/2025 8:27 AM [facility] MPV 9.4 7.0 - 11.0 FL LAB HEMETOLOGY METHOD 04/07/2025 8:27 AM [facility] NRBC 0.0 <1.0 % LAB HEMETOLOGY METHOD 04/07/2025 8:27 AM [facility] NRBC Absolute 0.00 <0.10 K/mcL LAB HEMETOLOGY METHOD 04/07/2025 8:27 AM [facility] Neutrophils Relative 48.0 % LAB HEMETOLOGY METHOD 04/07/2025 8:27 AM [facility] Lymphocytes Relative 31.9 % LAB HEMETOLOGY METHOD 04/07/2025 8:27 AM [facility] Monocytes Relative 14.6 % LAB HEMETOLOGY METHOD 04/07/2025 8:27 AM [facility] Eosinophils Relative 3.9 % LAB HEMETOLOGY METHOD 04/07/2025 8:27 AM [facility] Basophils Relative 1.4 % LAB HEMETOLOGY METHOD 04/07/2025 8:27 AM [facility] Immature Granulocytes Relative 0.2 % LAB HEMETOLOGY METHOD 04/07/2025 8:27 AM [facility] Neutrophils Absolute 2.69 1.50 - 7.00 K/mcL LAB HEMETOLOGY METHOD 04/07/2025 8:27 AM [facility] Lymphocytes Absolute 1.79 1.00 - 5.00 K/mcL LAB HEMETOLOGY METHOD 04/07/2025 8:27 AM [facility] Monocytes Absolute 0.82 0.20 - 1.00 K/mcL LAB HEMETOLOGY METHOD 04/07/2025 8:27 AM [facility] Eosinophils Absolute 0.22 0.00 - 0.50 K/mcL LAB HEMETOLOGY METHOD 04/07/2025 8:27 AM [facility] Basophils Absolute 0.08 0.00 - 0.20 K/mcL LAB HEMETOLOGY METHOD 04/07/2025 8:27 AM [facility] Immature Granulocytes Absolute 0.01 0.00 - 0.03 K/mcL LAB HEMETOLOGY METHOD 04/07/2025 8:27 AM [facility] Blood Venous blood specimen / Unknown Venipuncture / Unknown 04/07/2025 8:04 AM EDT 04/07/2025 8:17 AM EDT us Ana Maria Gardner NP LAB BLOOD ORDERABLES Final Resul t Performing Organization Address City/[facility]/ZIP Co de Phone Number [facility] [address] [place] [address], [place] [phone] * (ABNORMAL) Culture urine (04/06/2025 9:02 AM EDT) [facility] Signature Culture, Urine 50,000-100,000 CFU/mL Escherichia coli(A) ANNETTA 04/08/2025 8:05 AM EDT [facility] Comment: This is an edited result. Previous organism was Gram negative bacilli on 04/07/2025 at 0801 EDT. Urine Urine specimen obtained by clean catch procedure / Unknown Non-blood Collection / Unknown 04/06/2025 9:02 AM EDT 04/06/2025 9:25 AM EDT Narrative Organism Antibiotic Method Susceptibility Escherichia coli Amoxicillin/Clavulanate ANNETTA 16 ug/ml: Intermediate Escherichia coli Ampicillin/Sulbactam ANNETTA 16 ug/ml: Intermediate Escherichia coli Piperacillin/Tazobactam ANNETTA <=4 ug/ml: Susceptible Escherichia coli Cefazolin (Urine) ANNETTA 4 ug/ml: Susceptible Escherichia coli Cefoxitin ANNETTA <=4 ug/ml: Susceptible Escherichia coli Ceftazidime ANNETTA <=0.5 ug/ml: Susceptible Escherichia coli Ceftriaxone ANNETTA <=0.25 ug/ml: Susceptible Escherichia coli Cefepime ANNETTA <=0.12 ug/ml: Susceptible Escherichia coli Meropenem ANNETTA <=0.25 ug/ml: Susceptible Escherichia coli Amikacin ANNETTA 2 ug/ml: Susceptible Escherichia coli Gentamicin ANNETTA <=1 ug/ml: Susceptible Escherichia coli Ciprofloxacin ANNETTA <=0.06 ug/ml: Susceptible Escherichia coli Levofloxacin ANNETTA <=0.12 ug/ml: Susceptible Escherichia coli Nitrofurantoin ANNETTA <=16 ug/ml: Susceptible Escherichia coli Trimethoprim/Sulfamethoxazole ANNETTA <=20 ug/ml: Susceptible Deacon Olivera MD LAB MICROBIOLOGY - GENERAL O RDERABLES Final Result [facility] [address] [place] [address], [place] [phone] * Fernandez urine culture tube (04/06/2025 9:02 AM EDT) [facility] Extra Tube Hold for add-ons. 04/06/2025 11:01 AM EDT [facility] Comment:Auto resulted. Urine Urine specimen obtained by clean catch procedure / Unknown Non-blood Collection / Unknown 04/06/2025 9:02 AM EDT 04/06/2025 9:16 AM EDT Decaon Olivera MD LAB URINE ORDERABLES Final R esult [facility] [address] [place] [address], [place] [phone] * (ABNORMAL) Urinalysis with reflex microscopic and culture (04/06/2025 9:02 AM EDT) [facility] Specific [place] Urine 1.020 1.003 - 1.030 LAB URINALYSIS - AUTOMATED METHOD 04/06/2025 9:25 AM [facility] pH, Urine 6.0 5.0 - 8.0 pH LAB URINALYSIS - AUTOMATED METHOD 04/06/2025 9:25 AM [facility] Leukocytes, Urine Large(A) Negative LAB URINALYSIS - AUTOMATED METHOD 04/06/2025 9:25 AM [facility] Nitrite, Urine Positive(A) Negative LAB URINALYSIS - AUTOMATED METHOD 04/06/2025 9:25 AM [facility] Protein, Urine 30(A) <=Trace mg/dL LAB URINALYSIS - AUTOMATED METHOD 04/06/2025 9:25 AM [facility] Glucose, Urine Negative Negative mg/dL LAB URINALYSIS - AUTOMATED METHOD 04/06/2025 9:25 AM [facility] Ketones, Urine Negative Negative mg/dL LAB URINALYSIS - AUTOMATED METHOD 04/06/2025 9:25 AM [facility] Urobilinogen , Urine 1.0 0.2 - 1.0 mg/dL LAB URINALYSIS - AUTOMATED METHOD 04/06/2025 9:25 AM [facility] Bilirubin, Urine Negative Negative LAB URINALYSIS - AUTOMATED METHOD 04/06/2025 9:25 AM [facility] Blood, Urine Moderate(A) Negative LAB URINALYSIS - AUTOMATED METHOD 04/06/2025 9:25 AM [facility] RBC, Urine 20.3(H) 0 - 4 /HPF LAB URINALYSIS - AUTOMATED METHOD 04/06/2025 9:25 AM [facility] WBC, Urine 824.0(H) 0 - 4 /HPF LAB URINALYSIS - AUTOMATED METHOD 04/06/2025 9:25 AM [facility] Squamous Epithelial, Urine 31 0 - 60 /LPF LAB URINALYSIS - AUTOMATED METHOD 04/06/2025 9:25 AM [facility] Bacteria, Urine Many(A) Negative /HPF LAB URINALYSIS - AUTOMATED METHOD 04/06/2025 9:25 AM [facility] Hyaline Casts, Urine 0.8 0 - 3 /LPF LAB URINALYSIS - AUTOMATED METHOD 04/06/2025 9:25 AM [facility] Urine Urine specimen obtained by clean catch procedure / Unknown Non-blood Collection / Unknown 04/06/2025 9:02 AM EDT 04/06/2025 9:16 AM EDT us Deacon Olivera MD LAB URINE ORDERABLES Final R esult [facility] [address] [place] [address], [place] [phone] * (ABNORMAL) Urinalysis with reflex microscopic (04/06/2025 9:02 AM ED) Specific [place] Urine 1.020 1.003 - 1.030 LAB URINALYSIS - AUTOMATED METHOD 04/06/2025 9:25 AM [facility] pH, Urine 6.0 5.0 - 8.0 pH LAB URINALYSIS - AUTOMATED METHOD 04/06/2025 9:25 AM [facility] Leukocytes, Urine Large(A) Negative LAB URINALYSIS - AUTOMATED METHOD 04/06/2025 9:25 AM [facility] Nitrite, Urine Positive(A) Negative LAB URINALYSIS - AUTOMATED METHOD 04/06/2025 9:25 AM [facility] Protein, Urine 30(A) <=Trace mg/dL LAB URINALYSIS - AUTOMATED METHOD 04/06/2025 9:25 AM [facility] Glucose, Urine Negative Negative mg/dL LAB URINALYSIS - AUTOMATED METHOD 04/06/2025 9:25 AM [facility] Ketones, Urine Negative Negative mg/dL LAB URINALYSIS - AUTOMATED METHOD 04/06/2025 9:25 AM [facility] Urobilinogen , Urine 1.0 0.2 - 1.0 mg/dL LAB URINALYSIS - AUTOMATED METHOD 04/06/2025 9:25 AM [facility] Bilirubin, Urine Negative Negative LAB URINALYSIS - AUTOMATED METHOD 04/06/2025 9:25 AM [facility] Blood, Urine Moderate(A) Negative LAB URINALYSIS - AUTOMATED METHOD 04/06/2025 9:25 AM [facility] RBC, Urine 20.3(H) 0 - 4 /HPF LAB URINALYSIS - AUTOMATED METHOD 04/06/2025 9:25 AM [facility] WBC, Urine 824.0(H) 0 - 4 /HPF LAB URINALYSIS - AUTOMATED METHOD 04/06/2025 9:25 AM EDT [facility] Squamous Epithelial, Urine 31 0 - 60 /LPF LAB URINALYSIS - AUTOMATED METHOD 04/06/2025 9:25 AM [facility] Bacteria, Urine Many(A) Negative /HPF LAB URINALYSIS - AUTOMATED METHOD 04/06/2025 9:25 AM [facility] Hyaline Casts, Urine 0.8 0 - 3 /LPF LAB URINALYSIS - AUTOMATED METHOD 04/06/2025 9:25 AM [facility] Urine Urine specimen obtained by clean catch procedure / Unknown Non-blood Collection / Unknown 04/06/2025 9:02 AM EDT 04/06/2025 9:16 AM EDT Amrita Duke MD LAB URINE ORDERABLES Final Result [facility] [address] [place] [address], [place] [phone] * (ABNORMAL) CBC auto differential (04/06/2025 8:24 AM EDT) WBC 9.5 4.8 - 10.8 K/mcL LAB HEMETOLOGY METHOD 04/06/2025 8:43 AM EDT [facility] RBC 4.70 3.80 - 4.80 M/[facility] LAB HEMETOLOGY METHOD 04/06/2025 8:43 AM EDT [facility] Hemoglobin 15.0 11.5 - 16.0 g/dL LAB HEMETOLOGY METHOD 04/06/2025 8:43 AM EDT [facility] Hematocrit 44.9 35.0 - 47.0 % LAB HEMETOLOGY METHOD 04/06/2025 8:43 AM EDT [facility] MCV 96.1 79.0 - 98.0 FL LAB HEMETOLOGY METHOD 04/06/2025 8:43 AM [facility] MCH 32.1(H) 27.0 - 32.0 pcg LAB HEMETOLOGY METHOD 04/06/2025 8:43 AM [facility] MCHC 33.4 32.0 - 37.0 g/dL LAB HEMETOLOGY METHOD 04/06/2025 8:43 AM [facility] RDW 12.9 11.0 - 15.0 % LAB HEMETOLOGY METHOD 04/06/2025 8:43 AM [facility] Platelets 326 130 - 400 K/mcL LAB HEMETOLOGY METHOD 04/06/2025 8:43 AM [facility] MPV 9.4 7.0 - 11.0 FL LAB HEMETOLOGY METHOD 04/06/2025 8:43 AM [facility] NRBC 0.0 <1.0 % LAB HEMETOLOGY METHOD 04/06/2025 8:43 AM [facility] NRBC Absolute 0.00 <0.10 K/mcL LAB HEMETOLOGY METHOD 04/06/2025 8:43 AM [facility] Neutrophils Relative 60.3 % LAB HEMETOLOGY METHOD 04/06/2025 8:43 AM [facility] Lymphocytes Relative 26.4 % LAB HEMETOLOGY METHOD 04/06/2025 8:43 AM [facility] Monocytes Relative 10.7 % LAB HEMETOLOGY METHOD 04/06/2025 8:43 AM [facility] Eosinophils Relative 1.8 % LAB HEMETOLOGY METHOD 04/06/2025 8:43 AM [facility] Basophils Relative 0.6 % LAB HEMETOLOGY METHOD 04/06/2025 8:43 AM [facility] Immature Granulocytes Relative 0.2 % LAB HEMETOLOGY METHOD 04/06/2025 8:43 AM EDT [facility] Neutrophils Absolute 5.73 1.50 - 7.00 K/[facility] LAB HEMETOLOGY METHOD 04/06/2025 8:43 AM EDT [facility] Lymphocytes Absolute 2.51 1.00 - 5.00 K/mcL LAB HEMETOLOGY METHOD 04/06/2025 8:43 AM EDT [facility] Monocytes Absolute 1.02(H) 0.20 - 1.00 K/mcL LAB HEMETOLOGY METHOD 04/06/2025 8:43 AM EDT [facility] Eosinophils Absolute 0.17 0.00 - 0.50 K/[facility] LAB HEMETOLOGY METHOD 04/06/2025 8:43 AM EDT [facility] Basophils Absolute 0.06 0.00 - 0.20 K/mcL LAB HEMETOLOGY METHOD 04/06/2025 8:43 AM EDT [facility] Immature Granulocytes Absolute 0.02 0.00 - 0.03 K/[facility] LAB HEMETOLOGY METHOD 04/06/2025 8:43 AM EDT [facility] Blood Venous blood specimen / Unknown Venipuncture / Unknown 04/06/2025 8:24 AM EDT 04/06/2025 8:37 AM EDT Deacon Olivera MD LAB BLOOD ORDERABLES Final R esult [facility] [address] [place] [address], * Troponin I High Sensitivity (04/06/2025 8:24 AM EDT) [facility] High Sensitivity Troponin I 6 <=54 ng/L LAB CHEMISTRY METHOD 04/06/2025 9:10 AM EDT [facility] Blood Venous blood specimen / Unknown Venipuncture / Unknown 04/06/2025 8:24 AM EDT 04/06/2025 8:37 AM EDT Narrative [facility] - 04/06/2025 9:10 AM EDT High levels of biotin in samples may falsely decrease hsTroponin values. Use caution when interpreting hsTroponin results in patients taking biotin who exhibit renal impairment (eGFR <60) or in patients taking more than 20 mg/day of biotin. us Deacon Olivera MD LAB BLOOD ORDERABLES Final R esult Performing Organization Address [facility] Co de Phone Number [facility] [address] [place] [address], * B-Type Natriuretic Peptide (BNP) (04/06/2025 8:24 AM EDT) BNP 23 <=100 pcg/mL LAB CHEMISTRY METHOD 04/06/2025 9:22 AM EDT [facility] Blood Venous blood specimen / Unknown Venipuncture / Unknown 04/06/2025 8:24 AM EDT 04/06/2025 8:37 AM EDT us Deacon Olivera MD LAB BLOOD ORDERABLES Final R esult Performing Organization Address [facility] Co de Phone Number [facility] [address] [place] [address], * Comprehensive Metabolic Panel (CMP) (04/06/2025 8:24 AM EDT) Sodium 136 133 - 145 mmol/L LAB CHEMISTRY METHOD 04/06/2025 9:10 AM EDT [facility] Potassium 4.0 3.5 - 5.5 mmol/L LAB CHEMISTRY METHOD 04/06/2025 9:10 AM EDT [facility] Chloride 103 96 - 110 mmol/L LAB CHEMISTRY METHOD 04/06/2025 9:10 AM EDT [facility] CO2 27 21 - 32 mmol/L LAB CHEMISTRY METHOD 04/06/2025 9:10 AM [facility] Anion Gap 6 3 - 11 LAB CHEMISTRY METHOD 04/06/2025 9:10 AM [facility] Glucose 85 70 - 100 mg/dL LAB CHEMISTRY METHOD 04/06/2025 9:10 AM [facility] BUN 16 5 - 25 mg/dL LAB CHEMISTRY METHOD 04/06/2025 9:10 AM [facility] Creatinine 0.82 0.50 - 1.10 mg/dL LAB CHEMISTRY METHOD 04/06/2025 9:10 AM [facility] eGFR 81 >=60 mL/min/1. 73m2 LAB CHEMISTRY METHOD 04/06/2025 9:10 AM [facility] Comment:Calculation based on the Chronic Kidney Disease Epidemiology Collaboration (CKD-EPI) equation refit without adjustment for race. BUN/Creatinine Ratio 19.5 LAB CHEMISTRY METHOD 04/06/2025 9:10 AM [facility] Calcium 9.4 8.5 - 10.5 mg/dL LAB CHEMISTRY METHOD 04/06/2025 9:10 AM [facility] AST (SGOT) 30 10 - 42 unit/L LAB CHEMISTRY METHOD 04/06/2025 9:10 AM [facility] ALT (SGPT) 29 10 - 60 unit/L LAB CHEMISTRY METHOD 04/06/2025 9:10 AM [facility] Alkaline Phosphatase 119 42 - 121 unit/L LAB CHEMISTRY METHOD 04/06/2025 9:10 AM [facility] Total Protein 6.6 6.0 - 8.0 g/dL LAB CHEMISTRY METHOD 04/06/2025 9:10 AM [facility] Albumin 3.3 3.2 - 5.0 g/dL LAB CHEMISTRY METHOD 04/06/2025 9:10 AM [facility] Total Bilirubin 0.4 0.0 - 1.4 mg/dL LAB CHEMISTRY METHOD 04/06/2025 9:10 AM EDT [facility] Blood Venous blood specimen / Unknown Venipuncture / Unknown 04/06/2025 8:24 AM EDT 04/06/2025 8:37 AM EDT Deacon Olivera MD LAB BLOOD ORDERABLES Final R esult Performing Organization Address City/[facility]/ZIP Co de Phone Number [facility] [address] [place] [address], [place] [phone] * POCT Glucose, blood (04/01/2025 8:46 AM EDT) [facility] Glucose POCT 89 70 - 100 mg/dL 04/01/2025 8:47 AM EDT [facility] Blood Capillary blood specimen / Unknown 04/01/2025 8:46 AM EDT 04/01/2025 8:49 AM EDT Gregorio Mcgregor MD LAB POINT OF CARE TE ST DOCKED DEVICE UNSOLICITED RESULTS Final Result Performing Organization Address [facility] Co de Phone Number [facility] [address] [place] [address], [place] [phone] * XR Knee 4+ Views Right (04/01/2025 2:38 AM EDT) Anatomical Region Laterality Modality Lower Extremities, Knee Right Radiogra phic Imaging 04/01/2025 9:13 AM EDT Impressions 04/01/2025 9:14 AM EDT Impression: 1. No evidence of fracture. 2. Moderate tricompartmental arthritic change. Telesamantha ROWLEY ([id number]) -------- FINAL REPORT -------- Dictated By: Berta Mock Dictated Date: 04/01/2025 09:13 ET Assigned Physician: Berta Mock Reviewed and Electronically Signed By: Berta Mock Signed Date: 04/01/2025 09:14 ET Workstation ID: [id number] Transcribed By: Self Edit Transcribed Date: 04/01/2025 09:13 ET Narrative 04/01/2025 9:14 AM EDT History: Right knee pain after fall. Findings: AP, oblique and lateral views of the right knee. No fracture or dislocation is seen. There is mild narrowing of the patellofemoral and femorotibial joint spaces. Bony hypertrophy of the tibial spines is noted and there are marginal osteophytes throughout the knee. No joint effusion is identified. Procedure Note Berta Mock MD - 04/01/2025 History: Right knee pain after fall. Findings: AP, oblique and lateral views of the right knee. No fracture ordislocation is seen. There is mild narrowing of the patellofemoral andfemorotibial joint spaces. Bony hypertrophy of the tibial spines is notedand there are marginal osteophytes throughout the knee. No joint effusion is identified. IMPRESSION: Impression: 1. No evidence of fracture. 2. Moderate tricompartmental arthritic change. [place] ([id number]) -------- FINAL REPORT -------- Dictated By: Berta Mock Dictated Date: 04/01/2025 09:13 ET Assigned Physician: Berta Mock Reviewed and Electronically Signed By: Berta Mock Signed Date: 04/01/2025 09:14 ET Workstation ID: [id number] Transcribed By: Self Edit Transcribed Date: 04/01/2025 09:13 ET us Evelia Lopez MD IMG XR PROCEDURES Final Result * CT Thoracic Spine wo Contrast (04/01/2025 2:23 AM EDT) Anatomical Region Laterality Modality Spine, T-spine Computed Tomogra phy 04/01/2025 3:26 AM EDT Impressions 04/01/2025 3:26 AM EDT No evidence of thoracic spine injury. This document has been electronically signed by: Radhames Hinds MD on 04/01/2025 03:26:49 Narrative 04/01/2025 3:26 AM EDT INDICATION: fall, midline thoracic pain CT thoracic spine without contrast Comparison: None provided Findings: The alignment of the thoracic spine is normal. There is no fracture. Disc heights are preserved. There are multiple anterior osteophytes. There is multilevel facet osteoarthritis. There is no evidence of significant central canal or neuroforaminal stenosis. There is mild bilateral atelectasis. Procedure Note Radhames Hinds MD - 04/01/2025 INDICATION: fall, midline thoracic pain CT thoracic spine without contrast Comparison: None provided Findings: The alignment of the thoracic spine is normal. There is no fracture.Disc heights are preserved. There are multiple anterior osteophytes. There is multilevel facet osteoarthritis. There is no evidence of significant central canal or neuroforaminal stenosis. There is mild bilateral atelectasis. IMPRESSION: No evidence of thoracic spine injury. This document has been electronically signed by: Radhames Hinds MD on 04/01/2025 03:26:49 Evelia Lopez MD IMG CT PROCEDURES Final Result * CT Cervical Spine wo Contrast (04/01/2025 2:23 AM EDT) Anatomical Region Laterality Modality Spine, C-spine Computed Tomogra phy 04/01/2025 3:26 AM EDT Impressions 04/01/2025 3:26 AM EDT No evidence of cervical spine injury. This document has been electronically signed by: Radhames Hinds MD on 04/01/2025 03:26:31 Narrative 04/01/2025 3:26 AM EDT INDICATION: fall, midline neck pain CT cervical spine without contrast Comparison: None provided Findings: The alignment of the cervical spine is normal. There is no fracture. Disc heights are preserved. There are multiple anterior osteophytes. There are multilevel mild neuroforaminal stenoses due to facet and uncovertebral joint osteoarthritis. There is mild carotid artery calcification. Procedure Note Radhames Hinds MD - 04/01/2025 INDICATION: fall, midline neck pain CT cervical spine without contrast Comparison: None provided Findings: The alignment of the cervical spine is normal. There is no fracture.Disc heights are preserved. There are multiple anterior osteophytes. Thereare multilevel mild neuroforaminal stenoses due to facet and uncovertebral joint osteoarthritis. There is mild carotid artery calcification. IMPRESSION: No evidence of cervical spine injury. This document has been electronically signed by: Radhames Hinds MD on 04/01/2025 03:26:31 Evelia Lopez MD [facility] CT PROCEDURES Final Result * CT Head wo Contrast (04/01/2025 2:23 AM EDT) Anatomical Region Laterality Modality Head and Neck Computed Tomogra phy 04/01/2025 3:28 AM EDT Impressions 04/01/2025 3:28 AM EDT No acute intracranial abnormality. This document has been electronically signed by: Radhames Hinds MD on 04/01/2025 03:28:45 Narrative 04/01/2025 3:28 AM EDT INDICATION: fall with head strike on anticoagulation CT head without contrast Comparison: CT/UT/SR - CT HEAD WO CONTRAST - 12/30/24 15:10 EDT Findings: There is no acute intracranial hemorrhage. There is stable mild ex vacuo dilation of the ventricles. No mass effect or midline shift is present. The fernandez-white matter differentiation appears normal. There is mild generalized cerebral atrophy. There is an unchanged chronic lacunar infarct in the right caudate. There is an unchanged chronic lacunar infarct versus prominent perivascular space within the right basal ganglia inferiorly. The visualized portions of the orbits, paranasal sinuses, and mastoids are unremarkable. No fractures are identified. Procedure Note Radhames Hinds MD - 04/01/2025 INDICATION: fall with head strike on anticoagulation CT head without contrast Comparison: CT/UT/SR - CT HEAD WO CONTRAST - 12/30/24 15:10 EDT Findings: There is no acute intracranial hemorrhage. There is stable mild ex vacuo dilation of the ventricles. No mass effect or midline shift is present. The fernandez-white matter differentiation appears normal. There is mild generalized cerebral atrophy. There is an unchanged chronic lacunar infarct in the right caudate. There is an unchanged chronic lacunar infarct versus prominent perivascular space within the right basalganglia inferiorly. The visualized portions of the orbits, paranasal sinuses, and mastoidsare unremarkable. No fractures are identified. IMPRESSION: No acute intracranial abnormality. This document has been electronically signed by: Radhames Hinds MD on 04/01/2025 03:28:45 Evelia Lopez MD IM CT PROCEDURES Final Result * (ABNORMAL) Culture urine (04/01/2025 12:02 AM EDT) Culture, Urine 10,000-49,0 00 CFU/mL Proteus mirabilis(A ) ANNETTA 04/03/2025 10:16 AM EDT [facility] Comment: Edited result: Previously reported as Proteus species on 04/02/2025 at 1005 EDT. Urine Urine specimen obtained by clean catch procedure / Unknown Non-blood Collection / Unknown 04/01/2025 12:02 AM EDT 04/01/2025 12:25 AM EDT Narrative [facility] - 04/03/2025 10:16 AM EDT Additional colony types present in insignificant amounts. Organism Antibiotic Method Susceptibility Proteus mirabilis Amoxicillin/Clavulanate ANNETTA 8 ug/ml: Susceptible Proteus mirabilis Ampicillin/Sulbactam ANNETTA 16 ug/ml: Intermediate Proteus mirabilis Piperacillin/Tazobactam ANNETTA <=4 ug/ml: Susceptible Proteus mirabilis Cefazolin (Urine) ANNETTA 8 ug/ml: Susceptible Proteus mirabilis Cefoxitin ANNETTA <=4 ug/ml: Susceptible Proteus mirabilis Ceftazidime ANNETTA <=0.5 ug/ml: Susceptible Proteus mirabilis Ceftriaxone ANNETTA <=0.25 ug/ml: Susceptible Proteus mirabilis Cefepime ANNETTA <=0.12 ug/ml: Susceptible Proteus mirabilis Meropenem ANNETTA <=0.25 ug/ml: Susceptible Proteus mirabilis Amikacin ANNETTA 4 ug/ml: Susceptible Proteus mirabilis Gentamicin ANNETTA <=1 ug/ml: Susceptible Proteus mirabilis Ciprofloxacin ANNETTA <=0.06 ug/ml: Susceptible Proteus mirabilis Levofloxacin ANNETTA <=0.12 ug/ml: Susceptible Proteus mirabilis Nitrofurantoin ANNETTA 128 ug/ml: Resistant Proteus mirabilis Trimethoprim/Sulfamethoxazole ANNETTA >=320 ug/ml: Resistant Evelia Lopez MD LAB MICROBIOLOGY - GENERAL ORD ERABLES Final Result Performing Organization Address [facility]/ZIP Co de Phone Number [facility] [address] [place] [address], [place] [phone] * Fernandez urine culture tube (04/01/2025 12:02 AM EDT) [facility] Extra Tube Hold for add-ons. 04/01/2025 2:01 AM EDT [facility] Comment:Auto resulted. Urine Urine specimen obtained by clean catch procedure / Unknown Non-blood Collection / Unknown 04/01/2025 12:02 AM EDT 04/01/2025 12:18 AM EDT Evelia Lopez MD LAB URINE ORDERABLES Final Res ult Performing Organization Address [facility]/ZIP Co de Phone Number [facility] [address] [place] [address], [place] [phone] * (ABNORMAL) Urinalysis with reflex microscopic and culture (04/01/2025 12:02 AM EDT) [facility] Specific [place] Urine 1.024 1.003 - 1.030 LAB URINALYSIS - AUTOMATED METHOD 04/01/2025 12:25 AM EDT [facility] pH, Urine 7.0 5.0 - 8.0 pH LAB URINALYSIS - AUTOMATED METHOD 04/01/2025 12:25 AM [facility] Leukocytes, Urine Small(A) Negative LAB URINALYSIS - AUTOMATED METHOD 04/01/2025 12:25 AM T [facility] Nitrite, Urine Negative Negative LAB URINALYSIS - AUTOMATED METHOD 04/01/2025 12:25 AM EDT [facility] Protein, Urine Trace <=Trace mg/dL LAB URINALYSIS - AUTOMATED METHOD 04/01/2025 12:25 AM [facility] Glucose, Urine Negative Negative mg/dL LAB URINALYSIS - AUTOMATED METHOD 04/01/2025 12:25 AM [facility] Ketones, Urine Trace(A) Negative mg/dL LAB URINALYSIS - AUTOMATED METHOD 04/01/2025 12:25 AM [facility] Urobilinogen, Urine 1.0 0.2 - 1.0 mg/dL LAB URINALYSIS - AUTOMATED METHOD 04/01/2025 12:25 AM [facility] Bilirubin, Urine Negative Negative LAB URINALYSIS - AUTOMATED METHOD 04/01/2025 12:25 AM [facility] Blood, Urine Small(A) Negative LAB URINALYSIS - AUTOMATED METHOD 04/01/2025 12:25 AM [facility] RBC, Urine 37.9(H) 0 - 4 /HPF LAB URINALYSIS - AUTOMATED METHOD 04/01/2025 12:25 AM [facility] WBC, Urine 2.9 0 - 4 /HPF LAB URINALYSIS - AUTOMATED METHOD 04/01/2025 12:25 AM [facility] Squamous Epithelial, Urine 79(H) 0 - 60 /LPF LAB URINALYSIS - AUTOMATED METHOD 04/01/2025 12:25 AM [facility] Bacteria, Urine Negative Negative /HPF LAB URINALYSIS - AUTOMATED METHOD 04/01/2025 12:25 AM [facility] Hyaline Casts, Urine 2.0 0 - 3 /LPF LAB URINALYSIS - AUTOMATED METHOD 04/01/2025 12:25 AM [facility] Urine Urine specimen obtained by clean catch procedure / Unknown Non-blood Collection / Unknown 04/01/2025 12:02 AM EDT 04/01/2025 12:18 AM EDT us Evelia Lopez MD LAB URINE ORDERABLES Final Res ult [facility] [address] [place] [address], * (ABNORMAL) CBC auto differential (03/31/2025 10:20 PM EDT) WBC 13.9(H) 4.8 - 10.8 K/mcL LAB HEMETOLOGY METHOD 03/31/2025 11:08 PM EDT [facility] RBC 4.70 3.80 - 4.80 M/mcL LAB HEMETOLOGY METHOD [facility] Hemoglobin 14.7 11.5 - 16.0 g/dL LAB HEMETOLOGY METHOD 03/31/2025 [facility] Hematocrit 44.9 35.0 - 47.0 % LAB HEMETOLOGY METHOD 03/31/2025 11:[facility] MCV 95.9 79.0 - 98.0 FL LAB HEMETOLOGY METHOD 03/31/2025 11:[facility] MCH 31.4 27.0 - 32.0 pcg LAB HEMETOLOGY METHOD 03/31/2025 11:08 PM EDT [facility] MCHC 32.7 32.0 - 37.0 g/dL LAB HEMETOLOGY METHOD 03/31/2025 11:08 PM EDT [facility] RDW 13.3 11.0 - 15.0 % LAB HEMETOLOGY METHOD 03/31/2025 11:[facility] Platelets 372 130 - 400 K/mcL LAB HEMETOLOGY METHOD 03/31/2025 11:[facility] MPV 10.0 7.0 - 11.0 FL LAB HEMETOLOGY METHOD 03/31/2025 11:08 PM [facility] NRBC 0.0 <1.0 % LAB HEMETOLOGY METHOD 03/31/2025 11:08 PM [facility] NRBC Absolute 0.00 <0.10 K/mcL LAB HEMETOLOGY METHOD 03/31/2025 11:08 PM [facility] Neutrophils Relative 75.4 % LAB HEMETOLOGY METHOD 03/31/2025 11:08 PM [facility] Lymphocytes Relative 14.5 % LAB HEMETOLOGY METHOD 03/31/2025 11:08 PM [facility] Monocytes Relative 8.4 % LAB HEMETOLOGY METHOD 03/31/2025 11:08 PM [facility] Eosinophils Relative 0.8 % LAB HEMETOLOGY METHOD 03/31/2025 11:08 PM [facility] Basophils Relative 0.5 % LAB HEMETOLOGY METHOD 03/31/2025 11:08 PM [facility] Immature Granulocytes Relative 0.4 % LAB HEMETOLOGY METHOD 03/31/2025 11:08 PM [facility] Neutrophils Absolute 10.49(H) 1.50 - 7.00 K/mcL LAB HEMETOLOGY METHOD 03/31/2025 11:08 PM [facility] Lymphocytes Absolute 2.01 1.00 - 5.00 K/mcL LAB HEMETOLOGY METHOD 03/31/2025 11:08 PM [facility] Monocytes Absolute 1.17(H) 0.20 - 1.00 K/mcL LAB HEMETOLOGY METHOD 03/31/2025 11:08 PM [facility] Eosinophils Absolute 0.11 0.00 - 0.50 K/mcL LAB HEMETOLOGY METHOD 03/31/2025 11:08 PM [facility] Basophils Absolute 0.07 0.00 - 0.20 K/[facility] LAB HEMETOLOGY METHOD 03/31/2025 11:08 PM EDT [facility] Immature Granulocytes Absolute 0.06(H) 0.00 - 0.03 K/[facility] LAB HEMETOLOGY METHOD 03/31/2025 11:08 PM EDT [facility] Blood Venous blood specimen / Unknown Venipuncture / Unknown 03/31/2025 10:20 PM EDT 03/31/2025 11:03 PM EDT Evelia Lopez MD LAB BLOOD ORDERABLES Final Res ult Performing Organization Address City/[facility]/ZIP Co de Phone Number [facility] [address] [place] [address], [place] [phone] * Magnesium (03/31/2025 10:20 PM EDT) Magnesium 1.9 1.9 - 2.6 mg/dL LAB CHEMISTRY METHOD 03/31/2025 11:26 PM EDT [facility] Blood Venous blood specimen / Unknown Venipuncture / Unknown 03/31/2025 10:20 PM EDT 03/31/2025 11:03 PM EDT us Evelia Lopez MD LAB BLOOD ORDERABLES Final Res ult [facility] [address] [place] [address], [place] [phone] * (ABNORMAL) Basic metabolic panel (03/31/2025 10:20 PM EDT) Sodium 136 133 - 145 mmol/L LAB CHEMISTRY METHOD 03/31/2025 11:26 PM EDT [facility] Potassium 4.4 3.5 - 5.5 mmol/L LAB CHEMISTRY METHOD 03/31/2025 11:26 PM EDT [facility] Chloride 105 96 - 110 mmol/L LAB CHEMISTRY METHOD 03/31/2025 11:26 PM T [facility] CO2 28 21 - 32 mmol/L LAB CHEMISTRY METHOD 03/31/2025 11:26 PM [facility] Anion Gap 3 3 - 11 LAB CHEMISTRY METHOD 03/31/2025 11:26 PM [facility] Glucose 99 70 - 100 mg/dL LAB CHEMISTRY METHOD 03/31/2025 11:26 PM [facility] BUN 20 5 - 25 mg/dL LAB CHEMISTRY METHOD 03/31/2025 11:26 PM [facility] Creatinine 1.07 0.50 - 1.10 mg/dL LAB CHEMISTRY METHOD 03/31/2025 11:26 PM [facility] eGFR 59(L) >=60 mL/min/1. 73m2 LAB CHEMISTRY METHOD 03/31/2025 11:26 PM T [facility] Comment:Calculation based on the Chronic Kidney Disease Epidemiology Collaboration (CKD-EPI) equation refit without adjustment for race. BUN/Creatinine Ratio 18.7 LAB CHEMISTRY METHOD 03/31/2025 11:26 PM [facility] Calcium 9.4 8.5 - 10.5 mg/dL LAB CHEMISTRY METHOD 03/31/2025 11:26 PM [facility] Blood Venous blood specimen / Unknown Venipuncture / Unknown 03/31/2025 10:20 PM EDT 03/31/2025 11:03 PM EDT us Evelia Lopez MD LAB BLOOD ORDERABLES Final Res ult [facility] [address] [place] [address], * (ABNORMAL) POCT Glucose, blood (03/31/2025 10:15 PM EDT) Glucose POCT 110(H) 70 - 100 mg/dL 03/31/2025 10:15 PM EDT [facility] Blood Capillary blood specimen / Unknown 03/31/2025 10:15 PM EDT 03/31/2025 10:16 PM EDT Evelia Lopez MD LAB POINT OF CARE TE ST DOCKED DEVICE UNSOLICITED RESULTS Final Result [facility] [address] [place] [address], [place] [phone] * ECG 12 lead (03/31/2025 10:10 PM EDT) Pathologist [facility] Ventricular Rate ECG 73 BPM GEMUSE Atrial Rate 73 BPM GEMUSE P-R Interval 194 ms GEMUSE QRS Duration 90 ms GEMUSE Q-T Interval 436 ms GEMUSE QTc 480 ms GEMUSE P Wave [place] 39 degrees GEMUSE R [place] 77 degrees GEMUSE T [place] 69 degrees GEMUSE ECG Interpretation Normal sinus rhythm Normal ECG No previous ECGs available Confirmed by Roger MCKAY JAMES ([id number]) on 04/01/2025 12:30:35 PM GEMUSE 03/31/2025 10:1 0 PM EDT 04/01/2025 12:30 PM EDT Evelia Lopez MD ECG ORDERABLES Final Result GEMUSE documented in this encounter Visit Diagnoses Diagnosis Physical deconditioning- Primary Muscular wasting and disuse atrophy, not elsewhere classified Fall, initial encounter Closed head injury, initial encounter Neck pain Cervicalgia Acute midline thoracic back pain Polypharmacy Issue of repeat prescriptions documented in this encounter Admitting Diagnoses Diagnosis Physical deconditioning Muscular wasting and disuse atrophy, not elsewhere classified documented in this encounter Administered Medications Inactive Administered Medications - up to 3 most recent administrations Medication Order MAR Action Action Date Dose Rate Site acetaminophen (TYLENOL) tablet 1,000 mg 1,000 mg, oral, Once, On Sun04/01/25 at 0117, For 1 dose Given 04/01/2025 1:20 AM EDT 1,000 mg acetaminophen (TYLENOL) tablet 1,000 mg 1,000 mg, oral, Every 8 hours scheduled, First dose on Sun04/07/25 at 1400 Given 04/07/2025 2:20 PM EDT 1,000 mg acetaminophen (TYLENOL) tablet 500 mg 500 mg, oral, Every 6 hours PRN, mild pain, Starting on Sun04/02/25 at 1821, For 3 doses Given 04/05/2025 6:59 AM EDT 500 mg Given 04/03/2025 8:20 PM EDT 500 mg Given 04/02/2025 6:23 PM EDT 500 mg apixaban (ELIQUIS) tablet 5 mg 5 mg, oral, 2 times daily, First dose on Sun04/01/25 at 0900, Indication: VTE/PE Treatment Given 04/06/2025 8:25 AM EDT 5 mg Given 04/05/2025 8:11 PM EDT 5 mg Given 04/05/2025 8:19 AM EDT 5 mg apixaban (ELIQUIS) tablet 5 mg 5 mg, oral, 2 times daily, First dose on Sun04/06/25 at 2100, Indication: Atrial Fibrillation Given 04/07/2025 8:52 AM EDT 5 mg Given 04/06/2025 8:22 PM EDT 5 mg aspirin chewable tablet 81 mg 81 mg, oral, Nightly, First dose on 04/04/25 at 2342, For 328 days Given 04/06/2025 8:23 PM EDT 81 mg Given 04/05/2025 8:11 PM EDT 81 mg atorvastatin (LIPITOR) tablet 40 mg 40 mg, oral, Nightly, First dose on 04/04/25 at 2342 Given 04/06/2025 8:22 PM EDT 40 mg Given 04/05/2025 8:11 PM EDT 40 mg budesonide (PULMICORT) 1 mg/2 mL nebulizer solution 1 mg 1 mg, nebulization, Daily, First dose on Sun04/06/25 at 1130, Rinse mouth with water after use to reduce aftertaste and incidence of candidiasis. Do not swallow. Therapeutic substitution for TRELEGY ELLIPTA is budesonide neb once daily, formoterol neb twice daily, and revefenacin neb once daily. Given 04/07/2025 7:25 AM EDT 1 mg bumetanide (BUMEX) tablet 2 mg 2 mg, oral, Once, On Sun04/01/25 at 0900, For 1 dose Given 04/01/2025 8:49 AM EDT 2 mg buPROPion XL (WELLBUTRIN XL) 24 hr tablet 150 mg 150 mg, oral, Every morning, First dose (after last modification) on Sun04/08/25 at 0700, For 3 doses, Do not crush, chew, or split. buPROPion XL (WELLBUTRIN XL) 24 hr tablet 300 mg 300 mg, oral, Daily, First dose on Sun04/01/25 at 0900, Do not crush, chew, or split. Given 04/06/2025 8:25 AM EDT 300 mg Given 04/05/2025 8:18 AM EDT 300 mg Given 04/04/2025 8:49 AM EDT 300 mg buPROPion XL (WELLBUTRIN XL) 24 hr tablet 300 mg 300 mg, oral, Every morning, First dose on Sun04/07/25 at 0700, Do not crush, chew, or split. Given 04/07/2025 6:05 AM EDT 300 mg cefTRIAXone (ROCEPHIN) 1 g in sterile water 10 mL IV syringe 1 g, intravenous, Administer over 3 Minutes, Every 24 hours, First dose on Sun04/06/25 at 1000, For 5 days, Do not administer simultaneously with any calcium containing solutions via a Y-site in any patient., Indication: Urinary Tract/Genitourinary Given 04/07/2025 10:31 AM EDT 1 g Left Forearm Given 04/06/2025 10:25 AM EDT 1 g docusate sodium (COLACE) capsule 100 mg 100 mg, oral, 2 times daily, First dose on Sun04/07/25 at 1130 Given 04/07/2025 11:57 AM EDT 100 mg famotidine (PEPCID) tablet 40 mg 40 mg, oral, Nightly, First dose on Sun04/04/25 at 2342, For 311 days Given 04/06/2025 8:25 PM EDT 40 mg Given 04/05/2025 8:11 PM EDT 40 mg FLUoxetine (PROzac) capsule 40 mg 40 mg, oral, Daily, First dose on Sun04/01/25 at 0900 Given 04/07/2025 8:48 AM EDT 40 mg Given 04/06/2025 8:25 AM EDT 40 mg Given 04/05/2025 8:18 AM EDT 40 mg formoterol (PERFOROMIST) 20 mcg/2 mL nebulizer solution 20 mcg 20 mcg, nebulization, 2 times daily, First dose on Sun04/06/25 at 1130, Therapeutic substitution for TRELEGY ELLIPTA is budesonide neb once daily, formoterol neb twice daily, and revefenacin neb once daily. Given 04/07/2025 7:24 AM EDT 20 mcg hydrOXYzine HCL (ATARAX) tablet 25 mg 25 mg, oral, 3 times daily, First dose on Sun04/05/25 at 0900 Given 04/06/2025 8:22 PM EDT 25 mg Given 04/06/2025 1:39 PM EDT 25 mg Given 04/06/2025 8:25 AM EDT 25 mg lidocaine 4 % patch 1 patch 1 patch, Topical, Administer over 12 Hours, Daily, First dose on Sun04/07/25 at 1030, Apply to shoulder pain . Patch Applied 04/07/2025 10:28 AM EDT 1 patch Other LORazepam (ATIVAN) tablet 1 mg 1 mg, oral, Every 8 hours PRN, anxiety, Starting on Sun04/01/25 at 0412 Given 04/07/2025 12:06 PM EDT 1 mg Given 04/06/2025 8:29 PM EDT 1 mg Given 04/06/2025 9:07 AM EDT 1 mg methenamine hippurate (HIPREX) tablet 1 g 1 g, oral, Daily, First dose on Sun04/01/25 at 0900, For 3 days, Indication: Urinary Tract/Genitourinary Given 04/03/2025 8:48 AM EDT 1 g Given 04/02/2025 8:54 AM EDT 1 g Given 04/01/2025 2:06 PM EDT 1 g metoprolol succinate (TOPROL-XL) 24 Hour tablet 25 mg 25 mg, oral, Daily, First dose on Sun04/01/25 at 0900, Do not crush or chew. Given 04/07/2025 9:02 AM EDT 25 mg Given 04/06/2025 8:25 AM EDT 25 mg Given 04/05/2025 8:19 AM EDT 25 mg nicotine (NICODERM CQ) 7 mg/24 hr 1 patch 1 patch, transdermal, Administer over 24 Hours, Once, On 04/04/25 at 1601, For 1 dose Patch Applied 04/04/2025 4:24 PM EDT 1 patch Right Arm OXcarbazepine (TRILEPTAL) tablet 600 mg 600 mg, oral, 2 times daily, First dose on Sun04/01/25 at 0900, Hazardous Medication Intact: - Single pair of ASTM standard [id number] certified gloves - Eye/face protection if vomit or potential to spit up Manipulated: - Double pair of ASTM standard [id number] certified gloves - Eye/face protection if vomit or potential to spit up - Staff at reproductive risk must also wear a hazardous gown - Crushing must be performed in sealed closed pouch - Splitting/cutting should be performed by pharmacy, if possible Given 04/07/2025 8:53 AM EDT 600 mg Given 04/06/2025 8:24 PM EDT 600 mg Given 04/06/2025 8:25 AM EDT 600 mg polyethylene glycol (MIRALAX) packet 17 g 17 g, oral, Daily, First dose on Sun04/07/25 at 1130 Given 04/07/2025 12:02 PM EDT 17 g potassium chloride (KLOR-CON M10) CR tablet 10 mEq 10 mEq, oral, 2 times daily, First dose on Sun04/01/25 at 0900, For 3 doses, Tablet may be swallowed whole (do not crush/chew/suck on) OR broken in half and each half swallowed separately OR dissolved (whole tablet) in ~4 ounces of water (allow ~2 minutes to dissolve, stir well and administer immediately). Given 04/02/2025 8:47 AM EDT 10 mEq Given 04/01/2025 8:15 PM EDT 10 mEq Given 04/01/2025 8:46 AM EDT 10 mEq prazosin (MINIPRESS) capsule 1 mg 1 mg, oral, Nightly, First dose on Sun04/09/25 at 2100, For 7 days prazosin (MINIPRESS) capsule 2 mg 2 mg, oral, Nightly, First dose on Andressa 04/02/25 at 2100, For 7 doses Given 04/06/2025 8:23 PM EDT 2 mg Given 04/05/2025 8:07 PM EDT 2 mg Given 04/04/2025 8:45 PM EDT 2 mg prazosin (MINIPRESS) capsule 3 mg 3 mg, oral, Nightly, First dose on Sun04/01/25 at 2100 Given 04/01/2025 8:15 PM EDT 3 mg pregabalin (LYRICA) capsule 200 mg 200 mg, oral, 2 times daily, First dose on Sun04/01/25 at 0900 Given 04/06/2025 8:25 AM EDT 200 mg Given 04/05/2025 8:09 PM EDT 200 mg Given 04/05/2025 8:19 AM EDT 200 mg pregabalin (LYRICA) capsule 200 mg 200 mg, oral, 2 times daily, First dose on Sun04/06/25 at 2100 Given 04/07/2025 8:54 AM EDT 200 mg Given 04/06/2025 8:20 PM EDT 200 mg QUEtiapine (SEROquel) tablet 400 mg 400 mg, oral, Nightly, First dose on Sun04/01/25 at 2100 Given 04/05/2025 8:08 PM EDT 400 mg Given 04/04/2025 8:46 PM EDT 400 mg Given 04/03/2025 8:20 PM EDT 400 mg QUEtiapine (SEROquel) tablet 400 mg 400 mg, oral, Nightly, First dose on Sun04/06/25 at 2100 Given 04/06/2025 8:21 PM EDT 400 mg revefenacin (YUPELRI) 175 mcg/3 mL nebulizer solution 175 mcg 175 mcg, nebulization, Daily, First dose on Sun04/06/25 at 1130, Therapeutic substitution for TRELEGY ELLIPTA is budesonide neb once daily, formoterol neb twice daily, and revefenacin neb once daily. Given 04/07/2025 7:28 AM EDT 175 mcg senna (SENOKOT) tablet 17.2 mg 17.2 mg (2 tablet), oral, Daily, First dose on Sun04/06/25 at 1115, For 281 days Given 04/07/2025 8:49 AM EDT 17.2 m g Given 04/06/2025 11:30 AM EDT 17.2 mg traZODone (DESYREL) tablet 25 mg 25 mg, oral, Every 8 hours, First dose on 04/04/25 at 2342, Indications: I need 11 refills. This is a re-order for a script that did not go through yesterday, for [place]. Please have these mailed to the Center by tomorrow. Attn: Carole Aquino LPNIndications:I need 11 refills. This is a re-order for a script that did not go through yesterday, for [place]. Please have these mailed to the Center by tomorrow. Attn: Carole Aquino LPN Given 04/05/2025 3:47 PM EDT 25 mg Given 04/05/2025 6:59 AM EDT 25 mg documented in this encounter Discontinued Medications Medication Sig Discontinue Reason Start Date End Da te pregabalin (Lyrica) 200 mg capsule Take 1 capsule (200 mg total) by mouth 2 (two) times a day. Max Daily Amount: 400 mg Stop Taking at Discharge 04/07/2025 04/07/2025 acetaminophen (TYLENOL) 500 mg tablet Take 2 tablets (1,000 mg total) by mouth every 8 (eight) hours for 10 days. 04/07/2025 04/07/2025 docusate sodium (COLACE) 100 mg capsule Take 1 capsule (100 mg total) by mouth 2 (two) times a day for 10 days. 04/07/2025 04/07/2025 polyethylene glycol (MIRALAX) 17 gram packet Take 17 g by mouth 1 (one) time each day for 3 days. 04/08/2025 04/07/2025 cefpodoxime (VANTIN) 200 mg tablet Take 1 tablet (200 mg total) by mouth 2 (two) times a day for 7 days. 04/07/2025 04/07/2025 OXcarbazepine (TRILEPTAL) 300 mg tabletIndications:Con version disorder with attacks or seizures,Bipolar 1 disorder (CMS/HCC V24, CMS/HCC V28) Take 2 tablets (600 mg total) by mouth 2 (two) times a day. Stop Taking at Discharge 10/03/2024 04/07/2025 metoprolol succinate (TOPROL-XL) 25 mg 24 hr tabletIndications:Sin us tachycardia Take 1 tablet (25 mg total) by mouth 1 (one) time each day. Do not crush or chew. Stop Taking at Discharge 10/03/2024 04/07/2025 methenamine hippurate (HIPREX) 1 gram tabletIndications:Rec urrent UTI Take 1 tablet (1 g total) by mouth 1 (one) time each day in the morning. 1 tab by mouth every morning Stop Taking at Discharge 10/03/2024 04/07/2025 lidocaine (Aspercreme, lidocaine,) 4 % patchIndications:Fibr omyalgia Apply 1 patch topically 1 (one) time each day. Stop Taking at Discharge 10/03/2024 04/07/2025 QUEtiapine (SeroqueL) 400 mg tabletIndications:Bip olar 1 disorder (CMS/HCC V24, CMS/HCC V28) Take 1 tablet (400 mg total) by mouth at bedtime. Center ([facility]) Stop Taking at Discharge 10/03/2024 04/07/2025 potassium chloride (MICRO-K) 10 mEq CR capsuleIndications:Hy pertensive heart disease with congestive heart failure, unspecified heart failure type (CMS/HCC V24, CMS/HCC V28) Take 1 capsule (10 mEq total) by mouth 2 (two) times a day. Stop Taking at Discharge 10/22/2024 04/07/2025 prazosin (MINIPRESS) 1 mg capsuleIndications:Po st-traumatic stress disorder, acute Take 3 capsules (3 mg total) by mouth at bedtime. Stop Taking at Discharge 01/12/2025 04/07/2025 sodium,potassium,mag sulfates (Suprep Bowel Prep Kit) 17.5-3.13-1.6 gram recon soln bowel prep kit oral solution Take 177ML by mouth for 2 doses. SEE INSTRUCTIONS PROVIDED BY OFFICE. Stop Taking at Discharge 02/12/2025 04/07/2025 buPROPion XL (WELLBUTRIN XL) 300 mg 24 hr tabletIndications:Bip olar 1 disorder (CMS/HCC V24, CMS/HCC V28) Take 1 tablet (300 mg total) by mouth 1 (one) time each day in the morning. Do not crush, chew, or split. Stop Taking at Discharge 02/26/2025 04/07/2025 buPROPion XL (WELLBUTRIN XL) 150 mg 24 hr tabletIndications:Bip olar 1 disorder ([facility] V24, [facility] V28) Take 1 tablet (150 mg total) by mouth 1 (one) time each day in the morning. Do not crush, chew, or split. To total 450 mg daily. Stop Taking at Discharge 02/26/2025 04/07/2025 ipratropium-albuteroL (DUONEB) 0.5-2.5 mg/3 mL nebulizer solutionIndications:C hronic obstructive pulmonary disease, unspecified COPD type ([facility] V24, [facility] V28) Take 3 mL by nebulization 3 (three) times a day if needed for wheezing. Stop Taking at Discharge 02/26/2025 04/07/2025 traZODone (DESYREL) 50 mg tabletIndications:I need 11 refills. This is a re-order for a script that did not go through yesterday, for [place]. Please have these mailed to the Center by tomorrow. Attn: Carole Aquino LPN Take 0.5 tablets (25 mg total) by mouth every 8 (eight) hours. Stop Taking at Discharge 02/26/2025 04/07/2025 hydrOXYzine HCL (ATARAX) 25 mg tabletIndications:Anx iety Take 1 tablet (25 mg total) by mouth 3 (three) times a day. Stop Taking at Discharge 03/25/2025 04/07/2025 ketorolac 30 mg/mL injectionIndications: Other chest pain Inject 1 mL (30 mg total) into the shoulder, thigh, or buttocks 1 (one) time for 1 dose. Stop Taking at Discharge 03/25/2025 04/07/2025 pregabalin (Lyrica) 200 mg capsuleIndications:Ot her chest pain,Fibromyalgia Take 1 capsule (200 mg total) by mouth 2 (two) times a day. Max Daily Amount: 400 mg Stop Taking at Discharge 03/25/2025 04/07/2025 documented as of this encounter Active and Recently Administered Medications Times are shown in EDT. Scheduled Medication Order 04/05/2025 04/06/2025 04/07/2025 acetaminophen (TYLENOL) tablet 1,000 mg 1,000 mg, oral, Every 8 hours scheduled, First dose on Sun04/07/25 at 1400 1420 (Given - Provider: An Norton, LOUISE) apixaban (ELIQUIS) tablet 5 mg (CANCELED) 5 mg, oral, 2 times daily, First dose on Sun04/01/25 at 0900, Indication: VTE/PE Treatment 818 (Given - Provider: Celestine Vaughn, LOUISE)2010 (Given - Provider: Deysi Adams, LOUISE) 08 (Given - Provider: Jayshree Moya RN) apixaban (ELIQUIS) tablet 5 mg 5 mg, oral, 2 times daily, First dose on Sun04/06/25 at 2100, Indication: Atrial Fibrillation 2021 (Given - Provider: Cas Davis, LOUISE) 0852 (Given - Provider: An Norton RN) aspirin chewable tablet 81 mg 81 mg, oral, Nightly, First dose on 04/04/25 at 2342, For 328 days 0046 (Not Given - Provider: Eulalia Le RN - Reason: Other)2010 (Given - Provider: Deysi Adams RN) 2022 (Given - Provider: Cas Davis, LOUISE) atorvastatin (LIPITOR) tablet 40 mg 40 mg, oral, Nightly, First dose on 04/04/25 at 2342 0046 (Not Given - Provider: Eulalia Le RN - Reason: Other)2010 (Given - Provider: Deysi Adams RN) 2021 (Given - Provider: Cas Davis RN) budesonide (PULMICORT) 1 mg/2 mL nebulizer solution 1 mg(Linked Group 1) 1 mg, nebulization, Daily, First dose on Sun04/06/25 at 1130, Rinse mouth with water after use to reduce aftertaste and incidence of candidiasis. Do not swallow. Therapeutic substitution for TRELEGY ELLIPTA is budesonide neb once daily, formoterol neb twice daily, and revefenacin neb once daily. 1132 (Not Given - Provider: Beverly De RRT - Reason: Other - Comment: changed to standard tx times) 0725 (Given - Provider: Gibran Ho, INTERIOR HORTICULTURIST) buPROPion XL (WELLBUTRIN XL) 24 hr tablet 150 mg 150 mg, oral, Every morning, First dose (after last modification) on Sun04/08/25 at 0700, For 3 doses, Do not crush, chew, or split. buPROPion XL (WELLBUTRIN XL) 24 hr tablet 300 mg (CANCELED) 300 mg, oral, Daily, First dose on Sun04/01/25 at 0900, Do not crush, chew, or split. 0818 (Given - Provider: Celestine Vaughn RN) 08 (Given - Provider: Jayshree Moya, LOUISE) buPROPion XL (WELLBUTRIN XL) 24 hr tablet 300 mg (CANCELED) 300 mg, oral, Every morning, First dose on Sun04/07/25 at 0700, Do not crush, chew, or split. 06 (Given - Provider: Cas Davis, LOUISE) cefTRIAXone (ROCEPHIN) 1 g in sterile water 10 mL IV syringe 1 g, intravenous, Administer over 3 Minutes, Every 24 hours, First dose on Sun04/06/25 at 1000, For 5 days, Do not administer simultaneously with any calcium containing solutions via a Y-site in any patient., Indication: Urinary Tract/Genitourinary 1025 (Given - Provider: An Norton RN) 1031 (Given - Provider: An Norton RN) docusate sodium (COLACE) capsule 100 mg 100 mg, oral, 2 times daily, First dose on Sun04/07/25 at 1130 1157 (Given - Provider: An Norton RN) famotidine (PEPCID) tablet 40 mg 40 mg, oral, Nightly, First dose on Sun04/04/25 at 2342, For 311 days 0046 (Not Given - Provider: Eulalia Le RN - Reason: Other)2010 (Given - Provider: Deysi Adams RN) 2024 (Given - Provider: Cas Davis RN) FLUoxetine (PROzac) capsule 40 mg 40 mg, oral, Daily, First dose on Sun04/01/25 at 0900 0818 (Given - Provider: Celestine Vaughn RN) 08 (Given - Provider: Jayshree Griffin, RN) 0848 (Given - Provider: An Norton RN) formoterol (PERFOROMIST) 20 mcg/2 mL nebulizer solution 20 mcg(Linked Group 1) 20 mcg, nebulization, 2 times daily, First dose on Sun04/06/25 at 1130, Therapeutic substitution for TRELEGY ELLIPTA is budesonide neb once daily, formoterol neb twice daily, and revefenacin neb once daily. 1131 (Not Given - Provider: Beverly De, INTERIOR HORTICULTURIST - Reason: Other - Comment: pm med)2056 (Not Given - Provider: Shyann Nguyen, INTERIOR HORTICULTURIST - Reason: Patient/Resident/Ag ent refused - education provided ) 723 (Given - Provider: Gibran Ho, INTERIOR HORTICULTURIST - Comment: due) hydrOXYzine HCL (ATARAX) tablet 25 mg (CANCELED) 25 mg, oral, 3 times daily, First dose on Sun04/05/25 at 0900 0819 (Given - Provider: Celestine Vaughn RN)1407 (Given - Provider: Celestine Vaughn RN)2008 (Given - Provider: Deysi Adams RN) 08 (Given - Provider: Jayshree Moya, LOUISE)133 (Given - Provider: An Norton, LOUISE)2021 (Given - Provider: Cas Davis RN) lidocaine 4 % patch 1 patch 1 patch, Topical, Administer over 12 Hours, Daily, First dose on Sun04/07/25 at 1030, Apply to shoulder pain . 1028 (Patch Applied - Provider: An Norton RN - Comment: applied to posterior left shoulder)1638 (Due: Patch Removed - Provider: Automatic Discharge Provider - Comment: Time automatically adjusted from order being discontinued) metoprolol succinate (TOPROL-XL) 24 Hour tablet 25 mg 25 mg, oral, Daily, First dose on Sun04/01/25 at 0900, Do not crush or chew. 0819 (Given - Provider: Celestine Vaughn RN) 0825 (Given - Provider: Jayshree Moya, LOUISE) 901 (Given - Provider: An Norton, LOUISE - Comment: physician notified of BP and HR, physician replied Dont hold,ok to give ) OXcarbazepine (TRILEPTAL) tablet 600 mg 600 mg, oral, 2 times daily, First dose on Sun04/01/25 at 0900, Hazardous Medication Intact: - Single pair of ASTM standard D6978 certified gloves - Eye/face protection if vomit or potential to spit up Manipulated: - Double pair of ASTM standard D6978 certified gloves - Eye/face protection if vomit or potential to spit up - Staff at reproductive risk must also wear a hazardous gown - Crushing must be performed in sealed closed pouch - Splitting/cutting should be performed by pharmacy, if possible 08 (Given - Provider: Celestine Vaughn, LOUISE)2007 (Given - Provider: Deysi Adams, LOUISE) 824 (Given - Provider: Jayshree Moya, RN)2023 (Given - Provider: Cas Davis, RN) 852 (Given - Provider: An Norton, RN) polyethylene glycol (MIRALAX) packet 17 g 17 g, oral, Daily, First dose on Sun04/07/25 at 1130 1202 (Given - Provider: An Norton, RN) prazosin (MINIPRESS) capsule 1 mg 1 mg, oral, Nightly, First dose on Sun04/09/25 at 2100, For 7 days prazosin (MINIPRESS) capsule 2 mg 2 mg, oral, Nightly, First dose on Sun04/02/25 at 2100, For 7 doses 2006 (Given - Provider: Deysi Adams, LOUISE) 2022 (Given - Provider: Cas Davis, LOUISE) pregabalin (LYRICA) capsule 200 mg (CANCELED) 200 mg, oral, 2 times daily, First dose on Sun04/01/25 at 0900 08 (Given - Provider: Celestine Vaughn RN)2008 (Given - Provider: Deysi Adams, LOUISE) 824 (Given - Provider: Jayshree Moya, LOUISE) pregabalin (LYRICA) capsule 200 mg 200 mg, oral, 2 times daily, First dose on Sun04/06/25 at 2100 2019 (Given - Provider: Cas Davis, LOUISE) 853 (Given - Provider: An Norton, LOUISE) QUEtiapine (SEROquel) tablet 400 mg (CANCELED) 400 mg, oral, Nightly, First dose on Sun04/01/25 at 2100 2007 (Given - Provider: Deysi Adams, LOUISE) QUEtiapine (SEROquel) tablet 400 mg 400 mg, oral, Nightly, First dose on 04/06/25 at 2100 2020 (Given - Provider: Cas Davis RN) revefenacin (YUPELRI) 175 mcg/3 mL nebulizer solution 175 mcg(Linked Group 1) 175 mcg, nebulization, Daily, First dose on 04/06/25 at 1130, Therapeutic substitution for TRELEGY ELLIPTA is budesonide neb once daily, formoterol neb twice daily, and revefenacin neb once daily. 1132 (Not Given - Provider: Beverly De INTERIOR HORTICULTURIST - Reason: Other - Comment: changed to standard tx times) 0728 (Given - Provider: Gibran Ho, INTERIOR HORTICULTURIST - Comment: due) senna (SENOKOT) tablet 17.2 mg 17.2 mg (2 tablet), oral, Daily, First dose on 04/06/25 at 1115, For 281 days 1130 (Given - Provider: An Norton RN) 0849 (Given - Provider: An Norton RN) traZODone (DESYREL) tablet 25 mg (CANCELED) 25 mg, oral, Every 8 hours, First dose on 04/04/25 at 2342, Indications: I need 11 refills. This is a re-order for a script that did not go through yesterday, for [place]. Please have these mailed to the Center by tomorrow. Attn: Carole Aquino, PEACH GROWER 0013 (Not Given - Provider: Eulalia Le RN - Reason: Other)0659 (Given - Provider: Eulalia Le RN)1547 (Given - Provider: Celestine Vaughn RN)2329 (Not Given - Provider: Landen Garcia RN - Reason: Other - Comment: pt asleep and unsure of who placed the order) 0737 (Not Given - Provider: Jayshree Moya RN - Reason: Other - Comment: pt sleeping. unable to verify if patient actually takes trazodone in the morning)1555 (Not Given - Provider: An Norton RN - Reason: See Provider Order) PRN Medication Order 04/05/2025 04/06/2025 04/07/2025 acetaminophen (TYLENOL) tablet 500 mg (COMPLETED) 500 mg, oral, Every 6 hours PRN, mild pain, Starting on Andressa 04/02/25 at 1821, For 3 doses 0659 (Given - Provider: Eulalia Le RN) albuterol 2.5 mg /3 mL (0.083 %) nebulizer solution 2.5 mg 2.5 mg, nebulization, Every 6 hours PRN, wheezing, Starting on Sun04/06/25 at 1055 ipratropium-albuteroL (DUONEB) 0.5-2.5 mg/3 mL nebulizer solution 3 mL 3 mL, nebulization, 3 times daily PRN, wheezing, Starting on Sun04/06/25 at 1101 LORazepam (ATIVAN) tablet 1 mg 1 mg, oral, Every 8 hours PRN, anxiety, Starting on Sun04/01/25 at 0412 0659 (Given - Provider: Eulalia Le RN)1547 (Given - Provider: Celestine Vaughn RN) 0907 (Given - Provider: Jayshree Moya RN)2029 (Given - Provider: Cas Davis, LOUISE) 1206 (Given - Provider: An Norton, LOUISE) sodium phosphate (FLEET) enema 133 mL 133 mL, rectal, Daily PRN, constipation, Starting on Sun04/06/25 at 1057 Linked Groups Order Group 1: formoterol (PERFOROMIST) 20 mcg/2 mL nebulizer solution 20 mcgJump to med 20 mcg, nebulization, 2 times daily, First dose on Sun04/06/25 at 1130, Therapeutic substitution for TRELEGY ELLIPTA is budesonide neb once daily, formoterol neb twice daily, and revefenacin neb once daily. And budesonide (PULMICORT) 1 mg/2 mL nebulizer solution 1 mgJump to med 1 mg, nebulization, Daily, First dose on Sun04/06/25 at 1130, Rinse mouth with water after use to reduce aftertaste and incidence of candidiasis. Do not swallow. Therapeutic substitution for TRELEGY ELLIPTA is budesonide neb once daily, formoterol neb twice daily, and revefenacin neb once daily. And revefenacin (YUPELRI) 175 mcg/3 mL nebulizer solution 175 mcgJump to med 175 mcg, nebulization, Daily, First dose on 04/06/25 at 1130, Therapeutic substitution for TRELEGY ELLIPTA is budesonide neb once daily, formoterol neb twice daily, and revefenacin neb once daily. documented in this encounter Orders Medications Ordered That Kojo ht Not Have Been Administered Count Last Ordered Date First Ordered Date buPROPion XL (WELLBUTRIN XL) 24 hr tablet 150 mg 2 04/07/2025 04/06/2025 prazosin (MINIPRESS) capsule 1 mg 1 025 albuterol 2.5 mg /3 mL (0.08 3 %) nebulizer solution 2.5 mg 1 04/06/2025 ipratropium-albuteroL (DUONE B) 0.5-2.5 mg/3 mL nebulizer solution 3 mL 1 04/06/2025 ketorolac (TORADOL) injection 30 mg 1 04/06 lidocaine 4 % patch 1 patch 1 04/06/2025 prazosin (MINIPRESS) capsule 3 mg 1 025 sodium phosphate (FLEET) enema 133 mL 1 hydrOXYzine pamoate (VISTARI L) capsule 25 mg 1 04/01/2025 Lab Orders Without Results Count Last Ordered D ate First Ordered Date POCT GLUCOSE, BLOOD 1 03/31/2025 Nursing Count Last Ordered Date First Orde red Date VITAL SIGNS 1 03/31/2025 Consult Count Last Ordered Date First Orde red Date IP CONSULT TO SOCIAL WORK 1 04/03/2025 IP CONSULT TO PSYCHIATRY 1 04/02/2025 Admission Count Last Ordered Date First Orde red Date INITIATE OBSERVATION STATUS 1 04/06/2025 Discharge Count Last Ordered Date First Orde red Date DISCHARGE PATIENT 1 04/07/2025 documented in this encounter Additional Health Concerns Assessment Noted Time PHQ-9 Depression Total Score: 18 025 1:13 PM EDT documented as of this encounter Care Teams Buggy Runner Relationship Specialty Start Date End Date Dede Pimentel NP [address] [facility] [address] [place] [address] PCP - General Family Medicine 05/02/24 documented as of this encounter
--- OUTSIDE RECORDS SUMMARY | 2025-04-06 11:00 | XMS_ITS | Encounter Summary ---
Author Organization [facility] Address [address] [place] [address] Care Team Providers Care Cosmetologist Name Role Phone Dede Pimentel [employer] Primary Care Provider [phone] Reason for Visit * Imaging (Routine) - Authorized Specialty Diagnoses / Procedures Referred By Genesis gomez Referred To Contact Radiology Diagnoses Multiple nodules of lung Procedures CT Chest wo Contrast Dede Pimentel, TAYA [address] [facility] [address] [place] [address] Phone: tel: fax: CT Scan [address] [place] [address] Phone: tel: Referral ID Status Reason Start Date Expiration Date V isits Requested Visits Authorized [id number] Authorized 01/01/2025 01/01/2026 1 1 Encounter Details Date Type Department Care Team (Late st Contact Info) Description 04/06/2025 11:00 AM EDT Hospital Encounter CT Scan [address] [place] [address] Social History Tobacco Use Types Packs/Day Years [...] as of this encounter Functional Status * Are you [...] 8:29 AM EDT Chris Moya RN * [place] Suicide Severity Rating Scale (Screener/Recent Self-Report) Question Answer Date of Assessment Author 1. Wish to be (Past 1 Month) No 025 8:29 AM EDT Jayshree Moya RN 2. Non-Specific Active Suici mimi Thoughts (Past 1 Month) No 04/06/2025 8:29 AM EDT Jayshree Moya LOUISE 6. Suicidal Behavior (Lifetime) No 8:29 AM EDT Jayshree Moya RN documented as of this encounter Mental Status * Because of a physical, mental, or emotional condition, do you have serious difficulty concentrating, remembering, or making decisions? (5 years old or older) Answer Entry Date Author No 04/01/2025 8:17 PM EDT Macrina Lezama RN documented in this encounter Plan of Treatment Upcoming Encounters Date Type Department Care Team (Late st Contact Info) Description 04/09/2025 11:30 AM EDT Clinical Support [facility] [place] [address] [place] [address] 04/13/2025 [facility] Attend[facility] [facility] [place] [facility] [address] [place] [phone] 04/13/2025 7:30 AM EDT PACE Home Care / [facility] [place] [facility] [place] [facility] [address] [place] [address] Cheryle Pryor 04/13/2025 9:00 AM EDT [facility] [facility] [place] [facility] [address] [place] [phone] 04/14/2025 7:30 AM EDT PACE Home Care / [facility] [place] [facility] [place] [facility] [address] [place] [phone] Cheryle Pryor 04/14/2025 10:30 AM EDT PACE Home Care / [facility] [place] [facility] [address] [place] [phone] Cheryle Pryor 04/14/2025 1:00 PM EDT Clinical Support Lung Screening Program - [address] [place] [address] 04/15/2025 7:30 AM EDT PACE Home Care / [facility] [place] [facility] [place] [facility] [address] [place] [address] Cheryle Pryor 04/15/2025 9:00 AM EDT [facility] [place] [facility] [address] [place] [address] 04/16/2025 7:30 AM EDT PACE Home Care / [facility] [place] [facility] [address] [place] [phone] Cheryle Pryor 04/17/2025 7:30 AM EDT PACE Home Care / [facility] [place] [facility] [address] [place] [phone] Shawna Lebron 04/17/2025 10:30 AM EDT PACE Home Care / [facility] [place] [facility] [address] [place] [phone] Jhoana Grijalva 04/18/2025 7:30 AM EDT PACE Home Care / [facility] [place] [facility] [address] [place] [phone] Jhoana Grijalva 04/19/2025 7:30 AM EDT PACE Home Care / [facility] [place] [facility] [address] [place] [phone] Jhoana Grijalva 04/20/2025 [facility] Attend[facility] [facility] [place] [facility] [address] [place] [phone] 04/20/2025 7:30 AM EDT PACE Home Care / [facility] [place] [facility] [address] [place] [phone] Cheryle Pryor 04/20/2025 9:00 AM EDT [facility] [facility] [place] [facility] [address] [place] [address] 04/21/2025 7:30 AM EDT PACE Home Care / [facility] [place] [facility] [address] [place] [address] Cheryle Pryor 04/21/2025 10:30 AM EDT PACE Home Care / [facility] [place] [facility] [address] [place] [address] Cheryle Pryor 04/22/2025 7:30 AM EDT PACE Home Care / [facility] [place] [facility] [place] [facility] [address] [place] [address] Cheryle Pryor 04/22/2025 9:00 AM EDT [facility] [facility] [place] [facility] [address] [place] [address] 04/23/2025 7:30 AM EDT PACE Home Care / [facility] [place] [facility] [address] [place] [address] Cheryle Pryor 04/24/2025 11:30 AM EDT PACE Home Care / [facility] [place] [facility] [address] [place] [phone] Juanito Wasserman 04/25/2025 7:30 AM EDT PACE Home Care / [facility] [place] [facility] [address] [place] [phone] Cheryle Pryor 04/26/2025 7:30 AM EST PACE Home Care / [facility] [place] [facility] [address] [place] [phone] Cheryle Pryor 04/27/2025 [facility] Attendance[facility] [facility] [place] [facility] [address] [place] [address] 04/27/2025 7:30 AM EST PACE Home Care / [facility] [place] [facility] [place] [facility] [address] [place] [phone] Cheryle Pryor 04/27/2025 9:00 AM EST [facility] [facility] [place] [facility] [address] [place] [address] 04/28/2025 7:30 AM EST PACE Home Care / [facility] [place] [facility] [address] [place] [phone] Cheryle Pryor 04/28/2025 10:30 AM EST PACE Home Care / [facility] [place] [facility] [address] [place] [phone] Cheryle Pryor 04/29/2025 7:30 AM EST PACE Home Care / [facility] [place] [facility] [address] [place] [phone] Cheryle Pryor 04/29/2025 9:00 AM EST [facility] [facility] [place] [facility] [address] [place] [phone] 04/30/2025 7:30 AM EST PACE Home Care / [facility] [place] [facility] [address] [place] [phone] Cheryle Pryor 05/01/2025 7:30 AM EST PACE Home Care / [facility] [place] [facility] [address] [place] [phone] Shawna Lebron 05/01/2025 10:30 AM EST PACE Home Care / [facility] [place] [facility] [address] [place] [phone] Jhoana Grijalva 05/02/2025 7:30 AM EST PACE Home Care / [facility] [place] [facility] [address] [place] [phone] Jhoana Grijalva 05/03/2025 7:30 AM EST PACE Home Care / [facility] [place] [facility] [address] [place] [phone] Jhoana Grijalva 05/04/2025 [facility] Att[facility] [facility] [place] [facility] [address] [place] [phone] 05/04/2025 7:30 AM EST PACE Home Care / [facility] [place] [facility] [address] [place] [phone] Cheryle Pryor 05/04/2025 9:00 AM EST [facility] [facility] [place] [facility] [address] [place] [phone] 05/05/2025 7:30 AM EST PACE Home Care / [facility] [place] [facility] [address] [place] [phone] Cheryle Pryor 05/05/2025 10:30 AM EST PACE Home Care / [facility] [place] [facility] [address] [place] [phone] Cheryle Pryor 05/06/2025 7:30 AM EST PACE Home Care / [facility] [place] [facility] [address] [place] [phone] Cheryle Pryor 05/06/2025 9:00 AM EST [facility] Att[facility] [facility] [place] [facility] [address] [place] [phone] 05/07/2025 7:30 AM EST P[facility] Home Care / [facility] [place] [facility] [address] [place] [phone] Cheryle Pryor 05/07/2025 9:00 AM EST Appointment [address] [phone] Rambo Barlow MD [address] [address] 05/08/2025 7:30 AM EST PACE Home Care / [facility] [place] [facility] [address] [place] [phone] Shawna Lebron 05/08/2025 10:30 AM EST PACE Home Care / [facility] [place] [facility] [address] [place] [phone] Jhoana Grijalva 05/09/2025 7:30 AM EST PACE Home Care / [facility] [place] [facility] [address] [place] [phone] Cheryle Pryor 05/10/2025 7:30 AM EST PACE Home Care / [facility] [place] [facility] [address] [place] [phone] Cheryle Pryor 05/11/2025 [facility] Attendance[facility] [facility] [place] [facility] [address] [place] [phone] 05/11/2025 7:30 AM EST PACE Home Care / [facility] [place] [facility] [address] [place] [phone] Cheryle Pryor 05/11/2025 9:00 AM EST [facility] [facility] [place] [facility] [address] [place] [phone] 05/12/2025 7:30 AM EST PACE Home Care / [facility] [place] [facility] [address] [place] [phone] Cheryle Pryor 05/12/2025 10:30 AM EST PACE Home Care / [facility] [place] [facility] [address] [place] [address] Cheryle Pryor 05/13/2025 7:30 AM EST PACE Home Care / [facility] [place] [facility] [address] [place] [phone] Cheryle Pryor 05/13/2025 9:00 AM EST [facility] [facility] [place] [facility] [address] [place] [address] 05/14/2025 7:30 AM EST PACE Home Care / [facility] [place] [facility] [address] [place] [phone] Cheryle Pryor 05/15/2025 7:30 AM EST PACE Home Care / [facility] [place] [facility] [address] [place] [phone] Shawna Lebron 05/15/2025 10:30 AM EST PACE Home Care / [facility] [place] [facility] [address] [place] [phone] Jhoana Grijalva 05/16/2025 7:30 AM EST PACE Home Care / [facility] [place] [facility] [address] [place] [phone] Jhoana Grijalva 05/17/2025 7:30 AM EST PACE Home Care / [facility] [place] [facility] [address] [place] [phone] Jhoana Grijalva 05/18/2025 [facility] Attendance[facility] [facility] [place] [facility] [address] [place] [phone] 05/18/2025 7:30 AM EST PACE Home Care / [facility] [place] [facility] [address] [place] [phone] Cheryle Pryor 05/18/2025 9:00 AM EST [facility] Att[facility] [facility] [place] [facility] [address] [place] [address] 05/19/2025 7:30 AM EST PACE Home Care / [facility] [place] [facility] [address] [place] [phone] Cheryle Pryor 05/19/2025 10:30 AM EST PACE Home Care / [facility] [place] [facility] [address] [place] [phone] Cheryle Pryor 05/20/2025 7:30 AM EST PACE Home Care / [facility] [place] [facility] [address] [place] [phone] Cheryle Pryor 05/20/2025 9:00 AM EST [facility] Att[facility] [facility] [place] [facility] [address] [place] [phone] 05/21/2025 7:30 AM EST PACE Home Care / [facility] [place] [facility] [address] [place] [phone] Cheryel Pryor 05/22/2025 7:30 AM EST PACE Home Care / [facility] [place] [facility] [address] [place] [phone] Shawna Lebron 05/22/2025 10:30 AM EST PACE Home Care / [facility] [place] [facility] [address] [place] [phone] Jhoana Grijalva 05/23/2025 7:30 AM EST PACE Home Care / [facility] [place] [facility] [address] [place] [phone] Cheryle Pryor 05/24/2025 7:30 AM EST PACE Home Care / [facility] [place] [facility] [address] [place] [address] Cheryle Pryor 05/25/2025 [facility] Att[facility] [facility] [place] [facility] [address] [place] [address] 05/25/2025 7:30 AM EST PACE Home Care / [facility] [place] [facility] [address] [place] [phone] Cheryle Pryor 05/25/2025 9:00 AM EST [facility] [facility] [place] [facility] [address] [place] [phone] 05/26/2025 7:30 AM EST PACE Home Care / [facility] [place] [facility] [address] [place] [phone] Cheryle Pryor 05/26/2025 10:30 AM EST PACE Home Care / [facility] [place] [facility] [address] [place] [phone] Cheryle Pryor 05/27/2025 7:30 AM EST PACE Home Care / [facility] [address] [place] [phone] Cheryle Pryor 05/27/2025 9:00 AM EST [facility] Att[facility] [facility] [place] [facility] [address] [place] [phone] 05/28/2025 7:30 AM EST PACE Home Care / [facility] [address] [place] [phone] Cheryle Pryor 05/29/2025 7:30 AM EST PACE Home Care / [facility] [address] [place] [phone] Shawna Lebron 05/29/2025 10:30 AM EST PACE Home Care / [facility] [address] [place] [address] Jhoana Grijalva 05/30/2025 7:30 AM EST PACE Home Care / [facility] [address] [place] [phone] Jhoana Grijalva 05/31/2025 7:30 AM EST PACE Home Care / [facility] [address] [place] [phone] Jhoana Grijalva 06/01/2025 [facility] Att[facility] [facility] [place] [facility] [address] [place] [phone] 06/01/2025 7:30 AM EST P[facility] Home Care / [facility] [address] [place] [phone] Cheryle Pryor 06/01/2025 9:00 AM EST [facility] [facility] [place] [facility] [address] [place] [phone] 06/02/2025 7:30 AM EST PACE Home Care / [facility] [address] [place] [phone] Cheryle Pryor 06/02/2025 10:30 AM EST PACE Home Care / [facility] [address] [place] [phone] Cheryle Pryor 06/03/2025 7:30 AM EST PACE Home Care / [facility] [place] [facility] [address] [place] [phone] Cheryle Pryor 06/03/2025 9:00 AM EST [facility] Att[facility] [facility] [place] [facility] [address] [place] [address] 06/04/2025 7:30 AM EST P[facility] Home Care / [facility] [address] [place] [address] Cheryle Pryor 06/05/2025 7:30 AM EST PACE Home Care / [facility] [address] [place] [address] Shawna Lebron 06/05/2025 10:30 AM EST PACE Home Care / [facility] [place] [facility] [address] [place] [address] Jhonaa Grijalva 06/06/2025 7:30 AM EST P[facility] Home Care / [facility] [place] [facility] [address] [place] [address] Cheryle Pryor 06/07/2025 7:30 AM EST PACE Home Care / [facility] [place] [facility] [address] [place] [phone] Cheryle Pryor 06/08/2025 P[facility] Attendance[facility] [place] [facility] [address] [place] [address] 06/08/2025 9:00 AM EST [facility] Att[facility] [place] [facility] [address] [place] [address] 06/10/2025 9:00 AM EST [facility] [place] [facility] [address] [place] [address] 06/15/2025 [facility] Att[facility] [place] [facility] [address] [place] [address] 06/15/2025 9:00 AM EST [facility] [place] [facility] [address] [place] [address] 06/17/2025 9:00 AM EST [facility] [place] [facility] [address] [place] [address] 06/22/2025 [facility] Att[facility] [place] [facility] [address] [place] [address] 06/22/2025 9:00 AM EST [facility] [place] [facility] [address] [place] [address] 06/24/2025 9:00 AM EST [facility] [place] [facility] [address] [place] [address] 06/29/2025 [facility] [place] [facility] [address] [place] [phone] 06/29/2025 9:00 AM EST [facility] [place] [facility] [address] [place] [phone] 07/01/2025 9:00 AM EST [facility] [place] [facility] [address] [place] [phone] 07/06/2025 [facility] Att[facility] [place] [facility] [address] [place] [phone] 07/06/2025 9:00 AM EST [facility] [place] [facility] [address] [place] [address] 2025 9:00 AM EST [facility] [place] [facility] [address] [place] [address] 07/13/2025 [facility] Att[facility] [place] [facility] [address] [place] [address] 07/13/2025 9:00 AM EST [facility] [place] [facility] [address] [place] [phone] 07/15/2025 9:00 AM EST [facility] [place] [facility] [address] [place] [phone] 07/20/2025 [facility] [place] [facility] [address] [place] [phone] 07/20/2025 9:00 AM EST [facility] [place] [facility] [address] [place] [phone] 07/22/2025 9:00 AM EST [facility] [place] [facility] [address] [place] [phone] 07/27/2025 [facility] [place] [facility] [address] [place] [phone] 07/27/2025 9:00 AM EST [facility] [place] [facility] [address] [place] [phone] 07/29/2025 9:00 AM EST [facility] [place] [facility] [address] [place] [phone] 08/03/2025 [facility] Att[facility] [place] [facility] [address] [place] [phone] 08/03/2025 9:00 AM EST [facility] [place] [facility] [address] [place] [phone] 08/05/2025 9:00 AM EST [facility] [place] [facility] [address] [place] [phone] 08/10/2025 [facility] Att[facility] [place] [facility] [address] [place] [phone] 08/12/2025 9:00 AM EST [facility] [place] [facility] [address] [place] [address] 08/17/2025 [facility] [place] [facility] [address] [place] [phone] 08/19/2025 9:00 AM EST [facility] [place] [facility] [address] [place] [phone] 08/24/2025 [facility] [place] [facility] [address] [place] [phone] 08/26/2025 9:00 AM EST [facility] [place] [facility] [address] [place] [phone] 08/31/2025 [facility] [place] [facility] [address] [place] [phone] 09/02/2025 9:00 AM EDT [facility] [place] [facility] [address] [place] [phone] 09/07/2025 [facility] Att[facility] [place] [facility] [address] [place] [phone] 09/09/2025 9:00 AM EDT [facility] [place] [facility] [address] [place] [phone] 09/14/2025 [facility] [place] [facility] [address] [place] [phone] 09/16/2025 9:00 AM EDT [facility] [place] [facility] [address] [place] [phone] 09/21/2025 [facility] [place] [facility] [address] [place] [phone] 09/23/2025 9:00 AM EDT [facility] [place] [facility] [address] [place] [address] 09/28/2025 [facility] [place] [facility] [address] [place] [address] 09/30/2025 9:00 AM EDT [facility] [place] [facility] [address] [place] [address] 10/05/2025 [facility] [place] [facility] [address] [place] [phone] 10/07/2025 9:00 AM EDT [facility] [place] [facility] [address] [place] [address] 10/12/2025 [facility] [place] [facility] [address] [place] [address] 10/14/2025 9:00 AM EDT [facility] [place] [facility] [address] [place] [phone] 10/19/2025 [facility] [place] [facility] [address] [place] [phone] 10/21/2025 9:00 AM EDT [facility] [place] [facility] [address] [place] [address] 10/26/2025 [facility] [place] [facility] [address] [place] [address] 10/28/2025 9:00 AM EDT [facility] [place] [facility] [address] [place] [phone] 11/02/2025 [facility] [place] [facility] [address] [place] [address] 11/04/2025 9:00 AM EDT [facility] [place] [facility] [address] [place] [address] 11/09/2025 [facility] [place] [facility] [address] [place] [address] 11/11/2025 9:00 AM EDT [facility] [place] [facility] [address] [place] [address] 11/16/2025 [facility] [place] [facility] [address] [place] [phone] 11/18/2025 9:00 AM EDT [facility] [place] [facility] [address] [place] [phone] 11/23/2025 [facility] [place] [facility] [address] [place] [phone] 11/25/2025 9:00 AM EDT [facility] [place] [facility] [address] [place] [phone] 11/30/2025 [facility] [place] [facility] [address] [place] [phone] 12/02/2025 9:00 AM EDT [facility] [place] [facility] [address] [place] [address] 12/07/2025 [facility] [place] [facility] [address] [place] [phone] 12/09/2025 9:00 AM EDT [facility] [place] [facility] [address] [place] [address] 12/14/2025 [facility] [place] [facility] [address] [place] [address] 12/16/2025 9:00 AM EDT PACE [facility]end[facility] [address] [place] [address] 12/21/2025 [facility]ACE Attendance[facility] [address] [place] [address] 12/23/2025 9:00 AM EDT [facility] Att[facility] [place] [facility] [address] [place] [address] 12/28/2025 [facility] [place] [facility] [address] [place] [phone] 12/30/2025 9:00 AM EDT [facility] [place] [facility] [address] [place] [phone] 01/04/2026 [facility] [place] [facility] [address] [place] [phone] 01/06/2026 9:00 AM EDT [facility] [place] [facility] [address] [place] [phone] 01/11/2026 [facility] [address] [place] [phone] 01/13/2026 9:00 AM EDT [facility] [address] [place] [phone] 01/18/2026 [facility] [address] [place] [phone] 01/20/2026 9:00 AM EDT [facility] [address] [place] [phone] 01/25/2026 [facility] [address] [place] [phone] 01/27/2026 9:00 AM EDT [facility] [address] [place] [phone] 02/01/2026 [facility] [address] [place] [phone] 02/03/2026 9:00 AM EDT [facility] [address] [place] [phone] 02/08/2026 [facility] [address] [place] [phone] 02/10/2026 9:00 AM EDT [facility] [place] [facility] [address] [place] [phone] 02/15/2026 [facility] [place] [facility] [address] [place] [phone] 02/17/2026 9:00 AM EDT [facility] [address] [place] [phone] 02/22/2026 [facility] [place] [facility] [address] [place] [phone] 02/24/2026 9:00 AM EDT [facility] [address] [place] [phone] 03/03/2026 9:00 AM EDT [facility] [address] [place] [phone] 03/10/2026 9:00 AM EDT [facility] [address] [place] [phone] 03/17/2026 9:00 AM EDT [facility] [address] [place] [phone] 03/24/2026 9:00 AM EDT [facility] [place] [facility] [place] [facility] [address] [place] [phone] 03/31/2026 9:00 AM EDT [facility] [address] [place] [phone] 04/07/2026 9:00 AM EDT [facility] [address] [place] [phone] 04/14/2026 9:00 AM EDT [facility] Day [address] [phone] 04/21/2026 9:00 AM EDT [facility] Day [address] [phone] Scheduled Orders Name Type Priority Associated Diagnoses Orde r Schedule CT Chest wo Contrast Imaging Routine Multiple nodules of lung Expected: 04/03/2025, Expires: 01/01/2026 documented as of this encounter Visit Diagnoses Not on filedocumented in this encounter Additional Health Concerns Assessment Noted Time PHQ-9 Depression Total Score: 18 01/12/ 025 1:13 PM EDT documented as of this encounter Care Teams Cosmetologist Relationship Specialty Start Date End Date Dede Pimentel NP [address] [place] [id number] PCP - General Family Medicine 05/02/24 documented as of this encounter
--- NOTE | 2025-04-08 12:21 | ED.GENADULT ---
HPI - General Adult General Chief complaint: Psychiatric Symptoms Stated complaint: mental health, paranoid, change in meds Time Seen by Provider: 04/08/25 13:08 Source: patient, EMS and RN notes reviewed Mode of arrival: EMS Limitations: no limitations History of Present Illness ED Provider: Priyanka Vila PA-C HPI narrative: This is a 64-year-old female, diabetes, with a hx of oxygen-dependent COPD, fibromyalgia, bipolar disorder who presents emergency department after [facility] this afternoon after being combative . Patient reports that she stated that she would not want to be there any longer and wound does like to be discharged home. Son at bedside states that she has acting at her baseline, no current concerns. They were attempting to adjust her medications while she was admitted at [facility] psychiatrically, and they are slowly tapering her off. She is also being treated for urinary tract infection at that time. She states that she is not in any current pain. No fevers or chills. No nausea, vomiting, or diarrhea. She is alert and oriented x4. No other complaints or concerns at this time. MD complaint: ? Combative at [facility] Relieving factors: none Exacerbating factors: none Treatments prior to arrival: none Related Data Home Medications ?Medication ?Instructions ?Recorded ?Confirmed lorazepam 1 mg tablet 1 mg PO TID 08/19/24 04/08/25 atorvastatin 80 mg tablet 40 mg PO BEDTIME 09/26/24 04/08/25 ferrous sulfate 325 mg (65 mg 325 mg PO DAILY 09/26/24 04/08/25 iron) tablet,delayed release albuterol sulfate 90 mcg/actuation 2 puff inhalation Q6H PRN 10/14/24 04/08/25 aerosol inhaler (Ventolin HFA) Shortness Of Breath/Wheezing bumetanide 2 mg tablet 2 mg PO MOWEFR 10/14/24 04/08/25 famotidine 40 mg tablet 40 mg PO BEDTIME 02/10/25 04/08/25 sennosides 8.6 mg tablet (senna) 17.2 mg PO DAILY 02/10/25 04/08/25 acetaminophen 325 mg tablet 650 mg PO Q6H PRN Fever Or Pain 04/08/25 04/08/25 aspirin 81 mg chewable tablet 81 mg PO BEDTIME 04/08/25 04/08/25 bisacodyl 10 mg rectal suppository 10 mg ID DAILY PRN Constipation 04/08/25 04/08/25 bupropion HCl 150 mg 24 hr tablet, 150 mg PO DAILY 04/08/25 04/08/25 extended release capsaicin 0.025 % topical Q6H PRN Pain, Mild 04/08/25 04/08/25 cefpodoxime 200 mg tablet 200 mg PO BID 04/08/25 04/08/25 docusate sodium 100 mg capsule 100 mg PO BID 04/08/25 04/08/25 (Colace) fluoxetine 10 mg capsule 40 mg PO DAILY 04/08/25 04/08/25 lidocaine 4 % topical patch 1 patch topical DAILY 04/08/25 04/08/25 magnesium hydroxide 400 mg/5 mL 30 ml PO DAILY PRN Constipation 04/08/25 04/08/25 oral suspension (Milk of Magnesia) polyethylene glycol 3350 17 17 g PO DAILY 04/08/25 04/08/25 gram/dose oral powder (Miralax) prazosin 2 mg capsule 2 mg PO BEDTIME 04/08/25 04/08/25 sodium phosphates 19 gram-7 118 ml ID DAILY PRN Constipation 04/08/25 04/08/25 gram/118 mL enema (Fleet Enema) Previous Rx's ?Medication ?Instructions ?Recorded apixaban 5 mg tablet (Eliquis) 5 mg PO BID #0 tabs 09/01/24 fluticasone fur. 100 mcg-umeclid 1 inh inhalation RDAILY #0 ea 09/01/24 62.5 mcg-vilant 25 mcg inhalat.powder (Trelegy Ellipta) metoprolol succinate 25 mg 25 mg PO DAILY #0 tabs 09/01/24 tablet,extended release 24 hr quetiapine 400 mg tablet 400 mg PO BEDTIME #0 tabs 09/01/24 cephalexin 500 mg capsule 500 mg PO TID 5 days #15 caps 04/10/25 Allergies Allergy/AdvReac Type Severity Reaction Status Date / Time sertraline (From Zoloft) Allergy Intermediate Nausea and Verified 04/08/25 12:25 Vomiting Penicillins Allergy Mild RASH Verified 04/08/25 12:25 ciprofloxacin AdvReac Intermediate Nausea and Verified 04/08/25 12:25 Vomiting Review of Systems Review of Systems: Constitutional : No Fever, No Chills ENT/Mouth : No sore throat, No Rhinorrhea Eyes: No Eye Pain, No Swelling, No Redness Cardiovascular : No Chest Pain, No SOB Respiratory : No Cough, No Sputum Gastrointestinal : No Nausea, No Vomiting, No Diarrhea, No abdominal Pain Genitourinary : No Dysuria, No Hematuria Musculoskeletal : No joint pain, No Myalgias, No Joint Swelling Skin : No Skin Lesions Neuro : No Weakness, No Numbness, No Headache All other systems reviewed and are negative Yes all other systems are reviewed and are negative Constitutional: Constitutional: Reports as per [facility] Past Medical History Attestation statement: The following information was validated with the patient. Medical History Ruptured spleen delivery delivered CHF (congestive heart failure) Type II diabetes mellitus History of falling Fibromyalgia O2 dependent COPD (chronic obstructive pulmonary disease) CVA (cerebral vascular accident) Bipolar disorder Surgical History History of cholecystectomy Social History Social History Household Members: None Housing: Apartment Do you presently have visiting nurse or other home services: Yes Alcohol intake: current Alcohol intake frequency: does not drink Comment: 5 min check Patient Tobacco Use Status: Current everyday Tobacco user Tobacco use type: Cigarette Cigarette Packs Per Day: 0.5 Cigarettes Per Day: 8 Years Smoked: 35 Smoked in Last 30 Days: Yes e-Cigarette/Vaping Use: Former Use Second Hand Smoke Exposure: No Use of substances other than those prescribed or required for medical reasons: No Substance Use Type: Prescription Drugs Advance Directives: Yes Advance Directives on File: Yes Advance Directives Date on File: 09/02/24 Do you have a plan to hurt others: No Plan Patient : No service: No Sexual orientation: Straight/Heterosexual Physical Exam ED Vital Signs: Vital Signs - 24 hr 04/09/25 14:46 04/09/25 21:11 04/09/25 22:00 Temperature 97.2 F 97.3 F Pulse Rate 70 66 Respiratory Rate 17 18 Blood Pressure 132/89 128/76 107/69 Pulse Oximetry 94 95 Oxygen Delivery Method Room Air Room Air 04/10/25 05:35 04/10/25 08:47 04/10/25 08:47 Temperature 97.5 F 97.7 F Pulse Rate 74 74 80 Respiratory Rate 14 17 Blood Pressure 121/65 121/65 114/73 Pulse Oximetry 96 90 L Oxygen Delivery Method Room Air Room Air 04/10/25 10:55 Temperature Pulse Rate Respiratory Rate Blood Pressure 114/73 Pulse Oximetry Oxygen Delivery Method BMI result Body Mass Index 35.0 Const General: cooperative, comfortable and no acute distress Orientation/consciousness: patient oriented x3 Limitations: no limitations HENMT Head: Yes normal to inspection, Yes normocephalic and Yes atraumatic Ears: hearing grossly normal bilaterally General nose exam: Normal external nose present Face and sinus: Yes normal facial exam Mouth: Normal oral and palatal mucosa present, oropharynx normal and moist mucous membranes Throat: Yes posterior oropharynx normal Eyes General: appearance normal, both eyes and all related structures Eyelids: Yes eyelids normal Conjunctivae: conjunctivae normal Sclerae: sclerae normal Pupils: Equal, round and reactive pupils present EOM: EOMs intact bilaterally Neck Neck: Yes normal visual inspection, Yes full ROM and Yes no lymphadenopathy Lymphatic: no lymphadenopathy noted Chest Chest palpation & inspection: normal inspection of the chest Resp Effort & Inspection: normal respiratory effort and able to speak in complete sentences Auscultation: clear to auscultation bilaterally, no crackles, no rales, no rhonchi and no wheezes Cardio Rate: regular rate Rhythm: regular rhythm Heart sounds: S1 normal heart sound present and S2 normal heart sound present GI Other: Abdomen is soft, nontender, nondistended Inspection: Yes normal to inspection Skin General skin exam: no rashes or lesions noted Trauma: no lacerations or abrasions Wounds: no wounds Neuro General: patient oriented x3 and moves all extremities Cranial nerves: Yes Equal, round and reactive pupils present Extrem General: Yes normal to inspection Right upper extremity: normal to inspection Left upper extremity: normal to inspection Right lower extremity: normal to inspection Left lower extremity: normal to inspection Course Course Course Narrative: This is a Rapid Medical Examination (RME) performed by Janny Ma PA-C in triage. Full HPI, ROS, assessment and treatment plan per primary provider in the Main ED. Hx: Patient is a 64yo F presenting with a pmhx of bipolar disorder and depression with psychiatric concerns. Was seen for falls at [facility] last Sunday which they attributed to medications, medications were adjusted at the hospital. Admitted and discharged to [facility] yesterday where she was cleared medically. her w/ daughter who states mental health concerns were not addressed while there. daughter reports patient is paranoid/delirious. Denies SI/HI, AH/VH. No past history of alcohol use. Plan: med clearance, care team Reevaluation(s) Reevaluation #1: Physician observation continued. Uneventful night. Vital signs stable. No complaints from nursing overnight. Med reconciliation reviewed and done. Pending disposition. Will continue to monitor. Time: 08:34 Reevaluation #2: Patient will be discharged home [facility] via [facility] van. This will take place at 13:00. Patient agreeable to plan. Observation ended at this time Time: 11:33 Medications Administered Generic Name Dose Route Start Last Admin Trade Name Freq PRN Reason Stop Dose Admin Apixaban 5 mg 04/09/25 09:00 04/10/25 08:48 Apixaban 5 Mg Tablet PO 5 mg BID AMIRAH Administration Aspirin 81 mg 04/09/25 21:00 04/09/25 19:49 Aspirin 81 Mg Tab.Chew PO 81 mg BEDTIME AMIRAH Administration Atorvastatin Calcium 40 mg 04/09/25 21:00 04/09/25 19:49 Atorvastatin Calcium 40 Mg Tablet PO 40 mg BEDTIME AMIRAH Administration Bumetanide 2 mg 04/10/25 09:00 04/10/25 10:55 Bumetanide 1 Mg Tablet PO 2 mg MOWEFR AMIRAH Administration Protocol Bupropion HCl 150 mg 04/09/25 09:00 04/10/25 08:48 Bupropion Hcl Xl 150 Mg Tab.Er.24h PO 150 mg DAILY AMIRAH Administration Cephalexin HCl 500 mg 04/08/25 22:45 04/10/25 08:47 Cephalexin 500 Mg Capsule PO 500 mg TID AMIRAH Administration Docusate Sodium 100 mg 04/09/25 09:00 04/10/25 10:19 Docusate Sodium 100 Mg Capsule PO Not Given BID AMIRAH Famotidine 40 mg 04/09/25 21:00 04/09/25 19:49 Famotidine 20 Mg Tablet PO 40 mg BEDTIME AMIRAH Administration Fluoxetine HCl 40 mg 04/09/25 09:00 04/10/25 08:47 Fluoxetine Hcl 20 Mg Capsule PO 40 mg DAILY AMIRAH Administration Fluticasone/Umeclidinium/Vilanterol 1 puff 04/09/25 08:00 04/10/25 10:42 Fluticasone/Umeclidinium/Vilanterol 100/62.11/16 Blst.W.Dev INHALE 1 puff RDAILY AMIRAH Administration Lorazepam 1 mg 04/09/25 09:00 04/10/25 08:47 Lorazepam 1 Mg Tablet PO 1 mg TID AMIRAH Administration Metoprolol Succinate 25 mg 04/09/25 09:00 04/10/25 08:47 Metoprolol Succinate Er 25 Mg Tab.Er.24h PO 25 mg DAILY AMIRAH Administration Protocol Polyethylene Glycol 17 gm 04/09/25 09:00 04/10/25 10:22 Polyethylene Glycol 3350 17 Gm Powd.Pack PO Not Given DAILY AMIRAH Prazosin HCl 2 mg 04/09/25 21:00 04/09/25 21:11 Prazosin Hcl 1 Mg Capsule PO 2 mg BEDTIME AMIRAH Administration Protocol Quetiapine Fumarate 400 mg 04/09/25 21:00 04/09/25 21:11 Quetiapine Fumarate 400 Mg Tablet PO 400 mg BEDTIME AMIRAH Administration Senna 17.2 mg 04/09/25 09:00 04/10/25 10:22 Sennosides 8.6 Mg Tablet PO Not Given DAILY AMIRAH Discontinued Medications Generic Name Dose Route Start Last Admin Trade Name Freq PRN Reason Stop Dose Admin Cefuroxime Axetil 250 mg 04/08/25 21:00 04/08/25 20:27 Cefuroxime Axetil 250 Mg Tablet PO 04/14/25 23:59 250 mg BID AMIRAH Administration Medical Decision Making Medical Decision Making MDM Narrative: This is a 64-year-old female, diabetes, with a hx of oxygen-dependent COPD, fibromyalgia, bipolar disorder who presents emergency department after leaving [facility] this afternoon after being combative . Patient reports that she recall the incident and was upset as she felt as though she was being kept against her will. She states that she raised her voice. She states that she did not want to be at that facility any longer. On arrival, patient mildly hypertensive at 156/73, all other vital signs within normal limits. She is speaking full sentences under no acute distress. Son is at bedside. They report that patient has had a hospitalization at [facility] after a fall. Son reports that she was admitted for urinary tract infection as well as was admitted for psychiatric care. Son reports that patient did have hallucinations while she was at [facility], stating that she thought as though some police officers were trying to kill her. She states that she has had no suicidal or homicidal ideation. No auditory or visual hallucinations. She has no current complaints. 4:35 PM 04/08/2025 (Priyanka Vila PA-C): Labs returned, she has no leukocytosis, stable H&H, chemistry revealing no significant electrolyte derangement. Urine with moderate blood, leuk esterases, rbc's, and wbc's, urine appears to be contaminated with squamous cells however will treat as a urinary tract infection. Given that patient has no evidence of delirium, I do not deem that patient needs to be medically admitted at this time and can be started on p.o. antibiotics. Patient was seen by the care team who do not see any safety concerns. We will consult with PT and case management to ensure that safety casas patient is okay for disposition home as patient has had multiple falls prior to [facility] admission. Physician observation initiated pending PT case management. Differential Diagnosis Differential Diagnoses: The differential diagnosis associated with the presentation includes Electrolyte derangement, delirium, UTI, psychosis, SI, HI Admission/Observation Consideration of admission/observation: Escalation of care including admission/observation considered Escalation of care including admission/observation considered however given workup today not warranted at this time. Lab Data [facility] Lab Attestation statement: I reviewed the patient's lab results. See [facility] 04/08/25 13:53 04/08/25 13:53 Labs: Lab Results 04/08/25 04/08/25 Range/Units 13:10 13:53 WBC 9.2 (4.8-10.8) X10*3/uL RBC 4.77 (4.20-5.50) X10*6/uL Hgb 15.2 (12.0-16.0) g/dl Hct 45.0 (37.0-47.0) % MCV 94.3 (80.0-98.0) fL MCH 31.9 (27.0-33.0) pg MCHC 33.8 (31.0-35.0) g/dl RDW 12.6 (11.0-16.0) % Plt Count 321 (160-400) X10*3/uL MPV 9.4 (9.4-12.3) fL Immature Gran % (Auto) 0.3 (0.0-0.4) % Neut % (Auto) 71.0 (45-73) % Lymph % (Auto) 17.6 L (20-40) % Harmon % (Auto) 8.8 (2-11) % Eos % (Auto) 1.5 (0-4) % Baso % (Auto) 0.8 (0-2) % Lymph # (Auto) 1.6 (1.2-4.9) X10*3/uL Harmon # (Auto) 0.8 (0.1-1.2) X10*3/uL Eos # (Auto) 0.1 (0.0-0.4) X10*3/uL Baso # (Auto) 0.1 (0.0-0.2) X10*3/uL Abs Immat Gran (auto) 0.03 (0.00-0.03) X10*3/uL Absolute Neuts (auto) 6.5 (2.0-8.3) x10*3/uL Absolute Nucleated RBC 0.000 (0.0-0.012) X10*3/uL Nucleated RBC % (auto) 0.0 (0.0-0.2) /100WBC Sodium 139 (135-145) mmol/L Potassium 4.3 (3.3-5.1) mmol/L Chloride 105 (96-108) mmol/L Carbon Dioxide 26 (22-29) mmol/L Anion Gap 12 (12-20) BUN 15 (9-16) mg/dL Creatinine 0.84 (0.5-1.4) mg/dL Estim Creat Clear Calc 82.1 Estimated GFR > 60 Random Glucose 123 H (60-115) mg/dL Calcium 9.9 (8.4-10.2) mg/dL Magnesium 2.2 (1.6-2.6) mg/dL Total Bilirubin 0.3 (0.0-1.0) mg/dL AST 30 (5-31) U/L ALT 29 (0-31) U/L Alkaline Phosphatase 128 H (39-117) U/L Total Protein 7.8 (6.5-8.0) g/dL Albumin 4.6 (3.5-5.0) g/dL Lipase 14 (8-78) U/L Urine Color Yellow Urine Appearance Clear Urine pH 5.5 (5.0-9.0) Ur Specific [place] 1.015 (1.005-1.025) Urine Protein Negative (Neg-Trace) mg/dL Urine Glucose (UA) Negative (Negative) mg/dL Urine Ketones Negative (Negative) mg/dL Urine Blood Moderate (2+) H (Negative) Urine Nitrite Negative (Negative) Ur Leukocyte Esterase Moderate (2+) H (Negative) Urine RBC >20 H (0-2) /HPF Urine WBC 11-20 H (0-5) /HPF Ur Squamous Epith Cells 6-10 (0-2) /HPF Urine Bacteria None Seen (None Seen) Hyaline Casts 0-2 (0-2) /LPF Salicylates < 5.0 L (15-30) mg/dL Urine Opiates Screen Not Detected (Not Detect) Ur Buprenorphine Scrn Not Detected (Not Detect) ng/mL Ur Oxycodone Screen Not Detected (Not Detect) ng/mL Urine Methadone Screen Not Detected (Not Detect) ng/mL Urine Fentanyl Screen Not Detected (Not Detect) Acetaminophen < 3 (<30) mcg/mL Ur Barbiturates Screen Not Detected (Not Detect) Ur Phencyclidine Scrn Not Detected (Not Detect) Ur Amphetamines Screen Not Detected (Not Detect) U Benzodiazepines Scrn Not Detected (Not Detect) Urine Cocaine Screen Not Detected (Not Detect) U Marijuana (THC) Screen Not Detected (Not Detect) Ethyl Alcohol < 10 mg/dL Discharge Plan Discharge Clinical Impression: UTI (urinary tract infection), At risk for falls Patient Disposition: Home, Self-Care Instructions: Urinary Tract Infection in Women (ED) Additional Instructions: Take your medications as prescribed. If you were prescribed antibiotics today, it is important that you take your medication to their entirety, do not skip any doses, do not finish them early. Follow-up with your primary care provider this week. Return to the emergency department with new or worsening symptoms. Such as fevers, chills, chest pain, shortness of breath, nausea, vomiting, dizziness, headache, vision changes, lethargy In case of emergency call 911 Prescriptions: New cephalexin 500 mg capsule 500 mg PO TID 5 Days Qty: 15 0RF No Action bumetanide 2 mg Tablet 2 mg PO Rx Instructions: Sunday, Sunday, Sunday albuterol sulfate [Ventolin HFA] 90 mcg/actuation HFA aerosol inhaler 2 puff inhalation Q6H PRN (Reason: Shortness Of Breath/Wheezing) lorazepam 1 mg tablet 1 mg PO TID Rx Instructions: Take before meals. Max daily amount 3 mg. metoprolol succinate 25 mg Tablet Extended Release 24 Hr 25 mg PO DAILY Qty: 0 0RF Protocol: Hold for SBP/HR < HOLD for SBP < : 90 HOLD for HR < : 60 quetiapine 400 mg Tablet 400 mg PO BEDTIME Qty: 0 0RF Eliquis 5 mg Tablet 5 mg PO BID Qty: 0 0RF Trelegy Ellipta 100-62.5-25 mcg Blister With Device 1 inh inhalation RDAILY Qty: 0 0RF atorvastatin 80 mg tablet 40 mg PO BEDTIME ferrous sulfate 325 mg (65 mg iron) Tablet,Delayed Release (Dr/Ec) 325 mg PO DAILY sennosides [senna] 8.6 mg Tablet 17.2 mg PO DAILY famotidine 40 mg Tablet 40 mg PO BEDTIME lidocaine 4 % Adhesive Patch,Medicated 1 patch TOPICAL DAILY cefpodoxime 200 mg tablet 200 mg PO BID Rx Instructions: end date 04/14/25 docusate sodium [Colace] 100 mg Capsule 100 mg PO BID polyethylene glycol 3350 [Miralax] 17 gram/dose Powder 17 g PO DAILY Rx Instructions: for next 3 days fluoxetine 10 mg capsule 40 mg PO DAILY capsaicin 0.025 % topical Q6H PRN (Reason: Pain, Mild) acetaminophen 325 mg tablet 650 mg PO Q6H PRN (Reason: Fever Or Pain) aspirin 81 mg tablet,chewable 81 mg PO BEDTIME bupropion HCl 150 mg tablet extended release 24 hr 150 mg PO DAILY magnesium hydroxide [Milk of Magnesia] 400 mg/5 mL Suspension 30 ml PO DAILY PRN (Reason: Constipation) bisacodyl 10 mg Suppository 10 mg ID DAILY PRN (Reason: Constipation) Fleet Enema 19-7 gram/118 mL Enema 118 ml ID DAILY PRN (Reason: Constipation) prazosin 2 mg Capsule 2 mg PO BEDTIME Rx Instructions: for 2 days (start on 04/07/25) then 1 mg at bedtime for 7 days (start on 04/09/25) Referrals: Ariel Miranda [Outside] Interventions: [place]-Suicide Risk Severity Scale Last Done: 04/08/25 12:47 Print Language: Hong Konger
[2025-04-08 12:22] VITALS: BP 156/73; PULSE 54; RESP 18; TEMP 36.6; O2SAT 95; BMI 35.0
[2025-04-08 13:24] LABS: Appearance Urine Clear; Glucose Urine UA Negative (Negative); PH 5.5 (5.0-9.0); Specific Gravity - Urine 1.015 (1.005-1.025); UMIC TRIGGER UACC YES
[2025-04-08 13:29] LABS: UACC Culture Trigger YES
[2025-04-08 13:33] LABS: Cannabinoid Screen Urine Not Detected (Not Detect)
[2025-04-08 13:59] LABS: Hematocrit 45.0 % (37.0-47.0); Hemoglobin 15.2 g/dl (12.0-16.0); Imm Gran Abs Auto 0.03 X10*3/uL (0.00-0.03); Imm Gran Pct Auto 0.3 % (0.0-0.4); Lymphocytes Absolute Auto 1.6 X10*3/uL (1.2-4.9); MANUAL DIFF FLAG NO; Mean Corpuscular HGB Conc 33.8 g/dl (31.0-35.0); Mean Corpuscular Hemoglobin 31.9 pg (27.0-33.0); Mean Corpuscular Volume 94.3 fL (80.0-98.0); NRBC Abs Auto 0.000 X10*3/uL (0.0-0.012); NRBC Pct Auto 0.0 /100WBC (0.0-0.2); Platelet Count 321 X10*3/uL (160-400); Red Blood Count 4.77 X10*6/uL (4.20-5.50); White Blood Count 9.2 X10*3/uL (4.8-10.8)
[2025-04-08 14:28] LABS: Alanine Aminotransferase 29 U/L (0-31); Albumin Level 4.6 g/dL (3.5-5.0); Anion Gap 12 (12-20); Aspartate Amino Transferase 30 U/L (5-31); Blood Urea Nitrogen 15 mg/dL (9-16); Calcium 9.9 mg/dL (8.4-10.2); Carbon Dioxide 26 mmol/L (22-29); Chloride 105 mmol/L (96-108); Creatinine Clr Calc Pharmacy 82.1; Estimated Glomerular Filt Rate > 60; Lipase 14 U/L (8-78); Magnesium 2.2 mg/dL (1.6-2.6); Potassium 4.3 mmol/L (3.3-5.1); Sodium 139 mmol/L (135-145); Total Protein 7.8 g/dL (6.5-8.0)
[2025-04-08 14:29] LABS: Acetaminophen LAB < 3 mcg/mL (<30); Salicylate < 5.0 mg/dL (15-30)
[2025-04-08 14:44] LABS: Alkaline Phosphatase 128 U/L (39-117)
--- NOTE | 2025-04-08 15:20 | PC.NURSE ---
Attempted to verify medication list with [facility] at [facility], only partial list available. call placed to vonda Mathew [phone] to verify meds when able.
--- OUTSIDE RECORDS SUMMARY | 2025-04-08 16:14 | XMS_ITS | Encounter Summary ---
Author Organization [facility] Address [address] [facility] [address] [place] [address] Phone Care Team Providers Care Senior Ui Web Developer Name Role Phone June Rodriguez MOBILE APPLICATION DEVELOPMENT LEAD Primary Care Provider June Rodriguez MOBILE APPLICATION DEVELOPMENT LEAD Primary Care Provider Meka Arevalo Primary Care Provider +1 [phone] Eleazar Gleason MD Primary Care Provider + Pcp, Unknown Primary Care Provider Unavailabl e Pcp, Unknown Primary Care Provider Unavailabl e Reason for Referral * Consultation (Elective) - Closed Specialty Diagnoses / Procedures Referred By Genesis gomez Referred To Contact Pulmonary Disease June Rodriguez, MOBILE APPLICATION DEVELOPMENT LEAD Phone: tel: fax: [email or web address] [address] [address] Phone: tel: Referral ID Status Reason Start Date Expiration Date Visits Re quested Visits Authorized [id number] Closed 06/23/2021 06/23/2022 1 1 Encounter Details Date Type Department Care Team (Late st Contact Info) Description 06/23/2021 Transcribe Orders [facility] Pulmonary, Allergy and Critical Care Medicine [address] [place] [address] [place] [address] June Rodriguez NP [address] [place] [address] [email or web address] Social History Tobacco Use Types Packs/Day Years Used Date Smoking Tobacco: Former Cigarettes 1 40 0 06/25/1980 - 06/25/2020 Smokeless Tobacco: Never Alcohol Use Standard Drinks/Week Comments Yes 0 (1 standard drink = 0.6 oz pur e alcohol) Rare, monthly Comments Unknown Sex and Gender Information Value Date Recorded Sex Assigned at Female 12/20/2017 4:36 PM EDT Legal Sex Female 7:59 PM EST Gender Identity Female 12/20/2017 4:36 PM EDT Sexual Orientation Straight 12/20/2017 4: 36 PM EDT documented as of this encounter Plan of Treatment Scheduled Referrals Name Type Priority Associated Diagnoses Order Schedule Ambulatory referral to [facility] Pulmonology Outpatient Referral Routine Ordered: 06/23/2021 documented as of this encounter Visit Diagnoses Not on filedocumented in this encounter Additional Health Concerns Infection Onset Date Last Indicated Resolved Time CoV-Risk Comment:Neg covid 08/24/2022 08/24/2022 08/25/2022 6:[address] CoV-Risk 04/22/2023 04/22/2023 05/03/2023 1:22 AM EST CoV-Risk Comment:Per note documentation 10/25/2023 10/25/2023 8:32 AM EDT Influenza A 10/25/2023 10/25/2023 11/08/2023 1:21 AM EDT CoV-Risk 08/15/2024 08/15/2024 08/26/2024 1:24 AM EST documented as of this encounter Care Teams Senior Ui Web Developer Relationship Specialty Start Date End Date June Rodriguez NP [address] [place] [address] [email or web address] PCP - General Family Medicine 12/20/17 01/02/22 June Rodriguez NP [address] [place] [phone] [email or web address] PCP - General Family Medicine 01/03/22 01/01/23 Meka Arevalo PA [address] [place] [phone] PCP - General Physician Maintenance Services Dispatcher 01/02/23 10/25/23 Eleazar Gleason MD [address] [place] [phone] [email or web address] PCP - General Rheumatology 10/26/23 08/14/24 Pcp, Unknown PCP - General 08/15/24 03/15/25 Pcp, Unknown PCP - General 03/16/25 documented as of this encounter Additional Source Comments The information contained in this document represents components of the legal health record. It is not the complete legal health record.[facility]
--- OUTSIDE RECORDS SUMMARY | 2025-04-08 16:14 | XMS_ITS | Encounter Summary ---
Author Organization [facility] Address 399 [facility] [address] [place] [address] Phone Care Team Providers Care Charter Coordinator Name Role Phone Meka Arevalo Primary Care Provider [phone] Eleazar Gleason MD Primary Care Provider + Pcp, Unknown Primary Care Provider Unavailabl e Pcp, Unknown Primary Care Provider Unavailabl e Encounter Details Date Type Department Care Team (Late st Contact Info) Description 04/22/2023 Procedure Pass [facility], Ct Scan - [address] [address] Social History Tobacco Use Types Packs/Day Years [...] with a working camera? Not on file Comments Unknown Sex and Gender Information Value Date Recorded Sex Assigned at Female 12/20/2017 4:36 PM EDT Legal Sex Female 7:59 PM EST Gender Identity Female 12/20/2017 4:36 PM EDT Sexual Orientation Straight 12/20/2017 4: 36 PM EDT documented as of this encounter Functional Status * Calculated C-SSRS Risk Score (Lifetime/Recent) Answer Date of Assessment Author No Risk Indicated 04/22/2023 8:35 AM EDT Gonzales Villa RN * [place] Suicide Severity Rating Scale (Screener/Recent Self-Report) Question Answer Date of Assessment Author 1. Wish to be (Past 1 Month) No 023 8:35 AM EDT Gonzales Villa RN 2. Non-Specific Active Suici mimi Thoughts (Past 1 Month) No 04/22/2023 8:35 AM EDT Gonzales Villa RN documented as of this encounter Plan [...] documented as of this encounter Care Teams Charter Coordinator Relationship Specialty Start Date End Date Meka Arevalo PA [address] [place] [phone] PCP - General Physician Chairman And Chief Executive Officer 01/02/23 10/25/23 Eleazar Gleason MD [address] [place] [address] [email or web address] PCP - General Rheumatology 10/26/23 08/14/24 Pcp, Unknown PCP - General 08/15/24 03/15/25 Pcp, Unknown PCP - General 03/16/25 documented as of this encounter Additional Source Comments The information contained in this document represents components of the legal health record. It is not the complete legal health record.[facility]
--- OUTSIDE RECORDS SUMMARY | 2025-04-08 16:14 | XMS_ITS | Encounter Summary ---
Author Organization [facility] Address [address] [facility] [address] [place] [address] Phone Care Team Providers Care Analysis Consultant Name Role Phone June Rodriguez FELTING MACHINE OPERATOR HELPER Primary Care Provider June Rodriguez FELTING MACHINE OPERATOR HELPER Primary Care Provider Meka Arevalo Primary Care Provider [phone] Eleazar Gleason MD Primary Care Provider + Pcp, Unknown Primary Care Provider Unavailabl e Pcp, Unknown Primary Care Provider Unavailabl e Encounter Details Date Type Department Care Team (Late st Contact Info) Description 11/14/2019 Ancillary Orders [facility],Outside Imaging [address] [place] [address] System, Provider Not In, [facility] [address] [address] Social History Tobacco Use Types Packs/Day Years Used Date Smoking Tobacco: Every Day Cigarettes 1 40 Smokeless Tobacco: Never Comments:currently 10 cigare ttes/day Alcohol Use Standard Drinks/Week Comments No 0 (1 standard drink = 0.6 oz [...] on file documented as of this encounter Results * Mammogram Outside (No Interpretation) (06/09/2019 12:05 AM EST) Narrative SYSTEMGENERATED, DOCUMENTATION - 11/14/2019 10:36 AM EDT This study is for PACS storage only and not for interpretation. us Provider Not In System PhD IMG OUTSIDE IMAGING W /OUT INTERPRETATION Final Result * US Breast Outside (No Interpretation) (09/30/2018 12:05 AM EDT) Narrative SYSTEMGENERATED, DOCUMENTATION - 11/14/2019 10:37 AM EDT This study is for PACS storage only and not for interpretation. us Provider Not In System PhD IMG OUTSIDE IMAGING W /OUT INTERPRETATION Final Result * Mammogram Outside (No Interpretation) (09/30/2018 12:00 AM EDT) Narrative SYSTEMGENERATED, DOCUMENTATION - 11/14/2019 10:37 AM EDT This study is for PACS storage [...] documented as of this encounter Care Teams Analysis Consultant Relationship Specialty Start Date End Date June Rodriguez NP [address] [place] [address] [email or web address] PCP - General Family Medicine 12/20/17 01/02/22 June Rodriguez NP [address] [place] [address] [email or web address] PCP - General Family Medicine 01/03/22 01/01/23 Meka Arevalo PA [address] [place] [phone] PCP - General Physician Stripper Cutter Machine 01/02/23 10/25/23 Eleazar Gleason MD [address] [place] [phone] [email or web address] PCP - General Rheumatology 10/26/23 08/14/24 Pcp, Unknown PCP - General 08/15/24 03/15/25 Pcp, Unknown PCP - General 03/16/25 documented as of this encounter Additional Source Comments The information contained in this document represents components of the legal health record. It is not the complete legal health record.[facility]
--- OUTSIDE RECORDS SUMMARY | 2025-04-08 16:14 | XMS_ITS | Encounter Summary ---
Author Organization [facility] Address [address] [place] [address] Phone Care Team Providers Care Chronic Specialist Name Role Phone Meka Arevalo Primary Care Provider [phone] Eleazar Gleason MD Primary Care Provider + Pcp, Unknown Primary Care Provider Unavailabl e Pcp, Unknown Primary Care Provider Unavailabl e Encounter Details Date Type Department Care Team (Late st Contact Info) Description 10/25/2023 Procedure Pass [facility] [address] [place] [address] Social History Tobacco Use Types Packs/Day Years [...] uch as food, clothing, or medical care? No 10/25/2023 In the past 12 months have y ou been in a relationship with a person who hurts, threatens, or tries to control you? No 10/25/2023 Are you denied basic needs s uch as food, clothing, or medical care? No 10/25/2023 In the past 12 months have y ou been in a relationship with a person who hurts, threatens, or tries to control you? No 10/25/2023 Comments Unknown Sex and Gender Information Value Date Recorded Sex Assigned at Female 12/20/2017 4:36 PM EDT Legal Sex Female 7:59 PM EST Gender Identity Female 12/20/2017 4:36 PM EDT Sexual Orientation Straight 12/20/2017 4: 36 PM EDT documented as of this encounter Functional Status * Calculated C-SSRS Risk Score (Lifetime/Recent) Answer Date of Assessment Author No Risk Indicated 10/25/2023 6:01 AM EDT Eusebia Fabian RN * [place] Suicide Severity Rating Scale (Screener/Recent Self-Report) Question Answer Date of Assessment Author 1. Wish to be (Past 1 Month) No 024 6:01 AM EDT Eusebia Fabian RN 2. Non-Specific Active Suici mimi Thoughts (Past 1 Month) No 10/25/2023 6:01 AM EDT Millie Fabian RN 6. Suicidal Behavior (Lifetime) No 4 6:01 AM EDT Eusebia Fabian RN documented as of this encounter Plan of Treatment Not on file documented as of this encounter Visit Diagnoses Not on filedocumented in this encounter Additional Health Concerns Infection Onset Date Last Indicated Resolved Time CoV-Risk Comment:Per note documentation 10/25/2023 10/25/2023 8:32 AM EDT Influenza A 10/25/2023 10/25/2023 11/08/2023 1:21 AM EDT CoV-Risk 08/15/2024 08/15/2024 08/26/2024 1:24 AM EST Assessment Noted Time PHQ-9 Depression Total Score: 19 024 12:41 PM EST PHQ-2 Depression Total Score: 2 07/31/19 24 12:41 PM EST documented as of this encounter Care Teams Chronic Specialist Relationship Specialty Start Date End Date Meka Arevalo PA [address] [place] [phone] PCP - General Physician Regional Account Manager 01/02/23 10/25/23 Eleazar Gleason MD [address] [place] [phone] [email or web address] PCP - General Rheumatology 10/26/23 08/14/24 Pcp, Unknown PCP - General 08/15/24 03/15/25 Pcp, Unknown PCP - General 03/16/25 documented as of this encounter Additional Source Comments The information contained in this document represents components of the legal health record. It is not the complete legal health record.[facility]
--- OUTSIDE RECORDS SUMMARY | 2025-04-08 16:14 | XMS_ITS | Encounter Summary ---
Author Organization [facility] Address [address] [facility] [address] [place] [address] Phone Care Team Providers Care Title I Instructional Assistant Name Role Phone June Rodriguez SAFE DEPOSIT CLERK Primary Care Provider June Rodriguez SAFE DEPOSIT CLERK Primary Care Provider Meka Arevalo Primary Care Provider [phone] [phone] Eleazar Gleason MD Primary Care Provider + Pcp, Unknown Primary Care Provider Unavailabl e Pcp, Unknown Primary Care Provider Unavailabl e Encounter Details Date Type Department Care Team (Late st Contact Info) Description 12/27/2018 Procedure Pass [facility] Endoscopy Admitting Dept Virtual Department [address] [place] [address] Social History Tobacco Use Types Packs/Day Years [...] documented as of this encounter Care Teams Title I Instructional Assistant Relationship Specialty Start Date End Date Juen Rodriguez NP [address] [place] [address] [email or web address] PCP - General Family Medicine 12/20/17 01/02/22 June Rodriguez NP [address] [place] [address] [email or web address] PCP - General Family Medicine 01/03/22 01/01/23 Meka Arevalo PA [address] [place] [phone] PCP - General Physician Progress Developer 01/02/23 10/25/23 Eleazar Gleason MD [address] [place] [address] [email or web address] PCP - General Rheumatology 10/26/23 08/14/24 Pcp, Unknown PCP - General 08/15/24 03/15/25 Pcp, Unknown PCP - General 03/16/25 documented as of this encounter Additional Source Comments The information contained in this document represents components of the legal health record. It is not the complete legal health record.[facility]
--- OUTSIDE RECORDS SUMMARY | 2025-04-08 16:14 | XMS_ITS | Encounter Summary ---
Author Organization [facility] Address [address] [employer] [facility] [address] [place] [address] Phone Care Team Providers Care Senior Windows Administrator Name Role Phone Meka Arevalo Primary Care Provider [phone] Eleazar Gleason MD Primary Care Provider + Pcp, Unknown Primary Care Provider Unavailabl e Pcp, Unknown Primary Care Provider Unavailabl e Encounter Details Date Type Department Care Team (Late st Contact Info) Description 04/22/2023 Procedure Pass [facility] [place], Ct Scan - [address] [address] Social History Tobacco Use Types Packs/Day Years [...] 8:35 AM EDT Gonzales Villa RN * [place] Suicide Severity Rating Scale (Screener/Recent Self-Report) Question [...] as of this encounter Care Teams Senior Windows Administrator Relationship Specialty Start Date End Date Meka Arevalo PA [address] [place] [phone] PCP - General Physician Piercer Operator 01/02/23 10/25/23 Eleazar Gleason MD [address] [place] [phone] [email or web address] PCP - General Rheumatology 10/26/23 08/14/24 Pcp, Unknown PCP - General 08/15/24 03/15/25 Pcp, Unknown PCP - General 03/16/25 documented as of this encounter Additional Source Comments The information contained in this document represents components of the legal health record. It is not the complete legal health record.[facility]
--- OUTSIDE RECORDS SUMMARY | 2025-04-08 16:14 | XMS_ITS | Encounter Summary ---
Author Organization [facility] Address [address] [facility] [address] [place] [address] Phone Care Team Providers Care Reconciliation Specialist Name Role Phone June Rodriguez CUSTOM FEED MILL OPERATOR Primary Care Provider June Rodriguez CUSTOM FEED MILL OPERATOR Primary Care Provider Meka Arevalo Primary Care Provider [phone] [phone] Eleazar Gleason MD Primary Care Provider + Pcp, Unknown Primary Care Provider Unavailabl e Pcp, Unknown Primary Care Provider Unavailabl e Encounter Details Date Type Department Care Team (Late st Contact Info) Description 10/13/2020 Procedure Pass [facility] [address] [place] [address] Social History Tobacco Use Types Packs/Day Years [...] documented as of this encounter Care Teams Reconciliation Specialist Relationship Specialty Start Date End Date June Rodriguez NP [address] [place] [address] [email or web address] PCP - General Family Medicine 12/20/17 01/02/22 June Rodriguez NP [address] [place] [address] [email or web address] PCP - General Family Medicine 01/03/22 01/01/23 Meka Arevalo PA [address] [place] [phone] PCP - General Physician Copy Chief 01/02/23 10/25/23 Eleazar Gleason MD [address] [place] [address] [place] [address] [email or web address] PCP - General Rheumatology 10/26/23 08/14/24 Pcp, Unknown PCP - General 08/15/24 03/15/25 Pcp, Unknown PCP - General 03/16/25 documented as of this encounter Additional Source Comments The information contained in this document represents components of the legal health record. It is not the complete legal health record.[facility]
--- OUTSIDE RECORDS SUMMARY | 2025-04-08 16:14 | XMS_ITS | Encounter Summary ---
Author Organization [facility] Address [address] [facility] [address] [place] [address] Phone Care Team Providers Care Classroom Instructor Name Role Phone June Rodriguez PRINT INSPECTOR Primary Care Provider June Rodriguez PRINT INSPECTOR Primary Care Provider Meka Arevalo Primary Care Provider [phone] Carlitos Gleason MD Primary Care Provider + Pcp, Unknown Primary Care Provider Unavailabl e Pcp, Unknown Primary Care Provider Unavailabl e Encounter Details Date Type Department Care Team (Late st Contact Info) Description 06/29/2021 Transcribe Orders Virtual Department [address] [place] [address] June Rodriguez NP [address] [place] [address] [email or web address] Social History Tobacco Use Types Packs/Day Years [...] documented as of this encounter Care Teams Classroom Instructor Relationship Specialty Start Date End Date June Rodriguez NP [address] [place] [address] [email or web address] PCP - General Family Medicine 12/20/17 01/02/22 June Rodriguez NP [address] [place] [address] [email or web address] PCP - General Family Medicine 01/03/22 01/01/23 Meka rAevalo PA [address] [place] [phone] PCP - General Physician Customs Examiner 01/02/23 10/25/23 Carlitos Gleason MD [address] [place] [phone] [email or web address] PCP - General Rheumatology 10/26/23 08/14/24 Pcp, Unknown PCP - General 08/15/24 03/15/25 Pcp, Unknown PCP - General 03/16/25 documented as of this encounter Additional Source Comments The information contained in this document represents components of the legal health record. It is not the complete legal health record.[facility]
--- OUTSIDE RECORDS SUMMARY | 2025-04-08 16:14 | XMS_ITS | Encounter Summary ---
Author Organization [facility] Address [address] [facility] [address] [place] [address] Phone Care Team Providers Care Bath Attendant Name Role Phone June Rodriguez MACHINE PRECISION ETCHER Primary Care Provider June Rodriguez MACHINE PRECISION ETCHER Primary Care Provider Meka Arevalo Primary Care Provider [phone] [phone] Eleazar Gleason MD Primary Care Provider + Pcp, Unknown Primary Care Provider Unavailabl e Pcp, Unknown Primary Care Provider Unavailabl e Encounter Details Date Type Department Care Team (Late st Contact Info) Description 10/12/2020 Procedure Pass [facility], Ct Scan - [facility] [address] [place] [address] Social History Tobacco Use Types Packs/Day Years [...] Date of Assessment Author No Risk Indicated 10/12/2020 1:33 AM EDT Angelika Burgos RN * [place] Suicide Severity Rating Scale (Screener/Recent Self-Report) Question Answer Date of Assessment Author 2. Non-Specific Active Suici mimi Thoughts (Past 1 Month) No 10/12/2020 1:33 AM EDT Iglesia Burgos RN 6. Suicidal Behavior (Lifetime) No 1:33 AM EDT Angelika Burgos RN documented as of this encounter Plan [...] documented as of this encounter Care Teams Bath Attendant Relationship Specialty Start Date End Date June Rodriguez NP [address] [place] [address] [email or web address] PCP - General Family Medicine 12/20/17 01/02/22 June Rodriguez NP [address] [place] [address] [email or web address] PCP - General Family Medicine 01/03/22 01/01/23 Meka Arevalo PA [address] [place] [phone] PCP - General Physician Transplant Nurse 01/02/23 10/25/23 Eleazar Gleason MD [address] [place] [address] [email or web address] PCP - General Rheumatology 10/26/23 08/14/24 Pcp, Unknown PCP - General 08/15/24 03/15/25 Pcp, Unknown PCP - General 03/16/25 documented as of this encounter Additional Source Comments The information contained in this document represents components of the legal health record. It is not the complete legal health record.[facility]
--- OUTSIDE RECORDS SUMMARY | 2025-04-08 16:14 | XMS_ITS | Encounter Summary ---
Author Organization [facility] Address [address] [place] [address] Phone Care Team Providers Care Application Assistant Name Role Phone Eleazar Gleason MD Primary Care Provider + Pcp, Unknown Primary Care Provider Unavailabl e Pcp, Unknown Primary Care Provider Unavailabl e Encounter Details Date Type Department Care Team (Late st Contact Info) Description 11/01/2023 Procedure Pass [facility], Ct Scan - [address] [address] Social History Tobacco Use Types Packs/Day Years [...] Infection Onset Date Last Indicated Resolved Time Influenza A 10/25/2023 10/25/2023 11/08/2023 1:21 AM EDT CoV-Risk 08/15/2024 08/15/2024 08/26/2024 1:24 AM EST Assessment Noted Time PHQ-9 Depression Total Score: 19 024 12:41 PM EST PHQ-2 Depression Total Score: 2 07/31/19 24 12:41 PM EST documented as of this encounter Care Teams Application Assistant Relationship Specialty Start Date End Date Eleazar Gleason MD [address] [place] [phone] [email or web address] PCP - General Rheumatology 10/26/23 08/14/24 Pcp, Unknown PCP - General 08/15/24 03/15/25 Pcp, Unknown PCP - General 03/16/25 documented as of this encounter Additional Source Comments The information contained in this document represents components of the legal health record. It is not the complete legal health record.[facility]
--- OUTSIDE RECORDS SUMMARY | 2025-04-08 16:14 | XMS_ITS | Encounter Summary ---
Author Organization [facility] Address [address] [facility] [address] [place] [address] Phone Care Team Providers Care Director Telehealth Name Role Phone June Rodriguez RUBBER GRINDER Primary Care Provider June Rodriguez RUBBER GRINDER Primary Care Provider Meka Arevalo Primary Care Provider [phone] Eleazar Gleason MD Primary Care Provider + Pcp, Unknown Primary Care Provider Unavailabl e Pcp, Unknown Primary Care Provider Unavailabl e Encounter Details Date Type Department Care Team (Latest Contact Info) Description 11/12/2019 Transcribe Orders Virtual Department [address] [place] [address] June Rodriguez NP [address] [place] [address] [email or web address] Mammographic microcalcification found on diagnostic imaging of breast (Primary Dx) Social History Tobacco Use Types [...] as of this encounter Visit Diagnoses Diagnosis Mammographic microcalcification found on diagnostic imaging of breast- Primary documented in this encounter Additional Health Concerns Infection Onset Date Last Indicated Resolved Time CoV-Risk Comment:Per note documentation 10/11/2020 10/11/2020 9:12 AM EDT CoV-Risk Comment:Per note documentation 05/03/2021 05/03/2021 12:38 PM EST CoV-Risk Comment:Neg covid 08/24/2022 08/24/2022 08/25/2022 6:[address] CoV-Risk 04/22/2023 04/22/2023 05/03/2023 1:22 AM EST CoV-Risk Comment:Per note documentation 10/25/2023 10/25/2023 8:32 AM EDT Influenza A 10/25/2023 10/25/2023 11/08/2023 1:2 1 AM EDT CoV-Risk 08/15/2024 08/15/2024 08/26/2024 1:24 AM EST documented as of this encounter Care Teams Director Telehealth Relationship Specialty Start Date End Date June Rodriguez NP [address] [place] [phone] [email or web address] PCP - General Family Medicine 12/20/17 01/02/22 June Rodriguez NP [address] [place] [phone] [email or web address] PCP - General Family Medicine 01/03/22 01/01/23 Meka Arevalo PA [address] [place] [phone] PCP - General Physician Fresco Artist 01/02/23 10/25/23 Eleazar Gleason MD [address] [place] [address] [email or web address] PCP - General Rheumatology 10/26/23 08/14/24 Pcp, Unknown PCP - General 08/15/24 03/15/25 Pcp, Unknown PCP - General 03/16/25 documented as of this encounter Additional Source Comments The information contained in this document represents components of the legal health record. It is not the complete legal health record.[facility]
--- OUTSIDE RECORDS SUMMARY | 2025-04-08 16:14 | XMS_ITS | Encounter Summary ---
Author Organization [facility] Address [address] [facility] [address] [place] [address] Phone Care Team Providers Care Office Services Assistant Name Role Phone June Rodriguez LOG PROCESSOR OPERATOR Primary Care Provider June Rodriguez LOG PROCESSOR OPERATOR Primary Care Provider Meka Arevalo Primary Care Provider [phone] Eleazar Gleason MD Primary Care Provider + Pcp, Unknown Primary Care Provider Unavailabl e Pcp, Unknown Primary Care Provider Unavailabl e Encounter Details Date Type Department Care Team (Late st Contact Info) Description 05/04/2021 Procedure Pass [facility] [address] [place] [address] Social History Tobacco Use Types Packs/Day Years [...] Indicated Resolved Time CoV-Risk Comment:Per note documentation 05/03/2021 05/03/2021 12:38 PM EST CoV-Risk Comment:Neg covid 08/24/2022 08/24/2022 08/25/2022 6:[address] CoV-Risk 04/22/2023 04/22/2023 05/03/2023 1:22 AM EST CoV-Risk Comment:Per note documentation 10/25/2023 10/25/2023 8:32 AM EDT Influenza A 10/25/2023 10/25/2023 11/08/2023 1:21 AM EDT CoV-Risk 08/15/2024 08/15/2024 08/26/2024 1:24 AM EST documented as of this encounter Care Teams Office Services Assistant Relationship Specialty Start Date End Date June Rodriguez NP [address] [place] [address] [email or web address] PCP - General Family Medicine 12/20/17 01/02/22 June Rodriguez NP [address] [place] [address] [email or web address] PCP - General Family Medicine 01/03/22 01/01/23 Meka Arevalo PA [address] [place] [phone] PCP - General Physician After School Caregiver 01/02/23 10/25/23 Eleazar Gleason MD [address] [place] [phone] [email or web address] PCP - General Rheumatology 10/26/23 08/14/24 Pcp, Unknown PCP - General 08/15/24 03/15/25 Pcp, Unknown PCP - General 03/16/25 documented as of this encounter Additional Source Comments The information contained in this document represents components of the legal health record. It is not the complete legal health record.[facility]
--- OUTSIDE RECORDS SUMMARY | 2025-04-08 16:14 | XMS_ITS | Encounter Summary ---
Author Organization [facility] Address [address] [facility] [address] [place] [address] Phone Care Team Providers Care Tractor Trailer Technician Name Role Phone June Rodriguez STATOR CONNECTOR Primary Care Provider June Rodriguez STATOR CONNECTOR Primary Care Provider Meka Arevalo Primary Care Provider [phone] Eleazar Gleason MD Primary Care Provider + Pcp, Unknown Primary Care Provider Unavailabl e Pcp, Unknown Primary Care Provider Unavailabl e Encounter Details Date Type Department Care Team ([facility] st Contact Info) Description 09/16/2021 Ancillary Orders [facility] Pulmonary, Allergy and Critical Care Medicine 10 [facility] [place] [address] Eleazar Rodriguez MD [address] [facility] 2nd [place] [address] Dyspnea on exertion Social History Tobacco Use Types Packs/Day Years [...] documented as of this encounter Results * NC Stress Result for Nuclear Stress Test (09/16/2021 10:48 AM EDT) Max BP Systolic 130 mmHg [facility] Max BP Diastolic 80 mmHg [facility] Max HR 109 BPM [facility] Resting HR 100 BPM [facility] Resting BP Systolic 120 mmHg [facility] Resting BP Diastolic 88 mmHg [facility] Peak METS 1.0 METS [facility] Peak HR 108 BPM [facility] Anatomical Region Laterality Modality Heart Other 09/16/2021 9:07 AM EDT 09/16/2021 10:47 AM EDT Narrative 09/16/2021 10:49 AM EDT Response to Stress The patient exercised for minutes seconds, achieving 1.0 METS at peak exercise. Baseline blood pressure was 120/88 mmHg, and baseline heart rate was 100 bpm. The patient achieved a peak heart rate of 108 bpm, which is% of their maximum predicted heart rate. 0.4 mg Regadenoson (lexiscan) given IV push over 10 seconds as per protocol immediately followed by injection of Tc99m Sestamibi by [facility] technologist. Test was done as a pharmacologic test due to patient reporting severe SOB and unable to walk on an incline which is a medical contradiction to do exercise. 1. EKG - Baseline EKG showed sinus tachycardia 101 bpm with non-specific ST-T wave abnormalities. After injection of lexiscan, there were no ischemic EKG changes. 2. SYMPTOMS - No chest pain. After injection of lexiscan, patient reported mild SOB, which spontaneously resolved 1-2 min into recovery. 3. PHYSIOLOGY - Resting HR was 101 bpm. After Lexiscan injection, HR 109 bpm. 4. ARRHYTHMIAS - No ectopy noted. Conclusion - There were no ischemic EKG changes without symptoms concerning for angina during EKG portion of pharmacological testing. Nuclear images pending and will be reported separately. Suzie Carter SHAVONNE, HOME APPRAISER-BC with Dr. Cueva . us Eleazar Rodriguez MD CV NM CARDIAC Final Result documented in this encounter Visit Diagnoses Diagnosis Dyspnea on exertion Other dyspnea and respiratory abnormality Dyspnea on exertion Other dyspnea and respiratory abnormality documented in this encounter Additional Health Concerns Infection Onset Date Last Indicated Resolved Time CoV-Risk Comment:Neg covid 08/24/2022 08/24/2022 08/25/2022 6:[address] CoV-Risk 04/22/2023 04/22/2023 05/03/2023 1:22 AM EST CoV-Risk Comment:Per note documentation 10/25/2023 10/25/2023 8:32 AM EDT Influenza A 10/25/2023 10/25/2023 11/08/2023 1:21 AM EDT CoV-Risk 08/15/2024 08/15/2024 08/26/2024 1:24 AM EST documented as of this encounter Care Teams Tractor Trailer Technician Relationship Specialty Start Date End Date June Rodriguez NP [address] [place] [address] [email or web address] PCP - General Family Medicine 12/20/17 01/02/22 June Rodriguez NP [address] [place] [address] [email or web address] PCP - General Family Medicine 01/03/22 01/01/23 Meka Arevalo PA [address] [place] [phone] PCP - General Physician Sole Cutter 01/02/23 10/25/23 Eleazar Gleason MD [address] [place] [phone] [email or web address] PCP - General Rheumatology 10/26/23 08/14/24 Pcp, Unknown PCP - General 08/15/24 03/15/25 Pcp, Unknown PCP - General 03/16/25 documented as of this encounter Additional Source Comments The information contained in this document represents components of the legal health record. It is not the complete legal health record.[facility]
--- OUTSIDE RECORDS SUMMARY | 2025-04-08 16:14 | XMS_ITS | Encounter Summary ---
Author Organization [facility] Address [address] [employer] [facility] [address] [place] [address] Phone Care Team Providers Care Pallet Stone Positioner Name Role Phone Meka Arevalo Primary Care Provider [phone] Eleazar Gleason MD Primary Care Provider + Pcp, Unknown Primary Care Provider Unavailabl e Pcp, Unknown Primary Care Provider Unavailabl e Encounter Details Date Type Department Care Team (Late st Contact Info) Description 07/31/2023 Procedure Pass [facility], [address] [address] Social History Tobacco Use Types Packs/Day Years [...] documented as of this encounter Care Teams Pallet Stone Positioner Relationship Specialty Start Date End Date Meka Arevalo PA [address] [place] [phone] PCP - General Physician Joint Sealer 01/02/23 10/25/23 Eleazar Gleason MD [address] [place] [phone] [email or web address] PCP - General Rheumatology 10/26/23 08/14/24 Pcp, Unknown PCP - General 08/15/24 03/15/25 Pcp, Unknown PCP - General 03/16/25 documented as of this encounter Additional Source Comments The information contained in this document represents components of the legal health record. It is not the complete legal health record.[facility]
--- OUTSIDE RECORDS SUMMARY | 2025-04-08 16:14 | XMS_ITS | Encounter Summary ---
Author Organization [facility] Address [address] [facility] [address] [place] [address] Phone Care Team Providers Care Substitute Teacher Name Role Phone June Rodriguez CREWMAN MAIN BATTLE TANK Primary Care Provider June Rodriguez CREWMAN MAIN BATTLE TANK Primary Care Provider Meka Arevalo Primary Care Provider [phone] Eleazar Gleason MD Primary Care Provider + Pcp, Unknown Primary Care Provider Unavailabl e Pcp, Unknown Primary Care Provider Unavailabl e Encounter Details Date Type Department Care Team (Late st Contact Info) Description 11/27/2018 Ancillary Orders Virtual Department [address] [place] [address] June Rodriguez, CREWMAN MAIN BATTLE TANK [address] [place] [address] [email or web address] Dysphagia, unspecified type Social History Tobacco Use Types Packs/Day Years Used Date Smoking Tobacco: Every Day Smokeless Tobacco: Never Alcohol Use Standard Drinks/Week Comments No 0 [...] as of this encounter Visit Diagnoses Diagnosis Dysphagia, unspecified type documented in this encounter Additional Health Concerns [...] documented as of this encounter Care Teams Substitute Teacher Relationship Specialty Start Date End Date June Rodriguez NP [address] [place] [address] [email or web address] PCP - General Family Medicine 12/20/17 01/02/22 June Rodriguez NP [address] [place] [address] [email or web address] PCP - General Family Medicine 01/03/22 01/01/23 Meka Arevalo PA [address] [place] [phone] PCP - General Physician Squeegee Tender 01/02/23 10/25/23 Eleazar Gleason MD [address] [place] [address] [email or web address] PCP - General Rheumatology 10/26/23 08/14/24 Pcp, Unknown PCP - General 08/15/24 03/15/25 Pcp, Unknown PCP - General 03/16/25 documented as of this encounter Additional Source Comments The information contained in this document represents components of the legal health record. It is not the complete legal health record.[facility]
--- OUTSIDE RECORDS SUMMARY | 2025-04-08 16:14 | XMS_ITS | Encounter Summary ---
Author Organization [facility] Address [address] [facility] [facility] [address] [place] [address] Phone Care Team Providers Care Cone Machine Operator Name Role Phone Meka Arevalo Primary Care Provider [phone] Eleazar Gleason MD Primary Care Provider + Pcp, Unknown Primary Care Provider Unavailabl e Pcp, Unknown Primary Care Provider Unavailabl e Encounter Details Date Type Department Care Team (Late st Contact Info) Description 04/22/2023 Procedure Pass [place] Admitting Dept - Virtual Department [address] [place] [phone] Social History Tobacco Use Types Packs/Day Years [...] 8:35 AM EDT Gonzales Villa RN * [place] Suicide Severity Rating Scale (Screener/Recent Self-Report) Question [...] documented as of this encounter Care Teams Cone Machine Operator Relationship Specialty Start Date End Date Meka Arevalo PA [address] [place] [phone] PCP - General Physician Nuclear Reactor Engineer 01/02/23 10/25/23 Eleazar Gleason MD [address] [place] [phone] [email or web address] PCP - General Rheumatology 10/26/23 08/14/24 Pcp, Unknown PCP - General 08/15/24 03/15/25 Pcp, Unknown PCP - General 03/16/25 documented as of this encounter Additional Source Comments The information contained in this document represents components of the legal health record. It is not the complete legal health record.[facility]
--- OUTSIDE RECORDS SUMMARY | 2025-04-08 16:14 | XMS_ITS | Encounter Summary ---
Author Organization [facility] Address [address] [facility] [address] [place] [address] Phone Care Team Providers Care Assignment Officer Name Role Phone June Rodriguez DECK SUPERVISOR Primary Care Provider June Rodriguez DECK SUPERVISOR Primary Care Provider Meka Arevalo Primary Care Provider [phone] Eleazar Gleason MD Primary Care Provider + Pcp, Unknown Primary Care Provider Unavailabl e Pcp, Unknown Primary Care Provider Unavailabl e Encounter Details Date Type Department Care Team (Late st Contact Info) Description 10/11/2020 Procedure Pass [facility], Ct Scan - [facility] [address] [place] [address] Social History Tobacco Use Types Packs/Day Years [...] Risk Indicated 10/12/2020 1:33 AM EDT Angelika Burgos, LOUISE * [place] Suicide Severity Rating Scale (Screener/Recent Self-Report) Question Answer Date of Assessment Author 1. Wish to be (Past 1 Month) No 021 4:18 PM EDT Luiz Reddy RN 2. Non-Specific Active Suici mimi Thoughts [...] documented as of this encounter Care Teams Assignment Officer Relationship Specialty Start Date End Date June Rodriguez NP [address] [place] [phone] [email or web address] PCP - General Family Medicine 6/28/18 7/11/22 June Rodriguez NP [address] [place] [address] [email or web address] PCP - General Family Medicine 01/03/22 01/01/23 Meka Arevalo PA [address] [place] [phone] PCP - General Physician Medical Coder 01/02/23 10/25/23 Eleazar Gleason MD [address] [place] [phone] [email or web address] PCP - General Rheumatology 10/26/23 08/14/24 Pcp, Unknown PCP - General 08/15/24 03/15/25 Pcp, Unknown PCP - General 03/16/25 documented as of this encounter Additional Source Comments The information contained in this document represents components of the legal health record. It is not the complete legal health record.[facility]
--- OUTSIDE RECORDS SUMMARY | 2025-04-08 16:15 | XMS_ITS | Encounter Summary ---
Author Organization [facility] Address [address] [place] [address] Care Team Providers Care Food Court Team Member Name Role Phone Dede Pimentel NP Primary Care Provider [phone] Reason for Referral * Consultation (Routine) - Closed Specialty Diagnoses / Procedures Referred By Contac t Referred To Contact [facility] / Med Surg Diagnoses Weakness Recurrent falls Urinary tract infection without hematuria, site unspecified Dede Pimentel NP [address] [address] Phone: tel: fax: [facility] [address] [place] [address] Phone: tel: Referral ID Status Reason Start Date Expiration Date V isits Requested Visits Authorized [id number] Closed Co-Managemen t of Problem 03/31/2025 04/07/2025 1 1 * Consultation (Routine) - Authorized Specialty Diagnoses / Procedures Referred By Contact Referred To Contact [facility] Transportation Services Diagnoses Weakness Recurrent falls Dede Pimentel NP [address] [address] Phone: tel: fax: [facility] [address] [place] [address] Phone: tel: fax: Referral ID Status Reason Start Date Expiration Date Visits Requested Visits Authorized [id number] Authorized Consult and Treat 04/03/2025 04/03/2026 1 1 Encounter Details Date Type Department Care Team (Late st Contact Info) Description 03/31/2025 PACE Admissions [facility] [address] [place] [address] Jennifer Pacheco RN Recurrent falls (Primary Dx); Weakness; Urinary tract infection without hematuria, site unspecified Social History Tobacco Use Types Packs/Day [...] 8:29 AM EDT Chris Moya RN * [place] Suicide Severity Rating Scale (Screener/Recent Self-Report) Question Answer Date of Assessment Author 1. Wish to be (Past 1 Month) No 025 8:29 AM EDT Jayshree Moya RN 2. Non-Specific Active Suici mimi Thoughts (Past 1 Month) No 04/06/2025 8:29 AM EDT Jayshree Moya, LOUISE 6. Suicidal Behavior (Lifetime) No 8:29 AM EDT Jayshree Moya RN documented as of this encounter Progress Notes * Jennifer Pacheco RN - 03/31/2025 11:59 PM EDT 04/07/25 Hospital notifies this film writer that par is transferring to [facility]. Van is booked for 4:45 pm. Daughter Jayda updated and verbalizes agreement with plan, stating that she plans on visiting [facility] tomorrow. 04/07/25 Par remains at [facility]. She is now on the med-surg unit. Par is receiving IV antibiotics for UTI. Culture is growing gram negative bacilli. Par had a second psychiatric consult today. She remains ineligible for inpatient level of care, but recommendations made by psychiatrist are beginning in the hospital. Par saw PT today and remains unsteady on her feet. Par to receive PT while in the hospital setting. Will continue to follow. 04/06/25 Par admitted observation status due to bouts of agitation in the evening and demanding to leave AMA. Par is now deconditioned. PASSR still pending from facility and plan is to admit to [facility]. Par must be behavior and sitter free in order to be considered for admission. Will continue to follow. 04/03/25 Par was referred to [facility] today for inpatient medication adjustments. Pardenied due to frequent falls. [facility] and she will transfer pending completion of a PASRR. Par will transfer via ambulance due to after hours/weekend status. Weekend on-call staff updated. 04/02/25 Par kept overnight at [facility] due to safety concerns related to falls. Multiple falls thought to be due to polypharmacy. IDT discussed this morning and transfer to [facility] for medication adjustment recommended. PROSPER spoke with attending and telephonic nurse case manager to arrange a psychiatric consult. Psych consult note pending completion. Will continue to follow. 04/01/25 Par had a second fall and is at [facility]. No injury. PT evaluation pending. documented in this encounter Plan of Treatment Upcoming Encounters Date Type Department Care Team (Late st Contact Info) Description 04/09/2025 11:30 AM EDT Clinical Support [facility] [place] [address] [place] [address] 04/13/2025 PACE Attendance/[place] [facility] [place] [facility] [address] [place] [phone] 04/13/2025 7:30 AM EDT PACE Home Care / PACE Home Visit [facility] [place] [facility] [address] [place] [phone] Cheryle Pryor 04/13/2025 9:00 AM EDT PACE Attendance/[place] [facility] [place] [facility] [address] [place] [phone] 04/14/2025 7:30 AM EDT PACE Home Care / P[facility] Home [facility] [place] [facility] [address] [place] [phone] Cheryle Pryor 04/14/2025 10:30 AM EDT PACE Home Care / P[facility] Home [facility] [place] [facility] [address] [place] [phone] Cheryle Pryor 04/14/2025 1:00 PM EDT Clinical Support Lung Screening Program - [address] [place] [address] 04/15/2025 7:30 AM EDT PACE Home Care / PACE Home Visit [facility] [place] [facility] [address] [place] [phone] Cheryle Pryor 04/15/2025 9:00 AM EDT PACE Attendance/[place] [facility] [place] [facility] [address] [place] [address] 04/16/2025 7:30 AM EDT PACE Home Care / P[facility] Home [facility] [place] [facility] [address] [place] [phone] Cheryle Pryor 04/17/2025 7:30 AM EDT PACE Home Care / [facility] [place] [facility] [address] [place] [phone] Shawna Lebron 04/17/2025 10:30 AM EDT PACE Home Care / [facility] [place] [facility] [address] [place] [phone] Jhoana Grijalva 04/18/2025 7:30 AM EDT PACE Home Care / [place] [facility] [place] [facility] [address] [place] [phone] Jhoana Grijalva 04/19/2025 7:30 AM EDT PACE Home Care / [place] [facility] [place] [facility] [address] [place] [phone] Jhoana Grijalva 04/20/2025 PACE Attendance[place] [facility] [place] [facility] [address] [place] [phone] 04/20/2025 7:30 AM EDT PACE Home Care / [place] [facility] [place] [facility] [address] [place] [phone] Cheryle Pryor 04/20/2025 9:00 AM EDT [facility] Att[place] [facility] [place] [facility] [address] [place] [phone] 04/21/2025 7:30 AM EDT PACE Home Care / [place] [facility] [place] [facility] [address] [place] [phone] Cheryle Pryor 04/21/2025 10:30 AM EDT PACE Home Care / [place] Visit [facility] [place] [facility] [address] [place] [phone] Cheryle Pryor 04/22/2025 7:30 AM EDT PACE Home Care / [place] [facility] [place] [facility] [address] [place] [phone] Cheryle Pryor 04/22/2025 9:00 AM EDT [facility] Attendance[place] [facility] [place] [facility] [address] [place] [address] 04/23/2025 7:30 AM EDT PACE Home Care / [place] [facility] [place] [facility] [address] [place] [phone] Cheryle Pryor 04/24/2025 11:30 AM EDT PACE Home Care / [place] [facility] [place] [facility] [address] [place] [phone] Juanito Wasserman 04/25/2025 7:30 AM EDT PACE Home Care / [place] [facility] [place] [facility] [address] [place] [phone] Cheryle Pryor 04/26/2025 7:30 AM EST PACE Home Care / [place] [facility] [place] [facility] [address] [place] [phone] Cheryle Pryor 04/27/2025 PACE Attendance[place] [facility] [place] [facility] [address] [place] [phone] 04/27/2025 7:30 AM EST PACE Home Care / [place] [facility] [place] [facility] [address] [place] [phone] Cheryle Pryor 04/27/2025 9:00 AM EST [facility] Attendance[place] [facility] [place] [facility] [address] [place] [phone] 04/28/2025 7:30 AM EST PACE Home Care / [facility] [place] [facility] [address] [place] [address] Cheryle Pryor 04/28/2025 10:30 AM EST PACE Home Care / [place] Visit [facility] [place] [facility] [address] [place] [address] Cheryle Pryor 04/29/2025 7:30 AM EST PACE Home Care / [place] [place] [facility] [place] [facility] [address] [place] [address] Cheryle Pryor 04/29/2025 9:00 AM EST [facility] Attendance[place] [facility] [place] [facility] [address] [place] [address] 04/30/2025 7:30 AM EST PACE Home Care / [place] [facility] [place] [facility] [address] [place] [phone] Cheryle Pryor 05/01/2025 7:30 AM EST PACE Home Care / [place] [facility] [place] [facility] [address] [place] [phone] Shawna Lebron 05/01/2025 10:30 AM EST PACE Home Care / [place] [facility] [place] [facility] [address] [place] [phone] Jhoana Grijalva 05/02/2025 7:30 AM EST PACE Home Care / [place] [facility] [place] [facility] [address] [place] [phone] Jhoana Grijalva 05/03/2025 7:30 AM EST PACE Home Care / [place] [facility] [place] [facility] [address] [place] [phone] Jhoana Grijalva 05/04/2025 PACE Attendance[place] [facility] [place] [facility] [address] [place] [address] 05/04/2025 7:30 AM EST PACE Home Care / [facility] [place] [facility] [address] [place] [phone] Cheryle Pryor 05/04/2025 9:00 AM EST [facility] Attend[facility] [place] [facility] [address] [place] [phone] 05/05/2025 7:30 AM EST PACE Home Care / [facility] [place] [facility] [address] [place] [phone] Cheryle Pryor 05/05/2025 10:30 AM EST PACE Home Care / [facility] [place] [facility] [address] [place] [phone] Cheryle Pryor 05/06/2025 7:30 AM EST PACE Home Care / [facility] [place] [facility] [address] [place] [phone] Cheryle Pryor 05/06/2025 9:00 AM EST PACE Attendance/Day [place] [facility] [place] [facility] [address] [address] 05/07/2025 7:30 AM EST PACE Home Care / [facility] [place] [facility] [address] [place] [phone] Cheryle Pryor 05/07/2025 9:00 AM EST Appointment [facility] [address] [place] [phone] Rambo Barlow MD [address] [address] 05/08/2025 7:30 AM EST PACE Home Care / [facility] [place] [facility] [address] [place] [phone] Shawna Lebron 05/08/2025 10:30 AM EST PACE Home Care / [facility] Visit [facility] [place] [facility] [address] [place] [address] Jhoana Grijalva 05/09/2025 7:30 AM EST PACE Home Care / [facility] Visit [facility] [place] [facility] [address] [place] [address] Cheryle Pryor 05/10/2025 7:30 AM EST PACE Home Care / [facility] [place] [facility] [address] [place] [phone] Cheryle Pryor 05/11/2025 PACE Attendance[facility] [facility] [place] [facility] [address] [place] [address] 05/11/2025 7:30 AM EST PACE Home Care / [facility] [place] [facility] [place] [facility] [address] [place] [phone] Cheryle Pryor 05/11/2025 9:00 AM EST [facility] Attendance[place] [facility] [place] [facility] [address] [place] [phone] 05/12/2025 7:30 AM EST PACE Home Care / [facility] [place] [facility] [place] [facility] [address] [place] [phone] Cheryle Pryor 05/12/2025 10:30 AM EST PACE Home Care / [facility] Visit [facility] [place] [facility] [address] [place] [phone] Cheryle Pryor 05/13/2025 7:30 AM EST PACE Home Care / [facility] [place] [facility] [address] [place] [phone] Cheryle Pryor 05/13/2025 9:00 AM EST [facility] Attend[place] [facility] [place] [facility] [address] [place] [address] 05/14/2025 7:30 AM EST PACE Home Care / [facility] [place] [facility] [address] [place] [phone] Cheryle Pryor 05/15/2025 7:30 AM EST PACE Home Care / [facility] [place] [facility] [address] [place] [phone] Shawna Lebron 05/15/2025 10:30 AM EST PACE Home Care / [facility] [facility] [place] [facility] [place] [facility] [address] [place] [phone] Jhoana Grijalva 05/16/2025 7:30 AM EST PACE Home Care / [facility] [place] [facility] [address] [place] [phone] Jhoana Grijalva 05/17/2025 7:30 AM EST PACE Home Care / [facility] [place] [facility] [address] [place] [phone] Jhoana Grijalva 05/18/2025 PACE Attendance[place] [facility] [place] [facility] [address] [place] [phone] 05/18/2025 7:30 AM EST PACE Home Care / [facility] [place] [facility] [address] [place] [phone] Cheryle Pryor 05/18/2025 9:00 AM EST [facility] Attendance[place] [facility] [place] [facility] [address] [place] [phone] 05/19/2025 7:30 AM EST PACE Home Care / [facility] [place] [facility] [address] [place] [phone] Cheryle Pryor 05/19/2025 10:30 AM EST PACE Home Care / [facility] [place] [facility] [address] [place] [phone] Cheryle Pryor 05/20/2025 7:30 AM EST PACE Home Care / [facility] Visit [facility] [place] [facility] [address] [place] [phone] Cheryle Pryor 05/20/2025 9:00 AM EST [facility] Attendance[place] [facility] [place] [facility] [address] [place] [phone] 05/21/2025 7:30 AM EST PACE Home Care / [facility] [place] [facility] [address] [place] [phone] Cheryle Pryor 05/22/2025 7:30 AM EST PACE Home Care / [facility] [place] [facility] [address] [place] [phone] Shawna Lebron 05/22/2025 10:30 AM EST PACE Home Care / [facility] [place] [facility] [address] [place] [phone] Jhoana Grijalva 05/23/2025 7:30 AM EST PACE Home Care / [facility] [place] [facility] [address] [place] [phone] Cheryle Pryor 05/24/2025 7:30 AM EST PACE Home Care / [facility] [place] [facility] [address] [place] [phone] Cheryle Pryor 05/25/2025 PACE Attendance[facility] [facility] [place] [facility] [address] [place] [phone] 05/25/2025 7:30 AM EST PACE Home Care / [facility] [place] [facility] [address] [place] [address] Cheryle Pryor 05/25/2025 9:00 AM EST [facility] Att[facility] [facility] [place] [facility] [address] [place] [address] 05/26/2025 7:30 AM EST PACE Home Care / [facility] [place] [facility] [address] [place] [address] Cheryle Pryor 05/26/2025 10:30 AM EST PACE Home Care / [facility] [place] [facility] [address] [place] [address] Cheryle Pryor 05/27/2025 7:30 AM EST PACE Home Care / [facility] [place] [facility] [address] [place] [address] Cheryle Pryor 05/27/2025 9:00 AM EST [facility] Attend[place] [facility] [place] [facility] [address] [place] [address] 05/28/2025 7:30 AM EST PACE Home Care / [facility] [place] [facility] [address] [place] [address] Cheryle Pryor 05/29/2025 7:30 AM EST PACE Home Care / [facility] [place] [facility] [address] [place] [phone] Shawna Lerbon 05/29/2025 10:30 AM EST PACE Home Care / [facility] [place] [facility] [address] [place] [address] Jhoana Grijalva 05/30/2025 7:30 AM EST PACE Home Care / [facility] [place] [facility] [address] [place] [address] Jhoana Grijalva 05/31/2025 7:30 AM EST PACE Home Care / [facility] [place] [facility] [address] [place] [address] Jhoana Grijalva 06/01/2025 PACE Attendance[facility] [facility] [place] [facility] [address] [place] [address] 06/01/2025 7:30 AM EST PACE Home Care / [facility] [place] [facility] [address] [place] [address] Cheryle Pryor 06/01/2025 9:00 AM EST [facility] [place] [facility] [address] [place] [phone] 06/02/2025 7:30 AM EST PACE Home Care / [facility] [place] [facility] [address] [place] [phone] Cheryle Pryor 06/02/2025 10:30 AM EST PACE Home Care / [facility] Visit [facility] [place] [facility] [address] [place] [phone] Cheryle Pryor 06/03/2025 7:30 AM EST PACE Home Care / [facility] [place] [facility] [address] [place] [phone] Cheryle Pryor 06/03/2025 9:00 AM EST PACE Attendance[facility] [facility] [place] [facility] [address] [place] [address] 06/04/2025 7:30 AM EST PACE Home Care / [facility] [place] [facility] [address] [place] [phone] Cheryle Pryor 06/05/2025 7:30 AM EST PACE Home Care / [facility] [place] [facility] [address] [place] [address] Shawna Lebron 06/05/2025 10:30 AM EST PACE Home Care / [facility] [place] [facility] [address] [place] [address] Jhoana Grijalva 06/06/2025 7:30 AM EST PACE Home Care / [facility] [place] [facility] [address] [place] [address] Cheryle Pryor 06/07/2025 7:30 AM EST PACE Home Care / [facility] [place] [facility] [address] [place] [phone] Cheryle Pryor 06/08/2025 PACE Attendance[facility] [facility] [place] [facility] [address] [place] [address] 06/08/2025 9:00 AM EST P[facility] Attendance[facility] [place] [facility] [address] [place] [address] 06/10/2025 9:00 AM EST P[facility] Attend[facility] [place] [facility] [address] [place] [address] 06/15/2025 PACE Attendance[facility] [facility] [place] [facility] [address] [place] [address] 06/15/2025 9:00 AM EST P[facility] Attend[facility] [place] [facility] [address] [place] [address] 06/17/2025 9:00 AM EST P[facility] Attend[facility] [place] [facility] [address] [place] [address] 06/22/2025 PACE Attendance[facility] [place] [facility] [address] [place] [address] 06/22/2025 9:00 AM EST PACE Attendance[facility] [place] [facility] [address] [place] [address] 06/24/2025 9:00 AM EST [facility] [place] [facility] [address] [place] [phone] 06/29/2025 PACE Attendance[facility] [place] [facility] [address] [place] [phone] 06/29/2025 9:00 AM EST P[facility] Attendance[facility] [place] [facility] [address] [place] [phone] 07/01/2025 9:00 AM EST P[facility] Attendance[facility] [place] [facility] [address] [place] [phone] 07/06/2025 PACE Attendance[facility] [place] [facility] [address] [place] [phone] 07/06/2025 9:00 AM EST [facility] Attendance[facility] [place] [facility] [address] [place] [phone] 2025 9:00 AM EST P[facility] Attendance[facility] [place] [facility] [address] [place] [phone] 07/13/2025 [facility] Att[facility] [place] [facility] [address] [place] [phone] 07/13/2025 9:00 AM EST [facility] Attend[facility] [place] [facility] [address] [place] [phone] 07/15/2025 9:00 AM EST [facility] Attend[facility] [place] [facility] [address] [place] [phone] 07/20/2025 PACE Attendance[facility] [place] [facility] [address] [place] [address] 07/20/2025 9:00 AM EST [facility] Attend[facility] [place] [facility] [address] [place] [address] 07/22/2025 9:00 AM EST [facility] Attend[facility] [place] [facility] [address] [place] [phone] 07/27/2025 P[facility] Attendance[facility] [place] [facility] [address] [place] [phone] 07/27/2025 9:00 AM EST [facility] Attend[facility] [place] [facility] [address] [place] [phone] 07/29/2025 9:00 AM EST [facility] Attendance[facility] [place] [facility] [address] [place] [phone] 08/03/2025 PACE Attendance[facility] [place] [facility] [address] [place] [phone] 08/03/2025 9:00 AM EST [facility] Att[facility] [place] [facility] [address] [place] [phone] 08/05/2025 9:00 AM EST [facility] [place] [facility] [address] [place] [phone] 08/10/2025 P[facility] Attendance[facility] [place] [facility] [address] [place] [phone] 08/12/2025 9:00 AM EST [facility] Attend[facility] [place] [facility] [address] [place] [phone] 08/17/2025 P[facility] Attendance[facility] [place] [facility] [address] [place] [phone] 08/19/2025 9:00 AM EST [facility] Attend[facility] [place] [facility] [address] [place] [address] 08/24/2025 P[facility] Attend[facility] [place] [facility] [address] [place] [address] 08/26/2025 9:00 AM EST [facility] Attend[facility] [place] [facility] [address] [place] [address] 08/31/2025 [facility] Attend[facility] [place] [facility] [address] [place] [address] 09/02/2025 9:00 AM EDT P[facility] Attendance[facility] [place] [facility] [address] [place] [phone] 09/07/2025 PACE Attendance[facility] [place] [facility] [address] [place] [phone] 09/09/2025 9:00 AM EDT P[facility] Attend[facility] [place] [facility] [address] [place] [phone] 09/14/2025 P[facility] Att[facility] [place] [facility] [address] [place] [phone] 09/16/2025 9:00 AM EDT [facility] Att[facility] [place] [facility] [address] [place] [phone] 09/21/2025 P[facility] Attend[facility] [place] [facility] [address] [place] [phone] 09/23/2025 9:00 AM EDT [facility] Attend[facility] [place] [facility] [address] [place] [phone] 09/28/2025 [facility] Attend[facility] [place] [facility] [address] [place] [address] 09/30/2025 9:00 AM EDT [facility] Attend[facility] [place] [facility] [address] [place] [address] 10/05/2025 [facility] [place] [facility] [address] [place] [phone] 10/07/2025 9:00 AM EDT [facility] [place] [facility] [address] [place] [phone] 10/12/2025 [facility] [place] [facility] [address] [place] [phone] 10/14/2025 9:00 AM EDT [facility] [place] [facility] [address] [place] [phone] 10/19/2025 [facility] [place] [facility] [address] [place] [phone] 10/21/2025 9:00 AM EDT [facility] [place] [facility] [address] [place] [phone] 10/26/2025 [facility] [place] [facility] [address] [place] [phone] 10/28/2025 9:00 AM EDT [facility] [place] [facility] [address] [place] [phone] 11/02/2025 [facility] [place] [facility] [address] [place] [phone] 11/04/2025 9:00 AM EDT [facility] [place] [facility] [address] [place] [phone] 11/09/2025 [facility] [address] [place] [phone] 11/11/2025 9:00 AM EDT [facility] [place] [facility] [address] [place] [address] 11/16/2025 [facility] [place] [facility] [address] [place] [phone] 11/18/2025 9:00 AM EDT [facility] [place] [facility] [address] [place] [phone] 11/23/2025 [facility] [place] [facility] [address] [place] [phone] 11/25/2025 9:00 AM EDT [facility] [place] [facility] [address] [place] [phone] 11/30/2025 [facility] [place] [facility] [address] [place] [phone] 12/02/2025 9:00 AM EDT [facility] [place] [facility] [address] [place] [phone] 12/07/2025 [facility] [place] [facility] [address] [place] [phone] 12/09/2025 9:00 AM EDT [facility] [place] [facility] [address] [place] [phone] 12/14/2025 [facility] [place] [facility] [address] [place] [phone] 12/16/2025 9:00 AM EDT [facility] [place] [facility] [address] [place] [phone] 12/21/2025 [facility] [place] [facility] [address] [place] [phone] 12/23/2025 9:00 AM EDT [facility] [place] [facility] [address] [place] [address] 12/28/2025 [facility] [place] [facility] [address] [place] [address] 12/30/2025 9:00 AM EDT [facility] [place] [facility] [address] [place] [address] 01/04/2026 [facility] [place] [facility] [address] [place] [address] 01/06/2026 9:00 AM EDT [facility] [place] [facility] [address] [place] [address] 01/11/2026 [facility] [place] [facility] [address] [place] [address] 01/13/2026 9:00 AM EDT [facility] [place] [facility] [address] [place] [phone] 01/18/2026 [facility] [place] [facility] [address] [place] [address] 01/20/2026 9:00 AM EDT [facility] [place] [facility] [address] [place] [address] 01/25/2026 [facility] [place] [facility] [address] [place] [address] 01/27/2026 9:00 AM EDT [facility] [place] [facility] [address] [place] [address] 02/01/2026 [facility] [place] [facility] [address] [place] [address] 02/03/2026 9:00 AM EDT [facility] [place] [facility] [address] [place] [address] 02/08/2026 [facility] [place] [facility] [address] [place] [address] 02/10/2026 9:00 AM EDT [facility] [place] [facility] [address] [place] [address] 02/15/2026 [facility] [place] [facility] [address] [place] [address] 02/17/2026 9:00 AM EDT [facility] [place] [facility] [address] [place] [phone] 02/22/2026 [facility] [place] [facility] [address] [place] [phone] 02/24/2026 9:00 AM EDT [facility] [place] [facility] [address] [place] [phone] 03/03/2026 9:00 AM EDT [facility] [place] [facility] [address] [place] [phone] 03/10/2026 9:00 AM EDT [facility] [place] [facility] [address] [place] [address] 03/17/2026 9:00 AM EDT [facility] [place] [facility] [address] [place] [phone] 03/24/2026 9:00 AM EDT [facility] [place] [facility] [address] [place] [phone] 03/31/2026 9:00 AM EDT [facility] [place] [facility] [address] [place] [address] 04/07/2026 9:00 AM EDT [facility] [place] [address] [place] [address] 04/14/2026 9:00 AM EDT [facility] [address] [address] 04/21/2026 9:00 AM EDT [facility] [address] [address] Scheduled Referrals Name Type Priority Associated Diagnoses Order Schedule PACE General Authorization Request Outpatient Referral Routine Weakness Recurrent falls Ordered: 04/03/2025 PACE Admisssion Outpatient Referral Routine Weakness Recurrent falls Urinary tract infection without hematuria, site unspecified Ordered: 04/08/2025 documented as of this encounter Visit Diagnoses Diagnosis Recurrent falls- Primary Weakness Other malaise and fatigue Urinary tract infection without hematuria, site unspecified documented in this encounter Additional Health Concerns Assessment Noted Time PHQ-9 Depression Total Score: 18 025 1:13 PM EDT documented as of this encounter Care Teams Food Court Team Member Relationship Specialty Start Date End Date Dede Pimentel NP [address] [place] [address] PCP - General Family Medicine 05/02/24 documented as of this encounter
--- OUTSIDE RECORDS SUMMARY | 2025-04-08 16:15 | XMS_ITS | Encounter Summary ---
Author Organization [facility] Address [address] [facility] [address] [place] [address] Phone Care Team Providers Care Fur Cutter Name Role Phone June Rodriguez ADMINISTRATIVE RESIDENT Primary Care Provider June Rodriguez ADMINISTRATIVE RESIDENT Primary Care Provider Meka Arevalo Primary Care Provider [phone] Eleazar Gleason MD Primary Care Provider + Pcp, Unknown Primary Care Provider Unavailabl e Pcp, Unknown Primary Care Provider Unavailabl e Encounter Details Date Type Department Care Team (Late st Contact Info) Description 11/13/2019 Ancillary Orders [facility],Outside Imaging [address] [place] [address] System, Provider Not In, [facility] [address] [address] Social History Tobacco Use Types Packs/Day Years [...] documented as of this encounter Results * US Breast Outside (No Interpretation) (06/09/2019 12:00 AM EST) Narrative SYSTEMGENERATED, DOCUMENTATION - 11/13/2019 2:37 PM EDT This study is for PACS storage only and not for interpretation. us Provider Not In System PhD IMG OUTSIDE IMAGING W /OUT INTERPRETATION Final Result * Mammogram Outside (No Interpretation) (01/26/2016 12:00 AM EDT) Narrative SYSTEMGENERATED, DOCUMENTATION - 11/13/2019 2:36 PM EDT This study is for PACS storage only and not for interpretation. us Provider Not In System PhD IMG OUTSIDE IMAGING W /OUT INTERPRETATION Final Result * Mammogram Outside (No Interpretation) (12/04/2013 12:00 AM EDT) Narrative SYSTEMGENERATED, DOCUMENTATION - 11/13/2019 2:35 PM EDT This study is for PACS storage only and not for interpretation. us Provider Not In System PhD IMG OUTSIDE IMAGING W /OUT INTERPRETATION Final Result * Mammogram Outside (No Interpretation) (11/27/2011 12:00 [...] EDT CoV-Risk Comment:Per note documentation 05/03/2021 05/03/2021 11/10/202 1 12:38 PM EST CoV-Risk Comment:Neg covid 08/24/2022 08/24/2022 08/25/2022 6:[address] CoV-Risk 04/22/2023 04/22/2023 05/03/2023 1:22 AM EST CoV-Risk Comment:Per note documentation 10/25/2023 10/25/2023 8:32 AM EDT Influenza A 10/25/2023 10/25/2023 11/08/2023 1:21 AM EDT CoV-Risk 08/15/2024 08/15/2024 08/26/2024 1:24 AM EST documented as of this encounter Care Teams Fur Cutter Relationship Specialty Start Date End Date June Rodriguez NP [address] [place] [address] [email or web address] PCP - General Family Medicine 12/20/17 01/02/22 June Rodriguez NP [address] [place] [address] [email or web address] PCP - General Family Medicine 01/03/22 01/01/23 Meka Arevalo PA [address] [place] [phone] PCP - General Physician Senior Technical Support Engineer 01/02/23 10/25/23 Eleazar Gleason MD [address] [place] [address] [email or web address] PCP - General Rheumatology 10/26/23 08/14/24 Pcp, Unknown PCP - General 08/15/24 03/15/25 Pcp, Unknown PCP - General 03/16/25 documented as of this encounter Additional Source Comments The information contained in this document represents components of the legal health record. It is not the complete legal health record.[facility]
--- OUTSIDE RECORDS SUMMARY | 2025-04-08 16:15 | XMS_ITS | Encounter Summary ---
Author Organization [facility] Address [address] [facility] [address] [place] [address] Phone Care Team Providers Care Drink Mixer Name Role Phone June Rodriguez MOTOR POOL DRIVER Primary Care Provider June Rodriguez MOTOR POOL DRIVER Primary Care Provider Meka Arevalo Primary Care Provider [phone] Eleazar Gleason MD Primary Care Provider + Pcp, Unknown Primary Care Provider Unavailabl e Pcp, Unknown Primary Care Provider Unavailabl e Encounter Details Date Type Department Care Team (Latest Contact Info) Description 01/13/2019 Transcribe Orders Virtual Department [address] [place] [address] Lizet Snowden PA [address] [place] [address] Oropharyngeal dysphagia Social History Tobacco Use Types Packs/Day Years [...] documented as of this encounter Results * FL (Speech) Video Swallow Study (01/24/2019 10:20 AM EDT) Anatomical Region Laterality Modality Radiographic Edith ging 01/24/2019 10:5 3 AM EDT Impressions 01/24/2019 10:55 AM EDT Normal study. No laryngeal penetration or aspiration during the exam. FLUOROSCOPY TIME: 2 MIN. 33 SECONDS. 3619 IMAGES/FRAMES POS - [id number] Narrative 01/24/2019 10:55 AM EDT EXAM: FL (SPEECH) VIDEO SWALLOW STUDY COMPARISON: None FINDINGS: Metal Weather Stripper lateral neck radiograph is unremarkable. A modified barium swallow was performed with speech therapy. The patient was given a variety of graded barium consistencies to swallow. No significant abnormalities in the oral phase. No significant laryngeal penetration and no aspiration during the exam. Motion and elevation of the epiglottis appears normal. Procedure Note Barbara Wagner MD - 01/24/2019 EXAM: FL (SPEECH) VIDEO SWALLOW STUDY COMPARISON: None FINDINGS: Metal Weather Stripper lateral neck radiograph is unremarkable. A modified barium swallowwas performed with speech therapy. The patient was given a variety ofgraded barium consistencies to swallow. No significant abnormalities inthe oral phase. No significant laryngeal penetration and no aspirationduring the exam. Motion and elevation of the epiglottis appears normal. IMPRESSION: Normal study. No laryngeal penetration or aspiration during the exam. FLUOROSCOPY TIME: 2 MIN. 33 SECONDS. 3619 IMAGES/FRAMES POS - [id number] Lizet ROWLEY IMG FL EXAMS Final Resul t documented in this encounter Visit Diagnoses Diagnosis Oropharyngeal dysphagia Dysphagia, oropharyngeal phase Oropharyngeal dysphagia Dysphagia, oropharyngeal phase documented in this encounter Additional Health Concerns Infection Onset Date Last Indicated Resolved Time CoV-Risk Comment:Per note documentation 10/11/2020 10/11/2020 04/21/202 1 9:12 AM EDT CoV-Risk Comment:Per note documentation 05/03/2021 05/03/2021 12:38 PM EST CoV-Risk Comment:Neg covid 08/24/2022 08/24/2022 08/25/2022 6:[address] CoV-Risk 04/22/2023 04/22/2023 05/03/2023 1:22 AM EST CoV-Risk Comment:Per note documentation 10/25/2023 10/25/2023 8:32 AM EDT Influenza A 10/25/2023 10/25/2023 11/08/2023 1:21 AM EDT CoV-Risk 08/15/2024 08/15/2024 08/26/2024 1:24 AM EST documented as of this encounter Care Teams Drink Mixer Relationship Specialty Start Date End Date June Rodriguez NP [address] [place] [address] [email or web address] PCP - General Family Medicine 12/20/17 01/02/22 June Rodriguez NP [address] [place] [address] [email or web address] PCP - General Family Medicine 01/03/22 01/01/23 Meka Arevalo PA [address] [place] [phone] PCP - General Physician Slot Operations Director 01/02/23 10/25/23 Eleazar Gleason MD [address] [place] [address] [email or web address] PCP - General Rheumatology 10/26/23 08/14/24 Pcp, Unknown PCP - General 08/15/24 03/15/25 Pcp, Unknown PCP - General 03/16/25 documented as of this encounter Additional Source Comments The information contained in this document represents components of the legal health record. It is not the complete legal health record.[facility]
--- OUTSIDE RECORDS SUMMARY | 2025-04-08 16:16 | XMS_ITS | Encounter Summary ---
Author Organization [facility] Address [address] [facility] [facility] [address] [place] [address] Phone Care Team Providers Care Android Software Engineer Name Role Phone Meka Arevalo Primary Care Provider [phone] Eleazar Gleason MD Primary Care Provider + Pcp, Unknown Primary Care Provider Unavailabl e Pcp, Unknown Primary Care Provider Unavailabl e Encounter Details Date Type Department Care Team (Late st Contact Info) Description 02/03/2023 Procedure Pass [facility], Ct Scan - [address] [address] Social History Tobacco Use Types Packs/Day Years [...] Date of Assessment Author No Risk Indicated 02/04/2023 6:51 PM EDT Beverly Puente RN * [place] Suicide Severity Rating Scale (Screener/Recent Self-Report) Question Answer Date of Assessment Author 1. Wish to be (Past 1 Month) No 02/04/2023 6:51 PM EDT Beverly Betancur RN 2. Non-Specific Active Suici mimi Thoughts (Past 1 Month) No 02/04/2023 6:51 PM EDT Attila Betancur RN 6. Suicidal Behavior (Lifetime) No 6:51 PM EDT Beverly Betancur RN documented as of this encounter Plan [...] documented as of this encounter Care Teams Android Software Engineer Relationship Specialty Start Date End Date Meka Arevalo PA [address] [place] [phone] PCP - General Physician Boat Loader 01/02/23 10/25/23 Eleazar Gleason MD [address] [address] [email or web address] PCP - General Rheumatology 10/26/23 08/14/24 Pcp, Unknown PCP - General 08/15/24 03/15/25 Pcp, Unknown PCP - General 03/16/25 documented as of this encounter Additional Source Comments The information contained in this document represents components of the legal health record. It is not the complete legal health record.[facility]
--- OUTSIDE RECORDS SUMMARY | 2025-04-08 16:16 | XMS_ITS ---
Author Organization [facility] Address [address] [place] [address] Care Team Providers Care Checking Department Supervisor Name Role Phone Dede Pimentel MANAGER MINING Primary Care Provider [phone] Program of [facility] Elder[facility] Status:Enrolled (Active) Start date:09/24/2023 Enrollment date:09/24/2023 Related social drivers of health:Housing Instability, Financial Risk, Transportation, Social Isolation, Food Risk Related service episodes:[facility] Home Health Aide Services (Active) Overview This episode will track PACE documentation. Case Team Name Relationship Phone Dede Pimentel MANAGER MINING Nurse Practitioner [phone] Reji Weems Recreational Therapist Daniella Cote RN Model And Mold Maker Sandy Keith documentation specModel And Mold Maker Jesi Larkin CUSTOMER SUPPORT AGENT Lavender Farm Worker Eugenio Quezada OT Occupational Therapist Horace Nagy RD Dietitian Arnav Thomas PT Physical Therapist Ady Briseno [facility] Floorperson Julio Yee LCSW Gate Tender Coleen Luna documentation specModel And Mold Maker Mariah Le Gate Tender Beverly Felix [facility] Gate Tender Kenneth Castellon Spiritual Care Priyanka Felicia OT Occupational Therapist Queta Argueta [employer] II LABORER Gate Tender Nitin Us PT Physical Therapist Charisse Ramos RN Registered Nurse Yaritza Oden MD Primary Care Provider [phone] Continued Care and Services Coordination
--- OUTSIDE RECORDS SUMMARY | 2025-04-08 16:16 | XMS_ITS | Encounter Summary ---
Author Organization [facility] Address [address] [place] [address] Care Team Providers Care Aircraft Hydraulic Equipment Mechanic Name Role Phone Dede Pimentel CLAY SHOP SUPERVISOR Primary Care Provider [phone] Encounter Details Date Type Department Care Team (Late st Contact Info) Description 04/08/2025 PACE Admissions [facility] [address] [place] [address] Jennifer Pacheco, RN Social History Tobacco Use Types Packs/Day [...] 8:17 PM EDT Macrina Lezama RN documented as of this encounter Mental [...] EDT Clinical Support [facility] [address] [place] [address] 04/13/2025 PACE Attendance/Day [facility] [address] [place] [address] 04/13/2025 7:30 AM EDT PACE Home Care / PACE Home Visit [facility] [address] [place] [phone] Cheryle Pryor 04/13/2025 9:00 AM EDT PACE Attendance/[facility] [place] [facility] [address] [place] [address] 04/14/2025 7:30 AM EDT PACE Home Care / [facility] [address] [place] [address] Cheryle Pryor 04/14/2025 10:30 AM EDT PACE Home Care / [facility] Visit [facility] [place] [facility] [address] [place] [address] Cheryle Pryor 04/14/2025 1:00 PM EDT Clinical Support Lung Screening Program - [address] [place] [address] 04/15/2025 7:30 AM EDT PACE Home Care / PACE Home Visit [facility] [address] [place] [address] Cheryle Pryor 04/15/2025 9:00 AM EDT [facility] [place] [facility] [address] [place] [address] 04/16/2025 7:30 AM EDT PACE Home Care / [facility] [place] [facility] [address] [place] [address] Cheryle Pryor 04/17/2025 7:30 AM EDT PACE Home Care / [facility] Visit [facility] [place] [facility] [address] [place] [address] Shawna Lebron 04/17/2025 10:30 AM EDT PACE Home Care / [facility] [address] [place] [phone] Jhoana Grijalva 04/18/2025 7:30 AM EDT PACE Home Care / [facility] Home Visit [facility] [place] [facility] [address] [place] [address] Jhoana Grijalva 04/19/2025 7:30 AM EDT PACE Home Care / [facility] [place] [facility] [address] [place] [phone] Jhoana Grijalva 04/20/2025 PACE Attendance[facility] [facility] [place] [facility] [address] [place] [address] 04/20/2025 7:30 AM EDT PACE Home Care / [facility] [address] [place] [address] Cheryle Pryor 04/20/2025 9:00 AM EDT [facility] Att[facility] [place] [facility] [address] [place] [phone] 04/21/2025 7:30 AM EDT PACE Home Care / [facility] Visit [facility] [place] [facility] [address] [place] [phone] Cheryle Pryor 04/21/2025 10:30 AM EDT PACE Home Care / [facility] Visit [facility] [place] [facility] [address] [place] [phone] Cheryle Pryor 04/22/2025 7:30 AM EDT PACE Home Care / [facility] Visit [facility] [place] [facility] [address] [place] [phone] Cheryle Pryor 04/22/2025 9:00 AM EDT [facility] Att[facility] [place] [facility] [address] [place] [address] 04/23/2025 7:30 AM EDT PACE Home Care / [facility] [place] [facility] [address] [place] [phone] Cheryle Pryor 04/24/2025 11:30 AM EDT PACE Home Care / [facility] Visit [facility] [place] [facility] [address] [place] [phone] Juanito Wasserman 04/25/2025 7:30 AM EDT PACE Home Care / [facility] Visit [facility] [address] [place] [address] Cheryle Pryor 04/26/2025 7:30 AM EST PACE Home Care / [facility] Visit [facility] [address] [place] [phone] Cheryle Pryor 04/27/2025 P[facility] Attendance[facility] [place] [facility] [address] [place] [address] 04/27/2025 7:30 AM EST PACE Home Care / [facility] Visit [facility] [address] [place] [phone] Cheryle Pryor 04/27/2025 9:00 AM EST [facility] Att[facility] [place] [facility] [address] [place] [address] 04/28/2025 7:30 AM EST PACE Home Care / [facility] [address] [place] [phone] Cheryle Pryor 04/28/2025 10:30 AM EST PACE Home Care / [facility] Visit [facility] [address] [place] [phone] Cheryle Pryor 04/29/2025 7:30 AM EST PACE Home Care / [facility] Visit [facility] [address] [place] [phone] Cheryle Pryor 04/29/2025 9:00 AM EST [facility] [facility] [place] [facility] [address] [place] [address] 04/30/2025 7:30 AM EST PACE Home Care / [facility] Visit [facility] [place] [facility] [address] [place] [address] Cheryle Pryor 05/01/2025 7:30 AM EST PACE Home Care / [facility] Visit [facility] [address] [place] [address] Shawna Lebron 05/01/2025 10:30 AM EST PACE Home Care / [facility] Visit [facility] [address] [place] [phone] Jhoana Grijalva 05/02/2025 7:30 AM EST PACE Home Care / [facility] Visit [facility] [address] [place] [phone] Jhoana Grijalva 05/03/2025 7:30 AM EST PACE Home Care / [facility] Visit [facility] [address] [place] [phone] Jhoana Grijalva 05/04/2025 [facility] Att[facility]ance[place] [facility] [place] [facility] [address] [place] [address] 05/04/2025 7:30 AM EST PACE Home Care / [facility] [address] [place] [phone] Cheryle Pryor 05/04/2025 9:00 AM EST [facility] [place] [facility] [address] [place] [address] 05/05/2025 7:30 AM EST PACE Home Care / [facility] [address] [place] [phone] Cheryle Pryor 05/05/2025 10:30 AM EST PACE Home Care / [facility] Visit [facility] [address] [place] [phone] Cheryle Pryor 05/06/2025 7:30 AM EST PACE Home Care / [facility] Visit [facility] [address] [place] [phone] Cheryle Pryor 05/06/2025 9:00 AM EST [facility] [facility] [place] [facility] [address] [place] [address] 05/07/2025 7:30 AM EST PACE Home Care / [facility] [place] [facility] [address] [place] [phone] Cheryle Pryor 05/07/2025 9:00 AM EST Appointment [facility] [address] [place] [address] Rambo Barlow MD [address] [address] 05/08/2025 7:30 AM EST PACE Home Care / [facility] Visit [facility] [address] [place] [phone] Shawna Lebron 05/08/2025 10:30 AM EST PACE Home Care / [facility] Visit [facility] [address] [place] [phone] Jhoana Grijalva 05/09/2025 7:30 AM EST PACE Home Care / [facility] Visit [facility] [address] [place] [address] Cheryle Pryor 05/10/2025 7:30 AM EST PACE Home Care / [facility] Visit [facility] [place] [facility] [address] [place] [phone] Cheryle Pryor 05/11/2025 [facility] Att[facility]ance[facility] [facility] [place] [facility] [address] [place] [address] 05/11/2025 7:30 AM EST PACE Home Care / [facility] [place] [facility] [address] [place] [phone] Cheryle Pryor 05/11/2025 9:00 AM EST [facility] [facility] [place] [facility] [address] [place] [address] 05/12/2025 7:30 AM EST PACE Home Care / [facility] [address] [place] [phone] Cheryle Pryor 05/12/2025 10:30 AM EST PACE Home Care / [facility] Visit [facility] [address] [place] [phone] Cheryle Pryor 05/13/2025 7:30 AM EST PACE Home Care / [facility] Visit [facility] [address] [place] [phone] Cheryle Pryor 05/13/2025 9:00 AM EST [facility] [place] [facility] [address] [place] [phone] 05/14/2025 7:30 AM EST PACE Home Care / [facility] Visit [facility] [address] [place] [phone] Cheryle Pryor 05/15/2025 7:30 AM EST PACE Home Care / [facility] Visit [facility] [address] [place] [phone] Shawna Lebron 05/15/2025 10:30 AM EST PACE Home Care / [facility] [address] [place] [phone] Jhoana Grijalva 05/16/2025 7:30 AM EST PACE Home Care / [facility] Visit [facility] [address] [place] [address] Jhoana Grijalva 05/17/2025 7:30 AM EST PACE Home Care / [facility] [address] [place] [phone] Jhoana Grijalva 05/18/2025 [facility] Att[facility] [facility] [place] [facility] [address] [place] [address] 05/18/2025 7:30 AM EST PACE Home Care / [facility] [address] [place] [phone] Cheryle Pryor 05/18/2025 9:00 AM EST [facility] [place] [facility] [address] [place] [address] 05/19/2025 7:30 AM EST PACE Home Care / [facility] [address] [place] [address] Cheryle Pryor 05/19/2025 10:30 AM EST PACE Home Care / [facility] [address] [place] [phone] Cheryle Pryor 05/20/2025 7:30 AM EST PACE Home Care / [facility] Visit [facility] [address] [place] [phone] Cheryle Pryor 05/20/2025 9:00 AM EST [facility] [place] [facility] [address] [place] [address] 05/21/2025 7:30 AM EST PACE Home Care / [facility] [address] [place] [phone] Cheryle Pryor 05/22/2025 7:30 AM EST PACE Home Care / [facility] Visit [facility] [address] [place] [address] Shawna Lebron 05/22/2025 10:30 AM EST PACE Home Care / [facility] Visit [facility] [address] [place] [phone] Jhoana Grijalva 05/23/2025 7:30 AM EST PACE Home Care / [facility] [address] [place] [phone] Cheryle Pryor 05/24/2025 7:30 AM EST PACE Home Care / [facility] Visit [facility] [place] [facility] [address] [place] [phone] Cheryle Pryor 05/25/2025 P[facility] Attendance[facility] [place] [facility] [address] [place] [phone] 05/25/2025 7:30 AM EST PACE Home Care / [facility] Visit [facility] [address] [place] [phone] Cheryle Pryor 05/25/2025 9:00 AM EST [facility] [place] [facility] [address] [place] [phone] 05/26/2025 7:30 AM EST PACE Home Care / [facility] [address] [place] [phone] Cheryle Pryor 05/26/2025 10:30 AM EST PACE Home Care / [facility] [address] [place] [phone] Cheryle Pryor 05/27/2025 7:30 AM EST PACE Home Care / [facility] [address] [place] [address] Cheryle Pryor 05/27/2025 9:00 AM EST [facility] [place] [facility] [address] [place] [address] 05/28/2025 7:30 AM EST PACE Home Care / [facility] [address] [place] [phone] Cheryle Pryor 05/29/2025 7:30 AM EST PACE Home Care / [facility] [address] [place] [phone] Shawna Lebron 05/29/2025 10:30 AM EST PACE Home Care / [facility] [address] [place] [phone] Jhoana Grijalva 05/30/2025 7:30 AM EST PACE Home Care / [facility] [address] [place] [phone] Jhoana Grijalva 05/31/2025 7:30 AM EST PACE Home Care / [facility] [address] [place] [phone] Jhoana Grijalva 06/01/2025 [facility] Att[facility]ance[facility] [place] [facility] [address] [place] [address] 06/01/2025 7:30 AM EST PACE Home Care / [facility] [address] [place] [phone] Cheryle Pryor 06/01/2025 9:00 AM EST [facility] Att[facility] [place] [facility] [address] [place] [address] 06/02/2025 7:30 AM EST PACE Home Care / [facility] [address] [place] [phone] Cheryle Pryor 06/02/2025 10:30 AM EST PACE Home Care / [facility] [address] [place] [phone] Cheryle Pryor 06/03/2025 7:30 AM EST PACE Home Care / [facility] [address] [place] [phone] Cheryle Pryor 06/03/2025 9:00 AM EST [facility] [place] [facility] [address] [place] [address] 06/04/2025 7:30 AM EST PACE Home Care / [facility] [address] [place] [phone] Cheryle Pryor 06/05/2025 7:30 AM EST PACE Home Care / [facility] [address] [place] [phone] Shawna Lebron 06/05/2025 10:30 AM EST PACE Home Care / [facility] [address] [place] [phone] Jhoana Grijalva 06/06/2025 7:30 AM EST PACE Home Care / [facility] [address] [place] [phone] Cheryle Pryor 06/07/2025 7:30 AM EST PACE Home Care / [facility] [address] [place] [phone] Cheryle Pryor 06/08/2025 PACE Attendance[facility] [place] [facility] [address] [place] [address] 06/08/2025 9:00 AM EST P[facility] Attendance[facility] [place] [facility] [address] [place] [address] 06/10/2025 9:00 AM EST P[facility] Attendance[facility] [place] [facility] [address] [place] [address] 06/15/2025 PACE Attendance[facility] [place] [facility] [address] [place] [phone] 06/15/2025 9:00 AM EST PACE Attendance[facility] [place] [facility] [address] [place] [address] 06/17/2025 9:00 AM EST PACE Attendance[facility] [place] [facility] [address] [place] [address] 06/22/2025 PACE Attendance[facility] [place] [facility] [address] [place] [address] 06/22/2025 9:00 AM EST PACE Attend[facility] [place] [facility] [address] [place] [address] 06/24/2025 9:00 AM EST P[facility] Attendance[facility] [place] [facility] [address] [place] [address] 06/29/2025 PACE Attendance[facility] [place] [facility] [address] [place] [address] 06/29/2025 9:00 AM EST P[facility] Attend[facility] [place] [facility] [address] [place] [phone] 07/01/2025 9:00 AM EST [facility] Attend[facility] [place] [facility] [address] [place] [address] 07/06/2025 PACE Attendance[facility] [place] [facility] [address] [place] [address] 07/06/2025 9:00 AM EST PACE Attendance/[facility] [place] [facility] [address] [place] [phone] 2025 9:00 AM EST PACE Attendance[facility] [place] [facility] [address] [place] [phone] 07/13/2025 PACE Attendance/[facility] [place] [facility] [address] [place] [phone] 07/13/2025 9:00 AM EST PACE Attendance[facility] [place] [facility] [address] [place] [address] 07/15/2025 9:00 AM EST PACE Attendance[facility] [place] [facility] [address] [place] [phone] 07/20/2025 PACE Attendance/[facility] [place] [facility] [address] [place] [phone] 07/20/2025 9:00 AM EST P[facility] Attendance[facility] [place] [facility] [address] [place] [address] 07/22/2025 9:00 AM EST [facility] [place] [facility] [address] [place] [phone] 07/27/2025 PACE Attendance[facility] [place] [facility] [address] [place] [address] 07/27/2025 9:00 AM EST [facility] Attend[facility] [place] [facility] [address] [place] [phone] 07/29/2025 9:00 AM EST [facility] Att[facility] [place] [facility] [address] [place] [address] 08/03/2025 PACE Attendance[facility] [place] [facility] [address] [place] [address] 08/03/2025 9:00 AM EST [facility] Attend[facility] [place] [facility] [address] [place] [address] 08/05/2025 9:00 AM EST [facility] Attend[facility] [place] [facility] [address] [place] [address] 08/10/2025 PACE Attendance[facility] [place] [facility] [address] [place] [address] 08/12/2025 9:00 AM EST [facility] Attend[facility] [place] [facility] [address] [place] [address] 08/17/2025 PACE Attendance[facility] [place] [facility] [address] [place] [phone] 08/19/2025 9:00 AM EST [facility]end[facility] [place] [facility] [address] [place] [phone] 08/24/2025 PACE Attendance[facility] [place] [facility] [address] [place] [phone] 08/26/2025 9:00 AM EST [facility] Attend[facility] [place] [facility] [address] [place] [address] 08/31/2025 PACE Attendance[facility] [place] [facility] [address] [place] [address] 09/02/2025 9:00 AM EDT [facility] Attend[facility] [place] [facility] [address] [place] [address] 09/07/2025 PACE Attendance[facility] [place] [facility] [address] [place] [address] 09/09/2025 9:00 AM EDT P[facility] Attendance[facility] [place] [facility] [address] [place] [address] 09/14/2025 PACE Attendance[facility] [place] [facility] [address] [place] [address] 09/16/2025 9:00 AM EDT P[facility] Attend[facility] [place] [facility] [address] [place] [address] 09/21/2025 PACE Attendance[facility] [place] [facility] [address] [place] [address] 09/23/2025 9:00 AM EDT P[facility] Attend[facility] [place] [facility] [address] [place] [address] 09/28/2025 PACE Attendance[facility] [place] [facility] [address] [place] [address] 09/30/2025 9:00 AM EDT P[facility] Attend[facility] [place] [facility] [address] [place] [address] 10/05/2025 PACE Attendance[facility] [place] [facility] [address] [place] [address] 10/07/2025 9:00 AM EDT P[facility] Attend[facility] [place] [facility] [address] [place] [address] 10/12/2025 PACE Attend[facility] [place] [facility] [address] [place] [address] 10/14/2025 9:00 AM EDT P[facility] Attend[facility] [place] [facility] [address] [place] [address] 10/19/2025 PACE Attend[facility] [place] [facility] [address] [place] [address] 10/21/2025 9:00 AM EDT [facility] Att[facility] [place] [facility] [address] [place] [address] 10/26/2025 PACE Attendance[facility] [place] [facility] [address] [place] [address] 10/28/2025 9:00 AM EDT [facility] Attend[facility] [place] [facility] [address] [place] [address] 11/02/2025 PACE Attendance[facility] [place] [facility] [address] [place] [address] 11/04/2025 9:00 AM EDT [facility] Attend[facility] [place] [facility] [address] [place] [address] 11/09/2025 PACE Attendance[facility] [place] [facility] [address] [place] [address] 11/11/2025 9:00 AM EDT P[facility] Attend[facility] [place] [facility] [address] [place] [address] 11/16/2025 PACE Attendance[facility] [place] [facility] [address] [place] [address] 11/18/2025 9:00 AM EDT [facility] Attend[facility] [place] [facility] [address] [place] [address] 11/23/2025 PACE Attendance[facility] [place] [facility] [address] [place] [address] 11/25/2025 9:00 AM EDT [facility] Attend[facility] [place] [facility] [address] [place] [phone] 11/30/2025 PACE Attendance[facility] [place] [facility] [address] [place] [address] 12/02/2025 9:00 AM EDT [facility] [place] [facility] [address] [place] [phone] 12/07/2025 PACE Attendance[facility] [place] [facility] [address] [place] [address] 12/09/2025 9:00 AM EDT [facility] Attend[facility] [place] [facility] [address] [place] [address] 12/14/2025 PACE Attend[facility] [place] [facility] [address] [place] [address] 12/16/2025 9:00 AM EDT [facility] Attend[facility] [place] [facility] [address] [place] [phone] 12/21/2025 PACE Attend[facility] [place] [facility] [address] [place] [address] 12/23/2025 9:00 AM EDT [facility] Attend[facility] [place] [facility] [address] [place] [address] 12/28/2025 PACE Attend[facility] [place] [facility] [address] [place] [address] 12/30/2025 9:00 AM EDT P[facility] Attend[facility] [place] [facility] [address] [place] [address] 01/04/2026 PACE Attend[facility] [place] [facility] [address] [place] [address] 01/06/2026 9:00 AM EDT PACE Attend[facility] [place] [facility] [address] [place] [address] 01/11/2026 PACE Attendance[facility] [address] [place] [address] 01/13/2026 9:00 AM EDT [facility] Attend[facility] [place] [facility] [address] [place] [address] 01/18/2026 PACE Attend[facility] [address] [place] [address] 01/20/2026 9:00 AM EDT [facility] Attend[facility] [place] [facility] [address] [place] [phone] 01/25/2026 P[facility] [address] [place] [address] 01/27/2026 9:00 AM EDT PACE Attend[facility] [address] [place] [phone] 02/01/2026 [facility] Attend[facility] [address] [place] [phone] 02/03/2026 9:00 AM EDT [facility] [address] [place] [phone] 02/08/2026 [facility] Attend[facility] [address] [place] [phone] 02/10/2026 9:00 AM EDT [facility] [address] [place] [phone] 02/15/2026 [facility] [address] [place] [phone] 02/17/2026 9:00 AM EDT [facility] [address] [place] [phone] 02/22/2026 [facility] [address] [place] [phone] 02/24/2026 9:00 AM EDT [facility] [address] [place] [phone] 03/03/2026 9:00 AM EDT [facility] [address] [place] [phone] 03/10/2026 9:00 AM EDT [facility] [address] [place] [phone] 03/17/2026 9:00 AM EDT [facility] [address] [place] [phone] 03/24/2026 9:00 AM EDT [facility] [address] [place] [phone] 03/31/2026 9:00 AM EDT [facility] [address] [place] [phone] 04/07/2026 9:00 AM EDT [facility] Att[facility] [address] [place] [phone] 04/14/2026 9:00 AM EDT [facility] [address] [place] [phone] 04/21/2026 9:00 AM EDT [facility] [address] [place] [phone] documented as of this encounter Visit Diagnoses Not on filedocumented in this encounter Additional Health Concerns Assessment Noted Time PHQ-9 Depression Total Score: 18 07/2 025 1:13 PM EDT documented as of this encounter Care Teams Aircraft Hydraulic Equipment Mechanic Relationship Specialty Start Date End Date Dede Pimentel NP [address] [address] PCP - General Family Medicine 05/02/24 documented as of this encounter
--- OUTSIDE RECORDS SUMMARY | 2025-04-08 16:16 | XMS_ITS ---
Author Organization [facility] Address [address] [place] [address] Care Team Providers Care Landing Scaler Name Role Phone Dede Pimentel [employer] Primary Care Provider [phone] [facility] Status:Enrolled (Active) Start date:08/23/2024 Related program episode:Program of [facility]-Inclusive Care for the Elderly (Active) Continued Care and Services Coordination
--- OUTSIDE RECORDS SUMMARY | 2025-04-08 16:16 | XMS_ITS | Encounter Summary ---
Author Organization [facility] Address [address] [place] [address] Care Team Providers Care Sheet Rock Taper Name Role Phone Dede Pimentel SPOKE MAKER Primary Care Provider Encounter Details Date Type Department Care Team (Late st Contact Info) Description 04/08/2025 Lab Requisition [facility] - Main Lab [address] [facility] [place] [address] Ailyn Justice NP [address] [place] [address] Essential (primary) hypertension Social History Tobacco Use Types Packs/Day Years [...] EDT Clinical Support [facility]ait[facility]nn [facility]ICO[facility] [place] [address] [place] [address] 04/13/2025 PACE Attendance/Day Center [facility] [address] [place] [address] 04/13/2025 7:30 AM EDT PACE Home Care / PACE Home Visit [facility] [place] [facility] [address] [place] [address] Cheryle Pryor 04/13/2025 9:00 AM EDT PACE Attendance/[place] [facility] [place] [facility] [address] [place] [address] 04/14/2025 7:30 AM EDT PACE Home Care / PACE Home Visit [facility] [place] [facility] [address] [place] [address] Cheryle Pryor 04/14/2025 10:30 AM EDT PACE Home Care / PACE Home Visit [facility] [place] [facility] [address] [place] [address] Cheryle Pryor 04/14/2025 1:00 PM EDT Clinical Support Lung Screening Program - [address] [phone] 04/15/2025 7:30 AM EDT PACE Home Care / PACE Home Visit [facility] [place] [facility] [address] [place] [phone] Cheryle Pryor 04/15/2025 9:00 AM EDT PACE Attendance/[place] [facility] [place] [facility] [address] [place] [phone] 04/16/2025 7:30 AM EDT PACE Home Care / PACE Home Visit [facility] [place] [facility] [address] [place] [phone] Cheryle Pryor 04/17/2025 7:30 AM EDT PACE Home Care / PACE Home Visit [facility] [place] [facility] [address] [place] [phone] Shawna Lebron 04/17/2025 10:30 AM EDT PACE Home Care / [facility] Visit [facility] [place] [facility] [address] [place] [phone] Jhoana Grijalva 04/18/2025 7:30 AM EDT PACE Home Care / [facility] [place] [facility] [address] [place] [phone] Jhoana Grijalva 04/19/2025 7:30 AM EDT PACE Home Care / PACE Home Visit [facility] [place] [facility] [address] [place] [phone] Jhoana Grijalva 04/20/2025 PACE Attendance/[place] [facility] [place] [facility] [address] [place] [phone] 04/20/2025 7:30 AM EDT PACE Home Care / PACE Home Visit [facility] [place] [facility] [address] [place] [phone] Cheryle Pryor 04/20/2025 9:00 AM EDT PACE Attendance/[place] [facility] [place] [facility] [address] [place] [phone] 04/21/2025 7:30 AM EDT PACE Home Care / PACE Home Visit [facility] [place] [facility] [address] [place] [phone] Cheryle Pryor 04/21/2025 10:30 AM EDT PACE Home Care / PACE Home Visit [facility] [place] [facility] [address] [place] [phone] Cheryle Pryor 04/22/2025 7:30 AM EDT PACE Home Care / PACE Home Visit [facility] [place] [facility] [address] [place] [phone] Cheryle Pryor 04/22/2025 9:00 AM EDT PACE Attendance/[place] [facility] [place] [facility] [address] [place] [phone] 04/23/2025 7:30 AM EDT PACE Home Care / PACE Home Visit [facility] [place] [facility] [address] [place] [phone] Cheryle Pryor 04/24/2025 11:30 AM EDT PACE Home Care / [facility]ACE Home Visit [facility] [place] [facility] [address] [place] [address] Juanito Wasserman 04/25/2025 7:30 AM EDT PACE Home Care / [facility] Home Visit [facility] [place] [facility] [address] [place] [address] Cheryle Pryor 04/26/2025 7:30 AM EST PACE Home Care / P[facility] Home Visit [facility] [place] [facility] [address] [place] [address] Cheryle Pryor 04/27/2025 [place] Attendance[place] [facility] [place] [facility] [address] [place] [address] 04/27/2025 7:30 AM EST PACE Home Care / [place] [facility] Visit [facility] [place] [facility] [address] [place] [address] Cheryle Pryor 04/27/2025 9:00 AM EST [facility] Att[place] [facility] [place] [facility] [address] [place] [address] 04/28/2025 7:30 AM EST PACE Home Care / [place] [facility] Visit [facility] [place] [facility] [address] [place] [address] Cheryle Pryor 04/28/2025 10:30 AM EST PACE Home Care / [place] [facility] Visit [facility] [place] [facility] [address] [place] [address] Cheryle Pryor 04/29/2025 7:30 AM EST PACE Home Care / P[place] [facility] Visit [facility] [place] [facility] [address] [place] [address] Cheryle Pryor 04/29/2025 9:00 AM EST [facility] Att[place] [facility] [place] [facility] [address] [place] [address] 04/30/2025 7:30 AM EST PACE Home Care / [place] [facility] Visit [facility] [place] [facility] [address] [place] [address] Cheryle Pryor 05/01/2025 7:30 AM EST PACE Home Care / [place] Visit [facility] [place] [facility] [address] [place] [phone] Shawna Lebron 05/01/2025 10:30 AM EST PACE Home Care / [place] Visit [facility] [place] [facility] [address] [place] [phone] Jhoana Grijalva 05/02/2025 7:30 AM EST PACE Home Care / P[place] Home Visit [facility] [place] [facility] [address] [place] [phone] Jhoana Grijalva 05/03/2025 7:30 AM EST PACE Home Care / [place] [facility] Visit [facility] [place] [facility] [address] [place] [phone] Jhoana Grijalva 05/04/2025 PACE Attendance[place] [facility] [place] [facility] [address] [place] [phone] 05/04/2025 7:30 AM EST PACE Home Care / [place] Visit [facility] [place] [facility] [address] [place] [phone] Cheryle Pryor 05/04/2025 9:00 AM EST [facility] Attendance[place] [facility] [place] [facility] [address] [place] [phone] 05/05/2025 7:30 AM EST PACE Home Care / [place] [facility] [place] [facility] [address] [place] [phone] Cheryle Pryor 05/05/2025 10:30 AM EST PACE Home Care / P[place] [facility] Visit [facility] [place] [facility] [address] [place] [phone] Cheryle Pryor 05/06/2025 7:30 AM EST PACE Home Care / [place] [facility] Visit [facility] [place] [facility] [address] [place] [phone] Cheryle Pryor 05/06/2025 9:00 AM EST [facility] Att[place] [facility] [place] [facility] [address] [place] [address] 05/07/2025 7:30 AM EST PACE Home Care / [place] [facility] [place] [facility] [address] [place] [phone] Cheryle Pryor 05/07/2025 9:00 AM EST Appointment [facility] [address] [place] [address] Rambo Barlow MD [address] [address] 05/08/2025 7:30 AM EST PACE Home Care / PACE Home Visit [facility] [place] [facility] [address] [place] [phone] Shawna Lebron 05/08/2025 10:30 AM EST PACE Home Care / P[place] Home Visit [facility] [place] [facility] [address] [place] [phone] Jhoana Grijalva 05/09/2025 7:30 AM EST PACE Home Care / P[place] Home Visit [facility] [place] [facility] [address] [place] [phone] Cheryle Pryor 05/10/2025 7:30 AM EST PACE Home Care / [place] Visit [facility] [place] [facility] [address] [place] [phone] Cheryle Pryor 05/11/2025 PACE Attendance[place] [facility] [place] [facility] [address] [place] [address] 05/11/2025 7:30 AM EST PACE Home Care / [place] Visit [facility] [place] [facility] [address] [place] [address] Cheryle Pryor 05/11/2025 9:00 AM EST [facility] Attendance[place] [facility] [place] [facility] [address] [place] [address] 05/12/2025 7:30 AM EST PACE Home Care / [place] [facility] Visit [facility] [place] [facility] [address] [place] [phone] Cheryle Pryor 05/12/2025 10:30 AM EST PACE Home Care / [place] Visit [facility] [place] [facility] [address] [place] [phone] Cheryle Pryor 05/13/2025 7:30 AM EST PACE Home Care / P[place] [facility] Visit [facility] [place] [facility] [address] [place] [phone] Cheryle Pryor 05/13/2025 9:00 AM EST P[facility] Att[place] [facility] [place] [facility] [address] [place] [address] 05/14/2025 7:30 AM EST PACE Home Care / [place] [facility] Visit [facility] [place] [facility] [address] [place] [phone] Cheryle Pryor 05/15/2025 7:30 AM EST PACE Home Care / [place] [facility] Visit [facility] [place] [facility] [address] [place] [phone] Shawna Lebron 05/15/2025 10:30 AM EST PACE Home Care / [place] Home Visit [facility] [place] [facility] [address] [place] [address] Jhoana Grijalva 05/16/2025 7:30 AM EST PACE Home Care / [place] [facility] Visit [facility] [place] [facility] [address] [place] [phone] Jhoana Grijalva 05/17/2025 7:30 AM EST PACE Home Care / [place] [facility] Visit [facility] [place] [facility] [address] [place] [address] Jhoana Grijalva 05/18/2025 PACE Attendance[place] [facility] [place] [facility] [address] [place] [phone] 05/18/2025 7:30 AM EST PACE Home Care / [place] [facility] Visit [facility] [place] [facility] [address] [place] [phone] Cheryle Pryor 05/18/2025 9:00 AM EST P[facility] Attendance[place] [facility] [place] [facility] [address] [place] [phone] 05/19/2025 7:30 AM EST PACE Home Care / [place] [facility] Visit [facility] [place] [facility] [address] [place] [phone] Cheryle Pryor 05/19/2025 10:30 AM EST PACE Home Care / [place] [facility] Visit [facility] [place] [facility] [address] [place] [phone] Cheryle Pryor 05/20/2025 7:30 AM EST PACE Home Care / [place] [facility] Visit [facility] [place] [facility] [address] [place] [phone] Cheryle Pryor 05/20/2025 9:00 AM EST [facility] Attend[place] [facility] [place] [facility] [address] [place] [phone] 05/21/2025 7:30 AM EST PACE Home Care / [place] [facility] Visit [facility] [place] [facility] [address] [place] [address] Cheryle Pryor 05/22/2025 7:30 AM EST PACE Home Care / [place] [facility] Visit [facility] [place] [facility] [address] [place] [address] Shawna Lebron 05/22/2025 10:30 AM EST PACE Home Care / P[place] [facility] Visit [facility] [place] [facility] [address] [place] [phone] Jhoana Grijalva 05/23/2025 7:30 AM EST PACE Home Care / [place] [facility] Visit [facility] [place] [facility] [address] [place] [address] Cheryle Pryor 05/24/2025 7:30 AM EST PACE Home Care / P[place] [facility] Visit [facility] [place] [facility] [address] [place] [address] Cheryle Pryor 05/25/2025 PACE Attendance/[place] [facility] [place] [facility] [address] [place] [address] 05/25/2025 7:30 AM EST PACE Home Care / [place] [facility] Visit [facility] [place] [facility] [address] [place] [phone] Cheryle Pryor 05/25/2025 9:00 AM EST P[facility] Attendance[facility] [facility] [place] [facility] [address] [place] [address] 05/26/2025 7:30 AM EST PACE Home Care / [place] [facility] Visit [facility] [place] [facility] [address] [place] [address] Cheryle Pryor 05/26/2025 10:30 AM EST PACE Home Care / [place] [facility] Visit [facility] [place] [facility] [address] [place] [address] Cheryle Pryor 05/27/2025 7:30 AM EST PACE Home Care / P[place] [facility] Visit [facility] [place] [facility] [address] [place] [phone] Cheryle Pryor 05/27/2025 9:00 AM EST P[facility] Attendance[facility] [facility] [place] [facility] [address] [place] [address] 05/28/2025 7:30 AM EST PACE Home Care / P[place] [facility] Visit [facility] [place] [facility] [address] [place] [phone] Cheryle Pryor 05/29/2025 7:30 AM EST PACE Home Care / [place] [facility] Visit [facility] [place] [facility] [address] [place] [phone] Shawna Lebron 05/29/2025 10:30 AM EST PACE Home Care / P[place] [facility] Visit [facility] [place] [facility] [address] [place] [phone] Jhoana Grijalva 05/30/2025 7:30 AM EST PACE Home Care / [place] [facility] Visit [facility] [place] [facility] [address] [place] [phone] Jhoana Grijalva 05/31/2025 7:30 AM EST PACE Home Care / [place] [facility] Visit [facility] [place] [facility] [address] [place] [phone] Jhoana Grijalva 06/01/2025 PACE Attendance[place] [facility] [place] [facility] [address] [place] [phone] 06/01/2025 7:30 AM EST PACE Home Care / [facility] [facility] Visit [facility] [place] [facility] [address] [place] [phone] Cheryle Pryor 06/01/2025 9:00 AM EST PACE Attendance/[place] [facility] [place] [facility] [address] [place] [address] 06/02/2025 7:30 AM EST PACE Home Care / [facility] Visit [facility] [place] [facility] [address] [place] [address] Cheryle Pryor 06/02/2025 10:30 AM EST PACE Home Care / [facility] Visit [facility] [place] [facility] [address] [place] [phone] Cheryle Pryor 06/03/2025 7:30 AM EST PACE Home Care / [facility] Visit [facility] [place] [facility] [address] [place] [phone] Cheryle Pryor 06/03/2025 9:00 AM EST PACE Attendance[facility] [place] [facility] [address] [place] [address] 06/04/2025 7:30 AM EST PACE Home Care / [facility] Visit [facility] [place] [facility] [address] [place] [phone] Cheryle Pryor 06/05/2025 7:30 AM EST PACE Home Care / [place] Visit [facility] [place] [facility] [address] [place] [phone] Shawna Lebron 06/05/2025 10:30 AM EST PACE Home Care / [facility] Visit [facility] [place] [facility] [address] [place] [phone] Jhoana Grijalva 06/06/2025 7:30 AM EST PACE Home Care / [facility] Visit [facility] [place] [facility] [address] [place] [phone] Cheryle Pryor 06/07/2025 7:30 AM EST PACE Home Care / PACE Home Visit [facility] [place] [facility] [address] [place] [address] Cheryle Pryor 06/08/2025 PACE Attendance[facility] [place] [facility] [address] [place] [address] 06/08/2025 9:00 AM EST PACE Attendance[facility] [place] [facility] [address] [place] [address] 06/10/2025 9:00 AM EST P[facility] Attendance[facility] [place] [facility] [address] [place] [address] 06/15/2025 PACE Attendance[facility] [place] [facility] [address] [place] [address] 06/15/2025 9:00 AM EST PACE Attendance[facility] [place] [facility] [address] [place] [address] 06/17/2025 9:00 AM EST P[facility] Attendance[facility] [place] [facility] [address] [place] [phone] 06/22/2025 PACE Attendance[facility] [place] [facility] [address] [place] [phone] 06/22/2025 9:00 AM EST P[facility] Attendance[facility] [place] [facility] [address] [place] [address] 06/24/2025 9:00 AM EST PACE Attendance[facility] [place] [facility] [address] [place] [phone] 06/29/2025 PACE Attendance/[facility] [place] [facility] [address] [place] [phone] 06/29/2025 9:00 AM EST PACE Attendance[facility] [place] [facility] [address] [place] [phone] 07/01/2025 9:00 AM EST PACE Attendance[facility] [place] [facility] [address] [place] [phone] 07/06/2025 PACE Attendance/[place] [facility] [place] [facility] [address] [place] [phone] 07/06/2025 9:00 AM EST P[facility] Attendance[facility] [place] [facility] [address] [place] [phone] 2025 9:00 AM EST PACE Attendance[facility] [place] [facility] [address] [place] [phone] 07/13/2025 [facility] [place] [facility] [address] [place] [phone] 07/13/2025 9:00 AM EST [facility] [place] [facility] [address] [place] [phone] 07/15/2025 9:00 AM EST PACE Attendance[facility] [place] [facility] [address] [place] [phone] 07/20/2025 PACE Attendance[facility] [place] [facility] [address] [place] [phone] 07/20/2025 9:00 AM EST P[facility] Attendance[facility] [place] [facility] [address] [place] [phone] 07/22/2025 9:00 AM EST P[facility] Attendance[facility] [place] [facility] [address] [place] [phone] 07/27/2025 PACE Attendance/[facility] [place] [facility] [address] [place] [phone] 07/27/2025 9:00 AM EST P[facility] Attendance[facility] [place] [facility] [address] [place] [address] 07/29/2025 9:00 AM EST P[facility] Attendance[facility] [place] [facility] [address] [place] [address] 08/03/2025 PACE Attendance[facility] [place] [facility] [address] [place] [address] 08/03/2025 9:00 AM EST P[facility] Attendance[facility] [place] [facility] [address] [place] [address] 08/05/2025 9:00 AM EST PACE Attendance[facility] [place] [facility] [address] [place] [address] 08/10/2025 PACE Attendance/[facility] [place] [facility] [address] [place] [phone] 08/12/2025 9:00 AM EST PACE Attendance[facility] [place] [facility] [address] [place] [phone] 08/17/2025 PACE Attendance/[facility] [place] [facility] [address] [place] [phone] 08/19/2025 9:00 AM EST PACE Attendance[facility] [place] [facility] [address] [place] [address] 08/24/2025 PACE Attendance[facility] [place] [facility] [address] [place] [address] 08/26/2025 9:00 AM EST P[facility] Attendance[facility] [place] [facility] [address] [place] [address] 08/31/2025 PACE Attendance[facility] [place] [facility] [address] [place] [address] 09/02/2025 9:00 AM EDT PACE Attendance/[facility] [place] [facility] [address] [place] [address] 09/07/2025 PACE Attendance/[facility] [place] [facility] [address] [place] [address] 09/09/2025 9:00 AM EDT PACE Attendance[facility] [place] [facility] [address] [place] [address] 09/14/2025 PACE Attendance[facility] [place] [facility] [address] [place] [address] 09/16/2025 9:00 AM EDT P[facility] Attendance[facility] [place] [facility] [address] [place] [address] 09/21/2025 PACE Attendance/[facility] [place] [facility] [address] [place] [phone] 09/23/2025 9:00 AM EDT P[facility] Attendance[facility] [place] [facility] [address] [place] [phone] 09/28/2025 PACE Attendance/[facility] [place] [facility] [address] [place] [phone] 09/30/2025 9:00 AM EDT P[facility] Attendance[facility] [place] [facility] [address] [place] [phone] 10/05/2025 PACE Attendance[facility] [place] [facility] [address] [place] [phone] 10/07/2025 9:00 AM EDT P[facility] Attendance[facility] [place] [facility] [address] [place] [phone] 10/12/2025 PACE Attendance[facility] [place] [facility] [address] [place] [phone] 10/14/2025 9:00 AM EDT PACE Attendance/[facility] [place] [facility] [address] [place] [address] 10/19/2025 PACE Attendance[facility] [place] [facility] [address] [place] [address] 10/21/2025 9:00 AM EDT P[facility] Attendance[facility] [place] [facility] [address] [place] [address] 10/26/2025 PACE Attendance[facility] [place] [facility] [address] [place] [address] 10/28/2025 9:00 AM EDT P[facility] Attend[facility] [place] [facility] [address] [place] [address] 11/02/2025 PACE Attendance[facility] [place] [facility] [address] [place] [phone] 11/04/2025 9:00 AM EDT P[facility] Attend[facility] [place] [facility] [address] [place] [phone] 11/09/2025 PACE Attendance[facility] [place] [facility] [address] [place] [phone] 11/11/2025 9:00 AM EDT P[facility] Attendance[facility] [place] [facility] [address] [place] [phone] 11/16/2025 PACE Attendance[facility] [place] [facility] [address] [place] [address] 11/18/2025 9:00 AM EDT P[facility] Attendance[facility] [place] [facility] [address] [place] [phone] 11/23/2025 PACE Attendance[facility] [place] [facility] [address] [place] [address] 11/25/2025 9:00 AM EDT P[facility] Attendance[facility] [place] [facility] [address] [place] [address] 11/30/2025 PACE Attendance[facility] [place] [facility] [address] [place] [address] 12/02/2025 9:00 AM EDT PACE Attendance[facility] [place] [facility] [address] [place] [phone] 12/07/2025 PACE Attendance[facility] [place] [facility] [address] [place] [phone] 12/09/2025 9:00 AM EDT P[facility] Attendance[facility] [place] [facility] [address] [place] [phone] 12/14/2025 PACE Attendance[facility] [place] [facility] [address] [place] [phone] 12/16/2025 9:00 AM EDT P[facility] Attend[facility] [place] [facility] [address] [place] [phone] 12/21/2025 PACE Attendance[facility] [place] [facility] [address] [place] [phone] 12/23/2025 9:00 AM EDT P[facility] Attendance[facility] [place] [facility] [address] [place] [phone] 12/28/2025 PACE Attendance[facility] [place] [facility] [address] [place] [phone] 12/30/2025 9:00 AM EDT P[facility] Attendance[facility] [place] [facility] [address] [place] [phone] 01/04/2026 PACE Attendance[facility] [place] [facility] [address] [place] [phone] 01/06/2026 9:00 AM EDT PACE Attendance[facility] [place] [facility] [address] [place] [address] 01/11/2026 PACE Attendance[facility] [place] [facility] [address] [place] [phone] 01/13/2026 9:00 AM EDT PACE Attendance[facility] [place] [facility] [address] [place] [phone] 01/18/2026 PACE Attendance[facility] [place] [facility] [address] [place] [address] 01/20/2026 9:00 AM EDT PACE Attendance[facility] [place] [facility] [address] [place] [phone] 01/25/2026 PACE Attendance[facility] [place] [facility] [address] [place] [phone] 01/27/2026 9:00 AM EDT P[facility] Attend[facility] [place] [facility] [address] [place] [phone] 02/01/2026 PACE Attendance[facility] [place] [facility] [place] [facility] [address] [place] [phone] 02/03/2026 9:00 AM EDT [facility] [address] [place] [phone] 02/08/2026 [facility] [place] [facility] [address] [place] [phone] 02/10/2026 9:00 AM EDT [facility] [place] [facility] [address] [place] [phone] 02/15/2026 [facility] [address] [place] [phone] 02/17/2026 9:00 AM EDT [facility] [address] [place] [phone] 02/22/2026 [facility] [address] [place] [phone] 02/24/2026 9:00 AM EDT [facility] [place] [facility] [address] [place] [phone] 03/03/2026 9:00 AM EDT [facility] [place] [facility] [address] [place] [phone] 03/10/2026 9:00 AM EDT [facility] [place] [facility] [address] [place] [phone] 03/17/2026 9:00 AM EDT [facility] [place] [facility] [address] [place] [phone] 03/24/2026 9:00 AM EDT [facility] [place] [facility] [address] [place] [phone] 03/31/2026 9:00 AM EDT [facility] [place] [facility] [address] [place] [phone] 04/07/2026 9:00 AM EDT [facility] [place] [facility] [address] [place] [phone] 04/14/2026 9:00 AM EDT [facility] [place] [facility] [address] [place] [phone] 04/21/2026 9:00 AM EDT [facility] [place] [facility] [address] [place] [phone] documented as of this encounter Procedures Procedure Name Priority Date/Time Associated Diagnosis Comments COMPLETE BLOOD COUNT Routine 04/08/2025 6:18 AM EDT Essential (primary) hypertension COMPREHENSIVE METABOLIC PANEL Routine 04/08/2025 6:18 AM EDT Essential (primary) hypertension documented in this encounter Results * (ABNORMAL) Comprehensive metabolic panel (04/08/2025 6:18 AM EDT) Sodium 136 133 - 145 mmol/L LAB CHEMISTRY METHOD 04/08/2025 9:07 AM [facility] Potassium 4.0 3.5 - 5.5 mmol/L LAB CHEMISTRY METHOD 04/08/2025 9:07 AM [facility] Chloride 104 96 - 110 mmol/L LAB CHEMISTRY METHOD 04/08/2025 9:07 AM [facility] CO2 25 21 - 32 mmol/L LAB CHEMISTRY METHOD 04/08/2025 9:07 AM [facility] Anion Gap 7 3 - 11 LAB CHEMISTRY METHOD 04/08/2025 9:07 AM [facility] Glucose 93 70 - 100 mg/dL LAB CHEMISTRY METHOD 04/08/2025 9:07 AM [facility] BUN 17 5 - 25 mg/dL LAB CHEMISTRY METHOD 04/08/2025 9:07 AM [facility] Creatinine 1.00 0.50 - 1.10 mg/dL LAB CHEMISTRY METHOD 04/08/2025 9:07 AM [facility] eGFR 64 >=60 mL/min/1. 73m2 LAB CHEMISTRY METHOD 04/08/2025 9:07 AM [facility] Comment:Calculation based on the Chronic Kidney Disease Epidemiology Collaboration (CKD-EPI) equation refit without adjustment for race. BUN/Creatinine Ratio 17.0 LAB CHEMISTRY METHOD 04/08/2025 9:07 AM [facility] Calcium 9.8 8.5 - 10.5 mg/dL LAB CHEMISTRY METHOD 04/08/2025 9:07 AM EDT [facility] AST (SGOT) 26 10 - 42 unit/L LAB CHEMISTRY METHOD 04/08/2025 9:07 AM [facility] ALT (SGPT) 35 10 - 60 unit/L LAB CHEMISTRY METHOD 04/08/2025 9:07 AM [facility] Alkaline Phosphatase 147(H) 42 - 121 unit/L LAB CHEMISTRY METHOD 04/08/2025 9:07 AM T [facility] Total Protein 7.6 6.0 - 8.0 g/dL LAB CHEMISTRY METHOD 04/08/2025 9:07 AM T [facility] Albumin 3.8 3.2 - 5.0 g/dL LAB CHEMISTRY METHOD 04/08/2025 9:07 AM [facility] Total Bilirubin 0.3 0.0 - 1.4 mg/dL LAB CHEMISTRY METHOD 04/08/2025 9:07 AM [facility] Blood Venous blood specimen / Unknown Venipuncture / Unknown 04/08/2025 6:18 AM EDT 04/08/2025 8:21 AM EDT us Ailyn Justice [employer] LAB BLOOD ORDERABLES Final Re sult [facility] [address] [place] [address], * Complete blood count (04/08/2025 6:18 AM EDT) WBC 9.2 4.8 - 10.8 K/mcL LAB HEMETOLOGY METHOD 04/08/2025 8:51 AM [facility] RBC 4.70 3.80 - 4.80 M/mcL LAB HEMETOLOGY METHOD 04/08/2025 8:51 AM T [facility] Hemoglobin 14.9 11.5 - 16.0 g/dL LAB HEMETOLOGY METHOD 04/08/2025 8:51 AM EDT [facility] Hematocrit 45.0 35.0 - 47.0 % LAB HEMETOLOGY METHOD 04/08/2025 8:51 AM EDT [facility] MCV 95.7 79.0 - 98.0 FL LAB HEMETOLOGY METHOD 04/08/2025 8:51 AM EDT [facility] MCH 31.7 27.0 - 32.0 pcg LAB HEMETOLOGY METHOD 04/08/2025 8:51 AM EDT [facility] MCHC 33.1 32.0 - 37.0 g/dL LAB HEMETOLOGY METHOD 04/08/2025 8:51 AM EDT [facility] RDW 12.6 11.0 - 15.0 % LAB HEMETOLOGY METHOD 04/08/2025 8:51 AM EDT [facility] Platelets 349 130 - 400 K/mcL LAB HEMETOLOGY METHOD 04/08/2025 8:51 AM EDT [facility] MPV 10.0 7.0 - 11.0 FL LAB HEMETOLOGY METHOD 04/08/2025 8:51 AM T [facility] NRBC 0.0 <1.0 % LAB HEMETOLOGY METHOD 04/08/2025 8:51 AM EDT [facility] NRBC Absolute 0.00 <0.10 K/mcL LAB HEMETOLOGY METHOD 04/08/2025 8:51 AM T [facility] Blood Venous blood specimen / Unknown Venipuncture / Unknown 04/08/2025 6:18 AM EDT 04/08/2025 8:21 AM EDT us Ailyn Justice [employer] LAB BLOOD ORDERABLES Final Re sult [facility] [address] [place] [address], documented in this encounter Visit Diagnoses Diagnosis Essential (primary) hypertension Unspecified essential hypertension documented in this encounter Additional Health Concerns Assessment Noted Time PHQ-9 Depression Total Score: 18 025 1:13 PM EDT documented as of this encounter Care Teams Sheet Rock Taper Relationship Specialty Start Date End Date Dede Pimentel NP [address] [address] PCP - General Family Medicine 05/02/24 documented as of this encounter
--- OUTSIDE RECORDS SUMMARY | 2025-04-08 16:16 | XMS_ITS | Clinical Summary ---
Author Organization [facility] Address [address] [place] [address] Care Team Providers Care Supervisor [place] Name Role Phone Eleazar Gleason MD Primary Care Provider [phone] Allergies Active Allergy Reactions Criticality Noted Date [...] age to complete this topic Care Teams Supervisor [place] Relationship Specialty Start Date End Date Eleazar Gleason MD PCP - General Rheumatology 04/11/24
--- OUTSIDE RECORDS SUMMARY | 2025-04-08 16:16 | XMS_ITS | Encounter Summary ---
Author Organization [facility] Address [address] [place] [address] Care Team Providers Care Cardiology Teacher Name Role Phone Dede Pimentel INTERNET DATABASE SPECIALIST Primary Care Provider [phone] Reason for Referral * Consultation (Routine) - Closed Specialty Diagnoses / Procedures Referred By Contac t Referred To Contact [facility] Facility Diagnoses Physical deconditioning Dede Pimentel NP [address] [facility] 1 [place] [address] Phone: tel: fax: [facility] [address] [place] [address] Referral ID Status Reason Start Date Expiration Date V isits Requested Visits Authorized [id number] Closed Co-Managemen t of Problem 04/07/2025 04/08/2025 1 1 Encounter Details Date Type Department Care Team (Latest Contact Info) Description 04/07/2025 [facility] [address] [place] [phone] Jennifer Pacheco RN Physical deconditioning (Primary Dx) Social History Tobacco Use Types [...] Macrina Lezama RN documented in this encounter Progress Notes * Jennifer Pacheco RN - 04/07/2025 11:59 PM EDT 04/08/25 [facility] case management rn reports that they are preparing paperwork for transfer to [facility]. Voicemail left with it project manager to provide expect. 04/08/25 Par discharged from [facility] to [facility] late yesterdayafternoon. Email received from facility case management rneducation manager that par is very behavioral this morning, stating that she (par) wants to go and is not staying . Facility SW involved. Par refused to talk to her daughter in an attempt to redirect her. Spoke with IDT, who directs to speak with daughter Jayda re: transfer to [facility]. Spoke with daughter, who verbalizes that transfer to [facility] would be the best option for par. Daughter concerned that par will remain in the ED for an extended period of time. Educated daughter on need for medical clearance and then transfer to the psych pod for evaluation. Jayda spoke with facility, and gave permission for transfer. She will see par at the SNF, and will accompany her to the ED for support and background. Facility case management rn to notify this radio script writer when par transfers. This radio script writer to reach out to ED casemanager to provide expect and background. documented in this encounter Plan of Treatment Upcoming Encounters Date Type Department Care Team (Late st Contact Info) Description 04/09/2025 11:30 AM EDT Clinical Support [facility] [place] [address] [place] [phone] 04/13/2025 [facility] Attendance[facility] [place] [facility] [address] [place] [phone] 04/13/2025 7:30 AM EDT PACE Home Care / PACE Home [facility] [address] [place] [phone] Cheryle Pryor 04/13/2025 9:00 AM EDT [facility] Attend[facility] [place] [facility] [address] [place] [phone] 04/14/2025 7:30 AM EDT PACE Home Care / [facility] [place] [facility] [address] [place] [address] Cheryle Pryor 04/14/2025 10:30 AM EDT PACE Home Care / PACE Home Visit [facility] [place] [facility] [address] [place] [address] Cheryle Pryor 04/14/2025 1:00 PM EDT Clinical Support Lung Screening Program - [address] [place] [address] 04/15/2025 7:30 AM EDT PACE Home Care / PACE Home Visit [facility] [place] [facility] [address] [place] [address] Cheryle Pryor 04/15/2025 9:00 AM EDT P[facility] Attendance[facility] [place] [facility] [address] [place] [address] 04/16/2025 7:30 AM EDT PACE Home Care / PACE Home Visit [facility] [place] [facility] [address] [place] [phone] Cheryle Pryor 04/17/2025 7:30 AM EDT PACE Home Care / PACE Home [facility] [place] [facility] [address] [place] [phone] Shawna Lebron 04/17/2025 10:30 AM EDT PACE Home Care / PACE Home [facility] [place] [facility] [address] [place] [phone] Jhoana Grijalva 04/18/2025 7:30 AM EDT PACE Home Care / [facility] Home Visit [facility] [place] [facility] [address] [place] [phone] Jhoana Grijalva 04/19/2025 7:30 AM EDT PACE Home Care / PACE Home Visit [facility] [place] [facility] [address] [place] [phone] Jhoana Grijalva 04/20/2025 [facility] [facility] [place] [facility] [address] [place] [phone] 04/20/2025 7:30 AM EDT PACE Home Care / [facility] [place] [facility] [address] [place] [phone] Cheryle Pryor 04/20/2025 9:00 AM EDT [facility] [facility] [place] [facility] [address] [place] [phone] 04/21/2025 7:30 AM EDT PACE Home Care / [facility] [place] [facility] [address] [place] [phone] Cheryle Pryor 04/21/2025 10:30 AM EDT PACE Home Care / [facility] [place] [facility] [address] [place] [phone] Cheryle Pryor 04/22/2025 7:30 AM EDT PACE Home Care / [facility] [place] [facility] [address] [place] [phone] Cheryle Pryor 04/22/2025 9:00 AM EDT [facility] [facility] [place] [facility] [address] [place] [phone] 04/23/2025 7:30 AM EDT PACE Home Care / [facility] [place] [facility] [address] [place] [phone] Cheryle Pryor 04/24/2025 11:30 AM EDT PACE Home Care / [facility] [place] [facility] [address] [place] [phone] Juanito Wasserman 04/25/2025 7:30 AM EDT PACE Home Care / [facility] [place] [facility] [address] [place] [address] Cheryle Pryor 04/26/2025 7:30 AM EST PACE Home Care / [facility] [place] [facility] [address] [place] [phone] Cheryle Pryor 04/27/2025 [facility] Att[facility] [facility] [place] [facility] [address] [place] [address] 04/27/2025 7:30 AM EST PACE Home Care / [facility] [place] [facility] [address] [place] [phone] Cheryle Pryor 04/27/2025 9:00 AM EST [facility] [facility] [place] [facility] [address] [place] [phone] 04/28/2025 7:30 AM EST PACE Home Care / [facility] [place] [facility] [address] [place] [phone] Cheryle Pryor 04/28/2025 10:30 AM EST PACE Home Care / [facility] [place] [facility] [address] [place] [phone] Cheryle Pryor 04/29/2025 7:30 AM EST PACE Home Care / [facility] [place] [facility] [address] [place] [phone] Cheryle Pryor 04/29/2025 9:00 AM EST [facility] [facility] [place] [facility] [address] [place] [phone] 04/30/2025 7:30 AM EST PACE Home Care / [facility] [place] [facility] [address] [place] [phone] Cheryle Pryor 05/01/2025 7:30 AM EST PACE Home Care / [facility] [place] [facility] [address] [place] [phone] Shawna Lebron 05/01/2025 10:30 AM EST PACE Home Care / [facility] [place] [facility] [address] [place] [phone] Jhoana Grijalva 05/02/2025 7:30 AM EST PACE Home Care / [facility] [place] [facility] [address] [place] [phone] Jhoana Grijalva 05/03/2025 7:30 AM EST PACE Home Care / [facility] [place] [facility] [address] [place] [phone] Jhoana Grijalva 05/04/2025 [facility] Att[facility] [facility] [place] [facility] [address] [place] [phone] 05/04/2025 7:30 AM EST PACE Home Care / [facility] [place] [facility] [address] [place] [phone] Cheryle Pryor 05/04/2025 9:00 AM EST [facility] [facility] [place] [facility] [address] [place] [phone] 05/05/2025 7:30 AM EST PACE Home Care / [facility] [place] [facility] [address] [place] [phone] Cheryle Pryor 05/05/2025 10:30 AM EST PACE Home Care / [facility] [place] [facility] [address] [place] [phone] Cheryle Pryor 05/06/2025 7:30 AM EST PACE Home Care / [facility] [place] [facility] [address] [place] [phone] Cheryle Pryor 05/06/2025 9:00 AM EST [facility] Att[facility] [facility] [place] [facility] [address] [place] [address] 05/07/2025 7:30 AM EST PACE Home Care / [facility] [place] [facility] [address] [place] [address] Cheryle Pryor 05/07/2025 9:00 AM EST Appointment [facility] Endoscopy [address] [place] [address] Rambo Barlow MD [address] [address] 05/08/2025 7:30 AM EST PACE Home Care / [facility] Visit [facility] [place] [facility] [address] [place] [phone] Shawna Lebron 05/08/2025 10:30 AM EST PACE Home Care / [facility] [place] [facility] [address] [place] [phone] Jhoana Grijalva 05/09/2025 7:30 AM EST PACE Home Care / [facility] [place] [facility] [address] [place] [address] Cheryle Pryor 05/10/2025 7:30 AM EST PACE Home Care / [facility] [place] [facility] [address] [place] [phone] Cheryle Pryor 05/11/2025 [facility] Att[facility]ance[facility] [facility] [place] [facility] [address] [place] [address] 05/11/2025 7:30 AM EST PACE Home Care / [facility] [place] [facility] [address] [place] [address] Cheryle Pryor 05/11/2025 9:00 AM EST [facility] [facility] [place] [facility] [address] [place] [address] 05/12/2025 7:30 AM EST PACE Home Care / [facility] [place] [facility] [address] [place] [address] Cheryle Pryor 05/12/2025 10:30 AM EST PACE Home Care / [facility] [place] [facility] [address] [place] [phone] Cheryle Pryor 05/13/2025 7:30 AM EST PACE Home Care / [facility] [place] [facility] [address] [place] [phone] Cheryle Pryor 05/13/2025 9:00 AM EST [facility] [facility] [place] [facility] [address] [place] [address] 05/14/2025 7:30 AM EST PACE Home Care / [facility] [place] [facility] [address] [place] [phone] Cheryle Pryor 05/15/2025 7:30 AM EST PACE Home Care / [facility] [place] [facility] [address] [place] [phone] Shawna Lebron 05/15/2025 10:30 AM EST PACE Home Care / [facility] [place] [facility] [address] [place] [phone] Jhoana Grijalva 05/16/2025 7:30 AM EST PACE Home Care / [facility] [place] [facility] [address] [place] [address] Jhoana Grijalva 05/17/2025 7:30 AM EST PACE Home Care / [facility] [place] [facility] [address] [place] [address] Jhoana Grijalva 05/18/2025 [facility] Att[facility]ance[facility] [facility] [place] [facility] [address] [place] [phone] 05/18/2025 7:30 AM EST PACE Home Care / [facility] [place] [facility] [address] [place] [phone] Cheryle Pryor 05/18/2025 9:00 AM EST [facility] Att[facility] [facility] [place] [facility] [address] [place] [phone] 05/19/2025 7:30 AM EST PACE Home Care / [facility] [place] [facility] [address] [place] [phone] Cheryle Pryor 05/19/2025 10:30 AM EST PACE Home Care / [facility] [place] [facility] [address] [place] [phone] Cheryle Pryor 05/20/2025 7:30 AM EST PACE Home Care / [facility] [place] [facility] [address] [place] [phone] Cheryle Pryor 05/20/2025 9:00 AM EST [facility] [facility] [place] [facility] [address] [place] [phone] 05/21/2025 7:30 AM EST PACE Home Care / [facility] [place] [facility] [address] [place] [phone] Cheryle Pryor 05/22/2025 7:30 AM EST PACE Home Care / [facility] [place] [facility] [address] [place] [address] Shawna Lebron 05/22/2025 10:30 AM EST PACE Home Care / [facility] [place] [facility] [address] [place] [address] Jhoana Grijavla 05/23/2025 7:30 AM EST PACE Home Care / [facility] [place] [facility] [address] [place] [address] Cheryle Pryor 05/24/2025 7:30 AM EST PACE Home Care / [facility] [place] [facility] [address] [place] [phone] Cheryle Pryor 05/25/2025 [facility] Att[facility] [facility] [place] [facility] [address] [place] [address] 05/25/2025 7:30 AM EST PACE Home Care / [facility] [place] [facility] [address] [place] [address] Cheryle Pryor 05/25/2025 9:00 AM EST [facility] [facility] [place] [facility] [address] [place] [address] 05/26/2025 7:30 AM EST PACE Home Care / [facility] [address] [place] [phone] Cheryle Pryor 05/26/2025 10:30 AM EST PACE Home Care / [facility] [place] [facility] [address] [place] [address] Chreyle Pryor 05/27/2025 7:30 AM EST PACE Home Care / [facility] [address] [place] [address] Cheryle Pryor 05/27/2025 9:00 AM EST [facility] [facility] [place] [facility] [address] [place] [address] 05/28/2025 7:30 AM EST PACE Home Care / [facility] [place] [facility] [address] [place] [address] Cheryle Pryor 05/29/2025 7:30 AM EST PACE Home Care / [facility] [address] [place] [phone] Shawna Lebron 05/29/2025 10:30 AM EST PACE Home Care / [facility] [address] [place] [phone] Jhoana Grijalva 05/30/2025 7:30 AM EST PACE Home Care / [facility] [address] [place] [phone] Jhoana Grijalva 05/31/2025 7:30 AM EST PACE Home Care / [facility] [address] [place] [phone] Jhoana Grijalva 06/01/2025 [facility] Att[facility] [place] [facility] [address] [place] [phone] 06/01/2025 7:30 AM EST PACE Home Care / [facility] [address] [place] [phone] Cheryle Pryor 06/01/2025 9:00 AM EST [facility] [facility] [place] [facility] [address] [place] [phone] 06/02/2025 7:30 AM EST PACE Home Care / [facility] [address] [place] [address] Cheryle Pryor 06/02/2025 10:30 AM EST PACE Home Care / [facility] [place] [facility] [address] [place] [address] Cheryle Pryor 06/03/2025 7:30 AM EST PACE Home Care / [facility] [place] [facility] [address] [place] [address] Cheryle Pryor 06/03/2025 9:00 AM EST [facility] [facility] [place] [facility] [address] [place] [address] 06/04/2025 7:30 AM EST PACE Home Care / [facility] [place] [facility] [address] [place] [address] Cheryle Pryor 06/05/2025 7:30 AM EST PACE Home Care / [facility] [place] [facility] [address] [place] [phone] Shawna Lebron 06/05/2025 10:30 AM EST PACE Home Care / [facility] [place] [facility] [address] [place] [phone] Jhoana Grijalva 06/06/2025 7:30 AM EST PACE Home Care / [facility] [place] [facility] [address] [place] [phone] Cheryle Pryor 06/07/2025 7:30 AM EST PACE Home Care / [facility] [place] [facility] [address] [place] [phone] Cheryle Pryor 06/08/2025 [facility] Attendance[facility] [place] [facility] [address] [place] [address] 06/08/2025 9:00 AM EST [facility] Attend[facility] [place] [facility] [address] [place] [phone] 06/10/2025 9:00 AM EST [facility] Att[facility] [place] [facility] [address] [place] [phone] 06/15/2025 PACE Attendance[facility] [facility] [place] [facility] [address] [place] [phone] 06/15/2025 9:00 AM EST [facility] Att[facility] [place] [facility] [address] [place] [phone] 06/17/2025 9:00 AM EST [facility] [place] [facility] [address] [place] [phone] 06/22/2025 P[facility] Attend[facility] [place] [facility] [address] [place] [address] 06/22/2025 9:00 AM EST [facility] [place] [facility] [address] [place] [phone] 06/24/2025 9:00 AM EST [facility] [place] [facility] [address] [place] [phone] 06/29/2025 P[facility] Attendance[facility] [place] [facility] [address] [place] [phone] 06/29/2025 9:00 AM EST [facility] [place] [facility] [address] [place] [phone] 07/01/2025 9:00 AM EST [facility] [place] [facility] [address] [place] [phone] 07/06/2025 [facility] Att[facility] [place] [facility] [address] [place] [address] 07/06/2025 9:00 AM EST [facility] [place] [facility] [address] [place] [address] 2025 9:00 AM EST [facility] [place] [facility] [address] [place] [address] 07/13/2025 [facility] [place] [facility] [address] [place] [phone] 07/13/2025 9:00 AM EST [facility] [place] [facility] [address] [place] [phone] 07/15/2025 9:00 AM EST [facility] [place] [facility] [address] [place] [address] 07/20/2025 P[facility] Attend[facility] [place] [facility] [address] [place] [phone] 07/20/2025 9:00 AM EST [facility] [place] [facility] [address] [place] [phone] 07/22/2025 9:00 AM EST [facility] [place] [facility] [address] [place] [address] 07/27/2025 [facility] Attend[facility] [place] [facility] [address] [place] [phone] 07/27/2025 9:00 AM EST [facility] [place] [facility] [address] [place] [address] 07/29/2025 9:00 AM EST [facility] [place] [facility] [address] [place] [phone] 08/03/2025 P[facility] Attend[facility] [place] [facility] [address] [place] [phone] 08/03/2025 9:00 AM EST [facility] [place] [facility] [address] [place] [phone] 08/05/2025 9:00 AM EST [facility] [place] [facility] [address] [place] [phone] 08/10/2025 [facility] Attendance[facility] [place] [facility] [address] [place] [phone] 08/12/2025 9:00 AM EST [facility] [place] [facility] [address] [place] [phone] 08/17/2025 [facility] [place] [facility] [address] [place] [phone] 08/19/2025 9:00 AM EST [facility] [place] [facility] [address] [place] [phone] 08/24/2025 [facility] Att[facility] [place] [facility] [address] [place] [phone] 08/26/2025 9:00 AM EST [facility] [place] [facility] [address] [place] [phone] 08/31/2025 [facility] Att[facility] [place] [facility] [address] [place] [phone] 09/02/2025 9:00 AM EDT [facility] Att[facility] [place] [facility] [address] [place] [phone] 09/07/2025 [facility] Attend[facility] [place] [facility] [address] [place] [address] 09/09/2025 9:00 AM EDT [facility] [place] [facility] [address] [place] [phone] 09/14/2025 [facility] Att[facility] [place] [facility] [address] [place] [address] 09/16/2025 9:00 AM EDT [facility] [place] [facility] [address] [place] [phone] 09/21/2025 [facility] Att[facility] [place] [facility] [address] [place] [phone] 09/23/2025 9:00 AM EDT P[facility] Attend[facility] [place] [facility] [address] [place] [phone] 09/28/2025 P[facility] Attend[facility] [place] [facility] [address] [place] [phone] 09/30/2025 9:00 AM EDT [facility] [place] [facility] [address] [place] [phone] 10/05/2025 [facility] Att[facility] [place] [facility] [address] [place] [phone] 10/07/2025 9:00 AM EDT [facility] [place] [facility] [address] [place] [phone] 10/12/2025 P[facility] Attend[facility] [place] [facility] [address] [place] [phone] 10/14/2025 9:00 AM EDT [facility] [place] [facility] [address] [place] [phone] 10/19/2025 [facility] Att[facility] [place] [facility] [address] [place] [phone] 10/21/2025 9:00 AM EDT [facility] Att[facility] [place] [facility] [address] [place] [address] 10/26/2025 [facility] [place] [facility] [address] [place] [phone] 10/28/2025 9:00 AM EDT [facility] [place] [facility] [address] [place] [address] 11/02/2025 [facility] [place] [facility] [address] [place] [phone] 11/04/2025 9:00 AM EDT [facility] [place] [facility] [address] [place] [phone] 11/09/2025 P[facility] [place] [facility] [address] [place] [phone] 11/11/2025 9:00 AM EDT [facility] [place] [facility] [address] [place] [phone] 11/16/2025 [facility] [place] [facility] [address] [place] [phone] 11/18/2025 9:00 AM EDT [facility] [address] [place] [phone] 11/23/2025 [facility] [address] [place] [phone] 11/25/2025 9:00 AM EDT [facility] [address] [place] [phone] 11/30/2025 [facility] [address] [place] [address] 12/02/2025 9:00 AM EDT [facility] [address] [place] [phone] 12/07/2025 [facility] [address] [place] [address] 12/09/2025 9:00 AM EDT [facility] [address] [place] [address] 12/14/2025 [facility] [address] [place] [address] 12/16/2025 9:00 AM EDT [facility] [address] [place] [phone] 12/21/2025 [facility] [address] [place] [phone] 12/23/2025 9:00 AM EDT [facility] [address] [place] [address] 12/28/2025 [facility] [address] [place] [address] 12/30/2025 9:00 AM EDT [facility] [address] [place] [address] 01/04/2026 [facility] [address] [place] [address] 01/06/2026 9:00 AM EDT [facility] [address] [place] [address] 01/11/2026 [facility] [address] [place] [address] 01/13/2026 9:00 AM EDT [facility] [address] [place] [address] 01/18/2026 [facility] [address] [place] [address] 01/20/2026 9:00 AM EDT [facility] [address] [place] [address] 01/25/2026 [facility] [address] [place] [address] 01/27/2026 9:00 AM EDT [facility] [address] [place] [phone] 02/01/2026 [facility] [address] [place] [phone] 02/03/2026 9:00 AM EDT [facility] [address] [place] [address] 02/08/2026 [facility] [address] [place] [address] 02/10/2026 9:00 AM EDT [facility] [address] [place] [address] 02/15/2026 [facility] [address] [place] [address] 02/17/2026 9:00 AM EDT [facility] [address] [place] [address] 02/22/2026 [facility] [address] [place] [address] 02/24/2026 9:00 AM EDT [facility] [address] [place] [phone] 03/03/2026 9:00 AM EDT [facility] [address] [place] [phone] 03/10/2026 9:00 AM EDT [facility] [address] [place] [phone] 03/17/2026 9:00 AM EDT [facility] [address] [place] [phone] 03/24/2026 9:00 AM EDT [facility] [address] [place] [phone] 03/31/2026 9:00 AM EDT [facility] [address] [place] [phone] 04/07/2026 9:00 AM EDT [facility] [address] [place] [phone] 04/14/2026 9:00 AM EDT [facility] [address] [place] [phone] 04/21/2026 9:00 AM EDT [facility] [address] [place] [phone] Scheduled Referrals Name Type Priority Associated Diagnoses Orde r Schedule PACE Admisssion Outpatient Referral Routine Physical deconditioning Ordered: 04/08/2025 documented as of this encounter Visit Diagnoses Diagnosis Physical deconditioning- Primary Muscular wasting and disuse atrophy, not elsewhere classified documented in this encounter Additional Health Concerns Assessment Noted Time PHQ-9 Depression Total Score: 18 025 1:13 PM EDT documented as of this encounter Care Teams Cardiology Teacher Relationship Specialty Start Date End Date Dede Pimentel NP [address] [address] PCP - General Family Medicine 05/02/24 documented as of this encounter
--- OUTSIDE RECORDS SUMMARY | 2025-04-08 16:17 | XMS_ITS | Encounter Summary ---
Author Organization [facility] Address [address] [place] [address] Care Team Providers Care Brick Chimney Builder Name Role Phone Dede Pimentel DRUG SAFETY ASSOCIATE Primary Care Provider [phone] Reason for Visit * Reason Onset Date Comments Clinical 11/14/2024 Participant call ed to report ribs were still hurting related to recent fall. Participant states she had an xray and there was noted fracture? She was ordered Percocet for the pain and reports she is all out of them. Spoke with search engine optimization specialist provider Alexy ROMAN and he instructed par to take Tylenol for the pain. Informed participant of the plan and that someone from the clinic will f/u on 11/14/24. Verbalized understanding. Encounter Details Date Type Department Care Team (Late st Contact Info) Description 11/14/2024 [place] On-Call [facility] Clinic [address] [place] [address] Dede Pimentel NP 200 [facility] 1 [place], [place] [id number] Social History Tobacco Use Types Packs/Day Years Used Date Smoking Tobacco: Every Day Smokeless Tobacco: Never Comments:cigs per day : 6 Calculated quantity/packs [...] as of this encounter Progress Notes * Naila Kinney RN - 11/14/2024 8:33 AM EDT 11/14/2024 IDT aware documented in this encounter Plan of Treatment Upcoming Encounters Date Type Department Care Team (Late st Contact Info) Description 04/09/2025 11:30 AM EDT Clinical Support [facility] [place] [address] [place] [phone] 04/13/2025 [place] Attend[facility] [place] [facility] [address] [place] [phone] 04/13/2025 7:30 AM EDT PACE Home Care / PACE Home Visit [facility] [place] [facility] [address] [place] [phone] Cheryle Pryor 04/13/2025 9:00 AM EDT [facility] Attend[facility] [place] [facility] [address] [place] [phone] 04/14/2025 7:30 AM EDT PACE Home Care / PACE Home Visit [facility] [place] [facility] [address] [place] [phone] Cheryle Pryor 04/14/2025 10:30 AM EDT PACE Home Care / PACE Home Visit [facility] [place] [facility] [address] [place] [phone] Cheryle Pryor 04/14/2025 1:00 PM EDT Clinical Support Lung Screening Program - [place] [address] [place] [address] 04/15/2025 7:30 AM EDT P[facility] Home Care / [facility] [place] [facility] [address] [place] [address] Cheryle Pryor 04/15/2025 9:00 AM EDT [facility] [facility] [facility] [place] [facility] [address] [place] [address] 04/16/2025 7:30 AM EDT PACE Home Care / [place] [facility] [place] [facility] [address] [place] [phone] Cheryle Pryor 04/17/2025 7:30 AM EDT PACE Home Care / [place] [facility] [place] [facility] [address] [place] [phone] Shawna Lebron 04/17/2025 10:30 AM EDT PACE Home Care / [place] [facility] [place] [facility] [address] [place] [phone] Jhoana Grijalva 04/18/2025 7:30 AM EDT PACE Home Care / [facility] [facility] [place] [facility] [place] [facility] [address] [place] [phone] Jhoana Grijalva 04/19/2025 7:30 AM EDT PACE Home Care / [facility] [facility] [place] [facility] [place] [facility] [address] [place] [phone] Jhoana Grijalva 04/20/2025 [place] [facility] [facility] [place] [facility] [address] [place] [address] 04/20/2025 7:30 AM EDT PACE Home Care / [place] [facility] [place] [facility] [address] [place] [phone] Cheryle Pryor 04/20/2025 9:00 AM EDT [place] [facility] [facility] [place] [facility] [address] [place] [address] 04/21/2025 7:30 AM EDT PACE Home Care / [place] [facility] [place] [facility] [address] [place] [phone] Cheryle Pryor 04/21/2025 10:30 AM EDT PACE Home Care / [place] [facility] [place] [facility] [place] [facility] [address] [place] [phone] Cheryle Pryor 04/22/2025 7:30 AM EDT PACE Home Care / [facility] [facility] [place] [facility] [address] [place] [phone] Cheryle Pryor 04/22/2025 9:00 AM EDT [facility] Attend[facility] [facility] [place] [facility] [address] [place] [phone] 04/23/2025 7:30 AM EDT PACE Home Care / [place] [facility] Visit [facility] [place] [facility] [address] [place] [phone] Cheryle Pryor 04/24/2025 11:30 AM EDT PACE Home Care / [place] [facility] [place] [facility] [place] [facility] [address] [place] [phone] Juanito Wasserman 04/25/2025 7:30 AM EDT PACE Home Care / [place] [facility] [place] [facility] [place] [facility] [address] [place] [phone] Cheryle Pryor 04/26/2025 7:30 AM EST PACE Home Care / [facility] [facility] [place] [facility] [address] [place] [phone] Cheryle Pryor 04/27/2025 [place] [facility] [place] [facility] [address] [place] [address] 04/27/2025 7:30 AM EST PACE Home Care / [place] [facility] [place] [facility] [place] [facility] [address] [place] [address] Cheryle Pryor 04/27/2025 9:00 AM EST [facility] [facility] [place] [facility] [address] [place] [address] 04/28/2025 7:30 AM EST PACE Home Care / [place] [facility] [place] [facility] [place] [facility] [address] [place] [phone] Cheryle Pryor 04/28/2025 10:30 AM EST PACE Home Care / [place] [facility] [place] [facility] [place] [facility] [address] [place] [phone] Cheryle Pryor 04/29/2025 7:30 AM EST PACE Home Care / [place] [facility] [place] [facility] [place] [facility] [address] [place] [phone] Cheryle Pryor 04/29/2025 9:00 AM EST [facility] Attendance[facility] [facility] [place] [facility] [address] [place] [phone] 04/30/2025 7:30 AM EST PACE Home Care / [place] [facility] Visit [facility] [place] [facility] [address] [place] [phone] Cheryle Pryor 05/01/2025 7:30 AM EST PACE Home Care / [place] [facility] [place] [facility] [place] [facility] [address] [place] [phone] Shawna Lebron 05/01/2025 10:30 AM EST PACE Home Care / [place] [facility] [place] [facility] [place] [facility] [address] [place] [phone] Jhoana Grijalva 05/02/2025 7:30 AM EST PACE Home Care / [place] [facility] [place] [facility] [place] [facility] [address] [place] [phone] Jhoana Grijalva 05/03/2025 7:30 AM EST PACE Home Care / [place] [facility] [place] [facility] [place] [facility] [address] [place] [phone] Jhoana Grijalva 05/04/2025 [place] Att[facility] [facility] [place] [facility] [address] [place] [phone] 05/04/2025 7:30 AM EST PACE Home Care / [place] [facility] [place] [facility] [place] [facility] [address] [place] [phone] Cheryle Pryor 05/04/2025 9:00 AM EST [facility] [facility] [place] [facility] [address] [place] [phone] 05/05/2025 7:30 AM EST PACE Home Care / [facility] [facility] [place] [facility] [place] [facility] [address] [place] [phone] Cheryle Pryor 05/05/2025 10:30 AM EST PACE Home Care / [place] [facility] [place] [facility] [address] [place] [phone] Cheryle Pryor 05/06/2025 7:30 AM EST PACE Home Care / [place] [facility] [place] [facility] [address] [place] [phone] Cheryle Pryor 05/06/2025 9:00 AM EST [facility] [facility] [place] [facility] [address] [place] [phone] 05/07/2025 7:30 AM EST PACE Home Care / [place] [facility] [place] [facility] [address] [place] [address] Cheryle Pryor 05/07/2025 9:00 AM EST Appointment [facility] [address] [place] [phone] Rambo Barlow MD [address] [address] 05/08/2025 7:30 AM EST PACE Home Care / [facility] Home Visit [facility] [place] [facility] [address] [place] [phone] Shawna Lebron 05/08/2025 10:30 AM EST PACE Home Care / [place] Visit [facility] [place] [facility] [address] [place] [phone] Jhoana Grijalva 05/09/2025 7:30 AM EST PACE Home Care / [place] [facility] [place] [facility] [place] [facility] [address] [place] [phone] Cheryle Pryor 05/10/2025 7:30 AM EST PACE Home Care / [place] [facility] [place] [facility] [place] [facility] [address] [place] [phone] Cheryle Pryor 05/11/2025 [place] Att[facility] [facility] [place] [facility] [address] [place] [address] 05/11/2025 7:30 AM EST PACE Home Care / [facility] [facility] [place] [facility] [address] [place] [phone] Cheryle Pryor 05/11/2025 9:00 AM EST [facility] Att[facility] [facility] [place] [facility] [address] [place] [address] 05/12/2025 7:30 AM EST PACE Home Care / [place] [facility] Visit [facility] [place] [facility] [address] [place] [address] Cheryle Pryor 05/12/2025 10:30 AM EST PACE Home Care / [facility] [facility] Visit [facility] [place] [facility] [address] [place] [address] Cheryle Pryor 05/13/2025 7:30 AM EST PACE Home Care / [place] [facility] Visit [facility] [place] [facility] [address] [place] [address] Cheryle Pryor 05/13/2025 9:00 AM EST [facility] Att[facility] [facility] [place] [facility] [address] [place] [address] 05/14/2025 7:30 AM EST PACE Home Care / [place] [facility] [place] [facility] [address] [place] [phone] Cheryle Pryor 05/15/2025 7:30 AM EST PACE Home Care / [place] [facility] Visit [facility] [place] [facility] [address] [place] [phone] Shawna Lebron 05/15/2025 10:30 AM EST PACE Home Care / [place] [facility] Visit [facility] [place] [facility] [address] [place] [phone] Jhoana Grijalva 05/16/2025 7:30 AM EST PACE Home Care / [place] [facility] Visit [facility] [place] [facility] [address] [place] [phone] Jhoana Grijalva 05/17/2025 7:30 AM EST PACE Home Care / [place] [facility] [place] [facility] [address] [place] [phone] Jhoana Grijalva 05/18/2025 [place] Attend[place] [facility] [place] [facility] [address] [place] [address] 05/18/2025 7:30 AM EST PACE Home Care / [facility] [facility] [place] [facility] [address] [place] [phone] Cheryle Pryor 05/18/2025 9:00 AM EST [facility] Att[facility] [facility] [place] [facility] [address] [place] [phone] 05/19/2025 7:30 AM EST PACE Home Care / [place] [facility] Visit [facility] [place] [facility] [address] [place] [phone] Cheryle rPyor 05/19/2025 10:30 AM EST PACE Home Care / [place] [facility] Visit [facility] [place] [facility] [address] [place] [phone] Cheryle Pryor 05/20/2025 7:30 AM EST PACE Home Care / [facility] Visit [facility] [place] [facility] [address] [place] [phone] Cheryle Pryor 05/20/2025 9:00 AM EST [facility] [place] [facility] [address] [place] [phone] 05/21/2025 7:30 AM EST PACE Home Care / [facility] [facility] Visit [facility] [place] [facility] [address] [place] [phone] Cheryle Pryor 05/22/2025 7:30 AM EST PACE Home Care / [place] [facility] Visit [facility] [place] [facility] [address] [place] [phone] Shawna Lebron 05/22/2025 10:30 AM EST PACE Home Care / [place] [facility] Visit [facility] [place] [facility] [address] [place] [phone] Jhoana Grijalva 05/23/2025 7:30 AM EST PACE Home Care / [place] [facility] Visit [facility] [place] [facility] [address] [place] [address] Cheryle Pryor 05/24/2025 7:30 AM EST PACE Home Care / [place] [facility] [place] [facility] [place] [facility] [address] [place] [address] Cheryle Pryor 05/25/2025 [place] Att[facility] [facility] [place] [facility] [address] [place] [address] 05/25/2025 7:30 AM EST PACE Home Care / [facility] [facility] [place] [facility] [address] [place] [address] Cheryle Pryor 05/25/2025 9:00 AM EST [facility] Att[facility] [facility] [place] [facility] [address] [place] [address] 05/26/2025 7:30 AM EST PACE Home Care / [facility] [facility] [place] [facility] [address] [place] [address] Cheryle Pryor 05/26/2025 10:30 AM EST PACE Home Care / [place] [facility] Visit [facility] [place] [facility] [address] [place] [address] Cheryle Pryor 05/27/2025 7:30 AM EST PACE Home Care / [facility] [facility] Visit [facility] [place] [facility] [address] [place] [address] Cheryle Pryor 05/27/2025 9:00 AM EST [facility] Att[facility] [facility] [place] [facility] [address] [place] [address] 05/28/2025 7:30 AM EST PACE Home Care / [facility] [facility] [place] [facility] [address] [place] [address] Cheryle Pryor 05/29/2025 7:30 AM EST PACE Home Care / [place] [facility] [place] [facility] [address] [place] [phone] Shawna Lebron 05/29/2025 10:30 AM EST PACE Home Care / [place] [facility] [place] [facility] [address] [place] [phone] Jhoana Grijalva 05/30/2025 7:30 AM EST PACE Home Care / [facility] [facility] [place] [facility] [address] [place] [phone] Jhoana Grijalva 05/31/2025 7:30 AM EST PACE Home Care / [facility] [facility] [place] [facility] [address] [place] [phone] Jhoana Grijalva 06/01/2025 [place] Attend[facility] [facility] [place] [facility] [address] [place] [phone] 06/01/2025 7:30 AM EST PACE Home Care / [facility] [facility] [place] [facility] [address] [place] [phone] Cheryle Pryor 06/01/2025 9:00 AM EST [facility] Att[facility] [facility] [place] [facility] [address] [place] [phone] 06/02/2025 7:30 AM EST PACE Home Care / [facility] [facility] [place] [facility] [address] [place] [phone] Cheryle Pryor 06/02/2025 10:30 AM EST PACE Home Care / [facility] [facility] [place] [facility] [address] [place] [phone] Cheryle Pryor 06/03/2025 7:30 AM EST PACE Home Care / [facility] [facility] [place] [facility] [address] [place] [phone] Cheryle Pryor 06/03/2025 9:00 AM EST [facility] Att[facility] [facility] [place] [facility] [address] [place] [phone] 06/04/2025 7:30 AM EST PACE Home Care / [facility] [facility] [place] [facility] [address] [place] [phone] Cheryle Pryor 06/05/2025 7:30 AM EST PACE Home Care / [facility] [facility] [place] [facility] [address] [place] [phone] Shawna Lebron 06/05/2025 10:30 AM EST PACE Home Care / [facility] [facility] [place] [facility] [address] [place] [phone] Jhoana Grijalva 06/06/2025 7:30 AM EST PACE Home Care / [facility] [facility] [place] [facility] [address] [place] [phone] Cheryle Pryor 06/07/2025 7:30 AM EST PACE Home Care / [facility] [place] [facility] [address] [place] [phone] Cheryle Pryor 06/08/2025 [facility] Attend[facility] [facility] [place] [facility] [address] [place] [phone] 06/08/2025 9:00 AM EST [facility] Att[facility] [facility] [place] [facility] [address] [place] [phone] 06/10/2025 9:00 AM EST [facility] Att[facility] [place] [facility] [address] [place] [phone] 06/15/2025 [facility] Attend[facility] [place] [facility] [address] [place] [phone] 06/15/2025 9:00 AM EST [facility] Attend[facility] [place] [facility] [address] [place] [phone] 06/17/2025 9:00 AM EST [facility] Att[facility] [place] [facility] [address] [place] [address] 06/22/2025 [facility] [place] [facility] [address] [place] [phone] 06/22/2025 9:00 AM EST [facility] Attend[facility] [place] [facility] [address] [place] [phone] 06/24/2025 9:00 AM EST [facility] [place] [facility] [address] [place] [phone] 06/29/2025 [facility] [place] [facility] [address] [place] [phone] 06/29/2025 9:00 AM EST [facility] Attend[facility] [place] [facility] [address] [place] [phone] 07/01/2025 9:00 AM EST [facility] [place] [facility] [address] [place] [phone] 07/06/2025 [facility] Attendance[facility] [place] [facility] [address] [place] [phone] 07/06/2025 9:00 AM EST [facility] Att[facility] [place] [facility] [address] [place] [phone] 2025 9:00 AM EST [facility] Att[facility] [place] [facility] [address] [place] [address] 07/13/2025 [facility] Att[facility] [place] [facility] [address] [place] [address] 07/13/2025 9:00 AM EST P[facility] Attendance[facility] [place] [facility] [address] [place] [phone] 07/15/2025 9:00 AM EST [facility] Attend[facility] [place] [facility] [address] [place] [phone] 07/20/2025 [place] Attendance[facility] [place] [facility] [address] [place] [phone] 07/20/2025 9:00 AM EST [facility]end[facility] [place] [facility] [address] [place] [phone] 07/22/2025 9:00 AM EST [facility] [place] [facility] [address] [place] [phone] 07/27/2025 [facility] Attend[facility] [place] [facility] [address] [place] [phone] 07/27/2025 9:00 AM EST [facility] [place] [facility] [address] [place] [phone] 07/29/2025 9:00 AM EST [facility] [place] [facility] [address] [place] [phone] 08/03/2025 [facility] Attend[facility] [place] [facility] [address] [place] [phone] 08/03/2025 9:00 AM EST [facility] [place] [facility] [address] [place] [phone] 08/05/2025 9:00 AM EST [facility] [place] [facility] [address] [place] [address] 08/10/2025 [facility] [facility] [place] [facility] [address] [place] [address] 08/12/2025 9:00 AM EST [facility] [place] [facility] [address] [place] [address] 08/17/2025 [facility] [place] [facility] [address] [place] [address] 08/19/2025 9:00 AM EST [facility] [place] [facility] [address] [place] [address] 08/24/2025 [facility] [facility] [place] [facility] [address] [place] [phone] 08/26/2025 9:00 AM EST [facility] [place] [facility] [address] [place] [phone] 08/31/2025 [facility] Att[facility] [place] [facility] [address] [place] [phone] 09/02/2025 9:00 AM EDT [facility] Att[facility] [place] [facility] [address] [place] [phone] 09/07/2025 [facility] Att[facility] [place] [facility] [address] [place] [address] 09/09/2025 9:00 AM EDT [facility] Att[facility] [place] [facility] [address] [place] [address] 09/14/2025 [facility] Att[facility] [place] [facility] [address] [place] [address] 09/16/2025 9:00 AM EDT [facility] [place] [facility] [address] [place] [address] 09/21/2025 [facility] Att[facility] [place] [facility] [address] [place] [address] 09/23/2025 9:00 AM EDT [facility] Attend[facility] [place] [facility] [address] [place] [address] 09/28/2025 [facility] [place] [facility] [address] [place] [phone] 09/30/2025 9:00 AM EDT [facility] Att[facility] [place] [facility] [address] [place] [address] 10/05/2025 [facility] [place] [facility] [address] [place] [phone] 10/07/2025 9:00 AM EDT [facility] [place] [facility] [address] [place] [phone] 10/12/2025 [facility] [place] [facility] [address] [place] [address] 10/14/2025 9:00 AM EDT [facility] [place] [facility] [address] [place] [phone] 10/19/2025 [facility] Att[facility] [place] [facility] [address] [place] [address] 10/21/2025 9:00 AM EDT [facility] Att[facility] [place] [facility] [address] [place] [phone] 10/26/2025 [facility] Att[facility] [place] [facility] [address] [place] [phone] 10/28/2025 9:00 AM EDT [facility] Att[facility] [place] [facility] [address] [place] [address] 11/02/2025 [facility] Att[facility] [place] [facility] [address] [place] [phone] 11/04/2025 9:00 AM EDT [facility] Att[facility] [place] [facility] [address] [place] [phone] 11/09/2025 [facility] [place] [facility] [address] [place] [phone] 11/11/2025 9:00 AM EDT [facility] Att[facility] [place] [facility] [address] [place] [phone] 11/16/2025 [facility] [place] [facility] [address] [place] [address] 11/18/2025 9:00 AM EDT [facility] [place] [facility] [address] [place] [address] 11/23/2025 [facility] [place] [facility] [address] [place] [phone] 11/25/2025 9:00 AM EDT [facility] Att[facility] [place] [facility] [address] [place] [phone] 11/30/2025 [facility] Att[facility] [place] [facility] [address] [place] [phone] 12/02/2025 9:00 AM EDT [facility] Att[facility] [place] [facility] [address] [place] [phone] 12/07/2025 [facility] Att[facility] [place] [facility] [address] [place] [address] 12/09/2025 9:00 AM EDT [facility] Att[facility] [place] [facility] [address] [place] [address] 12/14/2025 [facility] Att[facility] [place] [facility] [address] [place] [address] 12/16/2025 9:00 AM EDT [facility] Att[facility] [place] [facility] [address] [place] [address] 12/21/2025 [facility] [place] [facility] [address] [place] [phone] 12/23/2025 9:00 AM EDT [facility] [place] [facility] [address] [place] [address] 12/28/2025 [facility] [place] [facility] [address] [place] [phone] 12/30/2025 9:00 AM EDT [facility] [place] [facility] [address] [place] [phone] 01/04/2026 [facility] [place] [facility] [address] [place] [phone] 01/06/2026 9:00 AM EDT PACE Attendance/Day Center [facility] [address] [place] [address] 01/11/2026 [facility] Att[facility] [address] [place] [phone] 01/13/2026 9:00 AM EDT [facility] [address] [place] [phone] 01/18/2026 [facility] [address] [place] [address] 01/20/2026 9:00 AM EDT [facility] [place] [facility] [address] [place] [address] 01/25/2026 [facility] [address] [place] [address] 01/27/2026 9:00 AM EDT [facility] [place] [facility] [address] [place] [address] 02/01/2026 [facility] [place] [facility] [address] [place] [phone] 02/03/2026 9:00 AM EDT [facility] [place] [facility] [address] [place] [address] 02/08/2026 [facility] [place] [facility] [address] [place] [address] 02/10/2026 9:00 AM EDT [facility] [place] [facility] [address] [place] [phone] 02/15/2026 [facility] [address] [place] [phone] 02/17/2026 9:00 AM EDT [facility] [place] [facility] [address] [place] [address] 02/22/2026 [facility] [place] [facility] [address] [place] [address] 02/24/2026 9:00 AM EDT [facility] [place] [facility] [address] [place] [address] 03/03/2026 9:00 AM EDT [facility] [place] [facility] [address] [place] [address] 03/10/2026 9:00 AM EDT [facility] [place] [facility] [address] [place] [phone] 03/17/2026 9:00 AM EDT [facility] [address] [place] [phone] 03/24/2026 9:00 AM EDT [facility] [place] [facility] [address] [place] [phone] 03/31/2026 9:00 AM EDT [facility] [place] [facility] [address] [place] [phone] 04/07/2026 9:00 AM EDT [facility] [place] [facility] [address] [phone] 04/14/2026 9:00 AM EDT [facility] [place] [facility] [address] [place] [phone] 04/21/2026 9:00 AM EDT [facility] [place] [facility] [address] [place] [phone] documented as of this encounter Visit Diagnoses Not on filedocumented in this encounter Care Teams Brick Chimney Builder Relationship Specialty Start Date End Date Dede Pimentel NP [address] [place] [phone] PCP - General Family Medicine 05/02/24 documented as of this encounter
--- OUTSIDE RECORDS SUMMARY | 2025-04-08 16:17 | XMS_ITS | Encounter Summary ---
Author Organization [facility] Address [address] [facility] [address] [place] [address] Phone Care Team Providers Care Farebox Repairer Name Role Phone June Rodriguez NP Primary Care Provider Meka Arevalo Primary Care Provider [phone] Eleazar Gleason MD Primary Care Provider + Pcp, Unknown Primary Care Provider Unavailabl e Pcp, Unknown Primary Care Provider Unavailabl e Encounter Details Date Type Department Care Team (Late st Contact Info) Description 08/25/[address] [facility], Ct Scan - [address] [address] Social History Tobacco Use Types Packs/Day Years [...] documented as of this encounter Care Teams Farebox Repairer Relationship Specialty Start Date End Date June Rodriguez NP [address] [place] [phone] [email or web address] PCP - General Family Medicine 01/03/22 01/01/23 Meka Arevalo PA [address] [place] [phone] PCP - General Physician Curam Developer 01/02/23 10/25/23 Eleazar Gleason MD [address] [place] [phone] [email or web address] PCP - General Rheumatology 10/26/23 08/14/24 Pcp, Unknown PCP - General 08/15/24 03/15/25 Pcp, Unknown PCP - General 03/16/25 documented as of this encounter Additional Source Comments The information contained in this document represents components of the legal health record. It is not the complete legal health record.[facility]
--- OUTSIDE RECORDS SUMMARY | 2025-04-08 16:17 | XMS_ITS | Encounter Summary ---
Author Organization [facility] Address [address] [facility] [address] [place] [address] Phone Care Team Providers Care Die Casting Machine Setter Name Role Phone June Rodriguez NP Primary Care Provider Meka Arevalo Primary Care Provider [phone] Eleazar Gleason MD Primary Care Provider + Pcp, Unknown Primary Care Provider Unavailabl e Pcp, Unknown Primary Care Provider Unavailabl e Encounter Details Date Type Department Care Team (Late st Contact Info) Description 09/26/2022 Procedure Pass [facility], Ct Scan - [address] [address] Social History Tobacco Use Types Packs/Day Years [...] Date of Assessment Author No Risk Indicated 09/26/2022 4:28 PM EDT Reena Garzon RN * [place]fe Suicide Severity Rating Scale (Screener/Recent Self-Report) Question Answer Date of Assessment Author 1. Wish to be (Past 1 Month) No 023 4:28 PM EDT Reena Garzon RN 2. Non-Specific Active Suici mimi Thoughts (Past 1 Month) No 09/26/2022 4:28 PM EDT Ana Garzon ace, RN 6. Suicidal Behavior (Lifetime) No 4:28 PM EDT Reena Garzon RN documented as of this encounter Plan [...] documented as of this encounter Care Teams Die Casting Machine Setter Relationship Specialty Start Date End Date June Rodriguez NP [address] [place] [phone] [email or web address] PCP - General Family Medicine 01/03/22 01/01/23 Meka Arevalo PA [address] [place] [phone] PCP - General Physician Puncher 01/02/23 10/25/23 Eleazar Gleason MD [address] [place] [phone] (work) [email or web address] PCP - General Rheumatology 10/26/23 08/14/24 Pcp, Unknown PCP - General 08/15/24 03/15/25 Pcp, Unknown PCP - General 03/16/25 documented as of this encounter Additional Source Comments The information contained in this document represents components of the legal health record. It is not the complete legal health record.[facility]
--- OUTSIDE RECORDS SUMMARY | 2025-04-08 16:17 | XMS_ITS | Encounter Summary ---
Author Organization [facility] Address [address] [facility] [address] [place] [address] Phone Care Team Providers Care Woodworking Machine Offbearer Name Role Phone June Rodriguez CONTROL SYSTEM COMPUTER SCIENTIST Primary Care Provider June Rodriguez CONTROL SYSTEM COMPUTER SCIENTIST Primary Care Provider Meka Arevalo Primary Care Provider [phone] Eleazar Gleason MD Primary Care Provider + Pcp, Unknown Primary Care Provider Unavailabl e Pcp, Unknown Primary Care Provider Unavailabl e Encounter Details Date Type Department Care Team (Late st Contact Info) Description 02/18/2018 Ancillary Orders Virtual Department [address] [place] [address] June Rodriguez, CONTROL SYSTEM COMPUTER SCIENTIST [address] [place] [address] 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 No findings of DVT are seen. S/S: History of DVT, patient on anticoagulation, chronic leg pain POS [id number] Narrative 02/22/2018 11:46 AM EDT The deep venous system of the right leg is reasonably well-visualized with barrientos scale imaging, color-flow imaging, and Doppler spectral analysis. No findings of deep venous thrombophlebitis are identified. There is complete compression of the deep venous system evident. Normal color flow is seen. There is good augmentation on the right. Evaluation of the popliteal fossa discloses no findings of concern. The exam is difficult because of body habitus. Comparison with the prior study from December 20, 2017 is made. Procedure Note Ashish Farah MD - 02/22/2018 The deep venous system of the right leg is reasonably well-visualized withgray scale imaging, color-flow imaging, and Doppler spectral analysis. Nofindings of deep venous thrombophlebitis are identified. There iscomplete compression of the deep venous system evident. Normal color flowis seen. There is good augmentation on the right. Evaluation of thepopliteal fossa discloses no findings of concern. The exam is difficultbecause of body habitus. Comparison with the prior study from November is made. IMPRESSION: Normal ultrasound evaluation of the deep venous system of the right leg.No findings of DVT are seen. 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 documented in this encounter Additional Health Concerns [...] documented as of this encounter Care Teams Woodworking Machine Offbearer Relationship Specialty Start Date End Date June Rodriguez NP [address] [place] [address] [email or web address] PCP - General Family Medicine 12/20/17 01/02/22 June Rodriguez NP [address] [place] [address] [email or web address] PCP - General Family Medicine 01/03/22 01/01/23 Meka Arevalo PA [address] [place] [phone] PCP - General Physician Cyber Engineer 01/02/23 10/25/23 Eleazar Gleason MD [address] [place] [phone] [email or web address] PCP - General Rheumatology 10/26/23 08/14/24 Pcp, Unknown PCP - General 08/15/24 03/15/25 Pcp, Unknown PCP - General 03/16/25 documented as of this encounter Additional Source Comments The information contained in this document represents components of the legal health record. It is not the complete legal health record.[facility]
--- OUTSIDE RECORDS SUMMARY | 2025-04-08 16:17 | XMS_ITS | Encounter Summary ---
Author Organization [facility] Address [address] [facility] [address] [place] [address] Phone Care Team Providers Care Library Clerk Talking Books Name Role Phone June Rodriguez NP Primary Care Provider Meka Arevalo Primary Care Provider [phone] Eleazar Gleason MD Primary Care Provider + Pcp, Unknown Primary Care Provider Unavailabl e Pcp, Unknown Primary Care Provider Unavailabl e Encounter Details Date Type Department Care Team (Late st Contact Info) Description 09/26/2022 Procedure Pass [facility], Ct Scan - [address] [address] Social History Tobacco Use Types Packs/Day Years [...] 4:28 PM EDT Reena Garzon RN * [place] Suicide Severity Rating Scale (Screener/Recent Self-Report) Question [...] documented as of this encounter Care Teams Library Clerk Talking Books Relationship Specialty Start Date End Date June Rodriguez NP [address] [place] [phone] [email or web address] PCP - General Family Medicine 01/03/22 01/01/23 Meka Arevalo PA [address] [place] [phone] PCP - General Physician Production Tool Engineer 01/02/23 10/25/23 Eleazar Gleason MD [address] [place] [phone] (work) [email or web address] PCP - General Rheumatology 10/26/23 08/14/24 Pcp, Unknown PCP - General 08/15/24 03/15/25 Pcp, Unknown PCP - General 03/16/25 documented as of this encounter Additional Source Comments The information contained in this document represents components of the legal health record. It is not the complete legal health record.[facility]
--- OUTSIDE RECORDS SUMMARY | 2025-04-08 16:17 | XMS_ITS | Encounter Summary ---
Author Organization [facility] Address [address] [facility] [address] [place] [address] Phone Care Team Providers Care Geochemistry Teacher Name Role Phone June Rodriguez COUNCIL ON AGING DIRECTOR Primary Care Provider June Rodriguez COUNCIL ON AGING DIRECTOR Primary Care Provider Meka Arevalo Primary Care Provider [phone] Eleazar Gleason MD Primary Care Provider + Pcp, Unknown Primary Care Provider Unavailabl e Pcp, Unknown Primary Care Provider Unavailabl e Encounter Details Date Type Department Care Team (Late st Contact Info) Description 12/21/2017 Ancillary Orders [facility] [address] [place] [address] Luz Lezama MD, PhD [address] [place] [address] [email or web address] Pain Social History Tobacco Use Types Packs/Day Years [...] bilateral lower extremity deep venous thrombosis. POS [id number] Edited by: Eve Woods on 12/21/2017 9:41 [...] of bilateral lower extremitydeep venous thrombosis. POS [id number] Edited by: Eve Woods on 12/21/2017 9:41 AM us Luz Lezama MD, PhD CV US VASCULAR Fin al Result documented in this encounter Visit Diagnoses Diagnosis Pain Generalized pain Pain Generalized pain documented in this encounter [...] documented as of this encounter Care Teams Geochemistry Teacher Relationship Specialty Start Date End Date June Rodriguez NP [address] [place] [address] [email or web address] PCP - General Family Medicine 12/20/17 01/02/22 June Rodriguez NP [address] [place] [address] [email or web address] PCP - General Family Medicine 01/03/22 01/01/23 Meka Arevalo PA [address] [place] [phone] PCP - General Physician Transformation Coach 01/02/23 10/25/23 Eleazar Gleason MD [address] [place] [phone] [email or web address] PCP - General Rheumatology 10/26/23 08/14/24 Pcp, Unknown PCP - General 08/15/24 03/15/25 Pcp, Unknown PCP - General 03/16/25 documented as of this encounter Additional Source Comments The information contained in this document represents components of the legal health record. It is not the complete legal health record.[facility]
--- OUTSIDE RECORDS SUMMARY | 2025-04-08 16:17 | XMS_ITS | Encounter Summary ---
Author Organization [facility] Address [address] [place] [address] Care Team Providers Care Biomass Power Plant Superintendent Name Role Phone Unavailable Primary Care Provider [...]
--- OUTSIDE RECORDS SUMMARY | 2025-04-08 16:17 | XMS_ITS | Clinical Summary ---
Author Organization [facility] Address [address] [place] [address] Care Team Providers Care Customer Program Specialist Name Role Phone Wale Pimentel DENTAL CERAMIST Primary Care Provider [phone] Allergies Active Allergy Reactions Criticality Noted Date Comments Ciprofloxacin Other High 06/28/2021 Skin peeled off back Other reaction(s): OTHER, Rash Skin peeled off back Penicillins Rash High 12/20/2017 remote Sertraline 12/31/2022 Medications estradioL (ESTRACE) 0.01 % (0.1 mg/gram) vaginal creamIndication s:Post-menopaus al atrophic vaginitis Insert 2 g into the vagina 2 (two) times a week. 0.5 applicatorful as directed 2 times per week 42.5 g 11 025 Active albuterol HFA (PROAIR HFA ; PROVENTIL HFA ; VENTOLIN HFA) 90 mcg/actuation inhalerIndicati ons:Chronic respiratory failure with hypoxia (CMS/HCC V24, CMS/HCC V28) Inhale 2 puffs by mouth every 6 (six) hours if needed for wheezing or shortness of breath. 6.7 g 3 025 Active fluticasone-ume clidinium-vilan terol (Trelegy Ellipta) 100-62.5-25 mcg inhalerIndicati ons:Chronic respiratory failure with hypoxia (CMS/HCC V24, CMS/HCC V28) Inhale 1 puff (100 mcg total) by mouth 1 (one) time each day. Rinse mouth with water after use to reduce aftertaste and incidence of candidiasis. Do not swallow. 1 each 025 2025 Active apixaban (ELIQUIS) 5 mg tabletIndicatio ns:Sinus tachycardia Take 1 tablet (5 mg total) by mouth 2 (two) times a day. 56 each 025 2025 Active ferrous sulfate 325 mg (65 mg iron) EC tabletIndicatio ns:Iron deficiency Take 1 tablet (325 mg total) by mouth 1 (one) time each day with breakfast. Do not crush, chew, or split. 28 each 025 2025 Active atorvastatin (LIPITOR) 40 mg tabletIndicatio ns:Cerebrovascu lar accident (CVA), unspecified mechanism (CMS/HCC V24, CMS/HCC V28) Take 1 tablet (40 mg total) by mouth at bedtime. 28 each 025 2025 Active capsaicin (ZOSTRIX) 0.025 % creamIndication s:Chronic bilateral low back pain without sciatica Apply topically 4 (four) times a day if needed for mild pain. 60 g 025 2025 Active bumetanide (BUMEX) 2 mg tabletIndicatio ns:Congestive heart failure, unspecified HF chronicity, unspecified heart failure type (CMS/HCC V24, CMS/HCC V28) Take 1 tablet (2 mg total) by mouth 3 (three) times a week. Sunday, Sunday, Sunday. 12 each 025 2025 Active FLUoxetine (PROzac) 40 mg capsuleIndicati ons:Bipolar 1 disorder (CMS/HCC V24, CMS/HCC V28) Take 1 capsule (40 mg total) by mouth 1 (one) time each day. 28 capsule 025 2025 Active senna (Senna Lax) 8.6 mg tabletIndicatio ns:Chronic idiopathic constipation Take 2 tablets (17.2 mg total) by mouth 1 (one) time each day. 60 each 025 2025 Active famotidine (Pepcid) 40 mg tabletIndicatio ns:Dyspepsia Take 1 tablet (40 mg total) by mouth at bedtime. 28 each 025 2025 Active aspirin 81 mg chewable tabletIndicatio ns:Congestive heart failure, unspecified HF chronicity, unspecified heart failure type (CMS/HCC V24, CMS/HCC V28) Chew 1 tablet (81 mg total) at bedtime. 1 tab chewed in the mouth daily 28 each 025 2025 Active LORazepam (ATIVAN) 1 mg tabletIndicatio ns:Bipolar 1 disorder (CMS/HCC V24, CMS/HCC V28),Anxiety Take 1 tablet (1 mg total) by mouth every 8 (eight) hours. Max Daily Amount: 3 mg 84 each 025 2025 Active lidocaine 4 % patch Apply 1 patch topically 1 (one) time each day. 2024 Active metoprolol succinate (TOPROL-XL) 25 mg 24 hr tablet Take 1 tablet (25 mg total) by mouth 1 (one) time each day. Do not crush or chew. 30 each 2025 Active prazosin (MINIPRESS) 1 mg capsule Take 1 capsule (1 mg total) by mouth at bedtime for 7 doses. 7 each 025 2024 Active prazosin (MINIPRESS) 2 mg capsule Take 1 capsule (2 mg total) by mouth at bedtime for 2 doses. 2 each 025 2024 Active QUEtiapine (SeroqueL) 400 mg tablet Take 1 tablet (400 mg total) by mouth at bedtime. 30 each 025 2024 Active buPROPion XL (WELLBUTRIN XL) 150 mg 24 hr tablet Take 1 tablet (150 mg total) by mouth 1 (one) time each day in the morning for 3 doses. Do not crush, chew, or split. 3 each 2024 Active acetaminophen (TYLENOL) 500 mg tablet Take 2 tablets (1,000 mg total) by mouth every 8 (eight) hours for 10 days. 2024 Active docusate sodium (COLACE) 100 mg capsule Take 1 capsule (100 mg total) by mouth 2 (two) times a day for 10 days. 2024 Active polyethylene glycol (MIRALAX) 17 gram packet Take 17 g by mouth 1 (one) time each day for 3 days. 2024 Active cefpodoxime (VANTIN) 200 mg tablet Take 1 tablet (200 mg total) by mouth 2 (two) times a day for 7 days. 2024 Active pregabalin (LYRICA) 200 mg capsule Take 1 capsule (200 mg total) by mouth 2 (two) times a day. Max Daily Amount: 400 mg 2025 Active OXcarbazepine (TRILEPTAL) 300 mg tabletIndicatio ns:Conversion disorder with attacks or seizures,Bipola r 1 disorder (CMS/HCC V24, CMS/HCC V28) Take 2 tablets (600 mg total) by mouth 2 (two) times a day. 112 each 2024 Discontinued(S top Taking at Discharge) nicotine (NICODERM CQ) 21 mg/24 hrIndications:T obacco use disorder Place 1 patch on the skin 1 (one) time each day at the same time. 1 patch onto the skin every 24 hours, in a.m. 28 patch 5 2024 Discontinued(T herapy completed) metoprolol succinate (TOPROL-XL) 25 mg 24 hr tabletIndicatio ns:Sinus tachycardia Take 1 tablet (25 mg total) by mouth 1 (one) time each day. Do not crush or chew. 28 tablet 11 2024 Discontinued(S top Taking at Discharge) methenamine hippurate (HIPREX) 1 gram tabletIndicatio ns:Recurrent UTI Take 1 tablet (1 g total) by mouth 1 (one) time each day in the morning. 1 tab by mouth every morning 28 each 2024 Discontinued(S top Taking at Discharge) lidocaine (Aspercreme, lidocaine,) 4 % patchIndication s:Fibromyalgia Apply 1 patch topically 1 (one) time each day. 28 each 2024 Discontinued(S top Taking at Discharge) QUEtiapine (SeroqueL) 400 mg tabletIndicatio ns:Bipolar 1 disorder (CMS/HCC V24, CMS/HCC V28) Take 1 tablet (400 mg total) by mouth at bedtime. Center ( [place]) 28 each 2024 Discontinued(S top Taking at Discharge) potassium chloride (MICRO-K) 10 mEq CR capsuleIndicati ons:Hypertensiv e heart disease with congestive heart failure, unspecified heart failure type (CMS/HCC V24, CMS/HCC V28) Take 1 capsule (10 mEq total) by mouth 2 (two) times a day. 28 each 2024 Discontinued(S top Taking at Discharge) bisacodyL (DULCOLAX) 5 mg EC tabletIndicatio ns:Screening for colon cancer Take 2 tablets by mouth right before beginning bowel prep. See instructions provided by the office 2 tablet 2024 Discontinued(P rescriber Discontinued) polyethylene glycol (Golytely) 236-22.74-6.74 -5.86 gram solutionIndicat ions:Screening for colon cancer Take 4L by mouth once for one dose. May substitue any PEG. Starting at 6PM the night before your procedure drink 1 8oz glasses at your own pace until you complete half of the gallon. Finish 2nd half of the gallon 5 hours before your procedure. 4000 mL 2024 Discontinued(P rescriber Discontinued) prazosin (MINIPRESS) 1 mg capsuleIndicati ons:Post-trauma tic stress disorder, acute Take 3 capsules (3 mg total) by mouth at bedtime. 84 each 025 2024 Discontinued(S top Taking at Discharge) hydrOXYzine HCL (ATARAX) 25 mg tabletIndicatio ns:Anxiety Take 1 tablet (25 mg total) by mouth 2 (two) times a day. 56 each 11 025 2024 Discontinued(R eorder) sodium,potassiu m,mag sulfates (Suprep Bowel Prep Kit) 17.5-3.13-1.6 gram recon soln bowel prep kit oral solution Take 177ML by mouth for 2 doses. SEE INSTRUCTIONS PROVIDED BY OFFICE. 1 kit 025 2024 Discontinued(S top Taking at Discharge) buPROPion XL (WELLBUTRIN XL) 300 mg 24 hr tabletIndicatio ns:Bipolar 1 disorder (CMS/HCC V24, CMS/HCC V28) Take 1 tablet (300 mg total) by mouth 1 (one) time each day in the morning. Do not crush, chew, or split. 30 each 5 2024 Discontinued(S top Taking at Discharge) buPROPion XL (WELLBUTRIN XL) 150 mg 24 hr tabletIndicatio ns:Bipolar 1 disorder (CMS/HCC V24, CMS/HCC V28) Take 1 tablet (150 mg total) by mouth 1 (one) time each day in the morning. Do not crush, chew, or split. To total 450 mg daily. 30 each 5 025 2024 Discontinued(S top Taking at Discharge) FLUoxetine (PROzac) 10 mg capsuleIndicati ons:Bipolar 1 disorder (CMS/HCC V24, CMS/HCC V28) Take 1 capsule (10 mg total) by mouth 1 (one) time each day. To total 50 mg daily 30 each 1 2024 Discontinued(P rescriber Discontinued) ipratropium-alb uteroL (DUONEB) 0.5-2.5 mg/3 mL nebulizer solutionIndicat ions:Chronic obstructive pulmonary disease, unspecified COPD type (CMS/HCC V24, CMS/HCC V28) Take 3 mL by nebulization 3 (three) times a day if needed for wheezing. 60 mL 3 025 2024 Discontinued(S top Taking at Discharge) gabapentin (NEURONTIN) 800 mg tabletIndicatio ns:neuropathic pain Take 1 tablet (800 mg total) by mouth every 8 (eight) hours. 3 TIMES DAILY 84 each 025 2024 Discontinued(P rescriber Discontinued) traZODone (DESYREL) 50 mg tabletIndicatio ns:I need 11 refills. This is a re-order for a script that did not go through yesterday, for [place]. Please have these mailed to the Center by tomorrow. Attn: Carole Aquino LPN Take 0.5 tablets (25 mg total) by mouth every 8 (eight) hours. 42 each 025 2024 Discontinued(S top Taking at Discharge) traMADoL (ULTRAM) 50 mg tabletIndicatio ns:Costochondri tis Take 1 tablet (50 mg total) by mouth 2 (two) times a day for 14 days. Max Daily Amount: 100 mg 28 tablet 025 2024 hydrOXYzine HCL (ATARAX) 25 mg tabletIndicatio ns:Anxiety Take 1 tablet (25 mg total) by mouth 3 (three) times a day. 56 each 025 2024 Discontinued(S top Taking at Discharge) ketorolac 30 mg/mL injectionIndica tions:Other chest pain Inject 1 mL (30 mg total) into the shoulder, thigh, or buttocks 1 (one) time for 1 dose. 1 mL 025 2024 Discontinued(S top Taking at Discharge) pregabalin (Lyrica) 200 mg capsuleIndicati ons:Other chest pain,Fibromyalg ia Take 1 capsule (200 mg total) by mouth 2 (two) times a day. Max Daily Amount: 400 mg 56 each 1 025 2024 Discontinued(S top Taking at Discharge) pregabalin (Lyrica) 200 mg capsule Take 1 capsule (200 mg total) by mouth 2 (two) times a day. Max Daily Amount: 400 mg 025 2024 Discontinued(S top Taking at Discharge) acetaminophen (TYLENOL) 500 mg tablet Take 2 tablets (1,000 mg total) by mouth every 8 (eight) hours for 10 days. 30 tablet 025 2024 Discontinued docusate sodium (COLACE) 100 mg capsule Take 1 capsule (100 mg total) by mouth 2 (two) times a day for 10 days. 20 each 025 2024 Discontinued polyethylene glycol (MIRALAX) 17 gram packet Take 17 g by mouth 1 (one) time each day for 3 days. 51 g 2024 Discontinued cefpodoxime (VANTIN) 200 mg tablet Take 1 tablet (200 mg total) by mouth 2 (two) times a day for 7 days. 025 2024 Discontinued Hospital, Clinic, or Other Facility Administered Medication Ordered Dose Route Frequency Start Date End Date Status ketorolac (TORADOL) injection 30 mgIndications:Other chest pain,Fibromyalgia 30 mg IM Once 03/25/2025 03/25/2025 Ended Active Problems Problem Noted Date Diagnosed Date Physical deconditioning 04/06/2025 Costochondritis 11/21/2024 Assessment & Plan (03/13/2025 10:50 AM EDT): Persistent persistent pain. Prescribed tramadol x 2 weeks. Assessment & Plan (11/21/2024 3:19 PM EDT): Encouraged use of Incentive spirometry 10 times each, 3 times a day. PAR verbalizes understanding. Prescribe tramadol for 7 days. Not a good candidate for NSAIDS has she is on chronic anticoagulation. Other chest pain 10/20/2024 Assessment & Plan (03/26/2025 9:52 AM EDT): Pain is unchanged. Repeat rib x-ray showed scarring, no acute fracture. Pain reproducible on palpable and with inspiration. No improvement with use of Incentive spirometry. Will have nurse administer IM Toradol. Suspect that pain could be secondary to fibromyalgia. Switching gabapentin to pregabalin and reevaluate. Assessment & Plan (03/13/2025 10:37 AM EDT): Chronic condition. Differential diagnosis: Costochondritis, secondary to Fibromyalgia. Reproducible on palpation. EKGs done recently show no ST changes ST changes. Continue to manage pain. Assessment & Plan (02/09/2025 12:29 PM EDT): Most likely musculoskeletal pain also differential include GERD, costochondritis. Toradol 30 mg IM x 1 dose given. PAR tolerated well. Assessment & Plan (01/13/2025 8:52 AM EDT): Atypical chest pain, most likely musculoskeletal pain. Tramadol for 5 days. Recent fall leading to contusion. Assessment & Plan (11/21/2024 3:20 PM EDT): >>ASSESSMENT AND PLAN FOR ANTERIOR CHEST WALL PAIN WRITTEN ON 10/20/2024 11:54 AM BY NEELAM LEVINE MD L sided chest and breast pain, with some pain of L upper back. Orders: XR Ribs w Chest 3+ Views Left ketorolac 30 mg/mL injection; Inject 1 mL (30 mg total) into the shoulder, thigh, or buttocks 1 (one) time for 1 dose. dexAMETHasone (DECADRON) injection 10 mg HYDROcodone-acetaminophen (NORCO) 5-325 mg per tablet; Take 1 tablet by mouth 4 (four) times a day for 7 days. Max Daily Amount: 4 tablets Assessment & Plan (11/21/2024 3:17 PM EDT): Most likely due to costochondritis. Recent rib fracture now 4 weeks old pain should not be related to this. Due to history of DVT/PE and being off Eliquis for 1 week will obtain lab for D-Dimer. Mild dementia with mood dist urbance, unspecified dementia type ([facility] V24, [facility] V28) 09/27/2024 Assessment & Plan (03/13/2025 10:37 AM EDT): Chronic condition; stable. Continue to monitor for signs and symptoms of decline. Assessment & Plan (09/27/2024 6:42 PM EDT): Chronic condition; stable. Continue to monitor for progression. Continue to treat mood disorder. History of DVT (deep vein thrombosis) 09/27/2024 Assessment & Plan (03/13/2025 10:53 AM EDT): Chronic condition; stable. Continue current anticoagulant Agrylin therapy. Assessment & Plan (09/27/2024 7:33 PM EDT): Chronic condition; continue oral anticoagulant. Encounter for medication management 09/04/20242023 Assessment & [...] incontinence, stress female 07/30/2024 Assessment & Plan (03/13/2025 10:45 AM EDT): Chronic condition; stable. Continue supportive measures. Assessment & Plan (09/27/2024 7:05 PM EDT): Chronic condition; stable. Continue use of DME products. Tendonitis of left rotator cuff 07/30/2024 Assessment & Plan (03/13/2025 10:47 AM EDT): Patient is labile reports shoulder pain. Underwent physical therapy with little improvement. Assessment & Plan (09/27/2024 7:08 PM EDT): Chronic condition; continues to have limited ROM and pain of left shoulder. Does not use shoulder much. Has undergone PT in the past. Encouraged mild stretching exercises. Type 2 diabetes mellitus wit h hypoglycemia (CMS/HCC V24, CMS/HCC V28) 07/30/2024 Assessment & Plan (03/26/2025 9:47 AM EDT): Recheck HgbA1c. Currently not on diabetic medication. Diet controlled diabetes. Assessment & Plan (03/13/2025 10:50 AM EDT): Chronic condition; off diabetic medication. Monitor hemoglobin A1c. Assessment & Plan (10/07/2024 3:43 PM EDT): [...] Bilateral Feet & Ankles Assessment & Plan (03/13/2025 10:49 AM EDT): Chronic condition; stable. Continue to manage pain as indicated. Assessment & Plan (09/27/2024 7:09 PM EDT): >>ASSESSMENT AND PLAN FOR OSTEOARTHRITIS OF ANKLES, BILATERAL WRITTEN ON 09/12/2024 8:30 PM BY NEELAM LEVINE MD This is a chronic condition [...] support. Hematuria, microscopic 07/30/2024 Assessment & Plan (03/13/2025 10:45 AM EDT): Chronic condition. Urine cytology negative for malignancy. Refer to urologist. Assessment & Plan (11/21/2024 3:32 PM EDT): Previous urine cytology negative for for malignancy. Still with recurrent reports of gross hematuria. PAR a smoker. Referring to urology for further work up. Assessment & Plan (09/27/2024 7:06 PM EDT): Chronic condition; stable. Urine cytology previosuly done was negative for malignant cells. Most likely due to oral anticoagulant use. Pain in back 07/30/2024 Assessment & Plan (03/13/2025 10:35 AM EDT): Chronic condition; most likely secondary to fibromyalgia. Continue gabapentin for now. Consider switching to Lyrica in the near future. Assessment & Plan (09/27/2024 6:41 PM EDT): Most likely musculoskeletal pain. Encourage stretching exercises. Continues use of APAP as needed. Plantar fascial fibromatosis 07/30/2024 Assessment & Plan (03/13/2025 10:47 AM EDT): Chronic condition; stable. Continue to monitor and treat as needed. Assessment & Plan (09/27/2024 7:10 PM EDT): Chronic condition; stable. Intermittent pain. Treat as needed. DDD (degenerative disc disease), cervical 2024 Assessment & Plan (03/13/2025 10:50 AM EDT): Chronic condition; intermittent pain. Continue to monitor and treat as needed. Assessment & Plan (09/27/2024 7:11 PM EDT): Chronic condition; labile. Continues with intermittent pain. Continue APAP as prescribed. Encourage PAR to resume stretching exercises. Multiple nodules of lung 07/30/2024 Assessment & Plan (03/13/2025 10:40 AM EDT): Chronic condition; continue to monitor with CT chest. Assessment & Plan (09/27/2024 6:47 PM EDT): Chronic condition; continue to monitor with year CT chest. Encourage smoking cessation. Blood in stool 07/30/2024 Assessment & Plan (03/13/2025 10:54 AM EDT): Participant reports recurrent blood in stool. Had a colonoscopy with poor prep. Rescheduled for repeat colonoscopy participant wants to defer this for later date. Will notify examiner of currency as participant has a follow-up with gastroenterology tomorrow. Assessment & Plan (10/08/2024 1:46 PM EDT): Refer again to gastroenterology. Possible need for upper endoscopy and colonoscopy. Assessment & Plan (09/27/2024 7:25 PM EDT): May be related to oral anticoagulation. Referral to GI made for possible colonoscopy. May have missed appt in Ocotober 2023. Will attempt to obtain progress note; if appt missed, will make another referral. Dysphagia 07/30/2024 Assessment & Plan (03/13/2025 10:44 AM EDT): Condition; stable. Seems to have improved. Continue to monitor. Assessment & Plan (09/27/2024 7:02 PM EDT): Chronic condition; stable. No acute concerns at this time. Previously seen by speech therapy. Post-traumatic stress disorder, acute 07/30/2024 Assessment & Plan (03/13/2025 10:53 AM EDT): Chronic condition; continue with therapy sessions. Continue current medication. Assessment & Plan (01/13/2025 8:51 AM EDT): Dose of prazosin recently increased. PAR reports sleeping better. Monitor. Recommend following up with therapy. Assessment & Plan (09/27/2024 7:27 PM EDT): [...] Iron deficiency anemia 07/30/2024 Assessment & Plan (03/13/2025 10:52 AM EDT): Chronic condition; stable. Continue iron replacement therapy. Monitor CBC. Assessment & Plan (09/27/2024 7:13 PM EDT): [...] IBARRA Nodule, Right Breast Assessment & Plan (03/13/2025 10:58 AM EDT): Recent mammogram done November 2024 showed stable inflammatory node. Recommendation to follow-up mammogram in 1 year. Assessment & Plan (09/27/2024 7:31 PM EDT): Chronic condition; plan to for repeat u/s of right breast. Place new order. Other specified disorders of bone density and structure, multiple sites 07/30/2024 Overview (07/30/2024): DEXA: Z13.820, M85.89 Assessment & Plan (03/13/2025 10:49 AM EDT): Chronic condition; continue to monitor vitamin D level. Encouraged weightbearing exercises. Assessment & Plan (09/27/2024 7:12 PM EDT): Chronic condition; goal to maintain Vitamin D level > 30. Encourage weight bearing exercises. Paroxysmal atrial fibrillation (CMS/HCC V24, CMS /HCC V28) 01/29/2024 Assessment & Plan (03/13/2025 10:48 AM EDT): Chronic condition; stable. Continue metoprolol supinate as prescribed for rate control. Continue coag therapy. Continue to monitor. Assessment & Plan (09/27/2024 6:49 PM EDT): Chronic condition; stable. Continue beta donna and oral anticoagulant. Monitor for s/s of acute bleeding. Assessment & Plan (09/27/2024 6:50 PM EDT): >>ASSESSMENT AND PLAN FOR PAROXYSMAL ATRIAL FIBRILLATION (CMS/HCC) WRITTEN ON 09/12/2024 8:30 PM BY NEELAM LEVINE MD Patient is currently asymptomatic and stable. She is anticoagulated and rate controlled. Continue current management. Monitor and change treatment as appropriate. >>ASSESSMENT AND PLAN FOR SINUS TACHYCARDIA WRITTEN ON 09/12/2024 8:30 PM BY NEELAM LEVINE MD This condition is part of [...] 28 days. Do not crush or chew. Chronic diastolic congestive heart failure ([facility] V24, [facility] V28) 01/29/2024 Overview (09/27/2024): CHF, Chronic Diastolic >>OVERVIEW FOR HYPERTENSIVE HEART DISEASE WITH CONGESTIVE HEART FAILURE ([facility]) WRITTEN ON 07/30/2024 3:40 PM BY DAMIEN IBARRA Hypertension with CHF Assessment & Plan (03/13/2025 10:42 AM EDT): Chronic condition; stable. Euvolemic. Continue bumetanide 3 times a week. Assessment & Plan (01/13/2025 8:48 AM EDT): Reduce dosing of Bumex to 3 times a week. Monitor edema. Assessment & Plan (09/27/2024 6:52 PM EDT): Chronic condition; stable. Euvolemic. Admits to non compliance with diuretic. Educated on the importance of medication compliance. Monitor. Assessment & Plan (09/27/2024 6:53 PM EDT): >>ASSESSMENT AND PLAN FOR CONGESTIVE HEART FAILURE ([facility]) WRITTEN ON 09/12/2024 8:30 PM BY NEELAM LEVINE MD Patient is currently asymptomatic and [...] HYPERTENSIVE HEART DISEASE WITH CONGESTIVE HEART FAILURE ([facility]) WRITTEN ON 09/12/2024 8:30 PM BY NEELAM LEVINE MD Patient is currently asymptomatic and [...] metoprolol with holding parameters. Assessment & Plan (03/26/2025 9:46 AM EDT): Chronic condition; stable. Blood pressure at goal. Continue current medication. Assessment & Plan (03/13/2025 10:42 AM EDT): Chronic condition; stable. Blood pressure is at goal. Continue current medication. Assessment & Plan (09/27/2024 6:48 PM EDT): Chronic condition; stable. BP at goal. Continue daily metoprolol. Hyperlipidemia 01/29/2024 Overview (04/17/2024): Last Assessment & Plan: Continue atorvastatin. Assessment & Plan (03/13/2025 10:51 AM EDT): Chronic condition; continue statin therapy. Monitor yearly lipid panel. Assessment & Plan (10/07/2024 3:44 PM EDT): [...] Overview (07/30/2024): Obesity, Severe Assessment & Plan (03/13/2025 10:42 AM EDT): Chronic condition; stable. Encouraged against weight gain. Assessment & Plan (09/27/2024 6:53 PM EDT): Chronic condition; weight improving. BMI down to 39. Continue to monitor. Edentulous 01/29/2024 Assessment & Plan (03/13/2025 10:44 AM EDT): Chronic condition: Stable. Denies any acute concerns with chewing. She has dentures done. Assessment & Plan (09/27/2024 6:54 PM EDT): Does not own dentures. Denies any acute problems chewing or swallowing. Constipation 01/29/2024 Assessment & Plan (03/13/2025 10:44 AM EDT): Chronic condition; prescribed lactulose in the recent past but she never used medication. Continues to suffer from the same degree of constipation. Encouraged to trial lactulose. Continue senna daily. Assessment & Plan (01/13/2025 8:58 AM EDT): Reviewed CT abdomen results with PAR. PAR admits having a BM every 6 days. Advised that regulating bowels could alleviated left flank pain as well as abdominal pain. Lactulose given to PAR to take x 2 days. Start on Senna nightly. Assessment & Plan (09/27/2024 6:55 PM EDT): Chronic condition; no current concerns. Monitor and treat as needed. Recurrent UTI 01/29/2024 Assessment & Plan (03/13/2025 10:45 AM EDT): Chronic condition; has not had a recent UTI. Continue prophylactic antibiotic. Assessment & Plan (09/27/2024 7:04 PM EDT): Currently with UTI symptoms. Was started on empiric antibiotic last week, but still with dysuria. PAR needs U/a and urine culture. Being send [facility] for suicidal ideation. Assessment & Plan (09/12/2024 8:30 PM EDT): Patient is currently asymptomatic and stable. Continue current management. Monitor and treat as appropriate. Orders: methenamine hippurate (HIPREX) 1 gram tablet; Take 1 tablet (1 g total) by mouth 1 (one) time each day in the morning for 28 days. 1 tab by mouth every morning Atrophic vaginitis 01/29/2024 Assessment & Plan (03/13/2025 10:46 AM EDT): Chronic condition; stable. Continue estrogen cream. Assessment & Plan (09/27/2024 7:04 PM EDT): Chronic condition; continue use of estrace cream as prescribed. Migraine 01/29/2024 Assessment & Plan (03/13/2025 10:37 AM EDT): Chronic condition; stable. Continue to monitor and treat as needed. Assessment & Plan (09/27/2024 6:37 PM EDT): Chronic condition; stable. Continue to monitor and treat as needed. Assessment & Plan (09/04/2024 3:45 PM EDT): Requested 'the shots' which worked for her about 6 weeks ago. Bipolar 1 disorder ([facility] V24, [facility] V28) Overview (04/17/2024): Last Assessment & Plan: Continue home medication. Assessment & Plan (03/25/2025 3:30 PM EDT): Depression seems to be slowly improving. Continue current medications. Encourage PAR to keep therapy appointments. Follow up with psychiatry as indicated. Assessment & Plan (03/13/2025 10:55 AM EDT): Chronic condition; labile. Recently hospitalized for suicidal ideation. Medications have been adjusted as per psychiatry recommendations. Continue to monitor closely. Has follow-up with psychiatry coming up soon. Continue with therapy sessions as directed. Assessment & Plan (02/26/2025 4:12 PM EDT): Medications reviewed from discharge paper work. Bupropion increased to 450 mg daily and Fluoxetine to 50 mg daily. Continuing other medications. Follow up with phychiatry as indicated. Assessment & Plan (02/09/2025 12:31 PM EDT): Recent increase in dose of fluoxetine. Depression seems unchanged. Assessment & Plan (01/13/2025 8:45 AM EDT): Chronic condition, moderately severe depression. PHQ score of 18. Increase dose of Fluoxetine. Highly encouraged following up with therapy. Needs to learn new coping skills. Follow up. Assessment & Plan (10/29/2024 1:06 PM EDT): She is on a cocktail of medications from psychiatry. No changes now, since we dont want her to have a relapse. Assessment & Plan (10/08/2024 1:47 PM EDT): Chronic condition. Continue current medications. Continue intensive outpatient program on Sunday. Follow-up with psychiatry as well. Assessment & Plan (09/27/2024 7:15 PM EDT): Chronic condition; unstable. Very depressed with sucidial ideation. May need meds adjusted. EMS called [place] [facility] Assessment & Plan (09/04/2024 3:45 PM EDT): [...] 28 days. Anxiety 01/29/2024 Assessment & Plan (03/25/2025 3:32 PM EDT): Continue Lorazepam at current dose at 3 times a day. Increase Hydroxyzine to 3 times daily. Assessment & Plan (03/13/2025 10:56 AM EDT): Chronic condition; labile. Continue on lorazepam and hydroxyzine as prescribed. Follow-up with psychiatry as indicated. Assessment & Plan (09/27/2024 7:16 PM EDT): [...] 3 mg Fibromyalgia 01/29/2024 Assessment & Plan (03/25/2025 3:33 PM EDT): Chronic condition; not well controlled on 2400 mg /day of gabapentin. Will switch over to pregabalin 200 mg twice a day. Assessment & Plan (03/13/2025 10:39 AM EDT): Chronic condition; labile. Currently on gabapentin. Consider switching to Lyrica. Assessment & Plan (09/27/2024 6:38 PM EDT): [...] of right hand 01/29/2024 Assessment & Plan (03/13/2025 10:49 AM EDT): Chronic condition; stable. Continue to monitor for progression. Assessment & Plan (09/27/2024 7:07 PM EDT): Chronic condition; stable. Unchanged. Continue to monitor for progression and refer to hand specialist when indicated. Trigger finger 01/29/2024 Overview (07/30/2024): Trigger Finger/Flexor Tendonitis, Third Digit, Right Hand Assessment & Plan (03/13/2025 10:46 AM EDT): Chronic condition; stable. Refer to orthopedic surgeon if condition worsens. Assessment & Plan (09/27/2024 7:07 PM EDT): Chronic condition; intermittently bothersome. Not of much concern at this time. Monitor and treat as needed. Hearing loss 01/29/2024 Assessment & Plan (03/13/2025 10:37 AM EDT): Chronic condition; affecting bilateral ears. 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 Make referral to superintendent [employer] mixing [employer] for recommendation of hearing aids. Assessment & Plan (09/27/2024 6:38 PM EDT): PAR with chronic condition; needs follow up with audiology. Needs to have cerumen removed from right ear. Chronic respiratory failure with hypoxia (CMS/HCC V24, CMS/HCC V28) 01/29/2024 Assessment & Plan (03/13/2025 10:40 AM EDT): Chronic condition; stable. Patient on continuous oxygen supplementation. Unfortunately continues to smoke. Continue to encourage smoking cessation. Assessment & Plan (09/27/2024 6:46 PM EDT): Chronic condition; stable. Continue on O2 at 3 l/min via NC. Monitor. Suicidal ideation 01/29/2024 Assessment & Plan (03/13/2025 10:53 AM EDT): Chronic condition; denies any current suicidal ideation. Recently hospitalized for this. Medications have been adjusted psychiatry recommendation. Continue to encourage participant to follow-up with therapy sessions. Assessment & Plan (02/09/2025 1:20 PM EDT): PAR with bipolar depression current in a severe depressive state. Actively thinking about a plan to commit suicidal. Reached out to who has contacted [facility] crisis. Assessment & Plan (09/27/2024 7:17 PM EDT): Having active toughts and plan. EMS called and PAR taken [place] [facility]. Assessment & Plan (09/04/2024 3:45 PM EDT): None present currently; will be increasing seroquel dose if needed. 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 No recent episodes. Continue current medication. Assessment & Plan (09/27/2024 6:39 PM EDT): [...] without esophagi tis 01/29/2024 Assessment & Plan (03/13/2025 10:43 AM EDT): Chronic condition; stable. Continue to avoid trigger foods. Continue H2 donna as prescribed. Assessment & Plan (02/09/2025 12:39 PM EDT): PAR with current symptoms. Will start on H2 donna. Assessment & Plan (09/27/2024 7:36 PM EDT): >>ASSESSMENT AND PLAN FOR SCHATZKI'S RING WRITTEN ON 09/27/2024 6:58 PM BY WALE PIMENTEL NP Chronic condition; stable. Avoid trigger foods. Vocal cord dysfunction 10/28/2023 Assessment & Plan (03/13/2025 10:39 AM EDT): Chronic condition; stable. Was referred to speech therapist last year. Assessment & Plan (09/27/2024 6:46 PM EDT): Chronic condition; improved. Referred in the past to speech therapy. Complex regional pain syndrome I 02/05/2023 Overview (04/17/2024): Last Assessment & Plan: Per Ortho: CRPS, Trigger secondary to MCP hyperextension RT On Prednisone 20 mg daily x 30 days until 02/10 Assessment & Plan (03/13/2025 10:39 AM EDT): Chronic condition; stable. Continue gabapentin for now. Assessment & Plan (09/27/2024 6:43 PM EDT): [...] [facility] [place] & Plan (03/13/2025 10:54 AM EDT): Chronic condition; stable. Continue use of rollator with ambulation. Continue fall precautions. Assessment & Plan (09/27/2024 7:16 PM EDT): [...] replacement modalities and Chantix. Assessment & Plan (03/13/2025 10:52 AM EDT): Chronic condition; encouraged smoking cessation. Not using nicotine patches. Assessment & Plan (09/27/2024 7:14 PM EDT): [...] sleep apnea) 06/28/2021 Overview (04/17/2024): Followed at [facility] sleep program. Last Assessment & Plan: Congratulated on ongoing compliance Assessment & Plan (03/13/2025 10:40 AM EDT): Chronic condition; stable. Continue use of CPAP at night. Assessment & Plan (09/27/2024 6:44 PM EDT): Chronic condition; stable. Continue to encourage use of CPAP. Chronic obstructive pulmonar y disease ([facility] V24, [facility] V28) 12/17/2018 Overview (04/17/2024): PFT 08/05/2021: FEV1 1.56 L or 63% predicted Last Assessment & Plan: Continue the inhalers. Smoking cessation encouraged Nicotine patch as well as nicotine gum. Assessment & Plan (03/13/2025 10:41 AM EDT): Chronic condition; continue current medications. Continue supplemental oxygen. Encouraged smoking cessation. Assessment & Plan (10/20/2024 11:54 AM EDT): Currently sat'g appropriately (93%) for COPD, on 3L/min. -will ask Gwendolyn to get Xrays scheduled, and Horace to help with transportation. -F/U with me in 3 days. Thanks Team. Assessment & Plan (09/27/2024 6:45 PM EDT): Chronic condition; stable. Continues to smoke. Wants to quit on her own. Unclear if still using Nicotine patches. Resolved Problems Problem Noted Date Diagnosed Date Resolved Date Pneumonia of right lower lob e due to infectious organism 11/21/2024 02/26/2025 Assessment & Plan (11/21/2024 3:35 PM EDT): Positive chest x-ray. PAR with low grade temperature. Crackles heard in RLL. Start on oral Doxycycline for 10 days. Obtain CBC. Fall on same level from stumbling 10/20/2024 03/13/2025 Assessment & Plan (10/20/2024 11:54 AM EDT): She went for outpatient mental health counseling, but fell, and came to clinic today. Will ask social service to call the clinic and ask when the patient can return: per patient, a nurse said she 'didn't need to come back', after she fell. This patient absolutely needs outpatient mental health therapy. Orders: XR Ribs w Chest 3+ Views Left ketorolac 30 mg/mL injection; Inject 1 mL (30 mg total) into the shoulder, thigh, or buttocks 1 (one) time for 1 dose. dexAMETHasone (DECADRON) injection 10 mg HYDROcodone-acetaminophen (NORCO) 5-325 mg per tablet; Take 1 tablet by mouth 4 (four) times a day for 7 days. Max Daily Amount: 4 tablets Dysuria 10/08/2024 01/13/2025 Assessment & Plan (10/08/2024 1:54 PM EDT): Collect urine and send for urinalysis and culture. Participant finished antibiotic for UTI that ended last week. Starting Pyridium for symptoms. Impacted cerumen of right ear 09/27/2024 03/13/2025 Assessment & Plan (03/13/2025 10:37 AM EDT): Chronic condition; Assessment & Plan (09/27/2024 6:44 PM EDT): PAR will need to have this addressed in the near future. Being sent out today via EMS for suicidal ideation. Oral lesion 07/30/2024 03/13/2025 Assessment & Plan (09/27/2024 7:02 PM EDT): PAR recently seen by dentist. Plan to to either return to dentist for removal of lesion or be referred to a Oral surgeon. Assessment & Plan (09/04/2024 3:45 PM EDT): No lesion palpated except normal size sublingual lymphatic tissue, left of lingual frenulum. Lower gum: edentulous. No cervical LAD. Smokes cigarettes 07/30/2024 09/27/2024 Overview (07/30/2024): Smoker, Cigarettes, Current Abdominal pain 07/30/2024 09/27/2024 Leukocytosis (leucocytosis) 01/29/2024 03/13/2025 Assessment & Plan (09/27/2024 7:13 PM EDT): Chronic condition; stable. Continue to monitor. Incontinent of urine 01/29/2024 04/ 025 COPD with acute exacerbation ([facility] V24, [facility] V28) 05/04/2021 09/27/2024 Overview (04/17/2024): Last Assessment [...] Encounters Date Type Department Care Team Description 04/08/2025 PACE Admissions [facility] [address] [place] [phone] Jennifer Pacheco, RN 04/08/2025 Lab Requisition [facility] - Main Lab [address] [place] [phone] Ailyn Justice NP Essential (primary) hypertension 04/07/2025 PACE Extended Care [facility] [address] [place] [phone] Jennifer Pacheco, RN Physical deconditioning (Primary Dx) 04/06/2025 11:00 AM EDT Hospital Encounter [facility] CT Scan [address] [place] [phone] 04/01/2025 1:15 PM EDT Treatment [facility] Physical Therapy [address] [place] [phone] Arnav Thomas, PT 03/31/2025 9:43 PM EDT - 04/07/2025 4:38 PM EDT Hospital Encounter [facility] Medical Surgical Unit [address] [place] [phone] Evelia Mays MD Fainsod, Joshua, MD Zaidi, MD Jamison March Jasmine, DO Killelea, Alison G, MD Landry, MD Cheikh Rivera Bannet, MD Grabowski, Walter, MD Bukalo, Nermina, MD Shah, Princy, MD Fall, initial encounter (Primary Dx); Closed head injury, initial encounter; Neck pain; Acute midline thoracic back pain; Polypharmacy Discharge Disposition: Shelter Facility 03/31/2025 3:00 PM EDT [facility] [address] [place] [phone] Lesa Vaughan 03/31/2025 PACE Admissions [address] [phone] Jennifer Pacheco, LOUISE Fall, initial encounter (Primary Dx) 03/31/2025 PACE Admissions [address] [phone] Jennifer Pacheco, RN Recurrent falls (Primary Dx); Weakness; Urinary tract infection without hematuria, site unspecified 03/30/2025 [facility] [address] [place] [phone] Jesi Larkin PCA 03/27/2025 1:00 PM EDT Clinical Support [address] [phone] Sandy Keith, LOUISE 03/27/2025 10:30 AM EDT [facility] [address] [place] [phone] Jhoana Grijalva 03/27/2025 9:05 AM EDT PACE Home Care / [facility] Home Visit [facility] [address] [place] [phone] Jhoana Grijalva 03/26/2025 1:00 PM EDT Clinical Support [facility] [address] [place] [phone] Sandy Keith RN 03/25/2025 1:00 PM EDT Treatment [facility] Physical Therapy [address] [place] [phone] Arnav Thomas, PT 03/25/2025 11:00 AM EDT Office Visit [facility] [place] [facility] [address] [place] [phone] Wale Pimentel, TAYA Fibromyalgia (Primary Dx); Anxiety; Weight loss; Primary hypertension; Type 2 diabetes mellitus with hypoglycemia without coma, without long-term current use of insulin (CMS/HCC V24, CMS/HCC V28); Other chest pain; Bipolar 1 disorder (CMS/HCC V24, CMS/HCC V28) 03/25/2025 7:30 AM EDT PACE Home Care / PACE Home Visit [facility] [address] [place] [phone] Jhoana Grijalva 03/24/2025 12:35 PM EDT PACE Home Care / PACE Home Visit [facility] [place] [facility] [address] [place] [phone] Jeannine Guzman 03/24/2025 9:30 AM EDT PACE Home Care / PACE Home Visit [facility] [place] [facility] [address] [place] [phone] Jhoana Grijalva 03/23/2025 8:00 AM EDT PACE Home Care / PACE Home Visit [facility] [place] [facility] [address] [place] [phone] Jhoana Grijalva 03/22/2025 8:00 AM EDT PACE Home Care / [facility] Home Visit [facility] [address] [place] [phone] Jhoana Grijalva 03/21/2025 7:00 AM EDT PACE Home Care / P[facility] Home Visit [facility] [place] [facility] [address] [place] [phone] Jhoana Grijalva 03/20/2025 9:30 AM EDT PACE Home Care / [facility] Home Visit [facility] [place] [facility] [address] [place] [phone] Jhoana Grijalva 03/20/2025 Plan of Care Documentation [facility] [place] [facility] [address] [place] [phone] 03/17/2025 7:15 AM EDT PACE Home Care / [facility] Home Visit [facility] [place] [facility] [address] [place] [phone] Juanito Wasserman 03/17/2025 [place] [place] [facility] [address] [place] [phone] Jennifer Pacheco, LOUISE 03/17/2025 [facility] [facility] [place] [facility] [address] [place] [phone] Jennifer Pacheco, RN Fall, initial encounter (Primary Dx) 03/16/2025 9:30 AM EDT PACE Home Care / [facility] Home Visit [facility] [address] [place] [phone] Jhoana Grijalva 03/14/2025 7:00 AM EDT PACE Home Care / [facility] Home Visit [facility] [place] [facility] [address] [place] [phone] Jeannine Guzman 03/11/2025 9:30 AM EDT PACE Home Care / [facility] Home Visit [facility] [place] [facility] [address] [place] [phone] Lesa Vaughan 03/09/2025 7:30 AM EDT PACE Home Care / P[facility] Home Visit [facility] [place] [facility] [address] [place] [phone] Cheryle Pryor 03/08/2025 7:30 AM EDT PACE Home Care / P[facility] Home Visit [facility] [place] [facility] [address] [place] [phone] Jhoana Grijalva 03/07/2025 7:30 AM EDT PACE Home Care / [facility] Home Visit [facility] [place] [facility] [address] [place] [phone] Jhoana Grijalva 03/06/2025 10:30 AM EDT PACE Home Care / [facility] Home Visit [facility] [place] [facility] [address] [place] [phone] Jhoana Grijalva 03/06/2025 7:30 AM EDT PACE Home Care / P[facility] Home Visit [facility] [place] [facility] [address] [place] [phone] Shawna Lebron 03/04/2025 12:00 PM EDT [facility] Assessment [facility] [place] [facility] [address] [place] [phone] Naila Kinney, LOUISE Routine physical examination (Primary Dx) 03/04/2025 12:00 PM EDT [facility] Assessment [facility] [address] [place] [phone] Wale Pimentel NP Chronic bilateral low back pain without sciatica (Primary Dx); Costochondritis; Other chest pain; Mild dementia with mood disturbance, unspecified dementia type (CMS/HCC V24, CMS/HCC V28); Migraine without status migrainosus, not intractable, unspecified migraine type; Impacted cerumen of right ear; Bilateral hearing loss, unspecified hearing loss type; Fibromyalgia; Conversion disorder with attacks or seizures; Complex regional pain syndrome type 1 of upper extremity, unspecified laterality; Vocal cord dysfunction; JOSEPH (obstructive sleep apnea); Multiple nodules of lung; Chronic respiratory failure with hypoxia ([facility] V24, [facility] V28); Pulmonary emphysema, unspecified emphysema type ([facility] V24, [facility] V28); Paroxysmal atrial fibrillation ([facility] V24, [facility] V28); Primary hypertension; Chronic diastolic congestive heart failure ([facility] V24, [facility] V28); Severe obesity ([facility] V24, [facility] V28); Gastroesophageal reflux disease without esophagitis; Edentulous; Dysphagia, unspecified type; Constipation, unspecified constipation type; Urinary, incontinence, stress female; Recurrent UTI; Hematuria, microscopic; Atrophic vaginitis; Trigger ring finger of right hand; Tendonitis of left rotator cuff; Plantar fascial fibromatosis; Other specified disorders of bone density and structure, multiple sites; Primary osteoarthritis of both feet; Dupuytren's contracture of right hand; DDD (degenerative disc disease), cervical; Type 2 diabetes mellitus with hypoglycemia without coma, without long-term current use of insulin ([facility] V24, [facility] V28); Mixed hyperlipidemia; Other iron deficiency anemia; Tobacco use disorder; Suicidal ideation; Post-traumatic stress disorder, acute; History of DVT (deep vein thrombosis); Gait instability; Blood in stool; Bipolar 1 disorder ([facility] V24, [facility] V28); Anxiety; Abnormal mammogram 03/04/2025 9:45 AM EDT PACE Assessment [facility] [address] [place] [phone] Eugenio Quezada OT Chronic diastolic congestive heart failure ([facility] V24, [facility] V28) (Primary Dx) 03/04/2025 7:30 AM EDT PACE Home Care / PACE Home Visit [facility] [address] [place] [phone] Cheryle Pryor 03/03/2025 10:30 AM EDT PACE Home Care / PACE Home Visit [facility] [address] [place] [phone] Cheryle Pryor 03/03/2025 7:30 AM EDT PACE Home Care / PACE Home Visit [facility] [address] [place] [phone] Cheryle Pryor 03/02/2025 7:30 AM EDT PACE Home Care / PACE Home Visit [facility] [address] [place] [phone] Zuleyma Castellanos 03/01/2025 7:30 AM EDT PACE Home Care / PACE Home Visit [facility] [address] [place] [phone] Cheryle Pryor 02/28/2025 7:30 AM EDT PACE Home Care / PACE Home Visit [facility] [address] [place] [phone] Cheryle Pryor 02/27/2025 12:00 PM EDT Clinical Support [facility] [place] [facility] [address] [place] [phone] Sandy Keith RN 02/27/2025 11:00 AM EDT PACE External Visit [facility] [address] [place] [phone] Bipolar 1 disorder (CMS/[facility] V24, CMS/[facility] V28); Anxiety; Suicidal ideation; Post-traumatic stress disorder, acute 02/27/2025 10:30 AM EDT PACE Home Care / PACE Home Visit [facility] [address] [place] [phone] Jhoana Grijalva 02/26/2025 11:30 AM EDT Office Visit [facility] [place] [facility] [address] [place] [phone] Wale Pimentel NP Shortness of breath (Primary Dx); Bipolar 1 disorder (CMS/HCC V24, CMS/HCC V28); Costochondritis; Chronic obstructive pulmonary disease, unspecified COPD type (CMS/HCC V24, CMS/[facility] V28); Congestive heart failure, unspecified HF chronicity, unspecified heart failure type ([facility] V24, [facility] V28); Complex regional pain syndrome type 1 of both lower extremities; Anxiety 02/25/2025 Telephone [facility] [address] [place] [phone] Jesi Larkin PCA 02/20/2025 7:00 AM EDT PACE Home Care / PACE Home Visit [facility] [address] [place] [phone] Jhoana Grijalva 02/10/2025 [facility] [address] [place] [phone] Naila Kinney, LOUISE 02/09/2025 11:00 AM EDT [facility] [address] [phone] Wale Pimentel, TAYA Suicidal ideation (Primary Dx); Fibromyalgia; Other chest pain; Dyspepsia; Bipolar 1 disorder ([facility] V24, [facility] V28); Gastroesophageal reflux disease without esophagitis 02/09/2025 7:30 AM EDT PACE Home Care / PACE Home Visit [facility] [address] [place] [phone] Cheryle Pryor 02/09/2025 PACE Admissions [facility] [address] [place] [phone] Jennifer Pacheco, LOUISE Bipolar affective disorder, current episode depressed, current episode severity unspecified ([facility] V24, [facility] V28) (Primary Dx); Suicidal ideation; PTSD (post-traumatic stress disorder); Cannabis use disorder; Mild cognitive impairment with memory loss; Chronic obstructive pulmonary disease, unspecified COPD type ([facility] V24, CMS/[facility] V28) 02/08/2025 7:30 AM EDT P[facility] Home Care / PACE Home Visit [facility] [address] [place] [phone] Jhoana Grijalva 02/07/2025 7:30 AM EDT P[facility] Home [facility] / [facility] [address] [place] [phone] Jhoana Grijalva 02/06/2025 9:30 AM EDT [facility] Home [facility] / [facility] [address] [place] [phone] Jhoana Grijalva 02/06/2025 7:30 AM EDT PACE Home [facility] / [facility] [address] [place] [phone] Juanito Wasserman 02/05/2025 7:30 AM EDT P[facility] Home [facility] / [facility] [address] [place] [phone] Cheryle Pryor 02/04/2025 7:30 AM EDT P[facility] Home [facility] / [facility] [address] [place] [phone] Cheryle Pryor 02/03/2025 10:00 AM EDT P[facility] Home [facility] / [facility] [address] [place] [phone] Cheryle Pryor 02/03/2025 7:30 AM EDT PACE Home Care / [facility] [address] [place] [phone] Juanito Wasserman 02/02/2025 7:30 AM EDT P[facility] Home [facility] / [facility] [address] [place] [phone] Jhoana Grijalva 02/01/2025 7:30 AM EDT P[facility] Home [facility] / [facility] [address] [place] [phone] Zuleyma Castellanos 01/31/2025 7:30 AM EDT PACE Home Care / [facility] [address] [place] [phone] Cheryle Pryor 01/30/2025 10:30 AM EDT PACE Home Care / [facility] [address] [place] [phone] Jhoana Grijalva 01/30/2025 8:15 AM EDT PACE Home Care / [facility] [address] [place] [phone] Jhoana Grijalva 01/29/2025 7:30 AM EDT PACE Home Care / [facility] [address] [place] [phone] Cheryle Pryor 01/29/2025 [facility] [address] [place] [phone] Rafaela Marion LPN 01/28/2025 7:30 AM EDT P[facility] Home Care / [facility] [address] [place] [phone] Shawna Lebron 01/27/2025 10:30 AM EDT P[facility] Home [facility] / [facility] [address] [place] [phone] Cheryle Pryor 01/27/2025 7:30 AM EDT PACE Home Care / [facility] [address] [place] [phone] Cheryle Pryor 01/26/2025 7:30 AM EDT PACE Home [facility] / [facility] [address] [place] [phone] Cheryle Pryor 01/25/2025 7:30 AM EDT P[facility] Home [facility] / [facility] [address] [place] [phone] Jhoana Grijalva 01/23/2025 11:00 AM EDT P[facility] Home [facility] / [facility] [address] [place] [phone] uJanito Wasserman 01/22/2025 7:30 AM EDT P[facility] Home Care / [facility] [address] [place] [phone] Cheryle Pryor 01/21/2025 7:30 AM EDT P[facility] Home [facility] / [facility] [address] [place] [phone] Shawna Lebron 01/20/2025 11:00 AM EDT [facility] Home [facility] / [facility] [address] [place] [phone] Cheryle Pryor 01/20/2025 7:30 AM EDT P[facility] Home [facility] / [facility] [address] [place] [phone] Cheryle Pryor 01/19/2025 7:30 AM EDT P[facility] Home [facility] / [facility] [address] [place] [phone] Cheryle Pryor 01/18/2025 7:30 AM EDT P[facility] Home [facility] / [facility] [address] [place] [phone] Zuleyma Castellanos 01/17/2025 7:30 AM EDT [facility] Home [facility] / [facility] [address] [place] [phone] Cheryle Pryor 01/16/2025 10:30 AM EDT PACE Home Care / [facility] [address] [place] [phone] Jhoana Grijalva 01/16/2025 7:30 AM EDT PACE Home Care / [facility] [address] [place] [phone] Shawna Lebron 01/15/2025 10:00 AM EDT Clinical Support [facility] [address] [place] [phone] Pricilla Coreas LPN 01/15/2025 7:30 AM EDT PACE Home Care / [facility] [address] [place] [phone] Cheryle Pryor 01/14/2025 7:00 AM EDT PACE Home Care / [facility] [address] [place] [phone] Juanito Wasserman 01/13/2025 10:30 AM EDT PACE Home Care / [facility] [address] [place] [phone] Cheryle Pryor 01/13/2025 7:30 AM EDT P[facility] Home Care / [facility] [address] [place] [phone] Cheryle Pyror 01/12/2025 12:30 PM EDT [facility] [address] [place] [phone] Wale Pimentel, TAYA Other chest pain (Primary Dx); Congestive heart failure, unspecified HF chronicity, unspecified heart failure type (CMS/HCC V24, CMS/HCC V28); Moderate episode of recurrent major depressive disorder ([facility] V24, [facility] V28); Post-traumatic stress disorder, acute; Bipolar 1 disorder ([facility] V24, [facility] V28); Anxiety; Chronic idiopathic constipation; Fall from bed, initial encounter; Chronic diastolic congestive heart failure ([facility] V24, [facility] V28) 01/12/2025 9:30 AM EDT Treatment [facility] [address] [place] [phone] Ani Quezada, IN [employer] 01/12/2025 7:30 AM EDT P[facility] Home [facility] / [facility] [address] [place] [phone] Cheryle Pryor 01/11/2025 7:30 AM EDT PACE Home Care / [facility] [address] [place] [phone] Jhoana Grijalva 01/10/2025 7:00 AM EDT PACE Home Care / [facility] Visit [facility] [address] [place] [phone] Zuleyma Castellanos 01/09/2025 10:30 AM EDT PACE Home Care / [facility] [address] [place] [phone] Jhoana Grijalva 01/09/2025 7:30 AM EDT P[facility] Home Care / [facility] [address] [place] [phone] Shawna Lebron 01/09/2025 Telephone [facility] [address] [place] [phone] Ani Quezada, [employer] 01/08/2025 7:30 AM EDT P[facility] Home Care / [facility] [address] [place] [phone] KonstantinAminaCheryle 01/07/2025 7:30 AM EDT PACE Home Care / [facility] [address] [place] [phone] Sherlyarmen Shawna 01/06/2025 10:30 AM EDT [facility] Home Care / [facility] [address] [place] [phone] Shawna Lebron 01/06/2025 7:00 AM EDT [facility] Home [facility] / [facility] [address] [place] [phone] Shawna Lebron from Last 3 Months Immunizations Immunization Administration Dates Next Due Influenza Quadrivalent, 0.5m [...] pertussis (Boostrix; Adacel) 7yo and older 05/12/2008 Surgical History Surgery Date Site/Laterality Comments COLONOSCOPY SPLENECTOMY, TOTAL CHOLECYSTECTOMY SECTION STEREOTACTIC CORE BIOPSY Left TONSILLECTOMY Medical History Medical History Date Comments History of esophageal stricture Wears dentures History of deep vein thrombosis History of pulmonary embolism History of falling History of CVA (cerebrovascular accident) Abdominal pain 07/30/2024 COPD (chronic obstructive pu lmonary disease) ([facility] V24, [facility] V28) Hyperlipidemia Hypertension Migraine A-fib ([facility] V24, [facility] V28) CHF (congestive heart failure) ([facility] V24, [facility] V28) Sleep apnea Pulmonary embolism ([facility] V24, [facility] V28) DVT of proximal leg (deep ve in thrombosis) ([facility] V24, [facility] V28) Chronic kidney disease Pneumonia of right lower lobe due to infectious organism 11/21/2024 Oral lesion 07/30/2024 Leukocytosis (leucocytosis) 01/29/2024 Family History Medical History Relation Name Comments Kidney failure Father Lung cancer Breast cancer Mother Lung cancer Relation Name Status Comments Father Mother Social History Tobacco Use Types Packs/Day Years Used Date Smoking Tobacco: Every Day Cigarettes 0.5 45.8 Started: 1979 Smokeless Tobacco: Current Tobacco Cessation:Ready to Q uit: No; Counseling Given: Not Answered Comments:cigs per day : 6 Calculated quantity/packs [...] AM EDT Sexual Orientation Not on file Obstetrics History Para Term AB IAB SAB Ectopic Multiple Livin g Live Births 6 5 Date Outcome GA Total Labor Labor/2nd/3rd Weight Sex Type Anes PTL Jonna A1 A5 Name Clin Last Filed Vital Signs Vital Sign Reading [...] Mass Index 35.6 04/07/2025 3:54 PM EDT Plan of Treatment Upcoming Encounters Date Type Department Care Team ([facility] st Contact Info) Description 04/09/2025 11:30 AM EDT Clinical Support [facility] [place] [address] [place] [phone] 04/13/2025 [facility] Attend[facility] [address] [place] [address] 04/13/2025 7:30 AM EDT PACE Home Care / [facility] [address] [place] [phone] Cheryle Pryor 04/13/2025 9:00 AM EDT [facility] Attendance[facility] [place] [address] [place] [address] 04/14/2025 7:30 AM EDT PACE Home Care / [facility] [address] [place] [address] Cheryle Pryor 04/14/2025 10:30 AM EDT PACE Home Care / [facility] [address] [place] [phone] Cheryle Pryor 04/14/2025 1:00 PM EDT Clinical Support Lung Screening Program - [address] [place] [address] [place] [address] 04/15/2025 7:30 AM EDT PACE Home Care / [facility] [address] [place] [phone] Cheryle Pryor 04/15/2025 9:00 AM EDT [facility] [place] [facility] [address] [place] [address] 04/16/2025 7:30 AM EDT PACE Home Care / [facility] [address] [place] [phone] Cheryle Pryor 04/17/2025 7:30 AM EDT PACE Home Care / [facility] [address] [place] [phone] Shawna Lebron 04/17/2025 10:30 AM EDT PACE Home Care / [facility] [place] [facility] [address] [place] [phone] Jhoana Grijalva 04/18/2025 7:30 AM EDT PACE Home Care / [facility] [address] [place] [phone] Jhoana Grijalva 04/19/2025 7:30 AM EDT PACE Home Care / [facility] [address] [place] [phone] Jhoana Grijalva 04/20/2025 [facility] [address] [place] [phone] 04/20/2025 7:30 AM EDT PACE Home Care / [facility] [address] [place] [phone] Cheryle Pryor 04/20/2025 9:00 AM EDT [facility] Att[facility] [place] [facility] [address] [place] [address] 04/21/2025 7:30 AM EDT PACE Home Care / [facility] Home Visit [facility] [address] [place] [address] Cheryle Pryor 04/21/2025 10:30 AM EDT PACE Home Care / [facility] [address] [place] [address] Cheryle Pryor 04/22/2025 7:30 AM EDT PACE Home Care / [facility] [address] [place] [phone] Cheryle Pryor 04/22/2025 9:00 AM EDT [facility] [place] [facility] [address] [place] [address] 04/23/2025 7:30 AM EDT PACE Home Care / [facility] [address] [place] [phone] Cheryle Pryor 04/24/2025 11:30 AM EDT PACE Home Care / [facility] [address] [place] [phone] Juanito Wasserman 04/25/2025 7:30 AM EDT PACE Home Care / [facility] [address] [place] [phone] Cheryle Pryor 04/26/2025 7:30 AM EST PACE Home Care / [facility] [address] [place] [phone] Cheryle Pryor 04/27/2025 [facility] [place] [facility] [address] [place] [address] 04/27/2025 7:30 AM EST PACE Home Care / [facility] [address] [place] [phone] Cheryle Pryor 04/27/2025 9:00 AM EST [facility] [place] [facility] [address] [place] [phone] 04/28/2025 7:30 AM EST PACE Home Care / [facility] [address] [place] [phone] Cheryle Pryor 04/28/2025 10:30 AM EST PACE Home Care / [facility] [address] [place] [phone] Cheryle Pryor 04/29/2025 7:30 AM EST PACE Home Care / [facility] [address] [place] [phone] Cheryle Pryor 04/29/2025 9:00 AM EST [facility] [place] [facility] [address] [place] [phone] 04/30/2025 7:30 AM EST P[facility] Home Care / [facility] [address] [place] [phone] Cheryle Pryor 05/01/2025 7:30 AM EST PACE Home Care / [facility] [address] [place] [phone] Shawna Lebron 05/01/2025 10:30 AM EST [facility] Home Care / [facility] [address] [place] [phone] Jhoana Grijalva 05/02/2025 7:30 AM EST PACE Home Care / [facility] [address] [place] [phone] Jhoana Grijalva 05/03/2025 7:30 AM EST PACE Home Care / [facility] [address] [place] [phone] Jhoana Grijalva 05/04/2025 [facility] [address] [place] [phone] 05/04/2025 7:30 AM EST P[facility] Home Care / [facility] [address] [place] [phone] Cheryle Pryor 05/04/2025 9:00 AM EST [facility] [address] [place] [phone] 05/05/2025 7:30 AM EST PACE Home Care / [facility] [address] [place] [phone] Cheryle Pryor 05/05/2025 10:30 AM EST PACE Home Care / [facility] [address] [place] [phone] Cheryle Pryor 05/06/2025 7:30 AM EST PACE Home Care / [facility] [address] [place] [phone] Cheryle Pryor 05/06/2025 9:00 AM EST [facility] [place] [facility] [address] [place] [phone] 05/07/2025 7:30 AM EST P[facility] Home Care / [facility] [address] [place] [address] Cheryle Pryor 05/07/2025 9:00 AM EST Appointment [facility] [address] [place] [address] Rambo Barlow MD [address] [address] 05/08/2025 7:30 AM EST PACE Home Care / [facility] [address] [place] [phone] Shawna Lebron 05/08/2025 10:30 AM EST P[facility] Home Care / [facility] [address] [place] [phone] Jhoana Grijalva 05/09/2025 7:30 AM EST PACE Home Care / [facility] [address] [place] [phone] Cheryle Pryor 05/10/2025 7:30 AM EST PACE Home Care / [facility] [address] [place] [phone] Cheryle Pryor 05/11/2025 [facility] [address] [place] [phone] 05/11/2025 7:30 AM EST P[facility] Home Care / [facility] [address] [place] [phone] Cheryle Pryor 05/11/2025 9:00 AM EST [facility] [address] [place] [address] 05/12/2025 7:30 AM EST P[facility] Home Care / [facility] [address] [place] [address] Cheryle Pryor 05/12/2025 10:30 AM EST P[facility] Home Care / [facility] [address] [place] [phone] Cheryle Pryor 05/13/2025 7:30 AM EST P[facility] Home Care / [facility] [address] [place] [phone] Cheryle Pryor 05/13/2025 9:00 AM EST [facility] [address] [place] [phone] 05/14/2025 7:30 AM EST P[facility] Home Care / [facility] [address] [place] [phone] Cheryle Pryor 05/15/2025 7:30 AM EST P[facility] Home Care / [facility] [address] [place] [phone] Shawna Lebron 05/15/2025 10:30 AM EST P[facility] Home Care / [facility] [address] [place] [phone] Jhoana Grijalva 05/16/2025 7:30 AM EST P[facility] Home Care / [facility] [address] [place] [phone] Jhoana Grijalva 05/17/2025 7:30 AM EST P[facility] Home Care / [facility] [address] [place] [phone] Jhoana Grijalva 05/18/2025 [facility] [address] [place] [phone] 05/18/2025 7:30 AM EST [facility] Home Care / [facility] [address] [place] [phone] Cheryle Pryor 05/18/2025 9:00 AM EST [facility] [address] [place] [phone] 05/19/2025 7:30 AM EST P[facility] Home Care / [facility] [address] [place] [phone] Cheryle Pryor 05/19/2025 10:30 AM EST PACE Home Care / [facility] [address] [place] [phone] Cheryle Pryor 05/20/2025 7:30 AM EST P[facility] Home Care / [facility] [address] [place] [phone] Cheryle Pryor 05/20/2025 9:00 AM EST [facility] [place] [facility] [address] [place] [phone] 05/21/2025 7:30 AM EST P[facility] Home Care / [facility] [address] [place] [phone] Cheryle Pryor 05/22/2025 7:30 AM EST P[facility] Home Care / [facility] [address] [place] [phone] Shawna Lebron 05/22/2025 10:30 AM EST [facility] Home [facility] / [facility] [address] [place] [phone] Jhoana Grijalva 05/23/2025 7:30 AM EST P[facility] Home Care / [facility] [address] [place] [phone] Cheryle Pryor 05/24/2025 7:30 AM EST P[facility] Home Care / [facility] [address] [place] [phone] Cheryle Pryor 05/25/2025 [facility] [address] [place] [address] 05/25/2025 7:30 AM EST P[facility] Home Care / [facility] [address] [place] [address] Cheryle Pryor 05/25/2025 9:00 AM EST [facility] [address] [place] [phone] 05/26/2025 7:30 AM EST P[facility] Home Care / [facility] [address] [place] [phone] Cheryle Proyr 05/26/2025 10:30 AM EST P[facility] Home Care / [facility] [address] [place] [phone] Cheryle Pryor 05/27/2025 7:30 AM EST P[facility] Home Care / [facility] [address] [place] [phone] Cheryle Pryor 05/27/2025 9:00 AM EST [facility] [place] [facility] [address] [place] [address] 05/28/2025 7:30 AM EST P[facility] Home Care / [facility] [address] [place] [phone] Cheryle Pryor 05/29/2025 7:30 AM EST P[facility] Home Care / [facility] [address] [place] [address] Shawna Lebron 05/29/2025 10:30 AM EST P[facility] Home Care / [facility] [address] [place] [phone] Jhoana Grijalva 05/30/2025 7:30 AM EST P[facility] Home Care / [facility] [address] [place] [phone] Jhoana Grijalva 05/31/2025 7:30 AM EST [facility] Home [facility] / [facility] [address] [place] [phone] Jhoana Grijalva 06/01/2025 [facility] [address] [place] [phone] 06/01/2025 7:30 AM EST [facility] Home [facility] / [facility] [address] [place] [phone] Cheryle Pryor 06/01/2025 9:00 AM EST PACE Attendance/Day Center [facility] [address] [place] [phone] 06/02/2025 7:30 AM EST [facility] / [facility] [address] [place] [phone] Cheryle Pryor 06/02/2025 10:30 AM EST [facility] [address] [place] [phone] Cheryle Pryor 06/03/2025 7:30 AM EST [facility] [address] [place] [phone] Cheryle Pryor 06/03/2025 9:00 AM EST [facility] Att[facility] [address] [place] [address] 06/04/2025 7:30 AM EST [facility] [address] [place] [phone] Cheryle Pryor 06/05/2025 7:30 AM EST [facility] [place] [facility] [address] [place] [phone] Shawna Lebron 06/05/2025 10:30 AM EST [facility] [address] [place] [phone] Jhoana Grijalva 06/06/2025 7:30 AM EST [facility] [place] [facility] [address] [place] [phone] Cheryle Pryor 06/07/2025 7:30 AM EST [facility] [address] [place] [phone] Cheryle Pryor 06/08/2025 [facility] [facility] [address] [place] [phone] 06/08/2025 9:00 AM EST [facility] [place] [facility] [address] [place] [phone] 06/10/2025 9:00 AM EST [facility] [place] [facility] [address] [place] [phone] 06/15/2025 [facility] [place] [facility] [address] [place] [address] 06/15/2025 9:00 AM EST [facility] [address] [place] [phone] 06/17/2025 9:00 AM EST [facility] [address] [place] [address] 06/22/2025 [facility] [address] [place] [phone] 06/22/2025 9:00 AM EST [facility] [address] [place] [address] 06/24/2025 9:00 AM EST [facility] [address] [place] [address] 06/29/2025 [facility] [address] [place] [phone] 06/29/2025 9:00 AM EST [facility] [address] [place] [phone] 07/01/2025 9:00 AM EST [facility] [address] [place] [address] 07/06/2025 [facility] [address] [place] [phone] 07/06/2025 9:00 AM EST [facility] [address] [place] [phone] 2025 9:00 AM EST [facility] [address] [place] [address] 07/13/2025 [facility] [address] [place] [address] 07/13/2025 9:00 AM EST [facility] [place] [facility] [address] [place] [address] 07/15/2025 9:00 AM EST [facility] [address] [place] [address] 07/20/2025 [facility] [address] [place] [phone] 07/20/2025 9:00 AM EST [facility] [address] [place] [phone] 07/22/2025 9:00 AM EST [facility] [address] [place] [address] 07/27/2025 [facility] [address] [place] [phone] 07/27/2025 9:00 AM EST [facility] [address] [place] [phone] 07/29/2025 9:00 AM EST [facility] [address] [place] [address] 08/03/2025 [facility] [place] [facility] [address] [place] [phone] 08/03/2025 9:00 AM EST [facility] [place] [facility] [address] [place] [address] 08/05/2025 9:00 AM EST [facility] [place] [facility] [address] [place] [address] 08/10/2025 [facility] [address] [place] [phone] 08/12/2025 9:00 AM EST [facility] [address] [place] [phone] 08/17/2025 [facility] [address] [place] [phone] 08/19/2025 9:00 AM EST [facility] [address] [place] [phone] 08/24/2025 [facility] [address] [place] [phone] 08/26/2025 9:00 AM EST [facility] [address] [place] [phone] 08/31/2025 [facility] [address] [place] [phone] 09/02/2025 9:00 AM EDT [facility] [address] [place] [phone] 09/07/2025 [facility] [address] [place] [phone] 09/09/2025 9:00 AM EDT [facility] [address] [place] [phone] 09/14/2025 [facility] [address] [place] [phone] 09/16/2025 9:00 AM EDT [facility] [address] [place] [phone] 09/21/2025 [facility] [address] [place] [phone] 09/23/2025 9:00 AM EDT [facility] [address] [place] [phone] 09/28/2025 [facility] [address] [place] [phone] 09/30/2025 9:00 AM EDT [facility] [address] [place] [phone] 10/05/2025 [facility] [address] [place] [phone] 10/07/2025 9:00 AM EDT [facility] [address] [place] [phone] 10/12/2025 [facility] [address] [place] [phone] 10/14/2025 9:00 AM EDT [facility] [address] [place] [phone] 10/19/2025 [facility] [address] [place] [phone] 10/21/2025 9:00 AM EDT [facility] [address] [place] [phone] 10/26/2025 [facility] [address] [place] [phone] 10/28/2025 9:00 AM EDT [facility] [place] [facility] [address] [place] [address] 11/02/2025 [facility] [address] [place] [address] 11/04/2025 9:00 AM EDT [facility] [address] [place] [address] 11/09/2025 [facility] [address] [place] [phone] 11/11/2025 9:00 AM EDT [facility] [address] [place] [address] 11/16/2025 [facility] [address] [place] [phone] 11/18/2025 9:00 AM EDT [facility] [address] [place] [phone] 11/23/2025 [facility] [address] [place] [phone] 11/25/2025 9:00 AM EDT [facility] [address] [place] [phone] 11/30/2025 [facility] [address] [place] [phone] 12/02/2025 9:00 AM EDT [facility] [address] [place] [phone] 12/07/2025 [facility] [address] [place] [phone] 12/09/2025 9:00 AM EDT [facility] [address] [place] [address] 12/14/2025 [facility] [address] [place] [address] 12/16/2025 9:00 AM EDT [facility] [place] [facility] [address] [place] [address] 12/21/2025 [facility] [address] [place] [address] 12/23/2025 9:00 AM EDT [facility] [place] [facility] [address] [place] [address] 12/28/2025 [facility] [place] [facility] [address] [place] [phone] 12/30/2025 9:00 AM EDT [facility] [place] [facility] [address] [place] [phone] 01/04/2026 [facility] [address] [place] [phone] 01/06/2026 9:00 AM EDT [facility] [address] [place] [phone] 01/11/2026 [facility] [place] [facility] [address] [place] [address] 01/13/2026 9:00 AM EDT [facility] [address] [place] [address] 01/18/2026 [facility] [place] [facility] [address] [place] [address] 01/20/2026 9:00 AM EDT [facility] [place] [facility] [address] [place] [address] 01/25/2026 [facility] [place] [facility] [address] [place] [address] 01/27/2026 9:00 AM EDT [facility] [place] [facility] [address] [place] [address] 02/01/2026 [facility] [address] [place] [phone] 02/03/2026 9:00 AM EDT [facility] [place] [facility] [address] [place] [phone] 02/08/2026 [facility] [address] [place] [phone] 02/10/2026 9:00 AM EDT [facility] [place] [facility] [address] [place] [phone] 02/15/2026 [facility] [address] [place] [phone] 02/17/2026 9:00 AM EDT [facility] [place] [facility] [address] [place] [phone] 02/22/2026 [facility] [place] [facility] [address] [place] [phone] 02/24/2026 9:00 AM EDT [facility] [place] [facility] [address] [place] [phone] 03/03/2026 9:00 AM EDT [facility] [address] [place] [phone] 03/10/2026 9:00 AM EDT [facility] [place] [facility] [address] [place] [address] 03/17/2026 9:00 AM EDT [facility] [address] [place] [address] 03/24/2026 9:00 AM EDT [facility] [place] [facility] [address] [place] [address] 03/31/2026 9:00 AM EDT [facility] [address] [place] [phone] 04/07/2026 9:00 AM EDT [facility] [address] [place] [phone] 04/14/2026 9:00 AM EDT [facility] [address] [place] [phone] 04/21/2026 9:00 AM EDT [facility] [address] [place] [phone] Health Maintenance Due Date Last Done Comments Diabetes: Annual Foot Exam 1972 Diabetes: Annual Retina Eye Exam 1972 Meningococcal B Vaccine (1 of 4 - Increased Risk) 1972 Zoster Vaccines (1 of 2) 1981 Cervical Cancer Screening: Pap Smear 1983 RSV Immunization Adult Patients (1 - Risk 50-74 years 1-dose series) 2012 Meningococcal ACWY Vaccine (2 - Risk 2-dose series) 06/29/2023 05/04/2023 HIV Screening 01/17/2024 Hepatitis C Screening 01/17/2024 Social Influencers of Health Screening 01/17/2024 Diabetes: Annual Urine Albumin-Creatinine Ratio (uACR) 07/31/2024 COVID-19 Vaccine ( season) 2025 04/05/2023, 04/29/2021, 08/03/2020, Additional history exists Influenza Vaccine (#1) 2025 , 06/26/2024, 03/21/2023, Additional history exists Diabetes: Blood Sugar Control Test (HGBA1C) 09/23/2025 03/25/2025, 12/29/2024, 03/17/2024 Lung Cancer Screening (Low Dose CT) 12/30/2025 12/30/2024 Diabetes: Annual GFR (Glomerular Filtration Rate) 04/08/2026 04/08/2025, 04/07/2025, 04/06/2025, Additional history exists Hypertension/CHF/CAD Annual BMP Blood Test 04/08/2026 04/08/2025, 04/07/2025, 04/06/2025, Additional history exists Breast Cancer Screening 12/16/2026 12/16/2024, 03/26 DTaP,Tdap,and Td Vaccines (3 - Td or Tdap) 08/09/2028 08/09/2018, 05/12/2008 Cholesterol Screening (Lipid Panel) 09/25/2028 09/26/2023 Colorectal Cancer Screening: Colonoscopy 12/09/2034 12/09/2024 HIB Vaccines Completed 05/04/2023 Pneumococcal Vaccine: 50+ Years Completed 05/04/2023, 05/04/2023, 04/21/2017, Additional history exists Depression Screening Completed 01/12/2025 HPV Vaccines Aged Out No longer eligi [...] Procedure Name Priority Date/Time Associated Diagnosis Comments COMPREHENSIVE METABOLIC PANEL Routine 04/08/2025 6:18 AM EDT Essential (primary) hypertension COMPLETE BLOOD COUNT Routine 04/08/2025 6:18 AM EDT Essential (primary) hypertension ECG ANNOTATED 04/08/2025 MAGNESIUM Routine 04/07/2025 8:04 AM EDT BASIC METABOLIC PANEL Routine 04/07/2025 8:04 AM EDT CBC WITH AUTO DIFFERENTIAL Routine 04/07/2025 8:04 AM EDT CBC AND DIFFERENTIAL Routine 04/07/2025 8:04 AM EDT FERNANDEZ URINE CULTURE TUBE STAT 04/06/2025 9:02 AM EDT URINALYSIS WITH REFLEX MICROSCOPIC AND CULTURE STAT 04/06/2025 9:02 AM EDT URINALYSIS WITH REFLEX MICROSCOPIC AND CULTURE STAT 04/06/2025 9:02 AM EDT URINALYSIS WITH REFLEX MICROSCOPIC STAT 04/06/2025 9:02 AM EDT URINALYSIS WITH REFLEX MICROSCOPIC STAT 04/06/2025 9:02 AM EDT CULTURE URINE STAT 04/06/2025 9:02 AM EDT CBC WITH AUTO DIFFERENTIAL STAT 04/06/2025 8:24 AM EDT TROPONIN I HIGH SENSITIVITY STAT 04/06/2025 8:24 AM EDT B-TYPE NATRIURETIC PEPTIDE STAT 04/06/2025 8:24 AM EDT COMPREHENSIVE METABOLIC PANEL STAT 04/06/2025 8:24 AM EDT CBC AND DIFFERENTIAL STAT 04/06/2025 8:24 AM EDT POCT GLUCOSE BLOOD Routine 04/01/2025 8: 46 AM EDT XR KNEE 4+ VIEWS RIGHT STAT 04/01/2025 2:[address] THORACIC SPINE WO CONTRAST STAT 04/01/2025 2:[address] CERVICAL SPINE WO CONTRAST STAT 04/01/2025 2:[address] HEAD WO CONTRAST STAT 04/01/2025 2 :23 AM EDT FERNANDEZ URINE CULTURE TUBE STAT 04/01/2025 12:02 AM EDT URINALYSIS WITH REFLEX MICROSCOPIC AND CULTURE STAT 04/01/2025 12:02 AM EDT URINALYSIS WITH REFLEX MICROSCOPIC AND CULTURE STAT 04/01/2025 12:02 AM EDT CULTURE URINE STAT 04/01/2025 12:02 AM EDT CBC WITH AUTO DIFFERENTIAL STAT 03/31/2025 10:20 PM EDT MAGNESIUM STAT 03/31/2025 10:20 PM EDT BASIC METABOLIC PANEL STAT 03/31/2025 10:20 PM EDT CBC AND DIFFERENTIAL STAT 03/31/2025 10:20 PM EDT POCT GLUCOSE BLOOD Routine 03/31/2025 10 :15 PM EDT ECG 12-LEAD STAT 03/31/2025 10:10 PM EDT COMPREHENSIVE METABOLIC PANEL Routine 03/25/2025 12:57 PM EDT Anxiety Weight loss Primary hypertension HEMOGLOBIN A1C Routine 03/25/2025 12:57 PM EDT Type 2 diabetes mellitus with hypoglycemia without coma, without long-term current use of insulin (CMS/[facility] V24, CMS/[facility] V28) THYROID STIMULATING HORMONE WITH REFLEX TO FREE T4 AND FREE T3 Routine 03/25/2025 12:57 PM EDT Weight loss URINALYSIS WITH REFLEX MICROSCOPIC AND CULTURE Routine 03/06/2025 1:57 PM EDT Adult general medical examination CULTURE URINE Routine 03/06/2025 1:57 PM EDT Adult general medical examination CT LUNG SCREENING Routine 12/30/2024 3:3 6 PM EDT Encounter for screening for malignant neoplasm of respiratory organs Nicotine dependence, cigarettes, uncomplicated MG MAMMO DIGITAL DIAGNOSTIC W ADÁN RIGHT Routine 12/16/2024 10:11 AM EDT BI-RADS category 3 mammogram result COLONOSCOPY Routine 12/09/2024 11:13 AM EDT Blood in stool Weight loss LIPID PANEL Routine 09/26/2023 from Last 3 Months or Most Recently Relevant to Health Maintenance Results * Complete blood count (04/08/2025 6:18 AM EDT) WBC 9.2 4.8 - 10.8 K/mcL LAB HEMETOLOGY METHOD 04/08/2025 8:51 AM EDT [facility] RBC 4.70 3.80 - 4.80 M/mcL LAB HEMETOLOGY METHOD 04/08/2025 8:51 AM EDT [facility] Hemoglobin 14.9 11.5 - 16.0 g/dL LAB HEMETOLOGY METHOD 04/08/2025 8:51 AM EDT [facility] Hematocrit 45.0 35.0 - 47.0 % LAB HEMETOLOGY METHOD 04/08/2025 8:51 AM EDT [facility] MCV 95.7 79.0 - 98.0 FL LAB HEMETOLOGY METHOD 04/08/2025 8:51 AM EDT [facility] MCH 31.7 27.0 - 32.0 pcg LAB HEMETOLOGY METHOD 04/08/2025 8:51 AM EDT [facility] MCHC 33.1 32.0 - 37.0 g/dL LAB HEMETOLOGY METHOD 04/08/2025 8:51 AM EDT [facility] RDW 12.6 11.0 - 15.0 % LAB HEMETOLOGY METHOD 04/08/2025 8:51 AM EDT [facility] Platelets 349 130 - 400 K/mcL LAB HEMETOLOGY METHOD 04/08/2025 8:51 AM EDT [facility] MPV 10.0 7.0 - 11.0 FL LAB HEMETOLOGY METHOD 04/08/2025 8:51 AM EDT [facility] NRBC 0.0 <1.0 % LAB HEMETOLOGY METHOD 04/08/2025 8:51 AM EDT [facility] NRBC Absolute 0.00 <0.10 K/mcL LAB HEMETOLOGY METHOD 04/08/2025 8:51 AM EDT [facility] Blood Venous blood specimen / Unknown Venipuncture / Unknown 04/08/2025 6:18 AM EDT 04/08/2025 8:21 AM EDT us Ailyn Justice DENTAL CERAMIST LAB BLOOD ORDERABLES Final Re sult [facility] [address] [place] [address], * (ABNORMAL) Comprehensive metabolic panel (04/08/2025 6:18 AM EDT) Only the most recent of3 resultswithin the time period is included. Sodium 136 133 - 145 mmol/L LAB CHEMISTRY METHOD 04/08/2025 9:07 AM EDT [facility] Potassium 4.0 3.5 - 5.5 mmol/L LAB CHEMISTRY METHOD 04/08/2025 9:07 AM [facility] Chloride 104 96 - 110 mmol/L LAB CHEMISTRY METHOD 04/08/2025 9:07 AM [facility] CO2 25 21 - 32 mmol/L LAB CHEMISTRY METHOD 04/08/2025 9:07 AM [facility] Anion Gap 7 3 - 11 LAB CHEMISTRY METHOD 04/08/2025 9:07 AM [facility] Glucose 93 70 - 100 mg/dL LAB CHEMISTRY METHOD 04/08/2025 9:07 AM [facility] BUN 17 5 - 25 mg/dL LAB CHEMISTRY METHOD 04/08/2025 9:07 AM [facility] Creatinine 1.00 0.50 - 1.10 mg/dL LAB CHEMISTRY METHOD 04/08/2025 9:07 AM [facility] eGFR 64 >=60 mL/min/1. 73m2 LAB CHEMISTRY METHOD 04/08/2025 9:07 AM [facility] Comment:Calculation based on the Chronic Kidney Disease Epidemiology Collaboration (CKD-EPI) equation refit without adjustment for race. BUN/Creatinine Ratio 17.0 LAB CHEMISTRY METHOD 04/08/2025 9:07 AM [facility] Calcium 9.8 8.5 - 10.5 mg/dL LAB CHEMISTRY METHOD 04/08/2025 9:07 AM [facility] AST (SGOT) 26 10 - 42 unit/L LAB CHEMISTRY METHOD 04/08/2025 9:07 AM [facility] ALT (SGPT) 35 10 - 60 unit/L LAB CHEMISTRY METHOD 04/08/2025 9:07 AM [facility] Alkaline Phosphatase 147(H) 42 - 121 unit/L LAB CHEMISTRY METHOD 04/08/2025 9:07 AM [facility] Total Protein 7.6 6.0 - 8.0 g/dL LAB CHEMISTRY METHOD 04/08/2025 9:07 AM EDT [facility] Albumin 3.8 3.2 - 5.0 g/dL LAB CHEMISTRY METHOD 04/08/2025 9:07 AM EDT [facility] Total Bilirubin 0.3 0.0 - 1.4 mg/dL LAB CHEMISTRY METHOD 04/08/2025 9:07 AM EDT [facility] Blood Venous blood specimen / Unknown Venipuncture / Unknown 04/08/2025 6:18 AM EDT 04/08/2025 8:21 AM EDT Ailyn Justice NP LAB BLOOD ORDERABLES Final Re sult [facility] [address] [place] [address], * ECG-Annotated (04/08/2025) us Provider Onbase MD ECG ORDERABLES Final Result * CBC auto differential (04/07/2025 8:04 AM EDT) Only the most recent of3 resultswithin the time period is included. WBC 5.6 4.8 - 10.8 K/mcL LAB HEMETOLOGY METHOD 04/07/2025 8:27 AM EDT [facility] RBC 4.50 3.80 - 4.80 M/mcL LAB HEMETOLOGY METHOD 04/07/2025 8:27 AM EDT [facility] Hemoglobin 14.1 11.5 - 16.0 g/dL LAB HEMETOLOGY METHOD 04/07/2025 8:27 AM [facility] Hematocrit 42.4 35.0 - 47.0 % LAB HEMETOLOGY METHOD 04/07/2025 8:27 AM EDT [facility] MCV 95.1 79.0 - 98.0 FL LAB HEMETOLOGY METHOD 04/07/2025 8:27 AM [facility] MCH 31.6 27.0 - 32.0 pcg LAB HEMETOLOGY METHOD 04/07/2025 8:27 AM [facility] MCHC 33.3 32.0 - 37.0 g/dL LAB HEMETOLOGY METHOD 04/07/2025 8:27 AM [facility] RDW 12.9 11.0 - 15.0 % LAB HEMETOLOGY METHOD 04/07/2025 8:27 AM [facility] Platelets 302 130 - 400 K/mcL LAB HEMETOLOGY METHOD 04/07/2025 8:27 AM [facility] MPV 9.4 7.0 - 11.0 FL LAB HEMETOLOGY METHOD 04/07/2025 8:27 AM [facility] NRBC 0.0 <1.0 % LAB HEMETOLOGY METHOD 04/07/2025 8:27 AM [facility] NRBC Absolute 0.00 <0.10 K/mcL LAB HEMETOLOGY METHOD 04/07/2025 8:27 AM [facility] Neutrophils Relative 48.0 % LAB HEMETOLOGY METHOD 04/07/2025 8:27 AM [facility] Lymphocytes Relative 31.9 % LAB HEMETOLOGY METHOD 04/07/2025 8:27 AM [facility] Monocytes Relative 14.6 % LAB HEMETOLOGY METHOD 04/07/2025 8:27 AM [facility] Eosinophils Relative 3.9 % LAB HEMETOLOGY METHOD 04/07/2025 8:27 AM [facility] Basophils Relative 1.4 % LAB HEMETOLOGY METHOD 04/07/2025 8:27 AM [facility] Immature Granulocytes Relative 0.2 % LAB HEMETOLOGY METHOD 04/07/2025 8:27 AM EDT [facility] Neutrophils Absolute 2.69 1.50 - 7.00 K/[facility] LAB HEMETOLOGY METHOD 04/07/2025 8:27 AM EDT [facility] Lymphocytes Absolute 1.79 1.00 - 5.00 K/[facility] LAB HEMETOLOGY METHOD 04/07/2025 8:27 AM EDT [facility] Monocytes Absolute 0.82 0.20 - 1.00 K/[facility] LAB HEMETOLOGY METHOD 04/07/2025 8:27 AM EDT [facility] Eosinophils Absolute 0.22 0.00 - 0.50 K/[facility] LAB HEMETOLOGY METHOD 04/07/2025 8:27 AM EDT [facility] Basophils Absolute 0.08 0.00 - 0.20 K/[facility] LAB HEMETOLOGY METHOD 04/07/2025 8:27 AM EDT [facility] Immature Granulocytes Absolute 0.01 0.00 - 0.03 K/[facility] LAB HEMETOLOGY METHOD 04/07/2025 8:27 AM EDT [facility] Blood Venous blood specimen / Unknown Venipuncture / Unknown 04/07/2025 8:04 AM EDT 04/07/2025 8:17 AM EDT us Ana Maria Gardner DENTAL CERAMIST LAB BLOOD ORDERABLES Final Resul t [facility] [address] [place] [address], * Magnesium (04/07/2025 8:04 AM EDT) Only the most recent of2 resultswithin the time period is included. Magnesium 2.1 1.9 - 2.6 mg/dL LAB CHEMISTRY METHOD 04/07/2025 9:04 AM EDT [facility] Blood Venous blood specimen / Unknown Venipuncture / Unknown 04/07/2025 8:04 AM EDT 04/07/2025 8:18 AM EDT us Ana Maria Gardner NP LAB BLOOD ORDERABLES Final Resul t [facility] [address] [place] [address], [place] [phone] * Basic metabolic panel (04/07/2025 8:04 AM EDT) Only the most recent of2 resultswithin the time period is included. Sodium 134 133 - 145 mmol/L LAB CHEMISTRY METHOD 04/07/2025 9:04 AM [facility] Potassium 3.9 3.5 - 5.5 mmol/L LAB CHEMISTRY METHOD 04/07/2025 9:04 AM [facility] Chloride 100 96 - 110 mmol/L LAB CHEMISTRY METHOD 04/07/2025 9:04 AM [facility] CO2 26 21 - 32 mmol/L LAB CHEMISTRY METHOD 04/07/2025 9:04 AM [facility] Anion Gap 8 3 - 11 LAB CHEMISTRY METHOD 04/07/2025 9:04 AM [facility] Glucose 90 70 - 100 mg/dL LAB CHEMISTRY METHOD 04/07/2025 9:04 AM [facility] BUN 15 5 - 25 mg/dL LAB CHEMISTRY METHOD 04/07/2025 9:04 AM [facility] Creatinine 0.80 0.50 - 1.10 mg/dL LAB CHEMISTRY METHOD 04/07/2025 9:04 AM [facility] eGFR 83 >=60 mL/min/1. 73m2 LAB CHEMISTRY METHOD 04/07/2025 9:04 AM [facility] Comment:Calculation based on the Chronic Kidney Disease Epidemiology Collaboration (CKD-EPI) equation refit without adjustment for race. BUN/Creatinine Ratio 18.8 LAB CHEMISTRY METHOD 04/07/2025 9:04 AM [facility] Calcium 9.4 8.5 - 10.5 mg/dL LAB CHEMISTRY METHOD 04/07/2025 9:04 AM [facility] Blood Venous blood specimen / Unknown Venipuncture / Unknown 04/07/2025 8:04 AM EDT 04/07/2025 8:18 AM EDT us Ana Maria Gardner NP LAB BLOOD ORDERABLES Final Resul t [facility] [address] [place] [address], [place] [phone] * (ABNORMAL) Urinalysis with reflex microscopic (04/06/2025 9:02 AM EDT) Specific [place] Urine 1.020 1.003 - 1.030 LAB URINALYSIS - AUTOMATED METHOD 04/06/2025 9:25 AM [facility] pH, Urine 6.0 5.0 - 8.0 pH LAB URINALYSIS - AUTOMATED METHOD 04/06/2025 9:25 AM [facility] Leukocytes, Urine Large(A) Negative LAB URINALYSIS - AUTOMATED METHOD 04/06/2025 9:25 AM [facility] Nitrite, Urine Positive(A) Negative LAB URINALYSIS - AUTOMATED METHOD 04/06/2025 9:25 AM [facility] Protein, Urine 30(A) <=Trace mg/dL LAB URINALYSIS - AUTOMATED METHOD 04/06/2025 9:25 AM [facility] Glucose, Urine Negative Negative mg/dL LAB URINALYSIS - AUTOMATED METHOD 04/06/2025 9:25 AM [facility] Ketones, Urine Negative Negative mg/dL LAB URINALYSIS - AUTOMATED METHOD 04/06/2025 9:25 AM EDT [facility] Urobilinogen , Urine 1.0 0.2 - 1.0 mg/dL LAB URINALYSIS - AUTOMATED METHOD 04/06/2025 9:25 AM [facility] Bilirubin, Urine Negative Negative LAB URINALYSIS - AUTOMATED METHOD 04/06/2025 9:25 AM [facility] Blood, Urine Moderate(A) Negative LAB URINALYSIS - AUTOMATED METHOD 04/06/2025 9:25 AM [facility] RBC, Urine 20.3(H) 0 - 4 /HPF LAB URINALYSIS - AUTOMATED METHOD 04/06/2025 9:25 AM [facility] WBC, Urine 824.0(H) 0 - 4 /HPF LAB URINALYSIS - AUTOMATED METHOD 04/06/2025 9:25 AM [facility] Squamous Epithelial, Urine 31 0 - 60 /LPF LAB URINALYSIS - AUTOMATED METHOD 04/06/2025 9:25 AM [facility] Bacteria, Urine Many(A) Negative /HPF LAB URINALYSIS - AUTOMATED METHOD 04/06/2025 9:25 AM [facility] Hyaline Casts, Urine 0.8 0 - 3 /LPF LAB URINALYSIS - AUTOMATED METHOD 04/06/2025 9:25 AM [facility] Urine Urine specimen obtained by clean catch procedure / Unknown Non-blood Collection / Unknown 04/06/2025 9:02 AM EDT 04/06/2025 9:16 AM EDT us Amrita Duke MD LAB URINE ORDERABLES Final Result [facility] [address] [place] [address], [place] [phone] * (ABNORMAL) Urinalysis with reflex microscopic and culture (04/06/2025 9:02 AM EDT) Only the most recent of3 resultswithin the time period is included. Specific [place] Urine 1.020 1.003 - 1.030 LAB URINALYSIS - AUTOMATED METHOD 04/06/2025 9:25 AM [facility] pH, Urine 6.0 5.0 - 8.0 pH LAB URINALYSIS - AUTOMATED METHOD 04/06/2025 9:25 AM [facility] Leukocytes, Urine Large(A) Negative LAB URINALYSIS - AUTOMATED METHOD 04/06/2025 9:25 AM [facility] Nitrite, Urine Positive(A) Negative LAB URINALYSIS - AUTOMATED METHOD 04/06/2025 9:25 AM [facility] Protein, Urine 30(A) <=Trace mg/dL LAB URINALYSIS - AUTOMATED METHOD 04/06/2025 9:25 AM [facility] Glucose, Urine Negative Negative mg/dL LAB URINALYSIS - AUTOMATED METHOD 04/06/2025 9:25 AM [facility] Ketones, Urine Negative Negative mg/dL LAB URINALYSIS - AUTOMATED METHOD 04/06/2025 9:25 AM [facility] Urobilinogen , Urine 1.0 0.2 - 1.0 mg/dL LAB URINALYSIS - AUTOMATED METHOD 04/06/2025 9:25 AM [facility] Bilirubin, Urine Negative Negative LAB URINALYSIS - AUTOMATED METHOD 04/06/2025 9:25 AM [facility] Blood, Urine Moderate(A) Negative LAB URINALYSIS - AUTOMATED METHOD 04/06/2025 9:25 AM [facility] RBC, Urine 20.3(H) 0 - 4 /HPF LAB URINALYSIS - AUTOMATED METHOD 04/06/2025 9:25 AM [facility] WBC, Urine 824.0(H) 0 - 4 /HPF LAB URINALYSIS - AUTOMATED METHOD 04/06/2025 9:25 AM EDT [facility] Squamous Epithelial, Urine 31 0 - 60 /LPF LAB URINALYSIS - AUTOMATED METHOD 04/06/2025 9:25 AM EDT [facility] Bacteria, Urine Many(A) Negative /HPF LAB URINALYSIS - AUTOMATED METHOD 04/06/2025 9:25 AM EDT [facility] Hyaline Casts, Urine 0.8 0 - 3 /LPF LAB URINALYSIS - AUTOMATED METHOD 04/06/2025 9:25 AM EDT [facility] Urine Urine specimen obtained by clean catch procedure / Unknown Non-blood Collection / Unknown 04/06/2025 9:02 AM EDT 04/06/2025 9:16 AM EDT us Deacon Olivera MD LAB URINE ORDERABLES Final R esult Performing Organization Address City/[facility]/ZIP Co de Phone Number [facility] [address] [place] [address], [place] [phone] * Fernandez urine culture tube (04/06/2025 9:02 AM EDT) Only the most recent of2 resultswithin the time period is included. Extra Tube Hold for add-ons. 04/06/2025 11:01 AM EDT [facility] Comment:Auto resulted. Urine Urine specimen obtained by clean catch procedure / Unknown Non-blood Collection / Unknown 04/06/2025 9:02 AM EDT 04/06/2025 9:16 AM EDT us Deacon Olivera MD LAB URINE ORDERABLES Final R esult Performing Organization Address City/[facility]/ZIP Co de Phone Number [facility] [address] [place] [address], [place] [phone] * (ABNORMAL) Culture urine (04/06/2025 9:02 AM EDT) Only the most recent of3 resultswithin the time period is included. Pathologist [facility] Culture, Urine 50,000-100,000 CFU/mL Escherichia coli(A) ANNETTA 04/08/2025 8:05 AM EDT [facility] Comment: This is an edited result. [...] Escherichia coli Trimethoprim/Sulfamethoxazole ANNETTA <=20 ug/ml: Susceptible us Deacon Olivera MD LAB MICROBIOLOGY - GENERAL O RDERABLES Final Result [facility] [address] [place] [address], * Troponin I High Sensitivity (04/06/2025 8:24 AM EDT) [facility] High Sensitivity Troponin I 6 <=54 ng/L LAB CHEMISTRY METHOD 04/06/2025 9:10 AM EDT [facility] Blood Venous blood specimen / Unknown Venipuncture / Unknown 04/06/2025 8:24 AM EDT 04/06/2025 8:37 AM EDT Narrative [facility] - 04/06/2025 9:10 AM EDT High levels of biotin in samples may falsely decrease hsTroponin values. Use caution when interpreting hsTroponin results in patients taking biotin who exhibit renal impairment (eGFR <60) or in patients taking more than 20 mg/day of biotin. us Deacon Olivera MD LAB BLOOD ORDERABLES Final R esult Performing Organization Address City/[facility]/ZIP Co de Phone Number [facility] [address] [place] [address], [place] [phone] * B-Type Natriuretic Peptide (BNP) (04/06/2025 8:24 AM EDT) BNP 23 <=100 pcg/mL LAB CHEMISTRY METHOD 04/06/2025 9:22 AM EDT [facility] Blood Venous blood specimen / Unknown Venipuncture / Unknown 04/06/2025 8:24 AM EDT 04/06/2025 8:37 AM EDT us Deacon Olivera MD LAB BLOOD ORDERABLES Final R esult [facility] [address] [place] [address], [place] [phone] * POCT Glucose, blood (04/01/2025 8:46 AM EDT) Only the most recent of2 resultswithin the time period is included. Glucose POCT 89 70 - 100 mg/dL 04/01/2025 8:47 AM EDT [facility] Blood Capillary blood specimen / Unknown 04/01/2025 8:46 AM EDT 04/01/2025 8:49 AM EDT us Gregorio Mcgregor MD LAB POINT OF CARE TE ST DOCKED DEVICE UNSOLICITED RESULTS Final Result [facility] [address] [place] [address], [place] [phone] * XR Knee 4+ Views Right (04/01/2025 2:38 AM EDT) Anatomical Region Laterality Modality Lower Extremities, Knee Right [facility] 04/01/2025 9:13 AM EDT Impressions 04/01/2025 9:14 AM EDT Impression: 1. No evidence of fracture. 2. Moderate tricompartmental arthritic change. Telerad HALLEY ([id number]) -------- FINAL REPORT -------- Dictated By: Berta Mock Dictated Date: 04/01/2025 09:13 ET Assigned Physician: Berta Mock Reviewed and Electronically Signed By: Berta Mock Signed Date: 04/01/2025 09:14 ET Workstation ID: [id number] Transcribed By: Self Edit Transcribed Date: 04/01/2025 [...] 2. Moderate tricompartmental arthritic change. Telerad PA ([id number]) -------- FINAL REPORT -------- Dictated By: Berta Mock Dictated Date: 04/01/2025 09:13 ET Assigned Physician: Berta Mock Reviewed and Electronically Signed By: Berta Mock Signed Date: 04/01/2025 09:14 ET Workstation ID: [id number] Transcribed By: Self Edit Transcribed Date: 04/01/2025 09:13 ET Evelia Mays MD IM XR PROCEDURES Final Result * CT Thoracic [...] Radhames Hinds MD on 04/01/2025 03:26:49 Evelia Mays MD [facility] CT PROCEDURES Final Result * CT Cervical [...] Radhames Hinds MD on 04/01/2025 03:26:31 Evelia Mays MD IMG CT PROCEDURES Final Result * CT Head [...] on anticoagulation CT head without contrast Comparison: CT/KY/SR - CT HEAD WO CONTRAST - 12/30/24 [...] on anticoagulation CT head without contrast Comparison: CT/[place]/SR - CT HEAD WO CONTRAST - 12/30/24 [...] Radhames Hinds MD on 04/01/2025 03:28:45 Evelia Mays MD IMG CT PROCEDURES Final Result * ECG 12 lead (03/31/2025 10:10 PM EDT) Ventricular Rate ECG 73 BPM GEMUSE Atrial Rate 73 BPM GEMUSE P-R Interval 194 ms GEMUSE QRS Duration 90 ms GEMUSE Q-T Interval 436 ms GEMUSE QTc 480 ms GEMUSE P Wave [place] 39 degrees GEMUSE R [place] 77 degrees GEMUSE T [place] 69 degrees GEMUSE ECG Interpretation Normal sinus rhythm Normal ECG No previous ECGs available Confirmed by Roger MCKAY JAMES ([id number]) on 04/01/2025 12:30:35 PM GEMUSE 03/31/2025 10:1 0 PM EDT 04/01/2025 12:30 PM EDT Evelia Mays MD ECG ORDERABLES Final Result [facility] * Thyroid stimulating hormone with reflex to free t4 and free t3 (03/25/2025 12:57 PM EDT) TSH 1.17 0.40 - 4.00 mcIU/mL LAB CHEMISTRY METHOD 03/25/2025 7:08 PM EDT [facility] Blood Venous blood specimen / Unknown Venipuncture / Unknown 03/25/2025 12:57 PM EDT 03/25/2025 12:57 PM EDT Wale Pimentel DENTAL CERAMIST LAB BLOOD ORDERABLES Final Re sult Performing Organization Address [facility] Co de Phone Number [facility] [address] [place] [address], [place] [phone] * Hemoglobin A1c (03/25/2025 12:57 PM EDT) Pathologist [facility] Hemoglobin A1C 5.5 <6.5 % LAB CHEMISTRY METHOD 03/25/2025 10:12 PM EDT [facility] Mean Bld Glu Estim. 111 mg/dL LAB CHEMISTRY METHOD 03/25/2025 10:12 PM EDT [facility] Blood Venous blood specimen / Unknown Venipuncture / Unknown 03/25/2025 12:57 PM EDT 03/25/2025 12:57 PM EDT Wale Pimentel DENTAL CERAMIST LAB BLOOD ORDERABLES Final Re sult Performing Organization Address [facility]/ZIP Co de Phone Number [facility] [address] [place] [address], [place] [phone] * CT Lung Screening (12/30/2024 3:36 PM EDT) Anatomical Region Laterality Modality Chest Computed Tomogra phy 12/31/2024 10:0 7 AM EDT Impressions 12/31/2024 10:19 AM EDT Impression: Endotracheal nodular soft tissue, possibly mucous, with a true soft tissue nodule not excluded. Follow-up low-dose CT recommended in 3 months. Lung-RADS Category: Lung-RADS 4A: Suspicious nodule(s). Recommend follow up with Low Dose Chest CT in 3 months. Telerad HALLEY ([id number]) -------- FINAL REPORT -------- Dictated By: Berta Mock Dictated Date: 12/31/2024 10:07 ET Assigned Physician: Berta Mock Reviewed and Electronically Signed By: Berta Mock Signed Date: 12/31/2024 10:19 ET Workstation ID: [id number] Transcribed By: Self Edit Transcribed Date: 12/31/2024 10:07 ET Narrative 12/31/2024 10:19 AM EDT History: 64 year-old 23 pack-year current smoker, asymptomatic, for lung cancer screening. Comparison: 06/24/24 ([facility], [place], [place]) Technique: Helical volumetric imaging of the thorax was performed, using low- dose technique, without IV contrast. DLP: 155.82 mGy/cm CTDIvol: 4.89 mGy Forensic Logicer Iterative reconstruction technique Findings: Lungs and Airways: The right hemidiaphragm remains elevated, with bandlike opacities in the right upper, middle and lower lobes, abutting the elevated diaphragm, unchanged, compatible with atelectasis. The trachea and central bronchial tree remain patent. There is lobulated, low- density material within the distal trachea, abutting the right lateral wall, most likely representing mucus (image 80 series 3). A true soft tissue nodule is felt to be less likely but is not excluded. Solid, noncalcified pulmonary nodules include a 3 mm right upper lobe nodule (image 49 series 3), a 3 mm right upper lobe nodule (image 57), a 4 mm juxtafissural left lower lobe nodule (image 109), and a 3 mm juxtafissural nodule in the left lower lobe (image 90), without significant change. Pleura: No pleural or pericardial effusions are seen. Base of neck, mediastinum and heart: The heart remains normal in size. Minimal atherosclerotic calcification of the aorta is noted. No developing thoracic lymphadenopathy is seen. Soft tissues: The overlying soft tissues are unremarkable. Abdomen: This study was performed without contrast and with lower than standard dose. These factors reduce the sensitivity for detection of small lesions in the upper abdomen. Cholecystectomy clips are noted. 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 Multiple old, healed left rib fractures are seen. Pal Jaramillo MD IMG CT PROCEDURES Final Result * MG Mammo Digital Diagnostic w Adán Right (12/16/2024 10:11 AM EDT) Anatomical Region Laterality Modality Breast Right Mammography 12/16/2024 10:0 2 AM EDT Impressions 12/16/2024 10:12 AM EDT Stable intramammary lymph node. Return to routine screening is recommended. BI-RADS CATEGORY: Mammography: 2 - BENIGN Ultrasound: 2 - BENIGN RECOMMENDATIONS: Screening bilateral mammogram is recommended in 1 year. Mammo Location: [facility], [address] [place] [address], [id number], . -------- FINAL REPORT -------- Dictated By: Jacki Gayle Dictated Date: 12/16/2024 10:02 ET Assigned Physician: Jacki Gayle Reviewed and Electronically Signed By: Jacki Gayle Signed Date: 12/16/2024 10:12 ET Workstation ID: [id number] Transcribed By: Self Edit Transcribed Date: 12/16/2024 10:02 ET Narrative 12/16/2024 10:12 AM EDT CLINICAL: 64 years old, Female, presents for six-month follow-up of the right breast. COMPARISON: 03/12/2024 and right breast ultrasound 04/07/2024 FINDINGS: MAMMOGRAPHY TECHNIQUE: Unilateral right MLO and CC views were obtained digitally with 3-D mammogram (digital breast tomosynthesis). Computer-aided detection was utilized in evaluation of this exam (CAD). Stable oval circumscribed mass in the right upper outer breast. There is no evidence of suspicious mass or architectural distortion. No worrisome calcifications are evident. There has been no significant change from prior exam(s). BREAST DENSITY: B - There are scattered areas of fibroglandular density. ULTRASOUND TECHNIQUE: Ultrasound survey evaluation of the right breast was performed. Targeted ultrasound of the right breast at 9-10 o'clock 9 cm from the nipple demonstrates a stable 5 mm intramammary lymph node. Procedure Note Jacki Gayle MD - 12/16/2024 CLINICAL: 64 years old, Female, presents for six-month follow-up of theright breast. COMPARISON: 03/12/2024 and right breast ultrasound 04/07/2024 FINDINGS: MAMMOGRAPHY TECHNIQUE: Unilateral right MLO and CC views were obtained digitally with3-D mammogram (digital breast tomosynthesis). Computer-aided detection wasutilized in evaluation of this exam (CAD). Stable oval circumscribed mass in the right upper outer breast. There isno evidence of suspicious mass or architectural distortion. No worrisomecalcifications are evident. There has been no significant change fromprior exam(s). BREAST DENSITY: B - There are scattered areas of fibroglandular density. ULTRASOUND TECHNIQUE: Ultrasound survey evaluation of the right breast wasperformed. Targeted ultrasound of the right breast at 9-10 o'clock 9 cm from thenipple demonstrates a stable 5 mm intramammary lymph node. IMPRESSION: Stable intramammary lymph node. Return to routine screening isrecommended. BI-RADS CATEGORY: Mammography: 2 - BENIGN Ultrasound: 2 - BENIGN RECOMMENDATIONS: Screening bilateral mammogram is recommended in 1 year. Mammo Location: [facility], [address] [place] [address], [id number], . -------- FINAL REPORT -------- Dictated By: Jacki Gayle Dictated Date: 12/16/2024 10:02 ET Assigned Physician: Jacki Gayle Reviewed and Electronically Signed By: Jacki Gayle Signed Date: 12/16/2024 10:12 ET Workstation ID: [id number] Transcribed By: Self Edit Transcribed Date: 12/16/2024 10:02 ET Wale Pimentel NP IMG BI PROCEDURES Final Resul t * COLONOSCOPY Anesthesia - MAC; SP ENDOSCOPY (12/09/2024 11:13 AM EDT) Anatomical Region Laterality Modality Endoscopy 12/09/2024 11:0 1 AM EDT Impressions 12/09/2024 11:12 AM EDT - Preparation of the colon was poor. - Stool in the entire examined colon. - No specimens collected. Recommendation: - Discharge patient to home. - Repeat colonoscopy at the next available appointment because the bowel preparation was suboptimal. Narrative 12/09/2024 11:12 AM EDT [facility] GI Patient Name: Lucila Cruz Procedure Date: 12/09/2024 11:01 AM Date of : 1960 Age: 64 Gender: Female Note Status: Finalized Attending MD: Rambo Barlow MD, Procedure Date No Time: 12/09/2024 Procedure: Colonoscopy Indications: Evaluation of unexplained GI bleeding presenting with Hematochezia Providers: Rambo Barlow MD Referring MD: Rambo Barlow MD Medicines: Monitored Anesthesia Care Estimated Blood Loss: Estimated blood loss: none. Procedure: Pre-Anesthesia Assessment: - Prior to the procedure, a History and Physical was performed, and patient medications and allergies were reviewed. The patient is competent. The risks and benefits of the procedure and the sedation options and risks were discussed with the patient. All questions were answered and informed consent was obtained. Patient identification and proposed procedure were verified by the physician, the nurse, the traveling phlebotomist and the weight reducing technician in the pre-procedure area in the endoscopy suite. Mental Status Examination: alert and oriented. Airway Examination: normal oropharyngeal airway and neck mobility. Respiratory Examination: clear to auscultation. CV Examination: normal. Prophylactic Antibiotics: The patient does not require prophylactic antibiotics. Prior Anticoagulants: The patient has taken no anticoagulant or antiplatelet agents. ASA Grade Assessment: III - A patient with severe systemic disease. After reviewing the risks and benefits, the patient was deemed in satisfactory condition to undergo the procedure. The anesthesia plan was to use monitored anesthesia care (MAC). Immediately prior to administration of medications, the patient was re-assessed for adequacy to receive sedatives. The heart rate, respiratory rate, oxygen saturations, blood pressure, adequacy of pulmonary ventilation, and response to care were monitored throughout the procedure. The physical status of the patient was re-assessed after the procedure. After I obtained informed consent, the scope was passed under direct vision. Throughout the procedure, the patient's blood pressure, pulse, and oxygen saturations were monitored continuously. The Colonoscope was introduced through the anus with the intention of advancing to the cecum. The scope was advanced to the sigmoid colon before the procedure was aborted. Medications were given. The colonoscopy was performed without difficulty. The patient tolerated the procedure well. The quality of the bowel preparation was poor. Findings: The perianal and digital rectal examinations were normal. A moderate amount of solid stool was found in the entire colon, precluding visualization. Procedure Code(s): --- Professional --- 92140, 53, Colonoscopy, flexible; diagnostic, including collection of specimen(s) by brushing or washing, when performed (separate procedure) Diagnosis Code(s): --- Professional --- K92.1, Melena (includes Hematochezia) CPT copyright 2020 [employer]. All rights reserved. The codes documented in this report are preliminary and upon product scientist review may be revised to meet current compliance requirements. Rambo Barlow MD 12/09/2024 11:12:03 AM This report has been signed electronically.Rambo Barlow MD Number of Addenda: 0 Note Initiated On: 12/09/2024 11:01 AM Scope In: 11:07:41 AM Scope Out: 11:09:14 AM Endoscopy Department at [facility] - [address] [place] [id number] Procedure Note Rambo Barlow MD - 12/09/2024 [facility] GI Patient Name: Lucila Cruz Procedure Date: 12/09/2024 11:01 AM Date of : 1960 Age: 64 Gender: Female Note Status: Finalized Attending MD: Rambo Barlow MD, Procedure Date No Time: 12/09/2024 Procedure: Colonoscopy Indications: Evaluation of unexplained GI bleeding presentingwith Hematochezia Providers: Rambo Barlow MD Referring MD: Rambo Barlow MD Medicines: Monitored Anesthesia Care Estimated Blood Loss: Estimated blood loss: none. Procedure: Pre-Anesthesia Assessment: - Prior to the procedure, a History and Physicalwas performed, and patient medications and allergieswere reviewed. The patient is competent. The risks and benefits of the procedure and the sedation optionsand risks were discussed with the patient. Allquestions were answered and informed consent was obtained. Patient identification and proposed procedure were verified by the physician, the nurse, theanesthetist and the weight reducing technician in the pre-procedure area in the endoscopy suite. Mental Status Examination: alertand oriented. Airway Examination: normal oropharyngeal airway and neck mobility. Respiratory Examination: clear to auscultation. CV Examination: normal. Prophylactic Antibiotics: The patient does notrequire prophylactic antibiotics. Prior Anticoagulants: The patient has taken no anticoagulant or antiplatelet agents. ASA Grade Assessment: III - A patient with severe systemic disease. After reviewing the risksand benefits, the patient was deemed in satisfactory condition to undergo the procedure. The anesthesia plan was to use monitored anesthesia care (MAC). Immediately prior to administration of medications, the patient was re-assessed for adequacy to receive sedatives. The heart rate, respiratory rate, oxygen saturations, blood pressure, adequacy of pulmonary ventilation, and response to care were monitored throughout the procedure. The physical status ofthe patient was re-assessed after the procedure. After I obtained informed consent, the scope was passed under direct vision. Throughout theprocedure, the patient's blood pressure, pulse, and oxygen saturations were monitored continuously. The Colonoscope was introduced through the anus withthe intention of advancing to the cecum. The scope was advanced to the sigmoid colon before the procedurewas aborted. Medications were given. The colonoscopywas performed without difficulty. The patient tolerated the procedure well. The quality of the bowel preparation was poor. Findings: The perianal and digital rectal examinations were normal. A moderate amount of solid stool was found in the entire colon, precluding visualization. Procedure Code(s): --- Professional --- 93506, 53, Colonoscopy, flexible; diagnostic, including collection of specimen(s) by brushing or washing, when performed (separate procedure) Diagnosis Code(s): --- Professional --- K92.1, Melena (includes Hematochezia) CPT copyright 2020 [employer]. All rights reserved. The codes documented in this report are preliminary and upon product scientist reviewmay be revised to meet current compliance requirements. Rambo Barlow MD 12/09/2024 11:12:03 AM This report has been signed electronically.Rambo Barlow MD Number of Addenda: 0 Note Initiated On: 12/09/2024 11:01 AM Scope In: 11:07:41 AM Scope Out: 11:09:14 AM Endoscopy Department at [address] [id number] IMPRESSION: - Preparation of the colon was poor. - Stool in the entire examined colon. - No specimens collected. Recommendation: - Discharge patient to home. - Repeat colonoscopy at the next availableappointment because the bowel preparation was suboptimal. Rambo Barlow MD GI~PROCEDURE ORDERABLES Fin al Result * (ABNORMAL) Lipid panel (09/26/2023) LDL/HDL Ratio 2 <=5 Triglycerides 73 <=150 mg/dL Cholesterol 89 <=200 mg/dL HDL 45(A) >=50 mg/dL LDL Cholesterol 29 <=100 mg/dL Blood Venous blood specimen / Unknown [facility] Provider LAB BLOOD ORDERABLES Claire l Result from Last 3 Months or Most Recently Relevant to Health Maintenance Insurance [employer] [place] [address] [facility] Advance Directives Documents on File Type Date Recorded Patient Behavioral Consultant Expl anation Advance Directives and Living Will 07/30/2024 3:54 PM ADV DIR-Healthcare Proxy 10.pdf Advance Directives and Living Will 07/30/2024 3:54 PM ADV DIR-MOLST 3..24.pdf * Full Code - Default (Latest Code Status on File) Date Activated Date Inactivated Comments 08/18/2024 4:31 PM 03/31/2025 9:40 PM This is orde r is used when code status has not been discussed with the patient, or code status is otherwise unknown/unconfirmed To update the patient's code status, place a code status order. Do not modify or discontinue any currently active code status orders. Care Teams Customer Program Specialist Relationship Specialty Start Date End Date Wale Pimentel NP [address] [place] [id number] PCP - General Family Medicine 05/02/24
--- OUTSIDE RECORDS SUMMARY | 2025-04-08 16:17 | XMS_ITS | Clinical Summary ---
Author Organization [employer] [facility] Address [address] [place] [address] Care Team Providers Care Twisting Frame Fixer Name Role Phone Unavailable Primary Care Provider [...] series) 06/29/2023 05/04/2023 COVID-19 Vaccine ( season) 2025 04/05/2023, 04/29/2021, [...] Most Recently Relevant to Health Maintenance Insurance [facility] MED[facility]ID STAND ADULT
--- OUTSIDE RECORDS SUMMARY | 2025-04-08 16:17 | XMS_ITS | Data Portability ---
Author Organization [place] - [facility] Address [address] [place] [id number] Care Team Providers Care Folding Machine Setter Name Role Phone JUNE RODRIGUEZ Primary Care Provider Assessment Encounter Date Assessment Date Assessment LastModified by Organization Details LastModified Time 08/01/2019 08/01/2019 Time On Scene with Patient: 00:32:21 DDX: UTI, pyelonephritis, yeast infection. No systemic signs of sepsis at this time. Pt demonstrates safety to remain home with gait and tolerating ADLs without difficulty. UA checked and concerning for UTI, Will initiate abx- with intermittent flank pain. Urine culture pending, Will proceed with treatment for vaginal yeast infection - history of same. ALso probiotics for patient given on both difluconazole and bactrim. Reasons to seek re-evaluation reviewed with pateint. [email or web address] Not available 08/01/2019 11:07:10 04/23/2020 04/23/2020 Overview/History : 59 y/o F with PMHx sig for asthma, COPD, CAD, depression, HLD, HTN, PE, and prior CVA in January 2019, known to but new to this provider who presents with c/o left foot pain, swelling, and redness x1 week. She states this happened to the right foot a while back and no cause was found and it eventually resolved on its own. She describes the pain as if someone stuck a fork in it and is dragging it and it goes straight through my foot top to bottom. The pain is constant and there is some increased warmth without pruritis. No numbness or tingling. She notes a little increased weakness from baseline and does have known foot drop on that side. No f/c, n/v. She does not worsening memory issues and is seeing neurology for this. Therefore, she cannot remember if she missed any doses of her Eliquis but seems compliant with her bubble packs. No recent injuries. She reports about 3 alcoholic beverages per week of fireball and cream soda. Exam: afebrile, RRR, normotensive, normal resps, O2 sat 97% on RA, non-toxic and well appearing. GENERAL: well developed, well nourished, appears stated age, sitting comfortably in no acute distress. RESP: normal I:E, clear to auscultation bilaterally, no wheezes, rhonchi, or rales. CARDIO: RRR, normal S1, S2, no murmurs, rubs, or gallops, radial, PT/AT/DP pulses 2+ bilaterally, cap refill in left toes 3 seconds. MUSK: left ankle with normal strength, ROM, muscle tone, no atrophy, foot diffusely TTP but more tender at the second PIP joint, b/l calves nontender. NEURO: awake, alert, oriented x3, no focal neuro deficits, moving all extremities spontaneously, normal gait slow, distal lower extremities with normal sensation to light touch bilaterally. SKIN: non-pitting edema over the left metatarsals 2-5 with slight erythema more concentrated at the left second PIP, skin intact, good turgor, no cyanosis, pallor, ecchymosis, rash, lesions, abrasions, or lacerations. DDx considered, but not limited to: DVT - low likelihood with no skipped pills in bubble pack, no calf tenderness or swelling Gout - most likely with possible history of this, etoh use, location of pain tinea - unlikely, no annular rash fracture - unlikely no JORGITO cellulitis - unlikely, no clear source of infection, afebrile, no drainage, and would expect worse erythema and calor given duration of symptoms Work up/Results: Uric acid, BMP, and CBC pending. left foot XR and venous duplex pending. Plan/Discussion: Will treat for probable acute gout flare with Prednisone 40 mg daily x5 days. First dose given on scene. Advised patient to reduce etoh intake. Will call with Xray, US, and lab results. Follow up with PCP in 3-5 days. Call [facility] if symptoms worsen or fail to improve. In order to obtain further information and compare any laboratory results/values, I have accessed old patient records. This information was pertinent in my medical decision making today. Time On Scene with Patient: 00:45:52 [email or web address] Not available 04/23/2020 14:18:06 07/09/2020 07/09/2020 Overview/History :T is a 60-year-old female that is known to [facility] but new to this provider. [facility] was contacted because the patient has been complaining of burning urination for the past 2 weeks. She denies urinary frequency and denies any flank pain. Exam: On exam patient is awake and alert, afebrile and hemodynamically stable. Lungs clear bilaterally, no CVA tenderness, no suprapubic tenderness. DDx considered, but not limited to:The patient's presentation and urinalysis is suggestive of acute urinary tract infection. As TI is also possible. Also considered cystitis and atrophic vaginitis. Work up/Results:Urinaly sis positive for 2+ blood and 1+ leukocytes, no nitrites. Urine culture is pending. Plan/Discussion:I discussed with the patient that her urinalysis is suggestive of acute urinary tract infection. She does have a history of these. I have started her on a course of Macrobid as her prior urine culture showed staph ability to this. I am sending her urine out for culture as well to ensure she is on the appropriate antibiotics. I have encouraged her to stay well hydrated and if she were no any flank pain or fevers to contact her PCP for reevaluation. The patient verbalized understanding of discharge instructions. In order to obtain further information and compare any laboratory results/values, I have accessed old patient records. This information was pertinent in my medical decision making today. Not available 07/09/2020 16:26:52 03/15/2021 03/15/2021 Time On Scene with Patient: 00:37:21 [email or web address] Not available 03/15/2021 17:52:25 06/15/2021 06/15/2021 Overview/History : Pt states she began having dysuria, frequency, and urgency yesterday am. Denies any fever, chills, nausea, or vomiting. STates last time she had these symptoms she was Dx with a UTI Exam: established pt with but new to this provider. Non-toxic appearing afebrile 60yof in mild resp distress. Resp tachypneic @ 24/min, Lungs clear, CV: tachycardic regular rhythm. Obese soft abd without guarding. BS present. No CVA tenderness. Pt does get significantly short of breath with minimal effort resp up to 32. DDx considered, but not limited to: UTI Sepsis PNeumonia Lactic acidosis DM DKA Work up/Results: HPI and PE shows that the pt is is distress but no extremis at this time Istat 8 only abnormality is a 238 glucose Istat lactate is 6.2 Urinalysis suggests possible UTI with 1+ Leukocyte esterase and 2+ blood neg for nitrites though Pt is an abdominal pain with tachycardia, tachypnea, and significantly elevated lactic acid. Plan/Discussion: I spoke with Dr. Carvajal supervisor blood donor recruiters with me today and we both agree that this pt should go to the ED for further evaluation. I spoke with the patient and explained our concerns and she is in agreement and will allow us to call EMS as she doesn't have a ride otherwise. EMS called and pt transported to [facility] In order to obtain further information and compare any laboratory results/values, I have accessed old patient records. This information was pertinent in my medical decision making today. [email or web address] Not available 06/15/2021 13:05:49 Plan of Treatment Reminders Order Date Submit Date Provider Last Modified By Organization Details Last Modified Time Details Appointments None recorded. Lab urinalysis , dipstick 2020 021 [email or web address] [facility], [address], [place], [address], 1 13:09:52 lactate, venous plasma 2020 021 [facility], [address], [place], [address], 2 05:02:17 BMP + ionized calcium, serum or plasma 2020 021 [facility], [address], [place], [address], 2 05:02:21 culture, urine 2020 021 [facility] (Centralized Electronic Ordering - All Locations), Patient Can Go To The Location Of Their Choice, [id number] 1 11:41:44 urinalysis , dipstick 2020 021 KELBY [facility], [address], [place], [address], 1 08:51:08 urinalysis , dipstick 2020 021 [email or web address] [facility], [address], [place], [address], 1 16:10:09 culture, urine - Collected by [facility] 2020 021 KEL[facility] (Centralized Electronic Ordering - All Locations), Patient Can Go To The Location Of Their Choice, [id number] 1 07:47:05 uric acid, serum or plasma 2019 [facility]EL[facility] (Centralized Electronic Ordering - All Locations), Patient Can Go To The Location Of Their Choice, [id number] 0 20:20:57 BMP, serum or plasma 2019 020 [email or web address] [facility] (Centralized Electronic Ordering - All Locations), Patient Can Go To The Location Of Their Choice, [id number] 0 11:28:45 CBC w/ auto diff 2019 KEL[facility] (Centralized Electronic Ordering - All Locations), Patient Can Go To The Location Of Their Choice, [id number] 0 19:55:12 urinalysis , dipstick 2019 020 [facility], [address], [place], [address], 0 10:35:27 culture, urine 2019 020 [facility]EL[facility] (Centralized Electronic Ordering - All Locations), Patient Can Go To The Location Of Their Choice, [id number] 0 07:30:10 Referral None recorded. Procedures None recorded. Surgeries None recorded. Imaging US, duplex, venous, extremity, unilateral /limited 2019 020 [email or web address] [facility] ([facility] [address] [place], [address], 0 18:44:50 XR, foot, 3 or more view 2019 020 [facility] ([facility]), [address], [place], [address], 0 18:32:04 Medication Orders Cipro 500 mg tablet 2020 021 [email or web address] [facility], [address] [place], [address], 1 11:43:20 Pyridium 200 mg tablet 2020 021 [email or web address] [facility], [address] [place], [address], 1 13:37:46 Macrobid 100 mg capsule 2020 021 [email or web address] [facility], [address] [place], [address], 1 17:21:36 prednisone 20 mg tablet 2019 020 [facility], [address] [place], [address], 0 13:44:51 Zofran ODT 4 mg disintegra ting tablet [email or web address] [facility]2024, [address] [place], [address], 1 17:23:41 Bactrim DS 800 mg-160 mg tablet 2019 020 [email or web address] [facility], [address] [place], [address], 0 13:16:44 Cranberry- Probiotic- Vitamin C 450 mg-30 mg-50 million cell tablet [email or web address] [facility]acy #2024, [address] [place], [address], 1 17:19:43 terconazol e 0.8 % vaginal cream 2019 020 [facility] [address] [place], [address], 0 13:16:39 fluconazol e 150 mg tablet [email or web address] [facility]2024, [address] [place], [address], 0 13:15:42 Patient TargetsNo targets recorded. Patient Instructions Encounter Date Encounter Id Patient Instructions Last Modified By Organization Details Last Modified Time 08/01/2019 [id number] bacterial vaginosis: care instructions Not available 08/01/2019 10:30:09 Female Urinary Tract Infection (UTI): Care Instructions Not available 08/01/2019 10:30:09 [facility] came to your home to evaluate you for urinary frequency, pain with urination. We checked your urine and it appears infected. We are sending the urine for culture. In the meantime we started you on Bactrim- you have been having some flank pain with this so we want you to take this for 7 days. We also sent a prescription to the pharmacy for your yeast infection- both cream and pill. There is also a prescription for probiotics.- This may not be covered by your insurance so ask the pharmacist for an over the counter recommendation that they have in the store. If you have any worsening symptoms, fevers, chills, or you feel worse, please go the Emergency department as this may mean a more serious infection and needs prompt medical attention. URINARY TRACT INFECTION INSTRUCTIONS BASIC INFORMATION Urinary tract infections(UTI) can involve any portion of the urinary tract. The most common presentation is a bladder infection/cystitis, which usually presents with urinary frequency, burning with urination, urgency, foul smelling cloudy urine and occasionally blood. Kidney infections are less frequent, but more serious, and present with fever, flank pain, malaise and sometimes shaking chills. UTI s are common in women because of the female anatomy, and much less common in males. INSTRUCTIONS Drink plenty of fluid, water is best. Drinking fluids will help to flush the bacteria from your body. Urinate every 2-3 hours Wear cotton underwear and avoid Nylon, Spandex and Lycra which tend to trap moisture and thong underwear which may facilitate UTI s . Avoid tub baths Avoid using Super Tampons Use only mild unscented soap to wash your genitals, such as Dove or Ivory, avoid heavily scented body washes. If you are sexually active urinate as soon as possible after intercourse. Yogurt and probiotics may help to establish a more healthy genital environment, and aid in prevention. MEDICATIONS 1.Antibiotics: Usually prescribed if you have a UTI, there are many different effective antibiotics available. It is important that you complete the course of antibiotics you are given. You should feel some improvement within 24-48 hours, if you do not it may be that the bacteria causing your infection is resistant to the prescribed medication. If a urine culture is obtained it will usually take at least 3-4 days to get the final result. 2. Anesthetic/Pain relievers: Phenazopyridine (Pyridium, Uribelle, AZO) is an anesthetic excreted in the urine. This medicine will turn your urine BRIGHT ORANGE! This is normal, and may stain your underwear can contacts. Take this medication as directed with food. 3. Tylenol and Ibuprofen can be helpful for the pain, fever and body aches that can be associated with a kidney infection. Please follow recommended dosing instructions on the bottle. FOLLOW UP 1. If your symptoms are not improving in 24-48 hours 2. If your symptoms are getting more severe 3. Any unusual vaginal discharge 4. Symptoms recur after you complete medication SEEK CARE IMMEDIATELY IF 1.You have shaking chills or temperature over 101.5 2. Severe flank pain 3. Persistent vomiting, unable to keep fluids or medicine down. 4. Worse despite medication. If you develop any new or worsening symptoms and need after hours care, please go to nearest ER and/or call 911. If you have additional concerns or develop a change in your condition between 8am-10pm, please call [facility] at [phone] to help navigate your care. Not available 08/01/2019 10:33:09 04/23/2020 [id number] gout: care instructions [email or web address] Not available 04/23/2020 13:45:34 [facility] swelling and pain. Unclear cause at this time but seems most consistent with an acute gout flare. I have given you your first dose of Prednisone 40 mg today. You will take this once a day in the morning for an additional 4 days. This should help your pain and swelling. You also had some blood work drawn today for a uric acid level, basic metabolic panel, and complete blood count. [facility] will call you within 24 hours to have a foot xray and ultrasound done of your left leg to check for injury and/or clot. [facility] with your [facility]. Follow up with your PCP in 3-5 days. Call [facility] if your symptoms worsen or fail to improve. [email or web address] Not available 04/23/2020 13:48:25 07/09/2020 [id number] WE CAME TO SEE Y OU TODAY WITH CONCERNS OF BURNING WITH URINATION. YOUR URINALYSIS WAS SUGGESTIVE OF INFECTION, I AM SENDING IT OUT FOR CULTURE I AM SENDING TO YOUR PHARMACY A 5 DAY COURSE OF MACROBID TO TREAT THIS PLEASE BE SURE TO DRINK PLENTY OF FLUIDS IF YOU DEVELOP FEVERS OR FLANK PAIN YOUR INFECTION MAY BE SPREADING TO YOUR KIDNEYS AND YOU WILL NEED RE EVALUATION URINARY TRACT INFECTION INSTRUCTIONS BASIC INFORMATION Urinary tract infections(UTI) can involve any portion of the urinary tract. The most common presentation is a bladder infection/cystitis, which usually presents with urinary frequency, burning with urination, urgency, foul smelling cloudy urine and occasionally blood. Kidney infections are less frequent, but more serious, and present with fever, flank pain, malaise and sometimes shaking chills. UTI s are common in women because of the female anatomy, and much less common in males. INSTRUCTIONS Drink plenty of fluid, water is best. Drinking fluids will help to flush the bacteria from your body. Urinate every 2-3 hours Wear cotton underwear and avoid Nylon, Spandex and Lycra which tend to trap moisture and thong underwear which may facilitate UTI s . Avoid tub baths Avoid using Super Tampons Use only mild unscented soap to wash your genitals, such as Dove or Ivory, avoid heavily scented body washes. If you are sexually active urinate as soon as possible after intercourse. Yogurt and probiotics may help to establish a more healthy genital environment, and aid in prevention. MEDICATIONS 1.Antibiotics: Usually prescribed if you have a UTI, there are many different effective antibiotics available. It is important that you complete the course of antibiotics you are given. You should feel some improvement within 24-48 hours, if you do not it may be that the bacteria causing your infection is resistant to the prescribed medication. If a urine culture is obtained it will usually take at least 3-4 days to get the final result. 2. Anesthetic/Pain relievers: Phenazopyridine (Pyridium, Uribelle, AZO) is an anesthetic excreted in the urine. This medicine will turn your urine BRIGHT ORANGE! This is normal, and may stain your underwear can contacts. Take this medication as directed with food. 3. Tylenol and Ibuprofen can be helpful for the pain, fever and body aches that can be associated with a kidney infection. Please follow recommended dosing instructions on the bottle. FOLLOW UP 1. If your symptoms are not improving in 24-48 hours 2. If your symptoms are getting more severe 3. Any unusual vaginal discharge 4. Symptoms recur after you complete medication SEEK CARE IMMEDIATELY IF 1.You have shaking chills or temperature over 101.5 2. Severe flank pain 3. Persistent vomiting, unable to keep fluids or medicine down. 4. Worse despite medication. If you develop any new or worsening symptoms and need after hours care, please go to nearest ER and/or call 911. If you have additional concerns or develop a change in your condition between 8am-10pm, please call [facility] at [phone] to help navigate your care. [email or web address] Not available 07/09/2020 16:11:41 06/15/2021 [id number] go to the ED for further evaluation. [email or web address] Not available 06/15/2021 13:06:23 Reason for Referral None Reported. Results Created Date Observation Date Name Description Value Unit Range Abnormal Flag Note LastModifiedBy Organization Detail LastModifiedTime 08/01/19 20 08/01/2019 urina lysis , dipst ick Appearance cloudy Not Available [facility] [address], [place], [address], 08/01/2019 10:33:44 08/01/19 20 08/01/2019 urina lysis , dipst ick Color yellow Not Available [facility] [address] [place], [address], 08/01/2019 10:33:44 08/01/19 20 08/01/2019 urina lysis , dipst ick Glucose negati ve Not Available [facility] [address], [place], [address], 08/01/2019 10:33:44 08/01/19 20 08/01/2019 urina lysis , dipst ick Bilirubin negati ve Not Available [facility] [address] [place], [address], 08/01/2019 10:33:44 08/01/19 20 08/01/2019 urina lysis , dipst ick Ketones NEG Not Available [facility] [address], [place], [address], 08/01/2019 10:33:44 08/01/19 20 08/01/2019 urina lysis , dipst ick [employer] 1.01 Not Available [facility] [address] [place], [address], 08/01/2019 10:33:44 08/01/19 20 08/01/2019 urina lysis , dipst ick Blood +++ Not Available [facility] [address] [place], [address], 08/01/2019 10:33:44 08/01/19 20 08/01/2019 urina lysis , dipst ick pH 5.0 Not Available [facility] [address] [place], [address], 08/01/2019 10:33:44 08/01/19 20 08/01/2019 urina lysis , dipst ick Protein negati ve Not Available [facility] [address], [place], [address], 08/01/2019 10:33:44 08/01/19 20 08/01/2019 urina lysis , dipst ick Urobilirubin negati ve Not Available [facility] [address], [place], [address], 08/01/2019 10:33:44 08/01/19 20 08/01/2019 urina lysis , dipst ick Nitrites +++ Not Available [facility] [address], [place], [address], 08/01/2019 10:33:44 08/01/19 20 08/01/2019 urina lysis , dipst ick Leukocytes + Not Available [facility] [address], [place], [address], 08/01/2019 10:33:44 08/01/19 20 08/02/2019 cultu re, urine specimen description URINE Not Available [facility] ([facility] Order[facility] - All Locations) Patient Can Go To The Location Of Their Choice, 08/04/2019 07:30:10 08/01/1908/02/2019 cultu re, urine special requests NONE Not Available [facility] (Centralized [facility] Ordering - All Locations) Patient Can Go To The Location Of Their Choice, 08/04/2019 07:30:10 08/01/1908/04/2019 cultu re, urine culture >100,0 00 COL/ML ESCHER ICHIA COLI abnormal Not Available [facility] (Centralized Electronic Ordering - All Locations) Patient Can Go To The Location Of Their Choice, 08/04/2019 07:30:10 08/01/1908/04/2019 cultu re, urine report status FINAL 2019 Not Available [facility] (Centralized Electronic Ordering - All Locations) Patient Can Go To The Location Of Their Choice, 08/04/2019 07:30:10 08/01/1908/04/2019 cultu re, urine organism ORGANI SM >100,0 00 COL/ML ESCHER ICHIA COLI Not Available [facility] (Centralized Electronic Ordering - All Locations) Patient Can Go To The Location Of Their Choice, 08/04/2019 07:30:10 08/01/1908/04/2019 cultu re, urine method METHOD MIN. INHIB. CONC. (MCG/M L) Not Available [facility] (Centralized Electronic Ordering - All Locations) Patient Can Go To The Location Of Their Choice, 08/04/2019 07:30:10 08/01/1908/04/2019 cultu re, urine ampicillin AMPICI LLIN SUSCEP TIBLE susceptib le Not Available [facility] (Centralized Electronic Ordering - All Locations) Patient Can Go To The Location Of Their Choice, 08/04/2019 07:30:10 08/01/1908/04/2019 cultu re, urine ampicillin/s ulbactam AMPICI LLIN/S ULBACT AM SUSCEP TIBLE susceptib le Not Available [facility] (Centralized Electronic Ordering - All Locations) Patient Can Go To The Location Of Their Choice, 08/04/2019 07:30:10 08/01/1908/04/2019 cultu re, urine amoxicillin/ clavulanic acid AMOXIC ILLIN/ CLAVUL AN SUSCEP TIBLE susceptib le Not Available [facility] (Centralized Electronic Ordering - All Locations) Patient Can Go To The Location Of Their Choice, 08/04/2019 07:30:10 08/01/1908/04/2019 cultu re, urine cefazolin CEFAZO XU SUSCEP TIBLE susceptib le Not Available [facility] (Centralized Electronic Ordering - All Locations) Patient Can Go To The Location Of Their Choice, 08/04/2019 07:30:10 08/01/1908/04/2019 cultu re, urine cefepime CEFEPI ME SUSCEP TIBLE susceptib le Not Available [facility] (Centralized Electronic Ordering - All Locations) Patient Can Go To The Location Of Their Choice, 08/04/2019 07:30:10 08/01/1908/04/2019 cultu re, urine ceftriaxone CEFTRI AXONE SUSCEP TIBLE susceptib le Not Available [facility] (Centralized Electronic Ordering - All Locations) Patient Can Go To The Location Of Their Choice, 08/04/2019 07:30:10 08/01/1908/04/2019 cultu re, urine ciprofloxaci n CIPROF LOXACI N SUSCEP TIBLE susceptib le Not Available [facility] (Centralized Electronic Ordering - All Locations) Patient Can Go To The Location Of Their Choice, 08/04/2019 07:30:10 08/01/1908/04/2019 cultu re, urine gentamicin GENTAM ICIN SUSCEP TIBLE susceptib le Not Available [facility] (Centralized Electronic Ordering - All Locations) Patient Can Go To The Location Of Their Choice, 08/04/2019 07:30:10 08/01/1908/04/2019 cultu re, urine levofloxacin LEVOFL OXACIN SUSCEP TIBLE susceptib le Not Available [facility] (Centralized Electronic Ordering - All Locations) Patient Can Go To The Location Of Their Choice, 08/04/2019 07:30:10 08/01/1908/04/2019 cultu re, urine meropenem MEROPE NEM SUSCEP TIBLE susceptib le Not Available [facility] (Centralized Electronic Ordering - All Locations) Patient Can Go To The Location Of Their Choice, 08/04/2019 07:30:10 08/01/1908/04/2019 cultu re, urine nitrofuranto in NITROF URANTO IN SUSCEP TIBLE susceptib le Not Available [facility] (Centralized Electronic Ordering - All Locations) Patient Can Go To The Location Of Their Choice, 08/04/2019 07:30:10 08/01/1908/04/2019 cultu re, urine piperacillin /tazobactam PIPERA CILLIN /TAZOB AC SUSCEP TIBLE susceptib le Not Available [facility] (Centralized Electronic Ordering - All Locations) Patient Can Go To The Location Of Their Choice, 08/04/2019 07:30:10 08/01/1908/04/2019 cultu re, urine trimeth/sulf amethox TRIMET H/SULF AMETHO X RESIST ANT resistant Not Available [facility] (Centralized Electronic Ordering - All Locations) Patient Can Go To The Location Of Their Choice, 08/04/2019 07:30:10 08/01/1908/04/2019 cultu re, 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 Not Available [facility] (Centralized Electronic Ordering - All Locations) Patient Can Go To The Location Of Their Choice, 08/04/2019 07:30:10 04/23/2004/23/2020 CBC w/ auto diff WBC 8.0 K/mm3 (4.0-1 1.0) Not Available [facility] (Centralized Electronic Ordering - All Locations) Patient Can Go To The Location Of Their Choice, 04/23/2020 19:55:12 04/23/2004/23/2020 CBC w/ auto diff RBC 4.79 M/mm3 (4.20- 5.40) Not Available [facility] (Centralized Electronic Ordering - All Locations) Patient Can Go To The Location Of Their Choice, 04/23/2020 19:55:12 04/23/2004/23/2020 CBC w/ auto diff HGB 15.0 gm/dL (11.7- 15.5) Not Available [facility] (Centralized Electronic Ordering - All Locations) Patient Can Go To The Location Of Their Choice, 04/23/2020 19:55:12 04/23/2004/23/2020 CBC w/ auto diff HCT 46.6 % (35.7- 45.8) high Not Available [facility] (Centralized Electronic Ordering - All Locations) Patient Can Go To The Location Of Their Choice, 04/23/2020 19:55:12 04/23/2004/23/2020 CBC w/ auto diff MCV 97.3 fL (80.0- 100.0) Not Available [facility] (Centralized Electronic Ordering - All Locations) Patient Can Go To The Location Of Their Choice, 04/23/2020 19:55:12 04/23/2004/23/2020 CBC w/ auto diff MCH 31.3 pg (27.0- 34.0) Not Available [facility] (Centralized Electronic Ordering - All Locations) Patient Can Go To The Location Of Their Choice, 04/23/2020 19:55:12 04/23/2004/23/2020 CBC w/ auto diff MCHC 32.2 g/dL (33.0- 37.0) low Not Available [facility] (Centralized Electronic Ordering - All Locations) Patient Can Go To The Location Of Their Choice, 04/23/2020 19:55:12 04/23/2004/23/2020 CBC w/ auto diff plt 227 K/mm3 (150-4 60) Not Available [facility] (Centralized Electronic Ordering - All Locations) Patient Can Go To The Location Of Their Choice, 04/23/2020 19:55:12 04/23/2004/23/2020 CBC w/ auto diff RDW-SD 48.2 fL (<47.0 ) high Not Available [facility] (Centralized Electronic Ordering - All Locations) Patient Can Go To The Location Of Their Choice, 04/23/2020 19:55:12 04/23/2004/23/2020 CBC w/ auto diff MPV 12.2 fL (9.4-1 2.4) Not Available [facility] (Centralized Electronic Ordering - All Locations) Patient Can Go To The Location Of Their Choice, 04/23/2020 19:55:12 04/23/2004/23/2020 CBC w/ auto diff automated NRBC 0.0 #/100 _WBC' s Not Available [facility] (Centralized Electronic Ordering - All Locations) Patient Can Go To The Location Of Their Choice, 04/23/2020 19:55:12 04/23/2004/23/2020 CBC w/ auto diff abs. NRBC 0.0 K/mm3 Not Available [facility] (Centralized Electronic Ordering - All Locations) Patient Can Go To The Location Of Their Choice, 04/23/2020 19:55:12 04/23/2004/23/2020 CBC w/ auto diff neut # 4.4 K/mm3 (1.3-7 .0) Not Available [facility] (Centralized Electronic Ordering - All Locations) Patient Can Go To The Location Of Their Choice, 04/23/2020 19:55:12 04/23/2004/23/2020 CBC w/ auto diff lymph # 2.4 K/mm3 (0.8-3 .1) Not Available [facility] (Centralized Electronic Ordering - All Locations) Patient Can Go To The Location Of Their Choice, 04/23/2020 19:55:12 04/23/2004/23/2020 CBC w/ auto diff mono# 0.9 K/mm3 (0.4-0 .9) Not Available [facility] (Centralized Electronic Ordering - All Locations) Patient Can Go To The Location Of Their Choice, 04/23/2020 19:55:12 04/23/2004/23/2020 CBC w/ auto diff eo # 0.2 K/mm3 (0.0-0 .4) Not Available [facility] (Centralized Electronic Ordering - All Locations) Patient Can Go To The Location Of Their Choice, 04/23/2020 19:55:12 04/23/2004/23/2020 CBC w/ auto diff baso # 0.0 K/mm3 (0.0-0 .1) Not Available [facility] (Centralized Electronic Ordering - All Locations) Patient Can Go To The Location Of Their Choice, 04/23/2020 19:55:12 04/23/2004/23/2020 CBC w/ auto diff abs. imm gran 0.0 K/mm3 Not Available [facility] ([facility] Ordering - All Locations) Patient Can Go To The Location Of Their Choice, 04/23/2020 19:55:12 04/23/2004/23/2020 CBC w/ auto diff neut 54.9 % (44-76 ) Not Available [facility] (Centralized Electronic Ordering - All Locations) Patient Can Go To The Location Of Their Choice, 04/23/2020 19:55:12 04/23/2004/23/2020 CBC w/ auto diff lymph 30.6 % (15-43 ) Not Available [facility] (Centralized Electronic Ordering - All Locations) Patient Can Go To The Location Of Their Choice, 04/23/2020 19:55:12 04/23/2004/23/2020 CBC w/ auto diff monocyte 11.6 % (4.5-1 0.5) high Not Available [facility] (Centralized Electronic Ordering - All Locations) Patient Can Go To The Location Of Their Choice, 04/23/2020 19:55:12 04/23/2004/23/2020 CBC w/ auto diff eo 2.1 % (0-6) Not Available [facility] (Centralized Electronic Ordering - All Locations) Patient Can Go To The Location Of Their Choice, 04/23/2020 19:55:12 04/23/2004/23/2020 CBC w/ auto diff baso 0.5 % (0-2) Not Available [facility] (Centralized Electronic Ordering - All Locations) Patient Can Go To The Location Of Their Choice, 04/23/2020 19:55:12 04/23/2004/23/2020 CBC w/ auto diff imm gran 0.3 % Not Available [facility] (Centralized Electronic Ordering - All Locations) Patient Can Go To The Location Of Their Choice, [facility] 04/23/2020 19:55:12 04/23/20 20 04/23/2020 uric acid, serum or plasm a uric acid 5.6 mg/dL (1.6-7 .6) Not Available [facility] (Centralized Electronic Ordering - All Locations) Patient Can Go To The Location Of Their Choice, [facility] 04/23/2020 20:20:57 07/09/1907/09/2020 cultu re, urine specimen description URINE CLEAN CATCH/ MIDSTR EAM Not Available [facility] (Centralized Electronic Ordering - All Locations) Patient Can Go To The Location Of Their Choice, [facility] 07/11/2020 07:47:05 07/09/1907/09/2020 cultu re, urine special requests NONE Not Available [facility] ([facility] Ordering - All Locations) Patient Can Go To The Location Of Their Choice, [facility] 07/11/2020 07:47:05 07/09/1907/11/2020 cultu re, urine culture <10,00 0 COL/ML abnormal Not Available [facility] (Centralized Electronic Ordering - All Locations) Patient Can Go To The Location Of Their Choice, [facility] 07/11/2020 07:47:05 07/09/1907/11/2020 cultu re, urine report status FINAL 2020 Not Available [facility] (Centralized Electronic Ordering - All Locations) Patient Can Go To The Location Of Their Choice, [facility] 07/11/2020 07:47:05 07/09/1907/09/2020 urina lysis , dipst ick Appearance cloudy Not Available [facility] [address], [place], [address], 07/09/2020 15:54:20 07/09/19 21 07/09/2020 urina lysis , dipst ick Color dark yellow Not Available Spr - Home [address], [place], [address], 07/09/2020 15:54:20 07/09/19 21 07/09/2020 urina lysis , dipst ick Glucose negati ve Not Available Spr - Home [address] [place], [address], 07/09/2020 15:54:20 07/09/19 21 07/09/2020 urina lysis , dipst ick Bilirubin negati ve Not Available Spr - Home [address] [place], [address], 07/09/2020 15:54:20 07/09/19 21 07/09/2020 urina lysis , dipst ick Ketones NEG Not Available Spr - Home [address] [place], [address], 07/09/2020 15:54:20 07/09/19 21 07/09/2020 urina lysis , dipst ick Sp. [employer] 1.025 Not Available [facility] - Home [address] [place], [address], 07/09/2020 15:54:20 07/09/19 21 07/09/2020 urina lysis , dipst ick Blood ++ Not Available [facility] - [address] [place], [address], 07/09/2020 15:54:20 07/09/19 21 07/09/2020 urina lysis , dipst ick pH 6.0 Not Available Spr - Home [address] [place], [address], 07/09/2020 15:54:20 07/09/19 21 07/09/2020 urina lysis , dipst ick Protein positi ve Not Available Spr - Home [address] [place], [address], 07/09/2020 15:54:20 07/09/19 21 07/09/2020 urina lysis , dipst ick Urobilirubin positi ve Not Available [facility] - [address] [place], [address], 07/09/2020 15:54:20 07/09/19 21 07/09/2020 urina lysis , dipst ick Nitrites NEG Not Available [facility] - [place] [address], [place], [address], 07/09/2020 15:54:20 07/09/19 21 07/09/2020 urina lysis , dipst ick Leukocytes + Not Available [facility] - [facility] [address], [place], [address], 07/09/2020 15:54:20 03/15/20 21 03/16/2021 URINE CULTU RE specimen description URINE Not Available [facility] ([facility] Order[facility] - All Locations) Patient Can Go To The Location Of Their Choice, [facility] 03/17/2021 11:41:44 03/15/20 21 03/16/2021 URINE CULTU RE special requests NONE Not Available [facility] (Centralized [facility] Ordering - All Locations) Patient Can Go To The Location Of Their Choice, [facility] 03/17/2021 11:41:44 03/15/20 21 03/17/2021 URINE CULTU RE culture NO GROWTH Not Available [facility] (Centralized Electronic Ordering - All Locations) Patient Can Go To The Location Of Their Choice, [facility] 03/17/2021 11:41:44 03/15/20 21 03/17/2021 URINE CULTU RE report status FINAL 2020 Not Available [facility] (Centralized Electronic Ordering - All Locations) Patient Can Go To The Location Of Their Choice, [facility] 03/17/2021 11:41:44 03/31/20 21 03/31/2021 urina lysis , dipst ick Location [facility], [address], [place] [address], [phone] Not Available Spr - Home [address], [place], [address], 03/15/2021 17:54:17 06/15/20 21 06/15/2021 urina lysis , dipst ick Appearance clear Not Available [facility] - [facility] [address] [place], [address], 06/15/2021 12:04:22 06/15/20 21 06/15/2021 urina lysis , dipst ick Color andrea Not Available [facility] - [place] [address], [place], [address], 06/15/2021 12:04:22 06/15/20 21 06/15/2021 urina lysis , dipst ick Glucose (ref: neg) Neg Not Available Spr - Home [address] [place], [address], 06/15/2021 12:04:22 06/15/2006/15/2021 urina lysis , dipst ick Bilirubin (ref: neg) Neg Not Available [facility] - [place] [address] [place], [address], 06/15/2021 12:04:22 06/15/20 21 06/15/2021 urina lysis , dipst ick Ketones (ref: neg) Neg Not Available [facility] - [place] [address], [place], [address], 06/15/2021 12:04:22 06/15/20 21 06/15/2021 urina lysis , dipst ick Specific [employer] (ref: 1.003 - 1.035) 1.025 Not Available [facility] - [place] [address] [place], [address], 06/15/2021 12:04:22 06/15/2006/15/2021 urina lysis , dipst ick Blood (ref: neg) ++ Not Available [facility] [place] [address] [place], [address], 06/15/2021 12:04:22 06/15/20 21 06/15/2021 urina lysis , dipst ick pH (ref: 5-7) 5.0 Not Available [facility] - [place] [address] [place], [address], 06/15/2021 12:04:22 06/15/20 21 06/15/2021 urina lysis , dipst ick Protein (ref: neg) Neg Not Available [facility] - [address] [place], [address], 06/15/2021 12:04:22 06/15/20 21 06/15/2021 urina lysis , dipst ick Urobili 0 Not Available Spr - [address] [place], [address], 06/15/2021 12:04:22 06/15/20 21 06/15/2021 urina lysis , dipst ick Nitrites (ref: neg) negati ve Not Available Spr - [address] [place], [address], 06/15/2021 12:04:22 06/15/20 21 06/15/2021 urina lysis , dipst ick Leukocytes (ref: neg) Not Available [facility] - Home [address] [place], [address], 06/15/2021 12:04:22 06/15/20 21 06/15/2021 urina lysis , dipst ick Location [facility], [address] [place] [address], [phone] Not Available [facility] - Home [address] [place], [address], 06/15/2021 12:04:22 06/15/20 21 06/15/2021 BMP + IONIZ ED CALCI UM, SERUM OR PLASM A glu 237 mg/dL 70-105 Not Available [facility] [address] [place], [address], 06/15/2021 12:17:50 06/15/20 21 06/15/2021 BMP + IONIZ ED CALCI UM, SERUM OR PLASM A BUN 9 mg/dL 8-26 Not Available [facility] [address] [facility] [place], [address], 06/15/2021 12:17:50 06/15/20 21 06/15/2021 BMP + IONIZ ED CALCI UM, SERUM OR PLASM A crea 0.9 mg/dL 0.6-1. 3 Not Available [address], [address], 06/15/2021 12:17:50 06/15/20 21 06/15/2021 BMP + IONIZ ED CALCI UM, SERUM OR PLASM A Na 138 mmol/ L 138-14 6 Not Available [address], [address], 06/15/2021 12:17:50 06/15/20 21 06/15/2021 BMP + IONIZ ED CALCI UM, SERUM OR PLASM A K 3.7 mmol/ L 3.5-4. 9 Not Available [address], [address], 06/15/2021 12:17:50 06/15/20 21 06/15/2021 BMP + IONIZ ED CALCI UM, SERUM OR PLASM A cL 99 mmol/ L 98-109 Not Available [address], [address], 06/15/2021 12:17:50 06/15/20 21 06/15/2021 BMP + IONIZ ED CALCI UM, SERUM OR PLASM A TCO2 25 mmol/ L 24-29 Not Available [address], [address], 06/15/2021 12:17:50 06/15/20 21 06/15/2021 BMP + IONIZ ED CALCI UM, SERUM OR PLASM A angap 18 mmol/ L 10-20 Not Available [address], [address], 06/15/2021 12:17:50 06/15/20 21 06/15/2021 BMP + IONIZ ED CALCI UM, SERUM OR PLASM A ica 1.12 mmol/ L 1.12-1 .32 Not Available [facility] [address] [place], [address], 06/15/2021 12:17:50 06/15/20 21 06/15/2021 BMP + IONIZ ED CALCI UM, SERUM OR PLASM A HCT 47 %pcv 38-51 Not Available [facility] [address] [place], [address], 06/15/2021 12:17:50 06/15/20 21 06/15/2021 BMP + IONIZ ED CALCI UM, SERUM OR PLASM A Hb 16.0 g/dL 12-17 Not Available [address], [address], 06/15/2021 12:17:50 06/15/20 21 06/15/2021 CG4+ ISTAT lac 6.21 mmol/ L 0.9-1. 7 Not Available [address], [address], 06/15/2021 12:16:37 04/23/20 20 04/23/2020 foot compl ete, min 3V FOOT COMPLE TE, MIN 3V, LEFT FINDIN GS: The ossifi cation is normal for left foot includ ing the tarsal bones. There is no fractu re, disloc ation, or soft tissue swelli ng seen. No osteom yeliti s is seen. CONCLU RICO: Normal left foot. ELECTR ONICAL LY SIGNED BY BRITTON PEREZ M.D. 2019 4:07:1 9 PM EDT. FOOT COMPLE TE, MIN 3V, LEFT Result s: The ossifi cation is normal for left foot includ ing the tarsal bones. There is no fractu re, disloc ation, or soft tissue swelli ng seen. No osteom yeliti s is seen. Conclu rico: Normal left foot. Electr onical ly signed by BRITTON PEREZ M.D. 2019 4:07:1 9 PM EDT. [email or web address] [facility] ([facility]) [address], [place], [place], [address], 04/24/2020 16:45:56 Result Notes None recorded. Problems Name Problem SNOMED Code Status Onset Date Resolution Date Notes Provider Name and Address Organization Details Recorded Time Hyperlipidemi a 25798045 Active 2019 [place] DIAS [address] [place], [address], [place] [facility] 0 13:13:16 Problem Notes None recorded. Procedures Surgical History Date Name Laterality Status Provider Name and Address Organization Details Recorded Time 021 Venipuncture - DH completed Raji King NP [address] [place], [address], [place] [facility] 06/20/2021 20:52:19 020 Venipuncture - completed [place] DI[place] [address] [place], [address], [place] [facility] 04/23/2020 14:06:53 cholecystectomy completed MADELYN QUIROZ NP [address] [place], [address], [place] [facility] 08/01/2019 10:20:52 section completed MADELYN QUIROZ NP [address] [place], [address], [place] [facility] 08/01/2019 10:21:17 excision of lymph node completed MADELYN QUIROZ NP [address] [place], [address], [place] [facility] 08/01/2019 10:21:30 procedure on elbow completed MADELYN QUIROZ NP [address] [place], [address], [place] [facility] 08/01/2019 10:21:41 Imaging Results None recorded. Procedure Notes None recorded. Medical Equipment None Reported. Allergies Allergen ID Allergen Name Allergen Category Reaction Reaction Severity Criticality Documentation Date Start Date Code Code System Note Provider Name and Address Organization Details Recorded Time 916930 Cipro medicatio n Not available Not available Not available 06/15/2021 73377 3 RxNorm Raji King, TAYA [address], [facility] [place], [address], [place] [facility] 1 11:43:04 85158 Product containin g penicilli n (product) medicatio n Not available Not available Not available 08/01/2019 02911 8001 SNOMED MADELYN QUIROZ NP [address], [facility] [place], [address], [place] [facility] 0 10:14:20 Medications Name Sig Start Date Stop Date Status Note LastModified by Organization Details LastModified Time cyclobenzap rine 10 mg tablet active Not Available Not Available Not Available terconazole 0.4 % vaginal cream 04/23 completed Not Available Not Available Not Available atorvastati n 80 mg tablet active Not Available Not Available Not Available prednisone 10 mg tablet active Not Available Not Available Not Available ipratropium 0.5 mg-albutero l 3 mg (2.5 mg base)/3 mL nebulizatio n soln active Not Available Not Available Not Available Carafate 100 mg/mL oral suspension active Not Available Not Available N ot Available quetiapine 300 mg tablet 03/15 completed Not Available Not Available Not Available triamcinolo ne acetonide 0.5 % topical cream active Not Available Not Available Not Available oxybutynin chloride ER 10 mg tablet,exte nded release 24 hr 03/15 completed Not Available Not Available Not Available fluconazole 150 mg tablet Take 1 tablet by oral route. active Not Available Not Available No t Available sucralfate 1 gram tablet active Not Available Not Available Not Available prednisone 20 mg tablet Take 2 tablets every day by oral route in the morning for 4 days. active Not Available Not Available No t Available clonazepam 0.5 mg tablet 03/15 completed Not Available Not Available Not Available quetiapine 200 mg tablet active Not Available Not Available Not Available terconazole 0.8 % vaginal cream Insert 1 applicato rful every day by vaginal route as directed for 7 days. active Not Available Not Available No t Available Pyridium 200 mg tablet Take 1 tablet 3 times a day by oral route as directed for 2 days. 2020 active Not Available Not Available Not Avai lable potassium chloride ER 10 mEq tablet,exte nded release active Not Available Not Available Not Available ciprofloxac in 250 mg tablet 04/23 completed Not Available Not Available Not Available nizatidine 300 mg capsule 04/23 completed Not Available Not Available Not Available ciprofloxac in 500 mg tablet Take 1 tablet every 12 hours by oral route as directed for 7 days. 06/15 completed Not Available Not Available Not Available sulfamethox azole 800 mg-trimetho prim 160 mg tablet TAKE 1 TABLET BY MOUTH EVERY 12 HOURS FOR 7 DAYS 04/23 completed Not Available Not Available Not Available Nicotrol 10 mg inhalation cartridge active Not Available Not Available No t Available quetiapine 100 mg tablet 03/15 completed Not Available Not Available Not Available famotidine 20 mg tablet active Not Available Not Available Not Available lorazepam 0.5 mg tablet 03/15 completed Not Available Not Available Not Available Zofran ODT 4 mg disintegrat ing tablet one ODT administe red on scene. Time administe red: 1040 03/15 completed Not Available Not Available Not Available cephalexin 500 mg capsule active Not Available Not Available Not Available nystatin 100,000 unit/gram topical cream active Not Available Not Available Not Available ranitidine 150 mg tablet 03/15 completed Not Available Not Available Not Available divalproex ER 500 mg tablet,exte nded release 24 hr TAKE 1 TABLET BY MOUTH EVERYDAY AT BEDTIME active Not Available Not Available No t Available lidocaine 5 % topical patch active Not Available Not Available Not Available metoprolol tartrate 50 mg tablet active Not Available Not Available No t Available gabapentin 300 mg capsule active Not Available Not Available Not Available omeprazole 20 mg capsule,del ayed release active Not Available Not Available Not Available bumetanide 1 mg tablet active Not Available Not Available Not Available hydroxyzine HCl 25 mg tablet TAKE 1 TABLET BY MOUTH THREE TIMES A DAY NEEDED active Not Available Not Available No t Available furosemide 20 mg tablet active Not Available Not Available Not Available metoprolol succinate ER 25 mg tablet,exte nded release 24 hr active Not Available Not Available Not Available lorazepam 1 mg tablet active Not Available Not Available No t Available cefuroxime axetil 500 mg tablet 04/23 completed Not Available Not Available Not Available colchicine 0.6 mg tablet 03/15 completed Not Available Not Available Not Available Ventolin HFA 90 mcg/actuati on aerosol inhaler active Not Available Not Available Not Available cyclobenzap rine 5 mg tablet 03/15 completed Not Available Not Available Not Available metoprolol tartrate 25 mg tablet active Not Available Not Available No t Available nitrofurant oin monohydrate /macrocryst als 100 mg capsule Take 1 capsule every 12 hours by oral route for 5 days. 03/15 completed Not Available Not Available Not Available solifenacin 10 mg tablet active Not Available Not Available Not Available [facility] unit/gram topical powder active Not Available Not Available Not Available melatonin active Not Available Not Debbie ilable Not Available aspirin active Not Available Not Avail able Not Available Nicotrol active Not Available Not Avai lable Not Available quetiapine 50 mg tablet 03/15 completed Not Available Not Available Not Available quetiapine ER 400 mg tablet,exte nded release 24 hr 03/15 completed Not Available Not Available Not Available quetiapine ER 300 mg tablet,exte nded release 24 hr 03/15 completed Not Available Not Available Not Available quetiapine ER 200 mg tablet,exte nded release 24 hr active Not Available Not Available Not Available Cranberry-P robiotic-Vi tamin C 450 mg-30 mg-50 million cell tablet Take 1 tablet twice a day by oral route for 14 days. 03/15 completed Not Available Not Available Not Available lidocaine 5 % topical ointment active Not Available Not Available Not Available Combivent Respimat 20 mcg-100 mcg/actuati on solution for inhalation active Not Available Not Available N ot Available Eliquis 5 mg tablet active Not Available Not Available No t Available [facility] COVID-19 Vaccine (PF) 30 mcg/0.3 mL IM susp (purple) PHARMACY ADMINISTE [facility] active Not Available Not Available No t Available Vitals Date Recorded Body temperature Heart rate Respiratory rate Oxygen saturation Oxygen saturation in Arterial blood by Pulse oximetry Systolic And Diastolic Provider Name and Address Organization Details Last Updated DateTime 1 98.8 [degF] 87 /min 18 /min 97 % 97 % 132/82 mm[Hg] Not Available [facility] 1 15:58:52 Date Recorded Respiratory rate Oxygen saturation Oxygen saturation in Arterial blood by Pulse oximetry Heart rate Body temperature Systolic And Diastolic Provider Name and Address Organization Details Last Updated DateTime 0 15 /min 94 % 94 % 95 /min 98.8 [degF] 126/74 mm[Hg] Not Available [facility] 0 10:26:02 Date Recorded Body temperature Respiratory rate Heart rate Oxygen saturation Oxygen saturation in Arterial blood by Pulse oximetry Systolic And Diastolic Provider Name and Address Organization Details Last Updated DateTime 1 96.7 [degF] 18 /min 97 /min 96 % 96 % 118/76 mm[Hg] Not Available [facility] 1 17:21:57 Date Recorded Respiratory rate Oxygen saturation Oxygen saturation in Arterial blood by Pulse oximetry Body temperature Heart rate Systolic And Diastolic Provider Name and Address Organization Details Last Updated DateTime 0 18 /min 97 % 97 % 97.7 [degF] 84 /min 124/80 mm[Hg] Not Available [facility] 0 13:15:27 Date Recorded Body temperature Heart rate Oxygen saturation Oxygen saturation in Arterial blood by Pulse oximetry Respiratory rate Systolic And Diastolic Provider Name and Address Organization Details Last Updated DateTime 1 97 [degF] 118 /min 92 % 92 % 22 /min 140/78 mm[Hg] Not Available [facility] 1 11:45:48 Social History Question Answer Notes LastModified by Organizat ion Details LastModified Time Tobacco Smoking Status Current Every Day Smoker MADELYN QUIROZ, TAYA [address], [place], [address], [place] [facility] 08/01/2019 10:21:56 What Is Your Code Status? Full Code [email or web address] Information not available 03/15/2021 Within The Past 12 Months, Has It Happened That The Food You Bought Just Didn't Last And You Didn't Have Money To Get More. No [email or web address] Information not available 03/15/2021 Within The Past 12 Months, Have You Worried That Your Food Would Run Out Before You Got Money To Buy More. No [email or web address] Information not available 03/15/2021 Fall Risk: Do You Feel Unsteady When Standing Or Walking? Yes [email or web address] Information not available 03/15/2021 Excessive Alcohol Or Drug Use No [email or web address] Information not available 03/15/2021 Does This Patient Have A PCP? Yes [facility] June Rodriguez NP [email or web address] Information not available 03/15/2021 How Much Tobacco Do You Smoke? 0.5 PPD Smokes 6 Cigarettes A Day Information not available 03/15/2021 Sex: Unknown Functional Status Question Answer Note LastModified by Organizat ion Details LastModified Time Do you use any illicit or recreational drugs? No [email or web address] Information not available 03/15/2021 Do you or have you ever used any other forms of tobacco or nicotine? No [email or web address] Information not available 03/15/2021 What is your level of alcohol consumption? None [email or web address] Information not available 03/15/2021 Mental Status None recorded. Family History Nothing Reported Notes:paternal side of famil y real problems HTN in dad Medical History Condition Response Coronary Artery Disease Y Cancer N Stroke Y Depression Y COPD Y Asthma Y High Cholesterol Y Pulmonary Embolism Y Hypertension Y Kidney Disease N Gynecological HistoryNo gynecological history recorded. Obstetrics History GPAL:G 0 P 0 0 0 0 Past Encounters Encounter ID Performer Location Encounter Start Date Encounter Closed Date Diagnosis/Indication Diagnosis SNOMED-CT Code Diagnosis ICD10 Code Diagnosis IMO Codes Diagnosis Note [id number] MADELYN QUIROZ NP [facility] [address] [facility] [place] [address] 08/01/2019 10:11:09 08/04/2019 12:09:40 Pyelonephritis 23501327 N12 Acute urin mima tract infection 231649838 N39.0 Candidiasis of vagina 72 896354 B37.3 Nausea 621145637 R11.0 [id number] HALLEY DIAS [facility] [address] [facility] [place] [address] 04/23/2020 13:12:03 04/24/2020 13:19:42 Gout 18654041 M10.9 Pain in left foot 701994 7531 21077 M79.672 Swelling of left foot 76 1613271 M79.89 [id number] ELEAZAR SCHULZ NP [facility] [address] [place] [address] 07/09/2020 15:45:57 07/12/2020 17:42:00 Urinary tract infectious disease 16477676 N39.0 [id number] HALLEY Bautista [facility] [address] [place] [address] 03/15/2021 16:53:59 03/22/2021 18:10:14 Increased frequency of urination 325235505 R35.0 dip showed glucose neg, ketones post. SG 1.030,, Blood 5-10 pH 5 , pos protein urobil. 2having frequency , dysuria (minimal) no feverfollo w up with your PCP if any changes or concerns [id number] Raji King NP [facility] [address] [place] [address] 06/15/2021 11:41:23 06/20/2021 20:25:58 Lactic acidosis 03450560 E87.2 Dysuria 52391693 R30.9 Health Concerns Section Related Observation LastModified by Organization Detai ls LastModified Time None Recorded Concern Status LastModified by Organization Details LastModified Time None Recorded Advance Directives Directive None Recorded Payers Insurance Date Sequence Insurance Name Policy Number Policy Carrera Covered Member ID Carrera Member ID Guarantor Name 08/03/2019 1 [place] [employer] Lucila Pieciak [id number] Lucila Pieciak 06/14/2021 1 [place] [employer] Lucila A Pieciak [id number] Lucila Pieciak 08/03/2019 1 *SELF PAY* Lucila Pieciak [id number] Lucila Pieciak 01/13/2022 PENDING Lucila Pieciak [id number] Lucila Pieciak 05/14/2020 2 [place] [facility] Lucila Pieciak [id number] Lucila Pieciak 07/09/2020 2 HEALTH SAFETY NET Lucila Pieciak [id number] Lucila Pieciak 06/14/2021 2 HEALTH SAFETY NET Lucila Pieciak [id number] Lucila Pieciak 07/09/2020 2 HEALTH SAFETY NET Lucila Pieciak [id number] Lucila Pieciak 06/20/2021 1 [place] Lucila Pieciak [id number] Lucila Pieciak 06/20/2021 2 [place] [employer] Lucila Pieciak [id number] Lucila Pieciak 01/13/2022 1 [place] [employer] Lucila A Pieciak [id number] Lucila Pieciak 01/13/2022 2 [place] Lucila Pieciak [id number] Lucila Pieciak Notes Date Note Type Note Provider Name and Address Organization Details Recorded Time 08/01/2019 text/html General HPI Template - DHReported by Patient 59 year-old female with history of HLD, CVA, on eliquis, asthma, smoker, fibromyalgia, DVT and PE, HTN, PUD, GERD, who calls to the home for evaluation of dysuria.Pt began having symptoms about 1 week ago with pain on urination and frequency. The urine has become smelly and the pain has become worse. She has been having intermittent nausea since yesterday. NO vomiting. NO fevers, chills. MADELYN QUIROZ, TAYA [address] [place], [address], [place] [facility] 08/01/2019 11:07:15 04/23/2020 text/html 59 y/o F with PMHx sig for asthma, COPD, CAD, depression, HLD, HTN, PE, and prior CVA in January 2019, known to but new to this provider who presents with c/o left foot pain, swelling, and redness x1 week. She states this happened to the right foot a while back and no cause was found and it eventually resolved on its own. She describes the pain as if someone stuck a fork in it and is dragging it and it goes straight through my foot top to bottom. The pain is constant and there is some increased warmth without pruritis. No numbness or tingling. She notes a little increased weakness from baseline and does have known foot drop on that side. No f/c, n/v. She does not worsening memory issues and is seeing neurology for this. Therefore, she cannot remember if she missed any doses of her Eliquis but seems compliant with her bubble packs. No recent injuries. She reports about 3 alcoholic beverages per week of fireball and cream soda. She states that now it hurts to stand on her left foot and is affecting her walking. HALLEY DIAS [address], [place], [address], [place] [facility] 04/23/2020 14:21:07 07/09/2020 text/html General HPI Template - DHReported by Patient This is a 60 yearold female that is known to but new to this provider. She has a medical hx significant forAsthma, COPD, CAD, depression, hyperlipidemia, hypertension, P and stroke. Her nurse had contacted [facility] because the patient has been reporting burning with urination for the past week or 2. She denies any urinary frequency. She denies any fevers she does endorse occasional chills and also denying low back pain today. She tells me that she has been eating and drinking normally and is denying any respiratory symptoms. ELEAZAR SCHULZ NP [address], [place], [address], [place] [facility] 07/09/2020 16:28:37 03/15/2021 text/html 3 days ago went to urinate and felt like she was being punched in right middle abd. bilateral flank pain. She might have had a fever 3 days ago, has had a little nausea. she has frequency of urination minima bladder pain with urination. she is able to eat and take in fluids. HALLEY Bautista [address], [place], [address], [place] [facility] 03/15/2021 17:54:38 06/15/2021 text/html Pt states she began having dysuria, urinary frequency, urgency, and lower back pain. States she had similar symptoms in February and was Dx with a UTI. Denies any fever, chills, nausea, or vomiting. Raji King NP [address], [place], [address], [place] [facility] 06/20/2021 20:52:29 OBGyn Episode No OBEpisode recorded.
--- OUTSIDE RECORDS SUMMARY | 2025-04-08 16:17 | XMS_ITS | Encounter Summary ---
Author Organization [employer] [facility] Address [address] [place] [address] Care Team Providers Care Applied Behavior Specialist Name Role Phone Unavailable Primary Care Provider [...]
--- OUTSIDE RECORDS SUMMARY | 2025-04-08 16:17 | XMS_ITS | Encounter Summary ---
Author Organization [facility] Address [address] [place] [address] Phone Care Team Providers Care Cake Mixer Name Role Phone June Rodriguez FABRIC SEPARATOR OPERATOR Primary Care Provider June Rodriguez FABRIC SEPARATOR OPERATOR Primary Care Provider Meka Arevalo Primary Care Provider [phone] Eleazar Gleason MD Primary Care Provider + Pcp, Unknown Primary Care Provider Unavailabl e Pcp, Unknown Primary Care Provider Unavailabl e Encounter Details Date Type Department Care Team (Late st Contact Info) Description 02/15/2018 Ancillary Orders Virtual Department [address] [place] [address] June Rodriguez, FABRIC SEPARATOR OPERATOR [address] [place] [address] [email or web address] Chest pain, unspecified type Social History Tobacco Use Types [...] documented as of this encounter Results * XR CHEST PA AND LATERAL 2 VIEWS (02/22/2018 11:41 AM EDT) Anatomical Region Laterality Modality Chest Radiographic Edith ging 02/22/2018 11:5 0 AM EDT Impressions 02/22/2018 11:51 AM EDT No acute chest disease. POS - [id number] Narrative 02/22/2018 11:51 AM EDT HISTORY: As above. COMPARISON: 12/20/2017. CHEST RADIOGRAPH FINDINGS: 2 views obtained. Heart and mediastinum are normal. Lungs are clear. Stable mild upper thoracic kyphosis. No acute soft tissue findings. Procedure Note Estefany Veloz MD - 02/22/2018 HISTORY: As above. COMPARISON: 12/20/2017. CHEST RADIOGRAPH FINDINGS: 2 views obtained. Heart and mediastinum are normal. Lungs are clear.Stable mild upper thoracic kyphosis. No acute soft tissue findings. IMPRESSION: No acute chest disease. POS - [id number] June Rodriguez FABRIC SEPARATOR OPERATOR IMG XR CHEST Final R esult documented in this encounter Visit Diagnoses Diagnosis Chest pain, unspecified type Chest pain, unspecified type documented in this encounter Additional [...] documented as of this encounter Care Teams Cake Mixer Relationship Specialty Start Date End Date June Rodriguez NP [address] [place] [address] [email or web address] PCP - General Family Medicine 12/20/17 01/02/22 June Rodriguez NP [address] [place] [address] [email or web address] PCP - General Family Medicine 01/03/22 01/01/23 Meka Arevalo PA [address] [place] [phone] PCP - General Physician Math And Science Instructor 01/02/23 10/25/23 Eleazar Gleason MD [address] [place] [id number] [email or web address] PCP - General Rheumatology 10/26/23 08/14/24 Pcp, Unknown PCP - General 08/15/24 03/15/25 Pcp, Unknown PCP - General 03/16/25 documented as of this encounter Additional Source Comments The information contained in this document represents components of the legal health record. It is not the complete legal health record.[facility]
--- OUTSIDE RECORDS SUMMARY | 2025-04-08 16:18 | XMS_ITS | Encounter Summary ---
Author Organization [facility] Address [address] [place] [address] Care Team Providers Care Litigation Legal Secretary Name Role Phone Dede Pimentel Jessica WEB PRODUCER Primary Care Provider [phone] Encounter Details Date Type Department Care Team (Late st Contact Info) Description 07/23/2024 Lab Requisition [facility] - Main Lab [address] [facility] [place] [phone] Elvira Damon MD 299 [facility] [address] [place] [address] Hematuria, unspecified Social History Tobacco [...] Department Care Team (Late Contact Info) Description 04/09/2025 11:30 AM EDT Clinical Support [facility] [address] [place] [address] 04/13/2025 [facility] Attend[facility] [place] [facility] [address] [place] [address] 04/13/2025 7:30 AM EDT PACE Home Care / P[facility] Home Visit [facility] [address] [place] [address] Cheryle Pryor 04/13/2025 9:00 AM EDT [facility] Att[facility] [place] [facility] [address] [place] [phone] 04/14/2025 7:30 AM EDT PACE Home Care / P[facility] Home Visit [facility] [place] [facility] [address] [place] [phone] Cheryle Pryor 04/14/2025 10:30 AM EDT PACE Home Care / [facility] Home Visit [facility] [place] [facility] [address] [place] [phone] Cheryle Pryor 04/14/2025 1:00 PM EDT Clinical Support Lung Screening Program - [address] [phone] 04/15/2025 7:30 AM EDT PACE Home Care / PACE Home Visit [facility] [address] [place] [address] Cheryle Pryor 04/15/2025 9:00 AM EDT [facility] Attend[facility] [place] [facility] [address] [place] [address] 04/16/2025 7:30 AM EDT PACE Home Care / P[facility] Home Visit [facility] [place] [facility] [address] [place] [phone] Cheryle Pryor 04/17/2025 7:30 AM EDT PACE Home Care / [facility] [place] [facility] [address] [place] [address] Shawna Lebron 04/17/2025 10:30 AM EDT PACE Home Care / [facility] [address] [place] [phone] Jhoana Grijalva 04/18/2025 7:30 AM EDT PACE Home Care / [facility] [place] [facility] [address] [place] [phone] Jhoana Grijalva 04/19/2025 7:30 AM EDT PACE Home Care / [facility] [address] [place] [phone] Jhoana Grijalva 04/20/2025 [facility] Att[facility] [place] [facility] [address] [place] [phone] 04/20/2025 7:30 AM EDT PACE Home Care / [facility] [place] [facility] [address] [place] [phone] Cheryle Pryor 04/20/2025 9:00 AM EDT [facility] Att[facility] [place] [facility] [address] [place] [phone] 04/21/2025 7:30 AM EDT PACE Home Care / [facility] [address] [place] [phone] Cheryle Pryor 04/21/2025 10:30 AM EDT PACE Home Care / [facility] [address] [place] [phone] Cheryle Pryor 04/22/2025 7:30 AM EDT PACE Home Care / [facility] [place] [facility] [address] [place] [address] Cheryle Pryor 04/22/2025 9:00 AM EDT [facility] Att[facility] [place] [facility] [address] [place] [phone] 04/23/2025 7:30 AM EDT PACE Home Care / P[facility] Home Visit [facility] [place] [facility] [address] [place] [phone] Cheryle Pryor 04/24/2025 11:30 AM EDT PACE Home Care / [facility] [place] [facility] [address] [place] [phone] Juanito Wasserman 04/25/2025 7:30 AM EDT PACE Home Care / [facility] [address] [place] [phone] Cheryle Pryor 04/26/2025 7:30 AM EST PACE Home Care / [facility] [address] [place] [phone] Cheryle Pryor 04/27/2025 [facility] Attend[facility] [place] [facility] [address] [place] [phone] 04/27/2025 7:30 AM EST PACE Home Care / P[facility] Home Visit [facility] [place] [facility] [address] [place] [phone] Cheryle Pryor 04/27/2025 9:00 AM EST [facility] [place] [facility] [address] [place] [phone] 04/28/2025 7:30 AM EST PACE Home Care / [facility] [address] [place] [phone] Cheryle Pryor 04/28/2025 10:30 AM EST PACE Home Care / [facility] [address] [place] [phone] Cheryle Pryor 04/29/2025 7:30 AM EST PACE Home Care / [facility] [address] [place] [phone] Cheryle Pryor 04/29/2025 9:00 AM EST [facility] [place] [facility] [address] [place] [phone] 04/30/2025 7:30 AM EST PACE Home Care / [facility] [place] [facility] [address] [place] [phone] Cheryle Pryor 05/01/2025 7:30 AM EST PACE Home Care / [facility] [address] [place] [phone] Shawna Lebron 05/01/2025 10:30 AM EST PACE Home Care / [facility] [address] [place] [phone] Jhoana Grijalva 05/02/2025 7:30 AM EST PACE Home Care / [facility] [address] [place] [phone] Jhoana Grijalva 05/03/2025 7:30 AM EST PACE Home Care / [facility] [address] [place] [phone] Jhoana Grijalva 05/04/2025 [facility] Att[facility] [place] [facility] [address] [place] [address] 05/04/2025 7:30 AM EST PACE Home Care / [facility] [address] [place] [phone] Cheryle Pryor 05/04/2025 9:00 AM EST [facility] [place] [facility] [address] [place] [address] 05/05/2025 7:30 AM EST PACE Home Care / [facility] [address] [place] [phone] Cheryle Pryor 05/05/2025 10:30 AM EST PACE Home Care / [facility] [address] [place] [phone] Cheryle Pryor 05/06/2025 7:30 AM EST PACE Home Care / [facility] [place] [facility] [address] [place] [phone] Cheryle Pryor 05/06/2025 9:00 AM EST [facility] [place] [facility] [address] [address] 05/07/2025 7:30 AM EST PACE Home Care / [facility] [address] [place] [phone] Cheryle Pryor 05/07/2025 9:00 AM EST Appointment [facility] [address] [place] [address] Rambo Barlow MD [address] [address] 05/08/2025 7:30 AM EST PACE Home Care / [facility] [place] [facility] [address] [place] [phone] Shawna Lebron 05/08/2025 10:30 AM EST PACE Home Care / [facility] Visit [facility] [place] [facility] [address] [place] [address] Jhoana Grijalva 05/09/2025 7:30 AM EST PACE Home Care / [facility] Visit [facility] [place] [facility] [address] [place] [address] Cheryle Pryor 05/10/2025 7:30 AM EST PACE Home Care / [facility] [address] [place] [address] Cheryle Pryor 05/11/2025 [facility] Att[facility] [place] [facility] [address] [place] [phone] 05/11/2025 7:30 AM EST PACE Home Care / [facility] [address] [place] [phone] Cheryle Pryor 05/11/2025 9:00 AM EST [facility] [place] [facility] [address] [place] [phone] 05/12/2025 7:30 AM EST PACE Home Care / [facility] [address] [place] [phone] Cheryle Pryor 05/12/2025 10:30 AM EST PACE Home Care / [facility] [address] [place] [phone] Cheryle Pryor 05/13/2025 7:30 AM EST PACE Home Care / [facility] [address] [place] [phone] Cheryle Pryor 05/13/2025 9:00 AM EST [facility] [place] [facility] [address] [place] [phone] 05/14/2025 7:30 AM EST PACE Home Care / [facility] [address] [place] [phone] Cheryle Pryor 05/15/2025 7:30 AM EST PACE Home Care / [facility] [address] [place] [phone] Shawna Lebron 05/15/2025 10:30 AM EST PACE Home Care / [facility] [address] [place] [phone] Jhoana Grijalva 05/16/2025 7:30 AM EST PACE Home Care / [facility] [address] [place] [phone] Jhoana Grijalva 05/17/2025 7:30 AM EST PACE Home Care / [facility] [address] [place] [phone] Jhoana Grijalva 05/18/2025 [facility] Att[facility] [place] [facility] [address] [place] [phone] 05/18/2025 7:30 AM EST PACE Home Care / [facility] [address] [place] [phone] Cheryle Pryor 05/18/2025 9:00 AM EST [facility] [place] [facility] [address] [place] [phone] 05/19/2025 7:30 AM EST PACE Home Care / [facility] [address] [place] [phone] Cheryle Pryor 05/19/2025 10:30 AM EST PACE Home Care / [facility] [address] [place] [address] Cheryle Pryor 05/20/2025 7:30 AM EST PACE Home Care / [facility] [address] [place] [phone] Cheryle Pryor 05/20/2025 9:00 AM EST [facility] [place] [facility] [address] [place] [address] 05/21/2025 7:30 AM EST PACE Home Care / [facility] [address] [place] [phone] Cheryle Pryor 05/22/2025 7:30 AM EST PACE Home Care / [facility] [address] [place] [phone] Shawna Lebron 05/22/2025 10:30 AM EST PACE Home Care / [facility] [address] [place] [phone] Jhoana Grijalva 05/23/2025 7:30 AM EST PACE Home Care / [facility] [address] [place] [phone] Cheryle Pryor 05/24/2025 7:30 AM EST PACE Home Care / [facility] [address] [place] [phone] Cheryle Pryor 05/25/2025 [facility] Att[facility] [place] [facility] [address] [place] [address] 05/25/2025 7:30 AM EST PACE Home Care / [facility] [address] [place] [phone] Cheryle Pryor 05/25/2025 9:00 AM EST [facility] [place] [facility] [address] [place] [address] 05/26/2025 7:30 AM EST PACE Home Care / [facility] [address] [place] [address] Cheryle Pryor 05/26/2025 10:30 AM EST PACE Home Care / [facility] [address] [place] [address] Cheryle Pryor 05/27/2025 7:30 AM EST PACE Home Care / [facility] [address] [place] [address] Cheryle Pryor 05/27/2025 9:00 AM EST [facility] [place] [facility] [address] [place] [address] 05/28/2025 7:30 AM EST PACE Home Care / [facility] [address] [place] [address] Cheryle Pryor 05/29/2025 7:30 AM EST PACE Home Care / [facility] [address] [place] [address] Shawna Lebron 05/29/2025 10:30 AM EST PACE Home Care / [facility] [address] [place] [phone] Jhoana Grijalva 05/30/2025 7:30 AM EST PACE Home Care / [facility] [address] [place] [phone] Jhoana Grijalva 05/31/2025 7:30 AM EST PACE Home Care / [facility] [address] [place] [address] Jhoana Grijalva 06/01/2025 [facility] Att[facility] [place] [facility] [address] [place] [address] 06/01/2025 7:30 AM EST PACE Home Care / [facility] [address] [place] [phone] Cheryle Pryor 06/01/2025 9:00 AM EST [facility] [place] [facility] [address] [place] [phone] 06/02/2025 7:30 AM EST PACE Home Care / [facility] [address] [place] [phone] Cheryle Pryor 06/02/2025 10:30 AM EST PACE Home Care / [facility] [address] [place] [phone] Cheryle Pryor 06/03/2025 7:30 AM EST PACE Home Care / [facility] [address] [place] [phone] Cheryle Pryor 06/03/2025 9:00 AM EST [facility] [place] [facility] [address] [place] [phone] 06/04/2025 7:30 AM EST PACE Home Care / [facility] [address] [place] [phone] Cheryle Pryor 06/05/2025 7:30 AM EST PACE Home Care / [facility] [address] [place] [address] Shawna Lebron 06/05/2025 10:30 AM EST PACE Home Care / [facility] [address] [place] [address] Jhoana Grijalva 06/06/2025 7:30 AM EST PACE Home Care / [facility] [address] [place] [address] Cheryle Pryor 06/07/2025 7:30 AM EST PACE Home Care / [facility] [address] [place] [address] Cheryle Pryor 06/08/2025 [facility] Attend[facility] [place] [facility] [address] [place] [address] 06/08/2025 9:00 AM EST [facility] [place] [facility] [address] [place] [address] 06/10/2025 9:00 AM EST [facility] [place] [facility] [address] [place] [phone] 06/15/2025 [facility] Att[facility] [place] [facility] [address] [place] [phone] 06/15/2025 9:00 AM EST [facility] [place] [facility] [address] [place] [address] 06/17/2025 9:00 AM EST [facility] [place] [facility] [address] [place] [address] 06/22/2025 [facility] Att[facility] [place] [facility] [address] [place] [address] 06/22/2025 9:00 AM EST [facility] [place] [facility] [address] [place] [address] 06/24/2025 9:00 AM EST P[facility] Attendance[facility] [place] [facility] [address] [place] [phone] 06/29/2025 PACE Attendance[facility] [facility] [place] [facility] [address] [place] [phone] 06/29/2025 9:00 AM EST [facility] Attend[facility] [place] [facility] [address] [place] [phone] 07/01/2025 9:00 AM EST [facility] [place] [facility] [address] [place] [phone] 07/06/2025 [facility] [place] [facility] [address] [place] [phone] 07/06/2025 9:00 AM EST [facility] Att[facility] [place] [facility] [address] [place] [phone] 2025 9:00 AM EST [facility] Att[facility] [place] [facility] [address] [place] [phone] 07/13/2025 [facility] Attend[facility] [place] [facility] [address] [place] [phone] 07/13/2025 9:00 AM EST [facility] Attend[facility] [place] [facility] [address] [place] [phone] 07/15/2025 9:00 AM EST [facility] Att[facility] [place] [facility] [address] [place] [phone] 07/20/2025 P[facility] Attendance[facility] [place] [facility] [address] [place] [phone] 07/20/2025 9:00 AM EST [facility] Attend[facility] [place] [facility] [address] [place] [address] 07/22/2025 9:00 AM EST [facility] [place] [facility] [address] [place] [phone] 07/27/2025 [facility] Attend[facility] [place] [facility] [address] [place] [address] 07/27/2025 9:00 AM EST [facility] [place] [facility] [address] [place] [phone] 07/29/2025 9:00 AM EST [facility] [place] [facility] [address] [place] [phone] 08/03/2025 [facility] [place] [facility] [address] [place] [phone] 08/03/2025 9:00 AM EST [facility] Attend[facility] [place] [facility] [address] [place] [phone] 08/05/2025 9:00 AM EST [facility] [place] [facility] [address] [place] [address] 08/10/2025 P[facility] Attendance[facility] [place] [facility] [address] [place] [address] 08/12/2025 9:00 AM EST [facility] [place] [facility] [address] [place] [address] 08/17/2025 P[facility] Attendance[facility] [place] [facility] [address] [place] [phone] 08/19/2025 9:00 AM EST [facility] [place] [facility] [address] [place] [phone] 08/24/2025 P[facility] Attendance[facility] [place] [facility] [address] [place] [phone] 08/26/2025 9:00 AM EST [facility] [place] [facility] [address] [place] [address] 08/31/2025 P[facility] Attend[facility] [place] [facility] [address] [place] [phone] 09/02/2025 9:00 AM EDT [facility] Att[facility] [place] [facility] [address] [place] [phone] 09/07/2025 P[facility] Attend[facility] [place] [facility] [address] [place] [phone] 09/09/2025 9:00 AM EDT [facility] Att[facility] [place] [facility] [address] [place] [phone] 09/14/2025 P[facility] Attendance[facility] [place] [facility] [address] [place] [phone] 09/16/2025 9:00 AM EDT [facility] Att[facility] [place] [facility] [address] [place] [phone] 09/21/2025 P[facility] Attend[facility] [place] [facility] [address] [place] [phone] 09/23/2025 9:00 AM EDT [facility] Att[facility] [place] [facility] [address] [place] [phone] 09/28/2025 [facility] Attend[facility] [place] [facility] [address] [place] [phone] 09/30/2025 9:00 AM EDT [facility] Att[facility] [place] [facility] [address] [place] [phone] 10/05/2025 [facility] Attend[facility] [place] [facility] [address] [place] [address] 10/07/2025 9:00 AM EDT [facility] Att[facility] [place] [facility] [address] [place] [address] 10/12/2025 [facility] Attend[facility] [place] [facility] [address] [place] [address] 10/14/2025 9:00 AM EDT [facility] Att[facility] [place] [facility] [address] [place] [phone] 10/19/2025 [facility] Attend[facility] [place] [facility] [address] [place] [phone] 10/21/2025 9:00 AM EDT [facility] Att[facility] [place] [facility] [address] [place] [phone] 10/26/2025 [facility] Att[facility] [place] [facility] [address] [place] [phone] 10/28/2025 9:00 AM EDT [facility] Att[facility] [place] [facility] [address] [place] [phone] 11/02/2025 [facility] Attend[facility] [place] [facility] [address] [place] [address] 11/04/2025 9:00 AM EDT [facility] Att[facility] [place] [facility] [address] [place] [phone] 11/09/2025 [facility] Att[facility] [place] [facility] [address] [place] [phone] 11/11/2025 9:00 AM EDT [facility] Att[facility] [place] [facility] [address] [place] [address] 11/16/2025 [facility] Att[facility] [place] [facility] [address] [place] [address] 11/18/2025 9:00 AM EDT [facility] Att[facility] [place] [facility] [address] [place] [address] 11/23/2025 [facility] Att[facility] [place] [facility] [address] [place] [address] 11/25/2025 9:00 AM EDT [facility] Att[facility] [place] [facility] [address] [place] [phone] 11/30/2025 [facility] Attend[facility] [place] [facility] [address] [place] [address] 12/02/2025 9:00 AM EDT [facility] Att[facility] [place] [facility] [address] [place] [address] 12/07/2025 [facility] Attend[facility] [place] [facility] [address] [place] [address] 12/09/2025 9:00 AM EDT [facility] Att[facility] [place] [facility] [address] [place] [phone] 12/14/2025 [facility] Att[facility] [place] [facility] [address] [place] [address] 12/16/2025 9:00 AM EDT [facility] Att[facility] [place] [facility] [address] [place] [phone] 12/21/2025 [facility] Att[facility] [place] [facility] [address] [place] [phone] 12/23/2025 9:00 AM EDT [facility] Att[facility] [place] [facility] [address] [place] [phone] 12/28/2025 [facility] Attend[facility] [place] [facility] [address] [place] [phone] 12/30/2025 9:00 AM EDT [facility] Att[facility] [place] [facility] [address] [place] [phone] 01/04/2026 [facility] Attend[facility] [place] [facility] [address] [place] [phone] 01/06/2026 9:00 AM EDT [facility] Attend[facility] [place] [facility] [address] [place] [phone] 01/11/2026 P[facility] Attend[facility] [place] [facility] [address] [place] [phone] 01/13/2026 9:00 AM EDT [facility] Att[facility] [place] [facility] [address] [place] [phone] 01/18/2026 [facility] [place] [facility] [address] [place] [phone] 01/20/2026 9:00 AM EDT [facility] [address] [place] [phone] 01/25/2026 [facility] [place] [facility] [address] [place] [phone] 01/27/2026 9:00 AM EDT [facility] [place] [facility] [address] [place] [phone] 02/01/2026 [facility] [place] [facility] [address] [place] [phone] 02/03/2026 9:00 AM EDT [facility] [place] [facility] [address] [place] [phone] 02/08/2026 [facility] [place] [facility] [address] [place] [phone] 02/10/2026 9:00 AM EDT [facility] [place] [facility] [address] [place] [phone] 02/15/2026 [facility] [place] [facility] [address] [place] [phone] 02/17/2026 9:00 AM EDT [facility] [place] [facility] [address] [place] [phone] 02/22/2026 [facility] [place] [facility] [address] [place] [phone] 02/24/2026 9:00 AM EDT [facility] [place] [facility] [address] [place] [phone] 03/03/2026 9:00 AM EDT [facility] [place] [facility] [address] [place] [phone] 03/10/2026 9:00 AM EDT [facility] [place] [facility] [address] [place] [phone] 03/17/2026 9:00 AM EDT [facility] [place] [facility] [address] [place] [phone] 03/24/2026 9:00 AM EDT [facility] [place] [facility] [address] [place] [phone] 03/31/2026 9:00 AM EDT [facility] [place] [facility] [address] [place] [phone] 04/07/2026 9:00 AM EDT [facility] Att[facility]Day Center Shanell [facility] [address] [place] [phone] 04/14/2026 9:00 AM EDT [facility] [address] [phone] 04/21/2026 9:00 AM EDT [facility] [address] [phone] documented as of this encounter Procedures Procedure [...] scant material received may not be fully signs and displays sales representative of the endometrium. Clinical correlation [...] fixed and paraffin embedded. 07/24/2024 11:07 AM [facility] Tissue Endometrial structure / Unknown 07/22/2024 07/23/2024 7:03 AM EST us Elvira Damon MD LAB PATHOLOGY ORDERABLES Final Result [facility] [address] [place] [address], documented in this encounter Visit Diagnoses Diagnosis Hematuria, unspecified documented in this encounter Care Teams Litigation Legal Secretary Relationship Specialty Start Date End Date Dede Pimentel NP [address] [place] [id number] PCP - General Family Medicine 05/02/24 documented as of this encounter
--- OUTSIDE RECORDS SUMMARY | 2025-04-08 16:18 | XMS_ITS | Encounter Summary ---
Author Organization [facility] Address [address] [place] [address] Care Team Providers Care Motel Operator Name Role Phone Dede Pimentel BUSINESS EXECUTIVE Primary Care Provider [phone] Encounter Details Date Type Department Care Team (Late Contact Info) Description 11/04/2024 Health Home Core Service [facility] [address] [place] [address] Samanta Bledsoe RN Social History Tobacco Use Types Packs/Day [...] Description 04/09/2025 11:30 AM EDT Clinical Support [facility] [address] [place] [address] 04/13/2025 [facility] Att[facility] [facility] [place] [facility] [address] [place] [address] 04/13/2025 7:30 AM EDT PACE Home Care / [facility] [place] [facility] [place] [facility] [address] [place] [address] Cheryle Pryor 04/13/2025 9:00 AM EDT [facility] Att[facility] [facility] [place] [facility] [address] [place] [address] 04/14/2025 7:30 AM EDT PACE Home Care / [facility] [place] [facility] [address] [place] [phone] Cheryle Pryor 04/14/2025 10:30 AM EDT PACE Home Care / [facility] [place] [facility] [address] [place] [phone] Cheryle Pryor 04/14/2025 1:00 PM EDT Clinical Support Lung Screening Program - [address] [address] 04/15/2025 7:30 AM EDT PACE Home Care / [facility] [place] [facility] [address] [place] [phone] Cheryle Pryor 04/15/2025 9:00 AM EDT [facility] Att[facility] [facility] [place] [facility] [address] [place] [address] 04/16/2025 7:30 AM EDT PACE Home Care / [facility] [place] [facility] [address] [place] [address] Cheryle Pryor 04/17/2025 7:30 AM EDT PACE Home Care / [facility] [place] [facility] [address] [place] [phone] Shawna Lebron 04/17/2025 10:30 AM EDT PACE Home Care / [facility] [place] [facility] [address] [place] [phone] Jhoana Grijalva 04/18/2025 7:30 AM EDT PACE Home Care / [facility] [place] [facility] [address] [place] [phone] Jhoana Grijalva 04/19/2025 7:30 AM EDT PACE Home Care / [facility] [place] [facility] [address] [place] [phone] Jhoana Grijalva 04/20/2025 [facility] Attendance[facility] [facility] [place] [facility] [address] [place] [phone] 04/20/2025 7:30 AM EDT PACE Home Care / [facility] [place] [facility] [address] [place] [phone] Cheryle Pryor 04/20/2025 9:00 AM EDT [facility] [facility] [place] [facility] [address] [place] [phone] 04/21/2025 7:30 AM EDT PACE Home Care / [facility] [place] [facility] [address] [place] [phone] Cheryle Pryor 04/21/2025 10:30 AM EDT PACE Home Care / [facility] [place] [facility] [address] [place] [phone] Cheryle Pryor 04/22/2025 7:30 AM EDT PACE Home Care / [facility] [place] [facility] [address] [place] [phone] Cheryle Pryor 04/22/2025 9:00 AM EDT [facility] [facility] [place] [facility] [address] [place] [address] 04/23/2025 7:30 AM EDT PACE Home Care / [facility] [place] [facility] [address] [place] [phone] Cheryle Pryor 04/24/2025 11:30 AM EDT PACE Home Care / [facility] [place] [facility] [address] [place] [phone] Juanito Wasserman 04/25/2025 7:30 AM EDT PACE Home Care / [facility] [place] [facility] [address] [place] [phone] Cheryle Pryor 04/26/2025 7:30 AM EST PACE Home Care / [facility] [place] [facility] [address] [place] [phone] Cheryle Pryor 04/27/2025 PACE Attendance[facility] [facility] [place] [facility] [address] [place] [phone] 04/27/2025 7:30 AM EST PACE Home Care / [facility] [place] [facility] [address] [place] [phone] Cheryle Pryor 04/27/2025 9:00 AM EST [facility] [place] [facility] [address] [place] [phone] 04/28/2025 7:30 AM EST PACE Home Care / [facility] [address] [place] [phone] Cheryle Pryor 04/28/2025 10:30 AM EST PACE Home Care / [facility] [place] [facility] [address] [place] [address] Cheryle Pryor 04/29/2025 7:30 AM EST PACE Home Care / [facility] Visit [facility] [place] [facility] [address] [place] [address] Cheryle Pryor 04/29/2025 9:00 AM EST [facility] [facility] [place] [facility] [address] [place] [address] 04/30/2025 7:30 AM EST PACE Home Care / [facility] [place] [facility] [address] [place] [phone] Cheryle Pryor 05/01/2025 7:30 AM EST PACE Home Care / [facility] Visit [facility] [place] [facility] [address] [place] [phone] Shawna Lebron 05/01/2025 10:30 AM EST PACE Home Care / [facility] Visit [facility] [place] [facility] [address] [place] [phone] Jhoana Grijalva 05/02/2025 7:30 AM EST PACE Home Care / [facility] Visit [facility] [place] [facility] [address] [place] [phone] Jhoana Grijalva 05/03/2025 7:30 AM EST PACE Home Care / [facility] Visit [facility] [place] [facility] [address] [place] [phone] Jhoana Grijalva 05/04/2025 [facility] Attendance[facility] [facility] [place] [facility] [address] [place] [address] 05/04/2025 7:30 AM EST PACE Home Care / [facility] [place] [facility] [address] [place] [phone] Cheryle Pryor 05/04/2025 9:00 AM EST [facility] Att[facility] [facility] [place] [facility] [address] [place] [address] 05/05/2025 7:30 AM EST PACE Home Care / [facility] [place] [facility] [address] [place] [phone] Cheryle Pryor 05/05/2025 10:30 AM EST PACE Home Care / [facility] Visit [facility] [place] [facility] [address] [place] [phone] Cheryle Pryor 05/06/2025 7:30 AM EST PACE Home Care / [facility] Visit [facility] [place] [facility] [address] [place] [phone] Cheryle Pryor 05/06/2025 9:00 AM EST [facility] Att[facility] [facility] [place] [facility] [address] [place] [phone] 05/07/2025 7:30 AM EST PACE Home Care / [facility] [place] [facility] [address] [place] [phone] Cheryle Pryor 05/07/2025 9:[address] [facility] [address] [place] [address] Rambo Barlow MD [address] [address] 05/08/2025 7:30 AM EST PACE Home Care / [facility] [place] [facility] [address] [place] [phone] Shawna Lebron 05/08/2025 10:30 AM EST PACE Home Care / [facility] Visit [facility] [place] [facility] [address] [place] [phone] Jhoana Grijalva 05/09/2025 7:30 AM EST PACE Home Care / [facility] Visit [facility] [place] [facility] [address] [place] [address] Cheryle Pryor 05/10/2025 7:30 AM EST PACE Home Care / [facility] Visit [facility] [place] [facility] [address] [place] [phone] Cheryle Pryor 05/11/2025 [facility] Attendance[facility] [facility] [place] [facility] [address] [place] [phone] 05/11/2025 7:30 AM EST PACE Home Care / [facility] [place] [facility] [address] [place] [phone] Cheryle Pryor 05/11/2025 9:00 AM EST [facility] Att[facility] [facility] [place] [facility] [address] [place] [phone] 05/12/2025 7:30 AM EST PACE Home Care / [facility] [place] [facility] [address] [place] [phone] Cheryle Pryor 05/12/2025 10:30 AM EST PACE Home Care / [facility] [place] [facility] [address] [place] [phone] Cheryle Pryor 05/13/2025 7:30 AM EST PACE Home Care / [facility] Visit [facility] [place] [facility] [address] [place] [phone] Cheryle Pryor 05/13/2025 9:00 AM EST [facility] [facility] [place] [facility] [address] [place] [phone] 05/14/2025 7:30 AM EST PACE Home Care / [facility] [place] [facility] [address] [place] [address] Cheryle Pryor 05/15/2025 7:30 AM EST PACE Home Care / [facility] Visit [facility] [place] [facility] [address] [place] [address] Shawna Lebron 05/15/2025 10:30 AM EST PACE Home Care / [facility] Visit [facility] [place] [facility] [address] [place] [phone] Jhoana Grijalva 05/16/2025 7:30 AM EST PACE Home Care / [facility] Visit [facility] [place] [facility] [address] [place] [phone] Jhoana Grijalva 05/17/2025 7:30 AM EST PACE Home Care / [facility] [place] [facility] [address] [place] [phone] Jhoana Grijalva 05/18/2025 [facility] Attendance[facility] [facility] [place] [facility] [address] [place] [phone] 05/18/2025 7:30 AM EST PACE Home Care / [facility] [place] [facility] [address] [place] [phone] Cheryle Pryor 05/18/2025 9:00 AM EST [facility] Att[facility] [facility] [place] [facility] [address] [place] [phone] 05/19/2025 7:30 AM EST PACE Home Care / [facility] [address] [place] [phone] Cheryle Pryor 05/19/2025 10:30 AM EST PACE Home Care / [facility] [place] [facility] [address] [place] [phone] Cheryle Pryor 05/20/2025 7:30 AM EST PACE Home Care / [facility] [place] [facility] [address] [place] [address] Cheryle Pryor 05/20/2025 9:00 AM EST [facility] Att[facility] [facility] [place] [facility] [address] [place] [phone] 05/21/2025 7:30 AM EST PACE Home Care / [facility] Visit [facility] [place] [facility] [address] [place] [phone] Cheryle Pryor 05/22/2025 7:30 AM EST PACE Home Care / [facility] Visit [facility] [place] [facility] [address] [place] [phone] Shawna Lebron 05/22/2025 10:30 AM EST PACE Home Care / [facility] Visit [facility] [place] [facility] [address] [place] [phone] Jhoana Grijalva 05/23/2025 7:30 AM EST PACE Home Care / [facility] Visit [facility] [place] [facility] [address] [place] [phone] Cheryle Pryor 05/24/2025 7:30 AM EST PACE Home Care / [facility] Visit [facility] [address] [place] [phone] Cheryle Pryor 05/25/2025 P[facility] Attendance[facility] [facility] [place] [facility] [address] [place] [address] 05/25/2025 7:30 AM EST PACE Home Care / [facility] [place] [facility] [address] [place] [phone] Cheryle Pryor 05/25/2025 9:00 AM EST [facility] Att[facility] [facility] [place] [facility] [address] [place] [address] 05/26/2025 7:30 AM EST PACE Home Care / [facility] Visit [facility] [place] [facility] [address] [place] [address] Cheryle Pryor 05/26/2025 10:30 AM EST PACE Home Care / [facility] [place] [facility] [address] [place] [address] Cheryle Pryor 05/27/2025 7:30 AM EST PACE Home Care / [facility] [place] [facility] [address] [place] [address] Cheryle Pryor 05/27/2025 9:00 AM EST [facility] Att[facility] [facility] [place] [facility] [address] [place] [address] 05/28/2025 7:30 AM EST PACE Home Care / [facility] [address] [place] [phone] Cheryle Pryor 05/29/2025 7:30 AM EST PACE Home Care / [facility] Visit [facility] [address] [place] [phone] Shawna Lebron 05/29/2025 10:30 AM EST PACE Home Care / [facility] [place] [facility] [address] [place] [phone] Jhoana Grijalva 05/30/2025 7:30 AM EST PACE Home Care / [facility] Visit [facility] [place] [facility] [address] [place] [address] Jhoana Grijalva 05/31/2025 7:30 AM EST PACE Home Care / [facility] [address] [place] [phone] Jhoana Grijalva 06/01/2025 [facility] Attendance[facility] [facility] [place] [facility] [address] [place] [address] 06/01/2025 7:30 AM EST PACE Home Care / [facility] [address] [place] [phone] Cheryle Pryor 06/01/2025 9:00 AM EST [facility] Att[facility] [facility] [place] [facility] [address] [place] [phone] 06/02/2025 7:30 AM EST PACE Home Care / [facility] [address] [place] [phone] Cheryle Pryor 06/02/2025 10:30 AM EST PACE Home Care / [facility] [address] [place] [phone] Cheryle Pryor 06/03/2025 7:30 AM EST PACE Home Care / [facility] [address] [place] [phone] Cheryle Pryor 06/03/2025 9:00 AM EST [facility] Att[facility] [facility] [place] [facility] [address] [place] [phone] 06/04/2025 7:30 AM EST PACE Home Care / [facility] [address] [place] [phone] Cheryle Pryor 06/05/2025 7:30 AM EST PACE Home Care / [facility] [address] [place] [phone] Shawna Zaragoza 06/05/2025 10:30 AM EST PACE Home Care / [facility] [address] [place] [address] Jhoana Grijalva 06/06/2025 7:30 AM EST PACE Home Care / [facility] [address] [place] [address] Cheryle Pryor 06/07/2025 7:30 AM EST PACE Home Care / [facility] [place] [facility] [address] [place] [address] Cheryle Pryor 06/08/2025 [facility] Attendance[facility] [facility] [place] [facility] [address] [place] [address] 06/08/2025 9:00 AM EST [facility] Att[facility] [place] [facility] [address] [place] [address] 06/10/2025 9:00 AM EST [facility] Att[facility] [place] [facility] [address] [place] [phone] 06/15/2025 PACE Attendance[facility] [place] [facility] [address] [place] [phone] 06/15/2025 9:00 AM EST [facility] [place] [facility] [address] [place] [address] 06/17/2025 9:00 AM EST [facility] [place] [facility] [address] [place] [address] 06/22/2025 P[facility] Att[facility] [place] [facility] [address] [place] [phone] 06/22/2025 9:00 AM EST [facility] [place] [facility] [address] [place] [phone] 06/24/2025 9:00 AM EST [facility] Attend[facility] [place] [facility] [address] [place] [address] 06/29/2025 P[facility] Attend[facility] [place] [facility] [place] [facility] [address] [place] [phone] 06/29/2025 9:00 AM EST [facility] Att[facility] [place] [facility] [address] [place] [address] 07/01/2025 9:00 AM EST [facility] Attend[facility] [place] [facility] [address] [place] [phone] 07/06/2025 PACE Attendance[facility] [place] [facility] [address] [place] [phone] 07/06/2025 9:00 AM EST [facility] Att[facility] [place] [facility] [address] [place] [phone] 2025 9:00 AM EST [facility] [place] [facility] [address] [place] [phone] 07/13/2025 PACE Attendance[facility] [place] [facility] [address] [place] [phone] 07/13/2025 9:00 AM EST [facility] Att[facility] [place] [facility] [address] [place] [phone] 07/15/2025 9:00 AM EST [facility] Att[facility] [place] [facility] [address] [place] [phone] 07/20/2025 PACE Attendance[facility] [place] [facility] [address] [place] [phone] 07/20/2025 9:00 AM EST [facility] Attend[facility] [place] [facility] [address] [place] [address] 07/22/2025 9:00 AM EST [facility] Att[facility] [place] [facility] [address] [place] [phone] 07/27/2025 PACE Attendance[facility] [place] [facility] [address] [place] [address] 07/27/2025 9:00 AM EST [facility] Att[facility] [place] [facility] [address] [place] [phone] 07/29/2025 9:00 AM EST [facility] [place] [facility] [address] [place] [phone] 08/03/2025 [facility] [place] [facility] [address] [place] [phone] 08/03/2025 9:00 AM EST [facility] Attend[facility] [place] [facility] [address] [place] [phone] 08/05/2025 9:00 AM EST [facility] Attend[facility] [place] [facility] [address] [place] [phone] 08/10/2025 P[facility] Attendance[facility] [place] [facility] [address] [place] [phone] 08/12/2025 9:00 AM EST [facility] Att[facility] [place] [facility] [address] [place] [phone] 08/17/2025 PACE Attendance[facility] [place] [facility] [address] [place] [phone] 08/19/2025 9:00 AM EST [facility] Att[facility] [place] [facility] [address] [place] [phone] 08/24/2025 [facility] Attend[facility] [place] [facility] [address] [place] [address] [place] [address] 08/26/2025 9:00 AM EST [facility] [place] [facility] [address] [place] [address] 08/31/2025 [facility] Att[facility] [place] [facility] [address] [place] [address] 09/02/2025 9:00 AM EDT [facility] Att[facility] [place] [facility] [address] [place] [address] 09/07/2025 [facility] Att[facility] [place] [facility] [address] [place] [address] 09/09/2025 9:00 AM EDT [facility] Att[facility] [place] [facility] [address] [place] [phone] 09/14/2025 P[facility] Att[facility] [place] [facility] [address] [place] [phone] 09/16/2025 9:00 AM EDT [facility] Att[facility] [place] [facility] [address] [place] [phone] 09/21/2025 P[facility] Att[facility] [place] [facility] [address] [place] [phone] 09/23/2025 9:00 AM EDT [facility] [place] [facility] [address] [place] [phone] 09/28/2025 P[facility] Attend[facility] [place] [facility] [address] [place] [address] 09/30/2025 9:00 AM EDT [facility] Att[facility] [place] [facility] [address] [place] [address] 10/05/2025 [facility] Attend[facility] [place] [facility] [address] [place] [address] 10/07/2025 9:00 AM EDT [facility] Att[facility] [place] [facility] [address] [place] [address] 10/12/2025 [facility] Att[facility] [place] [facility] [address] [place] [address] 10/14/2025 9:00 AM EDT [facility] Att[facility] [place] [facility] [address] [place] [address] 10/19/2025 [facility] Att[facility] [place] [facility] [address] [place] [address] 10/21/2025 9:00 AM EDT [facility] Att[facility] [place] [facility] [address] [place] [address] 10/26/2025 [facility] Att[facility] [place] [facility] [address] [place] [phone] 10/28/2025 9:00 AM EDT [facility] Att[facility] [place] [facility] [address] [place] [address] 11/02/2025 P[facility] Attend[facility] [place] [facility] [address] [place] [address] 11/04/2025 9:00 AM EDT [facility] Att[facility] [place] [facility] [address] [place] [address] 11/09/2025 [facility] Att[facility] [place] [facility] [address] [place] [address] 11/11/2025 9:00 AM EDT [facility] Att[facility] [place] [facility] [address] [place] [address] 11/16/2025 [facility] Att[facility] [place] [facility] [address] [place] [address] 11/18/2025 9:00 AM EDT [facility] Att[facility] [place] [facility] [address] [place] [address] 11/23/2025 [facility] Att[facility] [place] [facility] [address] [place] [address] 11/25/2025 9:00 AM EDT [facility] [place] [facility] [address] [place] [address] 11/30/2025 [facility] Att[facility] [place] [facility] [address] [place] [address] 12/02/2025 9:00 AM EDT [facility] Att[facility] [place] [facility] [address] [place] [address] 12/07/2025 [facility] Att[facility] [place] [facility] [address] [place] [address] 12/09/2025 9:00 AM EDT [facility] [place] [facility] [address] [place] [phone] 12/14/2025 [facility] Att[facility] [place] [facility] [address] [place] [phone] 12/16/2025 9:00 AM EDT [facility] Att[facility] [place] [facility] [address] [place] [address] 12/21/2025 [facility] Att[facility] [place] [facility] [address] [place] [address] 12/23/2025 9:00 AM EDT [facility] Att[facility] [place] [facility] [address] [place] [address] 12/28/2025 [facility] Attend[facility] [place] [facility] [address] [place] [address] 12/30/2025 9:00 AM EDT P[facility] Attend[facility] [place] [facility] [address] [place] [address] 01/04/2026 [facility] Att[facility] [place] [facility] [address] [place] [address] 01/06/2026 9:00 AM EDT [facility] Att[facility] [place] [facility] [address] [place] [address] 01/11/2026 [facility] [place] [facility] [address] [place] [address] 01/13/2026 9:00 AM EDT [facility] [place] [facility] [address] [place] [address] 01/18/2026 [facility] [place] [facility] [address] [place] [phone] 01/20/2026 9:00 AM EDT [facility] [address] [place] [address] 01/25/2026 [facility] [address] [place] [address] 01/27/2026 9:00 AM EDT [facility] [address] [place] [address] 02/01/2026 [facility] [address] [place] [address] 02/03/2026 9:00 AM EDT [facility] [address] [place] [address] 02/08/2026 [facility] [address] [place] [address] 02/10/2026 9:00 AM EDT [facility] [address] [place] [address] 02/15/2026 [facility] [address] [place] [address] 02/17/2026 9:00 AM EDT [facility] [address] [place] [phone] 02/22/2026 [facility] [address] [place] [phone] 02/24/2026 9:00 AM EDT [facility] [address] [place] [phone] 03/03/2026 9:00 AM EDT [facility] [address] [place] [phone] 03/10/2026 9:00 AM EDT [facility] [address] [place] [phone] 03/17/2026 9:00 AM EDT [facility] [address] [place] [address] 03/24/2026 9:00 AM EDT [facility] [address] [place] [phone] 03/31/2026 9:00 AM EDT [facility] [address] [place] [address] 04/07/2026 9:00 AM EDT [facility] [address] [place] [address] 04/14/2026 9:00 AM EDT [facility] Attendance/Day Center [facility] [address] [place] [address] 04/21/2026 9:00 AM EDT [facility] Attendance[facility]Day Center [facility] [address] [place] [address] documented as of this encounter Visit Diagnoses Not on filedocumented in this encounter Care Teams Motel Operator Relationship Specialty Start Date End Date Dede Pimentel NP [address] [address] PCP - General Family Medicine 05/02/24 documented as of this encounter
--- OUTSIDE RECORDS SUMMARY | 2025-04-08 16:18 | XMS_ITS | Encounter Summary ---
Author Organization [facility] Address [address] [place] [address] Care Team Providers Care Valet Name Role Phone Dede Pimentel RECEIVABLE EXECUTIVE Primary Care Provider [phone] Encounter Details Date Type Department Care Team (Late st Contact Info) Description 07/04/[address] [facility] - Main Lab [address] [facility] [place] [id number] Dede Pimentel NP [address] [facility] [place] [address] [place], [place] [id number] Encounter for general adult medical examination without [...] EDT Clinical Support [facility] [place] [address] [place] [address] 04/13/2025 [facility] Attendance[facility] [place] [facility] [address] [place] [address] 04/13/2025 7:30 AM EDT PACE Home Care / [facility] [address] [place] [phone] Cheryle Pryor 04/13/2025 9:00 AM EDT [facility] Att[facility] [facility] [place] [facility] [address] [place] [phone] 04/14/2025 7:30 AM EDT PACE Home Care / [facility] [address] [place] [phone] Cheryle Pryor 04/14/2025 10:30 AM EDT PACE Home Care / [facility] [address] [place] [phone] Cheryle Pryor 04/14/2025 1:00 PM EDT Clinical Support Lung Screening Program - [address] [place] [phone] 04/15/2025 7:30 AM EDT PACE Home Care / [facility] [address] [place] [phone] Cheryle Pryor 04/15/2025 9:00 AM EDT [facility] Att[facility] [facility] [place] [facility] [address] [place] [address] 04/16/2025 7:30 AM EDT PACE Home Care / [facility] [address] [place] [phone] Cheryle Pryor 04/17/2025 7:30 AM EDT PACE Home Care / [facility] [place] [facility] [address] [place] [phone] Shawna Lebron 04/17/2025 10:30 AM EDT PACE Home Care / [facility] [address] [place] [phone] Jhoana Grijalva 04/18/2025 7:30 AM EDT PACE Home Care / P[facility] [place] [facility] [address] [place] [phone] Jhoana Grijalva 04/19/2025 7:30 AM EDT PACE Home Care / [facility] [place] [facility] [address] [place] [phone] Jhoana Grijalva 04/20/2025 PACE Attendance[facility] [place] [facility] [address] [place] [phone] 04/20/2025 7:30 AM EDT PACE Home Care / [facility] [address] [place] [phone] Cheryle Pryor 04/20/2025 9:00 AM EDT P[facility] Att[facility] [place] [facility] [address] [place] [phone] 04/21/2025 7:30 AM EDT PACE Home Care / P[facility] [address] [place] [phone] Cheryle Pryor 04/21/2025 10:30 AM EDT PACE Home Care / [facility] [place] [facility] [address] [place] [phone] Cheryle Pryor 04/22/2025 7:30 AM EDT PACE Home Care / [facility] [address] [place] [address] Cheryle Pryor 04/22/2025 9:00 AM EDT [facility] [place] [facility] [address] [place] [phone] 04/23/2025 7:30 AM EDT PACE Home Care / [facility] [address] [place] [phone] Cheryle Pryor 04/24/2025 11:30 AM EDT PACE Home Care / [facility] [address] [place] [phone] Juanito Wasserman 04/25/2025 7:30 AM EDT PACE Home Care / [facility] [address] [place] [phone] Cheryle Pryor 04/26/2025 7:30 AM EST PACE Home Care / [facility] [address] [place] [phone] Cheryle Pryor 04/27/2025 [facility] [place] [facility] [address] [place] [address] 04/27/2025 7:30 AM EST PACE Home Care / [facility] [address] [place] [phone] Cheryle Pryor 04/27/2025 9:00 AM EST [facility] [place] [facility] [address] [place] [address] 04/28/2025 7:30 AM EST PACE Home Care / [facility] [address] [place] [address] Cheryle Pryor 04/28/2025 10:30 AM EST PACE Home Care / [facility] [address] [place] [address] Cheryle Pryor 04/29/2025 7:30 AM EST PACE Home Care / [facility] [address] [place] [address] Cheryle Pryor 04/29/2025 9:00 AM EST [facility] [place] [facility] [address] [place] [address] 04/30/2025 7:30 AM EST PACE Home Care / [facility] [address] [place] [address] Cheryle Pryor 05/01/2025 7:30 AM EST PACE Home Care / [facility] [address] [place] [phone] Shawna Lebron 05/01/2025 10:30 AM EST PACE Home Care / [facility] [address] [place] [phone] Jhoana Grijalva 05/02/2025 7:30 AM EST PACE Home Care / [facility] [address] [place] [phone] Jhoana Grijalva 05/03/2025 7:30 AM EST PACE Home Care / [facility] [address] [place] [phone] Jhoana Grijalva 05/04/2025 [facility] [place] [facility] [address] [place] [address] 05/04/2025 7:30 AM EST PACE Home Care / [facility] [address] [place] [phone] Cheryle Pryor 05/04/2025 9:00 AM EST [facility] [place] [facility] [address] [place] [phone] 05/05/2025 7:30 AM EST PACE Home Care / [facility] Visit [facility] [address] [place] [phone] Cheryle Pryor 05/05/2025 10:30 AM EST PACE Home Care / [facility] Visit [facility] [address] [place] [phone] Cheryle Pryor 05/06/2025 7:30 AM EST PACE Home Care / [facility] [place] [facility] [address] [place] [phone] Cheryle Pryor 05/06/2025 9:00 AM EST [facility] [facility] [place] [address] [address] 05/07/2025 7:30 AM EST PACE Home Care / [facility] [address] [place] [phone] Cheryle Pryor 05/07/2025 9:00 AM EST Appointment [facility] Endoscopy [address] [place] [phone] Rambo Barlow MD [address] [address] 05/08/2025 7:30 AM EST PACE Home Care / [facility] [address] [place] [phone] Shawna Lebron 05/08/2025 10:30 AM EST PACE Home Care / [facility] [address] [place] [phone] Jhoana Grijalva 05/09/2025 7:30 AM EST PACE Home Care / [facility] [address] [place] [phone] Cheryle Pryor 05/10/2025 7:30 AM EST PACE Home Care / [facility] [address] [place] [phone] Cheryle Pryor 05/11/2025 [facility] [facility] [place] [facility] [address] [place] [phone] 05/11/2025 7:30 AM EST PACE Home Care / [facility] [address] [place] [phone] Cheryle Pryor 05/11/2025 9:00 AM EST [facility] [place] [facility] [address] [place] [phone] 05/12/2025 7:30 AM EST PACE Home Care / [facility] [address] [place] [phone] Cheryle Pryor 05/12/2025 10:30 AM EST PACE Home Care / [facility] [address] [place] [phone] Cheryle Pryor 05/13/2025 7:30 AM EST PACE Home Care / [facility] [address] [place] [phone] Cheryle Pryor 05/13/2025 9:00 AM EST [facility] [place] [facility] [address] [place] [phone] 05/14/2025 7:30 AM EST PACE Home Care / [facility] [address] [place] [phone] Cheryle Pryor 05/15/2025 7:30 AM EST PACE Home Care / [facility] [address] [place] [phone] Shawna Lebron 05/15/2025 10:30 AM EST PACE Home Care / [facility] [address] [place] [phone] Jhoana Grijalva 05/16/2025 7:30 AM EST PACE Home Care / [facility] [address] [place] [phone] Jhoana Grijalva 05/17/2025 7:30 AM EST PACE Home Care / [facility] [address] [place] [phone] Jhoana Grijalva 05/18/2025 [facility] [place] [facility] [address] [place] [phone] 05/18/2025 7:30 AM EST PACE Home Care / [facility] [address] [place] [phone] Cheryle Pryor 05/18/2025 9:00 AM EST [facility] [place] [facility] [address] [place] [phone] 05/19/2025 7:30 AM EST PACE Home Care / [facility] [address] [place] [phone] Cheryle Pryor 05/19/2025 10:30 AM EST PACE Home Care / [facility] [address] [place] [phone] Cheryle Pryor 05/20/2025 7:30 AM EST PACE Home Care / [facility] [address] [place] [phone] Cheryle Pryor 05/20/2025 9:00 AM EST [facility] [facility] [place] [facility] [address] [place] [phone] 05/21/2025 7:30 AM EST PACE Home Care / [facility] [address] [place] [phone] Cheryle Pryor 05/22/2025 7:30 AM EST PACE Home Care / [facility] [address] [place] [phone] Shawna Lebron 05/22/2025 10:30 AM EST PACE Home Care / [facility] [address] [place] [phone] Jhoana Grijalva 05/23/2025 7:30 AM EST PACE Home Care / [facility] [address] [place] [phone] Cheryle Pryor 05/24/2025 7:30 AM EST PACE Home Care / [facility] [address] [place] [phone] Cheryle Pryor 05/25/2025 [facility] [place] [facility] [address] [place] [phone] 05/25/2025 7:30 AM EST PACE Home Care / [facility] [address] [place] [address] Cheryle Pryor 05/25/2025 9:00 AM EST [facility] [place] [facility] [facility] [address] [place] [address] 05/26/2025 7:30 AM EST PACE Home Care / [facility] [address] [place] [address] Cheryle Pryor 05/26/2025 10:30 AM EST PACE Home Care / [facility] [address] [place] [phone] Cheryle Pryor 05/27/2025 7:30 AM EST PACE Home Care / [facility] [address] [place] [phone] Cheryle Pryor 05/27/2025 9:00 AM EST [facility] Att[facility] [place] [facility] [facility] [address] [place] [address] 05/28/2025 7:30 AM EST PACE Home Care / [facility] [address] [place] [phone] Cheryle Pryor 05/29/2025 7:30 AM EST PACE Home Care / [facility] [address] [place] [phone] Shawna Lebron 05/29/2025 10:30 AM EST PACE Home Care / [facility] [address] [place] [phone] Jhoana Grijalva 05/30/2025 7:30 AM EST PACE Home Care / [facility] [address] [place] [address] Jhoana Grijalva 05/31/2025 7:30 AM EST PACE Home Care / [facility] [address] [place] [address] Jhoana Grijalva 06/01/2025 [facility] [place] [facility] [address] [place] [address] 06/01/2025 7:30 AM EST PACE Home Care / [facility] [address] [place] [phone] Cheryle Pryor 06/01/2025 9:00 AM EST [facility] [place] [facility] [address] [place] [phone] 06/02/2025 7:30 AM EST PACE Home Care / [facility] [address] [place] [phone] Cheryle Pryor 06/02/2025 10:30 AM EST PACE Home Care / [facility] [address] [place] [phone] Cheryle Pryor 06/03/2025 7:30 AM EST PACE Home Care / [facility] [address] [place] [phone] Cheryle Pryor 06/03/2025 9:00 AM EST [facility] [place] [facility] [address] [place] [phone] 06/04/2025 7:30 AM EST PACE Home Care / [facility] [address] [place] [phone] Cheryle Pryor 06/05/2025 7:30 AM EST PACE Home Care / [facility] [address] [place] [address] Shawna Lebron 06/05/2025 10:30 AM EST PACE Home Care / [facility] [address] [place] [address] Jhoana Grijalva 06/06/2025 7:30 AM EST PACE Home Care / [facility] [address] [place] [address] Cheryle Pryor 06/07/2025 7:30 AM EST PACE Home Care / [facility] [address] [place] [address] Cheryle Pryor 06/08/2025 [facility] Att[facility] [place] [facility] [address] [place] [address] 06/08/2025 9:00 AM EST [facility] [place] [facility] [address] [place] [address] 06/10/2025 9:00 AM EST [facility] [place] [facility] [address] [place] [address] 06/15/2025 [facility] Att[facility] [place] [facility] [address] [place] [address] 06/15/2025 9:00 AM EST [facility] [place] [facility] [address] [place] [address] 06/17/2025 9:00 AM EST [facility] [place] [facility] [address] [place] [address] 06/22/2025 [facility] Att[facility] [place] [facility] [facility] [address] [place] [address] 06/22/2025 9:00 AM EST [facility] [place] [facility] [facility] [address] [place] [address] 06/24/2025 9:00 AM EST [facility] [place] [facility] [address] [place] [phone] 06/29/2025 PACE Attendance[facility] [place] [facility] [address] [place] [phone] 06/29/2025 9:00 AM EST [facility] [place] [facility] [address] [place] [phone] 07/01/2025 9:00 AM EST [facility] [place] [facility] [address] [place] [address] 07/06/2025 P[facility] Attendance[facility] [place] [facility] [address] [place] [address] 07/06/2025 9:00 AM EST [facility] [place] [facility] [address] [place] [phone] 2025 9:00 AM EST [facility] [place] [facility] [address] [place] [phone] 07/13/2025 [facility] [place] [facility] [address] [place] [phone] 07/13/2025 9:00 AM EST [facility] [place] [address] [place] [phone] 07/15/2025 9:00 AM EST [facility] [place] [facility] [address] [place] [phone] 07/20/2025 [facility] Att[facility] [place] [facility] [facility] [address] [place] [address] 07/20/2025 9:00 AM EST [facility] [place] [facility] [address] [place] [phone] 07/22/2025 9:00 AM EST [facility] [place] [facility] [address] [place] [phone] 07/27/2025 [facility] Att[facility] [place] [facility] [address] [place] [address] 07/27/2025 9:00 AM EST [facility] [place] [facility] [address] [place] [phone] 07/29/2025 9:00 AM EST [facility] [place] [address] [place] [phone] 08/03/2025 [facility] Att[facility] [place] [facility] [facility] [address] [place] [phone] 08/03/2025 9:00 AM EST [facility] [place] [facility] [address] [place] [address] 08/05/2025 9:00 AM EST [facility] [place] [facility] [address] [place] [address] 08/10/2025 [facility] Att[facility] [place] [facility] [address] [place] [phone] 08/12/2025 9:00 AM EST [facility] [place] [facility] [facility] [address] [place] [phone] 08/17/2025 [facility] Att[facility] [place] [facility] [address] [place] [address] 08/19/2025 9:00 AM EST [facility] [place] [facility] [facility] [address] [place] [address] 08/24/2025 [facility] Att[facility] [place] [facility] [address] [place] [phone] 08/26/2025 9:00 AM EST [facility] [place] [facility] [address] [place] [phone] 08/31/2025 [facility] Att[facility] [place] [facility] [address] [place] [phone] 09/02/2025 9:00 AM EDT [facility] Att[facility] [place] [facility] [address] [place] [address] 09/07/2025 [facility] Att[facility] [place] [facility] [address] [place] [address] 09/09/2025 9:00 AM EDT [facility] Attend[facility] [place] [facility] [address] [place] [phone] 09/14/2025 PACE Attendance[facility] [address] [place] [address] 09/16/2025 9:00 AM EDT [facility] Att[facility] [place] [facility] [address] [place] [address] 09/21/2025 [facility] Att[facility] [place] [facility] [address] [place] [phone] 09/23/2025 9:00 AM EDT [facility] [place] [facility] [address] [place] [phone] 09/28/2025 [facility] Att[facility] [place] [facility] [address] [place] [address] 09/30/2025 9:00 AM EDT [facility] Att[facility] [place] [facility] [address] [place] [address] 10/05/2025 [facility] Attend[facility] [place] [facility] [address] [place] [address] 10/07/2025 9:00 AM EDT [facility] Att[facility] [place] [facility] [address] [place] [address] 10/12/2025 [facility] Att[facility] [place] [facility] [address] [place] [address] 10/14/2025 9:00 AM EDT [facility] [place] [facility] [address] [place] [address] 10/19/2025 [facility] Att[facility] [place] [facility] [address] [place] [address] 10/21/2025 9:00 AM EDT [facility] Att[facility] [place] [facility] [address] [place] [address] 10/26/2025 [facility] Att[facility] [place] [facility] [address] [place] [address] 10/28/2025 9:00 AM EDT [facility] Att[facility] [place] [facility] [address] [place] [address] 11/02/2025 [facility] Att[facility] [place] [facility] [address] [place] [phone] 11/04/2025 9:00 AM EDT [facility] Att[facility] [place] [facility] [address] [place] [phone] 11/09/2025 [facility] Att[facility] [place] [facility] [address] [place] [address] 11/11/2025 9:00 AM EDT [facility] Att[facility] [place] [facility] [address] [place] [address] 11/16/2025 [facility] Att[facility] [place] [facility] [address] [place] [address] 11/18/2025 9:00 AM EDT [facility] Att[facility] [place] [facility] [address] [place] [address] 11/23/2025 [facility] Att[facility] [place] [facility] [address] [place] [address] 11/25/2025 9:00 AM EDT [facility] Att[facility] [place] [facility] [address] [place] [phone] 11/30/2025 [facility] [place] [facility] [address] [place] [address] 12/02/2025 9:00 AM EDT [facility] Att[facility] [place] [facility] [address] [place] [address] 12/07/2025 [facility] Att[facility] [place] [facility] [address] [place] [address] 12/09/2025 9:00 AM EDT [facility] Att[facility] [place] [facility] [address] [place] [address] 12/14/2025 P[facility] Attend[facility] [place] [facility] [address] [place] [address] 12/16/2025 9:00 AM EDT P[facility] Attend[facility] [place] [facility] [address] [place] [address] 12/21/2025 P[facility] Attend[facility] [place] [facility] [address] [place] [address] 12/23/2025 9:00 AM EDT [facility] Att[facility] [place] [facility] [address] [place] [address] 12/28/2025 [facility] Att[facility] [place] [facility] [address] [place] [address] 12/30/2025 9:00 AM EDT [facility] Att[facility] [place] [facility] [address] [place] [address] 01/04/2026 [facility] [place] [facility] [address] [place] [address] 01/06/2026 9:00 AM EDT [facility] Att[facility] [place] [facility] [address] [place] [address] 01/11/2026 [facility] [place] [facility] [address] [place] [address] 01/13/2026 9:00 AM EDT [facility] [place] [facility] [address] [place] [address] 01/18/2026 [facility] [place] [facility] [address] [place] [phone] 01/20/2026 9:00 AM EDT [facility] [place] [facility] [address] [place] [phone] 01/25/2026 [facility] [place] [facility] [address] [place] [phone] 01/27/2026 9:00 AM EDT [facility] [place] [facility] [address] [place] [phone] 02/01/2026 [facility] [place] [facility] [address] [place] [phone] 02/03/2026 9:00 AM EDT [facility] [place] [facility] [address] [place] [phone] 02/08/2026 [facility] [place] [facility] [address] [place] [phone] 02/10/2026 9:00 AM EDT [facility] [place] [facility] [address] [place] [phone] 02/15/2026 [facility] [place] [facility] [address] [place] [phone] 02/17/2026 9:00 AM EDT [facility] [place] [facility] [address] [place] [phone] 02/22/2026 [facility] [place] [facility] [address] [place] [phone] 02/24/2026 9:00 AM EDT [facility] [place] [facility] [address] [place] [phone] 03/03/2026 9:00 AM EDT [facility] [place] [facility] [address] [place] [phone] 03/10/2026 9:00 AM EDT [facility] [place] [facility] [address] [place] [phone] 03/17/2026 9:00 AM EDT [facility] [place] [facility] [address] [place] [phone] 03/24/2026 9:00 AM EDT [facility] [place] [facility] [address] [place] [phone] 03/31/2026 9:00 AM EDT [facility] [place] [facility] [address] [place] [phone] 04/07/2026 9:00 AM EDT [facility] [place] [facility] [address] [place] [phone] 04/14/2026 9:00 AM EDT [facility] Kaitlynn NICO[facility] [address] [place] [phone] 04/21/2026 9:00 AM EDT [facility] [place] [facility] [address] [place] [phone] documented as of this encounter Procedures Procedure [...] mirabilis(A ) ANNETTA 07/06/2024 11:50 AM EST [facility] Comment: Edited result: Previously reported [...] Trimethoprim/Sulfamethoxazole ANNETTA >=320 ug/ml: Resistant Dede Pimentel NP LAB MICROBIOLOGY - GENERAL OR DERABLES Final Result [facility] [address] [place] [address], * Fernandez urine culture tube (07/04/2024 8:00 AM EST) Extra Tube Hold for add-ons. 07/04/2024 3:02 PM EST [facility] Comment:Auto resulted. Urine Urine specimen obtained by clean catch procedure / Unknown 07/04/2024 8:00 AM EST 07/04/2024 1:35 PM EST Dede Jessica Somersa RECEIVABLE EXECUTIVE LAB URINE ORDERABLES Final Re sult [facility] [address] [place] [address], [place] [phone] * (ABNORMAL) Urinalysis with reflex microscopic and culture (07/04/2024 8:00 AM EST) Specific [place] Urine 1.036(H) 1.003 - 1.030 LAB URINALYSIS - AUTOMATED METHOD 07/04/2024 2:20 PM [facility] pH, Urine 8.0 5.0 - 8.0 pH LAB URINALYSIS - AUTOMATED METHOD 07/04/2024 2:20 PM [facility] Leukocytes, Urine Moderate(A) Negative LAB URINALYSIS - AUTOMATED METHOD 07/04/2024 2:20 PM [facility] Nitrite, Urine Positive(A) Negative LAB URINALYSIS - AUTOMATED METHOD 07/04/2024 2:20 PM [facility] Protein, Urine 100(A) <=Trace mg/dL LAB URINALYSIS - AUTOMATED METHOD 07/04/2024 2:20 PM [facility] Glucose, Urine Negative Negative mg/dL LAB URINALYSIS - AUTOMATED METHOD 07/04/2024 2:20 PM [facility] Ketones, Urine Trace(A) Negative mg/dL LAB URINALYSIS - AUTOMATED METHOD 07/04/2024 2:20 PM [facility] Urobilinogen , Urine 1.0 0.2 - 1.0 mg/dL LAB URINALYSIS - AUTOMATED METHOD 07/04/2024 2:20 PM [facility] Bilirubin, Urine Negative Negative LAB URINALYSIS - AUTOMATED METHOD 07/04/2024 2:20 PM [facility] Blood, Urine Trace(A) Negative LAB URINALYSIS - AUTOMATED METHOD 07/04/2024 2:20 PM [facility] RBC, Urine 14.3(H) 0 - 4 /HPF LAB URINALYSIS - AUTOMATED METHOD 07/04/2024 2:20 PM [facility] WBC, Urine 295.7(H) 0 - 4 /HPF LAB URINALYSIS - AUTOMATED METHOD 07/04/2024 2:20 PM [facility] Squamous Epithelial, Urine 64(H) 0 - 60 /LPF LAB URINALYSIS - AUTOMATED METHOD 07/04/2024 2:20 PM [facility] Crystals, Urine LT TRIPLE PHOSPHATE /LPF LAB URINALYSIS - AUTOMATED METHOD 07/04/2024 2:20 PM [facility] Bacteria, Urine Many(A) Negative /HPF LAB URINALYSIS - AUTOMATED METHOD 07/04/2024 2:20 PM [facility] Hyaline Casts, Urine 4.2(H) 0 - 3 /LPF LAB URINALYSIS - AUTOMATED METHOD 07/04/2024 2:20 PM [facility] Urine Urine specimen obtained by clean catch procedure / Unknown 07/04/2024 8:00 AM EST 07/04/2024 1:35 PM EST Dede Pimentel NP LAB URINE ORDERABLES Final Re sult [facility] [address] [place] [address], documented in this encounter Visit Diagnoses Diagnosis Encounter for general adult medical examination without abnormal findings Encounter for screening mammogram for malignant neoplasm of breast Encounter for screening for osteoporosis Other specified disorders of bone density and structure, multiple sites Encounter for screening for malignant neoplasm of colon documented in this encounter Care Teams Valet Relationship Specialty Start Date End Date Dede Pimentel, TAYA [address] [address] PCP - General Family Medicine 05/02/24 documented as of this encounter
--- OUTSIDE RECORDS SUMMARY | 2025-04-08 16:18 | XMS_ITS | Encounter Summary ---
Author Organization [facility] Address [address] [place] [address] Care Team Providers Care Transport Engineer Name Role Phone Dede Pimentel ACTUARIAL ASSOCIATE Primary Care Provider [phone] Reason for Visit * Reason Onset Date Comments Clinical 12/11/2024 Par called to re port she is having bladder infection symptoms. States there is burning, pain and urine is cloudy. Continued to state she gets this type of infection at least monthly. 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 IDT to f/u next day. Encounter Details Date Type Department Care Team (Late st Contact Info) Description 12/11/2024 PACE On-Call [facility] [address] [place] [phone] Dede Pimentel NP 200 [facility] [address] [place] [address] Social History Tobacco Use Types Packs/Day Years Used Date Smoking Tobacco: Every Day Cigarettes 0.5 45.8 Started: 1979 Smokeless Tobacco: Current Comments:cigs per day : 6 Calculated quantity/packs per year: 2190 Alcohol Use Standard Drinks/Week Comments Not Currently 1 (1 standard drink = 0.6 oz pur e alcohol) Interpersonal Safety Answer Date Record ed Physical Abuse Unrecognized value 12/09/2024 Verbal Abuse Unrecognized value 12/09/2024 Comments No Sex and Gender Information Value [...] EDT Clinical Support Kaitlynn NICOLE [place] [address] [place] [address] 04/13/2025 PACE Attendance/[place] [facility] [place] [facility] [place] [facility] [address] [place] [phone] 04/13/2025 7:30 AM EDT PACE Home Care / PACE Home Visit [facility] [place] [facility] [address] [place] [phone] Cheryle Pryor 04/13/2025 9:00 AM EDT PACE Attendance/Day [place] [facility] [place] [address] [address] 04/14/2025 7:30 AM EDT PACE Home Care / PACE Home Visit [facility] [place] [facility] [address] [place] [phone] Cheryle Pryor 04/14/2025 10:30 AM EDT PACE Home Care / PACE Home Visit [facility] [place] [facility] [address] [place] [phone] Cheryle Pryor 04/14/2025 1:00 PM EDT Clinical Support Lung Screening Program - [address] [phone] 04/15/2025 7:30 AM EDT PACE Home Care / PACE Home Visit [facility] [place] [facility] [address] [place] [phone] Cheryle Pryor 04/15/2025 9:00 AM EDT [place] [facility] [place] [facility] [address] [place] [phone] 04/16/2025 7:30 AM EDT PACE Home Care / [facility] [place] [facility] [address] [place] [phone] Cheryle Pryor 04/17/2025 7:30 AM EDT PACE Home Care / [place] [facility] [place] [facility] [place] [facility] [address] [place] [phone] Shawna Lebron 04/17/2025 10:30 AM EDT PACE Home Care / [place] [facility] [place] [facility] [address] [place] [phone] Jhoana Grijalva 04/18/2025 7:30 AM EDT PACE Home Care / [place] [facility] [place] [facility] [place] [facility] [address] [place] [phone] Jhoana Grijalva 04/19/2025 7:30 AM EDT PACE Home Care / [facility] [place] [facility] [address] [place] [phone] Jhoana Grijalva 04/20/2025 [place] Attendance[place] [facility] [place] [facility] [address] [place] [phone] 04/20/2025 7:30 AM EDT PACE Home Care / [place] [facility] [place] [facility] [place] [facility] [address] [place] [phone] Cheryle Pryor 04/20/2025 9:00 AM EDT [place] [facility] [place] [facility] [address] [place] [phone] 04/21/2025 7:30 AM EDT PACE Home Care / [place] [facility] [place] [facility] [address] [place] [address] Cheryle Pryor 04/21/2025 10:30 AM EDT PACE Home Care / [place] [facility] [place] [facility] [address] [place] [address] Cheryle Pryor 04/22/2025 7:30 AM EDT PACE Home Care / [place] [facility] [place] [facility] [place] [facility] [address] [place] [address] Cheryle Pryor 04/22/2025 9:00 AM EDT [facility] Att[place] [facility] [place] [facility] [address] [place] [phone] 04/23/2025 7:30 AM EDT PACE Home Care / [facility] [facility] [place] [facility] [place] [facility] [address] [place] [phone] Cheryle Pryor 04/24/2025 11:30 AM EDT PACE Home Care / [place] [facility] [place] [facility] [place] [facility] [address] [place] [phone] Juanito Wasserman 04/25/2025 7:30 AM EDT PACE Home Care / [place] [facility] [place] [facility] [address] [place] [phone] Cheryle Pryor 04/26/2025 7:30 AM EST PACE Home Care / [place] [place] [facility] [place] [facility] [address] [place] [phone] Cheryle Pryor 04/27/2025 [place] Attendance[place] [facility] [place] [facility] [address] [place] [phone] 04/27/2025 7:30 AM EST PACE Home Care / [place] [facility] [place] [facility] [address] [place] [phone] Cheryle Pryor 04/27/2025 9:00 AM EST [facility] Att[place] [facility] [place] [facility] [address] [place] [address] 04/28/2025 7:30 AM EST PACE Home Care / [place] [facility] [place] [facility] [place] [facility] [address] [place] [phone] Cheryle Pryor 04/28/2025 10:30 AM EST PACE Home Care / [place] [facility] [place] [facility] [place] [facility] [address] [place] [phone] Cheryle Pryor 04/29/2025 7:30 AM EST PACE Home Care / [place] [facility] [place] [facility] [address] [place] [phone] Cheryle Pryor 04/29/2025 9:00 AM EST [facility] [facility] [place] [facility] [address] [place] [address] 04/30/2025 7:30 AM EST PACE Home Care / [place] [facility] [place] [facility] [address] [place] [phone] Cheryle Pryor 05/01/2025 7:30 AM EST PACE Home Care / [place] [facility] [place] [facility] [address] [place] [phone] Shawna Lebron 05/01/2025 10:30 AM EST PACE Home Care / [place] [facility] [place] [facility] [address] [place] [phone] Jhoana Grijalva 05/02/2025 7:30 AM EST PACE Home Care / [place] [facility] [place] [facility] [address] [place] [phone] Jhoana Grijalva 05/03/2025 7:30 AM EST PACE Home Care / [place] [facility] [place] [facility] [address] [place] [phone] Jhoana Grijalva 05/04/2025 [place] Att[place]ance[place] [facility] [place] [facility] [address] [place] [phone] 05/04/2025 7:30 AM EST PACE Home Care / [place] [facility] [place] [facility] [address] [place] [phone] Cheryle Pryor 05/04/2025 9:00 AM EST [facility] [facility] [place] [facility] [address] [place] [phone] 05/05/2025 7:30 AM EST PACE Home Care / [facility] [facility] [place] [facility] [address] [place] [phone] Cheryle Pryor 05/05/2025 10:30 AM EST PACE Home Care / [place] [facility] [place] [facility] [place] [facility] [address] [place] [phone] Cheryle Pryor 05/06/2025 7:30 AM EST PACE Home Care / [place] [facility] [place] [facility] [address] [place] [phone] Cheryle Pryor 05/06/2025 9:00 AM EST [facility] [facility] [place] [facility] [address] [place] [phone] 05/07/2025 7:30 AM EST PACE Home Care / [place] [facility] [place] [facility] [address] [place] [phone] Cheryle Pryor 05/07/2025 9:00 AM EST Appointment [address] [phone] Rambo Barlow MD [address] [place] [address] 05/08/2025 7:30 AM EST PACE Home Care / [facility] [facility] [place] [facility] [address] [place] [phone] Shawna Lebron 05/08/2025 10:30 AM EST PACE Home Care / [place] [facility] [place] [facility] [address] [place] [phone] Jhoana Grijalva 05/09/2025 7:30 AM EST PACE Home Care / [place] [facility] [place] [facility] [address] [place] [phone] Cheryle Pryor 05/10/2025 7:30 AM EST PACE Home Care / [place] [facility] [place] [facility] [address] [place] [phone] Cheryle Pryor 05/11/2025 [place] Attendance[place] [facility] [place] [facility] [address] [place] [phone] 05/11/2025 7:30 AM EST PACE Home Care / [place] [facility] [place] [facility] [place] [facility] [address] [place] [phone] Cheryle Pryor 05/11/2025 9:00 AM EST [facility] Att[place] [facility] [place] [facility] [address] [place] [phone] 05/12/2025 7:30 AM EST PACE Home Care / [place] [facility] [place] [facility] [address] [place] [phone] Cheryle Pryor 05/12/2025 10:30 AM EST PACE Home Care / [place] [facility] [place] [facility] [place] [facility] [address] [place] [phone] Cheryle Pryor 05/13/2025 7:30 AM EST PACE Home Care / [place] [facility] [place] [facility] [place] [facility] [address] [place] [phone] Cheryle Pryor 05/13/2025 9:00 AM EST [facility] [facility] [place] [facility] [address] [place] [phone] 05/14/2025 7:30 AM EST PACE Home Care / [place] [facility] [place] [facility] [place] [facility] [address] [place] [phone] Cheryle Pryor 05/15/2025 7:30 AM EST PACE Home Care / [place] [facility] [place] [facility] [place] [facility] [address] [place] [phone] Shawna Lebron 05/15/2025 10:30 AM EST PACE Home Care / [place] [facility] [place] [facility] [place] [facility] [address] [place] [phone] Jhoana Grijalva 05/16/2025 7:30 AM EST PACE Home Care / [place] [facility] [place] [facility] [place] [facility] [address] [place] [phone] Jhoana Grijalva 05/17/2025 7:30 AM EST PACE Home Care / [place] [facility] [place] [facility] [place] [facility] [address] [place] [phone] Jhoana Grijalva 05/18/2025 [place] Attendance[place] [facility] [place] [facility] [address] [place] [phone] 05/18/2025 7:30 AM EST PACE Home Care / [facility] [place] [facility] [place] [facility] [address] [place] [phone] Cheryle Pryor 05/18/2025 9:00 AM EST [place] [facility] [place] [facility] [address] [place] [address] 05/19/2025 7:30 AM EST PACE Home Care / [facility] [facility] [place] [facility] [place] [facility] [address] [place] [address] Cheryle Pryor 05/19/2025 10:30 AM EST PACE Home Care / [place] [place] [facility] [place] [facility] [address] [place] [phone] Cheryle Pryor 05/20/2025 7:30 AM EST PACE Home Care / [place] [facility] [place] [facility] [place] [facility] [address] [place] [phone] Cheryle Pryor 05/20/2025 9:00 AM EST [facility] [facility] [place] [facility] [address] [place] [address] 05/21/2025 7:30 AM EST PACE Home Care / [place] [facility] [place] [facility] [place] [facility] [address] [place] [phone] Cheryle Pryor 05/22/2025 7:30 AM EST PACE Home Care / [place] [facility] [place] [facility] [place] [facility] [address] [place] [phone] Shawna Lebron 05/22/2025 10:30 AM EST PACE Home Care / [place] [facility] [place] [facility] [place] [facility] [address] [place] [phone] Jhoana Grijalva 05/23/2025 7:30 AM EST PACE Home Care / [place] [facility] [place] [facility] [place] [facility] [address] [place] [phone] Cheryle Pryor 05/24/2025 7:30 AM EST PACE Home Care / [place] [facility] [place] [facility] [place] [facility] [address] [place] [phone] Cheryle Pryor 05/25/2025 [place] Attendance[place] [facility] [place] [facility] [address] [place] [phone] 05/25/2025 7:30 AM EST PACE Home Care / [place] [facility] [place] [facility] [place] [facility] [address] [place] [phone] Cheryle Pryor 05/25/2025 9:00 AM EST [place] [facility] [place] [facility] [address] [place] [phone] 05/26/2025 7:30 AM EST PACE Home Care / [place] [facility] [place] [facility] [address] [place] [phone] Cheryle Pryor 05/26/2025 10:30 AM EST PACE Home Care / [place] [facility] [place] [facility] [place] [facility] [address] [place] [phone] Cheryle Pryor 05/27/2025 7:30 AM EST PACE Home Care / [facility] [place] [facility] [address] [place] [phone] Cheryle Pryor 05/27/2025 9:00 AM EST [place] [facility] [place] [facility] [address] [place] [phone] 05/28/2025 7:30 AM EST PACE Home Care / [place] [facility] [place] [facility] [address] [place] [phone] Cheryle Pryor 05/29/2025 7:30 AM EST PACE Home Care / [place] [facility] [place] [facility] [address] [place] [phone] Shawna Lebron 05/29/2025 10:30 AM EST PACE Home Care / [facility] [place] [facility] [address] [place] [address] Jhoana Grijalva 05/30/2025 7:30 AM EST PACE Home Care / [facility] [place] [facility] [address] [place] [address] Jhoana Grijalva 05/31/2025 7:30 AM EST PACE Home Care / [facility] [place] [facility] [place] [facility] [address] [place] [address] Jhoana Grijalva 06/01/2025 [facility] Attendance[place] [facility] [place] [facility] [address] [place] [address] 06/01/2025 7:30 AM EST PACE Home Care / [facility] [place] [facility] [place] [facility] [address] [place] [address] Cheryle Pryor 06/01/2025 9:00 AM EST [facility] Att[place] [facility] [place] [facility] [address] [place] [address] 06/02/2025 7:30 AM EST PACE Home Care / [facility] [place] [facility] [address] [place] [address] Cheryle Pryor 06/02/2025 10:30 AM EST PACE Home Care / [facility] [place] [facility] [address] [place] [address] Cheryle Pryor 06/03/2025 7:30 AM EST PACE Home Care / [facility] [place] [facility] [address] [place] [address] Cheryle Pryor 06/03/2025 9:00 AM EST [facility] Att[place] [facility] [place] [facility] [address] [place] [address] 06/04/2025 7:30 AM EST PACE Home Care / [facility] [place] [facility] [address] [place] [address] Cheryle Pryor 06/05/2025 7:30 AM EST PACE Home Care / [facility] [place] [facility] [address] [place] [address] Shawna Lebron 06/05/2025 10:30 AM EST PACE Home Care / [facility] [place] [facility] [address] [place] [phone] Jhoana Grijalva 06/06/2025 7:30 AM EST PACE Home Care / [facility] [facility] [place] [facility] [address] [place] [phone] Cheryle Pryor 06/07/2025 7:30 AM EST PACE Home Care / [facility] [place] [facility] [place] [facility] [address] [place] [phone] Cheryle Pryor 06/08/2025 PACE Attendance[place] [facility] [place] [facility] [address] [place] [phone] 06/08/2025 9:00 AM EST [facility] Attend[place] [facility] [place] [facility] [address] [place] [phone] 06/10/2025 9:00 AM EST [facility] [place] [facility] [place] [facility] [address] [place] [phone] 06/15/2025 P[place] Attend[place] [facility] [place] [facility] [address] [place] [phone] 06/15/2025 9:00 AM EST [facility] [facility] [place] [facility] [address] [place] [phone] 06/17/2025 9:00 AM EST [facility] Attend[facility] [place] [facility] [address] [place] [address] 06/22/2025 P[facility] Attendance[facility] [place] [facility] [address] [place] [address] 06/22/2025 9:00 AM EST [facility] [place] [facility] [place] [facility] [address] [place] [address] 06/24/2025 9:00 AM EST [facility] [place] [facility] [address] [place] [address] 06/29/2025 [facility] [place] [facility] [address] [place] [phone] 06/29/2025 9:00 AM EST [facility] Attend[facility] [place] [facility] [address] [place] [address] 07/01/2025 9:00 AM EST [facility] [place] [facility] [address] [place] [address] 07/06/2025 P[facility] Attendance[facility] [place] [facility] [address] [place] [phone] 07/06/2025 9:00 AM EST [facility] [place] [facility] [address] [place] [address] 2025 9:00 AM EST [facility] Attend[facility] [place] [facility] [address] [place] [address] 07/13/2025 P[facility] Attendance[facility] [facility] [place] [facility] [address] [place] [address] 07/13/2025 9:00 AM EST [facility] Att[facility] [place] [facility] [address] [place] [address] 07/15/2025 9:00 AM EST [facility] [place] [facility] [address] [place] [address] 07/20/2025 P[facility] Attend[facility] [place] [facility] [address] [place] [phone] 07/20/2025 9:00 AM EST [facility] [place] [facility] [address] [place] [address] 07/22/2025 9:00 AM EST [facility] [place] [facility] [address] [place] [address] 07/27/2025 PACE Attendance[facility] [place] [facility] [place] [facility] [address] [place] [phone] 07/27/2025 9:00 AM EST [facility] Attend[facility] [place] [facility] [place] [facility] [address] [place] [address] 07/29/2025 9:00 AM EST [facility] [place] [facility] [address] [place] [address] 08/03/2025 PACE Attendance[facility] [place] [facility] [place] [facility] [address] [place] [phone] 08/03/2025 9:00 AM EST [facility] [place] [facility] [address] [place] [address] 08/05/2025 9:00 AM EST [facility] [place] [facility] [address] [place] [address] 08/10/2025 P[facility] Attend[facility] [place] [facility] [address] [place] [address] 08/12/2025 9:00 AM EST [facility] [place] [facility] [address] [place] [address] 08/17/2025 [facility] Attend[facility] [place] [facility] [address] [place] [address] 08/19/2025 9:00 AM EST [facility] [place] [facility] [address] [place] [address] 08/24/2025 P[facility] Attend[facility] [place] [facility] [address] [place] [address] 08/26/2025 9:00 AM EST [facility] [place] [facility] [place] [facility] [address] [place] [address] 08/31/2025 PACE Attendance[facility] [place] [place] [facility] [address] [place] [phone] 09/02/2025 9:00 AM EDT [facility] Attend[facility] [place] [facility] [place] [facility] [address] [place] [address] 09/07/2025 [facility] Att[facility] [place] [facility] [address] [place] [address] 09/09/2025 9:00 AM EDT [facility] [place] [facility] [address] [place] [address] 09/14/2025 [facility] Att[facility] [place] [facility] [address] [place] [address] 09/16/2025 9:00 AM EDT [facility] Att[facility] [place] [facility] [address] [place] [address] 09/21/2025 [facility] Attend[facility] [place] [facility] [address] [place] [address] 09/23/2025 9:00 AM EDT [facility] Att[facility] [place] [facility] [address] [place] [address] 09/28/2025 [facility] Attend[facility] [place] [facility] [address] [place] [address] 09/30/2025 9:00 AM EDT P[facility] Attend[facility] [place] [facility] [place] [facility] [address] [place] [address] 10/05/2025 [facility] Att[facility] [place] [facility] [address] [place] [address] 10/07/2025 9:00 AM EDT [facility] Attend[facility] [place] [facility] [address] [place] [address] 10/12/2025 P[facility] Attend[facility] [place] [facility] [address] [place] [address] 10/14/2025 9:00 AM EDT [facility] Att[facility] [place] [facility] [address] [place] [address] 10/19/2025 [facility] Att[facility] [place] [facility] [address] [place] [address] 10/21/2025 9:00 AM EDT [facility] Att[facility] [place] [facility] [address] [place] [address] 10/26/2025 P[facility] Attend[facility] [place] [facility] [address] [place] [address] 10/28/2025 9:00 AM EDT [facility] Att[facility] [place] [facility] [address] [place] [address] 11/02/2025 [facility] Attend[facility] [place] [facility] [address] [place] [address] 11/04/2025 9:00 AM EDT [facility] Att[facility] [place] [facility] [address] [place] [address] 11/09/2025 [facility] Attend[facility] [place] [facility] [address] [place] [address] 11/11/2025 9:00 AM EDT [facility] Attend[facility] [place] [facility] [address] [place] [address] 11/16/2025 [facility] Att[facility] [place] [facility] [address] [place] [address] 11/18/2025 9:00 AM EDT [facility] Att[facility] [place] [facility] [address] [place] [address] 11/23/2025 P[facility] [place] [facility] [address] [place] [address] 11/25/2025 9:00 AM EDT [facility] [place] [facility] [address] [place] [phone] 11/30/2025 P[facility] Att[facility] [place] [facility] [address] [place] [address] 12/02/2025 9:00 AM EDT [facility] Att[facility] [place] [facility] [address] [place] [address] 12/07/2025 [facility] Att[facility] [place] [facility] [address] [place] [address] 12/09/2025 9:00 AM EDT [facility] Att[facility] [facility] [place] [facility] [address] [place] [address] 12/14/2025 [facility] Att[facility] [place] [facility] [address] [place] [address] 12/16/2025 9:00 AM EDT [facility] [place] [facility] [address] [place] [address] 12/21/2025 P[facility] [place] [facility] [address] [place] [address] 12/23/2025 9:00 AM EDT [facility] [place] [facility] [address] [place] [address] 12/28/2025 P[facility]end[facility] [place] [facility] [address] [place] [address] 12/30/2025 9:00 AM EDT [facility] [place] [facility] [address] [place] [address] 01/04/2026 [facility] [place] [facility] [address] [place] [phone] 01/06/2026 9:00 AM EDT [facility] [place] [facility] [address] [place] [phone] 01/11/2026 [facility] [place] [facility] [address] [place] [phone] 01/13/2026 9:00 AM EDT [facility] [place] [facility] [address] [place] [phone] 01/18/2026 [facility] [place] [facility] [address] [place] [phone] 01/20/2026 9:00 AM EDT [facility] [place] [facility] [address] [place] [phone] 01/25/2026 [facility] [place] [facility] [address] [place] [phone] 01/27/2026 9:00 AM EDT [facility] [place] [facility] [address] [place] [address] 02/01/2026 [facility] [place] [facility] [address] [place] [address] 02/03/2026 9:00 AM EDT [facility] [place] [facility] [address] [place] [address] 02/08/2026 [facility] [place] [facility] [address] [place] [address] 02/10/2026 9:00 AM EDT [facility] [place] [facility] [address] [place] [address] 02/15/2026 [facility] [place] [facility] [address] [place] [address] 02/17/2026 9:00 AM EDT [facility] [place] [facility] [address] [place] [phone] 02/22/2026 [facility] [place] [facility] [address] [place] [phone] 02/24/2026 9:00 AM EDT [facility] [place] [facility] [address] [place] [address] 03/03/2026 9:00 AM EDT [facility] [place] [facility] [address] [place] [address] 03/10/2026 9:00 AM EDT [facility] [place] [facility] [address] [place] [address] 03/17/2026 9:00 AM EDT [facility] [place] [facility] [address] [place] [address] 03/24/2026 9:00 AM EDT [facility] [place] [facility] [address] [place] [phone] 03/31/2026 9:00 AM EDT [facility] [address] [phone] 04/07/2026 9:00 AM EDT [facility] [address] [phone] 04/14/2026 9:00 AM EDT [facility] [address] [phone] 04/21/2026 9:00 AM EDT [facility] [address] [phone] documented as of this encounter Visit Diagnoses Not on filedocumented in this encounter Care Teams Transport Engineer Relationship Specialty Start Date End Date Dede Pimentel NP [address] [place] [id number] PCP - General Family Medicine 05/02/24 documented as of this encounter
--- OUTSIDE RECORDS SUMMARY | 2025-04-08 16:18 | XMS_ITS | Clinical Summary ---
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 03/16/2025 3:48 PM EDT BASIC METABOLIC PANEL STAT 03/16/2025 3:48 PM EDT CBC AND DIFFERENTIAL STAT 03/16/2025 3:[address] CERVICAL SPINE WITHOUT CONTRAST Routine 03/16/2025 3:[address] HEAD WITHOUT CONTRAST Routine 03/16/2025 3:30 PM EDT BI MAMMOGRAM OUTSIDE (NO INTERPRETATION) Routine 06/09/2019 12:05 AM EST PAP TEST Routine 09/12/2018 12:00 AM EDT from Last 3 Months or Most Recently Relevant to Health Maintenance Results * ECG 12-LEAD (03/16/2025 3:55 PM EDT) Ventricular Rate EKG/MIN 65 BPM [facility] Atrial Rate 65 BPM [facility] SC Interval 194 ms [facility] QRS Duration 106 ms [facility] QT Interval 446 ms [facility] QTC Interval 463 ms [facility] P [place] 59 degrees [facility] R Wave [place] 54 degrees [facility] T Wave [place] 35 degrees [facility] 03/16/2025 3:55 PM EDT 03/18/2025 9:43 AM EDT Narrative [facility] - 03/18/2025 9:43 AM EDT Normal sinus rhythm Normal ECG When compared with ECG of 25-Oct-2023 05:36, Aberrant conduction is no longer Present Vent. rate has decreased by 38 bpm Criteria for Anterior infarct are no longer Present Confirmed by José Manuel Eisenberg ([id number]) on 03/18/2025 9:43:00 AM Hermann Pacheco MD ECG ORDERABLES Final Resul t [facility] * Ethanol, blood (03/16/2025 3:48 PM EDT) ETHANOL <10 <10 mg/dL [facility] Blood 03/16/2025 3:48 PM EDT 03/16/2025 4:01 PM EDT Hermann Pacheco MD LAB BLOOD ORDERABLES Final Result [address] [address] * (ABNORMAL) LFTs (hepatic panel) (03/16/2025 3:48 PM EDT) ALKALINE PHOSPHATASE 107 39 - 117 U/L [facility] TOTAL BILIRUBIN 0.3 0.0 - 1.2 mg/dL [facility] DIRECT BILIRUBIN <0.1 0.0 - 0.2 mg/dL [facility] Bilirubin (Indirect) NOT CALCULATED 0 - 1.5 mg/dL [facility] AST 18 0 - 37 U/L [facility] ALT 12 0 - 40 U/L [facility] TOTAL PROTEIN 7.0 6.5 - 8.0 g/dL [facility] ALBUMIN 3.8(L) 3.9 - 4.8 g/dL [facility] GLOBULIN 3.2 1 - 4.8 g/dL [facility] A/G Ratio 1.19 1.00 - 4.80 RATIO [facility] Blood 03/16/2025 3:48 PM EDT 03/16/2025 4:01 PM EDT us Hermann Pacheco MD LAB BLOOD ORDERABLES Final Result [facility] [address] [place] [address] * (ABNORMAL) CBC and differential (03/16/2025 3:48 PM EDT) WBC 8.91 4.00 - 11.00 K/uL [facility] RBC 4.47 4.00 - 5.20 M/uL [facility] HGB 14.4 12.0 - 16.0 g/dL [facility] HCT 44.5 36.0 - 46.0 % [facility] PLT 320 150 - 450 K/uL [facility] MCV 99.6 80.0 - 100.0 fL [facility] MCH 32.2(H) 27.0 - 31.0 pg [facility] MCHC 32.4 32.0 - 36.0 g/dL [facility] RDW 13.6 11.5 - 14.5 % [facility] MPV 9.4 8.4 - 12.0 fL [facility] NRBC 0.00 0.00 /100 WBCs [facility] ABSOLUTE NRBC 0.00 0.00 K/uL [facility] DIFF METHOD Auto [facility] NEUTS 61.0 48.0 - 76.0 % [facility] LYMPHS 26.9 18.0 - 41.0 % [facility] MONOS 10.0 4.0 - 11.0 % [facility] EOS 1.1 0.0 - 5.0 % [facility] BASOS 0.8 0.0 - 1.5 % [facility] Granulocytes, immature (%) 0.2 0.0 - 0.9 % [facility] ABSOLUTE NEUTS 5.43 1.92 - 7.60 K/uL [facility] ABSOLUTE LYMPHS 2.40 0.72 - 4.10 K/uL [facility] ABSOLUTE MONOS 0.89 0.16 - 1.10 K/uL [facility] ABSOLUTE EOS 0.10 0.00 - 0.50 K/uL [facility] ABSOLUTE BASOS 0.07 0.00 - 0.15 K/uL [facility] Granulocytes, immature 0.02 0.00 - 0.09 K/uL [facility] Blood 03/16/2025 3:48 PM EDT 03/16/2025 4:01 PM EDT us Hermann Pacheco MD LAB BLOOD ORDERABLES Final Result Performing Organization Address City/[facility]/ZIP Co de Phone Number [address] [address] * (ABNORMAL) Acetaminophen level (03/16/2025 3:48 PM EDT) ACETAMINOPHEN <5.0(L) 15.0 - 30.0 ug/mL [facility] Blood 03/16/2025 3:48 PM EDT 03/16/2025 4:01 PM EDT Hermann Pacheco MD LAB BLOOD ORDERABLES Final Result [address] [address] * (ABNORMAL) Salicylates (03/16/2025 3:48 PM EDT) SALICYLATES <0.3(L) 2.8 - 19.9 mg/dL [facility] Blood 03/16/2025 3:48 PM EDT 03/16/2025 4:01 PM EDT Hermann Pacheco MD LAB BLOOD ORDERABLES Final Result [address] [address] * Basic metabolic panel (03/16/2025 3:48 PM EDT) SODIUM 136 133 - 146 mmol/L [facility] CHLORIDE 101 96 - 108 mmol/L [facility] POTASSIUM 4.3 3.3 - 5.1 mmol/L [facility] Comment:Specimen slightly he molyzed, result may be falsely elevated. CO2 25 21 - 35 mmol/L [facility] BUN 15 6 - 19 mg/dL [facility] CREATININE 0.90 0.5 - 1.5 mg/dL [facility] GLUCOSE 92 70 - 99 mg/dL [facility] CALCIUM 9.4 8.4 - 10.3 mg/dL [facility] EGFR 72 >59 mL/min/1.7 3m2 [facility] Comment:Estimated glomerular filtration rate calculated using the CKD-EPI refit equation. ANION GAP 14 10 - 20 mmol/L [facility] Blood 03/16/2025 3:48 PM EDT 03/16/2025 4:01 PM EDT Hermann Pacheco MD LAB BLOOD ORDERABLES Final Result [address] [address] * CT CERVICAL SPINE WITHOUT CONTRAST (03/16/2025 3:30 PM EDT) Anatomical Region Laterality Modality C-spine Computed Tomogra phy 03/16/2025 4:16 PM EDT Impressions 03/16/2025 4:30 PM EDT 1. No acute intracranial findings. 2. No acute fracture or traumatic malalignment of the cervical spine. Narrative 03/16/2025 4:[address] HEAD WITHOUT CONTRAST, CT CERVICAL SPINE WITHOUT CONTRAST Referring clinician's provided indication for this examination in [facility]: * Head trauma, minor (Age >= 65y) TECHNIQUE: CTs of the head and cervical spine were performed without intravenous contrast using tailored dose modulation techniques. Images were reconstructed in the axial, coronal, and sagittal planes. COMPARISON: MRI BRAIN (MEMORY LOSS) WITHOUT CONTRAST FINDINGS: HEAD: Brain Parenchyma: No midline shift, mass effect, parenchymal hemorrhage, or evidence of acute territorial infarct. 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 Ventricular System and Extra-Axial Spaces: Normal. No extra-axial fluid collections. Basal cisterns are patent. No hydrocephalus. Osseous and Extracranial Structures: No calvarial fracture or significant soft tissue hematoma. No significant paranasal sinus disease. No orbital abnormality. CERVICAL SPINE: Alignment and Vertebrae: Alignment is normal. Vertebral bodies and posterior elements are intact. Discs and Endplates: Normal. Other Findings: None. Procedure Note Michael Fuentes MD - 03/16/2025 CT HEAD WITHOUT CONTRAST, CT CERVICAL SPINE WITHOUT CONTRAST Referring clinician's provided indication for this examination in [facility]: *Head trauma, minor (Age >= 65y) TECHNIQUE: CTs of the head and cervical spine were performed withoutintravenous contrast using tailored dose modulation techniques. Imageswere reconstructed in the axial, coronal, and sagittal planes. COMPARISON: MRI BRAIN (MEMORY LOSS) WITHOUT CONTRAST FINDINGS: HEAD: Brain Parenchyma: No midline shift, mass effect, parenchymal hemorrhage,or evidence of acute territorial infarct. Chronic infarct in the rightbasal ganglia. Ventricular System and Extra-Axial Spaces: Normal. No extra-axial fluidcollections. Basal cisterns are patent. No hydrocephalus. Osseous and Extracranial Structures: No calvarial fracture or significantsoft tissue hematoma. No significant paranasal sinus disease. No orbitalabnormality. CERVICAL SPINE: Alignment and Vertebrae: Alignment is normal. Vertebral bodies andposterior elements are intact. Discs and Endplates: Normal. Other Findings: None. IMPRESSION: 1. No acute intracranial findings. 2. No acute fracture or traumatic malalignment of the cervical spine. Hermann Pacheco MD IM CT XSPECIALTY ORDERABLE S Final Result * CT HEAD WITHOUT CONTRAST (03/16/2025 3:30 PM EDT) Anatomical Region Laterality Modality Head Computed Tomogra phy 03/16/2025 4:16 PM EDT Impressions 03/16/2025 4:30 PM EDT 1. No acute intracranial findings. 2. No acute fracture or traumatic malalignment of the cervical spine. Narrative 03/16/2025 4:[address] HEAD WITHOUT CONTRAST, CT CERVICAL SPINE WITHOUT CONTRAST Referring clinician's provided indication for this examination in [facility]: * Head trauma, minor (Age >= 65y) TECHNIQUE: CTs of the head and cervical spine were performed without intravenous contrast using tailored dose modulation techniques. Images were reconstructed in the axial, coronal, and sagittal planes. COMPARISON: MRI BRAIN (MEMORY LOSS) WITHOUT CONTRAST FINDINGS: HEAD: Brain Parenchyma: No midline shift, mass effect, parenchymal hemorrhage, or evidence of acute territorial infarct. 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 Ventricular System and Extra-Axial Spaces: Normal. No extra-axial fluid collections. Basal cisterns are patent. No hydrocephalus. Osseous and Extracranial Structures: No calvarial fracture or significant soft tissue hematoma. No significant paranasal sinus disease. No orbital abnormality. CERVICAL SPINE: Alignment and Vertebrae: Alignment is normal. Vertebral bodies and posterior elements are intact. Discs and Endplates: Normal. Other Findings: None. Procedure Note Michael Fuentes MD - 03/16/2025 CT HEAD WITHOUT CONTRAST, CT CERVICAL SPINE WITHOUT CONTRAST Referring clinician's provided indication for this examination in [facility]: *Head trauma, minor (Age >= 65y) TECHNIQUE: CTs of the head and cervical spine were performed withoutintravenous contrast using tailored dose modulation techniques. Imageswere reconstructed in the axial, coronal, and sagittal planes. COMPARISON: MRI BRAIN (MEMORY LOSS) WITHOUT CONTRAST FINDINGS: HEAD: Brain Parenchyma: No midline shift, mass effect, parenchymal hemorrhage,or evidence of acute territorial infarct. Chronic infarct in the rightbasal ganglia. Ventricular System and Extra-Axial Spaces: Normal. No extra-axial fluidcollections. Basal cisterns are patent. No hydrocephalus. Osseous and Extracranial Structures: No calvarial fracture or significantsoft tissue hematoma. No significant paranasal sinus disease. No orbitalabnormality. CERVICAL SPINE: Alignment and Vertebrae: Alignment is normal. Vertebral bodies andposterior elements are intact. Discs and Endplates: Normal. Other Findings: None. IMPRESSION: 1. No acute intracranial findings. 2. No acute fracture or traumatic malalignment of the cervical spine. Hermann Pacheco MD IMG CT HEAD/NECK Final Resu lt * Mammogram Outside (No Interpretation) (06/09/2019 12:05 AM EST) Narrative SYSTEMGENERATED, DOCUMENTATION - 11/14/2019 10:36 AM EDT This study is for PACS storage only and not for interpretation. Provider Not In System PhD IMG OUTSIDE IMAGING W /OUT INTERPRETATION Final Result * Pap Smear (09/12/2018 12:00 AM EDT) 09/12/2018 09/13/2018 1:2 7 PM EDT Narrative SEE NARRATIVE - 09/19/2018 3:42 PM EDT [address] [address] Gas Flow Regulator: Jeannine Verma MD BUSINESS ASST Cytology Report FINAL DIAGNOSIS A. PAP SMEAR (SUREPATH) CE: SPECIMEN ADEQUACY: Satisfactory for evaluation; transformation zone present. INTERPRETATION: NEGATIVE FOR INTRAEPITHELIAL LESION OR MALIGNANCY. Reactive changes. Electronically Signed Out By: SARAH Pagan MD(ASCP) By his/her signature above, the pathologist listed as making the Final Diagnosis certifies that he/she has personally reviewed this case and confirmed or corrected the diagnosis. The Pap test is a screening test primarily for squamous cancers and precursors and has associated false-negative and false-positive results. New technologies such as liquid-based preparations may decrease but will not eliminate all false-negative results. Regular sampling and follow-up of unexplained clinical signs and symptoms are recommended to minimize false negative results. CLINICAL HISTORY Date of Last Menstrual Period: Not Provided Menstrual History: Unknown Other Clinical Conditions: Screening Pap SPECIMEN SOURCE A: PAP SMEAR (SUREPATH) CE Patient Name: JOSETASHTYSONLUCILA : 1960 (Age: 58) Sex: F Institution: [facility] Location: [facility] Date of Collection: 09/12/2018 Date of Reported: 09/19/2018 15:42 Results to: June Rodriguez June Rodriguez RECEIVING MANAGER CYTOLOGY ORDERABLES Fin al Result SEE NARRATIVE from Last 3 Months or Most Recently Relevant to Health Maintenance Insurance [address] [place] [address] [facility] [place] [address] [facility] [place] [address] [facility] [address] [place] [id number] [place] [address] [facility] Advance Directives For more information, please contact: [phone] (9AM - 5PM [facility], Sunday-Sunday) Documents on File Type Date Recorded Patient [facility]co Expl [facility] Healthcare Proxy 10/13/2020 4:08 PM HCP 10/29/16 * Full Code (Latest Code Status on File) Date Activated Date Inactivated Comments 10/25/2023 10:11 AM Question Answer Comments Code Status Confirmed With: Patient * Full Code Date Activated Date Inactivated Comments 02/04/2023 1:44 PM 10/25/2023 10:11 AM Question Answer Comments Code Status Confirmed With: Patient * Full Code Date Activated Date Inactivated Comments 08/25/2022 4:38 AM 02/04/2023 1:44 PM Question Answer Comments Code Status Confirmed With: Patient Code Status Communicated To: Inpatient Attending * Full Code Date Activated Date Inactivated Comments 05/04/2021 12:23 AM 08/25/2022 4:38 AM Question Answer Comments Code Status Confirmed With: Patient Code Status Communicated To: Inpatient Attending * Full Code Date Activated Date Inactivated Comments 10/12/2020 12:01 AM 05/04/2021 12:23 AM Question Answer Comments Code Status Confirmed With: Patient Healthcare Agents on File Name Relationship Healthcare Agent [facility] p Communication Jayda Bales .Primary Health Care Agent (Proxy form on file) Rita Cruz Daughter Alternate Health care Agent (Proxy form on file) Care Teams Medical Nurse Relationship Specialty Start Date End Date Pcp, Unknown PCP - General 03/16/25 Additional Source Comments The information contained in this document represents components of the legal health record. It is not the complete legal health record.Located Within [facility]
--- OUTSIDE RECORDS SUMMARY | 2025-04-08 16:18 | XMS_ITS | Encounter Summary ---
Author Organization [facility] Address [address] [place] [address] Phone Care Team Providers Care Shredder Tender Peat Name Role Phone Pcp, Unknown Primary Care Provider Unavailabl e Encounter Details Date Type Department Care Team (Late st Contact Info) Description 03/16/2025 Procedure Pass [facility], Ct Scan - [address] [address] Social History Tobacco Use Types Packs/Day Years [...] documented as of this encounter Care Teams Shredder Tender Peat Relationship Specialty Start Date End Date Pcp, Unknown PCP - General 03/16/25 documented as of this encounter Additional Source Comments The information contained in this document represents components of the legal health record. It is not the complete legal health record.[facility]
--- OUTSIDE RECORDS SUMMARY | 2025-04-08 16:18 | XMS_ITS | Encounter Summary ---
Author Organization [facility] Address [address] [place] [address] Phone Care Team Providers Care Pulling Unit Operator Name Role Phone Pcp, Unknown Primary Care Provider Unavailabl e Encounter Details Date Type Department Care Team (Late st Contact Info) Description 03/16/2025 Procedure Pass [facility], Ct Scan - [address] [address] Social History Tobacco Use Types Packs/Day Years [...] documented as of this encounter Care Teams Pulling Unit Operator Relationship Specialty Start Date End Date Pcp, Unknown PCP - General 03/16/25 documented as of this encounter Additional Source Comments The information contained in this document represents components of the legal health record. It is not the complete legal health record.[facility]
--- OUTSIDE RECORDS SUMMARY | 2025-04-08 16:18 | XMS_ITS | Encounter Summary ---
Author Organization [facility] Address [address] [place] [address] Care Team Providers Care Screen Printer Helper Name Role Phone Dede Pimentel FILTER TANK TENDER HELPER Primary Care Provider [phone] Reason for Visit * Reason Onset Date Comments Clinical 11/15/2024 Participant call ed inquiring about xray results. Message sent over to mainframe consultant provider for further f/u. Encounter Details Date Type Department Care Team (Late st Contact Info) Description 11/15/2024 FILLMORE On-Call [facility] [address] [place] [address] Dede Pimentel NP 200 [facility] [address] [place] [address] Social History Tobacco Use Types Packs/Day Years [...] EDT Clinical Support [facility] [place] [address] [place] [address] 04/13/2025 PACE Attendance[facility] [facility] [place] [facility] [address] [place] [phone] 04/13/2025 7:30 AM EDT PACE Home Care / PACE Home Visit [facility] [place] [facility] [address] [place] [phone] Cheryle Pryor 04/13/2025 9:00 AM EDT PACE Attendance/Day Center [facility] [place] [facility] Day [address] [phone] 04/14/2025 7:30 AM EDT PACE Home Care / [facility] [place] [facility] [address] [place] [phone] Cheryle Pryor 04/14/2025 10:30 AM EDT PACE Home Care / PACE Home Visit [facility] [place] [facility] [address] [place] [phone] Cheryle Pryor 04/14/2025 1:00 PM EDT Clinical Support Lung Screening Program - [address] [place] [phone] 04/15/2025 7:30 AM EDT PACE Home Care / [facility] [place] [facility] [address] [place] [phone] Cheryle Pryor 04/15/2025 9:00 AM EDT [facility] Attend[facility] [facility] [place] [facility] [address] [place] [phone] 04/16/2025 7:30 AM EDT PACE Home Care / [facility] [place] [facility] [address] [place] [address] Cheryle Pryor 04/17/2025 7:30 AM EDT PACE Home Care / [facility] [place] [facility] [address] [place] [address] Shawna Lebron 04/17/2025 10:30 AM EDT PACE Home Care / [facility] [place] [facility] [address] [place] [phone] Jhoana Grijalva 04/18/2025 7:30 AM EDT PACE Home Care / [facility] [place] [facility] [address] [place] [phone] Jhoana Grijalva 04/19/2025 7:30 AM EDT PACE Home Care / [facility] [place] [facility] [address] [place] [phone] Jhoana Grijalva 04/20/2025 P[facility] Att[facility]ance[facility] [facility] [place] [facility] [address] [place] [phone] 04/20/2025 7:30 AM EDT PACE Home Care / [facility] [place] [facility] [address] [place] [phone] Cheryle Pryor 04/20/2025 9:00 AM EDT [facility] Att[facility] [place] [facility] [address] [place] [phone] 04/21/2025 7:30 AM EDT PACE Home Care / [facility] [place] [facility] [address] [place] [phone] Cheryle Pryor 04/21/2025 10:30 AM EDT PACE Home Care / [facility] [place] [facility] [address] [place] [phone] Cheryle Pryor 04/22/2025 7:30 AM EDT PACE Home Care / [facility] Visit [facility] [place] [facility] [address] [place] [address] Cheryle Pryor 04/22/2025 9:00 AM EDT [facility] Att[place] [facility] [place] [facility] [address] [place] [phone] 04/23/2025 7:30 AM EDT PACE Home Care / [facility] Visit [facility] [place] [facility] [address] [place] [phone] Cheryle Pryor 04/24/2025 11:30 AM EDT PACE Home Care / [facility] Visit [facility] [place] [facility] [address] [place] [phone] Juanito Wassreman 04/25/2025 7:30 AM EDT PACE Home Care / [facility] [place] [facility] [address] [place] [phone] Cheryle Pryor 04/26/2025 7:30 AM EST PACE Home Care / [facility] Visit [facility] [place] [facility] [address] [place] [phone] Cheryle Pryor 04/27/2025 PACE Attendance[place] [facility] [place] [facility] [address] [place] [phone] 04/27/2025 7:30 AM EST PACE Home Care / [facility] [place] [facility] [address] [place] [phone] Cheryle Pryor 04/27/2025 9:00 AM EST [facility] Att[facility] [facility] [place] [facility] [address] [place] [phone] 04/28/2025 7:30 AM EST PACE Home Care / [facility] [place] [facility] [address] [place] [address] Cheryle Pryor 04/28/2025 10:30 AM EST PACE Home Care / [facility] Visit [facility] [place] [facility] [address] [place] [address] Cheryle Pryor 04/29/2025 7:30 AM EST PACE Home Care / [facility] [place] [facility] [address] [place] [address] Cheryle Pryor 04/29/2025 9:00 AM EST [facility] [facility] [place] [facility] [address] [place] [address] 04/30/2025 7:30 AM EST PACE Home Care / [facility] [place] [facility] [address] [place] [phone] Cheryle Pryor 05/01/2025 7:30 AM EST PACE Home Care / [facility] Visit [facility] [place] [facility] [address] [place] [phone] Shawna Lebron 05/01/2025 10:30 AM EST PACE Home Care / [facility] Visit [facility] [place] [facility] [address] [place] [phone] Jhoana Grijalva 05/02/2025 7:30 AM EST PACE Home Care / [facility] Visit [facility] [place] [facility] [address] [place] [phone] Jhoana Grijalva 05/03/2025 7:30 AM EST PACE Home Care / [facility] [place] [facility] [address] [place] [phone] Jhoana Grijalva 05/04/2025 [facility] Att[facility]ance[facility] [facility] [place] [facility] [address] [place] [address] 05/04/2025 7:30 AM EST PACE Home Care / [facility] [place] [facility] [address] [place] [phone] Cheryle Pryor 05/04/2025 9:00 AM EST [facility] Att[facility] [facility] [place] [facility] [address] [place] [address] 05/05/2025 7:30 AM EST PACE Home Care / [facility] [place] [facility] [address] [place] [phone] Cheryle Pryor 05/05/2025 10:30 AM EST PACE Home Care / [facility] [place] [facility] [address] [place] [phone] Cheryle Pryor 05/06/2025 7:30 AM EST PACE Home Care / [facility] [place] [facility] [address] [place] [phone] Cheryle Pryor 05/06/2025 9:00 AM EST [facility] Att[facility] [facility] [place] [facility] [address] [place] [phone] 05/07/2025 7:30 AM EST PACE Home Care / [facility] Visit [facility] [place] [facility] [address] [place] [phone] Cheryle Pryor 05/07/2025 9:00 AM EST Appointment [facility] [address] [place] [phone] Rambo Barlow MD [address] [address] 05/08/2025 7:30 AM EST PACE Home Care / [facility] [place] [facility] [address] [place] [address] Shawna Lebron 05/08/2025 10:30 AM EST PACE Home Care / [facility] Visit [facility] [place] [facility] [address] [place] [phone] Jhoana Grijalva 05/09/2025 7:30 AM EST PACE Home Care / [facility] [place] [facility] [address] [place] [phone] Cheryle Pryor 05/10/2025 7:30 AM EST PACE Home Care / [facility] [place] [facility] [address] [place] [phone] Cheryle Pryor 05/11/2025 P[facility] Attendance[facility] [facility] [place] [facility] [address] [place] [phone] 05/11/2025 7:30 AM EST PACE Home Care / [facility] [place] [facility] [address] [place] [phone] Cheryle Pryor 05/11/2025 9:00 AM EST [facility] Att[facility] [place] [facility] [address] [place] [phone] 05/12/2025 7:30 AM EST PACE Home Care / [facility] [place] [facility] [address] [place] [phone] Cheryle Pryor 05/12/2025 10:30 AM EST PACE Home Care / [facility] [place] [facility] [address] [place] [phone] Cheryle Pryor 05/13/2025 7:30 AM EST PACE Home Care / [facility] [place] [facility] [address] [place] [phone] Cheryle Pryor 05/13/2025 9:00 AM EST [facility] Att[facility] [facility] [place] [facility] [address] [place] [phone] 05/14/2025 7:30 AM EST PACE Home Care / [facility] [place] [facility] [address] [place] [phone] Cheryle Pryor 05/15/2025 7:30 AM EST PACE Home Care / [facility] [place] [facility] [address] [place] [phone] Shawna Lebron 05/15/2025 10:30 AM EST PACE Home Care / [facility] [place] [facility] [address] [place] [phone] Jhoana Grijalva 05/16/2025 7:30 AM EST PACE Home Care / [facility] [place] [facility] [address] [place] [phone] Jhoana Grijalva 05/17/2025 7:30 AM EST PACE Home Care / [facility] [place] [facility] [address] [place] [phone] Jhoana Grijalva 05/18/2025 P[place] Attendance[facility] [facility] [place] [facility] [address] [place] [phone] 05/18/2025 7:30 AM EST PACE Home Care / [facility] [place] [facility] [address] [place] [phone] Cheryle Pyror 05/18/2025 9:00 AM EST [facility] Att[facility] [facility] [place] [facility] [address] [place] [phone] 05/19/2025 7:30 AM EST PACE Home Care / [facility] [place] [facility] [address] [place] [address] Cheryle Pryor 05/19/2025 10:30 AM EST PACE Home Care / [facility] [place] [facility] [address] [place] [phone] Cheryle Pryor 05/20/2025 7:30 AM EST PACE Home Care / [facility] Visit [facility] [place] [facility] [address] [place] [phone] Cheryle Pryor 05/20/2025 9:00 AM EST P[facility] Attend[facility] [facility] [place] [facility] [address] [place] [phone] 05/21/2025 7:30 AM EST PACE Home Care / [facility] [place] [facility] [address] [place] [phone] Cheryle Pryor 05/22/2025 7:30 AM EST PACE Home Care / [facility] Visit [facility] [place] [facility] [address] [place] [phone] Shawna Lebron 05/22/2025 10:30 AM EST PACE Home Care / [facility] Visit [facility] [place] [facility] [address] [place] [phone] Jhoana Grijalva 05/23/2025 7:30 AM EST PACE Home Care / [facility] [place] [facility] [address] [place] [phone] Cheryle Pryor 05/24/2025 7:30 AM EST PACE Home Care / [facility] Visit [facility] [place] [facility] [address] [place] [phone] Cheryle Pryor 05/25/2025 PACE Attendance[facility] [facility] [place] [facility] [address] [place] [address] 05/25/2025 7:30 AM EST PACE Home Care / [facility] [place] [facility] [address] [place] [phone] Cheryle Pryor 05/25/2025 9:00 AM EST [facility] Att[facility] [place] [facility] [address] [place] [address] 05/26/2025 7:30 AM EST PACE Home Care / [facility] [place] [facility] [address] [place] [phone] Cheryle Pryor 05/26/2025 10:30 AM EST PACE Home Care / [facility] [place] [facility] [address] [place] [phone] Cheryle Pryor 05/27/2025 7:30 AM EST PACE Home Care / [facility] Visit [facility] [address] [place] [phone] Cheryle Pryor 05/27/2025 9:00 AM EST P[facility] Attend[facility] [facility] [place] [facility] [address] [place] [phone] 05/28/2025 7:30 AM EST PACE Home Care / [facility] [address] [place] [phone] Cheryle Pryor 05/29/2025 7:30 AM EST PACE Home Care / [facility] [address] [place] [phone] Shawna Lebron 05/29/2025 10:30 AM EST PACE Home Care / [facility] [address] [place] [phone] Jhoana Grijalva 05/30/2025 7:30 AM EST PACE Home Care / [facility] [address] [place] [address] Jhoana Grijalva 05/31/2025 7:30 AM EST PACE Home Care / [facility] [place] [facility] [address] [place] [address] Jhoana Grijalva 06/01/2025 [facility] Attendance[facility] [facility] [place] [facility] [address] [place] [address] 06/01/2025 7:30 AM EST PACE Home Care / [facility] [address] [place] [phone] Cheryle Pryor 06/01/2025 9:00 AM EST [facility] Att[facility] [place] [facility] [address] [place] [phone] 06/02/2025 7:30 AM EST PACE Home Care / [facility] [address] [place] [phone] Cheryle Pryor 06/02/2025 10:30 AM EST PACE Home Care / [facility] [place] [facility] [address] [place] [phone] Cheryle Pryor 06/03/2025 7:30 AM EST PACE Home Care / [facility] [place] [facility] [address] [place] [phone] Cheryle Pryor 06/03/2025 9:00 AM EST [facility] Att[facility] [facility] [place] [facility] [address] [place] [phone] 06/04/2025 7:30 AM EST PACE Home Care / [facility] [address] [place] [phone] Cheryle Pryor 06/05/2025 7:30 AM EST PACE Home Care / [facility] [address] [place] [address] Shawna Lebron 06/05/2025 10:30 AM EST PACE Home Care / [facility] [address] [place] [address] Jhoana Grijalva 06/06/2025 7:30 AM EST PACE Home Care / [facility] [place] [facility] [address] [place] [address] Cheryle Pyror 06/07/2025 7:30 AM EST PACE Home Care / [facility] [place] [facility] [address] [place] [address] Cheryle Pryor 06/08/2025 P[facility] Attendance[facility] [facility] [place] [facility] [address] [place] [phone] 06/08/2025 9:00 AM EST [facility] Att[facility] [place] [facility] [address] [place] [phone] 06/10/2025 9:00 AM EST [facility] [facility] [place] [facility] [address] [place] [phone] 06/15/2025 PACE Attendance[facility] [place] [facility] [address] [place] [phone] 06/15/2025 9:00 AM EST [facility] Att[facility] [place] [facility] [address] [place] [phone] 06/17/2025 9:00 AM EST [facility] Att[facility] [place] [facility] [address] [place] [phone] 06/22/2025 PACE Attendance[facility] [place] [facility] [address] [place] [address] 06/22/2025 9:00 AM EST P[facility] Attend[facility] [place] [facility] [address] [place] [phone] 06/24/2025 9:00 AM EST P[facility] Attend[facility] [place] [facility] [address] [place] [phone] 06/29/2025 PACE Attendance[facility] [place] [facility] [address] [place] [phone] 06/29/2025 9:00 AM EST P[facility] Attend[facility] [place] [facility] [address] [place] [phone] 07/01/2025 9:00 AM EST P[facility] Att[facility] [place] [facility] [address] [place] [phone] 07/06/2025 PACE Attendance[facility] [place] [facility] [address] [place] [phone] 07/06/2025 9:00 AM EST P[facility] Att[facility] [place] [facility] [address] [place] [phone] 2025 9:00 AM EST P[facility] Attend[facility] [place] [facility] [address] [place] [phone] 07/13/2025 PACE Attendance[facility] [place] [facility] [address] [place] [phone] 07/13/2025 9:00 AM EST P[facility] Attend[facility] [place] [facility] [address] [place] [phone] 07/15/2025 9:00 AM EST P[facility] Att[facility] [place] [facility] [address] [place] [phone] 07/20/2025 PACE Attendance[facility] [place] [facility] [address] [place] [address] 07/20/2025 9:00 AM EST [facility] [place] [facility] [address] [place] [address] 07/22/2025 9:00 AM EST [facility] [place] [facility] [address] [place] [address] 07/27/2025 PACE Attendance[facility] [place] [facility] [address] [place] [phone] 07/27/2025 9:00 AM EST [facility] Attend[facility] [place] [facility] [address] [place] [address] 07/29/2025 9:00 AM EST [facility] [place] [facility] [address] [place] [address] 08/03/2025 PACE Attend[facility] [place] [facility] [address] [place] [phone] 08/03/2025 9:00 AM EST P[facility] Attend[facility] [place] [facility] [address] [place] [phone] 08/05/2025 9:00 AM EST [facility] Att[facility] [place] [facility] [address] [place] [address] 08/10/2025 PACE Attendance[facility] [place] [facility] [address] [place] [phone] 08/12/2025 9:00 AM EST P[facility] Att[facility] [place] [facility] [address] [place] [phone] 08/17/2025 PACE Attendance[facility] [place] [facility] [address] [place] [address] 08/19/2025 9:00 AM EST P[facility] Attend[facility] [place] [facility] [address] [place] [address] 08/24/2025 PACE Att[facility] [place] [facility] [address] [place] [address] 08/26/2025 9:00 AM EST [facility] Att[facility] [place] [facility] [address] [place] [address] 08/31/2025 PACE Attendance[facility] [place] [facility] [address] [place] [phone] 09/02/2025 9:00 AM EDT PACE Attendance[facility] [place] [facility] [address] [place] [phone] 09/07/2025 PACE Attendance[facility] [place] [facility] [address] [place] [phone] 09/09/2025 9:00 AM EDT P[facility] Attend[facility] [place] [facility] [address] [place] [phone] 09/14/2025 PACE Attendance[facility] [place] [facility] [address] [place] [phone] 09/16/2025 9:00 AM EDT P[facility] Att[facility] [place] [facility] [address] [place] [address] 09/21/2025 PACE Attend[facility] [place] [facility] [address] [place] [phone] 09/23/2025 9:00 AM EDT P[facility] Attend[facility] [place] [facility] [address] [place] [address] 09/28/2025 PACE Attend[facility] [place] [facility] [address] [place] [address] 09/30/2025 9:00 AM EDT P[facility] Attend[facility] [place] [facility] [address] [place] [address] 10/05/2025 PACE Att[facility] [place] [facility] [address] [place] [address] 10/07/2025 9:00 AM EDT P[facility] Attend[facility] [place] [facility] [address] [place] [address] 10/12/2025 PACE Attend[facility] [place] [facility] [address] [place] [phone] 10/14/2025 9:00 AM EDT P[facility] Attend[facility] [place] [facility] [address] [place] [phone] 10/19/2025 PACE Attend[facility] [place] [facility] [address] [place] [phone] 10/21/2025 9:00 AM EDT P[facility] Attend[facility] [place] [facility] [address] [place] [phone] 10/26/2025 PACE Attend[facility] [place] [facility] [address] [place] [phone] 10/28/2025 9:00 AM EDT P[facility] Attend[facility] [place] [facility] [address] [place] [phone] 11/02/2025 PACE Attend[facility] [place] [facility] [address] [place] [phone] 11/04/2025 9:00 AM EDT P[facility] Attend[facility] [place] [facility] [address] [place] [phone] 11/09/2025 PACE Attend[facility] [place] [facility] [address] [place] [address] 11/11/2025 9:00 AM EDT P[facility] Att[facility] [place] [facility] [address] [place] [phone] 11/16/2025 PACE Attend[facility] [place] [facility] [address] [place] [phone] 11/18/2025 9:00 AM EDT [facility] Attend[facility] [place] [facility] [address] [place] [phone] 11/23/2025 PACE Attend[facility] [place] [facility] [address] [place] [phone] 11/25/2025 9:00 AM EDT P[facility] Attend[facility] [place] [facility] [address] [place] [phone] 11/30/2025 PACE Attend[facility] [place] [facility] [address] [place] [phone] 12/02/2025 9:00 AM EDT P[facility] Attend[facility] [place] [facility] [address] [place] [phone] 12/07/2025 PACE Attend[facility] [place] [facility] [address] [place] [phone] 12/09/2025 9:00 AM EDT P[facility] Attend[facility] [place] [facility] [address] [place] [phone] 12/14/2025 PACE Attend[facility] [place] [facility] [address] [place] [phone] 12/16/2025 9:00 AM EDT P[facility] Attend[facility] [place] [facility] [address] [place] [phone] 12/21/2025 PACE Attendance[facility] [place] [facility] [address] [place] [phone] 12/23/2025 9:00 AM EDT P[facility] Attend[facility] [place] [facility] [address] [place] [address] 12/28/2025 PACE Attend[facility] [place] [facility] [address] [place] [address] 12/30/2025 9:00 AM EDT P[facility] Att[facility] [place] [facility] [address] [place] [address] 01/04/2026 P[facility] [place] [facility] [address] [place] [address] 01/06/2026 9:00 AM EDT [facility] [address] [place] [address] 01/11/2026 [facility] Attend[facility] [address] [place] [phone] 01/13/2026 9:00 AM EDT [facility] Attend[facility] [place] [facility] [address] [place] [phone] 01/18/2026 [facility] Attend[facility] [place] [facility] [address] [place] [phone] 01/20/2026 9:00 AM EDT [facility] Att[facility] [place] [facility] [address] [place] [address] 01/25/2026 [facility] [place] [facility] [address] [place] [phone] 01/27/2026 9:00 AM EDT [facility] Attend[facility] [place] [facility] [address] [place] [phone] 02/01/2026 [facility] Attend[facility] [place] [facility] [address] [place] [address] 02/03/2026 9:00 AM EDT [facility] Att[facility] [place] [facility] [address] [place] [address] 02/08/2026 [facility] Attend[facility] [place] [facility] [address] [place] [phone] 02/10/2026 9:00 AM EDT [facility] Att[facility] [place] [facility] [address] [place] [address] 02/15/2026 [facility] Attend[facility] [place] [facility] [address] [place] [phone] 02/17/2026 9:00 AM EDT [facility] Att[facility] [place] [facility] [address] [place] [phone] 02/22/2026 [facility] Attendance[facility] [place] [facility] [address] [place] [phone] 02/24/2026 9:00 AM EDT [facility] Attend[facility] [place] [facility] [address] [place] [phone] 03/03/2026 9:00 AM EDT [facility] Attend[facility] [place] [facility] [address] [place] [phone] 03/10/2026 9:00 AM EDT [facility] Attend[facility] [place] [facility] [address] [place] [phone] 03/17/2026 9:00 AM EDT [facility] Attend[facility] [place] [facility] [address] [place] [address] 03/24/2026 9:00 AM EDT [facility] Attend[facility] [place] [facility] [address] [place] [phone] 03/31/2026 9:00 AM EDT PACE Attendance/Day Center [facility] [address] [place] [phone] 04/07/2026 9:00 AM EDT P[facility] Attendance/Day Center [address] [address] 04/14/2026 9:00 AM EDT PACE Attendance/Day Center [address] [phone] 04/21/2026 9:00 AM EDT P[facility] Attendance/Day Center [address] [phone] documented as of this encounter Visit Diagnoses Not on filedocumented in this encounter Care Teams Screen Printer Helper Relationship Specialty Start Date End Date Dede Pimentel NP [address] [place] [id number] PCP - General Family Medicine 05/02/24 documented as of this encounter
--- NOTE | 2025-04-08 18:29 | PC.NURSE ---
med rec done with list sent from [facility]
--- NOTE | 2025-04-08 18:50 | PC.NURSE ---
ambulation trial done on the unit, pt maintained sat of 92-94% on room air during ambulation
[2025-04-08 20:00] VITALS: RESP 14
--- NOTE | 2025-04-08 20:31 | PC.NURSE ---
Assumed care of patient at 1845, patient appears to be in no apparent distress at this time, resting in bed after ambulating with steady gait with walker to the bathroom. Continue plan of care for PT/CM follow up
[2025-04-08 20:35] VITALS: BP 140/96; PULSE 63; RESP 18; TEMP 36.4; O2SAT 94
--- NOTE | 2025-04-08 21:18 | MHC.CM.ED ---
Addendum entered by Aissatou Recio 04/08/25 21:39: Pt attends [facility] Day care at [facility] twice a week. Has a friend make meals and her daughter orders food delivery for her. She has a GREEN ENERGY MARKETING ANALYST twice a week, once for housekeeping and once for showering assistance. Addendum entered by Aissatou Recio 04/08/25 21:29: HCP verified. In medical record. Mary Anne is a certified social workers in health care at [facility] ([phone]). Please call her to verify if patient can have PT at [facility]. Pt needs inpatient therapy. PT pending. food and beverage assistant Werner Toni ([phone]). Ambulation trial- patient ambulated with O2Sat monitoring. 92-94% on RA. Pt not using any oxygen at this time. Pt had 3 IPLOC admissions at [facility] this year. Original Note: CM met with patient and her daughter/HCP Rita Escudero ([phone]) to discuss discharge planning. Pt lives alone, uses a rollator. Pt has home O2, but states she hasn't used it in months. States she is SOB with ambulation. Provider notified. Ambulation trial ordered. Pt is a smoker. Provider made aware. Nicotine patch ordered. Pt was at [facility] with falls and UTI. Discharged to [facility] yesterday. Pt refused to stay and left AMA today. Family felt patient should be evaluated and brought her to [facility] ED. Pt was cleared by the CARE team with no safety concerns. Pt admits to falling frequently and needs rehab, but does not want to return to [facility]. Pt was very unhappy with facility. Pt is unsure if she will accept STR, but is willing to have an evaluation. Pt is requesting to have STR at [facility]. She requests CM call [facility] in the morning to see if she can go there. CM is unsure if they provide inpatient rehab. Pt is agreeable to STR referrals and will consider STR pending offers if [facility] cannot help her. Pt daughter is concerned that patient should have rehab in a facility to regain her strength and mobility. This was explained to the patient. Local referrals will be placed.
--- NOTE | 2025-04-08 22:01 | PC.NURSE ---
Awaiting provider to order nighttime meds
--- NOTE | 2025-04-08 22:30 | PHA.MEDREC ---
Pharmacy Consult ? Medication Reconciliation Pharmacy has reviewed the medication reconciliation done by nursing, also [phone]. Patient is supposed to start estradiol vag cream on 04/10/25. Prazosin 2 mg at bedtime for 2 days (start on 04/07/25) but there's no last administered note for it then 1 mg at bedtime for 7 days (start on 04/09/25).
[2025-04-08 23:00] VITALS: BP 140/96
--- NOTE | 2025-04-08 23:07 | PC.NURSE ---
Night meds: This RN charted all night meds as unscheduled due to provider ordering them all to start tomorrow (provider okayed admin for tonight)
[2025-04-08 23:30] VITALS: PULSE 63; RESP 18; O2SAT 96
--- NOTE | 2025-04-08 23:31 | PC.NURSE ---
Pt reporting shortness of breath and nausea, encouraged deep breathing and provided with emesis bag. VSS at this time
[2025-04-09 05:35] VITALS: PULSE 69; RESP 16; O2SAT 95
[2025-04-09] MEDS: buPROPion HCl XL 150 MG TAB.ER.24H PO (08:37)
--- NOTE | 2025-04-09 08:58 | PC.NURSE ---
Assumed care, report received. Pt is seen by PT this am for ambulation eval. Pt reprots having a bad DEJESUS after the walk, she is given her AM meds and a prn. breakfast is provided.
[2025-04-09 09:10] VITALS: BP 116/81; PULSE 73; RESP 16; TEMP 36.1; O2SAT 93
[2025-04-09] MEDS: Metoprolol Succinate ER 25 MG TAB.ER.24H PO (09:11)
--- NOTE | 2025-04-09 09:18 | MHC.CM.ED ---
Patient remains in ER overflow. Physical therapy eval is pending. Essence Ramos made aware that inpatient psych is not indicated at this time. Crisis eval sent via fax. Continue to monitor for d/c needs.
--- NOTE | 2025-04-09 09:59 | MHC.CM.ED ---
Received telephone call from Essence Ramos. Kaitlynn Ramos would like to have a conference telephone call with the patient at 1030am. ER call in telephone number provided. Patient and Eve GIL aware. Continue to monitor for d/c needs.
--- NOTE | 2025-04-09 11:35 | MHC.CM.ED ---
Received telephone call from Essence PRITCHARD. After having conference call with patient and Care Team, STR referrals to [facility], [facility] and [facility] will be pursued. [facility] Kaitlynn PRITCHARD requested OT eval as well. OT eval ordered. Referral sent to 3 SNF. Continue to monitor for d/c needs.
[2025-04-09 14:46] VITALS: BP 132/89; PULSE 70; RESP 17; TEMP 36.2; O2SAT 94
--- NOTE | 2025-04-09 15:35 | PC.NURSE ---
Patient had 2 bowel movements since she got to overflow.
--- NOTE | 2025-04-09 18:01 | MHC.CM.ED ---
[facility] offered a bed and patient accepted. Jennifer Pacheco at [facility] aware. Awaiting auth. Probable discharge 03/11 in am after auth obtained. Pt understands and is agreeable.
[2025-04-09 21:11] VITALS: BP 128/76
[2025-04-09 22:00] VITALS: BP 107/69; PULSE 66; RESP 18; TEMP 36.3; O2SAT 95
[2025-04-10 05:35] VITALS: BP 121/65; PULSE 74; RESP 14; TEMP 36.4; O2SAT 96
--- NOTE | 2025-04-10 07:24 | PC.NURSE ---
Accepted care of pt. Pt A&O X4 NAD No complaints. Watching TV.
[2025-04-10 08:47] VITALS: BP 114/73; BP 121/65; PULSE 74; PULSE 80; RESP 17; TEMP 36.5; O2SAT 90
[2025-04-10] MEDS: Metoprolol Succinate ER 25 MG TAB.ER.24H PO (08:47)
[2025-04-10] MEDS: buPROPion HCl XL 150 MG TAB.ER.24H PO (08:48)
[2025-04-10] MEDS: Fluticasone/Umeclidinium/Vilanterol 100/62.5/25 BLST.W.DEV 1 PUFF INHALE (10:42)
[2025-04-10 10:55] VITALS: BP 114/73
--- NOTE | 2025-04-10 11:16 | MHC.CM.ED ---
Patient remains in ER overflow. Received notification from Jennifer of [facility] that ins auth has bee provided. Kaitlynn Chair Van booked for 1pm. Patient, Kecia GIL, and Karen ROWLEY aware. Continue to monitor for d/c needs.
[2025-04-10 12:02] VITALS: BP 118/72; PULSE 63; RESP 16; TEMP 36.2; O2SAT 93
[2025-04-10 12:10] LABS: Glucose, Whole Blood 131 mg/dL (60-115)
--- NOTE | 2025-04-10 12:11 | PC.NURSE ---
Pt OOB to commode- Voiding well and moved joann X2 today. Pt with poor appetite. Report called to Marilou at [facility]. Pt VSS No complaints NAD.
[2025-04-10 13:04] VITALS: BP 118/72; PULSE 63; RESP 16; TEMP 36.2; O2SAT 93
== END 2025-04-10 13:05 | disposition home or self-care (01) ==
PROVIDERS: Physician Assistant Medical; Emergency Provider Emergency Medicine; PCP Nurse Practitioner Family
DX: N39.0 Urinary tract infection, site not specified (principal); F91.9 Conduct disorder, unspecified; F17.200 Nicotine dependence, unspecified, uncomplicated; Z71.6 Tobacco abuse counseling; E11.8 Type 2 diabetes mellitus with unspecified complications; F31.9 Bipolar disorder, unspecified; J44.9 Chronic obstructive pulmonary disease, unspecified; Z99.81 Dependence on supplemental oxygen; Z79.899 Other long term (current) drug therapy
CPT/HCPCS: 36415; 80053; 80143; 80179; 80307; 81001; 82947; 83690; 83735; 85025; 87086; 97162; 97165; 99285; S9485